=== PATIENT | female | born 1980 | race Caucasian/White ===

== ENCOUNTER 2025-06-06 09:24 | Inpatient (IN) | payer OTHER, SELFPAY ==
[2025-06-06] VITALS (20 sets, daily range): BP systolic 92–133; BP diastolic 51–70; PULSE 88–134; RESP 16–29; TEMP 36.6–38.9; O2SAT 94–100; BMI 39.4; BMI 39.6
--- NOTE | 2025-06-06 09:40 | EX.ED.DYSGE1 ---
HPI History of Present Illness Chief Complaint: Fever Informant: patient Onset/Context/Timing Onset: Today Context: Sudden Onset Timing: Continuous Quality: Fever Location: Generalized Worsened by: Nothing Relieved by: Nothing Narrative Narrative: Patient presents with a fever that began today. Patient states it began rather suddenly. Patient states it has been constant. Patient states she has had some nausea and vomiting. Patient states she had chemotherapy yesterday. Patient states she called the on-call oncologist and was told to come to the emergency department. Patient states she checked her blood sugar at home and it was in the 80s. Patient states she tried to eat some candy but vomited that back up. Patient denies any pain in her chest. Patient states she feels her heart racing. Patient denies any shortness of breath or cough. [facility] Medical History (Updated 06/06/25 @ 13:[address] Malcolm Lucio DO) Colostomy in place Colon cancer Home Medications ?Medication ?Instructions ?Recorded ?Last Taken ?Type loratadine 10 mg tablet (Claritin) 10 mg PO DAILY 06/06/25 06/05/25 History olanzapine 5 mg tablet 5 mg PO QHS 06/06/25 06/05/25 History omeprazole 20 mg tablet,delayed 20 mg PO DAILY 06/06/25 06/05/25 History release ondansetron HCl 8 mg tablet 8 mg PO Q8H PRN PRN nausea/vomiting 06/06/25 Unknown History potassium chloride 10 mEq 10 meq PO BID 06/06/25 06/05/25 History tablet,extended release prochlorperazine maleate 5 mg 5 mg PO Q8H PRN nausea and vomiting 06/06/25 06/05/25 History tablet Allergy/AdvReac Type Severity Reaction Status Date / Time ciprofloxacin (From Cipro) AdvReac HTN Verified 06/06/25 09:27 Surgical History Hx of colostomy Social History Smoking Status: Never smoker ROS ROS ED Constitutional Constitutional ED: Reports fever(s); Denies chills Eyes Eyes: Denies blurry vision or change in vision ENT ENT ED: Denies rhinorrhea or sore throat Cardiovascular Cardiovascular: Reports palpitations and racing heartbeat; Denies chest pain Respiratory/Chest Respiratory/Chest: Denies cough or dyspnea Gastrointestinal Gastrointestinal: Reports nausea and vomiting Genitourinary Genitourinary ED: Denies dysuria or hematuria Musculoskeletal Musculoskeletal: Denies back pain or neck pain Integumentary Denies abscess or rash Neurologic Neurologic: Reports weakness; Denies headache(s) Allergic/Immunologic Allergic/Immunologic ED: Denies mouth swelling or urticaria EXAM Physical Exam Const Vital Signs: 06/06/25 09:24 06/06/25 09:59 06/06/25 10:35 Temperature 101.2 F H 102.1 F H Temperature Source Oral Oral Pulse Rate 134 H 106 H Respiratory Rate 18 18 Respiratory Effort Normal Respiratory Pattern Normal Blood Pressure 99/66 94/52 L Blood Pressure Mean 77 66 Pulse Ox 98 98 Oxygen Delivery Method Room Air Room Air 06/06/25 12:00 06/06/25 12:25 06/06/25 12:53 Temperature 100 F H 99.7 F H Temperature Source Oral Pulse Rate 96 98 96 Respiratory Rate 22 H 18 16 Respiratory Effort Respiratory Pattern Blood Pressure 105/56 L 95/59 L 96/51 L Blood Pressure Mean 72 71 66 Pulse Ox 99 96 97 Oxygen Delivery Method Room Air Room Air Positive well nourished and well developed General Appearance ED: well developed and NAD HEENT Reports moist mucous membranes Neck supple and no JVD Resp normal respiratory effort and clear to auscultation bilaterally Cardio regular rate and regular rhythm GI non-tender and non-distended Palpation: soft Neuro oriented x3, CN's II-XII intact bilaterally and no sensory deficits noted Sensorium / Orientation: alert Motor Exam: strength 5/5 throughout Psych mental status grossly normal MDM MDM MDM Narrative Medical decision making narrative: Differential diagnosis includes neutropenic fever, sepsis, electrolyte abnormality, viral upper respiratory infection, pneumonia, bronchitis, gastroenteritis, pancreatitis, and dehydration. CBC will be obtained to assess for leukocytosis and anemia. Comprehensive metabolic profile will be obtained to assess for hepatic function, renal function, and electrolyte abnormality. Lipase will be obtained to assess for pancreatitis. PT with INR and PTT will be obtained to assess for coagulopathy. Serum lactate will be obtained to assess for sepsis. COVID-19, influenza, and RSV PCR will be obtained to assess for viral illness. Blood cultures will be obtained to assess for sepsis. Chest x-ray will be obtained to assess for pneumonia and bronchitis. History & Record Review Additional record(s) reviewed:: No prior records Lab Data Attestation: I reviewed the patient's lab results. Lab results narrative: CBC was reviewed. There is a leukocytosis of 27.7. Hemoglobin was 8.7 and hematocrit was 30.8. Lites were normal. Comprehensive metabolic profile was reviewed and was essentially within normal limits. Alkaline phosphatase was mildly elevated at 187. Serum lactate was reviewed and was elevated at 3.1. PT with INR and PTT were reviewed and were essentially within normal limits. Lipase was reviewed and was normal at 14. Urinalysis was reviewed. There are 5-10 epithelial cells. Leukocyte esterase was 100. There are 0-5 white blood cells and 0 bacteria. Labs: Laboratory Results - last 24 hr 06/06/25 06/06/25 10:12 11:55 WBC 27.7 H RBC 4.04 L Hgb 8.7 L Hct 30.8 L MCV 76.2 L MCH 21.5 L MCHC 28.2 L RDW Std Deviation 53.8 H RDW Coeff of Car 20.4 H Plt Count 338 MPV 10.4 Neut % (Auto) Not Reportable Absolute Neuts (auto) 27.7 H Absolute Lymphs (auto) 0.00 L Total Counted 100 Neutrophils % (Manual) 99 H Band Neutrophils % 1 Platelet Estimate ADEQUATE RBC Morphology N CYTIC Hypochromasia 1+ PT 14.3 INR 1.1 APTT 22.0 L Sodium 136 Potassium 3.3 Chloride 99 Carbon Dioxide 23.2 Anion Gap 13 BUN 12 Creatinine 0.68 L Estim Creat Clear Calc 119.66 Est GFR (MDRD) Non-Af 110 BUN/Creatinine Ratio 17.3 Glucose 127 H Lactic Acid 3.1 H* Calcium 8.5 Total Bilirubin 0.59 AST 27 ALT 17 Alkaline Phosphatase 187 H Total Protein 7.0 Albumin 3.8 Globulin 3.2 Albumin/Globulin Ratio 1.2 Lipase 14 Urine Color Yellow Urine Clarity Sl. Cloudy Urine pH 6.5 Ur Specific Clymer 1.010 Urine Protein 30 H Urine Glucose (UA) Normal Urine Ketones Negative Urine Occult Blood 10 H Urine Nitrite Negative Urine Bilirubin Negative Urine Urobilinogen Normal Ur Leukocyte Esterase 100 H Urine RBC 0 SEEN Urine WBC 0-5 SEEN Ur Squamous Epith Cells 5-10 SEEN Urine Bacteria 0 SEEN Urine Mucus 0 SEEN Radiography Diagnostic Testing: Clinical Impression(s) from Imaging Studies Chest X-Ray 06/06/25 09:54 IMPRESSION: Nodular opacities bilaterally, raising concern for metastatic disease. A follow-up CT is recommended to further evaluate. Reading Location: [facility] PA and lateral chest x-ray was obtained. There are 2 views. On my independent interpretation, lung wetzel showed nodular densities bilaterally. There is normal cardiac silhouette. Bony thorax is normal. There is no acute process noted. Radiologist also interpreted the x-ray and agrees. Management Discussion w/another healthcare provider: Hospitalist (Dr. Mahan) and Car Salesman (Dr. Lombardi) Treatment and Re-Evaluation :: Patient was given IV fluids and Tylenol. Given the patient's elevated lactate, patient was started on Zosyn and vancomycin. Case was discussed with Dr. Lombardi. He agrees with antibiotic treatment. He recommended admitting the patient to the hospital for IV antibiotics until cultures are resulted. Patient was advised of her findings. Patient is agreeable with the plan. Case was discussed with the hospitalist. She will admit the patient to ICU. Patient understood and was agreeable with the plan. All questions were answered. Discharge Plan Dx/Rx/DC Orders Clinical Impression: Febrile illness, Lactic acidosis, Colon cancer Disposition Disposition: Acute Care Hospital [facility]
--- NOTE | 2025-06-06 09:54 | RAD_ITS ---
PROCEDURE: CHEST PA AND LATERAL 06/06/2025 REASON FOR EXAM: FEVER. Vomiting since last night. Chemotherapy this past week. TECHNIQUE: Procedure Code: RADCXR Modality: DX Procedure: CHEST PA AND LATERAL COMPARISON: None. FINDINGS: LINES: Right chest port tip terminating at the cavoatrial junction. LUNGS AND PLEURA: Nodular densities in the bilateral upper lungs and right mid to lower lung, the largest approximately 1.3 cm. No pleural effusion or pneumothorax. HEART AND MEDIASTINUM: The heart size and mediastinal contours are normal. BONES: No acute osseous abnormality. Degenerative changes of the spine. RAD/Chest PA and Lateral IMPRESSION: Nodular opacities bilaterally, raising concern for metastatic disease. A follo w-up CT is recommended to further evaluate. Reading Location: [id number]
[2025-06-06 10:29] LABS: Hematocrit 30.8 % (37-47); Hemoglobin 8.7 g/dL (12.0-15.0); Mean Corp Hgb Conc 28.2 g/dL (32-36); Mean Corpuscular Volume 76.2 fL (81-99); Mean Platelet Vol. 10.4 fl (6.2-12.0); POSITIVE COUNT YES; POSITIVE DIFFERENTIAL YES; POSITIVE MORPHOLOGY YES; Platelet Count 338 K/mm3 (150-450); RBC Distribution Width CV 20.4 % (11.6-14.6); RBC Distribution Width SD 53.8 fl (35.1-43.9); Red Blood Count 4.04 M/mm3 (4.2-5.4); White Blood Count 27.7 K/mm3 (4.4-11.0)
[2025-06-06 10:30] LABS: Differential Indicated MANUAL DIFF
[2025-06-06] MEDS: 0.9% Normal Saline (1000mL) 1,000 ML 1000 ML IV (10:31)
[2025-06-06 10:44] LABS: Prothrombin Time (Protime)PT. 14.3 SECONDS (11.7-14.9)
[2025-06-06 10:45] LABS: Partial Thromboplast Time 22.0 Seconds (24.1-36.2)
[2025-06-06 10:52] LABS: Hypochromasia 1+; Neutrophil-Band 1 % (0-5); Neutrophil-Segmented 99 % (47-70); Red Cell Morphology N CYTIC NORMAL (NORM C&C); Total Cells Counted 100 (MANUAL DIFF)
[2025-06-06 10:57] LABS: Lipase 14 U/L (13-75)
[2025-06-06 11:00] LABS: AST(SGOT) 27 U/L (<=31); Alanine Aminotransfer ALT/SGPT 17 U/L (<=34); Albumin, Serum 3.8 g/dL (3.5-5.0); Alkaline Phosphatase 187 U/L (35-104); Anion Gap 13 (5-15); BUN 12 mg/dL (4-19); BUN/Creat Ratio 17.3 RATIO (10-20); Calcium,Total 8.5 mg/dL (7.6-11.0); Carbon Dioxide 23.2 mmol/L (21.0-32.0); Chloride 99 mmol/L (98-108); Estimated Creatinine Clearance 119.66 ml/min (50-250); Globulin 3.2 g/dL (2.2-4.2); Glucose 127 mg/dL (70-99); Potassium 3.3 mmol/L (3.3-5.1)
--- OUTSIDE RECORDS SUMMARY | 2025-06-06 11:23 | XMS RPT_ITS | CCD ---
Author Organization [facility] CliniSyoh Care Team Providers Care Early Learning Teacher Name Role Phone Connie FERMIN, Abdulkadir E Unavailable Abdulkadir Rosales PA-C E Unavailable Jayden EDWARD, Jesus Bolton Unavailable Christine Arrieta PA-C Unavailable Unavailable Unavailable Gastroenterology Provider Unavailable Geno Barksdale MA Unavailable Unavailable JERI EDWARD, DR JAMES Bolton Primary Care Physician Adrianne Rounding NurseRicki Unavailable ABDULKADIR Koroma PA-C Primary Care Physician ABDULKADIR ROSALES PA-C Primary Care Unavailab josie EASTMAN MD, DR NOEL Pérez Attending Rose Michaud MD, Zac Villeda Unavailable Graciela Leong LPN Unavailable Unavailable Primary Care Provider Unavailabl e ROSA LOVE CNP Admitting Unavaila ABDULKADIR Cunningham Consulting Unavailable ROSA LOVE CNP Attending Unavaila ROSA Colon CNP Primary Care Unavaila ble PROVIDER, UNKNOWN Consulting Unavailable ARLENE RODRIGEZ MD Primary Care Unavailable ARLENE RODRIGEZ MD Attending Unavailable ABDULKADIR ROSALES Consulting Unavailable ARLENE RODRIGEZ MD Admitting Unavailable PROVIDER, UNKNOWN Consulting Unavailable NOEL EASTMAN Primary Care Unavailable NOEL EASTMAN Attending Unavailable ABDULKADIR ROSALES Consulting Unavailable NOEL EASTMAN Admitting Unavailable PROVIDER, UNKNOWN Consulting Unavailable JAMES WILCOX Referring Unavailable JAMES WILCOX Consulting Unavailable O'HERNADEZ, KAREN BIT GATHERER Primary Care Unavailable O'HERNADEZ, KAREN BIT GATHERER Admitting Unavailable O'HERNADEZ, KAREN BIT GATHERER Attending Unavailable PROVIDER, UNKNOWN Consulting Unavailable PROVIDER, UNKNOWN Consulting Unavailable PROVIDER, UNKNOWN Consulting Unavailable VACCARIELLO, JAMES Consulting Unavailable O'HERNADEZ, KAREN BIT GATHERER Attending Unavailable O'HERNADEZ, KAREN BIT GATHERER Primary Care Unavailable O'HERNADEZ, KAREN BIT GATHERER Admitting Unavailable PROVIDER, UNKNOWN Consulting Unavailable PROVIDER, UNKNOWN Consulting Unavailable PROVIDER, UNKNOWN Consulting Unavailable VACCARIELLO, JAMES Referring Unavailable VACCARIELLO, JAMES Consulting Unavailable O'HERNADEZ, KAREN BIT GATHERER Primary Care Unavailable O'HERNADEZ, KAREN BIT GATHERER Admitting Unavailable O'HERNADEZ, KAREN BIT GATHERER Attending Unavailable PROVIDER, UNKNOWN Consulting Unavailable PROVIDER, UNKNOWN Consulting Unavailable PROVIDER, UNKNOWN Consulting Unavailable ABDULKADIR ROSALES Consulting Unavailable KB GALAN CNP Admitting Unavailable KB GALAN CNP Attending Unavailable ANGELIA KBJUANCARLOS MENG Primary Care Unavailable PROVIDER, UNKNOWN Consulting Unavailable CHRIS GROVE Admitting Unavailable VACCARIELLO, JAMES Consulting Unavailable CHRIS GROVE Attending Unavailable CHRIS GROVE Primary Care Unavailable PROVIDER, UNKNOWN Consulting Unavailable PROVIDER, UNKNOWN Consulting Unavailable PROVIDER, UNKNOWN Consulting Unavailable JUSTICE PEREA Referring Unavailable JUSTICE PEREA Attending Unavailable PAULO AVILA Attending Unava ilable Unavailable Primary Care Provider UnavailBONIFACIO Manzanares Attending Unavailable ROSEANN LUNDBERG Referring Unavailable ABDULKADIR ROSALES E Primary Care Unavailable CONNIE JEWELLC, LUKE Primary Care Unavailab josie LUNDBERG MD, DR NASCIMENTO Attending Unavailab josie JEWELLC, LUKE Primary Care Unavailab CASIE Hernandez Attending Unavailable CONNIE TAMIKA-C, LUKE Primary Care Unavailab ZACH Brush PA-C Attending Lili IRMA Rodriguez DO Consulting Unavailable FRANCES LAROSE Attending Unavai isabella JEWELLC, LUKE Primary Care Unavailab josie ROSALES PA-C, LUKE Primary Care Unavailab ARLENE Dominguez MD Attending Unavailab josie ROSALES PA-C, LUKE Primary Care UnavailARLENE Guardado MD Attending Unavailab josie JOSE MD, DR GRAYSON Consulting Unavailable CONNIE JEWELLC, LUKE Primary Care Unavailab ARLENE Dominguez MD Attending Unavailab le CONNIE PA-C, LUKE Primary Care Unavailab josie LUNDBERG MD, DR NASCIMENTO Attending Unavailab le CONNIE PA-C, LUKE Primary Care Unavailab josie LUNDBERG MD, DR NASCIMENTO Attending Unavailab josie LUNDBERG MD, DR NASCIMENTO Attending Unavailab le CONNIE PA-C, LUKE Primary Care Unavailab josie LUNDBERG MD, DR NASCIMENTO Attending Unavailab le CONNIE PA-C, LUKE Primary Care Unavailab josie LUNDBERG MD, DR NASCIMENTO Attending Unavailab le CONNIE PA-C, LUKE Primary Care Unavailab josie LUNDBERG MD, DR NASCIMENTO Attending Unavailab le CONNIE PA-C, LUKE Primary Care Unavailab josie LUNDBERG MD, DR NASCIMENTO Attending Unavailab le CONNIE PA-C, LUKE Primary Care Unavailab le CONNIE PA-C, LUKE Primary Care Unavailab josie LUNDBERG MD, DR NASCIMENTO Attending Unavailab le CONNIE PA-C, LUKE Primary Care Unavailab josie LUNDBERG MD, DR NASCIMENTO Attending Unavailab josie ARROYOSVP RESEARCH AND STRATEGIC ANALYSIS, FRANCES Roque Attending Unavai lable CONNIE PA-C, LUKE Primary Care Unavailab le CONNIE PA-C, LUKE Primary Care Unavailab josie LUNDBERG MD, DR NASCIMENTO Attending Unavailab le CONNIE PA-C, LUKE Primary Care Unavailab josie LUNDBERG MD, DR NASCIMENTO Attending Unavailab le CONNIE PA-C, LUKE Primary Care Unavailab DEANNA Anthony Attending Unavailable CONNIE PA-C, LUKE Primary Care Unavailab josie LUNDBERG MD, DR NASCIEMNTO Attending Unavailab josie ARROYOSVP RESEARCH AND STRATEGIC ANALYSIS, FRANCES Roque Attending Unavai labjosie CONNIE PA-C, LUKE Primary Care Unavailab josie LUNDBERG MD, DR NASCIMENTO Attending Unavailab le CONNIE PA-C, LUKE Primary Care Unavailab le CONNIE PA-C, LUKE Primary Care Unavailab josie LUNDBERG MD, DR NASCIMENTO Attending Unavailab josie LUNDBERG MD, DR NASCIMENTO Attending Unavailab le CONNIE PA-C, LUKE Primary Care Unavailab le CONNIE PA-C, LUKE Primary Care Unavailab josie LUNDBERG MD, DR NASCIMENTO Attending Unavailab josie LUNDBERG MD, DR NASCIMENTO Attending Unavailab le CONNIE PA-C, LUKE Primary Care Unavailab le CONNIE PA-C, LUKE Primary Care Unavailab ARLENE Dominguez MD Attending Unavailab le CONNIE PA-C, LUKE Primary Care Unavailab josie LUNDBERG MD, DR NASCIMENTO Attending Unavailab le CONNIE PA-C, LUKE Primary Care Unavailab ARLENE Dominguez MD Attending Unavailab ARLENE Dominguez MD Attending Unavailab le CONNIE PA-C, LUKE Primary Care Unavailab le CONNIE PA-C, LUKE Primary Care Unavailab ARLENE Dominguez MD Attending Unavailab le CONNIE PA-C, LUKE Primary Care Unavailab IRMA Mayo DO Consulting ARLENE Andino MD Attending Unavailab le CONNIE PA-C, LUKE Primary Care Unavailab ARLENE Dominguez MD Attending Unavailab le CONNIE PA-C, LUKE Primary Care Unavailab ARLENE Dominguez MD Attending Unavailab le CONNIE PA-C, LUKE Primary Care Unavailab ARLENE Dominguez MD Attending Unavailab le CONNIE PA-C, LUKE Primary Care Unavailab josie EASTMAN MD, DR NOEL Pérez Attending Unavai lable CONNIE PA-C, LUKE Primary Care Unavailab josie LUNDBERG MD, DR NASCIMENTO Attending Unavailab le CONNIE PA-C, LUKE Primary Care Unavailab josie LUNDBERG MD, DR NASCIMENTO Attending Unavailab le CONNIE PA-C, LUKE Primary Care Unavailab josie LUNDBERG MD, DR NASCIMENTO Attending Unavailab le CONNIE PA-C, LUKE Primary Care Unavailab josie LUNDBERG MD, DR NASCIMENTO Attending Unavailab le CONNIE PA-C, LUKE Primary Care Unavailab le CONNIE PA-C, LUKE Attending Unavailab le CONNIE PA-C, LUKE Primary Care Unavailab josie LUNDBERG MD, DR NASICMENTO Attending Unavailab le CONNIE PA-C, LUKE Primary Care Unavailab josie LUNDBERG MD, DR NASCIMENTO Attending Unavailab le CONNIE PA-C, LUKE Primary Care Unavailab josie LUNDBERG MD, DR NASCIMENTO Attending Unavailab le CONNIE PA-C, LUKE Primary Care Unavailab josie LUNDBERG MD, DR NASCIMENTO Attending Unavailab le CONNIE PA-C, LUKE Primary Care Unavailab josie LUNDBERG MD, DR NASCIMENTO Attending Unavailab le CONNIE PA-C, LUKE Primary Care Unavailab josie LUNDBERG MD, DR NASCIMENTO Attending Unavailab le CONNIE PA-C, LUKE Primary Care Unavailab josie LUNDBERG MD, DR NASCIMENTO Attending Unavailab le CONNIE PA-C, LUKE Primary Care Unavailab josie LUNDBERG MD, DR NASCIMENTO Attending Unavailab le CONNIE PA-C, LUKE Primary Care Unavailab josie LUNDBERG MD, DR NASCIMENTO Attending Unavailab le CONNIE PA-C, LUKE Primary Care Unavailab josie LUNDBERG MD, DR NASCIMENTO Attending Unavailab le CONNIE PA-C, LUKE Primary Care Unavailab josie LUNDBERG MD, DR NASCIMENTO Attending Unavailab josie LUNDBERG MD, DR NASCIMENTO Attending Unavailab le CONNIE PA-C, LUKE Primary Care Unavailab le CONNIE PA-C, LUKE Primary Care Unavailab josie LUNDBERG MD, DR NASCIMENTO Attending Unavailab le CONNIE PA-C, LUKE Primary Care Unavailab josie LUNDBERG MD, DR NASCIMENTO Attending Unavailab josie LUNDBERG MD, DR NASCIMENTO Attending Unavailab le CONNIE PA-C, LUKE Primary Care Unavailab le CONNIE PA-C, LUKE Primary Care Unavailab josie LUNDBERG MD, DR NASCIMENTO Attending Unavailab le CONNIE PA-C, LUKE Primary Care Unavailab josie LUNDBERG MD, DR NASCIMENTO Attending Unavailab le CONNIE PA-C, LUKE Primary Care Unavailab josie LUNDBERG MD, DR NASCIMENTO Attending Unavailab le CONNIE PA-C, LUKE Primary Care Unavailab josie LUNDBERG MD, DR NASCIMENTO Attending Unavailab le CONNIE PA-C, LUKE Primary Care Unavailab josie LUNDBERG MD, DR NASCIMENTO Attending Unavailab le CONNIE PA-C, LUKE Primary Care Unavailab josie LUNDBERG MD, DR NASCIMENTO Attending Unavailab josie LUNDBERG MD, DR NASCIMENTO Attending Unavailab le CONNIE PA-C, LUKE Primary Care Unavailab le CONNIE PA-C, LUKE Primary Care Unavailab josie LUNDBERG MD, DR NASCIMENTO Attending Unavailab le CONNIE PA-C, LUKE Primary Care Unavailab josie LUNDBERG MD, DR NASCIMENTO Attending Unavailab le CONNIE PA-C, LUKE Primary Care Unavailab josie LUNDBERG MD, DR NASCIMENTO Attending Unavailab le CONNIE PA-C, LUKE Primary Care Unavailab josie LUNDBERG MD, DR NASCIMENTO Attending Unavailab le CONNIE PA-C, LUKE Primary Care Unavailab josie LUNDBERG MD, DR NASCIMENTO Attending Unavailab le CONNIE PA-C, LUKE Primary Care Unavailab josie LUNDBERG MD, DR NASCIMENTO Attending Unavailab le CONNIE PA-C, LUKE Primary Care Unavailab josie LUNDBERG MD, DR NASCIMENTO Attending Unavailab le CONNIE PA-C, LUKE Primary Care Unavailab josie LUNDBERG MD, DR NASCIMENTO Attending Unavailab le CONNIE PA-C, LUKE Primary Care Unavailab josie LUNDBERG MD, DR NASCIMENTO Attending Unavailab le CONNIE PA-C, LUKE Primary Care Unavailab josie LUNDBERG MD, DR NASCIMENTO Attending Unavailab le CONNIE PA-C, LUKE Primary Care Unavailab josie LUNDBERG MD, DR NASCIMENTO Attending Unavailab le CONNIE PA-C, LUKE Primary Care Unavailab josie LUNDBERG MD, DR NASCIMENTO Attending Unavailab le CONNIE PA-C, LUKE Primary Care Unavailab josie LUNDBERG MD, DR NASCIMENTO Attending Unavailab le CONNIE PA-C, LUKE Primary Care Unavailab josie EPDERSEN, FRANCES Roque Attending Unavajak ALMENDAREZSTETLER PA-C, LUKE Primary Care Unavailab josie ARGUELLO MD, HELEN Consulting Unavailable ARLENE RODRIGEZ MD Attending Unavailab josie IRIZARRY MD, IRMA Roque Consulting Unavailable CONNIE PA-C, LUKE Primary Care Unavailab josie IRIZARRY MD, IRMA Roque Consulting Unavailable RODRIGEZ MD, ARLENE Valdez Attending [facility] josie ROSALES PA-C, [facility] Daisy EDWARD, DR STRONG Attending Unavailable PATRICIA EDWARD, VANESSA Admitting Unavailable SHRUTHI CAMPBELL, IRMA Hyde Consulting Unavailable WEST FOOTE Consulting Unavailable SANDY SEGURA MD, DR SANTOS CAZARES Consulting Unavailgerardo LUNDBERG MD, DR NASCIMENTO Consulting [facility] COULTER DO, LYRIC Consulting Unavailgege PEÑA MD, LELE Consulting [facility] CONNIE FERMIN, [facility] David EDWARD, DR NASCIMENTO Attending [facility] josie ROSALES PA-C, [facility] Angelica EDWARD, ARLENE Valdez Attending [facility] David EDWARD, DR NASCIMENTO Attending [facility] josie ROSALES PA-C, [facility] David EDWARD, DR NASCIMENTO Attending [facility] CONNIE FEMRIN, [facility] josie Allergies Allergy Classification Reported Allergen(s) Allergy Type Date of Onset Reaction(s) Facility (20 sources) Ciprofloxacin; Translations: [ciprofloxacin] Drug Allergy 04-30-2025 Insomnia, Nausea, High Blood Pressure, Tachycardia [facility] Medications Current Medications Medication Drug Class(es) Dates Sig (Normalized) Sig (Original) acetaminophen 325 mg / HYDROcodone bitartrate 5 mg oral tablet (2 sources) Opioid Agonist Start: 07-23-2024 End: 07-30-2024 take 1 tablet by mouth every six hours as needed for pain Stanton 325- 5 mg oral tablet Dose = 1 tab(s), Oral, q6h, PRN for pain, X 7 day(s), # 24 tab(s), 0 Refill(s), Pharmacy: [facility], After care, 160, cm, 07/23/24 11:45:00 EST, Height, 101, kg, 07/23/24 11:45:00 EST, Dosing Weight Start Date: 07/23/24 Stop Date: 07/30/24 Status: Ordered Quantity: 24.0 Unit: tab(s) Repeat number: 1 Indication: Encounter for other specified aftercare cefdinir 300 mg oral capsule (10 sources) Cephalosporin Antibacterial Start: 09-15-2024 cefdinir 300 mg oral capsule Dose : 300 mg = 1 cap(s), TAKE ONE CAPSULE BY MOUTH TWICE DAILY Start Date: 09/15/24 Status: Ordered Repeat number: 1 Start: 04-13-2024 cefdinir 300 m g oral capsule Dose : 300 mg = 1 cap(s), 0 Refill(s), 111.4 Start Date: 04/13/24 Status: Ordered Start: 03-16-2024 End: 04-06-2024 cefdinir 300 mg oral capsule Dose : 300 mg = 1 cap(s), Oral, q12h, X 21 day(s), # 42 cap(s), 0 Refill(s), 04/06/24 12:11:00 PM EDT, Pharmacy: [facility], 160, cm, 03/09/24 3:39:00 EDT, Height, 113, kg, 03/09/24 3:39:00 EDT, Dosing Weight Start Date: 03/16/24 Stop Date: 04/06/24 Status: Ordered ciprofloxacin 500 mg oral tablet (1 source) Quinolone Antimicrobial Start: 08-31-2024 End: 09-07-2024 Cipro 500 mg oral tablet Dose : 500 mg = 1 tab(s), Oral, q12h, X 7 day(s), # 14 tab(s), 0 Refill(s), 09/07/24 9:41:00 AM EDT, Pharmacy: [facility], 160, cm, 08/19/24 17:35:00 EST, Height, 99.8, kg, 08/19/24 17:35:00 EST, Dosing Weight Start Date: 08/31/24 Stop Date: 09/07/24 Status: Ordered Quantity: 14.0 Unit: tab(s) Repeat number: 1 dexamethasone 4 mg oral tablet (7 sources) Corticosteroid Start: 03-09-2025 dexAMETHasone 4 mg oral tablet Dose : 8 mg = 2 tab(s), Oral, qDay, take 2 tablets on Saturday and Saturday following chemotherapy, will use this cycle and next., # 8 tab(s), 0 Refill(s), Pharmacy: [facility], 160, cm, 03/09/25 9:29:00 EDT, Height, kg, 03/09/25 9:04:00 EDT, Dosing Weight Start Date: 03/09/25 Status: Ordered Medication Dispense Status: Completed Quantity: 8.0 Unit: tab(s) Total Allowed Fills: 1 Fills Dispensed: 0 loratadine 10 mg oral tablet (20 sources) Start: 04-19-2025 Claritin 10 mg oral tablet Dose : 10 mg = 1 tab(s), Oral, qAM, # 30 tab(s), 2 Refill(s) Start Date: 04/19/25 Status: Ordered Medication Dispense Status: Completed Quantity: 30.0 Unit: tab(s) Total Allowed Fills: 1 Fills Dispensed: 0 Start: 03-30-2025 Claritin qDay, 0 Refill(s) Start Date: 03/30/25 Status: Ordered Medication Dispense Status: Completed Total Allowed Fills: 1 Fills Dispensed: 0 Start: 11-03-2024 loratadine 10 mg oral tablet Dose : 10 mg = 1 tab(s), Oral, qDay, # 30 tab(s), 0 Refill(s) Start Date: 11/03/24 Status: Ordered Medication Dispense Status: Completed Quantity: 30.0 Unit: tab(s) Total Allowed Fills: 1 Fills Dispensed: 0 metroNIDAZOLE 500 mg oral tablet (11 sources) Nitroimidazole Antimicrobial Start: 09-15-2024 metroNIDAZOLE 500 mg oral tablet Dose : 500 mg = 1 tab(s), TAKE ONE TABLET BY MOUTH EVERY 8 HOURS FOR 7 DAYS. Additional 7 DAYS AFTER finishing initial course. Start Date: 09/15/24 Status: Ordered Repeat number: 1 Start: 08-31-2024 End: 09-07-2024 metroNIDAZOLE 500 mg oral ta blet Dose : 500 mg = 1 tab(s), Oral, q8hr, X 7 day(s), # 21 tab(s), 0 Refill(s), 09/07/24 9:42:00 AM EDT, Pharmacy: [facility], 160, cm, 08/19/24 17:35:00 EST, Height, 99.8, kg, 08/19/24 17:35:00 EST, Dosing Weight Start Date: 08/31/24 Stop Date: 09/07/24 Status: Ordered Quantity: 21.0 Unit: tab(s) Repeat number: 1 Start: 04-13-2024 metroNIDAZOLE 500 mg oral tablet Dose : 500 mg = 1 tab(s), 0 Refill(s), 111.4 Start Date: 04/13/24 Status: Ordered Start: 03-16-2024 End: 04-06-2024 metroNIDAZOLE 500 mg oral ta blet Dose : 500 mg = 1 tab(s), Oral, TID, X 21 day(s), # 63 tab(s), 0 Refill(s), 04/06/24 12:11:00 PM EDT, Pharmacy: [facility], 160, cm, 03/09/24 3:39:00 EDT, Height, 113, kg, 03/09/24 3:39:00 EDT, Dosing Weight Start Date: 03/16/24 Stop Date: 04/06/24 Status: Ordered OLANZapine 5 mg oral tablet (9 sources) Atypical Antipsychotic Start: 03-16-2025 ZyPREXA 5 mg oral tablet Dose : 5 mg = 1 tab(s), Oral, Daily, take at bedtime, # 30 tab(s), 1 Refill(s), Pharmacy: [facility] 160, cm, 03/11/25 12:01:00 EDT, Height, kg, 03/09/25 10:30:00 EDT, Dosing Weight Start Date: 03/16/25 Status: Ordered Medication Dispense Status: Completed Quantity: 30.0 Unit: tab(s) Total Allowed Fills: 2 Fills Dispensed: 0 omeprazole 20 mg delayed release oral capsule (20 sources) Proton Pump Inhibitor Start: 04-02-2024 omeprazo le 20 mg oral delayed release capsule Dose : 20 mg = 1 cap(s), Oral, qAM, 0 Refill(s) Start Date: 04/02/24 Status: Ordered Medication Dispense Status: Completed Total Allowed Fills: 1 Fills Dispensed: 0 Start: 03-09-2024 take 1 dose by mouth once rita y PriLOSEC OTC Dose : 40 mg =, Oral, qDay, patient buys OTC, 0 Refill(s) Start Date: 03/09/24 Status: Ordered take 1 tablet by daniel once daily before mealtime omeprazole OTC (PriLOSEC OTC) 20 mg EC tablet Take 1 tablet (20 mg) by mouth once daily in the morning. Take before meals. Do not crush, chew, or split. Active ondansetron 8 mg oral tablet (20 sources) Serotonin-3 Receptor Antagonist Start: 2024 Zofran 8 mg oral tablet Dose : 8 mg = 1 tab(s), Oral, q8h, PRN Nausea/Vomiting, # 30 tab(s), 1 Refill(s), Pharmacy: [facility], Adenocarcinoma of sigmoid colon, 160, cm, 07/17/24 9:00:00 EST, Height, kg, 07/17/24 9:00:00 EST, Dosing Weight Start Date: 07/20/24 Status: Ordered Medication Dispense Status: Completed Quantity: 30.0 Unit: tab(s) Total Allowed Fills: 2 Fills Dispensed: 0 Indications: Malignant neoplasm of sigmoid colon; potassium chloride 20 meq oral tablet (5 sources) Start: 03-23-2025 potassium chloride 20 mEq oral tablet, extended release Dose : 20 mEq = 1 tab(s), Oral, qDay, Take with food, # 30 tab(s), 0 Refill(s), Pharmacy: [facility] Adenocarcinoma of sigmoid colon, 160, cm, 03/23/25 10:00:00 EDT, Height, kg, 03/23/25 10:00:00 EDT, Dosing Weight Start Date: 03/23/25 Status: Ordered Medication Dispense Status: Completed Quantity: 30.0 Unit: tab(s) Total Allowed Fills: 1 Fills Dispensed: 0 Indications: Malignant neoplasm of sigmoid colon; Probiotic (20 sources) Start: 09-22-2024 take 1 capsule by mouth once daily Probiotic 1cap, Oral, qDay, 0 Refill(s) Start Date: 09/22/24 Status: Ordered Repeat number: 1 Start: 03-25-2024 take 1 tablet by daniel th once daily Probiotic Dose = 1 tab(s), Oral, qDay, 0 Refill(s) Start Date: 03/25/24 Status: Ordered Repeat number: 1 Start: 03-25-2024 Probiotic 0 Re fill(s) Start Date: 03/25/24 Status: Ordered Repeat number: 1 Start: 03-25-2024 Probiotic 0 Re fill(s) Start Date: 03/25/24 Status: Ordered prochlorperazine 5 mg oral tablet (20 sources) Phenothiazine Start: 03-16-2025 prochlorperazi ne 5 mg oral tablet Dose : 5 mg = 1 tab(s), Oral, TID, PRN Nausea/Vomiting, # 90 tab(s), 0 Refill(s), Pharmacy: [facility], 160, cm, 03/11/25 12:01:00 EDT, Height, kg, 03/09/25 10:30:00 EDT, Dosing Weight Start Date: 03/16/25 Status: Ordered Medication Dispense Status: Completed Quantity: 90.0 Unit: tab(s) Total Allowed Fills: 1 Fills Dispensed: 0 Start: 03-09-2025 prochlorperazi ne 5 mg oral tablet Dose : 5 mg = 1 tab(s), Oral, TID, okay to alternate zofran and prochlorperazine., # 30 tab(s), 0 Refill(s), Pharmacy: [facility], 160, cm, 03/09/25 9:29:00 EDT, Height, kg, 03/09/25 9:04:00 EDT, Dosing Weight Start Date: 03/09/25 Status: Ordered Medication Dispense Status: Completed Quantity: 30.0 Unit: tab(s) Total Allowed Fills: 1 Fills Dispensed: 0 Start: 12-07-2024 prochlorperazi ne 5 mg oral tablet Dose : 5 mg = 1 tab(s), Oral, TID, okay to alternate zofran and prochlorperazine., # 30 tab(s), 0 Refill(s), Pharmacy: [facility] 160, cm, 12/03/24 12:12:00 EDT, Height, kg, 12/01/24 10:19:00 EDT, Dosing Weight Start Date: 12/07/24 Status: Ordered Medication Dispense Status: Completed Quantity: 30.0 Unit: tab(s) Total Allowed Fills: 1 Fills Dispensed: 0 Completed/Discontinued Medications Medication Drug Class(es) Dates Sig (Normalized) Sig (Original) amoxicillin 500 mg oral tablet (20 sources) Penicillin-class Antibacterial Start: 12-17-2012 End: 12-27-2012 take 1 tablet by mouth three times daily AMOXICILLIN, 500MG (Oral Tablet) ; 1 Tab three times daily for 10 days Quantity: 30 {Tab} Refills: 0 Ordered: 17-Dec-2012 ZANDER Arrieta Start: 17-Dec-2012 End: 27-Dec-2012 Status: Inactive azithromycin 500 mg oral tablet (20 sources) Macrolide Antimicrobial Start: 10-14-2015 End: 10-17-2015 take 1 tablet by mouth once daily AZITHROMYCIN, 500MG (Oral Tablet) ; 1 (one) Tablet daily for 3 days Quantity: 3 {Tablet} Refills: 0 Ordered: 14-Oct-2015 MD Jesus Mercado Start: 14-Oct-2015 End: 17-Oct-2015 Status: Inactive codeine phosphate 2 mg/ml / promethazine hydrochloride 1.25 mg/ml oral solution (20 sources) Opioid Agonist, Phenothiazine Start: 10-14-2015 End: 09-16-2017 take 2 [tsp_us] by mouth every four hours as needed for cough Promethazine-Cod eine 6.25-10 MG/5ML Oral Syrup ; 2 (two) teaspoon every four hours PRN cough or wheeze for 0 days Quantity: 4 {Ounce} Refills: 0 Ordered: 16-Sep-2017 YANETH Leong Start: 14-Oct-2015 End: 16-Sep-2017 Status: Inactive gadoxetate disodium (Eovist) injection 2.6 mmol (1 source) Start: 08-01-2024 End: 08-01-2024 2.6 mmol (0.1 mL/kg 104 kg), intravenous, Once in imaging, Starting on 08/01/24 at 0935, For 1 dose Problems Active Problems Problem Classification Problem Date Documented Da te Episodic/Chronic Abdominal pain (1 source) Lower abdominal pain; Translations: [Lower abdominal pain, unspecified] Episodic Acute bronchitis (20 sources) Acute bronchitis; Translations: [Acute bronchitis, unspecified] 10-14-2015 Episodic Acute myocardial infarction (1 source) Myocardial infarction due to demand ischemia; Translations: [Myocardial infarction type 2] Chronic Cancer of colon (20 sources) Secondary malignant neoplasm of liver; Translations: [Malignant neoplasm of colon, unspecified] Onset: 08-01-2024 Chronic Complications of surgical procedures or medical care (1 source) 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; Translations: [Anemia due to antineoplastic chemotherapy] Chronic Deficiency and other anemia (20 sources) Anemia; Translations: [Anemia, unspecified] 03-20-2024 Episodic Diseases of white blood cells (2 sources) Leukocytosis; Translations: [Elevated white blood cell count, unspecified] Onset: Chronic Diverticulosis and diverticulitis (20 sources) Diverticulitis of intestine; Translations: [Diverticulitis of intestine, part unspecified, with perforation and abscess without bleeding] 03-20-2024 Chronic E Codes: Adverse effects of medical drugs (1 source) Adverse reaction to drug; Translations: [Adverse effect of antineoplastic and immunosuppressive drugs, initial encounter] Episodic Esophageal disorders (1 source) Gastroesophageal reflux disease without esophagitis; Translations: [Gastro-esophageal reflux disease without esophagitis] Chronic Fever of unknown origin (1 source) Fever; Translations: [Fever, unspecified] Episodic Fluid and electrolyte disorders (1 source) Hypokalemia; Translations: [Hypokalemia] Episodic Genitourinary symptoms and ill-defined conditions (20 sources) Urinary tract obstruction; Translations: [Obstructive and reflux uropathy, unspecified] 03-20-2024 Episodic Immunizations and screening for infectious disease (10 sources) Requires measles, mumps and rubella vaccination; Translations: [Encounter for immunization] 07-06-2024 Episodic Other aftercare (20 sources) Post-discharge follow-up; Translations: [Encounter for follow-up examination after completed treatment for conditions other than malignant neoplasm] 03-20-2024 Episodic Other aftercare (1 source) Procedure carried out on subject; Translations: [Encounter for other specified aftercare] Onset: 5 Episodic Other circulatory disease (6 sources) H/O: artificial organ/tissue; Translations: [Presence of other vascular implants and grafts] Onset: Chronic Other circulatory disease (1 source) Presence of other vascular implants and grafts; Translations: [Presence of other vascular implants and grafts] Onset: 5 Chronic Other diseases of kidney and ureters (20 sources) Hydronephrosis 04-13-2024 Episodic Other gastrointestinal disorders (6 sources) Colostomy present; Translations: [Colostomy status] Onset: 5 Chronic Other gastrointestinal disorders (1 source) Colostomy status; Translations: [Colostomy status] Onset: 5 Chronic Other gastrointestinal disorders (20 sources) Heartburn 03-25-2024 Episodic Other gastrointestinal disorders (1 source) Diarrhea; Translations: [Diarrhea, unspecified] Episodic Other gastrointestinal disorders (1 source) Fistula of intestine; Translations: [Fistula of intestine] Onset: 5 Episodic Other liver diseases (1 source) Abscess of liver; Translations: [Abscess of liver] Episodic Other non-traumatic joint disorders (20 sources) Hip pain 08-13-2024 Episodic Other nutritional; endocrine; and metabolic disorders (1 source) Body mass index 40+ - severely obese; Translations: [Body mass index (BMI) 40.0-44.9, adult] Chronic Other nutritional; endocrine; and metabolic disorders (1 source) Obesity; Translations: [Obesity, unspecified] Chronic Other nutritional; endocrine; and metabolic disorders (1 source) H/O: Disorder; Translations: [Personal history of other endocrine, nutritional and metabolic disease] Episodic Peritonitis and intestinal abscess (1 source) Abscess of peritoneum; Translations: [Peritoneal abscess] Episodic Phlebitis; thrombophlebitis and thromboembolism (20 sources) H/O: Deep vein thrombosis; Translations: [History of thromboembolism of vein] 03-25-2024 Episodic Comment on above: 2006 AFTER CHILDBIRT H, RIGHT LEG X2 Residual codes; unclassified (20 sources) Device in situ 12-29-2024 Episodic Secondary malignancies (3 sources) Secondary malignant neoplasm of liver and intrahepatic bile duct; Translations: [Secondary malignant neoplasm of liver and intrahepatic bile duct (Multi)] Onset: 5 Chronic Secondary malignancies (1 source) Secondary malignant neoplasm of unspecified lung; Translations: [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 Date of Admission: 03.09.24. Date of Discharge: 03.16.24. The patient was hospitalized for diverticulitis. New medications include cefdinir 300mg every 12 hrs for 21 days (metronidazole 500mg 1 tab mouth 3x a day for 21 days). Patient did not have any consultations ordered while in the hospital. No post hospital therapies were ordered. Patient was discharged to home. Note for Follow up from hospital stay: Patient said she is having some issues with her drain, she feels as though when the tubing of the drain is flushed with saline there is minimal return once the valve has been opened. She also notes some leakage that she believed occurred following a flush yesterday. 03-20-2024 Unclassified (20 sources) Neutropenia due to and following chemotherapy 09-18-2024 Urinary tract infections (1 source) Urinary tract infectious disease; Translations: [Urinary tract infection, site not specified] Episodic Past or Other Problems Problem Classification Problem Date Documented Da te Episodic/Chronic Gastrointestinal hemorrhage (2 sources) Melena; Translations: [Melena] Onset: 06-08-2024 Episodic Nonmalignant breast conditions (1 source) Other specified disorders of breast; Translations: [Other specified disorders of breast] Onset: 02-19-2024 Episodic Other gastrointestinal disorders (2 sources) Personal history of other diseases of the digestive system; Translations: [Personal history of other diseases of the digestive system] Onset: 06-08-2024 Episodic Other liver diseases (2 sources) Hepatomegaly, not elsewhere classified; Translations: [Hepatomegaly, not elsewhere classified] Onset: 06-19-2024 Episodic Other screening for suspected conditions (not mental disorders or infectious disease) (7 sources) Blood chemistry abnormal; Translations: [Other specified abnormal findings of blood chemistry] Onset: 02-19-2024 Episodic Unclassified (20 sources) Leg pain - The leg pain has been occurring for 1 month (Started in November, turned suddenly at sink this weekend and felt like something tore or pulled.). The symptoms have been occurring in an increasing pattern. The symptoms are described as a pain, piercing pain and sharp, stabbing pain and are moderate in severity. There is involvement of the left lower extremity. Aggravating factors include walking. There are no relieving factors. 01-07-2023 Unclassified (20 sources) Cold Symptoms - Symptoms include ear fullness, sore throat, hoarseness, dry cough, fever, general malaise and headache. The onset was sudden 6 day(s) ago. The symptoms occur constantly. The patient describes this as moderate in severity and worsening. Current treatment includes NSAIDs. Risk factors do not include smoking. The patient has not been exposed to an individual with similar symptoms or secondhand smoke. Patient denies history of seasonal allergies or asthma. 10-17-2015 Unclassified (2 sources) Onset: 08-05-2024 08-05-2024 Results Test Name Value Interpretation Reference Range Facility .Auto Diffon 05-04-2025 Basophil, Absolute 0.0 10 3/mcL Normal 0.0-0.3 [facility] Comment on above: Performed By: #### C MP, ANEU, CEA, CBC, ADIFF, GFR ####[address] [address] Basophils/100 WBC (Bld) 0.5 % Normal 0.0-2.5 [facility] Comment on above: Performed By: #### C MP, ANEU, CEA, CBC, ADIFF, GFR ####[address] [address] Eosinophil, Absolute 0.1 10 3/mcL Normal 0.0-0.7 [facility] Comment on above: Performed By: #### C MP, ANEU, CEA, CBC, ADIFF, GFR ####[address] [address] Eosinophils/100 WBC (Bld) 2.4 % Normal 0.0-6.0 [facility] Comment on above: Performed By: #### C MP, ANEU, CEA, CBC, ADIFF, GFR ####[address] [address] Lymphocyte, Absolute 1.4 10 3/mcL Normal 0.9-4.3 [facility] Comment on above: Performed By: #### C MP, ANEU, CEA, CBC, ADIFF, GFR ####[address] [address] Lymphocytes/100 WBC (Bld) 26.7 % Normal 20.0-40.0 [facility] Comment on above: Performed By: #### C MP, ANEU, CEA, CBC, ADIFF, GFR ####[address] [address] Monocyte, Absolute 0.4 10 3/mcL Normal 0.1-1.4 [facility] Comment on above: Performed By: #### C MP, ANEU, CEA, CBC, ADIFF, GFR ####[address] [address] Monocytes/100 WBC (Bld) 6.6 % Normal 2.0-13.0 [facility] Comment on above: Performed By: #### C MP, ANEU, CEA, CBC, ADIFF, GFR ####[address] [address] Neutrophils/100 WBC (Bld) 63.8 % Normal 50.0-75.0 [facility] Comment on above: Performed By: #### C MP, ANEU, CEA, CBC, ADIFF, GFR ####[place] [address] .GFRon 05-04-2025 Estimated Glomerular Filtration Rate 120 ml/min/1.73sqm Normal [facility] Comment on above: Result Comment: Stag es of Chronic Kidney Disease (CKD)Stage Description eGFR(ml/min/1.73 sq.m.)CKD 1 Normal kidney function or >=90 normal kindney function with possible kidney damage (ex. Proteinuria)CKD 2 Kidney damage with mild loss 60-89 of kidney functionCKD 3a Mild to moderate loss of kidney 45-59 functionCKD 3b Moderate to severe loss of 30-44 of kindey function CKD 4 Severe loss of kidney function 15-29CKD 5 Kidney failure <15Note: (go live 2024) the eGFR calculation was updated to the KD-EPI creatinine equation without a race factor to calculate theeGFR results. Performed By: #### C MP, ANEU, CEA, CBC, ADIFF, GFR ####[address] [address] .NEUABSon 05-04-2025 Neutrophil, Absolute 3.4 10 3/mcL Normal 2.3-8.1 [facility] Comment on above: Performed By: #### C MP, ANEU, CEA, CBC, ADIFF, GFR ####[place] [address] CBCon 05-04-2025 Erythrocyte distribution width (RBC) [Ratio] 20.0 % High 11.5-15.5 [facility] Comment on above: Performed By: #### C MP, ANEU, CEA, CBC, ADIFF, GFR ####[place] [address] Hematocrit (Bld) [Volume fraction] 30.9 % Low 34.0-46.0 [facility] Comment on above: Performed By: #### C MP, ANEU, CEA, CBC, ADIFF, GFR ####[place] [address] Hgb 9.3 G/dL Low 12.0-16.0 [facility] Comment on above: Performed By: #### C MP, ANEU, CEA, CBC, ADIFF, GFR ####[place] [address] MCH (RBC) [Entitic mass] 22.0 pg Low 27.0-33.0 [facility] Comment on above: Performed By: #### C MP, ANEU, CEA, CBC, ADIFF, GFR ####[place] [address] MCHC 30.0 G/dL Low 32.0-36.0 [facility] Comment on above: Performed By: #### C MP, ANEU, CEA, CBC, ADIFF, GFR ####[place] [address] MCV (RBC) [Entitic vol] 73.2 fL Low 80.0-99.0 [facility] Comment on above: Performed By: #### C MP, ANEU, CEA, CBC, ADIFF, GFR ####[place] [address] Platelet 249 10 3/mcL Normal 150-450 [facility] Comment on above: Performed By: #### C MP, ANEU, CEA, CBC, ADIFF, GFR ####[place] [address] Platelet mean volume (Bld) [Entitic vol] 8.4 fL Normal 6.6-10.5 [facility] Comment on above: Performed By: #### C MP, ANEU, CEA, CBC, ADIFF, GFR ####[place] [address] RBC 4.22 10 6/mcL Normal 4.10-5.30 [facility] Comment on above: Performed By: #### C MP, ANEU, CEA, CBC, ADIFF, GFR ####[place] [address] WBC 5.3 10 3/mcL Normal 4.5-10.8 [facility] Comment on above: Performed By: #### C MP, ANEU, CEA, CBC, ADIFF, GFR ####[place] [address] CEAon 05-04-2025 CEA 238.2 ng/mL High 0.0-3.0 [facility] Comment on above: Result Comment: CEA Reference Range for SMOKERS: 0.0 - 5.0 ng/mL.Testing performed on the Cover IM analyzer usingdirect chemiluminesent technology. Patient resultsdetermined by assays using different manufacturers for methods may not be comparable. Performed By: #### C MP, ANEU, CEA, CBC, ADIFF, GFR ####[place] [address] CMPon 05-04-2025 Albumin Level 3.7 G/dL Normal 3.2-4.8 [facility] Comment on above: Performed By: #### C MP, ANEU, CEA, CBC, ADIFF, GFR ####[place] [address] Albumin/Globulin [Mass ratio] 1.0 {ratio} Normal 0.9-1.6 [facility] Comment on above: Performed By: #### C MP, ANEU, CEA, CBC, ADIFF, GFR ####[place] [address] ALP [Catalytic activity/Vol] 86 U/L Normal 38-126 [facility] Comment on above: Performed By: #### C MP, ANEU, CEA, CBC, ADIFF, GFR ####[address] [address] ALT [Catalytic activity/Vol] 17 U/L Normal 10-49 [facility] Comment on above: Performed By: #### C MP, ANEU, CEA, CBC, ADIFF, GFR ####[address] [address] AST [Catalytic activity/Vol] 21 U/L Normal 8-34 [facility] Comment on above: Performed By: #### C MP, ANEU, CEA, CBC, ADIFF, GFR ####[address] [address] Bili Total 1.00 mg/dL Normal 0.20-1.20 [facility] Comment on above: Result Comment: Use of this assay is not recommended for patients undergoing treatment with eltrombopag due to the potential for falsely elevated results. Performed By: #### C MP, ANEU, CEA, CBC, ADIFF, GFR ####[place] [address] BUN/Creatinine Ratio 23.4 ratio High 10.0-22.0 [facility] Comment on above: Performed By: #### C MP, ANEU, CEA, CBC, ADIFF, GFR ####[address] [address] Calcium [Mass/Vol] 9.5 mg/dL Normal 8.7-10.4 [facility] Comment on above: Performed By: #### C MP, ANEU, CEA, CBC, ADIFF, GFR ####[address] [address] Chloride [Moles/Vol] 106 mmol/L Normal 98-110 [facility] Comment on above: Performed By: #### C MP, ANEU, CEA, CBC, ADIFF, GFR ####[address] [address] CO2 [Moles/Vol] 27 mmol/L Normal 22-32 [facility] Comment on above: Performed By: #### C MP, ANEU, CEA, CBC, ADIFF, GFR ####[place] [address] Creatinine [Mass/Vol] 0.47 mg/dL Low 0.50-1.20 [facility] Comment on above: Result Comment: Test ing performed on [employer] analyzer using enzymatic creatinine methodology. Performed By: #### C MP, ANEU, CEA, CBC, ADIFF, GFR ####[place] [address] Electrolyte Balance 8.0 mEq/L Normal 4.0-15.0 [facility] Comment on above: Performed By: #### C MP, ANEU, CEA, CBC, ADIFF, GFR ####[place] [address] Globulin 3.7 G/dL Normal 2.5-4.2 [facility] Comment on above: Performed By: #### C MP, ANEU, CEA, CBC, ADIFF, GFR ####[place] [address] Glucose [Mass/Vol] 103 mg/dL Normal 70-110 [facility] Comment on above: Performed By: #### C MP, ANEU, CEA, CBC, ADIFF, GFR ####[place] [address] Potassium [Moles/Vol] 3.8 mmol/L Normal 3.5-5.0 [facility] Comment on above: Performed By: #### C MP, ANEU, CEA, CBC, ADIFF, GFR ####[place] [address] Sodium [Moles/Vol] 141 mmol/L Normal 136-145 [facility] Comment on above: Performed By: #### C MP, ANEU, CEA, CBC, ADIFF, GFR ####[place] [address] Total Protein 7.4 G/dL Normal 5.7-8.2 [facility] Comment on above: Performed By: #### C MP, ANEU, CEA, CBC, ADIFF, GFR ####[place] [address] Urea nitrogen [Mass/Vol] 11.0 mg/dL Normal 8.0-22.0 [facility] Comment on above: Performed By: #### C MP, ANEU, CEA, CBC, ADIFF, GFR ####[id number] [place] [address] LABORATORYOrdered By: SYSTEM SYSTEM on 05-04-2025 Albumin BCP dye [Mass/Vol] 3.7 G/dL Normal 3.2 - 4.8 G/dL ADM SS Albumin/Globulin [Mass ratio] 1.0 {ratio} Normal 0.9 - 1.6 ratio AH ADM SS ALP [Catalytic activity/Vol] 86 U/L Normal 38 - 126 U/L AH ADM SS ALT No additional P-5'-P [Catalytic activity/Vol] 17 U/L Normal 10 - 49 U/L AH ADM SS AST [Catalytic activity/Vol] 21 U/L Normal 8 - 34 U/L AH ADM SS Basophils (Bld) [#/Vol] 0.0 103/mcL Normal 0.0 - 0.3 10^3/mcL Workflow SS Basophils/100 WBC (Bld) 0.5 % Normal 0.0 - 2.5 % Workflow SS Bilirubin [Mass/Vol] 1.00 mg/dL Normal 0.20 - 1.20 mg/dL ADM SS Comment on above: Interpretive Data: U se of this assay is not recommended for patients undergoing treatment with eltrombopag due to the potential for falsely elevated results. Calcium [Mass/Vol] 9.5 mg/dL Normal 8.7 - 10. 4 mg/dL AH ADM SS Carcinoembryonic Ag [Mass/Vol] 238.2 ng/mL High 0.0 - 3.0 ng/mL AH ADM SS Comment on above: Interpretive Data: C EA Reference Range for SMOKERS: 0.0 - 5.0 ng/mL. Testing performed on the [employer] analyzer using direct chemiluminesent technology. Patient results determined by assays using different manufacturers for methods may not be comparable. Chloride [Moles/Vol] 106 mmol/L Normal 98 - 11 0 mEq/L AH ADM SS CO2 [Moles/Vol] 27 mmol/L Normal 22 - 32 mEq/L AH ADM SS Creatinine [Mass/Vol] 0.47 mg/dL Low 0.50 - 1.20 mg/dL ADM SS Comment on above: Interpretive Data: T esting performed on Cover CH analyzer using enzymatic creatinine methodology. Electrolyte Balance 8.0 mEq/L Normal 4.0 - 15 .0 mEq/L ADM SS Eosinophils (Bld) [#/Vol] 0.1 103/mcL Normal 0.0 - 0.7 10^3/mcL Workflow SS Eosinophils/100 WBC (Bld) 2.4 % Normal 0.0 - 6.0 % Workflow SS Erythrocyte distribution width (RBC) [Ratio] 20.0 % High 11.5 - 15.5 % Workflow SS Globulin 3.7 G/dL Normal 2.5 - 4.2 G/dL ADM SS GLOMERULAR FILTRATION RATE/1.73 SQ M.PREDICTED:ARVRAT:PT:S ER/PLAS/BLD:QN:CREATINI NE-BASED FORMULA (CKD-EPI 2020) 120 ml/min/1.73sqm Invalid Interpretation Code ADM SS Comment on above: Interpretive Data: Stages of Chronic Kidney Disease (CKD) Stage Description eGFR(ml/min/1.73 sq.m.) CKD 1 Normal kidney function or >=90 normal kindney function with possible kidney damage (ex. Proteinuria) CKD 2 Kidney damage with mild loss 60-89 of kidney function CKD 3a Mild to moderate loss of kidney 45-59 function CKD 3b Moderate to severe loss of 30-44 of kindey function CKD 4 Severe loss of kidney function 15-29 CKD 5 Kidney failure <15 Note: (go live 2024) the eGFR calculation was updated to the 2020 CKD-EPI creatinine equation without a race factor to calculate the eGFR results. Glucose [Mass/Vol] 103 mg/dL Normal 70 - 110 mg/dL ADM SS Hematocrit (Bld) [Volume fraction] 30.9 % Low 34.0 - 46.0 % Workflow SS Hemoglobin (Bld) [Mass/Vol] 9.3 G/dL Low 12.0 - 16.0 G/dL Workflow SS Lymphocytes (Bld) [#/Vol] 1.4 103/mcL Normal 0.9 - 4.3 10^3/mcL Workflow SS Lymphocytes/100 WBC (Bld) 26.7 % Normal 20.0 - 40.0 % Workflow SS MCH (RBC) [Entitic mass] 22.0 pg Low 27.0 - 33.0 pg AH Workflow SS MCHC 30.0 G/dL Low 32.0 - 36.0 G/dL AH Workflow SS MCV (RBC) [Entitic vol] 73.2 fL Low 80.0 - 99.0 fL AH Workflow SS Monocytes (Bld) [#/Vol] 0.4 103/mcL Normal 0.1 - 1.4 10^3/mcL AH Workflow SS Monocytes/100 WBC (Bld) 6.6 % Normal 2.0 - 13.0 % AH Workflow SS Neutrophils (Bld) [#/Vol] 3.4 103/mcL Normal 2.3 - 8.1 10^3/mcL AH Workflow SS Neutrophils/100 WBC (Bld) 63.8 % Normal 50.0 - 75.0 % AH Workflow SS Platelet mean volume (Bld) [Entitic vol] 8.4 fL Normal 6.6 - 10.5 fL AH Workflow SS Platelets (Bld) [#/Vol] 249 103/mcL Normal 150 - 450 10^3/mcL AH Workflow SS Potassium [Moles/Vol] 3.8 mmol/L Normal 3.5 - 5.0 mEq/L AH ADM SS Protein [Mass/Vol] 7.4 G/dL Normal 5.7 - 8.2 G/dL AH ADM SS RBC (Bld) [#/Vol] 4.22 106/mcL Normal 4.10 - 5.30 10^6/mcL AH Workflow SS Sodium [Moles/Vol] 141 mmol/L Normal 136 - 145 mEq/L AH ADM SS Urea nitrogen [Mass/Vol] 11.0 mg/dL Normal 8.0 - 22.0 mg/dL AH ADM SS Urea nitrogen/Creatinine [Mass ratio] 23.4 ratio High 10.0 - 22.0 ratio AH ADM SS WBC (Bld) [#/Vol] 5.3 103/mcL Normal 4.5 - 10.8 10^3/mcL AH Workflow SS CNOVSPon 04-30-2025 CNOVSP Visit (SP) Office (HEMAWS) -------- CLARISSE PEGUEROArtem ([id number]) 1980 F Date Time Provider Department 04/30/25 1:30 PM BONIFACIO LOMBARDI During your visit today, we recorded the following information about you: Temperature Pulse Blood pressure Weight 98.2 degrees 87/minute 116/80 102.1 kg Height 1.61 m Bonifacio Lombardi DO 05/04/2025 2:56 PM Addendum Patient referred by Dr. Roseann Lundberg for ongoing management of metastatic colon cancer. HPI: The patient is a 44-year-old female who was diagnosed with metastatic colorectal cancer in May 2024. Outside records indicate patient had a history of complicated diverticulitis in March 2024. She was admitted to [facility] where CT demonstrated a large abscess with extension into the rectouterine pouch. There was evidently concern for obstructive uropathy as well. She was treated with IV antibiotics and CT guided drainage of the abscess. Rectal bleeding continued and bowel movements were noted to be irregular. A CT scan of the abdomen pelvis on 04/27/2024 done at [facility] demonstrated a 2-1/2 cm hypodense focus in the right hepatic lobe. This was noted to have increased in size when compared to a CT scan of the abdomen pelvis on 03/08/2024. Prior measurements were not rendered. There was also a 11 mm focus in the left lobe that was new when compared to the previous exam. Mucosal thickening was noted involving a segment of the sigmoid colon consistent with inflammatory versus neoplastic process. A previously described air-fluid mass was no longer present. CT of the chest demonstrated an 8 mm nodule in the left upper lobe and a nodule in the right upper lobe. She underwent a colonoscopy in May 2024 which demonstrated a circumferential mass in the sigmoid colon. Biopsy of the sigmoid mass 18 cm from the anal verge on 06/08/2024 demonstrated moderately differentiated adenocarcinoma. Biopsy specimen was pMMR. She was started on FOLFOX 08/05/2024. She had been seen at [facility] for second opinion. An MRI performed with Eovist on 08/03/2024 reportedly demonstrated multiple liver lesions in segment 8, 5 and 3 with a dominant lesion in segment 8/4A. 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 There was an incompletely characterized T2 hyperintense right upper lobe lung nodule. Dedicated chest imaging was recommended. Additionally there was a T2 hyperintense lesion in the T7 vertebral body which was incompletely characterized. Most recently receiving therapy with FOLFIRI and growth factor support. Rotated to FOLFIRI 10/2024. Patient recalls increase in CEA. Most recent office visit note indicates that CT of the chest abdomen pelvis had shown response. CEA was trending lower. Recent hold on chemotherapy secondary to port malfunction with leaking. Patient was in need of dental extraction which was to be done prior to port replacement. DVT post- daughter who is 20 years old. Son who is 17. No VTE complications with . Did not receive VTE prophylaxis. Previous therapy: 1) FOLFOX x5 cycles. Current therapy: 1) FOLFIRI x10 cycles. No symptoms of sensory neuropathy now. Was having vomiting day 1 during infusion of Emend. Evidently had nausea from preservative in Emend. Received a different formulation and that symptom stopped. However has had n/v days 6-7 consistently with FOLFIRI. Had olanzapine added and that gave her relief from n/v days 6-7. Dental extraction 04/13/2025. Port replaced 04/22/2025. 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 No past medical history on file. No past surgical history on file. Current Outpatient Medications Medication Sig omeprazole (PRILOSEC) 20 mg capsule Take 20 mg by mouth once daily. ondansetron (ZOFRAN) 8 mg tablet Take 8 mg by mouth every 8 hours as needed. ZYPREXA 5 mg tablet Take 5 mg by mouth daily at bedtime. (Patient taking differently: Take 5 mg by mouth as needed.) prochlorperazine (COMPAZINE) 5 mg tablet Take 5 mg by mouth every 6 hours as needed. loratadine (CLARITIN) 10 mg tablet Take 10 mg by mouth as needed. No current facility-administered medications for this visit. ALLERGIES Allergen Reactions Ciprofloxacin Other: See Comments Hypertension and high heart rate SOCIAL HISTORY[1] Family history: 1) Paternal aunt--Breast cancer in her 60s. 2) Maternal uncle--Bone cancer in his 50s. REVIEW OF SYSTEMS: Constitutional: No episodes of fever. Neuro: No TAMAYO, vertigo, dizziness and imbalance. HEENT: No recent change in voice, vision or hearing. Resp: No cough, wheeze and hemoptysis. No shortness of breath at rest. CVS: No exertional chest pain, PND, orthopnea and LE edema. GI: See above. : No dy (more content not included)... Normal [facility] CNPNon 04-30-2025 CNPN Telephone (HEMAWS) -------- CLARISSE PEGUERO ([id number]) 1980 F Date Time Provider Department 04/30/25 BONIFACIO LOMBARDI During your visit today, we recorded the following information about you: Xin Aguilera LPN 04/30/2025 2:42 PM [facility]. Report of pathology of liver biopsy 07/2024. Report of NGS panel on liver biopsy specimen. CT images done 04/01 @ [facility] over read Allergies As of Date: 04/30/2025 Noted Allergy Reaction CIPROFLOXACIN 04/30/2025 14 - Other: See Comments Comments: Hypertension and high heart rate Date Reviewed: 04/30/2025 Reviewed by: Ricki Devlin MA - Fully Assessed Prescriptions as of 05/05/2025 - omeprazole (PRILOSEC) 20 mg capsule Take 20 mg by mouth once daily. - ondansetron (ZOFRAN) 8 mg tablet Take 8 mg by mouth every 8 hours as needed. - ZYPREXA 5 mg tablet Take 5 mg by mouth daily at bedtime. - prochlorperazine (COMPAZINE) 5 mg tablet Take 5 mg by mouth every 6 hours as needed. - loratadine (CLARITIN) 10 mg tablet Take 10 mg by mouth as needed. 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) [C1*04/30/2025 Metastatic colon cancer to liver (HCC) [C18.9, *04/30/2025 Encounter Status:Closed by XIN AGUILERA on 05/05/25 Normal [facility] CMEDon 04-28-2025 CMED [facility] MAIN LABORATORYOrdered By: Bruno Castle on 04-22-2025 Beta HCG ( test) Ql (U) Negative (04/22/25 5:42 AM) [facility] Work Phone: XR FLUORO VENOUS ACCESS OLAF CEon 04-22-2025 XR FLUORO VENOUS ACCESS DEVICE Normal [facility] .GFRon 04-06-2025 Estimated Glomerular Filtration Rate 117 ml/min/1.73sqm [facility] MAIN Comment on above: Result Comment: Stag es of Chronic Kidney Disease (CKD)Stage Description eGFR(ml/min/1.73 sq.m.)CKD 1 Normal kidney function or >=90 normal kindney function with possible kidney damage (ex. Proteinuria)CKD 2 Kidney damage with mild loss 60-89 of kidney functionCKD 3a Mild to moderate loss of kidney 45-59 functionCKD 3b Moderate to severe loss of 30-44 of kindey function CKD 4 Severe loss of kidney function 15-29CKD 5 Kidney failure <15Note: (go live 2024) the eGFR calculation was updated to the KD-EPI creatinine equation without a race factor to calculate theeGFR results. Performed By: #### G FR, ANEU, CBC, CMP, CEA, MORPH, DIFF ####[address] [address] .Manual Diffon 04-06-2025 Bands 1.0 % Normal 0.0-5.0 [facility] Comment on above: Performed By: #### G FR, ANEU, CBC, CMP, CEA, MORPH, DIFF ####[address] [address] Basophil %, Manual 0.0 % Normal 0.0-2.5 [facility] MAIN Comment on above: Performed By: #### G FR, ANEU, CBC, CMP, CEA, MORPH, DIFF ####[address] [address] Basophil, Abs Manual 0.0 10 3/mcL Normal 0.0-0.3 [facility] MA[facility] Comment on above: Performed By: #### G FR, ANEU, CBC, CMP, CEA, MORPH, DIFF ####[address] [address] Eosinophil %, Manual 1.0 % Normal 0.0-6.0 [facility] MAIN Comment on above: Performed By: #### G FR, ANEU, CBC, CMP, CEA, MORPH, DIFF ####[address] [address] Eosinophil, Abs Manual 0.1 10 3/mcL Normal 0.0-0.7 [facility] Comment on above: Performed By: #### G FR, ANEU, CBC, CMP, CEA, MORPH, DIFF ####[address] [address] Lymphocyte %, Manual 10.0 % Low 20.0-40.0 [facility] Comment on above: Performed By: #### G FR, ANEU, CBC, CMP, CEA, MORPH, DIFF ####[address] [address] Lymphocyte, Abs Manual 1.0 10 3/mcL Normal 0.9-4.3 [facility] Comment on above: Performed By: #### G FR, ANEU, CBC, CMP, CEA, MORPH, DIFF ####[address] [address] Monocyte %, Manual 2.0 % Normal 2.0-13.0 [facility] MAIN Comment on above: Performed By: #### G FR, ANEU, CBC, CMP, CEA, MORPH, DIFF ####[address] [address] Monocyte, Abs Manual 0.2 10 3/mcL Normal 0.1-1.4 [facility] MA[facility] Comment on above: Performed By: #### G FR, ANEU, CBC, CMP, CEA, MORPH, DIFF ####[address] [address] Neutrophil %, Manual 86.0 % High 50.0-75.0 [facility] Comment on above: Performed By: #### G FR, ANEU, CBC, CMP, CEA, MORPH, DIFF ####[place] [address] Neutrophil, Abs Manual 8.9 10 3/mcL High 2.3-8.1 [facility] Comment on above: Performed By: #### G FR, ANEU, CBC, CMP, CEA, MORPH, DIFF ####[place] [address] Nucleated RBC 0.0 /100 WBC Normal [facility] Comment on above: Performed By: #### G FR, ANEU, CBC, CMP, CEA, MORPH, DIFF ####[place] [address] .Morphon 04-06-2025 Anisocytosis Ql (Bld) 2+ Normal [facility] MAIN Comment on above: Performed By: #### G FR, ANEU, CBC, CMP, CEA, MORPH, DIFF ####[place] [address] Hypochrom 1+ Normal [facility] Comment on above: Performed By: #### G FR, ANEU, CBC, CMP, CEA, MORPH, DIFF ####[place] [address] Microcytosis 1+ Normal [facility] Comment on above: Performed By: #### G FR, ANEU, CBC, CMP, CEA, MORPH, DIFF ####[place] [address] Ovalocytes 1+ Normal [facility] Comment on above: Performed By: #### G FR, ANEU, CBC, CMP, CEA, MORPH, DIFF ####[place] [address] Platelet Estimate Normal [facility] MAIN Comment on above: Performed By: #### G FR, ANEU, CBC, CMP, CEA, MORPH, DIFF ####[place] [address] Poik 1+ [facility] MAIN Comment on above: Performed By: #### G FR, ANEU, CBC, CMP, CEA, MORPH, DIFF ####[place] [id number] Polychrom 1+ Normal [facility] Comment on above: Performed By: #### G FR, ANEU, CBC, CMP, CEA, MORPH, DIFF ####[place] [address] Toxic Gran 1+ Normal [facility] Comment on above: Performed By: #### G FR, ANEU, CBC, CMP, CEA, MORPH, DIFF ####[place] [address] .NEUABSon 04-06-2025 Neutrophil, Absolute 8.4 10 3/mcL High 2.3-8.1 [facility] MA[facility] Comment on above: Performed By: #### G FR, ANEU, CBC, CMP, CEA, MORPH, DIFF ####[place] [address] CBCon 04-06-2025 Erythrocyte distribution width (RBC) [Ratio] 22.7 % High 11.5-15.5 [facility] Comment on above: Performed By: #### G FR, ANEU, CBC, CMP, CEA, MORPH, DIFF ####[place] [address] Hematocrit (Bld) [Volume fraction] 31.3 % Low 34.0-46.0 [facility] Comment on above: Performed By: #### G FR, ANEU, CBC, CMP, CEA, MORPH, DIFF ####[place] [address] Hgb 9.5 G/dL Low 12.0-16.0 [facility] Comment on above: Performed By: #### G FR, ANEU, CBC, CMP, CEA, MORPH, DIFF ####[place] [address] MCH (RBC) [Entitic mass] 23.3 pg Low 27.0-33.0 [facility] Comment on above: Performed By: #### G FR, ANEU, CBC, CMP, CEA, MORPH, DIFF ####[place] [address] MCHC 30.4 G/dL Low 32.0-36.0 [facility] Comment on above: Performed By: #### G FR, ANEU, CBC, CMP, CEA, MORPH, DIFF ####[place] [address] MCV (RBC) [Entitic vol] 76.5 fL Low 80.0-99.0 [facility] Comment on above: Performed By: #### G FR, ANEU, CBC, CMP, CEA, MORPH, DIFF ####[place] [address] Platelet 342 10 3/mcL Normal 150-450 [facility] Comment on above: Performed By: #### G FR, ANEU, CBC, CMP, CEA, MORPH, DIFF ####[place] [address] Platelet mean volume (Bld) [Entitic vol] 8.9 fL Normal 6.6-10.5 [facility] Comment on above: Performed By: #### G FR, ANEU, CBC, CMP, CEA, MORPH, DIFF ####[place] [address] RBC 4.09 10 6/mcL Low 4.10-5.30 [facility] Comment on above: Performed By: #### G FR, ANEU, CBC, CMP, CEA, MORPH, DIFF ####[place] [address] WBC 10.2 10 3/mcL Normal 4.5-10.8 [facility] Comment on above: Performed By: #### G FR, ANEU, CBC, CMP, CEA, MORPH, DIFF ####[place] [address] CEAon 04-06-2025 CEA 55.0 ng/mL High 0.0-3.0 [facility] Comment on above: Result Comment: CEA Reference Range for SMOKERS: 0.0 - 5.0 ng/mL.Testing performed on the Cover IM analyzer usingdirect chemiluminesent technology. Patient resultsdetermined by assays using different manufacturers for methods may not be comparable. Performed By: #### G FR, ANEU, CBC, CMP, CEA, MORPH, DIFF ####[place] [address] CMPon 04-06-2025 Albumin Level 3.9 G/dL Normal 3.2-4.8 [facility] Comment on above: Performed By: #### G FR, ANEU, CBC, CMP, CEA, MORPH, DIFF ####[address] [address] Albumin/Globulin [Mass ratio] 1.0 {ratio} Normal 0.9-1.6 [facility] Comment on above: Performed By: #### G FR, ANEU, CBC, CMP, CEA, MORPH, DIFF ####[address] [address] ALP [Catalytic activity/Vol] 154 U/L High 38-126 [facility] Comment on above: Performed By: #### G FR, ANEU, CBC, CMP, CEA, MORPH, DIFF ####[place] [address] ALT [Catalytic activity/Vol] 20 U/L Normal 10-49 [facility] Comment on above: Performed By: #### G FR, ANEU, CBC, CMP, CEA, MORPH, DIFF ####[place] [phone] AST [Catalytic activity/Vol] 17 U/L Normal 8-34 [facility] Comment on above: Performed By: #### G FR, ANEU, CBC, CMP, CEA, MORPH, DIFF ####[place] [address] Bili Total 0.50 mg/dL Normal 0.20-1.20 [facility] Comment on above: Result Comment: Use of this assay is not recommended for patients undergoing treatment with eltrombopag due to the potential for falsely elevated results. Performed By: #### G FR, ANEU, CBC, CMP, CEA, MORPH, DIFF ####[place] [address] BUN/Creatinine Ratio 18.9 ratio Normal 10.0-22.0 [facility] Comment on above: Performed By: #### G FR, ANEU, CBC, CMP, CEA, MORPH, DIFF ####[address] [address] Calcium [Mass/Vol] 10.0 mg/dL Normal 8.7-10.4 [facility] MAIN Comment on above: Performed By: #### G FR, ANEU, CBC, CMP, CEA, MORPH, DIFF ####[address] [address] Chloride [Moles/Vol] 106 mmol/L Normal 98-110 [facility] Comment on above: Performed By: #### G FR, ANEU, CBC, CMP, CEA, MORPH, DIFF ####[address] [address] CO2 [Moles/Vol] 27 mmol/L Normal 22-32 [facility] Comment on above: Performed By: #### G FR, ANEU, CBC, CMP, CEA, MORPH, DIFF ####[address] [address] Creatinine [Mass/Vol] 0.53 mg/dL Normal 0.50-1.20 [facility] MAIN Comment on above: Result Comment: Test ing performed on [employer] analyzer using enzymatic creatinine methodology. Performed By: #### G FR, ANEU, CBC, CMP, CEA, MORPH, DIFF ####[address] [address] Electrolyte Balance 9.0 mEq/L Normal 4.0-15.0 [facility] MAIN Comment on above: Performed By: #### G FR, ANEU, CBC, CMP, CEA, MORPH, DIFF ####[address] [address] Globulin 3.8 G/dL Normal 2.5-4.2 [facility] Comment on above: Performed By: #### G FR, ANEU, CBC, CMP, CEA, MORPH, DIFF ####[address] [address] Glucose [Mass/Vol] 97 mg/dL Normal 70-110 [facility] MA[facility] Comment on above: Performed By: #### G FR, ANEU, CBC, CMP, CEA, MORPH, DIFF ####[address] [address] Potassium [Moles/Vol] 3.8 mmol/L Normal 3.5-5.0 [facility] MA[facility] Comment on above: Performed By: #### G FR, ANEU, CBC, CMP, CEA, MORPH, DIFF ####[place] [id number] [address] [place] [address] Sodium [Moles/Vol] 142 mmol/L Normal 136-145 [facility] MA[facility] Comment on above: Performed By: #### G FR, ANEU, CBC, CMP, CEA, MORPH, DIFF ####[place] [address] Total Protein 7.7 G/dL Normal 5.7-8.2 [facility] Comment on above: Performed By: #### G FR, ANEU, CBC, CMP, CEA, MORPH, DIFF ####[place] [address] Urea nitrogen [Mass/Vol] 10.0 mg/dL Normal 8.0-22.0 [facility] Comment on above: Performed By: #### G FR, ANEU, CBC, CMP, CEA, MORPH, DIFF ####[place] [address] LABORATORYOrdered By: SYSTEM SYSTEM on 04-06-2025 Albumin BCP dye [Mass/Vol] 3.9 G/dL Normal 3.2 - 4.8 G/dL ADM SS Albumin/Globulin [Mass ratio] 1.0 {ratio} Normal 0.9 - 1.6 ratio ADM SS ALP [Catalytic activity/Vol] 154 U/L High 38 - 126 U/L ADM SS ALT No additional P-5'-P [Catalytic activity/Vol] 20 U/L Normal 10 - 49 U/L ADM SS Anisocytosis Ql (Bld) 2+ *NA* (04/06/25 9:03 AM) Invalid Interpretation Code Workflow SS AST [Catalytic activity/Vol] 17 U/L Normal 8 - 34 U/L ADM SS Band form neutrophils/100 WBC (Bld) 1.0 % Normal 0.0 - 5.0 % AH Workflow SS Basophils (Bld) [#/Vol] 0.0 103/mcL Normal 0.0 - 0.3 10^3/mcL AH Workflow SS Basophils/100 WBC (Bld) 0.0 % Normal 0.0 - 2.5 % Workflow SS Bilirubin [Mass/Vol] 0.50 mg/dL Normal 0.20 - 1.20 mg/dL ADM SS Comment on above: Interpretive Data: U se of this assay is not recommended for patients undergoing treatment with eltrombopag due to the potential for falsely elevated results. Calcium [Mass/Vol] 10.0 mg/dL Normal 8.7 - 10. 4 mg/dL ADM SS Carcinoembryonic Ag [Mass/Vol] 55.0 ng/mL High 0.0 - 3.0 ng/mL ADM SS Comment on above: Interpretive Data: C EA Reference Range for SMOKERS: 0.0 - 5.0 ng/mL. Testing performed on the Cover IM analyzer using direct chemiluminesent technology. Patient results determined by assays using different manufacturers for methods may not be comparable. Chloride [Moles/Vol] 106 mmol/L Normal 98 - 11 0 mEq/L ADM SS CO2 [Moles/Vol] 27 mmol/L Normal 22 - 32 mEq/L ADM SS Creatinine [Mass/Vol] 0.53 mg/dL Normal 0.50 - 1.20 mg/dL ADM SS Comment on above: Interpretive Data: T esting performed on [employer] CH analyzer using enzymatic creatinine methodology. Electrolyte Balance 9.0 mEq/L Normal 4.0 - 15 .0 mEq/L ADM SS Eosinophils (Bld) [#/Vol] 0.1 103/mcL Normal 0.0 - 0.7 10^3/mcL Workflow SS Eosinophils/100 WBC (Bld) 1.0 % Normal 0.0 - 6.0 % Workflow SS Erythrocyte distribution width (RBC) [Ratio] 22.7 % High 11.5 - 15.5 % Workflow SS Globulin 3.8 G/dL Normal 2.5 - 4.2 G/dL ADM SS GLOMERULAR FILTRATION RATE/1.73 SQ M.PREDICTED:ARVRAT:PT:S ER/PLAS/BLD:QN:CREATINI NE-BASED FORMULA (CKD-EPI 2020) 117 ml/min/1.73sqm Invalid Interpretation Code ADM SS Comment on above: Interpretive Data: Stages of Chronic Kidney Disease (CKD) Stage Description eGFR(ml/min/1.73 sq.m.) CKD 1 Normal kidney function or >=90 normal kindney function with possible kidney damage (ex. Proteinuria) CKD 2 Kidney damage with mild loss 60-89 of kidney function CKD 3a Mild to moderate loss of kidney 45-59 function CKD 3b Moderate to severe loss of 30-44 of kindey function CKD 4 Severe loss of kidney function 15-29 CKD 5 Kidney failure <15 Note: (go live 2024) the eGFR calculation was updated to the 2020 CKD-EPI creatinine equation without a race factor to calculate the eGFR results. Glucose [Mass/Vol] 97 mg/dL Normal 70 - 110 mg/dL AH ADM SS Hematocrit (Bld) [Volume fraction] 31.3 % Low 34.0 - 46.0 % AH Workflow SS Hemoglobin (Bld) [Mass/Vol] 9.5 G/dL Low 12.0 - 16.0 G/dL AH Workflow SS Hypochromia Ql (Bld) 1+ *NA* (04/06/25 9:03 AM) Invalid Interpretation Code AH Workflow SS Lymphocytes (Bld) [#/Vol] 1.0 103/mcL Normal 0.9 - 4.3 10^3/mcL AH Workflow SS Lymphocytes/100 WBC (Bld) 10.0 % Low 20.0 - 40.0 % AH Workflow SS MCH (RBC) [Entitic mass] 23.3 pg Low 27.0 - 33.0 pg AH Workflow SS MCHC 30.4 G/dL Low 32.0 - 36.0 G/dL AH Workflow SS MCV (RBC) [Entitic vol] 76.5 fL Low 80.0 - 99.0 fL AH Workflow SS Microcytes Ql (Bld) 1+ *NA* (04/06/25 9:03 AM) Invalid Interpretation Code AH Workflow SS Monocytes (Bld) [#/Vol] 0.2 103/mcL Normal 0.1 - 1.4 10^3/mcL AH Workflow SS Monocytes/100 WBC (Bld) 2.0 % Normal 2.0 - 13.0 % AH Workflow SS Neutrophils (Bld) [#/Vol] 8.4 103/mcL High 2.3 - 8.1 10^3/mcL AH Workflow SS Neutrophils (Bld) [#/Vol] 8.9 103/mcL High 2.3 - 8.1 10^3/mcL AH Workflow SS Neutrophils/100 WBC (Bld) 86.0 % High 50.0 - 75.0 % AH Workflow SS Nucleated RBC 0.0 /100 WBC Invalid Interpretation Code AH Workflow SS Ovalocytes LM Ql (Bld) 1+ *NA* (04/06/25 9:03 AM) Invalid Interpretation Code AH Workflow SS Platelet mean volume (Bld) [Entitic vol] 8.9 fL Normal 6.6 - 10.5 fL AH Workflow SS Platelets (Bld) [#/Vol] 342 103/mcL Normal 150 - 450 10^3/mcL AH Workflow SS Platelets LM Ql (Bld) Normal *NA* (04/06/25 9:03 AM) Invalid Interpretation Code AH Workflow SS Poikilocytosis LM Ql (Bld) 1+ *NA* (04/06/25 9:03 AM) Invalid Interpretation Code Workflow SS Polychromasia LM Ql (Bld) 1+ *NA* (04/06/25 9:03 AM) Invalid Interpretation Code Workflow SS Potassium [Moles/Vol] 3.8 mmol/L Normal 3.5 - 5.0 mEq/L ADM SS Protein [Mass/Vol] 7.7 G/dL Normal 5.7 - 8.2 G/dL ADM SS RBC (Bld) [#/Vol] 4.09 106/mcL Low 4.10 - 5.30 10^6/mcL AH Workflow SS Sodium [Moles/Vol] 142 mmol/L Normal 136 - 145 mEq/L ADM SS Toxic granules LM Ql (Bld) 1+ *NA* (04/06/25 9:03 AM) Invalid Interpretation Code AH Workflow SS Urea nitrogen [Mass/Vol] 10.0 mg/dL Normal 8.0 - 22.0 mg/dL ADM SS Urea nitrogen/Creatinine [Mass ratio] 18.9 ratio Normal 10.0 - 22.0 ratio ADM SS WBC (Bld) [#/Vol] 10.2 103/mcL Normal 4.5 - 10.8 10^3/mcL Workflow SS CT ABD/PELVIS W/ IV CONTRAST ONLYon 04-05-2025 CT ABD/PELVIS W/ IV CONTRAST ONLY Normal [facility] CT THORAX W/ CONTRASTon CT THORAX W/ CONTRAST Normal [facility] .Auto Diffon 03-23-2025 Basophil, Absolute 0.0 10 3/mcL Normal 0.0-0.3 [facility] Comment on above: Performed By: #### G FR, ANEU, CMP, ADIFF, CBC ####[address] [address] Basophils/100 WBC (Bld) 0.2 % Normal 0.0-2.5 [facility] Comment on above: Performed By: #### G FR, ANEU, CMP, ADIFF, CBC ####[address] [address] Eosinophil, Absolute 0.1 10 3/mcL Normal 0.0-0.7 [facility] Comment on above: Performed By: #### G FR, ANEU, CMP, ADIFF, CBC ####[address] [address] Eosinophils/100 WBC (Bld) 0.5 % Normal 0.0-6.0 [facility] Comment on above: Performed By: #### G FR, ANEU, CMP, ADIFF, CBC ####[address] [address] Lymphocyte, Absolute 1.6 10 3/mcL Normal 0.9-4.3 [facility] Comment on above: Performed By: #### G FR, ANEU, CMP, ADIFF, CBC ####[address] [address] Lymphocytes/100 WBC (Bld) 12.2 % Low 20.0-40.0 [facility] Comment on above: Performed By: #### G FR, ANEU, CMP, ADIFF, CBC ####[address] [address] Monocyte, Absolute 0.7 10 3/mcL Normal 0.1-1.4 [facility] Comment on above: Performed By: #### G FR, ANEU, CMP, ADIFF, CBC ####[address] [address] Monocytes/100 WBC (Bld) 5.7 % Normal 2.0-13.0 [facility] Comment on above: Performed By: #### G FR, ANEU, CMP, ADIFF, CBC ####[address] [address] Neutrophils/100 WBC (Bld) 81.4 % High 50.0-75.0 [facility] Comment on above: Performed By: #### G FR, ANEU, CMP, ADIFF, CBC ####[place] [address] .GFRon 03-23-2025 Estimated Glomerular Filtration Rate 117 ml/min/1.73sqm Normal [facility] Comment on above: Result Comment: Stag es of Chronic Kidney Disease (CKD)Stage Description eGFR(ml/min/1.73 sq.m.)CKD 1 Normal kidney function or >=90 normal kindney function with possible kidney damage (ex. Proteinuria)CKD 2 Kidney damage with mild loss 60-89 of kidney functionCKD 3a Mild to moderate loss of kidney 45-59 functionCKD 3b Moderate to severe loss of 30-44 of kindey function CKD 4 Severe loss of kidney function 15-29CKD 5 Kidney failure <15Note: (go live 2024) the eGFR calculation was updated to the KD-EPI creatinine equation without a race factor to calculate theeGFR results. Performed By: #### G FR, ANEU, CMP, ADIFF, CBC ####[place] [address] .NEUABSon 03-23-2025 Neutrophil, Absolute 10.4 10 3/mcL High 2.3-8.1 [facility] Comment on above: Performed By: #### G FR, ANEU, CMP, ADIFF, CBC ####[place] [address] CBCon 03-23-2025 Erythrocyte distribution width (RBC) [Ratio] 22.9 % High 11.5-15.5 [facility] Comment on above: Performed By: #### G FR, ANEU, CMP, ADIFF, CBC ####[place] [address] Hematocrit (Bld) [Volume fraction] 29.6 % Low 34.0-46.0 [facility] Comment on above: Performed By: #### G FR, ANEU, CMP, ADIFF, CBC ####[place] [address] Hgb 9.0 G/dL Low 12.0-16.0 [facility] Comment on above: Performed By: #### G FR, ANEU, CMP, ADIFF, CBC ####[place] [address] MCH (RBC) [Entitic mass] 23.1 pg Low 27.0-33.0 [facility] Comment on above: Performed By: #### G FR, ANEU, CMP, ADIFF, CBC ####[place] [address] MCHC 30.5 G/dL Low 32.0-36.0 [facility] Comment on above: Performed By: #### G FR, ANEU, CMP, ADIFF, CBC ####[place] [address] MCV (RBC) [Entitic vol] 75.8 fL Low 80.0-99.0 [facility] Comment on above: Performed By: #### G FR, ANEU, CMP, ADIFF, CBC ####[place] [address] Platelet 262 10 3/mcL Normal 150-450 [facility] Comment on above: Performed By: #### G FR, ANEU, CMP, ADIFF, CBC ####[place] [address] Platelet mean volume (Bld) [Entitic vol] 8.7 fL Normal 6.6-10.5 [facility] Comment on above: Performed By: #### G FR, ANEU, CMP, ADIFF, CBC ####[place] [address] RBC 3.90 10 6/mcL Low 4.10-5.30 [facility] Comment on above: Performed By: #### G FR, ANEU, CMP, ADIFF, CBC ####[place] [address] WBC 12.8 10 3/mcL High 4.5-10.8 [facility] Comment on above: Performed By: #### G FR, ANEU, CMP, ADIFF, CBC ####[place] [address] CMPon 03-23-2025 Albumin Level 3.8 G/dL Normal 3.2-4.8 [facility] Comment on above: Performed By: #### G FR, ANEU, CMP, ADIFF, CBC ####[address] [address] Albumin/Globulin [Mass ratio] 1.1 {ratio} Normal 0.9-1.6 [facility] Comment on above: Performed By: #### G FR, ANEU, CMP, ADIFF, CBC ####[address] [address] ALP [Catalytic activity/Vol] 143 U/L High 38-126 [facility] Comment on above: Performed By: #### G FR, ANEU, CMP, ADIFF, CBC ####[place] [address] ALT [Catalytic activity/Vol] 16 U/L Normal 10-49 [facility] Comment on above: Performed By: #### G FR, ANEU, CMP, ADIFF, CBC ####[place] [address] AST [Catalytic activity/Vol] 17 U/L Normal 8-34 [facility] Comment on above: Performed By: #### G FR, ANEU, CMP, ADIFF, CBC ####[place] [address] Bili Total 0.70 mg/dL Normal 0.20-1.20 [facility] Comment on above: Result Comment: Use of this assay is not recommended for patients undergoing treatment with eltrombopag due to the potential for falsely elevated results. Performed By: #### G FR, ANEU, CMP, ADIFF, CBC ####[place] [address] BUN/Creatinine Ratio 18.9 ratio Normal 10.0-22.0 [facility] Comment on above: Performed By: #### G FR, ANEU, CMP, ADIFF, CBC ####[address] [address] Calcium [Mass/Vol] 9.5 mg/dL Normal 8.7-10.4 [facility] Comment on above: Performed By: #### G FR, ANEU, CMP, ADIFF, CBC ####[place] [address] Chloride [Moles/Vol] 107 mmol/L Normal 98-110 [facility] Comment on above: Performed By: #### G FR, ANEU, CMP, ADIFF, CBC ####[place] [address] CO2 [Moles/Vol] 27 mmol/L Normal 22-32 [facility] Comment on above: Performed By: #### G FR, ANEU, CMP, ADIFF, CBC ####[place] [address] Creatinine [Mass/Vol] 0.53 mg/dL Normal 0.50-1.20 [facility] Comment on above: Result Comment: Test ing performed on [employer] analyzer using enzymatic creatinine methodology. Performed By: #### G FR, ANEU, CMP, ADIFF, CBC ####[place] [address] Electrolyte Balance 9.0 mEq/L Normal 4.0-15.0 [facility] Comment on above: Performed By: #### G FR, ANEU, CMP, ADIFF, CBC ####[place] [address] Globulin 3.4 G/dL Normal 2.5-4.2 [facility] Comment on above: Performed By: #### G FR, ANEU, CMP, ADIFF, CBC ####[place] [address] Glucose [Mass/Vol] 99 mg/dL Normal 70-110 [facility] Comment on above: Performed By: #### G FR, ANEU, CMP, ADIFF, CBC ####[place] [address] Potassium [Moles/Vol] 3.3 mmol/L Low 3.5-5.0 [facility] Comment on above: Performed By: #### G FR, ANEU, CMP, ADIFF, CBC ####[place] [address] Sodium [Moles/Vol] 143 mmol/L Normal 136-145 [facility] Comment on above: Performed By: #### G FR, ANEU, CMP, ADIFF, CBC ####[place] [id number] [place] [id number] Total Protein 7.2 G/dL Normal 5.7-8.2 [facility] Comment on above: Performed By: #### G FR, ANEU, CMP, ADIFF, CBC ####[place] [id number] [place] [id number] Urea nitrogen [Mass/Vol] 10.0 mg/dL Normal 8.0-22.0 [facility] Comment on above: Performed By: #### G FR, ANEU, CMP, ADIFF, CBC ####[address] [address] LABORATORYOrdered By: SYSTEM SYSTEM on 03-23-2025 Albumin BCP dye [Mass/Vol] 3.8 G/dL Normal 3.2 - 4.8 G/dL ADM SS Albumin/Globulin [Mass ratio] 1.1 {ratio} Normal 0.9 - 1.6 ratio ADM SS ALP [Catalytic activity/Vol] 143 U/L High 38 - 126 U/L ADM SS ALT No additional P-5'-P [Catalytic activity/Vol] 16 U/L Normal 10 - 49 U/L ADM SS AST [Catalytic activity/Vol] 17 U/L Normal 8 - 34 U/L AH ADM SS Basophils (Bld) [#/Vol] 0.0 103/mcL Normal 0.0 - 0.3 10^3/mcL Workflow SS Basophils/100 WBC (Bld) 0.2 % Normal 0.0 - 2.5 % Workflow SS Bilirubin [Mass/Vol] 0.70 mg/dL Normal 0.20 - 1.20 mg/dL ADM SS Comment on above: Interpretive Data: U se of this assay is not recommended for patients undergoing treatment with eltrombopag due to the potential for falsely elevated results. Calcium [Mass/Vol] 9.5 mg/dL Normal 8.7 - 10. 4 mg/dL ADM SS Chloride [Moles/Vol] 107 mmol/L Normal 98 - 11 0 mEq/L ADM SS CO2 [Moles/Vol] 27 mmol/L Normal 22 - 32 mEq/L ADM SS Creatinine [Mass/Vol] 0.53 mg/dL Normal 0.50 - 1.20 mg/dL AH ADM SS Comment on above: Interpretive Data: T esting performed on [employer] analyzer using enzymatic creatinine methodology. Electrolyte Balance 9.0 mEq/L Normal 4.0 - 15 .0 mEq/L ADM SS Eosinophils (Bld) [#/Vol] 0.1 103/mcL Normal 0.0 - 0.7 10^3/mcL AH Workflow SS Eosinophils/100 WBC (Bld) 0.5 % Normal 0.0 - 6.0 % Workflow SS Erythrocyte distribution width (RBC) [Ratio] 22.9 % High 11.5 - 15.5 % Workflow SS Estimated Glomerular Filtration Rate 117 ml/min/1.73sqm Invalid Interpretation Code ADM SS Comment on above: Interpretive Data: Stages of Chronic Kidney Disease (CKD) Stage Description eGFR(ml/min/1.73 sq.m.) CKD 1 Normal kidney function or >=90 normal kindney function with possible kidney damage (ex. Proteinuria) CKD 2 Kidney damage with mild loss 60-89 of kidney function CKD 3a Mild to moderate loss of kidney 45-59 function CKD 3b Moderate to severe loss of 30-44 of kindey function CKD 4 Severe loss of kidney function 15-29 CKD 5 Kidney failure <15 Note: (go live 2024) the eGFR calculation was updated to the 2020 CKD-EPI creatinine equation without a race factor to calculate the eGFR results. Globulin 3.4 G/dL Normal 2.5 - 4.2 G/dL ADM SS Glucose [Mass/Vol] 99 mg/dL Normal 70 - 110 mg/dL ADM SS Hematocrit (Bld) [Volume fraction] 29.6 % Low 34.0 - 46.0 % AH Workflow SS Hemoglobin (Bld) [Mass/Vol] 9.0 G/dL Low 12.0 - 16.0 G/dL AH Workflow SS Lymphocytes (Bld) [#/Vol] 1.6 103/mcL Normal 0.9 - 4.3 10^3/mcL AH Workflow SS Lymphocytes/100 WBC (Bld) 12.2 % Low 20.0 - 40.0 % Workflow SS MCH (RBC) [Entitic mass] 23.1 pg Low 27.0 - 33.0 pg AH Workflow SS MCHC 30.5 G/dL Low 32.0 - 36.0 G/dL AH Workflow SS MCV (RBC) [Entitic vol] 75.8 fL Low 80.0 - 99.0 fL AH Workflow SS Monocytes (Bld) [#/Vol] 0.7 103/mcL Normal 0.1 - 1.4 10^3/mcL AH Workflow SS Monocytes/100 WBC (Bld) 5.7 % Normal 2.0 - 13.0 % AH Workflow SS Neutrophils (Bld) [#/Vol] 10.4 103/mcL High 2.3 - 8.1 10^3/mcL AH Workflow SS Neutrophils/100 WBC (Bld) 81.4 % High 50.0 - 75.0 % AH Workflow SS Platelet mean volume (Bld) [Entitic vol] 8.7 fL Normal 6.6 - 10.5 fL AH Workflow SS Platelets (Bld) [#/Vol] 262 103/mcL Normal 150 - 450 10^3/mcL AH Workflow SS Potassium [Moles/Vol] 3.3 mmol/L Low 3.5 - 5.0 mEq/L ADM SS Protein [Mass/Vol] 7.2 G/dL Normal 5.7 - 8.2 G/dL AH ADM SS RBC (Bld) [#/Vol] 3.90 106/mcL Low 4.10 - 5.30 10^6/mcL AH Workflow SS Sodium [Moles/Vol] 143 mmol/L Normal 136 - 145 mEq/L ADM SS Urea nitrogen [Mass/Vol] 10.0 mg/dL Normal 8.0 - 22.0 mg/dL AH ADM SS Urea nitrogen/Creatinine [Mass ratio] 18.9 ratio Normal 10.0 - 22.0 ratio ADM SS WBC (Bld) [#/Vol] 12.8 103/mcL High 4.5 - 10.8 10^3/mcL AH Workflow SS .GFRon 03-09-2025 Estimated Glomerular Filtration Rate 115 ml/min/1.73sqm Normal [facility] Comment on above: Result Comment: Stag es of Chronic Kidney Disease (CKD)Stage Description eGFR(ml/min/1.73 sq.m.)CKD 1 Normal kidney function or >=90 normal kindney function with possible kidney damage (ex. Proteinuria)CKD 2 Kidney damage with mild loss 60-89 of kidney functionCKD 3a Mild to moderate loss of kidney 45-59 functionCKD 3b Moderate to severe loss of 30-44 of kindey function CKD 4 Severe loss of kidney function 15-29CKD 5 Kidney failure <15Note: (go live 2024) the eGFR calculation was updated to the KD-EPI creatinine equation without a race factor to calculate theeGFR results. Performed By: #### C BC, MORPH, ANEU, GFR, DIFF, CMP ####[place] [address] .Manual Diffon 03-09-2025 Basophil %, Manual 0.0 % Normal 0.0-2.5 [facility] Comment on above: Performed By: #### C BC, MORPH, ANEU, GFR, DIFF, CMP ####[place] [address] Basophil, Abs Manual 0.0 10 3/mcL Normal 0.0-0.3 [facility] Comment on above: Performed By: #### C BC, MORPH, ANEU, GFR, DIFF, CMP ####[place] [address] Eosinophil %, Manual 1.0 % Normal 0.0-6.0 [facility] Comment on above: Performed By: #### C BC, MORPH, ANEU, GFR, DIFF, CMP ####[place] [address] Eosinophil, Abs Manual 0.1 10 3/mcL Normal 0.0-0.7 [facility] Comment on above: Performed By: #### C BC, MORPH, ANEU, GFR, DIFF, CMP ####[place] [address] Lymphocyte %, Manual 17.0 % Low 20.0-40.0 [facility] Comment on above: Performed By: #### C BC, MORPH, ANEU, GFR, DIFF, CMP ####[place] [address] Lymphocyte, Abs Manual 1.1 10 3/mcL Normal 0.9-4.3 [facility] Comment on above: Performed By: #### C BC, MORPH, ANEU, GFR, DIFF, CMP ####[place] [address] Monocyte %, Manual 1.0 % Low 2.0-13.0 [facility] Comment on above: Performed By: #### C BC, MORPH, ANEU, GFR, DIFF, CMP ####[place] [address] Monocyte, Abs Manual 0.1 10 3/mcL Normal 0.1-1.4 [facility] Comment on above: Performed By: #### C BC, MORPH, ANEU, GFR, DIFF, CMP ####[place] [address] Neutrophil %, Manual 81.0 % High 50.0-75.0 [facility] Comment on above: Performed By: #### C BC, MORPH, ANEU, GFR, DIFF, CMP ####[place] [address] Neutrophil, Abs Manual 5.3 10 3/mcL Normal 2.3-8.1 [facility] Comment on above: Performed By: #### C BC, MORPH, ANEU, GFR, DIFF, CMP ####[place] [address] Nucleated RBC 1.0 /100 WBC Normal [facility] Comment on above: Performed By: #### C BC, MORPH, ANEU, GFR, DIFF, CMP ####[place] [address] .Morphon 03-09-2025 Anisocytosis Ql (Bld) 1+ Normal [facility] Comment on above: Performed By: #### C BC, MORPH, ANEU, GFR, DIFF, CMP ####[place] [address] Hypochrom 1+ Normal [facility] Comment on above: Performed By: #### C BC, MORPH, ANEU, GFR, DIFF, CMP ####[place] [address] Large Platelets Few Normal [facility] Comment on above: Performed By: #### C BC, MORPH, ANEU, GFR, DIFF, CMP ####[place] [address] Microcytosis 1+ Normal [facility] Comment on above: Performed By: #### C BC, MORPH, ANEU, GFR, DIFF, CMP ####[place] [address] Ovalocytes 1+ Normal [facility] Comment on above: Performed By: #### C BC, MORPH, ANEU, GFR, DIFF, CMP ####[place] [address] Platelet Estimate Normal [facility] Comment on above: Performed By: #### C BC, MORPH, ANEU, GFR, DIFF, CMP ####[place] [address] Poik 1+ [facility] Comment on above: Performed By: #### C BC, MORPH, ANEU, GFR, DIFF, CMP ####[place] [address] Polychrom 1+ [facility] Comment on above: Performed By: #### C BC, MORPH, ANEU, GFR, DIFF, CMP ####[place] [address] Stomatocytes 1+ [facility] Comment on above: Performed By: #### C BC, MORPH, ANEU, GFR, DIFF, CMP ####[place] [address] Tear Cell 1+ [facility] Comment on above: Performed By: #### C BC, MORPH, ANEU, GFR, DIFF, CMP ####[place] [address] Toxic Gran 1+ [facility] Comment on above: Performed By: #### C BC, MORPH, ANEU, GFR, DIFF, CMP ####[place] [address] .NEUABSon 03-09-2025 Neutrophil, Absolute 4.8 10 3/mcL Normal 2.3-8.1 [facility] Comment on above: Performed By: #### C BC, MORPH, ANEU, GFR, DIFF, CMP ####[place] [address] CBCon 03-09-2025 Erythrocyte distribution width (RBC) [Ratio] 22.6 % High 11.5-15.5 [facility] Comment on above: Performed By: #### C BC, MORPH, ANEU, GFR, DIFF, CMP ####[place] [address] Hematocrit (Bld) [Volume fraction] 30.8 % Low 34.0-46.0 [facility] Comment on above: Performed By: #### C BC, MORPH, ANEU, GFR, DIFF, CMP ####[place] [address] Hgb 9.4 G/dL Low 12.0-16.0 [facility] Comment on above: Performed By: #### C BC, MORPH, ANEU, GFR, DIFF, CMP ####[place] [address] MCH (RBC) [Entitic mass] 23.3 pg Low 27.0-33.0 [facility] Comment on above: Performed By: #### C BC, MORPH, ANEU, GFR, DIFF, CMP ####[place] [address] MCHC 30.4 G/dL Low 32.0-36.0 [facility] Comment on above: Performed By: #### C BC, MORPH, ANEU, GFR, DIFF, CMP ####[place] [address] MCV (RBC) [Entitic vol] 76.6 fL Low 80.0-99.0 [facility] Comment on above: Performed By: #### C BC, MORPH, ANEU, GFR, DIFF, CMP ####[place] [address] Platelet 298 10 3/mcL Normal 150-450 [facility] Comment on above: Performed By: #### C BC, MORPH, ANEU, GFR, DIFF, CMP ####[place] [address] Platelet mean volume (Bld) [Entitic vol] 8.4 fL Normal 6.6-10.5 [facility] Comment on above: Performed By: #### C BC, MORPH, ANEU, GFR, DIFF, CMP ####[place] [address] RBC 4.03 10 6/mcL Low 4.10-5.30 [facility] Comment on above: Performed By: #### C BC, MORPH, ANEU, GFR, DIFF, CMP ####[place] [address] WBC 6.6 10 3/mcL Normal 4.5-10.8 [facility] Comment on above: Performed By: #### C BC, MORPH, ANEU, GFR, DIFF, CMP ####[place] [address] CMPon 03-09-2025 Albumin Level 3.7 G/dL Normal 3.2-4.8 [facility] Comment on above: Performed By: #### C BC, MORPH, ANEU, GFR, DIFF, CMP ####[place] [address] Albumin/Globulin [Mass ratio] 1.1 {ratio} Normal 0.9-1.6 [facility] Comment on above: Performed By: #### C BC, MORPH, ANEU, GFR, DIFF, CMP ####[place] [address] ALP [Catalytic activity/Vol] 117 U/L Normal 38-126 [facility] Comment on above: Performed By: #### C BC, MORPH, ANEU, GFR, DIFF, CMP ####[place] [address] ALT [Catalytic activity/Vol] 19 U/L Normal 10-49 [facility] Comment on above: Performed By: #### C BC, MORPH, ANEU, GFR, DIFF, CMP ####[place] [address] AST [Catalytic activity/Vol] 18 U/L Normal 8-34 [facility] Comment on above: Performed By: #### C BC, MORPH, ANEU, GFR, DIFF, CMP ####[place] [address] Bili Total 0.60 mg/dL Normal 0.20-1.20 [facility] Comment on above: Result Comment: Use of this assay is not recommended for patients undergoing treatment with eltrombopag due to the potential for falsely elevated results. Performed By: #### C BC, MORPH, ANEU, GFR, DIFF, CMP ####[place] [address] BUN/Creatinine Ratio 16.1 ratio Normal 10.0-22.0 [facility] Comment on above: Performed By: #### C BC, MORPH, ANEU, GFR, DIFF, CMP ####[place] [address] Calcium [Mass/Vol] 9.7 mg/dL Normal 8.7-10.4 [facility] Comment on above: Performed By: #### C BC, MORPH, ANEU, GFR, DIFF, CMP ####[place] [address] Chloride [Moles/Vol] 107 mmol/L Normal 98-110 [facility] Comment on above: Performed By: #### C BC, MORPH, ANEU, GFR, DIFF, CMP ####[place] [address] CO2 [Moles/Vol] 26 mmol/L Normal 22-32 [facility] Comment on above: Performed By: #### C BC, MORPH, ANEU, GFR, DIFF, CMP ####[place] [address] Creatinine [Mass/Vol] 0.56 mg/dL Normal 0.50-1.20 [facility] Comment on above: Result Comment: Test ing performed on [employer] analyzer using enzymatic creatinine methodology. Performed By: #### C BC, MORPH, ANEU, GFR, DIFF, CMP ####[place] [address] Electrolyte Balance 7.0 mEq/L Normal 4.0-15.0 [facility] Comment on above: Performed By: #### C BC, MORPH, ANEU, GFR, DIFF, CMP ####[place] [address] Globulin 3.3 G/dL Normal 2.5-4.2 [facility] Comment on above: Performed By: #### C BC, MORPH, ANEU, GFR, DIFF, CMP ####[address] [address] Glucose [Mass/Vol] 108 mg/dL Normal 70-110 [facility] Comment on above: Performed By: #### C BC, MORPH, ANEU, GFR, DIFF, CMP ####[address] [address] Potassium [Moles/Vol] 3.7 mmol/L Normal 3.5-5.0 [facility] Comment on above: Performed By: #### C BC, MORPH, ANEU, GFR, DIFF, CMP ####[address] [address] Sodium [Moles/Vol] 140 mmol/L Normal 136-145 [facility] Comment on above: Performed By: #### C BC, MORPH, ANEU, GFR, DIFF, CMP ####[address] [address] Total Protein 7.0 G/dL Normal 5.7-8.2 [facility] Comment on above: Performed By: #### C BC, MORPH, ANEU, GFR, DIFF, CMP ####[address] [address] Urea nitrogen [Mass/Vol] 9.0 mg/dL Normal 8.0-22.0 [facility] Comment on above: Performed By: #### C BC, MORPH, ANEU, GFR, DIFF, CMP ####[address] [address] LABORATORYOrdered By: SYSTEM SYSTEM on 03-09-2025 Albumin BCP dye [Mass/Vol] 3.7 G/dL Normal 3.2 - 4.8 G/dL ADM SS Albumin/Globulin [Mass ratio] 1.1 {ratio} Normal 0.9 - 1.6 ratio ADM SS ALP [Catalytic activity/Vol] 117 U/L Normal 38 - 126 U/L ADM SS ALT No additional P-5'-P [Catalytic activity/Vol] 19 U/L Normal 10 - 49 U/L ADM SS Anisocytosis Ql (Bld) 1+ *NA* (03/09/25 9:23 AM) Invalid Interpretation Code AH Workflow SS AST [Catalytic activity/Vol] 18 U/L Normal 8 - 34 U/L AH ADM SS Basophils (Bld) [#/Vol] 0.0 103/mcL Normal 0.0 - 0.3 10^3/mcL AH Workflow SS Basophils/100 WBC (Bld) 0.0 % Normal 0.0 - 2.5 % AH Workflow SS Bilirubin [Mass/Vol] 0.60 mg/dL Normal 0.20 - 1.20 mg/dL AH ADM SS Comment on above: Interpretive Data: U se of this assay is not recommended for patients undergoing treatment with eltrombopag due to the potential for falsely elevated results. Calcium [Mass/Vol] 9.7 mg/dL Normal 8.7 - 10. 4 mg/dL AH ADM SS Chloride [Moles/Vol] 107 mmol/L Normal 98 - 11 0 mEq/L ADM SS CO2 [Moles/Vol] 26 mmol/L Normal 22 - 32 mEq/L AH ADM SS Creatinine [Mass/Vol] 0.56 mg/dL Normal 0.50 - 1.20 mg/dL ADM SS Comment on above: Interpretive Data: T esting performed on [employer] analyzer using enzymatic creatinine methodology. Dacrocytes LM Ql (Bld) 1+ *NA* (03/09/25 9:23 AM) Invalid Interpretation Code Workflow SS Electrolyte Balance 7.0 mEq/L Normal 4.0 - 15 .0 mEq/L ADM SS Eosinophils (Bld) [#/Vol] 0.1 103/mcL Normal 0.0 - 0.7 10^3/mcL Workflow SS Eosinophils/100 WBC (Bld) 1.0 % Normal 0.0 - 6.0 % AH Workflow SS Erythrocyte distribution width (RBC) [Ratio] 22.6 % High 11.5 - 15.5 % Workflow SS Estimated Glomerular Filtration Rate 115 ml/min/1.73sqm Invalid Interpretation Code ADM SS Comment on above: Interpretive Data: Stages of Chronic Kidney Disease (CKD) Stage Description eGFR(ml/min/1.73 sq.m.) CKD 1 Normal kidney function or >=90 normal kindney function with possible kidney damage (ex. Proteinuria) CKD 2 Kidney damage with mild loss 60-89 of kidney function CKD 3a Mild to moderate loss of kidney 45-59 function CKD 3b Moderate to severe loss of 30-44 of kindey function CKD 4 Severe loss of kidney function 15-29 CKD 5 Kidney failure <15 Note: (go live 2024) the eGFR calculation was updated to the 2020 CKD-EPI creatinine equation without a race factor to calculate the eGFR results. Globulin 3.3 G/dL Normal 2.5 - 4.2 G/dL AH ADM SS Glucose [Mass/Vol] 108 mg/dL Normal 70 - 110 mg/dL AH ADM SS Hematocrit (Bld) [Volume fraction] 30.8 % Low 34.0 - 46.0 % AH Workflow SS Hemoglobin (Bld) [Mass/Vol] 9.4 G/dL Low 12.0 - 16.0 G/dL AH Workflow SS Hypochromia Ql (Bld) 1+ *NA* (03/09/25 9:23 AM) Invalid Interpretation Code AH Workflow SS Large Platelets Few *NA* (03/09/25 9:23 AM) Invalid Interpretation Code AH Workflow SS Lymphocytes (Bld) [#/Vol] 1.1 103/mcL Normal 0.9 - 4.3 10^3/mcL AH Workflow SS Lymphocytes/100 WBC (Bld) 17.0 % Low 20.0 - 40.0 % AH Workflow SS MCH (RBC) [Entitic mass] 23.3 pg Low 27.0 - 33.0 pg AH Workflow SS MCHC 30.4 G/dL Low 32.0 - 36.0 G/dL AH Workflow SS MCV (RBC) [Entitic vol] 76.6 fL Low 80.0 - 99.0 fL AH Workflow SS Microcytes Ql (Bld) 1+ *NA* (03/09/25 9:23 AM) Invalid Interpretation Code AH Workflow SS Monocytes (Bld) [#/Vol] 0.1 103/mcL Normal 0.1 - 1.4 10^3/mcL AH Workflow SS Monocytes/100 WBC (Bld) 1.0 % Low 2.0 - 13.0 % AH Workflow SS Neutrophils (Bld) [#/Vol] 4.8 103/mcL Normal 2.3 - 8.1 10^3/mcL AH Workflow SS Neutrophils (Bld) [#/Vol] 5.3 103/mcL Normal 2.3 - 8.1 10^3/mcL AH Workflow SS Neutrophils/100 WBC (Bld) 81.0 % High 50.0 - 75.0 % AH Workflow SS Nucleated RBC 1.0 /100 WBC Invalid Interpretation Code AH Workflow SS Ovalocytes LM Ql (Bld) 1+ *NA* (03/09/25 9:23 AM) Invalid Interpretation Code AH Workflow SS Platelet mean volume (Bld) [Entitic vol] 8.4 fL Normal 6.6 - 10.5 fL AH Workflow SS Platelets (Bld) [#/Vol] 298 103/mcL Normal 150 - 450 10^3/mcL AH Workflow SS Platelets LM Ql (Bld) Normal *NA* (03/09/25 9:23 AM) Invalid Interpretation Code Workflow SS Poikilocytosis LM Ql (Bld) 1+ *NA* (03/09/25 9:23 AM) Invalid Interpretation Code Workflow SS Polychromasia LM Ql (Bld) 1+ *NA* (03/09/25 9:23 AM) Invalid Interpretation Code Workflow SS Potassium [Moles/Vol] 3.7 mmol/L Normal 3.5 - 5.0 mEq/L ADM SS Protein [Mass/Vol] 7.0 G/dL Normal 5.7 - 8.2 G/dL ADM SS RBC (Bld) [#/Vol] 4.03 106/mcL Low 4.10 - 5.30 10^6/mcL AH Workflow SS Sodium [Moles/Vol] 140 mmol/L Normal 136 - 145 mEq/L ADM SS Stomatocytes LM Ql (Bld) 1+ *NA* (03/09/25 9:23 AM) Invalid Interpretation Code Workflow SS Toxic granules LM Ql (Bld) 1+ *NA* (03/09/25 9:23 AM) Invalid Interpretation Code Workflow SS Urea nitrogen [Mass/Vol] 9.0 mg/dL Normal 8.0 - 22.0 mg/dL ADM SS Urea nitrogen/Creatinine [Mass ratio] 16.1 ratio Normal 10.0 - 22.0 ratio ADM SS WBC (Bld) [#/Vol] 6.6 103/mcL Normal 4.5 - 10.8 10^3/mcL AH Workflow SS .Auto Diffon 02-23-2025 Basophil, Absolute 0.0 10 3/mcL Normal 0.0-0.3 [facility] Comment on above: Performed By: #### A DIFF, CMP, ANEU, CBC, GFR ####[address] [address] Basophils/100 WBC (Bld) 0.3 % Normal 0.0-2.5 [facility] Comment on above: Performed By: #### A DIFF, CMP, ANEU, CBC, GFR ####[address] [address] Eosinophil, Absolute 0.1 10 3/mcL Normal 0.0-0.7 [facility] Comment on above: Performed By: #### A DIFF, CMP, ANEU, CBC, GFR ####[address] [address] Eosinophils/100 WBC (Bld) 0.5 % Normal 0.0-6.0 [facility] Comment on above: Performed By: #### A DIFF, CMP, ANEU, CBC, GFR ####[address] [address] Lymphocyte, Absolute 1.2 10 3/mcL Normal 0.9-4.3 [facility] Comment on above: Performed By: #### A DIFF, CMP, ANEU, CBC, GFR ####[address] [address] Lymphocytes/100 WBC (Bld) 10.5 % Low 20.0-40.0 [facility] Comment on above: Performed By: #### A DIFF, CMP, ANEU, CBC, GFR ####[address] [address] Monocyte, Absolute 0.6 10 3/mcL Normal 0.1-1.4 [facility] Comment on above: Performed By: #### A DIFF, CMP, ANEU, CBC, GFR ####[address] [address] Monocytes/100 WBC (Bld) 5.4 % Normal 2.0-13.0 [facility] Comment on above: Performed By: #### A DIFF, CMP, ANEU, CBC, GFR ####[address] [address] Neutrophils/100 WBC (Bld) 83.3 % High 50.0-75.0 [facility] Comment on above: Performed By: #### A DIFF, CMP, ANEU, CBC, GFR ####[place] [address] .GFRon 02-23-2025 Estimated Glomerular Filtration Rate 117 ml/min/1.73sqm Normal [facility] Comment on above: Result Comment: Stag es of Chronic Kidney Disease (CKD)Stage Description eGFR(ml/min/1.73 sq.m.)CKD 1 Normal kidney function or >=90 normal kindney function with possible kidney damage (ex. Proteinuria)CKD 2 Kidney damage with mild loss 60-89 of kidney functionCKD 3a Mild to moderate loss of kidney 45-59 functionCKD 3b Moderate to severe loss of 30-44 of kindey function CKD 4 Severe loss of kidney function 15-29CKD 5 Kidney failure <15Note: (go live 2024) the eGFR calculation was updated to the KD-EPI creatinine equation without a race factor to calculate theeGFR results. Performed By: #### A DIFF, CMP, ANEU, CBC, GFR ####[place] [address] .NEUABSon 02-23-2025 Neutrophil, Absolute 9.5 10 3/mcL High 2.3-8.1 [facility] Comment on above: Performed By: #### A DIFF, CMP, ANEU, CBC, GFR ####[place] [address] CBCon 02-23-2025 Erythrocyte distribution width (RBC) [Ratio] 23.0 % High 11.5-15.5 [facility] Comment on above: Performed By: #### A DIFF, CMP, ANEU, CBC, GFR ####[place] [address] Hematocrit (Bld) [Volume fraction] 31.6 % Low 34.0-46.0 [facility] Comment on above: Performed By: #### A DIFF, CMP, ANEU, CBC, GFR ####[place] [address] Hgb 9.7 G/dL Low 12.0-16.0 [facility] Comment on above: Performed By: #### A DIFF, CMP, ANEU, CBC, GFR ####[place] [address] MCH (RBC) [Entitic mass] 23.7 pg Low 27.0-33.0 [facility] Comment on above: Performed By: #### A DIFF, CMP, ANEU, CBC, GFR ####[place] [address] MCHC 30.5 G/dL Low 32.0-36.0 [facility] Comment on above: Performed By: #### A DIFF, CMP, ANEU, CBC, GFR ####[place] [address] MCV (RBC) [Entitic vol] 77.6 fL Low 80.0-99.0 [facility] Comment on above: Performed By: #### A DIFF, CMP, ANEU, CBC, GFR ####[place] [address] Platelet 281 10 3/mcL Normal 150-450 [facility] Comment on above: Performed By: #### A DIFF, CMP, ANEU, CBC, GFR ####[place] [address] Platelet mean volume (Bld) [Entitic vol] 8.8 fL Normal 6.6-10.5 [facility] Comment on above: Performed By: #### A DIFF, CMP, ANEU, CBC, GFR ####[place] [address] RBC 4.07 10 6/mcL Low 4.10-5.30 [facility] Comment on above: Performed By: #### A DIFF, CMP, ANEU, CBC, GFR ####[place] [address] WBC 11.4 10 3/mcL High 4.5-10.8 [facility] Comment on above: Performed By: #### A DIFF, CMP, ANEU, CBC, GFR ####[place] [address] CMPon 02-23-2025 Albumin Level 3.9 G/dL Normal 3.2-4.8 [facility] Comment on above: Performed By: #### A DIFF, CMP, ANEU, CBC, GFR ####[address] [address] Albumin/Globulin [Mass ratio] 1.2 {ratio} Normal 0.9-1.6 [facility] Comment on above: Performed By: #### A DIFF, CMP, ANEU, CBC, GFR ####[address] [address] ALP [Catalytic activity/Vol] 146 U/L High 38-126 [facility] Comment on above: Performed By: #### A DIFF, CMP, ANEU, CBC, GFR ####[address] [address] ALT [Catalytic activity/Vol] 13 U/L Normal 10-49 [facility] Comment on above: Performed By: #### A DIFF, CMP, ANEU, CBC, GFR ####[address] [address] AST [Catalytic activity/Vol] 16 U/L Normal 8-34 [facility] Comment on above: Performed By: #### A DIFF, CMP, ANEU, CBC, GFR ####[address] [address] Bili Total 0.50 mg/dL Normal 0.20-1.20 [facility] Comment on above: Result Comment: Use of this assay is not recommended for patients undergoing treatment with eltrombopag due to the potential for falsely elevated results. Performed By: #### A DIFF, CMP, ANEU, CBC, GFR ####[address] [address] BUN/Creatinine Ratio 15.4 ratio Normal 10.0-22.0 [facility] Comment on above: Performed By: #### A DIFF, CMP, ANEU, CBC, GFR ####[address] [address] Calcium [Mass/Vol] 9.3 mg/dL Normal 8.7-10.4 [facility] Comment on above: Performed By: #### A DIFF, CMP, ANEU, CBC, GFR ####[place] [id number] Chloride [Moles/Vol] 109 mmol/L Normal 98-110 [facility] Comment on above: Performed By: #### A DIFF, CMP, ANEU, CBC, GFR ####[address] [address] CO2 [Moles/Vol] 25 mmol/L Normal 22-32 [facility] Comment on above: Performed By: #### A DIFF, CMP, ANEU, CBC, GFR ####[place] [address] Creatinine [Mass/Vol] 0.52 mg/dL Normal 0.50-1.20 [facility] Comment on above: Result Comment: Test ing performed on [employer] analyzer using enzymatic creatinine methodology. Performed By: #### A DIFF, CMP, ANEU, CBC, GFR ####[place] [address] Electrolyte Balance 8.0 mEq/L Normal 4.0-15.0 [facility] Comment on above: Performed By: #### A DIFF, CMP, ANEU, CBC, GFR ####[place] [id number] Globulin 3.2 G/dL Normal 2.5-4.2 [facility] Comment on above: Performed By: #### A DIFF, CMP, ANEU, CBC, GFR ####[place] [id number] Glucose [Mass/Vol] 127 mg/dL High 70-110 [facility] Comment on above: Performed By: #### A DIFF, CMP, ANEU, CBC, GFR ####[place] [id number] Potassium [Moles/Vol] 3.7 mmol/L Normal 3.5-5.0 [facility] MAIN Comment on above: Performed By: #### A DIFF, CMP, ANEU, CBC, GFR ####[place] [id number] Sodium [Moles/Vol] 142 mmol/L Normal 136-145 [facility] Comment on above: Performed By: #### A DIFF, CMP, ANEU, CBC, GFR ####[id number] [place] [id number] Total Protein 7.1 G/dL Normal 5.7-8.2 [facility] Comment on above: Performed By: #### A DIFF, CMP, ANEU, CBC, GFR ####[id number] [place] [address] Urea nitrogen [Mass/Vol] 8.0 mg/dL Normal 8.0-22.0 [facility] Comment on above: Performed By: #### A DIFF, CMP, ANEU, CBC, GFR ####[place] [id number] [address] [place] [id number] LABORATORYOrdered By: SYSTEM SYSTEM on 02-23-2025 Albumin BCP dye [Mass/Vol] 3.9 G/dL Normal 3.2 - 4.8 G/dL ADM SS Albumin/Globulin [Mass ratio] 1.2 {ratio} Normal 0.9 - 1.6 ratio ADM SS ALP [Catalytic activity/Vol] 146 U/L High 38 - 126 U/L ADM SS ALT No additional P-5'-P [Catalytic activity/Vol] 13 U/L Normal 10 - 49 U/L ADM SS AST [Catalytic activity/Vol] 16 U/L Normal 8 - 34 U/L ADM SS Basophils (Bld) [#/Vol] 0.0 103/mcL Normal 0.0 - 0.3 10^3/mcL Workflow SS Basophils/100 WBC (Bld) 0.3 % Normal 0.0 - 2.5 % Workflow SS Bilirubin [Mass/Vol] 0.50 mg/dL Normal 0.20 - 1.20 mg/dL ADM SS Comment on above: Interpretive Data: U se of this assay is not recommended for patients undergoing treatment with eltrombopag due to the potential for falsely elevated results. Calcium [Mass/Vol] 9.3 mg/dL Normal 8.7 - 10. 4 mg/dL ADM SS Chloride [Moles/Vol] 109 mmol/L Normal 98 - 11 0 mEq/L ADM SS CO2 [Moles/Vol] 25 mmol/L Normal 22 - 32 mEq/L ADM SS Creatinine [Mass/Vol] 0.52 mg/dL Normal 0.50 - 1.20 mg/dL ADM SS Comment on above: Interpretive Data: T esting performed on [employer] analyzer using enzymatic creatinine methodology. Electrolyte Balance 8.0 mEq/L Normal 4.0 - 15 .0 mEq/L ADM SS Eosinophils (Bld) [#/Vol] 0.1 103/mcL Normal 0.0 - 0.7 10^3/mcL Workflow SS Eosinophils/100 WBC (Bld) 0.5 % Normal 0.0 - 6.0 % Workflow SS Erythrocyte distribution width (RBC) [Ratio] 23.0 % High 11.5 - 15.5 % Workflow SS Estimated Glomerular Filtration Rate 117 ml/min/1.73sqm Invalid Interpretation Code ADM SS Comment on above: Interpretive Data: Stages of Chronic Kidney Disease (CKD) Stage Description eGFR(ml/min/1.73 sq.m.) CKD 1 Normal kidney function or >=90 normal kindney function with possible kidney damage (ex. Proteinuria) CKD 2 Kidney damage with mild loss 60-89 of kidney function CKD 3a Mild to moderate loss of kidney 45-59 function CKD 3b Moderate to severe loss of 30-44 of kindey function CKD 4 Severe loss of kidney function 15-29 CKD 5 Kidney failure <15 Note: (go live 2024) the eGFR calculation was updated to the 2020 CKD-EPI creatinine equation without a race factor to calculate the eGFR results. Globulin 3.2 G/dL Normal 2.5 - 4.2 G/dL ADM SS Glucose [Mass/Vol] 127 mg/dL High 70 - 110 mg/dL ADM SS Hematocrit (Bld) [Volume fraction] 31.6 % Low 34.0 - 46.0 % Workflow SS Hemoglobin (Bld) [Mass/Vol] 9.7 G/dL Low 12.0 - 16.0 G/dL Workflow SS Lymphocytes (Bld) [#/Vol] 1.2 103/mcL Normal 0.9 - 4.3 10^3/mcL Workflow SS Lymphocytes/100 WBC (Bld) 10.5 % Low 20.0 - 40.0 % Workflow SS MCH (RBC) [Entitic mass] 23.7 pg Low 27.0 - 33.0 pg Workflow SS MCHC 30.5 G/dL Low 32.0 - 36.0 G/dL AH Workflow SS MCV (RBC) [Entitic vol] 77.6 fL Low 80.0 - 99.0 fL AH Workflow SS Monocytes (Bld) [#/Vol] 0.6 103/mcL Normal 0.1 - 1.4 10^3/mcL AH Workflow SS Monocytes/100 WBC (Bld) 5.4 % Normal 2.0 - 13.0 % AH Workflow SS Neutrophils (Bld) [#/Vol] 9.5 103/mcL High 2.3 - 8.1 10^3/mcL AH Workflow SS Neutrophils/100 WBC (Bld) 83.3 % High 50.0 - 75.0 % AH Workflow SS Platelet mean volume (Bld) [Entitic vol] 8.8 fL Normal 6.6 - 10.5 fL AH Workflow SS Platelets (Bld) [#/Vol] 281 103/mcL Normal 150 - 450 10^3/mcL AH Workflow SS Potassium [Moles/Vol] 3.7 mmol/L Normal 3.5 - 5.0 mEq/L AH ADM SS Protein [Mass/Vol] 7.1 G/dL Normal 5.7 - 8.2 G/dL AH ADM SS RBC (Bld) [#/Vol] 4.07 106/mcL Low 4.10 - 5.30 10^6/mcL AH Workflow SS Sodium [Moles/Vol] 142 mmol/L Normal 136 - 145 mEq/L AH ADM SS Urea nitrogen [Mass/Vol] 8.0 mg/dL Normal 8.0 - 22.0 mg/dL AH ADM SS Urea nitrogen/Creatinine [Mass ratio] 15.4 ratio Normal 10.0 - 22.0 ratio AH ADM SS WBC (Bld) [#/Vol] 11.4 103/mcL High 4.5 - 10.8 10^3/mcL AH Workflow SS .GFRon 02-09-2025 Estimated Glomerular Filtration Rate 118 ml/min/1.73sqm Normal [facility] Comment on above: Result Comment: Stag es of Chronic Kidney Disease (CKD)Stage Description eGFR(ml/min/1.73 sq.m.)CKD 1 Normal kidney function or >=90 normal kindney function with possible kidney damage (ex. Proteinuria)CKD 2 Kidney damage with mild loss 60-89 of kidney functionCKD 3a Mild to moderate loss of kidney 45-59 functionCKD 3b Moderate to severe loss of 30-44 of kindey function CKD 4 Severe loss of kidney function 15-29CKD 5 Kidney failure <15Note: (go live 2024) the eGFR calculation was updated to the KD-EPI creatinine equation without a race factor to calculate theeGFR results. Performed By: #### C MP, CBC, MORPH, GFR, DIFF, ANEU ####[place] [address] .Manual Diffon 02-09-2025 Bands 5.0 % Normal 0.0-5.0 [facility] Comment on above: Performed By: #### C MP, CBC, MORPH, GFR, DIFF, ANEU ####[place] [address] Basophil %, Manual 0.0 % Normal 0.0-2.5 [facility] Comment on above: Performed By: #### C MP, CBC, MORPH, GFR, DIFF, ANEU ####[place] [address] Basophil, Abs Manual 0.0 10 3/mcL Normal 0.0-0.3 [facility] Comment on above: Performed By: #### C MP, CBC, MORPH, GFR, DIFF, ANEU ####[place] [address] Eosinophil %, Manual 0.0 % Normal 0.0-6.0 [facility] Comment on above: Performed By: #### C MP, CBC, MORPH, GFR, DIFF, ANEU ####[place] [address] Eosinophil, Abs Manual 0.0 10 3/mcL Normal 0.0-0.7 [facility] Comment on above: Performed By: #### C MP, CBC, MORPH, GFR, DIFF, ANEU ####[place] [address] Lymphocyte %, Manual 15.0 % Low 20.0-40.0 [facility] Comment on above: Performed By: #### C MP, CBC, MORPH, GFR, DIFF, ANEU ####[address] [address] [place] [address] Lymphocyte, Abs Manual 1.6 10 3/mcL Normal 0.9-4.3 [facility] Comment on above: Performed By: #### C MP, CBC, MORPH, GFR, DIFF, ANEU ####[place] [address] Monocyte %, Manual 5.0 % Normal 2.0-13.0 [facility] Comment on above: Performed By: #### C MP, CBC, MORPH, GFR, DIFF, ANEU ####[place] [address] Monocyte, Abs Manual 0.5 10 3/mcL Normal 0.1-1.4 [facility] Comment on above: Performed By: #### C MP, CBC, MORPH, GFR, DIFF, ANEU ####[place] [address] Myelocyte 1.0 % Normal [facility] Comment on above: Performed By: #### C MP, CBC, MORPH, GFR, DIFF, ANEU ####[place] [address] Neutrophil %, Manual 74.0 % Normal 50.0-75.0 [facility] Comment on above: Performed By: #### C MP, CBC, MORPH, GFR, DIFF, ANEU ####[place] [address] Neutrophil, Abs Manual 8.2 10 3/mcL High 2.3-8.1 [facility] Comment on above: Performed By: #### C MP, CBC, MORPH, GFR, DIFF, ANEU ####[place] [address] Nucleated RBC 0.0 /100 WBC Normal [facility] Comment on above: Performed By: #### C MP, CBC, MORPH, GFR, DIFF, ANEU ####[place] [address] .Morphon 02-09-2025 Hypochrom 1+ Normal [facility] Comment on above: Performed By: #### C MP, CBC, MORPH, GFR, DIFF, ANEU ####[place] [address] Microcytosis 1+ Normal [facility] Comment on above: Performed By: #### C MP, CBC, MORPH, GFR, DIFF, ANEU ####[place] [address] Ovalocytes 1+ Normal [facility] Comment on above: Performed By: #### C MP, CBC, MORPH, GFR, DIFF, ANEU ####[place] [address] Platelet Estimate Normal [facility] MAIN Comment on above: Performed By: #### C MP, CBC, MORPH, GFR, DIFF, ANEU ####[place] [address] Poik 1+ Normal [facility] Comment on above: Performed By: #### C MP, CBC, MORPH, GFR, DIFF, ANEU ####[place] [address] Tear Cell 1+ [facility] MAIN Comment on above: Performed By: #### C MP, CBC, MORPH, GFR, DIFF, ANEU ####[place] [address] Toxic Gran 1+ [facility] MAIN Comment on above: Performed By: #### C MP, CBC, MORPH, GFR, DIFF, ANEU ####[place] [address] .NEUABSon 02-09-2025 Neutrophil, Absolute 8.2 10 3/mcL High 2.3-8.1 [facility] Comment on above: Performed By: #### C MP, CBC, MORPH, GFR, DIFF, ANEU ####[place] [address] CBCon 02-09-2025 Erythrocyte distribution width (RBC) [Ratio] 23.2 % High 11.5-15.5 [facility] Comment on above: Performed By: #### C MP, CBC, MORPH, GFR, DIFF, ANEU ####[place] [address] Hematocrit (Bld) [Volume fraction] 31.4 % Low 34.0-46.0 [facility] Comment on above: Performed By: #### C MP, CBC, MORPH, GFR, DIFF, ANEU ####[place] [address] Hgb 9.6 G/dL Low 12.0-16.0 [facility] Comment on above: Performed By: #### C MP, CBC, MORPH, GFR, DIFF, ANEU ####[place] [address] MCH (RBC) [Entitic mass] 23.8 pg Low 27.0-33.0 [facility] Comment on above: Performed By: #### C MP, CBC, MORPH, GFR, DIFF, ANEU ####[place] [address] MCHC 30.4 G/dL Low 32.0-36.0 [facility] Comment on above: Performed By: #### C MP, CBC, MORPH, GFR, DIFF, ANEU ####[place] [address] MCV (RBC) [Entitic vol] 78.2 fL Low 80.0-99.0 [facility] Comment on above: Performed By: #### C MP, CBC, MORPH, GFR, DIFF, ANEU ####[place] [address] Platelet 306 10 3/mcL Normal 150-450 [facility] Comment on above: Performed By: #### C MP, CBC, MORPH, GFR, DIFF, ANEU ####[place] [address] Platelet mean volume (Bld) [Entitic vol] 8.7 fL Normal 6.6-10.5 [facility] Comment on above: Performed By: #### C MP, CBC, MORPH, GFR, DIFF, ANEU ####[place] [address] RBC 4.02 10 6/mcL Low 4.10-5.30 [facility] Comment on above: Performed By: #### C MP, CBC, MORPH, GFR, DIFF, ANEU ####[place] [address] WBC 10.4 10 3/mcL Normal 4.5-10.8 [facility] Comment on above: Performed By: #### C MP, CBC, MORPH, GFR, DIFF, ANEU ####[place] [address] CMPon 02-09-2025 Albumin Level 3.8 G/dL Normal 3.2-4.8 [facility] Comment on above: Performed By: #### C MP, CBC, MORPH, GFR, DIFF, ANEU ####[place] [address] Albumin/Globulin [Mass ratio] 1.1 {ratio} Normal 0.9-1.6 [facility] Comment on above: Performed By: #### C MP, CBC, MORPH, GFR, DIFF, ANEU ####[place] [address] ALP [Catalytic activity/Vol] 134 U/L High 38-126 [facility] Comment on above: Performed By: #### C MP, CBC, MORPH, GFR, DIFF, ANEU ####[place] [address] ALT [Catalytic activity/Vol] 15 U/L Normal 10-49 [facility] Comment on above: Performed By: #### C MP, CBC, MORPH, GFR, DIFF, ANEU ####[place] [address] AST [Catalytic activity/Vol] 14 U/L Normal 8-34 [facility] Comment on above: Performed By: #### C MP, CBC, MORPH, GFR, DIFF, ANEU ####[place] [address] Bili Total 0.60 mg/dL Normal 0.20-1.20 [facility] Comment on above: Result Comment: Use of this assay is not recommended for patients undergoing treatment with eltrombopag due to the potential for falsely elevated results. Performed By: #### C MP, CBC, MORPH, GFR, DIFF, ANEU ####[place] [address] BUN/Creatinine Ratio 11.8 ratio Normal 10.0-22.0 [facility] Comment on above: Performed By: #### C MP, CBC, MORPH, GFR, DIFF, ANEU ####[address] [address] Calcium [Mass/Vol] 9.1 mg/dL Normal 8.7-10.4 [facility] Comment on above: Performed By: #### C MP, CBC, MORPH, GFR, DIFF, ANEU ####[address] [address] Chloride [Moles/Vol] 106 mmol/L Normal 98-110 [facility] Comment on above: Performed By: #### C MP, CBC, MORPH, GFR, DIFF, ANEU ####[address] [address] CO2 [Moles/Vol] 26 mmol/L Normal 22-32 [facility] Comment on above: Performed By: #### C MP, CBC, MORPH, GFR, DIFF, ANEU ####[place] [address] Creatinine [Mass/Vol] 0.51 mg/dL Normal 0.50-1.20 [facility] Comment on above: Result Comment: Test ing performed on [employer] analyzer using enzymatic creatinine methodology. Performed By: #### C MP, CBC, MORPH, GFR, DIFF, ANEU ####[place] [address] Electrolyte Balance 10.0 mEq/L Normal 4.0-15.0 [facility] Comment on above: Performed By: #### C MP, CBC, MORPH, GFR, DIFF, ANEU ####[address] [address] Globulin 3.4 G/dL Normal 2.5-4.2 [facility] Comment on above: Performed By: #### C MP, CBC, MORPH, GFR, DIFF, ANEU ####[place] [id number] Glucose [Mass/Vol] 97 mg/dL Normal 70-110 [facility] Comment on above: Performed By: #### C MP, CBC, MORPH, GFR, DIFF, ANEU ####[place] [address] Potassium [Moles/Vol] 3.8 mmol/L Normal 3.5-5.0 [facility] Comment on above: Performed By: #### C MP, CBC, MORPH, GFR, DIFF, ANEU ####[address] [address] Sodium [Moles/Vol] 142 mmol/L Normal 136-145 [facility] Comment on above: Performed By: #### C MP, CBC, MORPH, GFR, DIFF, ANEU ####[address] [address] Total Protein 7.2 G/dL Normal 5.7-8.2 [facility] Comment on above: Performed By: #### C MP, CBC, MORPH, GFR, DIFF, ANEU ####[address] [address] Urea nitrogen [Mass/Vol] 6.0 mg/dL Low 8.0-22.0 [facility] Comment on above: Performed By: #### C MP, CBC, MORPH, GFR, DIFF, ANEU ####[place] [address] LABORATORYOrdered By: SYSTEM SYSTEM on 02-09-2025 Albumin BCP dye [Mass/Vol] 3.8 G/dL Normal 3.2 - 4.8 G/dL ADM SS Albumin/Globulin [Mass ratio] 1.1 {ratio} Normal 0.9 - 1.6 ratio ADM SS ALP [Catalytic activity/Vol] 134 U/L High 38 - 126 U/L ADM SS ALT No additional P-5'-P [Catalytic activity/Vol] 15 U/L Normal 10 - 49 U/L ADM SS AST [Catalytic activity/Vol] 14 U/L Normal 8 - 34 U/L ADM SS Band form neutrophils/100 WBC (Bld) 5.0 % Normal 0.0 - 5.0 % Workflow SS Basophils (Bld) [#/Vol] 0.0 103/mcL Normal 0.0 - 0.3 10^3/mcL Workflow SS Basophils/100 WBC (Bld) 0.0 % Normal 0.0 - 2.5 % Workflow SS Bilirubin [Mass/Vol] 0.60 mg/dL Normal 0.20 - 1.20 mg/dL AH ADM SS Comment on above: Interpretive Data: U se of this assay is not recommended for patients undergoing treatment with eltrombopag due to the potential for falsely elevated results. Calcium [Mass/Vol] 9.1 mg/dL Normal 8.7 - 10. 4 mg/dL AH ADM SS Chloride [Moles/Vol] 106 mmol/L Normal 98 - 11 0 mEq/L AH ADM SS CO2 [Moles/Vol] 26 mmol/L Normal 22 - 32 mEq/L AH ADM SS Creatinine [Mass/Vol] 0.51 mg/dL Normal 0.50 - 1.20 mg/dL AH ADM SS Comment on above: Interpretive Data: T esting performed on [employer] analyzer using enzymatic creatinine methodology. Dacrocytes LM Ql (Bld) 1+ *NA* (02/09/25 9:19 AM) Invalid Interpretation Code AH Workflow SS Electrolyte Balance 10.0 mEq/L Normal 4.0 - 15 .0 mEq/L ADM SS Eosinophils (Bld) [#/Vol] 0.0 103/mcL Normal 0.0 - 0.7 10^3/mcL AH Workflow SS Eosinophils/100 WBC (Bld) 0.0 % Normal 0.0 - 6.0 % AH Workflow SS Erythrocyte distribution width (RBC) [Ratio] 23.2 % High 11.5 - 15.5 % AH Workflow SS Estimated Glomerular Filtration Rate 118 ml/min/1.73sqm Invalid Interpretation Code AH ADM SS Comment on above: Interpretive Data: Stages of Chronic Kidney Disease (CKD) Stage Description eGFR(ml/min/1.73 sq.m.) CKD 1 Normal kidney function or >=90 normal kindney function with possible kidney damage (ex. Proteinuria) CKD 2 Kidney damage with mild loss 60-89 of kidney function CKD 3a Mild to moderate loss of kidney 45-59 function CKD 3b Moderate to severe loss of 30-44 of kindey function CKD 4 Severe loss of kidney function 15-29 CKD 5 Kidney failure <15 Note: (go live 2024) the eGFR calculation was updated to the 2020 CKD-EPI creatinine equation without a race factor to calculate the eGFR results. Globulin 3.4 G/dL Normal 2.5 - 4.2 G/dL AH ADM SS Glucose [Mass/Vol] 97 mg/dL Normal 70 - 110 mg/dL AH ADM SS Hematocrit (Bld) [Volume fraction] 31.4 % Low 34.0 - 46.0 % AH Workflow SS Hemoglobin (Bld) [Mass/Vol] 9.6 G/dL Low 12.0 - 16.0 G/dL AH Workflow SS Hypochromia Ql (Bld) 1+ *NA* (02/09/25 9:19 AM) Invalid Interpretation Code AH Workflow SS Lymphocytes (Bld) [#/Vol] 1.6 103/mcL Normal 0.9 - 4.3 10^3/mcL AH Workflow SS Lymphocytes/100 WBC (Bld) 15.0 % Low 20.0 - 40.0 % AH Workflow SS MCH (RBC) [Entitic mass] 23.8 pg Low 27.0 - 33.0 pg AH Workflow SS MCHC 30.4 G/dL Low 32.0 - 36.0 G/dL AH Workflow SS MCV (RBC) [Entitic vol] 78.2 fL Low 80.0 - 99.0 fL AH Workflow SS Microcytes Ql (Bld) 1+ *NA* (02/09/25 9:19 AM) Invalid Interpretation Code Workflow SS Monocytes (Bld) [#/Vol] 0.5 103/mcL Normal 0.1 - 1.4 10^3/mcL AH Workflow SS Monocytes/100 WBC (Bld) 5.0 % Normal 2.0 - 13.0 % AH Workflow SS Myelocytes/100 WBC (Bld) 1.0 % Invalid Interpretation Code Workflow SS Neutrophils/100 WBC (Bld) 74.0 % Normal 50.0 - 75.0 % AH Workflow SS Nucleated RBC 0.0 /100 WBC Invalid Interpretation Code Workflow SS Ovalocytes LM Ql (Bld) 1+ *NA* (02/09/25 9:19 AM) Invalid Interpretation Code Workflow SS Platelet mean volume (Bld) [Entitic vol] 8.7 fL Normal 6.6 - 10.5 fL AH Workflow SS Platelets (Bld) [#/Vol] 306 103/mcL Normal 150 - 450 10^3/mcL AH Workflow SS Platelets LM Ql (Bld) Normal *NA* (02/09/25 9:19 AM) Invalid Interpretation Code Workflow SS Poikilocytosis LM Ql (Bld) 1+ *NA* (02/09/25 9:19 AM) Invalid Interpretation Code AH Workflow SS Potassium [Moles/Vol] 3.8 mmol/L Normal 3.5 - 5.0 mEq/L AH ADM SS Protein [Mass/Vol] 7.2 G/dL Normal 5.7 - 8.2 G/dL AH ADM SS RBC (Bld) [#/Vol] 4.02 106/mcL Low 4.10 - 5.30 10^6/mcL AH Workflow SS Sodium [Moles/Vol] 142 mmol/L Normal 136 - 145 mEq/L AH ADM SS Toxic granules LM Ql (Bld) 1+ *NA* (02/09/25 9:19 AM) Invalid Interpretation Code AH Workflow SS Urea nitrogen [Mass/Vol] 6.0 mg/dL Low 8.0 - 22.0 mg/dL AH ADM SS Urea nitrogen/Creatinine [Mass ratio] 11.8 ratio Normal 10.0 - 22.0 ratio AH ADM SS WBC (Bld) [#/Vol] 10.4 103/mcL Normal 4.5 - 10.8 10^3/mcL AH Workflow SS Laboratory - Hematology and Cell countsOrdered By: SYSTEM SYSTEM on 02-09-2025 Neutrophils (Bld) [#/Vol] 8.2 103/mcL High 2.3 - 8.1 10^3/mcL Workflow SS .GFRon 01-26-2025 Estimated Glomerular Filtration Rate 117 ml/min/1.73sqm Normal [facility] Comment on above: Result Comment: Stag es of Chronic Kidney Disease (CKD)Stage Description eGFR(ml/min/1.73 sq.m.)CKD 1 Normal kidney function or >=90 normal kindney function with possible kidney damage (ex. Proteinuria)CKD 2 Kidney damage with mild loss 60-89 of kidney functionCKD 3a Mild to moderate loss of kidney 45-59 functionCKD 3b Moderate to severe loss of 30-44 of kindey function CKD 4 Severe loss of kidney function 15-29CKD 5 Kidney failure <15Note: (go live 2024) the eGFR calculation was updated to the KD-EPI creatinine equation without a race factor to calculate theeGFR results. Performed By: #### C BC, DIFF, GFR, CMP, ANEU, MORPH ####[place] [address] .Manual Diffon 01-26-2025 Bands 1.0 % Normal 0.0-5.0 [facility] Comment on above: Performed By: #### C BC, DIFF, GFR, CMP, ANEU, MORPH ####[place] [address] Basophil %, Manual 1.0 % Normal 0.0-2.5 [facility] Comment on above: Performed By: #### C BC, DIFF, GFR, CMP, ANEU, MORPH ####[place] [id number] Basophil, Abs Manual 0.1 10 3/mcL Normal 0.0-0.3 [facility] Comment on above: Performed By: #### C BC, DIFF, GFR, CMP, ANEU, MORPH ####[place] [address] Eosinophil %, Manual 0.0 % Normal 0.0-6.0 [facility] Comment on above: Performed By: #### C BC, DIFF, GFR, CMP, ANEU, MORPH ####[place] [id number] Eosinophil, Abs Manual 0.0 10 3/mcL Normal 0.0-0.7 [facility] Comment on above: Performed By: #### C BC, DIFF, GFR, CMP, ANEU, MORPH ####[place] [address] Lymphocyte %, Manual 11.0 % Low 20.0-40.0 [facility] Comment on above: Performed By: #### C BC, DIFF, GFR, CMP, ANEU, MORPH ####[place] [address] Lymphocyte, Abs Manual 1.4 10 3/mcL Normal 0.9-4.3 [facility] Comment on above: Performed By: #### C BC, DIFF, GFR, CMP, ANEU, MORPH ####[place] [address] Monocyte %, Manual 6.0 % Normal 2.0-13.0 [facility] Comment on above: Performed By: #### C BC, DIFF, GFR, CMP, ANEU, MORPH ####[place] [address] Monocyte, Abs Manual 0.8 10 3/mcL Normal 0.1-1.4 [facility] Comment on above: Performed By: #### C BC, DIFF, GFR, CMP, ANEU, MORPH ####[place] [address] Neutrophil %, Manual 81.0 % High 50.0-75.0 [facility] Comment on above: Performed By: #### C BC, DIFF, GFR, CMP, ANEU, MORPH ####[place] [address] Neutrophil, Abs Manual 10.2 10 3/mcL High 2.3-8.1 [facility] Comment on above: Performed By: #### C BC, DIFF, GFR, CMP, ANEU, MORPH ####[place] [address] Nucleated RBC 1.0 /100 WBC Normal [facility] Comment on above: Performed By: #### C BC, DIFF, GFR, CMP, ANEU, MORPH ####[place] [address] .Morphon 01-26-2025 Anisocytosis Ql (Bld) 2+ Normal [facility] Comment on above: Performed By: #### C BC, DIFF, GFR, CMP, ANEU, MORPH ####[place] [address] Microcytosis 1+ Normal [facility] Comment on above: Performed By: #### C BC, DIFF, GFR, CMP, ANEU, MORPH ####[place] [address] Ovalocytes 1+ Normal [facility] Comment on above: Performed By: #### C BC, DIFF, GFR, CMP, ANEU, MORPH ####[place] [address] Platelet Estimate Normal [facility] MAIN Comment on above: Performed By: #### C BC, DIFF, GFR, CMP, ANEU, MORPH ####[place] [address] Poik 1+ Normal [facility] Comment on above: Performed By: #### C BC, DIFF, GFR, CMP, ANEU, MORPH ####[place] [address] Toxic Gran 1+ Normal [facility] Comment on above: Performed By: #### C BC, DIFF, GFR, CMP, ANEU, MORPH ####[place] [address] .NEUABSon 01-26-2025 Neutrophil, Absolute 10.1 10 3/mcL High 2.3-8.1 [facility] Comment on above: Performed By: #### C BC, DIFF, GFR, CMP, ANEU, MORPH ####[place] [address] CBCon 01-26-2025 Erythrocyte distribution width (RBC) [Ratio] 23.3 % High 11.5-15.5 [facility] Comment on above: Performed By: #### C BC, DIFF, GFR, CMP, ANEU, MORPH ####[place] [address] Hematocrit (Bld) [Volume fraction] 31.5 % Low 34.0-46.0 [facility] Comment on above: Performed By: #### C BC, DIFF, GFR, CMP, ANEU, MORPH ####[place] [address] Hgb 9.6 G/dL Low 12.0-16.0 [facility] Comment on above: Performed By: #### C BC, DIFF, GFR, CMP, ANEU, MORPH ####[place] [address] MCH (RBC) [Entitic mass] 23.7 pg Low 27.0-33.0 [facility] Comment on above: Performed By: #### C BC, DIFF, GFR, CMP, ANEU, MORPH ####[place] [address] MCHC 30.4 G/dL Low 32.0-36.0 [facility] Comment on above: Performed By: #### C BC, DIFF, GFR, CMP, ANEU, MORPH ####[place] [address] MCV (RBC) [Entitic vol] 77.7 fL Low 80.0-99.0 [facility] Comment on above: Performed By: #### C BC, DIFF, GFR, CMP, ANEU, MORPH ####[place] [address] Platelet 266 10 3/mcL Normal 150-450 [facility] Comment on above: Performed By: #### C BC, DIFF, GFR, CMP, ANEU, MORPH ####[place] [address] Platelet mean volume (Bld) [Entitic vol] 8.7 fL Normal 6.6-10.5 [facility] Comment on above: Performed By: #### C BC, DIFF, GFR, CMP, ANEU, MORPH ####[place] [address] RBC 4.05 10 6/mcL Low 4.10-5.30 [facility] Comment on above: Performed By: #### C BC, DIFF, GFR, CMP, ANEU, MORPH ####[place] [address] WBC 12.5 10 3/mcL High 4.5-10.8 [facility] Comment on above: Performed By: #### C BC, DIFF, GFR, CMP, ANEU, MORPH ####[place] [address] CMPon 01-26-2025 Albumin Level 4.0 G/dL Normal 3.2-4.8 [facility] [facility] Comment on above: Performed By: #### C BC, DIFF, GFR, CMP, ANEU, MORPH ####[place] [address] Albumin/Globulin [Mass ratio] 1.3 {ratio} Normal 0.9-1.6 [facility] Comment on above: Performed By: #### C BC, DIFF, GFR, CMP, ANEU, MORPH ####[place] [address] ALP [Catalytic activity/Vol] 149 U/L High 38-126 [facility] Comment on above: Performed By: #### C BC, DIFF, GFR, CMP, ANEU, MORPH ####[address] [address] ALT [Catalytic activity/Vol] 14 U/L Normal 10-49 [facility] Comment on above: Performed By: #### C BC, DIFF, GFR, CMP, ANEU, MORPH ####[address] [address] AST [Catalytic activity/Vol] 18 U/L Normal 8-34 [facility] Comment on above: Performed By: #### C BC, DIFF, GFR, CMP, ANEU, MORPH ####[place] [id number] Bili Total 0.70 mg/dL Normal 0.20-1.20 [facility] Comment on above: Result Comment: Use of this assay is not recommended for patients undergoing treatment with eltrombopag due to the potential for falsely elevated results. Performed By: #### C BC, DIFF, GFR, CMP, ANEU, MORPH ####[place] [address] BUN/Creatinine Ratio 21.2 ratio Normal 10.0-22.0 [facility] Comment on above: Performed By: #### C BC, DIFF, GFR, CMP, ANEU, MORPH ####[place] [address] Calcium [Mass/Vol] 9.2 mg/dL Normal 8.7-10.4 [facility] MAIN Comment on above: Performed By: #### C BC, DIFF, GFR, CMP, ANEU, MORPH ####[place] [id number] Chloride [Moles/Vol] 109 mmol/L Normal 98-110 [facility] Comment on above: Performed By: #### C BC, DIFF, GFR, CMP, ANEU, MORPH ####[place] [id number] CO2 [Moles/Vol] 25 mmol/L Normal 22-32 [facility] Comment on above: Performed By: #### C BC, DIFF, GFR, CMP, ANEU, MORPH ####[place] [address] [place], [place] [address] Creatinine [Mass/Vol] 0.52 mg/dL Normal 0.50-1.20 [facility] MAIN Comment on above: Result Comment: Test ing performed on [employer] analyzer using enzymatic creatinine methodology. Performed By: #### C BC, DIFF, GFR, CMP, ANEU, MORPH ####[address] [address] Electrolyte Balance 5.0 mEq/L Normal 4.0-15.0 [facility] MAIN Comment on above: Performed By: #### C BC, DIFF, GFR, CMP, ANEU, MORPH ####[address] [address] Globulin 3.1 G/dL Normal 2.5-4.2 [facility] Comment on above: Performed By: #### C BC, DIFF, GFR, CMP, ANEU, MORPH ####[address] [address] Glucose [Mass/Vol] 111 mg/dL High 70-110 [facility] MAIN Comment on above: Performed By: #### C BC, DIFF, GFR, CMP, ANEU, MORPH ####[address] [address] Potassium [Moles/Vol] 3.6 mmol/L Normal 3.5-5.0 [facility] MAIN Comment on above: Performed By: #### C BC, DIFF, GFR, CMP, ANEU, MORPH ####[address] [address] Sodium [Moles/Vol] 139 mmol/L Normal 136-145 [facility] MAIN Comment on above: Performed By: #### C BC, DIFF, GFR, CMP, ANEU, MORPH ####[address] [address] Total Protein 7.1 G/dL Normal 5.7-8.2 [facility] Comment on above: Performed By: #### C BC, DIFF, GFR, CMP, ANEU, MORPH ####[address] [address] Urea nitrogen [Mass/Vol] 11.0 mg/dL Normal 8.0-22.0 [facility] Comment on above: Performed By: #### C BC, DIFF, GFR, CMP, ANEU, MORPH ####[place] [address] LABORATORYOrdered By: SYSTEM SYSTEM on 01-26-2025 Albumin BCP dye [Mass/Vol] 4.0 G/dL Normal 3.2 - 4.8 G/dL AH ADM SS Albumin/Globulin [Mass ratio] 1.3 {ratio} Normal 0.9 - 1.6 ratio AH ADM SS ALP [Catalytic activity/Vol] 149 U/L High 38 - 126 U/L AH ADM SS ALT No additional P-5'-P [Catalytic activity/Vol] 14 U/L Normal 10 - 49 U/L AH ADM SS Anisocytosis Ql (Bld) 2+ *NA* (01/26/25 9:18 AM) Invalid Interpretation Code AH Workflow SS AST [Catalytic activity/Vol] 18 U/L Normal 8 - 34 U/L AH ADM SS Band form neutrophils/100 WBC (Bld) 1.0 % Normal 0.0 - 5.0 % AH Workflow SS Basophils (Bld) [#/Vol] 0.1 103/mcL Normal 0.0 - 0.3 10^3/mcL AH Workflow SS Basophils/100 WBC (Bld) 1.0 % Normal 0.0 - 2.5 % AH Workflow SS Bilirubin [Mass/Vol] 0.70 mg/dL Normal 0.20 - 1.20 mg/dL AH ADM SS Comment on above: Interpretive Data: U se of this assay is not recommended for patients undergoing treatment with eltrombopag due to the potential for falsely elevated results. Calcium [Mass/Vol] 9.2 mg/dL Normal 8.7 - 10. 4 mg/dL AH ADM SS Chloride [Moles/Vol] 109 mmol/L Normal 98 - 11 0 mEq/L AH ADM SS CO2 [Moles/Vol] 25 mmol/L Normal 22 - 32 mEq/L AH ADM SS Creatinine [Mass/Vol] 0.52 mg/dL Normal 0.50 - 1.20 mg/dL AH ADM SS Comment on above: Interpretive Data: T esting performed on [employer] analyzer using enzymatic creatinine methodology. Electrolyte Balance 5.0 mEq/L Normal 4.0 - 15 .0 mEq/L AH ADM SS Eosinophils (Bld) [#/Vol] 0.0 103/mcL Normal 0.0 - 0.7 10^3/mcL Workflow SS Eosinophils/100 WBC (Bld) 0.0 % Normal 0.0 - 6.0 % Workflow SS Erythrocyte distribution width (RBC) [Ratio] 23.3 % High 11.5 - 15.5 % AH Workflow SS Estimated Glomerular Filtration Rate 117 ml/min/1.73sqm Invalid Interpretation Code ADM SS Comment on above: Interpretive Data: Stages of Chronic Kidney Disease (CKD) Stage Description eGFR(ml/min/1.73 sq.m.) CKD 1 Normal kidney function or >=90 normal kindney function with possible kidney damage (ex. Proteinuria) CKD 2 Kidney damage with mild loss 60-89 of kidney function CKD 3a Mild to moderate loss of kidney 45-59 function CKD 3b Moderate to severe loss of 30-44 of kindey function CKD 4 Severe loss of kidney function 15-29 CKD 5 Kidney failure <15 Note: (go live 2024) the eGFR calculation was updated to the 2020 CKD-EPI creatinine equation without a race factor to calculate the eGFR results. Globulin 3.1 G/dL Normal 2.5 - 4.2 G/dL ADM SS Glucose [Mass/Vol] 111 mg/dL High 70 - 110 mg/dL ADM SS Hematocrit (Bld) [Volume fraction] 31.5 % Low 34.0 - 46.0 % Workflow SS Hemoglobin (Bld) [Mass/Vol] 9.6 G/dL Low 12.0 - 16.0 G/dL Workflow SS Lymphocytes (Bld) [#/Vol] 1.4 103/mcL Normal 0.9 - 4.3 10^3/mcL Workflow SS Lymphocytes/100 WBC (Bld) 11.0 % Low 20.0 - 40.0 % Workflow SS MCH (RBC) [Entitic mass] 23.7 pg Low 27.0 - 33.0 pg Workflow SS MCHC 30.4 G/dL Low 32.0 - 36.0 G/dL Workflow SS MCV (RBC) [Entitic vol] 77.7 fL Low 80.0 - 99.0 fL Workflow SS Microcytes Ql (Bld) 1+ *NA* (01/26/25 9:18 AM) Invalid Interpretation Code Workflow SS Monocytes (Bld) [#/Vol] 0.8 103/mcL Normal 0.1 - 1.4 10^3/mcL AH Workflow SS Monocytes/100 WBC (Bld) 6.0 % Normal 2.0 - 13.0 % AH Workflow SS Neutrophils (Bld) [#/Vol] 10.1 103/mcL High 2.3 - 8.1 10^3/mcL AH Workflow SS Neutrophils (Bld) [#/Vol] 10.2 103/mcL High 2.3 - 8.1 10^3/mcL AH Workflow SS Neutrophils/100 WBC (Bld) 81.0 % High 50.0 - 75.0 % AH Workflow SS Nucleated RBC 1.0 /100 WBC Invalid Interpretation Code Workflow SS Ovalocytes LM Ql (Bld) 1+ *NA* (01/26/25 9:18 AM) Invalid Interpretation Code Workflow SS Platelet mean volume (Bld) [Entitic vol] 8.7 fL Normal 6.6 - 10.5 fL AH Workflow SS Platelets (Bld) [#/Vol] 266 103/mcL Normal 150 - 450 10^3/mcL Workflow SS Platelets LM Ql (Bld) Normal *NA* (01/26/25 9:18 AM) Invalid Interpretation Code Workflow SS Poikilocytosis LM Ql (Bld) 1+ *NA* (01/26/25 9:18 AM) Invalid Interpretation Code Workflow SS Potassium [Moles/Vol] 3.6 mmol/L Normal 3.5 - 5.0 mEq/L ADM SS Protein [Mass/Vol] 7.1 G/dL Normal 5.7 - 8.2 G/dL ADM SS RBC (Bld) [#/Vol] 4.05 106/mcL Low 4.10 - 5.30 10^6/mcL AH Workflow SS Sodium [Moles/Vol] 139 mmol/L Normal 136 - 145 mEq/L ADM SS Toxic granules LM Ql (Bld) 1+ *NA* (01/26/25 9:18 AM) Invalid Interpretation Code AH Workflow SS Urea nitrogen [Mass/Vol] 11.0 mg/dL Normal 8.0 - 22.0 mg/dL ADM SS Urea nitrogen/Creatinine [Mass ratio] 21.2 ratio Normal 10.0 - 22.0 ratio AH ADM SS WBC (Bld) [#/Vol] 12.5 103/mcL High 4.5 - 10.8 10^3/mcL AH Workflow SS .GFRon 01-12-2025 Estimated Glomerular Filtration Rate 116 ml/min/1.73sqm Normal [facility] Comment on above: Result Comment: Stag es of Chronic Kidney Disease (CKD)Stage Description eGFR(ml/min/1.73 sq.m.)CKD 1 Normal kidney function or >=90 normal kindney function with possible kidney damage (ex. Proteinuria)CKD 2 Kidney damage with mild loss 60-89 of kidney functionCKD 3a Mild to moderate loss of kidney 45-59 functionCKD 3b Moderate to severe loss of 30-44 of kindey function CKD 4 Severe loss of kidney function 15-29CKD 5 Kidney failure <15Note: (go live 2024) the eGFR calculation was updated to the KD-EPI creatinine equation without a race factor to calculate theeGFR results. Performed By: #### G FR, DIFF, CBC, CMP, MORPH, ANEU, CEA ####[place] [address] .Manual Diffon 01-12-2025 Bands 3.0 % Normal 0.0-5.0 [facility] Comment on above: Performed By: #### G FR, DIFF, CBC, CMP, MORPH, ANEU, CEA ####[place] [address] Basophil %, Manual 0.0 % Normal 0.0-2.5 [facility] MAIN Comment on above: Performed By: #### G FR, DIFF, CBC, CMP, MORPH, ANEU, CEA ####[place] [address] Basophil, Abs Manual 0.0 10 3/mcL Normal 0.0-0.3 [facility] MAIN Comment on above: Performed By: #### G FR, DIFF, CBC, CMP, MORPH, ANEU, CEA ####[place] [address] Eosinophil %, Manual 0.0 % Normal 0.0-6.0 [facility] MAIN Comment on above: Performed By: #### G FR, DIFF, CBC, CMP, MORPH, ANEU, CEA ####[place] [address] [place], [place] [address] Eosinophil, Abs Manual 0.0 10 3/mcL Normal 0.0-0.7 [facility] Comment on above: Performed By: #### G FR, DIFF, CBC, CMP, MORPH, ANEU, CEA ####[address] [address] Lymphocyte %, Manual 16.0 % Low 20.0-40.0 [facility] Comment on above: Performed By: #### G FR, DIFF, CBC, CMP, MORPH, ANEU, CEA ####[address] [address] Lymphocyte, Abs Manual 2.0 10 3/mcL Normal 0.9-4.3 [facility] Comment on above: Performed By: #### G FR, DIFF, CBC, CMP, MORPH, ANEU, CEA ####[place] [address] Metamyelocyte 1.0 % Normal [facility] Comment on above: Performed By: #### G FR, DIFF, CBC, CMP, MORPH, ANEU, CEA ####[place] [address] Monocyte %, Manual 2.0 % Normal 2.0-13.0 [facility] MAIN Comment on above: Performed By: #### G FR, DIFF, CBC, CMP, MORPH, ANEU, CEA ####[address] [address] Monocyte, Abs Manual 0.2 10 3/mcL Normal 0.1-1.4 [facility] MAIN Comment on above: Performed By: #### G FR, DIFF, CBC, CMP, MORPH, ANEU, CEA ####[address] [address] Neutrophil %, Manual 78.0 % High 50.0-75.0 [facility] MA[facility] Comment on above: Performed By: #### G FR, DIFF, CBC, CMP, MORPH, ANEU, CEA ####[address] [address] Neutrophil, Abs Manual 10.1 10 3/mcL High 2.3-8.1 [facility] Comment on above: Performed By: #### G FR, DIFF, CBC, CMP, MORPH, ANEU, CEA ####[place] [address] Nucleated RBC 2.0 /100 WBC Normal [facility] Comment on above: Performed By: #### G FR, DIFF, CBC, CMP, MORPH, ANEU, CEA ####[place] [address] .Morphon 01-12-2025 Anisocytosis Ql (Bld) 2+ Normal [facility] MAIN Comment on above: Performed By: #### G FR, DIFF, CBC, CMP, MORPH, ANEU, CEA ####[place] [address] Hypochrom 1+ Normal [facility] Comment on above: Performed By: #### G FR, DIFF, CBC, CMP, MORPH, ANEU, CEA ####[place] [address] Microcytosis 1+ Normal [facility] Comment on above: Performed By: #### G FR, DIFF, CBC, CMP, MORPH, ANEU, CEA ####[place] [address] Ovalocytes 1+ [facility] MAIN Comment on above: Performed By: #### G FR, DIFF, CBC, CMP, MORPH, ANEU, CEA ####[place] [address] Platelet Estimate Normal [facility] MAIN Comment on above: Performed By: #### G FR, DIFF, CBC, CMP, MORPH, ANEU, CEA ####[place] [address] Poik 1+ [facility] MAIN Comment on above: Performed By: #### G FR, DIFF, CBC, CMP, MORPH, ANEU, CEA ####[place] [address] Polychrom 1+ [facility] MAIN Comment on above: Performed By: #### G FR, DIFF, CBC, CMP, MORPH, ANEU, CEA ####[place] [address] Tear Cell 1+ Normal [facility] Comment on above: Performed By: #### G FR, DIFF, CBC, CMP, MORPH, ANEU, CEA ####[place] [id number] .NEUABSon 01-12-2025 Neutrophil, Absolute 10.0 10 3/mcL High 2.3-8.1 [facility] MAIN Comment on above: Performed By: #### G FR, DIFF, CBC, CMP, MORPH, ANEU, CEA ####[place] [address] CBCon 01-12-2025 Erythrocyte distribution width (RBC) [Ratio] 23.0 % High 11.5-15.5 [facility] Comment on above: Performed By: #### G FR, DIFF, CBC, CMP, MORPH, ANEU, CEA ####[place] [address] Hematocrit (Bld) [Volume fraction] 30.3 % Low 34.0-46.0 [facility] Comment on above: Performed By: #### G FR, DIFF, CBC, CMP, MORPH, ANEU, CEA ####[place] [address] Hgb 9.1 G/dL Low 12.0-16.0 [facility] Comment on above: Performed By: #### G FR, DIFF, CBC, CMP, MORPH, ANEU, CEA ####[place] [address] MCH (RBC) [Entitic mass] 23.1 pg Low 27.0-33.0 [facility] Comment on above: Performed By: #### G FR, DIFF, CBC, CMP, MORPH, ANEU, CEA ####[place] [address] MCHC 30.2 G/dL Low 32.0-36.0 [facility] Comment on above: Performed By: #### G FR, DIFF, CBC, CMP, MORPH, ANEU, CEA ####[place] [address] MCV (RBC) [Entitic vol] 76.4 fL Low 80.0-99.0 [facility] MAIN Comment on above: Performed By: #### G FR, DIFF, CBC, CMP, MORPH, ANEU, CEA ####[place] [id number] [address] [place] [address] Platelet 262 10 3/mcL Normal 150-450 [facility] Comment on above: Performed By: #### G FR, DIFF, CBC, CMP, MORPH, ANEU, CEA ####[address] [address] Platelet mean volume (Bld) [Entitic vol] 8.7 fL Normal 6.6-10.5 [facility] Comment on above: Performed By: #### G FR, DIFF, CBC, CMP, MORPH, ANEU, CEA ####[place] [address] RBC 3.96 10 6/mcL Low 4.10-5.30 [facility] Comment on above: Performed By: #### G FR, DIFF, CBC, CMP, MORPH, ANEU, CEA ####[place] [id number] WBC 12.4 10 3/mcL High 4.5-10.8 [facility] Comment on above: Performed By: #### G FR, DIFF, CBC, CMP, MORPH, ANEU, CEA ####[place] [address] CEAon 01-12-2025 CEA 21.0 ng/mL High 0.0-3.0 [facility] Comment on above: Result Comment: CEA Reference Range for SMOKERS: 0.0 - 5.0 ng/mL.Testing performed on the [employer] analyzer usingdirect chemiluminesent technology. Patient resultsdetermined by assays using different manufacturers for methods may not be comparable. Performed By: #### G FR, DIFF, CBC, CMP, MORPH, ANEU, CEA ####[address] [address] CMPon 01-12-2025 Albumin Level 3.7 G/dL Normal 3.2-4.8 [facility] Comment on above: Performed By: #### G FR, DIFF, CBC, CMP, MORPH, ANEU, CEA ####[place] [address] Albumin/Globulin [Mass ratio] 1.2 {ratio} Normal 0.9-1.6 [facility] Comment on above: Performed By: #### G FR, DIFF, CBC, CMP, MORPH, ANEU, CEA ####[place] [address] ALP [Catalytic activity/Vol] 135 U/L High 38-126 [facility] Comment on above: Performed By: #### G FR, DIFF, CBC, CMP, MORPH, ANEU, CEA ####[place] [address] ALT [Catalytic activity/Vol] 16 U/L Normal 10-49 [facility] Comment on above: Performed By: #### G FR, DIFF, CBC, CMP, MORPH, ANEU, CEA ####[place] [address] AST/SGOT <8 Low 8-34 [facility] Comment on above: Performed By: #### G FR, DIFF, CBC, CMP, MORPH, ANEU, CEA ####[place] [address] Bili Total 0.60 mg/dL Normal 0.20-1.20 [facility] Comment on above: Result Comment: Use of this assay is not recommended for patients undergoing treatment with eltrombopag due to the potential for falsely elevated results. Performed By: #### G FR, DIFF, CBC, CMP, MORPH, ANEU, CEA ####[place] [address] BUN/Creatinine Ratio 20.4 ratio Normal 10.0-22.0 [facility] MAIN Comment on above: Performed By: #### G FR, DIFF, CBC, CMP, MORPH, ANEU, CEA ####[place] [address] Calcium [Mass/Vol] 8.5 mg/dL Low 8.7-10.4 [facility] MAIN Comment on above: Performed By: #### G FR, DIFF, CBC, CMP, MORPH, ANEU, CEA ####[place] [address] Chloride [Moles/Vol] 106 mmol/L Normal 98-110 [facility] MA[facility] Comment on above: Performed By: #### G FR, DIFF, CBC, CMP, MORPH, ANEU, CEA ####[place] [address] CO2 [Moles/Vol] 26 mmol/L Normal 22-32 [facility] Comment on above: Performed By: #### G FR, DIFF, CBC, CMP, MORPH, ANEU, CEA ####[place] [address] Creatinine [Mass/Vol] 0.54 mg/dL Normal 0.50-1.20 [facility] MAIN Comment on above: Result Comment: Test ing performed on [employer] analyzer using enzymatic creatinine methodology. Performed By: #### G FR, DIFF, CBC, CMP, MORPH, ANEU, CEA ####[place] [address] Electrolyte Balance 11.0 mEq/L Normal 4.0-15.0 [facility] MAIN Comment on above: Performed By: #### G FR, DIFF, CBC, CMP, MORPH, ANEU, CEA ####[place] [address] Globulin 3.1 G/dL Normal 2.5-4.2 [facility] Comment on above: Performed By: #### G FR, DIFF, CBC, CMP, MORPH, ANEU, CEA ####[place] [address] Glucose [Mass/Vol] 100 mg/dL Normal 70-110 [facility] MAIN Comment on above: Performed By: #### G FR, DIFF, CBC, CMP, MORPH, ANEU, CEA ####[place] [address] Potassium [Moles/Vol] 3.7 mmol/L Normal 3.5-5.0 [facility] MAIN Comment on above: Performed By: #### G FR, DIFF, CBC, CMP, MORPH, ANEU, CEA ####[place] [address] Sodium [Moles/Vol] 143 mmol/L Normal 136-145 [facility] MAIN Comment on above: Performed By: #### G FR, DIFF, CBC, CMP, MORPH, ANEU, CEA ####[id number] [place] [address] Total Protein 6.8 G/dL Normal 5.7-8.2 [facility] Comment on above: Performed By: #### G FR, DIFF, CBC, CMP, MORPH, ANEU, CEA ####[id number] [place] [address] Urea nitrogen [Mass/Vol] 11.0 mg/dL Normal 8.0-22.0 [facility] Comment on above: Performed By: #### G FR, DIFF, CBC, CMP, MORPH, ANEU, CEA ####[id number] [place] [address] LABORATORYOrdered By: Farrah Espinosa on 01-12-2025 Albumin BCP dye [Mass/Vol] 3.7 G/dL Normal 3.2 - 4.8 G/dL ADM SS Albumin/Globulin [Mass ratio] 1.2 {ratio} Normal 0.9 - 1.6 ratio AH ADM SS ALP [Catalytic activity/Vol] 135 U/L High 38 - 126 U/L AH ADM SS ALT No additional P-5'-P [Catalytic activity/Vol] 16 U/L Normal 10 - 49 U/L AH ADM SS AST [Catalytic activity/Vol] U/L 1 Low 8 - 34 U/L AH ADM SS Bilirubin [Mass/Vol] 0.60 mg/dL Normal 0.20 - 1.20 mg/dL AH ADM SS Comment on above: Interpretive Data: U se of this assay is not recommended for patients undergoing treatment with eltrombopag due to the potential for falsely elevated results. Calcium [Mass/Vol] 8.5 mg/dL Low 8.7 - 10. 4 mg/dL AH ADM SS Chloride [Moles/Vol] 106 mmol/L Normal 98 - 11 0 mEq/L AH ADM SS CO2 [Moles/Vol] 26 mmol/L Normal 22 - 32 mEq/L AH ADM SS Creatinine [Mass/Vol] 0.54 mg/dL Normal 0.50 - 1.20 mg/dL AH ADM SS Comment on above: Interpretive Data: T esting performed on [employer] analyzer using enzymatic creatinine methodology. Electrolyte Balance 11.0 mEq/L Normal 4.0 - 15 .0 mEq/L AH ADM SS Globulin 3.1 G/dL Normal 2.5 - 4.2 G/dL AH ADM SS Glucose [Mass/Vol] 100 mg/dL Normal 70 - 110 mg/dL AH ADM SS Potassium [Moles/Vol] 3.7 mmol/L Normal 3.5 - 5.0 mEq/L AH ADM SS Protein [Mass/Vol] 6.8 G/dL Normal 5.7 - 8.2 G/dL AH ADM SS Sodium [Moles/Vol] 143 mmol/L Normal 136 - 145 mEq/L AH ADM SS Urea nitrogen [Mass/Vol] 11.0 mg/dL Normal 8.0 - 22.0 mg/dL AH ADM SS Urea nitrogen/Creatinine [Mass ratio] 20.4 ratio Normal 10.0 - 22.0 ratio AH ADM SS LABORATORYOrdered By: SYSTEM SYSTEM on 01-12-2025 Anisocytosis Ql (Bld) 2+ *NA* (01/12/25 9:26 AM) Invalid Interpretation Code Workflow SS Band form neutrophils/100 WBC (Bld) 3.0 % Normal 0.0 - 5.0 % AH Workflow SS Basophils (Bld) [#/Vol] 0.0 103/mcL Normal 0.0 - 0.3 10^3/mcL AH Workflow SS Basophils/100 WBC (Bld) 0.0 % Normal 0.0 - 2.5 % AH Workflow SS Dacrocytes LM Ql (Bld) 1+ *NA* (01/12/25 9:26 AM) Invalid Interpretation Code Workflow SS Eosinophils (Bld) [#/Vol] 0.0 103/mcL Normal 0.0 - 0.7 10^3/mcL AH Workflow SS Eosinophils/100 WBC (Bld) 0.0 % Normal 0.0 - 6.0 % AH Workflow SS Erythrocyte distribution width (RBC) [Ratio] 23.0 % High 11.5 - 15.5 % AH Workflow SS Estimated Glomerular Filtration Rate 116 ml/min/1.73sqm Invalid Interpretation Code AH ADM SS Comment on above: Interpretive Data: Stages of Chronic Kidney Disease (CKD) Stage Description eGFR(ml/min/1.73 sq.m.) CKD 1 Normal kidney function or >=90 normal kindney function with possible kidney damage (ex. Proteinuria) CKD 2 Kidney damage with mild loss 60-89 of kidney function CKD 3a Mild to moderate loss of kidney 45-59 function CKD 3b Moderate to severe loss of 30-44 of kindey function CKD 4 Severe loss of kidney function 15-29 CKD 5 Kidney failure <15 Note: (go live 2024) the eGFR calculation was updated to the 2020 CKD-EPI creatinine equation without a race factor to calculate the eGFR results. Hematocrit (Bld) [Volume fraction] 30.3 % Low 34.0 - 46.0 % AH Workflow SS Hemoglobin (Bld) [Mass/Vol] 9.1 G/dL Low 12.0 - 16.0 G/dL AH Workflow SS Hypochromia Ql (Bld) 1+ *NA* (01/12/25 9:26 AM) Invalid Interpretation Code AH Workflow SS Lymphocytes (Bld) [#/Vol] 2.0 103/mcL Normal 0.9 - 4.3 10^3/mcL AH Workflow SS Lymphocytes/100 WBC (Bld) 16.0 % Low 20.0 - 40.0 % AH Workflow SS MCH (RBC) [Entitic mass] 23.1 pg Low 27.0 - 33.0 pg AH Workflow SS MCHC 30.2 G/dL Low 32.0 - 36.0 G/dL AH Workflow SS MCV (RBC) [Entitic vol] 76.4 fL Low 80.0 - 99.0 fL AH Workflow SS Metamyelocytes/100 WBC (Bld) 1.0 % Invalid Interpretation Code Workflow SS Microcytes Ql (Bld) 1+ *NA* (01/12/25 9:26 AM) Invalid Interpretation Code Workflow SS Monocytes (Bld) [#/Vol] 0.2 103/mcL Normal 0.1 - 1.4 10^3/mcL AH Workflow SS Monocytes/100 WBC (Bld) 2.0 % Normal 2.0 - 13.0 % AH Workflow SS Neutrophils (Bld) [#/Vol] 10.0 103/mcL High 2.3 - 8.1 10^3/mcL AH Workflow SS Neutrophils (Bld) [#/Vol] 10.1 103/mcL High 2.3 - 8.1 10^3/mcL AH Workflow SS Neutrophils/100 WBC (Bld) 78.0 % High 50.0 - 75.0 % AH Workflow SS Nucleated RBC 2.0 /100 WBC Invalid Interpretation Code Workflow SS Ovalocytes LM Ql (Bld) 1+ *NA* (01/12/25 9:26 AM) Invalid Interpretation Code AH Workflow SS Platelet mean volume (Bld) [Entitic vol] 8.7 fL Normal 6.6 - 10.5 fL AH Workflow SS Platelets (Bld) [#/Vol] 262 103/mcL Normal 150 - 450 10^3/mcL AH Workflow SS Platelets LM Ql (Bld) Normal *NA* (01/12/25 9:26 AM) Invalid Interpretation Code AH Workflow SS Poikilocytosis LM Ql (Bld) 1+ *NA* (01/12/25 9:26 AM) Invalid Interpretation Code AH Workflow SS Polychromasia LM Ql (Bld) 1+ *NA* (01/12/25 9:26 AM) Invalid Interpretation Code AH Workflow SS RBC (Bld) [#/Vol] 3.96 106/mcL Low 4.10 - 5.30 10^6/mcL AH Workflow SS WBC (Bld) [#/Vol] 12.4 103/mcL High 4.5 - 10.8 10^3/mcL AH Workflow SS LABORATORYOrdered By: mEeli Cerna on 01-12-2025 Carcinoembryonic Ag [Mass/Vol] 21.0 ng/mL High 0.0 - 3.0 ng/mL Chemistry S Comment on above: Interpretive Data: C EA Reference Range for SMOKERS: 0.0 - 5.0 ng/mL. Testing performed on the Cover IM analyzer using direct chemiluminesent technology. Patient results determined by assays using different manufacturers for methods may not be comparable. IR PORT CHECK W/GUIDEon 12-29 IR PORT CHECK W/GUIDE Normal [facility] LABORATORYOrdered By: Tammy Thompson on 01-08-2025 Beta HCG ( test) Ql (U) Negative (01/08/25 8:35 AM) [facility] Work Phone: CT ABDOMEN/PELVIS W/CONTRAST on 01-07-2025 CT ABDOMEN/PELVIS W/CONTRAST Normal [facility] CT THORAX W/ CONTRASTon 12-29 CT THORAX W/ CONTRAST Normal [facility] .GFRon 12-29-2024 Estimated Glomerular Filtration Rate 120 ml/min/1.73sqm Normal [facility] Comment on above: Result Comment: Stag es of Chronic Kidney Disease (CKD)Stage Description eGFR(ml/min/1.73 sq.m.)CKD 1 Normal kidney function or >=90 normal kindney function with possible kidney damage (ex. Proteinuria)CKD 2 Kidney damage with mild loss 60-89 of kidney functionCKD 3a Mild to moderate loss of kidney 45-59 functionCKD 3b Moderate to severe loss of 30-44 of kindey function CKD 4 Severe loss of kidney function 15-29CKD 5 Kidney failure <15Note: (go live 2024) the eGFR calculation was updated to the KD-EPI creatinine equation without a race factor to calculate theeGFR results. Performed By: #### M ORPH, GFR, CBC, DIFF, ANEU, CMP ####[place] [address] .Manual Diffon 12-29-2024 Bands 4.0 % Normal 0.0-5.0 [facility] Comment on above: Performed By: #### M ORPH, GFR, CBC, DIFF, ANEU, CMP ####[place] [address] Basophil %, Manual 0.0 % Normal 0.0-2.5 [facility] Comment on above: Performed By: #### M ORPH, GFR, CBC, DIFF, ANEU, CMP ####[place] [address] Basophil, Abs Manual 0.0 10 3/mcL Normal 0.0-0.3 [facility] Comment on above: Performed By: #### M ORPH, GFR, CBC, DIFF, ANEU, CMP ####[place] [address] Eosinophil %, Manual 0.0 % Normal 0.0-6.0 [facility] Comment on above: Performed By: #### M ORPH, GFR, CBC, DIFF, ANEU, CMP ####[place] [address] Eosinophil, Abs Manual 0.0 10 3/mcL Normal 0.0-0.7 [facility] Comment on above: Performed By: #### M ORPH, GFR, CBC, DIFF, ANEU, CMP ####[address] [address] Lymphocyte %, Manual 13.0 % Low 20.0-40.0 [facility] Comment on above: Performed By: #### M ORPH, GFR, CBC, DIFF, ANEU, CMP ####[address] [address] Lymphocyte, Abs Manual 1.1 10 3/mcL Normal 0.9-4.3 [facility] Comment on above: Performed By: #### M ORPH, GFR, CBC, DIFF, ANEU, CMP ####[address] [address] Monocyte %, Manual 1.0 % Low 2.0-13.0 [facility] Comment on above: Performed By: #### M ORPH, GFR, CBC, DIFF, ANEU, CMP ####[place] [id number] Monocyte, Abs Manual 0.1 10 3/mcL Normal 0.1-1.4 [facility] Comment on above: Performed By: #### M ORPH, GFR, CBC, DIFF, ANEU, CMP ####[place] [id number] Neutrophil %, Manual 82.0 % High 50.0-75.0 [facility] Comment on above: Performed By: #### M ORPH, GFR, CBC, DIFF, ANEU, CMP ####[address] [address] Neutrophil, Abs Manual 6.8 10 3/mcL Normal 2.3-8.1 [facility] Comment on above: Performed By: #### M ORPH, GFR, CBC, DIFF, ANEU, CMP ####[address] [address] Nucleated RBC 0.0 /100 WBC Normal [facility] Comment on above: Performed By: #### M ORPH, GFR, CBC, DIFF, ANEU, CMP ####[address] [address] .Morphon 12-29-2024 Platelet Estimate Normal Normal [facility] Comment on above: Performed By: #### M ORPH, GFR, CBC, DIFF, ANEU, CMP ####[place] [address] Anisocytosis Ql (Bld) 2+ Normal [facility] Comment on above: Performed By: #### M ORPH, GFR, CBC, DIFF, ANEU, CMP ####[place] [address] Microcytosis 1+ Normal [facility] Comment on above: Performed By: #### M ORPH, GFR, CBC, DIFF, ANEU, CMP ####[place] [address] Ovalocytes 1+ Normal [facility] Comment on above: Performed By: #### M ORPH, GFR, CBC, DIFF, ANEU, CMP ####[place] [address] Poik 1+ Normal [facility] Comment on above: Performed By: #### M ORPH, GFR, CBC, DIFF, ANEU, CMP ####[place] [address] Polychrom 1+ Normal [facility] Comment on above: Performed By: #### M ORPH, GFR, CBC, DIFF, ANEU, CMP ####[place] [address] .NEUABSon 12-29-2024 Neutrophil, Absolute 5.9 10 3/mcL Normal 2.3-8.1 [facility] Comment on above: Performed By: #### M ORPH, GFR, CBC, DIFF, ANEU, CMP ####[place] [address] CBCon 12-29-2024 Erythrocyte distribution width (RBC) [Ratio] 22.8 % High 11.5-15.5 [facility] Comment on above: Performed By: #### M ORPH, GFR, CBC, DIFF, ANEU, CMP ####[place] [address] Hematocrit (Bld) [Volume fraction] 30.4 % Low 34.0-46.0 [facility] Comment on above: Performed By: #### M ORPH, GFR, CBC, DIFF, ANEU, CMP ####[place] [address] Hgb 9.5 G/dL Low 12.0-16.0 [facility] Comment on above: Performed By: #### M ORPH, GFR, CBC, DIFF, ANEU, CMP ####[place] [address] MCH (RBC) [Entitic mass] 24.2 pg Low 27.0-33.0 [facility] Comment on above: Performed By: #### M ORPH, GFR, CBC, DIFF, ANEU, CMP ####[place] [address] MCHC 31.3 G/dL Low 32.0-36.0 [facility] Comment on above: Performed By: #### M ORPH, GFR, CBC, DIFF, ANEU, CMP ####[place] [address] MCV (RBC) [Entitic vol] 77.2 fL Low 80.0-99.0 [facility] Comment on above: Performed By: #### M ORPH, GFR, CBC, DIFF, ANEU, CMP ####[place] [address] Platelet 340 10 3/mcL Normal 150-450 [facility] Comment on above: Performed By: #### M ORPH, GFR, CBC, DIFF, ANEU, CMP ####[place] [address] Platelet mean volume (Bld) [Entitic vol] 8.7 fL Normal 6.6-10.5 [facility] Comment on above: Performed By: #### M ORPH, GFR, CBC, DIFF, ANEU, CMP ####[place] [address] RBC 3.93 10 6/mcL Low 4.10-5.30 [facility] Comment on above: Performed By: #### M ORPH, GFR, CBC, DIFF, ANEU, CMP ####[place] [address] WBC 8.1 10 3/mcL Normal 4.5-10.8 [facility] Comment on above: Performed By: #### M ORPH, GFR, CBC, DIFF, ANEU, CMP ####[place] [address] CMPon 12-29-2024 Albumin Level 3.8 G/dL Normal 3.2-4.8 [facility] Comment on above: Performed By: #### M ORPH, GFR, CBC, DIFF, ANEU, CMP ####[place] [address] Albumin/Globulin [Mass ratio] 1.1 {ratio} Normal 0.9-1.6 [facility] Comment on above: Performed By: #### M ORPH, GFR, CBC, DIFF, ANEU, CMP ####[place] [address] ALP [Catalytic activity/Vol] 134 U/L High 38-126 [facility] Comment on above: Performed By: #### M ORPH, GFR, CBC, DIFF, ANEU, CMP ####[place] [address] ALT [Catalytic activity/Vol] 18 U/L Normal 10-49 [facility] Comment on above: Performed By: #### M ORPH, GFR, CBC, DIFF, ANEU, CMP ####[place] [address] AST [Catalytic activity/Vol] 19 U/L Normal 8-34 [facility] Comment on above: Performed By: #### M ORPH, GFR, CBC, DIFF, ANEU, CMP ####[place] [address] Bili Total 0.50 mg/dL Normal 0.20-1.20 [facility] Comment on above: Result Comment: Use of this assay is not recommended for patients undergoing treatment with eltrombopag due to the potential for falsely elevated results. Performed By: #### M ORPH, GFR, CBC, DIFF, ANEU, CMP ####[place] [address] BUN/Creatinine Ratio 18.8 ratio Normal 10.0-22.0 [facility] Comment on above: Performed By: #### M ORPH, GFR, CBC, DIFF, ANEU, CMP ####[address] [address] Calcium [Mass/Vol] 9.6 mg/dL Normal 8.7-10.4 [facility] Comment on above: Performed By: #### M ORPH, GFR, CBC, DIFF, ANEU, CMP ####[place] [id number] Chloride [Moles/Vol] 107 mmol/L Normal 98-110 [facility] Comment on above: Performed By: #### M ORPH, GFR, CBC, DIFF, ANEU, CMP ####[place] [id number] CO2 [Moles/Vol] 24 mmol/L Normal 22-32 [facility] Comment on above: Performed By: #### M ORPH, GFR, CBC, DIFF, ANEU, CMP ####[place] [address] Creatinine [Mass/Vol] 0.48 mg/dL Low 0.50-1.20 [facility] Comment on above: Result Comment: Test ing performed on [employer] analyzer using enzymatic creatinine methodology. Performed By: #### M ORPH, GFR, CBC, DIFF, ANEU, CMP ####[place] [address] Electrolyte Balance 11.0 mEq/L Normal 4.0-15.0 [facility] Comment on above: Performed By: #### M ORPH, GFR, CBC, DIFF, ANEU, CMP ####[address] [address] Globulin 3.4 G/dL Normal 2.5-4.2 [facility] Comment on above: Performed By: #### M ORPH, GFR, CBC, DIFF, ANEU, CMP ####[place] [id number] Glucose [Mass/Vol] 98 mg/dL Normal 70-110 [facility] Comment on above: Performed By: #### M ORPH, GFR, CBC, DIFF, ANEU, CMP ####[place] [address] [place] [address] Potassium [Moles/Vol] 3.6 mmol/L Normal 3.5-5.0 [facility] Comment on above: Performed By: #### M ORPH, GFR, CBC, DIFF, ANEU, CMP ####[address] [address] Sodium [Moles/Vol] 142 mmol/L Normal 136-145 [facility] Comment on above: Performed By: #### M ORPH, GFR, CBC, DIFF, ANEU, CMP ####[address] [address] Total Protein 7.2 G/dL Normal 5.7-8.2 [facility] Comment on above: Performed By: #### M ORPH, GFR, CBC, DIFF, ANEU, CMP ####[address] [address] Urea nitrogen [Mass/Vol] 9.0 mg/dL Normal 8.0-22.0 [facility] Comment on above: Performed By: #### M ORPH, GFR, CBC, DIFF, ANEU, CMP ####[place] [address] LABORATORYOrdered By: SYSTEM SYSTEM on 12-29-2024 Albumin BCP dye [Mass/Vol] 3.8 G/dL Normal 3.2 - 4.8 G/dL ADM SS Albumin/Globulin [Mass ratio] 1.1 {ratio} Normal 0.9 - 1.6 ratio ADM SS ALP [Catalytic activity/Vol] 134 U/L High 38 - 126 U/L ADM SS ALT No additional P-5'-P [Catalytic activity/Vol] 18 U/L Normal 10 - 49 U/L ADM SS Anisocytosis Ql (Bld) 2+ *NA* (12/29/24 8:32 AM) Invalid Interpretation Code Workflow SS AST [Catalytic activity/Vol] 19 U/L Normal 8 - 34 U/L ADM SS Band form neutrophils/100 WBC (Bld) 4.0 % Normal 0.0 - 5.0 % Workflow SS Basophils (Bld) [#/Vol] 0.0 103/mcL Normal 0.0 - 0.3 10^3/mcL AH Workflow SS Basophils/100 WBC (Bld) 0.0 % Normal 0.0 - 2.5 % AH Workflow SS Bilirubin [Mass/Vol] 0.50 mg/dL Normal 0.20 - 1.20 mg/dL AH ADM SS Comment on above: Interpretive Data: U se of this assay is not recommended for patients undergoing treatment with eltrombopag due to the potential for falsely elevated results. Calcium [Mass/Vol] 9.6 mg/dL Normal 8.7 - 10. 4 mg/dL AH ADM SS Chloride [Moles/Vol] 107 mmol/L Normal 98 - 11 0 mEq/L AH ADM SS CO2 [Moles/Vol] 24 mmol/L Normal 22 - 32 mEq/L ADM SS Creatinine [Mass/Vol] 0.48 mg/dL Low 0.50 - 1.20 mg/dL ADM SS Comment on above: Interpretive Data: T esting performed on [employer] analyzer using enzymatic creatinine methodology. Electrolyte Balance 11.0 mEq/L Normal 4.0 - 15 .0 mEq/L ADM SS Eosinophils (Bld) [#/Vol] 0.0 103/mcL Normal 0.0 - 0.7 10^3/mcL Workflow SS Eosinophils/100 WBC (Bld) 0.0 % Normal 0.0 - 6.0 % Workflow SS Erythrocyte distribution width (RBC) [Ratio] 22.8 % High 11.5 - 15.5 % Workflow SS Estimated Glomerular Filtration Rate 120 ml/min/1.73sqm Invalid Interpretation Code ADM SS Comment on above: Interpretive Data: Stages of Chronic Kidney Disease (CKD) Stage Description eGFR(ml/min/1.73 sq.m.) CKD 1 Normal kidney function or >=90 normal kindney function with possible kidney damage (ex. Proteinuria) CKD 2 Kidney damage with mild loss 60-89 of kidney function CKD 3a Mild to moderate loss of kidney 45-59 function CKD 3b Moderate to severe loss of 30-44 of kindey function CKD 4 Severe loss of kidney function 15-29 CKD 5 Kidney failure <15 Note: (go live 2024) the eGFR calculation was updated to the 2020 CKD-EPI creatinine equation without a race factor to calculate the eGFR results. Globulin 3.4 G/dL Normal 2.5 - 4.2 G/dL AH ADM SS Glucose [Mass/Vol] 98 mg/dL Normal 70 - 110 mg/dL AH ADM SS Hematocrit (Bld) [Volume fraction] 30.4 % Low 34.0 - 46.0 % AH Workflow SS Hemoglobin (Bld) [Mass/Vol] 9.5 G/dL Low 12.0 - 16.0 G/dL AH Workflow SS Lymphocytes (Bld) [#/Vol] 1.1 103/mcL Normal 0.9 - 4.3 10^3/mcL AH Workflow SS Lymphocytes/100 WBC (Bld) 13.0 % Low 20.0 - 40.0 % AH Workflow SS MCH (RBC) [Entitic mass] 24.2 pg Low 27.0 - 33.0 pg AH Workflow SS MCHC 31.3 G/dL Low 32.0 - 36.0 G/dL AH Workflow SS MCV (RBC) [Entitic vol] 77.2 fL Low 80.0 - 99.0 fL AH Workflow SS Microcytes Ql (Bld) 1+ *NA* (12/29/24 8:32 AM) Invalid Interpretation Code AH Workflow SS Monocytes (Bld) [#/Vol] 0.1 103/mcL Normal 0.1 - 1.4 10^3/mcL AH Workflow SS Monocytes/100 WBC (Bld) 1.0 % Low 2.0 - 13.0 % AH Workflow SS Neutrophils (Bld) [#/Vol] 5.9 103/mcL Normal 2.3 - 8.1 10^3/mcL AH Workflow SS Neutrophils (Bld) [#/Vol] 6.8 103/mcL Normal 2.3 - 8.1 10^3/mcL AH Workflow SS Neutrophils/100 WBC (Bld) 82.0 % High 50.0 - 75.0 % AH Workflow SS Nucleated RBC 0.0 /100 WBC Invalid Interpretation Code AH Workflow SS Ovalocytes LM Ql (Bld) 1+ *NA* (12/29/24 8:32 AM) Invalid Interpretation Code AH Workflow SS Platelet mean volume (Bld) [Entitic vol] 8.7 fL Normal 6.6 - 10.5 fL AH Workflow SS Platelets (Bld) [#/Vol] 340 103/mcL Normal 150 - 450 10^3/mcL AH Workflow SS Platelets LM Ql (Bld) Normal *NA* (12/29/24 8:32 AM) Invalid Interpretation Code AH Workflow SS Poikilocytosis LM Ql (Bld) 1+ *NA* (12/29/24 8:32 AM) Invalid Interpretation Code AH Workflow SS Polychromasia LM Ql (Bld) 1+ *NA* (12/29/24 8:32 AM) Invalid Interpretation Code AH Workflow SS Potassium [Moles/Vol] 3.6 mmol/L Normal 3.5 - 5.0 mEq/L AH ADM SS Protein [Mass/Vol] 7.2 G/dL Normal 5.7 - 8.2 G/dL AH ADM SS RBC (Bld) [#/Vol] 3.93 106/mcL Low 4.10 - 5.30 10^6/mcL AH Workflow SS Sodium [Moles/Vol] 142 mmol/L Normal 136 - 145 mEq/L AH ADM SS Urea nitrogen [Mass/Vol] 9.0 mg/dL Normal 8.0 - 22.0 mg/dL AH ADM SS Urea nitrogen/Creatinine [Mass ratio] 18.8 ratio Normal 10.0 - 22.0 ratio AH ADM SS WBC (Bld) [#/Vol] 8.1 103/mcL Normal 4.5 - 10.8 10^3/mcL AH Workflow SS .GFRon 12-15-2024 Estimated Glomerular Filtration Rate 119 ml/min/1.73sqm Normal [facility] Comment on above: Result Comment: Stag es of Chronic Kidney Disease (CKD)Stage Description eGFR(ml/min/1.73 sq.m.)CKD 1 Normal kidney function or >=90 normal kindney function with possible kidney damage (ex. Proteinuria)CKD 2 Kidney damage with mild loss 60-89 of kidney functionCKD 3a Mild to moderate loss of kidney 45-59 functionCKD 3b Moderate to severe loss of 30-44 of kindey function CKD 4 Severe loss of kidney function 15-29CKD 5 Kidney failure <15Note: (go live 2024) the eGFR calculation was updated to the KD-EPI creatinine equation without a race factor to calculate theeGFR results. Performed By: #### D IFF, ANEU, CMP, MORPH, CBC, GFR, CEA ####[place] [id number] [address] [place] [address] .Manual Diffon 12-15-2024 Bands 5.0 % Normal 0.0-5.0 [facility] Comment on above: Performed By: #### D IFF, ANEU, CMP, MORPH, CBC, GFR, CEA ####[place] [address] Basophil %, Manual 0.0 % Normal 0.0-2.5 [facility] Comment on above: Performed By: #### D IFF, ANEU, CMP, MORPH, CBC, GFR, CEA ####[place] [id number] Basophil, Abs Manual 0.0 10 3/mcL Normal 0.0-0.3 [facility] Comment on above: Performed By: #### D IFF, ANEU, CMP, MORPH, CBC, GFR, CEA ####[place] [address] Eosinophil %, Manual 2.0 % Normal 0.0-6.0 [facility] Comment on above: Performed By: #### D IFF, ANEU, CMP, MORPH, CBC, GFR, CEA ####[place] [address] Eosinophil, Abs Manual 0.2 10 3/mcL Normal 0.0-0.7 [facility] Comment on above: Performed By: #### D IFF, ANEU, CMP, MORPH, CBC, GFR, CEA ####[place] [address] Lymphocyte %, Manual 15.0 % Low 20.0-40.0 [facility] Comment on above: Performed By: #### D IFF, ANEU, CMP, MORPH, CBC, GFR, CEA ####[place] [address] Lymphocyte, Abs Manual 1.4 10 3/mcL Normal 0.9-4.3 [facility] Comment on above: Performed By: #### D IFF, ANEU, CMP, MORPH, CBC, GFR, CEA ####[place] [address] Metamyelocyte 2.0 % Normal [facility] Comment on above: Performed By: #### D IFF, ANEU, CMP, MORPH, CBC, GFR, CEA ####[place] [address] Monocyte %, Manual 6.0 % Normal 2.0-13.0 [facility] Comment on above: Performed By: #### D IFF, ANEU, CMP, MORPH, CBC, GFR, CEA ####[place] [address] Monocyte, Abs Manual 0.5 10 3/mcL Normal 0.1-1.4 [facility] Comment on above: Performed By: #### D IFF, ANEU, CMP, MORPH, CBC, GFR, CEA ####[place] [address] Neutrophil %, Manual 70.0 % Normal 50.0-75.0 [facility] Comment on above: Performed By: #### D IFF, ANEU, CMP, MORPH, CBC, GFR, CEA ####[place] [address] Neutrophil, Abs Manual 6.9 10 3/mcL Normal 2.3-8.1 [facility] Comment on above: Performed By: #### D IFF, ANEU, CMP, MORPH, CBC, GFR, CEA ####[place] [address] Nucleated RBC 0.0 /100 WBC Normal [facility] Comment on above: Performed By: #### D IFF, ANEU, CMP, MORPH, CBC, GFR, CEA ####[place] [address] .Morphon 12-15-2024 Anisocytosis Ql (Bld) 2+ Normal [facility] Comment on above: Performed By: #### D IFF, ANEU, CMP, MORPH, CBC, GFR, CEA ####[place] [address] Microcytosis 1+ Normal [facility] Comment on above: Performed By: #### D IFF, ANEU, CMP, MORPH, CBC, GFR, CEA ####[place] [address] Ovalocytes 1+ Normal [facility] Comment on above: Performed By: #### D IFF, ANEU, CMP, MORPH, CBC, GFR, CEA ####[place] [address] Platelet Estimate Normal Normal [facility] Comment on above: Performed By: #### D IFF, ANEU, CMP, MORPH, CBC, GFR, CEA ####[place] [address] Poik 1+ Normal [facility] Comment on above: Performed By: #### D IFF, ANEU, CMP, MORPH, CBC, GFR, CEA ####[place] [address] Polychrom 1+ Normal [facility] Comment on above: Performed By: #### D IFF, ANEU, CMP, MORPH, CBC, GFR, CEA ####[place] [address] .NEUABSon 12-15-2024 Neutrophil, Absolute 6.8 10 3/mcL Normal 2.3-8.1 [facility] Comment on above: Performed By: #### D IFF, ANEU, CMP, MORPH, CBC, GFR, CEA ####[place] [address] CBCon 12-15-2024 Erythrocyte distribution width (RBC) [Ratio] 22.2 % High 11.5-15.5 [facility] Comment on above: Performed By: #### D IFF, ANEU, CMP, MORPH, CBC, GFR, CEA ####[place] [address] Hematocrit (Bld) [Volume fraction] 29.9 % Low 34.0-46.0 [facility] Comment on above: Performed By: #### D IFF, ANEU, CMP, MORPH, CBC, GFR, CEA ####[place] [address] Hgb 9.1 G/dL Low 12.0-16.0 [facility] Comment on above: Performed By: #### D IFF, ANEU, CMP, MORPH, CBC, GFR, CEA ####[place] [address] MCH (RBC) [Entitic mass] 23.5 pg Low 27.0-33.0 [facility] Comment on above: Performed By: #### D IFF, ANEU, CMP, MORPH, CBC, GFR, CEA ####[place] [address] MCHC 30.5 G/dL Low 32.0-36.0 [facility] Comment on above: Performed By: #### D IFF, ANEU, CMP, MORPH, CBC, GFR, CEA ####[place] [address] MCV (RBC) [Entitic vol] 77.0 fL Low 80.0-99.0 [facility] Comment on above: Performed By: #### D IFF, ANEU, CMP, MORPH, CBC, GFR, CEA ####[place] [address] Platelet 240 10 3/mcL Normal 150-450 [facility] Comment on above: Performed By: #### D IFF, ANEU, CMP, MORPH, CBC, GFR, CEA ####[place] [address] Platelet mean volume (Bld) [Entitic vol] 8.9 fL Normal 6.6-10.5 [facility] Comment on above: Performed By: #### D IFF, ANEU, CMP, MORPH, CBC, GFR, CEA ####[place] [address] RBC 3.89 10 6/mcL Low 4.10-5.30 [facility] Comment on above: Performed By: #### D IFF, ANEU, CMP, MORPH, CBC, GFR, CEA ####[place] [address] WBC 9.2 10 3/mcL Normal 4.5-10.8 [facility] Comment on above: Performed By: #### D IFF, ANEU, CMP, MORPH, CBC, GFR, CEA ####[place] [address] CEAon 12-15-2024 CEA 40.6 ng/mL High 0.0-3.0 [facility] Comment on above: Result Comment: CEA Reference Range for SMOKERS: 0.0 - 5.0 ng/mL.Testing performed on the [employer] IM analyzer usingdirect chemiluminesent technology. Patient resultsdetermined by assays using different manufacturers for methods may not be comparable. Performed By: #### D IFF, ANEU, CMP, MORPH, CBC, GFR, CEA ####[place] [id number] CMPon 12-15-2024 Albumin Level 3.5 G/dL Normal 3.2-4.8 [facility] Comment on above: Performed By: #### D IFF, ANEU, CMP, MORPH, CBC, GFR, CEA ####[place] [address] Albumin/Globulin [Mass ratio] 1.1 {ratio} Normal 0.9-1.6 [facility] Comment on above: Performed By: #### D IFF, ANEU, CMP, MORPH, CBC, GFR, CEA ####[place] [address] ALP [Catalytic activity/Vol] 129 U/L High 38-126 [facility] Comment on above: Performed By: #### D IFF, ANEU, CMP, MORPH, CBC, GFR, CEA ####[place] [address] ALT [Catalytic activity/Vol] 16 U/L Normal 10-49 [facility] Comment on above: Performed By: #### D IFF, ANEU, CMP, MORPH, CBC, GFR, CEA ####[place] [address] AST [Catalytic activity/Vol] 20 U/L Normal 8-34 [facility] Comment on above: Performed By: #### D IFF, ANEU, CMP, MORPH, CBC, GFR, CEA ####[place] [address] Bili Total 0.40 mg/dL Normal 0.20-1.20 [facility] Comment on above: Result Comment: Use of this assay is not recommended for patients undergoing treatment with eltrombopag due to the potential for falsely elevated results. Performed By: #### D IFF, ANEU, CMP, MORPH, CBC, GFR, CEA ####[place] [id number] BUN/Creatinine Ratio 22.0 ratio Normal 10.0-22.0 [facility] Comment on above: Performed By: #### D IFF, ANEU, CMP, MORPH, CBC, GFR, CEA ####[address] [address] Calcium [Mass/Vol] 9.0 mg/dL Normal 8.7-10.4 [facility] Comment on above: Performed By: #### D IFF, ANEU, CMP, MORPH, CBC, GFR, CEA ####[place] [id number] Chloride [Moles/Vol] 106 mmol/L Normal 98-110 [facility] Comment on above: Performed By: #### D IFF, ANEU, CMP, MORPH, CBC, GFR, CEA ####[place] [id number] CO2 [Moles/Vol] 28 mmol/L Normal 22-32 [facility] Comment on above: Performed By: #### D IFF, ANEU, CMP, MORPH, CBC, GFR, CEA ####[place] [address] Creatinine [Mass/Vol] 0.50 mg/dL Normal 0.50-1.20 [facility] Comment on above: Result Comment: Test ing performed on [employer] analyzer using enzymatic creatinine methodology. Performed By: #### D IFF, ANEU, CMP, MORPH, CBC, GFR, CEA ####[place] [address] Electrolyte Balance 9.0 mEq/L Normal 4.0-15.0 [facility] Comment on above: Performed By: #### D IFF, ANEU, CMP, MORPH, CBC, GFR, CEA ####[place] [address] Globulin 3.3 G/dL Normal 2.5-4.2 [facility] Comment on above: Performed By: #### D IFF, ANEU, CMP, MORPH, CBC, GFR, CEA ####[place] [address] Glucose [Mass/Vol] 89 mg/dL Normal 70-110 [facility] Comment on above: Performed By: #### D IFF, ANEU, CMP, MORPH, CBC, GFR, CEA ####[address] [address] Potassium [Moles/Vol] 3.7 mmol/L Normal 3.5-5.0 [facility] Comment on above: Performed By: #### D IFF, ANEU, CMP, MORPH, CBC, GFR, CEA ####[address] [address] Sodium [Moles/Vol] 143 mmol/L Normal 136-145 [facility] Comment on above: Performed By: #### D IFF, ANEU, CMP, MORPH, CBC, GFR, CEA ####[place] [address] Total Protein 6.8 G/dL Normal 5.7-8.2 [facility] Comment on above: Performed By: #### D IFF, ANEU, CMP, MORPH, CBC, GFR, CEA ####[place] [address] Urea nitrogen [Mass/Vol] 11.0 mg/dL Normal 8.0-22.0 [facility] Comment on above: Performed By: #### D IFF, ANEU, CMP, MORPH, CBC, GFR, CEA ####[address] [address] LABORATORYOrdered By: SYSTEM SYSTEM on 12-15-2024 Albumin BCP dye [Mass/Vol] 3.5 G/dL Normal 3.2 - 4.8 G/dL ADM SS Albumin/Globulin [Mass ratio] 1.1 {ratio} Normal 0.9 - 1.6 ratio AH ADM SS ALP [Catalytic activity/Vol] 129 U/L High 38 - 126 U/L ADM SS ALT No additional P-5'-P [Catalytic activity/Vol] 16 U/L Normal 10 - 49 U/L ADM SS Anisocytosis Ql (Bld) 2+ *NA* (12/15/24 8:54 AM) Invalid Interpretation Code Workflow SS AST [Catalytic activity/Vol] 20 U/L Normal 8 - 34 U/L ADM SS Band form neutrophils/100 WBC (Bld) 5.0 % Normal 0.0 - 5.0 % Workflow SS Basophils (Bld) [#/Vol] 0.0 103/mcL Normal 0.0 - 0.3 10^3/mcL Workflow SS Basophils/100 WBC (Bld) 0.0 % Normal 0.0 - 2.5 % Workflow SS Bilirubin [Mass/Vol] 0.40 mg/dL Normal 0.20 - 1.20 mg/dL ADM SS Comment on above: Interpretive Data: U se of this assay is not recommended for patients undergoing treatment with eltrombopag due to the potential for falsely elevated results. Calcium [Mass/Vol] 9.0 mg/dL Normal 8.7 - 10. 4 mg/dL ADM SS Carcinoembryonic Ag [Mass/Vol] 40.6 ng/mL High 0.0 - 3.0 ng/mL ADM SS Comment on above: Interpretive Data: C EA Reference Range for SMOKERS: 0.0 - 5.0 ng/mL. Testing performed on the Cover IM analyzer using direct chemiluminesent technology. Patient results determined by assays using different manufacturers for methods may not be comparable. Chloride [Moles/Vol] 106 mmol/L Normal 98 - 11 0 mEq/L ADM SS CO2 [Moles/Vol] 28 mmol/L Normal 22 - 32 mEq/L ADM SS Creatinine [Mass/Vol] 0.50 mg/dL Normal 0.50 - 1.20 mg/dL ADM SS Comment on above: Interpretive Data: T esting performed on Cover CH analyzer using enzymatic creatinine methodology. Electrolyte Balance 9.0 mEq/L Normal 4.0 - 15 .0 mEq/L ADM SS Eosinophils (Bld) [#/Vol] 0.2 103/mcL Normal 0.0 - 0.7 10^3/mcL Workflow SS Eosinophils/100 WBC (Bld) 2.0 % Normal 0.0 - 6.0 % Workflow SS Erythrocyte distribution width (RBC) [Ratio] 22.2 % High 11.5 - 15.5 % Workflow SS Estimated Glomerular Filtration Rate 119 ml/min/1.73sqm Invalid Interpretation Code ADM SS Comment on above: Interpretive Data: Stages of Chronic Kidney Disease (CKD) Stage Description eGFR(ml/min/1.73 sq.m.) CKD 1 Normal kidney function or >=90 normal kindney function with possible kidney damage (ex. Proteinuria) CKD 2 Kidney damage with mild loss 60-89 of kidney function CKD 3a Mild to moderate loss of kidney 45-59 function CKD 3b Moderate to severe loss of 30-44 of kindey function CKD 4 Severe loss of kidney function 15-29 CKD 5 Kidney failure <15 Note: (go live 2024) the eGFR calculation was updated to the 2020 CKD-EPI creatinine equation without a race factor to calculate the eGFR results. Globulin 3.3 G/dL Normal 2.5 - 4.2 G/dL AH ADM SS Glucose [Mass/Vol] 89 mg/dL Normal 70 - 110 mg/dL AH ADM SS Hematocrit (Bld) [Volume fraction] 29.9 % Low 34.0 - 46.0 % AH Workflow SS Hemoglobin (Bld) [Mass/Vol] 9.1 G/dL Low 12.0 - 16.0 G/dL AH Workflow SS Lymphocytes (Bld) [#/Vol] 1.4 103/mcL Normal 0.9 - 4.3 10^3/mcL AH Workflow SS Lymphocytes/100 WBC (Bld) 15.0 % Low 20.0 - 40.0 % AH Workflow SS MCH (RBC) [Entitic mass] 23.5 pg Low 27.0 - 33.0 pg AH Workflow SS MCHC 30.5 G/dL Low 32.0 - 36.0 G/dL AH Workflow SS MCV (RBC) [Entitic vol] 77.0 fL Low 80.0 - 99.0 fL AH Workflow SS Metamyelocytes/100 WBC (Bld) 2.0 % Invalid Interpretation Code AH Workflow SS Microcytes Ql (Bld) 1+ *NA* (12/15/24 8:54 AM) Invalid Interpretation Code AH Workflow SS Monocytes (Bld) [#/Vol] 0.5 103/mcL Normal 0.1 - 1.4 10^3/mcL AH Workflow SS Monocytes/100 WBC (Bld) 6.0 % Normal 2.0 - 13.0 % AH Workflow SS Neutrophils (Bld) [#/Vol] 6.8 103/mcL Normal 2.3 - 8.1 10^3/mcL AH Workflow SS Neutrophils (Bld) [#/Vol] 6.9 103/mcL Normal 2.3 - 8.1 10^3/mcL AH Workflow SS Neutrophils/100 WBC (Bld) 70.0 % Normal 50.0 - 75.0 % AH Workflow SS Nucleated RBC 0.0 /100 WBC Invalid Interpretation Code AH Workflow SS Ovalocytes LM Ql (Bld) 1+ *NA* (12/15/24 8:54 AM) Invalid Interpretation Code Workflow SS Platelet mean volume (Bld) [Entitic vol] 8.9 fL Normal 6.6 - 10.5 fL AH Workflow SS Platelets (Bld) [#/Vol] 240 103/mcL Normal 150 - 450 10^3/mcL Workflow SS Platelets LM Ql (Bld) Normal *NA* (12/15/24 8:54 AM) Invalid Interpretation Code Workflow SS Poikilocytosis LM Ql (Bld) 1+ *NA* (12/15/24 8:54 AM) Invalid Interpretation Code Workflow SS Polychromasia LM Ql (Bld) 1+ *NA* (12/15/24 8:54 AM) Invalid Interpretation Code Workflow SS Potassium [Moles/Vol] 3.7 mmol/L Normal 3.5 - 5.0 mEq/L AH ADM SS Protein [Mass/Vol] 6.8 G/dL Normal 5.7 - 8.2 G/dL AH ADM SS RBC (Bld) [#/Vol] 3.89 106/mcL Low 4.10 - 5.30 10^6/mcL Workflow SS Sodium [Moles/Vol] 143 mmol/L Normal 136 - 145 mEq/L ADM SS Urea nitrogen [Mass/Vol] 11.0 mg/dL Normal 8.0 - 22.0 mg/dL ADM SS Urea nitrogen/Creatinine [Mass ratio] 22.0 ratio Normal 10.0 - 22.0 ratio ADM SS WBC (Bld) [#/Vol] 9.2 103/mcL Normal 4.5 - 10.8 10^3/mcL Workflow SS .Auto Diffon 12-01-2024 Basophil, Absolute 0.0 10 3/mcL Normal 0.0-0.3 [facility] Comment on above: Performed By: #### A KRISTI, CBC, CMP, GFR, ADIFF ####[id number] [place] [address] Basophils/100 WBC (Bld) 0.3 % Normal 0.0-2.5 [facility] Comment on above: Performed By: #### A KRISTI, CBC, CMP, GFR, ADIFF ####[address] [address] Eosinophil, Absolute 0.0 10 3/mcL Normal 0.0-0.7 [facility] Comment on above: Performed By: #### A KRISTI, CBC, CMP, GFR, ADIFF ####[address] [address] Eosinophils/100 WBC (Bld) 0.6 % Normal 0.0-6.0 [facility] Comment on above: Performed By: #### A KRISTI, CBC, CMP, GFR, ADIFF ####[address] [address] Lymphocyte, Absolute 1.5 10 3/mcL Normal 0.9-4.3 [facility] Comment on above: Performed By: #### A KRISTI, CBC, CMP, GFR, ADIFF ####[address] [address] Lymphocytes/100 WBC (Bld) 25.8 % Normal 20.0-40.0 [facility] Comment on above: Performed By: #### A KRISTI, CBC, CMP, GFR, ADIFF ####[address] [address] Monocyte, Absolute 0.4 10 3/mcL Normal 0.1-1.4 [facility] Comment on above: Performed By: #### A KRISTI, CBC, CMP, GFR, ADIFF ####[address] [address] Monocytes/100 WBC (Bld) 7.6 % Normal 2.0-13.0 [facility] Comment on above: Performed By: #### A KRISTI, CBC, CMP, GFR, ADIFF ####[address] [address] Neutrophils/100 WBC (Bld) 65.7 % Normal 50.0-75.0 [facility] Comment on above: Performed By: #### A KRISTI, CBC, CMP, GFR, ADIFF ####[place] [address] .GFRon 12-01-2024 GFR/1.73 sq M.predicted among non-blacks MDRD (S/P/Bld) [Vol rate/Area] mL/min/{1.73_m2} Normal [facility] Comment on above: Result Comment: Stag es of Chronic Kidney Disease (CKD)Stage Description eGFR(ml/min/1.73 sq.m.)CKD 1 Normal kidney function or >=90 normal kindney function with possible kidney damage (ex. Proteinuria)CKD 2 Kidney damage with mild loss 60-89 of kidney functionCKD 3a Mild to moderate loss of kidney 45-59 functionCKD 3b Moderate to severe loss of 30-44 of kindey function CKD 4 Severe loss of kidney function 15-29CKD 5 Kidney failure <15Note: (go live 2024) the eGFR calculation was updated to the KD-EPI creatinine equation without a race factor to calculate theeGFR results. Performed By: #### A KRISTI, CBC, CMP, GFR, ADIFF ####[place] [address] .NEUABSon 12-01-2024 Neutrophil, Absolute 3.8 10 3/mcL Normal 2.3-8.1 [facility] Comment on above: Performed By: #### A KRISTI, CBC, CMP, GFR, ADIFF ####[place] [address] CBCon 12-01-2024 Erythrocyte distribution width (RBC) [Ratio] 21.9 % High 11.5-15.5 [facility] Comment on above: Performed By: #### A KRISTI, CBC, CMP, GFR, ADIFF ####[place] [address] Hematocrit (Bld) [Volume fraction] 29.3 % Low 34.0-46.0 [facility] Comment on above: Performed By: #### A KRISTI, CBC, CMP, GFR, ADIFF ####[place] [address] Hgb 9.0 G/dL Low 12.0-16.0 [facility] Comment on above: Performed By: #### A KRISTI, CBC, CMP, GFR, ADIFF ####[place] [address] MCH (RBC) [Entitic mass] 23.4 pg Low 27.0-33.0 [facility] Comment on above: Performed By: #### A KRISTI, CBC, CMP, GFR, ADIFF ####[place] [address] MCHC 30.7 G/dL Low 32.0-36.0 [facility] Comment on above: Performed By: #### A KRISTI, CBC, CMP, GFR, ADIFF ####[place] [address] MCV (RBC) [Entitic vol] 76.3 fL Low 80.0-99.0 [facility] Comment on above: Performed By: #### A KRISTI, CBC, CMP, GFR, ADIFF ####[place] [address] Platelet 301 10 3/mcL Normal 150-450 [facility] Comment on above: Performed By: #### A KRISTI, CBC, CMP, GFR, ADIFF ####[place] [address] Platelet mean volume (Bld) [Entitic vol] 8.4 fL Normal 6.6-10.5 [facility] Comment on above: Performed By: #### A KRISTI, CBC, CMP, GFR, ADIFF ####[place] [address] RBC 3.84 10 6/mcL Low 4.10-5.30 [facility] Comment on above: Performed By: #### A KRISTI, CBC, CMP, GFR, ADIFF ####[place] [address] WBC 5.7 10 3/mcL Normal 4.5-10.8 [facility] Comment on above: Performed By: #### A KRISTI, CBC, CMP, GFR, ADIFF ####[place] [address] CMPon 12-01-2024 Albumin Level 3.7 G/dL Normal 3.2-4.8 [facility] Comment on above: Performed By: #### A KRISTI, CBC, CMP, GFR, ADIFF ####[place] [id number] Albumin/Globulin [Mass ratio] 1.1 {ratio} Normal 0.9-1.6 [facility] Comment on above: Performed By: #### A KRISTI, CBC, CMP, GFR, ADIFF ####[place] [id number] ALP [Catalytic activity/Vol] 127 U/L High 38-126 [facility] Comment on above: Performed By: #### A KRISTI, CBC, CMP, GFR, ADIFF ####[place] [id number] ALT [Catalytic activity/Vol] 17 U/L Normal 10-49 [facility] Comment on above: Performed By: #### A KRISTI, CBC, CMP, GFR, ADIFF ####[place] [id number] AST [Catalytic activity/Vol] 19 U/L Normal 8-34 [facility] Comment on above: Performed By: #### A KRISTI, CBC, CMP, GFR, ADIFF ####[place] [id number] Bili Total 0.50 mg/dL Normal 0.20-1.20 [facility] Comment on above: Result Comment: Use of this assay is not recommended for patients undergoing treatment with eltrombopag due to the potential for falsely elevated results. Performed By: #### A KRISTI, CBC, CMP, GFR, ADIFF ####[place] [id number] BUN/Creatinine Ratio 15.6 ratio Normal 10.0-22.0 [facility] Comment on above: Performed By: #### A KRISTI, CBC, CMP, GFR, ADIFF ####[address] [address] Calcium [Mass/Vol] 8.9 mg/dL Normal 8.7-10.4 [facility] Comment on above: Performed By: #### A KRISTI, CBC, CMP, GFR, ADIFF ####[address] [address] Chloride [Moles/Vol] 107 mmol/L Normal 98-110 [facility] Comment on above: Performed By: #### A KRISTI, CBC, CMP, GFR, ADIFF ####[address] [address] CO2 [Moles/Vol] 26 mmol/L Normal 22-32 [facility] Comment on above: Performed By: #### A KRISTI, CBC, CMP, GFR, ADIFF ####[address] [address] Creatinine [Mass/Vol] 0.45 mg/dL Low 0.50-1.20 [facility] Comment on above: Result Comment: Test ing performed on [employer] analyzer using enzymatic creatinine methodology. Performed By: #### A KRISTI, CBC, CMP, GFR, ADIFF ####[address] [address] Electrolyte Balance 9.0 mEq/L Normal 4.0-15.0 [facility] Comment on above: Performed By: #### A KRISTI, CBC, CMP, GFR, ADIFF ####[address] [address] Globulin 3.4 G/dL Normal 2.5-4.2 [facility] Comment on above: Performed By: #### A KRISTI, CBC, CMP, GFR, ADIFF ####[address] [address] Glucose [Mass/Vol] 100 mg/dL Normal 70-110 [facility] Comment on above: Performed By: #### A KRISTI, CBC, CMP, GFR, ADIFF ####[address] [address] Potassium [Moles/Vol] 3.6 mmol/L Normal 3.5-5.0 [facility] Comment on above: Performed By: #### A KRISTI, CBC, CMP, GFR, ADIFF ####[address] [address] Sodium [Moles/Vol] 142 mmol/L Normal 136-145 [facility] Comment on above: Performed By: #### A KRISTI, CBC, CMP, GFR, ADIFF ####[place] [id number] [address] [place] [address] Total Protein 7.1 G/dL Normal 5.7-8.2 [facility] Comment on above: Performed By: #### A KRISTI, CBC, CMP, GFR, ADIFF ####[id number] [place] [address] Urea nitrogen [Mass/Vol] 7.0 mg/dL Low 8.0-22.0 [facility] Comment on above: Performed By: #### A KRISTI, CBC, CMP, GFR, ADIFF ####[place] [id number] [address] [place] [address] LABORATORYOrdered By: SYSTEM SYSTEM on 12-01-2024 Albumin BCP dye [Mass/Vol] 3.7 G/dL Normal 3.2 - 4.8 G/dL ADM SS Albumin/Globulin [Mass ratio] 1.1 {ratio} Normal 0.9 - 1.6 ratio ADM SS ALP [Catalytic activity/Vol] 127 U/L High 38 - 126 U/L ADM SS ALT No additional P-5'-P [Catalytic activity/Vol] 17 U/L Normal 10 - 49 U/L ADM SS AST [Catalytic activity/Vol] 19 U/L Normal 8 - 34 U/L ADM SS Basophils (Bld) [#/Vol] 0.0 103/mcL Normal 0.0 - 0.3 10^3/mcL Workflow SS Basophils/100 WBC (Bld) 0.3 % Normal 0.0 - 2.5 % Workflow SS Bilirubin [Mass/Vol] 0.50 mg/dL Normal 0.20 - 1.20 mg/dL ADM SS Comment on above: Interpretive Data: U se of this assay is not recommended for patients undergoing treatment with eltrombopag due to the potential for falsely elevated results. Calcium [Mass/Vol] 8.9 mg/dL Normal 8.7 - 10. 4 mg/dL ADM SS Chloride [Moles/Vol] 107 mmol/L Normal 98 - 11 0 mEq/L AH ADM SS CO2 [Moles/Vol] 26 mmol/L Normal 22 - 32 mEq/L ADM SS Creatinine [Mass/Vol] 0.45 mg/dL Low 0.50 - 1.20 mg/dL ADM SS Comment on above: Interpretive Data: T esting performed on [employer] analyzer using enzymatic creatinine methodology. Electrolyte Balance 9.0 mEq/L Normal 4.0 - 15 .0 mEq/L ADM SS Eosinophils (Bld) [#/Vol] 0.0 103/mcL Normal 0.0 - 0.7 10^3/mcL Workflow SS Eosinophils/100 WBC (Bld) 0.6 % Normal 0.0 - 6.0 % Workflow SS Erythrocyte distribution width (RBC) [Ratio] 21.9 % High 11.5 - 15.5 % Workflow SS Estimated Glomerular Filtration Rate ml/min/1.73sqm Invalid Interpretation Code ADM SS Comment on above: Interpretive Data: Stages of Chronic Kidney Disease (CKD) Stage Description eGFR(ml/min/1.73 sq.m.) CKD 1 Normal kidney function or >=90 normal kindney function with possible kidney damage (ex. Proteinuria) CKD 2 Kidney damage with mild loss 60-89 of kidney function CKD 3a Mild to moderate loss of kidney 45-59 function CKD 3b Moderate to severe loss of 30-44 of kindey function CKD 4 Severe loss of kidney function 15-29 CKD 5 Kidney failure <15 Note: (go live 2024) the eGFR calculation was updated to the 2020 CKD-EPI creatinine equation without a race factor to calculate the eGFR results. Globulin 3.4 G/dL Normal 2.5 - 4.2 G/dL ADM SS Glucose [Mass/Vol] 100 mg/dL Normal 70 - 110 mg/dL ADM SS Hematocrit (Bld) [Volume fraction] 29.3 % Low 34.0 - 46.0 % Workflow SS Hemoglobin (Bld) [Mass/Vol] 9.0 G/dL Low 12.0 - 16.0 G/dL Workflow SS Lymphocytes (Bld) [#/Vol] 1.5 103/mcL Normal 0.9 - 4.3 10^3/mcL AH Workflow SS Lymphocytes/100 WBC (Bld) 25.8 % Normal 20.0 - 40.0 % Workflow SS MCH (RBC) [Entitic mass] 23.4 pg Low 27.0 - 33.0 pg AH Workflow SS MCHC 30.7 G/dL Low 32.0 - 36.0 G/dL AH Workflow SS MCV (RBC) [Entitic vol] 76.3 fL Low 80.0 - 99.0 fL AH Workflow SS Monocytes (Bld) [#/Vol] 0.4 103/mcL Normal 0.1 - 1.4 10^3/mcL AH Workflow SS Monocytes/100 WBC (Bld) 7.6 % Normal 2.0 - 13.0 % AH Workflow SS Neutrophils (Bld) [#/Vol] 3.8 103/mcL Normal 2.3 - 8.1 10^3/mcL AH Workflow SS Neutrophils/100 WBC (Bld) 65.7 % Normal 50.0 - 75.0 % AH Workflow SS Platelet mean volume (Bld) [Entitic vol] 8.4 fL Normal 6.6 - 10.5 fL AH Workflow SS Platelets (Bld) [#/Vol] 301 103/mcL Normal 150 - 450 10^3/mcL AH Workflow SS Potassium [Moles/Vol] 3.6 mmol/L Normal 3.5 - 5.0 mEq/L AH ADM SS Protein [Mass/Vol] 7.1 G/dL Normal 5.7 - 8.2 G/dL AH ADM SS RBC (Bld) [#/Vol] 3.84 106/mcL Low 4.10 - 5.30 10^6/mcL AH Workflow SS Sodium [Moles/Vol] 142 mmol/L Normal 136 - 145 mEq/L AH ADM SS Urea nitrogen [Mass/Vol] 7.0 mg/dL Low 8.0 - 22.0 mg/dL AH ADM SS Urea nitrogen/Creatinine [Mass ratio] 15.6 ratio Normal 10.0 - 22.0 ratio AH ADM SS WBC (Bld) [#/Vol] 5.7 103/mcL Normal 4.5 - 10.8 10^3/mcL AH Workflow SS .GFRon 11-17-2024 Estimated Glomerular Filtration Rate 120 ml/min/1.73sqm Normal [facility] Comment on above: Result Comment: Stag es of Chronic Kidney Disease (CKD)Stage Description eGFR(ml/min/1.73 sq.m.)CKD 1 Normal kidney function or >=90 normal kindney function with possible kidney damage (ex. Proteinuria)CKD 2 Kidney damage with mild loss 60-89 of kidney functionCKD 3a Mild to moderate loss of kidney 45-59 functionCKD 3b Moderate to severe loss of 30-44 of kindey function CKD 4 Severe loss of kidney function 15-29CKD 5 Kidney failure <15Note: (go live 2024) the eGFR calculation was updated to the KD-EPI creatinine equation without a race factor to calculate theeGFR results. Performed By: #### A KRISTI, DIFF, GFR, CBC, CMP, MORPH ####[place] [address] .Manual Diffon 11-17-2024 Bands 3.0 % Normal 0.0-5.0 [facility] Comment on above: Performed By: #### A KRISTI, DIFF, GFR, CBC, CMP, MORPH ####[place] [address] Basophil %, Manual 0.0 % Normal 0.0-2.5 [facility] Comment on above: Performed By: #### A KRISTI, DIFF, GFR, CBC, CMP, MORPH ####[place] [address] Basophil, Abs Manual 0.0 10 3/mcL Normal 0.0-0.3 [facility] Comment on above: Performed By: #### A KRISTI, DIFF, GFR, CBC, CMP, MORPH ####[place] [address] Blast 1.0 % Normal [facility] Comment on above: Performed By: #### A KRISTI, DIFF, GFR, CBC, CMP, MORPH ####[place] [address] Eosinophil %, Manual 1.0 % Normal 0.0-6.0 [facility] Comment on above: Performed By: #### A KRISTI, DIFF, GFR, CBC, CMP, MORPH ####[place] [address] Eosinophil, Abs Manual 0.1 10 3/mcL Normal 0.0-0.7 [facility] Comment on above: Performed By: #### A KRISTI, DIFF, GFR, CBC, CMP, MORPH ####[address] [address] Lymphocyte %, Manual 11.0 % Low 20.0-40.0 [facility] Comment on above: Performed By: #### A KRISTI, DIFF, GFR, CBC, CMP, MORPH ####[address] [address] Lymphocyte, Abs Manual 1.6 10 3/mcL Normal 0.9-4.3 [facility] Comment on above: Performed By: #### A KRISTI, DIFF, GFR, CBC, CMP, MORPH ####[address] [address] Metamyelocyte 1.0 % Normal [facility] Comment on above: Performed By: #### A KRISTI, DIFF, GFR, CBC, CMP, MORPH ####[address] [address] Monocyte %, Manual 2.0 % Normal 2.0-13.0 [facility] Comment on above: Performed By: #### A KRISTI, DIFF, GFR, CBC, CMP, MORPH ####[address] [address] Monocyte, Abs Manual 0.3 10 3/mcL Normal 0.1-1.4 [facility] Comment on above: Performed By: #### A KRISTI, DIFF, GFR, CBC, CMP, MORPH ####[address] [address] Neutrophil %, Manual 81.0 % High 50.0-75.0 [facility] Comment on above: Performed By: #### A KRISTI, DIFF, GFR, CBC, CMP, MORPH ####[address] [address] Neutrophil, Abs Manual 11.7 10 3/mcL High 2.3-8.1 [facility] Comment on above: Performed By: #### A KRISTI, DIFF, GFR, CBC, CMP, MORPH ####[address] [address] Nucleated RBC 0.0 /100 WBC Normal [facility] Comment on above: Performed By: #### A KRISTI, DIFF, GFR, CBC, CMP, MORPH ####[place] [address] .Morphon 11-17-2024 Anisocytosis Ql (Bld) 2+ Normal [facility] Comment on above: Performed By: #### A KRISTI, DIFF, GFR, CBC, CMP, MORPH ####[place] [address] Hypochrom 1+ [facility] Comment on above: Performed By: #### A KRISTI, DIFF, GFR, CBC, CMP, MORPH ####[place] [address] Microcytosis 2+ Normal [facility] Comment on above: Performed By: #### A KRISTI, DIFF, GFR, CBC, CMP, MORPH ####[place] [address] Platelet Estimate Normal [facility] Comment on above: Performed By: #### A KRISTI, DIFF, GFR, CBC, CMP, MORPH ####[place] [address] Poik 1+ [facility] Comment on above: Performed By: #### A KRISTI, DIFF, GFR, CBC, CMP, MORPH ####[place] [address] Polychrom 1+ [facility] Comment on above: Performed By: #### A KRISTI, DIFF, GFR, CBC, CMP, MORPH ####[place] [address] Stomatocytes 1+ [facility] Comment on above: Performed By: #### A KRISTI, DIFF, GFR, CBC, CMP, MORPH ####[place] [address] Toxic Gran 1+ [facility] Comment on above: Performed By: #### A KRISTI, DIFF, GFR, CBC, CMP, MORPH ####[place] [address] .NEUABSon 11-17-2024 Neutrophil, Absolute 11.3 10 3/mcL High 2.3-8.1 A [facility] Comment on above: Performed By: #### A KRISTI, DIFF, GFR, CBC, CMP, MORPH ####[place] [address] CBCon 11-17-2024 Erythrocyte distribution width (RBC) [Ratio] 22.1 % High 11.5-15.5 [facility] Comment on above: Performed By: #### A KRISTI, DIFF, GFR, CBC, CMP, MORPH ####[place] [address] Hematocrit (Bld) [Volume fraction] 29.7 % Low 34.0-46.0 [facility] Comment on above: Performed By: #### A KRISTI, DIFF, GFR, CBC, CMP, MORPH ####[place] [address] Hgb 9.0 G/dL Low 12.0-16.0 [facility] Comment on above: Performed By: #### A KRISTI, DIFF, GFR, CBC, CMP, MORPH ####[place] [address] MCH (RBC) [Entitic mass] 22.5 pg Low 27.0-33.0 [facility] Comment on above: Performed By: #### A KRISTI, DIFF, GFR, CBC, CMP, MORPH ####[place] [address] MCHC 30.3 G/dL Low 32.0-36.0 [facility] Comment on above: Performed By: #### A KRISTI, DIFF, GFR, CBC, CMP, MORPH ####[place] [address] MCV (RBC) [Entitic vol] 74.5 fL Low 80.0-99.0 [facility] Comment on above: Performed By: #### A KRISTI, DIFF, GFR, CBC, CMP, MORPH ####[place] [address] Platelet 166 10 3/mcL Normal 150-450 [facility] Comment on above: Performed By: #### A KRISTI, DIFF, GFR, CBC, CMP, MORPH ####[place] [address] Platelet mean volume (Bld) [Entitic vol] 9.3 fL Normal 6.6-10.5 [facility] Comment on above: Performed By: #### A KRISTI, DIFF, GFR, CBC, CMP, MORPH ####[place] [address] RBC 3.99 10 6/mcL Low 4.10-5.30 [facility] Comment on above: Performed By: #### A KRISTI, DIFF, GFR, CBC, CMP, MORPH ####[place] [address] WBC 14.0 10 3/mcL High 4.5-10.8 [facility] Comment on above: Performed By: #### A KRISTI, DIFF, GFR, CBC, CMP, MORPH ####[place] [address] CMPon 11-17-2024 Albumin Level 3.6 G/dL Normal 3.2-4.8 [facility] Comment on above: Performed By: #### A KRISTI, DIFF, GFR, CBC, CMP, MORPH ####[place] [address] Albumin/Globulin [Mass ratio] 1.1 {ratio} Normal 0.9-1.6 [facility] Comment on above: Performed By: #### A KRISTI, DIFF, GFR, CBC, CMP, MORPH ####[place] [address] ALP [Catalytic activity/Vol] 150 U/L High 38-126 [facility] Comment on above: Performed By: #### A KRISTI, DIFF, GFR, CBC, CMP, MORPH ####[place] [address] ALT [Catalytic activity/Vol] 26 U/L Normal 10-49 [facility] Comment on above: Performed By: #### A KRISTI, DIFF, GFR, CBC, CMP, MORPH ####[place] [address] AST [Catalytic activity/Vol] 30 U/L Normal 8-34 [facility] Comment on above: Performed By: #### A KRISTI, DIFF, GFR, CBC, CMP, MORPH ####[place] [address] Bili Total 0.60 mg/dL Normal 0.20-1.20 [facility] Comment on above: Result Comment: Use of this assay is not recommended for patients undergoing treatment with eltrombopag due to the potential for falsely elevated results. Performed By: #### A KRISTI, DIFF, GFR, CBC, CMP, MORPH ####[place] [address] BUN/Creatinine Ratio 12.8 ratio Normal 10.0-22.0 [facility] Comment on above: Performed By: #### A KRISTI, DIFF, GFR, CBC, CMP, MORPH ####[place] [address] Calcium [Mass/Vol] 9.7 mg/dL Normal 8.7-10.4 [facility] Comment on above: Performed By: #### A KRISTI, DIFF, GFR, CBC, CMP, MORPH ####[place] [address] Chloride [Moles/Vol] 106 mmol/L Normal 98-110 [facility] Comment on above: Performed By: #### A KRISTI, DIFF, GFR, CBC, CMP, MORPH ####[place] [address] CO2 [Moles/Vol] 28 mmol/L Normal 22-32 [facility] Comment on above: Performed By: #### A KRISTI, DIFF, GFR, CBC, CMP, MORPH ####[place] [address] Creatinine [Mass/Vol] 0.47 mg/dL Low 0.50-1.20 [facility] Comment on above: Result Comment: Test ing performed on [employer] analyzer using enzymatic creatinine methodology. Performed By: #### A KRISTI, DIFF, GFR, CBC, CMP, MORPH ####[place] [address] Electrolyte Balance 9.0 mEq/L Normal 4.0-15.0 [facility] Comment on above: Performed By: #### A KRISTI, DIFF, GFR, CBC, CMP, MORPH ####[place] [id number] Globulin 3.4 G/dL Normal 2.5-4.2 [facility] Comment on above: Performed By: #### A KRISTI, DIFF, GFR, CBC, CMP, MORPH ####[address] [address] Glucose [Mass/Vol] 94 mg/dL Normal 70-110 [facility] Comment on above: Performed By: #### A KRISTI, DIFF, GFR, CBC, CMP, MORPH ####[address] [address] Potassium [Moles/Vol] 3.6 mmol/L Normal 3.5-5.0 [facility] Comment on above: Performed By: #### A KRISTI, DIFF, GFR, CBC, CMP, MORPH ####[place] [address] Sodium [Moles/Vol] 143 mmol/L Normal 136-145 [facility] Comment on above: Performed By: #### A KRISTI, DIFF, GFR, CBC, CMP, MORPH ####[place] [address] Total Protein 7.0 G/dL Normal 5.7-8.2 [facility] Comment on above: Performed By: #### A KRISTI, DIFF, GFR, CBC, CMP, MORPH ####[address] [address] Urea nitrogen [Mass/Vol] 6.0 mg/dL Low 8.0-22.0 [facility] Comment on above: Performed By: #### A KRISTI, DIFF, GFR, CBC, CMP, MORPH ####[address] [address] LABORATORYOrdered By: SYSTEM SYSTEM on 11-17-2024 Albumin BCP dye [Mass/Vol] 3.6 G/dL Normal 3.2 - 4.8 G/dL ADM SS Albumin/Globulin [Mass ratio] 1.1 {ratio} Normal 0.9 - 1.6 ratio ADM SS ALP [Catalytic activity/Vol] 150 U/L High 38 - 126 U/L ADM SS ALT No additional P-5'-P [Catalytic activity/Vol] 26 U/L Normal 10 - 49 U/L ADM SS Anisocytosis Ql (Bld) 2+ *NA* (11/17/24 9:13 AM) Invalid Interpretation Code Workflow SS AST [Catalytic activity/Vol] 30 U/L Normal 8 - 34 U/L ADM SS Band form neutrophils/100 WBC (Bld) 3.0 % Normal 0.0 - 5.0 % AH Workflow SS Basophils (Bld) [#/Vol] 0.0 103/mcL Normal 0.0 - 0.3 10^3/mcL AH Workflow SS Basophils/100 WBC (Bld) 0.0 % Normal 0.0 - 2.5 % Workflow SS Bilirubin [Mass/Vol] 0.60 mg/dL Normal 0.20 - 1.20 mg/dL ADM SS Comment on above: Interpretive Data: U se of this assay is not recommended for patients undergoing treatment with eltrombopag due to the potential for falsely elevated results. Blasts/100 WBC (Bld) 1.0 % Invalid Interpretation Code Workflow SS Calcium [Mass/Vol] 9.7 mg/dL Normal 8.7 - 10. 4 mg/dL ADM SS Chloride [Moles/Vol] 106 mmol/L Normal 98 - 11 0 mEq/L ADM SS CO2 [Moles/Vol] 28 mmol/L Normal 22 - 32 mEq/L ADM SS Creatinine [Mass/Vol] 0.47 mg/dL Low 0.50 - 1.20 mg/dL ADM SS Comment on above: Interpretive Data: T esting performed on [employer] analyzer using enzymatic creatinine methodology. Electrolyte Balance 9.0 mEq/L Normal 4.0 - 15 .0 mEq/L ADM SS Eosinophils (Bld) [#/Vol] 0.1 103/mcL Normal 0.0 - 0.7 10^3/mcL Workflow SS Eosinophils/100 WBC (Bld) 1.0 % Normal 0.0 - 6.0 % Workflow SS Erythrocyte distribution width (RBC) [Ratio] 22.1 % High 11.5 - 15.5 % Workflow SS Estimated Glomerular Filtration Rate 120 ml/min/1.73sqm Invalid Interpretation Code ADM SS Comment on above: Interpretive Data: Stages of Chronic Kidney Disease (CKD) Stage Description eGFR(ml/min/1.73 sq.m.) CKD 1 Normal kidney function or >=90 normal kindney function with possible kidney damage (ex. Proteinuria) CKD 2 Kidney damage with mild loss 60-89 of kidney function CKD 3a Mild to moderate loss of kidney 45-59 function CKD 3b Moderate to severe loss of 30-44 of kindey function CKD 4 Severe loss of kidney function 15-29 CKD 5 Kidney failure <15 Note: (go live 2024) the eGFR calculation was updated to the 2020 CKD-EPI creatinine equation without a race factor to calculate the eGFR results. Globulin 3.4 G/dL Normal 2.5 - 4.2 G/dL AH ADM SS Glucose [Mass/Vol] 94 mg/dL Normal 70 - 110 mg/dL AH ADM SS Hematocrit (Bld) [Volume fraction] 29.7 % Low 34.0 - 46.0 % AH Workflow SS Hemoglobin (Bld) [Mass/Vol] 9.0 G/dL Low 12.0 - 16.0 G/dL AH Workflow SS Hypochromia Ql (Bld) 1+ *NA* (11/17/24 9:13 AM) Invalid Interpretation Code AH Workflow SS Lymphocytes (Bld) [#/Vol] 1.6 103/mcL Normal 0.9 - 4.3 10^3/mcL AH Workflow SS Lymphocytes/100 WBC (Bld) 11.0 % Low 20.0 - 40.0 % AH Workflow SS MCH (RBC) [Entitic mass] 22.5 pg Low 27.0 - 33.0 pg AH Workflow SS MCHC 30.3 G/dL Low 32.0 - 36.0 G/dL AH Workflow SS MCV (RBC) [Entitic vol] 74.5 fL Low 80.0 - 99.0 fL AH Workflow SS Metamyelocytes/100 WBC (Bld) 1.0 % Invalid Interpretation Code AH Workflow SS Microcytes Ql (Bld) 2+ *NA* (11/17/24 9:13 AM) Invalid Interpretation Code AH Workflow SS Monocytes (Bld) [#/Vol] 0.3 103/mcL Normal 0.1 - 1.4 10^3/mcL AH Workflow SS Monocytes/100 WBC (Bld) 2.0 % Normal 2.0 - 13.0 % AH Workflow SS Neutrophils (Bld) [#/Vol] 11.7 103/mcL High 2.3 - 8.1 10^3/mcL AH Workflow SS Neutrophils (Bld) [#/Vol] 11.3 103/mcL High 2.3 - 8.1 10^3/mcL Workflow SS Neutrophils/100 WBC (Bld) 81.0 % High 50.0 - 75.0 % Workflow SS Nucleated RBC 0.0 /100 WBC Invalid Interpretation Code Workflow SS Platelet mean volume (Bld) [Entitic vol] 9.3 fL Normal 6.6 - 10.5 fL AH Workflow SS Platelets (Bld) [#/Vol] 166 103/mcL Normal 150 - 450 10^3/mcL Workflow SS Platelets LM Ql (Bld) Normal *NA* (11/17/24 9:13 AM) Invalid Interpretation Code Workflow SS Poikilocytosis LM Ql (Bld) 1+ *NA* (11/17/24 9:13 AM) Invalid Interpretation Code Workflow SS Polychromasia LM Ql (Bld) 1+ *NA* (11/17/24 9:13 AM) Invalid Interpretation Code Workflow SS Potassium [Moles/Vol] 3.6 mmol/L Normal 3.5 - 5.0 mEq/L ADM SS Protein [Mass/Vol] 7.0 G/dL Normal 5.7 - 8.2 G/dL ADM SS RBC (Bld) [#/Vol] 3.99 106/mcL Low 4.10 - 5.30 10^6/mcL Workflow SS Sodium [Moles/Vol] 143 mmol/L Normal 136 - 145 mEq/L ADM SS Stomatocytes LM Ql (Bld) 1+ *NA* (11/17/24 9:13 AM) Invalid Interpretation Code Workflow SS Toxic granules LM Ql (Bld) 1+ *NA* (11/17/24 9:13 AM) Invalid Interpretation Code Workflow SS Urea nitrogen [Mass/Vol] 6.0 mg/dL Low 8.0 - 22.0 mg/dL ADM SS Urea nitrogen/Creatinine [Mass ratio] 12.8 ratio Normal 10.0 - 22.0 ratio ADM SS WBC (Bld) [#/Vol] 14.0 103/mcL High 4.5 - 10.8 10^3/mcL Workflow SS .GFRon 11-03-2024 GFR/1.73 sq M.predicted among non-blacks MDRD (S/P/Bld) [Vol rate/Area] mL/min/{1.73_m2} Normal [facility] Comment on above: Result Comment: Stag es of Chronic Kidney Disease (CKD)Stage Description eGFR(ml/min/1.73 sq.m.)CKD 1 Normal kidney function or >=90 normal kindney function with possible kidney damage (ex. Proteinuria)CKD 2 Kidney damage with mild loss 60-89 of kidney functionCKD 3a Mild to moderate loss of kidney 45-59 functionCKD 3b Moderate to severe loss of 30-44 of kindey function CKD 4 Severe loss of kidney function 15-29CKD 5 Kidney failure <15Note: (go live 2024) the eGFR calculation was updated to the KD-EPI creatinine equation without a race factor to calculate theeGFR results. Performed By: #### C MP, MORPH, DIFF, GFR, CBC, ANEU ####[place] [address] .Manual Diffon 11-03-2024 Basophil %, Manual 1.0 % Normal 0.0-2.5 [facility] Comment on above: Performed By: #### C MP, MORPH, DIFF, GFR, CBC, ANEU ####[place] [address] Basophil, Abs Manual 0.1 10 3/mcL Normal 0.0-0.3 [facility] Comment on above: Performed By: #### C MP, MORPH, DIFF, GFR, CBC, ANEU ####[place] [address] Eosinophil %, Manual 0.0 % Normal 0.0-6.0 [facility] Comment on above: Performed By: #### C MP, MORPH, DIFF, GFR, CBC, ANEU ####[place] [address] Eosinophil, Abs Manual 0.0 10 3/mcL Normal 0.0-0.7 [facility] Comment on above: Performed By: #### C MP, MORPH, DIFF, GFR, CBC, ANEU ####[place] [address] Lymphocyte %, Manual 12.0 % Low 20.0-40.0 [facility] Comment on above: Performed By: #### C MP, MORPH, DIFF, GFR, CBC, ANEU ####[address] [address] Lymphocyte, Abs Manual 1.0 10 3/mcL Normal 0.9-4.3 [facility] Comment on above: Performed By: #### C MP, MORPH, DIFF, GFR, CBC, ANEU ####[place] [id number] Monocyte %, Manual 5.0 % Normal 2.0-13.0 [facility] Comment on above: Performed By: #### C MP, MORPH, DIFF, GFR, CBC, ANEU ####[address] [address] Monocyte, Abs Manual 0.4 10 3/mcL Normal 0.1-1.4 [facility] Comment on above: Performed By: #### C MP, MORPH, DIFF, GFR, CBC, ANEU ####[place] [id number] Neutrophil %, Manual 82.0 % High 50.0-75.0 [facility] Comment on above: Performed By: #### C MP, MORPH, DIFF, GFR, CBC, ANEU ####[place] [id number] Neutrophil, Abs Manual 7.1 10 3/mcL Normal 2.3-8.1 [facility] Comment on above: Performed By: #### C MP, MORPH, DIFF, GFR, CBC, ANEU ####[place] [address] Nucleated RBC 0.0 /100 WBC Normal [facility] Comment on above: Performed By: #### C MP, MORPH, DIFF, GFR, CBC, ANEU ####[place] [address] .Morphon 11-03-2024 Anisocytosis Ql (Bld) 2+ Normal [facility] Comment on above: Performed By: #### C MP, MORPH, DIFF, GFR, CBC, ANEU ####[place] [id number] Platelet Estimate Normal Normal [facility] Comment on above: Performed By: #### C MP, MORPH, DIFF, GFR, CBC, ANEU ####[place] [address] .NEUABSon 11-03-2024 Neutrophil, Absolute 6.3 10 3/mcL Normal 2.3-8.1 [facility] Comment on above: Performed By: #### C MP, MORPH, DIFF, GFR, CBC, ANEU ####[place] [address] CBCon 11-03-2024 Erythrocyte distribution width (RBC) [Ratio] 23.2 % High 11.5-15.5 [facility] Comment on above: Performed By: #### C MP, MORPH, DIFF, GFR, CBC, ANEU ####[place] [address] Hematocrit (Bld) [Volume fraction] 30.2 % Low 34.0-46.0 [facility] Comment on above: Performed By: #### C MP, MORPH, DIFF, GFR, CBC, ANEU ####[place] [address] Hgb 9.3 G/dL Low 12.0-16.0 [facility] Comment on above: Performed By: #### C MP, MORPH, DIFF, GFR, CBC, ANEU ####[place] [address] MCH (RBC) [Entitic mass] 22.7 pg Low 27.0-33.0 [facility] Comment on above: Performed By: #### C MP, MORPH, DIFF, GFR, CBC, ANEU ####[place] [address] MCHC 30.8 G/dL Low 32.0-36.0 [facility] Comment on above: Performed By: #### C MP, MORPH, DIFF, GFR, CBC, ANEU ####[place] [address] MCV (RBC) [Entitic vol] 73.7 fL Low 80.0-99.0 [facility] Comment on above: Performed By: #### C MP, MORPH, DIFF, GFR, CBC, ANEU ####[place] [address] Platelet 182 10 3/mcL Normal 150-450 [facility] Comment on above: Performed By: #### C MP, MORPH, DIFF, GFR, CBC, ANEU ####[place] [address] Platelet mean volume (Bld) [Entitic vol] 9.2 fL Normal 6.6-10.5 [facility] Comment on above: Performed By: #### C MP, MORPH, DIFF, GFR, CBC, ANEU ####[place] [address] RBC 4.10 10 6/mcL Normal 4.10-5.30 [facility] Comment on above: Performed By: #### C MP, MORPH, DIFF, GFR, CBC, ANEU ####[place] [address] WBC 8.6 10 3/mcL Normal 4.5-10.8 [facility] Comment on above: Performed By: #### C MP, MORPH, DIFF, GFR, CBC, ANEU ####[place] [address] CEAon 11-03-2024 CEA 239.8 ng/mL High 0.0-3.0 [facility] Comment on above: Result Comment: CEA Reference Range for SMOKERS: 0.0 - 5.0 ng/mL.Testing performed on the Cover IM analyzer usingdirect chemiluminesent technology. Patient resultsdetermined by assays using different manufacturers for methods may not be comparable. Performed By: #### C EA ####[place] [address] CMPon 11-03-2024 Albumin Level 3.5 G/dL Normal 3.2-4.8 [facility] Comment on above: Performed By: #### C MP, MORPH, DIFF, GFR, CBC, ANEU ####[place] [address] Albumin/Globulin [Mass ratio] 1.0 {ratio} Normal 0.9-1.6 [facility] Comment on above: Performed By: #### C MP, MORPH, DIFF, GFR, CBC, ANEU ####[place] [address] ALP [Catalytic activity/Vol] 127 U/L High 38-126 [facility] Comment on above: Performed By: #### C MP, MORPH, DIFF, GFR, CBC, ANEU ####[address] [address] ALT [Catalytic activity/Vol] 40 U/L Normal 10-49 [facility] Comment on above: Performed By: #### C MP, MORPH, DIFF, GFR, CBC, ANEU ####[place] [address] AST [Catalytic activity/Vol] 33 U/L Normal 8-34 [facility] Comment on above: Performed By: #### C MP, MORPH, DIFF, GFR, CBC, ANEU ####[place] [address] Bili Total 0.50 mg/dL Normal 0.20-1.20 [facility] Comment on above: Result Comment: Use of this assay is not recommended for patients undergoing treatment with eltrombopag due to the potential for falsely elevated results. Performed By: #### C MP, MORPH, DIFF, GFR, CBC, ANEU ####[place] [address] BUN/Creatinine Ratio 17.4 ratio Normal 10.0-22.0 [facility] Comment on above: Performed By: #### C MP, MORPH, DIFF, GFR, CBC, ANEU ####[place] [address] Calcium [Mass/Vol] 9.0 mg/dL Normal 8.7-10.4 [facility] Comment on above: Performed By: #### C MP, MORPH, DIFF, GFR, CBC, ANEU ####[place] [address] Chloride [Moles/Vol] 107 mmol/L Normal 98-110 [facility] Comment on above: Performed By: #### C MP, MORPH, DIFF, GFR, CBC, ANEU ####[place] [address] CO2 [Moles/Vol] 23 mmol/L Normal 22-32 [facility] Comment on above: Performed By: #### C MP, MORPH, DIFF, GFR, CBC, ANEU ####[place] [address] Creatinine [Mass/Vol] 0.46 mg/dL Low 0.50-1.20 [facility] Comment on above: Result Comment: Test ing performed on [employer] analyzer using enzymatic creatinine methodology. Performed By: #### C MP, MORPH, DIFF, GFR, CBC, ANEU ####[place] [address] Electrolyte Balance 12.0 mEq/L Normal 4.0-15.0 [facility] Comment on above: Performed By: #### C MP, MORPH, DIFF, GFR, CBC, ANEU ####[place] [address] Globulin 3.5 G/dL Normal 2.5-4.2 [facility] Comment on above: Performed By: #### C MP, MORPH, DIFF, GFR, CBC, ANEU ####[place] [address] Glucose [Mass/Vol] 100 mg/dL Normal 70-110 [facility] Comment on above: Performed By: #### C MP, MORPH, DIFF, GFR, CBC, ANEU ####[place] [address] Potassium [Moles/Vol] 3.8 mmol/L Normal 3.5-5.0 [facility] Comment on above: Performed By: #### C MP, MORPH, DIFF, GFR, CBC, ANEU ####[place] [address] Sodium [Moles/Vol] 142 mmol/L Normal 136-145 [facility] Comment on above: Performed By: #### C MP, MORPH, DIFF, GFR, CBC, ANEU ####[place] [address] Total Protein 7.0 G/dL Normal 5.7-8.2 [facility] Comment on above: Performed By: #### C MP, MORPH, DIFF, GFR, CBC, ANEU ####[id number] [place] [address] Urea nitrogen [Mass/Vol] 8.0 mg/dL Normal 8.0-22.0 [facility] Comment on above: Performed By: #### C MP, MORPH, DIFF, GFR, CBC, ANEU ####[id number] [place] [id number] LABORATORYOrdered By: SYSTEM SYSTEM on 11-03-2024 Albumin BCP dye [Mass/Vol] 3.5 G/dL Normal 3.2 - 4.8 G/dL ADM SS Albumin/Globulin [Mass ratio] 1.0 {ratio} Normal 0.9 - 1.6 ratio AH ADM SS ALP [Catalytic activity/Vol] 127 U/L High 38 - 126 U/L AH ADM SS ALT No additional P-5'-P [Catalytic activity/Vol] 40 U/L Normal 10 - 49 U/L ADM SS Anisocytosis Ql (Bld) 2+ *NA* (11/03/24 8:55 AM) Invalid Interpretation Code AH Workflow SS AST [Catalytic activity/Vol] 33 U/L Normal 8 - 34 U/L ADM SS Basophils (Bld) [#/Vol] 0.1 103/mcL Normal 0.0 - 0.3 10^3/mcL AH Workflow SS Basophils/100 WBC (Bld) 1.0 % Normal 0.0 - 2.5 % AH Workflow SS Bilirubin [Mass/Vol] 0.50 mg/dL Normal 0.20 - 1.20 mg/dL ADM SS Comment on above: Interpretive Data: U se of this assay is not recommended for patients undergoing treatment with eltrombopag due to the potential for falsely elevated results. Calcium [Mass/Vol] 9.0 mg/dL Normal 8.7 - 10. 4 mg/dL ADM SS Carcinoembryonic Ag [Mass/Vol] 239.8 ng/mL High 0.0 - 3.0 ng/mL AH ADM SS Comment on above: Interpretive Data: C EA Reference Range for SMOKERS: 0.0 - 5.0 ng/mL. Testing performed on the Cover IM analyzer using direct chemiluminesent technology. Patient results determined by assays using different manufacturers for methods may not be comparable. Chloride [Moles/Vol] 107 mmol/L Normal 98 - 11 0 mEq/L AH ADM SS CO2 [Moles/Vol] 23 mmol/L Normal 22 - 32 mEq/L AH ADM SS Creatinine [Mass/Vol] 0.46 mg/dL Low 0.50 - 1.20 mg/dL AH ADM SS Comment on above: Interpretive Data: T esting performed on [employer] analyzer using enzymatic creatinine methodology. Electrolyte Balance 12.0 mEq/L Normal 4.0 - 15 .0 mEq/L AH ADM SS Eosinophils (Bld) [#/Vol] 0.0 103/mcL Normal 0.0 - 0.7 10^3/mcL AH Workflow SS Eosinophils/100 WBC (Bld) 0.0 % Normal 0.0 - 6.0 % Workflow SS Erythrocyte distribution width (RBC) [Ratio] 23.2 % High 11.5 - 15.5 % Workflow SS Estimated Glomerular Filtration Rate ml/min/1.73sqm Invalid Interpretation Code ADM SS Comment on above: Interpretive Data: Stages of Chronic Kidney Disease (CKD) Stage Description eGFR(ml/min/1.73 sq.m.) CKD 1 Normal kidney function or >=90 normal kindney function with possible kidney damage (ex. Proteinuria) CKD 2 Kidney damage with mild loss 60-89 of kidney function CKD 3a Mild to moderate loss of kidney 45-59 function CKD 3b Moderate to severe loss of 30-44 of kindey function CKD 4 Severe loss of kidney function 15-29 CKD 5 Kidney failure <15 Note: (go live 2024) the eGFR calculation was updated to the 2020 CKD-EPI creatinine equation without a race factor to calculate the eGFR results. Globulin 3.5 G/dL Normal 2.5 - 4.2 G/dL AH ADM SS Glucose [Mass/Vol] 100 mg/dL Normal 70 - 110 mg/dL ADM SS Hematocrit (Bld) [Volume fraction] 30.2 % Low 34.0 - 46.0 % Workflow SS Hemoglobin (Bld) [Mass/Vol] 9.3 G/dL Low 12.0 - 16.0 G/dL AH Workflow SS Lymphocytes (Bld) [#/Vol] 1.0 103/mcL Normal 0.9 - 4.3 10^3/mcL AH Workflow SS Lymphocytes/100 WBC (Bld) 12.0 % Low 20.0 - 40.0 % AH Workflow SS MCH (RBC) [Entitic mass] 22.7 pg Low 27.0 - 33.0 pg AH Workflow SS MCHC 30.8 G/dL Low 32.0 - 36.0 G/dL AH Workflow SS MCV (RBC) [Entitic vol] 73.7 fL Low 80.0 - 99.0 fL AH Workflow SS Monocytes (Bld) [#/Vol] 0.4 103/mcL Normal 0.1 - 1.4 10^3/mcL AH Workflow SS Monocytes/100 WBC (Bld) 5.0 % Normal 2.0 - 13.0 % AH Workflow SS Neutrophils (Bld) [#/Vol] 6.3 103/mcL Normal 2.3 - 8.1 10^3/mcL AH Workflow SS Neutrophils (Bld) [#/Vol] 7.1 103/mcL Normal 2.3 - 8.1 10^3/mcL AH Workflow SS Neutrophils/100 WBC (Bld) 82.0 % High 50.0 - 75.0 % AH Workflow SS Nucleated RBC 0.0 /100 WBC Invalid Interpretation Code Workflow SS Platelet mean volume (Bld) [Entitic vol] 9.2 fL Normal 6.6 - 10.5 fL AH Workflow SS Platelets (Bld) [#/Vol] 182 103/mcL Normal 150 - 450 10^3/mcL AH Workflow SS Platelets LM Ql (Bld) Normal *NA* (11/03/24 8:55 AM) Invalid Interpretation Code Workflow SS Potassium [Moles/Vol] 3.8 mmol/L Normal 3.5 - 5.0 mEq/L ADM SS Protein [Mass/Vol] 7.0 G/dL Normal 5.7 - 8.2 G/dL ADM SS RBC (Bld) [#/Vol] 4.10 106/mcL Normal 4.10 - 5.30 10^6/mcL AH Workflow SS Sodium [Moles/Vol] 142 mmol/L Normal 136 - 145 mEq/L ADM SS Urea nitrogen [Mass/Vol] 8.0 mg/dL Normal 8.0 - 22.0 mg/dL ADM SS Urea nitrogen/Creatinine [Mass ratio] 17.4 ratio Normal 10.0 - 22.0 ratio AH ADM SS WBC (Bld) [#/Vol] 8.6 103/mcL Normal 4.5 - 10.8 10^3/mcL AH Workflow SS CT THORAX W/ CONTRASTon CT THORAX W/ CONTRAST Normal [facility] CT ABDOMEN/PELVIS W/CONTRAST on 10-29-2024 CT ABDOMEN/PELVIS W/CONTRAST Normal [facility] .Auto Diffon 10-20-2024 Basophil, Absolute 0.1 10 3/mcL Normal 0.0-0.3 [facility] Comment on above: Performed By: #### C BC, ANEU, CMP, GFR, ADIFF ####[address] [address] Basophils/100 WBC (Bld) 0.9 % Normal 0.0-2.5 [facility] Comment on above: Performed By: #### C BC, ANEU, CMP, GFR, ADIFF ####[address] [address] Eosinophil, Absolute 0.1 10 3/mcL Normal 0.0-0.7 [facility] Comment on above: Performed By: #### C BC, ANEU, CMP, GFR, ADIFF ####[address] [address] Eosinophils/100 WBC (Bld) 0.5 % Normal 0.0-6.0 [facility] Comment on above: Performed By: #### C BC, ANEU, CMP, GFR, ADIFF ####[address] [address] Lymphocyte, Absolute 2.3 10 3/mcL Normal 0.9-4.3 [facility] Comment on above: Performed By: #### C BC, ANEU, CMP, GFR, ADIFF ####[address] [address] Lymphocytes/100 WBC (Bld) 19.5 % Low 20.0-40.0 [facility] Comment on above: Performed By: #### C BC, ANEU, CMP, GFR, ADIFF ####[address] [address] Monocyte, Absolute 0.7 10 3/mcL Normal 0.1-1.4 [facility] Comment on above: Performed By: #### C BC, ANEU, CMP, GFR, ADIFF ####[place] [id number] [address] [place] [address] Monocytes/100 WBC (Bld) 5.7 % Normal 2.0-13.0 [facility] Comment on above: Performed By: #### C BC, ANEU, CMP, GFR, ADIFF ####[address] [address] Neutrophils/100 WBC (Bld) 73.4 % Normal 50.0-75.0 [facility] Comment on above: Performed By: #### C BC, ANEU, CMP, GFR, ADIFF ####[address] [address] .GFRon 10-20-2024 Estimated Glomerular Filtration Rate 120 ml/min/1.73sqm Normal [facility] Comment on above: Result Comment: Stag es of Chronic Kidney Disease (CKD)Stage Description eGFR(ml/min/1.73 sq.m.)CKD 1 Normal kidney function or >=90 normal kindney function with possible kidney damage (ex. Proteinuria)CKD 2 Kidney damage with mild loss 60-89 of kidney functionCKD 3a Mild to moderate loss of kidney 45-59 functionCKD 3b Moderate to severe loss of 30-44 of kindey function CKD 4 Severe loss of kidney function 15-29CKD 5 Kidney failure <15Note: (go live 2024) the eGFR calculation was updated to the KD-EPI creatinine equation without a race factor to calculate theeGFR results. Performed By: #### C BC, ANEU, CMP, GFR, ADIFF ####[address] [address] .NEUABSon 10-20-2024 Neutrophil, Absolute 8.5 10 3/mcL High 2.3-8.1 [facility] Comment on above: Performed By: #### C BC, ANEU, CMP, GFR, ADIFF ####[address] [address] CBCon 10-20-2024 Erythrocyte distribution width (RBC) [Ratio] 22.9 % High 11.5-15.5 [facility] Comment on above: Performed By: #### C BC, ANEU, CMP, GFR, ADIFF ####[place] [address] Hematocrit (Bld) [Volume fraction] 30.3 % Low 34.0-46.0 [facility] Comment on above: Performed By: #### C BC, ANEU, CMP, GFR, ADIFF ####[place] [address] Hgb 9.2 G/dL Low 12.0-16.0 [facility] Comment on above: Performed By: #### C BC, ANEU, CMP, GFR, ADIFF ####[place] [address] MCH (RBC) [Entitic mass] 22.5 pg Low 27.0-33.0 [facility] Comment on above: Performed By: #### C BC, ANEU, CMP, GFR, ADIFF ####[place] [address] MCHC 30.5 G/dL Low 32.0-36.0 [facility] Comment on above: Performed By: #### C BC, ANEU, CMP, GFR, ADIFF ####[place] [address] MCV (RBC) [Entitic vol] 73.9 fL Low 80.0-99.0 [facility] Comment on above: Performed By: #### C BC, ANEU, CMP, GFR, ADIFF ####[place] [address] Platelet 231 10 3/mcL Normal 150-450 [facility] Comment on above: Performed By: #### C BC, ANEU, CMP, GFR, ADIFF ####[place] [address] Platelet mean volume (Bld) [Entitic vol] 9.5 fL Normal 6.6-10.5 [facility] Comment on above: Performed By: #### C BC, ANEU, CMP, GFR, ADIFF ####[place] [address] RBC 4.10 10 6/mcL Normal 4.10-5.30 [facility] Comment on above: Performed By: #### C BC, ANEU, CMP, GFR, ADIFF ####[address] [address] WBC 11.6 10 3/mcL High 4.5-10.8 [facility] Comment on above: Performed By: #### C BC, ANEU, CMP, GFR, ADIFF ####[place] [address] CEAon 10-20-2024 CEA 431.9 ng/mL High 0.0-3.0 [facility] Comment on above: Result Comment: CEA Reference Range for SMOKERS: 0.0 - 5.0 ng/mL.Testing performed on the Atempo analyzer usingdirect chemiluminesent technology. Patient resultsdetermined by assays using different manufacturers for methods may not be comparable. Performed By: #### C EA ####[place] [address] CMPon 10-20-2024 Albumin Level 3.4 G/dL Normal 3.2-4.8 [facility] Comment on above: Performed By: #### C BC, ANEU, CMP, GFR, ADIFF ####[place] [address] Albumin/Globulin [Mass ratio] 1.0 {ratio} Normal 0.9-1.6 [facility] Comment on above: Performed By: #### C BC, ANEU, CMP, GFR, ADIFF ####[place] [address] ALP [Catalytic activity/Vol] 139 U/L High 38-126 [facility] Comment on above: Performed By: #### C BC, ANEU, CMP, GFR, ADIFF ####[address] [address] ALT [Catalytic activity/Vol] 23 U/L Normal 10-49 [facility] Comment on above: Performed By: #### C BC, ANEU, CMP, GFR, ADIFF ####[address] [address] AST [Catalytic activity/Vol] 30 U/L Normal 8-34 [facility] Comment on above: Performed By: #### C BC, ANEU, CMP, GFR, ADIFF ####[place] [address] Bili Total 0.40 mg/dL Normal 0.20-1.20 [facility] Comment on above: Result Comment: Use of this assay is not recommended for patients undergoing treatment with eltrombopag due to the potential for falsely elevated results. Performed By: #### C BC, ANEU, CMP, GFR, ADIFF ####[place] [address] BUN/Creatinine Ratio 14.9 ratio Normal 10.0-22.0 [facility] Comment on above: Performed By: #### C BC, ANEU, CMP, GFR, ADIFF ####[place] [address] Calcium [Mass/Vol] 9.3 mg/dL Normal 8.7-10.4 [facility] Comment on above: Performed By: #### C BC, ANEU, CMP, GFR, ADIFF ####[place] [address] Chloride [Moles/Vol] 109 mmol/L Normal 98-110 [facility] Comment on above: Performed By: #### C BC, ANEU, CMP, GFR, ADIFF ####[place] [address] CO2 [Moles/Vol] 27 mmol/L Normal 22-32 [facility] Comment on above: Performed By: #### C BC, ANEU, CMP, GFR, ADIFF ####[place] [address] Creatinine [Mass/Vol] 0.47 mg/dL Low 0.50-1.20 [facility] Comment on above: Result Comment: Test ing performed on [employer] analyzer using enzymatic creatinine methodology. Performed By: #### C BC, ANEU, CMP, GFR, ADIFF ####[place] [address] Electrolyte Balance 5.0 mEq/L Normal 4.0-15.0 [facility] Comment on above: Performed By: #### C BC, ANEU, CMP, GFR, ADIFF ####[place] [id number] [place] [address] Globulin 3.4 G/dL Normal 1.5-3.8 [facility] Comment on above: Performed By: #### C BC, ANEU, CMP, GFR, ADIFF ####[place] [id number] [place] [address] Glucose [Mass/Vol] 96 mg/dL Normal 70-110 [facility] Comment on above: Performed By: #### C BC, ANEU, CMP, GFR, ADIFF ####[place] [id number] [place] [address] Potassium [Moles/Vol] 3.9 mmol/L Normal 3.5-5.0 [facility] Comment on above: Performed By: #### C BC, ANEU, CMP, GFR, ADIFF ####[address] [address] Sodium [Moles/Vol] 141 mmol/L Normal 136-145 [facility] Comment on above: Performed By: #### C BC, ANEU, CMP, GFR, ADIFF ####[address] [address] Total Protein 6.8 G/dL Normal 5.7-8.2 [facility] Comment on above: Performed By: #### C BC, ANEU, CMP, GFR, ADIFF ####[address] [address] Urea nitrogen [Mass/Vol] 7.0 mg/dL Low 8.0-22.0 [facility] Comment on above: Performed By: #### C BC, ANEU, CMP, GFR, ADIFF ####[address] [address] LABORATORYOrdered By: SYSTEM SYSTEM on 10-20-2024 Carcinoembryonic Ag [Mass/Vol] 431.9 ng/mL High 0.0 - 3.0 ng/mL ADM SS Comment on above: Interpretive Data: C EA Reference Range for SMOKERS: 0.0 - 5.0 ng/mL. Testing performed on the [employer] analyzer using direct chemiluminesent technology. Patient results determined by assays using different manufacturers for methods may not be comparable. Albumin BCP dye [Mass/Vol] 3.4 G/dL Normal 3.2 - 4.8 G/dL ADM SS Albumin/Globulin [Mass ratio] 1.0 {ratio} Normal 0.9 - 1.6 ratio ADM SS ALP [Catalytic activity/Vol] 139 U/L High 38 - 126 U/L ADM SS ALT No additional P-5'-P [Catalytic activity/Vol] 23 U/L Normal 10 - 49 U/L ADM SS AST [Catalytic activity/Vol] 30 U/L Normal 8 - 34 U/L ADM SS Basophils (Bld) [#/Vol] 0.1 103/mcL Normal 0.0 - 0.3 10^3/mcL Workflow SS Basophils/100 WBC (Bld) 0.9 % Normal 0.0 - 2.5 % Workflow SS Bilirubin [Mass/Vol] 0.40 mg/dL Normal 0.20 - 1.20 mg/dL ADM SS Comment on above: Interpretive Data: U se of this assay is not recommended for patients undergoing treatment with eltrombopag due to the potential for falsely elevated results. Calcium [Mass/Vol] 9.3 mg/dL Normal 8.7 - 10. 4 mg/dL ADM SS Chloride [Moles/Vol] 109 mmol/L Normal 98 - 11 0 mEq/L ADM SS CO2 [Moles/Vol] 27 mmol/L Normal 22 - 32 mEq/L ADM SS Creatinine [Mass/Vol] 0.47 mg/dL Low 0.50 - 1.20 mg/dL ADM SS Comment on above: Interpretive Data: T esting performed on [employer] analyzer using enzymatic creatinine methodology. Electrolyte Balance 5.0 mEq/L Normal 4.0 - 15 .0 mEq/L ADM SS Eosinophils (Bld) [#/Vol] 0.1 103/mcL Normal 0.0 - 0.7 10^3/mcL Workflow SS Eosinophils/100 WBC (Bld) 0.5 % Normal 0.0 - 6.0 % Workflow SS Erythrocyte distribution width (RBC) [Ratio] 22.9 % High 11.5 - 15.5 % Workflow SS Estimated Glomerular Filtration Rate 120 ml/min/1.73sqm Invalid Interpretation Code ADM SS Comment on above: Interpretive Data: Stages of Chronic Kidney Disease (CKD) Stage Description eGFR(ml/min/1.73 sq.m.) CKD 1 Normal kidney function or >=90 normal kindney function with possible kidney damage (ex. Proteinuria) CKD 2 Kidney damage with mild loss 60-89 of kidney function CKD 3a Mild to moderate loss of kidney 45-59 function CKD 3b Moderate to severe loss of 30-44 of kindey function CKD 4 Severe loss of kidney function 15-29 CKD 5 Kidney failure <15 Note: (go live 2024) the eGFR calculation was updated to the 2020 CKD-EPI creatinine equation without a race factor to calculate the eGFR results. Globulin 3.4 G/dL Normal 1.5 - 3.8 G/dL ADM SS Glucose [Mass/Vol] 96 mg/dL Normal 70 - 110 mg/dL ADM SS Hematocrit (Bld) [Volume fraction] 30.3 % Low 34.0 - 46.0 % AH Workflow SS Hemoglobin (Bld) [Mass/Vol] 9.2 G/dL Low 12.0 - 16.0 G/dL Workflow SS Lymphocytes (Bld) [#/Vol] 2.3 103/mcL Normal 0.9 - 4.3 10^3/mcL AH Workflow SS Lymphocytes/100 WBC (Bld) 19.5 % Low 20.0 - 40.0 % AH Workflow SS MCH (RBC) [Entitic mass] 22.5 pg Low 27.0 - 33.0 pg AH Workflow SS MCHC 30.5 G/dL Low 32.0 - 36.0 G/dL AH Workflow SS MCV (RBC) [Entitic vol] 73.9 fL Low 80.0 - 99.0 fL AH Workflow SS Monocytes (Bld) [#/Vol] 0.7 103/mcL Normal 0.1 - 1.4 10^3/mcL AH Workflow SS Monocytes/100 WBC (Bld) 5.7 % Normal 2.0 - 13.0 % AH Workflow SS Neutrophils (Bld) [#/Vol] 8.5 103/mcL High 2.3 - 8.1 10^3/mcL AH Workflow SS Neutrophils/100 WBC (Bld) 73.4 % Normal 50.0 - 75.0 % Workflow SS Platelet mean volume (Bld) [Entitic vol] 9.5 fL Normal 6.6 - 10.5 fL Workflow SS Platelets (Bld) [#/Vol] 231 103/mcL Normal 150 - 450 10^3/mcL Workflow SS Potassium [Moles/Vol] 3.9 mmol/L Normal 3.5 - 5.0 mEq/L ADM SS Protein [Mass/Vol] 6.8 G/dL Normal 5.7 - 8.2 G/dL ADM SS RBC (Bld) [#/Vol] 4.10 106/mcL Normal 4.10 - 5.30 10^6/mcL Workflow SS Sodium [Moles/Vol] 141 mmol/L Normal 136 - 145 mEq/L ADM SS Urea nitrogen [Mass/Vol] 7.0 mg/dL Low 8.0 - 22.0 mg/dL ADM SS Urea nitrogen/Creatinine [Mass ratio] 14.9 ratio Normal 10.0 - 22.0 ratio ADM SS WBC (Bld) [#/Vol] 11.6 103/mcL High 4.5 - 10.8 10^3/mcL Workflow SS .Auto Diffon 10-06-2024 Basophil, Absolute 0.0 10 3/mcL Normal 0.0-0.3 [facility] Comment on above: Performed By: #### A DIFF, CMP, ANEU, GFR, CBC ####[address] [address] Basophils/100 WBC (Bld) 0.2 % Normal 0.0-2.5 [facility] Comment on above: Performed By: #### A DIFF, CMP, ANEU, GFR, CBC ####[address] [address] Eosinophil, Absolute 0.0 10 3/mcL Normal 0.0-0.7 [facility] Comment on above: Performed By: #### A DIFF, CMP, ANEU, GFR, CBC ####[address] [address] Eosinophils/100 WBC (Bld) 0.4 % Normal 0.0-6.0 [facility] Comment on above: Performed By: #### A DIFF, CMP, ANEU, GFR, CBC ####[address] [address] Lymphocyte, Absolute 1.9 10 3/mcL Normal 0.9-4.3 [facility] Comment on above: Performed By: #### A DIFF, CMP, ANEU, GFR, CBC ####[address] [address] Lymphocytes/100 WBC (Bld) 20.0 % Normal 20.0-40.0 [facility] Comment on above: Performed By: #### A DIFF, CMP, ANEU, GFR, CBC ####[address] [address] Monocyte, Absolute 0.4 10 3/mcL Normal 0.1-1.4 [facility] Comment on above: Performed By: #### A DIFF, CMP, ANEU, GFR, CBC ####[address] [address] Monocytes/100 WBC (Bld) 4.6 % Normal 2.0-13.0 [facility] Comment on above: Performed By: #### A DIFF, CMP, ANEU, GFR, CBC ####[address] [address] Neutrophils/100 WBC (Bld) 74.8 % Normal 50.0-75.0 [facility] Comment on above: Performed By: #### A DIFF, CMP, ANEU, GFR, CBC ####[address] [address] .GFRon 10-06-2024 Estimated Glomerular Filtration Rate 116 ml/min/1.73sqm Normal [facility] Comment on above: Result Comment: Stag es of Chronic Kidney Disease (CKD)Stage Description eGFR(ml/min/1.73 sq.m.)CKD 1 Normal kidney function or >=90 normal kindney function with possible kidney damage (ex. Proteinuria)CKD 2 Kidney damage with mild loss 60-89 of kidney functionCKD 3a Mild to moderate loss of kidney 45-59 functionCKD 3b Moderate to severe loss of 30-44 of kindey function CKD 4 Severe loss of kidney function 15-29CKD 5 Kidney failure <15Note: (go live 2024) the eGFR calculation was updated to the KD-EPI creatinine equation without a race factor to calculate theeGFR results. Performed By: #### A DIFF, CMP, ANEU, GFR, CBC ####[place] [address] .NEUABSon 10-06-2024 Neutrophil, Absolute 7.2 10 3/mcL Normal 2.3-8.1 [facility] Comment on above: Performed By: #### A DIFF, CMP, ANEU, GFR, CBC ####[place] [address] CBCon 10-06-2024 Erythrocyte distribution width (RBC) [Ratio] 22.5 % High 11.5-15.5 [facility] Comment on above: Performed By: #### A DIFF, CMP, ANEU, GFR, CBC ####[place] [address] Hematocrit (Bld) [Volume fraction] 30.6 % Low 34.0-46.0 [facility] Comment on above: Performed By: #### A DIFF, CMP, ANEU, GFR, CBC ####[place] [address] Hgb 9.2 G/dL Low 12.0-16.0 [facility] Comment on above: Performed By: #### A DIFF, CMP, ANEU, GFR, CBC ####[place] [address] MCH (RBC) [Entitic mass] 22.2 pg Low 27.0-33.0 [facility] Comment on above: Performed By: #### A DIFF, CMP, ANEU, GFR, CBC ####[place] [address] MCHC 30.1 G/dL Low 32.0-36.0 [facility] Comment on above: Performed By: #### A DIFF, CMP, ANEU, GFR, CBC ####[place] [address] MCV (RBC) [Entitic vol] 73.6 fL Low 80.0-99.0 [facility] Comment on above: Performed By: #### A DIFF, CMP, ANEU, GFR, CBC ####[place] [address] Platelet 244 10 3/mcL Normal 150-450 [facility] Comment on above: Performed By: #### A DIFF, CMP, ANEU, GFR, CBC ####[place] [address] Platelet mean volume (Bld) [Entitic vol] 9.2 fL Normal 6.6-10.5 [facility] Comment on above: Performed By: #### A DIFF, CMP, ANEU, GFR, CBC ####[place] [address] RBC 4.15 10 6/mcL Normal 4.10-5.30 [facility] Comment on above: Performed By: #### A DIFF, CMP, ANEU, GFR, CBC ####[place] [address] WBC 9.6 10 3/mcL Normal 4.5-10.8 [facility] Comment on above: Performed By: #### A DIFF, CMP, ANEU, GFR, CBC ####[place] [address] CMPon 10-06-2024 Albumin Level 3.3 G/dL Normal 3.2-4.8 [facility] Comment on above: Performed By: #### A DIFF, CMP, ANEU, GFR, CBC ####[place] [address] Albumin/Globulin [Mass ratio] 0.8 {ratio} Low 0.9-1.6 [facility] Comment on above: Performed By: #### A DIFF, CMP, ANEU, GFR, CBC ####[place] [address] ALP [Catalytic activity/Vol] 262 U/L High 38-126 [facility] Comment on above: Performed By: #### A DIFF, CMP, ANEU, GFR, CBC ####[place] [address] ALT [Catalytic activity/Vol] 113 U/L High 10-49 [facility] Comment on above: Performed By: #### A DIFF, CMP, ANEU, GFR, CBC ####[place] [address] AST [Catalytic activity/Vol] 44 U/L High 8-34 [facility] Comment on above: Performed By: #### A DIFF, CMP, ANEU, GFR, CBC ####[address] [address] Bili Total 0.50 mg/dL Normal 0.20-1.20 [facility] Comment on above: Result Comment: Use of this assay is not recommended for patients undergoing treatment with eltrombopag due to the potential for falsely elevated results. Performed By: #### A DIFF, CMP, ANEU, GFR, CBC ####[address] [address] BUN/Creatinine Ratio 11.1 ratio Normal 10.0-22.0 [facility] Comment on above: Performed By: #### A DIFF, CMP, ANEU, GFR, CBC ####[address] [address] Calcium [Mass/Vol] 9.5 mg/dL Normal 8.7-10.4 [facility] Comment on above: Performed By: #### A DIFF, CMP, ANEU, GFR, CBC ####[address] [address] Chloride [Moles/Vol] 104 mmol/L Normal 98-110 [facility] Comment on above: Performed By: #### A DIFF, CMP, ANEU, GFR, CBC ####[address] [address] CO2 [Moles/Vol] 30 mmol/L Normal 22-32 [facility] Comment on above: Performed By: #### A DIFF, CMP, ANEU, GFR, CBC ####[address] [address] Creatinine [Mass/Vol] 0.54 mg/dL Normal 0.50-1.20 [facility] Comment on above: Result Comment: Test ing performed on [employer] analyzer using enzymatic creatinine methodology. Performed By: #### A DIFF, CMP, ANEU, GFR, CBC ####[address] [address] Electrolyte Balance 7.0 mEq/L Normal 4.0-15.0 [facility] Comment on above: Performed By: #### A DIFF, CMP, ANEU, GFR, CBC ####[address] [address] Globulin 3.9 G/dL High 1.5-3.8 [facility] Comment on above: Performed By: #### A DIFF, CMP, ANEU, GFR, CBC ####[address] [address] Glucose [Mass/Vol] 82 mg/dL Normal 70-110 [facility] Comment on above: Performed By: #### A DIFF, CMP, ANEU, GFR, CBC ####[address] [address] Potassium [Moles/Vol] 3.5 mmol/L Normal 3.5-5.0 [facility] Comment on above: Performed By: #### A DIFF, CMP, ANEU, GFR, CBC ####[address] [address] Sodium [Moles/Vol] 141 mmol/L Normal 136-145 [facility] Comment on above: Performed By: #### A DIFF, CMP, ANEU, GFR, CBC ####[address] [address] Total Protein 7.2 G/dL Normal 5.7-8.2 [facility] Comment on above: Performed By: #### A DIFF, CMP, ANEU, GFR, CBC ####[address] [address] Urea nitrogen [Mass/Vol] 6.0 mg/dL Low 8.0-22.0 [facility] Comment on above: Performed By: #### A DIFF, CMP, ANEU, GFR, CBC ####[address] [address] LABORATORYOrdered By: SYSTEM SYSTEM on 10-06-2024 Albumin BCP dye [Mass/Vol] 3.3 G/dL Normal 3.2 - 4.8 G/dL ADM SS Albumin/Globulin [Mass ratio] 0.8 {ratio} Low 0.9 - 1.6 ratio AH ADM SS ALP [Catalytic activity/Vol] 262 U/L High 38 - 126 U/L AH ADM SS ALT No additional P-5'-P [Catalytic activity/Vol] 113 U/L High 10 - 49 U/L AH ADM SS AST [Catalytic activity/Vol] 44 U/L High 8 - 34 U/L AH ADM SS Basophils (Bld) [#/Vol] 0.0 103/mcL Normal 0.0 - 0.3 10^3/mcL AH Workflow SS Basophils/100 WBC (Bld) 0.2 % Normal 0.0 - 2.5 % Workflow SS Bilirubin [Mass/Vol] 0.50 mg/dL Normal 0.20 - 1.20 mg/dL ADM SS Comment on above: Interpretive Data: U se of this assay is not recommended for patients undergoing treatment with eltrombopag due to the potential for falsely elevated results. Calcium [Mass/Vol] 9.5 mg/dL Normal 8.7 - 10. 4 mg/dL ADM SS Chloride [Moles/Vol] 104 mmol/L Normal 98 - 11 0 mEq/L ADM SS CO2 [Moles/Vol] 30 mmol/L Normal 22 - 32 mEq/L ADM SS Creatinine [Mass/Vol] 0.54 mg/dL Normal 0.50 - 1.20 mg/dL ADM SS Comment on above: Interpretive Data: T esting performed on [employer] analyzer using enzymatic creatinine methodology. Electrolyte Balance 7.0 mEq/L Normal 4.0 - 15 .0 mEq/L ADM SS Eosinophils (Bld) [#/Vol] 0.0 103/mcL Normal 0.0 - 0.7 10^3/mcL Workflow SS Eosinophils/100 WBC (Bld) 0.4 % Normal 0.0 - 6.0 % Workflow SS Erythrocyte distribution width (RBC) [Ratio] 22.5 % High 11.5 - 15.5 % Workflow SS Estimated Glomerular Filtration Rate 116 ml/min/1.73sqm Invalid Interpretation Code ADM SS Comment on above: Interpretive Data: Stages of Chronic Kidney Disease (CKD) Stage Description eGFR(ml/min/1.73 sq.m.) CKD 1 Normal kidney function or >=90 normal kindney function with possible kidney damage (ex. Proteinuria) CKD 2 Kidney damage with mild loss 60-89 of kidney function CKD 3a Mild to moderate loss of kidney 45-59 function CKD 3b Moderate to severe loss of 30-44 of kindey function CKD 4 Severe loss of kidney function 15-29 CKD 5 Kidney failure <15 Note: (go live 2024) the eGFR calculation was updated to the 2020 CKD-EPI creatinine equation without a race factor to calculate the eGFR results. Globulin 3.9 G/dL High 1.5 - 3.8 G/dL ADM SS Glucose [Mass/Vol] 82 mg/dL Normal 70 - 110 mg/dL AH ADM SS Hematocrit (Bld) [Volume fraction] 30.6 % Low 34.0 - 46.0 % AH Workflow SS Hemoglobin (Bld) [Mass/Vol] 9.2 G/dL Low 12.0 - 16.0 G/dL AH Workflow SS Lymphocytes (Bld) [#/Vol] 1.9 103/mcL Normal 0.9 - 4.3 10^3/mcL AH Workflow SS Lymphocytes/100 WBC (Bld) 20.0 % Normal 20.0 - 40.0 % AH Workflow SS MCH (RBC) [Entitic mass] 22.2 pg Low 27.0 - 33.0 pg AH Workflow SS MCHC 30.1 G/dL Low 32.0 - 36.0 G/dL AH Workflow SS MCV (RBC) [Entitic vol] 73.6 fL Low 80.0 - 99.0 fL AH Workflow SS Monocytes (Bld) [#/Vol] 0.4 103/mcL Normal 0.1 - 1.4 10^3/mcL AH Workflow SS Monocytes/100 WBC (Bld) 4.6 % Normal 2.0 - 13.0 % AH Workflow SS Neutrophils (Bld) [#/Vol] 7.2 103/mcL Normal 2.3 - 8.1 10^3/mcL AH Workflow SS Neutrophils/100 WBC (Bld) 74.8 % Normal 50.0 - 75.0 % AH Workflow SS Platelet mean volume (Bld) [Entitic vol] 9.2 fL Normal 6.6 - 10.5 fL AH Workflow SS Platelets (Bld) [#/Vol] 244 103/mcL Normal 150 - 450 10^3/mcL AH Workflow SS Potassium [Moles/Vol] 3.5 mmol/L Normal 3.5 - 5.0 mEq/L ADM SS Protein [Mass/Vol] 7.2 G/dL Normal 5.7 - 8.2 G/dL AH ADM SS RBC (Bld) [#/Vol] 4.15 106/mcL Normal 4.10 - 5.30 10^6/mcL AH Workflow SS Sodium [Moles/Vol] 141 mmol/L Normal 136 - 145 mEq/L AH ADM SS Urea nitrogen [Mass/Vol] 6.0 mg/dL Low 8.0 - 22.0 mg/dL AH ADM SS Urea nitrogen/Creatinine [Mass ratio] 11.1 ratio Normal 10.0 - 22.0 ratio AH ADM SS WBC (Bld) [#/Vol] 9.6 103/mcL Normal 4.5 - 10.8 10^3/mcL AH Workflow SS IR DRAINAGE CATH INJECTION F OR EVALon 10-04-2024 IR DRAINAGE CATH INJECTION FOR EVAL Normal [facility] .Auto Diffon 10-01-2024 Basophil, Absolute 0.0 10 3/mcL Normal 0.0-0.3 [facility] Comment on above: Performed By: #### A KRISTI, CBC, ADIFF ####[address] [address] Basophils/100 WBC (Bld) 0.3 % Normal 0.0-2.5 [facility] Comment on above: Performed By: #### A KRISTI, CBC, ADIFF ####[address] [address] Eosinophil, Absolute 0.0 10 3/mcL Normal 0.0-0.7 [facility] Comment on above: Performed By: #### A KRISTI, CBC, ADIFF ####[address] [address] Eosinophils/100 WBC (Bld) 0.2 % Normal 0.0-6.0 [facility] Comment on above: Performed By: #### A KRISTI, CBC, ADIFF ####[address] [address] Lymphocyte, Absolute 1.1 10 3/mcL Normal 0.9-4.3 [facility] Comment on above: Performed By: #### A KRISTI, CBC, ADIFF ####[address] [address] Lymphocytes/100 WBC (Bld) 8.3 % Low 20.0-40.0 [facility] Comment on above: Performed By: #### A KRISTI, CBC, ADIFF ####[place] [address] Monocyte, Absolute 0.9 10 3/mcL Normal 0.1-1.4 [facility] Comment on above: Performed By: #### A KRISTI, CBC, ADIFF ####[address] [address] Monocytes/100 WBC (Bld) 6.7 % Normal 2.0-13.0 [facility] Comment on above: Performed By: #### A KRISTI, CBC, ADIFF ####[place] [address] Neutrophils/100 WBC (Bld) 84.5 % High 50.0-75.0 [facility] Comment on above: Performed By: #### A KRISTI, CBC, ADIFF ####[place] [address] .NEUABSon 10-01-2024 Neutrophil, Absolute 11.3 10 3/mcL High 2.3-8.1 [facility] Comment on above: Performed By: #### A KRISTI, CBC, ADIFF ####[place] [address] CBCon 10-01-2024 Erythrocyte distribution width (RBC) [Ratio] 23.2 % High 11.5-15.5 [facility] Comment on above: Performed By: #### A KRISTI, CBC, ADIFF ####[place] [address] Hematocrit (Bld) [Volume fraction] 31.7 % Low 34.0-46.0 [facility] Comment on above: Performed By: #### A KRISTI, CBC, ADIFF ####[place] [address] Hgb 9.8 G/dL Low 12.0-16.0 [facility] Comment on above: Performed By: #### A KRISTI, CBC, ADIFF ####[place] [address] MCH (RBC) [Entitic mass] 22.7 pg Low 27.0-33.0 [facility] Comment on above: Performed By: #### A KRISTI, CBC, ADIFF ####[place] [address] MCHC 30.9 G/dL Low 32.0-36.0 [facility] Comment on above: Performed By: #### A KRISTI, CBC, ADIFF ####[place] [address] MCV (RBC) [Entitic vol] 73.3 fL Low 80.0-99.0 [facility] Comment on above: Performed By: #### A KRISTI, CBC, ADIFF ####[place] [address] Platelet 302 10 3/mcL Normal 150-450 [facility] Comment on above: Performed By: #### A KRISTI, CBC, ADIFF ####[place] [address] Platelet mean volume (Bld) [Entitic vol] 8.4 fL Normal 6.6-10.5 [facility] Comment on above: Performed By: #### A KRISTI, CBC, ADIFF ####[place] [address] RBC 4.32 10 6/mcL Normal 4.10-5.30 [facility] Comment on above: Performed By: #### A KRISTI, CBC, ADIFF ####[place] [address] WBC 13.4 10 3/mcL High 4.5-10.8 [facility] Comment on above: Performed By: #### A KRISTI, CBC, ADIFF ####[place] [address] LABORATORYOrdered By: SYSTEM SYSTEM on 10-01-2024 Basophils (Bld) [#/Vol] 0.0 103/mcL Normal 0.0 - 0.3 10^3/mcL AH Workflow SS Basophils/100 WBC (Bld) 0.3 % Normal 0.0 - 2.5 % AH Workflow SS Eosinophils (Bld) [#/Vol] 0.0 103/mcL Normal 0.0 - 0.7 10^3/mcL AH Workflow SS Eosinophils/100 WBC (Bld) 0.2 % Normal 0.0 - 6.0 % AH Workflow SS Erythrocyte distribution width (RBC) [Ratio] 23.2 % High 11.5 - 15.5 % AH Workflow SS Hematocrit (Bld) [Volume fraction] 31.7 % Low 34.0 - 46.0 % AH Workflow SS Hemoglobin (Bld) [Mass/Vol] 9.8 G/dL Low 12.0 - 16.0 G/dL AH Workflow SS Lymphocytes (Bld) [#/Vol] 1.1 103/mcL Normal 0.9 - 4.3 10^3/mcL AH Workflow SS Lymphocytes/100 WBC (Bld) 8.3 % Low 20.0 - 40.0 % AH Workflow SS MCH (RBC) [Entitic mass] 22.7 pg Low 27.0 - 33.0 pg AH Workflow SS MCHC 30.9 G/dL Low 32.0 - 36.0 G/dL AH Workflow SS MCV (RBC) [Entitic vol] 73.3 fL Low 80.0 - 99.0 fL AH Workflow SS Monocytes (Bld) [#/Vol] 0.9 103/mcL Normal 0.1 - 1.4 10^3/mcL AH Workflow SS Monocytes/100 WBC (Bld) 6.7 % Normal 2.0 - 13.0 % AH Workflow SS Neutrophils (Bld) [#/Vol] 11.3 103/mcL High 2.3 - 8.1 10^3/mcL AH Workflow SS Neutrophils/100 WBC (Bld) 84.5 % High 50.0 - 75.0 % AH Workflow SS Platelet mean volume (Bld) [Entitic vol] 8.4 fL Normal 6.6 - 10.5 fL AH Workflow SS Platelets (Bld) [#/Vol] 302 103/mcL Normal 150 - 450 10^3/mcL AH Workflow SS RBC (Bld) [#/Vol] 4.32 106/mcL Normal 4.10 - 5.30 10^6/mcL AH Workflow SS WBC (Bld) [#/Vol] 13.4 103/mcL High 4.5 - 10.8 10^3/mcL AH Workflow SS .Auto Diffon 09-22-2024 Basophil, Absolute 0.0 10 3/mcL Normal 0.0-0.3 [facility] Comment on above: Performed By: #### A DIFF, CEA, CMP, GFR, CBC, ANEU ####[address] [address] Eosinophil, Absolute 0.1 10 3/mcL Normal 0.0-0.7 [facility] Comment on above: Performed By: #### A DIFF, CEA, CMP, GFR, CBC, ANEU ####[address] [address] Lymphocyte, Absolute 1.1 10 3/mcL Normal 0.9-4.3 [facility] Comment on above: Performed By: #### A DIFF, CEA, CMP, GFR, CBC, ANEU ####[address] [address] Monocyte, Absolute 0.3 10 3/mcL Normal 0.1-1.4 [facility] Comment on above: Performed By: #### A DIFF, CEA, CMP, GFR, CBC, ANEU ####[address] [address] .Auto DiffOrdered By: SYSTEM SYSTEM on 09-22-2024 Basophils/100 WBC (Bld) 0.5 % Normal 0.0-2.5 A H Workflow SS Comment on above: Performed By: #### A DIFF, CEA, CMP, GFR, CBC, ANEU ####[address] [address] Eosinophils/100 WBC (Bld) 2.0 % Normal 0.0-6.0 AH Workflow SS Comment on above: Performed By: #### A DIFF, CEA, CMP, GFR, CBC, ANEU ####[address] [address] Lymphocytes/100 WBC (Bld) 25.8 % Normal 20.0-40.0 AH Workflow SS Comment on above: Performed By: #### A DIFF, CEA, CMP, GFR, CBC, ANEU ####[address] [address] Monocytes/100 WBC (Bld) 7.8 % Normal 2.0-13.0 A H Workflow SS Comment on above: Performed By: #### A DIFF, CEA, CMP, GFR, CBC, ANEU ####[place] [address] Neutrophils/100 WBC (Bld) 63.9 % Normal 50.0-75.0 Workflow SS Comment on above: Performed By: #### A DIFF, CEA, CMP, GFR, CBC, ANEU ####[place] [address] .GFRon 09-22-2024 GFR/1.73 sq M.predicted among non-blacks MDRD (S/P/Bld) [Vol rate/Area] mL/min/{1.73_m2} Normal [facility] Comment on above: Result Comment: Stag es of Chronic Kidney Disease (CKD)Stage Description eGFR(ml/min/1.73 sq.m.)CKD 1 Normal kidney function or >=90 normal kindney function with possible kidney damage (ex. Proteinuria)CKD 2 Kidney damage with mild loss 60-89 of kidney functionCKD 3a Mild to moderate loss of kidney 45-59 functionCKD 3b Moderate to severe loss of 30-44 of kindey function CKD 4 Severe loss of kidney function 15-29CKD 5 Kidney failure <15Note: (go live 2024) the eGFR calculation was updated to the KD-EPI creatinine equation without a race factor to calculate theeGFR results. Performed By: #### A DIFF, CEA, CMP, GFR, CBC, ANEU ####[place] [address] .NEUABSon 09-22-2024 Neutrophil, Absolute 2.8 10 3/mcL Normal 2.3-8.1 [facility] Comment on above: Performed By: #### A DIFF, CEA, CMP, GFR, CBC, ANEU ####[place] [address] CBCOrdered By: SYSTEM SYSTEM on 09-22-2024 Erythrocyte distribution width (RBC) [Ratio] 23.0 % High 11.5-15.5 Workflow SS Comment on above: Performed By: #### A DIFF, CEA, CMP, GFR, CBC, ANEU ####[place] [address] Hematocrit (Bld) [Volume fraction] 26.7 % Low 34.0-46.0 AH Workflow SS Comment on above: Performed By: #### A DIFF, CEA, CMP, GFR, CBC, ANEU ####[place] [address] MCH (RBC) [Entitic mass] 22.8 pg Low 27.0-33.0 AH Workflow SS Comment on above: Performed By: #### A DIFF, CEA, CMP, GFR, CBC, ANEU ####[place] [address] MCHC 31.0 G/dL Low 32.0-36.0 AH Workflow SS Comment on above: Performed By: #### A DIFF, CEA, CMP, GFR, CBC, ANEU ####[place] [address] MCV (RBC) [Entitic vol] 73.4 fL Low 80.0-99.0 A H Workflow SS Comment on above: Performed By: #### A DIFF, CEA, CMP, GFR, CBC, ANEU ####[place] [address] Platelet mean volume (Bld) [Entitic vol] 8.0 fL Normal 6.6-10.5 AH Workflow SS Comment on above: Performed By: #### A DIFF, CEA, CMP, GFR, CBC, ANEU ####[place] [address] CBCon 09-22-2024 Hgb 8.3 G/dL Low 12.0-16.0 [facility] Comment on above: Performed By: #### A DIFF, CEA, CMP, GFR, CBC, ANEU ####[place] [address] Platelet 326 10 3/mcL Normal 150-450 [facility] Comment on above: Performed By: #### A DIFF, CEA, CMP, GFR, CBC, ANEU ####[place] [address] RBC 3.64 10 6/mcL Low 4.10-5.30 [facility] Comment on above: Performed By: #### A DIFF, CEA, CMP, GFR, CBC, ANEU ####[place] [address] WBC 4.3 10 3/mcL Low 4.5-10.8 [facility] Comment on above: Performed By: #### A DIFF, CEA, CMP, GFR, CBC, ANEU ####[place] [address] CEAon 09-22-2024 CEA 417.9 ng/mL High 0.0-3.0 [facility] Comment on above: Result Comment: CEA Reference Range for SMOKERS: 0.0 - 5.0 ng/mL.Testing performed on the [employer] analyzer usingdirect chemiluminesent technology. Patient resultsdetermined by assays using different manufacturers for methods may not be comparable. Performed By: #### A DIFF, CEA, CMP, GFR, CBC, ANEU ####[place] [address] CMPon 09-22-2024 Albumin Level 2.9 G/dL Low 3.2-4.8 [facility] Comment on above: Performed By: #### A DIFF, CEA, CMP, GFR, CBC, ANEU ####[place] [address] ALT [Catalytic activity/Vol] 12 U/L Normal 10-49 [facility] Comment on above: Performed By: #### A DIFF, CEA, CMP, GFR, CBC, ANEU ####[place] [address] Bili Total 0.50 mg/dL Normal 0.20-1.20 [facility] Comment on above: Result Comment: Use of this assay is not recommended for patients undergoing treatment with eltrombopag due to the potential for falsely elevated results. Performed By: #### A DIFF, CEA, CMP, GFR, CBC, ANEU ####[place] [address] BUN/Creatinine Ratio 22.7 ratio High 10.0-22.0 [facility] Comment on above: Performed By: #### A DIFF, CEA, CMP, GFR, CBC, ANEU ####[place] [address] Total Protein 7.1 G/dL Normal 5.7-8.2 [facility] Comment on above: Performed By: #### A DIFF, CEA, CMP, GFR, CBC, ANEU ####[address] [address] CMPOrdered By: SYSTEM SYSTEM on 09-22-2024 Albumin/Globulin [Mass ratio] 0.7 {ratio} Low 0.9-1.6 AH ADM SS Comment on above: Performed By: #### A DIFF, CEA, CMP, GFR, CBC, ANEU ####[address] [address] ALP [Catalytic activity/Vol] 78 U/L Normal 38-126 AH ADM SS Comment on above: Performed By: #### A DIFF, CEA, CMP, GFR, CBC, ANEU ####[place] [address] AST [Catalytic activity/Vol] 16 U/L Normal 8-34 AH ADM SS Comment on above: Performed By: #### A DIFF, CEA, CMP, GFR, CBC, ANEU ####[place] [address] Calcium [Mass/Vol] 8.6 mg/dL Low 8.7-10.4 AH ADM SS Comment on above: Performed By: #### A DIFF, CEA, CMP, GFR, CBC, ANEU ####[address] [address] Chloride [Moles/Vol] 105 mmol/L Normal 98-110 AH A DM SS Comment on above: Performed By: #### A DIFF, CEA, CMP, GFR, CBC, ANEU ####[address] [address] CO2 [Moles/Vol] 29 mmol/L Normal 22-32 AH ADM SS Comment on above: Performed By: #### A DIFF, CEA, CMP, GFR, CBC, ANEU ####[place] [id number] Creatinine [Mass/Vol] 0.44 mg/dL Low 0.50-1.20 AH ADM SS Comment on above: Interpretive Data: T esting performed on [employer] CH analyzer using enzymatic creatinine methodology. Result Comment: Test ing performed on [employer] CH analyzer using enzymatic creatinine methodology. Performed By: #### A DIFF, CEA, CMP, GFR, CBC, ANEU ####[address] [address] Electrolyte Balance 5.0 mEq/L Normal 4.0-15.0 AH AD M SS Comment on above: Performed By: #### A DIFF, CEA, CMP, GFR, CBC, ANEU ####[address] [address] Globulin 4.2 G/dL High 1.5-3.8 AH ADM SS Comment on above: Performed By: #### A DIFF, CEA, CMP, GFR, CBC, ANEU ####[address] [address] Glucose [Mass/Vol] 100 mg/dL Normal 70-110 AH ADM SS Comment on above: Performed By: #### A DIFF, CEA, CMP, GFR, CBC, ANEU ####[place] [address] Potassium [Moles/Vol] 3.8 mmol/L Normal 3.5-5.0 AH ADM SS Comment on above: Performed By: #### A DIFF, CEA, CMP, GFR, CBC, ANEU ####[address] [address] Sodium [Moles/Vol] 139 mmol/L Normal 136-145 AH ADM SS Comment on above: Performed By: #### A DIFF, CEA, CMP, GFR, CBC, ANEU ####[address] [address] Urea nitrogen [Mass/Vol] 10.0 mg/dL Normal 8.0-22.0 AH ADM SS Comment on above: Performed By: #### A DIFF, CEA, CMP, GFR, CBC, ANEU ####[address] [address] LABORATORYOrdered By: SYSTEM SYSTEM on 09-22-2024 Albumin BCP dye [Mass/Vol] 2.9 G/dL Low 3.2 - 4.8 G/dL AH ADM SS ALT No additional P-5'-P [Catalytic activity/Vol] 12 U/L Normal 10 - 49 U/L AH ADM SS Basophils (Bld) [#/Vol] 0.0 103/mcL Normal 0.0 - 0.3 10^3/mcL AH Workflow SS Bilirubin [Mass/Vol] 0.50 mg/dL Normal 0.20 - 1.20 mg/dL ADM SS Comment on above: Interpretive Data: U se of this assay is not recommended for patients undergoing treatment with eltrombopag due to the potential for falsely elevated results. Carcinoembryonic Ag [Mass/Vol] 417.9 ng/mL High 0.0 - 3.0 ng/mL ADM SS Comment on above: Interpretive Data: C EA Reference Range for SMOKERS: 0.0 - 5.0 ng/mL. Testing performed on the [employer] IM analyzer using direct chemiluminesent technology. Patient results determined by assays using different manufacturers for methods may not be comparable. Eosinophils (Bld) [#/Vol] 0.1 103/mcL Normal 0.0 - 0.7 10^3/mcL Workflow SS Estimated Glomerular Filtration Rate ml/min/1.73sqm Invalid Interpretation Code ADM SS Comment on above: Interpretive Data: Stages of Chronic Kidney Disease (CKD) Stage Description eGFR(ml/min/1.73 sq.m.) CKD 1 Normal kidney function or >=90 normal kindney function with possible kidney damage (ex. Proteinuria) CKD 2 Kidney damage with mild loss 60-89 of kidney function CKD 3a Mild to moderate loss of kidney 45-59 function CKD 3b Moderate to severe loss of 30-44 of kindey function CKD 4 Severe loss of kidney function 15-29 CKD 5 Kidney failure <15 Note: (go live 2024) the eGFR calculation was updated to the 2020 CKD-EPI creatinine equation without a race factor to calculate the eGFR results. Hemoglobin (Bld) [Mass/Vol] 8.3 G/dL Low 12.0 - 16.0 G/dL Workflow SS Lymphocytes (Bld) [#/Vol] 1.1 103/mcL Normal 0.9 - 4.3 10^3/mcL Workflow SS Monocytes (Bld) [#/Vol] 0.3 103/mcL Normal 0.1 - 1.4 10^3/mcL Workflow SS Neutrophils (Bld) [#/Vol] 2.8 103/mcL Normal 2.3 - 8.1 10^3/mcL Workflow SS Platelets (Bld) [#/Vol] 326 103/mcL Normal 150 - 450 10^3/mcL AH Workflow SS Protein [Mass/Vol] 7.1 G/dL Normal 5.7 - 8.2 G/dL AH ADM SS RBC (Bld) [#/Vol] 3.64 106/mcL Low 4.10 - 5.30 10^6/mcL AH Workflow SS Urea nitrogen/Creatinine [Mass ratio] 22.7 ratio High 10.0 - 22.0 ratio AH ADM SS WBC (Bld) [#/Vol] 4.3 103/mcL Low 4.5 - 10.8 10^3/mcL Workflow SS CT ABD/PELVIS W/ IV CONTRAST ONLYon 09-16-2024 CT ABD/PELVIS W/ IV CONTRAST ONLY Normal [facility] IR DRAINAGE CATH INJECTION F OR EVALon 09-16-2024 IR DRAINAGE CATH INJECTION FOR EVAL Normal [facility] CT ABD/PELVIS W/ IV CONTRAST ONLYon 09-07-2024 CT ABD/PELVIS W/ IV CONTRAST ONLY Normal [facility] IR DRAINAGE CATH INJECTION F OR EVALon 09-04-2024 IR DRAINAGE CATH INJECTION FOR EVAL Normal [facility] .Auto Diffon 08-31-2024 Basophil, Absolute 0.0 10 3/mcL Normal 0.0-0.3 [facility] Comment on above: Performed By: #### A KRISTI, ADIFF, GFR, CBC, BMP ####[address] [address] Basophils/100 WBC (Bld) 0.2 % Normal 0.0-2.5 [facility] Comment on above: Performed By: #### A KRISTI, ADIFF, GFR, CBC, BMP ####[address] [address] Eosinophil, Absolute 0.0 10 3/mcL Normal 0.0-0.7 [facility] Comment on above: Performed By: #### A KRISTI, ADIFF, GFR, CBC, BMP ####[address] [address] Eosinophils/100 WBC (Bld) 0.1 % Normal 0.0-6.0 [facility] Comment on above: Performed By: #### A KRISTI, ADIFF, GFR, CBC, BMP ####[address] [address] Lymphocyte, Absolute 1.5 10 3/mcL Normal 0.9-4.3 [facility] Comment on above: Performed By: #### A KRISTI, ADIFF, GFR, CBC, BMP ####[address] [address] Lymphocytes/100 WBC (Bld) 13.4 % Low 20.0-40.0 [facility] Comment on above: Performed By: #### A KRISTI, ADIFF, GFR, CBC, BMP ####[address] [address] Monocyte, Absolute 0.7 10 3/mcL Normal 0.1-1.4 [facility] Comment on above: Performed By: #### A KRISTI, ADIFF, GFR, CBC, BMP ####[address] [address] Monocytes/100 WBC (Bld) 6.3 % Normal 2.0-13.0 [facility] Comment on above: Performed By: #### A KRISTI, ADIFF, GFR, CBC, BMP ####[address] [address] Neutrophils/100 WBC (Bld) 80.0 % High 50.0-75.0 [facility] Comment on above: Performed By: #### A KRISTI, ADIFF, GFR, CBC, BMP ####[address] [address] .GFRon 08-31-2024 GFR/1.73 sq M.predicted among non-blacks MDRD (S/P/Bld) [Vol rate/Area] mL/min/{1.73_m2} Normal [facility] Comment on above: Result Comment: Stag es of Chronic Kidney Disease (CKD)Stage Description eGFR(ml/min/1.73 sq.m.)CKD 1 Normal kidney function or >=90 normal kindney function with possible kidney damage (ex. Proteinuria)CKD 2 Kidney damage with mild loss 60-89 of kidney functionCKD 3a Mild to moderate loss of kidney 45-59 functionCKD 3b Moderate to severe loss of 30-44 of kindey function CKD 4 Severe loss of kidney function 15-29CKD 5 Kidney failure <15Note: (go live 2024) the eGFR calculation was updated to the KD-EPI creatinine equation without a race factor to calculate theeGFR results. Performed By: #### A KRISTI, ADIFF, GFR, CBC, BMP ####[address] [address] .NEUABSon 08-31-2024 Neutrophil, Absolute 8.7 10 3/mcL High 2.3-8.1 [facility] Comment on above: Performed By: #### A KRISTI, ADIFF, GFR, CBC, BMP ####[place] [address] BMPon 08-31-2024 BUN/Creatinine Ratio 20.5 ratio Normal 10.0-22.0 [facility] Comment on above: Performed By: #### A KRISTI, ADIFF, GFR, CBC, BMP ####[place] [address] Calcium [Mass/Vol] 8.8 mg/dL Normal 8.7-10.4 [facility] Comment on above: Performed By: #### A KRISTI, ADIFF, GFR, CBC, BMP ####[place] [address] Chloride [Moles/Vol] 106 mmol/L Normal 98-110 [facility] Comment on above: Performed By: #### A KRISTI, ADIFF, GFR, CBC, BMP ####[place] [address] CO2 [Moles/Vol] 27 mmol/L Normal 22-32 [facility] Comment on above: Performed By: #### A KRISTI, ADIFF, GFR, CBC, BMP ####[place] [address] Creatinine [Mass/Vol] 0.44 mg/dL Low 0.50-1.20 [facility] Comment on above: Result Comment: Test ing performed on [employer] analyzer using enzymatic creatinine methodology. Performed By: #### A KRISTI, ADIFF, GFR, CBC, BMP ####[place] [address] Electrolyte Balance 6.0 mEq/L Normal 4.0-15.0 [facility] Comment on above: Performed By: #### A KRISTI, ADIFF, GFR, CBC, BMP ####[place] [address] Glucose [Mass/Vol] 99 mg/dL Normal 70-110 [facility] Comment on above: Performed By: #### A KRISTI, ADIFF, GFR, CBC, BMP ####[place] [address] Potassium [Moles/Vol] 3.5 mmol/L Normal 3.5-5.0 [facility] Comment on above: Performed By: #### A KRISTI, ADIFF, GFR, CBC, BMP ####[place] [address] Sodium [Moles/Vol] 139 mmol/L Normal 136-145 [facility] Comment on above: Performed By: #### A KRISTI, ADIFF, GFR, CBC, BMP ####[place] [address] Urea nitrogen [Mass/Vol] 9.0 mg/dL Normal 8.0-22.0 [facility] Comment on above: Performed By: #### A KRISTI, ADIFF, GFR, CBC, BMP ####[place] [address] CBCon 08-31-2024 Erythrocyte distribution width (RBC) [Ratio] 18.0 % High 11.5-15.5 [facility] Comment on above: Performed By: #### A KRISTI, ADIFF, GFR, CBC, BMP ####[place] [address] Hematocrit (Bld) [Volume fraction] 23.8 % Low 34.0-46.0 [facility] Comment on above: Performed By: #### A KRISTI, ADIFF, GFR, CBC, BMP ####[place] [address] Hgb 7.3 G/dL Low 12.0-16.0 [facility] Comment on above: Performed By: #### A KRISTI, ADIFF, GFR, CBC, BMP ####[address] [address] MCH (RBC) [Entitic mass] 21.2 pg Low 27.0-33.0 [facility] Comment on above: Performed By: #### A KRISTI, ADIFF, GFR, CBC, BMP ####[place] [address] MCHC 30.7 G/dL Low 32.0-36.0 [facility] Comment on above: Performed By: #### A KRISTI, ADIFF, GFR, CBC, BMP ####[place] [address] MCV (RBC) [Entitic vol] 69.1 fL Low 80.0-99.0 [facility] Comment on above: Performed By: #### A KRISTI, ADIFF, GFR, CBC, BMP ####[place] [address] Platelet 550 10 3/mcL High 150-450 [facility] Comment on above: Performed By: #### A KRISTI, ADIFF, GFR, CBC, BMP ####[place] [address] Platelet mean volume (Bld) [Entitic vol] 8.5 fL Normal 6.6-10.5 [facility] Comment on above: Performed By: #### A KRISTI, ADIFF, GFR, CBC, BMP ####[place] [address] RBC 3.44 10 6/mcL Low 4.10-5.30 [facility] Comment on above: Performed By: #### A KRISTI, ADIFF, GFR, CBC, BMP ####[place] [address] WBC 10.9 10 3/mcL High 4.5-10.8 [facility] Comment on above: Performed By: #### A KRISTI, ADIFF, GFR, CBC, BMP ####[place] [address] CBFon 08-31-2024 CBF Normal [facility] LABORATORYOrdered By: SYSTEM SYSTEM on 08-31-2024 Basophils (Bld) [#/Vol] 0.0 103/mcL Normal 0.0 - 0.3 10^3/mcL Workflow SS Basophils/100 WBC (Bld) 0.2 % Normal 0.0 - 2.5 % Workflow SS Calcium [Mass/Vol] 8.8 mg/dL Normal 8.7 - 10. 4 mg/dL ADM SS Chloride [Moles/Vol] 106 mmol/L Normal 98 - 11 0 mEq/L ADM SS CO2 [Moles/Vol] 27 mmol/L Normal 22 - 32 mEq/L ADM SS Creatinine [Mass/Vol] 0.44 mg/dL Low 0.50 - 1.20 mg/dL ADM SS Comment on above: Interpretive Data: T esting performed on [employer] analyzer using enzymatic creatinine methodology. Electrolyte Balance 6.0 mEq/L Normal 4.0 - 15 .0 mEq/L ADM SS Eosinophils (Bld) [#/Vol] 0.0 103/mcL Normal 0.0 - 0.7 10^3/mcL Workflow SS Eosinophils/100 WBC (Bld) 0.1 % Normal 0.0 - 6.0 % Workflow SS Erythrocyte distribution width (RBC) [Ratio] 18.0 % High 11.5 - 15.5 % Workflow SS Estimated Glomerular Filtration Rate ml/min/1.73sqm Invalid Interpretation Code Chemistry S Comment on above: Interpretive Data: Stages of Chronic Kidney Disease (CKD) Stage Description eGFR(ml/min/1.73 sq.m.) CKD 1 Normal kidney function or >=90 normal kindney function with possible kidney damage (ex. Proteinuria) CKD 2 Kidney damage with mild loss 60-89 of kidney function CKD 3a Mild to moderate loss of kidney 45-59 function CKD 3b Moderate to severe loss of 30-44 of kindey function CKD 4 Severe loss of kidney function 15-29 CKD 5 Kidney failure <15 Note: (go live 2024) the eGFR calculation was updated to the 2020 CKD-EPI creatinine equation without a race factor to calculate the eGFR results. Glucose [Mass/Vol] 99 mg/dL Normal 70 - 110 mg/dL ADM SS Hematocrit (Bld) [Volume fraction] 23.8 % Low 34.0 - 46.0 % Workflow SS Hemoglobin (Bld) [Mass/Vol] 7.3 G/dL Low 12.0 - 16.0 G/dL AH Workflow SS Lymphocytes (Bld) [#/Vol] 1.5 103/mcL Normal 0.9 - 4.3 10^3/mcL AH Workflow SS Lymphocytes/100 WBC (Bld) 13.4 % Low 20.0 - 40.0 % AH Workflow SS MCH (RBC) [Entitic mass] 21.2 pg Low 27.0 - 33.0 pg AH Workflow SS MCHC 30.7 G/dL Low 32.0 - 36.0 G/dL AH Workflow SS MCV (RBC) [Entitic vol] 69.1 fL Low 80.0 - 99.0 fL AH Workflow SS Monocytes (Bld) [#/Vol] 0.7 103/mcL Normal 0.1 - 1.4 10^3/mcL AH Workflow SS Monocytes/100 WBC (Bld) 6.3 % Normal 2.0 - 13.0 % AH Workflow SS Neutrophils (Bld) [#/Vol] 8.7 103/mcL High 2.3 - 8.1 10^3/mcL AH Workflow SS Neutrophils/100 WBC (Bld) 80.0 % High 50.0 - 75.0 % AH Workflow SS Platelet mean volume (Bld) [Entitic vol] 8.5 fL Normal 6.6 - 10.5 fL AH Workflow SS Platelets (Bld) [#/Vol] 550 103/mcL High 150 - 450 10^3/mcL AH Workflow SS Potassium [Moles/Vol] 3.5 mmol/L Normal 3.5 - 5.0 mEq/L AH ADM SS RBC (Bld) [#/Vol] 3.44 106/mcL Low 4.10 - 5.30 10^6/mcL AH Workflow SS Sodium [Moles/Vol] 139 mmol/L Normal 136 - 145 mEq/L ADM SS Urea nitrogen [Mass/Vol] 9.0 mg/dL Normal 8.0 - 22.0 mg/dL AH ADM SS Urea nitrogen/Creatinine [Mass ratio] 20.5 ratio Normal 10.0 - 22.0 ratio AH ADM SS WBC (Bld) [#/Vol] 10.9 103/mcL High 4.5 - 10.8 10^3/mcL AH Workflow SS .Auto Diffon 08-30-2024 Basophil, Absolute 0.0 10 3/mcL Normal 0.0-0.3 [facility] Comment on above: Performed By: #### A DIFF, BMP, ANEU, CBC, GFR ####[address] [address] Basophils/100 WBC (Bld) 0.3 % Normal 0.0-2.5 [facility] Comment on above: Performed By: #### A DIFF, BMP, ANEU, CBC, GFR ####[address] [address] Eosinophil, Absolute 0.0 10 3/mcL Normal 0.0-0.7 [facility] Comment on above: Performed By: #### A DIFF, BMP, ANEU, CBC, GFR ####[address] [address] Eosinophils/100 WBC (Bld) 0.0 % Normal 0.0-6.0 [facility] Comment on above: Performed By: #### A DIFF, BMP, ANEU, CBC, GFR ####[address] [address] Lymphocyte, Absolute 2.2 10 3/mcL Normal 0.9-4.3 [facility] Comment on above: Performed By: #### A DIFF, BMP, ANEU, CBC, GFR ####[address] [address] Lymphocytes/100 WBC (Bld) 16.9 % Low 20.0-40.0 [facility] Comment on above: Performed By: #### A DIFF, BMP, ANEU, CBC, GFR ####[address] [address] Monocyte, Absolute 0.6 10 3/mcL Normal 0.1-1.4 [facility] Comment on above: Performed By: #### A DIFF, BMP, ANEU, CBC, GFR ####[address] [address] Monocytes/100 WBC (Bld) 4.8 % Normal 2.0-13.0 [facility] Comment on above: Performed By: #### A DIFF, BMP, ANEU, CBC, GFR ####[address] [address] Neutrophils/100 WBC (Bld) 78.0 % High 50.0-75.0 [facility] Comment on above: Performed By: #### A DIFF, BMP, ANEU, CBC, GFR ####[address] [address] .GFRon 08-30-2024 Estimated Glomerular Filtration Rate 116 ml/min/1.73sqm Normal [facility] Comment on above: Result Comment: Stag es of Chronic Kidney Disease (CKD)Stage Description eGFR(ml/min/1.73 sq.m.)CKD 1 Normal kidney function or >=90 normal kindney function with possible kidney damage (ex. Proteinuria)CKD 2 Kidney damage with mild loss 60-89 of kidney functionCKD 3a Mild to moderate loss of kidney 45-59 functionCKD 3b Moderate to severe loss of 30-44 of kindey function CKD 4 Severe loss of kidney function 15-29CKD 5 Kidney failure <15Note: (go live 2024) the eGFR calculation was updated to the KD-EPI creatinine equation without a race factor to calculate theeGFR results. Performed By: #### A DIFF, BMP, ANEU, CBC, GFR ####[address] [address] .NEUABSon 08-30-2024 Neutrophil, Absolute 9.9 10 3/mcL High 2.3-8.1 [facility] Comment on above: Performed By: #### A DIFF, BMP, ANEU, CBC, GFR ####[address] [address] BMPon 08-30-2024 BUN/Creatinine Ratio 24.1 ratio High 10.0-22.0 [facility] Comment on above: Performed By: #### A DIFF, BMP, ANEU, CBC, GFR ####[address] [address] Calcium [Mass/Vol] 8.7 mg/dL Normal 8.7-10.4 [facility] Comment on above: Performed By: #### A DIFF, BMP, ANEU, CBC, GFR ####[address] [address] Chloride [Moles/Vol] 105 mmol/L Normal 98-110 [facility] Comment on above: Performed By: #### A DIFF, BMP, ANEU, CBC, GFR ####[place] [address] CO2 [Moles/Vol] 26 mmol/L Normal 22-32 [facility] Comment on above: Performed By: #### A DIFF, BMP, ANEU, CBC, GFR ####[place] [address] Creatinine [Mass/Vol] 0.54 mg/dL Normal 0.50-1.20 [facility] Comment on above: Result Comment: Test ing performed on [employer] analyzer using enzymatic creatinine methodology. Performed By: #### A DIFF, BMP, ANEU, CBC, GFR ####[place] [address] Electrolyte Balance 8.0 mEq/L Normal 4.0-15.0 [facility] Comment on above: Performed By: #### A DIFF, BMP, ANEU, CBC, GFR ####[place] [address] Glucose [Mass/Vol] 137 mg/dL High 70-110 [facility] Comment on above: Performed By: #### A DIFF, BMP, ANEU, CBC, GFR ####[place] [address] Potassium [Moles/Vol] 3.0 mmol/L Low 3.5-5.0 [facility] Comment on above: Performed By: #### A DIFF, BMP, ANEU, CBC, GFR ####[place] [address] Sodium [Moles/Vol] 139 mmol/L Normal 136-145 [facility] Comment on above: Performed By: #### A DIFF, BMP, ANEU, CBC, GFR ####[place] [address] Urea nitrogen [Mass/Vol] 13.0 mg/dL Normal 8.0-22.0 [facility] Comment on above: Performed By: #### A DIFF, BMP, ANEU, CBC, GFR ####[place] [address] [facility]Con 08-30-2024 Erythrocyte distribution width (RBC) [Ratio] 17.7 % High 11.5-15.5 [facility] Comment on above: Performed By: #### A DIFF, BMP, ANEU, CBC, GFR ####[place] [address] Hematocrit (Bld) [Volume fraction] 24.5 % Low 34.0-46.0 [facility] Comment on above: Performed By: #### A DIFF, BMP, ANEU, CBC, GFR ####[place] [address] Hgb 8.0 G/dL Low 12.0-16.0 [facility] Comment on above: Performed By: #### A DIFF, BMP, ANEU, CBC, GFR ####[place] [address] MCH (RBC) [Entitic mass] 22.6 pg Low 27.0-33.0 [facility] Comment on above: Performed By: #### A DIFF, BMP, ANEU, CBC, GFR ####[place] [address] MCHC 32.6 G/dL Normal 32.0-36.0 [facility] Comment on above: Performed By: #### A DIFF, BMP, ANEU, CBC, GFR ####[place] [address] MCV (RBC) [Entitic vol] 69.4 fL Low 80.0-99.0 [facility] Comment on above: Performed By: #### A DIFF, BMP, ANEU, CBC, GFR ####[place] [address] Platelet 529 10 3/mcL High 150-450 [facility] Comment on above: Performed By: #### A DIFF, BMP, ANEU, CBC, GFR ####[place] [address] Platelet mean volume (Bld) [Entitic vol] 8.4 fL Normal 6.6-10.5 [facility] Comment on above: Performed By: #### A DIFF, BMP, ANEU, CBC, GFR ####[id number] [place] [address] RBC 3.54 10 6/mcL Low 4.10-5.30 [facility] Comment on above: Performed By: #### A DIFF, BMP, ANEU, CBC, GFR ####[id number] [place] [address] WBC 12.7 10 3/mcL High 4.5-10.8 [facility] Comment on above: Performed By: #### A DIFF, BMP, ANEU, CBC, GFR ####[place] [id number] [place] [address] LABORATORYOrdered By: SYSTEM SYSTEM on 08-30-2024 Basophils (Bld) [#/Vol] 0.0 103/mcL Normal 0.0 - 0.3 10^3/mcL Workflow SS Basophils/100 WBC (Bld) 0.3 % Normal 0.0 - 2.5 % Workflow SS Calcium [Mass/Vol] 8.7 mg/dL Normal 8.7 - 10. 4 mg/dL ADM SS Chloride [Moles/Vol] 105 mmol/L Normal 98 - 11 0 mEq/L ADM SS CO2 [Moles/Vol] 26 mmol/L Normal 22 - 32 mEq/L ADM SS Creatinine [Mass/Vol] 0.54 mg/dL Normal 0.50 - 1.20 mg/dL ADM SS Comment on above: Interpretive Data: T esting performed on Cover CH analyzer using enzymatic creatinine methodology. Electrolyte Balance 8.0 mEq/L Normal 4.0 - 15 .0 mEq/L ADM SS Eosinophils (Bld) [#/Vol] 0.0 103/mcL Normal 0.0 - 0.7 10^3/mcL Workflow SS Eosinophils/100 WBC (Bld) 0.0 % Normal 0.0 - 6.0 % Workflow SS Erythrocyte distribution width (RBC) [Ratio] 17.7 % High 11.5 - 15.5 % Workflow SS Estimated Glomerular Filtration Rate 116 ml/min/1.73sqm Invalid Interpretation Code Chemistry S Comment on above: Interpretive Data: Stages of Chronic Kidney Disease (CKD) Stage Description eGFR(ml/min/1.73 sq.m.) CKD 1 Normal kidney function or >=90 normal kindney function with possible kidney damage (ex. Proteinuria) CKD 2 Kidney damage with mild loss 60-89 of kidney function CKD 3a Mild to moderate loss of kidney 45-59 function CKD 3b Moderate to severe loss of 30-44 of kindey function CKD 4 Severe loss of kidney function 15-29 CKD 5 Kidney failure <15 Note: (go live 2024) the eGFR calculation was updated to the 2020 CKD-EPI creatinine equation without a race factor to calculate the eGFR results. Glucose [Mass/Vol] 137 mg/dL High 70 - 110 mg/dL AH ADM SS Hematocrit (Bld) [Volume fraction] 24.5 % Low 34.0 - 46.0 % AH Workflow SS Hemoglobin (Bld) [Mass/Vol] 8.0 G/dL Low 12.0 - 16.0 G/dL AH Workflow SS Lymphocytes (Bld) [#/Vol] 2.2 103/mcL Normal 0.9 - 4.3 10^3/mcL AH Workflow SS Lymphocytes/100 WBC (Bld) 16.9 % Low 20.0 - 40.0 % AH Workflow SS MCH (RBC) [Entitic mass] 22.6 pg Low 27.0 - 33.0 pg AH Workflow SS MCHC 32.6 G/dL Normal 32.0 - 36.0 G/dL AH Workflow SS MCV (RBC) [Entitic vol] 69.4 fL Low 80.0 - 99.0 fL AH Workflow SS Monocytes (Bld) [#/Vol] 0.6 103/mcL Normal 0.1 - 1.4 10^3/mcL AH Workflow SS Monocytes/100 WBC (Bld) 4.8 % Normal 2.0 - 13.0 % AH Workflow SS Neutrophils (Bld) [#/Vol] 9.9 103/mcL High 2.3 - 8.1 10^3/mcL AH Workflow SS Neutrophils/100 WBC (Bld) 78.0 % High 50.0 - 75.0 % AH Workflow SS Platelet mean volume (Bld) [Entitic vol] 8.4 fL Normal 6.6 - 10.5 fL AH Workflow SS Platelets (Bld) [#/Vol] 529 103/mcL High 150 - 450 10^3/mcL AH Workflow SS Potassium [Moles/Vol] 3.0 mmol/L Low 3.5 - 5.0 mEq/L AH ADM SS RBC (Bld) [#/Vol] 3.54 106/mcL Low 4.10 - 5.30 10^6/mcL Workflow SS Sodium [Moles/Vol] 139 mmol/L Normal 136 - 145 mEq/L ADM SS Urea nitrogen [Mass/Vol] 13.0 mg/dL Normal 8.0 - 22.0 mg/dL ADM SS Urea nitrogen/Creatinine [Mass ratio] 24.1 ratio High 10.0 - 22.0 ratio AH ADM SS WBC (Bld) [#/Vol] 12.7 103/mcL High 4.5 - 10.8 10^3/mcL Workflow SS .Auto Diffon 08-29-2024 Basophil, Absolute 0.0 10 3/mcL Normal 0.0-0.3 [facility] Comment on above: Performed By: #### B MP, PHOS, GFR, ANEU, ADIFF, CBC, MG ####[address] [address] Basophils/100 WBC (Bld) 0.1 % Normal 0.0-2.5 [facility] Comment on above: Performed By: #### B MP, PHOS, GFR, ANEU, ADIFF, CBC, MG ####[address] [address] Eosinophil, Absolute 0.0 10 3/mcL Normal 0.0-0.7 [facility] Comment on above: Performed By: #### B MP, PHOS, GFR, ANEU, ADIFF, CBC, MG ####[address] [address] Eosinophils/100 WBC (Bld) 0.0 % Normal 0.0-6.0 [facility] Comment on above: Performed By: #### B MP, PHOS, GFR, ANEU, ADIFF, CBC, MG ####[address] [address] Lymphocyte, Absolute 0.9 10 3/mcL Normal 0.9-4.3 [facility] Comment on above: Performed By: #### B MP, PHOS, GFR, ANEU, ADIFF, CBC, MG ####[address] [address] Lymphocytes/100 WBC (Bld) 8.0 % Low 20.0-40.0 [facility] Comment on above: Performed By: #### B MP, PHOS, GFR, ANEU, ADIFF, CBC, MG ####[place] [id number] [place] [address] Monocyte, Absolute 0.3 10 3/mcL Normal 0.1-1.4 [facility] Comment on above: Performed By: #### B MP, PHOS, GFR, ANEU, ADIFF, CBC, MG ####[place] [id number] [place] [address] Monocytes/100 WBC (Bld) 2.7 % Normal 2.0-13.0 [facility] Comment on above: Performed By: #### B MP, PHOS, GFR, ANEU, ADIFF, CBC, MG ####[place] [id number] [place] [address] Neutrophils/100 WBC (Bld) 89.2 % High 50.0-75.0 [facility] Comment on above: Performed By: #### B MP, PHOS, GFR, ANEU, ADIFF, CBC, MG ####[address] [address] .GFRon 08-29-2024 GFR/1.73 sq M.predicted among non-blacks MDRD (S/P/Bld) [Vol rate/Area] mL/min/{1.73_m2} Normal [facility] Comment on above: Result Comment: Stag es of Chronic Kidney Disease (CKD)Stage Description eGFR(ml/min/1.73 sq.m.)CKD 1 Normal kidney function or >=90 normal kindney function with possible kidney damage (ex. Proteinuria)CKD 2 Kidney damage with mild loss 60-89 of kidney functionCKD 3a Mild to moderate loss of kidney 45-59 functionCKD 3b Moderate to severe loss of 30-44 of kindey function CKD 4 Severe loss of kidney function 15-29CKD 5 Kidney failure <15Note: (go live 2024) the eGFR calculation was updated to the KD-EPI creatinine equation without a race factor to calculate theeGFR results. Performed By: #### B MP, PHOS, GFR, ANEU, ADIFF, CBC, MG ####[address] [address] .NEUABSon 08-29-2024 Neutrophil, Absolute 10.4 10 3/mcL High 2.3-8.1 [facility] Comment on above: Performed By: #### B MP, PHOS, GFR, ANEU, ADIFF, CBC, MG ####[place] [id number] BMPon 08-29-2024 BUN/Creatinine Ratio 21.4 ratio Normal 10.0-22.0 [facility] Comment on above: Performed By: #### B MP, PHOS, GFR, ANEU, ADIFF, CBC, MG ####[place] [address] Calcium [Mass/Vol] 9.1 mg/dL Normal 8.7-10.4 [facility] Comment on above: Performed By: #### B MP, PHOS, GFR, ANEU, ADIFF, CBC, MG ####[place] [address] Chloride [Moles/Vol] 103 mmol/L Normal 98-110 [facility] Comment on above: Performed By: #### B MP, PHOS, GFR, ANEU, ADIFF, CBC, MG ####[place] [address] CO2 [Moles/Vol] 30 mmol/L Normal 22-32 [facility] Comment on above: Performed By: #### B MP, PHOS, GFR, ANEU, ADIFF, CBC, MG ####[place] [address] Creatinine [Mass/Vol] 0.42 mg/dL Low 0.50-1.20 [facility] Comment on above: Result Comment: Test ing performed on [employer] analyzer using enzymatic creatinine methodology. Performed By: #### B MP, PHOS, GFR, ANEU, ADIFF, CBC, MG ####[place] [address] Electrolyte Balance 6.0 mEq/L Normal 4.0-15.0 [facility] Comment on above: Performed By: #### B MP, PHOS, GFR, ANEU, ADIFF, CBC, MG ####[place] [address] Glucose [Mass/Vol] 142 mg/dL High 70-110 [facility] Comment on above: Performed By: #### B MP, PHOS, GFR, ANEU, ADIFF, CBC, MG ####[place] [address] Potassium [Moles/Vol] 3.5 mmol/L Normal 3.5-5.0 [facility] Comment on above: Performed By: #### B MP, PHOS, GFR, ANEU, ADIFF, CBC, MG ####[place] [address] Sodium [Moles/Vol] 139 mmol/L Normal 136-145 [facility] Comment on above: Performed By: #### B MP, PHOS, GFR, ANEU, ADIFF, CBC, MG ####[place] [address] Urea nitrogen [Mass/Vol] 9.0 mg/dL Normal 8.0-22.0 [facility] Comment on above: Performed By: #### B MP, PHOS, GFR, ANEU, ADIFF, CBC, MG ####[place] [address] CBCon 08-29-2024 Erythrocyte distribution width (RBC) [Ratio] 17.8 % High 11.5-15.5 [facility] Comment on above: Performed By: #### B MP, PHOS, GFR, ANEU, ADIFF, CBC, MG ####[place] [address] Hematocrit (Bld) [Volume fraction] 23.6 % Low 34.0-46.0 [facility] Comment on above: Performed By: #### B MP, PHOS, GFR, ANEU, ADIFF, CBC, MG ####[place] [address] Hgb 7.2 G/dL Low 12.0-16.0 [facility] Comment on above: Performed By: #### B MP, PHOS, GFR, ANEU, ADIFF, CBC, MG ####[place] [address] MCH (RBC) [Entitic mass] 21.4 pg Low 27.0-33.0 [facility] Comment on above: Performed By: #### B MP, PHOS, GFR, ANEU, ADIFF, CBC, MG ####[place] [address] MCHC 30.3 G/dL Low 32.0-36.0 [facility] Comment on above: Performed By: #### B MP, PHOS, GFR, ANEU, ADIFF, CBC, MG ####[place] [address] MCV (RBC) [Entitic vol] 70.6 fL Low 80.0-99.0 [facility] Comment on above: Performed By: #### B MP, PHOS, GFR, ANEU, ADIFF, CBC, MG ####[place] [address] Platelet 399 10 3/mcL Normal 150-450 [facility] Comment on above: Performed By: #### B MP, PHOS, GFR, ANEU, ADIFF, CBC, MG ####[place] [address] Platelet mean volume (Bld) [Entitic vol] 8.4 fL Normal 6.6-10.5 [facility] Comment on above: Performed By: #### B MP, PHOS, GFR, ANEU, ADIFF, CBC, MG ####[place] [address] RBC 3.34 10 6/mcL Low 4.10-5.30 [facility] Comment on above: Performed By: #### B MP, PHOS, GFR, ANEU, ADIFF, CBC, MG ####[place] [address] WBC 11.7 10 3/mcL High 4.5-10.8 [facility] Comment on above: Performed By: #### B MP, PHOS, GFR, ANEU, ADIFF, CBC, MG ####[id number] [place], [place] [id number] CBLon 08-29-2024 CBL Normal [facility] IR ASPIRATION/DRAINAGEon IR ASPIRATION/DRAINAGE Normal [facility] LABORATORYOrdered By: SYSTEM SYSTEM on 08-29-2024 Basophils (Bld) [#/Vol] 0.0 103/mcL Normal 0.0 - 0.3 10^3/mcL Workflow SS Basophils/100 WBC (Bld) 0.1 % Normal 0.0 - 2.5 % AH Workflow SS Calcium [Mass/Vol] 9.1 mg/dL Normal 8.7 - 10. 4 mg/dL ADM SS Chloride [Moles/Vol] 103 mmol/L Normal 98 - 11 0 mEq/L ADM SS CO2 [Moles/Vol] 30 mmol/L Normal 22 - 32 mEq/L ADM SS Creatinine [Mass/Vol] 0.42 mg/dL Low 0.50 - 1.20 mg/dL ADM SS Comment on above: Interpretive Data: T esting performed on [employer] analyzer using enzymatic creatinine methodology. Electrolyte Balance 6.0 mEq/L Normal 4.0 - 15 .0 mEq/L ADM SS Eosinophils (Bld) [#/Vol] 0.0 103/mcL Normal 0.0 - 0.7 10^3/mcL Workflow SS Eosinophils/100 WBC (Bld) 0.0 % Normal 0.0 - 6.0 % AH Workflow SS Erythrocyte distribution width (RBC) [Ratio] 17.8 % High 11.5 - 15.5 % AH Workflow SS Estimated Glomerular Filtration Rate ml/min/1.73sqm Invalid Interpretation Code Chemistry S Comment on above: Interpretive Data: Stages of Chronic Kidney Disease (CKD) Stage Description eGFR(ml/min/1.73 sq.m.) CKD 1 Normal kidney function or >=90 normal kindney function with possible kidney damage (ex. Proteinuria) CKD 2 Kidney damage with mild loss 60-89 of kidney function CKD 3a Mild to moderate loss of kidney 45-59 function CKD 3b Moderate to severe loss of 30-44 of kindey function CKD 4 Severe loss of kidney function 15-29 CKD 5 Kidney failure <15 Note: (go live 2024) the eGFR calculation was updated to the 2020 CKD-EPI creatinine equation without a race factor to calculate the eGFR results. Glucose [Mass/Vol] 142 mg/dL High 70 - 110 mg/dL ADM SS Hematocrit (Bld) [Volume fraction] 23.6 % Low 34.0 - 46.0 % Workflow SS Hemoglobin (Bld) [Mass/Vol] 7.2 G/dL Low 12.0 - 16.0 G/dL AH Workflow SS Lymphocytes (Bld) [#/Vol] 0.9 103/mcL Normal 0.9 - 4.3 10^3/mcL Workflow SS Lymphocytes/100 WBC (Bld) 8.0 % Low 20.0 - 40.0 % Workflow SS Magnesium [Mass/Vol] 2.0 mg/dL Normal 1.6 - 2 .4 mg/dL ADM SS MCH (RBC) [Entitic mass] 21.4 pg Low 27.0 - 33.0 pg Workflow SS MCHC 30.3 G/dL Low 32.0 - 36.0 G/dL Workflow SS MCV (RBC) [Entitic vol] 70.6 fL Low 80.0 - 99.0 fL Workflow SS Monocytes (Bld) [#/Vol] 0.3 103/mcL Normal 0.1 - 1.4 10^3/mcL Workflow SS Monocytes/100 WBC (Bld) 2.7 % Normal 2.0 - 13.0 % Workflow SS Neutrophils (Bld) [#/Vol] 10.4 103/mcL High 2.3 - 8.1 10^3/mcL Workflow SS Neutrophils/100 WBC (Bld) 89.2 % High 50.0 - 75.0 % Workflow SS Phosphate [Mass/Vol] 4.4 mg/dL Normal 2.4 - 5 .1 mg/dL ADM SS Comment on above: Interpretive Data: * *Note - New Reference Range in effect 20 Platelet mean volume (Bld) [Entitic vol] 8.4 fL Normal 6.6 - 10.5 fL Workflow SS Platelets (Bld) [#/Vol] 399 103/mcL Normal 150 - 450 10^3/mcL Workflow SS Potassium [Moles/Vol] 3.5 mmol/L Normal 3.5 - 5.0 mEq/L ADM SS RBC (Bld) [#/Vol] 3.34 106/mcL Low 4.10 - 5.30 10^6/mcL AH Workflow SS Sodium [Moles/Vol] 139 mmol/L Normal 136 - 145 mEq/L AH ADM SS Urea nitrogen [Mass/Vol] 9.0 mg/dL Normal 8.0 - 22.0 mg/dL AH ADM SS Urea nitrogen/Creatinine [Mass ratio] 21.4 ratio Normal 10.0 - 22.0 ratio AH ADM SS WBC (Bld) [#/Vol] 11.7 103/mcL High 4.5 - 10.8 10^3/mcL Workflow SS MGon 08-29-2024 Magnesium [Mass/Vol] 2.0 mg/dL Normal 1.6-2.4 [facility] Comment on above: Performed By: #### B MP, PHOS, GFR, ANEU, ADIFF, CBC, MG ####[place] [address] PHOSon 08-29-2024 Phosphate [Mass/Vol] 4.4 mg/dL Normal 2.4-5.1 [facility] Comment on above: Result Comment: No te - New Reference Range in effect 20 Performed By: #### B MP, PHOS, GFR, ANEU, ADIFF, CBC, MG ####[place] [address] .Auto Diffon 08-28-2024 Basophil, Absolute 0.0 10 3/mcL Normal 0.0-0.3 [facility] Comment on above: Performed By: #### B MP, ADIFF, MORPH, CBC, GFR, PHOS, MG, ANEU ####[place] [address] Basophils/100 WBC (Bld) 0.2 % Normal 0.0-2.5 [facility] Comment on above: Performed By: #### B MP, ADIFF, MORPH, CBC, GFR, PHOS, MG, ANEU ####[place] [address] Eosinophil, Absolute 0.0 10 3/mcL Normal 0.0-0.7 [facility] Comment on above: Performed By: #### B MP, ADIFF, MORPH, CBC, GFR, PHOS, MG, ANEU ####[address] [address] Eosinophils/100 WBC (Bld) 0.0 % Normal 0.0-6.0 [facility] Comment on above: Performed By: #### B MP, ADIFF, MORPH, CBC, GFR, PHOS, MG, ANEU ####[address] [address] Lymphocyte, Absolute 1.4 10 3/mcL Normal 0.9-4.3 [facility] Comment on above: Performed By: #### B MP, ADIFF, MORPH, CBC, GFR, PHOS, MG, ANEU ####[address] [address] Lymphocytes/100 WBC (Bld) 10.6 % Low 20.0-40.0 [facility] Comment on above: Performed By: #### B MP, ADIFF, MORPH, CBC, GFR, PHOS, MG, ANEU ####[address] [address] Monocyte, Absolute 0.7 10 3/mcL Normal 0.1-1.4 [facility] Comment on above: Performed By: #### B MP, ADIFF, MORPH, CBC, GFR, PHOS, MG, ANEU ####[address] [address] Monocytes/100 WBC (Bld) 4.9 % Normal 2.0-13.0 [facility] Comment on above: Performed By: #### B MP, ADIFF, MORPH, CBC, GFR, PHOS, MG, ANEU ####[address] [address] Neutrophils/100 WBC (Bld) 84.3 % High 50.0-75.0 [facility] Comment on above: Performed By: #### B MP, ADIFF, MORPH, CBC, GFR, PHOS, MG, ANEU ####[address] [address] .GFRon 08-28-2024 GFR/1.73 sq M.predicted among non-blacks MDRD (S/P/Bld) [Vol rate/Area] mL/min/{1.73_m2} Normal [facility] Comment on above: Result Comment: Stag es of Chronic Kidney Disease (CKD)Stage Description eGFR(ml/min/1.73 sq.m.)CKD 1 Normal kidney function or >=90 normal kindney function with possible kidney damage (ex. Proteinuria)CKD 2 Kidney damage with mild loss 60-89 of kidney functionCKD 3a Mild to moderate loss of kidney 45-59 functionCKD 3b Moderate to severe loss of 30-44 of kindey function CKD 4 Severe loss of kidney function 15-29CKD 5 Kidney failure <15Note: (go live 2024) the eGFR calculation was updated to the KD-EPI creatinine equation without a race factor to calculate theeGFR results. Performed By: #### B MP, ADIFF, MORPH, CBC, GFR, PHOS, MG, ANEU ####[place] [address] .Morphon 08-28-2024 Microcytosis 2+ Normal [facility] Comment on above: Performed By: #### B MP, ADIFF, MORPH, CBC, GFR, PHOS, MG, ANEU ####[place] [address] Platelet Estimate Slt Increased Normal [facility] Comment on above: Performed By: #### B MP, ADIFF, MORPH, CBC, GFR, PHOS, MG, ANEU ####[address] [address] .NEUABSon 08-28-2024 Neutrophil, Absolute 11.1 10 3/mcL High 2.3-8.1 A [facility] Comment on above: Performed By: #### B MP, ADIFF, MORPH, CBC, GFR, PHOS, MG, ANEU ####[place] [address] ABO/Rh (Gel)on 08-28-2024 ABO/Rh Interp Positive Invalid Interpretation Code [facility] Comment on above: Order Comment: Order ed by Discern Performed By: #### A SANDY, ABSGEL ####[place] [address] ABS (Gel)on 08-28-2024 ABSC Interp (Gel) Negative Normal [facility] Comment on above: Order Comment: Order ed by Discern Performed By: #### A KESHAV DELGADO ####[address] [address] BMPon 08-28-2024 BUN/Creatinine Ratio Unable to Calculate Normal 10.0-2 2.0 [facility] Comment on above: Result Comment: Unab le to calculate this test result accurately. Results used to calculate this test are outside the reportable range. Performed By: #### B MP, ADIFF, MORPH, CBC, GFR, PHOS, MG, ANEU ####[address] [address] Urea nitrogen [Mass/Vol] mg/dL Low 8.0-22.0 [facility] Comment on above: Performed By: #### B MP, ADIFF, MORPH, CBC, GFR, PHOS, MG, ANEU ####[address] [address] Calcium [Mass/Vol] 8.9 mg/dL Normal 8.7-10.4 [facility] Comment on above: Performed By: #### B MP, ADIFF, MORPH, CBC, GFR, PHOS, MG, ANEU ####[address] [address] Chloride [Moles/Vol] 103 mmol/L Normal 98-110 [facility] Comment on above: Performed By: #### B MP, ADIFF, MORPH, CBC, GFR, PHOS, MG, ANEU ####[address] [address] CO2 [Moles/Vol] 28 mmol/L Normal 22-32 [facility] Comment on above: Performed By: #### B MP, ADIFF, MORPH, CBC, GFR, PHOS, MG, ANEU ####[address] [address] Creatinine [Mass/Vol] 0.45 mg/dL Low 0.50-1.20 [facility] Comment on above: Result Comment: Test ing performed on [employer] analyzer using enzymatic creatinine methodology. Performed By: #### B MP, ADIFF, MORPH, CBC, GFR, PHOS, MG, ANEU ####[place] [address] Electrolyte Balance 7.0 mEq/L Normal 4.0-15.0 [facility] Comment on above: Performed By: #### B MP, ADIFF, MORPH, CBC, GFR, PHOS, MG, ANEU ####[place] [address] Glucose [Mass/Vol] 110 mg/dL Normal 70-110 [facility] Comment on above: Performed By: #### B MP, ADIFF, MORPH, CBC, GFR, PHOS, MG, ANEU ####[place] [address] Potassium [Moles/Vol] 3.2 mmol/L Low 3.5-5.0 [facility] Comment on above: Performed By: #### B MP, ADIFF, MORPH, CBC, GFR, PHOS, MG, ANEU ####[place] [address] Sodium [Moles/Vol] 138 mmol/L Normal 136-145 [facility] Comment on above: Performed By: #### B MP, ADIFF, MORPH, CBC, GFR, PHOS, MG, ANEU ####[place] [address] CBCon 08-28-2024 Erythrocyte distribution width (RBC) [Ratio] 17.2 % High 11.5-15.5 [facility] Comment on above: Performed By: #### B MP, ADIFF, MORPH, CBC, GFR, PHOS, MG, ANEU ####[place] [address] Hematocrit (Bld) [Volume fraction] 25.0 % Low 34.0-46.0 [facility] Comment on above: Performed By: #### B MP, ADIFF, MORPH, CBC, GFR, PHOS, MG, ANEU ####[place] [address] Hgb 8.0 G/dL Low 12.0-16.0 [facility] Comment on above: Performed By: #### B MP, ADIFF, MORPH, CBC, GFR, PHOS, MG, ANEU ####[place] [address] MCH (RBC) [Entitic mass] 21.9 pg Low 27.0-33.0 [facility] Comment on above: Performed By: #### B MP, ADIFF, MORPH, CBC, GFR, PHOS, MG, ANEU ####[place] [address] MCHC 31.8 G/dL Low 32.0-36.0 [facility] Comment on above: Performed By: #### B MP, ADIFF, MORPH, CBC, GFR, PHOS, MG, ANEU ####[place] [address] MCV (RBC) [Entitic vol] 68.9 fL Low 80.0-99.0 [facility] Comment on above: Performed By: #### B MP, ADIFF, MORPH, CBC, GFR, PHOS, MG, ANEU ####[place] [address] Platelet 451 10 3/mcL High 150-450 [facility] Comment on above: Performed By: #### B MP, ADIFF, MORPH, CBC, GFR, PHOS, MG, ANEU ####[place] [address] Platelet mean volume (Bld) [Entitic vol] 8.6 fL Normal 6.6-10.5 [facility] Comment on above: Performed By: #### B MP, ADIFF, MORPH, CBC, GFR, PHOS, MG, ANEU ####[place] [address] RBC 3.62 10 6/mcL Low 4.10-5.30 [facility] Comment on above: Performed By: #### B MP, ADIFF, MORPH, CBC, GFR, PHOS, MG, ANEU ####[place] [address] WBC 13.2 10 3/mcL High 4.5-10.8 [facility] Comment on above: Performed By: #### B MP, ADIFF, MORPH, CBC, GFR, PHOS, MG, ANEU ####[place] [address] CVFLURVon 08-28-2024 FLU A PCR Negative Normal Negative [facility] Comment on above: Order Comment: recei pelon E-swab, called for recollect. 08/28/2024 16:56:55 EST mkm Result Comment: [place] [id number] Performed By: #### C VFLURV ####[place] [address] FLU B PCR Negative Normal Negative [facility] Comment on above: Order Comment: recei pelon E-swab, called for recollect. 08/28/2024 16:56:55 EST mkm Result Comment: [place] [id number] Performed By: #### C VFLURV ####[place] [address] RSV PCR Negative Normal Negative [facility] Comment on above: Order Comment: recei pelon E-swab, called for recollect. 08/28/2024 16:56:55 EST mkm Result Comment: [place] [id number] Performed By: #### C VFLURV ####[place] [address] SARS-CoV-2 (COVID-19) RNA EUGENE+probe Ql (Unsp spec) Negative Normal Negative [facility] Comment on above: Order Comment: recei pelon E-swab, called for recollect. 08/28/2024 16:56:55 EST mkm Result Comment: Note s [id number] test has been authorized by FDA under an EUA for use by authorized laboratories and has not been FDA cleared or approved.Results from the Xpert Xpress SARS-CoV-2/Flu/RSV or Xpert Xpress SARS-CoV-2 only test should be correlated with the clinical history, epidemiological data, and other data available to the clinician evaluating the patient. Performance of the Xpert Xpress SARS-CoV-2/Flu/RSV or Xpert Xpress SARS-CoV-2 only test has only been established in nasopharyngeal swab specimens.Erroneous test results might occur from improper specimen collection; failure to follow the recommended sample collection, handling, and storage procedures; technical error; or sample mix-up.False negative results may occur if virus is present at levels below the analytical limit of detection.Viral nucleic acid may persist in vivo, independent of virus viability. Detection of analyte target(s) does not imply that the corresponding virus(es) are infectious or are the causative agents for clinical symptoms.Recent patient exposure to FluMist or other live attenuated influenza vaccines may cause inaccurate positive results. Performed By: #### C [facility] ####[place] [address] LABORATORYOrdered By: Joey Frank on 08-28-2024 FLUAV RNA EUGENE+probe Ql (Resp) Negative 24 (08/28/24 5:48 PM) Normal Negative [facility] Comment on above: [place]: [place] [id number] FLUBV RNA EUGENE+probe Ql (Resp) Negative 26 (08/28/24 5:48 PM) Normal Negative [facility] Viro/Sero SS Comment on above: Result Comment: [place] [id number] RSV PCR Negative 28 (08/28/24 5:48 PM) Normal Negative [facility]Sero SS Comment on above: Result Comment: Note s [id number] SARS-CoV-2 (COVID-19) RNA EUGENE+probe Ql (Resp) Negative 20, 21 (08/28/24 5:48 PM) Normal Negative [facility] Viro/Sero SS Comment on above: Interpretive Data: T his test has been authorized by FDA under an EUA for use by authorized laboratories and has not been FDA cleared or approved. Results from the Xpert Xpress SARS-CoV-2/Flu/RSV or Xpert Xpress SARS-CoV-2 only test should be correlated with the clinical history, epidemiological data, and other data available to the clinician evaluating the patient. Performance of the Xpert Xpress SARS-CoV-2/Flu/RSV or Xpert Xpress SARS-CoV-2 only test has only been established in nasopharyngeal swab specimens. Erroneous test results might occur from improper specimen collection; failure to follow the recommended sample collection, handling, and storage procedures; technical error; or sample mix-up.False negative results may occur if virus is present at levels below the analytical limit of detection. Viral nucleic acid may persist in vivo, independent of virus viability. Detection of analyte target(s) does not imply that the corresponding virus(es) are infectious or are the causative agents for clinical symptoms.Recent patient exposure to FluMist or other live attenuated influenza vaccines may cause inaccurate positive results. Result Comment: Note s [id number] LABORATORYOrdered By: Farrah Grace on 08-28-2024 Beta HCG ( test) Ql (U) Negative (08/28/24 1:12 PM) [facility] Work Phone: LABORATORYOrdered By: Cullen Wilson on 08-28-2024 ABO and Rh group Nom (Bld) Blood group O Rh(D) positive Invalid Interpretation Code AH BB Auto SS Blood group antibody screen Ql Negative ABSC (08/28/24 1:11 PM) Normal AH BB Auto SS RBC Product Ready RBC Ready for Pickup (08/28/24 1:09 PM) Normal AH BB Manual SS LABORATORYOrdered By: SYSTEM SYSTEM on 08-28-2024 Magnesium [Mass/Vol] 1.7 mg/dL Normal 1.6 - 2 .4 mg/dL AH ADM SS Microcytes Ql (Bld) 2+ *NA* (08/28/24 7:01 AM) Invalid Interpretation Code AH Workflow SS Phosphate [Mass/Vol] 4.0 mg/dL Normal 2.4 - 5 .1 mg/dL AH ADM SS Comment on above: Interpretive Data: * *Note - New Reference Range in effect 20 Platelets LM Ql (Bld) Slt Increased *NA* (08/28/24 7:01 AM) Invalid Interpretation Code Workflow SS MGon 08-28-2024 Magnesium [Mass/Vol] 1.7 mg/dL Normal 1.6-2.4 [facility] Comment on above: Performed By: #### B MP, ADIFF, MORPH, CBC, GFR, PHOS, MG, ANEU ####[address] [address] PHOSon 08-28-2024 Phosphate [Mass/Vol] 4.0 mg/dL Normal 2.4-5.1 [facility] Comment on above: Result Comment: No te - New Reference Range in effect 20 Performed By: #### B MP, ADIFF, MORPH, CBC, GFR, PHOS, MG, ANEU ####[address] [address] RBC (Product)on 08-28-2024 RBC Product Ready RBC Ready for Pickup Normal [facility] Comment on above: Performed By: #### R BCP ####[address] [address] [place] ANESTHESIA BLOCKon 2024 [place] ANESTHESIA BLOCK ORIGINAL Images acquired, not reported on this accession number. Normal [facility] .Auto Diffon 08-27-2024 Basophil, Absolute 0.0 10 3/mcL Normal 0.0-0.3 [facility] Comment on above: Performed By: #### C BC, BMP, ANEU, GFR, ADIFF, PHOS, MG ####[address] [address] Basophils/100 WBC (Bld) 0.3 % Normal 0.0-2.5 [facility] Comment on above: Performed By: #### C BC, BMP, ANEU, GFR, ADIFF, PHOS, MG ####[address] [address] Eosinophil, Absolute 0.0 10 3/mcL Normal 0.0-0.7 [facility] Comment on above: Performed By: #### C BC, BMP, ANEU, GFR, ADIFF, PHOS, MG ####[address] [address] Eosinophils/100 WBC (Bld) 0.1 % Normal 0.0-6.0 [facility] Comment on above: Performed By: #### C BC, BMP, ANEU, GFR, ADIFF, PHOS, MG ####[address] [address] Lymphocyte, Absolute 1.5 10 3/mcL Normal 0.9-4.3 [facility] Comment on above: Performed By: #### C BC, BMP, ANEU, GFR, ADIFF, PHOS, MG ####[address] [address] Lymphocytes/100 WBC (Bld) 22.7 % Normal 20.0-40.0 [facility] Comment on above: Performed By: #### C BC, BMP, ANEU, GFR, ADIFF, PHOS, MG ####[id number] [place] [address] Monocyte, Absolute 0.5 10 3/mcL Normal 0.1-1.4 [facility] Comment on above: Performed By: #### C BC, BMP, ANEU, GFR, ADIFF, PHOS, MG ####[place] [id number] [place] [address] Monocytes/100 WBC (Bld) 6.8 % Normal 2.0-13.0 [facility] Comment on above: Performed By: #### C BC, BMP, ANEU, GFR, ADIFF, PHOS, MG ####[place] [id number] [place] [address] Neutrophils/100 WBC (Bld) 70.1 % Normal 50.0-75.0 [facility] Comment on above: Performed By: #### C BC, BMP, ANEU, GFR, ADIFF, PHOS, MG ####[address] [address] .GFRon 08-27-2024 GFR/1.73 sq M.predicted among non-blacks MDRD (S/P/Bld) [Vol rate/Area] mL/min/{1.73_m2} Normal [facility] Comment on above: Result Comment: Stag es of Chronic Kidney Disease (CKD)Stage Description eGFR(ml/min/1.73 sq.m.)CKD 1 Normal kidney function or >=90 normal kindney function with possible kidney damage (ex. Proteinuria)CKD 2 Kidney damage with mild loss 60-89 of kidney functionCKD 3a Mild to moderate loss of kidney 45-59 functionCKD 3b Moderate to severe loss of 30-44 of kindey function CKD 4 Severe loss of kidney function 15-29CKD 5 Kidney failure <15Note: (go live 2024) the eGFR calculation was updated to the KD-EPI creatinine equation without a race factor to calculate theeGFR results. Performed By: #### C BC, BMP, ANEU, GFR, ADIFF, PHOS, MG ####[place] [id number] [place] [address] .NEUABSon 08-27-2024 Neutrophil, Absolute 4.6 10 3/mcL Normal 2.3-8.1 [facility] Comment on above: Performed By: #### C BC, BMP, ANEU, GFR, ADIFF, PHOS, MG ####[address] [address] BMPon 08-27-2024 BUN/Creatinine Ratio Unable to Calculate Normal 10.0-2 2.0 [facility] Comment on above: Result Comment: Unab le to calculate this test result accurately. Results used to calculate this test are outside the reportable range. Performed By: #### C BC, BMP, ANEU, GFR, ADIFF, PHOS, MG ####[address] [address] Urea nitrogen [Mass/Vol] mg/dL Low 8.0-22.0 [facility] Comment on above: Performed By: #### C BC, BMP, ANEU, GFR, ADIFF, PHOS, MG ####[address] [address] Calcium [Mass/Vol] 8.2 mg/dL Low 8.7-10.4 [facility] Comment on above: Performed By: #### C BC, BMP, ANEU, GFR, ADIFF, PHOS, MG ####[address] [address] Chloride [Moles/Vol] 105 mmol/L Normal 98-110 [facility] Comment on above: Performed By: #### C BC, BMP, ANEU, GFR, ADIFF, PHOS, MG ####[address] [address] CO2 [Moles/Vol] 29 mmol/L Normal 22-32 [facility] Comment on above: Performed By: #### C BC, BMP, ANEU, GFR, ADIFF, PHOS, MG ####[address] [address] Creatinine [Mass/Vol] 0.44 mg/dL Low 0.50-1.20 [facility] Comment on above: Result Comment: Test ing performed on [employer] analyzer using enzymatic creatinine methodology. Performed By: #### C BC, BMP, ANEU, GFR, ADIFF, PHOS, MG ####[place] [address] Electrolyte Balance 5.0 mEq/L Normal 4.0-15.0 [facility] Comment on above: Performed By: #### C BC, BMP, ANEU, GFR, ADIFF, PHOS, MG ####[place] [address] Glucose [Mass/Vol] 124 mg/dL High 70-110 [facility] Comment on above: Performed By: #### C BC, BMP, ANEU, GFR, ADIFF, PHOS, MG ####[place] [id number] Potassium [Moles/Vol] 3.4 mmol/L Low 3.5-5.0 [facility] Comment on above: Performed By: #### C BC, BMP, ANEU, GFR, ADIFF, PHOS, MG ####[place] [address] Sodium [Moles/Vol] 139 mmol/L Normal 136-145 [facility] Comment on above: Performed By: #### C BC, BMP, ANEU, GFR, ADIFF, PHOS, MG ####[place] [address] CBCon 08-27-2024 Erythrocyte distribution width (RBC) [Ratio] 17.5 % High 11.5-15.5 [facility] Comment on above: Performed By: #### C BC, BMP, ANEU, GFR, ADIFF, PHOS, MG ####[place] [address] Hematocrit (Bld) [Volume fraction] 23.4 % Low 34.0-46.0 [facility] Comment on above: Performed By: #### C BC, BMP, ANEU, GFR, ADIFF, PHOS, MG ####[place] [address] Hgb 7.2 G/dL Low 12.0-16.0 [facility] Comment on above: Performed By: #### C BC, BMP, ANEU, GFR, ADIFF, PHOS, MG ####[place] [address] MCH (RBC) [Entitic mass] 21.6 pg Low 27.0-33.0 [facility] Comment on above: Performed By: #### C BC, BMP, ANEU, GFR, ADIFF, PHOS, MG ####[place] [address] MCHC 30.7 G/dL Low 32.0-36.0 [facility] Comment on above: Performed By: #### C BC, BMP, ANEU, GFR, ADIFF, PHOS, MG ####[place] [address] MCV (RBC) [Entitic vol] 70.3 fL Low 80.0-99.0 [facility] Comment on above: Performed By: #### C BC, BMP, ANEU, GFR, ADIFF, PHOS, MG ####[place] [address] Platelet 328 10 3/mcL Normal 150-450 [facility] Comment on above: Performed By: #### C BC, BMP, ANEU, GFR, ADIFF, PHOS, MG ####[place] [address] Platelet mean volume (Bld) [Entitic vol] 8.4 fL Normal 6.6-10.5 [facility] Comment on above: Performed By: #### C BC, BMP, ANEU, GFR, ADIFF, PHOS, MG ####[place] [address] RBC 3.33 10 6/mcL Low 4.10-5.30 [facility] Comment on above: Performed By: #### C BC, BMP, ANEU, GFR, ADIFF, PHOS, MG ####[place] [address] WBC 6.6 10 3/mcL Normal 4.5-10.8 [facility] Comment on above: Performed By: #### C BC, BMP, ANEU, GFR, ADIFF, PHOS, MG ####[place] [address] LABORATORYOrdered By: SYSTEM SYSTEM on 08-27-2024 Magnesium [Mass/Vol] 1.8 mg/dL Normal 1.6 - 2 .4 mg/dL AH ADM SS Phosphate [Mass/Vol] 2.8 mg/dL Normal 2.4 - 5 .1 mg/dL ADM SS Comment on above: Interpretive Data: * *Note - New Reference Range in effect 20 MGon 08-27-2024 Magnesium [Mass/Vol] 1.8 mg/dL Normal 1.6-2.4 [facility] Comment on above: Performed By: #### C BC, BMP, ANEU, GFR, ADIFF, PHOS, MG ####[place] [address] PHOSon 08-27-2024 Phosphate [Mass/Vol] 2.8 mg/dL Normal 2.4-5.1 [facility] Comment on above: Result Comment: No te - New Reference Range in effect 20 Performed By: #### C BC, BMP, ANEU, GFR, ADIFF, PHOS, MG ####[place] [address] .Auto Diffon 08-26-2024 Basophil, Absolute 0.0 10 3/mcL Normal 0.0-0.3 [facility] Comment on above: Performed By: #### G FR, ADIFF, PHOS, PRO, CBC, BMP, MG, ANEU ####[place] [address] Basophils/100 WBC (Bld) 0.1 % Normal 0.0-2.5 [facility] Comment on above: Performed By: #### G FR, ADIFF, PHOS, PRO, CBC, BMP, MG, ANEU ####[place] [address] Eosinophil, Absolute 0.0 10 3/mcL Normal 0.0-0.7 [facility] Comment on above: Performed By: #### G FR, ADIFF, PHOS, PRO, CBC, BMP, MG, ANEU ####[place] [address] Eosinophils/100 WBC (Bld) 0.1 % Normal 0.0-6.0 [facility] Comment on above: Performed By: #### G FR, ADIFF, PHOS, PRO, CBC, BMP, MG, ANEU ####[address] [address] Lymphocyte, Absolute 1.9 10 3/mcL Normal 0.9-4.3 [facility] Comment on above: Performed By: #### G FR, ADIFF, PHOS, PRO, CBC, BMP, MG, ANEU ####[address] [address] Lymphocytes/100 WBC (Bld) 15.0 % Low 20.0-40.0 [facility] Comment on above: Performed By: #### G FR, ADIFF, PHOS, PRO, CBC, BMP, MG, ANEU ####[address] [address] Monocyte, Absolute 0.8 10 3/mcL Normal 0.1-1.4 [facility] Comment on above: Performed By: #### G FR, ADIFF, PHOS, PRO, CBC, BMP, MG, ANEU ####[address] [address] Monocytes/100 WBC (Bld) 6.2 % Normal 2.0-13.0 [facility] Comment on above: Performed By: #### G FR, ADIFF, PHOS, PRO, CBC, BMP, MG, ANEU ####[address] [address] Neutrophils/100 WBC (Bld) 78.6 % High 50.0-75.0 [facility] Comment on above: Performed By: #### G FR, ADIFF, PHOS, PRO, CBC, BMP, MG, ANEU ####[address] [address] .GFRon 08-26-2024 Estimated Glomerular Filtration Rate 119 ml/min/1.73sqm Normal [facility] Comment on above: Result Comment: Stag es of Chronic Kidney Disease (CKD)Stage Description eGFR(ml/min/1.73 sq.m.)CKD 1 Normal kidney function or >=90 normal kindney function with possible kidney damage (ex. Proteinuria)CKD 2 Kidney damage with mild loss 60-89 of kidney functionCKD 3a Mild to moderate loss of kidney 45-59 functionCKD 3b Moderate to severe loss of 30-44 of kindey function CKD 4 Severe loss of kidney function 15-29CKD 5 Kidney failure <15Note: (go live 2024) the eGFR calculation was updated to the KD-EPI creatinine equation without a race factor to calculate theeGFR results. Performed By: #### G FR, ADIFF, PHOS, PRO, CBC, BMP, MG, ANEU ####[address] [address] .NEUABSon 08-26-2024 Neutrophil, Absolute 9.9 10 3/mcL High 2.3-8.1 [facility] Comment on above: Performed By: #### G FR, ADIFF, PHOS, PRO, CBC, BMP, MG, ANEU ####[address] [address] BMPon 08-26-2024 BUN/Creatinine Ratio Unable to Calculate Normal 10.0-2 2.0 [facility] Comment on above: Result Comment: Unab le to calculate this test result accurately. Results used to calculate this test are outside the reportable range. Performed By: #### G FR, ADIFF, PHOS, PRO, CBC, BMP, MG, ANEU ####[address] [address] Urea nitrogen [Mass/Vol] mg/dL Low 8.0-22.0 [facility] Comment on above: Performed By: #### G FR, ADIFF, PHOS, PRO, CBC, BMP, MG, ANEU ####[address] [address] Calcium [Mass/Vol] 8.5 mg/dL Low 8.7-10.4 [facility] Comment on above: Performed By: #### G FR, ADIFF, PHOS, PRO, CBC, BMP, MG, ANEU ####[address] [address] Chloride [Moles/Vol] 101 mmol/L Normal 98-110 [facility] Comment on above: Performed By: #### G FR, ADIFF, PHOS, PRO, CBC, BMP, MG, ANEU ####[place] [address] CO2 [Moles/Vol] 26 mmol/L Normal 22-32 [facility] Comment on above: Performed By: #### G FR, ADIFF, PHOS, PRO, CBC, BMP, MG, ANEU ####[place] [address] Creatinine [Mass/Vol] 0.49 mg/dL Low 0.50-1.20 [facility] Comment on above: Result Comment: Test ing performed on [employer] analyzer using enzymatic creatinine methodology. Performed By: #### G FR, ADIFF, PHOS, PRO, CBC, BMP, MG, ANEU ####[place] [address] Electrolyte Balance 12.0 mEq/L Normal 4.0-15.0 [facility] Comment on above: Performed By: #### G FR, ADIFF, PHOS, PRO, CBC, BMP, MG, ANEU ####[place] [address] Glucose [Mass/Vol] 109 mg/dL Normal 70-110 [facility] Comment on above: Performed By: #### G FR, ADIFF, PHOS, PRO, CBC, BMP, MG, ANEU ####[place] [address] Potassium [Moles/Vol] 3.2 mmol/L Low 3.5-5.0 [facility] Comment on above: Performed By: #### G FR, ADIFF, PHOS, PRO, CBC, BMP, MG, ANEU ####[place] [address] Sodium [Moles/Vol] 139 mmol/L Normal 136-145 [facility] Comment on above: Performed By: #### G FR, ADIFF, PHOS, PRO, CBC, BMP, MG, ANEU ####[place] [address] CBCon 08-26-2024 Erythrocyte distribution width (RBC) [Ratio] 17.5 % High 11.5-15.5 [facility] Comment on above: Performed By: #### G FR, ADIFF, PHOS, PRO, CBC, BMP, MG, ANEU ####[place] [address] Hematocrit (Bld) [Volume fraction] 25.5 % Low 34.0-46.0 [facility] Comment on above: Performed By: #### G FR, ADIFF, PHOS, PRO, CBC, BMP, MG, ANEU ####[place] [address] Hgb 7.9 G/dL Low 12.0-16.0 [facility] Comment on above: Performed By: #### G FR, ADIFF, PHOS, PRO, CBC, BMP, MG, ANEU ####[place] [address] MCH (RBC) [Entitic mass] 21.6 pg Low 27.0-33.0 [facility] Comment on above: Performed By: #### G FR, ADIFF, PHOS, PRO, CBC, BMP, MG, ANEU ####[place] [address] MCHC 30.8 G/dL Low 32.0-36.0 [facility] Comment on above: Performed By: #### G FR, ADIFF, PHOS, PRO, CBC, BMP, MG, ANEU ####[place] [address] MCV (RBC) [Entitic vol] 70.2 fL Low 80.0-99.0 [facility] Comment on above: Performed By: #### G FR, ADIFF, PHOS, PRO, CBC, BMP, MG, ANEU ####[place] [address] Platelet 422 10 3/mcL Normal 150-450 [facility] Comment on above: Performed By: #### G FR, ADIFF, PHOS, PRO, CBC, BMP, MG, ANEU ####[place] [address] Platelet mean volume (Bld) [Entitic vol] 8.4 fL Normal 6.6-10.5 [facility] Comment on above: Performed By: #### G FR, ADIFF, PHOS, PRO, CBC, BMP, MG, ANEU ####[place] [id number] [place] [address] RBC 3.64 10 6/mcL Low 4.10-5.30 [facility] Comment on above: Performed By: #### G FR, ADIFF, PHOS, PRO, CBC, BMP, MG, ANEU ####[place] [id number] [place] [address] WBC 12.6 10 3/mcL High 4.5-10.8 [facility] Comment on above: Performed By: #### G FR, ADIFF, PHOS, PRO, CBC, BMP, MG, ANEU ####[place] [address] CEFAZOLIN:SUSC:PT:ISOLATE:OR DQN:MICon 08-26-2024 ceFAZolin MARIA DEL ROSARIO [Susc] Light Escherichia c lou Light Escherichia coli #2 Light Actinomyces turicensis Sensitivity testing is not recommended for one of the following reasons: 1. Established susceptibility patterns are available or 2. Interpretative criteria are not available. No anaerobes isolated at 5 days. [facility] Work Phone: LABORATORYOrdered By: SYSTEM SYSTEM on 08-26-2024 PT Coag (PPP) [Time] 15.8 s High 9.0 - 1 4.4 seconds DEB DAMIAN Comment on above: Interpretive Data: E ffective 01/13/08, Protime results may be affected by some antibiotics (i.e. Ciprofloxacin, Azithromycin, Bactrim) which may potentiate the action of oral anticoagulants, with further increases in Protime/INR. PT International Ratio 1.4 ratio Invalid Interpretation Code DEB DAMIAN Comment on above: Interpretive Data: Pam pardo [employer] (CHEST, 1992, 102:[id number]) recommended therapeutic range for oral anticoagulant therapy is: LOW RISK: Prophylaxis of venous thrombosis INR: 2.0-3.0 Treatment of pulmonary embolism 2.0-3.0 Prevention of systemic embolism 2.0-3.0 HIGH RISK: Mechanical prosthetic valves 2.5-3.5 MGon 08-26-2024 Magnesium [Mass/Vol] 2.0 mg/dL Normal 1.6-2.4 [facility] Comment on above: Performed By: #### G FR, ADIFF, PHOS, PRO, CBC, BMP, MG, ANEU ####[place] [address] PHOSon 08-26-2024 Phosphate [Mass/Vol] 3.5 mg/dL Normal 2.4-5.1 [facility] Comment on above: Result Comment: No te - New Reference Range in effect 20 Performed By: #### G FR, ADIFF, PHOS, PRO, CBC, BMP, MG, ANEU ####[place] [address] PROon 08-26-2024 INR Coag (PPP) [Relative time] 1.4 {INR} Normal [facility] Comment on above: Result Comment: [employer] (CHEST, 1992, [id number])recommended therapeutic range for oral anticoagulant therapy is:LOW RISK: Prophylaxis of venous thrombosis INR: 2.0-3.0 Treatment of pulmonary embolism 2.0-3.0 Prevention of systemic embolism 2.0-3.0HIGH RISK: Mechanical prosthetic valves 2.5-3.5 Performed By: #### G FR, ADIFF, PHOS, PRO, CBC, BMP, MG, ANEU ####[place] [address] PT Coag (PPP) [Time] 15.8 s High 9.0-14.4 [facility] Comment on above: Result Comment: Effe ctive 01/13/08, Protime results may be affected by some antibiotics (i.e. Ciprofloxacin, Azithromycin, Bactrim) which may potentiate the action of oral anticoagulants, with further increases in Protime/INR. Performed By: #### G FR, ADIFF, PHOS, PRO, CBC, BMP, MG, ANEU ####[place] [address] ceFAZolin MARIA DEL ROSARIO [Susc]on 08-26 Escherichia coli Escherichia coli [facility] Work Phone: GS Sedimented 4+ Polymorphonuclear cells 1+ Gram Positive Cocci Rare Gram Positive Rods Rare Gram Negative Rods [facility] Work Phone: .Auto Diffon 08-25-2024 Basophil, Absolute 0.0 10 3/mcL Normal 0.0-0.3 [facility] Comment on above: Performed By: #### P HOS, BMP, ADIFF, MG, ABSGEL, CBC, GFR, ABOGEL, ANEU ####[address] [address] Basophils/100 WBC (Bld) 0.1 % Normal 0.0-2.5 [facility] Comment on above: Performed By: #### P HOS, BMP, ADIFF, MG, ABSGEL, CBC, GFR, ABOGEL, ANEU ####[address] [address] Eosinophil, Absolute 0.0 10 3/mcL Normal 0.0-0.7 [facility] Comment on above: Performed By: #### P HOS, BMP, ADIFF, MG, ABSGEL, CBC, GFR, ABOGEL, ANEU ####[address] [address] Eosinophils/100 WBC (Bld) 0.1 % Normal 0.0-6.0 [facility] Comment on above: Performed By: #### P HOS, BMP, ADIFF, MG, ABSGEL, CBC, GFR, ABOGEL, ANEU ####[address] [address] Lymphocyte, Absolute 1.3 10 3/mcL Normal 0.9-4.3 [facility] Comment on above: Performed By: #### P HOS, BMP, ADIFF, MG, ABSGEL, CBC, GFR, ABOGEL, ANEU ####[address] [address] Lymphocytes/100 WBC (Bld) 10.4 % Low 20.0-40.0 [facility] Comment on above: Performed By: #### P HOS, BMP, ADIFF, MG, ABSGEL, CBC, GFR, ABOGEL, ANEU ####[address] [address] Monocyte, Absolute 0.8 10 3/mcL Normal 0.1-1.4 [facility] Comment on above: Performed By: #### P HOS, BMP, ADIFF, MG, ABSGEL, CBC, GFR, ABOGEL, ANEU ####[address] [address] Monocytes/100 WBC (Bld) 6.0 % Normal 2.0-13.0 [facility] Comment on above: Performed By: #### P HOS, BMP, ADIFF, MG, ABSGEL, CBC, GFR, ABOGEL, ANEU ####[place] [address] Neutrophils/100 WBC (Bld) 83.4 % High 50.0-75.0 [facility] Comment on above: Performed By: #### P HOS, BMP, ADIFF, MG, ABSGEL, CBC, GFR, ABOGEL, ANEU ####[place] [address] .GFRon 08-25-2024 GFR/1.73 sq M.predicted among non-blacks MDRD (S/P/Bld) [Vol rate/Area] mL/min/{1.73_m2} Normal [facility] Comment on above: Result Comment: Stag es of Chronic Kidney Disease (CKD)Stage Description eGFR(ml/min/1.73 sq.m.)CKD 1 Normal kidney function or >=90 normal kindney function with possible kidney damage (ex. Proteinuria)CKD 2 Kidney damage with mild loss 60-89 of kidney functionCKD 3a Mild to moderate loss of kidney 45-59 functionCKD 3b Moderate to severe loss of 30-44 of kindey function CKD 4 Severe loss of kidney function 15-29CKD 5 Kidney failure <15Note: (go live 2024) the eGFR calculation was updated to the KD-EPI creatinine equation without a race factor to calculate theeGFR results. Performed By: #### P HOS, BMP, ADIFF, MG, ABSGEL, CBC, GFR, ABOGEL, ANEU ####[place] [address] .NEUABSon 08-25-2024 Neutrophil, Absolute 10.8 10 3/mcL High 2.3-8.1 A [facility] Comment on above: Performed By: #### P HOS, BMP, ADIFF, MG, ABSGEL, CBC, GFR, ABOGEL, ANEU ####[address] [address] ABO/Rh (Gel)on 08-25-2024 ABO/Rh Interp Positive Invalid Interpretation Code [facility] Comment on above: Performed By: #### P HOS, BMP, ADIFF, MG, ABSGEL, CBC, GFR, ABOGEL, ANEU ####[address] [address] ABS (Gel)on 08-25-2024 ABSC Interp (Gel) Negative Normal [facility] Comment on above: Performed By: #### P HOS, BMP, ADIFF, MG, ABSGEL, CBC, GFR, ABOGEL, ANEU ####[address] [address] BMPon 08-25-2024 BUN/Creatinine Ratio Unable to Calculate Normal 10.0-2 2.0 [facility] Comment on above: Result Comment: Unab le to calculate this test result accurately. Results used to calculate this test are outside the reportable range. Performed By: #### P HOS, BMP, ADIFF, MG, ABSGEL, CBC, GFR, ABOGEL, ANEU ####[address] [address] Urea nitrogen [Mass/Vol] mg/dL Low 8.0-22.0 [facility] Comment on above: Performed By: #### P HOS, BMP, ADIFF, MG, ABSGEL, CBC, GFR, ABOGEL, ANEU ####[address] [address] Calcium [Mass/Vol] 8.5 mg/dL Low 8.7-10.4 [facility] Comment on above: Performed By: #### P HOS, BMP, ADIFF, MG, ABSGEL, CBC, GFR, ABOGEL, ANEU ####[address] [address] Chloride [Moles/Vol] 102 mmol/L Normal 98-110 [facility] Comment on above: Performed By: #### P HOS, BMP, ADIFF, MG, ABSGEL, CBC, GFR, ABOGEL, ANEU ####[address] [address] CO2 [Moles/Vol] 26 mmol/L Normal 22-32 [facility] Comment on above: Performed By: #### P HOS, BMP, ADIFF, MG, ABSGEL, CBC, GFR, ABOGEL, ANEU ####[place] [address] Creatinine [Mass/Vol] 0.45 mg/dL Low 0.50-1.20 [facility] Comment on above: Result Comment: Test ing performed on [employer] analyzer using enzymatic creatinine methodology. Performed By: #### P HOS, BMP, ADIFF, MG, ABSGEL, CBC, GFR, ABOGEL, ANEU ####[place] [address] Electrolyte Balance 9.0 mEq/L Normal 4.0-15.0 [facility] Comment on above: Performed By: #### P HOS, BMP, ADIFF, MG, ABSGEL, CBC, GFR, ABOGEL, ANEU ####[place] [id number] Glucose [Mass/Vol] 96 mg/dL Normal 70-110 [facility] Comment on above: Performed By: #### P HOS, BMP, ADIFF, MG, ABSGEL, CBC, GFR, ABOGEL, ANEU ####[address] [address] Potassium [Moles/Vol] 3.6 mmol/L Normal 3.5-5.0 [facility] Comment on above: Performed By: #### P HOS, BMP, ADIFF, MG, ABSGEL, CBC, GFR, ABOGEL, ANEU ####[address] [address] Sodium [Moles/Vol] 137 mmol/L Normal 136-145 [facility] Comment on above: Performed By: #### P HOS, BMP, ADIFF, MG, ABSGEL, CBC, GFR, ABOGEL, ANEU ####[address] [address] CBCon 08-25-2024 Erythrocyte distribution width (RBC) [Ratio] 17.6 % High 11.5-15.5 [facility] Comment on above: Performed By: #### P HOS, BMP, ADIFF, MG, ABSGEL, CBC, GFR, ABOGEL, ANEU ####[place] [address] Hematocrit (Bld) [Volume fraction] 26.5 % Low 34.0-46.0 [facility] Comment on above: Performed By: #### P HOS, BMP, ADIFF, MG, ABSGEL, CBC, GFR, ABOGEL, ANEU ####[place] [address] Hgb 8.2 G/dL Low 12.0-16.0 [facility] Comment on above: Performed By: #### P HOS, BMP, ADIFF, MG, ABSGEL, CBC, GFR, ABOGEL, ANEU ####[place] [address] MCH (RBC) [Entitic mass] 21.7 pg Low 27.0-33.0 [facility] Comment on above: Performed By: #### P HOS, BMP, ADIFF, MG, ABSGEL, CBC, GFR, ABOGEL, ANEU ####[place] [address] MCHC 30.8 G/dL Low 32.0-36.0 [facility] Comment on above: Performed By: #### P HOS, BMP, ADIFF, MG, ABSGEL, CBC, GFR, ABOGEL, ANEU ####[place] [address] MCV (RBC) [Entitic vol] 70.3 fL Low 80.0-99.0 [facility] Comment on above: Performed By: #### P HOS, BMP, ADIFF, MG, ABSGEL, CBC, GFR, ABOGEL, ANEU ####[place] [address] Platelet 408 10 3/mcL Normal 150-450 [facility] Comment on above: Performed By: #### P HOS, BMP, ADIFF, MG, ABSGEL, CBC, GFR, ABOGEL, ANEU ####[place] [address] Platelet mean volume (Bld) [Entitic vol] 8.9 fL Normal 6.6-10.5 [facility] Comment on above: Performed By: #### P HOS, BMP, ADIFF, MG, ABSGEL, CBC, GFR, ABOGEL, ANEU ####[place] [address] RBC 3.77 10 6/mcL Low 4.10-5.30 [facility] Comment on above: Performed By: #### P HOS, BMP, ADIFF, MG, ABSGEL, CBC, GFR, ABOGEL, ANEU ####[place] [address] WBC 12.9 10 3/mcL High 4.5-10.8 [facility] Comment on above: Performed By: #### P HOS, BMP, ADIFF, MG, ABSGEL, CBC, GFR, ABOGEL, ANEU ####[place] [address] LABORATORYOrdered By: Bruno Garcia on 08-25-2024 ABO and Rh group Nom (Bld) Blood group O Rh(D) positive Invalid Interpretation Code AH BB Auto SS Blood group antibody screen Ql Negative ABSC (08/25/24 5:42 AM) Normal BB Auto SS MGon 08-25-2024 Magnesium [Mass/Vol] 1.5 mg/dL Low 1.6-2.4 [facility] Comment on above: Performed By: #### P HOS, BMP, ADIFF, MG, ABSGEL, CBC, GFR, ABOGEL, ANEU ####[place] [address] PHOSon 08-25-2024 Phosphate [Mass/Vol] 3.3 mg/dL Normal 2.4-5.1 [facility] Comment on above: Result Comment: No te - New Reference Range in effect 20 Performed By: #### P HOS, BMP, ADIFF, MG, ABSGEL, CBC, GFR, ABOGEL, ANEU ####[address] [address] .Auto Diffon 08-24-2024 Basophil, Absolute 0.0 10 3/mcL Normal 0.0-0.3 [facility] Comment on above: Performed By: #### G FR, CBC, CK, PHOS, ADIFF, ANEU, BMP, MG ####[address] [address] Basophils/100 WBC (Bld) 0.1 % Normal 0.0-2.5 [facility] Comment on above: Performed By: #### G FR, CBC, CK, PHOS, ADIFF, ANEU, BMP, MG ####[place] [address] Eosinophil, Absolute 0.0 10 3/mcL Normal 0.0-0.7 [facility] Comment on above: Performed By: #### G FR, CBC, CK, PHOS, ADIFF, ANEU, BMP, MG ####[address] [address] Eosinophils/100 WBC (Bld) 0.4 % Normal 0.0-6.0 [facility] Comment on above: Performed By: #### G FR, CBC, CK, PHOS, ADIFF, ANEU, BMP, MG ####[address] [address] Lymphocyte, Absolute 1.1 10 3/mcL Normal 0.9-4.3 [facility] Comment on above: Performed By: #### G FR, CBC, CK, PHOS, ADIFF, ANEU, BMP, MG ####[address] [address] Lymphocytes/100 WBC (Bld) 8.6 % Low 20.0-40.0 [facility] Comment on above: Performed By: #### G FR, CBC, CK, PHOS, ADIFF, ANEU, BMP, MG ####[address] [address] Monocyte, Absolute 0.8 10 3/mcL Normal 0.1-1.4 [facility] Comment on above: Performed By: #### G FR, CBC, CK, PHOS, ADIFF, ANEU, BMP, MG ####[address] [address] Monocytes/100 WBC (Bld) 6.6 % Normal 2.0-13.0 [facility] Comment on above: Performed By: #### G FR, CBC, CK, PHOS, ADIFF, ANEU, BMP, MG ####[address] [address] Neutrophils/100 WBC (Bld) 84.3 % High 50.0-75.0 [facility] Comment on above: Performed By: #### G FR, CBC, CK, PHOS, ADIFF, ANEU, BMP, MG ####[place] [id number] .GFRon 08-24-2024 Estimated Glomerular Filtration Rate 117 ml/min/1.73sqm Normal [facility] Comment on above: Result Comment: Stag es of Chronic Kidney Disease (CKD)Stage Description eGFR(ml/min/1.73 sq.m.)CKD 1 Normal kidney function or >=90 normal kindney function with possible kidney damage (ex. Proteinuria)CKD 2 Kidney damage with mild loss 60-89 of kidney functionCKD 3a Mild to moderate loss of kidney 45-59 functionCKD 3b Moderate to severe loss of 30-44 of kindey function CKD 4 Severe loss of kidney function 15-29CKD 5 Kidney failure <15Note: (go live 2024) the eGFR calculation was updated to the KD-EPI creatinine equation without a race factor to calculate theeGFR results. Performed By: #### G FR, CBC, CK, PHOS, ADIFF, ANEU, BMP, MG ####[address] [address] .NEUABSon 08-24-2024 Neutrophil, Absolute 10.6 10 3/mcL High 2.3-8.1 [facility] Comment on above: Performed By: #### G FR, CBC, CK, PHOS, ADIFF, ANEU, BMP, MG ####[place] [id number] BMPon 08-24-2024 BUN/Creatinine Ratio Unable to Calculate Normal 10.0-2 2.0 [facility] Comment on above: Result Comment: Unab le to calculate this test result accurately. Results used to calculate this test are outside the reportable range. Performed By: #### G FR, CBC, CK, PHOS, ADIFF, ANEU, BMP, MG ####[address] [address] Urea nitrogen [Mass/Vol] mg/dL Low 8.0-22.0 [facility] Comment on above: Performed By: #### G FR, CBC, CK, PHOS, ADIFF, ANEU, BMP, MG ####[address] [address] Calcium [Mass/Vol] 8.2 mg/dL Low 8.7-10.4 [facility] Comment on above: Performed By: #### G FR, CBC, CK, PHOS, ADIFF, ANEU, BMP, MG ####[place] [id number] Chloride [Moles/Vol] 101 mmol/L Normal 98-110 [facility] Comment on above: Performed By: #### G FR, CBC, CK, PHOS, ADIFF, ANEU, BMP, MG ####[address] [address] CO2 [Moles/Vol] 29 mmol/L Normal 22-32 [facility] Comment on above: Performed By: #### G FR, CBC, CK, PHOS, ADIFF, ANEU, BMP, MG ####[address] [address] Creatinine [Mass/Vol] 0.52 mg/dL Normal 0.50-1.20 [facility] Comment on above: Result Comment: Test ing performed on [employer] analyzer using enzymatic creatinine methodology. Performed By: #### G FR, CBC, CK, PHOS, ADIFF, ANEU, BMP, MG ####[address] [address] Electrolyte Balance 6.0 mEq/L Normal 4.0-15.0 [facility] Comment on above: Performed By: #### G FR, CBC, CK, PHOS, ADIFF, ANEU, BMP, MG ####[place] [address] Glucose [Mass/Vol] 151 mg/dL High 70-110 [facility] Comment on above: Performed By: #### G FR, CBC, CK, PHOS, ADIFF, ANEU, BMP, MG ####[place] [address] Potassium [Moles/Vol] 3.1 mmol/L Low 3.5-5.0 [facility] Comment on above: Performed By: #### G FR, CBC, CK, PHOS, ADIFF, ANEU, BMP, MG ####[place] [address] Sodium [Moles/Vol] 136 mmol/L Normal 136-145 [facility] Comment on above: Performed By: #### G FR, CBC, CK, PHOS, ADIFF, ANEU, BMP, MG ####[place] [address] CBCon 08-24-2024 Erythrocyte distribution width (RBC) [Ratio] 17.5 % High 11.5-15.5 [facility] Comment on above: Performed By: #### G FR, CBC, CK, PHOS, ADIFF, ANEU, BMP, MG ####[place] [address] Hematocrit (Bld) [Volume fraction] 25.3 % Low 34.0-46.0 [facility] Comment on above: Performed By: #### G FR, CBC, CK, PHOS, ADIFF, ANEU, BMP, MG ####[place] [address] Hgb 7.7 G/dL Low 12.0-16.0 [facility] Comment on above: Performed By: #### G FR, CBC, CK, PHOS, ADIFF, ANEU, BMP, MG ####[place] [address] MCH (RBC) [Entitic mass] 21.3 pg Low 27.0-33.0 [facility] Comment on above: Performed By: #### G FR, CBC, CK, PHOS, ADIFF, ANEU, BMP, MG ####[place] [address] MCHC 30.4 G/dL Low 32.0-36.0 [facility] Comment on above: Performed By: #### G FR, CBC, CK, PHOS, ADIFF, ANEU, BMP, MG ####[place] [address] MCV (RBC) [Entitic vol] 70.2 fL Low 80.0-99.0 [facility] Comment on above: Performed By: #### G FR, CBC, CK, PHOS, ADIFF, ANEU, BMP, MG ####[place] [address] Platelet 457 10 3/mcL High 150-450 [facility] Comment on above: Performed By: #### G FR, CBC, CK, PHOS, ADIFF, ANEU, BMP, MG ####[place] [address] Platelet mean volume (Bld) [Entitic vol] 8.5 fL Normal 6.6-10.5 [facility] Comment on above: Performed By: #### G FR, CBC, CK, PHOS, ADIFF, ANEU, BMP, MG ####[place] [address] RBC 3.61 10 6/mcL Low 4.10-5.30 [facility] Comment on above: Performed By: #### G FR, CBC, CK, PHOS, ADIFF, ANEU, BMP, MG ####[place] [address] WBC 12.6 10 3/mcL High 4.5-10.8 [facility] Comment on above: Performed By: #### G FR, CBC, CK, PHOS, ADIFF, ANEU, BMP, MG ####[place] [address] CBLon 08-24-2024 CBL Normal [facility] CKon 08-24-2024 CK [Catalytic activity/Vol] 47 U/L Normal 7-185 [facility] Comment on above: Performed By: #### G FR, CBC, CK, PHOS, ADIFF, ANEU, BMP, MG ####[place] [id number] [address] [place] [address] LABORATORYOrdered By: SYSTEM SYSTEM on 08-24-2024 CK [Catalytic activity/Vol] 47 U/L Normal 7 - 185 U/L AH ADM SS MGon 08-24-2024 Magnesium [Mass/Vol] 1.6 mg/dL Normal 1.6-2.4 [facility] Comment on above: Performed By: #### G FR, CBC, CK, PHOS, ADIFF, ANEU, BMP, MG ####[place] [id number] [address] [place] [address] No Panel Informationon 08-24 Microscopic examination of blood, culture Blood Culture: No Growth at 5 days. [facility] Work Phone: PHOSon 08-24-2024 Phosphate [Mass/Vol] 2.7 mg/dL Normal 2.4-5.1 [facility] Comment on above: Result Comment: No te - New Reference Range in effect 20 Performed By: #### G FR, CBC, CK, PHOS, ADIFF, ANEU, BMP, MG ####[place] [address] .GFRon 08-23-2024 Estimated Glomerular Filtration Rate 119 ml/min/1.73sqm Normal [facility] Comment on above: Result Comment: Stag es of Chronic Kidney Disease (CKD)Stage Description eGFR(ml/min/1.73 sq.m.)CKD 1 Normal kidney function or >=90 normal kindney function with possible kidney damage (ex. Proteinuria)CKD 2 Kidney damage with mild loss 60-89 of kidney functionCKD 3a Mild to moderate loss of kidney 45-59 functionCKD 3b Moderate to severe loss of 30-44 of kindey function CKD 4 Severe loss of kidney function 15-29CKD 5 Kidney failure <15Note: (go live 2024) the eGFR calculation was updated to the KD-EPI creatinine equation without a race factor to calculate theeGFR results. Performed By: #### B MP, PHOS, GFR, MG ####[address] [address] BMPon 08-23-2024 BUN/Creatinine Ratio Unable to Calculate Normal 10.0-2 2.0 [facility] Comment on above: Result Comment: Unab le to calculate this test result accurately. Results used to calculate this test are outside the reportable range. Performed By: #### B MP, PHOS, GFR, MG ####[place] [address] Urea nitrogen [Mass/Vol] mg/dL Low 8.0-22.0 [facility] Comment on above: Performed By: #### B MP, PHOS, GFR, MG ####[place] [address] Calcium [Mass/Vol] 8.2 mg/dL Low 8.7-10.4 [facility] Comment on above: Performed By: #### B MP, PHOS, GFR, MG ####[place] [address] Chloride [Moles/Vol] 99 mmol/L Normal 98-110 [facility] Comment on above: Performed By: #### B MP, PHOS, GFR, MG ####[place] [address] CO2 [Moles/Vol] 31 mmol/L Normal 22-32 [facility] Comment on above: Performed By: #### B MP, PHOS, GFR, MG ####[place] [address] Creatinine [Mass/Vol] 0.49 mg/dL Low 0.50-1.20 [facility] Comment on above: Result Comment: Test ing performed on [employer] analyzer using enzymatic creatinine methodology. Performed By: #### B MP, PHOS, GFR, MG ####[place] [address] Electrolyte Balance 6.0 mEq/L Normal 4.0-15.0 [facility] Comment on above: Performed By: #### B MP, PHOS, GFR, MG ####[address] [address] Glucose [Mass/Vol] 121 mg/dL High 70-110 [facility] Comment on above: Performed By: #### B MP, PHOS, GFR, MG ####[place] [id number] [address] [place] [address] Potassium [Moles/Vol] 3.0 mmol/L Low 3.5-5.0 [facility] Comment on above: Performed By: #### B MP, PHOS, GFR, MG ####[address] [address] Sodium [Moles/Vol] 136 mmol/L Normal 136-145 [facility] Comment on above: Performed By: #### B MP, PHOS, GFR, MG ####[address] [address] MGon 08-23-2024 Magnesium [Mass/Vol] 1.6 mg/dL Normal 1.6-2.4 [facility] Comment on above: Performed By: #### B MP, PHOS, GFR, MG ####[address] [address] PHOSon 08-23-2024 Phosphate [Mass/Vol] 2.7 mg/dL Normal 2.4-5.1 [facility] Comment on above: Result Comment: No te - New Reference Range in effect 20 Performed By: #### B MP, PHOS, GFR, MG ####[address] [address] .GFRon 08-22-2024 Estimated Glomerular Filtration Rate 117 ml/min/1.73sqm Normal [facility] Comment on above: Result Comment: Stag es of Chronic Kidney Disease (CKD)Stage Description eGFR(ml/min/1.73 sq.m.)CKD 1 Normal kidney function or >=90 normal kindney function with possible kidney damage (ex. Proteinuria)CKD 2 Kidney damage with mild loss 60-89 of kidney functionCKD 3a Mild to moderate loss of kidney 45-59 functionCKD 3b Moderate to severe loss of 30-44 of kindey function CKD 4 Severe loss of kidney function 15-29CKD 5 Kidney failure <15Note: (go live 2024) the eGFR calculation was updated to the KD-EPI creatinine equation without a race factor to calculate theeGFR results. Performed By: #### M G, BMP, GFR, PHOS ####[address] [address] BMPon 08-22-2024 BUN/Creatinine Ratio Unable to Calculate Normal 10.0-2 2.0 [facility] Comment on above: Result Comment: Unab le to calculate this test result accurately. Results used to calculate this test are outside the reportable range. Performed By: #### M G, BMP, GFR, PHOS ####[address] [address] Urea nitrogen [Mass/Vol] mg/dL Low 8.0-22.0 [facility] Comment on above: Performed By: #### Gene G, BMP, GFR, PHOS ####[address] [address] Calcium [Mass/Vol] 8.5 mg/dL Low 8.7-10.4 [facility] Comment on above: Performed By: #### Gene Watkins, BMP, GFR, PHOS ####[place] [id number] Chloride [Moles/Vol] 101 mmol/L Normal 98-110 [facility] Comment on above: Performed By: #### M G, BMP, GFR, PHOS ####[address] [address] CO2 [Moles/Vol] 32 mmol/L Normal 22-32 [facility] Comment on above: Performed By: #### M G, BMP, GFR, PHOS ####[address] [address] Creatinine [Mass/Vol] 0.52 mg/dL Normal 0.50-1.20 [facility] Comment on above: Result Comment: Test ing performed on [employer] analyzer using enzymatic creatinine methodology. Performed By: #### M G, BMP, GFR, PHOS ####[place] [id number] Electrolyte Balance 7.0 mEq/L Normal 4.0-15.0 [facility] Comment on above: Performed By: #### KRUPA Scott, GFR, PHOS ####[place] [address] Glucose [Mass/Vol] 103 mg/dL Normal 70-110 [facility] Comment on above: Performed By: #### Gene Watkins, KRUPA, GFR, PHOS ####[place] [address] Potassium [Moles/Vol] 3.4 mmol/L Low 3.5-5.0 [facility] Comment on above: Performed By: #### KRUPA Scott, GFR, PHOS ####[place] [address] Sodium [Moles/Vol] 140 mmol/L Normal 136-145 [facility] Comment on above: Performed By: #### Gene Watkins, KRUPA, GFR, PHOS ####[place] [address] CT ABDOMEN/PELVIS W/CONTRAST on 08-22-2024 CT ABDOMEN/PELVIS W/CONTRAST Normal [facility] LABORATORYOrdered By: Leo rao on 08-22-2024 LDose Vancomycin:(trough) See eMAR (08/22/24 10:26 PM) Normal Chemistry S LABORATORYOrdered By: SYSTEM SYSTEM on 08-22-2024 Vancomycin trough [Mass/Vol] 4.8 ug/mL Low 5.0 - 20.0 mcg/mL ADM SS MGon 08-22-2024 Magnesium [Mass/Vol] 1.8 mg/dL Normal 1.6-2.4 [facility] Comment on above: Performed By: #### KRUPA Scott, GFR, PHOS ####[place] [address] PHOSon 08-22-2024 Phosphate [Mass/Vol] 3.5 mg/dL Normal 2.4-5.1 [facility] Comment on above: Result Comment: No te - New Reference Range in effect 20 Performed By: #### M G, BMP, GFR, PHOS ####[place] [address] VANCTon 08-22-2024 LDose Vancomycin:(trough) See eMAR Normal [facility] Comment on above: Performed By: #### V ANCT ####[place] [address] Vancomycin Tr 4.8 mcg/mL Low 5.0-20.0 [facility] Comment on above: Performed By: #### V ANCT ####[place] [address] .GFRon 08-21-2024 Estimated Glomerular Filtration Rate 120 ml/min/1.73sqm Normal [facility] Comment on above: Result Comment: Stag es of Chronic Kidney Disease (CKD)Stage Description eGFR(ml/min/1.73 sq.m.)CKD 1 Normal kidney function or >=90 normal kindney function with possible kidney damage (ex. Proteinuria)CKD 2 Kidney damage with mild loss 60-89 of kidney functionCKD 3a Mild to moderate loss of kidney 45-59 functionCKD 3b Moderate to severe loss of 30-44 of kindey function CKD 4 Severe loss of kidney function 15-29CKD 5 Kidney failure <15Note: (go live 2024) the eGFR calculation was updated to the KD-EPI creatinine equation without a race factor to calculate theeGFR results. Performed By: #### M ORPH, GFR, BMP, DIFF, MG, CBC, PHOS ####[place] [address] .Manual Diffon 08-21-2024 Basophil %, Manual 1.0 % Normal 0.0-2.5 [facility] Comment on above: Performed By: #### M ORPH, GFR, BMP, DIFF, MG, CBC, PHOS ####[place] [address] Basophil, Abs Manual 0.1 10 3/mcL Normal 0.0-0.3 [facility] Comment on above: Performed By: #### M ORPH, GFR, BMP, DIFF, MG, CBC, PHOS ####[place] [address] Eosinophil %, Manual 1.0 % Normal 0.0-6.0 [facility] Comment on above: Performed By: #### M ORPH, GFR, BMP, DIFF, MG, CBC, PHOS ####[address] [address] Eosinophil, Abs Manual 0.1 10 3/mcL Normal 0.0-0.7 [facility] Comment on above: Performed By: #### M ORPH, GFR, BMP, DIFF, MG, CBC, PHOS ####[place] [address] Lymphocyte %, Manual 15.0 % Low 20.0-40.0 [facility] Comment on above: Performed By: #### M ORPH, GFR, BMP, DIFF, MG, CBC, PHOS ####[address] [address] Lymphocyte, Abs Manual 1.6 10 3/mcL Normal 0.9-4.3 [facility] Comment on above: Performed By: #### M ORPH, GFR, BMP, DIFF, MG, CBC, PHOS ####[address] [address] Monocyte %, Manual 7.0 % Normal 2.0-13.0 [facility] Comment on above: Performed By: #### M ORPH, GFR, BMP, DIFF, MG, CBC, PHOS ####[address] [address] Monocyte, Abs Manual 0.7 10 3/mcL Normal 0.1-1.4 [facility] Comment on above: Performed By: #### M ORPH, GFR, BMP, DIFF, MG, CBC, PHOS ####[address] [address] Myelocyte 1.0 % Normal [facility] Comment on above: Performed By: #### M ORPH, GFR, BMP, DIFF, MG, CBC, PHOS ####[address] [address] Neutrophil %, Manual 75.0 % Normal 50.0-75.0 [facility] Comment on above: Performed By: #### M ORPH, GFR, BMP, DIFF, MG, CBC, PHOS ####[place] [address] Neutrophil, Abs Manual 8.0 10 3/mcL Normal 2.3-8.1 [facility] Comment on above: Performed By: #### M ORPH, GFR, BMP, DIFF, MG, CBC, PHOS ####[place] [address] Nucleated RBC 0.0 /100 WBC [facility] Comment on above: Performed By: #### M ORPH, GFR, BMP, DIFF, MG, CBC, PHOS ####[place] [address] .Morphon 08-21-2024 Platelet Clumps Few [facility] Comment on above: Performed By: #### M ORPH, GFR, BMP, DIFF, MG, CBC, PHOS ####[place] [address] Platelet Estimate Normal [facility]IN Comment on above: Performed By: #### M ORPH, GFR, BMP, DIFF, MG, CBC, PHOS ####[place] [address] Anisocytosis Ql (Bld) 1+ [facility] MAIN Comment on above: Performed By: #### M ORPH, GFR, BMP, DIFF, MG, CBC, PHOS ####[place] [address] Microcytosis 2+ [facility]IN Comment on above: Performed By: #### M ORPH, GFR, BMP, DIFF, MG, CBC, PHOS ####[place] [address] Ovalocytes 1+ [facility] Comment on above: Performed By: #### M ORPH, GFR, BMP, DIFF, MG, CBC, PHOS ####[place] [address] Poik 1+ [facility]IN Comment on above: Performed By: #### M ORPH, GFR, BMP, DIFF, MG, CBC, PHOS ####[address] [address] Toxic Gran 1+ Normal [facility] Comment on above: Performed By: #### M ORPH, GFR, BMP, DIFF, MG, CBC, PHOS ####[address] [address] Vacuolated Neutrophils 1+ Normal [facility] Comment on above: Performed By: #### M ORPH, GFR, BMP, DIFF, MG, CBC, PHOS ####[address] [address] BMPon 08-21-2024 BUN/Creatinine Ratio Unable to Calculate Normal 10.0-2 2.0 [facility] Comment on above: Result Comment: Unab le to calculate this test result accurately. Results used to calculate this test are outside the reportable range. Performed By: #### M ORPH, GFR, BMP, DIFF, MG, CBC, PHOS ####[place] [id number] Urea nitrogen [Mass/Vol] mg/dL Low 8.0-22.0 [facility] Comment on above: Performed By: #### M ORPH, GFR, BMP, DIFF, MG, CBC, PHOS ####[address] [address] Calcium [Mass/Vol] 8.4 mg/dL Low 8.7-10.4 [facility] Comment on above: Performed By: #### M ORPH, GFR, BMP, DIFF, MG, CBC, PHOS ####[address] [address] Chloride [Moles/Vol] 102 mmol/L Normal 98-110 [facility] Comment on above: Performed By: #### M ORPH, GFR, BMP, DIFF, MG, CBC, PHOS ####[address] [address] CO2 [Moles/Vol] 32 mmol/L Normal 22-32 [facility] Comment on above: Performed By: #### M ORPH, GFR, BMP, DIFF, MG, CBC, PHOS ####[place] [address] Creatinine [Mass/Vol] 0.47 mg/dL Low 0.50-1.20 [facility] Comment on above: Result Comment: Test ing performed on [employer] analyzer using enzymatic creatinine methodology. Performed By: #### M ORPH, GFR, BMP, DIFF, MG, CBC, PHOS ####[place] [address] Electrolyte Balance 6.0 mEq/L Normal 4.0-15.0 [facility] MA[facility] Comment on above: Performed By: #### M ORPH, GFR, BMP, DIFF, MG, CBC, PHOS ####[place] [address] Glucose [Mass/Vol] 106 mg/dL Normal 70-110 [facility] Comment on above: Performed By: #### M ORPH, GFR, BMP, DIFF, MG, CBC, PHOS ####[place] [address] Potassium [Moles/Vol] 3.3 mmol/L Low 3.5-5.0 [facility] Comment on above: Performed By: #### M ORPH, GFR, BMP, DIFF, MG, CBC, PHOS ####[place] [address] Sodium [Moles/Vol] 140 mmol/L Normal 136-145 [facility] [facility] Comment on above: Performed By: #### M ORPH, GFR, BMP, DIFF, MG, CBC, PHOS ####[place] [address] CBCon 08-21-2024 WBC 10.6 10 3/mcL Normal 4.5-10.8 [facility] Comment on above: Performed By: #### M ORPH, GFR, BMP, DIFF, MG, CBC, PHOS ####[place] [address] Platelet 417 10 3/mcL Normal 150-450 [facility] Comment on above: Performed By: #### M ORPH, GFR, BMP, DIFF, MG, CBC, PHOS ####[address] [address] Platelet mean volume (Bld) [Entitic vol] 8.6 fL Normal 6.6-10.5 [facility] Comment on above: Performed By: #### M ORPH, GFR, BMP, DIFF, MG, CBC, PHOS ####[place] [address] Erythrocyte distribution width (RBC) [Ratio] 17.3 % High 11.5-15.5 [facility] Comment on above: Performed By: #### M ORPH, GFR, BMP, DIFF, MG, CBC, PHOS ####[place] [address] Hematocrit (Bld) [Volume fraction] 25.3 % Low 34.0-46.0 [facility] Comment on above: Performed By: #### M ORPH, GFR, BMP, DIFF, MG, CBC, PHOS ####[place] [address] Hgb 7.9 G/dL Low 12.0-16.0 [facility] Comment on above: Performed By: #### M ORPH, GFR, BMP, DIFF, MG, CBC, PHOS ####[place] [address] MCH (RBC) [Entitic mass] 22.1 pg Low 27.0-33.0 [facility] Comment on above: Performed By: #### M ORPH, GFR, BMP, DIFF, MG, CBC, PHOS ####[place] [address] MCHC 31.1 G/dL Low 32.0-36.0 [facility] Comment on above: Performed By: #### M ORPH, GFR, BMP, DIFF, MG, CBC, PHOS ####[place] [address] MCV (RBC) [Entitic vol] 71.1 fL Low 80.0-99.0 [facility] Comment on above: Performed By: #### M ORPH, GFR, BMP, DIFF, MG, CBC, PHOS ####[place] [address] RBC 3.56 10 6/mcL Low 4.10-5.30 [facility] Comment on above: Performed By: #### M ORPH, GFR, BMP, DIFF, MG, CBC, PHOS ####[id number] [place] [id number] LABORATORYOrdered By: SYSTEM SYSTEM on 08-21-2024 Anisocytosis Ql (Bld) 1+ *NA* (08/21/24 5:21 AM) Invalid Interpretation Code Workflow SS Basophils (Bld) [#/Vol] 0.1 103/mcL Normal 0.0 - 0.3 10^3/mcL AH Workflow SS Basophils/100 WBC (Bld) 1.0 % Normal 0.0 - 2.5 % AH Workflow SS Eosinophils (Bld) [#/Vol] 0.1 103/mcL Normal 0.0 - 0.7 10^3/mcL AH Workflow SS Eosinophils/100 WBC (Bld) 1.0 % Normal 0.0 - 6.0 % AH Workflow SS Lymphocytes (Bld) [#/Vol] 1.6 103/mcL Normal 0.9 - 4.3 10^3/mcL AH Workflow SS Lymphocytes/100 WBC (Bld) 15.0 % Low 20.0 - 40.0 % AH Workflow SS Microcytes Ql (Bld) 2+ *NA* (08/21/24 5:21 AM) Invalid Interpretation Code AH Workflow SS Monocytes (Bld) [#/Vol] 0.7 103/mcL Normal 0.1 - 1.4 10^3/mcL AH Workflow SS Monocytes/100 WBC (Bld) 7.0 % Normal 2.0 - 13.0 % AH Workflow SS Myelocytes/100 WBC (Bld) 1.0 % Invalid Interpretation Code AH Workflow SS Neutrophils (Bld) [#/Vol] 8.0 103/mcL Normal 2.3 - 8.1 10^3/mcL AH Workflow SS Neutrophils/100 WBC (Bld) 75.0 % Normal 50.0 - 75.0 % AH Workflow SS Nucleated RBC 0.0 /100 WBC Invalid Interpretation Code AH Workflow SS Ovalocytes LM Ql (Bld) 1+ *NA* (08/21/24 5:21 AM) Invalid Interpretation Code AH Workflow SS Platelet Clumps Few *NA* (08/21/24 5:21 AM) Invalid Interpretation Code Workflow SS Platelets LM Ql (Bld) Normal *NA* (08/21/24 5:21 AM) Invalid Interpretation Code AH Workflow SS Poikilocytosis LM Ql (Bld) 1+ *NA* (08/21/24 5:21 AM) Invalid Interpretation Code AH Workflow SS Toxic granules LM Ql (Bld) 1+ *NA* (08/21/24 5:21 AM) Invalid Interpretation Code AH Workflow SS Vacuolated Neutrophils 1+ *NA* (08/21/24 5:21 AM) Invalid Interpretation Code Workflow SS MGon 08-21-2024 Magnesium [Mass/Vol] 1.8 mg/dL Normal 1.6-2.4 [facility] Comment on above: Performed By: #### M ORPH, GFR, BMP, DIFF, MG, CBC, PHOS ####[place] [address] PHOSon 08-21-2024 Phosphate [Mass/Vol] 2.9 mg/dL Normal 2.4-5.1 [facility] Comment on above: Result Comment: No te - New Reference Range in effect 20 Performed By: #### M ORPH, GFR, BMP, DIFF, MG, CBC, PHOS ####[address] [address] .Auto Diffon 08-20-2024 Basophil, Absolute 0.0 10 3/mcL Normal 0.0-0.3 [facility] Comment on above: Performed By: #### C BC, MG, BMP, ANEU, PHOS, ADIFF, GFR ####[place] [address] Basophils/100 WBC (Bld) 0.3 % Normal 0.0-2.5 [facility] Comment on above: Performed By: #### C BC, MG, BMP, ANEU, PHOS, ADIFF, GFR ####[address] [address] Eosinophil, Absolute 0.0 10 3/mcL Normal 0.0-0.7 [facility] Comment on above: Performed By: #### C BC, MG, BMP, ANEU, PHOS, ADIFF, GFR ####[address] [address] Eosinophils/100 WBC (Bld) 0.2 % Normal 0.0-6.0 [facility] Comment on above: Performed By: #### C BC, MG, BMP, ANEU, PHOS, ADIFF, GFR ####[address] [address] Lymphocyte, Absolute 1.2 10 3/mcL Normal 0.9-4.3 [facility] Comment on above: Performed By: #### C BC, MG, BMP, ANEU, PHOS, ADIFF, GFR ####[address] [address] Lymphocytes/100 WBC (Bld) 17.6 % Low 20.0-40.0 [facility] Comment on above: Performed By: #### C BC, MG, BMP, ANEU, PHOS, ADIFF, GFR ####[address] [address] Monocyte, Absolute 1.2 10 3/mcL Normal 0.1-1.4 [facility] Comment on above: Performed By: #### C BC, MG, BMP, ANEU, PHOS, ADIFF, GFR ####[address] [address] Monocytes/100 WBC (Bld) 17.8 % High 2.0-13.0 [facility] Comment on above: Performed By: #### C BC, MG, BMP, ANEU, PHOS, ADIFF, GFR ####[address] [address] Neutrophils/100 WBC (Bld) 64.1 % Normal 50.0-75.0 [facility] Comment on above: Performed By: #### C BC, MG, BMP, ANEU, PHOS, ADIFF, GFR ####[address] [address] .GFRon 08-20-2024 GFR/1.73 sq M.predicted among non-blacks MDRD (S/P/Bld) [Vol rate/Area] mL/min/{1.73_m2} Normal [facility] Comment on above: Result Comment: Stag es of Chronic Kidney Disease (CKD)Stage Description eGFR(ml/min/1.73 sq.m.)CKD 1 Normal kidney function or >=90 normal kindney function with possible kidney damage (ex. Proteinuria)CKD 2 Kidney damage with mild loss 60-89 of kidney functionCKD 3a Mild to moderate loss of kidney 45-59 functionCKD 3b Moderate to severe loss of 30-44 of kindey function CKD 4 Severe loss of kidney function 15-29CKD 5 Kidney failure <15Note: (go live 2024) the eGFR calculation was updated to the KD-EPI creatinine equation without a race factor to calculate theeGFR results. Performed By: #### C BC, MG, BMP, ANEU, PHOS, ADIFF, GFR ####[address] [address] .NEUABSon 08-20-2024 Neutrophil, Absolute 4.4 10 3/mcL Normal 2.3-8.1 [facility] Comment on above: Performed By: #### C BC, MG, BMP, ANEU, PHOS, ADIFF, GFR ####[address] [address] BMPon 08-20-2024 BUN/Creatinine Ratio 13.3 ratio Normal 10.0-22.0 [facility] Comment on above: Performed By: #### C BC, MG, BMP, ANEU, PHOS, ADIFF, GFR ####[address] [address] Calcium [Mass/Vol] 8.1 mg/dL Low 8.7-10.4 [facility] Comment on above: Performed By: #### C BC, MG, BMP, ANEU, PHOS, ADIFF, GFR ####[address] [address] Chloride [Moles/Vol] 103 mmol/L Normal 98-110 [facility] Comment on above: Performed By: #### C BC, MG, BMP, ANEU, PHOS, ADIFF, GFR ####[address] [address] CO2 [Moles/Vol] 27 mmol/L Normal 22-32 [facility] Comment on above: Performed By: #### C BC, MG, BMP, ANEU, PHOS, ADIFF, GFR ####[place] [address] Creatinine [Mass/Vol] 0.45 mg/dL Low 0.50-1.20 [facility] Comment on above: Result Comment: Test ing performed on [employer] analyzer using enzymatic creatinine methodology. Performed By: #### C BC, MG, BMP, ANEU, PHOS, ADIFF, GFR ####[place] [address] Electrolyte Balance 7.0 mEq/L Normal 4.0-15.0 [facility] Comment on above: Performed By: #### C BC, MG, BMP, ANEU, PHOS, ADIFF, GFR ####[place] [address] Glucose [Mass/Vol] 88 mg/dL Normal 70-110 [facility] Comment on above: Performed By: #### C BC, MG, BMP, ANEU, PHOS, ADIFF, GFR ####[place] [address] Potassium [Moles/Vol] 3.3 mmol/L Low 3.5-5.0 [facility] Comment on above: Performed By: #### C BC, MG, BMP, ANEU, PHOS, ADIFF, GFR ####[place] [address] Sodium [Moles/Vol] 137 mmol/L Normal 136-145 [facility] Comment on above: Performed By: #### C BC, MG, BMP, ANEU, PHOS, ADIFF, GFR ####[place] [address] Urea nitrogen [Mass/Vol] 6.0 mg/dL Low 8.0-22.0 [facility] Comment on above: Performed By: #### C BC, MG, BMP, ANEU, PHOS, ADIFF, GFR ####[place] [address] CBCon 02-20-2025 Erythrocyte distribution width (RBC) [Ratio] 16.7 % High 11.5-15.5 [facility] Comment on above: Order Comment: recol lect cbc- clotted Performed By: #### C BC, MG, BMP, ANEU, PHOS, ADIFF, GFR ####[address] [address] Hematocrit (Bld) [Volume fraction] 25.0 % Low 34.0-46.0 [facility] Comment on above: Order Comment: recol lect cbc- clotted Performed By: #### C BC, MG, BMP, ANEU, PHOS, ADIFF, GFR ####[address] [address] Hgb 7.8 G/dL Low 12.0-16.0 [facility] Comment on above: Order Comment: recol lect cbc- clotted Performed By: #### C BC, MG, BMP, ANEU, PHOS, ADIFF, GFR ####[address] [address] MCH (RBC) [Entitic mass] 22.1 pg Low 27.0-33.0 [facility] Comment on above: Order Comment: recol lect cbc- clotted Performed By: #### C BC, MG, BMP, ANEU, PHOS, ADIFF, GFR ####[place] [address] MCHC 31.3 G/dL Low 32.0-36.0 [facility] Comment on above: Order Comment: recol lect cbc- clotted Performed By: #### C BC, MG, BMP, ANEU, PHOS, ADIFF, GFR ####[address] [address] MCV (RBC) [Entitic vol] 70.8 fL Low 80.0-99.0 [facility] Comment on above: Order Comment: recol lect cbc- clotted Performed By: #### C BC, MG, BMP, ANEU, PHOS, ADIFF, GFR ####[address] [address] Platelet 438 10 3/mcL Normal 150-450 [facility] Comment on above: Order Comment: recol lect cbc- clotted Performed By: #### C BC, MG, BMP, ANEU, PHOS, ADIFF, GFR ####[place] [address] Platelet mean volume (Bld) [Entitic vol] 8.5 fL Normal 6.6-10.5 [facility] Comment on above: Order Comment: recol lect cbc- clotted Performed By: #### C BC, MG, BMP, ANEU, PHOS, ADIFF, GFR ####[place] [address] RBC 3.53 10 6/mcL Low 4.10-5.30 [facility] Comment on above: Order Comment: recol lect cbc- clotted Performed By: #### C BC, MG, BMP, ANEU, PHOS, ADIFF, GFR ####[place] [address] WBC 6.9 10 3/mcL Normal 4.5-10.8 [facility] Comment on above: Order Comment: recol lect cbc- clotted Performed By: #### C BC, MG, BMP, ANEU, PHOS, ADIFF, GFR ####[place] [address] LABORATORYOrdered By: Sandy Zee on 08-20-2024 LDose Vancomycin:(trough) See eMAR (08/20/24 9:38 PM) Normal AH Chemistry S LABORATORYOrdered By: SYSTEM SYSTEM on 08-20-2024 Vancomycin trough [Mass/Vol] 5.9 ug/mL Normal 5.0 - 20.0 mcg/mL AH ADM SS MGon 08-20-2024 Magnesium [Mass/Vol] 1.8 mg/dL Normal 1.6-2.4 [facility] Comment on above: Performed By: #### C BC, MG, BMP, ANEU, PHOS, ADIFF, GFR ####[place] [address] PHOSon 08-20-2024 Phosphate [Mass/Vol] 2.4 mg/dL Normal 2.4-5.1 [facility] Comment on above: Result Comment: No te - New Reference Range in effect 20 Performed By: #### C BC, MG, BMP, ANEU, PHOS, ADIFF, GFR ####[place] [address] VANCTon 08-20-2024 LDose Vancomycin:(trough) See eMAR Normal [facility] Comment on above: Performed By: #### V ANCT ####[place] [address] Vancomycin Tr 5.9 mcg/mL Normal 5.0-20.0 [facility] Comment on above: Performed By: #### V ANCT ####[place] [address] .GFRon 08-19-2024 Estimated Glomerular Filtration Rate 115 ml/min/1.73sqm Normal [facility] Comment on above: Result Comment: Stag es of Chronic Kidney Disease (CKD)Stage Description eGFR(ml/min/1.73 sq.m.)CKD 1 Normal kidney function or >=90 normal kindney function with possible kidney damage (ex. Proteinuria)CKD 2 Kidney damage with mild loss 60-89 of kidney functionCKD 3a Mild to moderate loss of kidney 45-59 functionCKD 3b Moderate to severe loss of 30-44 of kindey function CKD 4 Severe loss of kidney function 15-29CKD 5 Kidney failure <15Note: (go live 2024) the eGFR calculation was updated to the KD-EPI creatinine equation without a race factor to calculate theeGFR results. Performed By: #### D IFF, CMP, LAC, MDW, MORPH, GFR, LIP, CBC ####[place] [address] .MDWon 08-19-2024 Monocyte Distribution Width 22.84 High 0.00-20.00 [facility] Comment on above: Result Comment: The predictive value of MDW for identifying sepsis in patients with hematological abnormalities has not been established Performed By: #### D IFF, CMP, LAC, MDW, MORPH, GFR, LIP, CBC ####[place] [address] .Manual Diffon 08-19-2024 Basophil %, Manual 1.0 % Normal 0.0-2.5 [facility] Comment on above: Performed By: #### D IFF, CMP, LAC, MDW, MORPH, GFR, LIP, CBC ####[address] [address] Basophil, Abs Manual 0.0 10 3/mcL Normal 0.0-0.3 [facility] Comment on above: Performed By: #### D IFF, CMP, LAC, MDW, MORPH, GFR, LIP, CBC ####[address] [address] Eosinophil %, Manual 0.0 % Normal 0.0-6.0 [facility] Comment on above: Performed By: #### D IFF, CMP, LAC, MDW, MORPH, GFR, LIP, CBC ####[address] [address] Eosinophil, Abs Manual 0.0 10 3/mcL Normal 0.0-0.7 [facility] Comment on above: Performed By: #### D IFF, CMP, LAC, MDW, MORPH, GFR, LIP, CBC ####[address] [address] Lymphocyte %, Manual 18.0 % Low 20.0-40.0 [facility] Comment on above: Performed By: #### D IFF, CMP, LAC, MDW, MORPH, GFR, LIP, CBC ####[address] [address] Lymphocyte, Abs Manual 0.6 10 3/mcL Low 0.9-4.3 [facility] Comment on above: Performed By: #### D IFF, CMP, LAC, MDW, MORPH, GFR, LIP, CBC ####[place] [id number] Monocyte %, Manual 28.0 % High 2.0-13.0 [facility] Comment on above: Performed By: #### D IFF, CMP, LAC, MDW, MORPH, GFR, LIP, CBC ####[place] [id number] Monocyte, Abs Manual 0.9 10 3/mcL Normal 0.1-1.4 [facility] Comment on above: Performed By: #### D IFF, CMP, LAC, MDW, MORPH, GFR, LIP, CBC ####[place] [address] Neutrophil %, Manual 53.0 % Normal 50.0-75.0 [facility] Comment on above: Performed By: #### D IFF, CMP, LAC, MDW, MORPH, GFR, LIP, CBC ####[place] [address] Neutrophil, Abs Manual 1.7 10 3/mcL Low 2.3-8.1 [facility] Comment on above: Performed By: #### D IFF, CMP, LAC, MDW, MORPH, GFR, LIP, CBC ####[place] [address] Nucleated RBC 0.0 /100 WBC Normal [facility] Comment on above: Performed By: #### D IFF, CMP, LAC, MDW, MORPH, GFR, LIP, CBC ####[place] [address] .Morphon 08-19-2024 Platelet Estimate Slt Increased Normal [facility] Comment on above: Performed By: #### D IFF, CMP, LAC, MDW, MORPH, GFR, LIP, CBC ####[place] [address] Anisocytosis Ql (Bld) 1+ Normal [facility] Comment on above: Performed By: #### D IFF, CMP, LAC, MDW, MORPH, GFR, LIP, CBC ####[place] [address] Hypochrom 1+ Normal [facility] Comment on above: Performed By: #### D IFF, CMP, LAC, MDW, MORPH, GFR, LIP, CBC ####[place] [address] Macrocytosis 2+ Normal [facility] Comment on above: Performed By: #### D IFF, CMP, LAC, MDW, MORPH, GFR, LIP, CBC ####[address] [address] Ovalocytes 1+ Normal [facility] Comment on above: Performed By: #### D IFF, CMP, LAC, MDW, MORPH, GFR, LIP, CBC ####[place] [address] Poik 1+ Normal [facility] Comment on above: Performed By: #### D IFF, CMP, LAC, MDW, MORPH, GFR, LIP, CBC ####[place] [address] APTTon 08-19-2024 aPTT Coag (Bld) [Time] 21.8 s Low 25.0-35.0 [facility] Comment on above: Result Comment: For Heparin anticoagulation therapy, the recommendedtherapeutic range is: 54-77 seconds (APTT Correlationwith Anti-Xa therapeutic range of 0.3-0.7 units/ml).PLEASE REFERENCE THE PHARMACY PROTOCOL FOR DOSING. Performed By: #### A PTT, LAC ####[place] [address] CBCon 08-19-2024 Erythrocyte distribution width (RBC) [Ratio] 16.7 % High 11.5-15.5 [facility] Comment on above: Order Comment: clott ed, recollect Performed By: #### D IFF, CMP, LAC, MDW, MORPH, GFR, LIP, CBC ####[place] [address] Hematocrit (Bld) [Volume fraction] 27.7 % Low 34.0-46.0 [facility] Comment on above: Order Comment: clott ed, recollect Performed By: #### D IFF, CMP, LAC, MDW, MORPH, GFR, LIP, CBC ####[place] [address] Hgb 8.7 G/dL Low 12.0-16.0 [facility] Comment on above: Order Comment: clott ed, recollect Performed By: #### D IFF, CMP, LAC, MDW, MORPH, GFR, LIP, CBC ####[place] [address] MCH (RBC) [Entitic mass] 22.1 pg Low 27.0-33.0 [facility] Comment on above: Order Comment: clott ed, recollect Performed By: #### D IFF, CMP, LAC, MDW, MORPH, GFR, LIP, CBC ####[place] [address] MCHC 31.2 G/dL Low 32.0-36.0 [facility] Comment on above: Order Comment: clott ed, recollect Performed By: #### D IFF, CMP, LAC, MDW, MORPH, GFR, LIP, CBC ####[place] [address] MCV (RBC) [Entitic vol] 70.9 fL Low 80.0-99.0 [facility] Comment on above: Order Comment: clott ed, recollect Performed By: #### D IFF, CMP, LAC, MDW, MORPH, GFR, LIP, CBC ####[place] [address] Platelet 451 10 3/mcL High 150-450 [facility] Comment on above: Order Comment: clott ed, recollect Performed By: #### D IFF, CMP, LAC, MDW, MORPH, GFR, LIP, CBC ####[place] [address] Platelet mean volume (Bld) [Entitic vol] 7.9 fL Normal 6.6-10.5 [facility] Comment on above: Order Comment: clott ed, recollect Performed By: #### D IFF, CMP, LAC, MDW, MORPH, GFR, LIP, CBC ####[place] [address] RBC 3.92 10 6/mcL Low 4.10-5.30 [facility] Comment on above: Order Comment: clott ed, recollect Performed By: #### D IFF, CMP, LAC, MDW, MORPH, GFR, LIP, CBC ####[place] [address] WBC 3.2 10 3/mcL Low 4.5-10.8 [facility] Comment on above: Order Comment: clott ed, recollect Performed By: #### D IFF, CMP, LAC, MDW, MORPH, GFR, LIP, CBC ####[address] [address] CMPon 08-19-2024 Albumin Level 3.0 G/dL Low 3.2-4.8 [facility] Comment on above: Performed By: #### D IFF, CMP, LAC, MDW, MORPH, GFR, LIP, CBC ####[place] [address] Albumin/Globulin [Mass ratio] 0.7 {ratio} Low 0.9-1.6 [facility] Comment on above: Performed By: #### D IFF, CMP, LAC, MDW, MORPH, GFR, LIP, CBC ####[address] [address] ALP [Catalytic activity/Vol] 108 U/L Normal 38-126 [facility] Comment on above: Performed By: #### D IFF, CMP, LAC, MDW, MORPH, GFR, LIP, CBC ####[address] [address] ALT [Catalytic activity/Vol] 20 U/L Normal 10-49 [facility] Comment on above: Performed By: #### D IFF, CMP, LAC, MDW, MORPH, GFR, LIP, CBC ####[address] [address] AST [Catalytic activity/Vol] 24 U/L Normal 8-34 [facility] Comment on above: Performed By: #### D IFF, CMP, LAC, MDW, MORPH, GFR, LIP, CBC ####[address] [address] Bili Total 1.00 mg/dL Normal 0.20-1.20 [facility] Comment on above: Result Comment: Use of this assay is not recommended for patients undergoing treatment with eltrombopag due to the potential for falsely elevated results. Performed By: #### D IFF, CMP, LAC, MDW, MORPH, GFR, LIP, CBC ####[address] [address] BUN/Creatinine Ratio 14.0 ratio Normal 10.0-22.0 [facility] Comment on above: Performed By: #### D IFF, CMP, LAC, MDW, MORPH, GFR, LIP, CBC ####[address] [address] Calcium [Mass/Vol] 8.9 mg/dL Normal 8.7-10.4 [facility] Comment on above: Performed By: #### D IFF, CMP, LAC, MDW, MORPH, GFR, LIP, CBC ####[address] [address] Chloride [Moles/Vol] 99 mmol/L Normal 98-110 [facility] Comment on above: Performed By: #### D IFF, CMP, LAC, MDW, MORPH, GFR, LIP, CBC ####[address] [address] CO2 [Moles/Vol] 25 mmol/L Normal 22-32 [facility] Comment on above: Performed By: #### D IFF, CMP, LAC, MDW, MORPH, GFR, LIP, CBC ####[place] [id number] Creatinine [Mass/Vol] 0.57 mg/dL Normal 0.50-1.20 [facility] Comment on above: Result Comment: Test ing performed on [employer] analyzer using enzymatic creatinine methodology. Performed By: #### D IFF, CMP, LAC, MDW, MORPH, GFR, LIP, CBC ####[address] [address] Electrolyte Balance 12.0 mEq/L Normal 4.0-15.0 [facility] Comment on above: Performed By: #### D IFF, CMP, LAC, MDW, MORPH, GFR, LIP, CBC ####[address] [address] Globulin 4.6 G/dL High 1.5-3.8 [facility] Comment on above: Performed By: #### D IFF, CMP, LAC, MDW, MORPH, GFR, LIP, CBC ####[place] [address] Glucose [Mass/Vol] 131 mg/dL High 70-110 [facility] Comment on above: Performed By: #### D IFF, CMP, LAC, MDW, MORPH, GFR, LIP, CBC ####[place] [address] Potassium [Moles/Vol] 3.3 mmol/L Low 3.5-5.0 [facility] Comment on above: Performed By: #### D IFF, CMP, LAC, MDW, MORPH, GFR, LIP, CBC ####[place] [address] Sodium [Moles/Vol] 136 mmol/L Normal 136-145 [facility] Comment on above: Performed By: #### D IFF, CMP, LAC, MDW, MORPH, GFR, LIP, CBC ####[place] [address] Total Protein 7.6 G/dL Normal 5.7-8.2 [facility] Comment on above: Performed By: #### D IFF, CMP, LAC, MDW, MORPH, GFR, LIP, CBC ####[place] [address] Urea nitrogen [Mass/Vol] 8.0 mg/dL Normal 8.0-22.0 [facility] Comment on above: Performed By: #### D IFF, CMP, LAC, MDW, MORPH, GFR, LIP, CBC ####[place] [address] CT ABD/PELVIS W/ IV CONTRAST ONLYon 08-19-2024 CT ABD/PELVIS W/ IV CONTRAST ONLY Normal [facility] CVFLURVon 08-19-2024 FLU A PCR Negative Normal Negative [facility] Comment on above: Result Comment: [place] [id number] Performed By: #### C VFLURV ####[place] [address] FLU B PCR Negative Normal Negative [facility] Comment on above: Result [place]: [place] [id number] Performed By: #### C VFLURV ####[place] [address] RSV PCR Negative Normal Negative [facility] Comment on above: [place]: [place] [id number] Performed By: #### C VFLURV ####[place] [address] SARS-CoV-2 (COVID-19) RNA EUGENE+probe Ql (Unsp spec) Negative Normal Negative [facility] Comment on above: Result Comment: Note s [id number] test has been authorized by FDA under an EUA for use by authorized laboratories and has not been FDA cleared or approved.Results from the Xpert Xpress SARS-CoV-2/Flu/RSV or Xpert Xpress SARS-CoV-2 only test should be correlated with the clinical history, epidemiological data, and other data available to the clinician evaluating the patient. Performance of the Xpert Xpress SARS-CoV-2/Flu/RSV or Xpert Xpress SARS-CoV-2 only test has only been established in nasopharyngeal swab specimens.Erroneous test results might occur from improper specimen collection; failure to follow the recommended sample collection, handling, and storage procedures; technical error; or sample mix-up.False negative results may occur if virus is present at levels below the analytical limit of detection.Viral nucleic acid may persist in vivo, independent of virus viability. Detection of analyte target(s) does not imply that the corresponding virus(es) are infectious or are the causative agents for clinical symptoms.Recent patient exposure to FluMist or other live attenuated influenza vaccines may cause inaccurate positive results. Performed By: #### C VFLURV ####[place] [address] LABORATORYOrdered By: SYSTEM SYSTEM on 08-19-2024 aPTT Coag (Bld) [Time] 21.8 s Low 25.0 - 35.0 seconds [facility] Comment on above: Interpretive Data: F or Heparin anticoagulation therapy, the recommended therapeutic range is: 54-77 seconds (APTT Correlation with Anti-Xa therapeutic range of 0.3-0.7 units/ml). PLEASE REFERENCE THE PHARMACY PROTOCOL FOR DOSING. Lactate [Moles/Vol] 1.5 mmol/L Normal 0.5 - 2. 2 mmol/L AH ADM SS Anisocytosis Ql (Bld) 1+ *NA* (08/19/24 5:39 AM) Invalid Interpretation Code AH Workflow SS Basophils (Bld) [#/Vol] 0.0 103/mcL Normal 0.0 - 0.3 10^3/mcL AH Workflow SS Basophils/100 WBC (Bld) 1.0 % Normal 0.0 - 2.5 % AH Workflow SS Eosinophils (Bld) [#/Vol] 0.0 103/mcL Normal 0.0 - 0.7 10^3/mcL AH Workflow SS Eosinophils/100 WBC (Bld) 0.0 % Normal 0.0 - 6.0 % AH Workflow SS Hypochromia Ql (Bld) 1+ *NA* (08/19/24 5:39 AM) Invalid Interpretation Code AH Workflow SS Lymphocytes (Bld) [#/Vol] 0.6 103/mcL Low 0.9 - 4.3 10^3/mcL AH Workflow SS Lymphocytes/100 WBC (Bld) 18.0 % Low 20.0 - 40.0 % AH Workflow SS Macrocytes Ql (Bld) 2+ *NA* (08/19/24 5:39 AM) Invalid Interpretation Code AH Workflow SS Monocyte distribution width Auto (Bld) [Entitic vol] 22.84 1 High 0.00 - 20.00 AH Workflow SS Comment on above: Result Comment: The predictive value of MDW for identifying sepsis in patients with hematological abnormalities has not been established Monocytes (Bld) [#/Vol] 0.9 103/mcL Normal 0.1 - 1.4 10^3/mcL AH Workflow SS Monocytes/100 WBC (Bld) 28.0 % High 2.0 - 13.0 % AH Workflow SS Neutrophils (Bld) [#/Vol] 1.7 103/mcL Low 2.3 - 8.1 10^3/mcL AH Workflow SS Neutrophils/100 WBC (Bld) 53.0 % Normal 50.0 - 75.0 % AH Workflow SS Nucleated RBC 0.0 /100 WBC Invalid Interpretation Code AH Workflow SS Ovalocytes LM Ql (Bld) 1+ *NA* (08/19/24 5:39 AM) Invalid Interpretation Code AH Workflow SS Platelets LM Ql (Bld) Slt Increased *NA* (08/19/24 5:39 AM) Invalid Interpretation Code AH Workflow SS Poikilocytosis LM Ql (Bld) 1+ *NA* (08/19/24 5:39 AM) Invalid Interpretation Code AH Workflow SS Albumin BCP dye [Mass/Vol] 3.0 G/dL Low 3.2 - 4.8 G/dL AH ADM SS Albumin/Globulin [Mass ratio] 0.7 {ratio} Low 0.9 - 1.6 ratio AH ADM SS ALP [Catalytic activity/Vol] 108 U/L Normal 38 - 126 U/L AH ADM SS ALT No additional P-5'-P [Catalytic activity/Vol] 20 U/L Normal 10 - 49 U/L AH ADM SS AST [Catalytic activity/Vol] 24 U/L Normal 8 - 34 U/L AH ADM SS Bilirubin [Mass/Vol] 1.00 mg/dL Normal 0.20 - 1.20 mg/dL AH ADM SS Comment on above: Interpretive Data: U se of this assay is not recommended for patients undergoing treatment with eltrombopag due to the potential for falsely elevated results. Globulin 4.6 G/dL High 1.5 - 3.8 G/dL AH ADM SS Lactate [Moles/Vol] 1.4 mmol/L Normal 0.5 - 2. 2 mmol/L ADM SS Lipase [Catalytic activity/Vol] 27 U/L Normal 12 - 53 U/L AH ADM SS Comment on above: Interpretive Data: * *Note - New Reference Range in effect 20 Protein [Mass/Vol] 7.6 G/dL Normal 5.7 - 8.2 G/dL ADM SS LABORATORYOrdered By: James mckoy on 08-19-2024 MRSA (PCR) Not Detected 1 (08/19/24 8:13 AM) Normal Not Detected Auto Viro/Sero SS Comment on above: Result Comment: [place] [id number] MRSA PCR Int MRSA DNA not detecte d by Real-Time Polymerase Chain Reaction (PCR). A negative result may be due to intermittent colonization. Colonization may vary depending on patient treatment, patient status, or exposure to high-risk environments.As with all PCR based in vitro diagnostic tests, extremely low levels of target below the limit of detection of the assay may be detected, but results may not be reproducible. Invalid Interpretation Code Auto Viro/Sero SS LABORATORYOrdered By: Randy Norris on 02-19-2025 PT Coag (PPP) [Time] 19.4 s High 9.0 - 1 4.4 seconds AH Coagulation S Comment on above: Interpretive Data: E ffective 01/13/08, Protime results may be affected by some antibiotics (i.e. Ciprofloxacin, Azithromycin, Bactrim) which may potentiate the action of oral anticoagulants, with further increases in Protime/INR. PT International Ratio 1.7 ratio Invalid Interpretation Code AH Coagulation S Comment on above: Interpretive Data: T he [employer] (CHEST, 1991, 102:[id number]) recommended therapeutic range for oral anticoagulant therapy is: LOW RISK: Prophylaxis of venous thrombosis INR: 2.0-3.0 Treatment of pulmonary embolism 2.0-3.0 Prevention of systemic embolism 2.0-3.0 HIGH RISK: Mechanical prosthetic valves 2.5-3.5 LABORATORYOrdered By: Manju Soares on 08-19-2024 FLUAV RNA EUGENE+probe Ql (Resp) Negative 25 (08/19/24 5:01 AM) Normal Negative AH Auto Viro/Sero SS Comment on above: Result Comment: [place] [id number] FLUBV RNA EUGENE+probe Ql (Resp) Negative 27 (08/19/24 5:01 AM) Normal Negative AH Auto Viro/Sero SS Comment on above: Result Comment: [place] [id number] RSV PCR Negative 29 (08/19/24 5:01 AM) Normal Negative AH Auto Viro/Sero SS Comment on above: Result Comment: [place] s [id number] SARS-CoV-2 (COVID-19) RNA EUGENE+probe Ql (Resp) Negative 22, 23 (08/19/24 5:01 AM) Normal Negative AH Auto Viro/Sero SS Comment on above: Interpretive Data: T his test has been authorized by FDA under an EUA for use by authorized laboratories and has not been FDA cleared or approved. Results from the Xpert Xpress SARS-CoV-2/Flu/RSV or Xpert Xpress SARS-CoV-2 only test should be correlated with the clinical history, epidemiological data, and other data available to the clinician evaluating the patient. Performance of the Xpert Xpress SARS-CoV-2/Flu/RSV or Xpert Xpress SARS-CoV-2 only test has only been established in nasopharyngeal swab specimens. Erroneous test results might occur from improper specimen collection; failure to follow the recommended sample collection, handling, and storage procedures; technical error; or sample mix-up.False negative results may occur if virus is present at levels below the analytical limit of detection. Viral nucleic acid may persist in vivo, independent of virus viability. Detection of analyte target(s) does not imply that the corresponding virus(es) are infectious or are the causative agents for clinical symptoms.Recent patient exposure to FluMist or other live attenuated influenza vaccines may cause inaccurate positive results. Result Comment: [place] [id number] LABORATORYOrdered By: Carin Cordon on 08-19-2024 Appearance (U) Clear (08/19/24 4:55 AM) Normal Clear AH Auto Urine SS Bilirubin Ql (U) Negative (08/19/24 4:55 AM) Normal Neg-Trace AH Auto Urine SS Color (U) Yellow (08/19/24 4:55 AM) Normal AH Auto Urine SS Glucose Test strip (U) [Mass/Vol] Negative Normal Negative AH Auto Urine SS Hemoglobin Auto test strip (U) [Mass/Vol] Trace (08/19/24 4:55 AM) Normal Neg-Trace AH Auto Urine SS Ketones Ql (U) Negative Normal Neg-Trace AH Auto Urine SS UA Leuk Est Trace *NA* (08/19/24 4:55 AM) Invalid Interpretation Code Negative AH Auto Urine SS UA Nitrite Negative (08/19/24 4:55 AM) Normal Negative AH Auto Urine SS UA pH 7.5 (08/19/24 4:55 AM) Normal 5.0 - 8.0 AH Auto Urine SS UA Protein Trace mg/dL Normal Negative AH Auto Urine SS UA Spec Grav 1.015 (08/19/24 4:55 AM) Normal 1.006-1.02 9 AH Auto Urine SS UA Specimen Type Void (08/19/24 4:55 AM) Normal Auto Urine SS UA Urobilinogen 1.0 E.U./dL Normal 0.2-1.0 AH Auto Urine SS LACon 08-19-2024 Lactic Acid Lvl 1.5 mmol/L Normal 0.5-2.2 [facility] Comment on above: Performed By: #### A PTT, LAC ####[place] [address] Lactic Acid Lvl 1.4 mmol/L Normal 0.5-2.2 [facility] Comment on above: Performed By: #### D IFF, CMP, LAC, MDW, MORPH, GFR, LIP, CBC ####[place] [address] LIPon 08-19-2024 Lipase Level 27 U/L Normal 12-53 [facility] Comment on above: Result Comment: No te - New Reference Range in effect 20 Performed By: #### D IFF, CMP, LAC, MDW, MORPH, GFR, LIP, CBC ####[place] [address] MRSAPCRon 08-19-2024 MRSA (PCR) Not detected Normal Not Detected [facility] Comment on above: Result Comment: [place] [id number] Performed By: #### M RSAPCR ####[place] [address] MRSA PCR Int Normal [facility] Comment on above: Result Comment: MRSA DNA not detected by Real-Time Polymerase Chain Reaction (PCR). A negative result may be due to intermittent colonization. Colonization may vary depending on patient treatment, patient status, or exposure to high-risk environments.As with all PCR based in vitro diagnostic tests, extremely low levels of target below the limit of detection of the assay may be detected, but results may not be reproducible.See Below Performed By: #### M RSAPCR ####[place] [address] No Panel Informationon 08-19 Microscopic examination of blood, culture Blood Culture: No Growth at 5 days. [facility] Work Phone: Microscopic examination of blood, culture Blood Culture: No Growth at 5 days. [facility] Work Phone: PROon 08-19-2024 INR Coag (PPP) [Relative time] 1.7 {INR} Normal [facility] Comment on above: Result Comment: [employer] (CHEST, 1992, 102:312S-25S)recommended therapeutic range for oral anticoagulant therapy is:LOW RISK: Prophylaxis of venous thrombosis INR: 2.0-3.0 Treatment of pulmonary embolism 2.0-3.0 Prevention of systemic embolism 2.0-3.0HIGH RISK: Mechanical prosthetic valves 2.5-3.5 PT Coag (PPP) [Time] 19.4 s High 9.0-14.4 [facility] Comment on above: Result Comment: [place] ctive 01/13/08, Protime results may be affected by some antibiotics (i.e. Ciprofloxacin, Azithromycin, Bactrim) which may potentiate the action of oral anticoagulants, with further increases in Protime/INR. UAon 08-19-2024 Color (U) Yellow Normal [facility] Comment on above: Performed By: #### U A ####[place] [address] Glucose (U) [Mass/Vol] Negative Normal Negative [facility] Comment on above: Performed By: #### U A ####[place] [address] Ketones Ql (U) Negative Normal Neg-Trace [facility] Comment on above: Performed By: #### U A ####[place] [address] UA Appear Clear Normal Clear [facility] Comment on above: Performed By: #### U A ####[place] [address] UA Blood Trace Normal Neg-Trace [facility] Comment on above: Performed By: #### U A ####[place] [address] UA Leuk Est Trace Normal Negative [facility] Comment on above: Performed By: #### U A ####[place] [address] UA Nitrite Negative Normal Negative [facility] Comment on above: Performed By: #### U A ####[place] [address] UA pH 7.5 Normal 5.0 - 8.0 [facility] Comment on above: Performed By: #### U A ####[place] [address] UA Protein Trace Normal Negative [facility] Comment on above: Performed By: #### U A ####[place] [address] UA Spec Grav 1.015 Normal 1.006-1.02 9 [facility] Comment on above: Performed By: #### U A ####[place] [address] UA Specimen Type Void Normal [facility] Comment on above: Performed By: #### U A ####[place] [address] UA Urobilinogen 1.0 E.U./dL Normal 0.2-1.0 [facility] Comment on above: Performed By: #### U A ####[place] [address] Urobilinogen (U) [Mass/Vol] Negative Normal Neg-Trace [facility] Comment on above: Performed By: #### U A ####[place] [address] .Auto Diffon 08-18-2024 Basophil, Absolute 0.0 10 3/mcL Normal 0.0-0.3 [facility] Comment on above: Performed By: #### F ES, ANEU, ADIFF, GFR, FOL, B12, CMP, MORPH, CBC, FERR ####[place] [address] Eosinophil, Absolute 0.0 10 3/mcL Normal 0.0-0.7 [facility] Comment on above: Performed By: #### F ES, ANEU, ADIFF, GFR, FOL, B12, CMP, MORPH, CBC, FERR ####[place] [address] Lymphocyte, Absolute 0.9 10 3/mcL Normal 0.9-4.3 [facility] Comment on above: Performed By: #### F ES, ANEU, ADIFF, GFR, FOL, B12, CMP, MORPH, CBC, FERR ####[place] [address] Monocyte, Absolute 0.5 10 3/mcL Normal 0.1-1.4 [facility] Comment on above: Performed By: #### F ES, ANEU, ADIFF, GFR, FOL, B12, CMP, MORPH, CBC, FERR ####[address] [address] .Auto DiffOrdered By: SYSTEM SYSTEM on 08-18-2024 Basophils/100 WBC (Bld) 0.6 % Normal 0.0-2.5 A H Workflow SS Comment on above: Performed By: #### F ES, ANEU, ADIFF, GFR, FOL, B12, CMP, MORPH, CBC, FERR ####[address] [address] Eosinophils/100 WBC (Bld) 2.0 % Normal 0.0-6.0 AH Workflow SS Comment on above: Performed By: #### F ES, ANEU, ADIFF, GFR, FOL, B12, CMP, MORPH, CBC, FERR ####[address] [address] Lymphocytes/100 WBC (Bld) 41.2 % High 20.0-40.0 AH Workflow SS Comment on above: Performed By: #### F ES, ANEU, ADIFF, GFR, FOL, B12, CMP, MORPH, CBC, FERR ####[address] [address] Monocytes/100 WBC (Bld) 22.7 % High 2.0-13.0 A H Workflow SS Comment on above: Performed By: #### F ES, ANEU, ADIFF, GFR, FOL, B12, CMP, MORPH, CBC, FERR ####[address] [address] Neutrophils/100 WBC (Bld) 33.5 % Low 50.0-75.0 AH Workflow SS Comment on above: Performed By: #### F ES, ANEU, ADIFF, GFR, FOL, B12, CMP, MORPH, CBC, FERR ####[address] [address] .GFROrdered By: SYSTEM LumetricsE M on 08-18-2024 Estimated Glomerular Filtration Rate 116 ml/min/1.73sqm Normal AH ADM SS Comment on above: Interpretive Data: Stages of Chronic Kidney Disease (CKD) Stage Description eGFR(ml/min/1.73 sq.m.) CKD 1 Normal kidney function or >=90 normal kindney function with possible kidney damage (ex. Proteinuria) CKD 2 Kidney damage with mild loss 60-89 of kidney function CKD 3a Mild to moderate loss of kidney 45-59 function CKD 3b Moderate to severe loss of 30-44 of kindey function CKD 4 Severe loss of kidney function 15-29 CKD 5 Kidney failure <15 Note: ( live 08/04/2024) the eGFR calculation was updated to the 2020 CKD-EPI creatinine equation without a race factor to calculate the eGFR results. Result Comment: Stag es of Chronic Kidney Disease (CKD)Stage Description eGFR(ml/min/1.73 sq.m.)CKD 1 Normal kidney function or >=90 normal kindney function with possible kidney damage (ex. Proteinuria)CKD 2 Kidney damage with mild loss 60-89 of kidney functionCKD 3a Mild to moderate loss of kidney 45-59 functionCKD 3b Moderate to severe loss of 30-44 of kindey function CKD 4 Severe loss of kidney function 15-29CKD 5 Kidney failure <15Note: ( live 08/04/2024) the eGFR calculation was updated to the KD-EPI creatinine equation without a race factor to calculate theeGFR results. Performed By: #### F ES, ANEU, ADIFF, GFR, FOL, B12, CMP, MORPH, CBC, FERR ####[place] [address] .Morphon 08-18-2024 Anisocytosis Ql (Bld) 1+ Normal [facility] Comment on above: Performed By: #### F ES, ANEU, ADIFF, GFR, FOL, B12, CMP, MORPH, CBC, FERR ####[place] [address] Microcytosis 2+ Normal [facility] Comment on above: Performed By: #### F ES, ANEU, ADIFF, GFR, FOL, B12, CMP, MORPH, CBC, FERR ####[place] [address] Platelet Estimate Normal [facility] Comment on above: Performed By: #### F ES, ANEU, ADIFF, GFR, FOL, B12, CMP, MORPH, CBC, FERR ####[place] [address] .NEUABSon 08-18-2024 Neutrophil, Absolute 0.7 10 3/mcL Low 2.3-8.1 [facility] Comment on above: Performed By: #### F ES, ANEU, ADIFF, GFR, FOL, B12, CMP, MORPH, CBC, FERR ####[place] [address] [id number] By: SYSTEM SYSTEM on 08-18-2024 Cobalamin (Vitamin B12) [Mass/Vol] 1316 pg/mL High 211-911 AH ADM SS Comment on above: Performed By: #### F ES, ANEU, ADIFF, GFR, FOL, B12, CMP, MORPH, CBC, FERR ####[place] [address] CBCOrdered By: SYSTEM SYSTEM on 08-18-2024 Erythrocyte distribution width (RBC) [Ratio] 16.8 % High 11.5-15.5 AH Workflow SS Comment on above: Performed By: #### F ES, ANEU, ADIFF, GFR, FOL, B12, CMP, MORPH, CBC, FERR ####[place] [address] Hematocrit (Bld) [Volume fraction] 29.6 % Low 34.0-46.0 AH Workflow SS Comment on above: Performed By: #### F ES, ANEU, ADIFF, GFR, FOL, B12, CMP, MORPH, CBC, FERR ####[place] [address] MCH (RBC) [Entitic mass] 22.3 pg Low 27.0-33.0 AH Workflow SS Comment on above: Performed By: #### F ES, ANEU, ADIFF, GFR, FOL, B12, CMP, MORPH, CBC, FERR ####[place] [address] MCHC 30.5 G/dL Low 32.0-36.0 AH Workflow SS Comment on above: Performed By: #### F ES, ANEU, ADIFF, GFR, FOL, B12, CMP, MORPH, CBC, FERR ####[place] [address] MCV (RBC) [Entitic vol] 72.9 fL Low 80.0-99.0 A H Workflow SS Comment on above: Performed By: #### F ES, ANEU, ADIFF, GFR, FOL, B12, CMP, MORPH, CBC, FERR ####[place] [address] Platelet mean volume (Bld) [Entitic vol] 8.4 fL Normal 6.6-10.5 [facility] SS Comment on above: Performed By: #### F ES, ANEU, ADIFF, GFR, FOL, B12, CMP, MORPH, CBC, FERR ####[place] [address] CBCon 08-18-2024 Hgb 9.0 G/dL Low 12.0-16.0 [facility] Comment on above: Performed By: #### F ES, ANEU, ADIFF, GFR, FOL, B12, CMP, MORPH, CBC, FERR ####[place] [address] Platelet 404 10 3/mcL Normal 150-450 [facility] Comment on above: Performed By: #### F ES, ANEU, ADIFF, GFR, FOL, B12, CMP, MORPH, CBC, FERR ####[place] [address] RBC 4.06 10 6/mcL Low 4.10-5.30 [facility] Comment on above: Performed By: #### F ES, ANEU, ADIFF, GFR, FOL, B12, CMP, MORPH, CBC, FERR ####[place] [address] WBC 2.1 10 3/mcL Low 4.5-10.8 [facility] Comment on above: Performed By: #### F ES, ANEU, ADIFF, GFR, FOL, B12, CMP, MORPH, CBC, FERR ####[place] [address] CMPon 08-18-2024 BUN/Creatinine Ratio Unable to Calculate Normal 10.0-2 2.0 [facility] Comment on above: Result Comment: Unab le to calculate this test result accurately. Results used to calculate this test are outside the reportable range. Performed By: #### F ES, ANEU, ADIFF, GFR, FOL, B12, CMP, MORPH, CBC, FERR ####[place] [address] Urea nitrogen [Mass/Vol] mg/dL Low 8.0-22.0 [facility] Comment on above: Performed By: #### F ES, ANEU, ADIFF, GFR, FOL, B12, CMP, MORPH, CBC, FERR ####[place] [address] Albumin Level 2.9 G/dL Low 3.2-4.8 [facility] Comment on above: Performed By: #### F ES, ANEU, ADIFF, GFR, FOL, B12, CMP, MORPH, CBC, FERR ####[place] [address] ALT [Catalytic activity/Vol] 20 U/L Normal 10-49 [facility] Comment on above: Performed By: #### F ES, ANEU, ADIFF, GFR, FOL, B12, CMP, MORPH, CBC, FERR ####[place] [address] Bili Total 0.70 mg/dL Normal 0.20-1.20 [facility] Comment on above: Result Comment: Use of this assay is not recommended for patients undergoing treatment with eltrombopag due to the potential for falsely elevated results. Performed By: #### F ES, ANEU, ADIFF, GFR, FOL, B12, CMP, MORPH, CBC, FERR ####[place] [address] Total Protein 7.3 G/dL Normal 5.7-8.2 [facility] Comment on above: Performed By: #### F ES, ANEU, ADIFF, GFR, FOL, B12, CMP, MORPH, CBC, FERR ####[place] [address] CMPOrdered By: SYSTEM SYSTEM on 08-18-2024 Albumin/Globulin [Mass ratio] 0.7 {ratio} Low 0.9-1.6 [facility] Comment on above: Performed By: #### F ES, ANEU, ADIFF, GFR, FOL, B12, CMP, MORPH, CBC, FERR ####[place] [id number] [place], [place] [address] ALP [Catalytic activity/Vol] 107 U/L Normal 38-126 AH ADM SS Comment on above: Performed By: #### F ES, ANEU, ADIFF, GFR, FOL, B12, CMP, MORPH, CBC, FERR ####[place] [address] AST [Catalytic activity/Vol] 19 U/L Normal 8-34 AH ADM SS Comment on above: Performed By: #### F ES, ANEU, ADIFF, GFR, FOL, B12, CMP, MORPH, CBC, FERR ####[place] [address] Calcium [Mass/Vol] 9.1 mg/dL Normal 8.7-10.4 ADM SS Comment on above: Performed By: #### F ES, ANEU, ADIFF, GFR, FOL, B12, CMP, MORPH, CBC, FERR ####[place] [address] Chloride [Moles/Vol] 102 mmol/L Normal 98-110 AH A DM SS Comment on above: Performed By: #### F ES, ANEU, ADIFF, GFR, FOL, B12, CMP, MORPH, CBC, FERR ####[place] [address] CO2 [Moles/Vol] 30 mmol/L Normal 22-32 AH ADM SS Comment on above: Performed By: #### F ES, ANEU, ADIFF, GFR, FOL, B12, CMP, MORPH, CBC, FERR ####[place] [address] Creatinine [Mass/Vol] 0.54 mg/dL Normal 0.50-1.20 AH ADM SS Comment on above: Interpretive Data: T esting performed on [employer] CH analyzer using enzymatic creatinine methodology. Result Comment: Test ing performed on [employer] CH analyzer using enzymatic creatinine methodology. Performed By: #### F ES, ANEU, ADIFF, GFR, FOL, B12, CMP, MORPH, CBC, FERR ####[place] [address] Electrolyte Balance 5.0 mEq/L Normal 4.0-15.0 AH AD M SS Comment on above: Performed By: #### F ES, ANEU, ADIFF, GFR, FOL, B12, CMP, MORPH, CBC, FERR ####[place] [address] Globulin 4.4 G/dL High 1.5-3.8 AH ADM SS Comment on above: Performed By: #### F ES, ANEU, ADIFF, GFR, FOL, B12, CMP, MORPH, CBC, FERR ####[place] [address] Glucose [Mass/Vol] 129 mg/dL High 70-110 AH ADM SS Comment on above: Performed By: #### F ES, ANEU, ADIFF, GFR, FOL, B12, CMP, MORPH, CBC, FERR ####[place] [address] Potassium [Moles/Vol] 3.5 mmol/L Normal 3.5-5.0 AH ADM SS Comment on above: Performed By: #### F ES, ANEU, ADIFF, GFR, FOL, B12, CMP, MORPH, CBC, FERR ####[place] [address] Sodium [Moles/Vol] 137 mmol/L Normal 136-145 AH ADM SS Comment on above: Performed By: #### F ES, ANEU, ADIFF, GFR, FOL, B12, CMP, MORPH, CBC, FERR ####[place] [address] FERROrdered By: SYSTEM SYSTE M on 08-18-2024 Ferritin [Mass/Vol] 25.9 ng/mL Normal 8.0-252.0 AH AD M SS Comment on above: Performed By: #### F ES, ANEU, ADIFF, GFR, FOL, B12, CMP, MORPH, CBC, FERR ####[place] [address] FESOrdered By: SYSTEM SYSTEM on 08-18-2024 Iron [Mass/Vol] 6 ug/dL Low 50-170 AH ADM SS Comment on above: Performed By: #### F ES, ANEU, ADIFF, GFR, FOL, B12, CMP, MORPH, CBC, FERR ####[place] [address] FESon 08-18-2024 Iron Sat 2 % Normal [facility] Comment on above: Performed By: #### F ES, ANEU, ADIFF, GFR, FOL, B12, CMP, MORPH, CBC, FERR ####[place] [address] TIBC 277 mcg/dL Normal 250-500 [facility] Comment on above: Performed By: #### F ES, ANEU, ADIFF, GFR, FOL, B12, CMP, MORPH, CBC, FERR ####[place] [address] FOLon 08-18-2024 Folate 33.20 ng/mL High 5.38-24.00 [facility] Comment on above: Performed By: #### F ES, ANEU, ADIFF, GFR, FOL, B12, CMP, MORPH, CBC, FERR ####[place] [address] LABORATORYOrdered By: SYSTEM SYSTEM on 08-18-2024 Albumin BCP dye [Mass/Vol] 2.9 G/dL Low 3.2 - 4.8 G/dL ADM SS ALT No additional P-5'-P [Catalytic activity/Vol] 20 U/L Normal 10 - 49 U/L ADM SS Anisocytosis Ql (Bld) 1+ *NA* (08/18/24 8:00 AM) Invalid Interpretation Code Workflow SS Basophils (Bld) [#/Vol] 0.0 103/mcL Normal 0.0 - 0.3 10^3/mcL AH Workflow SS Bilirubin [Mass/Vol] 0.70 mg/dL Normal 0.20 - 1.20 mg/dL ADM SS Comment on above: Interpretive Data: U se of this assay is not recommended for patients undergoing treatment with eltrombopag due to the potential for falsely elevated results. Eosinophils (Bld) [#/Vol] 0.0 103/mcL Normal 0.0 - 0.7 10^3/mcL AH Workflow SS Folate [Mass/Vol] 33.20 ng/mL High 5.38 - 24.00 ng/mL ADM SS Hemoglobin (Bld) [Mass/Vol] 9.0 G/dL Low 12.0 - 16.0 G/dL AH Workflow SS Iron binding capacity [Mass/Vol] 277 mcg/dL Normal 250 - 500 mcg/dL ADM SS Iron saturation [Mass fraction] 2 % Invalid Interpretation Code AH ADM SS Lymphocytes (Bld) [#/Vol] 0.9 103/mcL Normal 0.9 - 4.3 10^3/mcL AH Workflow SS Microcytes Ql (Bld) 2+ *NA* (08/18/24 8:00 AM) Invalid Interpretation Code AH Workflow SS Monocytes (Bld) [#/Vol] 0.5 103/mcL Normal 0.1 - 1.4 10^3/mcL AH Workflow SS Neutrophils (Bld) [#/Vol] 0.7 103/mcL Low 2.3 - 8.1 10^3/mcL AH Workflow SS Platelets (Bld) [#/Vol] 404 103/mcL Normal 150 - 450 10^3/mcL AH Workflow SS Platelets LM Ql (Bld) Normal *NA* (08/18/24 8:00 AM) Invalid Interpretation Code Workflow SS Protein [Mass/Vol] 7.3 G/dL Normal 5.7 - 8.2 G/dL ADM SS RBC (Bld) [#/Vol] 4.06 106/mcL Low 4.10 - 5.30 10^6/mcL Workflow SS WBC (Bld) [#/Vol] 2.1 103/mcL Low 4.5 - 10.8 10^3/mcL Workflow SS LABORATORYOrdered By: Diana wright on 08-18-2024 Urea nitrogen [Mass/Vol] mg/dL Low 8.0 - 22.0 mg/dL ADM SS Urea nitrogen/Creatinine [Mass ratio] Unable to Calculate Invalid Interpretation Code 10.0 - 22.0 ADM Comment on above: Result Comment: Unab le to calculate this test result accurately. Results used to calculate this test are outside the reportable range. CBC + DIFFon 08-13-2024 Baso # 0.01 x10EE3/UL Normal 0.00 - 0.10 [facility] Comment on above: Performed By: #### [id number] #### [facility],[address] [place] [id number] Basophils/100 WBC (Bld) 0.2 % Normal 0.0 - 2.0 J [facility] Comment on above: Performed By: #### 2 [id number] #### [facility],[address] [place] [address] 01883 CBC + DIFF Normal [facility] Comment on above: Result Comment: CBC- COMPLETE BLOOD COUNT Performed By: #### 2 76352 #### [facility],[address] [place] [address] 62989 EO 1.0 % Normal 0.0 - 7.0 [facility] Comment on above: Performed By: #### 2 59804 #### [facility],[address] [place] [address] EO # 0.07 x10EE3/UL Normal 0.00 - 0.50 [facility] Comment on above: Performed By: #### 2 00632 #### [facility],[address] [place], [place] [id number] Eosinophils/100 WBC (Bld) 1.2 % Normal 0.0 - 7.0 [facility] Comment on above: Performed By: #### 2 82385 #### [facility],[address] [place], [place] [id number] Erythrocyte distribution width (RBC) [Ratio] 16.0 % High 12.0 - 15.6 [facility] Comment on above: Performed By: #### 2 34251 #### [facility],[address] [place] [address] 24116 Hematocrit (Bld) [Volume fraction] 27.0 % Low 34.0 - 46.0 [facility] Comment on above: Performed By: #### 2 50595 #### [facility],[address] [place] [address] 39938 Hemoglobin (Bld) [Mass/Vol] 8.3 g/dL Low 12.0 - 16.0 [facility] Comment on above: Performed By: #### 2 48710 #### [facility],[address] [place] [address] 63043 Lymph # 1.12 x10EE3/UL Normal 0.80 - 2.80 [facility] Comment on above: Performed By: #### 2 29893 #### [facility],[address] [place] [address] 73272 Lymphocytes/100 WBC (Bld) 20.2 % Normal 20.0 - 45.0 [facility] Comment on above: Performed By: #### 2 58729 #### [facility],[address] [place] [address] 62863 Lymphocytes/100 WBC (Bld) 23 % Normal 20 - 45 [facility] Comment on above: Performed By: #### 2 82609 #### [facility],[address] [place] [address] MANUAL DIFF SEE BELOW Normal [facility] Comment on above: Performed By: #### 2 80146 #### [facility],[address] [place] [address] MCH (RBC) [Entitic mass] 22 pg Low 27 - 33 [facility] Comment on above: Performed By: #### 2 25107 #### [facility],[address] [place] [address] MCHC 31 X10 3 Low 32 - 36 [facility] Comment on above: Performed By: #### 2 49181 #### [facility],[address] [place], [place] [phone] MCV (RBC) [Entitic vol] 72 fL Low 80 - 99 J [facility] Comment on above: Performed By: #### 2 87971 #### [facility],[address] [place] [address] [place] # 0.33 x10EE3/UL Normal 0.20 - 1.00 [facility] Comment on above: Performed By: #### 2 09791 #### [facility],[address] [place] [address] MONOS 2 % Normal 0 - 10 [facility] Comment on above: Performed By: #### 2 67998 #### [facility],[address] [place] [address] 59396 MONOS % 6.0 % Normal 0.0 - 10.0 [facility] Comment on above: Performed By: #### 2 50804 #### [facility],[address] [place] [address] 71467 Morphology Alessandro (Bld) [Interp] REVIEWED Normal [facility] Comment on above: Performed By: #### 2 70830 #### [facility],[address] [place] [address] 22390 Neut # 4.00 x10EE3/UL Normal 1.50 - 7.10 [facility] Comment on above: Performed By: #### 2 55114 #### [facility],[address] [place] [address] 17042 Neutrophils/100 WBC (Bld) 72.4 % Normal 46.0 - 76.0 [facility] Comment on above: Performed By: #### 2 15004 #### [facility],[address] [place] [address] 44071 PLATELET 367 x10EE3/UL Normal 150 - 450 [facility] Comment on above: Performed By: #### 2 46570 #### [facility],[address] [place] [address] 91618 Platelet mean volume (Bld) [Entitic vol] 8.4 fL Normal 6.6 - 10.5 [facility] Comment on above: Result Comment: AUTO MATED DIFFERENTIAL Performed By: #### 2 49235 #### [facility],[address] [place] [address] 01226 RBC 3.73 x 10EE6/UL Low 4.10 - 5.30 [facility] Comment on above: Performed By: #### 2 00122 #### [facility],[address] [place] [address] 39741 SEGS 74 % Normal 46 - 76 [facility] Comment on above: Performed By: #### 2 99689 #### [facility],[address] [place] [address] 55518 WBC 5.5 x 10EE3/UL Normal 4.5 - 10.8 [facility] Comment on above: Performed By: #### 2 63061 #### [facility],[address] [place] [address] 79885 HIP BILAT 2+ VIEWS W/AP PELV Gianna 08-13-2024 HIP BILAT 2+ VIEWS W/AP PELVIS [place] [id number] Patient: CLARISSE PEGUERO Phone#: : [phone] Age: 44 Gender: F Pt. Type: Out Account: [id number] Location: [facility] Ordering: KB GALAN Exam Date: 08/13/2024/15:42 Family Phys: Charge Code: 224565 Physician: Russell Order #: [id number] Dose#: PROCEDURE: X-RAY HIP BILAT MIN 2 VIEWS W/AP PELVIS COMPARISON: None. INDICATIONS: Bilateral hip pain. FINDINGS: BONES: Normal. No significant arthropathy or acute abnormality. SOFT TISSUES: Negative. No visible soft tissue swelling. EFFUSION: None visible. OTHER: Negative. CONCLUSION: No acute disease. Dictated by: Inés Hurt MD on 08/13/2024 at 17:19 Approved by: Insé Hurt MD on 08/13/2024 at 17:20 Normal [facility] MR LIVER WITH EOVIST CONTRAS Ton 08-01-2024 MR LIVER WITH EOVIST CONTRAST Interpreted By: Alireza Peña, STUDY: MR LIVER WITH EOVIST CONTRAST; 08/01/2024 10:27 am INDICATION: Signs/Symptoms:Patient with colon cancer and suspected liver mets needs MRI liver with eovist for further evaluation for surgical planning. 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 ACCESSION NUMBER(S): [id number] ORDERING CLINICIAN: JUSTICE PEREA TECHNIQUE: MRI LIVER; Multiplanar magnetic resonance images of the abdomen were obtained including the following sequences; T2-weighted SSFSE with and without fat saturation, T1-weighted GRE in/opposed phase, DWI, fat saturated 3D-T1w GRE pre and dynamically post contrast. 10 ML of Eovist was administered intravenously without immediate complication. FINDINGS: LIVER: Liver is enlarged in size measuring 20 cm craniocaudally. There is mild drop of signal in the liver parenchyma on the out of phase images compared to the inphase images representing mild fatty infiltration. There are multiple liver lesions in both the right and left lobes. Right lobe: There is a 4.4 x 4.4 x 3.9 cm heterogeneously T2 hyperintense and T1 hypointense mass in the segment 8/5 of the liver immediately above the bifurcation of the anterior and posterior divisions of the right portal vein. The mass causes a thrombosis of the anterior division of the right portal vein. The mass demonstrates mild peripheral enhancement with the central area of necrosis. There is a diffusion restriction within the mass. There is heterogeneous diffuse geographic area of increased enhancement on the arterial phase images with the decreased enhancement on the hepatocyte phase surrounding this mass in the segments 8 and 4A likely representing perfusion abnormality. There is an 8 mm satellite lesion immediately adjacent to this dominant mass (series 32, image 37). Inferior to this within the segment 5 abutting the gallbladder fossa is a 4 mm focus of diffusion restriction with no uptake on Eovist (series 32, image 45). There is a 1.0 x 0.8 cm lesion in the hepatic dome medially (series 32, image 21). A 2 mm T2 hyperintense focus in the posterior aspect of the segment 7 of the liver likely represents a simple cysts (series 4, image 21, series 32, image 34). Left lobe: There are 2 lesions in the left lobe of the liver with the similar imaging characteristics in the segment 3 measuring a proximally 2.6 x 2.5 cm and 1.0 x 1.0 cm (series 32, images a 45, 51). There is a 3 mm T2 hyperintense nonenhancing focus in the periphery of the segment 3 subcapsular location likely representing a simple cyst (series 4, image 29, series 32, image 44). BILE DUCTS: There is no intra or extrahepatic bile duct dilatation. GALLBLADDER: The gallbladder is non distended and contains multiple gallstones. PANCREAS: Normal signal intensity. Normal enhancement. No masses. The pancreatic duct is normal. SPLEEN: Spleen is normal in size and signal. No focal splenic lesion is seen. ADRENAL GLANDS: There is an 8 mm nodule in the left adrenal gland which demonstrates drop of signal on the out of phase images compared to the inphase images consistent with a lipid rich adrenal adenoma. Right adrenal gland is within normal limits. KIDNEYS: Bilateral kidneys are symmetric in size, signal and enhancement. No hydronephrosis. LYMPH NODES: There is no enlarged lymphadenopathy in the abdomen. A prominent portacaval lymph node is noted measuring approximately 2.4 x 0.9 cm. ABDOMINAL VESSELS: Aorta and its major branches are within normal limits. Main portal vein and its right and left branches are patent. The anterior division of the right portal vein is likely thrombosed secondary to the segment 8 mass with resultant perfusion abnormality in the 8 and 4A. Splenic vein and SMV are patent. IVC is unremarkable. No significant collaterals. BOWEL: Stomach and duodenum are within normal limits. Visualized small and large bowel loops are normal in caliber. PERITONEUM/RETROPERITONE UM: No ascites or intra-abdominal fluid collection. No retroperitoneal mass. BONES AND LOWER THORAX: A T2 hyperintense focus is noted in the T7 vertebral body without significant postcontrast enhancement. Rest of the bones show normal marrow signal and enhancement. Visualized sections of the chest reveal 9 mm T2 hyperintense nodule in the right upper lobe (series 3, image 24). IMPRESSION: 1. Multiple liver lesions in segments 8, 5, 3 as described above with dominant lesion in segment 8/4A consistent with hepatic metastatic disease. 2. 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 3. Hepatomegaly with mild fatty infi (more content not included)... Normal [facility] LABORATORYOrdered By: Isabella Ghotra on 07-23-2024 Beta HCG ( test) Ql (U) Negative (07/23/24 12:02 PM) [facility] Work Phone: XR FLUORO VENOUS ACCESS OLAF CEon 07-23-2024 XR FLUORO VENOUS ACCESS DEVICE Normal [facility] .Auto Diffon 2024 Basophil, Absolute 0.0 10 3/mcL Normal 0.0-0.3 [facility] Comment on above: Performed By: #### H EPAC, ADIFF, CBC, GFR, ANEU, CMP, CEA ####[address] [address] Basophils/100 WBC (Bld) 0.5 % Normal 0.0-2.5 [facility] Comment on above: Performed By: #### H EPAC, ADIFF, CBC, GFR, ANEU, CMP, CEA ####[address] [address] Eosinophil, Absolute 0.0 10 3/mcL Normal 0.0-0.7 [facility] Comment on above: Performed By: #### H EPAC, ADIFF, CBC, GFR, ANEU, CMP, CEA ####[address] [address] Eosinophils/100 WBC (Bld) 0.3 % Normal 0.0-6.0 [facility] Comment on above: Performed By: #### H EPAC, ADIFF, CBC, GFR, ANEU, CMP, CEA ####[address] [address] Lymphocyte, Absolute 1.0 10 3/mcL Normal 0.9-4.3 [facility] Comment on above: Performed By: #### H EPAC, ADIFF, CBC, GFR, ANEU, CMP, CEA ####[address] [address] Lymphocytes/100 WBC (Bld) 22.1 % Normal 20.0-40.0 [facility] Comment on above: Performed By: #### H EPAC, ADIFF, CBC, GFR, ANEU, CMP, CEA ####[address] [address] Monocyte, Absolute 0.4 10 3/mcL Normal 0.1-1.4 [facility] Comment on above: Performed By: #### H EPAC, ADIFF, CBC, GFR, ANEU, CMP, CEA ####[address] [address] Monocytes/100 WBC (Bld) 9.5 % Normal 2.0-13.0 [facility] Comment on above: Performed By: #### H EPAC, ADIFF, CBC, GFR, ANEU, CMP, CEA ####[place] [id number] [address] [place] [address] 60551 Neutrophils/100 WBC (Bld) 67.6 % Normal 50.0-75.0 [facility] Comment on above: Performed By: #### H EPAC, ADIFF, CBC, GFR, ANEU, CMP, CEA ####[address] [address] .GFRon 2024 GFR >60 Normal [facility] Comment on above: Result Comment: GFR Population mean for , Non- Americans Ages 20-29 = 116 mL/min/1.73 sq.m. Ages 30-39 = 107 mL/min/1.73 sq.m. Ages 40-49 = 99 mL/min/1.73 sq.m. Ages 50-59 = 93 mL/min/1.73 sq.m. Ages 60-69 = 85 mL/min/1.73 sq.m. Ages 70+ = 75 mL/min/1.73 sq.m.Chronic Kidney Disease: Less than 60 mL/min/1.73 square metersEnd Stage Renal Disease: Less than 15 mL/min/1.73 square meters Performed By: #### H EPAC, ADIFF, CBC, GFR, ANEU, CMP, CEA ####[address] [address] GFR Non- >60 [facility] Comment on above: Result Comment: GFR Population mean for , Non- Americans Ages 20-29 = 116 mL/min/1.73 sq.m. Ages 30-39 = 107 mL/min/1.73 sq.m. Ages 40-49 = 99 mL/min/1.73 sq.m. Ages 50-59 = 93 mL/min/1.73 sq.m. Ages 60-69 = 85 mL/min/1.73 sq.m. Ages 70+ = 75 mL/min/1.73 sq.m.Chronic Kidney Disease: Less than 60 mL/min/1.73 square metersEnd Stage Renal Disease: Less than 15 mL/min/1.73 square meters Performed By: #### H EPAC, ADIFF, CBC, GFR, ANEU, CMP, CEA ####[place] [address] .NEUABSon 2024 Neutrophil, Absolute 3.1 10 3/mcL Normal 2.3-8.1 [facility] Comment on above: Performed By: #### H EPAC, ADIFF, CBC, GFR, ANEU, CMP, CEA ####[place] [address] CBCon 2024 Erythrocyte distribution width (RBC) [Ratio] 15.2 % Normal 11.5-15.5 [facility] Comment on above: Performed By: #### H EPAC, ADIFF, CBC, GFR, ANEU, CMP, CEA ####[place] [address] Hematocrit (Bld) [Volume fraction] 34.1 % Normal 34.0-46.0 [facility] Comment on above: Performed By: #### H EPAC, ADIFF, CBC, GFR, ANEU, CMP, CEA ####[place] [address] Hgb 10.7 G/dL Low 12.0-16.0 [facility] Comment on above: Performed By: #### H EPAC, ADIFF, CBC, GFR, ANEU, CMP, CEA ####[place] [address] MCH (RBC) [Entitic mass] 23.6 pg Low 27.0-33.0 [facility] Comment on above: Performed By: #### H EPAC, ADIFF, CBC, GFR, ANEU, CMP, CEA ####[place] [address] MCHC 31.3 G/dL Low 32.0-36.0 [facility] Comment on above: Performed By: #### H EPAC, ADIFF, CBC, GFR, ANEU, CMP, CEA ####[place] [address] MCV (RBC) [Entitic vol] 75.6 fL Low 80.0-99.0 [facility] Comment on above: Performed By: #### H EPAC, ADIFF, CBC, GFR, ANEU, CMP, CEA ####[place] [address] Platelet 319 10 3/mcL Normal 150-450 [facility] Comment on above: Performed By: #### H EPAC, ADIFF, CBC, GFR, ANEU, CMP, CEA ####[place] [address] Platelet mean volume (Bld) [Entitic vol] 9.0 fL Normal 6.6-10.5 [facility] Comment on above: Performed By: #### H EPAC, ADIFF, CBC, GFR, ANEU, CMP, CEA ####[place] [address] RBC 4.51 10 6/mcL Normal 4.10-5.30 [facility] Comment on above: Performed By: #### H EPAC, ADIFF, CBC, GFR, ANEU, CMP, CEA ####[place] [address] WBC 4.6 10 3/mcL Normal 4.5-10.8 [facility] Comment on above: Performed By: #### H EPAC, ADIFF, CBC, GFR, ANEU, CMP, CEA ####[place] [address] CEAon 2024 CEA 285.4 ng/mL High 0.0-3.0 [facility] Comment on above: Result Comment: CEA Reference Range for SMOKERS: 0.0 - 5.0 ng/mL.Testing performed on the [employer] analyzer usingdirect chemiluminesent technology. Patient resultsdetermined by assays using different manufacturers for methods may not be comparable. Performed By: #### H EPAC, ADIFF, CBC, GFR, ANEU, CMP, CEA ####[place] [address] CMPon 2024 Albumin Level 3.5 G/dL Normal 3.2-4.8 [facility] Comment on above: Performed By: #### H EPAC, ADIFF, CBC, GFR, ANEU, CMP, CEA ####[place] [address] Albumin/Globulin [Mass ratio] 0.8 {ratio} Low 0.9-1.6 [facility] Comment on above: Performed By: #### H EPAC, ADIFF, CBC, GFR, ANEU, CMP, CEA ####[place] [address] ALP [Catalytic activity/Vol] 97 U/L Normal 38-126 [facility] Comment on above: Performed By: #### H EPAC, ADIFF, CBC, GFR, ANEU, CMP, CEA ####[place] [address] ALT [Catalytic activity/Vol] 19 U/L Normal 10-49 [facility] Comment on above: Performed By: #### H EPAC, ADIFF, CBC, GFR, ANEU, CMP, CEA ####[place] [address] AST [Catalytic activity/Vol] 22 U/L Normal 8-34 [facility] Comment on above: Performed By: #### H EPAC, ADIFF, CBC, GFR, ANEU, CMP, CEA ####[place] [address] Bili Total 1.10 mg/dL Normal 0.20-1.20 [facility] Comment on above: Result Comment: Use of this assay is not recommended for patients undergoing treatment with eltrombopag due to the potential for falsely elevated results. Performed By: #### H EPAC, ADIFF, CBC, GFR, ANEU, CMP, CEA ####[place] [address] BUN/Creatinine Ratio 14.1 ratio Normal 10.0-22.0 [facility] Comment on above: Performed By: #### H EPAC, ADIFF, CBC, GFR, ANEU, CMP, CEA ####[place] [address] Calcium [Mass/Vol] 9.4 mg/dL Normal 8.7-10.4 [facility] Comment on above: Performed By: #### H EPAC, ADIFF, CBC, GFR, ANEU, CMP, CEA ####[place] [id number] Chloride [Moles/Vol] 104 mmol/L Normal 98-110 [facility] Comment on above: Performed By: #### H EPAC, ADIFF, CBC, GFR, ANEU, CMP, CEA ####[address] [address] CO2 [Moles/Vol] 29 mmol/L Normal 22-32 [facility] Comment on above: Performed By: #### H EPAC, ADIFF, CBC, GFR, ANEU, CMP, CEA ####[place] [id number] Creatinine [Mass/Vol] 0.64 mg/dL Normal 0.50-1.20 [facility] Comment on above: Result Comment: Test ing performed on [employer] analyzer using enzymatic creatinine methodology. Performed By: #### H EPAC, ADIFF, CBC, GFR, ANEU, CMP, CEA ####[place] [address] Electrolyte Balance 6.0 mEq/L Normal 4.0-15.0 [facility] Comment on above: Performed By: #### H EPAC, ADIFF, CBC, GFR, ANEU, CMP, CEA ####[place] [address] Globulin 4.5 G/dL High 1.5-3.8 [facility] Comment on above: Performed By: #### H EPAC, ADIFF, CBC, GFR, ANEU, CMP, CEA ####[place] [id number] Glucose [Mass/Vol] 107 mg/dL Normal 70-110 [facility] Comment on above: Performed By: #### H EPAC, ADIFF, CBC, GFR, ANEU, CMP, CEA ####[place] [id number] Potassium [Moles/Vol] 3.5 mmol/L Normal 3.5-5.0 [facility] Comment on above: Performed By: #### H EPAC, ADIFF, CBC, GFR, ANEU, CMP, CEA ####[place] [address] Sodium [Moles/Vol] 139 mmol/L Normal 136-145 [facility] Comment on above: Performed By: #### H EPAC, ADIFF, CBC, GFR, ANEU, CMP, CEA ####[place] [address] Total Protein 8.0 G/dL Normal 5.7-8.2 [facility] Comment on above: Performed By: #### H EPAC, ADIFF, CBC, GFR, ANEU, CMP, CEA ####[place] [address] Urea nitrogen [Mass/Vol] 9.0 mg/dL Normal 8.0-22.0 [facility] Comment on above: Performed By: #### H EPAC, ADIFF, CBC, GFR, ANEU, CMP, CEA ####[place] [address] HEPACon 2024 Hep A IgM Ab Non-Reactive Normal [facility] Comment on above: Performed By: #### H EPAC, ADIFF, CBC, GFR, ANEU, CMP, CEA ####[place] [address] Hep A IgM Ab Int Normal [facility] Comment on above: Result Comment: No s erological evidence of a current Hepatitis A infection.See Interp Performed By: #### H EPAC, ADIFF, CBC, GFR, ANEU, CMP, CEA ####[place] [address] Hep B Core IgM Ab Non-Reactive Normal Non-Reacti [facility] Comment on above: Performed By: #### H EPAC, ADIFF, CBC, GFR, ANEU, CMP, CEA ####[place] [address] Hep B Core IgM Ab Int Normal [facility] Comment on above: Result Comment: Samp les with a value < 0.80 Index are considered nonreactive (negative) for IgM antibodies to hepatitis B core antigen.See Interp Performed By: #### H EPAC, ADIFF, CBC, GFR, ANEU, CMP, CEA ####[facility] [place] [address] Hep B Surf Ag Non-Reactive Normal Non-Reacti [facility] Comment on above: Performed By: #### H EPAC, ADIFF, CBC, GFR, ANEU, CMP, CEA ####[facility] [place] [address] Hep C Ab Non-Reactive Normal Non-Reacti [facility] Comment on above: Performed By: #### H EPAC, ADIFF, CBC, GFR, ANEU, CMP, CEA ####[facility] [place] [address] Hep C Ab Int [facility] Comment on above: Result Comment: Nonr eactive: Samples with a value < 0.80 are considered nonreactive (negative) for antibodies to HCV.A negative test result does not exclude the possibility of exposure to or infection with HCV. HCV antibodies may be undetectable in some stages of the infection and in some clinical conditions.See Interp Performed By: #### H EPAC, ADIFF, CBC, GFR, ANEU, CMP, CEA ####[facility] [place] [address] LABORATORYOrdered By: SYSTEM SYSTEM on 2024 Albumin BCP dye [Mass/Vol] 3.5 G/dL Normal 3.2 - 4.8 G/dL ADM SS Albumin/Globulin [Mass ratio] 0.8 {ratio} Low 0.9 - 1.6 ratio AH ADM SS ALP [Catalytic activity/Vol] 97 U/L Normal 38 - 126 U/L ADM SS ALT No additional P-5'-P [Catalytic activity/Vol] 19 U/L Normal 10 - 49 U/L AH ADM SS AST [Catalytic activity/Vol] 22 U/L Normal 8 - 34 U/L AH ADM SS Basophils (Bld) [#/Vol] 0.0 103/mcL Normal 0.0 - 0.3 10^3/mcL AH Workflow SS Basophils/100 WBC (Bld) 0.5 % Normal 0.0 - 2.5 % Workflow SS Bilirubin [Mass/Vol] 1.10 mg/dL Normal 0.20 - 1.20 mg/dL AH ADM SS Comment on above: Interpretive Data: U se of this assay is not recommended for patients undergoing treatment with eltrombopag due to the potential for falsely elevated results. Calcium [Mass/Vol] 9.4 mg/dL Normal 8.7 - 10. 4 mg/dL ADM SS Carcinoembryonic Ag [Mass/Vol] 285.4 ng/mL High 0.0 - 3.0 ng/mL ADM SS Comment on above: Interpretive Data: C EA Reference Range for SMOKERS: 0.0 - 5.0 ng/mL. Testing performed on the Cover IM analyzer using direct chemiluminesent technology. Patient results determined by assays using different manufacturers for methods may not be comparable. Chloride [Moles/Vol] 104 mmol/L Normal 98 - 11 0 mEq/L ADM SS CO2 [Moles/Vol] 29 mmol/L Normal 22 - 32 mEq/L ADM SS Creatinine [Mass/Vol] 0.64 mg/dL Normal 0.50 - 1.20 mg/dL ADM SS Comment on above: Interpretive Data: T esting performed on Cover CH analyzer using enzymatic creatinine methodology. Electrolyte Balance 6.0 mEq/L Normal 4.0 - 15 .0 mEq/L ADM SS Eosinophils (Bld) [#/Vol] 0.0 103/mcL Normal 0.0 - 0.7 10^3/mcL Workflow SS Eosinophils/100 WBC (Bld) 0.3 % Normal 0.0 - 6.0 % Workflow SS Erythrocyte distribution width (RBC) [Ratio] 15.2 % Normal 11.5 - 15.5 % Workflow SS GFR/1.73 sq M.predicted among blacks MDRD (S/P/Bld) [Vol rate/Area] ml/min/1.73sqm Invalid Interpretation Code Chemistry S Comment on above: Interpretive Data: GFR Population mean for , Non- Americans Ages 20-29 = 116 mL/min/1.73 sq.m. Ages 30-39 = 107 mL/min/1.73 sq.m. Ages 40-49 = 99 mL/min/1.73 sq.m. Ages 50-59 = 93 mL/min/1.73 sq.m. Ages 60-69 = 85 mL/min/1.73 sq.m. Ages 70+ = 75 mL/min/1.73 sq.m. Chronic Kidney Disease: Less than 60 mL/min/1.73 square meters End Stage Renal Disease: Less than 15 mL/min/1.73 square meters GFR/1.73 sq M.predicted among non-blacks MDRD (S/P/Bld) [Vol rate/Area] ml/min/1.73sqm Invalid Interpretation Code Chemistry S Comment on above: Interpretive Data: GFR Population mean for , Non- Americans Ages 20-29 = 116 mL/min/1.73 sq.m. Ages 30-39 = 107 mL/min/1.73 sq.m. Ages 40-49 = 99 mL/min/1.73 sq.m. Ages 50-59 = 93 mL/min/1.73 sq.m. Ages 60-69 = 85 mL/min/1.73 sq.m. Ages 70+ = 75 mL/min/1.73 sq.m. Chronic Kidney Disease: Less than 60 mL/min/1.73 square meters End Stage Renal Disease: Less than 15 mL/min/1.73 square meters Globulin 4.5 G/dL High 1.5 - 3.8 G/dL AH ADM SS Glucose [Mass/Vol] 107 mg/dL Normal 70 - 110 mg/dL AH ADM SS Hematocrit (Bld) [Volume fraction] 34.1 % Normal 34.0 - 46.0 % AH Workflow SS Hemoglobin (Bld) [Mass/Vol] 10.7 G/dL Low 12.0 - 16.0 G/dL AH Workflow SS Lymphocytes (Bld) [#/Vol] 1.0 103/mcL Normal 0.9 - 4.3 10^3/mcL AH Workflow SS Lymphocytes/100 WBC (Bld) 22.1 % Normal 20.0 - 40.0 % AH Workflow SS MCH (RBC) [Entitic mass] 23.6 pg Low 27.0 - 33.0 pg AH Workflow SS MCHC 31.3 G/dL Low 32.0 - 36.0 G/dL AH Workflow SS MCV (RBC) [Entitic vol] 75.6 fL Low 80.0 - 99.0 fL AH Workflow SS Monocytes (Bld) [#/Vol] 0.4 103/mcL Normal 0.1 - 1.4 10^3/mcL AH Workflow SS Monocytes/100 WBC (Bld) 9.5 % Normal 2.0 - 13.0 % AH Workflow SS Neutrophils (Bld) [#/Vol] 3.1 103/mcL Normal 2.3 - 8.1 10^3/mcL AH Workflow SS Neutrophils/100 WBC (Bld) 67.6 % Normal 50.0 - 75.0 % AH Workflow SS Platelet mean volume (Bld) [Entitic vol] 9.0 fL Normal 6.6 - 10.5 fL Workflow SS Platelets (Bld) [#/Vol] 319 103/mcL Normal 150 - 450 10^3/mcL AH Workflow SS Potassium [Moles/Vol] 3.5 mmol/L Normal 3.5 - 5.0 mEq/L AH ADM SS Protein [Mass/Vol] 8.0 G/dL Normal 5.7 - 8.2 G/dL ADM SS RBC (Bld) [#/Vol] 4.51 106/mcL Normal 4.10 - 5.30 10^6/mcL AH Workflow SS Sodium [Moles/Vol] 139 mmol/L Normal 136 - 145 mEq/L ADM SS Urea nitrogen [Mass/Vol] 9.0 mg/dL Normal 8.0 - 22.0 mg/dL ADM SS Urea nitrogen/Creatinine [Mass ratio] 14.1 ratio Normal 10.0 - 22.0 ratio AH ADM SS WBC (Bld) [#/Vol] 4.6 103/mcL Normal 4.5 - 10.8 10^3/mcL Workflow SS LABORATORYOrdered By: Leo rao on 2024 HAV IgM IA Ql Non-Reactive (07/20/24 9:15 AM) Normal Non-Reacti ve ADM SS HAV IgM IA Ql No serological evide nce of a current Hepatitis A infection. Invalid Interpretation Code Chemistry S HBV core IgM IA Ql Non-Reactive (07/20/24 9:15 AM) Normal Non-Reacti ve ADM SS HBV core IgM IA Ql Samples with a value < 0.80 Index are considered nonreactive (negative) for IgM antibodies to hepatitis B core antigen. Invalid Interpretation Code Chemistry S HBV surface Ag IA Ql Non-Reactive (07/20/24 9:15 AM) Normal Non-Reacti ve ADM SS HCV Ab IA Ql Non-Reactive (07/20/24 9:15 AM) Normal Non-Reacti ve AH ADM SS HCV Ab IA Ql Nonreactive: Samples with a value < 0.80 are considered nonreactive (negative) for antibodies to HCV.A negative test result does not exclude the possibility of exposure to or infection with HCV. HCV antibodies may be undetectable in some stages of the infection and in some clinical conditions. Invalid Interpretation Code Chemistry S Final Surgical Pathology Rep larry 07-17-2024 Final Surgical Pathology Report Normal [facility] IR BIOPSY LIVERon 07-17-2024 IR BIOPSY LIVER Normal [facility] .Auto Diffon 07-16-2024 Basophil, Absolute 0.0 10 3/mcL Normal 0.0-0.3 [facility] Comment on above: Performed By: #### C BC, GFR, ADIFF, PRO, CRE, ANEU ####[address] [address] Basophils/100 WBC (Bld) 0.4 % Normal 0.0-2.5 [facility] Comment on above: Performed By: #### C BC, GFR, ADIFF, PRO, CRE, ANEU ####[address] [address] Eosinophil, Absolute 0.1 10 3/mcL Normal 0.0-0.7 [facility] Comment on above: Performed By: #### C BC, GFR, ADIFF, PRO, CRE, ANEU ####[address] [address] Eosinophils/100 WBC (Bld) 1.6 % Normal 0.0-6.0 [facility] Comment on above: Performed By: #### C BC, GFR, ADIFF, PRO, CRE, ANEU ####[address] [address] Lymphocyte, Absolute 1.5 10 3/mcL Normal 0.9-4.3 [facility] Comment on above: Performed By: #### C BC, GFR, ADIFF, PRO, CRE, ANEU ####[address] [address] Lymphocytes/100 WBC (Bld) 30.2 % Normal 20.0-40.0 [facility] Comment on above: Performed By: #### C BC, GFR, ADIFF, PRO, CRE, ANEU ####[place] [id number] [place] [address] Monocyte, Absolute 0.3 10 3/mcL Normal 0.1-1.4 [facility] Comment on above: Performed By: #### C BC, GFR, ADIFF, PRO, CRE, ANEU ####[address] [address] Monocytes/100 WBC (Bld) 5.9 % Normal 2.0-13.0 [facility] Comment on above: Performed By: #### C BC, GFR, ADIFF, PRO, CRE, ANEU ####[address] [address] Neutrophils/100 WBC (Bld) 61.9 % Normal 50.0-75.0 [facility] Comment on above: Performed By: #### C BC, GFR, ADIFF, PRO, CRE, ANEU ####[place] [id number] .GFRon 07-16-2024 GFR >60 Normal [facility] Comment on above: Result Comment: GFR Population mean for , Non- Americans Ages 20-29 = 116 mL/min/1.73 sq.m. Ages 30-39 = 107 mL/min/1.73 sq.m. Ages 40-49 = 99 mL/min/1.73 sq.m. Ages 50-59 = 93 mL/min/1.73 sq.m. Ages 60-69 = 85 mL/min/1.73 sq.m. Ages 70+ = 75 mL/min/1.73 sq.m.Chronic Kidney Disease: Less than 60 mL/min/1.73 square metersEnd Stage Renal Disease: Less than 15 mL/min/1.73 square meters Performed By: #### C BC, GFR, ADIFF, PRO, CRE, ANEU ####[address] [address] GFR Non- >60 Normal [facility] Comment on above: Result Comment: GFR Population mean for , Non- Americans Ages 20-29 = 116 mL/min/1.73 sq.m. Ages 30-39 = 107 mL/min/1.73 sq.m. Ages 40-49 = 99 mL/min/1.73 sq.m. Ages 50-59 = 93 mL/min/1.73 sq.m. Ages 60-69 = 85 mL/min/1.73 sq.m. Ages 70+ = 75 mL/min/1.73 sq.m.Chronic Kidney Disease: Less than 60 mL/min/1.73 square metersEnd Stage Renal Disease: Less than 15 mL/min/1.73 square meters Performed By: #### C BC, GFR, ADIFF, PRO, CRE, ANEU ####[place] [address] .NEUABSon 07-16-2024 Neutrophil, Absolute 3.0 10 3/mcL Normal 2.3-8.1 [facility] Comment on above: Performed By: #### C BC, GFR, ADIFF, PRO, CRE, ANEU ####[place] [address] CBCon 07-16-2024 Erythrocyte distribution width (RBC) [Ratio] 15.5 % Normal 11.5-15.5 [facility] Comment on above: Performed By: #### C BC, GFR, ADIFF, PRO, CRE, ANEU ####[place] [address] Hematocrit (Bld) [Volume fraction] 31.8 % Low 34.0-46.0 [facility] Comment on above: Performed By: #### C BC, GFR, ADIFF, PRO, CRE, ANEU ####[place] [address] Hgb 10.1 G/dL Low 12.0-16.0 [facility] Comment on above: Performed By: #### C BC, GFR, ADIFF, PRO, CRE, ANEU ####[place] [address] MCH (RBC) [Entitic mass] 24.4 pg Low 27.0-33.0 [facility] Comment on above: Performed By: #### C BC, GFR, ADIFF, PRO, CRE, ANEU ####[place] [address] MCHC 31.8 G/dL Low 32.0-36.0 [facility] Comment on above: Performed By: #### C BC, GFR, ADIFF, PRO, CRE, ANEU ####[place] [address] MCV (RBC) [Entitic vol] 76.7 fL Low 80.0-99.0 [facility] Comment on above: Performed By: #### C BC, GFR, ADIFF, PRO, CRE, ANEU ####[place] [address] Platelet 329 10 3/mcL Normal 150-450 [facility] Comment on above: Performed By: #### C BC, GFR, ADIFF, PRO, CRE, ANEU ####[place] [address] Platelet mean volume (Bld) [Entitic vol] 8.6 fL Normal 6.6-10.5 [facility] Comment on above: Performed By: #### C BC, GFR, ADIFF, PRO, CRE, ANEU ####[place] [address] RBC 4.14 10 6/mcL Normal 4.10-5.30 [facility] Comment on above: Performed By: #### C BC, GFR, ADIFF, PRO, CRE, ANEU ####[place] [address] WBC 4.9 10 3/mcL Normal 4.5-10.8 [facility] Comment on above: Performed By: #### C BC, GFR, ADIFF, PRO, CRE, ANEU ####[place] [address] CREon 07-16-2024 Creatinine [Mass/Vol] 0.51 mg/dL Normal 0.50-1.20 [facility] Comment on above: Result Comment: Test ing performed on [employer] analyzer using enzymatic creatinine methodology. Performed By: #### C BC, GFR, ADIFF, PRO, CRE, ANEU ####[place] [address] LABORATORYOrdered By: Hamlet Cantu on 07-16-2024 Beta HCG ( test) Ql (U) Negative (07/16/24 8:35 AM) [facility] Work Phone: LABORATORYOrdered By: SYSTEM SYSTEM on 07-16-2024 Basophils (Bld) [#/Vol] 0.0 103/mcL Normal 0.0 - 0.3 10^3/mcL AH Workflow SS Basophils/100 WBC (Bld) 0.4 % Normal 0.0 - 2.5 % AH Workflow SS Creatinine [Mass/Vol] 0.51 mg/dL Normal 0.50 - 1.20 mg/dL AH ADM SS Comment on above: Interpretive Data: T esting performed on [employer] analyzer using enzymatic creatinine methodology. Eosinophils (Bld) [#/Vol] 0.1 103/mcL Normal 0.0 - 0.7 10^3/mcL AH Workflow SS Eosinophils/100 WBC (Bld) 1.6 % Normal 0.0 - 6.0 % AH Workflow SS Erythrocyte distribution width (RBC) [Ratio] 15.5 % Normal 11.5 - 15.5 % AH Workflow SS GFR/1.73 sq M.predicted among blacks MDRD (S/P/Bld) [Vol rate/Area] ml/min/1.73sqm Invalid Interpretation Code [employer] Communication Chemistry S Comment on above: Interpretive Data: GFR Population mean for , Non- Americans Ages 20-29 = 116 mL/min/1.73 sq.m. Ages 30-39 = 107 mL/min/1.73 sq.m. Ages 40-49 = 99 mL/min/1.73 sq.m. Ages 50-59 = 93 mL/min/1.73 sq.m. Ages 60-69 = 85 mL/min/1.73 sq.m. Ages 70+ = 75 mL/min/1.73 sq.m. Chronic Kidney Disease: Less than 60 mL/min/1.73 square meters End Stage Renal Disease: Less than 15 mL/min/1.73 square meters GFR/1.73 sq M.predicted among non-blacks MDRD (S/P/Bld) [Vol rate/Area] ml/min/1.73sqm Invalid Interpretation Code [employer] Communication Chemistry S Comment on above: Interpretive Data: GFR Population mean for , Non- Americans Ages 20-29 = 116 mL/min/1.73 sq.m. Ages 30-39 = 107 mL/min/1.73 sq.m. Ages 40-49 = 99 mL/min/1.73 sq.m. Ages 50-59 = 93 mL/min/1.73 sq.m. Ages 60-69 = 85 mL/min/1.73 sq.m. Ages 70+ = 75 mL/min/1.73 sq.m. Chronic Kidney Disease: Less than 60 mL/min/1.73 square meters End Stage Renal Disease: Less than 15 mL/min/1.73 square meters Hematocrit (Bld) [Volume fraction] 31.8 % Low 34.0 - 46.0 % AH Workflow SS Hemoglobin (Bld) [Mass/Vol] 10.1 G/dL Low 12.0 - 16.0 G/dL AH Workflow SS Lymphocytes (Bld) [#/Vol] 1.5 103/mcL Normal 0.9 - 4.3 10^3/mcL AH Workflow SS Lymphocytes/100 WBC (Bld) 30.2 % Normal 20.0 - 40.0 % AH Workflow SS MCH (RBC) [Entitic mass] 24.4 pg Low 27.0 - 33.0 pg AH Workflow SS MCHC 31.8 G/dL Low 32.0 - 36.0 G/dL AH Workflow SS MCV (RBC) [Entitic vol] 76.7 fL Low 80.0 - 99.0 fL AH Workflow SS Monocytes (Bld) [#/Vol] 0.3 103/mcL Normal 0.1 - 1.4 10^3/mcL AH Workflow SS Monocytes/100 WBC (Bld) 5.9 % Normal 2.0 - 13.0 % AH Workflow SS Neutrophils (Bld) [#/Vol] 3.0 103/mcL Normal 2.3 - 8.1 10^3/mcL AH Workflow SS Neutrophils/100 WBC (Bld) 61.9 % Normal 50.0 - 75.0 % AH Workflow SS Platelet mean volume (Bld) [Entitic vol] 8.6 fL Normal 6.6 - 10.5 fL AH Workflow SS Platelets (Bld) [#/Vol] 329 103/mcL Normal 150 - 450 10^3/mcL AH Workflow SS PT Coag (PPP) [Time] 12.9 s Normal 9.0 - 1 4.4 seconds AH HemoHub SS Comment on above: Interpretive Data: E ffective 01/13/08, Protime results may be affected by some antibiotics (i.e. Ciprofloxacin, Azithromycin, Bactrim) which may potentiate the action of oral anticoagulants, with further increases in Protime/INR. PT International Ratio 1.1 ratio Invalid Interpretation Code HemDCub Comment on above: Interpretive Data: T char [employer] (CHEST, 1991, 102:312S-25S) recommended therapeutic range for oral anticoagulant therapy is: LOW RISK: Prophylaxis of venous thrombosis INR: 2.0-3.0 Treatment of pulmonary embolism 2.0-3.0 Prevention of systemic embolism 2.0-3.0 HIGH RISK: Mechanical prosthetic valves 2.5-3.5 RBC (Bld) [#/Vol] 4.14 106/mcL Normal 4.10 - 5.30 10^6/mcL Workflow SS WBC (Bld) [#/Vol] 4.9 103/mcL Normal 4.5 - 10.8 10^3/mcL Workflow SS PROon 07-16-2024 INR Coag (PPP) [Relative time] 1.1 {INR} Normal [facility] Comment on above: Result Comment: [employer] (CHEST, 1991, 102:312S-25S)recommended therapeutic range for oral anticoagulant therapy is:LOW RISK: Prophylaxis of venous thrombosis INR: 2.0-3.0 Treatment of pulmonary embolism 2.0-3.0 Prevention of systemic embolism 2.0-3.0HIGH RISK: Mechanical prosthetic valves 2.5-3.5 Performed By: #### C BC, GFR, ADIFF, PRO, CRE, ANEU ####[place] [address] PT Coag (PPP) [Time] 12.9 s Normal 9.0-14.4 [facility] Comment on above: Result Comment: Effe ctive 01/13/08, Protime results may be affected by some antibiotics (i.e. Ciprofloxacin, Azithromycin, Bactrim) which may potentiate the action of oral anticoagulants, with further increases in Protime/INR. Performed By: #### C BC, GFR, ADIFF, PRO, CRE, ANEU ####[place] [address] CEAon 06-19-2024 CEA 212.9 ng/mL High 0.0-3.0 [facility] Comment on above: Result Comment: CEA Reference Range for SMOKERS: 0.0 - 5.0 ng/mL.Testing performed on the Cover IM analyzer usingdirect chemiluminesent technology. Patient resultsdetermined by assays using different manufacturers for methods may not be comparable. Performed By: #### C EA ####[facility] [place] [id number] Consultation Reporton 2023 Consultation Report Normal [facility] CT CHEST/ABD/PELVIS C+on CT CHEST/ABD/PELVIS C+ [place] [address] Patient: CLARISSE PEGUERO Phone#: : 1980 Age: 43 Gender: F Pt. Type: Out Account: [id number] Location: [facility] Ordering: NOEL EASTMAN Exam Date: 06/10/2024/15:25 Family Phys: ARLENE RODRIGEZ Charge Code: [id number] Physician: Russell Order #: [id number] Dose#: 56.8 mGy PROCEDURE: CT CHEST/ABD/PELVIS W COMPARISON: [facility], CT, ABDOMEN/PELVIS W CON, 03/08/2024, 21:10. [facility], CT, ABDOMEN/PELVIS W CON, 04/27/2024, 8:28. INDICATIONS: Mass lesion in colon. TECHNIQUE: After obtaining the patient's consent, CT images were obtained with oral contrast and intravenous contrast material. All CT scans at this facility use dose modulation, iterative reconstruction, and/or weight based dosing when appropriate to reduce radiation dose to as low as reasonably achievable. IV CONTRAST: Omnipaque 350,80ml CHEST DOSE: 14.40 CTDIvol(mGy) ABDOMEN DOSE: 42.40 CTDIvol(mGy) FINDINGS: LUNGS: There is an 8 millimeter nodule in the left upper and right upper lobes. VASCULATURE: Normal. No visible pulmonary arterial thrombus or attenuation. JUWAN: Normal. No mass or adenopathy. MEDIASTINUM: Normal. No mass or adenopathy. CARDIAC: Normal. No enlargement, pericardial thickening, or significant calcification. PLEURA: Normal. No mass or effusion. CHEST WALL: Normal. No mass or axillary adenopathy. LIVER: There is a 3.1 centimeter hypoattenuating irregularly-shaped focus in the right hepatic lobe. There is no evidence of associated hypervascularity. Metastatic lesion is suspected. The lesion has increased in size since prior exam. Left [place] lobe is a 15 millimeter hypodense focus and has increased in size since previous exam. BILIARY: Normal. No visible dilatation or calcification. PANCREAS: Normal. No lesion, fluid collection, ductal dilatation, or atrophy. SPLEEN: Normal. No enlargement or focal lesion. KIDNEYS: Normal. No mass, obstruction, or calcification. ADRENALS: Normal. No mass or enlargement. Continued Report - Page 2 of 2 Patient: CLARISSE PEGUERO Phone#: : [phone] Age: 43 Gender: F Pt. Type: Out Account: [id number] Location: 052 Ordering: NOEL EASTMAN Exam Date: 06/10/2024/15:25 Family Phys: ARLENE RODRIGEZ Charge Code: [id number] Physician: Russell Order #: [id number] Dose#: 56.8 mGy AORTA/VASCULAR: Normal. No aneurysm or dissection. RETROPERITONEUM: Normal. No mass or adenopathy. BOWEL/MESENTERY: Sigmoid diverticula are present. There is narrowing of the lumen at the sigmoid level. Mucosal thickening is present. There is loss of fat plane between the uterus and segment of colon raising possibility of fistulous connection. There is no evidence of free fluid or free air. ABDOMINAL WALL: Normal. No mass or hernia. URINARY BLADDER: Normal. No visible focal wall thickening, lesion, or calculus. PELVIC NODES: Normal. No adenopathy. PELVIC ORGANS: Normal. No visible mass. Pelvic organs appropriate for patient age. BONES: Normal. No bony lesion or fracture. OTHER: There is a partially imaged 19 millimeter subcutaneous nodule of the left buttock. CONCLUSION: 1. Enlarging right and left hepatic foci of diminished attenuation. 2. Thickened mucosa of the sigmoid colon is present. There is narrowing of the lumen. There is suggestion of in stool fistula at the site of previous mass interposed between the uterus and colon. 3. 19 millimeter subcutaneous nodule at the left buttock. 4. Bilateral upper lobe nodular foci. Dictated by: Inés Hurt MD on 06/10/2024 at 16:31 Approved by: Inés Hurt MD on 06/10/2024 at 16:49 Normal [facility] CT ABDOMEN/PELVIS Won 2023 CT ABDOMEN/PELVIS W [place] [address] Patient: CLARISSE PEGUERO Phone#: : 1980 Age: 43 Gender: F Pt. Type: Out Account: [id number] Location: [facility] Ordering: ARLENE RODRIGEZ Exam Date: 04/27/2024/8:28 Family Phys: ABDULKADIR ROSALES Charge Code: [id number] Physician: Russell Order #: [id number] Dose#: 40.6 PROCEDURE: CT ABDOMEN/PELVIS WITH CONTRAST COMPARISON: [facility], CT, ABDOMEN/PELVIS W CON, 03/08/2024, 21:10. INDICATIONS: Diverticulitis. TECHNIQUE: After obtaining the patient's consent, CT images were created with non-ionic intravenous contrast and oral contrast material. All CT scans at this facility use dose modulation, iterative reconstruction, and/or weight based dosing when appropriate to reduce radiation dose to as low as reasonably achievable. IV CONTRAST: Omnipaque 350,80ml TOTAL DOSE: 40.6 CTDIvol(mGy) FINDINGS: LIVER: A 2.5 centimeter hypodense focus is present in the mid right hepatic lobe. This structure has increased in size since prior examination. There is no evidence of associated hypervascularity. A 2nd 11 millimeter focus is present in the left lobe and is new since previous exam. Considering the short time interval metastatic disease should be considered. BILIARY: Normal. No visible dilatation or calcification. PANCREAS: Normal. No lesion, fluid collection, ductal dilatation, or atrophy. SPLEEN: Normal. No enlargement or focal lesion. KIDNEYS: Normal. No mass, obstruction, or calcification. ADRENALS: Normal. No mass or enlargement. AORTA/VASCULAR: Normal. No aneurysm or dissection. RETROPERITONEUM: Normal. No mass or adenopathy. BOWEL/MESENTERY: Sigmoid diverticula are present. There is mucosal thickening involving a segment of sigmoid colon consistent with inflammatory versus neoplastic process. Previously described fluid air mass is no longer present. ABDOMINAL WALL: Umbilical hernia with fat is present. URINARY BLADDER: Normal. No visible focal wall thickening, lesion, or calculus. PELVIC NODES: Normal. No adenopathy. PELVIC ORGANS: Normal. No visible mass. Pelvic organs appropriate for patient age. BONES: Normal. No bony lesion or fracture. Continued Report - Page 2 of 2 Patient: CLARISSE PEGUERO. Phone#: : 1980 Age: 43 Gender: F Pt. Type: Out Account: [id number] Location: 052 Ordering: ARLENE RODRIGEZ Exam Date: 04/27/2024/8:28 Family Phys: ABDULKADIR ROSALES Charge Code: [id number] Physician: Russell Order #: [id number] Dose#: 40.6 LUNG BASES: Normal. No visible pulmonary or pleural disease. OTHER: Negative. CONCLUSION: 1. There has been resolution of previously described air/fluid pelvic mass. There is continued mucosal thickening of a segment of sigmoid colon. Multiple diverticula are present. Etiology of the mucosal thickening occludes inflammatory versus neoplastic process. 2. There are 2 hypoattenuating foci in the right and left hepatic lobe. The right lobe lesion has increased in size since prior exam. The left lobe lesion is a new finding. Dictated by: Inés Hurt MD on 04/27/2024 at 14:44 Approved by: Inés Hurt MD on 04/27/2024 at 14:56 Normal [facility] KIDNEY 04-09-2024 [place] [address] Patient: CLARISSE PEGUERO Phone#: : 1980 Age: 43 Gender: F Pt. Type: Out Account: [id number] Location: 052 Ordering: ROSA LOVE Exam Date: 04/09/2024/8:09 Family Phys: Charge Code: [id number] Physician: Russell Order #: [id number] Dose#: PROCEDURE: KIDNEY ULTRASOUND COMPARISON: None. INDICATIONS: Right sided hydronephrosis TECHNIQUE: Ultrasound examination was performed of the kidneys and bladder. FINDINGS: RIGHT KIDNEY: Normal. Age-appropriate size and echotexture. Right kidney size 12.6 x 5.1 x 5 point cm. No mass or obstruction. LEFT KIDNEY: Normal. Age-appropriate size and echotexture. Left kidney size 13.1 x 4.8 x 4.3 cm. No mass or obstruction. OTHER: Negative. CONCLUSION: 1. There is no evidence of focal renal abnormality or hydronephrosis. Dictated by: Inés Hurt MD on 04/09/2024 at 13:09 Approved by: Inés Hurt MD on 04/09/2024 at 13:12 Normal [facility] LABORATORYOrdered By: SYSTEM SYSTEM on 04-02-2024 Albumin BCP dye [Mass/Vol] 3.1 G/dL Low 3.2 - 4.8 G/dL ADM SS Albumin/Globulin [Mass ratio] 0.9 {ratio} Normal 0.9 - 1.6 ratio AH ADM SS ALP [Catalytic activity/Vol] 65 U/L Normal 38 - 126 U/L AH ADM SS ALT No additional P-5'-P [Catalytic activity/Vol] 56 U/L High 10 - 49 U/L AH ADM SS Anisocytosis Ql (Bld) 3+ *NA* (04/02/24 9:05 AM) Invalid Interpretation Code Workflow SS AST [Catalytic activity/Vol] 44 U/L High 8 - 34 U/L AH ADM SS Basophils (Bld) [#/Vol] 0.0 103/mcL Normal 0.0 - 0.3 10^3/mcL AH Workflow SS Basophils/100 WBC (Bld) 0.4 % Normal 0.0 - 2.5 % Workflow SS Bilirubin [Mass/Vol] 0.70 mg/dL Normal 0.20 - 1.20 mg/dL AH ADM SS Comment on above: Interpretive Data: U se of this assay is not recommended for patients undergoing treatment with eltrombopag due to the potential for falsely elevated results. Calcium [Mass/Vol] 8.9 mg/dL Normal 8.7 - 10. 4 mg/dL ADM SS Chloride [Moles/Vol] 108 mmol/L Normal 98 - 11 0 mEq/L ADM SS CO2 [Moles/Vol] 24 mmol/L Normal 22 - 32 mEq/L ADM SS Creatinine [Mass/Vol] 0.47 mg/dL Low 0.50 - 1.20 mg/dL ADM SS Comment on above: Interpretive Data: T esting performed on [employer] analyzer using enzymatic creatinine methodology. Electrolyte Balance 7.0 mEq/L Normal 4.0 - 15 .0 mEq/L ADM SS Eosinophils (Bld) [#/Vol] 0.1 103/mcL Normal 0.0 - 0.7 10^3/mcL Workflow SS Eosinophils/100 WBC (Bld) 1.7 % Normal 0.0 - 6.0 % Workflow SS Erythrocyte distribution width (RBC) [Ratio] 30.5 % High 11.5 - 15.5 % Workflow SS GFR/1.73 sq M.predicted among blacks MDRD (S/P/Bld) [Vol rate/Area] ml/min/1.73sqm Invalid Interpretation Code [employer] Communication Chemistry S Comment on above: Interpretive Data: GFR Population mean for , Non- Americans Ages 20-29 = 116 mL/min/1.73 sq.m. Ages 30-39 = 107 mL/min/1.73 sq.m. Ages 40-49 = 99 mL/min/1.73 sq.m. Ages 50-59 = 93 mL/min/1.73 sq.m. Ages 60-69 = 85 mL/min/1.73 sq.m. Ages 70+ = 75 mL/min/1.73 sq.m. Chronic Kidney Disease: Less than 60 mL/min/1.73 square meters End Stage Renal Disease: Less than 15 mL/min/1.73 square meters GFR/1.73 sq M.predicted among non-blacks MDRD (S/P/Bld) [Vol rate/Area] ml/min/1.73sqm Invalid Interpretation Code [employer] Communication Chemistry S Comment on above: Interpretive Data: GFR Population mean for , Non- Americans Ages 20-29 = 116 mL/min/1.73 sq.m. Ages 30-39 = 107 mL/min/1.73 sq.m. Ages 40-49 = 99 mL/min/1.73 sq.m. Ages 50-59 = 93 mL/min/1.73 sq.m. Ages 60-69 = 85 mL/min/1.73 sq.m. Ages 70+ = 75 mL/min/1.73 sq.m. Chronic Kidney Disease: Less than 60 mL/min/1.73 square meters End Stage Renal Disease: Less than 15 mL/min/1.73 square meters Globulin 3.6 G/dL Normal 1.5 - 3.8 G/dL AH ADM SS Glucose [Mass/Vol] 89 mg/dL Normal 70 - 110 mg/dL AH ADM SS Hematocrit (Bld) [Volume fraction] 35.2 % Normal 34.0 - 46.0 % AH Workflow SS Hemoglobin (Bld) [Mass/Vol] 11.1 G/dL Low 12.0 - 16.0 G/dL AH Workflow SS Lymphocytes (Bld) [#/Vol] 1.4 103/mcL Normal 0.9 - 4.3 10^3/mcL AH Workflow SS Lymphocytes/100 WBC (Bld) 38.6 % Normal 20.0 - 40.0 % AH Workflow SS MCH (RBC) [Entitic mass] 25.7 pg Low 27.0 - 33.0 pg AH Workflow SS MCHC 31.7 G/dL Low 32.0 - 36.0 G/dL AH Workflow SS MCV (RBC) [Entitic vol] 81.3 fL Normal 80.0 - 99.0 fL AH Workflow SS Monocytes (Bld) [#/Vol] 0.3 103/mcL Normal 0.1 - 1.4 10^3/mcL AH Workflow SS Monocytes/100 WBC (Bld) 9.2 % Normal 2.0 - 13.0 % AH Workflow SS Neutrophils (Bld) [#/Vol] 1.9 103/mcL Low 2.3 - 8.1 10^3/mcL AH Workflow SS Neutrophils/100 WBC (Bld) 50.1 % Normal 50.0 - 75.0 % AH Workflow SS Platelet mean volume (Bld) [Entitic vol] 9.4 fL Normal 6.6 - 10.5 fL AH Workflow SS Platelets (Bld) [#/Vol] 223 103/mcL Normal 150 - 450 10^3/mcL AH Workflow SS Platelets LM Ql (Bld) Normal *NA* (04/02/24 9:05 AM) Invalid Interpretation Code AH Workflow SS Polychromasia LM Ql (Bld) 1+ *NA* (04/02/24 9:05 AM) Invalid Interpretation Code AH Workflow SS Potassium [Moles/Vol] 3.9 mmol/L Normal 3.5 - 5.0 mEq/L AH ADM SS Protein [Mass/Vol] 6.7 G/dL Normal 5.7 - 8.2 G/dL AH ADM SS Comment on above: Interpretive Data: * *Note - New Reference Range in effect 20 RBC (Bld) [#/Vol] 4.32 106/mcL Normal 4.10 - 5.30 10^6/mcL AH Workflow SS Sodium [Moles/Vol] 139 mmol/L Normal 136 - 145 mEq/L ADM SS Urea nitrogen [Mass/Vol] 8.0 mg/dL Normal 8.0 - 22.0 mg/dL AH ADM SS Urea nitrogen/Creatinine [Mass ratio] 17.0 ratio Normal 10.0 - 22.0 ratio AH ADM SS WBC (Bld) [#/Vol] 3.8 103/mcL Low 4.5 - 10.8 10^3/mcL Workflow SS LABORATORYOrdered By: Juani Yoon on 03-16-2024 Blood Glucose Testing Reason Routine (03/16/24 11:57 AM) [facility] Work Phone: Glucose [Mass/Vol] 87 mg/dL Normal 70 - 110 mg/dL [facility] Work Phone: LABORATORYOrdered By: SYSTEM SYSTEM on 03-16-2024 Basophils (Bld) [#/Vol] 0.0 103/mcL Normal 0.0 - 0.3 10^3/mcL Workflow SS Basophils/100 WBC (Bld) 0.4 % Normal 0.0 - 2.5 % AH Workflow SS Calcium [Mass/Vol] 9.1 mg/dL Normal 8.7 - 10. 4 mg/dL AH ADM SS Chloride [Moles/Vol] 105 mmol/L Normal 98 - 11 0 mEq/L AH ADM SS CO2 [Moles/Vol] 24 mmol/L Normal 22 - 32 mEq/L AH ADM SS Creatinine [Mass/Vol] 0.59 mg/dL Normal 0.50 - 1.20 mg/dL ADM SS Comment on above: Interpretive Data: T esting performed on [employer] analyzer using enzymatic creatinine methodology. Electrolyte Balance 10.0 mEq/L Normal 4.0 - 15 .0 mEq/L ADM SS Eosinophils (Bld) [#/Vol] 0.1 103/mcL Normal 0.0 - 0.7 10^3/mcL Workflow SS Eosinophils/100 WBC (Bld) 0.9 % Normal 0.0 - 6.0 % Workflow SS Erythrocyte distribution width (RBC) [Ratio] 18.8 % High 11.5 - 15.5 % Workflow SS GFR/1.73 sq M.predicted among blacks MDRD (S/P/Bld) [Vol rate/Area] ml/min/1.73sqm Invalid Interpretation Code [employer] Communication Chemistry S Comment on above: Interpretive Data: GFR Population mean for , Non- Americans Ages 20-29 = 116 mL/min/1.73 sq.m. Ages 30-39 = 107 mL/min/1.73 sq.m. Ages 40-49 = 99 mL/min/1.73 sq.m. Ages 50-59 = 93 mL/min/1.73 sq.m. Ages 60-69 = 85 mL/min/1.73 sq.m. Ages 70+ = 75 mL/min/1.73 sq.m. Chronic Kidney Disease: Less than 60 mL/min/1.73 square meters End Stage Renal Disease: Less than 15 mL/min/1.73 square meters GFR/1.73 sq M.predicted among non-blacks MDRD (S/P/Bld) [Vol rate/Area] ml/min/1.73sqm Invalid Interpretation Code [employer] Communication Chemistry S Comment on above: Interpretive Data: GFR Population mean for , Non- Americans Ages 20-29 = 116 mL/min/1.73 sq.m. Ages 30-39 = 107 mL/min/1.73 sq.m. Ages 40-49 = 99 mL/min/1.73 sq.m. Ages 50-59 = 93 mL/min/1.73 sq.m. Ages 60-69 = 85 mL/min/1.73 sq.m. Ages 70+ = 75 mL/min/1.73 sq.m. Chronic Kidney Disease: Less than 60 mL/min/1.73 square meters End Stage Renal Disease: Less than 15 mL/min/1.73 square meters Glucose [Mass/Vol] 110 mg/dL Normal 70 - 110 mg/dL ADM SS Hematocrit (Bld) [Volume fraction] 29.5 % Low 34.0 - 46.0 % AH Workflow SS Hemoglobin (Bld) [Mass/Vol] 9.1 G/dL Low 12.0 - 16.0 G/dL AH Workflow SS Lymphocytes (Bld) [#/Vol] 2.3 103/mcL Normal 0.9 - 4.3 10^3/mcL AH Workflow SS Lymphocytes/100 WBC (Bld) 26.9 % Normal 20.0 - 40.0 % AH Workflow SS MCH (RBC) [Entitic mass] 22.9 pg Low 27.0 - 33.0 pg AH Workflow SS MCHC 30.8 G/dL Low 32.0 - 36.0 G/dL AH Workflow SS MCV (RBC) [Entitic vol] 74.4 fL Low 80.0 - 99.0 fL AH Workflow SS Monocytes (Bld) [#/Vol] 0.4 103/mcL Normal 0.1 - 1.4 10^3/mcL AH Workflow SS Monocytes/100 WBC (Bld) 4.7 % Normal 2.0 - 13.0 % AH Workflow SS Neutrophils (Bld) [#/Vol] 5.6 103/mcL Normal 2.3 - 8.1 10^3/mcL AH Workflow SS Neutrophils/100 WBC (Bld) 67.1 % Normal 50.0 - 75.0 % AH Workflow SS Platelet mean volume (Bld) [Entitic vol] 9.0 fL Normal 6.6 - 10.5 fL AH Workflow SS Platelets (Bld) [#/Vol] 388 103/mcL Normal 150 - 450 10^3/mcL AH Workflow SS Potassium [Moles/Vol] 4.2 mmol/L Normal 3.5 - 5.0 mEq/L AH ADM SS RBC (Bld) [#/Vol] 3.96 106/mcL Low 4.10 - 5.30 10^6/mcL AH Workflow SS Sodium [Moles/Vol] 139 mmol/L Normal 136 - 145 mEq/L ADM SS Urea nitrogen [Mass/Vol] 6.0 mg/dL Low 8.0 - 22.0 mg/dL ADM SS Urea nitrogen/Creatinine [Mass ratio] 10.2 ratio Normal 10.0 - 22.0 ratio AH ADM SS WBC (Bld) [#/Vol] 8.4 103/mcL Normal 4.5 - 10.8 10^3/mcL Workflow SS LABORATORYOrdered By: Jorge Holm on 03-16-2024 Blood Glucose Testing Reason Routine (03/16/24 8:04 AM) [facility] Work Phone: Glucose [Mass/Vol] 119 mg/dL High 70 - 110 mg/dL [facility] Work Phone: LABORATORYOrdered By: Gabe Acevedo on 03-15-2024 Blood Glucose Testing Reason Routine (03/15/24 10:21 PM) [facility] Work Phone: Glucose [Mass/Vol] 155 mg/dL High 70 - 110 mg/dL [facility] Work Phone: LABORATORYOrdered By: SYSTEM SYSTEM on 03-15-2024 Anisocytosis Ql (Bld) 1+ *NA* (03/15/24 6:54 AM) Invalid Interpretation Code Workflow SS Band form neutrophils/100 WBC (Bld) 1.0 % Normal 0.0 - 5.0 % Workflow SS Basophils (Bld) [#/Vol] 0.0 103/mcL Normal 0.0 - 0.3 10^3/mcL Workflow SS Basophils/100 WBC (Bld) 0.0 % Normal 0.0 - 2.5 % Workflow SS Calcium [Mass/Vol] 9.2 mg/dL Normal 8.7 - 10. 4 mg/dL ADM SS Chloride [Moles/Vol] 106 mmol/L Normal 98 - 11 0 mEq/L ADM SS CO2 [Moles/Vol] 26 mmol/L Normal 22 - 32 mEq/L ADM SS Creatinine [Mass/Vol] 0.54 mg/dL Normal 0.50 - 1.20 mg/dL ADM SS Comment on above: Interpretive Data: T esting performed on [employer] analyzer using enzymatic creatinine methodology. Electrolyte Balance 8.0 mEq/L Normal 4.0 - 15 .0 mEq/L ADM SS Eosinophils (Bld) [#/Vol] 0.2 103/mcL Normal 0.0 - 0.7 10^3/mcL Workflow SS Eosinophils/100 WBC (Bld) 2.0 % Normal 0.0 - 6.0 % Workflow SS Erythrocyte distribution width (RBC) [Ratio] 18.0 % High 11.5 - 15.5 % Workflow SS GFR/1.73 sq M.predicted among blacks MDRD (S/P/Bld) [Vol rate/Area] ml/min/1.73sqm Invalid Interpretation Code Chemistry S Comment on above: Interpretive Data: GFR Population mean for , Non- Americans Ages 20-29 = 116 mL/min/1.73 sq.m. Ages 30-39 = 107 mL/min/1.73 sq.m. Ages 40-49 = 99 mL/min/1.73 sq.m. Ages 50-59 = 93 mL/min/1.73 sq.m. Ages 60-69 = 85 mL/min/1.73 sq.m. Ages 70+ = 75 mL/min/1.73 sq.m. Chronic Kidney Disease: Less than 60 mL/min/1.73 square meters End Stage Renal Disease: Less than 15 mL/min/1.73 square meters GFR/1.73 sq M.predicted among non-blacks MDRD (S/P/Bld) [Vol rate/Area] ml/min/1.73sqm Invalid Interpretation Code [employer] Communication Chemistry S Comment on above: Interpretive Data: GFR Population mean for , Non- Americans Ages 20-29 = 116 mL/min/1.73 sq.m. Ages 30-39 = 107 mL/min/1.73 sq.m. Ages 40-49 = 99 mL/min/1.73 sq.m. Ages 50-59 = 93 mL/min/1.73 sq.m. Ages 60-69 = 85 mL/min/1.73 sq.m. Ages 70+ = 75 mL/min/1.73 sq.m. Chronic Kidney Disease: Less than 60 mL/min/1.73 square meters End Stage Renal Disease: Less than 15 mL/min/1.73 square meters Glucose [Mass/Vol] 99 mg/dL Normal 70 - 110 mg/dL ADM SS Hematocrit (Bld) [Volume fraction] 28.5 % Low 34.0 - 46.0 % AH Workflow SS Hemoglobin (Bld) [Mass/Vol] 8.7 G/dL Low 12.0 - 16.0 G/dL AH Workflow SS Lymphocytes (Bld) [#/Vol] 2.4 103/mcL Normal 0.9 - 4.3 10^3/mcL AH Workflow SS Lymphocytes/100 WBC (Bld) 22.0 % Normal 20.0 - 40.0 % AH Workflow SS MCH (RBC) [Entitic mass] 22.4 pg Low 27.0 - 33.0 pg AH Workflow SS MCHC 30.4 G/dL Low 32.0 - 36.0 G/dL AH Workflow SS MCV (RBC) [Entitic vol] 73.7 fL Low 80.0 - 99.0 fL AH Workflow SS Microcytes Ql (Bld) 2+ *NA* (03/15/24 6:54 AM) Invalid Interpretation Code AH Workflow SS Monocytes (Bld) [#/Vol] 0.1 103/mcL Normal 0.1 - 1.4 10^3/mcL AH Workflow SS Monocytes/100 WBC (Bld) 1.0 % Low 2.0 - 13.0 % AH Workflow SS Myelocytes/100 WBC (Bld) 2.0 % Invalid Interpretation Code AH Workflow SS Neutrophils (Bld) [#/Vol] 8.0 103/mcL Normal 2.3 - 8.1 10^3/mcL AH Workflow SS Neutrophils/100 WBC (Bld) 72.0 % Normal 50.0 - 75.0 % AH Workflow SS Nucleated RBC 0.0 /100 WBC Invalid Interpretation Code Workflow SS Platelet mean volume (Bld) [Entitic vol] 8.6 fL Normal 6.6 - 10.5 fL AH Workflow SS Platelets (Bld) [#/Vol] 409 103/mcL Normal 150 - 450 10^3/mcL AH Workflow SS Platelets LM Ql (Bld) Normal *NA* (03/15/24 6:54 AM) Invalid Interpretation Code AH Workflow SS Polychromasia LM Ql (Bld) 1+ *NA* (03/15/24 6:54 AM) Invalid Interpretation Code AH Workflow SS Potassium [Moles/Vol] 4.2 mmol/L Normal 3.5 - 5.0 mEq/L AH ADM SS RBC (Bld) [#/Vol] 3.87 106/mcL Low 4.10 - 5.30 10^6/mcL Workflow SS Sodium [Moles/Vol] 140 mmol/L Normal 136 - 145 mEq/L ADM SS Urea nitrogen [Mass/Vol] 6.0 mg/dL Low 8.0 - 22.0 mg/dL ADM SS Urea nitrogen/Creatinine [Mass ratio] 11.1 ratio Normal 10.0 - 22.0 ratio ADM SS WBC (Bld) [#/Vol] 11.0 103/mcL High 4.5 - 10.8 10^3/mcL Workflow SS LABORATORYOrdered By: SYSTEM SYSTEM on 03-14-2024 Basophils (Bld) [#/Vol] 0.0 103/mcL Normal 0.0 - 0.3 10^3/mcL Workflow SS Basophils/100 WBC (Bld) 0.2 % Normal 0.0 - 2.5 % Workflow SS Calcium [Mass/Vol] 8.9 mg/dL Normal 8.7 - 10. 4 mg/dL ADM SS Chloride [Moles/Vol] 102 mmol/L Normal 98 - 11 0 mEq/L ADM SS CO2 [Moles/Vol] 28 mmol/L Normal 22 - 32 mEq/L ADM SS Creatinine [Mass/Vol] 0.51 mg/dL Normal 0.50 - 1.20 mg/dL ADM SS Comment on above: Interpretive Data: T esting performed on [employer] analyzer using enzymatic creatinine methodology. Electrolyte Balance 6.0 mEq/L Normal 4.0 - 15 .0 mEq/L ADM SS Eosinophils (Bld) [#/Vol] 0.1 103/mcL Normal 0.0 - 0.7 10^3/mcL Workflow SS Eosinophils/100 WBC (Bld) 0.4 % Normal 0.0 - 6.0 % Workflow SS Erythrocyte distribution width (RBC) [Ratio] 18.0 % High 11.5 - 15.5 % Workflow SS GFR/1.73 sq M.predicted among blacks MDRD (S/P/Bld) [Vol rate/Area] ml/min/1.73sqm Invalid Interpretation Code Chemistry S Comment on above: Interpretive Data: GFR Population mean for , Non- Americans Ages 20-29 = 116 mL/min/1.73 sq.m. Ages 30-39 = 107 mL/min/1.73 sq.m. Ages 40-49 = 99 mL/min/1.73 sq.m. Ages 50-59 = 93 mL/min/1.73 sq.m. Ages 60-69 = 85 mL/min/1.73 sq.m. Ages 70+ = 75 mL/min/1.73 sq.m. Chronic Kidney Disease: Less than 60 mL/min/1.73 square meters End Stage Renal Disease: Less than 15 mL/min/1.73 square meters GFR/1.73 sq M.predicted among non-blacks MDRD (S/P/Bld) [Vol rate/Area] ml/min/1.73sqm Invalid Interpretation Code Chemistry S Comment on above: Interpretive Data: GFR Population mean for , Non- Americans Ages 20-29 = 116 mL/min/1.73 sq.m. Ages 30-39 = 107 mL/min/1.73 sq.m. Ages 40-49 = 99 mL/min/1.73 sq.m. Ages 50-59 = 93 mL/min/1.73 sq.m. Ages 60-69 = 85 mL/min/1.73 sq.m. Ages 70+ = 75 mL/min/1.73 sq.m. Chronic Kidney Disease: Less than 60 mL/min/1.73 square meters End Stage Renal Disease: Less than 15 mL/min/1.73 square meters Glucose [Mass/Vol] 100 mg/dL Normal 70 - 110 mg/dL ADM SS Hematocrit (Bld) [Volume fraction] 27.6 % Low 34.0 - 46.0 % Workflow SS Hemoglobin (Bld) [Mass/Vol] 8.5 G/dL Low 12.0 - 16.0 G/dL Workflow SS Lymphocytes (Bld) [#/Vol] 2.4 103/mcL Normal 0.9 - 4.3 10^3/mcL Workflow SS Lymphocytes/100 WBC (Bld) 14.0 % Low 20.0 - 40.0 % Workflow SS MCH (RBC) [Entitic mass] 22.5 pg Low 27.0 - 33.0 pg AH Workflow SS MCHC 30.8 G/dL Low 32.0 - 36.0 G/dL Workflow SS MCV (RBC) [Entitic vol] 72.9 fL Low 80.0 - 99.0 fL AH Workflow SS Monocytes (Bld) [#/Vol] 0.7 103/mcL Normal 0.1 - 1.4 10^3/mcL AH Workflow SS Monocytes/100 WBC (Bld) 4.2 % Normal 2.0 - 13.0 % AH Workflow SS Neutrophils (Bld) [#/Vol] 13.9 103/mcL High 2.3 - 8.1 10^3/mcL AH Workflow SS Neutrophils/100 WBC (Bld) 81.2 % High 50.0 - 75.0 % AH Workflow SS Platelet mean volume (Bld) [Entitic vol] 8.8 fL Normal 6.6 - 10.5 fL AH Workflow SS Platelets (Bld) [#/Vol] 419 103/mcL Normal 150 - 450 10^3/mcL AH Workflow SS Potassium [Moles/Vol] 3.8 mmol/L Normal 3.5 - 5.0 mEq/L AH ADM SS RBC (Bld) [#/Vol] 3.79 106/mcL Low 4.10 - 5.30 10^6/mcL AH Workflow SS Sodium [Moles/Vol] 136 mmol/L Normal 136 - 145 mEq/L AH ADM SS Urea nitrogen [Mass/Vol] 6.0 mg/dL Low 8.0 - 22.0 mg/dL AH ADM SS Urea nitrogen/Creatinine [Mass ratio] 11.8 ratio Normal 10.0 - 22.0 ratio AH ADM SS WBC (Bld) [#/Vol] 17.2 103/mcL High 4.5 - 10.8 10^3/mcL Workflow SS GENTAMICIN:SUSC:PT:ISOLATE:O RDQN:MICon 03-13-2024 Gentamicin MARIA DEL ROSARIO [Susc] Light Escherichia coli Light Klebsiella oxytoca Raoultella ornithinolytica Light Clostridium sporogenes/Clostridium botulinum group 1 Confirmation to follow Susceptibility testing on anaerobic bacteria not done. Many technical and interpretive difficulties are associated with this testing and in many cases antimicrobial therapy is used as an adjunct to primary surgical management. Please contact Microbiology with any questions ([phone]). Moderate Streptococcus anginosus Unable to perform sensitivity testing due to the fastidious nature of the organism. [facility] Work Phone: Gentamicin MARIA DEL ROSARIO [Susc]on 03-01 Clostridium sporogenes/Clostridium botulinum group 1 Clostridium sporogenes/Clostridium botulinum group 1 [facility] Work Phone: Escherichia coli Escherichia coli [facility] Work Phone: GS Unsedimented 4+ Polymorphonuclear cells 2+ Mononuclear cells 4+ Gram Positive Cocci 2+ Gram Positive Rods 1+ Gram Negative Rods [facility] Work Phone: Klebsiella oxytoca Raoultella ornithinolytica Klebsiella oxytoca Raoultella ornithinolytica [facility] Work Phone: LABORATORYOrdered By: SYSTEM SYSTEM on 03-13-2024 Anisocytosis Ql (Bld) 1+ *NA* (03/13/24 8:59 AM) Invalid Interpretation Code Workflow SS Band form neutrophils/100 WBC (Bld) 2.0 % Normal 0.0 - 5.0 % Workflow SS Basophils (Bld) [#/Vol] 0.0 103/mcL Normal 0.0 - 0.3 10^3/mcL Workflow SS Basophils/100 WBC (Bld) 0.0 % Normal 0.0 - 2.5 % Workflow SS Eosinophils (Bld) [#/Vol] 0.0 103/mcL Normal 0.0 - 0.7 10^3/mcL Workflow SS Eosinophils/100 WBC (Bld) 0.0 % Normal 0.0 - 6.0 % Workflow SS Lymphocytes (Bld) [#/Vol] 3.1 103/mcL Normal 0.9 - 4.3 10^3/mcL Workflow SS Lymphocytes/100 WBC (Bld) 27.0 % Normal 20.0 - 40.0 % Workflow SS Microcytes Ql (Bld) 2+ *NA* (03/13/24 8:59 AM) Invalid Interpretation Code Workflow SS Monocytes (Bld) [#/Vol] 0.5 103/mcL Normal 0.1 - 1.4 10^3/mcL Workflow SS Monocytes/100 WBC (Bld) 4.0 % Normal 2.0 - 13.0 % Workflow SS Neutrophils (Bld) [#/Vol] 7.9 103/mcL Normal 2.3 - 8.1 10^3/mcL Workflow SS Neutrophils/100 WBC (Bld) 67.0 % Normal 50.0 - 75.0 % AH Workflow SS Nucleated RBC 0.0 /100 WBC Invalid Interpretation Code Workflow SS Ovalocytes LM Ql (Bld) 1+ *NA* (03/13/24 8:59 AM) Invalid Interpretation Code Workflow SS Platelets LM Ql (Bld) Normal *NA* (03/13/24 8:59 AM) Invalid Interpretation Code Workflow SS Poikilocytosis LM Ql (Bld) 1+ *NA* (03/13/24 8:59 AM) Invalid Interpretation Code Workflow SS Polychromasia LM Ql (Bld) 1+ *NA* (03/13/24 8:59 AM) Invalid Interpretation Code Workflow SS LABORATORYOrdered By: SYSTEM SYSTEM on 03-12-2024 Albumin BCP dye [Mass/Vol] 2.1 G/dL Low 3.2 - 4.8 G/dL ADM SS Albumin/Globulin [Mass ratio] 0.5 {ratio} Low 0.9 - 1.6 ratio ADM SS ALP [Catalytic activity/Vol] 111 U/L Normal 38 - 126 U/L ADM SS ALT No additional P-5'-P [Catalytic activity/Vol] 18 U/L Normal 10 - 49 U/L ADM SS Anisocytosis Ql (Bld) 1+ *NA* (03/12/24 8:36 AM) Invalid Interpretation Code Workflow SS AST [Catalytic activity/Vol] 22 U/L Normal 8 - 34 U/L ADM SS Band form neutrophils/100 WBC (Bld) 3.0 % Normal 0.0 - 5.0 % Workflow SS Basophils (Bld) [#/Vol] 0.0 103/mcL Normal 0.0 - 0.3 10^3/mcL Workflow SS Basophils/100 WBC (Bld) 0.0 % Normal 0.0 - 2.5 % Workflow SS Bilirubin [Mass/Vol] 0.60 mg/dL Normal 0.20 - 1.20 mg/dL ADM SS Comment on above: Interpretive Data: U se of this assay is not recommended for patients undergoing treatment with eltrombopag due to the potential for falsely elevated results. Eosinophils (Bld) [#/Vol] 0.0 103/mcL Normal 0.0 - 0.7 10^3/mcL Workflow SS Eosinophils/100 WBC (Bld) 0.0 % Normal 0.0 - 6.0 % AH Workflow SS Globulin 4.1 G/dL High 1.5 - 3.8 G/dL AH ADM SS Lymphocytes (Bld) [#/Vol] 2.2 103/mcL Normal 0.9 - 4.3 10^3/mcL AH Workflow SS Lymphocytes/100 WBC (Bld) 19.0 % Low 20.0 - 40.0 % AH Workflow SS Magnesium [Mass/Vol] 1.8 mg/dL Normal 1.6 - 2 .4 mg/dL AH ADM SS Metamyelocytes/100 WBC (Bld) 3.0 % Invalid Interpretation Code AH Workflow SS Microcytes Ql (Bld) 2+ *NA* (03/12/24 8:36 AM) Invalid Interpretation Code Workflow SS Monocytes (Bld) [#/Vol] 0.6 103/mcL Normal 0.1 - 1.4 10^3/mcL AH Workflow SS Monocytes/100 WBC (Bld) 5.0 % Normal 2.0 - 13.0 % AH Workflow SS Neutrophils (Bld) [#/Vol] 8.5 103/mcL High 2.3 - 8.1 10^3/mcL AH Workflow SS Neutrophils/100 WBC (Bld) 70.0 % Normal 50.0 - 75.0 % AH Workflow SS Nucleated RBC 0.0 /100 WBC Invalid Interpretation Code Workflow SS Platelets LM Ql (Bld) Normal *NA* (03/12/24 8:36 AM) Invalid Interpretation Code AH Workflow SS Protein [Mass/Vol] 6.2 G/dL Normal 5.7 - 8.2 G/dL AH ADM SS Comment on above: Interpretive Data: * *Note - New Reference Range in effect 20 LABORATORYOrdered By: Ruben Vences on 03-12-2024 HAV IgM IA Ql Non-Reactive (03/12/24 8:36 AM) Normal Non-Reacti ve AH ADM SS HAV IgM IA Ql No serological evide nce of a current Hepatitis A infection. Normal Chemistry S HBV core IgM IA Ql Non-Reactive (03/12/24 8:36 AM) Normal Non-Reacti ve AH ADM SS HBV core IgM IA Ql Samples with a value < 0.80 Index are considered nonreactive (negative) for IgM antibodies to hepatitis B core antigen. Normal Chemistry S HBV surface Ag IA Ql Non-Reactive (03/12/24 8:36 AM) Normal Non-Reacti ve AH ADM SS HCV Ab IA Ql Non-Reactive (03/12/24 8:36 AM) Normal Non-Reacti ve AH ADM SS HCV Ab IA Ql Nonreactive: Samples with a value < 0.80 are considered nonreactive (negative) for antibodies to HCV.A negative test result does not exclude the possibility of exposure to or infection with HCV. HCV antibodies may be undetectable in some stages of the infection and in some clinical conditions. Normal AH Chemistry S HIV 1+2 Ab IA Ql Negative Invalid Interpretation Code AH Chemistry S HIV 1/2 Ab Non-Reactive (03/12/24 8:36 AM) Normal Non-Reacti ve AH ADM SS LABORATORYOrdered By: Jhonathan Awad on 03-12-2024 Reagin Ab RPR Ql (S) Non-Reactive 12 (03/12/24 8:36 AM) Normal Non-Reacti ve AH [employer] SS Comment on above: Interpretive Data: T he RPR test is a non-treponemal assay useful as an aid in the diagnosis of primary and secondary syphilis. It converts to positive generally within 2 weeks after the appearance of a lesion. This test is also useful for monitoring response to antibiotic therapy. A positive RPR screening test will be followed by the FTA ABS test. False positive RPR tests may occur in 1) patients with underlying autoimmune disorders, 2) elderly patients, 3) , and 4) other conditions with abnormal serum globulins. LABORATORYOrdered By: SYSTEM SYSTEM on 03-11-2024 Basophils (Bld) [#/Vol] 0.0 103/mcL Normal 0.0 - 0.3 10^3/mcL AH Workflow SS Basophils/100 WBC (Bld) 0.4 % Normal 0.0 - 2.5 % AH Workflow SS Eosinophils (Bld) [#/Vol] 0.0 103/mcL Normal 0.0 - 0.7 10^3/mcL AH Workflow SS Eosinophils/100 WBC (Bld) 0.2 % Normal 0.0 - 6.0 % AH Workflow SS Lymphocytes (Bld) [#/Vol] 1.5 103/mcL Normal 0.9 - 4.3 10^3/mcL AH Workflow SS Lymphocytes/100 WBC (Bld) 14.4 % Low 20.0 - 40.0 % AH Workflow SS Monocytes (Bld) [#/Vol] 1.0 103/mcL Normal 0.1 - 1.4 10^3/mcL AH Workflow SS Monocytes/100 WBC (Bld) 9.1 % Normal 2.0 - 13.0 % AH Workflow SS Neutrophils (Bld) [#/Vol] 8.1 103/mcL Normal 2.3 - 8.1 10^3/mcL AH Workflow SS Neutrophils/100 WBC (Bld) 75.9 % High 50.0 - 75.0 % Workflow SS LABORATORYOrdered By: Joey Frank on 03-11-2024 Clostridium difficile PCR Negative 1 (03/11/24 3:51 AM) Normal Negative [employer] SS Comment on above: Result Comment: [place] [id number] Clostridium difficile PCR Int No tcdB gene DNA detected. Negative test results may occur from improper collection, handling or storage of specimen, technical error, or extremely low levels of target below the limit of detection of the assay. Invalid Interpretation Code AH Auto Viro/Sero SS LABORATORYOrdered By: SYSTEM SYSTEM on 03-10-2024 Cobalamin (Vitamin B12) [Mass/Vol] 537 pg/mL Normal 211 - 911 pg/mL AH ADM SS Folate [Mass/Vol] 15.90 ng/mL Normal 5.38 - 24.00 ng/mL AH ADM SS LABORATORYOrdered By: Bruno Garcia on 03-10-2024 ABO and Rh group Nom (Bld) Blood group O Rh(D) positive Invalid Interpretation Code BB Auto SS Blood group antibody screen Ql Negative ABSC (03/10/24 8:14 AM) Normal BB Auto SS RBC Product Ready RBC Ready for Pickup (03/10/24 7:59 AM) Normal BB Manual SS Laboratory - Microbiology an d Antimicrobial susceptibilityOrdered By: [facility] on 03-10-2024 Bacteria identified Cx Nom (Bld) Culture has been received in lab and is no growth to date. Culture will be held for four weeks. [facility] No Panel Informationon 03-10 Microscopic examination of blood, culture Blood Culture: No Growth at 5 days. [facility] Work Phone: LABORATORYOrdered By: SYSTEM SYSTEM on 03-09-2024 Ferritin [Mass/Vol] 46.5 ng/mL Normal 8.0 - 252.0 ng/mL [facility] Iron [Mass/Vol] 7 ug/dL Low 50 - 170 mcg/dL [facility] Iron binding capacity [Mass/Vol] 250 mcg/dL Normal 250 - 500 mcg/dL [facility] Iron saturation [Mass fraction] 3 % Invalid Interpretation Code [facility] aPTT Coag (Bld) [Time] 30.2 s Normal 25.0 - 35.0 seconds [facility] Comment on above: Interpretive Data: F or Heparin anticoagulation therapy, the recommended therapeutic range is: 54-77 seconds (APTT Correlation with Anti-Xa therapeutic range of 0.3-0.7 units/ml). PLEASE REFERENCE THE PHARMACY PROTOCOL FOR DOSING. aPTT Coag (Bld) [Time] 26.8 s Normal 25.0 - 35.0 seconds [facility] Comment on above: Interpretive Data: F or Heparin anticoagulation therapy, the recommended therapeutic range is: 54-77 seconds (APTT Correlation with Anti-Xa therapeutic range of 0.3-0.7 units/ml). PLEASE REFERENCE THE PHARMACY PROTOCOL FOR DOSING. Lactate [Moles/Vol] 1.5 mmol/L Normal 0.5 - 2. 2 mmol/L [facility] Magnesium [Mass/Vol] 1.9 mg/dL Normal 1.6 - 2 .4 mg/dL [facility] PT Coag (PPP) [Time] 19.9 s High 9.0 - 1 4.4 seconds [facility] Comment on above: Interpretive Data: E ffective 01/13/08, Protime results may be affected by some antibiotics (i.e. Ciprofloxacin, Azithromycin, Bactrim) which may potentiate the action of oral anticoagulants, with further increases in Protime/INR. PT International Ratio 1.7 ratio Invalid Interpretation Code [facility] Comment on above: Interpretive Data: Pam he [employer] (CHEST, 1992, [id number]) recommended therapeutic range for oral anticoagulant therapy is: LOW RISK: Prophylaxis of venous thrombosis INR: 2.0-3.0 Treatment of pulmonary embolism 2.0-3.0 Prevention of systemic embolism 2.0-3.0 HIGH RISK: Mechanical prosthetic valves 2.5-3.5 Troponin I.cardiac DL <= 0.01 ng/mL [Mass/Vol] 80 ng/L High 0 - 34 ng/L [facility] Comment on above: Interpretive Data: High Sensitive Troponin I Reference Ranges: Female: 0-34 ng/L Male: 0-54 ng/L Testing performed on Atempo analyzer using direct chemiluminescent technology. LABORATORYOrdered By: Daryl Pérez on 03-09-2024 FLUAV RNA EUGENE+probe Ql (Resp) Negative 15 (03/09/24 2:48 PM) Normal Negative [facility] Comment on above: Result Comment: Note s [id number] FLUBV RNA EUGENE+probe Ql (Resp) Negative 16 (03/09/24 2:48 PM) Normal Negative [facility] Comment on above: Result Comment: Note s [id number] RSV PCR Negative 17 (03/09/24 2:48 PM) Normal Negative [facility] Comment on above: Result Comment: [place] s [address] SARS-CoV-2 (COVID-19) RNA EUGENE+probe Ql (Resp) Negative 13, 14 (03/09/24 2:48 PM) Normal Negative [facility] V[facility]Sero SS Comment on above: Result Comment: Note s 61815 Interpretive Data: T his test has been authorized by FDA under an EUA for use by authorized laboratories and has not been FDA cleared or approved. Results from the Xpert Xpress SARS-CoV-2/Flu/RSV or Xpert Xpress SARS-CoV-2 only test should be correlated with the clinical history, epidemiological data, and other data available to the clinician evaluating the patient. Performance of the Xpert Xpress SARS-CoV-2/Flu/RSV or Xpert Xpress SARS-CoV-2 only test has only been established in nasopharyngeal swab specimens. Erroneous test results might occur from improper specimen collection; failure to follow the recommended sample collection, handling, and storage procedures; technical error; or sample mix-up.False negative results may occur if virus is present at levels below the analytical limit of detection. Viral nucleic acid may persist in vivo, independent of virus viability. Detection of analyte target(s) does not imply that the corresponding virus(es) are infectious or are the causative agents for clinical symptoms.Recent patient exposure to FluMist or other live attenuated influenza vaccines may cause inaccurate positive results. Laboratory - Microbiology an d Antimicrobial susceptibilityOrdered By: [facility] on 03-09-2024 Bacteria identified Cx Nom (Bld) Culture has been received in lab and is no growth to date. Culture will be held for four weeks. [facility] No Panel Informationon 03-09 Culture Urine No growth at 48 hours. [facility] Work Phone: Microscopic examination of blood, culture Blood Culture: No Growth at 5 days. [facility] Work Phone: TROPONIN I, HIGH SENSITIVITY on 03-09-2024 HS TROPONIN 182.3 pg/mL Critically high 0.0 - 51.4 [facility] Comment on above: Result Comment: { CA LLED TO IGLESIA/ER @ 0006 { READ BACK BY IGLESIA TO TRR Performed By: #### 2 23853 #### [facility],[address] [place] [address] APTTon 03-08-2024 aPTT Coag (Bld) [Time] 22.4 s Low 25.4 - 38.4 [facility] Comment on above: Performed By: #### 2 98096 #### [facility],[address] [place] [address] 15173 CBC + DIFFon 03-08-2024 ANISO 1+ Normal [facility] Comment on above: Performed By: #### 2 64427 #### [facility],[address] [place] [address] 32909 Baso # 0.01 x10EE3/UL Normal 0.00 - 0.10 [facility] Comment on above: Performed By: #### 2 22721 #### [facility],[address] [place] [address] 70340 Basophils/100 WBC (Bld) 0.3 % Normal 0.0 - 2.0 [facility] Comment on above: Performed By: #### 2 83714 #### [facility],[address] [place] [address] 13293 CBC + DIFF Normal [facility] Comment on above: Result Comment: CBC- COMPLETE BLOOD COUNT Performed By: #### 2 43912 #### [facility],[address] [place] [address] 09135 EO # 0.02 x10EE3/UL Normal 0.00 - 0.50 [facility] Comment on above: Performed By: #### 2 44805 #### [facility],[address] [place], [place] [id number] Eosinophils/100 WBC (Bld) 0.4 % Normal 0.0 - 7.0 [facility] Comment on above: Performed By: #### 2 32104 #### [facility],[address] [place] [address] Erythrocyte distribution width (RBC) [Ratio] 16.6 % High 12.0 - 15.6 [facility] Comment on above: Performed By: #### 2 32584 #### [place] [address] Hematocrit (Bld) [Volume fraction] 29.9 % Low 34.0 - 46.0 [facility] Comment on above: Performed By: #### 2 96568 #### [facility],[address] [place] [address] Hemoglobin (Bld) [Mass/Vol] 9.4 g/dL Low 12.0 - 16.0 [facility] Comment on above: Performed By: #### 2 22784 #### [place] [address] HYPOCHROM 1+ Normal [facility] Comment on above: Performed By: #### 2 70922 #### [address] [address] Lymph # 0.90 x10EE3/UL Normal 0.80 - 2.80 [facility] Comment on above: Performed By: #### 2 73309 #### [place] [address] Lymphocytes/100 WBC (Bld) 15.6 % Low 20.0 - 45.0 [facility] Comment on above: Performed By: #### 2 80733 #### [facility],[address] [place] [address] 78919 Lymphocytes/100 WBC (Bld) 29 % Normal 20 - 45 [facility] Comment on above: Performed By: #### 2 93938 #### [facility],[address] [place] [address] 86550 MANUAL DIFF SEE BELOW Normal [facility] Comment on above: Performed By: #### 2 79236 #### [facility],[address] [place] [address] 15031 MCH (RBC) [Entitic mass] 22 pg Low 27 - 33 [facility] Comment on above: Performed By: #### 2 00699 #### [facility],[address] [place] [address] MCHC 32 X10 3 Normal 32 - 36 [facility] Comment on above: Performed By: #### 2 23493 #### [facility],[address] [place] [address] 83095 MCV (RBC) [Entitic vol] 70 fL Low 80 - 99 [facility] Comment on above: Performed By: #### 2 85180 #### [facility],[address] [place] [address] 68881 MICROCYTES 2+ Normal [facility] Comment on above: Performed By: #### 2 20969 #### [facility],[address] [place] [address] 14556 [place] # 0.07 x10EE3/UL Low 0.20 - 1.00 [facility] Comment on above: Performed By: #### 2 36806 #### [facility],[address] [place] [address] 46793 MONOS % 1.3 % Normal 0.0 - 10.0 [facility] Comment on above: Performed By: #### 2 12584 #### [facility],[address] [place] [address] 98851 Morphology Alessandro (Bld) [Interp] SEE BELOW Normal [facility] Comment on above: Performed By: #### 2 82778 #### [facility],[address] [place] [address] 67655 Neut # 4.79 x10EE3/UL Normal 1.50 - 7.10 [facility] Comment on above: Performed By: #### 2 44746 #### [facility],[address] [place] [address] 22765 Neutrophils/100 WBC (Bld) 82.6 % High 46.0 - 76.0 [facility] Comment on above: Performed By: #### 2 01431 #### [facility],[address] [place] [address] 90171 PLATELET 424 x10EE3/UL Normal 150 - 450 [facility] Comment on above: Performed By: #### 2 38058 #### [facility],[address] [place] [address] 68467 Platelet mean volume (Bld) [Entitic vol] 9.4 fL Normal 6.6 - 10.5 [facility] Comment on above: Result Comment: AUTO MATED DIFFERENTIAL Performed By: #### 2 86411 #### [facility],[address] [place] [address] 93753 PLT EST NORMAL Normal [facility] Comment on above: Performed By: #### 2 61649 #### [facility],[address] [place] [address] 98979 RBC 4.27 x 10EE6/UL Normal 4.10 - 5.30 [facility] Comment on above: Performed By: #### 2 31184 #### [facility],[address] [place] [address] 67688 SEGS 71 % Normal 46 - 76 [facility] Comment on above: Performed By: #### 2 48157 #### [facility],[address] [place] [address] 94747 WBC 5.8 x 10EE3/UL Normal 4.5 - 10.8 [facility] Comment on above: Performed By: #### 2 17646 #### [facility],[address] [place] [address] 01626 CHEST 1 VIEWon 03-08-2024 CHEST 1 VIEW [place] [address] Patient: CLARISSE PEGUERO Phone#: : 1980 Age: 43 Gender: F Pt. Type: ER Account: [id number] Location: [facility] Ordering: CHRIS GROVE Exam Date: 03/08/2024/18:20 Family Phys: JAMES WETZELCASIE Charge Code: 539456 Physician: Russell Order #: [id number] Dose#: PROCEDURE: X-RAY CHEST 1 VIEW COMPARISON: None. INDICATIONS: Fever. FINDINGS: LUNGS: Normal. No significant pulmonary parenchymal abnormalities. VASCULATURE: Normal. Unremarkable pulmonary vasculature. CARDIAC: Normal. No cardiac silhouette abnormality or cardiomegaly. MEDIASTINUM: Normal. No visible mass or adenopathy. PLEURA: Normal. No effusion or pleural thickening. BONES: Normal. No fracture or visible bony lesion. OTHER: Negative. CONCLUSION: No acute disease. Dictated by: Inés Hurt MD on 03/09/2024 at 9:54 Approved by: Inés Hurt MD on 03/09/2024 at 9:54 Normal [facility] CMP with eGFRon 03-08-2024 AGE 43 years Normal [facility] Comment on above: Performed By: #### 2 70812 #### [facility],[address] [place] [address] 47544 Albumin [Mass/Vol] 2.8 g/dL Low 3.4 - 5.0 [facility] Comment on above: Performed By: #### 2 47142 #### [facility],[address] [place] [address] 14250 Albumin/Globulin [Mass ratio] 0.5 {ratio} Low 0.9 - 1.6 [facility] Comment on above: Performed By: #### 2 20625 #### [facility],[address] [place] [address] 23556 ALK PHOS 161 U/L High 46 - 116 [facility] Comment on above: Performed By: #### 2 72923 #### [facility],[address] [place] [address] 72313 ALT [Catalytic activity/Vol] 18 U/L Normal 16 - 63 [facility] Comment on above: Performed By: #### 2 56925 #### [facility],[address] [place] [address] 15352 Anion gap [Moles/Vol] 16 mmol/L Normal 10 - 20 [facility] Comment on above: Performed By: #### 2 09613 #### [facility],[address] [place] [address] 32460 AST [Catalytic activity/Vol] 20 U/L Normal 13 - 39 [facility] Comment on above: Performed By: #### 2 33458 #### [facility],[address] [place] [address] 13573 B/C RATIO 7 ratio Normal 0 - 30 [facility] Comment on above: Performed By: #### 2 06535 #### [facility],[address] [place] [address] 22561 Bilirubin [Mass/Vol] 1.7 mg/dL High 0.2 - 1.0 [facility] Comment on above: Performed By: #### 2 64689 #### [facility],[address] [place] [address] 04806 Calcium [Mass/Vol] 8.8 mg/dL Normal 8.5 - 10.1 [facility] Comment on above: Performed By: #### 2 61920 #### [facility],[address] [place] [address] 00003 Chloride [Moles/Vol] 98 mmol/L Normal 98 - 107 [facility] Comment on above: Performed By: #### 2 20451 #### [facility],[address] [place], [place] [id number] CMP with eGFR Normal [facility] Comment on above: Result Comment: COMP REHENSIVE METABOLIC PANEL Performed By: #### 2 23659 #### [facility],[address] [place] [address] CO2 [Moles/Vol] 23.7 mmol/L Normal 21.0 - 32.0 [facility] Comment on above: Performed By: #### 2 92097 #### [facility],[address] [place] [address] Creatinine [Mass/Vol] 1.02 mg/dL Normal 0.55 - 1.02 [facility] Comment on above: Performed By: #### 2 82459 #### [facility],[address] [place] [address] eGFR 59 ML/MINUTE Low 60 - 999 [facility] Comment on above: Performed By: #### 2 43206 #### [facility],[address] [place] [address] GFR/1.73 sq M.predicted among non-blacks MDRD (S/P/Bld) [Vol rate/Area] mL/min/{1.73_m2} Normal 60 - 999 [facility] Comment on above: Result Comment: ACCO RDING TO THE NATIONAL KIDNEY DISEASE EDUCATION PROGRAM(NKDE), A NORMAL eGFR IS A VALUE GREATER THAN OR EQUAL TO 60 ML/MIN/1.73 SQ METERS. CHRONIC KIDNEY DISEASE: <60mL/MIN/1.73 SQ METERS KIDNEY FAILURE: <15mL/MIN/1.73 SQ METERS THIS TEST SHOULD ONLY BE USED FOR PATIENTS 18 YEARS OF AGE AND OLDER. Performed By: #### 2 56426 #### [facility],[address] [place], [place] [phone] Globulin (S) [Mass/Vol] 5.4 g/dL High 1.5 - 3.8 [facility] Comment on above: Performed By: #### 2 18489 #### [facility],[address] [place] [address] 66387 Glucose [Mass/Vol] 97 mg/dL Normal 74 - 106 [facility] Comment on above: Performed By: #### 2 67868 #### [facility],[address] [place] [address] 89726 Potassium [Moles/Vol] 3.1 mmol/L Low 3.5 - 5.1 [facility] Comment on above: Performed By: #### 2 71633 #### [facility],[address] [place] [address] 81053 Protein [Mass/Vol] 8.2 g/dL Normal 6.4 - 8.2 [facility] Comment on above: Performed By: #### 2 84192 #### [facility],[address] [place] [address] 50418 Sodium [Moles/Vol] 135 mmol/L Low 136 - 145 [facility] Comment on above: Performed By: #### 2 42536 #### [facility],[address] [place] [address] 74296 Urea nitrogen [Mass/Vol] 7 mg/dL Normal 7 - 18 [facility] Comment on above: Performed By: #### 2 43028 #### [facility],[address] [place] [address] 64394 CORONAVIRUS (SARS) ANTIGEN T ESTon 03-08-2024 EXTERNAL QC DONE? YES Normal [facility] Comment on above: Performed By: #### 2 39286 #### [facility],[address] [place] [address] 53019 INTERNAL CONTROL PASS Normal [facility] Comment on above: Performed By: #### 2 66629 #### [facility],[address] [place] [address] 00298 SARS ANTIGEN Negative Normal NORMAL: NEGATIVE [facility] Comment on above: Performed By: #### 2 98400 #### [facility],[address] [place] [address] SEND TO ? NO Normal [facility] Comment on above: Result Comment: SARS -CoV-2 THIS TEST IS BEING USED UNDER THE FDA EUA PROCEDURE. THIS ASSAY HAS BEEN VALIDATED AT [facility] FOR USE WITH NASAL AND NASOPHARYNGEAL SWAB SPECIMENS. INTERPRETIVE DATA TEST RESULTS SHOULD ALWAYS BE CONSIDERED IN THE CONTEXT OF CLINICAL OBSERVATIONS AND EPIDEMIOLOGICAL DATA IN MAKING FINAL DIAGNOSIS AND PATIENT MANAGEMENT DECISIONS. PATIENT MANAGEMENT SHOULD FOLLOW CURRENT CDC GUIDELINES. THE SPARKLE SARS ANTIGEN LIAM DOES NOT DIFFERENTIATE BETWEEN SARS-CoV & SARS-CoV-2. A POSITIVE TEST RESULT INDICATES THE PRESENCE OF SARS-CoV-2 NUCLEOCAPSID PROTEIN ANTIGEN, AND THE PATIENT IS INFECTED WITH THE VIRUS AND PRESUMED TO BE CONTAGIOUS. A NEGATIVE TEST RESULT FOR THIS TEST MEANS THAT SARS-CoV-2 NUCLEOCAPSID PROTEIN ANTIGEN WAS NOT PRESENT IN THE SPECIMEN ABOVE THE LIMIT OF DETECTION. HOWEVER, A NEGATIVE RESULT DOES NOT RULE OUT COVID-19 AND SHOULD NOT BE USED THE SOLE BASIS FOR TREATMENT OR PATIENT MANAGEMENT DECISIONS. A NEGATIVE RESULT DOES NOT EXCLUDE THE POSSIBILITY OF COVID-19. NEGATIVE RESULTS, FROM PATIENTS WITH SYMPTOM ONSET BEYOND FIVE DAYS, SHOULD BE TREATED PRESUMPTIVE AND CONFIRMATION WITH A MOLECULAR ASSAY, IF NECESSARY, FOR PATIENT MANAGEMENT, MAY BE PERFORMED. WHEN DIAGNOSTIC TESTING IS NEGATIVE, THE POSSIBLILTY OF A FALSE NEGATIVE RESULT SHOULD BE CONSIDERED IN THE CONTEXT OF A PATIENT'S RECENT EXPOSURES AND THE PRESENCE OF CLINICAL SIGNS AND SYMPTOMS CONSISTENT WITH COVID-19. THE POSSIBILITY OF A FALSE NEGATIVE RESULT SHOULD ESPECIALLY BE CONSIDERED IF THE PATIENT'S RECENT EXPOSURES OR CLINICAL PRESENTATION INDICATE THAT COVID-19 IS LIKELY, AND DIAGNOSTIC TESTS FOR OTHER CAUSES OF ILLNESS (e.g., OTHER RESPIRATORY ILLNESS) ARE NEGATIVE. IF COVID-19 IS STILL SUSPECTED BASED ON EXPOSURE HISTORY TOGETHER WITH OTHER CLINICAL FINDINGS, RE-TESTING SHOULD BE CONSIDERED BY HEALTHCARE PROVIDERS IN CONSULTATION WITH PUBLIC HEALTH AUTHORITIES. Performed By: #### 2 88157 #### [facility],[address] [place], [place] [phone] CT ABDOMEN/PELVIS [facility] 2023 CT ABDOMEN/PELVIS [address] [address] Patient: CLARISSE PEGUERO Phone#: : [phone] Age: 43 Gender: F Pt. Type: ER Account: [id number] Location: [facility] Ordering: ABDIRAHMAN VICENTE Exam Date: 03/08/2024/21:10 Family Phys: JAMES WILCOX Charge Code: 785564 Physician: Russell Order #: [id number] Dose#: [id number] PROCEDURE: CT ABDOMEN/PELVIS WITH CONTRAST COMPARISON: None. INDICATIONS: FEVER TECHNIQUE: After obtaining the patient's consent, CT images were created with non-ionic intravenous contrast material. All CT scans at this facility use dose modulation, iterative reconstruction, and/or weight based dosing when appropriate to reduce radiation dose to as low as reasonably achievable. IV CONTRAST: Omnipaque 350,80ml TOTAL DOSE: 39.4 CTDIvol(mGy) FINDINGS: LIVER: 13 millimeter hyperdense focus in the right hepatic lobe too small to characterize with certainty. The liver is otherwise unremarkable. BILIARY: Normal. No visible dilatation or calcification. PANCREAS: Normal. No lesion, fluid collection, ductal dilatation, or atrophy. SPLEEN: Normal. No enlargement or focal lesion. KIDNEYS: Normal. No mass, obstruction, or calcification. ADRENALS: Normal. No mass or enlargement. AORTA/VASCULAR: Normal. No aneurysm or dissection. RETROPERITONEUM: Normal. No mass or adenopathy. BOWEL/MESENTERY: Diverticula the sigmoid colon are present. Interposed between the sigmoid colon and uterus is an irregularly-shaped mass with fluid level and air. Mass is 4.5 by 5.5 x 6.5 centimeters, likely abscess related to diverticular rupture. A ABDOMINAL WALL: Small umbilical hernia with fat. URINARY BLADDER: Normal. No visible focal wall thickening, lesion, or calculus. PELVIC NODES: Normal. No adenopathy. PELVIC ORGANS: Normal. No visible mass. Pelvic organs appropriate for patient age. BONES: Degenerative changes of the spine are present. LUNG BASES: Normal. No visible pulmonary or pleural disease. OTHER: Negative. Continued Report - Page 2 of 2 Patient: CLARISSE PEGUERO Phone#: : [phone] Age: 43 Gender: F Pt. Type: ER Account: [id number] Location: 052 Ordering: ABDIRAHMAN VICENTE Exam Date: 03/08/2024/21:10 Family Phys: JAMES WILCOX Charge Code: [id number] Physician: Russell Order #: [id number] Dose#: [id number] CONCLUSION: 1. Findings consistent with pelvic abscess, likely related to diverticular rupture. 2. Hypodense focus in the right hepatic lobe is too small to characterize with certainty. Dictated by: Inés Hurt MD on 03/09/2024 at 9:11 Approved by: Inés Hurt MD on 03/09/2024 at 9:16 [facility] CULTURE BLOOD [WARREN]on Microscopic examination of blood, culture CULTURE BLOOD [WARREN] _BLO[facility] CULTURE_ [facility] AND [facility]ACH[facility] FOR SCANNED REPORT 03/16/24.1027.DNP.COMPLE TE [facility] Comment on above: Performed By: #### 2 13492 #### [facility],[address] [place] [address] Microscopic examination of blood, culture CULTURE BLOOD [WARREN] _BLOOD CULTURE_ [facility] AND ATTACHMENTS FOR SCANNED REPORT 03/13/24.1311.DNP.COMPLE TE [facility] Comment on above: Performed By: #### 2 29217 #### [facility],[address] [place], [place] [phone] INFLUENZA VIRUS RAPID A/Bon 03-08-2024 INFLUENZA VIRUS RAPID A/B INFLUENZA A NEGATIVE INFLUENZA B NEGATIVE INTERNAL NEG QC PASS INTERNAL POS QC PASS EXTERNAL QC DONE? YES SEND TO IC? NO A NEGATIVE TEST RESULT DOES NOT EXCLUDE INFECTION WITH INFLUENZA A OR B. THEREFORE, THE RESULTS OBTAINED FROM THIS FLU TEST SHOULD BE USED IN CONJUCTION WITH CLINICAL FINDINGS TO MAKE AN ACCURATE DIAGNOSIS. A POSITIVE RESULT DOES NOT RULE OUT CO-INFECTIONS WITH OTHER PATHOGENS OR IDENTIFY ANY SPECIFIC INFLUENZA A VIRUS SUBTYPE.CO-INFECTION WITH INFLUENZA A AND B IS RARE. IT IS RECOMMENDED THAT DUAL POSITIVE RESULTS BE CONFIRMED BY VIRAL CULTURE OR AN FDA-CLEARED INFLUENZA A AND B MOLECULAR ASSAY. INDIVIDUALS WHO HAVE RECEIVED NASALLY ADMINISTERED INFLUENZA A VACCINE MAY TEST POSITIVE IN COMMERCIALLY AVAILABLE INFLUENZA RAPID DIAGNOSTIC TESTS FOR UP TO THREE DAYS. RESULT CRITICAL? NO Normal [facility] Comment on above: Performed By: #### 2 18880 #### [facility],[address] [place] [address] 87894 LACTATEon 03-08-2024 Lactate [Moles/Vol] 1.4 mmol/L Normal 0.4 - 2.0 [facility] Comment on above: Performed By: #### 2 10625 #### [facility],[address] [place] [address] 42190 Lactate [Moles/Vol] 3.6 mmol/L High 0.4 - 2.0 [facility] Comment on above: Result Comment: LACT ATE 3 HR NOTIFIED TO: _COURT/ER_@_1910 03/08/24.TR . . . LACTATE 3 HR NOTIFIED BY: _TRR 03/08/24.TR . . . Performed By: #### 2 61729 #### [facility],[address] [place] [address] 67707 PROTHROMBIN TIME AND INRon 0 03-08-2024 INR Coag (PPP) [Relative time] 1.9 {INR} High 0.8 - 1.2 [facility] Comment on above: Result Comment: T HE HEMOSIL THROMBOPLASTIN REAGENT USED IN THE PROTHROMBIN TIME TEST INTERACTS WITH THE DRUG CUBICIN (DAPTOMYCIN) AND WILL RESULT IN FALSELY ELEVATED PT / INR RESULTS INR INTERPRETATION INR INDICATION PREVENTION AND TREATMENT OF THROMBOEMBOLISM ASSOCIATED WITH: 2.0 - 3.0 ATRIAL FIBRILLATION, BIOPROSTHETIC HEART VALVES, PULMONARY EMBOLISM, VENOUS THROMBOSIS, SYSTEMIC EMBOLISM POST MYOCARDIAL INFARCTION 2.5 - 3.5 MECHANICAL HEART VALVES Performed By: #### 2 88010 #### [facility],[address] [place] [address] 18891 PROTHROMBIN TIME AND INR Normal [facility] Comment on above: Result Comment: PROT HROMBIN TIME AND INR Performed By: #### 2 17011 #### [facility],[address] [place], [place] [address] PT-COUMADIN 19.3 sec High 9.3 - 14.1 [facility] Comment on above: Performed By: #### 2 62290 #### [facility],[address] [place], [place] [address] TROPONIN I, HIGH SENSITIVITY on 03-08-2024 HS TROPONIN 230.4 pg/mL Critically high 0.0 - 51.4 [facility] Comment on above: Result Comment: { CA LLED TO DAVID/ER @ 2202 { READ BACK BY DAVID TO TRR Performed By: #### 2 37484 #### [facility],[address] [place], [place] [address] HS TROPONIN 32.0 pg/mL Normal 0.0 - 51.4 [facility] Comment on above: Performed By: #### 2 95350 #### [facility],[address] [place] [address] 37682 URINALYSISon 03-08-2024 Amorphous NONE Normal [facility] Comment on above: Performed By: #### 2 58178 #### [facility],[address] [place] [address] 30696 Bacteria 2+ Normal [facility] Comment on above: Performed By: #### 2 76948 #### [facility],[address] [place] [address] 96924 Bilirubin Ql (U) Negative Normal NORMAL: NEGATIVE [facility] Comment on above: Performed By: #### 2 36437 #### [facility],[address] [place] [address] 61861 Casts NONE Normal [facility] Comment on above: Performed By: #### 2 79602 #### [facility],[address] [place], [place] [address] Clarity (U) very cloudy Normal NORMAL: CLEAR [facility] Comment on above: Performed By: #### 2 20308 #### [facility],[address] [place] [address] 91192 Color (U) brown Normal NORMAL: YELLOW [facility] Comment on above: Performed By: #### 2 14472 #### [facility],[address] [place] [address] 88577 Crystals LM Nom (Urine sed) NONE Normal [facility] Comment on above: Performed By: #### 2 27039 #### [facility],[address] [place] [address] 73959 Epi Cells MODERATE Normal [facility] Comment on above: Performed By: #### 2 29092 #### [facility],[address] [place] [address] 77166 Glucose Ql (U) NORM Normal NORMAL: NORMAL [facility] Comment on above: Performed By: #### 2 51390 #### [facility],[address] [place] [address] 19085 Hemoglobin Ql (U) 150 Abnormal NORMAL: NEGATIVE [facility] Comment on above: Performed By: #### 2 82661 #### [facility],[address] [place] [address] 85814 Ketone Negative Normal NORMAL: NEGATIVE [facility] Comment on above: Performed By: #### 2 31139 #### [facility],[address] [place] [address] [id number] Leukocytes 500 Abnormal NORMAL: NEGATIVE [facility] Comment on above: Performed By: #### 2 [id number] #### [facility],[address] [place] [address] 23455 Mucous NONE Normal [facility] Comment on above: Performed By: #### 2 [id number] #### [facility],[address] [place] [address] 82565 Nitrite Ql (U) Negative Normal NORMAL: NEGATIVE [facility] Comment on above: Performed By: #### 2 [id number] #### [facility],[address] [place] [address] pH (U) 6 [pH] Normal NORMAL: 5.0-8.0 [facility] Comment on above: Performed By: #### 2 [id number] #### [facility],[address] [place] [address] Protein Ql (U) 100 Abnormal NORMAL: NEGATIVE [facility] Comment on above: Performed By: #### 2 [id number] #### [facility],[address] [place] [address] Rbc 5-10 Normal 0-3/hpf [facility] Comment on above: Performed By: #### 2 [id number] #### [facility],[address] [place] [address] Sp [place] 1.010 Normal NORMAL: 1.010-1.03 0 [facility] Comment on above: Performed By: #### 2 [id number] #### [facility],[address] [place] [address] Specimen Type Clean catch Normal [facility] Comment on above: Performed By: #### 2 [id number] #### [facility],[address] [place] [address] Urinalysis dipstick W Reflex Microscopic panel (U) SEE BELOW Normal [facility] Comment on above: Result Comment: MICR OSCOPIC Performed By: #### 2 [id number] #### [facility],[address] [place] [address] Urobilinog 8 Abnormal NORMAL: NORMAL [facility] Comment on above: Performed By: #### 2 [id number] #### [facility],[address] [place] [address] Wbc 16-25 Normal 0-5/hpf [facility] Comment on above: Performed By: #### 2 [id number] #### [facility],[address] [place] [address] Yeast NONE Normal [facility] Comment on above: Performed By: #### 2 [id number] #### [facility],[address] [place] [address] 66817 URINE CULTURE [CCL]on 2023 Bacteria identified Cx Nom (U) URCUL See Results Below See Below CULTURE, URINE MIXED MICROBIOTA 10,000 -<50,000 CFU/ml Mixed microbiota No further workup. Mixed microbiota can be due to???urine???contaminati on with s SOURCE: Urine (Nonspecific) [facility] [employer] [address] [place] [address] Raheel Nguyen III, M.D. [id number] Normal [facility] Comment on above: Performed By: #### 2 [id number] #### [facility],[address] [place], [place] [id number] 3D MAMM UNILAT LT DIAGNOSTIC on 02-27-2024 3D MAMM UNILAT LT DIAGNOSTIC [place] [address] Patient: CLARSISE PEGUERO Phone#: : 1980 Age: 43 Gender: F Pt. Type: Out Account: [id number] Location: Ordering: KAREN RICE Exam Date: 02/27/2024/9:53 Family Phys: Charge Code: 506148 Physician: Russell Order #: [id number] Dose#: PROCEDURE: LEFT DIAGNOSTIC BREAST TOMOSYNTHESIS MAMMOGRAM WITH CAD COMPARISON: [facility], 3D BILAT SCREEN, 02/19/2024, 14:00. INDICATIONS: Abnormal screening mammogram BREAST COMPOSITION: Almost entirely fatty. FINDINGS: DIAGNOSTIC CATEGORY 1--NEGATIVE: LEFT BREAST: No significant suspicious finding. RECOMMENDATIONS: ROUTINE MAMMOGRAM AND CLINICAL EVALUATION IN 12 MONTHS. PLEASE NOTE: A NORMAL MAMMOGRAM DOES NOT EXCLUDE THE POSSIBILITY OF BREAST CANCER. A CLINICALLY SUSPICIOUS PALPABLE LUMP SHOULD BE BIOPSIED. THIS FACILITY UTILIZES A REMINDER SYSTEM TO ENSURE THAT ALL PATIENTS RECEIVE REMINDER LETTERS FOR APPOINTMENTS. THIS INCLUDES REMINDERS FOR ROUTINE MAMMOGRAMS, DIAGNOSITC MAMMOGRAMS, OR OTHER BREAST IMAGING INTERVENTIONS WHEN APPROPRIATE. THIS PATIENT WILL BE PLACED IN THE APPROPRIATE REMINDER SYSTEM. Dictated by: Rema Beckett MD on 02/27/2024 at 10:49 Approved by: Rema Beckett MD on 02/27/2024 at 10:53 Normal [facility] 3D MAMM BILAT SCREENon 02-18 3D MAMM BILAT SCREEN [place] [address] Patient: CLARISSE PEGUERO Phone#: : 1980 Age: 43 Gender: F Pt. Type: Out Account: [id number] Location: Ordering: KAREN RICE Exam Date: 02/19/2024/14:00 Family Phys: Charge Code: 076850 Physician: Russell Order #: [id number] Dose#: This report includes an Addendum and supersedes previous reports for this exam. PROCEDURE: BILATERAL SCREENING BREAST TOMOSYNTHESIS MAMMOGRAM WITH CAD COMPARISON: None. INDICATIONS: Baseline screening. BREAST COMPOSITION: Almost entirely fatty. FINDINGS: DIAGNOSTIC CATEGORY 0--INCOMPLETE: NEED ADDITIONAL IMAGING EVALUATION. LEFT BREAST: ASYMMETRY visible on only the cc view, located in the central breast, at the anterior depth, with size of approximately 11x8 mm. RECOMMENDATIONS: ADDITIONAL MAMMOGRAPHIC VIEWS REQUIRED: LEFT BREAST --We will call the patient back for additional views and issue an additional report. PLEASE NOTE: A NORMAL MAMMOGRAM DOES NOT EXCLUDE THE POSSIBILITY OF BREAST CANCER. A CLINICALLY SUSPICIOUS PALPABLE LUMP SHOULD BE BIOPSIED. THIS FACILITY UTILIZES A REMINDER SYSTEM TO ENSURE THAT ALL PATIENTS RECEIVE REMINDER LETTERS FOR APPOINTMENTS. THIS INCLUDES REMINDERS FOR ROUTINE MAMMOGRAMS, DIAGNOSITC MAMMOGRAMS, OR OTHER BREAST IMAGING INTERVENTIONS WHEN APPROPRIATE. THIS PATIENT WILL BE PLACED IN THE APPROPRIATE REMINDER SYSTEM. Dictated by: Rema Beckett MD on 02/19/2024 at 18:05 Approved by: Rema Beckett MD on 02/19/2024 at 18:20 ADDENDUM: FINDINGS: RIGHT BREAST: No significant suspicious finding. Continued Report - Page 2 of 2 Patient: CLARISSE PEGUERO Phone#: : 1980 Age: 43 Gender: F Pt. Type: Out Account: [id number] Location: Ordering: KAREN RICE Exam Date: 02/19/2024/14:00 Family Phys: Charge Code: 205747 Physician: Russell Order #: [id number] Dose#: RECOMMENDATIONS: ADDITIONAL MAMMOGRAPHIC VIEWS REQUIRED: LEFT BREAST --We will call the patient back for additional views and issue an addendum report. Dictated by: Rema Beckett MD on 02/27/2024 at 10:52 Approved by: Rema Beckett MD on 02/27/2024 at 10:52 Normal [facility] THIN PREP ([place]) HPV DNAon 0 02-12-2024 THIN PREP ([place]) HPV DNA Normal [facility] Comment on above: Result Comment: SEE SEPERATE REPORT Performed By: #### 2 [id number] #### [facility],[address] [place] [address] Vital Signs Date Time Vital Sign Value Performing Clinician Faci lity 05-06-2025 11:03-0500 Body temperature 98.24 [degF] DR ROSEANN Dixon [facility] 05-06-2025 11:03-0500 Diastolic Blood Pressure Non-Invasive 70 mm[Hg] DR ROSEANN LUNDBERG MD [facility] 05-06-2025 11:03-0500 Heart rate 84 /min DR ROSEANN Dixon [facility] 05-06-2025 11:03-0500 Systolic Blood Pressure Non-Invasive 108 mm[Hg] DR ROSEANN LUNDBERG MD [facility] 05-06-2025 11:02-0500 Body height [address] ROSEANN Dixon [facility] 05-04-2025 13:04-0500 Diastolic Blood Pressure Non-Invasive 72 mm[Hg] DR ROSEANN LUNDBERG MD [facility] 05-04-2025 13:04-0500 Systolic Blood Pressure Non-Invasive 124 mm[Hg] DR ROSEANN LUNDBERG MD [facility] 05-04-2025 09:36-0500 Body height [address] ROSEANN Dixon [facility] 05-04-2025 09:36-0500 Body weight 101.[address] ROSEANN Dixon [facility] 05-04-2025 09:36-0500 Body weight 39.73 kg/m2 DR ROSEANN Dixon [address] [place] [address] 05-04-2025 09:34-0500 Blood Pressure Cuff Size DR ROSEANN LUNDBERG MD [address] [place] [address] 05-04-2025 09:34-[address] ROSEANN LUNDBERG MD [address] [place] [address] 05-04-2025 09:34-[address] ROSEANN LUNDBERG MD [facility] 05-04-2025 09:34-0500 Body temperature 98.24 [degF] DR ROSEANN Dixon [facility] 05-04-2025 09:34-0500 Diastolic Blood Pressure Non-Invasive 82 mm[Hg] DR ROSEANN LUNDBERG MD [facility] 05-04-2025 09:34-0500 Heart rate 82 /min DR ROSEANN Dixon [facility] 05-04-2025 09:34-0500 Systolic Blood Pressure Non-Invasive 128 mm[Hg] DR ROSEANN LUNDBERG MD [facility] 05-04-2025 07:58-0500 Body weight 101.[address] ROSEANN Dixon [facility] 04-22-2025 09:00-0400 Body temperature 96.26 [degF] ARLENE RODRIGEZ MD [facility] 04-22-2025 09:00-0400 Diastolic Blood Pressure Non-Invasive 64 mm[Hg] ARLENE RODRIGEZ MD [facility] 04-22-2025 09:00-0400 Heart rate 68 /min ARLENE RODRIGEZ MD [facility] 04-22-2025 09:00-0400 Systolic Blood Pressure Non-Invasive 100 mm[Hg] ARLENE RODRIGEZ MD [facility] 04-22-2025 08:42-0400 Body temperature 96.8 [degF] ARLENE RODRIGEZ MD [facility] 04-22-2025 08:42-0400 Diastolic Blood Pressure Non-Invasive 66 mm[Hg] ARLENE ORDRIGEZ MD [facility] 04-22-2025 08:42-0400 Heart rate 69 /min ARLENE RODRIGEZ MD [facility] 04-22-2025 08:42-0400 Respiratory rate 16 /min ARLENE RODRIGEZ MD [facility] 04-22-2025 08:42-0400 Systolic Blood Pressure Non-Invasive 112 mm[Hg] ARLENE RODRIGEZ MD [facility] 04-22-2025 08:34-0400 Diastolic Blood Pressure Non-Invasive 61 mm[Hg] ARLENE RODRIGEZ MD [facility] 04-22-2025 08:34-0400 Heart rate 58 /min ARLENE RODRIGEZ MD [facility] 04-22-2025 08:34-0400 Systolic Blood Pressure Non-Invasive 113 mm[Hg] ARLENE RODRIGEZ MD [facility] 04-22-2025 08:20-0400 Body temperature 97.16 [degF] ARLENE RODRIGEZ MD [facility] 04-22-2025 08:20-0400 Heart rate 89 /min ARLENE RODRIGEZ MD [facility] 04-22-2025 08:20-0400 Mean blood pressure 78 mm[Hg] ARLENE RODRIGEZ MD [facility] 04-22-2025 08:15-0400 Respiratory Rate - Anes 0 br/min ARLENE RODRIGEZ MD [facility] 04-22-2025 08:10-0400 Respiratory Rate - Anes 28 br/min ARLENE RODRIGEZ MD [facility] 04-22-2025 08:05-0400 Respiratory Rate - Anes 24 br/min ARLENE RODRIGEZ MD [facility] 04-22-2025 05:49-0400 Body height 160 cm ARLENE RODRIGEZ MD [facility] 04-22-2025 05:49-0400 Body weight 99.8 kg ARLENE RODRIGEZ MD [facility] 04-22-2025 05:36-0400 Heart rate 72 /min ARLENE RODRIGEZ MD [facility] 04-19-2025 11:11-0400 Body height 160 cm ARLENE RODRIGEZ MD [facility] 04-19-2025 11:11-0400 Body weight 39.84 kg/m2 ARLENE RODRIGEZ MD [facility] 04-19-2025 11:11-0400 Body weight 102 kg ARLENE RODRIGEZ MD [facility] 11-05-2024 15:56-0400 Body height [address] ROSEANN Dixon [facility] 11-05-2024 15:42-0400 Body temperature 98.06 [degF] DR ROSEANN Dixon [facility] 11-05-2024 15:42-0400 Diastolic Blood Pressure Non-Invasive 63 mm[Hg] DR ROSEANN LUNDBERG MD [facility] 11-05-2024 15:42-0400 Heart rate 88 /min DR ROSEANN Dixon [facility] 11-05-2024 15:42-0400 Systolic Blood Pressure Non-Invasive 119 mm[Hg] DR ROSEANN LUNDBERG MD [address] [place] [address] 11-03-2024 09:43-0400 Body height [address] ROSEANN Dixon [address] [place] [address] 11-03-2024 09:43-0400 Body weight 98.[address] ROSEANN Dixon [address] [place] [address] 11-03-2024 09:43-0400 Body weight 38.4 kg/m2 DR ROSEANN Dixon [address] [place] [address] 11-03-2024 09:42-0400 Body temperature 98.42 [degF] DR ROSEANN Dixon [facility] 11-03-2024 09:42-0400 Diastolic Blood Pressure Non-Invasive 61 mm[Hg] DR ROSEANN LUNDBERG MD [facility] 11-03-2024 09:42-0400 Heart rate 77 /min DR ROSEANN Dxion [facility] 11-03-2024 09:42-0400 Systolic Blood Pressure Non-Invasive 114 mm[Hg] DR ROSEANN LUNDBERG MD [address] [place] [address] 11-03-2024 08:56-0400 Body weight 98.[address] ROSEANN Dixon [facility] 10-22-2024 12:26-0400 Body height [address] ROSEANN Dixon [facility] 10-22-2024 12:14-0400 Blood Pressure Cuff Size DR ROSEANN LUNDBERG MD [address] [place] [address] 10-22-2024 12:14-[address] ROSEANN LUNDBERG MD [address] [place] [address] 10-22-2024 12:14-[address] ROSEANN LUNDBERG MD [address] [place] [address] 10-22-2024 12:14-0400 Body temperature 98.24 [degF] DR ROSEANN Dixon [address] 10-22-2024 12:14-0400 Diastolic Blood Pressure Non-Invasive 54 mm[Hg] DR ROSEANN LUNDBERG MD [address] [place] [address] 10-22-2024 12:14-0400 Heart rate 71 /min DR ROSEANN Dixon [address] [place] [address] 10-22-2024 12:14-0400 Systolic Blood Pressure Non-Invasive 109 mm[Hg] DR ROSEANN LUNDBERG MD [address] [place] [address] 10-20-2024 13:56-0400 Diastolic Blood Pressure Non-Invasive 58 mm[Hg] DR ROSEANN LUNDBERG MD [address] [place] [address] 10-20-2024 13:56-0400 Heart rate 62 /min DR ROSEANN Dixon [address] [place] [address] 10-20-2024 13:56-0400 Reason For Taking VItal Signs DR ROSEANN LUNDBERG MD [address] [place] [address] 10-20-2024 13:56-0400 Systolic Blood Pressure Non-Invasive 121 mm[Hg] DR ROSEANN LUNDBERG MD [address] [place] [address] 10-20-2024 09:46-0400 Body height [address] ROSEANN Dixon [address] [place] [address] 10-20-2024 09:46-0400 Body weight 98.[address] ROSEANN Dixon [facility] 10-20-2024 09:46-0400 Body weight 38.59 kg/m2 DR ROSEANN Dixon [facility] 10-20-2024 09:44-0400 Blood Pressure Cuff Size DR ROSEANN LUNDBERG MD [address] [place] [address] 10-20-2024 09:44-[address] ROSEANN LUNDBERG MD [address] [place] [address] 10-20-2024 09:44-[address] ROSEANN LUNDBERG MD [address] 10-20-2024 09:44-0400 Body temperature 98.6 [degF] DR ROSEANN Dixon [address] [place] [address] 10-20-2024 09:44-0400 Diastolic Blood Pressure Non-Invasive 57 mm[Hg] DR ROSEANN LUNDBERG MD [address] [place] [address] 10-20-2024 09:44-0400 Heart rate 60 /min DR ROSEANN Dixon [address] [place] [address] 10-20-2024 09:44-0400 Systolic Blood Pressure Non-Invasive 118 mm[Hg] DR ROSEANN LUNDBERG MD [address] [place] [address] 10-20-2024 08:31-0400 Body weight 98.[address] ROSEANN Dixon [address] [place] [address] 10-08-2024 13:48-0400 Body temperature 98.42 [degF] DR ROSEANN Dixon [address] [place] [address] 10-08-2024 13:48-0400 Diastolic Blood Pressure Non-Invasive 56 mm[Hg] DR ROSEANN LUNDBERG MD [address] [place] [address] 10-08-2024 13:48-0400 Heart rate 69 /min DR ROSEANN Dixon [facility] 10-08-2024 13:48-0400 Respiratory rate 18 /min DR ROSEANN Dixon [facility] 10-08-2024 13:48-0400 Systolic Blood Pressure Non-Invasive 101 mm[Hg] DR ROSEANN LUNDBERG MD [address] [place] [address] 10-08-2024 13:47-0400 Body height [address] ROSEANN Dixon [address] [place] [address] 10-06-2024 15:56-0400 Diastolic Blood Pressure Non-Invasive 72 mm[Hg] DR ROSEANN LUNDBERG MD [address] [place] [address] 10-06-2024 15:56-0400 Systolic Blood Pressure Non-Invasive 121 mm[Hg] DR ROSEANN LUNDBERG MD [address] [place] [address] 10-06-2024 10:27-0400 Body height [address] ROSEANN Dixon [address] [place] [address] 10-06-2024 10:27-0400 Body weight 97.[address] ROSEANN Dixon [address] [place] [address] 10-06-2024 10:27-0400 Body weight 37.97 kg/m2 DR ROSEANN Dixon [address] [place] [address] 10-06-2024 10:26-0400 Respiratory rate 18 /min DR ROSEANN Dixon [address] [place] [address] 10-06-2024 10:16-0400 Body temperature 97.88 [degF] DR ROSEANN Dixon [address] [place] [address] 10-06-2024 10:16-0400 Diastolic Blood Pressure Non-Invasive 66 mm[Hg] DR ROSEANN LUNDBERG MD [address] [place] [address] 10-06-2024 10:16-0400 Heart rate 69 /min DR ROSEANN Dixon [facility] 10-06-2024 10:16-0400 Systolic Blood Pressure Non-Invasive 107 mm[Hg] DR ROSAENN LUNDBERG MD [facility] 10-06-2024 09:30-0400 Body weight 97.[address] ROSEANN Dixon [facility] 10-01-2024 12:47-0400 Body temperature 100.22 [degF] DR ROSEANN LUNDBERG MD [facility] 10-01-2024 12:47-0400 Diastolic Blood Pressure Non-Invasive 65 mm[Hg] DR ROSEANN LUNDBERG MD [facility] 10-01-2024 12:47-0400 Heart rate 77 /min DR ROSEANN Dixon [facility] 10-01-2024 12:47-0400 Systolic Blood Pressure Non-Invasive 118 mm[Hg] DR ROSEANN LUNDBERG MD [facility] 09-30-2024 12:13-0400 Blood Pressure Cuff Size CASIE TEQUILA PA-C [facility] 09-30-2024 12:13-0400 Blood Pressure Location CASIE TEQUILA PA-C [facility] 09-30-2024 12:13-0400 Blood Pressure Method CASIE TEQUILA PA-C [facility] 09-30-2024 12:13-0400 Body height 160 cm CASIE TEQUILA PA-C [facility] 09-30-2024 12:13-0400 Body weight 97.7 kg CASIE TEQUILA PA-C [facility] 09-30-2024 12:13-0400 Body weight 38.16 kg/m2 CASIE TEQUILA PA-C [facility] 09-30-2024 12:13-0400 Diastolic Blood Pressure Non-Invasive 61 mm[Hg] CASIE TEQUILA PA-C [facility] 09-30-2024 12:13-0400 Heart rate 93 /min CASIE TEQUILA PA-C [facility] 09-30-2024 12:13-0400 Respiratory rate 18 /min CASIE TEQUILA PA-C [facility] 09-30-2024 12:13-0400 Systolic Blood Pressure Non-Invasive 102 mm[Hg] CASIE TEQUILA PA-C [facility] 09-24-2024 11:43-0400 Body temperature 98.24 [degF] DR ROSEANN Dixon [facility] 09-24-2024 11:43-0400 Diastolic Blood Pressure Non-Invasive 66 mm[Hg] DR ROSEANN LUNDBERG MD [facility] 09-24-2024 11:43-0400 Heart rate 80 /min DR ROSEANN Dixon [facility] 09-24-2024 11:43-0400 Systolic Blood Pressure Non-Invasive 115 mm[Hg] DR ROSEANN LUNDBERG MD [facility] 09-24-2024 11:41-0400 Body height [address] ROSEANN Dixon [facility] 09-22-2024 13:14-0400 Diastolic Blood Pressure Non-Invasive 78 mm[Hg] DR ROSEANN LUNDBERG MD [facility] 09-22-2024 13:14-0400 Heart rate 80 /min DR ROSEANN Dixon [facility] 09-22-2024 13:14-0400 Systolic Blood Pressure Non-Invasive 125 mm[Hg] DR ROSEANN LUNDBERG MD [facility] 09-22-2024 09:22-0400 Body height [address] ROSEANN Dixon [facility] 09-22-2024 09:22-0400 Body weight 98.[address] ROSEANN Dixon [facility] 09-22-2024 09:22-0400 Body weight 38.63 kg/m2 DR ROSEANN Dixon [facility] 09-22-2024 09:21-0400 Body temperature 98.42 [degF] DR ROSEANN Dixon [facility] 09-22-2024 09:21-0400 Diastolic Blood Pressure Non-Invasive 51 mm[Hg] DR ROSEANN LUNDBERG MD [facility] 09-22-2024 09:21-0400 Heart rate 77 /min DR ROSEANN Dixon [facility] 09-22-2024 09:21-0400 Respiratory rate 20 /min DR ROSEANN Dixon [facility] 09-22-2024 09:21-0400 Systolic Blood Pressure Non-Invasive 98 mm[Hg] DR ROSEANN LUNDBERG MD [facility] 09-22-2024 07:46-0400 Body weight 98.[address] ROSEANN Dixon [facility] 09-16-2024 12:40-0400 Body height 160 cm ZACH SCHWARZENTRAUB PA-C [facility] 09-16-2024 12:40-0400 Body temperature 98.42 [degF] ZACH SCHWARZENTRAUB PA-C [facility] 09-16-2024 12:40-0400 Body weight 97 kg ZACH SCHWARZENTRAUB PA-C [facility] 09-16-2024 12:40-0400 Body weight 37.89 kg/m2 ZACH SCHWARZENTRAUB PA-C [facility] 09-16-2024 12:40-0400 Diastolic Blood Pressure Non-Invasive 57 mm[Hg] ZACH SCHWARZENTRAUB PA-C [facility] 09-16-2024 12:40-0400 Heart rate 85 /min ZACH SCHWARZENTRAUB PA-C [facility] 09-16-2024 12:40-0400 Respiratory rate 18 /min PARIS SCHWARZENTRAUB PA-C [facility] 09-16-2024 12:40-0400 Systolic Blood Pressure Non-Invasive 124 mm[Hg] ZACH SCHWARZENTRAUB PA-C [facility] 08-31-2024 06:43-0500 Body temperature 97.88 [degF] VANESSA CAMPBELL MD [facility] 08-31-2024 06:43-0500 Diastolic Blood Pressure Non-Invasive 62 mm[Hg] VANESSA CAMPBELL MD [facility] 08-31-2024 06:43-0500 Heart rate 76 /min VANESSA CAMPBELL MD [facility] 08-31-2024 06:43-0500 Respiratory rate 16 /min VANESSA CAMPBELL MD [facility] 08-31-2024 06:43-0500 Systolic Blood Pressure Non-Invasive 112 mm[Hg] VANESSA CAMPBELL MD [facility] 08-30-2024 23:47-0500 Body temperature 98.24 [degF] VANESSA CAMPBELL MD [facility] 08-30-2024 23:47-0500 Diastolic Blood Pressure Non-Invasive 62 mm[Hg] VANESSA CAMPBELL MD [facility] 08-30-2024 23:47-0500 Heart rate 77 /min VANESSA CAMPBELL MD [facility] 08-30-2024 23:47-0500 Reason For Taking VItal Signs VANESSA CAMPBELL MD [facility] 08-30-2024 23:47-0500 Respiratory rate 17 /min VANESSA CAMPBELL MD [facility] 08-30-2024 23:47-0500 Systolic Blood Pressure Non-Invasive 104 mm[Hg] VANESSA CAMPBELL MD [address] [place] [address] 08-30-2024 14:43-0500 Blood Pressure Cuff Size VANESSA CAMPBELL MD [facility] 08-30-2024 14:43-0500 Blood Pressure Location VANESSA CAMPBELL MD [facility] 08-30-2024 14:43-0500 Blood Pressure Method VANESSA CAMPBELL MD [facility] 08-30-2024 14:43-0500 Body temperature 97.52 [degF] VANESSA CAMPBELL MD [facility] 08-30-2024 14:43-0500 Diastolic Blood Pressure Non-Invasive 71 mm[Hg] VANESSA CAMPBELL MD [facility] 08-30-2024 14:43-0500 Heart rate 87 /min VANESSA CAMPBELL MD [facility] 08-30-2024 14:43-0500 Reason For Taking VItal Signs VANESSA CAMPBELL MD [facility] 08-30-2024 14:43-0500 Respiratory rate 18 /min VANESSA CAMPBELL MD [facility] 08-30-2024 14:43-0500 Systolic Blood Pressure Non-Invasive 117 mm[Hg] VANESSA CAMPBELL MD [facility] 08-30-2024 07:45-0500 Blood Pressure Cuff Size VANESSA CAMPBELL MD [facility] 08-30-2024 07:45-0500 Blood Pressure Location VANESSA CAMPBELL MD [facility] 08-30-2024 07:45-0500 Blood Pressure Method VANESSA CAMPBELL MD [address] [place] [address] 08-30-2024 07:45-0500 Heart rate 64 /min VANESSA CAMPBELL MD [facility] 08-30-2024 07:45-0500 Reason For Taking VItal Signs VANESSA CAMPBELL MD [address] [place] [address] 08-29-2024 23:08-0500 Heart rate 67 /min VANESSA CAMPBELL MD [address] 08-29-2024 14:28-0500 Blood Pressure Cuff Size VANESSA CAMPBELL MD [facility] 08-29-2024 14:28-0500 Blood Pressure Location VANESSA CAMPBELL MD [facility] 08-29-2024 14:28-0500 Blood Pressure Method VANESSA CAMPBELL MD [facility] 08-29-2024 07:15-0500 Heart rate 59 /min VANESSA CAMPBELL MD [facility] 08-29-2024 05:06-0500 Heart rate 61 /min VANESSA CAMPBELL MD [facility] 08-28-2024 15:30-0500 Body temperature 98.6 [degF] VANESSA CAMPBELL MD [address] [place] [address] 08-28-2024 14:45-0500 Body temperature 98.96 [degF] VANESSA CAMPBELL MD [facility] 08-28-2024 14:40-0500 Respiratory Rate - Anes 7 br/min VANESSA CAMPBELL MD [address] [place] [address] 08-28-2024 14:35-0500 Respiratory Rate - Anes 8 br/min VANESSA CAMPBELL MD [address] [place] [address] 08-28-2024 14:30-0500 Body temperature 99.91 [degF] VANESSA CAMPBELL MD [address] [place] [address] 08-28-2024 14:30-0500 Respiratory Rate - Anes 16 br/min VANESSA CAMPBELL MD [address] [place] [address] 08-28-2024 14:25-0500 Body temperature 100.09 [degF] VANESSA CAMPBELL MD [address] [place] [address] 08-28-2024 14:20-0500 Body temperature 100.38 [degF] VANESSA CAMPBELL MD [address] [place] [address] 08-28-2024 13:37-0500 Mean blood pressure 65 mm[Hg] VANESSA CAMPBELL MD [address] [place] [address] 08-28-2024 12:55-0500 Mean blood pressure 74 mm[Hg] VANESSA CAMPBELL MD [address] [place] [address] 08-19-2024 17:35-0500 Body height 160 cm VANESSA CAMPBELL MD [address] [place] [address] 08-19-2024 17:35-0500 Body weight 99.8 kg VANESSA CAMPBELL MD [address] [place] [address] 08-19-2024 17:35-0500 Body weight 38.98 kg/m2 VANESSA CAMPBELL MD [address] [place] [address] 08-19-2024 10:15-0500 Mean blood pressure 80 mm[Hg] VANESSA CAMPBELL MD [address] [place] [address] 08-19-2024 04:05-0500 Body weight 99.8 kg VANESSA CAMPBELL MD [address] [place] [address] 08-18-2024 14:46-0500 Body mass index (BMI) [Ratio] 39.86 kg/m2 Paulo Avila MD Work Phone: [facility] 08-18-2024 14:46-0500 Body weight 102.06 kg Paulo Avila MD Work Phone: [facility] 08-18-2024 14:46-0500 Diastolic blood pressure 60 mm[Hg] Paulo Avila MD Work Phone: [facility] 08-18-2024 14:46-0500 Heart rate 127 /min Paulo Avila MD Work Phone: [facility] 08-18-2024 14:46-0500 Systolic blood pressure 99 mm[Hg] Paulo Avila MD Work Phone: [facility] 08-18-2024 08:17-0500 Respiratory rate 18 /min DR ROSEANN Dixon [facility] 08-18-2024 08:15-0500 Body height [address] ROSEANN Dixon [facility] 08-18-2024 08:15-0500 Body weight 100.[address] ROSEANN Dixon [facility] 08-18-2024 08:15-0500 Body weight 39.3 kg/m2 DR ROSEANN Dixon [facility] 08-18-2024 08:10-0500 Body temperature 98.42 [degF] DR ROSEANN Dixon [facility] 08-18-2024 08:10-0500 Diastolic Blood Pressure Non-Invasive 60 mm[Hg] DR ROSEANN LUNDBERG MD [facility] 08-18-2024 08:10-0500 Heart rate 106 /min DR ROSEANN Dixon [facility] 08-18-2024 08:10-0500 Systolic Blood Pressure Non-Invasive 103 mm[Hg] DR ROSEANN LUNDBERG MD [facility] 08-18-2024 07:37-0500 Body weight 100.[address] ROSEANN Dixon [facility] 08-06-2024 12:10-0500 Body height [address] ROSEANN Dixon [facility] 08-06-2024 12:10-0500 Body temperature 98.24 [degF] DR ROSEANN Dixon [facility] 08-06-2024 12:10-0500 Diastolic Blood Pressure Non-Invasive 55 mm[Hg] DR ROSEANN LUNDBERG MD [facility] 08-06-2024 12:10-0500 Heart rate 76 /min DR ROSEANN Dixon [facility] 08-06-2024 12:10-0500 Systolic Blood Pressure Non-Invasive 117 mm[Hg] DR ROSEANN LUNDBERG MD [facility] 08-05-2024 13:05-0500 Body mass index (BMI) [Ratio] 40.74 kg/m2 Justice Perea MD Work Phone: [facility] 08-05-2024 13:05-0500 Body temperature 96.4 [degF] Justice Perea MD Work Phone: [facility] 08-05-2024 13:05-0500 Body weight 104.33 kg Justice Perea MD Work Phone: [facility] 08-05-2024 13:05-0500 Diastolic blood pressure 69 mm[Hg] Justice Perea MD Work Phone: [facility] 08-05-2024 13:05-0500 Heart rate 92 /min Justice Perea MD Work Phone: [facility] 08-05-2024 13:05-0500 Respiratory rate 18 /min Justice Perea MD Work Phone: [facility] 08-05-2024 13:05-0500 SaO2% (BldA) [Mass fraction] 98 % Justice Perea MD Work Phone: [facility] 08-05-2024 13:05-0500 Systolic blood pressure 109 mm[Hg] Justice Perea MD Work Phone: [facility] 08-04-2024 14:05-0500 Diastolic Blood Pressure Non-Invasive 62 mm[Hg] DR ROSEANN LUNDBERG MD [facility] 08-04-2024 14:05-0500 Heart rate 88 /min DR ROSEANN Dixon [facility] 08-04-2024 14:05-0500 Reason For Taking VItal Signs DR ROSEANN LUNDBERG MD [facility] 08-04-2024 14:05-0500 Systolic Blood Pressure Non-Invasive 129 mm[Hg] DR ROSEANN LUNDBERG MD [facility] 08-04-2024 10:28-0500 Body height [address] ROSEANN Dixon [facility] 08-04-2024 10:28-0500 Body weight 104.[address] ROSEANN Dixon [facility] 08-04-2024 10:28-0500 Body weight 40.78 kg/m2 DR ROSEANN Dixon [facility] 08-04-2024 10:26-0500 Reason For Taking VItal Signs DR ROSEANN LUNDBERG MD [facility] 08-04-2024 10:21-0500 Body temperature 98.06 [degF] DR ROSEANN Dixon [facility] 08-04-2024 10:21-0500 Diastolic Blood Pressure Non-Invasive 66 mm[Hg] DR ROSEANN LUNDBERG MD [facility] 08-04-2024 10:21-0500 Heart rate 93 /min DR ROSEANN Dixon [facility] 08-04-2024 10:21-0500 Systolic Blood Pressure Non-Invasive 106 mm[Hg] DR ROSEANN LUNDBERG MD [facility] 08-04-2024 09:14-0500 Body weight 104.[address] ROSEANN Dixon [facility] 07-23-2024 16:00-0500 Body temperature 98.06 [degF] ARLENE RODRIGEZ MD [facility] 07-23-2024 16:00-0500 Diastolic Blood Pressure Non-Invasive 70 mm[Hg] ARLENE RODRIGEZ MD [facility] 07-23-2024 16:00-0500 Heart rate 85 /min ARLENE RODRIGEZ MD [facility] 07-23-2024 16:00-0500 Systolic Blood Pressure Non-Invasive 111 mm[Hg] ARLENE RODRIGEZ MD [facility] 07-23-2024 15:42-0500 Heart rate 77 /min ARLENE RODRIGEZ MD [facility] 07-23-2024 15:41-0500 Heart rate 78 /min ARLENE RODRIGEZ MD [facility] 07-23-2024 15:41-0500 Diastolic Blood Pressure Non-Invasive 74 mm[Hg] ARLENE RODRIGEZ MD [facility] 07-23-2024 15:41-0500 Mean blood pressure 88 mm[Hg] ARLENE RODRIGEZ MD [facility] 07-23-2024 15:41-0500 Systolic Blood Pressure Non-Invasive 136 mm[Hg] ARLENE RODRIGEZ MD [facility] 07-23-2024 15:41-0500 Body temperature 98.42 [degF] ARLENE RODRIGEZ MD [facility] 07-23-2024 15:41-0500 Respiratory rate 16 /min ARLENE RODRIGEZ MD [facility] 07-23-2024 15:25-0500 Heart rate 81 /min ARLENE RODRIGEZ MD [address] [place] [address] 07-23-2024 15:25-0500 Diastolic Blood Pressure Non-Invasive 77 mm[Hg] ARLENE RODRIGEZ MD [address] [place] [address] 07-23-2024 15:25-0500 Mean blood pressure 87 mm[Hg] ARLENE RODRIGEZ MD [facility] 07-23-2024 15:25-0500 Systolic Blood Pressure Non-Invasive 123 mm[Hg] ARLENE RODRIGEZ MD [facility] 07-23-2024 15:10-0500 Mean blood pressure 83 mm[Hg] ARLENE RODRIGEZ MD [facility] 07-23-2024 15:10-0500 Body temperature 98.6 [degF] ARLENE RODRIGEZ MD [facility] 07-23-2024 15:10-0500 Respiratory Rate - Anes 0 br/min ARLENE RODRIGEZ MD [facility] 07-23-2024 15:05-0500 Respiratory Rate - Anes 0 br/min ARLENE RODRIGEZ MD [facility] 07-23-2024 15:00-0500 Body temperature 96.8 [degF] ARLENE RODRIGEZ MD [facility] 07-23-2024 15:00-0500 Respiratory Rate - Anes 24 br/min ARLENE RODRIGEZ MD [facility] 07-23-2024 11:30-0500 Body height 160 cm ARLENE RODRIGEZ MD [facility] 07-23-2024 11:30-0500 Body weight 101 kg ARLENE RODRIGEZ MD [facility] 07-23-2024 11:30-0500 Heart rate 98 /min ARLENE RODRIGEZ MD [facility] 2024 08:21-0500 Blood Pressure Cuff Size ARLENE RODRIGEZ MD [facility] 2024 08:21-0500 Blood Pressure Location ARLENE RODRIGEZ MD [facility] 2024 08:21-0500 Blood Pressure Method ARLENE RODRIGEZ MD [facility] 2024 08:21-0500 Body height 162.6 cm ARLENE RODRIGEZ MD [facility] 2024 08:21-0500 Body temperature 97.88 [degF] ARLENE RODRIGEZ MD [facility] 2024 08:21-0500 Body weight 103.6 kg ARLENE RODRIGEZ MD [facility] 2024 08:21-0500 Body weight 39.18 kg/m2 ARLENE RODRIGEZ MD [facility] 2024 08:21-0500 Diastolic Blood Pressure Non-Invasive 80 mm[Hg] ARLENE RODRIGEZ MD [facility] 2024 08:21-0500 Heart rate 98 /min ARLENE RODRIGEZ MD [facility] 2024 08:21-0500 Systolic Blood Pressure Non-Invasive 102 mm[Hg] ARLENE RODRIGEZ MD [facility] 07-16-2024 11:59-0500 Diastolic Blood Pressure Non-Invasive 83 mm[Hg] ARLENE RODRIGEZ MD [facility] 07-16-2024 11:59-0500 Heart rate 72 /min ARLENE RODRIGEZ MD [facility] 07-16-2024 11:59-0500 Respiratory rate 16 /min ARLENE RODRIGEZ MD [facility] 07-16-2024 11:59-0500 Systolic Blood Pressure Non-Invasive 123 mm[Hg] ARLENE RODRIGEZ MD [facility] 07-16-2024 11:33-0500 Blood Pressure Cuff Size ARLENE RODRIGEZ MD [facility] 07-16-2024 11:33-0500 Blood Pressure Location ARLENE RODRIGEZ MD [facility] 07-16-2024 11:33-0500 Blood Pressure Method ARLENE RODRIGEZ MD [facility] 07-16-2024 11:33-0500 Diastolic Blood Pressure Non-Invasive 83 mm[Hg] ARLENE RODRIGEZ MD [facility] 07-16-2024 11:33-0500 Heart rate 63 /min ARLENE RODRIGEZ MD [facility] 07-16-2024 11:33-0500 Respiratory rate 18 /min ARLENE RODRIGEZ MD [facility] 07-16-2024 11:33-0500 Systolic Blood Pressure Non-Invasive 129 mm[Hg] ARLENE RODRIGEZ MD [facility] 07-16-2024 11:03-0500 Blood Pressure Cuff Size ARLENE RODRIGEZ MD [facility] 07-16-2024 11:03-0500 Blood Pressure Location ARLENE RODRIGEZ MD [facility] 07-16-2024 11:03-0500 Blood Pressure Method ARLENE RODRIGEZ MD [facility] 07-16-2024 11:03-0500 Diastolic Blood Pressure Non-Invasive 75 mm[Hg] ARLENE RODRIGEZ MD [facility] 07-16-2024 11:03-0500 Heart rate 66 /min ARLENE RODRIGEZ MD [facility] 07-16-2024 11:03-0500 Respiratory rate 18 /min ARLENE RODRIGEZ MD [facility] 07-16-2024 11:03-0500 Systolic Blood Pressure Non-Invasive 123 mm[Hg] ARLENE RODRIGEZ MD [facility] 07-16-2024 10:47-0500 Heart rate 69 /min ARLENE RODRIGEZ MD [facility] 07-16-2024 10:34-0500 Heart rate 69 /min ARELNE RODRIGEZ MD [facility] 07-16-2024 10:05-0500 Heart rate 64 /min ARLENE RODRIGEZ MD [facility] 07-16-2024 07:10-0500 Blood Pressure Cuff Size ARLENE RODRIGEZ MD [facility] 07-16-2024 07:10-0500 Blood Pressure Location ARLENE RODRIGEZ MD [facility] 07-16-2024 07:10-0500 Blood Pressure Method ARLENE RODRIGEZ MD [facility] 07-16-2024 07:10-0500 Body temperature 97.52 [degF] ARLENE RODRIGEZ MD [facility] 07-15-2024 11:30-0500 Body height 160 cm ARLENE RODRIGEZ MD [facility] 07-15-2024 11:30-0500 Body weight 106.8 kg ARLENE RODRIGEZ MD [facility] 07-15-2024 11:30-0500 Body weight 41.72 kg/m2 ARLENE RODRIGEZ MD [facility] 04-15-2024 13:27-0400 Blood Pressure Location IRMA SHAH DO [facility] 04-15-2024 13:27-0400 Blood Pressure Method IRMA SHAH DO [facility] 04-15-2024 13:27-0400 Body height 160 cm IMRA SHAH DO [facility] 04-15-2024 13:27-0400 Body temperature 98.06 [degF] IRMA SHAH DO [facility] 04-15-2024 13:27-0400 Body weight 109.1 kg IRMA SHAH DO [facility] 04-15-2024 13:27-0400 Body weight 42.62 kg/m2 IRMA SHAH DO [facility] 04-15-2024 13:27-0400 Diastolic Blood Pressure Non-Invasive 58 mm[Hg] IRMA SHAH DO [facility] 04-15-2024 13:27-0400 Heart rate 78 /min IRMA SHAH DO [facility] 04-15-2024 13:27-0400 Respiratory rate 18 /min IRMA SHAH DO [facility] 04-15-2024 13:27-0400 Systolic Blood Pressure Non-Invasive 117 mm[Hg] IRMA SHAH DO [facility] 04-02-2024 09:59-0400 Blood Pressure Cuff Size DR KENAN JOSE MD [address] [place] [address] 04-02-2024 09:59-[address] KENAN JOSE MD [address] [place] [address] 04-02-2024 09:59-[address] KENAN JOSE MD [address] [place] [address] 04-02-2024 09:59-0400 Body height [address] KENAN JOSE MD [address] [place] [address] 04-02-2024 09:59-0400 Body temperature 98.6 [degF] DR KENAN JOSE MD [address] [place] [address] 04-02-2024 09:59-0400 Body weight 111.[address] KENAN JOSE MD [address] [place] [address] 04-02-2024 09:59-0400 Body weight 43.52 kg/m2 DR KENAN JOSE MD [address] [place] [address] 04-02-2024 09:59-0400 Diastolic Blood Pressure Non-Invasive 59 mm[Hg] DR KENAN JOSE MD [address] [place] [address] 04-02-2024 09:59-0400 Heart rate 79 /min DR KENAN JOSE MD [address] [place] [address] 04-02-2024 09:59-0400 Respiratory rate 18 /min DR KENAN JOSE MD [address] [place] [address] 04-02-2024 09:59-0400 Systolic Blood Pressure Non-Invasive 110 mm[Hg] DR KENAN JOSE MD [address] [place] [address] 03-23-2024 13:03-0400 Body height 160 cm POLINA DONOVAN PA-C [address] [place] [address] 03-23-2024 13:03-0400 Body temperature 98.42 [degF] POLINA SALVADOR PA-C [address] [place] [address] 03-23-2024 13:03-0400 Body weight 111.4 kg POLINA SALVADOR PA-C [facility] 03-23-2024 13:03-0400 Body weight 43.52 kg/m2 POLINA SALVADOR PA-C [facility] 03-23-2024 13:03-0400 Diastolic Blood Pressure Non-Invasive 84 mm[Hg] POLINA SALVADOR PA-C [facility] 03-23-2024 13:03-0400 Heart rate 76 /min POLINA SALVADOR PA-C [facility] 03-23-2024 13:03-0400 Respiratory rate 16 /min POLINA SALVADOR PA-C [facility] 03-23-2024 13:03-0400 Systolic Blood Pressure Non-Invasive 140 mm[Hg] POLINA SALVADOR PA-C [facility] 03-20-2024 13:45-0400 Body height 160.02 cm [address] MA [facility]. 03-20-2024 13:45-0400 Body mass index (BMI) [Ratio] 42.87 kg/m2 Geno Casper MA [facility]. 03-20-2024 13:45-0400 Body surface area Derived from formula 2.1 m2 Geno Casper MA [facility].; [facility]. 03-20-2024 13:45-0400 Body weight 109.77 kg Geno Casper MA [facility].; [facility]. 03-20-2024 13:45-0400 Diastolic blood pressure 76 mm[Hg] Geno Casper MA [facility]. Comment on above: Patient Position: Sitting; Cuff Location : Left Arm; Cuff Size: Standard 03-20-2024 13:45-0400 Heart rate 109 /min [facility] Casper [facility] Comment on above: Pattern: Regular 03-20-2024 13:45-0400 Systolic blood pressure 108 mm[Hg] [facility] Cas[facility] Comment on above: Patient Position: Sitting; Cuff Location : Left Arm; Cuff Size: Standard 03-16-2024 11:52-0400 Reason For Taking VItal Signs BONIFACIO BAILEY DO [employer] [address] [place] [address] 03-16-2024 08:26-0400 Reason For Taking VItal Signs BONIFACIO BAILEY DO [employer] [address] 03-16-2024 07:35-0400 Blood Pressure Cuff Size BONIFACIO BAILEY DO [employer] [address] 03-16-2024 07:35-0400 Blood Pressure Location BONIFACIO BAILEY DO [employer] [address] 03-16-2024 07:35-0400 Blood Pressure Method BONIFACIO BAILEY DO [employer] [address] 03-16-2024 07:35-0400 Body temperature 98.06 [degF] BONIFACIO BAILEY DO [employer] [address] 03-16-2024 07:35-0400 Diastolic Blood Pressure Non-Invasive 72 mm[Hg] BONIFACIO BAILEY DO [employer] [address] 03-16-2024 07:35-0400 Heart rate 83 /min BONIFACIO BAILEY DO [employer] [address] 03-16-2024 07:35-0400 Reason For Taking VItal Signs BONIFACIO BAILEY DO [employer] [address] 03-16-2024 07:35-0400 Respiratory rate 18 /min BONIFACIO BAILEY DO [employer] [address] 03-16-2024 07:35-0400 Systolic Blood Pressure Non-Invasive 114 mm[Hg] BONIFACIO BAILEY DO [employer] [address] [place] [address] 03-15-2024 22:21-0400 Body temperature 97.88 [degF] BONIFACIO BAILEY DO [facility] 03-15-2024 22:21-0400 Diastolic Blood Pressure Non-Invasive 59 mm[Hg] BONIFACIO BEBETO CAMPBELL [facility] 03-15-2024 22:21-0400 Heart rate 72 /min BONIFACIO BEBETO CAMPBELL [address] [place] [address] 03-15-2024 22:21-0400 Respiratory rate 18 /min BONIFACIO BEBETO CAMPBELL [address] [place] [address] 03-15-2024 22:21-0400 Systolic Blood Pressure Non-Invasive 97 mm[Hg] BONIFACIO BEBETO CAMPBELL [address] [place] [address] 03-15-2024 15:50-0400 Blood Pressure Cuff Size BONIFACIO BEBETO [address] [place] [address] 03-15-2024 15:50-0400 Blood Pressure Location BONIFACIO BEBETO CAMPBELL [address] [place] [address] 03-15-2024 15:50-0400 Blood Pressure Method BONIFACIO BEBETO CAMPBELL [address] [place] [address] 03-15-2024 15:50-0400 Body temperature 97.88 [degF] BONIFACIO BAILEY DO [address] [place] [address] 03-15-2024 15:50-0400 Diastolic Blood Pressure Non-Invasive 66 mm[Hg] BONIFACIO EBBETO CAMPBELL [address] [place] [address] 03-15-2024 15:50-0400 Heart rate 77 /min BONIFACIO BEBETO CAMPBELL [address] [place] [address] 03-15-2024 15:50-0400 Respiratory rate 18 /min BONIFACIO EBBETO CAMPBELL [address] [place] [address] 03-15-2024 15:50-0400 Systolic Blood Pressure Non-Invasive 97 mm[Hg] BONIFACIO BEBETO CAMPBELL [address] [place] [address] 03-15-2024 06:36-0400 Blood Pressure Cuff Size BONIFACIO BAILEY DO [facility] 03-15-2024 06:36-0400 Blood Pressure Location BONIFACIO BAILEY DO [facility] 03-15-2024 06:36-0400 Blood Pressure Method BONIFACIO BAILEY DO [facility] 03-13-2024 14:46-0400 Heart rate 115 /min BONIFACIO BAILEY DO [facility] 03-13-2024 10:30-0400 Heart rate 84 /min BONIFACIO BAILEY DO [address] [place] [address] 03-13-2024 10:25-0400 Heart rate 78 /min BONIFACIO BAILEY DO [facility] 03-10-2024 17:04-0400 Signs/Symptoms Transfusion Reaction BONIFACIO BAILEY DO [facility] 03-10-2024 16:04-0400 Signs/Symptoms Transfusion Reaction No BONIFACIO ZHANGERMILEY CAMPBELL [facility] 03-10-2024 16:04-0400 Diastolic blood pressure 73 mm[Hg] BONIFACIO BAILEY DO [facility] 03-10-2024 16:04-0400 Systolic blood pressure 119 mm[Hg] BONIFACIO BAILEY DO [facility] 03-10-2024 15:51-0400 Signs/Symptoms Transfusion Reaction BONIFACIO BAILEY DO [facility] 03-10-2024 08:20-0400 Mean blood pressure 83 mm[Hg] BONIFACIO BAILEY DO [facility] 03-09-2024 18:58-0400 Heart rate 88 /min BONIFACIO BAILEY DO [facility] 03-09-2024 14:19-0400 Heart rate 98 /min BONIFACIO BAILEY DO [facility] 03-09-2024 08:06-0400 Heart rate 86 /min BONIFACIO BAILEY DO [facility] 03-09-2024 03:39-0400 Body height 160 cm BONIFACIO BAILEY DO [facility] 03-09-2024 03:39-0400 Body weight 113 kg BONIFACIO BAILEY DO [facility] 03-09-2024 03:39-0400 Body weight 44.14 kg/m2 BONIFACIO BAILEY DO [facility] 01-07-2023 10:41-0400 Body weight 124.29 kg Neal Watts LPN [facility]. 01-07-2023 10:41-0400 Diastolic blood pressure 73 mm[Hg] Neal Watts LPN [facility] [employer] Comment on above: Patient Position: Sitting; Cuff Location : Left Arm; Cuff Size: Standard 01-07-2023 10:41-0400 Heart rate 74 /min Neal Watts LPN [facility] [employer]. Comment on above: Pattern: Regular 01-07-2023 10:41-0400 Systolic blood pressure 108 mm[Hg] Neal Watts RELAY ASSOCIATE [facility] Comment on above: Patient Position: Sitting; Cuff Location : Left Arm; Cuff Size: Standard 10-14-2015 15:46-0400 Body height 160.02 cm [email or web address] Work Phone: [employer] 10-14-2015 15:46-0400 Body mass index (BMI) [Ratio] 45.35 kg/m2 [employer] Work Phone: [employer]. 10-14-2015 15:46-0400 Body surface area Derived from formula 2.15 m2 [employer] Work Phone: [employer]; [employer] 10-14-2015 15:46-0400 Body temperature 99.1 [degF] Luke Connie PA- C Work Phone: [employer]; [employer] Comment on above: Method: Tympanic 10-14-2015 15:46-0400 Body weight 116.12 kg Luke Connie PA- C Work Phone: [employer]; [employer]. 10-14-2015 15:46-0400 Diastolic blood pressure 65 mm[Hg] Luke Connie PA-C Work Phone: [employer]; [employer] Comment on above: Patient Position: Sitting; Cuff Location : Left Arm; Cuff Size: Large 10-14-2015 15:46-0400 Heart rate 81 /min Luke Connie PA- C Work Phone: [employer]; [employer]. Comment on above: Pattern: Regular 10-14-2015 15:46-0400 Inhaled oxygen concentration 21 % Luke Connie PA-C Work Phone: [employer]; [employer] Comment on above: Room air 10-14-2015 15:46-0400 SaO2% (BldA) [Mass fraction] 96 % Luke Connie PA-C Work Phone: [employer]; [employer] 10-14-2015 15:46-0400 Systolic blood pressure 91 mm[Hg] Luke Connie PA-C Work Phone: [employer]; [employer] Comment on above: Patient Position: Sitting; Cuff Location : Left Arm; Cuff Size: Large Encounters Encounter Date Encounter Type Care Provider Facility Start: 05-11-2025 End: 05-11-2025 Patient encounter procedure ARLENE RODRIGEZ MD [facility] [facility] Start: 05-06-2025 End: 05-06-[address] ROSEANN LUNDBERG MD [facility] Start: 05-06-2025 End: 05-06-2025 ambulatory LUKE CONNIE PA-C Facility:A Start: 05-06-[address] ROSEANN LUNDBERG MD F acility:A Start: 05-04-2025 ambulatory LUKE CONNIE PA-C F acility:A Start: 05-04-2025 ambulatory LUKE CONNIE PA-C F acility:A Start: 05-04-2025 End: 05-04-[address] ROSEANN LUNDBERG MD Facility:A Start: 05-04-2025 End: 05-04-[address] ROSEANN LUNDBERG MD [facility] Start: 04-30-2025 End: 04-30-2025 ambulatory BONIFACIO LOMBARDI Facility:[facility] Start: 04-22-2025 End: 04-22-2025 ambulatory LUKE CONNIE PA-C Facility:A Start: 04-22-2025 End: 04-22-2025 SAME DAY STAY ARLENE RODRIGEZ MD [facility] Start: 04-06-2025 ambulatory LUKE CONNIE PA-C F acility:A Start: 04-06-[address] ROSEANN LUNDBERG MD F acility:A Start: 04-06-2025 End: 04-06-2025 ambulatory LUKE CONNIE PA-C Facility:A Start: 04-06-2025 End: 04-06-[address] ROSEANN LUNDBERG MD [facility] Start: 04-01-2025 End: 04-01-[address] ROSEANN LUNDBERG MD Facility:A Start: 04-01-2025 End: 04-01-[address] ROSEANN LUNDBERG MD [facility] Start: 03-31-2025 ambulatory LUKE CONNIE PA-C F acility:A Start: 03-30-2025 End: 03-30-2025 ambulatory LUKE CONNIE PA-C Facility:A Start: 03-30-2025 End: 03-30-2025 Patient encounter procedure ARLENE RODRIGEZ MD [facility] Start: 03-24-2025 End: 03-24-2025 ambulatory LUKE CONNIE PA-C Facility:A Start: 03-24-2025 End: 03-24-[address] ROSEANN LUNDBERG MD [facility] Start: 03-24-2025 ambulatory LUKE CONNIE PA-C F acility:A Start: 03-23-2025 End: 03-23-2025 ambulatory LUKE CONNIE PA-C Facility:A Start: 03-23-2025 End: 03-23-[address] ROSEANN LUNDBERG MD [facility] Start: 03-11-2025 End: 03-11-2025 ambulatory LUKE CONNIE PA-C Facility:A Start: 03-11-2025 End: 03-11-[address] ROSEANN LUNDBERG MD [facility] Start: 03-09-2025 End: 03-09-[address] ROSEANN LUNDBERG MD Facility:A Start: 03-09-2025 End: 03-09-[address] ROSEANN LUNDBERG MD [facility] Start: 02-25-2025 End: 02-25-2025 ambulatory LUKE CONNIE PA-C Facility:A Start: 02-25-2025 End: 02-25-[address] ROSEANN LUNDBERG MD [facility] Start: 02-23-2025 End: 02-23-2025 ambulatory LUKE CONNIE PA-C Facility:A Start: 02-23-2025 End: 02-23-[address] ROSEANN LUNDBERG MD [facility] Start: 02-11-2025 End: 02-11-2025 ambulatory LUKE CONNIE PA-C Facility:A Start: 02-11-2025 End: 02-11-[address] ROSEANN LUNDBERG MD [facility] Start: 02-09-2025 End: 02-09-[address] ROSEANN LUNDBERG MD Facility:A Start: 02-09-2025 End: 02-09-[address] ROSEANN LUNDBERG MD [facility] Start: 02-02-2025 End: 02-02-2025 ambulatory LUKE CONNIE PA-C Facility:A Start: 02-02-2025 End: 02-02-2025 Patient encounter procedure ARLENE RODRIGEZ MD [facility] Start: 01-28-2025 End: 01-28-2025 ambulatory LUKE CONNIE PA-C Facility:A Start: 01-28-2025 End: 01-28-[address] ROSEANN LUNDBERG MD [facility] Start: 01-26-2025 End: 01-26-[address] ROSEANN LUNDBERG MD Facility:A Start: 01-26-2025 End: 01-26-[address] ROSEANN LUNDBERG MD [facility] Start: 01-14-2025 End: 01-14-2025 ambulatory LUKE CONNIE PA-C Facility:A Start: 01-14-2025 End: 01-14-[address] ROSEANN LUNDBERG MD [facility] Start: 01-12-2025 End: 01-12-2025 ambulatory LUKE CONNIE PA-C Facility:A Start: 01-12-2025 End: 01-12-[address] ROSEANN LUNDBERG MD [facility] Start: 01-08-2025 End: 01-08-2025 ambulatory LUKE CONNIE PA-C Facility:A Start: 01-08-2025 End: 01-08-[address] ROSEANN LUNDBERG MD [facility] Start: 01-07-2025 End: 01-07-2025 ambulatory LUKE CONNIE PA-C Facility:A Start: 01-07-2025 End: 01-07-[address] ROSEANN LUNDBERG MD [facility] Start: 01-05-2025 End: 01-05-2025 ambulatory ARLENE RODRIGEZ MD Facility:A Start: 01-05-2025 End: 01-05-2025 Patient encounter procedure ARLENE RODRIGEZ MD [facility] Start: 01-01-2025 End: 01-01-2025 ambulatory LUKE CONNIE PA-C Facility:A Start: 01-01-2025 End: 01-01-[address] ROSEANN LUNDBERG MD [employer] [facility] Start: 12-31-2024 End: 12-31-2024 ambulatory ABDULKADIR ROSALES PA-C Facility:A Start: 12-31-2024 End: 12-31-2024 Patient encounter procedure FRANCES MCKEON FLEXO OPERATOR-SVP RESEARCH AND STRATEGIC ANALYSIS [employer] [facility] Start: 12-29-2024 End: 12-29-2024 ambulatory FRANCES MCKEON FLEXO OPERATOR-SVP RESEARCH AND STRATEGIC ANALYSIS Facility:A Start: 12-29-2024 End: 12-29-2024 Patient encounter procedure FRANCES MCKEON FLEXO OPERATOR-SVP RESEARCH AND STRATEGIC ANALYSIS [employer] [facility] Start: 12-29-2024 End: 12-29-[address] ROSEANN LUNDBERG MD Facility:A Start: 12-17-2024 End: 12-17-2024 ambulatory FRANCES MCKEON FLEXO OPERATOR-SVP RESEARCH AND STRATEGIC ANALYSIS Facility:A Start: 12-17-2024 End: 12-17-2024 Patient encounter procedure FRANCES MCKEON APRN-SVP RESEARCH AND STRATEGIC ANALYSIS [employer] [facility] Start: 12-15-2024 End: 12-15-2024 ambulatory FRANCES MCKEON FLEXO OPERATOR-SVP RESEARCH AND STRATEGIC ANALYSIS Facility:A Start: 12-15-2024 End: 12-15-2024 Patient encounter procedure FRANCES MCKEON FLEXO OPERATOR-SVP RESEARCH AND STRATEGIC ANALYSIS [employer] [facility] Start: 12-03-2024 End: 12-03-[address] ROSEANN LUNDBERG MD Facility:A Start: 12-03-2024 End: 12-03-[address] ROSEANN LUNDBERG MD [employer] [facility] Start: 12-01-2024 End: 12-01-[address] ROSEANN LUNDBERG MD Facility:A Start: 12-01-2024 End: 12-01-[address] ROSEANN LUNDBERG MD [facility] Start: 11-19-2024 End: 11-19-[address] ROSEANN LUNDBERG MD Facility:A Start: 11-17-2024 End: 11-17-[address] ROSEANN LUNDBERG MD Facility:A Start: 11-17-2024 End: 11-17-[address] ROSEANN LUNDBERG MD [facility] Start: 11-10-2024 End: 11-10-2024 ambulatory LUKE CONNIE PA-C Facility:A Start: 11-10-2024 End: 11-10-2024 Patient encounter procedure ARLENE RODRIGEZ MD [facility] Start: 11-05-2024 End: 11-05-2024 ambulatory LUKE CONNIE PA-C Facility:A Start: 11-05-2024 End: 11-05-[address] ROSEANN LUNDBERG MD [facility] Start: 11-03-2024 End: 11-03-2024 ambulatory LUKE CONNIE PA-C Facility:A Start: 11-03-2024 End: 11-03-[address] ROSEANN LUNDBERG MD [facility] Start: 10-28-2024 End: 10-28-2024 ambulatory LUKE CONNIE PA-C Facility:A Start: 10-22-2024 End: 10-22-2024 ambulatory LUKE CONNIE PA-C Facility:A Start: 10-22-2024 End: 10-22-[address] ROSEANN LUNDBERG MD [facility] Start: 10-20-2024 End: 10-20-2024 ambulatory LUKE CONNIE PA-C Facility:A Start: 10-20-2024 End: 10-20-[address] ROSEANN LUNDBERG MD [facility] Start: 10-13-2024 End: 10-13-2024 ambulatory LUKE CONNIE PA-C Facility:A Start: 10-13-2024 End: 10-13-2024 Patient encounter procedure ARLENE RODRIGEZ MD [facility] Start: 10-08-2024 End: 10-08-2024 ambulatory LUKE CONNIE PA-C Facility:A Start: 10-08-2024 End: 10-08-[address] ROSEANN LUNDBERG MD [facility] Start: 10-06-2024 End: 10-06-2024 ambulatory LUKE CONNIE PA-C Facility:A Start: 10-06-2024 End: 10-06-[address] ROSEANN LUNDBERG MD [facility] Start: 10-02-2024 ambulatory LUKE CONNIE PA-C F acility:A Start: 10-01-2024 End: 10-01-2024 ambulatory LUKE CONNIE PA-C Facility:A Start: 10-01-2024 End: 10-01-[address] ROSEANN LUNDBERG MD [facility] Start: 09-30-2024 End: 09-30-2024 ambulatory LUKE CONNIE PA-C Facility:A Start: 09-30-2024 End: 09-30-2024 Patient encounter procedure CASIE WEINER PA-C [facility] Start: 09-24-2024 End: 09-24-2024 ambulatory LUKE CONNIE PA-C Facility:A Start: 09-24-2024 End: 09-24-[address] ROSEANN LUNDBERG MD [facility] Start: 09-22-2024 ambulatory LUKE CONNIE PA-C F acility:A Start: 09-22-2024 End: 09-22-2024 ambulatory LUKE CONNIE PA-C Facility:A Start: 09-22-2024 End: 09-22-[address] ROSEANN LUNDBERG MD [facility] Start: 09-16-2024 End: 09-16-2024 ambulatory LUKE CONNIE PA-C Facility:A Start: 09-16-2024 End: 09-16-2024 Patient encounter procedure ZACH REINOSO PA-C [facility] Start: 09-15-2024 End: 09-15-2024 ambulatory LUKE CONNIE PA-C Facility:A Start: 09-15-2024 End: 09-15-2024 Patient encounter procedure ARLENE RODRIGEZ MD [facility] Start: 09-03-2024 End: 09-03-2024 ambulatory LUKE CONNIE PA-C Facility:A Start: 09-02-2024 End: 09-02-2024 Telephone follow-up Luke Connie PA-C Work Phone: [facility] Start: 09-01-2024 End: 09-30-2024 ambulatory LUKE CONNIE PA-C Facility:[facility] Start: 08-19-2024 End: 08-31-2024 Evaluation and management of inpatient VANESSA CAMPBELL MD [facility] Start: 08-18-2024 End: 08-18-2024 Office outpatient new 60 minutes Paulo Avila MD Work Phone: [facility] Comment on above: Malignant neoplasm o f sigmoid colon (Multi) Start: 08-18-2024 End: 08-18-2024 [facility] Start: 08-18-2024 End: 08-18-2024 ambulatory LUKE CONNIE PA-C Facility:A Start: 08-18-2024 End: 08-18-[address] ROSEANN LUNDBERG MD [facility] Start: 08-13-2024 End: 08-13-2024 ambulatory ABDULKADIR ROSALES [facility] Start: 08-06-2024 End: 08-07-2024 ambulatory LUKE CONNIE PA-C Facility:A Start: 08-06-2024 End: 08-07-[address] ROSEANN LUNDBERG MD [facility] Start: 08-05-2024 End: 08-05-2024 Office outpatient new 45 minutes Justice Perea MD Work Phone: [facility] Comment on above: 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) (Primary Dx) Start: 08-05-2024 End: 08-05-2024 ambulatory JUSTICE PEREA [facility] Start: 08-04-2024 ambulatory LUKE CONNIE PA-C F acility:A Start: 08-04-2024 End: 08-04-2024 ambulatory LUKE CONNIE PA-C Facility:A Start: 08-04-2024 End: 08-04-[address] ROSEANN LUNDBERG MD [facility] Start: 08-01-2024 End: 08-01-2024 Subsequent hospital visit by physician [facility] Comment on above: Colon cancer metasta sized to liver (Multi) Start: 08-01-2024 End: 08-01-2024 ambulatory [facility] Start: 07-23-2024 End: 07-23-2024 ambulatory LUKE CONNIE PA-C Facility:A Start: 07-23-2024 End: 07-23-2024 SAME DAY STAY ARLENE RODRIGEZ MD [employer] [facility] Start: 2024 End: [address] ROSEANN LUNDBERG MD [employer] [facility] [employer] Start: 2024 End: 2024 Admission to establishment ARLENE RODRIGEZ MD [employer] [facility] [employer] Start: 2024 End: 2024 ambulatory LUKE CONNIE PA-C Facility:A Start: 07-16-2024 End: 07-17-2024 ambulatory LUKE CONNIE PA-C Facility:A Start: 07-16-2024 End: 07-17-2024 Patient encounter procedure ARLENE RODRIGEZ MD [facility] Start: 07-10-2024 ambulatory LUKE CONNIE PA-C F acility:A Start: 07-10-2024 End: 07-10-2024 ambulatory LUKE CONNIE PA-C Facility:A Start: 07-06-2024 End: 07-06-2024 Orders Luke Connie PA-C Work Phone: [facility] Start: 06-19-2024 End: 06-19-2024 ambulatory LUKE CONNIE PA-C Facility:A Start: 06-19-2024 End: 06-19-2024 ambulatory LUKE CONNIE PA-C Facility:A Start: 06-19-2024 End: 06-19-2024 Patient encounter procedure ARLENE RODRIGEZ MD [facility] Start: 06-10-2024 End: 06-10-2024 ambulatory NOELFAUSTO EASTMAN [facility] Start: 06-09-2024 End: 06-09-2024 Historical Summary Luke Connie PA-C Work Phone: [facility] Start: 06-08-2024 ambulatory LUKE CONNIE PA-C F acility:A Start: 06-08-2024 End: 06-12-2024 ambulatory LUKE CONNIE PA-C Facility:A Start: 05-05-2024 End: 05-05-2024 Patient encounter procedure ARLENE RODRIGEZ MD [facility] Start: 04-27-2024 End: 04-27-2024 ambulatory ARLENE RODRIGEZ [facility] Start: 04-15-2024 End: 04-15-2024 Patient encounter procedure IRMA SHAH DO [facility] Start: 04-13-2024 End: 04-13-2024 Patient encounter procedure ROSA LOVE FLEXO OPERATOR-SVP RESEARCH AND STRATEGIC ANALYSIS [facility] Start: 04-09-2024 End: 04-09-2024 ambulatory ROSA EMNG [facility] Start: 04-06-2024 Review Abdulkadir serra PA-C Work Phone[facility] [employer] [facility] Start: 04-02-2024 End: 04-02-[address] KENAN JOSE MD [facility] Start: 03-27-2024 End: 03-27-2024 Patient encounter procedure ARLENE RODRIGEZ MD [facility] Start: 03-23-2024 End: 03-23-2024 Patient encounter procedure POLINA DONOVAN PA-C [facility] Start: 03-20-2024 End: 03-20-2024 Office outpatient visit 25 minutes Abdulkadir Rosales PA-C Work Phone: [employer] Start: 03-18-2024 End: 03-18-2024 Telephone follow-up Abdulkadir Rosales PA-C Work Phone: [employer] Start: 03-09-2024 End: 03-16-2024 Evaluation and management of inpatient BONIFACIO BAILEY DO [facility] Start: 03-08-2024 End: 03-09-2024 Emergency department patient visit CHRIS GROVE [facility] Start: 02-27-2024 End: 02-27-2024 ambulatory [facility] Start: 02-19-2024 End: 02-19-2024 ambulatory [facility] Start: 02-06-2024 End: 02-06-2024 ambulatory [facility] Start: 02-06-2024 End: 02-06-2024 Encounter for gynecological examination (general) (routine) without abnormal findings KAREN BIT [facility]ER [facility] Start: 01-07-2023 End: 01-07-2023 Office outpatient visit 15 minutes Luke Connie PA-C Work Phone[facility] Start: 10-14-2015 End: 10-17-2015 Office outpatient visit 15 minutes Luke Connie PA-C Work Phone: [employer] [facility] Start: 12-17-2012 End: 12-17-2012 Medication Luke Connie PA-C Work Phone[facility] Procedures Date Procedure Procedure Detail Performing Clinician Start: 04-22-2025 Port (substance) ANA RODRIGEZ MD Comment on above: Removal of left ches t port, insertion of Right chest port Start: 08-28-2024 Colostomy bag (physi jc object) DR ROSEANN LUNDBERG MD Start: 08-28-2024 Exploratory laparotomy ARLENE RODRIGEZ MD Comment on above: COLOSTOMY Start: 08-26-2024 Drain, device (physi jc object) DR ROSEANN LUNDBERG MD Start: 08-01-[address] ROSEANN LUNDBERG MD Comment on above: of liver Start: 07-23-2024 Port (substance) DR FIDELIA LUNDBERG MD Start: 06-08-2024 End: 06-08-2024 Screening colonoscopy Abdulkadir Rosales P A-C Work Phone: Comment on above: Polyp removed, repea t based on pathology. Start: 06-08-2024 Colonoscope, device (physical object) ARLENE RODRIGEZ MD Start: 03-08-2024 Urinalysis ROSA RYAN Comment on above: Result Comment: URIN ALYSIS Performed By: #### [id number] #### [facility],[address] [place] [address] Start: 10-14-2015 End: 10-14-2015 No Known Past Surgical History Abdulkadir Rosales PA-C Work Phone: Biopsy of liver ARLENE LUIS MD Colonoscopy ARLENE Hyde MD Extraction of wisdom tooth ARLENE RODRIGEZ MD H/O: colostomy S/P colostomy FRANCES FISHLE Y FLEXO OPERATOR-SVP RESEARCH AND STRATEGIC ANALYSIS None (qualifier value) DENTON RODRIGEZ MD Plan of Treatment Date Care Activity Detail Author Start: 2030 Zoster Vaccines (1 o f 2) Zoster Vaccines (1 of 2) [facility] Start: 08-18-2024 End: 08-18-2024 Patient encounter procedure 08/18/2024 3:00 PM EST Office Visit [facility] [address] [facility] [address] [place] [address] [place] [id number] [facility] [place] [address] [facility] Start: 08-05-2024 End: 08-05-2024 Patient encounter procedure 08/05/2024 1:20 PM EST Office Visit [facility] [address] [place] [address] [place] [id number] [address] [place] [place] [address] [facility] Start: 08-03-2024 Varicella vaccination Varicell a Vaccines (1 of 2 - 13+ 2-dose series) [facility] Start: 03-20-2024 Patient encounter procedure Medical; Hospital F/U - hosp f/u [facility] [facility] Start: 20-Mar-2024 13:50-04:00 ZANDER Rosales Appointment Request [facility] Start: 03-01-2024 COVID-19 Vaccine ( season) COVID-19 Vaccine ( season) [facility] Start: 03-01-2024 Influenza vaccination Influenza Vacc ine (#1) [facility] Start: 2020 Screening for malignant neoplasm of breast Mammogram [facility] Start: 2002 DTaP/Tdap/Td Vaccine s (1 - Tdap) DTaP/Tdap/Td Vaccines (1 - Tdap) [facility] Start: 2001 Screening for malignant neoplasm of cervix [facility] Start: 1999 Hepatitis A Vaccines (1 of 2 - Risk 2-dose series) Hepatitis A Vaccines (1 of 2 - Risk 2-dose series) [facility] Start: 1999 Hepatitis B Vaccines (1 of 3 - 19+ 3-dose series) Hepatitis B Vaccines (1 of 3 - 19+ 3-dose series) [facility] Start: 1998 Diabetes mellitus screening Diabetes Screening [facility] Start: 1998 Hepatitis C [facility] Start: 1980 HIV screening HIV Screening [facility] Start: 1980 Lipid panel Lipid Panel [facility] Start: 1980 Yearly Adult Physical Yearly Adult P hysical [facility] End: 08-01-2024 MR Liver W contrast IV [facility] Service Area Work Phone: Comment on above: Once for 1 Occurrenc es starting 08/01/2024 until 08/01/2024 Immunizations Immunization Date Immunization Notes Care Provider Fiona mcgill 07-06-2024 measles, mumps and rubella virus vaccine Abdulkadir Rosales PA-C [facility] Comment on above: Site: Left ArmVIS Gi mon[facility]: * MMR Vaccine (Measles, Mumps, and Rubella) (02/03/21) 07-06-2024 measles/mumps/rubell a virus vaccine ARLENE RODRIGEZ MD [facility] Payers Date Payer Category Payer Private Health Insurance [id number] 2024 Managed Care (Private) [facility] [id number] 2024 Unknown 2024 Unknown [id number] 1980 Unknown [id number] 2.16.840.1.891641.3.579. 2.627 1980 Unknown [id number] 2.16.840.1.096070.3.579. 2.651 1980 Unknown [id number] 2.16.840.1.222055.3.579. 2.651 1980 Unknown [id number] 2.16.840.1.025262.3.579. 2.651 1980 Unknown [id number] 2.16.840.1.165099.3.579. 2.651 1980 Unknown [id number] 2.16.840.1.324082.3.579. 2.651 1980 Unknown [id number] 2.16.840.1.239482.3.579. 2.651 1980 Unknown [id number] 2.16.840.1.981947.3.579. 2.651 1980 Unknown [id number] 2.16.840.1.696122.3.579. 2.651 1980 Unknown [id number] 2.16.840.1.149056.3.579. 2.1245 1980 Unknown [id number] 2.16.840.1.901137.3.579. 2.124 1980 Unknown [id number] 2.16.840.1.393936.3.579. 2.124 1980 Unknown [id number] 2.16.840.1.216086.3.579. 2.62 1980 Unknown [id number] 2.16.840.1.365773.3.579. 2. 1980 Unknown [id number] 2.16.840.1.038269.3.579. 2. 1980 Unknown [id number] 2.16840.1.658705.3.579. 2. 1980 Unknown [id number] 2.16.840.1.880129.3.579. 2. 1980 Unknown [id number] 2.16840.1.151646.3.579. 2. 1980 Unknown [id number] 2.16.840.1.622416.3.579. 2. 1980 Unknown [id number] 2.16840.1.772682.3.579. 2. 1980 Unknown [id number] 2.16.840.1.188488.3.579. 2. 1980 Unknown [id number] 2.16.840.1.764089.3.579. 2. 1980 Unknown [id number] 2.16.840.1.137094.3.579. 2. 1980 Unknown [id number] 2.16.840.1.487250.3.579. 2. 1980 Unknown [id number] 2.16.840.1.359387.3.579. 2. 1980 Unknown [id number] 2.16.840.1.550804.3.579. 2. 1980 Unknown [id number] 2.16.840.1.328567.3.579. 2. 1980 Unknown [id number] 2.16.840.1.984445.3.579. 2. 1980 Unknown [id number] 2.16.840.1.109682.3.579. 2. 1980 Unknown [id number] 2.16.840.1.641966.3.579. 2. 1980 Unknown [id number] 2.16.840.1.769754.3.579. 2. 1980 Unknown [id number] 2.16.840.1.735905.3.579. 2. 1980 Unknown [id number] 2.16.840.1.605301.3.579. 2. 1980 Unknown [id number] 2.16.840.1.719795.3.579. 2. 1980 Unknown [id number] 2.16.840.1.576002.3.579. 2. 1980 Unknown [id number] 2.16.840.1.522317.3.579. 2. 1980 Unknown [id number] 2.16.840.1.970614.3.579. 2. 1980 Unknown [id number] 2.16.840.1.568262.3.579. 2. 1980 Unknown [id number] 2.16.840.1.197236.3.579. 2. 1980 Unknown [id number] 2.16.840.1.984963.3.579. 2. 1980 Unknown [id number] 2.16.840.1.311850.3.579. 2. 1980 Unknown [id number] 2.16.840.1.042037.3.579. 2. 1980 Unknown [id number] 2.16.840.1.117501.3.579. 2. 1980 Unknown [id number] 2.16.840.1.396798.3.579. 2. 1980 Unknown [id number] 2.16.840.1.610501.3.579. 2. 1980 Unknown [id number] 2.16.840.1.833807.3.579. 2 1980 Unknown [id number] 2.16.840.1.795995.3.579. 2. 1980 Unknown [id number] 2.16.840.1.378336.3.579. 2. 1980 Unknown [id number] 2.16.840.1.383151.3.579. 2 1980 Unknown [id number] 2.16.840.1.515756.3.579. 2. 1980 Unknown [id number] 2.16.840.1.681831.3.579. 2. 1980 Unknown [id number] 2.16.840.1.656562.3.579. 2. 1980 Unknown [id number] 2.16.840.1.686710.3.579. 2. 1980 Unknown [id number] 2.16.840.1.285739.3.579. 2 1980 Unknown [id number] 2.16.840.1.343484.3.579. 2. 1980 Unknown [id number] 2.16.840.1.124810.3.579. 2. 1980 Unknown [id number] 2.16.840.1.257414.3.579. 2. 1980 Unknown [id number] 2.16.840.1.767926.3.579. 2. 1980 Unknown [id number] 2.16.840.1.905919.3.579. 2. 1980 Unknown [id number] 2.16.840.1.717644.3.579. 2. 1980 Unknown [id number] 2.16.840.1.745038.3.579. 2. 1980 Unknown [id number] 2.16840.1.457107.3.579. 2. 1980 Unknown [id number] 2.840.1.385967.3.579. 2. 1980 Unknown [id number] 2.16840.1.876371.3.579. 2. 1980 Unknown [id number] 2.16840.1.911442.3.579. 2. 1980 Unknown [id number] 2.840.1.387284.3.579. 2. 1980 Unknown [id number] 2.840.1.658254.3.579. 2. 1980 Unknown [id number] 2.16.840.1.604672.3.579. 2. 1980 Unknown [id number] 2.16840.1.202144.3.579. 2. 1980 Unknown [id number] 2.16840.1.376745.3.579. 2. 1980 Unknown [id number] 2.16840.1.685687.3.579. 2. 1980 Unknown [id number] 2.16.840.1.237807.3.579. 2. 1980 Unknown [id number] 2.16.840.1.747871.3.579. 2. 1980 Unknown [id number] 2.16.840.1.627664.3.579. 2. 1980 Unknown [id number] 2.16.840.1.798706.3.579. 2. 1980 Unknown [id number] 2.16.840.1.751678.3.579. 2. 1980 Unknown [id number] 2.16.840.1.158677.3.579. 2. 1980 Unknown [id number] 2.16.840.1.759836.3.579. 2. 1980 Unknown [id number] 2.16.840.1.173170.3.579. 2. 1980 Unknown [id number] 2.16.840.1.874191.3.579. 2. 1980 Unknown [id number] 2.16.840.1.014131.3.579. 2. 1980 Unknown [id number] 2.16.840.1.119004.3.579. 2. 1980 Unknown [id number] 2.16.840.1.604687.3.579. 2. 1980 Unknown [id number]. 2. 1980 Unknown [id number] 2.16.840.1.893805.3.579. 2. 1980 Unknown [id number] 2.16.840.1.811428.3.579. 2. 1980 Unknown [id number] 2.16.840.1.418257.3.579. 2.627 1980 Unknown [id number] 2.16.840.1.166416.3.579. 2.627 1980 Unknown [id number] 2.16.840.1.697217.3.579. 2.7 1980 Unknown [id number] 2.16.840.1.878168.3.579. 2.7 1980 Unknown [id number] 2.16.840.1.216611.3.579. 2.7 1980 Unknown [id number] 2.16.840.1.311779.3.579. 2. 1980 Unknown [id number] 2.16.840.1.579878.3.579. 2.7 1980 Unknown [id number] 2.16.840.1.117639.3.579. 2. 1980 Unknown [id number] 2.16.840.1.336278.3.579. 2.7 1980 Unknown [id number] [id number]. 2.627 Social History Date Type Detail Facility Tobacco Use: Tobacco Use: ; N ever smoker. [facility]. Female [facility] Start: 03-25-2024 End: 08-05-2024 Never smoked tobacco [facility] Tobacco Nicotine Use: denies. [facility] Tobacco smoking status [facility] Start: 02-07-2024 Sex Female (finding) [facility] Tobacco smoking status [facility] Tobacco smoking consumption unknown [facility] Work Phone: Start: 1980 Sex assigned at Not on file [facility] Work Phone: Start: 08-05-2024 Gender identity Not on file [facility] Work Phone: Start: 07-22-2024 End: 08-18-2024 Exposure to SARS-CoV-2 (event) Not sure [facility] Start: 08-05-2024 Tobacco use and exposure Smokeless tobacco non-user [facility] Work Phone: Start: 08-05-2024 Alcoholic beverage intake Lifetime non-drinker (finding) [facility] Work Phone: Start: 08-05-2024 History of Social function [facility] Work Phone: Start: 04-22-2025 End: 05-06-2025 No, per patient [facility] NEGATED: Highlighted rowStart: NINF History of tobacco use Passive smoker [facility] Work Phone: Medical Equipment Procedure Code Equipment Code Equipment Origin al Text Equipment Identifier Dates Venous Access Po rt Insertion with Image Unknown 07/23/24 Unknown Unknown FDA Start: 07-23-2024 Venous Access Po rt Insertion with Image Unknown 07/23/24 Unknown Unknown FDA Start: 07-23-2024 Venous Access Po rt Insertion with Image Unknown 07/23/24 Unknown Unknown FDA Start: 07-23-2024 Venous Access Po rt Insertion with Image Unknown 07/23/24 Unknown Unknown FDA Start: 07-23-2024 Venous Access Po rt Insertion with Image Unknown 07/23/24 Unknown Unknown FDA Start: 07-23-2024 Venous Access Po rt Insertion with Image Unknown 07/23/24 Unknown Unknown FDA Start: 07-23-2024 Venous Access Po rt Insertion with Image Unknown 07/23/24 Unknown Unknown FDA Start: 07-23-2024 Venous Access Po rt Insertion with Image Unknown 07/23/24 Unknown Unknown FDA Start: 07-23-2024 Venous Access Po rt Insertion with Image Unknown 07/23/24 Unknown Unknown FDA Start: 07-23-2024 Venous Access Po rt Insertion with Image Unknown 07/23/24 Unknown Unknown FDA Start: 07-23-2024 Venous Access Po rt Insertion with Image Unknown 07/23/24 Unknown Unknown FDA Start: 07-23-2024 Venous Access Po rt Insertion with Image Unknown 07/23/24 Unknown Unknown FDA Start: 07-23-2024 Venous Access Po rt Insertion with Image Unknown 07/23/24 Unknown Unknown FDA Start: 07-23-2024 Venous Access Po rt Insertion with Image Unknown 07/23/24 Unknown Unknown FDA Start: 07-23-2024 Venous Access Po rt Insertion with Image Unknown 07/23/24 Unknown Unknown FDA Start: 07-23-2024 Venous Access Po rt Insertion with Image Unknown 07/23/24 Unknown Unknown FDA Start: 07-23-2024 Venous Access Po rt Insertion with Image Unknown 07/23/24 Unknown Unknown FDA Start: 07-23-2024 Venous Access Po rt Insertion with Image Unknown 07/23/24 Unknown Unknown FDA Start: 07-23-2024 Venous Access Po rt Insertion with Image Unknown 07/23/24 Unknown Unknown FDA Start: 07-23-2024 Venous Access Po rt Insertion with Image Unknown 07/23/24 Unknown Unknown FDA Start: 07-23-2024 Venous Access Po rt Insertion with Image Unknown 07/23/24 Unknown Unknown FDA Start: 07-23-2024 Venous Access Po rt Insertion with Image Unknown 07/23/24 Unknown Unknown FDA Start: 07-23-2024 Venous Access Po rt Insertion with Image Unknown 07/23/24 Unknown Unknown FDA Start: 07-23-2024 Venous Access Po rt Insertion with Image Unknown 07/23/24 Unknown Unknown FDA Start: 07-23-2024 Venous Access Po rt Insertion with Image Unknown 07/23/24 Unknown Unknown FDA Start: 07-23-2024 Venous Access Po rt Insertion with Image Unknown 07/23/24 Unknown Unknown FDA Start: 07-23-2024 Venous Access Po rt Insertion with Image Unknown 07/23/24 Unknown Unknown FDA Start: 07-23-2024 Venous Access Po rt Insertion with Image Unknown 07/23/24 Unknown Unknown FDA Start: 07-23-2024 Venous Access Po rt Insertion with Image Unknown 07/23/24 Unknown Unknown FDA Start: 07-23-2024 Venous Access Po rt Insertion with Image Unknown 07/23/24 Unknown Unknown FDA Start: 07-23-2024 Venous Access Po rt Insertion with Image Unknown 07/23/24 Unknown Unknown FDA Start: 07-23-2024 Venous Access Po rt Insertion with Image Unknown 07/23/24 Unknown Unknown FDA Start: 07-23-2024 Venous Access Po rt Insertion with Image Unknown 07/23/24 Unknown Unknown FDA Start: 07-23-2024 Venous Access Po rt Insertion with Image Unknown 07/23/24 Unknown Unknown FDA Start: 07-23-2024 Venous Access Po rt Insertion with Image Unknown 07/23/24 Unknown Unknown FDA Start: 07-23-2024 Venous Access Po rt Insertion with Image Unknown 07/23/24 Unknown Unknown FDA Start: 07-23-2024 Venous Access Po rt Insertion with Image Unknown 07/23/24 Unknown Unknown FDA Start: 07-23-2024 Venous Access Po rt Insertion with Image Unknown 07/23/24 Unknown Unknown FDA Start: 07-23-2024 Venous Access Po rt Insertion with Image Unknown 07/23/24 Unknown Unknown FDA Start: 07-23-2024 Venous Access Po rt Insertion with Image Unknown 07/23/24 Unknown Unknown FDA Start: 07-23-2024 Venous Access Po rt Insertion with Image Unknown 07/23/24 Unknown Unknown FDA Start: 07-23-2024 Venous Access Po rt Insertion with Image Unknown 07/23/24 Unknown Unknown FDA Start: 07-23-2024 Venous Access Po rt Insertion with Image Unknown 07/23/24 Unknown Unknown FDA Start: 07-23-2024 Venous Access Po rt Insertion with Image Unknown 07/23/24 Unknown Unknown FDA Start: 07-23-2024 Venous Access Po rt Insertion with Image Unknown 07/23/24 Unknown Unknown FDA Start: 07-23-2024 Venous Access Po rt Insertion with Image Unknown 07/23/24 Unknown Unknown FDA Start: 07-23-2024 Venous Access Po rt Insertion with Image Unknown 07/23/24 Unknown Unknown FDA Start: 07-23-2024 Venous Access Po rt Insertion with Image Unknown 07/23/24 Unknown Unknown FDA Start: 07-23-2024 Venous Access Po rt Insertion with Image Unknown 07/23/24 Unknown Unknown FDA Start: 07-23-2024 Venous Access Po rt Insertion with Image Unknown 07/23/24 Unknown Unknown FDA Start: 07-23-2024 Venous Access Po rt Insertion with Image Unknown 07/23/24 Unknown Unknown FDA Start: 07-23-2024 Venous Access Po rt Insertion with Image Unknown 07/23/24 Unknown Unknown FDA Start: 07-23-2024 Venous Access Po rt Insertion with Image Unknown 07/23/24 Unknown Unknown FDA Start: 07-23-2024 Venous Access Po rt Insertion with Image Unknown 07/23/24 Unknown Unknown FDA Start: 07-23-2024 Venous Access Po rt Insertion with Image Unknown 07/23/24 Unknown Unknown FDA Start: 07-23-2024 Venous Access Po rt Insertion with Image Unknown 07/23/24 Unknown Unknown FDA Start: 07-23-2024 Venous Access Po rt Insertion with Image Unknown 07/23/24 Unknown Unknown FDA Start: 07-23-2024 Venous Access Po rt Insertion with Image Unknown 07/23/24 Unknown Unknown FDA Start: 07-23-2024 Venous Access Po rt Insertion with Image Unknown 07/23/24 Unknown Unknown FDA Start: 07-23-2024 Venous Access Po rt Insertion with Image Unknown 07/23/24 Unknown Unknown FDA Start: 07-23-2024 Venous Access Po rt Insertion with Image Unknown 07/23/24 Unknown Unknown FDA Start: 07-23-2024 Venous Access Po rt Insertion with Image Unknown 07/23/24 Unknown Unknown FDA Start: 07-23-2024 Venous Access Po rt Insertion with Image Unknown 07/23/24 Unknown Unknown FDA Start: 07-23-2024 Venous Access Po rt Insertion with Image Unknown 07/23/24 Unknown Unknown FDA Start: 07-23-2024 Venous Access Po rt Insertion with Image Unknown 07/23/24 Unknown Unknown FDA Start: 07-23-2024 Venous Access Po rt Insertion with Image Unknown 07/23/24 Unknown Unknown FDA Start: 07-23-2024 Venous Access Po rt Insertion with Image Unknown 07/23/24 Unknown Unknown FDA Start: 07-23-2024 Venous Access Po rt Insertion with Image Unknown 07/23/24 Unknown Unknown FDA Start: 07-23-2024 Venous Access Po rt Insertion with Image Unknown 07/23/24 Unknown Unknown FDA Start: 07-23-2024 Venous Access Po rt Insertion with Image Unknown 07/23/24 Unknown Unknown FDA Start: 07-23-2024 Venous Access Po rt Insertion with Image Unknown 07/23/24 Unknown Unknown FDA Start: 07-23-2024 Venous Access Po rt Insertion with Image Unknown 07/23/24 Unknown Unknown FDA Start: 07-23-2024 Venous Access Po rt Insertion with Image Unknown 07/23/24 Unknown Unknown FDA Start: 07-23-2024 Venous Access Po rt Insertion with Image Unknown 07/23/24 Unknown Unknown FDA Start: 07-23-2024 Venous Access Po rt Insertion with Image Unknown 07/23/24 Unknown Unknown FDA Start: 07-23-2024 Venous Access Po rt Insertion with Image Unknown 07/23/24 Unknown Unknown FDA Start: 07-23-2024 Venous Access Po rt Insertion with Image Unknown 07/23/24 Unknown Unknown FDA Start: 07-23-2024 Venous Access Po rt Insertion with Image Unknown 07/23/24 Unknown Unknown FDA Start: 07-23-2024 Venous Access Po rt Insertion with Image Unknown 07/23/24 Unknown Unknown FDA Start: 07-23-2024 Venous Access Po rt Insertion with Image Unknown 07/23/24 Unknown Unknown FDA Start: 07-23-2024 Venous Access Po rt Insertion with Image Unknown 07/23/24 Unknown Unknown FDA Start: 07-23-2024 Venous Access Po rt Insertion with Image Unknown 07/23/24 Unknown Unknown FDA Start: 07-23-2024 Venous Access Po rt Insertion with Image Unknown 07/23/24 Unknown Unknown FDA Start: 07-23-2024 Venous Access Po rt Insertion with Image Unknown 07/23/24 Unknown Unknown FDA Start: 07-23-2024 Venous Access Po rt Insertion with Image Unknown 07/23/24 Unknown Unknown FDA Start: 07-23-2024 Venous Access Po rt Insertion with Image Unknown 07/23/24 Unknown Unknown FDA Start: 07-23-2024 Venous Access Po rt Insertion with Image Unknown 07/23/24 Unknown Unknown FDA Start: 07-23-2024 Venous Access Po rt Insertion with Image Unknown 07/23/24 Unknown Unknown FDA Start: 07-23-2024 Venous Access Po rt Insertion with Image Unknown 07/23/24 Unknown Unknown FDA Start: 07-23-2024 Venous Access Po rt Insertion with Image Unknown 07/23/24 Unknown Unknown FDA Start: 07-23-2024 Venous Access Po rt Insertion with Image Unknown 07/23/24 Unknown Unknown FDA Start: 07-23-2024 Venous Access Po rt Insertion with Image Unknown 07/23/24 Unknown Unknown FDA Start: 07-23-2024 Insertion [facility] Venous Access Device Unknown 07/23/24 Unknown Unknown FDA Start: 07-23-2024 Insertion [facility] Venous Access Device Unknown 07/23/24 Unknown Unknown FDA Start: 07-23-2024 Insertion [facility] Venous Access Device Unknown 07/23/24 Unknown Unknown FDA Start: 07-23-2024 Insertion [facility] Venous Access Device Unknown 07/23/24 Unknown Unknown FDA Start: 07-23-2024 Insertion [facility] Venous Access Device Unknown 04/22/25 Unknown Unknown FDA Start: 04-22-2025 Insertion [facility] Venous Access Device Unknown 07/23/24 Unknown Unknown FDA Start: 07-23-2024 Insertion [facility] Venous Access Device Unknown 07/23/24 Unknown Unknown FDA Start: 07-23-2024 Insertion [facility] Venous Access Device Unknown 04/22/25 Unknown Unknown FDA Start: 04-22-2025 Insertion [facility] Venous Access Device Unknown 07/23/24 Unknown Unknown FDA Start: 07-23-2024 Insertion [facility] Venous Access Device Unknown 07/23/24 Unknown Unknown FDA Start: 07-23-2024 Insertion [facility] Venous Access Device Unknown 04/22/25 Unknown Unknown FDA Start: 04-22-2025 Insertion [facility] Venous Access Device Unknown 07/23/24 Unknown Unknown FDA Start: 07-23-2024 Insertion [facility] Venous Access Device Unknown 07/23/24 Unknown Unknown FDA Start: 07-23-2024 Insertion [facility] Venous Access Device Unknown 04/22/25 Unknown Unknown FDA Start: 04-22-2025 Functional Status Date Assessment Result Facility 05-06-2025 Functional Status Awake, Up ad hayley [facility] 05-04-2025 Functional Status ID band on, Call device within reach [facility] 04-22-2025 Functional Status Awake [facility] 04-22-2025 Functional Status ice on [facility] 04-22-2025 Functional Status Maintained [facility] 04-19-2025 Functional Status [facility] 11-05-2024 Functional Status Awake [facility] 11-03-2024 Functional Status [facility] 11-03-2024 Functional Status [facility] 11-03-2024 Functional Status Repositions self [facility] 10-22-2024 Functional Status Sensory Deficits None [facility] 10-20-2024 Functional Status Up ad hayley [facility] 10-20-2024 Functional Status [facility] 10-20-2024 Functional Status [facility] 10-20-2024 Functional Status [facility] 10-08-2024 Functional Status Awake [facility] 10-06-2024 Functional Status ID band on, Call device within reach [facility] 09-30-2024 Functional Status ID band on, Allergy Band on, Bed in low position, Wheels locked, Upper/Half-Length side-rails up [facility] 09-24-2024 Functional Status ID band on, Call device within reach, personal items within reach, Visitor at bedside, Non-Slip footwear [facility] 09-22-2024 Functional Status Safety level maintained [facility] 09-22-2024 Functional Status Awake [facility] 09-22-2024 Functional Status [facility] 09-16-2024 Functional Status ID band on, Allergy Band on [facility] 08-31-2024 Functional Status Done [facility] 08-30-2024 Functional Status [facility] 08-30-2024 Functional Status bilateral knee high patrizia lied/on [facility] 08-30-2024 Functional Status [facility] 08-30-2024 Functional Status [facility] 08-29-2024 Functional Status Beds/[facility] b ed [facility] 08-29-2024 Functional Status [facility] 08-29-2024 Functional Status [facility] 08-29-2024 Functional Status [facility] 08-29-2024 Functional Status Supervision [facility] 08-29-2024 Functional Status [facility] 08-28-2024 Functional Status Dinner Percent 50 [facility] 08-28-2024 Functional Status Patient Identified Iden tification band [facility] 08-28-2024 Functional Status NPO Status Maintained A [facility] 08-28-2024 Functional Status [facility] 08-28-2024 Functional Status [facility] 08-27-2024 Functional Status Linen Change Done [facility] 08-27-2024 Functional Status Lunch Percent 50 [facility] 08-27-2024 Functional Status [facility] 08-27-2024 Functional Status [facility] 08-26-2024 Functional Status [facility] 08-26-2024 Functional Status [facility] 08-26-2024 Functional Status [facility] 08-25-2024 Functional Status [facility] 08-24-2024 Functional Status [facility] 08-24-2024 Functional Status [facility] 08-24-2024 Functional Status [facility] 08-23-2024 Functional Status Skin Care Prev entative Intervention(s) heel(s)s elevated [facility] 08-23-2024 Functional Status [facility] 08-23-2024 Functional Status [facility] 08-22-2024 Functional Status [facility] 08-21-2024 Functional Status Ambulation Distance 20 [facility] 08-20-2024 Functional Status [facility] 08-19-2024 Functional Status Sensory Deficits None A [facility] 08-18-2024 Functional Status Up to chair [facility] 08-06-2024 Functional Status Awake [facility] 08-04-2024 Functional Status Up ad hayley [facility] 08-04-2024 Functional Status [facility] 08-04-2024 Functional Status [facility] 07-23-2024 Functional Status Awake [facility] 07-23-2024 Functional Status [facility] 07-23-2024 Functional Status Maintained [facility] 2024 Functional Status Sensory Deficits None A [facility] 07-16-2024 Functional Status ID band on, Visitor at bedside [facility] 07-16-2024 Functional Status [facility] 07-15-2024 Functional Status Sensory Deficits None A [facility] 04-15-2024 Functional Status ID band on, Visitor at bedside, Safety level maintained [facility] 04-02-2024 Functional Status Sensory Deficits None A [facility] 03-23-2024 Functional Status ID band on [facility] 03-16-2024 Functional Status Room check performed [facility] 03-16-2024 Functional Status [facility] 03-16-2024 Functional Status [facility] 03-16-2024 Functional Status [facility] 03-15-2024 Functional Status [facility] 03-15-2024 Functional Status Independent [facility] 03-15-2024 Functional Status [facility] 03-14-2024 Functional Status [facility] 03-14-2024 Functional Status [facility] 03-14-2024 Functional Status Done [facility] 03-13-2024 Functional Status [facility] 03-13-2024 Functional Status [facility] 03-13-2024 Functional Status Maintained [facility] 03-13-2024 Functional Status [facility] 03-13-2024 Functional Status [facility] 03-13-2024 Functional Status [facility] 03-12-2024 Functional Status [facility] 03-11-2024 Functional Status [facility] 03-11-2024 Functional Status [facility] 03-09-2024 Functional Status Multilevel home [facility] 03-09-2024 Functional Status [facility] 03-09-2024 Functional Status [facility] 03-09-2024 Functional Status Sensory Deficits None A [facility] Mental Status Date Assessment Result Facility 05-06-2025 Mental Status Orientation Oriented x 4 [facility] 05-04-2025 Mental Status Orientation Oriented x 4 [facility] 04-22-2025 Mental Status Oriented x 4 [facility] 04-22-2025 Mental Status [facility] 11-05-2024 Mental Status Orientation Oriented x 4 [facility] 11-03-2024 Mental Status Orientation Oriented x 4 [facility] 10-22-2024 Mental Status Orientation Oriented x 4 [facility] 10-20-2024 Mental Status Orientation Oriented x 4 [facility] 10-06-2024 Mental Status Orientation Oriented x 4 [facility] 09-30-2024 Mental Status Orientation Oriented x 4 [facility] 09-24-2024 Mental Status Orientation Oriented x 4 [facility] 09-16-2024 Mental Status Orientation Oriented x 4 [facility] 08-31-2024 Mental Status Oriented x 4 [facility] 08-30-2024 [facility] 08-18-2024 Mental Status Orientation Oriented x 4 [facility] 08-06-2024 Mental Status Orientation Oriented x 4 [facility] 08-04-2024 Mental Status Orientation Oriented x 4 [facility] 07-23-2024 Mental Status [facility] 07-16-[facility] Mental Status Orientation Oriented x 4 [facility] 07-16-2024 [facility] 03-23-[facility]24 Mental Status Orientation Oriented x 4 [facility] 03-16-2024 Mental Status Orientation Oriented x 4 [facility] 03-16-2024 [facility] 03-15-[facility]24 Mental Status [facility] 03-15-2024 Mental Status [facility] Clinical Notes 03-09-2024 to 05-06-2025 Note Date & Type Note Facility 05-06-2025 Summary of episod e note CLARISSE PEGUERO :1980 Visit Date:05/06/2025 Signatures Patient Education Materials Medication Leaflets My discharge plan and instructions have been reviewed and explained to me and I,CLARISSE PEGUERO understand my current condition and have read and understand these discharge instructions. I have received a written copy of the plan/instructions. If I have questions, I am aware that I should contact my doctor. 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: Date/Time: Relationship to Patient: Witness Name/Signature: Date/Time: [facility] 05-04-2025 Summary of episod e note CLARISSE PEGUERO :1980 Visit Date:05/04/2025 Your Visit Summary Your Diagnosis Adenocarcinoma of sigmoid colon Tests Performed .Auto Differential .Estimated Glomerular Filtration Rate .Neutro Absolute CBC CEA CMP Your Care Team Attending Physician - ROSEANN LUNDBERG MD Primary Care Physician - ABDULKADIR ROSALES PA-C Vitals Temperature (Temporal Artery) 98.2 F (36.8 C) Heart Rate 82 Blood Pressure 128/82 Height 62.99 in (160.0 cm) Weight 224.25 lb (101.7 kg) BMI 39.73 What to do next Instructions From Your Doctor .inf Scheduled Follow-Up Appointments Appointment Type When With Where Contact Information StatusCT Chest w/ Contrast 05/05/2025 02:00 PM EST Radiology [phone] Abd/Pelvis w/ IV Contrast Only 05/05/2025 02:30 PM EST Radiology [id number] Confirmed INF/OSP Labwork 05/06/2025 01:00 PM EST Infusion Therapy Confirmed INF Chemo: Infusion Pump Discontinue 15 05/06/2025 01:15 PM EST Infusion Therapy Confirmed GS OV Post Op 05/11/2025 09:15 AM EST ARLENE RODRIGEZ MD [facility] Confirmed INF/OSP Labwork 05/18/2025 07:45 AM EST Infusion Therapy Confirmed HEM ONC OV Follow Up w/PATRIZIA Active Treatm 05/18/2025 08:30 AM EST FRANCES MCKEON APRN-[facility] Confirmed INF Chemo: Infusion 240 min (4 hours) 05/18/2025 09:00 AM EST Infusion Therapy Confirmed INF/OSP Labwork 05/20/2025 01:00 PM EST Infusion Therapy Confirmed INF Chemo: Infusion Pump Discontinue 15 05/20/2025 01:15 PM EST Infusion Therapy Confirmed INF/OSP Labwork 06/01/2025 07:45 AM EST Infusion Therapy Confirmed HEM ONC OV Follow Up w/MD Active Treatme 06/01/2025 08:30 AM EST ROSEANN LUNDBERG MD Hematology and Oncology Confirmed INF Chemo: Infusion 240 min (4 hours) 06/01/2025 09:00 AM EST Infusion Therapy Confirmed INF/OSP Labwork 06/03/2025 01:00 PM EST Infusion Therapy Confirmed INF Chemo: Infusion Pump Discontinue 15 06/03/2025 01:15 PM EST Infusion Therapy Confirmed INF/OSP Labwork 06/15/2025 07:45 AM EST Infusion Therapy Confirmed INF Chemo: Infusion 240 min (4 hours) 06/15/2025 08:00 AM EST Infusion Therapy Confirmed INF/OSP Labwork 06/17/2025 01:00 PM EST Infusion Therapy Confirmed INF Chemo: Infusion Pump Discontinue 15 06/17/2025 01:15 PM EST Infusion Therapy Confirmed INF/OSP Labwork 06/29/2025 07:45 AM EST Infusion Therapy Confirmed HEM ONC OV Follow Up w/PATRIZIA Active Treatm 06/29/2025 08:30 AM EST FRANCES MCKEON FLEXO OPERATOR-SVP RESEARCH AND STRATEGIC ANALYSIS [facility] Confirmed INF Chemo: Infusion 240 min (4 hours) 06/29/2025 09:00 AM EST Infusion Therapy Confirmed INF/OSP Labwork 07/01/2025 01:00 PM EST Infusion Therapy Confirmed INF Chemo: Infusion Pump Discontinue 15 07/01/2025 01:15 PM EST Infusion Therapy Confirmed CT Abd/Pelvis w/ IV Contrast Only 07/08/2025 10:00 AM EST Radiology [phone] Confirmed yyCT Chest w/ Contrast 3 07/08/2025 10:15 AM EST Radiology [phone] Confirmed INF/OSP Labwork 07/13/2025 07:45 AM EST Infusion Therapy Confirmed HEM ONC OV Follow Up w/ Active Treatme 07/13/2025 08:30 AM EST ROSEANN LUNDBERG MD [facility] Confirmed INF Chemo: Infusion 240 min (4 hours) 07/13/2025 09:00 AM EST Infusion Therapy Confirmed INF/OSP Labwork 07/15/2025 01:00 PM EST Infusion Therapy Confirmed INF Chemo: Infusion Pump Discontinue 15 07/15/2025 01:15 PM EST Infusion Therapy Confirmed Medications What How Much When Why Instructions Unchanged loratadine (Claritin 10 mg oral tablet) 1 tab(s) by mouth Once a day (in the morning) Unchanged OLANZapine (ZyPREXA 5 mg oral tablet) 1 tab(s) by mouth Every day take at bedtime Unchanged omeprazole (omeprazole 20 mg oral delayed release capsule) 1 cap by mouth Once a day (in the morning) Unchanged ondansetron (Zofran 8 mg oral tablet) 1 tab(s) by mouth Every 8 hours as needed for Nausea/Vomiting Adenocarcinoma of sigmoid colon Unchanged prochlorperazine (prochlorperazine 5 mg oral tablet) 1 tab(s) by mouth Three (3) times a day as needed for Nausea/Vomiting Test Results .Auto Differential (05/04/2025) Neutrophil % - 63.8 % Lymphocyte % - 26.7 % Monocyte % - 6.6 % Eosinophil % - 2.4 % Basophil % - 0.5 % Lymphocyte, Absolute - 1.4 10^3/mcL Monocyte, Absolute - 0.4 10^3/mcL Eosinophil, Absolute - 0.1 10^3/mcL Basophil, Absolute - 0.0 10^3/mcL .Estimated Glomerular Filtration Rate (05/04/2025) Estimated Glomerular Filtration Rate - 120 ml/min/1.73sqm .Neutro Absolute (05/04/2025) Neutrophil, Absolute - 3.4 10^3/mcL CBC (05/04/2025) WBC - 5.3 10^3/mcL RBC - 4.22 10^6/mcL Hgb - 9.3 G/dL Hct - 30.9 % MCV - 73.2 fL MCH - 22.0 pg MCHC - 30.0 G/dL RDW - 20.0 % Platelet - 249 10^3/mcL MPV - 8.4 fL CEA (05/04/2025) CEA - 238.2 ng/mL CMP (05/04/2025) Glucose Level - 103 mg/dL Sodium Level - 141 mEq/L Potassium Level - 3.8 mEq/L Chloride - 106 mEq/L CO2 - 27 mEq/L Electrolyte Balance - 8.0 mEq/L BUN - 11.0 mg/dL Creatinine Lvl (s) - 0.47 mg/dL BUN/Creatinine Ratio - 23.4 ratio Calcium Lvl - 9.5 mg/dL Total Protein - 7.4 G/dL Albumin Level - 3.7 G/dL Globulin - 3.7 G/dL A/G Ratio - 1.0 ratio Bili Total - 1.00 mg/dL Alk Phos - 86 U/L AST/SGOT - 21 U/L ALT/SGPT - 17 U/L Allergies ciprofloxacin Insomnia, Nausea, High Blood Pressure, Tachycardia Additional Information VACCINATE! IT SAVES LIVES! Members of the community who have not yet received the COVID-19 vaccine and would like to receive it can visit one of [facility] vaccine clinics. There are many vaccine clinic locations within the [facility]. For locations and available times, please visit [email or web address].[place] .[email or web address] It is important to note that some COVID mobile vaccine clinics are held outdoors and may be canceled in rainy or stormy conditions. To learn more about pediatric vaccinations (ages 5-11), we invite you to visit the [employer] [facility] webpage. [email or web address] To learn more about the COVID-19 vaccine, we invite you to visit the CDC website for a list of frequently asked questions. https://www.cdc.gov/coronavirus /2019-ncov/vaccines/faq.html [facility] [employer] Patient Portal Access Instructions: Stay connected with your healthcare team and access your personal medical information anytime with the [facility] Patient Portal.If you would like a full copy of your medical records, please contact the [facility] Medical Records Department, Saturday through Saturday between 8a.m. and 4:30p.m. Please follow the directions below to access the portal: 1.Access the email account you provided upon registration to the hospital.2.Look for an invitation email from [facility].3.Open the email and access the invitation link: Accept Invitation to [facility]4.Fill in the required wetzel to create your account. To access your account, visit [email or web address] or scan the URX code above. Click the blue button labeled Access Patient Portal and then log in with the username and password that you created in the steps above. You can then view a summary of results, a summary of your visits, and the ability to download your summaries to your computer or send the information securely to a physician. Remember that your healthcare information is confidential, so carefully consider who you will allow to register on the [facility] Patient Portal for access to your information. You can also access the [facility] Patient Portal on the [employer]. Simply click on Health Records under Health Data and then click on the [employer] logo. HOW TO SAFELY DISPOSE OF PRESCRIPTION MEDICATIONS Please use one of the following methods to safely dispose of your unused medications. 1.Use a drug disposal kit: the drug disposal pouch allows you to safely discard your old and unused drugs. Ask your nurse to give you one when you are discharged.2.Visit a local take-back location: Many local pharmacies and police departments have programs that collect old and unwanted prescription drugs. Call your local pharmacy or go to http://nooked.[employer]/2J4Ce2f to find one close to you.3.Make use of household items: Use cat litter or old coffee grounds to dispose medications if other options are not available. Mix your drugs with these household products, seal them in an airtight container and throw it into the garbage. Call [facility]: [phone] to be sure your drugs can be disposed of in this way. Some medicines may require a different approach.4.Never flush your medications down the toilet. IF YOU HAVE BEEN PRESCRIBED AN OPIOID FOR PAIN If you have been prescribed an opioid (such as hydrocodone, oxycodone or morphine), it is critical to understand the possible side effects and risks of opioid pain medications. Even when taken as directed, opioids can have several side effects including: Tolerance, meaning you might need to take more of a medication for the same pain relief. Nausea, vomiting and/or constipation. Sleepiness, dizziness, dry mouth, confusion, depression or itching. Physical dependence, meaning you have withdrawal symptoms when a medication is stopped, can develop within a few days. KNOW YOUR RESPONSIBILITIES It is important to know exactly how much and how often to take the opioid pain medications you are prescribed. Never take opioids in higher amounts or more often than prescribed. Do not combine opioids with alcohol or other drugs that cause drowsiness, such as benzodiazepines, also known as benzos, including diazepam and alprazolam, muscle relaxants or sleep aids. Never sell or share prescription opioids. This is illegal. Store opioids in a secure place and out of reach of others (including children, family, friends and visitors). The last page of this document has been signed and retained as a CHART COPY. Signatures Patient Education Materials Medication Leaflets My discharge plan and instructions have been reviewed and explained to me and ISUDHIR ELLA J understand my current condition and have read and understand these discharge instructions. I have received a written copy of the plan/instructions. If I have questions, I am aware that I should contact my doctor. 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 Author Type: Physician Type: Progress Notes Filed: 05/04/2025 14:56 Note Text: Patient referred by Dr. Roseann Lundberg for ongoing management of metastatic colon cancer. HPI: The patient is a 44-year-old female who was diagnosed with metastatic colorectal cancer in May 2024. Outside records indicate patient had a history of complicated diverticulitis in March 2024. She was admitted to [facility] where CT demonstrated a large abscess with extension into the rectouterine pouch. There was evidently concern for obstructive uropathy as well. She was treated with IV antibiotics and CT guided drainage of the abscess. Rectal bleeding continued and bowel movements were noted to be irregular. A CT scan of the abdomen pelvis on 04/27/2024 done at [facility] demonstrated a 2-1/2 cm hypodense focus in the right hepatic lobe. This was noted to have increased in size when compared to a CT scan of the abdomen pelvis on 03/08/2024. Prior measurements were not rendered. There was also a 11 mm focus in the left lobe that was new when compared to the previous exam. Mucosal thickening was noted involving a segment of the sigmoid colon consistent with inflammatory versus neoplastic process. A previously described air-fluid mass was no longer present. CT of the chest demonstrated an 8 mm nodule in the left upper lobe and a nodule in the right upper lobe. She underwent a colonoscopy in May 2024 which demonstrated a circumferential mass in the sigmoid colon. Biopsy of the sigmoid mass 18 cm from the anal verge on 06/08/2024 demonstrated moderately differentiated adenocarcinoma. Biopsy specimen was pMMR. She was started on FOLFOX 08/05/2024. She had been seen at [facility] for second opinion. An MRI performed with Eovist on 08/03/2024 reportedly demonstrated multiple liver lesions in segment 8, 5 and 3 with a dominant lesion in segment 8/4A. 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 There was an incompletely characterized T2 hyperintense right upper lobe lung nodule. Dedicated chest imaging was recommended. Additionally there was a T2 hyperintense lesion in the T7 vertebral body which was incompletely characterized. Most recently receiving therapy with FOLFIRI and growth factor support. Rotated to FOLFIRI 10/2024. Patient recalls increase in CEA. Most recent office visit note indicates that CT of the chest abdomen pelvis had shown response. CEA was trending lower. Recent hold on chemotherapy secondary to port malfunction with leaking. Patient was in need of dental extraction which was to be done prior to port replacement. DVT post- daughter who is 20 years old. Son who is 17. No VTE complications with . Did not receive VTE prophylaxis. Previous therapy: 1) FOLFOX x5 cycles. Current therapy: 1) FOLFIRI x10 cycles. No symptoms of sensory neuropathy now. Was having vomiting day 1 during infusion of Emend. Evidently had nausea from preservative in Emend. Received a different formulation and that symptom stopped. However has had n/v days 6-7 consistently with FOLFIRI. Had olanzapine added and that gave her relief from n/v days 6-7. Dental extraction 04/13/2025. Port replaced 04/22/2025. 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 No past medical history on file. No past surgical history on file. Current Outpatient Medications Medication Sig omeprazole (PRILOSEC) 20 mg capsule Take 20 mg by mouth once daily. ondansetron (ZOFRAN) 8 mg tablet Take 8 mg by mouth every 8 hours as needed. ZYPREXA 5 mg tablet Take 5 mg by mouth daily at bedtime. (Patient taking differently: Take 5 mg by mouth as needed.) prochlorperazine (COMPAZINE) 5 mg tablet Take 5 mg by mouth every 6 hours as needed. loratadine (CLARITIN) 10 mg tablet Take 10 mg by mouth as needed. No current facility-administered medications for this visit. ALLERGIES Allergen Reactions Ciprofloxacin Other: See Comments Hypertension and high heart rate SOCIAL HISTORY[1] Family history: 1) Paternal aunt--Breast cancer in her 60s. 2) Maternal uncle--Bone cancer in his 50s. REVIEW OF SYSTEMS: Constitutional: No episodes of fever. Neuro: No TAMAYO, vertigo, dizziness and imbalance. HEENT: No recent change in voice, vision or hearing. Resp: No cough, wheeze and hemoptysis. No shortness of breath at rest. CVS: No exertional chest pain, PND, orthopnea and LE edema. GI: See above. : No dysuria or gross hematuria. Endo: No hot flashes. Musculoskeletal: No bone, back, joint and muscular pain. Derm: No current rash. Heme: No unusual bleeding and unexplained bruising. Psych: Normal mood. PHYSICAL EXAM: Vitals: Blood pressure 116/80, pulse 87, temperature 36.8 ?C (98.2 ?F), (more content not included)... [facility] 04-22-2025 Hospital Discharg e instructions Patient Education 04/22/2025 09:18:42 [facility] Discharge Instructions Template (03/2018) (CUSTOM) [facility] DISCHARGE INSTRUCTIONS PLEASE FOLLOW THE INSTRUCTIONS BELOW MARKED WITH AN X: _x__ Regular Diet: Start with clear liquids, then soup and crackers and gradually add other foods. _x__ Drink extra fluids. ___ Special Diet Instructions: ___ ACTIVITY: _x__ Avoid stress to suture line. Since you have had an anesthetic, it would be advisable not to drive, drink alcohol, or make major decisions over the next 24 hours. You may require more rest tonight and tomorrow. _x__ May resume regular activity as tolerated. ___ Restrict activity as follows: ___ ___ Walk Only ___ ___ Do not go up and down stairs. ___ Do not ride in car until ___ ___ Do not drive car. ___ Do not have sexual intercourse. _x__ No heavy lifting, pushing or straining. _x__ Other: _Follow all verbal and written orders given by Dr. Rodrigez. See general surgery post-operative pamphlet for additional instructions supplied to you.__ BATHING/SHOWERING: ___ Sponge bathe until office visit. ___ Sitting in tub of warm water may relieve discomfort. ___ May tub bathe _x__ May shower ___ On day after surgery sit in tub of warm water to soak off dressing. DRESSING: _x__ Keep operative area dry and clean for _24hrs.__ _x__ Check the operative area for signs of bleeding. Apply pressure to the bleeding site if necessary and call your physician. ___ Change dressing as necessary using sterile dressing material or bandaid. ___ Reinforce dressing as necessary. ___ Change and care for wound as follows: ___ ___ Wear bra for ___ days following breast surgery for comfort. ___ Change drip pad as needed. ___ Wear scrotal support for comfort. WATCH FOR SIGNS OF INFECTION: (Usually appears 36-48 hours after surgery) Increased temperature (101 degrees Fahrenheit or higher) Redness or swelling Increased pain Foul odor or drainage. If you have any questions, please call your doctor at the number listed on your follow up instructions. Follow all instructions given to you by your physician. Please complete and return the survey you will be receiving in the mail to help us better serve our patients. Form: 1522 ([id number]) R: 10/0704/22/2025 09:17:21 Implanted Port Insertion, Care After Implanted Port Insertion, Care After This sheet gives you information about how to care for yourself after your procedure. Your health care provider may also give you more specific instructions. If you have problems or questions, contact your health care provider. What can I expect after the procedure? After the procedure, it is common to have: Discomfort at the port insertion site. Bruising on the skin over the port. This should improve over 3 4 days. Follow these instructions at home: Port care After your port is placed, you will get a video editor's information card. The card has information about your port. Keep this card with you at all times. Take care of the port as told by your health care provider. Ask your health care provider if you or a family member can get training for taking care of the port at home. A home health care nurse may also take care of the port. Make sure to remember what type of port you have. Incision care Follow instructions from your health care provider about how to take care of your port insertion site. Make sure you: ?Wash your hands with soap and water before and after you change your bandage (dressing). If soap and water are not available, use hand buildings and grounds director. ?Change your dressing as told by your health care provider. ?Leave stitches (sutures), skin glue, or adhesive strips in place. These skin closures may need to stay in place for 2 weeks or longer. If adhesive strip edges start to loosen and curl up, you may trim the loose edges. Do not remove adhesive strips completely unless your health care provider tells you to do that. Check your port insertion site every day for signs of infection. Check for: ?Redness, swelling, or pain. ?Fluid or blood. ?Warmth. ?Pus or a bad smell. Activity Return to your normal activities as told by your health care provider. Ask your health care provider what activities are safe for you. Do not lift anything that is heavier than 10 lb (4.5 kg), or the limit that you are told, until your health care provider says that it is safe. General instructions Take lrbg-lfo-zrdknty and prescription medicines only as told by your health care provider. Do not take baths, swim, or use a hot tub until your health care provider approves. Ask your health care provider if you may take showers. You may only be allowed to take sponge baths. Do not drive for 24 hours if you were given a sedative during your procedure. Wear a medical alert bracelet in case of an emergency. This will tell any health care providers that you have a port. Keep all follow-up visits as told by your health care provider. This is important. Contact a health care provider if: You cannot flush your port with saline as directed, or you cannot draw blood from the port. You have a fever or chills. You have redness, swelling, or pain around your port insertion site. You have fluid or blood coming from your port insertion site. Your port insertion site feels warm to the touch. You have pus or a bad smell coming from the port insertion site. Get help right away if: You have chest pain or shortness of breath. You have bleeding from your port that you cannot control. Summary Take care of the port as told by your health care provider. Keep the video editor's information card with you at all times. Change your dressing as told by your health care provider. Contact a health care provider if you have a fever or chills or if you have redness, swelling, or pain around your port insertion site. Keep all follow-up visits as told by your health care provider. This information is not intended to replace advice given to you by your health care provider. Make sure you discuss any questions you have with your health care provider. Document Released: 04/07/2014 Document Revised: 01/13/2019 Document Reviewed: 01/13/2019 [employer] Patient Education 2020 Observe Medical. Follow Up Care 03/30/2025 09:40:04 With:ARLENE RODRIGEZ MD, Surgery Address: [address] [place] [address] [address] [place] [address]- [phone] When: Unknown Comments:Follow-up as scheduled Follow-up as needed [facility] 04-22-2025 Summary of episod e note Discharge Instructions Thank you for allowing [facility] to assist you with your healthcare needs. The following is important discharge information regarding your hospital visit. Your Care Team ABDULKADIR ROSALES PA-C What to do next Scheduled Follow-Up Appointments Appointment Type When With Where Contact Information StatusINF/OSP Labwork 05/04/2025 07:45 AM EST Infusion Therapy Confirmed HEM ONC OV Follow Up w/ Active Treatme 05/04/2025 08:30 AM EST ROSEANN LUNDBERG MD [facility] Confirmed INF Chemo: Infusion 240 min (4 hours) 05/04/2025 09:00 AM EST Infusion Therapy Confirmed INF/OSP Labwork 05/06/2025 01:00 PM EST Infusion Therapy Confirmed INF Chemo: Infusion Pump Discontinue 15 05/06/2025 01:15 PM EST Infusion Therapy Confirmed GS OV Post Op 05/11/2025 09:15 AM EST ARLENE RODRIGEZ MD [facility] Confirmed INF/OSP Labwork 05/18/2025 07:45 AM EST Infusion Therapy Confirmed HEM ONC OV Follow Up w/PATRIZIA Active Treatm 05/18/2025 08:30 AM EST SHEA CLAY APRN-PROPOSAL EDITOR [facility] Confirmed INF Chemo: Infusion 240 min (4 hours) 05/18/2025 09:00 AM EST Infusion Therapy Confirmed INF/OSP Labwork 05/20/2025 01:00 PM EST Infusion Therapy Confirmed INF Chemo: Infusion Pump Discontinue 15 05/20/2025 01:15 PM EST Infusion Therapy Confirmed INF/OSP Labwork 06/01/2025 07:45 AM EST Infusion Therapy Confirmed HEM ONC OV Follow Up w/ Active Treatme 06/01/2025 08:30 AM EST ROSEANN LUNDBERG MD [facility] Confirmed INF Chemo: Infusion 240 min (4 hours) 06/01/2025 09:00 AM EST Infusion Therapy Confirmed INF/OSP Labwork 06/03/2025 01:00 PM EST Infusion Therapy Confirmed INF Chemo: Infusion Pump Discontinue 15 06/03/2025 01:15 PM EST Infusion Therapy Confirmed INF/OSP Labwork 06/15/2025 07:45 AM EST Infusion Therapy Confirmed INF Chemo: Infusion 240 min (4 hours) 06/15/2025 08:00 AM EST Infusion Therapy Confirmed INF/OSP Labwork 06/17/2025 01:00 PM EST Infusion Therapy Confirmed INF Chemo: Infusion Pump Discontinue 15 06/17/2025 01:15 PM EST Infusion Therapy Confirmed INF/OSP Labwork 06/29/2025 07:45 AM EST Infusion Therapy Confirmed HEM ONC OV Follow Up w/PATRIZIA Active Treatm 06/29/2025 08:30 AM EST FRANCES MCKEON FLEXO OPERATOR-SVP RESEARCH AND STRATEGIC ANALYSIS [facility] Confirmed INF Chemo: Infusion 240 min (4 hours) 06/29/2025 09:00 AM EST Infusion Therapy Confirmed INF/OSP Labwork 07/01/2025 01:00 PM EST Infusion Therapy Confirmed INF Chemo: Infusion Pump Discontinue 15 07/01/2025 01:15 PM EST Infusion Therapy Confirmed CT Abd/Pelvis w/ IV Contrast Only 07/08/2025 10:00 AM EST Radiology [phone] Confirmed yyCT Chest w/ Contrast 3 07/08/2025 10:15 AM EST Radiology [phone] Confirmed INF/OSP Labwork 07/13/2025 07:45 AM EST Infusion Therapy Confirmed HEM ONC OV Follow Up w/MD Active Treatme 07/13/2025 08:30 AM ROSEANN THOMPSON MD [facility] Confirmed INF Chemo: Infusion 240 min (4 hours) 07/13/2025 09:00 AM EST Infusion Therapy Confirmed INF/OSP Labwork 07/15/2025 01:00 PM EST Infusion Therapy Confirmed INF Chemo: Infusion Pump Discontinue 15 07/15/2025 01:15 PM EST Infusion Therapy Confirmed Follow Up Appointments Follow Up with ARLENE RODRIGEZ MD, Surgery Where:[address] [facility] [address] [facility] [address] [facility] [place] [address]- [phone] Additional Information: Follow-up as scheduled Follow-up as needed The Following Activity and Diet Have Been Ordered for You Discharge Activity - Ordered -- Lifting Restricted less than 25 pounds, 04/22/25 9:07:00 EDT Discharge Diet - Ordered -- Type of Diet: Regular, 04/22/25 9:07:00 EDT The Following Equipment Has Been Ordered for You Discharge Home Equipment Discharge Wound Care - Ordered -- Follow the post-operative/post-procedure wound care instructions provided by your physician's office., 04/22/25 9:07:00 EDT Someone Will Contact You Regarding These Home Health Referrals No home referrals have been ordered for you. No one will call you. Allergies ciprofloxacin Insomnia, Nausea, High Blood Pressure, Tachycardia Medications Please ask your primary doctor or pharmacist before taking any other medication not listed, including over the counter drugs, herbal medications, vitamins and or supplements as they may interact with your home medications. What How Much When Why Instructions Last Dose Unchanged loratadine (Claritin 10 mg oral tablet) 1 tab(s) by mouth Once a day (in the morning) Unchanged OLANZapine (ZyPREXA 5 mg oral tablet) 1 tab(s) by mouth Every day take at bedtime Unchanged omeprazole (omeprazole 20 mg oral delayed release capsule) 1 cap by mouth Once a day (in the morning) Unchanged ondansetron (Zofran 8 mg oral tablet) 1 tab(s) by mouth Every 8 hours as needed for Nausea/Vomiting Adenocarcinoma of sigmoid colon Unchanged prochlorperazine (prochlorperazine 5 mg oral tablet) 1 tab(s) by mouth Three (3) times a day as needed for Nausea/Vomiting Please take this list to your next doctor s visit. Bring all medications you take, including over the counter medications, herbals and other supplements with you to your doctor s visit. Patients and families are reminded to discard old lists and to update any records with all medication providers or retail pharmacies. Education Materials [facility] SAME DAY SURGERY DISCHARGE INSTRUCTIONS PLEASE FOLLOW THE INSTRUCTIONS BELOW MARKED WITH AN X: _x__ Regular Diet: Start with clear liquids, then soup and crackers and gradually add other foods. _x__ Drink extra fluids. ___ Special Diet Instructions: ___ ACTIVITY: _x__ Avoid stress to suture line. Since you have had an anesthetic, it would be advisable not to drive, drink alcohol, or make major decisions over the next 24 hours. You may require more rest tonight and tomorrow. _x__ May resume regular activity as tolerated. ___ Restrict activity as follows: ___ ___ Walk Only ___ ___ Do not go up and down stairs. ___ Do not ride in car until ___ ___ Do not drive car. ___ Do not have sexual intercourse. _x__ No heavy lifting, pushing or straining. _x__ Other: _Follow all verbal and written orders given by Dr. Rodrigez. See general surgery post-operative pamphlet for additional instructions supplied to you.__ BATHING/SHOWERING: ___ Sponge bathe until office visit. ___ Sitting in tub of warm water may relieve discomfort. ___ May tub bathe _x__ May shower ___ On day after surgery sit in tub of warm water to soak off dressing. DRESSING: _x__ Keep operative area dry and clean for _24hrs.__ _x__ Check the operative area for signs of bleeding. Apply pressure to the bleeding site if necessary and call your physician. ___ Change dressing as necessary using sterile dressing material or bandaid. ___ Reinforce dressing as necessary. ___ Change and care for wound as follows: ___ ___ Wear bra for ___ days following breast surgery for comfort. ___ Change drip pad as needed. ___ Wear scrotal support for comfort. WATCH FOR SIGNS OF INFECTION: (Usually appears 36-48 hours after surgery) Increased temperature (101 degrees Fahrenheit or higher) Redness or swelling Increased pain Foul odor or drainage. If you have any questions, please call your doctor at the number listed on your follow up instructions. Follow all instructions given to you by your physician. Please complete and return the survey you will be receiving in the mail to help us better serve our patients. Form: 1522 ([id number]) R: 10/07 Implanted Port Insertion, Care After This sheet gives you information about how to care for yourself after your procedure. Your health care provider may also give you more specific instructions. If you have problems or questions, contact your health care provider. What can I expect after the procedure? After the procedure, it is common to have: Discomfort at the port insertion site. Bruising on the skin over the port. This should improve over 3 4 days. Follow these instructions at home: Port care After your port is placed, you will get a video editor's information card. The card has information about your port. Keep this card with you at all times. Take care of the port as told by your health care provider. Ask your health care provider if you or a family member can get training for taking care of the port at home. A home health care nurse may also take care of the port. Make sure to remember what type of port you have. Incision care Follow instructions from your health care provider about how to take care of your port insertion site. Make sure you: ? Wash your hands with soap and water before and after you change your bandage (dressing). If soap and water are not available, use hand buildings and grounds director. ? Change your dressing as told by your health care provider. ? Leave stitches (sutures), skin glue, or adhesive strips in place. These skin closures may need to stay in place for 2 weeks or longer. If adhesive strip edges start to loosen and curl up, you may trim the loose edges. Do not remove adhesive strips completely unless your health care provider tells you to do that. Check your port insertion site every day for signs of infection. Check for: ? Redness, swelling, or pain. ? Fluid or blood. ? Warmth. ? Pus or a bad smell. Activity Return to your normal activities as told by your health care provider. Ask your health care provider what activities are safe for you. Do not lift anything that is heavier than 10 lb (4.5 kg), or the limit that you are told, until your health care provider says that it is safe. General instructions Take zjzh-otx-pkgdxhd and prescription medicines only as told by your health care provider. Do not take baths, swim, or use a hot tub until your health care provider approves. Ask your health care provider if you may take showers. You may only be allowed to take sponge baths. Do not drive for 24 hours if you were given a sedative during your procedure. Wear a medical alert bracelet in case of an emergency. This will tell any health care providers that you have a port. Keep all follow-up visits as told by your health care provider. This is important. Contact a health care provider if: You cannot flush your port with saline as directed, or you cannot draw blood from the port. You have a fever or chills. You have redness, swelling, or pain around your port insertion site. You have fluid or blood coming from your port insertion site. Your port insertion site feels warm to the touch. You have pus or a bad smell coming from the port insertion site. Get help right away if: You have chest pain or shortness of breath. You have bleeding from your port that you cannot control. Summary Take care of the port as told by your health care provider. Keep the video editor's information card with you at all times. Change your dressing as told by your health care provider. Contact a health care provider if you have a fever or chills or if you have redness, swelling, or pain around your port insertion site. Keep all follow-up visits as told by your health care provider. This information is not intended to replace advice given to you by your health care provider. Make sure you discuss any questions you have with your health care provider. Document Released: 04/07/2014 Document Revised: 01/13/2019 Document Reviewed: 01/13/2019 Elsevier Patient Education 2020 [employer] Additional Information VACCINATE! IT SAVES LIVES! Members of the community who have not yet received the COVID-19 vaccine and would like to receive it can visit one of [facility] vaccine clinics. There are many vaccine clinic locations within the [facility]. For locations and available times, please visit https://gettheshot.coronavirus. [place].gov/. It is important to note that some COVID mobile vaccine clinics are held outdoors and may be canceled in rainy or stormy conditions. To learn more about pediatric vaccinations (ages 5-11), we invite you to visit the [facility] webpage. https://www.[facility].org/ pages/9192-Ajesz-Kpiyuyessbx-Fr wxzklmhw-Tvjqc-Lhzxlfwjm.html To learn more about the COVID-19 vaccine, we invite you to visit the CDC website for a list of frequently asked questions.https://www.cdc.gov/c oronavirus/2019-ncov/vaccines/f aq.html [facility] Patient Portal Access Instructions: Stay connected with your healthcare team and access your personal medical information anytime with the [facility] Patient Portal. Please follow the directions below to create your [facility] account: 1.Access the email account you provided upon registration to the hospital/physician office.2.Look for an invitation email from [facility].3.Open the email and access the invitation link: Accept Invitation to [facility].4.Fill in the required wetzel to create your account. To access your account, visit Friend[employer]/BFKW or scan the URX code above. Click the blue button labeled Access Patient Portal and then log in with the username and password that you created in the steps above. You will be able to view your test results, lab results, a summary of your visits, upcoming appointments and more. There is also a convenient messaging option where you can send secure messages to your provider. In addition, you will have the ability to download any documents or summaries to your computer and/or send the information securely to a physician. Remember that your healthcare information is confidential, so carefully consider who you will allow to register on the [facility] [employer] [facility] Patient Portal for access to your information. You can also access the [facility] Patient Portal on the [facility] [employer]zia. Simply click on Patient Portal and then log into your account. If you would like to receive a full copy of your medical records, please contact the [facility] Medical Records Department by calling [phone], Saturday through Saturday between 8 a.m. and 4:30 p.m. HOW TO SAFELY DISPOSE OF PRESCRIPTION MEDICATIONS Please use one of the following methods to safely dispose of your unused medications. 1.Use a drug disposal kit: the drug disposal pouch allows you to safely discard your old and unused drugs. Ask your nurse to give you one when you are discharged.2.Visit a local take-back location: Many local pharmacies and police departments have programs that collect old and unwanted prescription drugs. Call your local pharmacy or go to http://nooked.[employer]/5R0Op7j to find one close to you.3.Make use of household items: Use cat litter or old coffee grounds to dispose medications if other options are not available. Mix your drugs with these household products, seal them in an airtight container and throw it into the garbage. Call [facility]: [phone] to be sure your drugs can be disposed of in this way. Some medicines may require a different approach.4.Never flush your medications down the toilet. IF YOU HAVE BEEN PRESCRIBED AN OPIOID FOR PAIN If you have been prescribed an opioid (such as hydrocodone, oxycodone or morphine), it is critical to understand the possible side effects and risks of opioid pain medications. Even when taken as directed, opioids can have several side effects including: Tolerance, meaning you might need to take more of a medication for the same pain relief. Nausea, vomiting and/or constipation. Sleepiness, dizziness, dry mouth, confusion, depression or itching. Physical dependence, meaning you have withdrawal symptoms when a medication is stopped, can develop within a few days. KNOW YOUR RESPONSIBILITIES It is important to know exactly how much and how often to take the opioid pain medications you are prescribed. Never take opioids in higher amounts or more often than prescribed. Do not combine opioids with alcohol or other drugs that cause drowsiness, such as benzodiazepines, also known as benzos, including diazepam and alprazolam, muscle relaxants or sleep aids. Never sell or share prescription opioids. This is illegal. Store opioids in a secure place and out of reach of others (including children, family, friends and visitors). The last page of this document has been signed and retained as a CHART COPY. Signatures Patient Education Materials 1-SDS Discharge Instructions Template (03/2018) (CUSTOM) Implanted Port Insertion, Care After Medication Leaflets My discharge plan and instructions have been reviewed and explained to me and ISUDHIR ELLA J understand my current condition and have read and understand these discharge instructions. I have received a written copy of the plan/instructions. If I have questions, I am aware that I should contact my doctor. 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: Date/Time: Relationship to Patient: Witness Name/Signature: Date/Time: [facility] 04-22-2025 Anesthesiology Consult note Patient: CLARISSE PEGUERO Age: 44 years Sex: Female : 1980 Associated Diagnoses: None Author: HELEN ARGUELLO MD Assessment Postanesthesia assessment Vitals: Vital signs from flowsheet : Vital Signs 04/22/2025 8:42 EDT Temperature Temporal Artery 36 DegC Heart Rate Monitored 69 bpm Respiratory Rate 16 br/min Systolic Blood Pressure Non-Invasive 112 mmHg Diastolic Blood Pressure Non-Invasive 66 mmHg 04/22/2025 8:34 EDT Heart Rate Monitored 58 bpm LOW Respiratory Rate 16 br/min Systolic Blood Pressure Non-Invasive 113 mmHg Diastolic Blood Pressure Non-Invasive 61 mmHg 04/22/2025 8:20 EDT Temperature Temporal Artery 36.2 DegC Heart Rate Monitored 89 bpm Respiratory Rate 22 br/min HI Systolic Blood Pressure Non-Invasive 115 mmHg Diastolic Blood Pressure Non-Invasive 63 mmHg Mean Arterial Pressure (NBP) 78 mmHg 04/22/2025 8:15 EDT Heart Rate Monitored 97 bpm bpm Respiratory Rate - Anes 0 br/min br/min 04/22/2025 8:13 EDT Systolic Blood Pressure Non-Invasive 99 mmHg mmHg Diastolic Blood Pressure Non-Invasive 86 mmHg mmHg 04/22/2025 8:10 EDT Heart Rate Monitored 88 bpm bpm Respiratory Rate - Anes 28 br/min br/min Systolic Blood Pressure Non-Invasive 99 mmHg mmHg Diastolic Blood Pressure Non-Invasive 62 mmHg mmHg 04/22/2025 8:08 EDT Systolic Blood Pressure Non-Invasive 97 mmHg mmHg Diastolic Blood Pressure Non-Invasive 70 mmHg mmHg 04/22/2025 8:07 EDT Systolic Blood Pressure Non-Invasive 74 mmHg mmHg Diastolic Blood Pressure Non-Invasive 34 mmHg mmHg 04/22/2025 8:05 EDT Heart Rate Monitored 96 bpm bpm Respiratory Rate - Anes 24 br/min br/min Systolic Blood Pressure Non-Invasive 158 mmHg mmHg Diastolic Blood Pressure Non-Invasive 102 mmHg mmHg 04/22/2025 8:02 EDT Systolic Blood Pressure Non-Invasive 93 mmHg mmHg Diastolic Blood Pressure Non-Invasive 47 mmHg mmHg 04/22/2025 8:00 EDT Heart Rate Monitored 86 bpm bpm Respiratory Rate - Anes 16 br/min br/min Systolic Blood Pressure Non-Invasive 80 mmHg mmHg Diastolic Blood Pressure Non-Invasive 54 mmHg mmHg 04/22/2025 7:55 EDT Heart Rate Monitored 70 bpm bpm Respiratory Rate - Anes 17 br/min br/min Systolic Blood Pressure Non-Invasive 81 mmHg mmHg Diastolic Blood Pressure Non-Invasive 55 mmHg mmHg 04/22/2025 7:54 EDT Systolic Blood Pressure Non-Invasive 82 mmHg mmHg Diastolic Blood Pressure Non-Invasive 40 mmHg mmHg 04/22/2025 7:52 EDT Systolic Blood Pressure Non-Invasive 81 mmHg mmHg Diastolic Blood Pressure Non-Invasive 51 mmHg mmHg 04/22/2025 7:50 EDT Heart Rate Monitored 84 bpm bpm Respiratory Rate - Anes 21 br/min br/min 04/22/2025 7:49 EDT Systolic Blood Pressure Non-Invasive 96 mmHg mmHg Diastolic Blood Pressure Non-Invasive 56 mmHg mmHg 04/22/2025 7:46 EDT Systolic Blood Pressure Non-Invasive 90 mmHg mmHg Diastolic Blood Pressure Non-Invasive 38 mmHg mmHg 04/22/2025 7:45 EDT Heart Rate Monitored 70 bpm bpm Respiratory Rate - Anes 18 br/min br/min 04/22/2025 7:44 EDT Systolic Blood Pressure Non-Invasive 111 mmHg mmHg Diastolic Blood Pressure Non-Invasive 86 mmHg mmHg 04/22/2025 7:40 EDT Heart Rate Monitored 76 bpm bpm Respiratory Rate - Anes 20 br/min br/min Systolic Blood Pressure Non-Invasive 73 mmHg mmHg Diastolic Blood Pressure Non-Invasive 52 mmHg mmHg 04/22/2025 7:38 EDT Systolic Blood Pressure Non-Invasive 87 mmHg mmHg Diastolic Blood Pressure Non-Invasive 44 mmHg mmHg 04/22/2025 7:37 EDT Systolic Blood Pressure Non-Invasive 88 mmHg mmHg Diastolic Blood Pressure Non-Invasive 76 mmHg mmHg 04/22/2025 7:35 EDT Heart Rate Monitored 65 bpm bpm Respiratory Rate - Anes 18 br/min br/min 04/22/2025 7:34 EDT Systolic Blood Pressure Non-Invasive 81 mmHg mmHg Diastolic Blood Pressure Non-Invasive 53 mmHg mmHg 04/22/2025 7:31 EDT Systolic Blood Pressure Non-Invasive 125 mmHg mmHg Diastolic Blood Pressure Non-Invasive 68 mmHg mmHg 04/22/2025 7:30 EDT Heart Rate Monitored 70 bpm bpm Respiratory Rate - Anes 0 br/min br/min 04/22/2025 5:36 EDT Temperature Temporal Artery 35.8 DegC Peripheral Pulse Rate 72 bpm Respiratory Rate 16 br/min Systolic Blood Pressure Non-Invasive 109 mmHg Diastolic Blood Pressure Non-Invasive 68 mmHg , Oxygen Therapy : Oxygen Therapy & Oxygenation Information 04/22/2025 8:42 EDT Oxygen Therapy Room air Oxygen Saturation 96 % 04/22/2025 8:34 EDT Oxygen Therapy Room air Oxygen Saturation 96 % 04/22/2025 8:20 EDT Oxygen Therapy Simple mask Oxygen Saturation 98 % Oxygen Flow Rate 6 L/min 04/22/2025 8:15 EDT Oxygen Saturation 96 % % 04/22/2025 8:10 EDT Oxygen Saturation 95 % % 04/22/2025 8:05 EDT Oxygen Saturation 89 % % 04/22/2025 8:00 EDT Oxygen Saturation 91 % % 04/22/2025 7:55 EDT Oxygen Saturation 99 % % 04/22/2025 7:50 EDT Oxygen Saturation 94 % % 04/22/2025 7:45 EDT Oxygen Saturation 99 % % 04/22/2025 7:40 EDT Oxygen Saturation 100 % % 04/22/2025 7:35 EDT Oxygen Saturation 99 % % 04/22/2025 7:30 EDT Oxygen Saturation 99 % % 04/22/2025 5:36 EDT Oxygen Therapy Room air Oxygen Saturation 98 % . Mental status: at preoperative baseline. Respiratory function: lungs are clear to auscultation, respirations are non-labored. Respiratory support: none. CV function: Normal rate. Cardiovascular support: none. Pain: Post op control see nursing medication documentation. Nausea status: see nursing documentation of medications. Postoperative hydration status: within normal limits. Digitally Signed by HELEN ARGUELLO MD on 04/22/2025 08:50 AM [facility] 04-22-2025 Note Exam Date Time Procedure Performing Provider Status 04/22/25 8:39 AM XR Fluoro Venous Access Device JODI TO MD; Auth (Verified) [id number] ORIGINAL HISTORY: Right-sided port COMPARISON: No FLUOROSCOPY TIME: 5 seconds FLUOROSCOPY IMAGES: 5 FINDINGS: There is a guidewire with right subclavian approach. IMPRESSION: Fluoroscopy provided to the surgery service. Interpreted by: Jodi To MD Preliminary Report By: Jodi To MD Electronically signed By Jodi To MD Dictated Date: 04/22/2025 8:57:34 AM Prelim Date: 04/22/2025 8:58:31 AM Sign Date: 04/22/2025 8:58:31 AM Ordering Provider: ARLENE RODRIGEZ [id number] History and physical note Date of Service 04/22/25 History and Physical Update I have examined the patient; reviewed the History and Physical and there are no changes to the History and Physical unless noted below. Digitally Signed by ARLENE RODRIGEZ MD on 04/22/2025 06:56 AM [id number] Anesthesiology Consult note Patient: CLARISSE PEGUERO Age: 44 years Sex: Female : 1980 Associated Diagnoses: None Author: IRMA IRIZARRY MD Preoperative Information Time of last food or liquid consumption: 04/22/2025 00:00:00 Anesthesia history Patient's history: negative. Family's history: negative. Health Status Allergies: Nonallergic Reactions (Selected) Severity Not Documented Ciprofloxacin- High blood pressure, insomnia, tachycardia and nausea., Allergies (1) ActiveSeverityReaction ciprofloxacinTachycardia, High Blood Pressure, N Nausea, Insomnia Current medications: (Selected) Inpatient Medications Ordered Dextrose 50% IV Push: 25 gram(s), 50 mL, IV Push, AsDirected, PRN: Low blood sugar Kefzol: 2 gram(s), 20 mL, 240 mL/hr, IV Push (INT), PREOP pharm lidocaine 1% preservative-free injectable solution: 2.5 mg, 0.25 mL, Intradermal, prep pharm Future Continuous 5FU Infusion (DoT): 4,800 mg, Portable Pump - IV (INF), Day of Tx, Day 1 EPINEPHrine 0.1 mg/mL injectable solution: 0.3 mg, 3 mL, Intramuscular INF, Once, Day 1, PRN: Other(see order comments) NS 1000 mL Bolus: 1,000 mL, IV Bolus, Once, Day 1, PRN: Other (see order comments) Zero Time Placeholder: None, Day of Tx, Day 1 Zero Time Placeholder: None, Day of Tx, Day 3 Zero Time Placeholder: None, Day of Tx, Day 4 albuterol 2.5 mg/3 mL (0.083%) inhalation solution: 2.5 mg, 3 mL, Inhalation, Once, Day 1, PRN: Other (see order comments) aprepitant (DoT): 130 mg, 18 mL, 540 mL/hr, Slow IV Push (INF), Day of Tx, Day 1 atropine (DoT): 0.4 mg, 1 mL, Subcutaneous INF, Day of Tx, Day 1 atropine (DoT): 0.4 mg, 1 mL, Subcutaneous INF, Once, Day 1, PRN: Other (see order comments) dexamethasone (DoT): 10 mg, 50 mL, 150 mL/hr, IV Piggyback, Day of Tx, Day 1 diphenhydrAMINE: 50 mg, 1 mL, IV Push (INF), Once, Day 1, PRN: Other (see order comments) famotidine: 20 mg, 2 mL, IV Push (INF), Once, Day 1, PRN: Other (see order comments) hydrocortisone 100 mg preservative-free injection: 100 mg, IV Push (INF), Once, Day 1, PRN: Other (see order comments) irinotecan (DoT): 360 mg, 18 mL, 345.33 mL/hr, IV Piggyback, Day of Tx, Day 1 leucovorin (DoT): 800 mg, 80 mL, 220 mL/hr, IV Piggyback, Day of Tx, Day 1 palonosetron (DoT): 0.25 mg, 5 mL, IV Push (INF), Day of Tx, Day 1 Prescriptions Prescribed Zofran 8 mg oral tablet: 8 mg, 1 tab(s), Oral, q8h, PRN: Nausea/Vomiting, 30 tab(s), 1 Refill(s) ZyPREXA 5 mg oral tablet: 5 mg, 1 tab(s), Oral, Daily, take at bedtime, 30 tab(s), 1 Refill(s) prochlorperazine 5 mg oral tablet: 5 mg, 1 tab(s), Oral, TID, PRN: Nausea/Vomiting, 90 tab(s), 0 Refill(s) Documented Medications Documented Claritin 10 mg oral tablet: 10 mg, 1 tab(s), Oral, qAM, 30 tab(s), 2 Refill(s) omeprazole 20 mg oral delayed release capsule: 20 mg, 1 cap(s), Oral, qAM, 0 Refill(s), Medications (3) Active Scheduled: (2) ceFAZolin syringe 2 gram(s) 20 mL, IV Push (INT), PREOP pharm lidocaine 1% (MPF) 2 mL vial pf 2.5 mg 0.25 mL, Intradermal, prep pharm Continuous: (0) PRN: (1) dextrose 50% Solution Disp syringe 50 mL 25 gram(s) 50 mL, IV Push, AsDirected Problem list: Medical Port-A-Cath in place / SNOMED CT 9196519603 / Confirmed S/P colostomy / SNOMED CT 309522026 / Confirmed Heartburn / SNOMED CT 92524170 / Confirmed Bilateral hip pain / SNOMED CT 42496347 / Confirmed History of DVT of lower extremity / SNOMED CT 3067766915 / Confirmed Hydronephrosis, right / SNOMED CT 63658326 / Confirmed Chemotherapy induced neutropenia / SNOMED CT 9852820404 / Confirmed, Active Problems (18) Acid reflux Adenocarcinoma of sigmoid colon Anemia Bilateral hip pain BMI 39.0-39.9,adult Cancer, metastatic to liver 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 Family History: Diabetes mellitus Father Grandparent High blood pressure Mother Grandparent DVT - Deep vein thrombosis Father Procedure history: EXPLORATORY LAPAROTOMY WITH DIVERTING LOOP COLOSTOMY ([id number]) on 08/28/2024 at 44 Years. Comments: 04/19/2025 11:09 EDT - MELA Glaser COLOSTOMY Drain, device ([id number]) on 08/26/2024 at 44 Years. insertion of left chest port using fluoroscopic and ultrasound guidance ([id number]) on 07/23/2024 at44 Years. Extraction of wisdom tooth ([id number]). Colonoscopy ([id number]). Biopsy of liver ([id number]). Social History: Social & Psychosocial Habits Alcohol 04/22/2025 Use: DENIES Substance Abuse 04/22/2025 Use: DENIES Tobacco 04/22/2025 Tobacco Use: Never (less than 100 in l, denies Home/Environment 04/22/2025 Living situation: Home/Independent Safe place to go: Yes Domestic Concerns Denies Lives In Single level home Current Home Treatments None Special Services and Community Resources None Spouse Name ANN-MARIE Marital Status of Patient if Patient Independent Adult: Nutrition/Health 04/22/2025 Type of diet: Regular Appetite Fair Eating Difficulties None Physical Examination Vital Signs 04/22/2025 5:36 EDT Temperature Temporal Artery 35.8 DegC Peripheral Pulse Rate 72 bpm Respiratory Rate 16 br/min Systolic Blood Pressure Non-Invasive 109 mmHg Diastolic Blood Pressure Non-Invasive 68 mmHg Vital Signs (last 24 hrs) Last Charted Temp Zpllzagi51.8 DegC (APR 22 05:36) NYR960 mmHg (APR 22 05:36) DBP68 mmHg (APR 22 05:36) Measurements from flowsheet : Measurements 04/22/2025 5:49 EDT Height 160.0 cm Admission Weight 99.8 kg [place] Body Weight 52.38 kg Type of Scale Used Bed scale Pain assessment: Pain Assessment 04/22/2025 5:49 EDT Primary Pain Intensity 0 Pain Scale Type 0-10 Pain scale . General: Alert and oriented, No acute distress. Airway: Mallampati classification: II (soft palate, fauces, uvula visible). Dentition Evaluation: Own teeth. Respiratory: Lungs are clear to auscultation. Cardiovascular: Normal rate. Heart Sounds: Normal. Review / Management Results review: No qualifying data available , Lab results 04/22/2025 6:01 EDT SN - Preop - CTm Pt Ready for OR/Proced 04/22/2025 5:55 04/22/2025 5:59 EDT Hand Left 04/22/2025 22 gauge Peripheral IV Activity: Insert new site Peripheral IV Dressing Condition: Clean, Dry, Intact Peripheral IV Dressing Activity: Applied, Transparent dressing Peripheral IV Line Status/Patency: 3ml normal saline flush Peripheral IV Line Care: Secured with tape Peripheral IV Site Condition: No complications Peripheral IV Equipment: PRN Adaptor 04/22/2025 5:55 EDT Individuals Taught Patient Learning Readiness Willing to learn Barriers to Learning None evident Teaching Method Explanation, Printed materials Preferred Spoken Language Cuban Preferred Written Language Cuban Family/Caregiver Prefer Spoken Language Cuban Family/Caregiver Prefer Written Language Cuban Surgical Site Infection Prevention SSI FAQ provided Infection Prevention Teaching Evaluation Verbalizes/Nonverbally indicates understanding Pre Procedure/Surgery Education Appropriate expectations, Bring glasses, hearing aids, contact lenscase, Date/Time of procedure/surgery, Hospital gown requirement worn to OR, Leave valuables, jewelry, wedding ring at home, Meds to take or hold, NPO, Responsible driver/refuse collector for discharge Procedure/Surgical Teaching Evaluation Verbalizes/Nonverbally indicates understanding Safety Measures Education Fall prevention, Call light use, Ambulation device use, Non-slip footwearuse Safety Teaching Evaluation Verbalizes/Nonverbally indicates understanding 04/22/2025 5:54 EDT Colostomy Left GI Ostomy Activity: Present on admission, System intact GI Ostomy Stoma Description: [place] GI Ostomy Equipment and Supplies: Pouch, drainable 04/22/2025 5:49 EDT Height 160.0 cm Admission Weight 99.8 kg [place] Body Weight 52.38 kg Type of Scale Used Bed scale Primary Pain Intensity 0 Pain Scale Type 0-10 Pain scale Respirations Unlabored Respiratory Pattern Regular Breath Sounds Auscultated Anterior only All Lobes Breath Sounds Clear Abdomen Description Non-distended Swallowing Disorder None Bowel Sounds All Quadrants Present Skin Description [place], Dry Skin Temperature Warm Neurological Symptoms Patient denies Extremity Movement Equal Characteristics of Speech Clear Level of Consciousness Alert Strength All Extremities Strong Tone All Extremities Normal Sensation All Extremities Intact Affect/Behavior Appropriate, Calm, Cooperative Orientation Oriented x 4 Assistive Device None Positioning Repositions self Activity Status ADL Awake Standard Safety ID band on, Call device within reach, Bed in low position, Wheels locked, Upper/Half-Length side-rails up, Phone within reach, personal items within reach, Safety level maintained, Non-Slip footwear 04/22/2025 5:48 EDT Urinary Elimination Voiding, no difficulties IV Present Present Violence Risk Confused No Violence Risk Irritable No Violence Risk Boisterous No Violence Risk Verbal Threats No Violence Risk Physical Threats No Violence Risk Attacking Objects No Violence Risk Predictor Score 0 Allergies Yes Colon Prep Results N/A Consent Form Signed Yes Patient Dressed In Hospital gown, No undergarments CHG Preoperative Wash/Wipe Site specific wipe Non-CHG Preoperative Shampoo Not applicable Preop Nasal Swab Povidone-Iodine CHG Skin Prep No History & Physical On Chart Yes Bowel Prep Completed No Pre-op Carbohydrate Drink No ERAS Supplement Packets Completed No Obstructive Sleep Apnea Assess Completed Yes MRSA/MSSA Protocol No Belongings At Bedside Cell phone, Coat, Purse, Shirt, Shoes, Socks, Undergarments, Wallet NPO Status Maintained Allergy Band on and Verified Yes Patient ID Band on and Verified Yes Site Verified by Patient/Family Yes Last Fluid Intake 04/22/2025 4:00 Last Food Intake 04/21/2025 20:00 Last Void 04/22/2025 5:49 04/22/2025 5:44 EDT Designated Person #1 We May Share PHI Designated Person #1 We May Share PHI Designated Person #1 Relationship Sibling Designated Person #2 We May Share PHI Ita Felder [phone] Designated Person #2 Relationship Sibling Additional Designated Person Share PHI Radha Pierce (cousin) [phone] Privacy Restrictions Requested None Status No, per patient Sensory Deficits None Sleep Apnea Snore No Sleep Apnea Tired Yes Sleep Apnea Obstruction No Sleep Apnea Pressure No Sleep Apnea BMI Yes Sleep Apnea Age No Sleep Apnea Neck No Sleep Apnea Gender No Sleep Apnea Score 2 Diagnosed With Sleep Apnea No Advanced Directives No - refuses information Infectious Disease Symptoms Patient states no symptoms Infectious Disease Recent Exposure Unsure Alcohol and Drug Use No Employee of Institutional Living No Health Care Employee No History of Exposure to TB No History of Positive Chest X-Ray for TB No History of Positive TB Skin Test No Homeless No Known Immunosuppression Yes Recent Immigrant No Resident of Institutional Living No Bloody Sputum No Fatigue No Fever No Loss of Appetite No Night Sweats No Persistent Cough > 3 Weeks No Weight Loss No Surgery Scheduled On Date/Time 04/22/2025 7:30 Arrival Time the Day of Surgery 04/22/2025 5:15 Pre-Op Patient Education No smoking after midnight, No makeup, No jewelry, Responsible Green Party, Two adults to accompany patients 0-12 years of age, Aware of surgery location, 1 bottle CHG wash with instructions given, No ordered medications, Instructed to bring home medications, Clear liquids until arrival SN - Preprocedure Comments Spoke with patient, Verbalizes/Nonverbally indicates understanding Barriers to Learning None evident Teaching Method Demonstration, Explanation, Printed materials, Teach-back, Video/Educational TV Preferred Spoken Language Cuban Preferred Written Language Cuban Teaching Evaluation Verbalizes/Nonverbally indicates understanding Safety Brochure Information Reviewed Yes [facility] Video Viewed No Patient's Current Physicians Patient's Current Physicians History of Malignant Hyperthermia No Discharge To, Anticipated Home with family care Prev Test Positive/Diagnosis w/COVID-19 No Current Quarantine/Isolated any Illness No Any Contact with Sick Animals/Birds No Traveled Anywhere in Last 30 Days No Lost Weight Unintentionally Recently No Eat Poorly Due to Decreased Appetite No Total MST Score 0 No Personal Devices, Patient Valuables None Anesthesia/Transfusions Prior anesthesia, Prior anesthesia reaction, Prior transfusion Type of Anesthesia Reaction DENIES ANY PROBLEM WIT INTUBATION Admission Note-Nursing Same Day Patient History 04/22/2025 5:43 EDT SN - Preop - CTm Pt in SDS Room 04/22/2025 5:43 04/22/2025 5:42 EDT Urine POC Negative 04/22/2025 5:36 EDT Temperature Temporal Artery 35.8 DegC Peripheral Pulse Rate 72 bpm Respiratory Rate 16 br/min Systolic Blood Pressure Non-Invasive 109 mmHg Diastolic Blood Pressure Non-Invasive 68 mmHg Heart Rhythm Regular Oxygen Therapy Room air Oxygen Saturation 98 % 04/21/2025 12:55 EDT Surgery Scheduled On Date/Time 04/22/2025 7:30 Arrival Time the Day of Surgery 04/22/2025 5:15 Pre-Op Patient Education No smoking after midnight, No makeup, No jewelry, Responsible Green Party, Two adults to accompany patients 0-12 years of age, Aware of surgery location, 1 bottle CHG wash with instructions given, No ordered medications, Instructed to bring home medications, Clear liquids until arrival (Modified) Admission Note-Nursing Patient History PreTest (Modified) . Assessment and Plan [place] [employer] Anesthesiologists (ASA) physical status classification: Class III. Anesthetic Preoperative Plan Anesthetic technique: MAC. Maintenance airway: Mask. Risks discussed: nausea, vomiting, headache, sore throat, dental injury, hypotension, allergic reaction, serious complications. Informed consent: signed by patient. Notes: ASA III: metastatic colon CA, Clarisse was seen and examined by me, Irma Irizarry MD. Her was present at the bedside. I reviewed the medical record, including consultations, lab results, radiographic results and cardiovascular studies. Anesthesia was explained in detail and questions were invited and answered. We will proceed as outlined in the plan above.. Digitally Signed by IRMA IRIZARRY MD on 04/22/2025 06:03 AM Digitally Signed by IRMA IRIZARRY MD on 04/22/2025 07:12 [id number] Progress note Patient appeared at infusion registration with complaints of leaking at implanted chest port accesssite. Elastomeric ball half filled with 5FU connected to patient and clamps engaged. Patient statesshe clamped her infusion after she noticed leaking at her port access site this morning. Small amount of clear drainage noticed at the port acces site underneath the dressing. Port flusheseasily without complications. Port does not have blood return. Patient states, I've never had blood return from my port. My doctor wrote an order to use it even though it doesn't have blood return. They said I have a fibrin sheath on it. Patient also states, I don't want to continue with the rest of my home infusion. RN flushed and de-accessed patient's port per her verbal request. RN reviewed the risks and complications of not finishing the ordered chemo medication. RN reviewed recommended care of infiltrate site of fluorouracil infusion as written in hospital policy. RN reviewed signs and symptoms of complications to watch for with an infiltrate of an inflammitant (including erythema, increased swelling, bruising, increased warmth, or drainage from port site) and instructed patient to notify her oncologists office if any of those signs or symptoms arise. Patient verbalized understanding. Dr. Lundberg's office notified of change in patient condition and education provided to patient. Patient inquired whether she should still receive a growth factor injection at [facility] on Saturday, and RN confirmed that that appointment should be kept as planned. Digitally Signed by MELA Mercado on 03/24/2025 03:39 PM [id number] Summary of episode note CLARISSE PEGUERO :1980 Visit Date:03/23/2025 Your Visit Summary Your Diagnosis Adenocarcinoma of sigmoid colon Tests Performed .Auto Differential .Estimated Glomerular Filtration Rate .Neutro Absolute CBC CMP Your Care Team Attending Physician - ROSEANN LUNDBERG MD Primary Care Physician - ABDULKADIR ROSALES PA-C Vitals Temperature (Oral) 97.2 F (36.2 C) Heart Rate 82 Blood Pressure 111/59 Height 62.99 in (160.0 cm) Weight 224.91 lb (102 kg) BMI 39.84 What to do next Instructions From Your Doctor You have received the following therapy today: Chemotherapy/Immunotherapy Call your physician if any of the following problems occur: Nausea/Vomiting Mouth Sores Diarrhea Fever Prolonged bleeding or easy bruising Pain or discomfort at the injection site 1 MONTH SUPPLY PRESCRIPTION FOR ORAL POTASSIUM SENT TO YOUR PHARMACY Scheduled Follow-Up Appointments Appointment Type When With Where Contact Information StatusINF/OSP Labwork 03/25/2025 12:00 PM EDT Infusion Therapy Confirmed INF Chemo: Infusion Pump Discontinue 03/25/2025 12:15 PM EDT Infusion Therapy Confirmed CT Abd/Pelvis w/ IV Contrast Only 04/01/2025 08:30 AM EDT Radiology [id number] Chest w/ Contrast 04/01/2025 08:45 AM EDT Radiology [id number] Confirmed INF/OSP Labwork 04/06/2025 08:45 AM EDT Infusion Therapy Confirmed HEM ONC OV Follow Up w/ Active Treatme 04/06/2025 09:30 AM EDT ROSEANN LUNDBERG MD [facility] Confirmed INF Chemo: Infusion 240 min (4 hours) 04/06/2025 10:00 AM EDT Infusion Therapy Confirmed INF/OSP Labwork 04/08/2025 12:00 PM EDT Infusion Therapy Confirmed INF Chemo: Infusion Pump Discontinue 04/08/2025 12:15 PM EDT Infusion Therapy Confirmed Medications What How Much When Why Instructions Unchanged dexAMETHasone (dexAMETHasone 4 mg oral tablet) 2 tab(s) by mouth Once a day take 2 tablets on Saturday and Saturday following chemotherapy, will use this cycle and next. Unchanged loratadine (loratadine 10 mg oral tablet) 1 tab(s) by mouth Once a day Unchanged OLANZapine (ZyPREXA 5 mg oral tablet) 1 tab(s) by mouth Every day take at bedtime Unchanged omeprazole (omeprazole 20 mg oral delayed release capsule) 1 cap by mouth Once a day Unchanged ondansetron (Zofran 8 mg oral tablet) 1 tab(s) by mouth Every 8 hours as needed for Nausea/Vomiting Adenocarcinoma of sigmoid colon Unchanged potassium chloride (potassium chloride 20 mEq oral tablet, extended release) 1 tab(s) by mouth Once a day Adenocarcinoma of sigmoid colon Take with food Unchanged prochlorperazine (prochlorperazine 5 mg oral tablet) 1 tab(s) by mouth Three (3) times a day as needed for Nausea/Vomiting Test Results .Auto Differential (03/23/2025) Neutrophil % - 81.4 % Lymphocyte % - 12.2 % Monocyte % - 5.7 % Eosinophil % - 0.5 % Basophil % - 0.2 % Lymphocyte, Absolute - 1.6 10^3/mcL Monocyte, Absolute - 0.7 10^3/mcL Eosinophil, Absolute - 0.110^3/mcL Basophil, Absolute - 0.0 10^3/mcL .Estimated Glomerular Filtration Rate (03/23/2025) Estimated Glomerular Filtration Rate - 117 ml/min/1.73sqm .Neutro Absolute (03/23/2025) Neutrophil, Absolute - 10.4 10^3/mcL CBC (03/23/2025) WBC - 12.8 10^3/mcL RBC - 3.90 10^6/mcL Hgb - 9.0 G/dL Hct - 29.6 % MCV - 75.8 fL MCH - 23.1 pg MCHC - 30.5 G/dL RDW - 22.9 % Platelet - 262 10^3/mcL MPV - 8.7 fL CMP (03/23/2025) Glucose Level - 99 mg/dL Sodium Level - 143 mEq/L Potassium Level - 3.3 mEq/L Chloride - 107 mEq/L CO2 - 27 mEq/L Electrolyte Balance - 9.0 mEq/L BUN - 10.0 mg/dL Creatinine Lvl (s) - 0.53 mg/dL BUN/Creatinine Ratio - 18.9 ratio Calcium Lvl - 9.5 mg/dL Total Protein - 7.2 G/dL Albumin Level - 3.8 G/dL Globulin - 3.4 G/dL A/G Ratio - 1.1 ratio Bili Total - 0.70 mg/dL Alk Phos - 143 U/L AST/SGOT - 17 U/L ALT/SGPT - 16 U/L Allergies ciprofloxacin Insomnia, Nausea, High Blood Pressure, Tachycardia Additional Information VACCINATE! IT SAVES LIVES! Members of the community who have not yet received the COVID-19 vaccine and would like to receive it can visit one of [facility] vaccine clinics. There are many vaccine clinic locations within the [facility]. For locations and available times, please visit [email or web address] It is important to note that some COVID mobile vaccine clinics are held outdoors and may be canceled in rainy or stormy conditions. To learn more about pediatric vaccinations (ages 5-11), we invite you to visit the [facility] webpage. [email or web address] learn more about the COVID-19 vaccine, we invite you to visit the CDC website for a list of frequently asked questions. https://www.cdc.gov/coronavirus/2019-ncov/vaccines/faq.html [facility] Patient Portal Access Instructions: Stay connected with your healthcare team and access your personal medical information anytime with the [facility] Patient Portal.If you would like a full copy of your medical records, please contact the [facility] Medical Records Department, Saturday through Saturday between 8a.m. and 4:30p.m. Please follow the directions below to access the portal: 1.Access the email account you provided upon registration to the hospital.2.Look for an invitation email from [facility].3.Open the email and access the invitation link: Accept Invitation to [facility]4.Fill in the required wetzel to create your account. To access your account, visit [email or web address] or scan the QR code above. Click the [facility] Access Patient Portal and then log in with the username and password that you created in the steps above. You can then view a summary of results, a summary of your visits, and the ability to download your summaries to your computer or send the information securely to a physician. Remember that your healthcare information is confidential, so carefully consider who you will allow to register on the [employer] Patient Portal for access to your information. You can also access the [employer] Patient Portal on the [employer] patrizia. Simply click on Health Records under Health Data and then click on the [employer] logo. HOW TO SAFELY DISPOSE OF PRESCRIPTION MEDICATIONS Please use one of the following methods to safely dispose of your unused medications. 1.Use a drug disposal kit: the drug disposal pouch allows you to safely discard your old and unuseddrugs. Ask your nurse to give you one when you are discharged.2.Visit a local take-back location: Many local pharmacies and police departments have programs that collect old and unwanted prescriptiondrugs. Call your local pharmacy or go to http://nooked.[employer]/2J6If4g to find one close to you.3.Make use of household items: Use cat litter or old coffee grounds to dispose medications if other options arenot available. Mix your drugs with these household products, seal them in an airtight container andthrow it into the garbage. Call [facility]: [phone] to be sure your drugs can be disposed of in this way. Some medicines may require a different approach.4.Never flush your medications down the toilet. IF YOU HAVE BEEN PRESCRIBED AN OPIOID FOR PAIN If you have been prescribed an opioid (such as hydrocodone, oxycodone or morphine), it is critical to understand the possible side effects and risks of opioid pain medications. Even when taken as directed, opioids can have several side effects including: Tolerance, meaning you might need to take more of a medication for the same pain relief. Nausea, vomiting and/or constipation. Sleepiness, dizziness, dry mouth, confusion, depression or itching. Physical dependence, meaning you have withdrawal symptoms when a medication is stopped, can develop within a few days. KNOW YOUR RESPONSIBILITIES It is important to know exactly how much and how often to take the opioid pain medications you are prescribed. Never take opioids in higher amounts or more often than prescribed. Do not combine opioids with alcohol or other drugs that cause drowsiness, such as benzodiazepines, also known as benzos, including diazepam and alprazolam, muscle relaxants or sleep aids. Never sell or share prescription opioids. This is illegal. Store opioids in a secure place and out of reach of others (including children, family, friends and visitors). The last page of this document has been signed and retained as a CHART COPY. Signatures Patient Education Materials Medication Leaflets My discharge plan and instructions have been reviewed and explained to me and I,CLARISSE PEGUERO understand my current condition and have read and understand these discharge instructions. I have received a written copy of the plan/instructions. If I have questions, I am aware that I should contact my d julitoor. 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 I have received a written copy of the plan/instructions. If I have questions, I am aware that I should contact my d julitoor. 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: Date/Time: Relationship to Patient: Witness Name/Signature: Date/Time: [id number] Summary of episode note CLARISSE PEGUERO :1980 Visit Date:03/09/2025 Your Visit Summary Your Diagnosis Adenocarcinoma of sigmoid colon Port-A-Cath in place S/P colostomy Tests Performed .Estimated Glomerular Filtration Rate .Morphology .Neutro Absolute CBC CMP Manual Differential Your Care Team Attending Physician - ROSEANN LUNDBERG MD Primary Care Physician - ABDULKADIR ROSALES PA-C Vitals Temperature (Oral) 98.1 F (36.7 C) Heart Rate 72 Respiratory Rate 18 Blood Pressure 119/49 Height 62.99 in (160.0 cm) Weight 226.89 lb (102.9 kg) BMI 40.2 What to do next Instructions From Your Doctor You have received the following therapy today: Chemotherapy/Immunotherapy Call your physician if any of the following problems occur: Nausea/Vomiting Mouth Sores Diarrhea Fever Prolonged bleeding or easy bruising Pain or discomfort at the injection site Scheduled Follow-Up Appointments Appointment Type When With Where Contact Information StatusINF/OSP Labwork 03/11/2025 08:45 AM EDT Infusion Therapy Confirmed INF Chemo: Infusion Pump Discontinue 15 03/11/2025 09:00 AM EDT Infusion Therapy Confirmed CT Abd/Pelvis w/ IV Contrast Only 04/01/2025 08:30 AM EDT Radiology [id number] Chest w/ Contrast 04/01/2025 08:45 AM EDT Radiology [id number] Confirmed HEM ONC OV Follow Up w/ Active Treatme 04/06/2025 09:30 AM EDT ROSEANN LUNDBERG MD [facility] Confirmed Test Results .Estimated Glomerular Filtration Rate (03/09/2025) Estimated Glomerular Filtration Rate - 115 ml/min/1.73sqm .Morphology (03/09/2025) Platelet Estimate - Adequate Large Platelets - Few1 Anisocytosis - 1+ Poik - 1+ Hypochrom - 1+ Polychrom - 1+ Microcytosis - 1+ Tear Cell - 1+ Ovalocytes - 1+ Stomatocytes - 1+ Toxic Gran - 1+ .Neutro Absolute (03/09/2025) Neutrophil, Absolute - 4.8 10^3/mcL CBC (03/09/2025) WBC - 6.6 10^3/mcL RBC - 4.03 10^6/mcL Hgb - 9.4 G/dL Hct - 30.8 % MCV - 76.6 fL MCH - 23.3 pg MCHC- 30.4 G/dL RDW - 22.6 % Platelet - 298 10^3/mcL MPV - 8.4 fL CMP (03/09/2025) Glucose Level - 108 mg/dL Sodium Level - 140 mEq/L Potassium Level - 3.7 mEq/L Chloride - 107 mEq/LCO2 - 26 mEq/L Electrolyte Balance - 7.0 mEq/L BUN - 9.0 mg/dL Creatinine Lvl (s) - 0.56 mg/dL BUN/Creatinine Ratio - 16.1 ratio Calcium Lvl - 9.7 mg/dL Total Protein - 7.0 G/dL Albumin Level - 3.7 G/dL Globulin - 3.3 G/dL A/G Ratio - 1.1 ratio Bili Total - 0.60 mg/dL Alk Phos - 117 U/L AST/SGOT - 18 U/L ALT/SGPT - 19 U/L Manual Differential (03/09/2025) Neutrophil %, Manual - 81.0 % Lymphocyte %, Manual - 17.0 % Monocyte %, Manual - 1.0 % Eosinophil %, Manual - 1.0 % Basophil %, Manual - 0.0 % Nucleated RBC - 1.0 /100 WBC Neutrophil, Abs Manual - 5.3 10^3/mcL Lymphocyte, Abs Manual - 1.1 10^3/mcL Monocyte, Abs Manual - 0.1 10^3/mcL Eosinophil, AbsManual - 0.1 10^3/mcL Basophil, Abs Manual - 0.0 10^3/mcL Additional Information VACCINATE! IT SAVES LIVES! Members of the community who have not yet received the COVID-19 vaccine and would like to receive it can visit one of [facility] vaccine clinics. There are many vaccine clinic locations within the [facility]. For locations and available times, please visit [email or web address] It is important to note that some COVID mobile vaccine clinics are held outdoors and may be canceled in rainy or stormy conditions. To learn more about pediatric vaccinations (ages 5-11), we invite you to visit the [facility] webpage. [email or web address] learn more about the COVID-19 vaccine, we invite you to visit the CDC website for a list of frequently asked questions. https://www.cdc.gov/coronavirus/2019-ncov/vaccines/faq.html [facility] Patient Portal Access Instructions: Stay connected with your healthcare team and access your personal medical information anytime with the [facility] Patient Portal.If you would like a full copy of your medical records, please contact the [facility] Medical Records Department, Saturday through Saturday between 8a.m. and 4:30p.m. Please follow the directions below to access the portal: 1.Access the email account you provided upon [facility] the [facility] hospital.2.Look for an invitation email from [facility].3.Open the email and access the invitation link: Accept Invitation to [facility]4.Fill in the required wetzel to create your account. Sign into www.Friendly Score with your username and password that you created in the above steps to stay up to date. You can then view a summary of results, a summary of your visits, and the ability to download your summaries to your computer or send the information securely to a physician. Remember that your healthcare information is confidential, so carefully consider who you will allow to register on the [facility] Patient Portal for access to your information. You can also access the [facility] Patient Portal on the [employer]. Simply click on Health Records under [employer] and then click on the [employer] logo. HOW TO SAFELY DISPOSE OF PRESCRIPTION MEDICATIONS Please use one of the following methods to safely dispose of your unused medications. 1.Use a drug disposal kit: the drug disposal pouch allows you to safely discard your old and unuseddrugs. Ask your nurse to give you one when you are discharged.2.Visit a local take-back location: Many local pharmacies and police departments have programs that collect old and unwanted prescriptiondrugs. Call your local pharmacy or go to http://[email or web address].[employer]/9G1Na7z to find one close to you.3.Make use of household items: Use cat litter or old coffee grounds to dispose medications if other options arenot available. Mix your drugs with these household products, seal them in an airtight container andthrow it into the garbage. Call [facility]: [phone] to be sure your drugs can be disposed of in this way. Some medicines may require a different approach.4.Never flush your medications down the toilet. IF YOU HAVE BEEN PRESCRIBED AN OPIOID FOR PAIN If you have been prescribed an opioid (such as hydrocodone, oxycodone or morphine), it is critical to understand the possible side effects and risks of opioid pain medications. Even when taken as directed, opioids can have several side effects including: Tolerance, meaning you might need to take more of a medication for the same pain relief. Nausea, vomiting and/or constipation. Sleepiness, dizziness, dry mouth, confusion, depression or itching. Physical dependence, meaning you have withdrawal symptoms when a medication is stopped, can develop within a few days. KNOW YOUR RESPONSIBILITIES It is important to know exactly how much and how often to take the opioid pain medications you are prescribed. Never take opioids in higher amounts or more often than prescribed. Do not combine opioids with alcohol or other drugs that cause drowsiness, such as benzodiazepines, also known as benzos, including diazepam and alprazolam, muscle relaxants or sleep aids. Never sell or share prescription opioids. This is illegal. Store opioids in a secure place and out of reach of others (including children, family, friends and visitors). The last page of this document has been signed and retained as a CHART COPY. Signatures Patient Education Materials Medication Leaflets My discharge plan and instructions have been reviewed and explained to me and ISUDHIR ELLA J understand my current condition and have read and understand these discharge instructions. I have received a written copy of the plan/instructions. If I have questions, I am aware that I should contact my david kumar. 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: Date/Time: Relationship to Patient: Witness Name/Signature: [id number] Summary of episode note CLARISSE PEGUERO :1980 Visit Date:02/25/2025 Signatures Patient Education Materials Medication Leaflets My discharge plan and instructions have been reviewed and explained to me and I,CLARISSE PEGUERO understand my current condition and have read and understand these discharge instructions. I have received a written copy of the plan/instructions. If I have questions, I am aware that I should contact my d stacy. 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: Date/Time: Relationship to Patient: Witness Name/Signature: Date/Time: [id number] Summary of episode note CLARISSE PEGUERO :1980 Visit Date:02/23/2025 Your Visit Summary Your Diagnosis Adenocarcinoma of sigmoid colon Port-A-Cath in place S/P colostomy Tests Performed .Auto Differential .Estimated Glomerular Filtration Rate .Neutro Absolute CBC CMP Your Care Team Attending Physician - ROSEANN LUNDBERG MD Primary Care Physician - ABDULKADIR ROSALES PA-C Vitals Temperature (Oral) 98.1 F (36.7 C) Heart Rate 78 Respiratory Rate 20 Blood Pressure 120/63 Height 62.99 in (160.0 cm) Weight 224.69 lb (101.9 kg) BMI 39.8 What to do next Instructions From Your Doctor You have received the following therapy today: Chemotherapy/Immunotherapy Call your physician if any of the following problems occur: Nausea/Vomiting Mouth Sores Diarrhea Fever Prolonged bleeding or easy bruising Pain or discomfort at the injection site Scheduled Follow-Up Appointments Appointment Type When With Where Contact Information StatusINF/OSP Labwork 02/25/2025 08:45 AM EDT Infusion Therapy Confirmed INF Chemo: Infusion Pump Discontinue 02/25/2025 09:00 AM EDT Infusion Therapy Confirmed INF/OSP Labwork 03/09/2025 08:45 AM EDT Infusion Therapy Confirmed HEM ONC OV Follow Up w/PATRIZIA Active Treatm 03/09/2025 09:30 AM EDT FRANCES MCKEON FLEXO OPERATOR-SVP RESEARCH AND STRATEGIC ANALYSIS [facility] Confirmed INF Chemo: Infusion 240 min (4 hours) 03/09/2025 10:00 AM EDT Infusion Therapy Confirmed INF/OSP Labwork 03/11/2025 08:45 AM EDT Infusion Therapy Confirmed INF Chemo: Infusion Pump Discontinue 03/11/2025 09:00 AM EDT Infusion Therapy Confirmed CT Abd/Pelvis w/ IV Contrast Only 04/01/2025 08:30 AM EDT Radiology [phone] Chest w/ Contrast 04/01/2025 08:45 AM EDT Radiology [id number] Confirmed HEM ONC OV Follow Up w/MD Active Treatme 04/06/2025 09:30 AM EDT ROSEANN LUNDBERG MD [facility] Confirmed Medications What How Much When Why Instructions Unchanged loratadine (loratadine 10 mg oral tablet) 1 tab(s) by mouth Once a day Unchanged omeprazole (omeprazole 20 mg oral delayed release capsule) 1 cap by mouth Once a day Unchanged ondansetron (Zofran 8 mg oral tablet) 1 tab(s) by mouth Every 8 hours as needed for Nausea/Vomiting Adenocarcinoma of sigmoid colon Unchanged prochlorperazine (prochlorperazine 5 mg oral tablet) 1 tab(s) by mouth Three (3) times a day okay to alternate zofran and prochlorperazine. Test Results .Auto Differential (02/23/2025) Neutrophil % - 83.3 % Lymphocyte % - 10.5 % Monocyte % - 5.4 % Eosinophil % - 0.5 % Basophil % - 0.3 % Lymphocyte, Absolute - 1.2 10^3/mcL Monocyte, Absolute - 0.6 10^3/mcL Eosinophil, Absolute - 0.110^3/mcL Basophil, Absolute - 0.0 10^3/mcL .Estimated Glomerular Filtration Rate (02/23/2025) Estimated Glomerular Filtration Rate - 117 ml/min/1.73sqm .Neutro Absolute (02/23/2025) Neutrophil, Absolute - 9.5 10^3/mcL CBC (02/23/2025) WBC - 11.4 10^3/mcL RBC - 4.07 10^6/mcL Hgb - 9.7 G/dL Hct - 31.6 % MCV - 77.6 fL MCH - 23.7 pg MCHC - 30.5 G/dL RDW - 23.0 % Platelet - 281 10^3/mcL MPV - 8.8 fL CMP (02/23/2025) Glucose Level - 127 mg/dL Sodium Level - 142 mEq/L Potassium Level - 3.7 mEq/L Chloride - 109 mEq/LCO2 - 25 mEq/L Electrolyte Balance - 8.0 mEq/L BUN - 8.0 mg/dL Creatinine Lvl (s) - 0.52 mg/dL BUN/Creatinine Ratio - 15.4 ratio Calcium Lvl - 9.3 mg/dL Total Protein - 7.1 G/dL Albumin Level - 3.9 G/dL Globulin - 3.2 G/dL A/G Ratio - 1.2 ratio Bili Total - 0.50 mg/dL Alk Phos - 146 U/L AST/SGOT - 16 U/L ALT/SGPT - 13 U/L Allergies ciprofloxacin Insomnia, Nausea, High Blood Pressure, Tachycardia Additional Information VACCINATE! IT SAVES LIVES! Members of the community who have not yet received the COVID-19 vaccine and would like to receive it can visit one of [facility] vaccine clinics. There are many vaccine clinic locations within the [facility]. For locations and available times, please visit [email or web address]/. It is important to note that some COVID mobile vaccine clinics are held outdoors and may be canceled in rainy or stormy conditions. To learn more about pediatric vaccinations (ages 5-11), we invite you to visit the [facility] webpage. [email or web address] [email or web address] learn more about the COVID-19 vaccine, we invite you to visit the CDC website for a list of frequently asked questions. https://www.cdc.gov/coronavirus/2019-ncov/vaccines/faq.html [facility] [employer] Patient Portal Access Instructions: Stay connected with your healthcare team and access your personal medical information anytime with the [facility] Patient Portal.If you would like a full copy of your medical records, please contact the [facility] Medical Records Department, Saturday through Saturday between 8a.m. and 4:30p.m. Please follow the directions below to access the portal: 1.Access the email account you provided upon registration to the [facility].2.Look for an invitation email from [facility].3.Open the email and access the invitation link: Accept [facility] to [facility].Fill in the required wetzel to create your account. Sign into www.Friendly Score with your username and password that you created in the above steps to stay up to date. You can then view a summary of results, a summary of your visits, and the ability to download your summaries to your computer or send the information securely to a physician. Remember that your healthcare information is confidential, so carefully consider who you will allow to register on the [facility] Patient Portal for access to your information. You can also access the [facility] Patient Portal on the [employer]. Simply click on Health Records under [employer] and then click on the [employer] logo. HOW TO SAFELY DISPOSE OF PRESCRIPTION MEDICATIONS Please use one of the following methods to safely dispose of your unused medications. 1.Use a drug disposal kit: the drug disposal pouch allows you to safely discard your old and unuseddrugs. Ask your nurse to give you one when you are discharged.2.Visit a local take-back location: Many local pharmacies and police departments have programs that collect old and unwanted prescriptiondrugs. Call your local pharmacy or go to http://bit.[employer]/5R2Gh5d to find one close to you.3.Make use of household items: Use cat litter or old coffee grounds to dispose medications if other options arenot available. Mix your drugs with these household products, seal them in an airtight container andthrow it into the garbage. Call [facility]: [phone] to be sure your drugs can be disposed of in this way. Some medicines may require a different approach.4.Never flush your medications down the toilet. IF YOU HAVE BEEN PRESCRIBED AN OPIOID FOR PAIN If you have been prescribed an opioid (such as hydrocodone, oxycodone or morphine), it is critical to understand the possible side effects and risks of opioid pain medications. Even when taken as directed, opioids can have several side effects including: Tolerance, meaning you might need to take more of a medication for the same pain relief. Nausea, vomiting and/or constipation. Sleepiness, dizziness, dry mouth, confusion, depression or itching. Physical dependence, meaning you have withdrawal symptoms when a medication is stopped, can develop within a few days. KNOW YOUR RESPONSIBILITIES It is important to know exactly how much and how often to take the opioid pain medications you are prescribed. Never take opioids in higher amounts or more often than prescribed. Do not combine opioids with alcohol or other drugs that cause drowsiness, such as benzodiazepines, also known as benzos, including diazepam and alprazolam, muscle relaxants or sleep aids. Never sell or share prescription opioids. This is illegal. Store opioids in a secure place and out of reach of others (including children, family, friends and visitors). The last page of this document has been signed and retained as a CHART COPY. Signatures Patient Education Materials Medication Leaflets My discharge plan and instructions have been reviewed and explained to me and ISUDHIR ELLA J understand my current condition and have read and understand these discharge instructions. I have received a written copy of the plan/instructions. If I have questions, I am aware that I should contact my d octor. 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: Date/Time: Relationship to Patient: Witness Name/Signature: Date/Time: [id number] Summary of episode note CLARISSE PEGUERO :1980 Visit Date:02/11/2025 Your Visit Summary Your Diagnosis Adenocarcinoma of sigmoid colon Your Care Team Attending Physician - ROSEANN LUNDBERG MD Primary Care Physician - ABDULKADIR ROSALES PA-C Vitals Temperature (Oral) 98.4 F (36.9 C) Heart Rate 81 Blood Pressure 111/44 What to do next Instructions From Your Doctor You have received the following therapy today: Pump d/c Call your physician if any of the following problems occur: _ Scheduled Follow-Up Appointments Appointment Type When With Where Contact Information StatusINF/OSP Labwork 02/23/2025 08:45 AM EDT Infusion Therapy Confirmed INF Chemo: Infusion 240 min (4 hours) 02/23/2025 09:00 AM EDT Infusion Therapy Confirmed INF/OSP Labwork 02/25/2025 08:45 AM EDT Infusion Therapy Confirmed INF Chemo: Infusion Pump Discontinue 15 02/25/2025 09:00 AM EDT Infusion Therapy Confirmed INF/OSP Labwork 03/09/2025 08:45 AM EDT Infusion Therapy Confirmed HEM ONC OV Follow Up w/PATRIZIA Active Treatm 03/09/2025 09:30 AM EDT FRANCES MCKEON APRN-YUSRA [facility] Confirmed INF Chemo: Infusion 240 min (4 hours) 03/09/2025 10:00 AM EDT Infusion Therapy Confirmed INF/OSP Labwork 03/11/2025 08:45 AM EDT Infusion Therapy Confirmed INF Chemo: Infusion Pump Discontinue 15 03/11/2025 09:00 AM EDT Infusion Therapy Confirmed CT Abd/Pelvis w/ IV Contrast Only 04/01/2025 08:30 AM EDT Radiology [id number] Chest w/ Contrast 04/01/2025 08:45 AM EDT Radiology [phone] Confirmed HEM ONC OV Follow Up w/ Active Treatme 04/06/2025 09:30 AM EDT ROSEANN LUNDBERG MD [facility] Confirmed Medications What How Much When Why Instructions Unchanged loratadine (loratadine 10 mg oral tablet) 1 tab(s) by mouth Once a day Unchanged omeprazole (omeprazole 20 mg oral delayed release capsule) 1 cap by mouth Once a day Unchanged ondansetron (Zofran 8 mg oral tablet) 1 tab(s) by mouth Every 8 hours as needed for Nausea/Vomiting Adenocarcinoma of sigmoid colon Unchanged prochlorperazine (prochlorperazine 5 mg oral tablet) 1 tab(s) by mouth Three (3) times a day okay to alternate zofran and prochlorperazine. Allergies ciprofloxacin Insomnia, Nausea, High Blood Pressure, Tachycardia Additional Information VACCINATE! IT SAVES LIVES! Members of the community who have not yet received the COVID-19 vaccine and would like to receive it can visit one of [facility] vaccine clinics. There are many vaccine clinic locations within the [facility]. For locations and available times, please visit [email or web address]/. It is important to note that some COVID mobile vaccine clinics are held outdoors and may be canceled in rainy or stormy conditions. To learn more about pediatric vaccinations (ages 5-11), we invite you to visit the [facility] webpage. [email or web address]/[email or web address] [email or web address] learn more about the COVID-19 vaccine, we invite you to visit the CDC website for a list of frequently asked questions. https://www.cdc.gov/coronavirus/2019-ncov/vaccines/faq.html [facility] Patient Portal Access Instructions: Stay connected with your healthcare team and access your personal medical information anytime with the [facility] Patient Portal.If you would like a full copy of your medical records, please contact the [facility] Medical Records Department, Saturday through Saturday between 8a.m. and 4:30p.m. Please follow the directions below to access the portal: 1.Access the email account you provided upon registration to the [facility].2.Look for an invitation email from [facility].3.Open the email and access the invitation link: Accept Invitation to [facility]4.Fill in the required wetzel to create your account. Sign into www.Friendly Score with your username and password that you created in the above steps to stay up to date. You can then view a summary of results, a summary of your visits, and the ability to download your summaries to your computer or send the information securely to a physician. Remember that your healthcare information is confidential, so carefully consider who you will allow to register on the [employer] Patient Portal for access to your information. You can also access the [employer] Patient Portal on the [employer]. Simply click on Health Records under [employer] and then click on the [employer] logo. HOW TO SAFELY DISPOSE OF PRESCRIPTION MEDICATIONS Please use one of the following methods to safely dispose of your unused medications. 1.Use a drug disposal kit: the drug disposal pouch allows you to safely discard your old and unuseddrugs. Ask your nurse to give you one when you are discharged.2.Visit a local take-back location: Many local pharmacies and police departments have programs that collect old and unwanted prescriptiondrugs. Call your local pharmacy or go to http://nooked.[employer]/6G7Wq3m to find one close to you.3.Make use of household items: Use cat litter or old coffee grounds to dispose medications if other options arenot available. Mix your drugs with these household products, seal them in an airtight container andthrow it into the garbage. Call [facility]: [phone] to be sure your drugs can be disposed of in this way. Some medicines may require a different approach.4.Never flush your medications down the toilet. IF YOU HAVE BEEN PRESCRIBED AN OPIOID FOR PAIN If you have been prescribed an opioid (such as hydrocodone, oxycodone or morphine), it is critical to understand the possible side effects and risks of opioid pain medications. Even when taken as directed, opioids can have several side effects including: Tolerance, meaning you might need to take more of a medication for the same pain relief. Nausea, vomiting and/or constipation. Sleepiness, dizziness, dry mouth, confusion, depression or itching. Physical dependence, meaning you have withdrawal symptoms when a medication is stopped, can develop within a few days. KNOW YOUR RESPONSIBILITIES It is important to know exactly how much and how often to take the opioid pain medications you are prescribed. Never take opioids in higher amounts or more often than prescribed. Do not combine opioids with alcohol or other drugs that cause drowsiness, such as benzodiazepines, also known as benzos, including diazepam and alprazolam, muscle relaxants or sleep aids. Never sell or share prescription opioids. This is illegal. Store opioids in a secure place and out of reach of others (including children, family, friends and visitors). The last page of this document has been signed and retained as a CHART COPY. Signatures Patient Education Materials Medication Leaflets My discharge plan and instructions have been reviewed and explained to me and I,CLARISSE PEGUERO understand my current condition and have read and understand these discharge instructions. I have received a written copy of the plan/instructions. If I have questions, I am aware that I should contact my d octor. 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 Your Care Team Attending Physician - ROSEANN LUNDBERG MD Primary Care Physician - ABDULKADIR ROSALES PA-C Vitals Temperature (Oral) 97.9 F (36.6 C) Heart Rate 74 Blood Pressure 101/50 Weight 224.03 lb (101.6 kg) What to do next Instructions From Your Doctor You have received the following therapy today: Chemotherapy/Immunotherapy Call your physician if any of the following problems occur: Nausea/Vomiting Mouth Sores Diarrhea Fever Prolonged bleeding or easy bruising Pain or discomfort at the injection site Scheduled Follow-Up Appointments Appointment Type When With Where Contact Information StatusINF/OSP Labwork 02/11/2025 08:45 AM EDT Infusion Therapy Confirmed INF Chemo: Infusion Pump Discontinue 15 02/11/2025 09:00 AM EDT Infusion Therapy Confirmed INF/OSP Labwork 02/23/2025 08:45 AM EDT Infusion Therapy Confirmed INF Chemo: Infusion 240 min (4 hours) 02/23/2025 09:00 AM EDT Infusion Therapy Confirmed INF/OSP Labwork 02/25/2025 08:45 AM EDT Infusion Therapy Confirmed INF Chemo: Infusion Pump Discontinue 15 02/25/2025 09:00 AM EDT Infusion Therapy Confirmed INF/OSP Labwork 03/09/2025 08:45 AM EDT Infusion Therapy Confirmed HEM ONC OV Follow Up w/PATRIZIA Active Treatm 03/09/2025 09:30 AM EDT FRANCES MCKEON APRN-SVP RESEARCH AND STRATEGIC ANALYSIS [facility] Confirmed INF Chemo: Infusion 240 min (4 hours) 03/09/2025 10:00 AM EDT Infusion Therapy Confirmed INF/OSP Labwork 03/11/2025 08:45 AM EDT Infusion Therapy Confirmed INF Chemo: Infusion Pump Discontinue 15 03/11/2025 09:00 AM EDT Infusion Therapy Confirmed CT Abd/Pelvis w/ IV Contrast Only 04/01/2025 08:30 AM EDT Radiology [phone] Chest w/ Contrast 04/01/2025 09:30 AM EDT Radiology [phone] Confirmed HEM ONC OV Follow Up w/ Active Treatme 04/06/2025 09:30 AM EDT [facility] Confirmed Medications What How Much When Why Instructions Unchanged loratadine (loratadine 10 mg oral tablet) 1 tab(s) by mouth Once a day Unchanged omeprazole (omeprazole 20 mg oral delayed release capsule) 1 cap by mouth Once a day Unchanged ondansetron (Zofran 8 mg oral tablet) 1 tab(s) by mouth Every 8 hours as needed for Nausea/Vomiting Adenocarcinoma of sigmoid colon Unchanged prochlorperazine (prochlorperazine 5 mg oral tablet) 1 tab(s) by mouth Three (3) times a day okay to alternate zofran and prochlorperazine. Test Results .Estimated Glomerular Filtration Rate (02/09/2025) Estimated Glomerular Filtration Rate - 118 ml/min/1.73sqm .Neutro Absolute (02/09/2025) Neutrophil, Absolute - 8.2 10^3/mcL CBC (02/09/2025) WBC - 10.4 10^3/mcL RBC - 4.02 10^6/mcL Hgb - 9.6 G/dL Hct - 31.4 % MCV - 78.2 fL MCH - 23.8 pg MCHC - 30.4 G/dL RDW - 23.2 % Platelet - 306 10^3/mcL MPV - 8.7 fL CMP (02/09/2025) Glucose Level - 97 mg/dL Sodium Level - 142 mEq/L Potassium Level - 3.8 mEq/L Chloride - 106 mEq/L CO2 - 26 mEq/L Electrolyte Balance - 10.0 mEq/L BUN - 6.0 mg/dL Creatinine Lvl (s) - 0.51 mg/dL BUN/Creatinine Ratio - 11.8 ratio Calcium Lvl - 9.1 mg/dL Total Protein - 7.2 G/dL Albumin Level - 3.8 G/dL Globulin - 3.4 G/dL A/G Ratio - 1.1 ratio Bili Total - 0.60 mg/dL Alk Phos - 134 U/L AST/SGOT - 14 U/L ALT/SGPT - 15 U/L Allergies ciprofloxacin Insomnia, Nausea, High Blood Pressure, Tachycardia Additional Information VACCINATE! IT SAVES LIVES! Members of the community who have not yet received the COVID-19 vaccine and would like to receive it can visit one of [facility] vaccine clinics. There are many vaccine clinic locations within the [facility]. For locations and available times, please visit [email or web address]/. It is important to note that some COVID mobile vaccine clinics are held outdoors and may be canceled in rainy or stormy conditions. To learn more about pediatric vaccinations (ages 5-11), we invite you to visit the [facility] webpage. [email or web address]/[email or web address] [email or web address] learn more about the COVID-19 vaccine, we invite you to visit the CDC website for a list of frequently asked questions. https://www.cdc.gov/coronavirus/2019-ncov/vaccines/faq.html [facility] [employer] Patient Portal Access Instructions: Stay connected with your healthcare team and access your personal medical information anytime with the [facility] Patient Portal.If you would like a full copy of your medical records, please contact the [facility] Medical Records Department, Saturday through Saturday between 8a.m. and 4:30p.m. Please follow the directions below to access the portal: 1.Access the email account you provided upon registration to the [facility].2.Look for an invitation email from [facility].3.Open the email and access the invitation link: Accept Invitation to [facility]4.Fill in the required wetzel to create your account. Sign into www.Friendly Score with your username and password that you created in the above steps to stay up to date. You can then view a summary of results, a summary of your visits, and the ability to download your summaries to your computer or send the information securely to a physician. Remember that your healthcare information is confidential, so carefully consider who you will allow to register on the [facility] Patient Portal for access to your information. You can also access the [facility] Patient Portal on the [employer]zia. Simply click on Health Records under [employer] and then click on the [facility] logo. HOW TO SAFELY DISPOSE OF PRESCRIPTION MEDICATIONS Please use one of the following methods to safely dispose of your unused medications. 1.Use a drug disposal kit: the drug disposal pouch allows you to safely discard your old and unuseddrugs. Ask your nurse to give you one when you are discharged.2.Visit a local take-back location: Many local pharmacies and police departments have programs that collect old and unwanted prescriptiondrugs. Call your local pharmacy or go to http://bit.[employer] Tal[employer] Track/3F2Hy1v to find one close to you.3.Make use of household items: Use cat litter or old coffee grounds to dispose medications if other options arenot available. Mix your drugs with these household products, seal them in an airtight container andthrow it into the garbage. Call [facility]: [phone] to be sure your drugs can be disposed of in this way. Some medicines may require a different approach.4.Never flush your medications down the toilet. IF YOU HAVE BEEN PRESCRIBED AN OPIOID FOR PAIN If you have been prescribed an opioid (such as hydrocodone, oxycodone or morphine), it is critical to understand the possible side effects and risks of opioid pain medications. Even when taken as directed, opioids can have several side effects including: Tolerance, meaning you might need to take more of a medication for the same pain relief. Nausea, vomiting and/or constipation. Sleepiness, dizziness, dry mouth, confusion, depression or itching. Physical dependence, meaning you have withdrawal symptoms when a medication is stopped, can develop within a few days. KNOW YOUR RESPONSIBILITIES It is important to know exactly how much and how often to take the opioid pain medications you are prescribed. Never take opioids in higher amounts or more often than prescribed. Do not combine opioids with alcohol or other drugs that cause drowsiness, such as benzodiazepines, also known as benzos, including diazepam and alprazolam, muscle relaxants or sleep aids. Never sell or share prescription opioids. This is illegal. Store opioids in a secure place and out of reach of others (including children, family, friends and visitors). The last page of this document has been signed and retained as a CHART COPY. Signatures Patient Education Materials Medication Leaflets My discharge plan and instructions have been reviewed and explained to me and I,CLARISSE PEGUERO understand my current condition and have read and understand these discharge instructions. I have received a written copy of the plan/instructions. If I have questions, I am aware that I should contact my d octor. 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: Date/Time: Relationship to Patient: Witness Name/Signature: [id number] Summary of episode note CLARISSE PEGUERO :1980 Visit Date:01/28/2025 Signatures Patient Education Materials Medication Leaflets My discharge plan and instructions have been reviewed and explained to me and I,CLARISSE PEGUERO understand my current condition and have read and understand these discharge instructions. I have received a written copy of the plan/instructions. If I have questions, I am aware that I should contact my d octor. 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 Your Care Team Attending Physician - ROSEANN LUNDBERG MD Primary Care Physician - ABDULKADIR ROSALES PA-C Vitals Temperature (Oral) 98.1 F (36.7 C) Heart Rate 72 Respiratory Rate 18 Blood Pressure 108/60 Height 62.99 in (160.0 cm) Weight 220.94 lb (100.2 kg) BMI 39.14 What to do next Instructions From Your Doctor You have received the following therapy today: Chemotherapy/Immunotherapy Call your physician if any of the following problems occur: Nausea/Vomiting Mouth Sores Diarrhea Fever Prolonged bleeding or easy bruising Pain or discomfort at the injection site Scheduled Follow-Up Appointments Appointment Type When With Where Contact Information StatusINF/OSP Labwork 01/28/2025 08:45 AM EDT Infusion Therapy Confirmed INF Chemo: Infusion Pump Discontinue 15 01/28/2025 09:00 AM EDT Infusion Therapy Confirmed GS OV Check Up 02/02/2025 10:00 AM EDT ARLENE RODRIGEZ MD [facility] Confirmed INF/OSP Labwork 02/09/2025 08:45 AM EDT Infusion Therapy Confirmed HEM ONC OV Follow Up w/FLEXO OPERATOR Active Treat 02/09/2025 09:30 AM EDT FRANCES MCKEON [facility] Confirmed INF Chemo: Infusion 240 min (4 hours) 02/09/2025 10:00 AM EDT Infusion Therapy Confirmed INF/OSP Labwork 02/11/2025 08:45 AM EDT Infusion Therapy Confirmed INF Chemo: Infusion Pump Discontinue 15 02/11/2025 09:00 AM EDT Infusion Therapy Confirmed INF/OSP Labwork 02/23/2025 08:45 AM EDT Infusion Therapy Confirmed INF Chemo: Infusion 240 min (4 hours) 02/23/2025 09:00 AM EDT Infusion Therapy Confirmed INF/OSP Labwork 02/25/2025 08:45 AM EDT Infusion Therapy Confirmed INF Chemo: Infusion Pump Discontinue 15 02/25/2025 09:00 AM EDT Infusion Therapy Confirmed INF/OSP Labwork 03/09/2025 08:45 AM EDT Infusion Therapy Confirmed HEM ONC OV Follow Up w/FLEXO OPERATOR Active Treat 03/09/2025 09:30 AM EDT FRANCES MCKEON [facility] Confirmed INF Chemo: Infusion 240 min (4 hours) 03/09/2025 10:00 AM EDT Infusion Therapy Confirmed INF/OSP Labwork 03/11/2025 08:45 AM EDT Infusion Therapy Confirmed INF Chemo: Infusion Pump Discontinue 15 03/11/2025 09:00 AM EDT Infusion Therapy Confirmed CT Abd/Pelvis w/ IV Contrast Only 04/01/2025 08:30 AM EDT Radiology [phone] Chest w/ Contrast 04/01/2025 09:30 AM EDT Radiology [id number] Confirmed HEM ONC OV Follow Up w/ Active Treatme 04/06/2025 09:30 AM EDT ROSEANN LUNDBERG MD [facility] Confirmed Medications What How Much When Why Instructions Unchanged loratadine (loratadine 10 mg oral tablet) 1 tab(s) by mouth Once a day Unchanged omeprazole (omeprazole 20 mg oral delayed release capsule) 1 cap by mouth Once a day Unchanged ondansetron (Zofran 8 mg oral tablet) 1 tab(s) by mouth Every 8 hours as needed for Nausea/Vomiting Adenocarcinoma of sigmoid colon Unchanged prochlorperazine (prochlorperazine 5 mg oral tablet) 1 tab(s) by mouth Three (3) times a day okay to alternate zofran and prochlorperazine. Test Results .Estimated Glomerular Filtration Rate (01/26/2025) Estimated Glomerular Filtration Rate - 117 ml/min/1.73sqm .Neutro Absolute (01/26/2025) Neutrophil, Absolute - 10.1 10^3/mcL CBC (01/26/2025) WBC - 12.5 10^3/mcL RBC - 4.05 10^6/mcL Hgb - 9.6 G/dL Hct - 31.5 % MCV - 77.7 fL MCH - 23.7 pg MCHC - 30.4 G/dL RDW - 23.3 % Platelet - 266 10^3/mcL MPV - 8.7 fL CMP (01/26/2025) Glucose Level - 111 mg/dL Sodium Level - 139 mEq/L Potassium Level - 3.6 mEq/L Chloride - 109 mEq/LCO2 - 25 mEq/L Electrolyte Balance - 5.0 mEq/L BUN - 11.0 mg/dL Creatinine Lvl (s) - 0.52 mg/dL BUN/Creatinine Ratio - 21.2 ratio Calcium Lvl - 9.2 mg/dL Total Protein - 7.1 G/dL Albumin Level - 4.0 G/dL Globulin - 3.1 G/dL A/G Ratio - 1.3 ratio Bili Total - 0.70 mg/dL Alk Phos - 149 U/L AST/SGOT -18 U/L ALT/SGPT - 14 U/L Allergies ciprofloxacin Insomnia, Nausea, High Blood Pressure, Tachycardia Additional Information VACCINATE! IT SAVES LIVES! Members of the community who have not yet received the COVID-19 vaccine and would like to receive it can visit one of [facility] vaccine clinics. There are many vaccine clinic locations within the State. For locations and available times, please visit [email or web address]/. It is important to note that some COVID mobile vaccine clinics are held outdoors and may be canceled in rainy or stormy conditions. To learn more about pediatric vaccinations (ages 5-11), we invite you to visit the [facility] webpage. [email or web address] [email or web address] learn more about the COVID-19 vaccine, we invite you to visit the CDC website for a list of frequently asked questions. https://www.cdc.gov/coronavirus/2019-ncov/vaccines/faq.html [employer] Patient Portal Access Instructions: Stay connected with your healthcare team and access your personal medical information anytime with the [facility] Patient Portal.If you would like a full copy of your medical records, please contact the [facility] Medical Records Department, Saturday through Saturday between 8a.m. and 4:30p.m. Please follow the directions below to access the portal: 1.Access the email account you provided upon registration to the hospital.2.Look for an invitation email from [facility].3.Open the email and access the invitation link: Accept Invitation to [facility]4.Fill in the required wetzel to create your account. Sign into www.Friendly Score with your username and password that you created in the above steps to stay up to date. You can then view a summary of results, a summary of your visits, and the ability to download your summaries to your computer or send the information securely to a physician. Remember that your healthcare information is confidential, so carefully consider who you will allow to register on the [facility] Patient Portal for access to your information. You can also access the [employer] Patient Portal on the [employer]. Simply click on Health Records under [employer] and then click on the [employer] logo. HOW TO SAFELY DISPOSE OF PRESCRIPTION MEDICATIONS Please use one of the following methods to safely dispose of your unused medications. 1.Use a drug disposal kit: the drug disposal pouch allows you to safely discard your old and unuseddrugs. Ask your nurse to give you one when you are discharged.2.Visit a local take-back location: Many local pharmacies and police departments have programs that collect old and unwanted prescriptiondrugs. Call your local pharmacy or go to http://nooked.[employer]/6Q9Tq9v to find one close to you.3.Make use of household items: Use cat litter or old coffee grounds to dispose medications if other options arenot available. Mix your drugs with these household products, seal them in an airtight container andthrow it into the garbage. Call [facility]: [phone] to be sure your drugs can be disposed of in this way. Some medicines may require a different approach.4.Never flush your medications down the toilet. IF YOU HAVE BEEN PRESCRIBED AN OPIOID FOR PAIN If you have been prescribed an opioid (such as hydrocodone, oxycodone or morphine), it is critical to understand the possible side effects and risks of opioid pain medications. Even when taken as directed, opioids can have several side effects including: Tolerance, meaning you might need to take more of a medication for the same pain relief. Nausea, vomiting and/or constipation. Sleepiness, dizziness, dry mouth, confusion, depression or itching. Physical dependence, meaning you have withdrawal symptoms when a medication is stopped, can develop within a few days. KNOW YOUR RESPONSIBILITIES It is important to know exactly how much and how often to take the opioid pain medications you are prescribed. Never take opioids in higher amounts or more often than prescribed. Do not combine opioids with alcohol or other drugs that cause drowsiness, such as benzodiazepines, also known as benzos, including diazepam and alprazolam, muscle relaxants or sleep aids. Never sell or share prescription opioids. This is illegal. Store opioids in a secure place and out of reach of others (including children, family, friends and visitors). The last page of this document has been signed and retained as a CHART COPY. Signatures Patient Education Materials Medication Leaflets My discharge plan and instructions have been reviewed and explained to me and ISUDHIR ELLA J understand my current condition and have read and understand these discharge instructions. I have received a written copy of the plan/instructions. If I have questions, I am aware that I should contact my d octor. 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: Date/Time: Relationship to Patient: Witness Name/Signature: Date/Time[id number] Summary of episode note CLARISSE PEGUERO :1980 Visit Date:01/14/2025 Signatures Patient Education Materials Medication Leaflets My discharge plan and instructions have been reviewed and explained to me and I,CLARISSE PEGUERO understand my current condition and have read and understand these discharge instructions. I have received a written copy of the plan/instructions. If I have questions, I am aware that I should contact my d octor. 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 Your Care Team Attending Physician - ROSEANN LUNDBERG MD Primary Care Physician - ABDULKADIR ROSALES-C Vitals Temperature (Oral) 98.2 F (36.8 C) Heart Rate 76 Respiratory Rate 20 Blood Pressure 112/63 Height 62.99 in (160.0 cm) Weight 220.94 lb (100.2 kg) BMI 39.14 What to do next Instructions From Your Doctor You have received the following therapy today: Chemotherapy/Immunotherapy Call your physician if any of the following problems occur: Nausea/Vomiting Mouth Sores Diarrhea Fever Prolonged bleeding or easy bruising Pain or discomfort at the injection site Scheduled Follow-Up Appointments Appointment Type When With Where Contact Information StatusINF/OSP Labwork 01/14/2025 01:00 PM EDT Infusion Therapy Confirmed INF Chemo: Infusion Pump Discontinue 15 01/14/2025 01:15 PM EDT Infusion Therapy Confirmed INF/OSP Labwork 01/26/2025 08:45 AM EDT Infusion Therapy Confirmed INF Chemo: Infusion 240 min (4 hours) 01/26/2025 09:00 AM EDT Infusion Therapy Confirmed GS OV Check Up 02/02/2025 10:00 AM EDT ARLENE RODRIGEZ MD [facility] Confirmed INF/OSP Labwork 02/09/2025 08:45 AM EDT Infusion Therapy Confirmed HEM ONC OV Follow Up w/FLEXO OPERATOR Active Treat 02/09/2025 09:30 AM EDT FRANCES MCKEON [facility] Confirmed INF Chemo: Infusion 240 min (4 hours) 02/09/2025 10:00 AM EDT Infusion Therapy Confirmed INF/OSP Labwork 02/23/2025 08:45 AM EDT Infusion Therapy Confirmed INF Chemo: Infusion 240 min (4 hours) 02/23/2025 09:00 AM EDT Infusion Therapy Confirmed INF/OSP Labwork 03/09/2025 08:45 AM EDT Infusion Therapy Confirmed HEM ONC OV Follow Up w/FLEXO OPERATOR Active Treat 03/09/2025 09:30 AM EDT FRANCES MCKEON [facility] Confirmed INF Chemo: Infusion 240 min (4 hours) 03/09/2025 10:00 AM EDT Infusion Therapy Confirmed CT Abd/Pelvis w/ IV Contrast Only 04/01/2025 08:30 AM EDT Radiology [phone] Chest w/ Contrast 04/01/2025 09:30 AM EDT Radiology [phone] Confirmed HEM ONC OV Follow Up w/ Active Treatme 04/06/2025 09:30 AM EDT ROSEANN LUNDBERG MD [facility] Confirmed Medications What How Much When Why Instructions Unchanged loratadine (loratadine 10 mg oral tablet) 1 tab(s) by mouth Once a day Unchanged omeprazole (omeprazole 20 mg oral delayed release capsule) 1 cap by mouth Once a day Unchanged ondansetron (Zofran 8 mg oral tablet) 1 tab(s) by mouth Every 8 hours as needed for Nausea/Vomiting Adenocarcinoma of sigmoid colon Unchanged prochlorperazine (prochlorperazine 5 mg oral tablet) 1 tab(s) by mouth Three (3) times a day okay to alternate zofran and prochlorperazine. Test Results .Estimated Glomerular Filtration Rate (01/12/2025) Estimated Glomerular Filtration Rate - 116 ml/min/1.73sqm .Neutro Absolute (01/12/2025) Neutrophil, Absolute - 10.0 10^3/mcL CBC (01/12/2025) WBC - 12.4 10^3/mcL RBC - 3.96 10^6/mcL Hgb - 9.1 G/dL Hct - 30.3 % MCV - 76.4 fL MCH - 23.1 pg MCHC - 30.2 G/dL RDW - 23.0 % Platelet - 262 10^3/mcL MPV - 8.7 fL CEA (01/12/2025) CEA - 21.0 ng/mL CMP (01/12/2025) Glucose Level - 100 mg/dL Sodium Level - 143 mEq/L Potassium Level - 3.7 mEq/L Chloride - 106 mEq/LCO2 - 26 mEq/L Electrolyte Balance - 11.0 mEq/L BUN - 11.0 mg/dL Creatinine Lvl (s) - 0.54 mg/dL BUN/Creatinine Ratio - 20.4 ratio Calcium Lvl - 8.5 mg/dL Total Protein - 6.8 G/dL Albumin Level - 3.7G/dL Globulin - 3.1 G/dL A/G Ratio - 1.2 ratio Bili Total - 0.60 mg/dL Alk Phos - 135 U/L AST/SGOT - <8 U/L ALT/SGPT - 16 U/L Allergies ciprofloxacin Insomnia, Nausea, High Blood Pressure, Tachycardia Additional Information VACCINATE! IT SAVES LIVES! Members of the community who have not yet received the COVID-19 vaccine and would like to receive it can visit one of [facility] vaccine clinics. There are many vaccine clinic locations within the [facility]. For locations and available times, please visit www.[email or web address].[email or web address]/. It is important to note that some COVID mobile vaccine clinics are held outdoors and may be canceled in rainy or stormy conditions. To learn more about pediatric vaccinations (ages 5-11), we invite you to visit the [employer] webpage. [email or web address] [email or web address] learn more about the COVID-19 vaccine, we invite you to visit the CDC website for a list of frequently asked questions. https://www.cdc.gov/coronavirus/2019-ncov/vaccines/faq.html [employer] Patient Portal Access Instructions: Stay connected with your healthcare team and access your personal medical information anytime with the [facility] Patient Portal.If you would like a full copy of your medical records, please contact the [facility] Medical Records Department, Saturday through Saturday between 8a.m. and 4:30p.m. Please follow the directions below to access the portal: 1.Access the email account you provided upon registration to the hospital.2.Look for an invitation email from [facility].3.Open the email and access the invitation link: Accept Invitation to [facility]4.Fill in the required wetzel to create your account. Sign into www.Friendly Score with your username and password that you created in the above steps to stay up to date. You can then view a summary of results, a summary of your visits, and the ability to download your summaries to your computer or send the information securely to a physician. Remember that your healthcare information is confidential, so carefully consider who you will allow to register on the [facility] Patient Portal for access to your information. You can also access the [employer] Patient Portal on the [employer]. Simply click on Health Records under [employer] and then click on the [employer] logo. HOW TO SAFELY DISPOSE OF PRESCRIPTION MEDICATIONS Please use one of the following methods to safely dispose of your unused medications. 1.Use a drug disposal kit: the drug disposal pouch allows you to safely discard your old and unuseddrugs. Ask your nurse to give you one when you are discharged.2.Visit a local take-back location: Many local pharmacies and police departments have programs that collect old and unwanted prescriptiondrugs. Call your local pharmacy or go to http://nooked.[employer]/7M7Qf3c to find one close to you.3.Make use of household items: Use cat litter or old coffee grounds to dispose medications if other options arenot available. Mix your drugs with these household products, seal them in an airtight container andthrow it into the garbage. Call [facility]: [phone] to be sure your drugs can be disposed of in this way. Some medicines may require a different approach.4.Never flush your medications down the toilet. IF YOU HAVE BEEN PRESCRIBED AN OPIOID FOR PAIN If you have been prescribed an opioid (such as hydrocodone, oxycodone or morphine), it is critical to understand the possible side effects and risks of opioid pain medications. Even when taken as directed, opioids can have several side effects including: Tolerance, meaning you might need to take more of a medication for the same pain relief. Nausea, vomiting and/or constipation. Sleepiness, dizziness, dry mouth, confusion, depression or itching. Physical dependence, meaning you have withdrawal symptoms when a medication is stopped, can develop within a few days. KNOW YOUR RESPONSIBILITIES It is important to know exactly how much and how often to take the opioid pain medications you are prescribed. Never take opioids in higher amounts or more often than prescribed. Do not combine opioids with alcohol or other drugs that cause drowsiness, such as benzodiazepines, also known as benzos, including diazepam and alprazolam, muscle relaxants or sleep aids. Never sell or share prescription opioids. This is illegal. Store opioids in a secure place and out of reach of others (including children, family, friends and visitors). The last page of this document has been signed and retained as a CHART COPY. Signatures Patient Education Materials Medication Leaflets My discharge plan and instructions have been reviewed and explained to me and SUDHIR Harrell ELLA J understand my current condition and have read and understand these discharge instructions. I have received a written copy of the plan/instructions. If I have questions, I am aware that I should contact my d octor. 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: Date/Time: Relationship to Patient: Witness Name/Signature: [id number] Evaluation + Plan noteExtracted from: Title:IR Pre-Procedure H&P Author:JAVY OLIVER PA-C Date:01/08/25 IR PREPROCEDURE H&P UPDATE IF A HISTORY AND PHYSICAL EXAMINATION HAS BEEN COMPLETED PRIOR TO ADMISSION TO THE HOSPITAL, AN UPDATED EXAMINATION MUST BE COMPLETED AND DOCUMENTED WITHIN 24 HOURS AFTER ADMISSION OR REGISTRATION BUT BEFORE A SURGICAL PROCEDURE. I have examined the patient, reviewed the H&P, and there are no changes unless noted below: Per chart review, port placed 07/23/[address] Rodrigez, general surgery. CT thorax completed 01/07/2025 shows malposition of the catheter - discussed with Dr. Shah, will proceed with contrast injection, but ultimately patient will need to return to Dr. Rodrigez for port revision. The most recent H&P/Office Note was performed on 01/05/2025 and can be found in the [facility] ([facility]). Deanna Oliver PA-C Interventional Radiology Pager: [phone] IR dept: x [phone] Available on [employer] Appointments Appointment Date:01/12/2025 09:15:00 AM Scheduled Provider: Location:INF Appointment Type:INF/OSP Labwork Appointment Date:01/12/2025 09:45:00 AM Scheduled Provider:ROSEANN LUNDBERG MD Location:HEM ONC Appointment Type:HEM ONC OV Follow Up w/ Active Treatme Appointment Date:01/12/2025 10:30:00 AM Scheduled Provider: Location:INF Appointment Type:INF Chemo: Infusion 240 min (4 hours) Appointment Date:01/14/2025 01:00:00 PM Scheduled Provider: Location:INF Appointment Type:INF/OSP Labwork Appointment Date:01/14/2025 01:15:00 PM Scheduled Provider: Location:INF Appointment Type:INF Chemo: Infusion Pump Discontinue 15 Appointment Date:02/02/2025 10:00:00 AM Scheduled Provider:ARLENE RODRIGEZ MD Location:Gen Surg [facility] Appointment Type:GS OV Check Up Future Scheduled Tests Laboratory* Carcinoembryonic Antigen 01/12/25 * Complete Blood Count 01/12/25 * Complete Metabolic Panel 01/12/25 * MISC Lab Send Out (Non-Blood Specimens) 07/30/24 Radiology* CT Thorax w/ Contrast 06/17/24 * XR Hip 3-4 Views Bilateral 08/13/24 * CT Abdomen and Pelvis w/ contrast 06/17/24 * US Renal 04/13/24 [facility] 07-11-2025 Note* MELA Meier Juan J: SIGN, AUTHOR, PERFORM Event Display: IR Procedure Record Authored Date: [id number] IR Procedure Record Summary Primary Physician: CASIE WEINER PA-C Finalized Date/Time: 01/08/25 09:48:33 Pt. Name: SUDHIRCLARISSE/Sex: 1980 Female Med Rec #: [id number] Physician: Financial #: [id number] Pt. Type: O Room/Bed: / Admit/Disch: 01/08/25 07:42:00 - Institution: Allergies identified in patient's electronic medical record at time of printing on 01/08/25 Entry 1 Substance ciprofloxacin Reaction Type Side Effect Last Modified By: MELA Hamm 09/16/24 12:44:55 Case Attendance- IR Entry 1 Entry 2 Entry 3 Case Attendee CASIE WEINER PA-C, Brandon L Fierstos, Megan R Substitute Crossing Guard Role Performed Primary Surgeon Scrub Technologist Circulating Technologist Details Time In 01/08/25 09:29:00 07/11/25 09:22:00 01/08/25 09:22:00 Time Out 01/08/25 09:53:00 01/08/25 09:53:00 01/08/25 09:53:00 Procedure/Preference IR Port Check W/Guide SN IR Port Check W/Guide SN IR Port Check W/Guide SN Card Last Modified By: MELA Meier RN Corey Snider, RN Corey 01/08/25 09:46:49 01/08/25 09:46:49 01/08/25 09:46:49 Entry 4 Case Attendee MELA Meier Role Performed Procedure Nurse Details Time In 01/08/25 09:22:00 Time Out 01/08/25 09:53:00 Procedure/Preference IR Port Check W/Guide SN Card Last Modified By: MELA Meier 01/08/25 09:46:49 Radiology Procedures- IR Entry 1 Procedure/Preference IR Port Check W/Guide SN Actual Procedure IR Port Check w/ Guide Card Primary Procedure Yes Primary Surgeon CASIE WEINER PA-C Anesthesia/Sedation Topical Type Additional Procedure Times Start 01/08/25 09:29:00 Stop 01/08/25 09:46:00 Specialty Service SN Radiology Procedure EBL 1 mL Last Modified By: MELA Meier 01/08/25 09:46:53 Radiology Procedure Details - IR Entry 1 Radiology Sedation Case Times Sedation Total Time 0 Radiology - Fluid/Drainage Radiology Contrast Contrast Used? Yes Dose 15 mL Medication CONTRAST ISOVUE 300/30ML 10/CA 126549 Radiology Flouroscopy Fluoroscopy Used? Yes Fluoro Dose (mGy) 41 Fluoro Time 1.3 Radiology Local Local Used? No Radiology Procedure Site Site/Location left chest Site Condition No complications Technologist Notes port site check Last Modified By: MELA Meier 01/08/25 09:47:46 General Case Data - IR Entry 1 Case Information Room IR 16 Case Level IR Level 1 Wound Class None Specialty SN Radiology Procedure ASA Class None Diagnosis Preop Diagnosis requires more than 1 Postop Same As Preop Yes dose of cath zackary with each port access Postop Diagnosis requires more than 1 dose of cath zackary with each port access Last Modified By: MELA Meier 01/08/25 09:30:32 Procedure Case Times- IR Entry 1 Patient In Procedure Patient In OR 01/08/25 09:22:00 Patient Out of OR 01/08/25 09:53:00 Procedure Start/Stop Procedure Start Time 01/08/25 09:29:00 Procedure Stop Time 01/08/25 09:46:00 Last Modified By: MELA Meier 01/08/25 09:46:49 Immediate Post OP Note - IR Entry 1 Immediate Post Yes Procedure Note displayed for Physician to review Closure Technique Closure Technique Other than Primary Last Modified By: MELA Meier 01/08/25 09:29:17 Immediate Post OP Note - IR Signed By: CASIE WEINER PA-C 01/08/25 09:47 Allergy Information- IR Entry 1 Allergies Reviewed? Yes Allergies Reviewed Patient With Last Modified By: MELA Meier 01/08/25 09:25:26 Radiology Protocols/Time Out- IR Entry 1 Preprocedure Clinician Verifies Correct patient ID When Clinically Confirmation of correct using name & date Indicated side(s) and site(s), or MRN, Accurate Correct diagnostic and procedure, complete radiology tests Informed Consent, H & P available, Required update immediately blood products, prior to procedure, if implants, devices applicable, Clinical and/or special team introduction equipment available complete OR/Procedure Room/Bedside Time 01/08/25 09:29:00 Clinician Verifies Correct patient identity including EMR & records using name and date or medical record number, Accurate procedure consent form, Correct patient position, Necessary equipment is available, Anticipated non-routine events with surgical team (case duration, estimated blood loss, patient specific concerns)., Amaya patient factors for recovery and management identified with surgical team. When Applicable Confirmation correct Team Members CASIE WEINER PA-C, side and site marked, Present for Time Out [place], Relevant images and Fierstos Aliza R Rad results are properly Tech, MELA Meier labeled and appropriately displayed, Alcohol based prep dry, Double verification of sterility indicators complete Instrument Sterility Team Members CASIE WEINER PA-C, Verifying Sterility [place] Procedure IR Port Check W/Guide SN Last Modified By: MELA Meier 01/08/25 09:29:55 Skin Prep- IR Entry 1 Procedure IR Port Check W/Guide SN Skin Prep Prep Area Chest Side Left By [place] Prep Agents Chloraprep Hair Removal Method N/A Last Modified By: MELA Meier 01/08/25 09:28:53 Patient Positioning- IR Entry 1 Procedure IR Port Check W/Guide SN Body Position OP Supine Feet Uncrossed? Yes Pressure Points Yes Checked Last Modified By: MELA Meier 01/08/25 09:29:05 Radiology Procedure Plan - IR Entry 1 Radiology - Nursing Care Plan Outcome Statement The patient Outcome Statement The patient receives demonstrates knowledge Cont. appropriate of the expected medication(s), safely responses to the administered during the operative/invasive perioperative/invasive procedure., The period., The patient is patient's value system, free from signs and lifestyle, ethnicity, symptoms of injury and culture are caused by extraneous considered, respected, objects (equipment, and incorporated in the instrumentation, perioperative plan of sponges, or sharps). care., The patient is free from signs and symptoms of infection., The patient is free from signs and symptoms of injury related to positioning. Radiology - Action Plan Outcomes Met? 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 MELA Meier Completing Procedure Plan Last Modified By: MELA Meier 01/08/25 09:29:29 Case Comments <None> Finalized By: MELA Meier Document Signatures Signed By: MELA Meier 01/08/25 09:48 [facility] 07-11-2025 Hospital Discharge instructions Patient Education 01/08/2025 09:36:32 Radiology- Procedure/Biopsy 04/10/2024 (CUSTOM) [facility] Radiology Procedure/Biopsy Discharge Instructions Interventional Radiology [facility] [address] [place] [address] Today, you had a Port site check . This procedure/biopsy was done to help your doctor diagnose and treat the signs and symptoms you have been experiencing. These instructions should be followed after your procedure to reduce the chance of experiencing complications. Please follow the instructions below to reduce the chance of experiencing complications. Diet: Resume your normal diet as tolerated. Drink extra fluids. Activity: Rest for the remainder of the day. You may resume your normal activity tomorrow. You may bathe/shower after 24 hours. Do not soak or submerge site (including swimming or hot tubs) until a scab forms. No heavy lifting, pushing, or straining. Dressing: Check the site for bleeding. Apply pressure to the site if bleeding excessively and call your physician. Change the band aid as needed; it can be removed after 24 hours. Keep the site dry at all times until a scab forms over the site. Pain Control: The puncture site may be sore for 1 to 2 days following the procedure. Eyrq-owm-dusmaeh pain medication should be used for pain or discomfort. Please check with the physician who ordered this procedure for you for their specific recommendations. If your pain is not relieved or becomes more severe, notify the physician who sent you for this procedure. If you were sedated for this procedure: Avoid alcoholic beverages for 24 hours after your procedure. Do not drive or operate heavy machinery for 24 hours after your procedure. Do not make any legal decisions for 24 hours after your procedure. Medication: Please resume on . When to seek medical help: Lightheadedness, dizziness, or fainting. Severe pain or swelling. Severe nausea or vomiting. Infection: fever greater than 101 degrees, chills, redness, warmth, swelling, bleeding, or pus frompuncture site. If you experience any of these issues during the first 24 hours, please follow the instruction below: 8:00 am- 5:00 pm call [phone] After 24 hours, contact the physician who ordered this procedure for you. Obtaining test results: Please make an appointment with your doctor to obtain your test results. They are usually availablewithin 4 to 7 business days. Do not assume everything is normal if you have not heard from your doctor or medical facility. It is important for you to follow up on all of your test results. Special Instructions: Follow Up Care 12/29/2024 13:48:39 With:Follow up with primary care provider Address:Unknown When: Unknown [facility] 07-11-2025 Procedure note IR Brief Post Procedure Note Preprocedure Dx: Port requiring multiple doses of cath-zackary for blood draws, unable to aspirate otherwise Post Procedure Dx: Same Procedure: Image guided port check with contrast injection Anesthesia: Local EBL: Minimal Complications: None Status: Unchanged Findings: 1. Successful port check revealing presence of fibrin sheath at the end of the port catheter terminating in the brachiocephalic vein. Plan: 1. Port able to be used for chemotherapy, may not be able to aspirate for blood draws due to the presence of the fibrin sheath. 2. Messaged Dr. Rodrigez surgeon who placed port on 07/23/24 regarding presence of fibrin sheath Full report to follow. Orders in [employer]. Casie Weiner PA-C Interventional Radiology Pager: [phone] IR dept: x [phone] Available on Connect Messenger Digitally Signed by CASIE WEINER PA-C on 01/08/2025 10:14 AM [id number]* Exam Date Time Procedure Performing Provider Status 01/08/25 9:51 AM IR Port Check w/Guide IRMA SHAH DO; Auth (Verified) [id number] ORIGINAL PROCEDURE: 1. Port venogram with fluoroscopy CLINICAL INFORMATION: Port requiring cath zackary multiple doses to aspirate VEGETABLE PICKER: Casie Weiner PA-C FLUOROSCOPY: 1.3 minutes AIR KERMA DOSE: 41 mGy ANESTHESIA: None CONTRAST: 15 mL Isovue 300 MATERIALS: Harris needle The procedure, risks, and alternatives, were discussed and all questions were answered. Written informed consent obtained. Accompanying paperwork was verified for accuracy. Directed history and physical exam performed prior to the procedure. Medication reconciliation performed by nursing personnel. Procedure was performed using a cap, sterile gloves, a large sterile sheet, hand hygiene and 2% chlorhexidine for cutaneous antisepsis. The patient was positioned supine on the table and prepped and draped in usual sterile fashion. A critical pause was performed with assisting personnel just prior to the procedure with the patient's identity confirmed using 2 identifiers, confirming site and side. Resource Director radiograph demonstrates port with the tip appearing to terminate within the brachiocephalic vein. The port was accessed with a Harris needle. The inability to aspirate blood is confirmed. Flushing of the port is performed without resistance. Contrast injection demonstrates normal filling of the port reservoir and catheter. There is no evidence of extravasation at the port pocket. During injection, there is reflux of contrast near the catheter tip before the contrast advances into the brachiocephalic vein and further. In addition, there is no expected jetstream of contrast at the tip during injection. Findings are compatible with the presence of a fibrin sheath. The port was flushed with saline and then 1000 units of heparin. A sterile dressing was applied. COMPLICATIONS: None. EBL: None. PATIENT CONDITION: Stable, unchanged. IMPRESSION: 1. Confirmation of the inability to aspirate blood from the chest port. 2. Port tip terminating within the brachiocephalic vein. 3. Contrast injection through the port demonstrates findings compatible with the presence of a fibrin sheath causing inability to aspirate. This procedure was performed by Casie Weiner PA-C Interpreted by: Irma Shah DO Preliminary Report By: Casie Weiner Electronically signed By Irma Shah DO Dictated Date: 01/08/2025 11:32:00 AM Prelim Date: 01/08/2025 11:37:47 AM Sign Date: 01/08/2025 12:33:30 PM Ordering Provider: [facility]07-11-2025 Note IR Procedure Record Summary Primary Physician: CASIE WEINER PA-C Finalized Date/Time: 01/08/25 09:48:33 Pt. Name: CLARISSE PEGUERO /Sex: 1980 Female Med Rec #: [id number] Physician: Financial #: [id number] Pt. Type: O Room/Bed: / Admit/Disch: 01/08/25 07:42:00 - Institution: Allergies identified in patient's electronic medical record at time of printing on 01/08/25 Entry 1 Substance ciprofloxacin Reaction Type Side Effect Last Modified By: MELA Hamm 09/16/24 12:44:55 Case Attendance- IR Entry 1 Entry 2 Entry 3 Case Attendee CASIE WEINER PA-C, Brandon L Fierstos, Megan R Substitute Crossing Guard Role Performed Primary Surgeon Scrub Technologist Circulating Technologist Details Time In 01/08/25 09:29:00 01/08/25 09:22:00 01/08/25 09:22:00 Time Out 01/08/25 09:53:00 01/08/25 09:53:00 01/08/25 09:53:00 Procedure/Preference IR Port Check W/Guide SN IR Port Check W/Guide SN IR Port Check W/Guide SN Card Last Modified By: MELA Meier RN Corey Snider, RN Corey 01/08/25 09:46:49 01/08/25 09:46:49 01/08/25 09:46:49 Entry 4 Case Attendee MELA Meier Role Performed Procedure Nurse Details Time In 01/08/25 09:22:00 Time Out 01/08/25 09:53:00 Procedure/Preference IR Port Check W/Guide SN Card Last Modified By: MELA Meier 01/08/25 09:46:49 Radiology Procedures- IR Entry 1 Procedure/Preference IR Port Check W/Guide SN Actual Procedure IR Port Check w/ Guide Card Primary Procedure Yes Primary Surgeon CASIE WEINER PA-C Anesthesia/Sedation Topical Type Additional Procedure Times Start 01/08/25 09:29:00 Stop 01/08/25 09:46:00 Specialty Service SN Radiology Procedure EBL 1 mL Last Modified By: MELA Meier 01/08/25 09:46:53 Radiology Procedure Details - IR Entry 1 Radiology Sedation Case Times Sedation Total Time 0 Radiology - Fluid/Drainage Radiology Contrast Contrast Used? Yes Dose 15 mL Medication CONTRAST ISOVUE 300/30ML 10/CA 867178 Radiology Flouroscopy Fluoroscopy Used? Yes Fluoro Dose (mGy) 41 Fluoro Time 1.3 Radiology Local Local Used? No Radiology Procedure Site Site/Location left chest Site Condition No complications Technologist Notes port site check Last Modified By: MELA Meier 01/08/25 09:47:46 General Case Data - IR Entry 1 Case Information Room AH IR 16 Case Level IR Level 1 Wound Class None Specialty SN Radiology Procedure ASA Class None Diagnosis Preop Diagnosis requires more than 1 Postop Same As Preop Yes dose of cath zackary with each port access Postop Diagnosis requires more than 1 dose of cath zackary with each port access Last Modified By: MELA Meier 01/08/25 09:30:32 Procedure Case Times- IR Entry 1 Patient In Procedure Patient In OR 01/08/25 09:22:00 Patient Out of OR 01/08/25 09:53:00 Procedure Start/Stop Procedure Start Time 01/08/25 09:29:00 Procedure Stop Time 01/08/25 09:46:00 Last Modified By: MELA Meier 01/08/25 09:46:49 Immediate Post OP Note - IR Entry 1 Immediate Post Yes Procedure Note displayed for Physician to review Closure Technique Closure Technique Other than Primary Last Modified By: MELA Meier 01/08/25 09:29:17 Immediate Post OP Note - IR Signed By: CASIE WEINER PA-C 01/08/25 09:47 Allergy Information- IR Entry 1 Allergies Reviewed? Yes Allergies Reviewed Patient With Last Modified By: MELA Meier 01/08/25 09:25:26 Radiology Protocols/Time Out- IR Entry 1 Preprocedure Clinician Verifies Correct patient ID When Clinically Confirmation of correct using name & date Indicated side(s) and site(s), or MRN, Accurate Correct diagnostic and procedure, complete radiology tests Informed Consent, H & P available, Required update immediately blood products, prior to procedure, if implants, devices applicable, Clinical and/or special team introduction equipment available complete OR/Procedure Room/Bedside Time 01/08/25 09:29:00 Clinician Verifies Correct patient identity including EMR & records using name and date or medical record number, Accurate procedure consent form, Correct patient position, Necessary equipment is available, Anticipated non-routine events with surgical team (case duration, estimated blood loss, patient specific concerns)., [place]aya patient factors for recovery and management identified with surgical team. When Applicable Confirmation correct Team Members CASIE WEINER PA-C, side and site marked, Present for Time Out [place], Relevant images and Aliza Garcia Rad results are properly Tech, MELA Meier labeled and appropriately displayed, Alcohol based prep dry, Double verification of sterility indicators complete Instrument Sterility Team Members CASIE WEINER PA-C, Verifying Sterility [place] Procedure IR Port Check W/Guide SN Last Modified By: MELA Meier 01/08/25 09:29:55 Skin Prep- IR Entry 1 Procedure IR Port Check W/Guide SN Skin Prep Prep Area Chest Side Left By [place] Prep Agents Chloraprep Hair Removal Method N/A Last Modified By: MELA Meier 01/08/25 09:28:53 Patient Positioning- IR Entry 1 Procedure IR Port Check W/Guide SN Body Position OP Supine Feet Uncrossed? Yes Pressure Points Yes Checked Last Modified By: MELA Meier 01/08/25 09:29:05 Radiology Procedure Plan - IR Entry 1 Radiology - Nursing Care Plan Outcome Statement The patient Outcome Statement The patient receives demonstrates knowledge Cont. appropriate of the expected medication(s), safely responses to the administered during the operative/invasive perioperative/invasive procedure., The period., The patient is patient's value system, free from signs and lifestyle, ethnicity, symptoms of injury and culture are caused by extraneous considered, respected, objects (equipment, and incorporated in the instrumentation, perioperative plan of sponges, or sharps). care., The patient is free from signs and symptoms of infection., The patient is free from signs and symptoms of injury related to positioning. Radiology - Action Plan Outcomes Met? 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 MELA Meier Completing Procedure Plan Last Modified By: MELA Meier 01/08/25 09:29:29 Case Comments Finalized By: MELA Meier Document Signatures Signed By: MELA Meier 01/08/25 09:48 [place] [id number] Summary of episode note Discharge Instructions Thank you for allowing [facility] to assist you with your healthcare needs. The following is importantdischarge information regarding your hospital visit. Your Care Team ABDULKADIR ROSALES PA-C What to do next Scheduled Follow-Up Appointments Appointment Type When With Where Contact Information StatusINF/OSP Labwork 01/12/2025 09:15 AM EDT Infusion Therapy Confirmed HEM ONC OV Follow Up w/ Active Treatme 01/12/2025 10:00 AM ANAMT ROSEANN LUNDBERG MD [facility] Confirmed INF Chemo: Infusion 240 min (4 hours) 01/12/2025 10:30 AM EDT Infusion Therapy Confirmed INF/OSP Labwork 01/14/2025 01:00 PM EDT Infusion Therapy Confirmed INF Chemo: Infusion Pump Discontinue 15 01/14/2025 01:15 PM EDT Infusion Therapy Confirmed GS OV Check Up 02/02/2025 10:00 AM EDT ARLENE RODRIGEZ MD [facility] Confirmed Follow Up Appointments Follow Up with Follow up with primary care provider The Following Activity and Diet Have Been Ordered for You No qualifying data available. No qualifying data available. The Following Equipment Has Been Ordered for You No qualifying data available. The Following Treatments Have Been Ordered for You Discharge Labs No qualifying data available. Discharge Radiology No qualifying data available. Other Therapies No qualifying data available. Post Acute Orders No qualifying data available. Someone Will Contact You Regarding These Home Health Referrals No home referrals have been ordered for you. No one will call you. Allergies ciprofloxacin Insomnia, Nausea, High Blood Pressure, Tachycardia Medications Please ask your primary doctor or pharmacist before taking any other medication not listed, including over the counter drugs, herbal medications, vitamins and or supplements as they may interact withyour home medications. What How Much When Why Instructions Last Dose Unchanged loratadine (loratadine 10 mg oral tablet) 1 tab(s) by mouth Once a day Unchanged omeprazole (omeprazole 20 mg oral delayed release capsule) 1 cap by mouth Once a day Unchanged ondansetron (Zofran 8 mg oral tablet) 1 tab(s) by mouth Every 8 hours as needed for Nausea/Vomiting Adenocarcinoma of sigmoid colon Unchanged prochlorperazine (prochlorperazine 5 mg oral tablet) 1 tab(s) by mouth Three (3) times a day okay to alternate zofran and prochlorperazine. Please take this list to your next doctor s visit. Bring all medications you take, including over the counter medications, herbals and other supplements with you to your doctor s visit. Patients and families are reminded to discard old lists and to update any records with all medication providers or retail pharmacies. Education Materials [facility] Radiology Procedure/Biopsy Discharge Instructions Interventional Radiology [facility] Imaging Services [address] [place] [address] Today, you had a Port site check . This procedure/biopsy was done to help your doctor diagnose and treat the signs and symptoms you have been experiencing. These instructions should be followed after your procedure to reduce the chance of experiencing complications. Please follow the instructions below to reduce the chance of experiencing complications. Diet: Resume your normal diet as tolerated. Drink extra fluids. Activity: Rest for the remainder of the day. You may resume your normal activity tomorrow. You may bathe/shower after 24 hours. Do not soak or submerge site (including swimming or hot tubs) until a scab forms. No heavy lifting, pushing, or straining. Dressing: Check the site for bleeding. Apply pressure to the site if bleeding excessively and call your physician. Change the band aid as needed; it can be removed after 24 hours. Keep the site dry at all times until a scab forms over the site. Pain Control: The puncture site may be sore for 1 to 2 days following the procedure. Kivp-jon-pzoqrwh pain medication should be used for pain or discomfort. Please check with the physician who ordered this procedure for you for their specific recommendations. If your pain is not relieved or becomes more severe, notify the physician who sent you for this procedure. If you were sedated for this procedure: Avoid alcoholic beverages for 24 hours after your procedure. Do not drive or operate heavy machinery for 24 hours after your procedure. Do not make any legal decisions for 24 hours after your procedure. Medication: Please resume on . When to seek medical help: Lightheadedness, dizziness, or fainting. Severe pain or swelling. Severe nausea or vomiting. Infection: fever greater than 101 degrees, chills, redness, warmth, swelling, bleeding, or pus frompuncture site. If you experience any of these issues during the first 24 hours, please follow the instruction below: 8:00 am- 5:00 pm call [phone] After 24 hours, contact the physician who ordered this procedure for you. Obtaining test results: Please make an appointment with your doctor to obtain your test results. They are usually availablewithin 4 to 7 business days. Do not assume everything is normal if you have not heard from your doctor or medical facility. It is important for you to follow up on all of your test results. Special Instructions: Additional Information VACCINATE! IT SAVES LIVES! Members of the community who have not yet received the COVID-19 vaccine and would like to receive it can visit one of [facility] vaccine clinics. There are many vaccine clinic locations within the [facility]. For locations and available times, please visit [email or web address] It is important to note that some COVID mobile vaccine clinics are held outdoors and may be canceled in rainy or stormy conditions. To learn more about pediatric vaccinations (ages 5-11), we invite you to visit the [facility] webpage. https://www.[email or web address].org/pages/[email or web address]-Ilxauljovtn-Eqrsrsgxrp-Rdcfr-Fim stions.htmlTo learn more about the COVID-19 vaccine, we invite you to visit the CDC website for a list of frequently asked questions.https://www.cdc.gov/coronavirus/2019-ncov/vaccines/faq.html [employer] Patient Portal Access Instructions: Stay connected with your healthcare team and access your personal medical information anytime with the [employer] Patient Portal. Please follow the directions below to create your [employer] account: 1.Access the email account you provided upon registration to the hospital/physician office.2.Look for an invitation email from [facility].3.Open the email and access the invitation link: AcceptInvitation to [facility].4.Fill in the required wetzel to create your account. To access your account, visit [employer]. Click the blue button labeled Access Patient Portal and then log in with the username and password that you created in the steps above. You will be able to view your test results, lab results, a summary of your visits, upcoming appointments and more. There is also a convenient messaging option where you can send secure messages to your p rovider. In addition, you will have the ability to download any documents or summaries to your computer and/or send the information securely to a physician. Remember that your healthcare information is confidential, so carefully consider who you will allowto register on the [employer] Patient Portal for access to your information. You can also access the [facility] Patient Portal on the [employer] Anywhere patrizia. Simply click on Patient Portal and then log into your account. If you would like to receive a full copy of your medical records, please contact the [facility] Medical Records Department by calling [phone], Saturday through Saturday between 8 a.m. and 4:30 p.m. HOW TO SAFELY DISPOSE OF PRESCRIPTION MEDICATIONS Please use one of the following methods to safely dispose of your unused medications. 1.Use a drug disposal kit: the drug disposal pouch allows you to safely discard your old and unuseddrugs. Ask your nurse to give you one when you are discharged.2.Visit a local take-back location: Many local pharmacies and police departments have programs that collect old and unwanted prescriptiondrugs. Call your local pharmacy or go to http://nooked.[employer] Tal[employer] Track/2Z2Wq8n to find one close to you.3.Make use of household items: Use cat litter or old coffee grounds to dispose medications if other options arenot available. Mix your drugs with these household products, seal them in an airtight container andthrow it into the garbage. Call [facility]: [phone] to be sure your drugs can be disposed of in this way. Some medicines may require a different approach.4.Never flush your medications down the toilet. IF YOU HAVE BEEN PRESCRIBED AN OPIOID FOR PAIN If you have been prescribed an opioid (such as hydrocodone, oxycodone or morphine), it is critical to understand the possible side effects and risks of opioid pain medications. Even when taken as directed, opioids can have several side effects including: Tolerance, meaning you might need to take more of a medication for the same pain relief. Nausea, vomiting and/or constipation. Sleepiness, dizziness, dry mouth, confusion, depression or itching. Physical dependence, meaning you have withdrawal symptoms when a medication is stopped, can develop within a few days. KNOW YOUR RESPONSIBILITIES It is important to know exactly how much and how often to take the opioid pain medications you are prescribed. Never take opioids in higher amounts or more often than prescribed. Do not combine opioids with alcohol or other drugs that cause drowsiness, such as benzodiazepines, also known as benzos, including diazepam and alprazolam, muscle relaxants or sleep aids. Never sell or share prescription opioids. This is illegal. Store opioids in a secure place and out of reach of others (including children, family, friends and visitors). The last page of this document has been signed and retained as a CHART COPY. Signatures Patient Education Materials Radiology- Procedure/Biopsy 04/10/2024 (CUSTOM) Medication Leaflets My discharge plan and instructions have been reviewed and explained to me and SUDHIR Harrell ELLA J understand my current condition and have read and understand these discharge instructions. I have received a written copy of the plan/instructions. If I have questions, I am aware that I should contact my d octor. 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: Date/Time: Relationship to Patient: Witness Name/Signature: Date/Time: [id number] History and physical note IR PREPROCEDURE H&P UPDATE IF A HISTORY AND PHYSICAL EXAMINATION HAS BEEN COMPLETED PRIOR TO ADMISSION TO THE HOSPITAL, AN UPDATED EXAMINATION MUST BE COMPLETED AND DOCUMENTED WITHIN 24 HOURS AFTER ADMISSION OR REGISTRATION BUT BEFORE A SURGICAL PROCEDURE. I have examined the patient, reviewed the H&P, and there are no changes unless noted below: Per chart review, port placed 07/23/[address] Rodrigez, general surgery. CT thorax completed 01/07/2025 shows malposition of the catheter - discussed with Dr. Shah, will proceed with contrast injection, but ultimately patient will need to return to Dr. Rodrigez for port revision. The most recent H&P/Office Note was performed on 01/05/2025 and can be found in the [facility] ([facility]). Deanna Oliver PA-C Interventional Radiology Pager: [phone] IR dept: [phone] Available on [employer] Digitally Signed by DEANNA OLIVER PA-C on 01/08/2025 08:32 AM Digitally Signed by IRMA SHAH DO on 01/08/2025 04:06 PM [id number] Note* Exam Date Time Procedure Performing Provider Status 01/07/25 12:[address] Abdomen/Pelvis w/Contrast Gene ORDOÑEZ MD; Auth (Verified) [id number] ORIGINAL EXAMINATION: CT OF THE ABDOMEN AND PELVIS WITH CONTRAST 01/07/2025 12:06 pm TECHNIQUE: CT of the abdomen and pelvis was performed with the administration of intravenous contrast. Multiplanar reformatted images are provided for review. Automated exposure control, iterative reconstruction, and/or weight based adjustment of the mA/kV was utilized to reduce the radiation dose to as low as reasonably achievable. COMPARISON: February 27, 2025 HISTORY: ORDERING SYSTEM PROVIDED HISTORY: Reason for Exam: Colon cancer, assess treatment response Adenocarcinoma of sigmoid colon, chemotherapy currently. surgical hx; COLOSTOMY: 08/28/24, port-a-cath FINDINGS: Recist 1.1: POTENTIAL TARGET TUMOR LESIONS (maximum 5 lesions, maximum 2 per organ, longest dimension in axial plane reported, >10 mm, reproducible lesions): Right lobe liver lesion 3.4 cm, previously 5 cm. Left lobe liver lesion 2.6 cm, previously 3.6 cm. POTENTIAL TARGET LYMPH NODES (>15 mm short axis, maximum 2): None NONTARGET LESIONS (Definite tumor lesions, lymph nodes 10-14 mm short axis, immeasurable lesions such as lymphangitic involvement, ascites, pleural effusions, etc.): None CT chest also performed and reported separately. Very minor degenerative changes are noted in the spine. No other osseous abnormality. Liver metastatic disease is improved since the previous exam with decreasing lesion size as measured above. No new liver lesions are visible. No biliary dilatation. Spleen, adrenal glands and pancreas are unremarkable. No kidney abnormality. No adenopathy, free air or free fluid is evident. The solid pelvic organs and urinary bladder are grossly normal. There is a left lower quadrant diverting colostomy present, with a fat containing parastomal hernia. Mild thickening of the wall of the sigmoid colon is noted, not significantly different than on the prior study. No other GI tract abnormality seen. No additional significant interval change since prior exam. IMPRESSION: Improved liver metastatic disease since prior exam. No new disease seen. Interpreted by: Irma Ordoñez MD Preliminary Report By: Irma Ordoñez MD Electronically signed By Irma Ordoñez MD Dictated Date: 01/07/2025 1:19:46 PM Prelim Date: 01/07/2025 1:23:29 PM Sign Date: 01/07/2025 1:23:29 PM Ordering Provider: ROSEANN LUNDBERG Interpreted by: Irma Ordoñez MD Preliminary Report By: Irma Ordoñez MD Electronically signed By Irma Ordoñez MD Dictated Date: 01/07/2025 1:19:46 PM Prelim Date: 01/07/2025 1:23:29 PM Sign Date: 01/07/2025 1:23:29 PM Ordering Provider: ROSEANN [facility]07-10-2025 Note* Exam Date Time Procedure Performing Provider Status 01/07/25 10:[address] Thorax w/ Contrast JERARDO DIAZ DO; Auth (Verified) [id number] ORIGINAL EXAMINATION: CT OF THE CHEST WITH CONTRAST 01/07/2025 12:05 pm TECHNIQUE: CT of the chest was performed with the administration of intravenous contrast. Multiplanar reformatted images are provided for review. Automated exposure control, iterative reconstruction, and/or weight based adjustment of the mA/kV was utilized to reduce the radiation dose to as low as reasonably achievable. COMPARISON: 10/28/2024 HISTORY: ORDERING SYSTEM PROVIDED HISTORY: Reason for Exam: Colon cancer, assess treatment response Adenocarcinoma of sigmoid colon, chemotherapy currently. surgical hx; COLOSTOMY: 08/28/24, port-a-cath FINDINGS: Recist 1.1: POTENTIAL TARGET TUMOR LESIONS (maximum 5 lesions, maximum 2 per organ, longest dimension in axial plane reported, >10 mm, reproducible lesions): None POTENTIAL TARGET LYMPH NODES (>15 mm short axis, maximum 2): Right upper lobe nodule measures 1.2 cm, previously 1.3 cm. Left lower lobe nodule measures 1.1 cm, previously 1.2 cm. NONTARGET LESIONS (Definite tumor lesions, lymph nodes 10-14 mm short axis, immeasurable lesions such as lymphangitic involvement, ascites, pleural effusions, etc.): None The heart is normal in size. No pericardial effusion. Atherosclerosis seen of the coronary arteries and aorta. The pulmonary artery measures 3.4 cm. No lymphadenopathy is visible. Findings in the abdomen to be dictated separately. Trachea and mainstem bronchi are patent. No suspicious endotracheal or endobronchial nodule is demonstrated. Right upper lobe nodule measures 1.2 cm, previously 1.3 cm. Left lower lobe nodule measures 1.1 cm, previously 1.2 cm. Left lower lobe nodule measures 4 mm, previously 4 mm. Stable 2 mm pleural based nodules in right lower lobe. No pneumothorax or pleural effusion. No aggressive osseous lesions visible. Degenerative changes seen in the spine. IMPRESSION: 1. Stable pulmonary nodules. No evidence of new disease. 2. Enlarged pulmonary artery may relate to pulmonary arterial hypertension. I have personally reviewed the images of this examination and agree with the resident's findings and interpretation. Interpreted by: Jerardo Diaz DO Preliminary Report By: Edilma Castro MD Electronically signed By Jerardo Diaz DO Dictated Date: 01/07/2025 1:10:52 PM Prelim Date: 01/07/2025 1:23:05 PM Sign Date: 01/07/2025 1:23:05 PM Ordering Provider: ROSEANN LUNDBERG Interpreted by: Jerardo Diaz DO Preliminary Report By: Edilma Castro MD Electronically signed By Jerardo Diaz DO Dictated Date: 01/07/2025 1:10:52 PM Prelim Date: 01/07/2025 1:23:05 PM Sign Date: 01/07/2025 1:23:05 PM Ordering Provider: ROSEANN LUNDBERG [id number] Summary of episode note CLARISSE PEGUERO :1980 Visit Date:01/01/2025 Signatures Patient Education Materials Medication Leaflets My discharge plan and instructions have been reviewed and explained to me and I,CLARISSE PEGUERO understand my current condition and have read and understand these discharge instructions. I have received a written copy of the plan/instructions. If I have questions, I am aware that I should contact my d octor. 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: Date/Time: Relationship to Patient: Witness Name/Signature: Date/Time: [id number] Summary of episode note CLARISSE PEGUERO :1980 Visit Date:12/31/2024 Signatures Patient Education Materials Medication Leaflets My discharge plan and instructions have been reviewed and explained to me and I,CLARISSE PEGUERO understand my current condition and have read and understand these discharge instructions. I have received a written copy of the plan/instructions. If I have questions, I am aware that I should contact my d julitoor. 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: Date/Time: Relationship to Patient: Witness Name/Signature: Date/Time: [id number] Summary of episode note SUDHIRCLARISSE :1980 Visit Date:12/29/2024 Your Visit Summary Your Diagnosis Adenocarcinoma of sigmoid colon Adenocarcinoma of sigmoid colon Tests Performed .Estimated Glomerular Filtration Rate .Morphology .Neutro Absolute CBC CMP Manual Differential Your Care Team Attending Physician - FRANCES MCKEON FLEXO OPERATOR-SVP RESEARCH AND STRATEGIC ANALYSIS Primary Care Physician - ABDULKADIR ROSALES PA-C Vitals Temperature (Oral) 98.1 F (36.7 C) Heart Rate 77 Respiratory Rate 18 Blood Pressure 112/65 Height 62.99 in (160 cm) Weight 219.62 lb (99.6 kg) BMI 38.91 What to do next Instructions From Your Doctor You have received the following therapy today: Chemotherapy/Immunotherapy Call your physician if any of the following problems occur: Nausea/Vomiting Mouth Sores Diarrhea Fever Prolonged bleeding or easy bruising Pain or discomfort at the injection site Scheduled Follow-Up Appointments Appointment Type When With Where Contact Information StatusINF/OSP Labwork 12/31/2024 12:30 PM EDT Infusion Therapy Confirmed INF Chemo: Infusion Pump Discontinue 15 12/31/2024 12:45 PM EDT Infusion Therapy Confirmed INF Chemo: Infusion Injection 15 min 01/01/2025 08:45 AM EDT Infusion Therapy Confirmed GS OV Check Up 01/05/2025 10:00 AM EDT ARLENE RODRIGEZ MD [facility] Confirmed yyCT Abdomen and Pelvis w/ Contrast 3 01/07/2025 11:00 AM EDT Radiology [phone] Confirmed yyCT Chest w/ Contrast 3 01/07/2025 11:15 AM EDT Radiology [phone] Confirmed INF/OSP Labwork 01/12/2025 09:15 AM EDT Infusion Therapy Confirmed HEM ONC OV Follow Up w/ Active Treatme 01/12/2025 10:00 AM EDT ROSEANN LUNDBERG MD [facility] Confirmed INF Chemo: Infusion 240 min (4 hours) 01/12/2025 10:30 AM EDT Infusion Therapy Confirmed INF/OSP Labwork 01/14/2025 01:00 PM EDT Infusion Therapy Confirmed INF Chemo: Infusion Pump Discontinue 01/14/2025 01:15 PM EDT Infusion Therapy Confirmed Medications What How Much When Why Instructions Unchanged herbal/ nutritional product (Probiotic) 1cap by mouth Once a day Unchanged loratadine (loratadine 10 mg oral tablet) 1 tab(s) by mouth Once a day Unchanged omeprazole (omeprazole 20 mg oral delayed release capsule) 1 cap by mouth Once a day Unchanged ondansetron (Zofran 8 mg oral tablet) 1 tab(s) by mouth Every 8 hours as needed for Nausea/Vomiting Adenocarcinoma of sigmoid colon Unchanged prochlorperazine (prochlorperazine 5 mg oral tablet) 1 tab(s) by mouth Three (3) times a day okay to alternate zofran and prochlorperazine. Test Results .Estimated Glomerular Filtration Rate (12/29/2024) Estimated Glomerular Filtration Rate - 120 ml/min/1.73sqm .Morphology (12/29/2024) Platelet Estimate - Adequate Anisocytosis - 2+ Poik - 1+ Polychrom - 1+ Microcytosis - 1+ Ovalocytes - 1+ .Neutro Absolute (12/29/2024) Neutrophil, Absolute - 5.9 10^3/mcL CBC (12/29/2024) WBC - 8.1 10^3/mcL RBC - 3.93 10^6/mcL Hgb - 9.5 G/dL Hct - 30.4 % MCV - 77.2 fL MCH - 24.2 pg MCHC- 31.3 G/dL RDW - 22.8 % Platelet - 340 10^3/mcL MPV - 8.7 fL CMP (12/29/2024) Glucose Level - 98 mg/dL Sodium Level - 142 mEq/L Potassium Level - 3.6 mEq/L Chloride - 107 mEq/L CO2 - 24 mEq/L Electrolyte Balance - 11.0 mEq/L BUN - 9.0 mg/dL Creatinine Lvl (s) - 0.48 mg/dL BUN/Creatinine Ratio - 18.8 ratio Calcium Lvl - 9.6 mg/dL Total Protein - 7.2 G/dL Albumin Level - 3.8 G/dL Globulin - 3.4 G/dL A/G Ratio - 1.1 ratio Bili Total - 0.50 mg/dL Alk Phos - 134 U/L AST/SGOT - 19 U/L ALT/SGPT - 18 U/L Manual Differential (12/29/2024) Neutrophil %, Manual - 82.0 % Lymphocyte %, Manual - 13.0 % Monocyte %, Manual - 1.0 % Eosinophil %, Manual - 0.0 % Basophil %, Manual - 0.0 % Bands - 4.0 % Nucleated RBC - 0.0 /100 WBC Neutrophil, Abs Manual - 6.8 10^3/mcL Lymphocyte, Abs Manual - 1.1 10^3/mcL Monocyte, Abs Manual - 0.1 10^3/mcL Eosinophil, Abs Manual - 0.0 10^3/mcL Basophil, Abs Manual - 0.0 10^3/mcL Allergies ciprofloxacin Insomnia, Nausea, High Blood Pressure, Tachycardia Additional Information VACCINATE! IT SAVES LIVES! Members of the community who have not yet received the COVID-19 vaccine and would like to receive it can visit one of [facility] vaccine clinics. There are many vaccine clinic locations within the [facility]. For locations and available times, please visit [email or web address].gov/. It is important to note that some COVID mobile vaccine clinics are held outdoors and may be canceled in rainy or stormy conditions. To learn more about pediatric vaccinations (ages 5-11), we invite you to visit the [facility] webpage. [email or web address].[email or web address].org/pages/[email or web address]-Nuqsp-Kafxugkqppg-Lbqbpiaxmd-Sqmfr-Wpu stions.htmlTo learn more about the COVID-19 vaccine, we invite you to visit the CDC website for a list of frequently asked questions. https://www.cdc.gov/coronavirus/2019-ncov/vaccines/faq.html [facility] [employer] Patient Portal Access Instructions: Stay connected with your healthcare team and access your personal medical information anytime with the [facility] Patient Portal.If you would like a full copy of your medical records, please contact the [facility] Medical Records Department, Saturday through Saturday between 8a.m. and 4:30p.m. Please follow the directions below to access the portal: 1.Access the email account you provided upon registration to the [facility].2.Look for an invitation email from [facility].3.Open the email and access the invitation link: Accept [facility]itation to [facility].Fill in the required wetzel to create your account. Sign into www.Friend[employer] with your username and password that you created in the above steps to stay up to date. You can then view a summary of results, a summary of your visits, and the ability to download your summaries to your computer or send the information securely to a physician. Remember that your healthcare information is confidential, so carefully consider who you will allow to register on the [facility] Patient Portal for access to your information. You can also access the [facility] Patient Portal on the [employer] patrizia. Simply click on Health Records under HealthData and then click on the [employer] logo. HOW TO SAFELY DISPOSE OF PRESCRIPTION MEDICATIONS Please use one of the following methods to safely dispose of your unused medications. 1.Use a drug disposal kit: the drug disposal pouch allows you to safely discard your old and unuseddrugs. Ask your nurse to give you one when you are discharged.2.Visit a local take-back location: Many local pharmacies and police departments have programs that collect old and unwanted prescriptiondrugs. Call your local pharmacy or go to http://bit.ly/4D9Fz1l to find one close to you.3.Make use of household items: Use cat litter or old coffee grounds to dispose medications if other options arenot available. Mix your drugs with these household products, seal them in an airtight container andthrow it into the garbage. Call [facility]: [phone] to be sure your drugs can be disposed of in this way. Some medicines may require a different approach.4.Never flush your medications down the toilet. IF YOU HAVE BEEN PRESCRIBED AN OPIOID FOR PAIN If you have been prescribed an opioid (such as hydrocodone, oxycodone or morphine), it is critical to understand the possible side effects and risks of opioid pain medications. Even when taken as directed, opioids can have several side effects including: Tolerance, meaning you might need to take more of a medication for the same pain relief. Nausea, vomiting and/or constipation. Sleepiness, dizziness, dry mouth, confusion, depression or itching. Physical dependence, meaning you have withdrawal symptoms when a medication is stopped, can develop within a few days. KNOW YOUR RESPONSIBILITIES It is important to know exactly how much and how often to take the opioid pain medications you are prescribed. Never take opioids in higher amounts or more often than prescribed. Do not combine opioids with alcohol or other drugs that cause drowsiness, such as benzodiazepines, also known as benzos, including diazepam and alprazolam, muscle relaxants or sleep aids. Never sell or share prescription opioids. This is illegal. Store opioids in a secure place and out of reach of others (including children, family, friends and visitors). The last page of this document has been signed and retained as a CHART COPY. Signatures Patient Education Materials Medication Leaflets My discharge plan and instructions have been reviewed and explained to me and ISUDHIR ELLA J understand my current condition and have read and understand these discharge instructions. I have received a written copy of the plan/instructions. If I have questions, I am aware that I should contact my d octor. 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: Date/Time: Relationship to Patient: Witness Name/Signature: [id number] Summary of episode note CLARISSE PEGUERO :1980 Visit Date:12/17/2024 Signatures Patient Education Materials Medication Leaflets My discharge plan and instructions have been reviewed and explained to me and I,CLARISSE PEGUERO understand my current condition and have read and understand these discharge instructions. I have received a written copy of the plan/instructions. If I have questions, I am aware that I should contact my d julitoor. 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: Date/Time: Relationship to Patient: Witness Name/Signature: Date/Time[id number] Summary of episode note CLARISSE PEGUERO :1980 Visit Date:12/15/2024 Your Visit Summary Your Diagnosis Adenocarcinoma of sigmoid colon Tests Performed .Auto Differential -- Results Pending -- .Estimated Glomerular Filtration Rate .Morphology -- Results Pending -- .Neutro Absolute CBC CEA CMP Manual Differential -- Results Pending -- You will be contacted within 72 hours with your results. Your Care Team Attending Physician - FRANCES MCKEON FLEXO OPERATOR-SVP RESEARCH AND STRATEGIC ANALYSIS Primary Care Physician - ABDULKADIR ROSALES PA-C Vitals Temperature (Oral) 98.1 F (36.7 C) Heart Rate 69 Respiratory Rate 18 Blood Pressure 98/40 Height 62.99 in (160.0 cm) Weight 218.07 lb (98.9 kg) BMI 38.63 What to do next Instructions From Your Doctor You have received the following therapy today: Chemotherapy/Immunotherapy Call your physician if any of the following problems occur: Nausea/Vomiting Mouth Sores Diarrhea Fever Prolonged bleeding or easy bruising Pain or discomfort at the injection site Scheduled Follow-Up Appointments Appointment Type When With Where Contact Information StatusINF/OSP Labwork 12/17/2024 12:30 PM EDT Infusion Therapy Confirmed INF Chemo: Infusion Pump Discontinue 15 12/17/2024 12:45 PM EDT Infusion Therapy Confirmed INF/OSP Labwork 12/29/2024 08:15 AM EDT Infusion Therapy Confirmed HEM ONC OV Follow Up w/ Active Treatme 12/29/2024 09:00 AM EDT [facility]UNDBERG [facility] Confirmed INF Chemo: Infusion 240 min (4 hours) 12/29/2024 09:30 AM EDT Infusion Therapy Confirmed INF/OSP Labwork 12/31/2024 12:30 PM EDT Infusion Therapy Confirmed INF Chemo: Infusion Pump Discontinue 15 12/31/2024 12:45 PM EDT Infusion Therapy Confirmed GS OV Check Up 01/05/2025 10:00 AM EDT ARLENE RODRIGEZ MD [facility] Confirmed Medications What How Much When Why Instructions Unchanged herbal/ nutritional product (Probiotic) 1cap by mouth Once a day Unchanged loratadine (loratadine 10 mg oral tablet) 1 tab(s) by mouth Once a day Unchanged omeprazole (omeprazole 20 mg oral delayed release capsule) 1 cap by mouth Once a day Unchanged ondansetron (Zofran 8 mg oral tablet) 1 tab(s) by mouth Every 8 hours as needed for Nausea/Vomiting Adenocarcinoma of sigmoid colon Unchanged prochlorperazine (prochlorperazine 5 mg oral tablet) 1 tab(s) by mouth Three (3) times a day okay to alternate zofran and prochlorperazine. Test Results .Estimated Glomerular Filtration Rate (12/15/2024) Estimated Glomerular Filtration Rate - 119 ml/min/1.73sqm .Neutro Absolute (12/15/2024) Neutrophil, Absolute - 6.8 10^3/mcL CBC (12/15/2024) WBC - 9.2 10^3/mcL RBC - 3.89 10^6/mcL Hgb - 9.1 G/dL Hct - 29.9 % MCV - 77.0 fL MCH - 23.5 pg MCHC- 30.5 G/dL RDW - 22.2 % Platelet - 240 10^3/mcL MPV - 8.9 fL CEA (12/15/2024) CEA - 40.6 ng/mL CMP (12/15/2024) Glucose Level - 89 mg/dL Sodium Level - 143 mEq/L Potassium Level - 3.7 mEq/L Chloride - 106 mEq/L CO2 - 28 mEq/L Electrolyte Balance - 9.0 mEq/L BUN - 11.0 mg/dL Creatinine Lvl (s) - 0.50 mg/dL BUN/Creatinine Ratio - 22.0 ratio Calcium Lvl - 9.0 mg/dL Total Protein - 6.8 G/dL Albumin Level - 3.5 G/dL Globulin - 3.3 G/dL A/G Ratio - 1.1 ratio Bili Total - 0.40 mg/dL Alk Phos - 129 U/L AST/SGOT - 20 U/L ALT/SGPT - 16 U/L Allergies ciprofloxacin Insomnia, Nausea, High Blood Pressure, Tachycardia Additional Information VACCINATE! IT SAVES LIVES! Members of the community who have not yet received the COVID-19 vaccine and would like to receive it can visit one of [facility] vaccine clinics. There are many vaccine clinic locations within the [facility]. For locations and available times, please visit [email or web address]/. It is important to note that some COVID mobile vaccine clinics are held outdoors and may be canceled in rainy or stormy conditions. To learn more about pediatric vaccinations (ages 5-11), we invite you to visit the [facility] webpage. [email or web address]/[email or web address]-[email or web address] stions.htmlTo learn more about the COVID-19 vaccine, we invite you to visit the CDC website for a list of frequently asked questions. https://www.cdc.gov/coronavirus/2019-ncov/vaccines/faq.html [facility] Patient Portal Access Instructions: Stay connected with your healthcare team and access your personal medical information anytime with the [facility] Patient Portal.If you would like a full copy of your medical records, please contact the [facility] Medical Records Department, Saturday through Saturday between 8a.m. and 4:30p.m. Please follow the directions below to access the portal: 1.Access the email account you provided upon registration to the [facility].2.Look for an invitation email from [facility].3.Open the email and access the invitation link: Accept Invitation to [facility]4.Fill in the required wetzel to create your account. Sign into [email or web address] with your username and password that you created in the above steps to stay up to date. You can then view a summary of results, a summary of your visits, and the ability to download your summaries to your computer or send the information securely to a physician. Remember that your healthcare information is confidential, so carefully consider who you will allow to register on the [facility] Patient Portal for access to your information. You can also access the [facility] Patient Portal on the [employer]. Simply click on Health Records under [employer] and then click on the [facility] logo. HOW TO SAFELY DISPOSE OF PRESCRIPTION MEDICATIONS Please use one of the following methods to safely dispose of your unused medications. 1.Use a drug disposal kit: the drug disposal pouch allows you to safely discard your old and unuseddrugs. Ask your nurse to give you one when you are discharged.2.Visit a local take-back location: Many local pharmacies and police departments have programs that collect old and unwanted prescriptiondrugs. Call your local pharmacy or go to http://nooked.[employer]/2L6Rl2h to find one close to you.3.Make use of household items: Use cat litter or old coffee grounds to dispose medications if other options arenot available. Mix your drugs with these household products, seal them in an airtight container andthrow it into the garbage. Call [facility]: [phone] to be sure your drugs can be disposed of in this way. Some medicines may require a different approach.4.Never flush your medications down the toilet. IF YOU HAVE BEEN PRESCRIBED AN OPIOID FOR PAIN If you have been prescribed an opioid (such as hydrocodone, oxycodone or morphine), it is critical to understand the possible side effects and risks of opioid pain medications. Even when taken as directed, opioids can have several side effects including: Tolerance, meaning you might need to take more of a medication for the same pain relief. Nausea, vomiting and/or constipation. Sleepiness, dizziness, dry mouth, confusion, depression or itching. Physical dependence, meaning you have withdrawal symptoms when a medication is stopped, can develop within a few days. KNOW YOUR RESPONSIBILITIES It is important to know exactly how much and how often to take the opioid pain medications you are prescribed. Never take opioids in higher amounts or more often than prescribed. Do not combine opioids with alcohol or other drugs that cause drowsiness, such as benzodiazepines, also known as benzos, including diazepam and alprazolam, muscle relaxants or sleep aids. Never sell or share prescription opioids. This is illegal. Store opioids in a secure place and out of reach of others (including children, family, friends and visitors). The last page of this document has been signed and retained as a CHART COPY. Signatures Patient Education Materials Medication Leaflets My discharge plan and instructions have been reviewed and explained to me and I,CLARISSE PEGUERO understand my current condition and have read and understand these discharge instructions. I have received a written copy of the plan/instructions. If I have questions, I am aware that I should contact my d octor. 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: Date/Time: Relationship to Patient: Witness Name/Signature: Date[facility]Time[id number] Summary of episode note CLARISSE PEGUERO :1980 Visit Date:12/03/2024 Your Visit Summary Your Diagnosis Adenocarcinoma of sigmoid colon Your Care Team Attending Physician - ROSEANN LUNDBERG MD Primary Care Physician - ABDULKADIR ROSALES PA-C Vitals Temperature (Oral) 99.0 F (37.2 C) Heart Rate 73 Blood Pressure 106/43 What to do next Scheduled Follow-Up Appointments Appointment Type When With Where Contact Information StatusINF Chemo: Infusion Pump Discontinue 15 12/03/2024 01:45 PM EDT Infusion Therapy Confirmed INF/OSP Labwork 12/15/2024 08:30 AM EDT Infusion Therapy Confirmed INF Chemo: Infusion 240 min (4 hours) 12/15/2024 08:45 AM EDT Infusion Therapy Confirmed INF/OSP Labwork 12/17/2024 12:30 PM EDT Infusion Therapy Confirmed INF Chemo: Infusion Pump Discontinue 15 12/17/2024 12:45 PM EDT Infusion Therapy Confirmed INF/OSP Labwork 12/29/2024 08:15 AM EDT Infusion Therapy Confirmed HEM ONC OV Follow Up w/ Active Treatme 12/29/2024 09:00 AM EDT ROSEANN LUNDBERG MD [facility] Confirmed INF Chemo: Infusion 240 min (4 hours) 12/29/2024 09:30 AM EDT Infusion Therapy Confirmed INF/OSP Labwork 12/31/2024 12:30 PM EDT Infusion Therapy Confirmed INF Chemo: Infusion Pump Discontinue 15 12/31/2024 12:45 PM EDT Infusion Therapy Confirmed GS OV Check Up 01/05/2025 10:00 AM EDT ARLENE RODRIGEZ MD [facility] Confirmed Medications What How Much When Why Instructions Unchanged herbal/ nutritional product (Probiotic) 1cap by mouth Once a day Unchanged loratadine (loratadine 10 mg oral tablet) 1 tab(s) by mouth Once a day Unchanged omeprazole (omeprazole 20 mg oral delayed release capsule) 1 cap by mouth Once a day Unchanged ondansetron (Zofran 8 mg oral tablet) 1 tab(s) by mouth Every 8 hours as needed for Nausea/Vomiting Adenocarcinoma of sigmoid colon Allergies ciprofloxacin Insomnia, Nausea, High Blood Pressure, Tachycardia Additional Information VACCINATE! IT SAVES LIVES! Members of the community who have not yet received the COVID-19 vaccine and would like to receive it can visit one of [facility] vaccine clinics. There are many vaccine clinic locations within the [facility]. For locations and available times, please visit [email or web address]/. It is important to note that some COVID mobile vaccine clinics are held outdoors and may be canceled in rainy or stormy conditions. To learn more about pediatric vaccinations (ages 5-11), we invite you to visit the [facility] webpage. https://www.[email or web address]/pages/[email or web address]-Havby-[email or web address] stions.htmlTo learn more about the COVID-19 vaccine, we invite you to visit the CDC website for a list of frequently asked questions. https://www.cdc.gov/coronavirus/2019-ncov/vaccines/faq.html [facility] [employer] Patient Portal Access Instructions: Stay connected with your healthcare team and access your personal medical information anytime with the [facility] Patient Portal.If you would like a full copy of your medical records, please contact the [facility] Medical Records Department, Saturday through Saturday between 8a.m. and 4:30p.m. Please follow the directions below to access the portal: 1.Access the email account you provided upon registration to the [facility].2.Look for an invitation email from [facility].3.Open the email and access the invitation link: Accept Invitation to [facility]4.Fill in the required wetzel to create your account. Sign into [email or web address] with your username and password that you created in the above steps to stay up to date. You can then view a summary of results, a summary of your visits, and the ability to download your summaries to your computer or send the information securely to a physician. Remember that your healthcare information is confidential, so carefully consider who you will allow to register on the [facility] Patient Portal for access to your information. You can also access the [facility] Patient Portal on the [employer]. Simply click on Health Records under [employer] and then click on the [employer] logo. HOW TO SAFELY DISPOSE OF PRESCRIPTION MEDICATIONS Please use one of the following methods to safely dispose of your unused medications. 1.Use a drug disposal kit: the drug disposal pouch allows you to safely discard your old and unuseddrugs. Ask your nurse to give you one when you are discharged.2.Visit a local take-back location: Many local pharmacies and police departments have programs that collect old and unwanted prescriptiondrugs. Call your local pharmacy or go to http://bit.[employer]/4K4Cp5y to find one close to you.3.Make use of household items: Use cat litter or old coffee grounds to dispose medications if other options arenot available. Mix your drugs with these household products, seal them in an airtight container andthrow it into the garbage. Call [facility]: [phone] to be sure your drugs can be disposed of in this way. Some medicines may require a different approach.4.Never flush your medications down the toilet. IF YOU HAVE BEEN PRESCRIBED AN OPIOID FOR PAIN If you have been prescribed an opioid (such as hydrocodone, oxycodone or morphine), it is critical to understand the possible side effects and risks of opioid pain medications. Even when taken as directed, opioids can have several side effects including: Tolerance, meaning you might need to take more of a medication for the same pain relief. Nausea, vomiting and/or constipation. Sleepiness, dizziness, dry mouth, confusion, depression or itching. Physical dependence, meaning you have withdrawal symptoms when a medication is stopped, can develop within a few days. KNOW YOUR RESPONSIBILITIES It is important to know exactly how much and how often to take the opioid pain medications you are prescribed. Never take opioids in higher amounts or more often than prescribed. Do not combine opioids with alcohol or other drugs that cause drowsiness, such as benzodiazepines, also known as benzos, including diazepam and alprazolam, muscle relaxants or sleep aids. Never sell or share prescription opioids. This is illegal. Store opioids in a secure place and out of reach of others (including children, family, friends and visitors). The last page of this document has been signed and retained as a CHART COPY. Signatures Patient Education Materials Medication Leaflets My discharge plan and instructions have been reviewed and explained to me and ISUDHIR ELLA J understand my current condition and have read and understand these discharge instructions. I have received a written copy of the plan/instructions. If I have questions, I am aware that I should contact my d octor. 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: Date/Time: Relationship to Patient: Witness Name/Signature: Date[facility]Time[id number] Summary of episode note CLARISSE PEGUERO :1980 Visit Date:12/01/2024 Your Visit Summary Your Diagnosis Adenocarcinoma of sigmoid colon Adenocarcinoma of sigmoid colon Tests Performed .Auto Differential .Estimated Glomerular Filtration Rate .Neutro Absolute CBC CMP Your Care Team Attending Physician - ROSEANN LUNDBERG MD Primary Care Physician - ABDULKADIR ROSALES PA-C Vitals Temperature (Oral) 98.1 F (36.7 C) Heart Rate (Apical) 66 Respiratory Rate 20 Blood Pressure 100/51 Height 62.99 in (160.0 cm) Weight 217.63 lb (98.7 kg) BMI 38.55 What to do next Instructions From Your Doctor You have received the following therapy today: Chemotherapy/Immunotherapy Call your physician if any of the following problems occur: Nausea/Vomiting Mouth Sores Diarrhea Fever Prolonged bleeding or easy bruising Pain or discomfort at the injection site Scheduled Follow-Up Appointments Appointment Type When With Where Contact Information StatusINF/OSP Labwork 12/03/2024 01:30 PM EDT Infusion Therapy Confirmed INF Chemo: Infusion Pump Discontinue 15 12/03/2024 01:45 PM EDT Infusion Therapy Confirmed INF/OSP Labwork 12/15/2024 08:30 AM EDT Infusion Therapy Confirmed INF Chemo: Infusion 240 min (4 hours) 12/15/2024 08:45 AM EDT Infusion Therapy Confirmed INF/OSP Labwork 12/17/2024 12:30 PM EDT Infusion Therapy Confirmed INF Chemo: Infusion Pump Discontinue 15 12/17/2024 12:45 PM EDT Infusion Therapy Confirmed INF/OSP Labwork 12/29/2024 08:15 AM EDT Infusion Therapy Confirmed HEM ONC OV Follow Up w/ Active Treatme 12/29/2024 09:00 AM EDT ROSEANN LUNDBERG MD [facility] Confirmed INF Chemo: Infusion 240 min (4 hours) 12/29/2024 09:30 AM EDT Infusion Therapy Confirmed INF/OSP Labwork 12/31/2024 12:30 PM EDT Infusion Therapy Confirmed INF Chemo: Infusion Pump Discontinue 15 12/31/2024 12:45 PM EDT Infusion Therapy Confirmed GS OV Check Up 01/05/2025 10:00 AM ARLENE HYDE MD [facility] Confirmed Medications What How Much When Why Instructions Unchanged herbal/ nutritional product (Probiotic) 1cap by mouth Once a day Unchanged loratadine (loratadine 10 mg oral tablet) 1 tab(s) by mouth Once a day Unchanged omeprazole (omeprazole 20 mg oral delayed release capsule) 1 cap by mouth Once a day Unchanged ondansetron (Zofran 8 mg oral tablet) 1 tab(s) by mouth Every 8 hours as needed for Nausea/Vomiting Adenocarcinoma of sigmoid colon Test Results .Auto Differential (12/01/2024) Neutrophil % - 65.7 % Lymphocyte % - 25.8 % Monocyte % - 7.6 % Eosinophil % - 0.6 % Basophil % - 0.3 % Lymphocyte, Absolute - 1.5 10^3/mcL Monocyte, Absolute - 0.4 10^3/mcL Eosinophil, Absolute - 0.010^3/mcL Basophil, Absolute - 0.0 10^3/mcL .Estimated Glomerular Filtration Rate (12/01/2024) Estimated Glomerular Filtration Rate - >120 ml/min/1.73sqm .Neutro Absolute (12/01/2024) Neutrophil, Absolute - 3.8 10^3/mcL CBC (12/01/2024) WBC - 5.7 10^3/mcL RBC - 3.84 10^6/mcL Hgb - 9.0 G/dL Hct - 29.3 % MCV - 76.3 fL MCH - 23.4 pg MCHC- 30.7 G/dL RDW - 21.9 % Platelet - 301 10^3/mcL MPV - 8.4 fL CMP (12/01/2024) Glucose Level - 100 mg/dL Sodium Level - 142 mEq/L Potassium Level - 3.6 mEq/L Chloride - 107 mEq/LCO2 - 26 mEq/L Electrolyte Balance - 9.0 mEq/L BUN - 7.0 mg/dL Creatinine Lvl (s) - 0.45 mg/dL BUN/Creatinine Ratio - 15.6 ratio Calcium Lvl - 8.9 mg/dL Total Protein - 7.1 G/dL Albumin Level - 3.7 G/dL Globulin - 3.4 G/dL A/G Ratio - 1.1 ratio Bili Total - 0.50 mg/dL Alk Phos - 127 U/L AST/SGOT - 19 U/L ALT/SGPT - 17 U/L Allergies ciprofloxacin Insomnia, Nausea, High Blood Pressure, Tachycardia Additional Information VACCINATE! IT SAVES LIVES! Members of the community who have not yet received the COVID-19 vaccine and would like to receive it can visit one of [facility] vaccine clinics. There are many vaccine clinic locations within the [facility]. For locations and available times, please visit [email or web address]/. It is important to note that some COVID mobile vaccine clinics are held outdoors and may be canceled in rainy or stormy conditions. To learn more about pediatric vaccinations (ages 5-11), we invite you to visit the [employer] [facility] webpage. [email or web address] [email or web address] learn more about the COVID-19 vaccine, we invite you to visit the CDC website for a list of frequently asked questions. https://www.cdc.gov/coronavirus/2019-ncov/vaccines/faq.html [facility] Patient Portal Access Instructions: Stay connected with your healthcare team and access your personal medical information anytime with the [facility] Patient Portal.If you would like a full copy of your medical records, please contact the [facility] Medical Records Department, Saturday through Saturday between 8a.m. and 4:30p.m. Please follow the directions below to access the portal: 1.Access the email account you provided upon registration to the hospital.2.Look for an invitation email from [facility].3.Open the email and access the invitation link: Accept Invitation to [facility]4.Fill in the required wetzel to create your account. Sign into [email or web address].[email or web address] with your username and password that you created in the above steps to stay up to date. You can then view a summary of results, a summary of your visits, and the ability to download your summaries to your computer or send the information securely to a physician. Remember that your healthcare information is confidential, so carefully consider who you will allow to register on the [facility] Patient Portal for access to your information. You can also access the [facility] Patient Portal on the [employer]. Simply click on Health Records under [employer] and then click on the [employer] logo. HOW TO SAFELY DISPOSE OF PRESCRIPTION MEDICATIONS Please use one of the following methods to safely dispose of your unused medications. 1.Use a drug disposal kit: the drug disposal pouch allows you to safely discard your old and unuseddrugs. Ask your nurse to give you one when you are discharged.2.Visit a local take-back location: Many local pharmacies and police departments have programs that collect old and unwanted prescriptiondrugs. Call your local pharmacy or go to http://nooked.[employer]/4V8Aj9j to find one close to you.3.Make use of household items: Use cat litter or old coffee grounds to dispose medications if other options arenot available. Mix your drugs with these household products, seal them in an airtight container andthrow it into the garbage. Call [facility]: [phone] to be sure your drugs can be disposed of in this way. Some medicines may require a different approach.4.Never flush your medications down the toilet. IF YOU HAVE BEEN PRESCRIBED AN OPIOID FOR PAIN If you have been prescribed an opioid (such as hydrocodone, oxycodone or morphine), it is critical to understand the possible side effects and risks of opioid pain medications. Even when taken as directed, opioids can have several side effects including: Tolerance, meaning you might need to take more of a medication for the same pain relief. Nausea, vomiting and/or constipation. Sleepiness, dizziness, dry mouth, confusion, depression or itching. Physical dependence, meaning you have withdrawal symptoms when a medication is stopped, can develop within a few days. KNOW YOUR RESPONSIBILITIES It is important to know exactly how much and how often to take the opioid pain medications you are prescribed. Never take opioids in higher amounts or more often than prescribed. Do not combine opioids with alcohol or other drugs that cause drowsiness, such as benzodiazepines, also known as benzos, including diazepam and alprazolam, muscle relaxants or sleep aids. Never sell or share prescription opioids. This is illegal. Store opioids in a secure place and out of reach of others (including children, family, friends and visitors). The last page of this document has been signed and retained as a CHART COPY. Signatures Patient Education Materials Medication Leaflets My discharge plan and instructions have been reviewed and explained to me and I,CLARISSE PEGUERO understand my current condition and have read and understand these discharge instructions. I have received a written copy of the plan/instructions. If I have questions, I am aware that I should contact my d julitoor. 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: Date/Time: Relationship to Patient: Witness Name/Signature: [id number] Summary of episode note CLARISSE PEGUERO :1980 Visit Date:11/17/2024 Your Visit Summary Your Diagnosis Adenocarcinoma of sigmoid colon Tests Performed .Auto Differential -- Results Pending -- .Estimated Glomerular Filtration Rate .Morphology -- Results Pending -- .Neutro Absolute CBC CMP Manual Differential -- Results Pending -- You will be contacted within 72 hours with your results. Your Care Team Attending Physician - ROSEANN LUNDBERG MD Primary Care Physician - ABDULKADIR ROSALES PA-C Vitals Temperature (Oral) 97.9 F (36.6 C) Heart Rate 75 Blood Pressure 104/63 Height 62.99 in (160 cm) Weight 216.53 lb (98.2 kg) BMI 38.36 What to do next Instructions From Your Doctor You have received the following therapy today: Chemotherapy/Immunotherapy Call your physician if any of the following problems occur: Nausea/Vomiting Mouth Sores Diarrhea Fever Prolonged bleeding or easy bruising Pain or discomfort at the injection site Scheduled Follow-Up Appointments Appointment Type When With Where Contact Information StatusINF/OSP Labwork 11/19/2024 01:30 PM EDT Infusion Therapy Confirmed INF Chemo: Infusion Pump Discontinue 15 11/19/2024 01:45 PM EDT Infusion Therapy Confirmed INF/OSP Labwork 12/01/2024 08:15 AM EDT Infusion Therapy Confirmed HEM ONC OV Follow Up w/FLEXO OPERATOR Active Treat 12/01/2024 09:00 AM EDT FRANCES MCKEON APRN-SVP RESEARCH AND STRATEGIC ANALYSIS [facility] Confirmed INF Chemo: Infusion 240 min (4 hours) 12/01/2024 09:30 AM EDT Infusion Therapy Confirmed INF/OSP Labwork 12/03/2024 01:30 PM EDT Infusion Therapy Confirmed INF Chemo: Infusion Pump Discontinue 15 12/03/2024 01:45 PM EDT Infusion Therapy Confirmed GS OV Check Up 01/05/2025 10:00 AM EDT ARLENE RDORIGEZ MD [facility] Confirmed Medications What How Much When Why Instructions Unchanged herbal/ nutritional product (Probiotic) 1cap by mouth Once a day Unchanged loratadine (loratadine 10 mg oral tablet) 1 tab(s) by mouth Once a day Unchanged omeprazole (omeprazole 20 mg oral delayed release capsule) 1 cap by mouth Once a day Unchanged ondansetron (Zofran 8 mg oral tablet) 1 tab(s) by mouth Every 8 hours as needed for Nausea/Vomiting Adenocarcinoma of sigmoid colon Test Results .Estimated Glomerular Filtration Rate (11/17/2024) Estimated Glomerular Filtration Rate - 120 ml/min/1.73sqm .Neutro Absolute (11/17/2024) Neutrophil, Absolute - 11.3 10^3/mcL CBC (11/17/2024) WBC - 14.0 10^3/mcL RBC - 3.99 10^6/mcL Hgb - 9.0 G/dL Hct - 29.7 % MCV - 74.5 fL MCH - 22.5 pg MCHC - 30.3 G/dL RDW - 22.1 % Platelet - 166 10^3/mcL MPV - 9.3 fL CMP (11/17/2024) Glucose Level - 94 mg/dL Sodium Level - 143 mEq/L Potassium Level - 3.6 mEq/L Chloride - 106 mEq/L CO2 - 28 mEq/L Electrolyte Balance - 9.0 mEq/L BUN - 6.0 mg/dL Creatinine Lvl (s) - 0.47 mg/dL BUN/Creatinine Ratio - 12.8 ratio Calcium Lvl - 9.7 mg/dL Total Protein - 7.0 G/dL Albumin Level - 3.6 G/dL Globulin - 3.4 G/dL A/G Ratio - 1.1 ratio Bili Total - 0.60 mg/dL Alk Phos - 150 U/L AST/SGOT - 30 U/L ALT/SGPT - 26 U/L Allergies ciprofloxacin Insomnia, Nausea, High Blood Pressure, Tachycardia Additional Information VACCINATE! IT SAVES LIVES! Members of the community who have not yet received the COVID-19 vaccine and would like to receive it can visit one of [facility] vaccine clinics. There are many vaccine clinic locations within the [facility]. For locations and available times, please visit [email or web address] It is important to note that some COVID mobile vaccine clinics are held outdoors and may be canceled in rainy or stormy conditions. To learn more about pediatric vaccinations (ages 5-11), we invite you to visit the [employer] webpage. [email or web address] learn more about the COVID-19 vaccine, we invite you to visit the CDC website for a list of frequently asked questions. https://www.cdc.gov/coronavirus/2019-ncov/vaccines/faq.html [employer] Patient Portal Access Instructions: Stay connected with your healthcare team and access your personal medical information anytime with the [facility] Patient Portal.If you would like a full copy of your medical records, please contact the [facility] Medical Records Department, Saturday through Saturday between 8a.m. and 4:30p.m. Please follow the directions below to access the portal: 1.Access the email account you provided upon registration to the hospital.2.Look for an invitation email from [facility].3.Open the email and access the invitation link: Accept Invitation to [facility]4.Fill in the required wetzel to create your account. Sign into www.Friendly Score with your username and password that you created in the above steps to stay up to date. You can then view a summary of results, a summary of your visits, and the ability to download your summaries to your computer or send the information securely to a physician. Remember that your healthcare information is confidential, so carefully consider who you will allow to register on the [employer] Patient Portal for access to your information. You can also access the [employer] Patient Portal on the [employer]. Simply click on Health Records under [employer] and then click on the [employer] logo. HOW TO SAFELY DISPOSE OF PRESCRIPTION MEDICATIONS Please use one of the following methods to safely dispose of your unused medications. 1.Use a drug disposal kit: the drug disposal pouch allows you to safely discard your old and unuseddrugs. Ask your nurse to give you one when you are discharged.2.Visit a local take-back location: Many local pharmacies and police departments have programs that collect old and unwanted prescriptiondrugs. Call your local pharmacy or go to http://nooked.[employer] Tal[employer] Track/8H8Zi5x to find one close to you.3.Make use of household items: Use cat litter or old coffee grounds to dispose medications if other options arenot available. Mix your drugs with these household products, seal them in an airtight container andthrow it into the garbage. Call [facility]: [phone] to be sure your drugs can be disposed of in this way. Some medicines may require a different approach.4.Never flush your medications down the toilet. IF YOU HAVE BEEN PRESCRIBED AN OPIOID FOR PAIN If you have been prescribed an opioid (such as hydrocodone, oxycodone or morphine), it is critical to understand the possible side effects and risks of opioid pain medications. Even when taken as directed, opioids can have several side effects including: Tolerance, meaning you might need to take more of a medication for the same pain relief. Nausea, vomiting and/or constipation. Sleepiness, dizziness, dry mouth, confusion, depression or itching. Physical dependence, meaning you have withdrawal symptoms when a medication is stopped, can develop within a few days. KNOW YOUR RESPONSIBILITIES It is important to know exactly how much and how often to take the opioid pain medications you are prescribed. Never take opioids in higher amounts or more often than prescribed. Do not combine opioids with alcohol or other drugs that cause drowsiness, such as benzodiazepines, also known as benzos, including diazepam and alprazolam, muscle relaxants or sleep aids. Never sell or share prescription opioids. This is illegal. Store opioids in a secure place and out of reach of others (including children, family, friends and visitors). The last page of this document has been signed and retained as a CHART COPY. Signatures Patient Education Materials Medication Leaflets My discharge plan and instructions have been reviewed and explained to me and I,CLARISSE PEGUERO understand my current condition and have read and understand these discharge instructions. I have received a written copy of the plan/instructions. If I have questions, I am aware that I should contact my d julitoor. 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: Date/Time: Relationship to Patient: Witness Name/Signature: Date[facility]Time[id number] Summary of episode note CLARISSE PEGUERO :1980 Visit Date:11/05/2024 Signatures Patient Education Materials Medication Leaflets My discharge plan and instructions have been reviewed and explained to me and I,CLARISSE PEGUERO understand my current condition and have read and understand these discharge instructions. I have received a written copy of the plan/instructions. If I have questions, I am aware that I should contact my david kumar. 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: Date/Time: Relationship to Patient: Witness Name/Signature: Date/Time: [id number] Summary of episode note CLARISSE PEGUERO :1980 Visit Date:11/03/2024 Your Visit Summary Your Diagnosis Adenocarcinoma of sigmoid colon Adenocarcinoma of sigmoid colon Tests Performed .Estimated Glomerular Filtration Rate .Morphology .Neutro Absolute CBC CEA CMP Manual Differential Your Care Team Attending Physician - ROSEANN LUNDBERG MD Primary Care Physician - ABDULKADIR ROSALES PA-C Vitals Temperature (Oral) 98.4 F (36.9 C) Heart Rate 77 Blood Pressure 114/61 Height 62.99 in (160.0 cm) Weight 216.75 lb (98.3 kg) BMI 38.4 What to do next Instructions From Your Doctor You have received the following therapy today: Chemotherapy/Immunotherapy Call your physician if any of the following problems occur: Nausea/Vomiting Mouth Sores Diarrhea Fever Prolonged bleeding or easy bruising Pain or discomfort at the injection site Scheduled Follow-Up Appointments Appointment Type When With Where Contact Information StatusINF/OSP Labwork 11/05/2024 01:00 PM EDT Infusion Therapy Confirmed INF Chemo: Infusion Pump Discontinue 15 11/05/2024 01:15 PM EDT Infusion Therapy Confirmed GS OV Post Op 11/10/2024 08:15 AM EDT ARLENE RODRIGEZ MD [facility] Confirmed HEM ONC OV Follow Up w/FLEXO OPERATOR Active Treat 12/01/2024 09:00 AM EDT FRANCES MCKEON APRN-SVP RESEARCH AND STRATEGIC ANALYSIS [facility] Confirmed Medications What How Much When Why Instructions Unchanged herbal/ nutritional product (Probiotic) 1cap by mouth Once a day Unchanged loratadine (loratadine 10 mg oral tablet) 1 tab(s) by mouth Once a day Unchanged omeprazole (omeprazole 20 mg oral delayed release capsule) 1 cap by mouth Once a day Unchanged ondansetron (Zofran 8 mg oral tablet) 1 tab(s) by mouth Every 8 hours as needed for Nausea/Vomiting Adenocarcinoma of sigmoid colon Test Results .Estimated Glomerular Filtration Rate (11/03/2024) Estimated Glomerular Filtration Rate - >120 ml/min/1.73sqm .Morphology (11/03/2024) Platelet Estimate - Adequate Anisocytosis - 2+ .Neutro Absolute (11/03/2024) Neutrophil, Absolute - 6.3 10^3/mcL CBC (11/03/2024) WBC - 8.6 10^3/mcL RBC - 4.10 10^6/mcL Hgb - 9.3 G/dL Hct - 30.2 % MCV - 73.7 fL MCH - 22.7 pg MCHC- 30.8 G/dL RDW - 23.2 % Platelet - 182 10^3/mcL MPV - 9.2 fL CEA (11/03/2024) CEA - 239.8 ng/mL CMP (11/03/2024) Glucose Level - 100 mg/dL Sodium Level - 142 mEq/L Potassium Level - 3.8 mEq/L Chloride - 107 mEq/LCO2 - 23 mEq/L Electrolyte Balance - 12.0 mEq/L BUN - 8.0 mg/dL Creatinine Lvl (s) - 0.46 mg/dL BUN/Creatinine Ratio - 17.4 ratio Calcium Lvl - 9.0 mg/dL Total Protein - 7.0 G/dL Albumin Level - 3.5 G/dL Globulin - 3.5 G/dL A/G Ratio - 1.0 ratio Bili Total - 0.50 mg/dL Alk Phos - 127 U/L AST/SGOT -33 U/L ALT/SGPT - 40 U/L Manual Differential (11/03/2024) Neutrophil %, Manual - 82.0 % Lymphocyte %, Manual - 12.0 % Monocyte %, Manual - 5.0 % Eosinophil %, Manual - 0.0 % Basophil %, Manual - 1.0 % Nucleated RBC - 0.0 /100 WBC Neutrophil, Abs Manual - 7.1 10^3/mcL Lymphocyte, Abs Manual - 1.0 10^3/mcL Monocyte, Abs Manual - 0.4 10^3/mcL Eosinophil, AbsManual - 0.0 10^3/mcL Basophil, Abs Manual - 0.1 10^3/mcL Allergies ciprofloxacin Insomnia, Nausea, High Blood Pressure, Tachycardia Additional Information VACCINATE! IT SAVES LIVES! Members of the community who have not yet received the COVID-19 vaccine and would like to receive it can visit one of [facility] vaccine clinics. There are many vaccine clinic locations within the [facility]. For locations and available times, please visit [email or web address] It is important to note that some COVID mobile vaccine clinics are held outdoors and may be canceled in rainy or stormy conditions. To learn more about pediatric vaccinations (ages 5-11), we invite you to visit the [facility] webpage. [email or web address] learn more about the COVID-19 vaccine, we invite you to visit the CDC website for a list of frequently asked questions. https://www.cdc.gov/coronavirus/2019-ncov/vaccines/faq.html [facility] Patient Portal Access Instructions: Stay connected with your healthcare team and access your personal medical information anytime with the [facility] Patient Portal.If you would like a full copy of your medical records, please contact the [facility] Medical Records Department, Saturday through Saturday between 8a.m. and 4:30p.m. Please follow the directions below to access the portal: 1.Access the email account you provided upon registration to the [facility].2.Look for an invitation email from [facility].3.Open the email and access the invitation link: Accept Invitation to [facility]4.Fill in the required wetzel to create your account. Sign into www.Friendly Score with your username and password that you created in the above steps to stay up to date. You can then view a summary of results, a summary of your visits, and the ability to download your summaries to your computer or send the information securely to a physician. Remember that your healthcare information is confidential, so carefully consider who you will allow to register on the [facility] Patient Portal for access to your information. You can also access the [facility] Patient Portal on the [employer]. Simply click on Health Records under [employer] and then click on the [employer] logo. HOW TO SAFELY DISPOSE OF PRESCRIPTION MEDICATIONS Please use one of the following methods to safely dispose of your unused medications. 1.Use a drug disposal kit: the drug disposal pouch allows you to safely discard your old and unuseddrugs. Ask your nurse to give you one when you are discharged.2.Visit a local take-back location: Many local pharmacies and police departments have programs that collect old and unwanted prescriptiondrugs. Call your local pharmacy or go to http://bit.[employer] Talent Track/3I8Th1m to find one close to you.3.Make use of household items: Use cat litter or old coffee grounds to dispose medications if other options arenot available. Mix your drugs with these household products, seal them in an airtight container andthrow it into the garbage. Call [facility]: [phone] to be sure your drugs can be disposed of in this way. Some medicines may require a different approach.4.Never flush your medications down the toilet. IF YOU HAVE BEEN PRESCRIBED AN OPIOID FOR PAIN If you have been prescribed an opioid (such as hydrocodone, oxycodone or morphine), it is critical to understand the possible side effects and risks of opioid pain medications. Even when taken as directed, opioids can have several side effects including: Tolerance, meaning you might need to take more of a medication for the same pain relief. Nausea, vomiting and/or constipation. Sleepiness, dizziness, dry mouth, confusion, depression or itching. Physical dependence, meaning you have withdrawal symptoms when a medication is stopped, can develop within a few days. KNOW YOUR RESPONSIBILITIES It is important to know exactly how much and how often to take the opioid pain medications you are prescribed. Never take opioids in higher amounts or more often than prescribed. Do not combine opioids with alcohol or other drugs that cause drowsiness, such as benzodiazepines, also known as benzos, including diazepam and alprazolam, muscle relaxants or sleep aids. Never sell or share prescription opioids. This is illegal. Store opioids in a secure place and out of reach of others (including children, family, friends and visitors). The last page of this document has been signed and retained as a CHART COPY. Signatures Patient Education Materials Medication Leaflets My discharge plan and instructions have been reviewed and explained to me and ISUDHIR ELLA J understand my current condition and have read and understand these discharge instructions. I have received a written copy of the plan/instructions. If I have questions, I am aware that I should contact my d octor. 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: Date/Time: Relationship to Patient: Witness Name/Signature: Date/Time[id number] Summary of episode note CLARISSE PEGUERO :1980 Visit Date:10/22/2024 Signatures Patient Education Materials Medication Leaflets My discharge plan and instructions have been reviewed and explained to me and I,CLARISSE PEGUERO understand my current condition and have read and understand these discharge instructions. I have received a written copy of the plan/instructions. If I have questions, I am aware that I should contact my d octor. 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: Date/Time: Relationship to Patient: Witness Name/Signature: Date/Time: [id number] Summary of episode note CLARISSE PEGUERO :1980 Visit Date:10/20/2024 Your Visit Summary Your Diagnosis Adenocarcinoma of sigmoid colon Adenocarcinoma of sigmoid colon Tests Performed .Auto Differential .Estimated Glomerular Filtration Rate .Neutro Absolute CBC CEA -- Results Pending -- CMP You will be contacted within 72 hours with your results. Your Care Team Attending Physician - ROSEANN LUNDBERG MD Primary Care Physician - ABDULKADIR ROSALES PA-C Vitals Temperature (Oral) 98.6 F (37.0 C) Heart Rate 60 Blood Pressure 118/57 Height 62.99 in (160.0 cm) Weight 217.85 lb (98.8 kg) BMI 38.59 What to do next Instructions From Your Doctor You have received the following therapy today: Chemotherapy/Immunotherapy Call your physician if any of the following problems occur: Nausea/Vomiting Mouth Sores Diarrhea Fever Prolonged bleeding or easy bruising Pain or discomfort at the injection site Scheduled Follow-Up Appointments Appointment Type When With Where Contact Information StatusINF/OSP Labwork 10/22/2024 12:15 PM EDT Infusion Therapy Confirmed INF Chemo: Infusion Pump Discontinue 10/22/2024 12:30 PM EDT Infusion Therapy Confirmed yyCT Abdomen and Pelvis w/ Contrast 3 10/28/2024 02:00 PM EDT North Xray Confirmed yyCT Chest w/ Contrast 3 10/28/2024 02:15 PM EDT North Xray Confirmed INF/OSP Labwork 11/03/2024 08:45 AM EDT Infusion Therapy Confirmed HEM ONC OV Follow Up w/ Active Treatme 11/03/2024 09:30 AM EDT ROSEANN LUNDBERG MD [facility] Confirmed INF Chemo: Infusion 240 min (4 hours) 11/03/2024 10:00 AM EDT Infusion Therapy Confirmed INF/OSP Labwork 11/05/2024 01:00 PM EDT Infusion Therapy Confirmed INF Chemo: Infusion Pump Discontinue 11/05/2024 01:15 PM EDT Infusion Therapy Confirmed GS OV Post Op 11/10/2024 08:15 AM EDT ARLENE RODRIGEZ MD [facility] Confirmed Test Results .Auto Differential (10/20/2024) Neutrophil % - 73.4 % Lymphocyte % - 19.5 % Monocyte % - 5.7 % Eosinophil % - 0.5 % Basophil % - 0.9 % Lymphocyte, Absolute - 2.3 10^3/mcL Monocyte, Absolute - 0.7 10^3/mcL Eosinophil, Absolute - 0.110^3/mcL Basophil, Absolute - 0.1 10^3/mcL .Estimated Glomerular Filtration Rate (10/20/2024) Estimated Glomerular Filtration Rate - 120 ml/min/1.73sqm .Neutro Absolute (10/20/2024) Neutrophil, Absolute - 8.5 10^3/mcL CBC (10/20/2024) WBC - 11.6 10^3/mcL RBC - 4.10 10^6/mcL Hgb - 9.2 G/dL Hct - 30.3 % MCV - 73.9 fL MCH - 22.5 pg MCHC - 30.5 G/dL RDW - 22.9 % Platelet - 231 10^3/mcL MPV - 9.5 fL CMP (10/20/2024) Glucose Level - 96 mg/dL Sodium Level - 141 mEq/L Potassium Level - 3.9 mEq/L Chloride - 109 mEq/L CO2 - 27 mEq/L Electrolyte Balance - 5.0 mEq/L BUN - 7.0 mg/dL Creatinine Lvl (s) - 0.47 mg/dL BUN/Creatinine Ratio - 14.9 ratio Calcium Lvl - 9.3 mg/dL Total Protein - 6.8 G/dL Albumin Level - 3.4 G/dL Globulin - 3.4 G/dL A/G Ratio - 1.0 ratio Bili Total - 0.40 mg/dL Alk Phos - 139 U/L AST/SGOT - 30 U/L ALT/SGPT - 23 U/L Additional Information VACCINATE! IT SAVES LIVES! Members of the community who have not yet received the COVID-19 vaccine and would like to receive it can visit one of [facility] vaccine clinics. There are many vaccine clinic locations within the [facility]. For locations and available times, please visit [email or web address] It is important to note that some COVID mobile vaccine clinics are held outdoors and may be canceled in rainy or stormy conditions. To learn more about pediatric vaccinations (ages 5-11), we invite you to visit the [facility] webpage. [email or web address] [email or web address] learn more about the COVID-19 vaccine, we invite you to visit the CDC website for a list of frequently asked questions. https://www.cdc.gov/coronavirus/2019-ncov/vaccines/faq.html [facility] [employer] Patient Portal Access Instructions: Stay connected with your healthcare team and access your personal medical information anytime with the [facility] [employer] Patient Portal.If you would like a full copy of your medical records, please contact the [facility] Medical Records Department, Saturday through Saturday between 8a.m. and 4:30p.m. Please follow the directions below to access the portal: 1.Access the email account you provided upon registration to the [facility].2.Look for an invitation email from [facility].3.Open the email and access the invitation link: Accept Invitation to [facility]4.Fill in the required wetzel to create your account. Sign into [email or web address].[email or web address] Score with your username and password that you created in the above steps to stay up to date. You can then view a summary of results, a summary of your visits, and the ability to download your summaries to your computer or send the information securely to a physician. Remember that your healthcare information is confidential, so carefully consider who you will allow to register on the [facility] Patient Portal for access to your information. You can also access the [employer] Patient Portal on the [employer]. Simply click on Health Records under [employer] and then click on the [employer] logo. HOW TO SAFELY DISPOSE OF PRESCRIPTION MEDICATIONS Please use one of the following methods to safely dispose of your unused medications. 1.Use a drug disposal kit: the drug disposal pouch allows you to safely discard your old and unuseddrugs. Ask your nurse to give you one when you are discharged.2.Visit a local take-back location: Many local pharmacies and police departments have programs that collect old and unwanted prescriptiondrugs. Call your local pharmacy or go to http://nooked.[employer]/6O5Vg0m to find one close to you.3.Make use of household items: Use cat litter or old coffee grounds to dispose medications if other options arenot available. Mix your drugs with these household products, seal them in an airtight container andthrow it into the garbage. Call [facility]: [phone] to be sure your drugs can be disposed of in this way. Some medicines may require a different approach.4.Never flush your medications down the toilet. IF YOU HAVE BEEN PRESCRIBED AN OPIOID FOR PAIN If you have been prescribed an opioid (such as hydrocodone, oxycodone or morphine), it is critical to understand the possible side effects and risks of opioid pain medications. Even when taken as directed, opioids can have several side effects including: Tolerance, meaning you might need to take more of a medication for the same pain relief. Nausea, vomiting and/or constipation. Sleepiness, dizziness, dry mouth, confusion, depression or itching. Physical dependence, meaning you have withdrawal symptoms when a medication is stopped, can develop within a few days. KNOW YOUR RESPONSIBILITIES It is important to know exactly how much and how often to take the opioid pain medications you are prescribed. Never take opioids in higher amounts or more often than prescribed. Do not combine opioids with alcohol or other drugs that cause drowsiness, such as benzodiazepines, also known as benzos, including diazepam and alprazolam, muscle relaxants or sleep aids. Never sell or share prescription opioids. This is illegal. Store opioids in a secure place and out of reach of others (including children, family, friends and visitors). The last page of this document has been signed and retained as a CHART COPY. Signatures Patient Education Materials Medication Leaflets My discharge plan and instructions have been reviewed and explained to me and I,CLARISSE PEGUERO understand my current condition and have read and understand these discharge instructions. I have received a written copy of the plan/instructions. If I have questions, I am aware that I should contact my d octor. 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: Date/Time: Relationship to Patient: Witness Name/Signature: [id number] Summary of episode note CLARISSE PEGUERO :1980 Visit Date:10/08/2024 Your Visit Summary Your Diagnosis Adenocarcinoma of sigmoid colon Your Care Team Attending Physician - ROSEANN LUNDBERG MD Primary Care Physician - ABDULKADIR ROSALES PA-C Vitals Temperature (Oral) 98.4 F (36.9 C) Heart Rate (Apical) 69 Respiratory Rate 18 Blood Pressure 101/56 Height 62.99 in (160.0 cm) What to do next Scheduled Follow-Up Appointments Appointment Type When With Where Contact Information StatusGS OV Post Op 10/13/2024 08:15 AM ARLENE HYDE MD [facility] Confirmed INF/OSP Labwork 10/20/2024 08:15 AM EDT Infusion Therapy Confirmed HEM ONC OV Follow Up w/ Active Treatme 10/20/2024 09:00 AM EDT ROSEANN LUNDBERG MD Hematology and Oncology Confirmed INF Chemo: Infusion 240 min (4 hours) 10/20/2024 09:30 AM EDT Infusion Therapy Confirmed INF/OSP Labwork 10/22/2024 12:15 PM EDT Infusion Therapy Confirmed INF Chemo: Infusion Pump Discontinue 15 10/22/2024 12:30 PM EDT Infusion Therapy Confirmed INF/OSP Labwork 10/23/2024 12:15 PM EDT Infusion Therapy Confirmed INF Chemo: Infusion Injection 15 min 10/23/2024 12:30 PM EDT Infusion Therapy Confirmed Medications What How Much When Why Instructions Unchanged herbal/ nutritional product (Probiotic) 1cap by mouth Once a day Unchanged omeprazole (omeprazole 20 mg oral delayed release capsule) 1 cap by mouth Once a day Unchanged ondansetron (Zofran 8 mg oral tablet) 1 tab(s) by mouth Every 8 hours as needed for Nausea/Vomiting Adenocarcinoma of sigmoid colon Allergies ciprofloxacin Insomnia, Nausea, High Blood Pressure, Tachycardia Additional Information VACCINATE! IT SAVES LIVES! Members of the community who have not yet received the COVID-19 vaccine and would like to receive it can visit one of [facility] vaccine clinics. There are many vaccine clinic locations within the [facility]. For locations and available times, please visit [email or web address] It is important to note that some COVID mobile vaccine clinics are held outdoors and may be canceled in rainy or stormy conditions. To learn more about pediatric vaccinations (ages 5-11), we invite you to visit the [facility] webpage. [email or web address] learn more about the COVID-19 vaccine, we invite you to visit the CDC website for a list of frequently asked questions. https://www.cdc.gov/coronavirus/2019-ncov/vaccines/faq.html [facility] Patient Portal Access Instructions: Stay connected with your healthcare team and access your personal medical information anytime with the [facility] Patient Portal.If you would like a full copy of your medical records, please contact the [facility] Medical Records Department, Saturday through Saturday between 8a.m. and 4:30p.m. Please follow the directions below to access the portal: 1.Access the email account you provided upon registration to the [facility].2.Look for an invitation email from [facility].3.Open the email and access the invitation link: Accept Invitation to [facility]4.Fill in the required wetzel to create your account. Sign into www.Friendly Score with your username and password that you created in the above steps to stay up to date. You can then view a summary of results, a summary of your visits, and the ability to download your summaries to your computer or send the information securely to a physician. Remember that your healthcare information is confidential, so carefully consider who you will allow to register on the [facility] Patient Portal for access to your information. You can also access the [facility] [employer] Patient Portal on the [employer]. Simply click on Health Records under [employer] and then click on the [facility] logo. HOW TO SAFELY DISPOSE OF PRESCRIPTION MEDICATIONS Please use one of the following methods to safely dispose of your unused medications. 1.Use a drug disposal kit: the drug disposal pouch allows you to safely discard your old and unuseddrugs. Ask your nurse to give you one when you are discharged.2.Visit a local take-back location: Many local pharmacies and police departments have programs that collect old and unwanted prescriptiondrugs. Call your local pharmacy or go to http://nooked.[employer]/9G3Ec3z to find one close to you.3.Make use of household items: Use cat litter or old coffee grounds to dispose medications if other options arenot available. Mix your drugs with these household products, seal them in an airtight container andthrow it into the garbage. Call [facility]: [phone] to be sure your drugs can be disposed of in this way. Some medicines may require a different approach.4.Never flush your medications down the toilet. IF YOU HAVE BEEN PRESCRIBED AN OPIOID FOR PAIN If you have been prescribed an opioid (such as hydrocodone, oxycodone or morphine), it is critical to understand the possible side effects and risks of opioid pain medications. Even when taken as directed, opioids can have several side effects including: Tolerance, meaning you might need to take more of a medication for the same pain relief. Nausea, vomiting and/or constipation. Sleepiness, dizziness, dry mouth, confusion, depression or itching. Physical dependence, meaning you have withdrawal symptoms when a medication is stopped, can develop within a few days. KNOW YOUR RESPONSIBILITIES It is important to know exactly how much and how often to take the opioid pain medications you are prescribed. Never take opioids in higher amounts or more often than prescribed. Do not combine opioids with alcohol or other drugs that cause drowsiness, such as benzodiazepines, also known as benzos, including diazepam and alprazolam, muscle relaxants or sleep aids. Never sell or share prescription opioids. This is illegal. Store opioids in a secure place and out of reach of others (including children, family, friends and visitors). The last page of this document has been signed and retained as a CHART COPY. Signatures Patient Education Materials Medication Leaflets My discharge plan and instructions have been reviewed and explained to me and ISUDHIR ELLA J understand my current condition and have read and understand these discharge instructions. I have received a written copy of the plan/instructions. If I have questions, I am aware that I should contact my d octor. 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 Tests Performed .Auto Differential .Estimated Glomerular Filtration Rate .Neutro Absolute CBC CMP Your Care Team Attending Physician - ROSEANN LUNDBERG MD Primary Care Physician - ABDULKADIR ROSALES PA-C Vitals Temperature (Oral) 97.9 F (36.6 C) Heart Rate 69 Respiratory Rate 18 Blood Pressure 107/66 Height 62.99 in (160.0 cm) Weight 214.33 lb (97.2 kg) BMI 37.97 What to do next Instructions From Your Doctor You have received the following therapy today: Chemotherapy/Immunotherapy Call your physician if any of the following problems occur: Nausea/Vomiting Mouth Sores Diarrhea Fever Prolonged bleeding or easy bruising Pain or discomfort at the injection site Scheduled Follow-Up Appointments Appointment Type When With Where Contact Information StatusINF/OSP Labwork 10/08/2024 12:15 PM EDT Infusion Therapy Confirmed INF Chemo: Infusion Pump Discontinue 10/08/2024 12:30 PM EDT Infusion Therapy Confirmed INF/OSP Labwork 10/09/2024 12:15 PM EDT Infusion Therapy Confirmed INF Chemo: Infusion Injection 15 min 10/09/2024 12:30 PM EDT Infusion Therapy Confirmed GS OV Post Op 10/13/2024 08:15 AM EDT ARLENE RODRIGEZ MD [facility] Confirmed INF/OSP Labwork 10/20/2024 08:15 AM EDT Infusion Therapy Confirmed HEM ONC OV Follow Up w/ Active Treatme 10/20/2024 09:00 AM EDT ROSEANN LUNDBERG MD [facility] Confirmed INF Chemo: Infusion 240 min (4 hours) 10/20/2024 09:30 AM EDT Infusion Therapy Confirmed INF/OSP Labwork 10/22/2024 12:15 PM EDT Infusion Therapy Confirmed INF Chemo: Infusion Pump Discontinue 10/22/2024 12:30 PM EDT Infusion Therapy Confirmed INF/OSP Labwork 10/23/2024 12:15 PM EDT Infusion Therapy Confirmed INF Chemo: Infusion Injection 15 min 10/23/2024 12:30 PM EDT Infusion Therapy Confirmed Medications What How Much When Why Instructions Unchanged herbal/ nutritional product (Probiotic) 1cap by mouth Once a day Unchanged omeprazole (omeprazole 20 mg oral delayed release capsule) 1 cap by mouth Once a day Unchanged ondansetron (Zofran 8 mg oral tablet) 1 tab(s) by mouth Every 8 hours as needed for Nausea/Vomiting Adenocarcinoma of sigmoid colon Test Results .Auto Differential (10/06/2024) Neutrophil % - 74.8 % Lymphocyte % - 20.0 % Monocyte % - 4.6 % Eosinophil % - 0.4 % Basophil % - 0.2 % Lymphocyte, Absolute - 1.9 10^3/mcL Monocyte, Absolute - 0.4 10^3/mcL Eosinophil, Absolute - 0.010^3/mcL Basophil, Absolute - 0.0 10^3/mcL .Estimated Glomerular Filtration Rate (10/06/2024) Estimated Glomerular Filtration Rate - 116 ml/min/1.73sqm .Neutro Absolute (10/06/2024) Neutrophil, Absolute - 7.2 10^3/mcL CBC (10/06/2024) WBC - 9.6 10^3/mcL RBC - 4.15 10^6/mcL Hgb - 9.2 G/dL Hct - 30.6 % MCV - 73.6 fL MCH - 22.2 pg MCHC- 30.1 G/dL RDW - 22.5 % Platelet - 244 10^3/mcL MPV - 9.2 fL CMP (10/06/2024) Glucose Level - 82 mg/dL Sodium Level - 141 mEq/L Potassium Level - 3.5 mEq/L Chloride - 104 mEq/L CO2 - 30 mEq/L Electrolyte Balance - 7.0 mEq/L BUN - 6.0 mg/dL Creatinine Lvl (s) - 0.54 mg/dL BUN/Creatinine Ratio - 11.1 ratio Calcium Lvl - 9.5 mg/dL Total Protein - 7.2 G/dL Albumin Level - 3.3 G/dL Globulin - 3.9 G/dL A/G Ratio - 0.8 ratio Bili Total - 0.50 mg/dL Alk Phos - 262 U/L AST/SGOT - 44 U/L ALT/SGPT - 113 U/L Allergies ciprofloxacin Insomnia, Nausea, High Blood Pressure, Tachycardia Additional Information VACCINATE! IT SAVES LIVES! Members of the community who have not yet received the COVID-19 vaccine and would like to receive it can visit one of [facility] vaccine clinics. There are many vaccine clinic locations within the [facility]. For locations and available times, please visit [email or web address]/. It is important to note that some COVID mobile vaccine clinics are held outdoors and may be canceled in rainy or stormy conditions. To learn more about pediatric vaccinations (ages 5-11), we invite you to visit the [facility] webpage. https://[email or web address]/[email or web address] [email or web address] learn more about the COVID-19 vaccine, we invite you to visit the CDC website for a list of frequently asked questions. https://www.cdc.gov/coronavirus/2019-ncov/vaccines/faq.html [facility] Patient Portal Access Instructions: Stay connected with your healthcare team and access your personal medical information anytime with the [facility] Patient Portal.If you would like a full copy of your medical records, please contact the [facility] Medical Records Department, Saturday through Saturday between 8a.m. and 4:30p.m. Please follow the directions below to access the portal: 1.Access the email account you provided upon registration to the [facility].2.Look for an invitation email from [facility].3.Open the email and access the invitation link: Accept Invitation to [facility]4.Fill in the required wetzel to create your account. Sign into www.Friendly Score with your username and password that you created in the above steps to stay up to date. You can then view a summary of results, a summary of your visits, and the ability to download your summaries to your computer or send the information securely to a physician. Remember that your healthcare information is confidential, so carefully consider who you will allow to register on the [facility] Patient Portal for access to your information. You can also access the [facility] Patient Portal on the [employer]. Simply click on Health Records under [employer] and then click on the [employer] logo. HOW TO SAFELY DISPOSE OF PRESCRIPTION MEDICATIONS Please use one of the following methods to safely dispose of your unused medications. 1.Use a drug disposal kit: the drug disposal pouch allows you to safely discard your old and unuseddrugs. Ask your nurse to give you one when you are discharged.2.Visit a local take-back location: Many local pharmacies and police departments have programs that collect old and unwanted prescriptiondrugs. Call your local pharmacy or go to http://nooked.[employer]/9T4Nt9x to find one close to you.3.Make use of household items: Use cat litter or old coffee grounds to dispose medications if other options arenot available. Mix your drugs with these household products, seal them in an airtight container andthrow it into the garbage. Call [facility]: [phone] to be sure your drugs can be disposed of in this way. Some medicines may require a different approach.4.Never flush your medications down the toilet. IF YOU HAVE BEEN PRESCRIBED AN OPIOID FOR PAIN If you have been prescribed an opioid (such as hydrocodone, oxycodone or morphine), it is critical to understand the possible side effects and risks of opioid pain medications. Even when taken as directed, opioids can have several side effects including: Tolerance, meaning you might need to take more of a medication for the same pain relief. Nausea, vomiting and/or constipation. Sleepiness, dizziness, dry mouth, confusion, depression or itching. Physical dependence, meaning you have withdrawal symptoms when a medication is stopped, can develop within a few days. KNOW YOUR RESPONSIBILITIES It is important to know exactly how much and how often to take the opioid pain medications you are prescribed. Never take opioids in higher amounts or more often than prescribed. Do not combine opioids with alcohol or other drugs that cause drowsiness, such as benzodiazepines, also known as benzos, including diazepam and alprazolam, muscle relaxants or sleep aids. Never sell or share prescription opioids. This is illegal. Store opioids in a secure place and out of reach of others (including children, family, friends and visitors). The last page of this document has been signed and retained as a CHART COPY. Signatures Patient Education Materials Medication Leaflets My discharge plan and instructions have been reviewed and explained to me and ISUDHIR ELLA J understand my current condition and have read and understand these discharge instructions. I have received a written copy of the plan/instructions. If I have questions, I am aware that I should contact my d octor. 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: Date/Time: Relationship to Patient: Witness Name/Signature: Date[facility]Time: [id number] Note* Rosa Guadarrama RN: SIGN, AUTHOR, PERFORM Event Display: IR Procedure Record Authored Date: [id number] IR Procedure Record Summary Primary Physician: Finalized Date/Time: 09/30/24 13:34:46 Pt. Name: CLARISSE PEGUERO Jude /Sex: 1980 Female Med Rec #: [id number] Physician: Financial #: [id number] Pt. 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 1 Details Time In 09/30/24 13:07:00 09/30/24 13:07:00 09/30/24 13:07:00 Time Out 09/30/24 13:35:00 09/30/24 13:35:00 09/30/24 13:35:00 Procedure/Preference IR Drainage Cath IR Drainage Cath IR Drainage Cath Card Injection for Eval SN Injection for Eval SN Injection for Eval SN Last Modified By: Rosa Guadarrama Jennifer N Schultheis, Jennifer N RN 09/30/24 13:28:35 RN 09/30/24 13:28:35 RN 09/30/24 13:28:35 Entry 4 Case Attendee EDILMA YOON MD Role Performed Assisting Surgeon Details Time In 09/30/24 13:21:00 Time Out 09/30/24 13:35:00 Procedure/Preference IR Drainage Cath Card Injection for Eval SN Last Modified By: Rosa Guadarrama RN 09/30/24 13:28:35 Radiology Procedures- IR Entry 1 Procedure/Preference IR Drainage Cath Actual Procedure drain cath eval Card Injection for Eval SN Primary Procedure Yes Primary Surgeon KENAN JOSE MD Anesthesia/Sedation None Type Additional Procedure Times Start 09/30/24 13:21:00 Stop 09/30/24 13:28:00 Specialty Service SN Radiology Procedure EBL 1 mL Last Modified By: Rosa Guadarrama RN 09/30/24 13:34:10 Radiology Procedure Details - IR Entry 1 Radiology Sedation Case Times Sedation Total Time 0 Radiology - Fluid/Drainage Radiology Contrast Contrast Used? Yes Dose 2 mL Medication CONTRAST ISOVUE 300 100ML 10/BX 1315-35 Radiology Flouroscopy Fluoroscopy Used? Yes Fluoro Dose (mGy) 19.97 Fluoro Time 0.6 min Radiology Local Local Used? No Radiology Procedure Site Site/Location right posterior hip Site Condition No complications Dressing Type Gauze sponge 4 X 4, Technologist Notes drain removal Transparent Last Modified By: Rosa Guadarrama RN 09/30/24 13:34:30 General Case Data - IR Entry 1 Case Information Room IR 17 Case Level IR Level 1 Wound Class None Specialty SN Radiology Procedure ASA Class None Diagnosis Preop Diagnosis pelvic abscess Postop Same As Preop Yes Postop Diagnosis pelvic abscess Last Modified By: Rosa Guadarrama RN 09/30/24 13:16:02 Procedure Case Times- IR Entry 1 Patient In Procedure Patient In OR 09/30/24 13:07:00 Patient Out of OR 09/30/24 13:35:00 Procedure Start/Stop Procedure Start Time 09/30/24 13:21:00 Procedure Stop Time 09/30/24 13:28:00 Last Modified By: Rosa Guadarrama RN 09/30/24 13:28:33 Immediate Post OP Note - IR Entry 1 Immediate Post Yes Procedure Note displayed for Physician to review Closure Technique Closure Technique Other than Primary Last Modified By: Rosa Guadarrama RN 09/30/24 13:15:28 Immediate Post OP Note - IR Signed By: EDILMA YOON MD 09/30/24 13:29 Allergy Information- IR Entry 1 Allergies Reviewed? Yes Allergies Reviewed Patient With Last Modified By: Rosa Guadarrama RN 09/30/24 13:12:42 Radiology Protocols/Time Out- IR Entry 1 Preprocedure Clinician Verifies Correct patient ID When Clinically Confirmation of correct using name & date Indicated side(s) and site(s), or MRN, Accurate Correct diagnostic and procedure, complete radiology tests Informed Consent, H & P available update immediately prior to procedure, if applicable, Clinical team introduction complete OR/Procedure Room/Bedside Time 09/30/24 13:21:00 Clinician Verifies Correct patient identity including EMR & records using name and date or medical record number, Accurate procedure consent form, Correct patient position, Necessary equipment is available, Anticipated non-routine events with surgical team (case duration, estimated blood loss, patient specific concerns)., Amaya patient factors for recovery and management identified with surgical team. When Applicable Confirmation correct Team Members [place] side and site marked, Present for Time Out Relevant images and results are properly labeled and appropriately displayed, Alcohol based prep dry, Double verification of sterility indicators complete Instrument Sterility Procedure IR Drainage Cath Injection for Eval SN Last Modified By: Rosa Guadarrama RN 09/30/24 13:22:27 Skin Prep- IR Entry 1 Procedure IR Drainage Cath Injection for Eval SN Skin Prep Prep Area Hip Side Right By [place] Prep Agents Chloraprep Hair Removal Method N/A Last Modified By: Rosa Guadarrama RN 09/30/24 13:19:39 Patient Positioning- IR Entry 1 Procedure IR Drainage Cath Body Position OP Prone Injection for Eval SN Feet Uncrossed? Yes Pressure Points Yes Checked Last Modified By: Rosa Guadarrama RN 09/30/24 13:24:03 Radiology Procedure Plan - IR Entry 1 Radiology - Nursing Care Plan Outcome Statement The patient Outcome Statement The patient receives demonstrates knowledge Cont. appropriate of the expected medication(s), safely responses to the administered during the operative/invasive perioperative/invasive procedure., The period., The patient is patient's value system, free from signs and lifestyle, ethnicity, symptoms of injury and culture are caused by extraneous considered, respected, objects (equipment, and incorporated in the instrumentation, perioperative plan of sponges, or sharps). care., The patient is free from signs and symptoms of infection., The patient is free from signs and symptoms of injury related to positioning. Radiology - Action Plan Outcomes Met? 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 Rosa Guadarrama principal associate Plan Last Modified By: Rosa Guadarrama RN 09/30/24 13:24:11 Case Comments <None> Finalized By: Rosa Guadarrama RN Document Signatures Signed By: Rosa Guadarrama RN 09/30/24 13:34 [facility] 04-02-2025 Hospital Discharge instructions Patient Education 09/30/2024 13:09:39 Radiology- IR Drain Discharge Instructions (06/27/2023)(CUSTOM) [facility] IR Drain Discharge Instructions Interventional Radiology [facility] Imaging Services [address] [place] [address] Description These descriptions may or may not apply to you. If you no longer have a drain in place please referbelow to Drain Removal Instructions . For Insertion This drain was placed due to a collection of fluid. The drain will stay in place secured by a suture or stitch until the collection of fluid has resolved. To monitor the collection, you will be scheduled for appointments weekly or biweekly in radiology. Radiology will contact you with an appointment time and date. During this appointment the Radiologist will evaluate the drain to see if the collection has decreased or resolved completely. A CAT scan may be ordered for you prior to the evaluation of the drain. For Evaluation Today you had a drainage catheter evaluation. This procedure was done to help your doctor diagnose and treat the signs and symptoms you have been experiencing. These instructions should be followed after your procedure to reduce the chance of experiencing complications. Based on the findings from to day s visit your follow-up plan should have been established before discharge. Please follow the highlighted instructions. Dressing Changes: You may have a dressing (bandage). The dressing is often made of gauze pads held on with tape. Yourdoctor will tell you how often to change it. Change the dressings 1-2 times per week or if saturated. Wash your hands with soap and water. Take off the old dressing from around the drain. Clean the drain site and the skin around it with soap and water. Use gauze or a cotton swab. When the site is dry, put on a new dressing. The way your dressing is put on depends on what kind of drain you have. You will get instructions for your type of drain. When you are finished wash your hands again with soap and water. Check the site for bleeding. Apply pressure to the site if bleeding excessively and call your physician. Keep the site dry at all times. You may shower, but make sure to cover the tube with plastic wrap and tape. Do not soak or submerge site (including swimming pools or hot tubs). At Home Care: This may or may not apply to you When you first get the drain, the fluid could be bloody. The color of the fluid can be a variety ofcolors ranging from green, yellow, white, or clear as the wound heals the output of fluid will decrease and may change in color. How often you empty the drainage bag depends on how much fluid is draining. Empty the bag when it is half full or more often if desired. The doctor may ask you to measure the amount of fluid draining. When emptying the drainage bag, you will need to unscrew the cap to release the contents of the baginto a container to measure the amount. Recording this amount is important to log total output. After measuring the amount, the fluid can be discarded into the toilet. On the drainage bag there is often an accordion which provides suction to withdraw the fluid out ofthe body. It is important to keep the accordion compressed. The picture below shows what your bag may look like as well as the accordion. If the accordion is not compressed it could be because the bag is full and needs to be emptied or that it needs to be compressed to resume suction. PAIN CONTROL: [id number] pain medication should be used for pain or discomfort. Please check with the physician who ordered this procedure for you for their specific recommendations. If your pain is not relieved or becomes more severe, notify the physician who sent you for this procedure. MEDICATION: Please resume on . Contact Interventional Radiology ([phone]) If there is an abrupt reduction in drainage amount or if there is concern of catheter having been pulled or clogged. When to Seek Medical Care You should contact your physician or visit your local emergency room promptly if any of the following occur: Lightheadedness, dizziness, or fainting Infection Rarely, infection at the site where the needle was inserted may occur. Signs and symptoms include afever greater than 101 degrees, chills, redness, warmth, swelling, increased pain, bleeding or pus from the puncture site. Special Instructions Daily Output Log DATE OUTPUT DATE OUTPUT Removal of Drain Description Today you had a drainage catheter removed. The physcian made this decision on multiple factors including fluid output and/or image findings. Dressing Keep your bandage clean and dry. There may be drainage for a few days following removal, this is normal, and the output should decrease to nothing. Replace bandage as needed if it becomes soiled or wet. Bandage may be removed after 48 hours. You may sponge bathe or shower the day after your procedure, ensuring the bandage is covered and remains dry. Do not immerse the incision in water until it is fully healed. Do not swim or use a hot tub until drain site is fully healed as this may cause an infection at the removal site. What to Watch For CALL YOUR DOCTOR OR GO TO THE NEAREST ER IF ANY OF THESE SYMPTOMS OCCUR Fever or shakes and chills Increasing pain, redness, swelling, foul odor or discharge/bleeding at the drain removal site Chest pain, shortness of breath, difficulty breathing, or increased heart rate Dizziness, light headedness or confusion, exhaustion, extreme weakness, sweating, pale/blue skin Persistent cough or vomiting or coughing blood Interventional Radiology Within the first 48 hours of removal please contact [phone] with any questions or concerns. Contact if continued drainage from site after removal. Follow Up Care 09/17/2024 07:10:53 With:ABDULKADIR ROSALES PA-C Address: [address] [place] [address] [place] [address]- [phone] When: Unknown [facility] 04-02-2025 Procedure note Brief IR Post Procedure Note - Outpatient Pre Procedure Dx: Pelvic Abscess Post Procedure Dx: Same Procedure: 1. IR Drainage Catheter Evaluation Acid Plant Helper: Rebeca Cashier Office: Car Anesthesia: None. EBL: Minimal Complications:None Status: Stable Findings: 1. The 16Fr drainage catheter was injected and no identifiable fluid collection or fistula was identified. The catheter was removed successfully. The site was dressed in the usual fashion. Plan: 1. D/c home. Full report to follow. Orders in [employer]. Edilma Yoon MD V/IR Resident, PGY-5 [facility] IR Dept (21/01): [phone] [employer] [id number] [employer] Digitally Signed by EDILMA YOON MD on 09/30/2024 02:27 PM Digitally Signed by KENAN JOSE MD on 09/30/2024 06:17 PM [id number] Evaluation + Plan noteExtracted from: Title:IR Pre-procedure H&P Author:CASIE WEINER PA-C Date:09/30/24 IR PREPROCEDURE H&P UPDATE IF A HISTORY AND PHYSICAL EXAMINATION HAS BEEN COMPLETED PRIOR TO ADMISSION TO THE HOSPITAL, AN UPDATED EXAMINATION MUST BE COMPLETED AND DOCUMENTED WITHIN 24 HOURS AFTER ADMISSION OR REGISTRATION BUT BEFORE A SURGICAL PROCEDURE. I have examined the patient, reviewed the H&P, and there are no changes unless noted below: Patient with minimal output, emptying YLLA bulb of minimal fluid, <10cc, every 2-3 days. The most recent H&P/Office Note was performed on 09/22/2024 and can be found in the [facility] Records ([facility]). Casie Weiner PA-C Interventional Radiology Pager: [phone] IR dept: x [phone] Available on [employer] Appointments Appointment Date:10/06/2024 09:15:00 AM Scheduled Provider: Location:INF Appointment Type:INF/OSP Labwork Appointment Date:10/06/2024 10:00:00 AM Scheduled Provider:SHEA CLAY Location:HEM ONC Appointment Type:HEM ONC OV Follow Up w/LILIYA Active Treat Appointment Date:10/06/2024 10:30:00 AM Scheduled Provider: Location:INF Appointment Type:INF Chemo: Infusion 240 min (4 hours) Appointment Date:10/08/2024 12:15:00 PM Scheduled Provider: Location:INF Appointment Type:INF/OSP Labwork Appointment Date:10/08/2024 12:30:00 PM Scheduled Provider: Location:INF Appointment Type:INF Chemo: Infusion Pump Discontinue 15 Appointment Date:10/09/2024 12:15:00 PM Scheduled Provider: Location:INF Appointment Type:INF/OSP Labwork Appointment Date:10/09/2024 12:30:00 PM Scheduled Provider: Location:INF Appointment Type:INF Chemo: Infusion Injection 15 min Appointment Date:10/13/2024 08:15:00 AM Scheduled Provider:ARLENE RODRIGEZ MD Location:[facility] Appointment Type:GS OV Post Op Appointment Date:10/20/2024 08:15:00 AM Scheduled Provider: Location:INF Appointment Type:INF/OSP Labwork Appointment Date:10/20/2024 09:00:00 AM Scheduled Provider:ROSEANN LUNDBERG MD Location:HEM ONC Appointment Type:HEM ONC OV Follow Up w/ Active Treatme Appointment Date:10/20/2024 09:30:00 AM Scheduled Provider: Location:INF Appointment Type:INF Chemo: Infusion 240 min (4 hours) Appointment Date:10/22/2024 12:15:00 PM Scheduled Provider: Location:INF Appointment Type:INF/OSP Labwork Appointment Date:10/22/2024 12:30:00 PM Scheduled Provider: Location:INF Appointment Type:INF Chemo: Infusion Pump Discontinue 15 Appointment Date:10/23/2024 12:15:00 PM Scheduled Provider: Location:INF Appointment Type:INF/OSP Labwork Appointment Date:10/23/2024 12:30:00 PM Scheduled Provider: Location:INF Appointment Type:INF Chemo: Infusion Injection 15 min Future Scheduled Tests Laboratory* Complete Blood Count 10/06/24 * Complete Blood Count 10/20/24 * Complete Blood Count 11/03/24 * Complete Metabolic Panel 10/06/24 * Complete Metabolic Panel 10/20/24 * Complete Metabolic Panel 11/03/24 * MISC Lab Send Out (Non-Blood Specimens) 07/30/24 Radiology* CT Thorax w/ Contrast 06/17/24 * XR Hip 3-4 Views Bilateral 08/13/24 * CT Abdomen and Pelvis w/ contrast 06/17/24 * US Renal 04/13/24 [facility] 04-02-2025 Note IR Procedure Record Summary Primary Physician: Finalized Date/Time: 09/30/24 13:34:46 Pt. Name: CLARISSE PEGUERO Jude ReaB./Sex: 1980 Female Med Rec #: [id number] Physician: Financial #: [id number] Pt. 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 1 Details Time In 09/30/24 13:07:00 09/30/24 13:07:00 09/30/24 13:07:00 Time Out 09/30/24 13:35:00 09/30/24 13:35:00 09/30/24 13:35:00 Procedure/Preference IR Drainage Cath IR Drainage Cath IR Drainage Cath Card Injection for Eval SN Injection for Eval SN Injection for Eval SN Last Modified By: Rosa Guadarrama Jennifer N Schultheis, Jennifer N RN 09/30/24 13:28:35 RN 09/30/24 13:28:35 RN 09/30/24 13:28:35 Entry 4 Case Attendee EDILMA YOON MD Role Performed Assisting Surgeon Details Time In 09/30/24 13:21:00 Time Out 09/30/24 13:35:00 Procedure/Preference IR Drainage Cath Card Injection for Eval SN Last Modified By: Rosa Guadarrama RN 09/30/24 13:28:35 Radiology Procedures- IR Entry 1 Procedure/Preference IR Drainage Cath Actual Procedure drain cath eval Card Injection for Eval SN Primary Procedure Yes Primary Surgeon KENAN JOSE MD Anesthesia/Sedation None Type Additional Procedure Times Start 09/30/24 13:21:00 Stop 09/30/24 13:28:00 Specialty Service SN Radiology Procedure EBL 1 mL Last Modified By: Rosa Guadarrama RN 09/30/24 13:34:10 Radiology Procedure Details - IR Entry 1 Radiology Sedation Case Times Sedation Total Time 0 Radiology - Fluid/Drainage Radiology Contrast Contrast Used? Yes Dose 2 mL Medication CONTRAST ISOVUE 300 100ML 10/BX 1315-35 Radiology Flouroscopy Fluoroscopy Used? Yes Fluoro Dose (mGy) 19.97 Fluoro Time 0.6 min Radiology Local Local Used? No Radiology Procedure Site Site/Location right posterior hip Site Condition No complications Dressing Type Gauze sponge 4 X 4, Technologist Notes drain removal Transparent Last Modified By: Rosa Guadarrama RN 09/30/24 13:34:30 General Case Data - IR Entry 1 Case Information Room IR 17 Case Level IR Level 1 Wound Class None Specialty SN Radiology Procedure ASA Class None Diagnosis Preop Diagnosis pelvic abscess Postop Same As Preop Yes Postop Diagnosis pelvic abscess Last Modified By: Rosa Guadarrama RN 09/30/24 13:16:02 Procedure Case Times- IR Entry 1 Patient In Procedure Patient In OR 09/30/24 13:07:00 Patient Out of OR 09/30/24 13:35:00 Procedure Start/Stop Procedure Start Time 09/30/24 13:21:00 Procedure Stop Time 09/30/24 13:28:00 Last Modified By: Rosa Guadarrama RN 09/30/24 13:28:33 Immediate Post OP Note - IR Entry 1 Immediate Post Yes Procedure Note displayed for Physician to review Closure Technique Closure Technique Other than Primary Last Modified By: Rosa Guadarrama RN 09/30/24 13:15:28 Immediate Post OP Note - IR Signed By: EDILMA YOON MD 09/30/24 13:29 Allergy Information- IR Entry 1 Allergies Reviewed? Yes Allergies Reviewed Patient With Last Modified By: Rosa Guadarrama RN 09/30/24 13:12:42 Radiology Protocols/Time Out- IR Entry 1 Preprocedure Clinician Verifies Correct patient ID When Clinically Confirmation of correct using name & date Indicated side(s) and site(s), or MRN, Accurate Correct diagnostic and procedure, complete radiology tests Informed Consent, H & P available update immediately prior to procedure, if applicable, Clinical team introduction complete OR/Procedure Room/Bedside Time 09/30/24 13:21:00 Clinician Verifies Correct patient identity including EMR & records using name and date or medical record number, Accurate procedure consent form, Correct patient position, Necessary equipment is available, Anticipated non-routine events with surgical team (case duration, estimated blood loss, patient specific concerns)., Amaya patient factors for recovery and management identified with surgical team. When Applicable Confirmation correct Team Members [place] side and site marked, Present for Time Out Relevant images and results are properly labeled and appropriately displayed, Alcohol based prep dry, Double verification of sterility indicators complete Instrument Sterility Procedure IR Drainage Cath Injection for Eval SN Last Modified By: Rosa Guadarrama RN 09/30/24 13:22:27 Skin Prep- IR Entry 1 Procedure IR Drainage Cath Injection for Eval SN Skin Prep Prep Area Hip Side Right By [place] Prep Agents Chloraprep Hair Removal Method N/A Last Modified By: Rosa Guadarrama RN 09/30/24 13:19:39 Patient Positioning- IR Entry 1 Procedure IR Drainage Cath Body Position OP Prone Injection for Eval SN Feet Uncrossed? Yes Pressure Points Yes Checked Last Modified By: Rosa Guadarrama RN 09/30/24 13:24:03 Radiology Procedure Plan - IR Entry 1 Radiology - Nursing Care Plan Outcome Statement The patient Outcome Statement The patient receives demonstrates knowledge Cont. appropriate of the expected medication(s), safely responses to the administered during the operative/invasive perioperative/invasive procedure., The period., The patient is patient's value system, free from signs and lifestyle, ethnicity, symptoms of injury and culture are caused by extraneous considered, respected, objects (equipment, and incorporated in the instrumentation, perioperative plan of sponges, or sharps). care., The patient is free from signs and symptoms of infection., The patient is free from signs and symptoms of injury related to positioning. Radiology - Action Plan Outcomes Met? 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 Rosa Guadarrama principal associate Plan Last Modified By: Rosa Guadarrama RN 09/30/24 13:24:11 Case Comments Finalized By: Rosa Guadarrama RN Document Signatures Signed By: Rosa Guadarrama RN 09/30/24 13:34 [id number] Summary of episode note Discharge Instructions Thank you for allowing [facility] to assist you with your healthcare needs. The following is importantdischarge information regarding your hospital visit. Your Care Team ABDULKADIR ROSALES PA-C What to do next Scheduled Follow-Up Appointments Appointment Type When With Where Contact Information StatusINF/OSP Labwork 10/06/2024 09:15 AM EDT Infusion Therapy Confirmed HEM ONC OV Follow Up w/FLEXO OPERATOR Active Treat 10/06/2024 10:00 AM EDT SHEA CLAY APRN-PROPOSAL EDITOR [facility] Confirmed INF Chemo: Infusion 240 min (4 hours) 10/06/2024 10:30 AM EDT Infusion Therapy Confirmed INF/OSP Labwork 10/08/2024 12:15 PM EDT Infusion Therapy Confirmed INF Chemo: Infusion Pump Discontinue 15 10/08/2024 12:30 PM EDT Infusion Therapy Confirmed INF/OSP Labwork 10/09/2024 12:15 PM EDT Infusion Therapy Confirmed INF Chemo: Infusion Injection 15 min 10/09/2024 12:30 PM EDT Infusion Therapy Confirmed GS OV Post Op 10/13/2024 08:15 AM EDT ARLENE RODRIGEZ MD [facility] Confirmed INF/OSP Labwork 10/20/2024 08:15 AM EDT Infusion Therapy Confirmed HEM ONC OV Follow Up w/ Active Treatme 10/20/2024 09:00 AM EDT ROSEANN LUNDBERG MD [facility] Confirmed INF Chemo: Infusion 240 min (4 hours) 10/20/2024 09:30 AM EDT Infusion Therapy Confirmed INF/OSP Labwork 10/22/2024 12:15 PM EDT Infusion Therapy Confirmed INF Chemo: Infusion Pump Discontinue 15 10/22/2024 12:30 PM EDT Infusion Therapy Confirmed INF/OSP Labwork 10/23/2024 12:15 PM EDT Infusion Therapy Confirmed INF Chemo: Infusion Injection 15 min 10/23/2024 12:30 PM EDT Infusion Therapy Confirmed Follow Up Appointments Follow Up with ABDULKADIR ROSALES PA-C Where:[address] [place] [address] [place] [address] [phone] The Following Activity and Diet Have Been Ordered for You No qualifying data available. No qualifying data available. The Following Equipment Has Been Ordered for You No qualifying data available. The Following Treatments Have Been Ordered for You Discharge Labs No qualifying data available. Discharge Radiology No qualifying data available. Other Therapies No qualifying data available. Post Acute Orders No qualifying data available. Someone Will Contact You Regarding These Home Health Referrals No home referrals have been ordered for you. No one will call you. Allergies ciprofloxacin Insomnia, Nausea, High Blood Pressure, Tachycardia Medications Please ask your primary doctor or pharmacist before taking any other medication not listed, including over the counter drugs, herbal medications, vitamins and or supplements as they may interact withyour home medications. What How Much When Why Instructions Last Dose Unchanged herbal/ nutritional product (Probiotic) 1cap by mouth Once a day Unchanged omeprazole (omeprazole 20 mg oral delayed release capsule) 1 cap by mouth Once a day Unchanged ondansetron (Zofran 8 mg oral tablet) 1 tab(s) by mouth Every 8 hours as needed for Nausea/Vomiting Adenocarcinoma of sigmoid colon Please take this list to your next doctor s visit. Bring all medications you take, including over the counter medications, herbals and other supplements with you to your doctor s visit. Patients and families are reminded to discard old lists and to update any records with all medication providers or retail pharmacies. Education Materials [facility] Drain Discharge Instructions Interventional Radiology [facility] [address] [place] [address] Description These descriptions may or may not apply to you. If you no longer have a drain in place please referbelow to Drain Removal Instructions . For Insertion This drain was placed due to a collection of fluid. The drain will stay in place secured by a suture or stitch until the collection of fluid has resolved. To monitor the collection, you will be scheduled for appointments weekly or biweekly in radiology. Radiology will contact you with an appointment time and date. During this appointment the Radiologist will evaluate the drain to see if the collection has decreased or resolved completely. A CAT scan may be ordered for you prior to the evaluation of the drain. For Evaluation Today you had a drainage catheter evaluation. This procedure was done to help your doctor diagnose and treat the signs and symptoms you have been experiencing. These instructions should be followed after your procedure to reduce the chance of experiencing complications. Based on the findings from to day s visit your follow-up plan should have been established before discharge. Please follow the highlighted instructions. Dressing Changes: You may have a dressing (bandage). The dressing is often made of gauze pads held on with tape. Yourdoctor will tell you how often to change it. Change the dressings 1-2 times per week or if saturated. Wash your hands with soap and water. Take off the old dressing from around the drain. Clean the drain site and the skin around it with soap and water. Use gauze or a cotton swab. When the site is dry, put on a new dressing. The way your dressing is put on depends on what kind of drain you have. You will get instructions for your type of drain. When you are finished wash your hands again with soap and water. Check the site for bleeding. Apply pressure to the site if bleeding excessively and call your physician. Keep the site dry at all times. You may shower, but make sure to cover the tube with plastic wrap and tape. Do not soak or submerge site (including swimming pools or hot tubs). At Home Care: This may or may not apply to you When you first get the drain, the fluid could be bloody. The color of the fluid can be a variety ofcolors ranging from green, yellow, white, or clear as the wound heals the output of fluid will decrease and may change in color. How often you empty the drainage bag depends on how much fluid is draining. Empty the bag when it is half full or more often if desired. The doctor may ask you to measure the amount of fluid draining. When emptying the drainage bag, you will need to unscrew the cap to release the contents of the baginto a container to measure the amount. Recording this amount is important to log total output. After measuring the amount, the fluid can be discarded into the toilet. On the drainage bag there is often an accordion which provides suction to withdraw the fluid out ofthe body. It is important to keep the accordion compressed. The picture below shows what your bag may look like as well as the accordion. If the accordion is not compressed it could be because the bag is full and needs to be emptied or that it needs to be compressed to resume suction. PAIN CONTROL: [id number] pain medication should be used for pain or discomfort. Please check with the physician who ordered this procedure for you for their specific recommendations. If your pain is not relieved or becomes more severe, notify the physician who sent you for this procedure. MEDICATION: Please resume on . Contact Interventional Radiology ([phone]) If there is an abrupt reduction in drainage amount or if there is concern of catheter having been pulled or clogged. When to Seek Medical Care You should contact your physician or visit your local emergency room promptly if any of the following occur: Lightheadedness, dizziness, or fainting Infection Rarely, infection at the site where the needle was inserted may occur. Signs and symptoms include afever greater than 101 degrees, chills, redness, warmth, swelling, increased pain, bleeding or pus from the puncture site. Special Instructions Daily Output Log DATE OUTPUT DATE OUTPUT Removal of Drain Description Today you had a drainage catheter removed. The physcian made this decision on multiple factors including fluid output and/or image findings. Dressing Keep your bandage clean and dry. There may be drainage for a few days following removal, this is normal, and the output should decrease to nothing. Replace bandage as needed if it becomes soiled or wet. Bandage may be removed after 48 hours. You may sponge bathe or shower the day after your procedure, ensuring the bandage is covered and remains dry. Do not immerse the incision in water until it is fully healed. Do not swim or use a hot tub until drain site is fully healed as this may cause an infection at the removal site. What to Watch For CALL YOUR DOCTOR OR GO TO THE NEAREST ER IF ANY OF THESE SYMPTOMS OCCUR Fever or shakes and chills Increasing pain, redness, swelling, foul odor or discharge/bleeding at the drain removal site Chest pain, shortness of breath, difficulty breathing, or increased heart rate Dizziness, light headedness or confusion, exhaustion, extreme weakness, sweating, pale/blue skin Persistent cough or vomiting or coughing blood Interventional Radiology Within the first 48 hours of removal please contact [phone] with any questions or concerns. Contact if continued drainage from site after removal. Additional Information VACCINATE! IT SAVES LIVES! Members of the community who have not yet received the COVID-19 vaccine and would like to receive it can visit one of [facility] vaccine clinics. There are many vaccine clinic locations within the [facility]. For locations and available times, please visit [email or web address] It is important to note that some COVID mobile vaccine clinics are held outdoors and may be canceled in rainy or stormy conditions. To learn more about pediatric vaccinations (ages 5-11), we invite you to visit the [facility] webpage. [email or web address]/[email or web address] [email or web address].htmlTo learn more about the COVID-19 vaccine, we invite you to visit the CDC website for a list of frequently asked questions.https://www.cdc.gov/coronavirus/2019-ncov/vaccines/faq.html [employer] Patient Portal Access Instructions: Stay connected with your healthcare team and access your personal medical information anytime with the [employer] Patient Portal. Please follow the directions below to create your [employer] account: 1.Access the email account you provided upon registration to the hospital/physician office.2.Look for an invitation email from [facility].3.Open the email and access the invitation link: AcceptInvitation to [employer].4.Fill in the required wetzel to create your account. To access your account, visit [employer]/My [employer] WorksOneChart. Click the blue button labeled Access Patient Portal and then log in with the username and password that you created in the steps above. You will be able to view your test results, lab results, a summary of your visits, upcoming appointments and more. There is also a convenient messaging option where you can send secure messages to your p Styl[employer]. In addition, you will have the ability to download any documents or summaries to your computer and/or send the information securely to a physician. Remember that your healthcare information is confidential, so carefully consider who you will allowto register on the [facility] Patient Portal for access to your information. You can also access the [facility] Patient Portal on the [employer] patrizia. Simply click on Patient Portal and then log into your account. If you would like to receive a full copy of your medical records, please contact the [facility] Medical Records Department by calling [phone], Saturday through Saturday between 8 a.m. and 4:30 p.m. HOW TO SAFELY DISPOSE OF PRESCRIPTION MEDICATIONS Please use one of the following methods to safely dispose of your unused medications. 1.Use a drug disposal kit: the drug disposal pouch allows you to safely discard your old and unuseddrugs. Ask your nurse to give you one when you are discharged.2.Visit a local take-back location: Many local pharmacies and police departments have programs that collect old and unwanted prescriptiondrugs. Call your local pharmacy or go to http://nooked.[employer] Tal[employer] Track/0W1Th9h to find one close to you.3.Make use of household items: Use cat litter or old coffee grounds to dispose medications if other options arenot available. Mix your drugs with these household products, seal them in an airtight container andthrow it into the garbage. Call [facility]: [phone] to be sure your drugs can be disposed of in this way. Some medicines may require a different approach.4.Never flush your medications down the toilet. IF YOU HAVE BEEN PRESCRIBED AN OPIOID FOR PAIN If you have been prescribed an opioid (such as hydrocodone, oxycodone or morphine), it is critical to understand the possible side effects and risks of opioid pain medications. Even when taken as directed, opioids can have several side effects including: Tolerance, meaning you might need to take more of a medication for the same pain relief. Nausea, vomiting and/or constipation. Sleepiness, dizziness, dry mouth, confusion, depression or itching. Physical dependence, meaning you have withdrawal symptoms when a medication is stopped, can develop within a few days. KNOW YOUR RESPONSIBILITIES It is important to know exactly how much and how often to take the opioid pain medications you are prescribed. Never take opioids in higher amounts or more often than prescribed. Do not combine opioids with alcohol or other drugs that cause drowsiness, such as benzodiazepines, also known as benzos, including diazepam and alprazolam, muscle relaxants or sleep aids. Never sell or share prescription opioids. This is illegal. Store opioids in a secure place and out of reach of others (including children, family, friends and visitors). The last page of this document has been signed and retained as a CHART COPY. Signatures Patient Education Materials Radiology- IR Drain Discharge Instructions (06/27/2023)(CUSTOM) Medication Leaflets My discharge plan and instructions have been reviewed and explained to me and SUDHIR Harrell ELLA J understand my current condition and have read and understand these discharge instructions. I have received a written copy of the plan/instructions. If I have questions, I am aware that I should contact my d octor. 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: Date/Time: Relationship to Patient: Witness Name/Signature: Date/Time: [id number] History and physical note IR PREPROCEDURE H&P UPDATE IF A HISTORY AND PHYSICAL EXAMINATION HAS BEEN COMPLETED PRIOR TO ADMISSION TO THE HOSPITAL, AN UPDATED EXAMINATION MUST BE COMPLETED AND DOCUMENTED WITHIN 24 HOURS AFTER ADMISSION OR REGISTRATION BUT BEFORE A SURGICAL PROCEDURE. I have examined the patient, reviewed the H&P, and there are no changes unless noted below: Patient with minimal output, emptying LYLA bulb of minimal fluid, <10cc, every 2-3 days. The most recent H&P/Office Note was performed on 09/22/2024 and can be found in the [facility] ([place]). Casie Weiner PA-C Interventional Radiology Pager: [phone] IR dept: [phone] Available on [employer] Digitally Signed by CASIE WEINER PA-C on 09/30/2024 12:37 PM Digitally Signed by KENAN JOSE MD on 09/30/2024 06:18 PM [facility] [id number] Summary of episode note CLARISSE PEGUERO :1980 Visit Date:09/24/2024 Your Visit Summary Your Diagnosis Adenocarcinoma of sigmoid colon Your Care Team Attending Physician - ROSEANN LUNDBERG MD Primary Care Physician - ABDULKADIR ROSALES PA-C Vitals Temperature (Oral) 98.2 F (36.8 C) Heart Rate 80 Blood Pressure 115/66 Height 62.99 in (160.0 cm) What to do next Instructions From Your Doctor You have received the following therapy today: Chemotherapy/Immunotherapy Call your physician if any of the following problems occur: Nausea/Vomiting Mouth Sores Diarrhea Fever Prolonged bleeding or easy bruising Pain or discomfort at the injection site Scheduled Follow-Up Appointments Appointment Type When With Where Contact Information StatusINF Chemo: Infusion Pump Discontinue 09/24/2024 01:30 PM EDT Infusion Therapy Confirmed IR Drainage Cath Injection for Eval 09/30/2024 01:00 PM EDT IR Confirmed INF/OSP Labwork 10/06/2024 09:15 AM EDT Infusion Therapy Confirmed HEM ONC OV Follow Up w/LILIYA Active Treat 10/06/2024 10:00 AM EDT SHEA CLAY APRN-PROPOSAL EDITOR [facility] Confirmed INF Chemo: Infusion 240 min (4 hours) 10/06/2024 10:30 AM EDT Infusion Therapy Confirmed INF/OSP Labwork 10/08/2024 12:15 PM EDT Infusion Therapy Confirmed INF Chemo: Infusion Pump Discontinue 10/08/2024 12:30 PM EDT Infusion Therapy Confirmed INF/OSP Labwork 10/09/2024 12:15 PM EDT Infusion Therapy Confirmed INF Chemo: Infusion Injection 15 min 10/09/2024 12:30 PM EDT Infusion Therapy Confirmed GS OV Post Op 10/13/2024 08:15 AM EDT ARLENE RODRIGEZ MD [facility] Confirmed INF/OSP Labwork 10/20/2024 08:15 AM EDT Infusion Therapy Confirmed HEM ONC OV Follow Up w/ Active Treatme 10/20/2024 09:00 AM EDT ROSEANN LUNDBERG MD [facility] Confirmed INF Chemo: Infusion 240 min (4 hours) 10/20/2024 09:30 AM EDT Infusion Therapy Confirmed INF/OSP Labwork 10/22/2024 12:15 PM EDT Infusion Therapy Confirmed INF Chemo: Infusion Pump Discontinue 10/22/2024 12:30 PM EDT Infusion Therapy Confirmed INF/OSP Labwork 10/23/2024 12:15 PM EDT Infusion Therapy Confirmed INF Chemo: Infusion Injection 15 min 10/23/2024 12:30 PM EDT Infusion Therapy Confirmed Medications What How Much When Why Instructions Unchanged herbal/ nutritional product (Probiotic) 1cap by mouth Once a day Unchanged omeprazole (omeprazole 20 mg oral delayed release capsule) 1 cap by mouth Once a day Unchanged ondansetron (Zofran 8 mg oral tablet) 1 tab(s) by mouth Every 8 hours as needed for Nausea/Vomiting Adenocarcinoma of sigmoid colon Allergies ciprofloxacin Insomnia, Nausea, High Blood Pressure, Tachycardia Additional Information VACCINATE! IT SAVES LIVES! Members of the community who have not yet received the COVID-19 vaccine and would like to receive it can visit one of [facility] vaccine clinics. There are many vaccine clinic locations within the [facility]. For locations and available times, please visit [email or web address]/. It is important to note that some COVID mobile vaccine clinics are held outdoors and may be canceled in rainy or stormy conditions. To learn more about pediatric vaccinations (ages 5-11), we invite you to visit the [employer] webpage. [email or web address]/[email or web address] [email or web address] learn more about the COVID-19 vaccine, we invite you to visit the CDC website for a list of frequently asked questions. https://www.cdc.gov/coronavirus/2019-ncov/vaccines/faq.html [facility] Patient Portal Access Instructions: Stay connected with your healthcare team and access your personal medical information anytime with the [facility] Patient Portal.If you would like a full copy of your medical records, please contact the [facility] Medical Records Department, Saturday through Saturday between 8a.m. and 4:30p.m. Please follow the directions below to access the portal: 1.Access the email account you provided upon registration to the hospital.2.Look for an invitation email from [facility].3.Open the email and access the invitation link: Accept Invitation to [facility]4.Fill in the required wetzel to create your account. Sign into www.Friend[employer] with your username and password that you created in the above steps to stay up to date. You can then view a summary of results, a summary of your visits, and the ability to download your summaries to your computer or send the information securely to a physician. Remember that your healthcare information is confidential, so carefully consider who you will allow to register on the [employer] Patient Portal for access to your information. You can also access the [employer] Patient Portal on the [employer] patrizia. Simply click on Health Records under [employer] and then click on the [employer] Works logo. HOW TO SAFELY DISPOSE OF PRESCRIPTION MEDICATIONS Please use one of the following methods to safely dispose of your unused medications. 1.Use a drug disposal kit: the drug disposal pouch allows you to safely discard your old and unuseddrugs. Ask your nurse to give you one when you are discharged.2.Visit a local take-back location: Many local pharmacies and police departments have programs that collect old and unwanted prescriptiondrugs. Call your local pharmacy or go to http://nooked.[employer] Tal[employer] Track/2C4Sn1n to find one close to you.3.Make use of household items: Use cat litter or old coffee grounds to dispose medications if other options arenot available. Mix your drugs with these household products, seal them in an airtight container andthrow it into the garbage. Call [facility]: [phone] to be sure your drugs can be disposed of in this way. Some medicines may require a different approach.4.Never flush your medications down the toilet. IF YOU HAVE BEEN PRESCRIBED AN OPIOID FOR PAIN If you have been prescribed an opioid (such as hydrocodone, oxycodone or morphine), it is critical to understand the possible side effects and risks of opioid pain medications. Even when taken as directed, opioids can have several side effects including: Tolerance, meaning you might need to take more of a medication for the same pain relief. Nausea, vomiting and/or constipation. Sleepiness, dizziness, dry mouth, confusion, depression or itching. Physical dependence, meaning you have withdrawal symptoms when a medication is stopped, can develop within a few days. KNOW YOUR RESPONSIBILITIES It is important to know exactly how much and how often to take the opioid pain medications you are prescribed. Never take opioids in higher amounts or more often than prescribed. Do not combine opioids with alcohol or other drugs that cause drowsiness, such as benzodiazepines, also known as benzos, including diazepam and alprazolam, muscle relaxants or sleep aids. Never sell or share prescription opioids. This is illegal. Store opioids in a secure place and out of reach of others (including children, family, friends and visitors). The last page of this document has been signed and retained as a CHART COPY. Signatures Patient Education Materials Medication Leaflets My discharge plan and instructions have been reviewed and explained to me and I,CLARISSE PEGUERO understand my current condition and have read and understand these discharge instructions. I have received a written copy of the plan/instructions. If I have questions, I am aware that I should contact my d octor. 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 Tests Performed .Auto Differential .Estimated Glomerular Filtration Rate .Neutro Absolute CBC CEA CMP Your Care Team Attending Physician - ROSEANN LUNDBERG MD Primary Care Physician - ABDULKADIR ROSALES PA-C Vitals Temperature (Oral) 98.4 F (36.9 C) Heart Rate (Apical) 77 Respiratory Rate 20 Blood Pressure 98/51 Height 62.99 in (160.0 cm) Weight 218.07 lb (98.9 kg) BMI 38.63 What to do next Instructions From Your Doctor You have received the following therapy today: Chemotherapy/Immunotherapy Call your physician if any of the following problems occur: Nausea/Vomiting Mouth Sores Diarrhea Fever Prolonged bleeding or easy bruising Pain or discomfort at the injection site Scheduled Follow-Up Appointments Appointment Type When With Where Contact Information StatusINF/OSP Labwork 09/24/2024 01:15 PM EDT Infusion Therapy Confirmed INF Chemo: Infusion Pump Discontinue 15 09/24/2024 01:30 PM EDT Infusion Therapy Confirmed IR Drainage Cath Injection for Eval 09/30/2024 01:00 PM EDT IR Confirmed HEM ONC OV Follow Up w/FLEXO OPERATOR Active Treat 10/06/2024 10:00 AM EDT SHEA CLAY APRN-PROPOSAL EDITOR [facility] Confirmed GS OV Post Op 10/13/2024 08:15 AM EDT ARLENE RODRIGEZ MD [facility] Confirmed HEM ONC OV Follow Up w/ Active Treatme 10/20/2024 09:00 AM EDT ROSEANN LUNDBERG MD [facility] Confirmed Medications What How Much When Why Instructions Unchanged herbal/ nutritional product (Probiotic) 1cap by mouth Once a day Unchanged omeprazole (omeprazole 20 mg oral delayed release capsule) 1 cap by mouth Once a day Unchanged ondansetron (Zofran 8 mg oral tablet) 1 tab(s) by mouth Every 8 hours as needed for Nausea/Vomiting Adenocarcinoma of sigmoid colon Test Results .Auto Differential (09/22/2024) Neutrophil % - 63.9 % Lymphocyte % - 25.8 % Monocyte % - 7.8 % Eosinophil % - 2.0 % Basophil % - 0.5 % Lymphocyte, Absolute - 1.1 10^3/mcL Monocyte, Absolute - 0.3 10^3/mcL Eosinophil, Absolute - 0.110^3/mcL Basophil, Absolute - 0.0 10^3/mcL .Estimated Glomerular Filtration Rate (09/22/2024) Estimated Glomerular Filtration Rate - >120 ml/min/1.73sqm .Neutro Absolute (09/22/2024) Neutrophil, Absolute - 2.8 10^3/mcL CBC (09/22/2024) WBC - 4.3 10^3/mcL RBC - 3.64 10^6/mcL Hgb - 8.3 G/dL Hct - 26.7 % MCV - 73.4 fL MCH - 22.8 pg MCHC- 31.0 G/dL RDW - 23.0 % Platelet - 326 10^3/mcL MPV - 8.0 fL CEA (09/22/2024) CEA - 417.9 ng/mL CMP (09/22/2024) Glucose Level - 100 mg/dL Sodium Level - 139 mEq/L Potassium Level - 3.8 mEq/L Chloride - 105 mEq/LCO2 - 29 mEq/L Electrolyte Balance - 5.0 mEq/L BUN - 10.0 mg/dL Creatinine Lvl (s) - 0.44 mg/dL BUN/Creatinine Ratio - 22.7 ratio Calcium Lvl - 8.6 mg/dL Total Protein - 7.1 G/dL Albumin Level - 2.9 G/dL Globulin - 4.2 G/dL A/G Ratio - 0.7 ratio Bili Total - 0.50 mg/dL Alk Phos - 78 U/L AST/SGOT - 16 U/L ALT/SGPT - 12 U/L Allergies ciprofloxacin Insomnia, Nausea, High Blood Pressure, Tachycardia Additional Information VACCINATE! IT SAVES LIVES! Members of the community who have not yet received the COVID-19 vaccine and would like to receive it can visit one of [facility] vaccine clinics. There are many vaccine clinic locations within the [facility]. For locations and available times, please visit www.[email or web address]/. It is important to note that some COVID mobile vaccine clinics are held outdoors and may be canceled in rainy or stormy conditions. To learn more about pediatric vaccinations (ages 5-11), we invite you to visit the [facility] webpage. https://[email or web address]/pages/[email or web address]-Hgvly-Piu stions.htmlTo learn more about the COVID-19 vaccine, we invite you to visit the CDC website for a list of frequently asked questions. https://www.cdc.gov/coronavirus/2019-ncov/vaccines/faq.html [employer] Patient Portal Access Instructions: Stay connected with your healthcare team and access your personal medical information anytime with the [facility] Patient Portal.If you would like a full copy of your medical records, please contact the [facility] Medical Records Department, Saturday through Saturday between 8a.m. and 4:30p.m. Please follow the directions below to access the portal: 1.Access the email account you provided upon registration to the hospital.2.Look for an invitation email from [facility].3.Open the email and access the invitation link: Accept Invitation to [facility]4.Fill in the required wetzel to create your account. Sign into www.Friend[employer] Score with your username and password that you created in the above steps to stay up to date. You can then view a summary of results, a summary of your visits, and the ability to download your summaries to your computer or send the information securely to a physician. Remember that your healthcare information is confidential, so carefully consider who you will allow to register on the [employer] Patient Portal for access to your information. You can also access the [employer] Patient Portal on the [employer]. Simply click on Health Records under [employer] and then click on the [employer] logo. HOW TO SAFELY DISPOSE OF PRESCRIPTION MEDICATIONS Please use one of the following methods to safely dispose of your unused medications. 1.Use a drug disposal kit: the drug disposal pouch allows you to safely discard your old and unuseddrugs. Ask your nurse to give you one when you are discharged.2.Visit a local take-back location: Many local pharmacies and police departments have programs that collect old and unwanted prescriptiondrugs. Call your local pharmacy or go to http://nooked.[employer] Track/1Y1Qg1w to find one close to you.3.Make use of household items: Use cat litter or old coffee grounds to dispose medications if other options arenot available. Mix your drugs with these household products, seal them in an airtight container andthrow it into the garbage. Call [facility]: [phone] to be sure your drugs can be disposed of in this way. Some medicines may require a different approach.4.Never flush your medications down the toilet. IF YOU HAVE BEEN PRESCRIBED AN OPIOID FOR PAIN If you have been prescribed an opioid (such as hydrocodone, oxycodone or morphine), it is critical to understand the possible side effects and risks of opioid pain medications. Even when taken as directed, opioids can have several side effects including: Tolerance, meaning you might need to take more of a medication for the same pain relief. Nausea, vomiting and/or constipation. Sleepiness, dizziness, dry mouth, confusion, depression or itching. Physical dependence, meaning you have withdrawal symptoms when a medication is stopped, can develop within a few days. KNOW YOUR RESPONSIBILITIES It is important to know exactly how much and how often to take the opioid pain medications you are prescribed. Never take opioids in higher amounts or more often than prescribed. Do not combine opioids with alcohol or other drugs that cause drowsiness, such as benzodiazepines, also known as benzos, including diazepam and alprazolam, muscle relaxants or sleep aids. Never sell or share prescription opioids. This is illegal. Store opioids in a secure place and out of reach of others (including children, family, friends and visitors). The last page of this document has been signed and retained as a CHART COPY. Signatures Patient Education Materials Medication Leaflets My discharge plan and instructions have been reviewed and explained to me and I,CLARISSE PEGUERO understand my current condition and have read and understand these discharge instructions. I have received a written copy of the plan/instructions. If I have questions, I am aware that I should contact my d octor. 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: Date/Time: Relationship to Patient: Witness Name/Signature: Date/Time[id number] Note* MELA Meier Juan J: SIGN, AUTHOR, PERFORM Event Display: IR Procedure Record Authored Date: [id number] IR Procedure Record Summary Primary Physician: IRMA SHAH DO Finalized Date/Time: 09/16/24 14:39:03 Pt. Name: CLARISSE PEGUERO./Sex: 1980 Female Med Rec #: [id number] Physician: Financial #: [id number] Pt. Type: O Room/Bed: / Admit/Disch: 09/16/24 11:51:00 - Institution: Allergies identified in patient's electronic medical record at time of printing on 09/16/24 Entry 1 Substance ciprofloxacin Reaction Type Side Effect Last Modified By: MELA Hamm 09/16/24 12:44:55 Case Attendance- IR Entry 1 Entry 2 Entry 3 Case Attendee IRMA SHAH, Substitute Crossing Guard Aliza Arias Substitute Crossing Guard Role Performed Primary Surgeon Scrub Technologist Circulating Technologist Details Time In 09/16/24 14:15:00 09/16/24 14:00:00 09/16/24 14:00:00 Time Out 09/16/24 14:37:00 09/16/24 14:37:00 09/16/24 14:37:00 Procedure/Preference IR Drainage Cath IR Drainage Cath IR Drainage Cath Card Injection for Eval SN Injection for Eval SN Injection for Eval SN Last Modified By: MELA Meier RN Corey Snider, RN Corey 09/16/24 14:28:45 09/16/24 14:26:00 09/16/24 14:26:00 Entry 4 Entry 5 Case Attendee Josefina Peacock RN Corey Role Performed Circulating Technologist Procedure Nurse Details Time In 09/16/24 14:00:00 09/16/24 14:00:00 Time Out 09/16/24 14:37:00 09/16/24 14:37:00 Procedure/Preference IR Drainage Cath IR Drainage Cath Card Injection for Eval SN Injection for Eval SN Last Modified By: MELA Meier, MELA Arita 09/16/24 14:26:00 09/16/24 14:26:00 Radiology Procedures- IR Entry 1 Procedure/Preference IR Drainage Cath Actual Procedure IR DRAINAGE CATH Card Injection for Eval SN INJECTION FOR EVAL Primary Procedure Yes Primary Surgeon JODI TREVINO MD Anesthesia/Sedation None Type Additional Procedure Times Start 09/16/24 14:15:00 Stop 09/16/24 14:25:00 Specialty Service SN Radiology Procedure EBL 0 mL Last Modified By: MELA Meier 09/16/24 14:26:06 Radiology Procedure Details - IR Entry 1 Radiology Sedation Case Times Sedation Total Time 0 Radiology - Fluid/Drainage Radiology Contrast Contrast Used? Yes Dose 10 mL Medication CONTRAST ISOVUE 300/30ML 10/CA 730953 Radiology Flouroscopy Fluoroscopy Used? Yes Fluoro Dose (mGy) 447.93 Fluoro Time 0.8min Radiology Local Local Used? No Radiology Procedure Site Site/Location right pelvis Site Condition No complications Dressing Type Gauze sponge 4 X 4, Technologist Notes drain eval Transparent Last Modified By: MELA Meier 09/16/24 14:28:26 General Case Data - IR Entry 1 Case Information Room AH IR 18 Case Level IR Level 1 Wound Class None Specialty SN Radiology Procedure ASA Class None Diagnosis Preop Diagnosis abscess sp drain Postop Same As Preop Yes Postop Diagnosis abscess sp drain Last Modified By: MELA Meier 09/16/24 14:10:44 Procedure Case Times- IR Entry 1 Patient In Procedure Patient In OR 09/16/24 14:00:00 Patient Out of OR 09/16/24 14:36:00 Procedure Start/Stop Procedure Start Time 09/16/24 14:15:00 Procedure Stop Time 09/16/24 14:25:00 Last Modified By: MELA Meier 09/16/24 14:36:16 Immediate Post OP Note - IR Entry 1 Immediate Post Yes Procedure Note displayed for Physician to review Closure Technique Closure Technique Other than Primary Last Modified By: MELA Meier 09/16/24 14:10:10 Immediate Post OP Note - IR Signed By: IRMA SHAH DO 09/16/24 14:38 Allergy Information- IR Entry 1 Allergies Reviewed? Yes Allergies Reviewed Patient With Last Modified By: MELA Meier 09/16/24 14:02:27 Radiology Protocols/Time Out- IR Entry 1 Preprocedure Clinician Verifies Correct patient ID When Clinically Confirmation of correct using name & date Indicated side(s) and site(s), or MRN, Accurate Correct diagnostic and procedure, complete radiology tests Informed Consent, H & P available, Required update immediately blood products, prior to procedure, if implants, devices applicable, Clinical and/or special team introduction equipment available complete OR/Procedure Room/Bedside Time 09/16/24 14:15:00 Clinician Verifies Correct patient identity including EMR & records using name and date or medical record number, Accurate procedure consent form, Correct patient position, Necessary equipment is available, Anticipated non-routine events with surgical team (case duration, estimated blood loss, patient specific concerns)., Amaya patient factors for recovery and management identified with surgical team. When Applicable Confirmation correct Team Members IRMA SHAH DO, side and site marked, Present for Time Out Abraham Grimm, Relevant images and Fierstos, Aliza R Rad results are properly Tech, Josefina Peacock labeled and M.Hardeep RN Corey appropriately displayed, Alcohol based prep dry, Double verification of sterility indicators complete Instrument Sterility Team Members IRMA SHAH DO, Verifying Sterility Abraham Grimm Manju Procedure IR Drainage Cath Injection for Eval SN Last Modified By: MELA Meier 09/16/24 14:15:56 Skin Prep- IR Entry 1 Procedure IR Drainage Cath Injection for Eval SN Skin Prep Prep Area Hip Side Posterior, Right By Abraham Grimm Manju Prep Agents Chloraprep Hair Removal Method N/A Last Modified By: MELA Meier 09/16/24 14:09:52 Patient Positioning- IR Entry 1 Procedure IR Drainage Cath Body Position OP Prone Injection for Eval SN Feet Uncrossed? Yes Pressure Points Yes Checked Last Modified By: MELA Meier 09/16/24 14:10:06 Radiology Procedure Plan - IR Entry 1 Radiology - Nursing Care Plan Outcome Statement The patient Outcome Statement The patient receives demonstrates knowledge Cont. appropriate of the expected medication(s), safely responses to the administered during the operative/invasive perioperative/invasive procedure., The period., The patient is patient's value system, free from signs and lifestyle, ethnicity, symptoms of injury and culture are caused by extraneous considered, respected, objects (equipment, and incorporated in the instrumentation, perioperative plan of sponges, or sharps). care., The patient is free from signs and symptoms of infection., The patient is free from signs and symptoms of injury related to positioning. Radiology - Action Plan Outcomes Met? 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 MELA Meier Completing Procedure Plan Last Modified By: MELA Meier 09/16/24 14:10:28 Case Comments <None> Finalized By: MELA Meier Document Signatures Signed By: MELA Meier 09/16/24 14:39 [facility] 03-19-2025 Hospital Discharge instructions Patient Education 09/16/2024 14:19:12 Radiology- Procedure/Biopsy 04/10/2024 (CUSTOM) [facility] Radiology Procedure/Biopsy Discharge Instructions Interventional Radiology [facility] [address] [place] [address] Today, you had a drain evaluation . This procedure/biopsy was done to help your doctor diagnose and treat the signs and symptoms you have been e xperiencing. These instructions should be followed after your procedure to reduce the chance of experiencing complications. Please follow the instructions below to reduce the chance of experiencing complications. Diet: Resume your normal diet as tolerated. Drink extra fluids. Activity: Rest for the remainder of the day. You may resume your normal activity tomorrow. You may bathe/shower after 24 hours. Do not soak or submerge site (including swimming or hot tubs) until a scab forms. No heavy lifting, pushing, or straining. Dressing: Check the site for bleeding. Apply pressure to the site if bleeding excessively and call your physician. Change the band aid as needed; it can be removed after 24 hours. Keep the site dry at all times until a scab forms over the site. Pain Control: The puncture site may be sore for 1 to 2 days following the procedure. Drxj-ruy-jmwvspt pain medication should be used for pain or discomfort. Please check with the physician who ordered this procedure for you for their specific recommendations. If your pain is not relieved or becomes more severe, notify the physician who sent you for this procedure. If you were sedated for this procedure: Avoid alcoholic beverages for 24 hours after your procedure. Do not drive or operate heavy machinery for 24 hours after your procedure. Do not make any legal decisions for 24 hours after your procedure. Medication: Please resume on . When to seek medical help: Lightheadedness, dizziness, or fainting. Severe pain or swelling. Severe nausea or vomiting. Infection: fever greater than 101 degrees, chills, redness, warmth, swelling, bleeding, or pus frompuncture site. If you experience any of these issues during the first 24 hours, please follow the instruction below: 8:00 am- 5:00 pm call [phone] After 24 hours, contact the physician who ordered this procedure for you. Obtaining test results: Please make an appointment with your doctor to obtain your test results. They are usually availablewithin 4 to 7 business days. Do not assume everything is normal if you have not heard from your doctor or medical facility. It is important for you to follow up on all of your test results. Special Instructions: Follow Up Care 09/14/2024 11:23:11 With:Follow up with primary care provider Address:Unknown When: Unknown [facility] 03-19-2025 Note* Exam Date Time Procedure Performing Provider Status 09/16/24 2:44 PM IR Drainage Cath Inj ection For IRMA Gaviria DO; Auth (Verified) [id number] ORIGINAL PROCEDURE: SPECIAL PROCEDURES. Injection/evaluation of previously placed pelvic abscess external drainage catheter 09/16/2024 HISTORY: ORDERING SYSTEM PROVIDED HISTORY: Reason for Exam: Colon cancer with pelvic abscess. Ask pt no meals 6h prior to scheduled procedure TECHNIQUE: Maximum sterile barrier technique including hand hygiene, skin prep and sterile ultrasound technique utilized for procedure. Following informed consent, pause a confirm/time-out patient is placed in the prone oblique position on fluoroscopic table. Previously placed external drainage catheter and entry site were prepped and draped in sterile fashion. Contrast injected while overhead images made. Images reviewed. Catheter maintained. New LYLA bulb placed. Patient tolerated procedure well. No complication suggested. CONTRAST: 10 mL Isovue-300 SEDATION: None FLUOROSCOPY DOSE AND TYPE: Radiation Exposure Index: Kerma 447.93 mGy, 0.8 minutes fluoroscopy time for procedure DESCRIPTION OF PROCEDURE: Informed consent was obtained after a detailed explanation of the procedure including risks, benefits, and alternatives. [place] protocol was observed. Sterile gowns, masks, hats and gloves utilized for maximal sterile barrier. As above in technique section FINDINGS: Compared to abdomen pelvis CT 09/03/2024, there is persistent small cavity in the right paramedian-lateral aspect of the pelvis. No opacification of bowel or bladder. IMPRESSION: Persistent small cavity right paramedian-lateral aspect of the pelvis. No opacification of bowel or bladder. External drainage catheter maintained. New LYLA bulb placed. No complication suggested. Findings are markedly improved compared to abdomen pelvis CT of 09/03/2024. Interpreted by: Irma Shah DO Preliminary Report By: Irma Shah DO Electronically signed By Irma Shah DO Dictated Date: 09/16/2024 4:45:46 PM Prelim Date: 09/16/2024 4:50:09 PM Sign Date: 09/16/2024 4:50:09 PM Ordering Provider: [facility]03-19-2025 Note IR Procedure Record Summary Primary Physician: IRMA SHAH DO Finalized Date/Time: 09/16/24 14:39:03 Pt. Name: CLARISSE PEGUERO/Sex: 1980 Female Med Rec #: [id number] Physician: Financial #: [id number] Pt. Type: O Room/Bed: / Admit/Disch: 09/16/24 11:51:00 - Institution: Allergies identified in patient's electronic medical record at time of printing on 09/16/24 Entry 1 Substance ciprofloxacin Reaction Type Side Effect Last Modified By: MELA Hamm 09/16/24 12:44:55 Case Attendance- IR Entry 1 Entry 2 Entry 3 Case Attendee IRMA SHAH Rad Tech Donna Fierstos, Megan R Rad Tech Role Performed Primary Surgeon Scrub Technologist Circulating Technologist Details Time In 09/16/24 14:15:00 09/16/24 14:00:00 09/16/24 14:00:00 Time Out 09/16/24 14:37:00 09/16/24 14:37:00 09/16/24 14:37:00 Procedure/Preference IR Drainage Cath IR Drainage Cath IR Drainage Cath Card Injection for Eval SN Injection for Eval SN Injection for Eval SN Last Modified By: MELA Meier RN Corey Snider, RN Corey 09/16/24 14:28:45 09/16/24 14:26:00 09/16/24 14:26:00 Entry 4 Entry 5 Case Attendee Josefina Peacock RN Corey Role Performed Circulating Technologist Procedure Nurse Details Time In 09/16/24 14:00:00 09/16/24 14:00:00 Time Out 09/16/24 14:37:00 09/16/24 14:37:00 Procedure/Preference IR Drainage Cath IR Drainage Cath Card Injection for Eval SN Injection for Eval SN Last Modified By: MELA Meier RN Corey 09/16/24 14:26:00 09/16/24 14:26:00 Radiology Procedures- IR Entry 1 Procedure/Preference IR Drainage Cath Actual Procedure IR DRAINAGE CATH Card Injection for Eval SN INJECTION FOR EVAL Primary Procedure Yes Primary Surgeon JODI TREVINO MD Anesthesia/Sedation None Type Additional Procedure Times Start 09/16/24 14:15:00 Stop 09/16/24 14:25:00 Specialty Service SN Radiology Procedure EBL 0 mL Last Modified By: MELA Meier 09/16/24 14:26:06 Radiology Procedure Details - IR Entry 1 Radiology Sedation Case Times Sedation Total Time 0 Radiology - Fluid/Drainage Radiology Contrast Contrast Used? Yes Dose 10 mL Medication CONTRAST ISOVUE 300/30ML 10/CA 367958 Radiology Flouroscopy Fluoroscopy Used? Yes Fluoro Dose (mGy) 447.93 Fluoro Time 0.8min Radiology Local Local Used? No Radiology Procedure Site Site/Location right pelvis Site Condition No complications Dressing Type Gauze sponge 4 X 4, Technologist Notes drain eval Transparent Last Modified By: MELA Meier 09/16/24 14:28:26 General Case Data - IR Entry 1 Case Information Room AH IR 18 Case Level IR Level 1 Wound Class None Specialty SN Radiology Procedure ASA Class None Diagnosis Preop Diagnosis abscess sp drain Postop Same As Preop Yes Postop Diagnosis abscess sp drain Last Modified By: MELA Meier 09/16/24 14:10:44 Procedure Case Times- IR Entry 1 Patient In Procedure Patient In OR 09/16/24 14:00:00 Patient Out of OR 09/16/24 14:36:00 Procedure Start/Stop Procedure Start Time 09/16/24 14:15:00 Procedure Stop Time 09/16/24 14:25:00 Last Modified By: MELA Meier 09/16/24 14:36:16 Immediate Post OP Note - IR Entry 1 Immediate Post Yes Procedure Note displayed for Physician to review Closure Technique Closure Technique Other than Primary Last Modified By: MELA Meier 09/16/24 14:10:10 Immediate Post OP Note - IR Signed By: IRMA SHAH DO 09/16/24 14:38 Allergy Information- IR Entry 1 Allergies Reviewed? Yes Allergies Reviewed Patient With Last Modified By: MELA Meier 09/16/24 14:02:27 Radiology Protocols/Time Out- IR Entry 1 Preprocedure Clinician Verifies Correct patient ID When Clinically Confirmation of correct using name & date Indicated side(s) and site(s), or MRN, Accurate Correct diagnostic and procedure, complete radiology tests Informed Consent, H & P available, Required update immediately blood products, prior to procedure, if implants, devices applicable, Clinical and/or special team introduction equipment available complete OR/Procedure Room/Bedside Time 09/16/24 14:15:00 Clinician Verifies Correct patient identity including EMR & records using name and date or medical record number, Accurate procedure consent form, Correct patient position, Necessary equipment is available, Anticipated non-routine events with surgical team (case duration, estimated blood loss, patient specific concerns)., Amaya patient factors for recovery and management identified with surgical team. When Applicable Confirmation correct Team Members IRMA SHAH DO, side and site marked, Present for Time Out Abraham Grimm, Relevant images and NormantosAliza R Rad results are properly Ayush Santiago Jacque labeled and Hardeep Villarreal RN Corey appropriately displayed, Alcohol based prep dry, Double verification of sterility indicators complete Instrument Sterility Team Members IRMA SHAH DO, Verifying Sterility AlfaAbraham Manju Procedure IR Drainage Cath Injection for Eval SN Last Modified By: MELA Meier 09/16/24 14:15:56 Skin Prep- IR Entry 1 Procedure IR Drainage Cath Injection for Eval SN Skin Prep Prep Area Hip Side Posterior, Right By Alfa Substitute Crossing Guard Manju Prep Agents Chloraprep Hair Removal Method N/A Last Modified By: MELA Meier 09/16/24 14:09:52 Patient Positioning- IR Entry 1 Procedure IR Drainage Cath Body Position OP Prone Injection for Eval SN Feet Uncrossed? Yes Pressure Points Yes Checked Last Modified By: MELA Meier 09/16/24 14:10:06 Radiology Procedure Plan - IR Entry 1 Radiology - Nursing Care Plan Outcome Statement The patient Outcome Statement The patient receives demonstrates knowledge Cont. appropriate of the expected medication(s), safely responses to the administered during the operative/invasive perioperative/invasive procedure., The period., The patient is patient's value system, free from signs and lifestyle, ethnicity, symptoms of injury and culture are caused by extraneous considered, respected, objects (equipment, and incorporated in the instrumentation, perioperative plan of sponges, or sharps). care., The patient is free from signs and symptoms of infection., The patient is free from signs and symptoms of injury related to positioning. Radiology - Action Plan Outcomes Met? 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 MELA Meier Completing Procedure Plan Last Modified By: MELA Meier 09/16/24 14:10:28 Case Comments Finalized By: MELA Meier Document Signatures Signed By: MELA Meier 09/16/24 14:39 [id number] Procedure note Date of Service INTERVENTIONAL RADIOLOGY POST PROCEDURE NOTE Pre-Procedure Diagnosis: [pelvic abscess with previously placed external drain catheter ] Post Procedure Diagnosis: Same. Acid Plant Helper: Dr. Irma Shah DO Procedure: [abscessogram ] Anesthesia: [1% lidocaine without epinephrine] Findings: [persistent small cavity in pelvis. marked improvement c/t prior/insertion study. catheter maintained and new LYLA bulb applied ] Estimated Blood Loss: Minimal (Less Than 10 mL). [ ] Specimen: _ Complications: None. Full report with procedural details to follow and will become available under the Radiology tab of Results Review. Please contact for any questions or concerns. _ Digitally Signed by IRMA SHAH DO on 09/16/2024 02:37 PM [id number] Summary of episode note Discharge Instructions Thank you for allowing [facility] to assist you with your healthcare needs. The following is importantdischarge information regarding your hospital visit. Your Care Team ABDULKADIR ROSALES PA-C What to do next Scheduled Follow-Up Appointments Appointment Type When With Where Contact Information StatusINF/OSP Labwork 09/22/2024 07:45 AM EDT Infusion Therapy Confirmed HEM ONC OV Follow Up w/ Active Treatme 09/22/2024 08:30 AM EDT ROSEANN LUNDBERG MD [facility] Confirmed INF Chemo: Infusion 240 min (4 hours) 09/22/2024 09:00 AM EDT Infusion Therapy Confirmed INF/OSP Labwork 09/24/2024 01:15 PM EDT Infusion Therapy Confirmed INF Chemo: Infusion Pump Discontinue 15 09/24/2024 01:30 PM EDT Infusion Therapy Confirmed GS OV Post Op 10/13/2024 08:15 AM EDT ARLENE RODRIGEZ MD [facility] Confirmed Follow Up Appointments Follow Up with Follow up with primary care provider The Following Activity and Diet Have Been Ordered for You No qualifying data available. No qualifying data available. The Following Equipment Has Been Ordered for You No qualifying data available. The Following Treatments Have Been Ordered for You Discharge Labs No qualifying data available. Discharge Radiology No qualifying data available. Other Therapies No qualifying data available. Post Acute Orders No qualifying data available. Someone Will Contact You Regarding These Home Health Referrals No home referrals have been ordered for you. No one will call you. Allergies ciprofloxacin Insomnia, Nausea, High Blood Pressure, Tachycardia Medications Please ask your primary doctor or pharmacist before taking any other medication not listed, including over the counter drugs, herbal medications, vitamins and or supplements as they may interact withyour home medications. What How Much When Why Instructions Last Dose Unchanged cefdinir (cefdinir 300 mg oral capsule) 1 cap TAKE ONE CAPSULE BY MOUTH TWICE DAILY Unchanged metroNIDAZOLE (metroNIDAZOLE 500 mg oral tablet) 1 tab(s) TAKE ONE TABLET BY MOUTH EVERY 8 HOURS FOR 7 DAYS. Additional 7 DAYS AFTER finishing initial course. Unchanged omeprazole (omeprazole 20 mg oral delayed release capsule) 1 cap by mouth Once a day Unchanged ondansetron (Zofran 8 mg oral tablet) 1 tab(s) by mouth Every 8 hours as needed for Nausea/Vomiting Adenocarcinoma of sigmoid colon Please take this list to your next doctor s visit. Bring all medications you take, including over the counter medications, herbals and other supplements with you to your doctor s visit. Patients and families are reminded to discard old lists and to update any records with all medication providers or retail pharmacies. Education Materials [facility] Radiology Procedure/Biopsy Discharge Instructions Interventional Radiology [facility] [address] [place] [address] Today, you had a drain evaluation . This procedure/biopsy was done to help your doctor diagnose and treat the signs and symptoms you have been e xperiencing. These instructions should be followed after your procedure to reduce the chance of experiencing complications. Please follow the instructions below to reduce the chance of experiencing complications. Diet: Resume your normal diet as tolerated. Drink extra fluids. Activity: Rest for the remainder of the day. You may resume your normal activity tomorrow. You may bathe/shower after 24 hours. Do not soak or submerge site (including swimming or hot tubs) until a scab forms. No heavy lifting, pushing, or straining. Dressing: Check the site for bleeding. Apply pressure to the site if bleeding excessively and call your physician. Change the band aid as needed; it can be removed after 24 hours. Keep the site dry at all times until a scab forms over the site. Pain Control: The puncture site may be sore for 1 to 2 days following the procedure. Lyhv-zqt-wlhntou pain medication should be used for pain or discomfort. Please check with the physician who ordered this procedure for you for their specific recommendations. If your pain is not relieved or becomes more severe, notify the physician who sent you for this procedure. If you were sedated for this procedure: Avoid alcoholic beverages for 24 hours after your procedure. Do not drive or operate heavy machinery for 24 hours after your procedure. Do not make any legal decisions for 24 hours after your procedure. Medication: Please resume on . When to seek medical help: Lightheadedness, dizziness, or fainting. Severe pain or swelling. Severe nausea or vomiting. Infection: fever greater than 101 degrees, chills, redness, warmth, swelling, bleeding, or pus frompuncture site. If you experience any of these issues during the first 24 hours, please follow the instruction below: 8:00 am- 5:00 pm call [phone] After 24 hours, contact the physician who ordered this procedure for you. Obtaining test results: Please make an appointment with your doctor to obtain your test results. They are usually availablewithin 4 to 7 business days. Do not assume everything is normal if you have not heard from your doctor or medical facility. It is important for you to follow up on all of your test results. Special Instructions: Additional Information VACCINATE! IT SAVES LIVES! Members of the community who have not yet received the COVID-19 vaccine and would like to receive it can visit one of [facility] vaccine clinics. There are many vaccine clinic locations within the [facility]. For locations and available times, please visit https://gettheshot.coronavirus.[place].gov/. It is important to note that some COVID mobile vaccine clinics are held outdoors and may be canceled in rainy or stormy conditions. To learn more about pediatric vaccinations (ages 5-11), we invite you to visit the [employer] [facility] webpage. https://www.[facility].org/pages/[email or web address]-Dlcfv-Aioxavcmwos-Svzxdombkr-Axfam-Zsx stions.htmlTo learn more about the COVID-19 vaccine, we invite you to visit the CDC website for a list of frequently asked questions.https://www.cdc.gov/coronavirus/2019-ncov/vaccines/faq.html [employer] Patient Portal Access Instructions: Stay connected with your healthcare team and access your personal medical information anytime with the [employer] Patient Portal. Please follow the directions below to create your [employer] account: 1.Access the email account you provided upon registration to the hospital/physician office.2.Look for an invitation email from [facility].3.Open the email and access the invitation link: AcceptInvitation to [employer].4.Fill in the required wetzel to create your account. To access your account, visit [employer]. Click the blue button labeled Access Patient Portal and then log in with the username and password that you created in the steps above. You will be able to view your test results, lab results, a summary of your visits, upcoming appointments and more. There is also a convenient messaging option where you can send secure messages to your p rovider. In addition, you will have the ability to download any documents or summaries to your computer and/or send the information securely to a physician. Remember that your healthcare information is confidential, so carefully consider who you will allowto register on the [employer] Patient Portal for access to your information. You can also access the [employer] Patient Portal on the [employer] patrizia. Simply click on Patient Portal and then log into your account. If you would like to receive a full copy of your medical records, please contact the [facility] Medical Records Department by calling [phone], Saturday through Saturday between 8 a.m. and 4:30 p.m. HOW TO SAFELY DISPOSE OF PRESCRIPTION MEDICATIONS Please use one of the following methods to safely dispose of your unused medications. 1.Use a drug disposal kit: the drug disposal pouch allows you to safely discard your old and unuseddrugs. Ask your nurse to give you one when you are discharged.2.Visit a local take-back location: Many local pharmacies and police departments have programs that collect old and unwanted prescriptiondrugs. Call your local pharmacy or go to http://nooked.Global Talent Track/6A8Sw9o to find one close to you.3.Make use of household items: Use cat litter or old coffee grounds to dispose medications if other options arenot available. Mix your drugs with these household products, seal them in an airtight container andthrow it into the garbage. Call [facility]: [phone] to be sure your drugs can be disposed of in this way. Some medicines may require a different approach.4.Never flush your medications down the toilet. IF YOU HAVE BEEN PRESCRIBED AN OPIOID FOR PAIN If you have been prescribed an opioid (such as hydrocodone, oxycodone or morphine), it is critical to understand the possible side effects and risks of opioid pain medications. Even when taken as directed, opioids can have several side effects including: Tolerance, meaning you might need to take more of a medication for the same pain relief. Nausea, vomiting and/or constipation. Sleepiness, dizziness, dry mouth, confusion, depression or itching. Physical dependence, meaning you have withdrawal symptoms when a medication is stopped, can develop within a few days. KNOW YOUR RESPONSIBILITIES It is important to know exactly how much and how often to take the opioid pain medications you are prescribed. Never take opioids in higher amounts or more often than prescribed. Do not combine opioids with alcohol or other drugs that cause drowsiness, such as benzodiazepines, also known as benzos, including diazepam and alprazolam, muscle relaxants or sleep aids. Never sell or share prescription opioids. This is illegal. Store opioids in a secure place and out of reach of others (including children, family, friends and visitors). The last page of this document has been signed and retained as a CHART COPY. Signatures Patient Education Materials Radiology- Procedure/Biopsy 04/10/2024 (CUSTOM) Medication Leaflets My discharge plan and instructions have been reviewed and explained to me and I,CLARISSE PEGUERO understand my current condition and have read and understand these discharge instructions. I have received a written copy of the plan/instructions. If I have questions, I am aware that I should contact my d octor. 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: Date/Time: Relationship to Patient: Witness Name/Signature: Date/Time[id number] Evaluation + Plan noteExtracted from: Title:IR Pre-Procedure H&P Author:ADELAIDE DONOVAN PA-C Date:09/16/24 IR PREPROCEDURE H&P UPDATE IF A HISTORY AND PHYSICAL EXAMINATION HAS BEEN COMPLETED PRIOR TO ADMISSION TO THE HOSPITAL, AN UPDATED EXAMINATION MUST BE COMPLETED AND DOCUMENTED WITHIN 24 HOURS AFTER ADMISSION OR REGISTRATION BUT BEFORE A SURGICAL PROCEDURE. I have examined the patient, reviewed the H&P, and there are no changes unless noted below: Patient states little to no output for the past 1 week. No leaking. The most recent H&P/Office Note was performed on 09/15/2024 and can be found in the [facility] ([place]). Polina Donovan PA-C Interventional Radiology Pager: [phone] IR dept: x [phone] Available on [employer] Appointments Appointment Date:09/22/2024 07:45:00 AM Scheduled Provider: Location:INF Appointment Type:INF/OSP Labwork Appointment Date:09/22/2024 08:30:00 AM Scheduled Provider:ROSEANN LUNDBERG MD Location:HEM ONC Appointment Type:HEM ONC OV Follow Up w/ Active Treatme Appointment Date:09/22/2024 09:00:00 AM Scheduled Provider: Location:INF Appointment Type:INF Chemo: Infusion 240 min (4 hours) Appointment Date:09/24/2024 01:15:00 PM Scheduled Provider: Location:INF Appointment Type:INF/OSP Labwork Appointment Date:09/24/2024 01:30:00 PM Scheduled Provider: Location:INF Appointment Type:INF Chemo: Infusion Pump Discontinue 15 Appointment Date:10/13/2024 08:15:00 AM Scheduled Provider:ARLENE RODRIGEZ MD Location:Gen Surg [facility] Appointment Type:GS OV Post Op Future Scheduled Tests Laboratory* Carcinoembryonic Antigen 09/01/24 * Complete Blood Count 08/25/24 * Complete Blood Count 08/13/24 * Complete Blood Count 09/01/24 * Complete Metabolic Panel 08/25/24 * Complete Metabolic Panel 09/01/24 * MISC Lab Send Out (Non-Blood Specimens) 07/30/24 Radiology* IR Drainage Cath Injection for Eval 09/30/24 * CT Thorax w/ Contrast 06/17/24 * XR Hip 3-4 Views Bilateral 08/13/24 * CT Abdomen and Pelvis w/ contrast 06/17/24 * CT Abdomen and Pelvis w/ contrast 03/27/24 * US Renal 04/13/24 [facility] 03-19-2025 History and physical note IR PREPROCEDURE H&P UPDATE IF A HISTORY AND PHYSICAL EXAMINATION HAS BEEN COMPLETED PRIOR TO ADMISSION TO THE HOSPITAL, AN UPDATED EXAMINATION MUST BE COMPLETED AND DOCUMENTED WITHIN 24 HOURS AFTER ADMISSION OR REGISTRATION BUT BEFORE A SURGICAL PROCEDURE. I have examined the patient, reviewed the H&P, and there are no changes unless noted below: Patient states little to no output for the past 1 week. No leaking. The most recent H&P/Office Note was performed on 09/15/2024 and can be found in the [facility] ([place]). Polina Donovan PA-C Interventional Radiology Pager: [phone] IR dept: x [phone] Available on [employer] Digitally Signed by POLINA DONOVAN PA-C on 09/16/2024 01:04 PM Digitally Signed by JODI TREVINO MD on 09/16/2024 01:49 PM [id number] Note* Exam Date Time Procedure Performing Provider Status 09/16/24 12:[address] Abd/Pelvis w/ IV Contrast Only IRMA ORDOÑEZ MD; Auth (Verified) [id number] ORIGINAL EXAMINATION: CT OF THE ABDOMEN AND PELVIS WITH CONTRAST 09/16/2024 12:50 pm TECHNIQUE: CT of the abdomen and pelvis was performed with the administration of intravenous contrast. Multiplanar reformatted images are provided for review. Automated exposure control, iterative reconstruction, and/or weight based adjustment of the mA/kV was utilized to reduce the radiation dose to as low as reasonably achievable. COMPARISON: 09/03/2024 and 03/12/2024 HISTORY: ORDERING SYSTEM PROVIDED HISTORY: Reason for Exam: abscess s/p drain PELVIC ABSCESS,SOME OUTPUT,DENIES PAIN FINDINGS: Lower Chest: Lung bases are unremarkable. Organs: There are multiple irregular liver lesions which appear mildly enlarged compared to prior. A dominant right hepatic lobe lesion demonstrates ill-defined borders and roughly measures 5.8 x 5.4 cm (2:28), previously 4.7 x 4.2 cm when measured similarly. There is no new definitive hepatic lesion identified on today's exam. No focal splenic lesion. The adrenal glands and pancreas are unremarkable. Cholelithiasis. No hydronephrosis. No biliary dilatation. GI/Bowel: The distal esophagus and stomach are grossly unremarkable. No obstruction. A normal appendix is identified. There is a left lower quadrant diverting colostomy with associated infiltrative changes which appears similar to mildly improved compared to prior. Mild colonic diverticulosis. There is apparent irregular wall thickening of the sigmoid colon with irregular lobular abnormal soft tissue extending superiorly roughly measuring 3.5 x 2.6 cm (2:89) which appears slightly smaller compared to prior, previously 3.6 x 3.6 cm on personal remeasurement. Previously suspected pelvic fistula is difficult to identify given lack of oral contrast although may still be present. Pelvis: There is been interval repositioning of a percutaneous drainage catheter extending through the right sciatic notch terminating within the cul-de-sac. No discrete residual fluid collection identified within this region. There is mild infiltrative changes present along with numerous subcentimeter surrounding lymph nodes.. Peritoneum/Retroperitoneum: Nonaneurysmal abdominal aorta. No free intraperitoneal air. A few retroperitoneal subcentimeter lymph nodes appears stable. Stable probable subcentimeter splenule is seen within the left upper quadrant (2:23). Bones/Soft Tissues: No acute osseous abnormality. Mild degenerative changes. Tiny fat containing umbilical hernia. IMPRESSION: Interval repositioning of drainage catheter terminating within the cul-de-sac with interval resolution of previously seen fluid collection within the cul-de-sac. No new drainable fluid collection identified. Persistent abnormal wall thickening corresponding with known history of sigmoid malignancy. Mild interval decrease of abnormal lobular soft tissue mass just above the sigmoid colon on the left. Whether this is neoplasm or phlegmonous inflammation is uncertain, and follow-up will be needed. Interval enlargement of multiple hepatic metastatic deposits. No definitive new hepatic lesions. I have personally reviewed the images of this examination and agree with the resident's findings and interpretations. Interpreted by: Irma Ordoñez MD Preliminary Report By: Kaleigh Chapman Electronically signed By Irma Ordoñez MD Dictated Date: 09/16/2024 1:15:01 PM Prelim Date: 09/16/2024 1:39:28 PM Sign Date: 09/16/2024 1:39:28 PM Ordering Provider: [facility]03[facility]03[facility]2025 Hospital Discharge instructions Patient Education 08/31/2024 10:43:31 Colostomy Home Guide, Adult Colostomy Home Guide, Adult Colostomy surgery is done to create an opening in the front of the abdomen for stool (feces) to leave the body through an ostomy (stoma). Part of the large intestine is attached to the stoma. A bag, also called a pouch, is fitted over the stoma. Stool and gas will collect in the bag. After surgery, you will need to empty and change your colostomy bag as needed. You will also need to care for your stoma. How to care for the stoma Your stoma should look pink, red, and moist, like the inside of your cheek. Soon after surgery, thestoma may be swollen, but this swelling will go away within 6 weeks. To care for the stoma: Keep the skin around the stoma clean and dry. Use a clean, soft washcloth to gently wash the stoma and the skin around it. Clean using a circularmotion, and wipe away from the stoma opening, not toward it. ?Use warm water and only use cleansers recommended by your health care provider. ?Rinse the stoma area with plain water. ?Dry the area around the stoma well. Use stoma powder or ointment on your skin only as told by your health care provider. Do not use anyother powders, gels, wipes, or creams on the skin around the stoma. Check the stoma area every day for signs of infection. Check for: ?New or worsening redness, swelling, or pain. ?New or increased fluid or blood. ?Pus or warmth. Measure the stoma opening regularly and record the size. Watch for changes. (It is normal for the stoma to get smaller as swelling goes away.) Share this information with your health care provider. How to empty the colostomy bag Empty your bag at bedtime and whenever it is one-third to one-half full. Do not let the bag get more than half-full with stool or gas. The bag could leak if it gets too full. Some colostomy bags havea built-in gas release valve that releases gas often throughout the day. Follow these basic steps: 1.Wash your hands with soap and water. 2.Sit far back on the toilet seat. 3.Put several pieces of toilet paper into the toilet water. This will prevent splashing as you empty stool into the toilet. 4.Remove the clip or the bdqj-ycp-ifby fastener from the tail end of the bag. 5.Unroll the tail, then empty the stool into the toilet. 6.Clean the tail with toilet paper or a moist towelette. 7.Reroll the tail, and close it with the clip or the nbya-eud-sczs fastener. 8.Wash your hands again. How to change the colostomy bag Change your bag every 3 4 days or as often as told by your health care provider. Also change the bag if it is leaking or from the skin, or if your skin around the stoma looks or feels irritated. Irritated skin may be a sign that the bag is leaking. Always have colostomy supplies with you, and follow these basic steps: 1.Wash your hands with soap and water. Have paper towels or tissues nearby to clean any discharge. 2.Remove the old bag and skin barrier. Use your fingers or a warm cloth to gently push the skin away from the barrier. 3.Clean the stoma area with water or with mild soap and water, as directed. Use water to rinse awayany soap. 4.Dry the skin. You may use the cool setting on a hair stylist to do this. 5.Use a tracing pattern (template) to cut the skin barrier to the size needed. 6.If you are using a two-piece bag, attach the bag and the skin barrier to each other. Add the barrier ring, if you use one. 7.If directed, apply stoma powder or skin barrier gel to the skin. 8.Warm the skin barrier with your hands, or blow with a hair stylist for 5 10 seconds. 9.Remove the paper from the adhesive strip of the skin barrier. 10.Press the adhesive strip onto the skin around the stoma. 11.Gently rub the skin barrier onto the skin. This creates heat that helps the barrier to stick. 12.Apply stoma tape to the edges of the skin barrier, if desired. 13.Wash your hands again. General recommendations Avoid wearing tight clothes or having anything press directly on your stoma or bag. Change your clothing whenever it is soiled or damp. You may shower or bathe with the bag on or off. Do not use harsh or oily soaps or lotions. Dry the skin and bag after bathing. Store all supplies in a cool, dry place. Do not leave supplies in extreme heat because some parts can melt or not stick as well. Whenever you leave home, take extra clothing and an extra skin barrier and bag with you. If your bag gets wet, you can dry it with a hair stylist on the cool setting. To prevent odor, you may put drops of ostomy deodorizer in the bag. If recommended by your health care provider, put ostomy lubricant inside the bag. This helps stool to slide out of the bag more easily and completely. Contact a health care provider if: You have new or worsening redness, swelling, or pain around your stoma. You have new or increased fluid or blood coming from your stoma. Your stoma feels warm to the touch. You have pus coming from your stoma. Your stoma extends in or out farther than normal. You need to change your bag every day. You have a fever. Get help right away if: Your stool is bloody. You have nausea or you vomit. You have trouble breathing. Summary Measure your stoma opening regularly and record the size. Watch for changes. Empty your bag at bedtime and whenever it is one-third to one-half full. Do not let the bag get more than half-full with stool or gas. Change your bag every 3 4 days or as often as told by your health care provider. Whenever you leave home, take extra clothing and an extra skin barrier and bag with you. This information is not intended to replace advice given to you by your health care provider. Make sure you discuss any questions you have with your health care provider. Document Released: 06/19/2004 Document Revised: 10/07/2019 Document Reviewed: 12/11/2017 [employer] Patient Education 2020 [employer]. 08/31/2024 10:43:14 8- Agustin Mott Drain (03/2018)(CUSTOM) Agustin Mott Drain Patient Education After surgery, you may notice a bulb-like drain, called a Agustin-Mott (LYLA) connected to tubing coming from your incision. This drain suctions and collects fluid from your incisional area. It also promotes healing and reduces the chance of infection You may have the drain for several days after surgery. While you are hospitalized, your nurse will take care of it. If you go home with the drain in place, you will need to care for it yourself. The process is easy to learn. Your nurse will show you how. How to empty the LYLA drain 1. Empty the drainage bottle as needed (usually 3 times/day), when it is half full, or as often as directed. 2. Obtain a measuring cup to collect the fluid. 3. Wash your hands thoroughly with soap and water. 4. Unpin the bottle from your dressing or shirt. 5. Remove the rubber stopper from the bottle. 6. Turn the bottle upside-down and squeeze the contents into the measuring cup. Completely empty the bottle. Note: To prevent infection, don t let the rubber stopper or top of the bottle touch the measuring cup or anything else. 7. Clean the plug with an alcohol swab or cotton ball dipped in rubbing alcohol. 8. Use one hand to squeeze all of the air from the bottle. 9. With the bottle still compressed, use your other hand to replace the rubber stopper. Do this to make sure the drain suction works well. The bottle should stay flat until it starts to fill with fluid again. 10. Pin the bottle back on your dressing or shirt to avoid pulling it out accidently. 11. Flush the fluid down the toilet. 12. Wash your hands again. Write down the time, amount and color of the drainage. Always remember to wash your hands before and after the procedure to reduce the risk of infecting the incisional area What should I do if the tubing becomes clogged? Hold the tubing between your thumb and first finger at the place closest to your skin. This hand will prevent the tube from being pulled out of your skin. Use your other thumb and first finger to slide the clog down the tubing toward the bulb. You may have to repeat the sliding until the tubing is unclogged. When should I seek immediate care? Your LYLA drain breaks or comes out When should I contact my healthcare provider? You think your LYLA drain is blocked You have brown drainage from your LYLA drain site, or the drainage smells bad You have a fever higher than 101 F (38.6 C) You have increased pain, redness or swelling around the drain site You have questions about your LYLA drain care DRAINAGE RECORD Date Time Amount Document Released: 06/17/2006 Document Revised: 06/03/2013 Document Reviewed: 06/18/2014 ExitCare Patient Information 2015 [employer]. This information is not intended to replace advicegiven to you by your health care provider. Make sure you discuss any questions you have with your health care provider. Follow Up Care 08/19/2024 03:53:03 With:KENAN JOSE MD, [facility] Address: [address] [place] [address] [place] [address] [phone] When:1-2 days Comments:As needed, call [phone] with questions regarding your abscess drainage catheter.Plan for a follow up in 1-[address] scan and drainage catheter evaluation at [facility] With:ARLENE RODRIGEZ MD, Surgery Address: [address] [facility] [place] [address]- [phone] When:1-2 days Comments:Please call the office upon discharge for an appointment in 2 weeks. With:[facility] Address: When: Unknown Comments:This is your home healthcare provider. Please call if you have questions related to home healthcare. With:ABDULKADIR ROSALES PA-C Address: [address] [place] [address] [place] [address]- [phone] When:1-2 days Comments:Please call the office to schedule a hospital follow up appointment. [facility] 03-03-2025 Discharge summary Discharge Diagnosis 1. Multiloculated fluid collection/abscess with suspected fistula in the pelvic area. Post IR drainage on 08/26/2024, cultures showing 2 types of E. coli 2. 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 History of DVT in the lower extremity. 4. Diverticulosis. 5. Sepsis secondary to intra-abdominal abscess. 6. Hypokalemia. 7. Pancytopenia. 8. Anemia. 9. Hypomagnesemia Hospital Course 44-year-old woman with metastatic colon cancer to the liver, presented to the emergency room with right-sided pelvic pain, was found to have multiloculated fluid collection/abscess with suspected fistula in the pelvic area, patient was started on IV antibiotics, hematology oncology, general surgery, IR, infectious disease team were consulted. General surgery team evaluated the patient, initially they recommended to continue with conservative management with IV antibiotics and supportive care, the case was discussed with them along with the hematology oncology team, patient was planned for diverting colostomy, which took place on 08/28/2024. I did discuss the patient's condition with the infectious disease team, we did reach out to the interventional radiology team, patient had a LYLA drain in the abscess on 08/26/2024, and the culture showed 2 types of E. coli. Infectious disease team evaluated the patient, they recommended IV antibiotics, while the patient in the hospital, and discharged the patient on Cipro 500 mg p.o. twice daily, and Flagyl 500 mg p.o. 3 times daily for 7 days, Hematology oncology team evaluated the patient, they recommended to hold any further chemotherapy until the patient is done with her antibiotic regimen. Patient was seen by the colostomy nursing team, and she got education regarding Interventional radiology recommended 1 to 2 weeks follow-up with another CAT scan of the abdomen and pelvis to further evaluate the LYLA drain for possible removal. Patient was examined and evaluated by me today she was awake alert and oriented, denying any chest pain shortness of breath cough fever chills, denying any abdominal pain nausea or vomiting, patient is tolerating diet, patient will be discharged home today all her questions were answered, all her concerns were addressed family were at the bedside all the questions were answered as well Allergies NKA Procedures IR draining of abscess on 08/26/2024. Diverting colostomy on 08/28/2024 Consults Consult to Physician - Ordered -- 08/19/24 12:18:00 SANDY HUGHES BADIE BA MD, Routine, NF Consult to Physician - Ordered -- 08/19/24 12:41:00 LAZARO HUGHES AARTHI MD, Routine, NF Imaging Results and Diagnostics Please see Casey Objective Vitals and Measurements T: 36.6 C (Oral) TMIN: 36.4 C (Oral) TMAX: 36.8 C (Oral) HR: 76 (Apical) RR: 16 BP: 112/62 SpO2: 95% Weight Dosing Weight: 99.8 kg (08/19/24) Dosing Weight: 99.8 kg (08/19/24) Head: atraumatic normocephalic Neck: supple no JVD Lungs: clear to auscultation bilaterally, no wheezes no accessory muscle use. Heart: S1-S2 regular rate and rhythm, no murmurs Abdomen: soft nontender nondistended, bowel sounds are present all 4 quadrants ostomy is in place Lower extremities: no cyanosis, no chronic skin changes, pulse palpable +1 bilaterally, no edema Skin: showed no rash Neurological: patient is awake alert and oriented 3, no focal neurological deficit. Pending Labs and Studies none Code Status Code Status - Ordered -- 08/19/24 9:06:00 EST, Full Code, Constant Order Patient Instructions No lifting or pushing objects greater than 10-15 pounds and no strenuous activity. Walking, using the stairs, and riding in a car are acceptable forms of activity and are encouraged in the postoperative period. Incentive spirometry use and deep breathing/coughing exercises are also encouraged afterdischarge to prevent respiratory complications such as pneumonia and blood clots. No driving while taking narcotic pain medication. You may shower. No tub bathing or soaking your incisions, and no pool/hot tub use until cleared by your surgeon. Wash your incisions daily with a mild soap and water and pat dry. It is recommended that you alternate between 650-1000 mg of Tylenol and 400-800 mg Motrin (Advil orIbuprofen) every 6 hours as needed to optimize pain control after surgery. A temporary prescriptionfor a narcotic pain medication is typically provided to you postoperatively and should only be usedfor breakthrough pain as narcotics increase the risk for constipation, dependency, and respiratory depression. Constipation after surgery is a very common concern for patients after discharge from the hospital.Patients are encouraged to take over the counter stool softeners (such as Colace) and over the counter laxatives (Miralax) as needed for constipation. Additional medications that can be taken for postoperative constipation include milk of magnesia, Metamucil, and Senokot. Medications New Prescription ciprofloxacin (Cipro 500 mg oral tablet)1 tab(s) by mouth every 12 hours for 7 Days. Refills: 0. metroNIDAZOLE (metroNIDAZOLE 500 mg oral tablet)1 tab(s) by mouth every 8 hours for 7 Days. Refills: 0. Unchanged omeprazole (omeprazole 20 mg oral delayed release capsule)1 cap by mouth once a day. ondansetron (Zofran 8 mg oral tablet)1 tab(s) by mouth every 8 hours as needed Nausea/Vomiting. Refills: 1. Follow Up Follow Up with KENAN JOSE MD, [facility] When:Within 1-2 days Where:[address] [place] [address] [place] [address]- [phone] Additional Information: As needed, call [phone] with questions regarding your abscess drainage catheter. Plan for a follow up in 1-[address] scan and drainage catheter evaluation at [facility] Follow Up with ARLENE RODRIGEZ MD, Surgery When:Within 1-2 days Where:[address] [facility] [address] [facility] [place] [address]- [phone] Additional Information: Please call the office upon discharge for an appointment in 2 weeks. Follow Up with [facility] Additional Information: This is your home healthcare provider. Please call if you have questions related to home healthcare. Follow Up with ABDULKADIR ROSALES PA-C When:Within 1-2 days Where:[address] [place] [address]- [phone] Additional Information: Please call the office to schedule a hospital follow up appointment. Follow Up Appointments No qualifying data available. Follow Up Labs/Studies Discharge Labs No Follow-up Labs Discharge Studies No Follow-up Studies Discharge Diet Discharge Diet - Ordered -- Type of Diet: Regular, 08/31/24 9:43:00 EST Discharge Activity Discharge Activity - Ordered -- Resume your pre-hospitalization activity, 08/31/24 9:43:00 EST Condition on Discharge Stable Readmission Risk/Palliative Score No qualifying data available. Discharge Disposition Home Time Spent 35-minute Digitally Signed by JASMIN MATA MD on 08/31/2024 11:57 AM [id number] Progress note Date of Service 08/31/2024 Chief Complaint Postoperative day #2 Subjective Examination patient she is seen sitting up in the chair. Patient reporting that she is slowly learning how to take care of her ostomy. Patient reports that she is eating without difficulty she deniesany nausea, vomiting or abdominal pain at this time. Objective Vitals and Measurements T: 36.6 C (Oral) TMIN: 36.4 C (Oral) TMAX: 36.8 C (Oral) HR: 76 (Apical) RR: 16 BP: 112/62 SpO2: 95% Intake and Output 7AM Yesterday to 7AM Today Intake and Output (Last 24 hours) Intake Oral Intake 820.00 Supplement Intake 120.00 Output Surgical Drain, Tube Output: 20.00 Urine Voided 1850.00 Ostomy Stool Volume: 250.00 Stool Count 1.00 Urine Count 0.00 Total Summary Total Intake 940.00 Total Output 2120.00 Fluid Balance -1180.00 Physical Exam General: Awake and alert and in no apparent distress. Able to answer questions and speak in full sentences. Supine in bed. Sitting upright. HEENT: Mucous membranes moist and pink. Sclerae anicteric. PERRLA. Lungs: Chest rise symmetrical. Respirations unlabored. Abdomen: Round, soft, stoma pink and viable stoma keisha in place, stool in appliance bag. LYLA drain intact with purulent drainage in bulb. Extremities: Freely moving. Skin: Normal color for ethnicity. No pallor or diaphoresis. No jaundice. Psychiatric: Calm and cooperative. Weight Dosing Weight: 99.8 kg (08/19/24) Dosing Weight: 99.8 kg (08/19/24) Medications Medications (20) Active Scheduled: (6) enoxaparin 40 mg/ 0.4mL syringe 40 mg 0.4 mL, Subcutaneous, qDay ketorolac 15 mg/mL vial 15 mg 1 mL, IV Push, q6hr [facility] communication order 1 EA, Miscellaneous, Daily omeprazole [address] capsule 20 mg 1 cap(s), Oral, qDay piperacillin-tazobactam PMX 4.5 gram(s) 100 mL, IV Piggyback, q8h sodium chloride 0.9% 10 ml syringe cristina flush 10 mL, IR Drain, q8h Continuous: (0) PRN: (14) acetaminophen 325 mg Tablet 650 mg 2 tab(s), Oral, q4h acetaminophen-HYDROcodone 325-5 mg tablet 2 tab(s), Oral, q4h acetaminophen-OXYcodone 325 mg-5 mg Tablet 1 tab(s), Oral, q4h acetaminophen-OXYcodone 325 mg-5 mg Tablet 2 tab(s), Oral, q4h dextrose 50% Solution Disp syringe 50 mL 25 gram(s) 50 mL, IV Push, AsDirected docusate-senna (Senokot S) 50 mg-8.6 mg Tablet 1 tab(s), Oral, qDay HYDROmorphone 0.5 mg/0.5 mL syringe 0.5 mg 0.5 mL, IV Push, q4h melatonin 3 mg tablet 3 mg 1 tab(s), Oral, qHS melatonin 3 mg tablet 3 mg 1 tab(s), Oral, qHS morphine 2 mg/mL 1 mL syringe 2 mg 1 mL, IV Push, q3h morphine 4 mg/mL 1mL INJ 4 mg 1 mL, IV Push, q3h ondansetron 2 mg/ 1 mL 2 mL INJ 4 mg 2 mL, IV Push, q4h ondansetron 8 mg tablet 8 mg 1 tab(s), Oral, q8h polyethylene glycol 3350 - UD packet 17 gram(s) 15 mL, Oral, qDay Lab Results 08/31 07:12 WBC: 10.9 H Hgb: 7.3 L Hct: 23.8 L Platelet: 550 H Neutrophil %: 80.0 H Glucose Level: 99 Sodium Level: 139 Potassium Level: 3.5 BUN: 9.0 Creatinine Lvl (s): 0.44 L 03/02 10:57 WBC: 12.7 H Hgb: 8.0 L Hct: 24.5 L Platelet: 529 H Neutrophil %: 78.0 H Glucose Level: 137 H Sodium Level: 139 Potassium Level: 3.0 L BUN: 13.0 Creatinine Lvl (s): 0.54 EKG No qualifying data available. 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 Overall the patient is doing well from surgical standpoint. Vital signs, laboratory data I/O have been reviewed. Patient's stoma is pink and viable and there is stool in the appliance bag. Plan: 1. Postoperative day #2 -Continue with multimodality pain control -Continue with diet as tolerated -Continue with LYLA drain//care as ordered -Continue with ostomy teaching will order home RN for disease management -From a surgical standpoint the patient can be discharged when medically optimized by the primary team. -Patient to follow-up with Dr. Rodrigez in the office Case has been discussed with Dr. Rodrigez. Please see his addendum to follow. This document was dictated with voice recognition software and may contain grammatical errors Digitally Signed by TYRONE CHAVES on 08/31/2024 10:20 AM [id number] Note Discharge Instructions Thank you for allowing [facility] to assist you with your healthcare needs. The following is importantdischarge information regarding your hospital visit. Your Care Team ABDULKADIR ROSALES PA-C Your Diagnosis Adenocarcinoma of sigmoid colon Cancer of colon Cancer, metastatic to liver Colonic fistula Febrile neutropenia What to do next Instructions From Your Doctor No lifting or pushing objects greater than 10-15 pounds and no strenuous activity. Walking, using the stairs, and riding in a car are acceptable forms of activity and are encouraged in the postoperative period. Incentive spirometry use and deep breathing/coughing exercises are also encouraged afterdischarge to prevent respiratory complications such as pneumonia and blood clots. No driving while taking narcotic pain medication. You may shower. No tub bathing or soaking your incisions, and no pool/hot tub use until cleared by your surgeon. Wash your incisions daily with a mild soap and water and pat dry. It is recommended that you alternate between 650-1000 mg of Tylenol and 400-800 mg Motrin (Advil orIbuprofen) every 6 hours as needed to optimize pain control after surgery. A temporary prescriptionfor a narcotic pain medication is typically provided to you postoperatively and should only be usedfor breakthrough pain as narcotics increase the risk for constipation, dependency, and respiratory depression. Constipation after surgery is a very common concern for patients after discharge from the hospital.Patients are encouraged to take over the counter stool softeners (such as Colace) and over the counter laxatives (Miralax) as needed for constipation. Additional medications that can be taken for postoperative constipation include milk of magnesia, Metamucil, and Senokot. Follow Up Appointments Follow Up with KENAN JOSE MD, [facility] When:Within 1-2 days Where:[address] [place] [address] [place] [address]- [phone] Additional Information: As needed, call [phone] with questions regarding your abscess drainage catheter. Plan for a follow up in 1-[address] scan and drainage catheter evaluation at [facility] Follow Up with ARLENE RODRIGEZ MD, Surgery When:Within 1-2 days Where:[address] [facility] [address] [facility] [place] [address]- [phone] Additional Information: Please call the office upon discharge for an appointment in 2 weeks. Follow Up with [facility] Additional Information: This is your home healthcare provider. Please call if you have questions related to home healthcare. Follow Up with ABDULKADIR ROSALES PA-C When:Within 1-2 days Where:[address] [place] [address]- [phone] Additional Information: Please call the office to schedule a hospital follow up appointment. The Following Activity and Diet Have Been Ordered for You Discharge Activity - Ordered -- Resume your pre-hospitalization activity, 08/31/24 9:43:00 EST Discharge Diet - Ordered -- Type of Diet: Regular, 08/31/24 9:43:00 EST The Following Equipment Has Been Ordered for You Discharge Home Equipment Discharge Communication Order - Ordered -- Flush IR drain once daily with 10 ml sterile NS (into drain; not to bag)., 08/26/24 15:02:07 EST The Following Treatments Have Been Ordered for You Discharge Labs No qualifying data available. Discharge Radiology No qualifying data available. Other Therapies No qualifying data available. Post Acute Orders No qualifying data available. Someone Will Contact You Regarding These Home Health Referrals No home referrals have been ordered for you. No one will call you. Allergies NKA Medications Please ask your primary doctor or pharmacist before taking any other medication not listed, including over the counter drugs, herbal medications, vitamins and or supplements as they may interact withyour home medications. What How Much When Why Instructions Last Dose New ciprofloxacin (Cipro 500 mg oral tablet) 1 tab(s) by mouth Every 12 hours Duration: 7 Days Pickup at [facility] New metroNIDAZOLE (metroNIDAZOLE 500 mg oral tablet) 1 tab(s) by mouth Every 8 hours Duration: 7 Days Pickup at [facility] Unchanged omeprazole (omeprazole 20 mg oral delayed release capsule) 1 cap by mouth Once a day Unchanged ondansetron (Zofran 8 mg oral tablet) 1 tab(s) by mouth Every 8 hours as needed for Nausea/Vomiting Adenocarcinoma of sigmoid colon Pharmacy Information [facility]: [address] [place] [address] [phone] Please take this list to your next doctor s visit. Bring all medications you take, including over the counter medications, herbals and other supplements with you to your doctor s visit. Patients and families are reminded to discard old lists and to update any records with all medication providers or retail pharmacies. Medication Leaflets ciprofloxacin (oral) (SIP megan FLOX a sin) Cipro, Proquin XR What is the most important information I should know about ciprofloxacin? Ciprofloxacin can cause serious side effects, including tendon problems, nerve damage, serious moodor behavior changes, or low blood sugar. Stop using this medicine and call your doctor at once if you have: headache, hunger, irritability, numbness, tingling, burning pain, confusion, agitation, paranoia, problems with memory or concentration, thoughts of suicide, or sudden pain or movement problems in any of your joints. In rare cases, ciprofloxacin may cause damage to your aorta, which could lead to dangerous bleedingor . Get emergency medical help if you have severe and constant pain in your chest, stomach, or back. What is ciprofloxacin? Ciprofloxacin is a fluoroquinolone (dkks-i-BHBH-o-lone) antibiotic, it is used to treat different types of bacterial infections. It is also used to treat people who have been exposed to anthrax or certain types of plague. Ciprofloxacin extended-release is only approved for use in adults. Fluoroquinolone antibiotics can cause serious or disabling side effects that may not be reversible.Ciprofloxacin should be used only for infections that cannot be treated with a safer antibiotic. Ciprofloxacin may also be used for purposes not listed in this medication guide. What should I discuss with my healthcare provider before taking ciprofloxacin? You should not use ciprofloxacin if you are allergic to it, or if: you also take tizanidine; or you are allergic to other fluoroquinolones (levofloxacin, moxifloxacin, norfloxacin, ofloxacin). Ciprofloxacin may cause swelling or tearing of a tendon (the fiber that connects bones to muscles in the body), especially in the Achilles' tendon of the heel. This can happen during treatment or several months after you stop taking ciprofloxacin. Tendon problems may be more likely in children and older adults, or people who use steroid medicine or have had an organ transplant. Tell your doctor if you have ever had: arthritis or problems with your tendons, bones or joints (especially in children); diabetes, low blood sugar; nerve problems; an aneurysm or blood circulation problems; heart problems, or a heart attack; muscle weakness, myasthenia gravis; liver or kidney disease; a seizure, head injury, or brain tumor; trouble swallowing pills; long QT syndrome (in you or a family member); or low levels of potassium in your blood (hypokalemia). Do not give this medicine to a child without medical advice. It is not known whether this medicine will harm an unborn baby. Tell your doctor if you are . You should not breastfeed while taking ciprofloxacin and for 2 days after your last dose. Ask your doctor about if you take ciprofloxacin for anthrax exposure. How should I take ciprofloxacin? Follow all directions on your prescription label and read all medication guides or instruction sheets. Use the medicine exactly as directed. Take ciprofloxacin at the same time each day, with or without food. Shake the oral suspension (liquid) for 15 seconds before you measure a dose. Use the dosing syringeprovided, or use a medicine dose-measuring device (not a kitchen spoon). Do not give ciprofloxacin oral suspension through a feeding tube. Swallow the extended-release tablet whole and do not crush, chew, or break it. Drink plenty of liquids while you are taking ciprofloxacin. Use this medicine for the full prescribed length of time, even if your symptoms quickly improve. Skipping doses can increase your risk of infection that is resistant to medication. Ciprofloxacin willnot treat a viral infection such as the flu or a common cold. Do not share ciprofloxacin with another person. Store at room temperature away from moisture and heat. Do not allow the liquid medicine to freeze. Throw away any unused liquid after 14 days. What happens if I miss a dose? If you take regular tablets or oral suspension: Take the medicine as soon as you can, but skip the missed dose if your next dose is due in less than 6 hours. If you take extended-release tablets: Take the medicine as soon as you can, but skip the missed dose if your next dose is due in less than 8 hours. Do not take two doses at one time. What happens if I overdose? Seek emergency medical attention or call the Poison Help line at . What should I avoid while taking ciprofloxacin? Do not take ciprofloxacin with dairy products such as milk or yogurt, or with calcium-fortified juice. You may eat or drink these products with your meals, but do not use them alone when taking ciprofloxacin. Antibiotic medicines can cause diarrhea, which may be a sign of a new infection. If you have diarrhea that is watery or bloody, call your doctor before using anti-diarrhea medicine. Ciprofloxacin could make you sunburn more easily. Avoid sunlight or tanning beds. Wear protective clothing and use sunscreen (SPF 30 or higher) when you are outdoors. Tell your doctor if you have severe burning, redness, itching, rash, or swelling after being in the sun. Avoid driving or hazardous activity until you know how this medicine will affect you. Your reactions could be impaired. What are the possible side effects of ciprofloxacin? Get emergency medical help if you have signs of an allergic reaction (hives, difficult breathing, swelling in your face or throat) or a severe skin reaction (fever, sore throat, burning in your eyes,skin pain, red or purple skin rash that spreads and causes blistering and peeling). Ciprofloxacin can cause serious side effects, including tendon problems, damage to your nerves (which may be permanent), serious mood or behavior changes (after just one dose), or low blood sugar (which can lead to coma). Stop taking this medicine and call your doctor at once if you have: low blood sugar--headache, hunger, irritability, dizziness, nausea, fast heart rate, or feeling shaky; nerve damage symptoms--numbness, tingling, burning pain in your hands, arms, legs, or feet: serious mood or behavior changes--nervousness, confusion, agitation, paranoia, hallucinations, memory problems, trouble concentrating, thoughts of suicide; or signs of tendon rupture--sudden pain, swelling, bruising, tenderness, stiffness, movement problems,or a snapping or popping sound in any of your joints (rest the joint until you receive medical careor instructions). In rare cases, ciprofloxacin may cause damage to your aorta, the main blood artery of the body. This could lead to dangerous bleeding or . Get emergency medical help if you have severe and constant pain in your chest, stomach, or back. Also, stop using ciprofloxacin and call your doctor at once if you have: severe stomach pain, diarrhea that is watery or bloody; fast or pounding heartbeats, fluttering in your chest, shortness of breath, and sudden dizziness (like you might pass out); any skin rash, no matter how mild; muscle weakness, breathing problems; little or no urination; jaundice (yellowing of the skin or eyes); or increased pressure inside the skull--severe headaches, ringing in your ears, dizziness, nausea, vision problems, pain behind your eyes. Common side effects may include: nausea, vomiting, diarrhea, stomach pain; headache; or abnormal liver function tests. This is not a complete list of side effects and others may occur. Call your doctor for medical advice about side effects. You may report side effects to FDA at 3-366-IBN-1641. What other drugs will affect ciprofloxacin? Some medicines can make ciprofloxacin much less effective when taken at the same time. If you take any of the following medicines, take your ciprofloxacin dose 2 hours before or 6 hours after you take the other medicine. the ulcer medicine sucralfate, or antacids that contain calcium, magnesium, or aluminum (such as Maalox, Milk of Magnesia, Mylanta, Pepcid Complete, Rolaids, Tums, and others); didanosine (Videx) powder or chewable tablets; vitamin or mineral supplements that contain calcium, iron, magnesium, or zinc. Tell your doctor about all your other medicines, especially: clozapine, cyclosporine, methotrexate, phenytoin, probenecid, ropinirole, sildenafil, or theophylline; a blood thinner (warfarin, Coumadin, Jantoven); heart medication or a diuretic or 'water pill'; oral diabetes medicine; products that contain caffeine; medicine to treat depression or mental illness; steroid medicine (such as prednisone); o NSAIDs (nonsteroidal anti-inflammatory drugs)--aspirin, ibuprofen (Advil, Motrin), naproxen (Aleve), celecoxib, diclofenac, indomethacin, meloxicam, and others; This list is not complete. Other drugs may affect ciprofloxacin, including prescription and lapw-kwz-oxfysop medicines, vitamins, and herbal products. Not all possible drug interactions are listed here. Where can I get more information? Your pharmacist can provide more information about ciprofloxacin. Remember, keep this and all other medicines out of the reach of children, never share your medicines with others, and use this medication only for the indication prescribed. Every effort has been made to ensure that the information provided by [employer]. ('[employer]') is accurate, up-to-date, and complete, but no guarantee is made to that effect. Drug information contained herein may be time sensitive. [employer] information has been compiled for use by healthcare practitioners and consumers in the [place] and therefore [employer] does not warrant that uses outside of the [place] are appropriate, unless specifically indicated otherwise. [employer] drug information does not endorse drugs, diagnose patients or recommend therapy. [employer] drug information isan informational resource designed to assist licensed healthcare practitioners in caring for their p atients and/or to serve consumers viewing this service as a supplement to, and not a substitute for, the expertise, skill, knowledge and judgment of healthcare practitioners. The absence of a warningfor a given drug or drug combination in no way should be construed to indicate that the drug or drug combination is safe, effective or appropriate for any given patient. [employer] does not assume any responsibility for any aspect of healthcare administered with the aid of information [employer] provides. The information contained herein is not intended to cover all possible uses, directions, precautions, warnings, drug interactions, allergic reactions, or adverse effects. If you have questions about the drugs you are taking, check with your doctor, nurse or pharmacist. Copyright 2409-2877 [employer]. Version: 23.01. Revision Date: 01/13/2020. metronidazole (oral/injection) (me vargasyenny CALOS ortizyenny) FIRST Metronidazole, Flagyl What is the most important information I should know about metronidazole? Do not drink alcohol or consume foods or medicines that contain propylene glycol while you are taking metronidazole and for at least 3 days after you stop taking it. Metronidazole has caused cancer in animal studies. However, it is not known whether this would occur in humans. Ask your doctor about your risk. What is metronidazole? Metronidazole is an antibiotic that is used to treat bacterial infections of the vagina, stomach, liver, skin, joints, brain and spinal cord, lungs, heart, or bloodstream. Metronidazole is also used to treat trichomoniasis, a sexually transmitted disease caused by a parasite. Usually both sexual partners are treated at the same time, even if one has no symptoms. Do not use metronidazole to treat any condition that has not been checked by your doctor. Metronidazole may also be used for purposes not listed in this medication guide. What should I discuss with my healthcare provider before using metronidazole? You should not use this medicine if you are allergic to metronidazole, secnidazole, or tinidazole, or if: you drank alcohol in the past 3 days; you consumed foods or medicines that contain propylene glycol in the past 3 days; or you took disulfiram (Antabuse) within the past 14 days. May harm an unborn baby. Do not use metronidazole to treat trichomoniasis during the first trimester of . Tell your doctor if you become . Not all uses of metronidazole are approved for treating children and teenagers. Metronidazole is not approved to treat vaginal infections in girls who have not begun having menstrual periods. Tell your doctor if you have ever had: liver disease; kidney disease (or if you are on dialysis); a heart rhythm disorder; a stomach or intestinal disease such as Crohn's disease; a blood cell disorder such as anemia (lack of red blood cells) or low white blood cell (WBC) counts; a fungal infection anywhere in your body; or a nerve disorder. Metronidazole has caused cancer in animal studies. However, it is not known whether this would occur in humans. Ask your doctor about your risk. You should not breastfeed within 24 hours after using metronidazole. If you use a breast pump during this time, throw out the milk and do not feed it to your baby. How should I use metronidazole? Follow all directions on your prescription label and read all medication guides or instruction sheets. Use the medicine exactly as directed. Metronidazole oral is taken by mouth. Metronidazole injection is given as an infusion into a vein. A healthcare provider will give you this injection if you are unable to take the medicine by mouth. Shake the oral suspension (liquid). Measure a dose with the supplied measuring device (not a kitchen spoon). Swallow the extended-release tablet whole and do not crush, chew, or break it. If you are treating a vaginal infection, your sexual partner may also need to take metronidazole soyou don't become reinfected. Metronidazole is usually given for up to 10 days in a row. You may need to repeat this dosage several weeks later. Keep using this medicine even if your symptoms quickly improve. Skipping doses could make your infection resistant to medication. Metronidazole will not treat a viral infection (flu or a common cold). Metronidazole will not treat a vaginal yeast infection. You may even develop a new vaginal yeast infection, which may need to be treated with antifungal medication. Tell your doctor if you have symptoms such as itching or discharge during or after treatment with metronidazole. Do not share this medicine with another person, even if they have the same symptoms you have. This medicine can affect the results of certain medical tests. Tell any doctor who treats you that you are using metronidazole. Store at room temperature away from moisture and heat. What happens if I miss a dose? Take the medicine as soon as you can, but skip the missed dose if it is almost time for your next dose. Do not take two doses at one time. What happens if I overdose? Seek emergency medical attention or call the Poison Help line at . Overdose symptoms may include nausea, vomiting, numbness, tingling, or problems with balance or muscle movement. What should I avoid while using metronidazole? While taking metronidazole and for 3 days after your last dose: Do not drink alcohol or consume foods, medicines, or other products that contain alcohol or propylene glycol. You may have unpleasant effects such as headaches, nausea, vomiting, stomach cramps, and warmth or tingling under your skin. What are the possible side effects of metronidazole? Get emergency medical help if you have signs of an allergic reaction (hives, itching, warmth or tingling; fever, joint pain; dry mouth, dry vagina; stuffy nose, difficult breathing, swelling in your face or throat) or a severe skin reaction (fever, sore throat, burning eyes, skin pain, red or purple skin rash with blistering and peeling). Call your doctor at once if you have: new or worsening symptoms of infection; painful or difficult urination; confusion; a light-headed feeling (like you might pass out); vaginal itching or discharge; or blisters or ulcers in your mouth, red or swollen gums, trouble swallowing. 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 Metronidazole can cause life-threatening liver problems in people with Cockayne syndrome. If you have this condition, stop taking metronidazole and contact your doctor if you have signs of liver failure--nausea, stomach pain (upper right side), dark urine, natalie-colored stools, or jaundice (yellowing of the skin or eyes). Side effects may be more likely in older adults. Common side effects may include: depression, trouble sleeping, feeling irritable; headache, dizziness, weakness; nausea, vomiting, loss of appetite, stomach pain; diarrhea, constipation; unpleasant metallic taste; rash, itching; vaginal itching or discharge, pain during sex; mouth sores; or swollen, red, or 'hairy' tongue. This is not a complete list of side effects and others may occur. Call your doctor for medical advice about side effects. You may report side effects to FDA at 7-872-YTF-3480. What other drugs will affect metronidazole? Sometimes it is not safe to use certain medicines at the same time. Some drugs can affect your blood levels of other drugs you use, which may increase side effects or make the medicines less effective. Tell your doctor about all your current medicines. Many drugs can affect metronidazole, especially: an antidepressant; asthma medication; busulfan or other cancer medicine; heart or blood pressure medication; lithium or other antipsychotic medicine; medicine to treat malaria, HIV, or other infection; or a blood thinner--warfarin, Coumadin, Jantoven. This list is not complete and many other drugs may affect metronidazole. This includes prescriptionand vcly-oag-wkauhzn medicines, vitamins, and herbal products. Not all possible drug interactions are listed here. Where can I get more information? Your pharmacist can provide more information about metronidazole. Remember, keep this and all other medicines out of the reach of children, never share your medicines with others, and use this medication only for the indication prescribed. Every effort has been made to ensure that the information provided by [employer]. ('[employer]') is accurate, up-to-date, and complete, but no guarantee is made to that effect. Drug information contained herein may be time sensitive. [employer] information has been compiled for use by healthcare practitioners and consumers in the [place] and therefore [employer] does not warrant that uses outside of the [place] are appropriate, unless specifically indicated otherwise. [employer] drug information does not endorse drugs, diagnose patients or recommend therapy. [employer] drug information isan informational resource designed to assist licensed healthcare practitioners in caring for their p atients and/or to serve consumers viewing this service as a supplement to, and not a substitute for, the expertise, skill, knowledge and judgment of healthcare practitioners. The absence of a warningfor a given drug or drug combination in no way should be construed to indicate that the drug or drug combination is safe, effective or appropriate for any given patient. [employer] does not assume any responsibility for any aspect of healthcare administered with the aid of information [employer] provides. The information contained herein is not intended to cover all possible uses, directions, precautions, warnings, drug interactions, allergic reactions, or adverse effects. If you have questions about the drugs you are taking, check with your doctor, nurse or pharmacist. Copyright [id number] [employer]. Version: 18.. Revision Date: 02/14/2023. Education Materials Colostomy Home Guide, Adult Colostomy surgery is done to create an opening in the front of the abdomen for stool (feces) to leave the body through an ostomy (stoma). Part of the large intestine is attached to the stoma. A bag, also called a pouch, is fitted over the stoma. Stool and gas will collect in the bag. After surgery, you will need to empty and change your colostomy bag as needed. You will also need to care for your stoma. How to care for the stoma Your stoma should look pink, red, and moist, like the inside of your cheek. Soon after surgery, thestoma may be swollen, but this swelling will go away within 6 weeks. To care for the stoma: Keep the skin around the stoma clean and dry. Use a clean, soft washcloth to gently wash the stoma and the skin around it. Clean using a circularmotion, and wipe away from the stoma opening, not toward it. ? Use warm water and only use cleansers recommended by your health care provider. ? Rinse the stoma area with plain water. ? Dry the area around the stoma well. Use stoma powder or ointment on your skin only as told by your health care provider. Do not use anyother powders, gels, wipes, or creams on the skin around the stoma. Check the stoma area every day for signs of infection. Check for: ? New or worsening redness, swelling, or pain. ? New or increased fluid or blood. ? Pus or warmth. Measure the stoma opening regularly and record the size. Watch for changes. (It is normal for the stoma to get smaller as swelling goes away.) Share this information with your health care provider. How to empty the colostomy bag Empty your bag at bedtime and whenever it is one-third to one-half full. Do not let the bag get more than half-full with stool or gas. The bag could leak if it gets too full. Some colostomy bags havea built-in gas release valve that releases gas often throughout the day. Follow these basic steps: 1. Wash your hands with soap and water. 2. Sit far back on the toilet seat. 3. Put several pieces of toilet paper into the toilet water. This will prevent splashing as you empty stool into the toilet. 4. Remove the clip or the hzoc-ltz-nmqc fastener from the tail end of the bag. 5. Unroll the tail, then empty the stool into the toilet. 6. Clean the tail with toilet paper or a moist towelette. 7. Reroll the tail, and close it with the clip or the atqa-kgh-sfuw fastener. 8. Wash your hands again. How to change the colostomy bag Change your bag every 3 4 days or as often as told by your health care provider. Also change the bag if it is leaking or from the skin, or if your skin around the stoma looks or feels irritated. Irritated skin may be a sign that the bag is leaking. Always have colostomy supplies with you, and follow these basic steps: 1. Wash your hands with soap and water. Have paper towels or tissues nearby to clean any discharge. 2. Remove the old bag and skin barrier. Use your fingers or a warm cloth to gently push the skin away from the barrier. 3. Clean the stoma area with water or with mild soap and water, as directed. Use water to rinse away any soap. 4. Dry the skin. You may use the cool setting on a hair stylist to do this. 5. Use a tracing pattern (template) to cut the skin barrier to the size needed. 6. If you are using a two-piece bag, attach the bag and the skin barrier to each other. Add the barrier ring, if you use one. 7. If directed, apply stoma powder or skin barrier gel to the skin. 8. Warm the skin barrier with your hands, or blow with a hair stylist for 5 10 seconds. 9. Remove the paper from the adhesive strip of the skin barrier. 10. Press the adhesive strip onto the skin around the stoma. 11. Gently rub the skin barrier onto the skin. This creates heat that helps the barrier to stick. 12. Apply stoma tape to the edges of the skin barrier, if desired. 13. Wash your hands again. General recommendations Avoid wearing tight clothes or having anything press directly on your stoma or bag. Change your clothing whenever it is soiled or damp. You may shower or bathe with the bag on or off. Do not use harsh or oily soaps or lotions. Dry the skin and bag after bathing. Store all supplies in a cool, dry place. Do not leave supplies in extreme heat because some parts can melt or not stick as well. Whenever you leave home, take extra clothing and an extra skin barrier and bag with you. If your bag gets wet, you can dry it with a hair stylist on the cool setting. To prevent odor, you may put drops of ostomy deodorizer in the bag. If recommended by your health care provider, put ostomy lubricant inside the bag. This helps stool to slide out of the bag more easily and completely. Contact a health care provider if: You have new or worsening redness, swelling, or pain around your stoma. You have new or increased fluid or blood coming from your stoma. Your stoma feels warm to the touch. You have pus coming from your stoma. Your stoma extends in or out farther than normal. You need to change your bag every day. You have a fever. Get help right away if: Your stool is bloody. You have nausea or you vomit. You have trouble breathing. Summary Measure your stoma opening regularly and record the size. Watch for changes. Empty your bag at bedtime and whenever it is one-third to one-half full. Do not let the bag get more than half-full with stool or gas. Change your bag every 3 4 days or as often as told by your health care provider. Whenever you leave home, take extra clothing and an extra skin barrier and bag with you. This information is not intended to replace advice given to you by your health care provider. Make sure you discuss any questions you have with your health care provider. Document Released: 06/19/2004 Document Revised: 10/07/2019 Document Reviewed: 12/11/2017 Elsevier Patient Education 2020 [employer] Agustin Mott Drain Patient Education After surgery, you may notice a bulb-like drain, called a Agustin-Mott (LYLA) connected to tubing coming from your incision. This drain suctions and collects fluid from your incisional area. It also promotes healing and reduces the chance of infection You may have the drain for several days after surgery. While you are hospitalized, your nurse will take care of it. If you go home with the drain in place, you will need to care for it yourself. The process is easy to learn. Your nurse will show you how. How to empty the LYLA drain 1. Empty the drainage bottle as needed (usually 3 times/day), when it is half full, or as often as directed. 2. Obtain a measuring cup to collect the fluid. 3. Wash your hands thoroughly with soap and water. 4. Unpin the bottle from your dressing or shirt. 5. Remove the rubber stopper from the bottle. 6. Turn the bottle upside-down and squeeze the contents into the measuring cup. Completely empty the bottle. Note: To prevent infection, don t let the rubber stopper or top of the bottle touch the measuring cup or anything else. 7. Clean the plug with an alcohol swab or cotton ball dipped in rubbing alcohol. 8. Use one hand to squeeze all of the air from the bottle. 9. With the bottle still compressed, use your other hand to replace the rubber stopper. Do this to make sure the drain suction works well. The bottle should stay flat until it starts to fill with fluid again. 10. Pin the bottle back on your dressing or shirt to avoid pulling it out accidently. 11. Flush the fluid down the toilet. 12. Wash your hands again. Write down the time, amount and color of the drainage. Always remember to wash your hands before and after the procedure to reduce the risk of infecting the incisional area What should I do if the tubing becomes clogged? Hold the tubing between your thumb and first finger at the place closest to your skin. This hand will prevent the tube from being pulled out of your skin. Use your other thumb and first finger to slide the clog down the tubing toward the bulb. You may have to repeat the sliding until the tubing is unclogged. When should I seek immediate care? Your LYLA drain breaks or comes out When should I contact my healthcare provider? You think your LYLA drain is blocked You have brown drainage from your LYLA drain site, or the drainage smells bad You have a fever higher than 101 F (38.6 C) You have increased pain, redness or swelling around the drain site You have questions about your LYLA drain care DRAINAGE RECORD Date Time Amount Document Released: 06/17/2006 Document Revised: 06/03/2013 Document Reviewed: 06/18/2014 ExitCare Patient Information 2015 [employer]. This information is not intended to replace advicegiven to you by your health care provider. Make sure you discuss any questions you have with your health care provider. Additional Information VACCINATE! IT SAVES LIVES! Members of the community who have not yet received the COVID-19 vaccine and would like to receive it can visit one of [facility] vaccine clinics. There are many vaccine clinic locations within the [facility]. For locations and available times, please visit [email or web address]/. It is important to note that some COVID mobile vaccine clinics are held outdoors and may be canceled in rainy or stormy conditions. To learn more about pediatric vaccinations (ages 5-11), we invite you to visit the [employer] [facility] webpage. [email or web address] learn more about the COVID-19 vaccine, we invite you to visit the CDC website for a list of frequently asked questions.https://www.cdc.gov/coronavirus/2019-ncov/vaccines/faq.html [employer] Patient Portal Access Instructions: Stay connected with your healthcare team and access your personal medical information anytime with the [employer] Patient Portal. Please follow the directions below to create your [employer] account: 1.Access the email account you provided upon registration to the hospital/physician office.2.Look for an invitation email from [facility].3.Open the email and access the invitation link: AcceptInvitation to [employer].4.Fill in the required wetzel to create your account. To access your account, visit [employer]/My [employer] WorksOneChart. Click the blue button labeled Access Patient Portal and then log in with the username and password that you created in the steps above. You will be able to view your test results, lab results, a summary of your visits, upcoming appointments and more. There is also a convenient messaging option where you can send secure messages to your p [employer]. In addition, you will have the ability to download any documents or summaries to your computer and/or send the information securely to a physician. Remember that your healthcare information is confidential, so carefully consider who you will allowto register on the [employer] Patient Portal for access to your information. You can also access the [employer] Patient Portal on the [employer] Anywhere patrizia. Simply click on Patient Portal and then log into your account. If you would like to receive a full copy of your medical records, please contact the [facility] Medical Records Department by calling [phone], Saturday through Saturday between 8 a.m. and 4:30 p.m. HOW TO SAFELY DISPOSE OF PRESCRIPTION MEDICATIONS Please use one of the following methods to safely dispose of your unused medications. 1.Use a drug disposal kit: the drug disposal pouch allows you to safely discard your old and unuseddrugs. Ask your nurse to give you one when you are discharged.2.Visit a local take-back location: Many local pharmacies and police departments have programs that collect old and unwanted prescriptiondrugs. Call your local pharmacy or go to http://nooked.[employer]/9V8Xk2g to find one close to you.3.Make use of household items: Use cat litter or old coffee grounds to dispose medications if other options arenot available. Mix your drugs with these household products, seal them in an airtight container andthrow it into the garbage. Call [facility]: [phone] to be sure your drugs can be disposed of in this way. Some medicines may require a different approach.4.Never flush your medications down the toilet. IF YOU HAVE BEEN PRESCRIBED AN OPIOID FOR PAIN If you have been prescribed an opioid (such as hydrocodone, oxycodone or morphine), it is critical to understand the possible side effects and risks of opioid pain medications. Even when taken as directed, opioids can have several side effects including: Tolerance, meaning you might need to take more of a medication for the same pain relief. Nausea, vomiting and/or constipation. Sleepiness, dizziness, dry mouth, confusion, depression or itching. Physical dependence, meaning you have withdrawal symptoms when a medication is stopped, can develop within a few days. KNOW YOUR RESPONSIBILITIES It is important to know exactly how much and how often to take the opioid pain medications you are prescribed. Never take opioids in higher amounts or more often than prescribed. Do not combine opioids with alcohol or other drugs that cause drowsiness, such as benzodiazepines, also known as benzos, including diazepam and alprazolam, muscle relaxants or sleep aids. Never sell or share prescription opioids. This is illegal. Store opioids in a secure place and out of reach of others (including children, family, friends and visitors). The last page of this document has been signed and retained as a CHART COPY. Signatures Patient Education Materials Colostomy Home Guide, Adult 8- Agustin Mott Drain (03/2018)(CUSTOM) Medication Leaflets ciprofloxacin (oral), metronidazole (oral/injection) My discharge plan and instructions have been reviewed and explained to me and I,CLARISSE PEGUERO understand my current condition and have read and understand these discharge instructions. I have received a written copy of the plan/instructions. If I have questions, I am aware that I should contact my d octor. 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 She could tell do to smell. Pointed out area of leakage along 7-8 O'clock near umbilicus that shadowing could be seen through wafer. After removal of appliance pointed out this area where the mucosal lumen is leaking, as well as, small leak at 3-4 O'clock with stool lumen. Went over Maddie rings, ostomy paste & skin barrier wipes to help adhere wafer. Pointed at significant crease distal stoma. Then applied skin barrier wipe, Maddie ring around stoma, covering keisha & another half of Maddie ring half villavicencio shape to hug distal stoma from 3-9 o'clock. Then applied small bead around cut to fit opening, applied 1 piece cut to fit appliance. Pointed out how distal crease could use more of a build up with Maddie ring or paste if leakage occurs again. Stoma 2* 1 3/4 inches, Patient agreeable to me + program. Digitally Signed by MELA Jacobson on 08/31/2024 10:20 AM [id number] Progress note Date of Service 08/31/2024 Chief Complaint Postoperative day #2 Subjective Examination patient she is seen sitting up in the chair. Patient reporting that she is slowly learning how to take care of her ostomy. Patient reports that she is eating without difficulty she deniesany nausea, vomiting or abdominal pain at this time. Objective Vitals and Measurements T: 36.6 C (Oral) TMIN: 36.4 C (Oral) TMAX: 36.8 C (Oral) HR: 76 (Apical) RR: 16 BP: 112/62 SpO2: 95% Intake and Output 7AM Yesterday to 7AM Today Intake and Output (Last 24 hours) Intake Oral Intake 820.00 Supplement Intake 120.00 Output Surgical Drain, Tube Output: 20.00 Urine Voided 1850.00 Ostomy Stool Volume: 250.00 Stool Count 1.00 Urine Count 0.00 Total Summary Total Intake 940.00 Total Output 2120.00 Fluid Balance -1180.00 Physical Exam General: Awake and alert and in no apparent distress. Able to answer questions and speak in full sentences. Supine in bed. Sitting upright. HEENT: Mucous membranes moist and pink. Sclerae anicteric. PERRLA. Lungs: Chest rise symmetrical. Respirations unlabored. Abdomen: Round, soft, stoma pink and viable stoma keisha in place, stool in appliance bag. LYLA drain intact with purulent drainage in bulb. Extremities: Freely moving. Skin: Normal color for ethnicity. No pallor or diaphoresis. No jaundice. Psychiatric: Calm and cooperative. Weight Dosing Weight: 99.8 kg (08/19/24) Dosing Weight: 99.8 kg (08/19/24) Medications Medications (20) Active Scheduled: (6) enoxaparin 40 mg/ 0.4mL syringe 40 mg 0.4 mL, Subcutaneous, qDay ketorolac 15 mg/mL vial 15 mg 1 mL, IV Push, q6hr [facility] [place] order 1 EA, Miscellaneous, Daily omeprazole [address] capsule 20 mg 1 cap(s), Oral, qDay piperacillin-tazobactam PMX 4.5 gram(s) 100 mL, IV Piggyback, q8h sodium chloride 0.9% 10 ml syringe cristina flush 10 mL, IR Drain, q8h Continuous: (0) PRN: (14) acetaminophen 325 mg Tablet 650 mg 2 tab(s), Oral, q4h acetaminophen-HYDROcodone 325-5 mg tablet 2 tab(s), Oral, q4h acetaminophen-OXYcodone 325 mg-5 mg Tablet 1 tab(s), Oral, q4h acetaminophen-OXYcodone 325 mg-5 mg Tablet 2 tab(s), Oral, q4h dextrose 50% Solution Disp syringe 50 mL 25 gram(s) 50 mL, IV Push, AsDirected docusate-senna (Senokot S) 50 mg-8.6 mg Tablet 1 tab(s), Oral, qDay HYDROmorphone 0.5 mg/0.5 mL syringe 0.5 mg 0.5 mL, IV Push, q4h melatonin 3 mg tablet 3 mg 1 tab(s), Oral, qHS melatonin 3 mg tablet 3 mg 1 tab(s), Oral, qHS morphine 2 mg/mL 1 mL syringe 2 mg 1 mL, IV Push, q3h morphine 4 mg/mL 1mL INJ 4 mg 1 mL, IV Push, q3h ondansetron 2 mg/ 1 mL 2 mL INJ 4 mg 2 mL, IV Push, q4h ondansetron 8 mg tablet 8 mg 1 tab(s), Oral, q8h polyethylene glycol 3350 - UD packet 17 gram(s) 15 mL, Oral, qDay Lab Results 03/ 07:12 WBC: 10.9 H Hgb: 7.3 L Hct: 23.8 L Platelet: 550 H Neutrophil %: 80.0 H Glucose Level: 99 Sodium Level: 139 Potassium Level: 3.5 BUN: 9.0 Creatinine Lvl (s): 0.44 L 03/ 10:57 WBC: 12.7 H Hgb: 8.0 L Hct: 24.5 L Platelet: 529 H Neutrophil %: 78.0 H Glucose Level: 137 H Sodium Level: 139 Potassium Level: 3.0 L BUN: 13.0 Creatinine Lvl (s): 0.54 EKG No qualifying data available. 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 Overall the patient is doing well from surgical standpoint. Vital signs, laboratory data I/O have been reviewed. Patient's stoma is pink and viable and there is stool in the appliance bag. Plan: 1. Postoperative day #2 -Continue with multimodality pain control -Continue with diet as tolerated -Continue with LYLA drain//care as ordered -Continue with ostomy teaching will order home RN for disease management -From a surgical standpoint the patient can be discharged when medically optimized by the primary team. -Patient to follow-up with Dr. Rodrigez in the office Case has been discussed with Dr. Rodrigez. Please see his addendum to follow. This document was dictated with voice recognition software and may contain grammatical errors Digitally Signed by TYRONE CHAVES on 08/31/2024 10:20 AM [id number] Interventional radiology Progress note Interventional Radiology Progress Note IR Procedure 1. 10 Fr pelvic abscess drainage catheter insertion - 08/26/2024 Subjective 44-year-old female metastatic sigmoid cancer to the liver with recurrent pelvic abscess day 5 post percutaneous drainage catheter placement. On 08/28/2024 patient underwent diverting loop colostomy with general surgery. Patient reports feeling well - her biggest concern at this time is leaking from her ostomy site bandage. States she has had continued output from drain. Per chart review, documented output of 35mL on 08/30/2024. Physical Exam Vitals: Okfeqnwzynq97.6 (06:43) Systolic Blood Dqviqhru810 (06:43) Diastolic Blood Giuljiwd92 (06:43) Pulse76 (06:43) JrS180 (06:43) Respiratory RateNo result General: Alert, nontoxic, no acute distress. RIGHT buttock: 10 Fr drainage catheter is noted with dressing that is slightly saturated and intact. Cloudy/purulent output noted in LYLA bulb. No kinks or clogging noted in the drainage tubing. No surrounding erythema, ecchymosis, warmth. The remainder of the physical exam is noncontributory. Labs Relevant labs reviewed. Complete Blood Count WBC: 10.9 10^3/mcL High (08/31/24 07:12:00) WBC: 12.7 10^3/mcL High (08/30/24 10:57:00) RBC: 3.44 10^6/mcL Low (08/31/24 07:12:00) RBC: 3.54 10^6/mcL Low (08/30/24 10:57:00) Hgb: 7.3 G/dL Low (08/31/24 07:12:00) Hgb: 8 G/dL Low (08/30/24 10:57:00) Hct: 23.8 % Low (08/31/24 07:12:00) Hct: 24.5 % Low (08/30/24 10:57:00) MCV: 69.1 fL Low (08/31/24 07:12:00) MCV: 69.4 fL Low (08/30/24 10:57:00) MCH: 21.2 pg Low (08/31/24 07:12:00) MCH: 22.6 pg Low (08/30/24 10:57:00) MCHC: 30.7 G/dL Low (08/31/24 07:12:00) MCHC: 32.6 G/dL (08/30/24 10:57:00) RDW: 18 % High (08/31/24 07:12:00) RDW: 17.7 % High (08/30/24 10:57:00) Platelet: 550 10^3/mcL High (08/31/24 07:12:00) Platelet: 529 10^3/mcL High (08/30/24 10:57:00) MPV: 8.5 fL (08/31/24 07:12:00) MPV: 8.4 fL (08/30/24 10:57:00) Output Intake and Output (Last 24 hours) Intake Oral Intake 1060.00 Supplement Intake 360.00 Output Surgical Drain, Tube Output: 35.00 Urine Voided 1850.00 Ostomy Stool Volume: 150.00 Stool Count 1.00 Urine Count 0.00 Total Summary Total Intake 1420.00 Total Output 2035.00 Fluid Balance -615.00 Imaging IR Aspiration/Drainage Result Date: August 26, 2024 Verified By: KENAN JOSE MD CLINICAL STATEMENT: IMPRESSION: 1. Successful image guided pigtail drainage catheter placement.2. Catheter and bag should be flushed with 10 mL sterile normal saline TID asinpatient and then once a day after discharge.3. Suggest catheter removal once daily output is less than 10 mL and followup imaging demonstrates resolution and/or no evidence of fistula.The procedure was done with participation of the resident in my presence anddirect supervision. I have reviewed the images and the findings with theresident and agree with the contents of the report. Assessment/Treatment Plan 44-year-old female with history of sigmoid cancer and recurrent pelvic abscess day 5 post pelvic abscess drainage catheter insertion. The abscess drainage catheter appears to be draining well. Culture positive for ecoli. Patient underwent diverting colostomy on 08/28/2024 with general surgery. Defer concern for leaking from ostomy bandage to general surgery. Dressing at drainage catheter waschanged. There is a possibility for a fistulous communication given this has occurred in the past and the location of her pelvic abscess. Will continue with flushing at this point to decompress the acute infection. Once a contrast injection confirms a fistula, then will stop flushing. Management and follow up was discussed and reviewed with the patient - although she is familiar with the follow up she underwent in the fall. Recommend removal of abscess drainage catheter when dailyoutput <10 cc and imaging shows resolution of abscess and no fistula. Will plan for follow-up with IR 1-2 weeks after discharge for CT abd/pelvis and drainage catheter evaluation to evaluate abscess and possibly remove drain. Discussed case with Dr. Jose. IR Follow Up Plan -Monitor output from abscess drainage catheter -Flush drainage catheter with 10mL NS TID as an inpatient and once daily as an outpatient -Flush prescription on patient chart -CT abd/pelvis and drain cath eval in 1-2 weeks - orders placed Deanna Oliver PA-C Interventional Radiology Pager: [phone] IR dept: x [phone] Available on [employer] Digitally Signed by DEANNA OLIVER PA-C on 08/31/2024 08:34 AM Digitally Signed by KENAN JOSE MD on 08/31/2024 02:18 PM [id number] Note Skin team received consult for creation of new Left upper quadrant loop colostomy. Upon assessment,it was noted that patient's current appliance is lifted at site of umbilicus where odor is escaping, no leakage noted until removal of current appliance. Peristomal skin and stoma cleansed. Patient has a keisha positioned midline with sutures at 12 O'Clock and moveable end at 6 O'Clock; distal portionof stoma around keisha at 6 O'clock is dusky. There is a surgical dehiscence above keisha at 12 O'clock measuring 1 cm x 0.5 cm that I used 1 Steri- strip to approximate edges. Patient has liquid stool fromlumen of stoma at 9 O'clock and a pasty stool from lumen at 3 O'Clock. Patient has deep abdominal cr eases at sites of keisha placement at 6 O'Clock and 12 O'clock that I folded and double Maddie barrier rings to fill in creases. I next applied one piece Active life drainable pouch, stoma measured 1 3/4in. Patient provided consent to participate [facility]. See Ostomy IVIEW for assessmentand education. Ostomy care orders provided for bedside nursing. Skin team will continue to follow to provide lessons while inpatient. Patient verbalized understanding and verbalized that she has already watched 3 on-demand ostomy videos since admit. Digitally Signed by MELA Elena September on 08/30/2024 04:59 PM [id number] Note* Exam Date Time Procedure Performing Provider Status 08/30/24 3:22 PM VL Venous US/Doppler Both Legs(for DVT) CHARI MEDRANO MD; Auth (Verified) [id number] Note Subjective: Patient seen for multiloculated pelvic abscesses 44-year-old woman with metastatic colon cancer to the liver, presented to the emergency room with right-sided pelvic pain, was found to have multiloculated fluid collection/abscess with suspected fistula in the pelvic area, patient was started on IV antibiotics, hematology oncology, general surgery, IR, infectious disease team were consulted. General surgery team evaluated the patient, initially they recommended to continue with conservative management with IV antibiotics and supportive care, the case was discussed with them along with the hematology oncology team, patient was planned for diverting colostomy, which took place on 08/28/2024. I did discuss the patient's condition with the infectious disease team, we did reach out to the interventional radiology team, patient had a LYLA drain in the abscess on 08/26/2024, and the culture showed 2 types of E. coli. Infectious disease team evaluated the patient, they recommended IV antibiotics, while the patient in the hospital, and discharged the patient on Cipro 500 mg p.o. twice daily, and Flagyl 500 mg p.o. 3 times daily for 7 days Hematology oncology team evaluated the patient, they recommended to hold any further chemotherapy until the patient is done with her antibiotic regimen. patient was examined and evaluated today, patient denies chest pain, no shortness of breath, no cough, no fever or chills, patient is status post diverting loop colostomy, patient is tolerating clearliquid diet, the LYLA drain from the abscess still draining purulent discharges, patient stated that her abdominal pain is better, no headache lightheadedness or dizziness. Family were at the bedside. Vitals Signs(Last 24 hrs)__Last Charted Minimum Maximum Temp36.4(AUG 30 14:43)36.4(AUG 30 14:43)36.7(AUG 29 23:08) Heart Rate67(AUG 29 23:08)67(AUG 29 23:08)67(AUG 29 23:08) WHB908(AUG 30 14:43)100(AUG 30 07:45)124(AUG 29 23:08) DBP71(AUG 30 14:43)L 54(AUG 30 07:45)71(AUG 30 14:43) Physical examination: HEENT, is atraumatic normocephalic, pupils are equal, no pallor Neck supple no JVD Lungs clear to auscultation bilaterally, no wheezes, no rhonchi, no accessory muscle use Heart S1-S2 regular Abdomen soft nontender nondistended bowel sounds are present all 4 quadrants, colostomy is in place Lower extremities show no edema, no cyanosis, pulses palpable +2 bilaterally Skin showed no rash Neurological examination patient is awake alert and oriented 3, cranial nerves are grossly intact, no focal neurological defect could be appreciated Assessment and plan: 1. Multiloculated fluid collection/abscess with suspected fistula in the pelvic area. Post IR drainage on 08/26/2024, cultures showing 2 types of E. coli 2. 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 History of DVT in the lower extremity. 4. Diverticulosis. 5. Sepsis secondary to intra-abdominal abscess. 6. Hypokalemia. 7. Pancytopenia. 8. Anemia. 9. Hypomagnesemia Plan: 1. Continue with IV Zosyn, transition the patient to Cipro 500 mg p.o. twice daily, Flagyl 500 mg p.o. 3 times daily for 7 more days upon discharge 2. Patient needs the colostomy nurse to provide education for her prior to discharge 3. Continue with Lovenox for DVT prophylaxis. 4. General Surgery team recommended advancing the diet as tolerated, encourage ambulation. 5. Continue to monitor patient clinically as well as her labs. Patient understood her plan of care all questions were answered, concerns were addressed, family were at the bedside all the questions were answered as well. Level of Care Indication Regular Floor DVT Prophylaxis Enoxaparin SQ Maintenance IVF Indication NA / No maintenance IVF Indwelling Urinary Catheter Indication NA No indwelling catheter Anticipated Timeline of Discharge 24 hours Anticipated DC Disposition Home c [facility] Labs: Basic Metabolic Profile Glucose Level: 137 mg/dL High (08/30/24 10:57:00) Sodium Level: 139 mEq/L (08/30/24 10:57:00) Potassium Level: 3 mEq/L Low (08/30/24 10:57:00) Chloride: 105 mEq/L (08/30/24 10:57:00) CO2: 26 mEq/L (08/30/24 10:57:00) BUN/Creatinine Ratio: 24.1 ratio High (08/30/24 10:57:00) Complete Blood Count WBC: 12.7 10^3/mcL High (08/30/24 10:57:00) RBC: 3.54 10^6/mcL Low (08/30/24 10:57:00) Hgb: 8 G/dL Low (08/30/24 10:57:00) Hct: 24.5 % Low (08/30/24 10:57:00) MCV: 69.4 fL Low (08/30/24 10:57:00) MCH: 22.6 pg Low (08/30/24 10:57:00) MCHC: 32.6 G/dL (08/30/24 10:57:00) RDW: 17.7 % High (08/30/24 10:57:00) Platelet: 529 10^3/mcL High (08/30/24 10:57:00) MPV: 8.4 fL (08/30/24 10:57:00) Medications (21) Active Scheduled: (7) DAPTOmycin 600 mg 12 mL, IV Piggyback, qDay enoxaparin 40 mg/ 0.4mL syringe 40 mg 0.4 mL, Subcutaneous, qDay ketorolac 15 mg/mL vial 15 mg 1 mL, IV Push, q6hr [facility] communication order 1 EA, Miscellaneous, Daily omeprazole [address] capsule 20 mg 1 cap(s), Oral, qDay piperacillin-tazobactam PMX 4.5 gram(s) 100 mL, IV Piggyback, q8h sodium chloride 0.9% 10 ml syringe cristina flush 10 mL, IR Drain, q8h Continuous: (0) PRN: (14) acetaminophen 325 mg Tablet 650 mg 2 tab(s), Oral, q4h acetaminophen-HYDROcodone 325-5 mg tablet 2 tab(s), Oral, q4h acetaminophen-OXYcodone 325 mg-5 mg Tablet 1 tab(s), Oral, q4h acetaminophen-OXYcodone 325 mg-5 mg Tablet 2 tab(s), Oral, q4h dextrose 50% Solution Disp syringe 50 mL 25 gram(s) 50 mL, IV Push, AsDirected docusate-senna (Senokot S) 50 mg-8.6 mg Tablet 1 tab(s), Oral, qDay HYDROmorphone 0.5 mg/0.5 mL syringe 0.5 mg 0.5 mL, IV Push, q4h melatonin 3 mg tablet 3 mg 1 tab(s), Oral, qHS melatonin 3 mg tablet 3 mg 1 tab(s), Oral, qHS morphine 2 mg/mL 1 mL syringe 2 mg 1 mL, IV Push, q3h morphine 4 mg/mL 1mL INJ 4 mg 1 mL, IV Push, q3h ondansetron 2 mg/ 1 mL 2 mL INJ 4 mg 2 mL, IV Push, q4h ondansetron 8 mg tablet 8 mg 1 tab(s), Oral, q8h polyethylene glycol 3350 - UD packet 17 gram(s) 15 mL, Oral, qDay Signature: Jasmin Mata MD Digitally Signed by JASMIN MATA MD on 08/30/2024 03:20 PM [place] [id number] [facility] Progress note Date of Service 08/30/2024 Subjective No night events. Patient resting this morning. She is complaining of the odor from her ostomy bag. Denies any nausea or vomiting. Objective Vitals and Measurements T: 36.6 C (Oral) TMIN: 36.6 C (Oral) TMAX: 36.7 C (Oral) HR: 64 RR: 16 BP: 100/54 SpO2: 96% Intake and Output 7AM Yesterday to 7AM Today Intake and Output (Last 24 hours) Intake Oral Intake 1020.00 Output Surgical Drain, Tube Output: 30.00 Urine Voided 1100.00 Ostomy Stool Volume: 450.00 Stool Count 1.00 Urine Count 1.00 Total Summary Total Intake 1020.00 Total Output 1580.00 Fluid Balance -560.00 Physical Exam General: A+Ox3 CV: RRR, no MRG Resp: CTAB Abd: Soft, ND, minimal tenderness around the ostomy site, rebound or guarding, positive bowel sounds. Ostomy is pink and patent with stool in pouch Weight Dosing Weight: 99.8 kg (08/19/24) Dosing Weight: 99.8 kg (08/19/24) Medications Medications (21) Active Scheduled: (7) DAPTOmycin 600 mg 12 mL, IV Piggyback, qDay enoxaparin 40 mg/ 0.4mL syringe 40 mg 0.4 mL, Subcutaneous, qDay ketorolac 15 mg/mL vial 15 mg 1 mL, IV Push, q6hr Misc communication order 1 EA, Miscellaneous, Daily omeprazole [address] capsule 20 mg 1 cap(s), Oral, qDay piperacillin-tazobactam PMX 4.5 gram(s) 100 mL, IV Piggyback, q8h sodium chloride 0.9% 10 ml syringe cristina flush 10 mL, IR Drain, q8h Continuous: (0) PRN: (14) acetaminophen 325 mg Tablet 650 mg 2 tab(s), Oral, q4h acetaminophen-HYDROcodone 325-5 mg tablet 2 tab(s), Oral, q4h acetaminophen-OXYcodone 325 mg-5 mg Tablet 1 tab(s), Oral, q4h acetaminophen-OXYcodone 325 mg-5 mg Tablet 2 tab(s), Oral, q4h dextrose 50% Solution Disp syringe 50 mL 25 gram(s) 50 mL, IV Push, AsDirected docusate-senna (Senokot S) 50 mg-8.6 mg Tablet 1 tab(s), Oral, qDay HYDROmorphone 0.5 mg/0.5 mL syringe 0.5 mg 0.5 mL, IV Push, q4h melatonin 3 mg tablet 3 mg 1 tab(s), Oral, qHS melatonin 3 mg tablet 3 mg 1 tab(s), Oral, qHS morphine 2 mg/mL 1 mL syringe 2 mg 1 mL, IV Push, q3h morphine 4 mg/mL 1mL INJ 4 mg 1 mL, IV Push, q3h ondansetron 2 mg/ 1 mL 2 mL INJ 4 mg 2 mL, IV Push, q4h ondansetron 8 mg tablet 8 mg 1 tab(s), Oral, q8h polyethylene glycol 3350 - UD packet 17 gram(s) 15 mL, Oral, qDay Lab Results 08/29 07:16 WBC: 11.7 H Hgb: 7.2 L Hct: 23.6 L Platelet: 399 Neutrophil %: 89.2 H Glucose Level: 142 H Sodium Level: 139 Potassium Level: 3.5 BUN: 9.0 Creatinine Lvl (s): 0.42 L EKG No qualifying data available. Assessment/Plan Adenocarcinoma of sigmoid colon Cancer of colon Cancer, metastatic to liver Colonic fistula Febrile neutropenia Patient is a 44-year-old female postoperative 1 status post exploratory laparotomy, diverting loop colostomy, Overall patient is doing very well. Okay to advance to regular diet. Continue medical management. Patient stable for discharge from a surgical standpoint. She is to follow-up with in 2 weeks. Continue to follow while in house. Digitally Signed by ARLENE RODRIGEZ MD on 08/30/2024 09:32 AM [id number] Oncology Progress note Date of Service 08/29/24 Chief Complaint Pots op follow up Subjective Had diversion colostomy yesterday. Ongoing diarrhea with flatulence. Pain considerably better is getting Toradol. Still having purulent drainage from LYLA drain. Ostomy nurse to see patient today Objective Vitals and Measurements T: 36.6 C (Oral) TMIN: 36.4 C (Oral) TMAX: 37 C (Temporal Artery) HR: 87 RR: 16 BP: 120/75 SpO2: 97% Intake and Output 7AM Yesterday to 7AM Today Intake and Output (Last 24 hours) Intake Oral Intake 360.00 Output Surgical Drain, Tube Output: 50.00 Urine Voided 100.00 Urinary Catheter Output: 1500.00 Ostomy Stool Volume: 50.00 Stool Count 1.00 Urine Count 2.00 Total Summary Total Intake 360.00 Total Output 1700.00 Fluid Balance -1340.00 Physical Exam General Appearance: comfortable , no acute distress Eyes: No scleral icterus , conjunctiva normal ENT: Mucous membrane moist , no sores Neck: Supple, no thyromegaly Cardiac: S1, S2+ no murmurs Lungs: symmetrical expansion bilaterally , Clear to auscultation bilaterally , no wheezes Abdomen: soft , non tender , no organomegaly , ostomy with loose stools , LYLA drain with minimal purulent drainage Weight Dosing Weight: 99.8 kg (08/19/24) Dosing Weight: 99.8 kg (08/19/24) Medications Medications (21) Active Scheduled: (7) DAPTOmycin 600 mg 12 mL, IV Piggyback, qDay enoxaparin 40 mg/ 0.4mL syringe 40 mg 0.4 mL, Subcutaneous, qDay ketorolac 15 mg/mL vial 15 mg 1 mL, IV Push, q6hr Misc communication order 1 EA, Miscellaneous, Daily omeprazole [address] capsule 20 mg 1 cap(s), Oral, qDay piperacillin-tazobactam PMX 4.5 gram(s) 100 mL, IV Piggyback, q8h sodium chloride 0.9% 10 ml syringe cristina flush 10 mL, IR Drain, q8h Continuous: (0) PRN: (14) acetaminophen 325 mg Tablet 650 mg 2 tab(s), Oral, q4h acetaminophen-HYDROcodone 325-5 mg tablet 2 tab(s), Oral, q4h acetaminophen-OXYcodone 325 mg-5 mg Tablet 1 tab(s), Oral, q4h acetaminophen-OXYcodone 325 mg-5 mg Tablet 2 tab(s), Oral, q4h dextrose 50% Solution Disp syringe 50 mL 25 gram(s) 50 mL, IV Push, AsDirected docusate-senna (Senokot S) 50 mg-8.6 mg Tablet 1 tab(s), Oral, qDay HYDROmorphone 0.5 mg/0.5 mL syringe 0.5 mg 0.5 mL, IV Push, q4h melatonin 3 mg tablet 3 mg 1 tab(s), Oral, qHS melatonin 3 mg tablet 3 mg 1 tab(s), Oral, qHS morphine 2 mg/mL 1 mL syringe 2 mg 1 mL, IV Push, q3h morphine 4 mg/mL 1mL INJ 4 mg 1 mL, IV Push, q3h ondansetron 2 mg/ 1 mL 2 mL INJ 4 mg 2 mL, IV Push, q4h ondansetron 8 mg tablet 8 mg 1 tab(s), Oral, q8h polyethylene glycol 3350 - UD packet 17 gram(s) 15 mL, Oral, qDay Lab Results 08/29 07:16 WBC: 11.7 H Hgb: 7.2 L Hct: 23.6 L Platelet: 399 Neutrophil %: 89.2 H Glucose Level: 142 H Sodium Level: 139 Potassium Level: 3.5 BUN: 9.0 Creatinine Lvl (s): 0.42 L 08/28 07:01 WBC: 13.2 H Hgb: 8.0 L Hct: 25.0 L Platelet: 451 H Neutrophil %: 84.3 H Glucose Level: 110 Sodium Level: 138 Potassium Level: 3.2 L BUN: <5.0 L Creatinine Lvl (s): 0.45 L EKG No qualifying data available. Assessment/Plan Adenocarcinoma of sigmoid colon Cancer, metastatic to liver Colonic fistula Febrile neutropenia Underwent diversion colostomy. Continues to have drainage from the LYLA drain placed for pelvic abscess. HB slightly low today at 7.2. Currently receiving therapy daptomycin and pip-tazo. Pain better controlled. Continue antibiotics & pain meds per primary. Transfuse if hemoglobin less than 7. Oncology will follow peripherally-will need to hold restarting chemotherapy if on antimicrobial therapy at discharge. Time Spent [id number] Digitally Signed by ROSEANN LUNDBERG MD on 08/29/2024 02:53 PM [facility] [id number] Note Subjective: Patient seen for multiloculated pelvic abscesses patient was examined and evaluated today, patient denies chest pain, no shortness of breath, no cough, no fever or chills, patient is status post diverting loop colostomy, patient is tolerating clearliquid diet, the LYLA drain from the abscess still draining purulent discharges, patient stated that her abdominal pain is better, no headache lightheadedness or dizziness. Family were at the bedside. Vitals Signs(Last 24 hrs)__Last Charted Minimum Maximum Temp36.5(AUG 29 07:15)36.5(AUG 29:)36.8(AUG 28 16:43) Heart RateL 59(AUG 29:15)L 59(AUG 29:)107(AUG 28 13:50) OOH046(AUG 29:)95(AUG 28 13:50)122(AUG 28 15:30) DBP68(AUG 29:)52(AUG 28 13:59)73(AUG 28 14:05) Physical examination: HEENT, is atraumatic normocephalic, pupils are equal, no pallor Neck supple no JVD Lungs clear to auscultation bilaterally, no wheezes, no rhonchi, no accessory muscle use Heart S1-S2 regular Abdomen soft nontender nondistended bowel sounds are present all 4 quadrants Lower extremities show no edema, no cyanosis, pulses palpable +2 bilaterally Skin showed no rash Neurological examination patient is awake alert and oriented 3, cranial nerves are grossly intact, no focal neurological defect could be appreciated Assessment and plan: 1. Multiloculated fluid collection/abscess with suspected fistula in the pelvic area. Post IR drainage on 08/26/2024, cultures showing 2 types of E. coli 2. 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 History of DVT in the lower extremity. 4. Diverticulosis. 5. Sepsis secondary to intra-abdominal abscess. 6. Hypokalemia. 7. Pancytopenia. 8. Anemia. 9. Hypomagnesemia Plan: 1. Continue with the broad-spectrum IV antibiotics. With 2 types of E. coli growing in the fluid obtained from the abscess 2. Follow further recommendations from infectious disease team, 3. Continue with Lovenox for DVT prophylaxis. 4. Continue the pain medication. 5. Continue to monitor patient clinically as well as her labs. 6. With the general surgery team, we will go ahead and advance the patient's diet as tolerated. Patient understood her plan of care all questions were answered, concerns were addressed, family were at the bedside all the questions were answered as well. Level of Care Indication Regular Floor DVT Prophylaxis Enoxaparin SQ Maintenance IVF Indication NA / No maintenance IVF Indwelling Urinary Catheter Indication NA No indwelling catheter Anticipated Timeline of Discharge 24 hours Anticipated DC Disposition [facility] Labs: Basic Metabolic Profile Glucose Level: 142 mg/dL High (08/29/24 07:16:00) Sodium Level: 139 mEq/L (08/29/24 07:16:00) Potassium Level: 3.5 mEq/L (08/29/24 07:16:00) Chloride: 103 mEq/L (08/29/24 07:16:00) CO2: 30 mEq/L (08/29/24 07:16:00) BUN/Creatinine Ratio: 21.4 ratio (08/29/24 07:16:00) Complete Blood Count WBC: 11.7 10^3/mcL High (08/29/24 07:16:00) RBC: 3.34 10^6/mcL Low (08/29/24 07:16:00) Hgb: 7.2 G/dL Low (08/29/24 07:16:00) Hct: 23.6 % Low (08/29/24 07:16:00) MCV: 70.6 fL Low (08/29/24 07:16:00) MCH: 21.4 pg Low (08/29/24 07:16:00) MCHC: 30.3 G/dL Low (08/29/24 07:16:00) RDW: 17.8 % High (08/29/24 07:16:00) Platelet: 399 10^3/mcL (08/29/24 07:16:00) MPV: 8.4 fL (08/29/24 07:16:00) Medications (21) Active Scheduled: (7) DAPTOmycin 600 mg 12 mL, IV Piggyback, qDay enoxaparin 40 mg/ 0.4mL syringe 40 mg 0.4 mL, Subcutaneous, qDay ketorolac 15 mg/mL vial 15 mg 1 mL, IV Push, q6hr Misc communication order 1 EA, Miscellaneous, Daily omeprazole [address] capsule 20 mg 1 cap(s), Oral, qDay piperacillin-tazobactam PMX 4.5 gram(s) 100 mL, IV Piggyback, q8h sodium chloride 0.9% 10 ml syringe cristina flush 10 mL, IR Drain, q8h Continuous: (0) PRN: (14) acetaminophen 325 mg Tablet 650 mg 2 tab(s), Oral, q4h acetaminophen-HYDROcodone 325-5 mg tablet 2 tab(s), Oral, q4h acetaminophen-OXYcodone 325 mg-5 mg Tablet 1 tab(s), Oral, q4h acetaminophen-OXYcodone 325 mg-5 mg Tablet 2 tab(s), Oral, q4h dextrose 50% Solution Disp syringe 50 mL 25 gram(s) 50 mL, IV Push, AsDirected docusate-senna (Senokot S) 50 mg-8.6 mg Tablet 1 tab(s), Oral, qDay HYDROmorphone 0.5 mg/0.5 mL syringe 0.5 mg 0.5 mL, IV Push, q4h melatonin 3 mg tablet 3 mg 1 tab(s), Oral, qHS melatonin 3 mg tablet 3 mg 1 tab(s), Oral, qHS morphine 2 mg/mL 1 mL syringe 2 mg 1 mL, IV Push, q3h morphine 4 mg/mL 1mL INJ 4 mg 1 mL, IV Push, q3h ondansetron 2 mg/ 1 mL 2 mL INJ 4 mg 2 mL, IV Push, q4h ondansetron 8 mg tablet 8 mg 1 tab(s), Oral, q8h polyethylene glycol 3350 - UD packet 17 gram(s) 15 mL, Oral, qDay Signature: Jasmin Mata MD Digitally Signed by JASMIN MATA MD on 08/29/2024 01:53 PM [id number] Progress note Date of Service 08/29/2024 Subjective Noted events. Patient complained of minimal incisional pain. She is concerned about the fluid from her Agustin-Mott drain. Patient reports gas and small amount of stool out from her ostomy overnight. She denies any nausea or vomiting. Objective Vitals and Measurements T: 36.5 C (Oral) TMIN: 36.4 C (Oral) TMAX: 38.26 C HR: 59 (Monitored) RR: 18 BP: 106/68 SpO2: 98% Intake and Output 7AM Yesterday to 7AM Today Intake and Output (Last 24 hours) Intake Oral Intake 360.00 Administration Information 500.00 Output Surgical Drain, Tube Output: 50.00 Urinary Catheter Output: 1500.00 Ostomy Stool Volume: 0.00 Intra-Op EBL 10.00 Stool Count 1.00 Urine Count 2.00 Total Summary Total Intake 860.00 Total Output 1560.00 Fluid Balance -700.00 Physical Exam General: A+Ox3 CV: RRR, no MRG Resp: CTAB Abd: Soft, ND, mild tenderness to palpation around the diverting loop colostomy, no rebound or guarding, +BS. Ostomy is pink and patent with gas and small amount of stool in pouch. Agustin-Mott drain with purulent fluid Weight Dosing Weight: 99.8 kg (08/19/24) Dosing Weight: 99.8 kg (08/19/24) Medications Medications (21) Active Scheduled: (7) DAPTOmycin 600 mg 12 mL, IV Piggyback, qDay enoxaparin 40 mg/ 0.4mL syringe 40 mg 0.4 mL, Subcutaneous, qDay ketorolac 15 mg/mL vial 15 mg 1 mL, IV Push, q6hr Misc communication order 1 EA, Miscellaneous, Daily omeprazole [address] capsule 20 mg 1 cap(s), Oral, qDay piperacillin-tazobactam PMX 4.5 gram(s) 100 mL, IV Piggyback, q8h sodium chloride 0.9% 10 ml syringe cristina flush 10 mL, IR Drain, q8h Continuous: (0) PRN: (14) acetaminophen 325 mg Tablet 650 mg 2 tab(s), Oral, q4h acetaminophen-HYDROcodone 325-5 mg tablet 2 tab(s), Oral, q4h acetaminophen-OXYcodone 325 mg-5 mg Tablet 1 tab(s), Oral, q4h acetaminophen-OXYcodone 325 mg-5 mg Tablet 2 tab(s), Oral, q4h dextrose 50% Solution Disp syringe 50 mL 25 gram(s) 50 mL, IV Push, AsDirected docusate-senna (Senokot S) 50 mg-8.6 mg Tablet 1 tab(s), Oral, qDay HYDROmorphone 0.5 mg/0.5 mL syringe 0.5 mg 0.5 mL, IV Push, q4h melatonin 3 mg tablet 3 mg 1 tab(s), Oral, qHS melatonin 3 mg tablet 3 mg 1 tab(s), Oral, qHS morphine 2 mg/mL 1 mL syringe 2 mg 1 mL, IV Push, q3h morphine 4 mg/mL 1mL INJ 4 mg 1 mL, IV Push, q3h ondansetron 2 mg/ 1 mL 2 mL INJ 4 mg 2 mL, IV Push, q4h ondansetron 8 mg tablet 8 mg 1 tab(s), Oral, q8h polyethylene glycol 3350 - UD packet 17 gram(s) 15 mL, Oral, qDay Lab Results 08/29 07:16 WBC: 11.7 H Hgb: 7.2 L Hct: 23.6 L Platelet: 399 Neutrophil %: 89.2 H Glucose Level: 142 H Sodium Level: 139 Potassium Level: 3.5 BUN: 9.0 Creatinine Lvl (s): 0.42 L 08/28 07:01 WBC: 13.2 H Hgb: 8.0 L Hct: 25.0 L Platelet: 451 H Neutrophil %: 84.3 H Glucose Level: 110 Sodium Level: 138 Potassium Level: 3.2 L BUN: <5.0 L Creatinine Lvl (s): 0.45 L EKG No qualifying data available. Assessment/Plan Adenocarcinoma of sigmoid colon Cancer of colon Cancer, metastatic to liver Colonic fistula Febrile neutropenia Orders: acetaminophen-oxyCODONE(Percocet 325/5), 1 tab(s), Oral, q4h, PRN acetaminophen-oxyCODONE(Percocet 325/5), 2 tab(s), Oral, q4h, PRN ketorolac(Toradol), 15 mg= 1 mL, IV Push, q6hr morphine, 4 mg= 1 mL, IV Push, q3h, PRN morphine, 2 mg= 1 mL, IV Push, q3h, PRN ondansetron(Zofran), 4 mg= 2 mL, IV Push, q4h, PRN Ambulate, 08/28/24 14:45:00 EST, PRN Order Basic Metabolic Panel(BMP), 08/29/24 5:01:00 EST, Next AM Draw (one day only), Blood, Once, Preferred Lab: [facility], Stop date 08/29/24 5:01:00 EST Complete Blood Count(CBC), 08/29/24 5:01:00 EST, Next AM Draw (one day only), Blood, Once, Preferred Lab: [facility], Stop date 08/29/24 5:01:00 EST Consult to Skin Team Nurse, 08/28/24 14:45:00 EST, New Ostomy Discontinue Order, 08/29/24 6:00:00 EST, Once, Discontinue banks catheter POD #1, 08/29/24 6:00:00 EST Incentive Spirometer, 08/28/24 14:45:00 EST, [id number], After extubation. IV Catheter Insertion/Care(Peripheral IV Insertion/Care), 08/28/24 14:45:00 EST, IV Care: q4hr, Rotate when clinically indicated & q7day drsg change Ostomy Care, 08/28/24 14:45:00 EST, Daily Prn Adapter, 08/28/24 14:45:00 EST, Constant Order Pt Education - Ostomy, 08/28/24 14:45:00 EST, Daily Pulse Oximeter - Intermittent, 08/28/24 14:45:00 EST, q8h, PRN order Sequential Compression Device Application(SCD Application), 08/28/24 14:47:00 EST, Knee high, q4h, Bilateral Urinary Catheter Insertion/Care, 08/28/24 14:45:00 EST, Nurse Driven Removal Protocol, Perioperative, to gravity drainage, Cath Care: Daily Vital Signs, 08/28/24 14:45:00 EST, qShift Patient is a 44-year-old female postoperative 1 status post diverting loop colostomy, Ostomy is already functioning well. It is patent and viable. Pain is well- controlled. Okay to advance diet as tolerated. Encourage activity and ambulation. Continue supportive care. Digitally Signed by ARLENE RODRIGEZ MD on 08/29/2024 09:15 AM [id number] Infectious disease Progress note Date of Service 08/29/2024 Chief Complaint Pelvis abscess Subjective Patient seen and independently evaluated the bedside. She is resting in bed comfortably in no acutedistress. Feels much better today. Complains of mild abdominal pain. Her pelvic pain has resolved. No fevers in the last 24 hours, no chills or night sweats. No nausea, vomiting or diarrhea. No back or joint pain. No urinary complaints Objective Vitals and Measurements T: 36.5 C (Oral) TMIN: 36.4 C (Oral) TMAX: 38.26 C HR: 59 (Monitored) RR: 18 BP: 106/68 SpO2: 98% Intake and Output 7AM Yesterday to 7AM Today Intake and Output (Last 24 hours) Intake Oral Intake 360.00 Administration Information 500.00 Output Surgical Drain, Tube Output: 50.00 Urinary Catheter Output: 1500.00 Ostomy Stool Volume: 0.00 Intra-Op EBL 10.00 Stool Count 1.00 Urine Count 2.00 Total Summary Total Intake 860.00 Total Output 1560.00 Fluid Balance -700.00 Physical Exam General: No acute distress. Alert and Appropriate Skin: Diverting colostomy in place, dressing is clean, dry and intact. HEENT: Head is normocephalic and atraumatic. No lesions. Pupils equal in size. Extraocular movements within normal limits. Nose: No septal deviation. Mouth: Oropharynx mucosa is without lesion. Neck: Supple. No lymphadenopathy, thyromegaly noted. No carotid bruit heard. Lungs: Bilaterally clear breath sounds with no crepitation or wheeze. Cardiovascular: Heart is regular rhythm, S1S2, No extra-audible heart tones Abdomen: Abdomen is soft, tender in the lower quadrants. Bowel sounds positive all four quadrants. No hepatosplenomegaly noted. Extremities: No clubbing, cyanosis or edema. Peripheral pulses palpable. No calf tenderness. Adequate peripheral circulation. Neurological: The patient is awake, oriented to person, place and time. Following simple commands, moving all extremities. Weight Dosing Weight: 99.8 kg (08/19/24) Dosing Weight: 99.8 kg (08/19/24) Medications Medications (21) Active Scheduled: (7) DAPTOmycin 600 mg 12 mL, IV Piggyback, qDay enoxaparin 40 mg/ 0.4mL syringe 40 mg 0.4 mL, Subcutaneous, qDay ketorolac 15 mg/mL vial 15 mg 1 mL, IV Push, q6hr Mis communication order 1 EA, Miscellaneous, Daily omeprazole [address] capsule 20 mg 1 cap(s), Oral, qDay piperacillin-tazobactam PMX 4.5 gram(s) 100 mL, IV Piggyback, q8h sodium chloride 0.9% 10 ml syringe cristina flush 10 mL, IR Drain, q8h Continuous: (0) PRN: (14) acetaminophen 325 mg Tablet 650 mg 2 tab(s), Oral, q4h acetaminophen-HYDROcodone 325-5 mg tablet 2 tab(s), Oral, q4h acetaminophen-OXYcodone 325 mg-5 mg Tablet 1 tab(s), Oral, q4h acetaminophen-OXYcodone 325 mg-5 mg Tablet 2 tab(s), Oral, q4h dextrose 50% Solution Disp syringe 50 mL 25 gram(s) 50 mL, IV Push, AsDirected docusate-senna (Senokot S) 50 mg-8.6 mg Tablet 1 tab(s), Oral, qDay HYDROmorphone 0.5 mg/0.5 mL syringe 0.5 mg 0.5 mL, IV Push, q4h melatonin 3 mg tablet 3 mg 1 tab(s), Oral, qHS melatonin 3 mg tablet 3 mg 1 tab(s), Oral, qHS morphine 2 mg/mL 1 mL syringe 2 mg 1 mL, IV Push, q3h morphine 4 mg/mL 1mL INJ 4 mg 1 mL, IV Push, q3h ondansetron 2 mg/ 1 mL 2 mL INJ 4 mg 2 mL, IV Push, q4h ondansetron 8 mg tablet 8 mg 1 tab(s), Oral, q8h polyethylene glycol 3350 - UD packet 17 gram(s) 15 mL, Oral, qDay Lab Results 08/29 07:16 WBC: 11.7 H Hgb: 7.2 L Hct: 23.6 L Platelet: 399 Neutrophil %: 89.2 H Glucose Level: 142 H Sodium Level: 139 Potassium Level: 3.5 BUN: 9.0 Creatinine Lvl (s): 0.42 L 08/28 07:01 WBC: 13.2 H Hgb: 8.0 L Hct: 25.0 L Platelet: 451 H Neutrophil %: 84.3 H Glucose Level: 110 Sodium Level: 138 Potassium Level: 3.2 L BUN: <5.0 L Creatinine Lvl (s): 0.45 L Imaging Results and Diagnostics US Anesthesia Block Result Date: August 28, 2024 Verified By: CLINICAL STATEMENT: IMPRESSION: CT Abdomen/Pelvis w/Contrast Result Date: August 22, 2024 Verified By: IRMA ORDOÑEZ MD CLINICAL STATEMENT: IMPRESSION: 1. Liver lesions are fairly similar to the prior exam. Whether these aresolid/metastatic or could be liver abscesses is uncertain on the basis ofthis exam.2. Pelvic inflammation with multiloculated fluid collections/abscess andsuspected fistula as well, very similar to the prior exam.3.Mild retroperitoneal adenopathy, stable. CT Abd/Pelvis w/ IV Contrast Only Result Date: August 19, 2024 Verified By: LAUREANO NG MD CLINICAL STATEMENT: IMPRESSION: Multifocal pelvic abscesses. Question fistulous communication with thesigmoid colon to the abscess eccentric to the right adnexa, as detailed above. Evidence for worsening hepatic metastatic disease. More conspicuouspara- aortic adenopathy. Diverticulosis without evidence of a evidence of diverticulitis. Small stable lung nodule in the right lower lobe. Continued attention onfollow-up.I have personally reviewed the images of this examination and agree with theresident's findings andinterpretation EKG No qualifying data available. Assessment/Plan Sepsis Pelvic abscess Fever Leukocytosis Adenocarcinoma of the colon with mets to the liver Patient is a 44-year-old female with history of metastatic colon cancer with mets to the liver on chemotherapy through chest port, history of pelvic abscess back in 2023 with associated bacteremia requiring IR drainage and antibiotics currently presents on 08/19/[address] abdomen/pelvis concerning for multiple pelvic abscess with question of fistulous communication with sigmoid colon. ID on board for pelvic abscess. Pelvic abscess status post IR drainage, body fluid culture grew E. coli, sensitivities reviewed. General surgery completed exploratory laparotomy with diverting colostomy on 08/28/2024. She is clinically improving, no fevers in the last 24 hours and leukocytosis is trending downward. COVID/flu/RSV is negative, Dopplers are currently pending. As long as patient remains afebrile for 48 hours, continue Zosyn in house. Upon discharge, okay to discharge on oral ciprofloxacin 500 mg p.o. twice daily and Flagyl 500 mg every 8 hours for 7 more days. ID will sign off. Please call for further questions or concerns Plan of care discussed in depth with patient. All questions answered. Discussed with my collaborating physician Dr. Lele Peña. Any changes to the plan will be added to end as an addendum. Time Spent I spent a total of 41 minutes reviewing the patient s diagnostic labs/tests, seeing and examining the patient and documenting in the medical record, see assessment for further detail. Digitally Signed by MARISA MARTIN on 08/29/2024 01:33 PM [id number] Anesthesiology Consult note Patient: CLARISSE PEGUERO Age: 44 years Sex: Female : 1980 Associated Diagnoses: None Author: LYRIC COULTER DO Postoperative Information Post Operative Info: Post op day: Post Anesthesia Care Unit. Patient location: PACU. Assessment Postanesthesia assessment Vitals. Mental status: at preoperative baseline. Respiratory function: respirations are non-labored, Stable. Respiratory support: none. CV function: Stable. Cardiovascular support: none. Pain: Satisfactory. Nausea status: Satisfactory. Postoperative hydration status: within normal limits. Notes: Patient is sufficiently recovered from anesthesia to participate in the evaluation. No follow-up care needed. No complications post-anesthesia.. Digitally Signed by LYRIC COULTER DO on 08/28/2024 04:25 PM [facility] [id number] Note* Exam Date Time Procedure Performing Provider Status 08/28/24 3:49 PM US Anesthesia Block Auth (Verified) [id number] ORIGINAL Images acquired, not reported on this accession number. [facility] [id number] Procedure note Patient: CLARISSE PEGUERO Age: 44 years Sex: Female : 1980 Associated Diagnoses: None Author: LYRIC COULTER DO Visit Information Location: Regional Block Area. Reason: Postoperative Pain Management, Surgeon Request. Timing: Preoperative. Start Time (1324) Stop Time (1334) Time Out Performed: Refer to [place] Time Out Form, Patient was confirmed by two patient identifiers, The procedure and laterality were verified. Monitored During Procedure: BP, Oxygen Saturation, OTHER (Heart rate). Vitals Signs Assessed Immediately Prior to Regional Placement/Sedation: No Change in Plan. Level of Sedation: Responsive, Sedated. Oxygen Therapy: O2 applied prior to procedure. Procedure Procedure Type: Main Nerve Block QL. Position Type: Left Lateral, Right Lateral. Laterality Bilateral. Needle Type: Echogenic. Size: 21 G. Length: 4. Ultrasound Exam Dynamic Guidance Use Throughout. OTHER (Image saved to patient's EMR). Parathesia Location: None. Prep Type: Cholorprep, Skin Prep Allowed to Dry. Sterile Barrier Type: Hand Hygiene, Sterile Drape, gloves, mask, and hat. Patient Condition Tolerated Well/No Complications. Note (Aspiration after every 5mL injected with negative blood return, medication injected slowly without high pressure, vital signs unchanged with injection of local anesthetic). 14ml 0.5 percent ropivivcaine 2mg dexamethasone per side Review / Management Vital signs remain stable throughout procedure, see nursing documentation for vital signs Intravenous Medications: Administered: Intravenous Medications - See MAR. Nerve block Medications: See MAR for medications administered for nerve block Professional Services Provider: Anesthesiologist. Digitally Signed by LYRIC COULTER DO on 08/28/2024 01:35 PM [facility] [id number] Note Subjective: Patient seen for multiloculated pelvic abscesses patient was examined and evaluated today, patient denies chest pain, no shortness of breath, no cough, no fever or chills, abdominal pain has improved, patient is n.p.o. for planned surgery today fordiverting colostomy. Family were at the bedside. Vitals Signs(Last 24 hrs)__Last Charted Minimum Maximum Temp37.2(AUG 28 10:26)37(AUG 27 15:55)H 38.6(AUG 27 22:57) BHF358(AUG 28 12:55)107(AUG 28 12:55)118(AUG 27 15:55) DBPL 58(AUG 28 12:55)L 58(AUG 28 12:55)71(AUG 28 10:26) Physical examination: HEENT, is atraumatic normocephalic, pupils are equal, no pallor Neck supple no JVD Lungs clear to auscultation bilaterally, no wheezes, no rhonchi, no accessory muscle use Heart S1-S2 regular Abdomen soft nontender nondistended bowel sounds are present all 4 quadrants Lower extremities show no edema, no cyanosis, pulses palpable +2 bilaterally Skin showed no rash Neurological examination patient is awake alert and oriented 3, cranial nerves are grossly intact, no focal neurological defect could be appreciated Assessment and plan: 1. Multiloculated fluid collection/abscess with suspected fistula in the pelvic area. Post IR drainage on 08/26/2024 2. Adenocarcinoma of the colon with mets to the liver. 3. History of DVT in the lower extremity. 4. Diverticulosis. 5. Sepsis secondary to intra-abdominal abscess. 6. Hypokalemia. 7. Pancytopenia. 8. Anemia. 9. Hypomagnesemia Plan: 1. Continue with the broad-spectrum IV antibiotics. Will follow the cultures of the fluid obtained from the IR, patient is planned for diverting colostomy on 08/28/2024 2. Replace potassium with oral potassium supplements 3. Continue with Lovenox for DVT prophylaxis. 4. Continue the pain medication. 5. Continue to monitor patient clinically as well as her labs. 6. Discussed with infectious disease team, will continue with antibiotics, continue to follow cultures 7. Follow further conditions from general surgery team Patient understood her plan of care all questions were answered, concerns were addressed, family were at the bedside all the questions were answered as well. Level of Care Indication Regular Floor DVT Prophylaxis Enoxaparin SQ Maintenance IVF Indication NA / No maintenance IVF Indwelling Urinary Catheter Indication NA No indwelling catheter Anticipated Timeline of Discharge 48 hours Anticipated DC Disposition Home c [facility] Labs: Basic Metabolic Profile Glucose Level: 110 mg/dL (08/28/24 07:01:00) Sodium Level: 138 mEq/L (08/28/24 07:01:00) Potassium Level: 3.2 mEq/L Low (08/28/24 07:01:00) Chloride: 103 mEq/L (08/28/24 07:01:00) CO2: 28 mEq/L (08/28/24 07:01:00) BUN/Creatinine Ratio: Unable to Calculate (08/28/24 07:01:00) Complete Blood Count WBC: 13.2 10^3/mcL High (08/28/24 07:01:00) RBC: 3.62 10^6/mcL Low (08/28/24 07:01:00) Hgb: 8 G/dL Low (08/28/24 07:01:00) Hct: 25 % Low (08/28/24 07:01:00) MCV: 68.9 fL Low (08/28/24 07:01:00) MCH: 21.9 pg Low (08/28/24 07:01:00) MCHC: 31.8 G/dL Low (08/28/24 07:01:00) RDW: 17.2 % High (08/28/24 07:01:00) Platelet: 451 10^3/mcL High (08/28/24 07:01:00) MPV: 8.6 fL (08/28/24 07:01:00) Medications (18) Active Scheduled: (9) DAPTOmycin 600 mg 12 mL, IV Piggyback, qDay dexamethasone 4 mg/1 mL solution 4 mg 1 mL, Nerve Block, Once enoxaparin 40 mg/ 0.4mL syringe 40 mg 0.4 mL, Subcutaneous, qDay midazolam 1 mg/mL (2mL) SDV 2 mg 2 mL, IV Push, Once Misc communication order 1 EA, Miscellaneous, Daily omeprazole [address] capsule 20 mg 1 cap(s), Oral, qDay piperacillin-tazobactam PMX 4.5 gram(s) 100 mL, IV Piggyback, q8h ropivacaine 0.5% Solution (30 mL) vial 100 mg 20 mL, Nerve Block, Once sodium chloride 0.9% 10 ml syringe cristina flush 10 mL, IR Drain, q8h Continuous: (0) PRN: (9) acetaminophen 325 mg Tablet 650 mg 2 tab(s), Oral, q4h acetaminophen-HYDROcodone 325-5 mg tablet 2 tab(s), Oral, q4h dextrose 50% Solution Disp syringe 50 mL 25 gram(s) 50 mL, IV Push, AsDirected docusate-senna (Senokot S) 50 mg-8.6 mg Tablet 1 tab(s), Oral, qDay HYDROmorphone 0.5 mg/0.5 mL syringe 0.5 mg 0.5 mL, IV Push, q4h melatonin 3 mg tablet 3 mg 1 tab(s), Oral, qHS melatonin 3 mg tablet 3 mg 1 tab(s), Oral, qHS ondansetron 8 mg tablet 8 mg 1 tab(s), Oral, q8h polyethylene glycol 3350 - UD packet 17 gram(s) 15 mL, Oral, qDay Signature: Jasmin Mata MD Digitally Signed by JASMIN MATA MD on 08/28/2024 01:16 PM [facility] [id number] Anesthesiology Consult note Patient: CLARISSE PEGUERO Age: 44 years Sex: Female : 1980 Associated Diagnoses: None Author: LYRIC COULTER DO Preoperative Information greater than 8 hours solid foods, greater than 2 hours clear liquids Anesthesia history Patient's history: negative. Family's history: negative. History of Present Illness Please refer to most recent H and P / daily progress note / consultation note for further details anemia hgb 8 2 u prbc on hold intraoperatively Adenocarcinoma of sigmoid colon Cancer of colon Cancer, metastatic to liver Colonic fistula Febrile neutropenia Health Status Allergies: Allergic Reactions (Selected) NKA, Allergies (1) ActiveSeverityReaction NKANone Documented Current medications: (Selected) Inpatient Medications Ordered Communication PHARMACY Order: 1 EA, Miscellaneous, Daily DAPTOmycin: 600 mg, 12 mL, 124 mL/hr, IV Piggyback, qDay Dextrose 50% IV Push: 25 gram(s), 50 mL, IV Push, AsDirected, PRN: Low blood sugar Dilaudid: 0.5 mg, 0.5 mL, IV Push, q4h, PRN: Pain, scale 7-10 Miralax Powder Packet: 17 gram(s), 15 mL, Oral, qDay, PRN: Constipation NS flush (drains): 10 mL, IR Drain, q8h Stanton 325- 5 mg oral tablet: 2 tab(s), Oral, q4h, PRN: Pain, scale 7-10 Tylenol: 650 mg, 2 tab(s), Oral, q4h, PRN: Other (see order comments) Zosyn: 4.5 gram(s), 100 mL, 25 mL/hr, IV Piggyback, q8h docusate-senna 50 mg-8.6 mg oral tablet: 1 tab(s), Oral, qDay, PRN: Constipation enoxaparin: 40 mg, 0.4 mL, Subcutaneous, qDay melatonin: 3 mg, 1 tab(s), Oral, qHS, PRN: Sleep melatonin: 3 mg, 1 tab(s), Oral, qHS, PRN: Sleep omeprazole: 20 mg, 1 cap(s), Oral, qDay ondansetron: 8 mg, 1 tab(s), Oral, q8h, PRN: Nausea/Vomiting Future Continuous 5FU Infusion (DoT): 4,970 mg, Portable Pump - IV (INF), Day of Tx, Day 1 Udenyca (DoT): 6 mg, Subcutaneous INF, Day of Tx, Day 4 Zero Time Placeholder: None, Day of Tx, Day 1 Zero Time Placeholder: None, Day of Tx, Day 3 Zero Time Placeholder: None, Day of Tx, Day 4 dexamethasone (DoT): 10 mg, 50 mL, 150 mL/hr, IV Piggyback, Day of Tx, Day 1 fluorouracil syringe (DoT): 850 mg, 17 mL, 204 mL/hr, Slow IV Push (INF), Day of Tx, Day 1 fosaprepitant (DoT): 150 mg, 150 mL, 450 mL/hr, IV Piggyback, Day of Tx, Day 1 leucovorin (DoT): 850 mg, 85 mL, 167.5 mL/hr, IV Piggyback, Day of Tx, Day 1 oxaliplatin (DoT): 175 mg, 35 mL, 267.5 mL/hr, IV Piggyback, Day of Tx, Day 1 palonosetron (DoT): 0.25 mg, 5 mL, IV Push (INF), Day of Tx, Day 1 Prescriptions Prescribed Zofran 8 mg oral tablet: 8 mg, 1 tab(s), Oral, q8h, PRN: Nausea/Vomiting, 30 tab(s), 1 Refill(s) Documented Medications Documented omeprazole 20 mg oral delayed release capsule: 20 mg, 1 cap(s), Oral, qDay, 0 Refill(s), Medications (15) Active Scheduled: (6) DAPTOmycin 600 mg 12 mL, IV Piggyback, qDay enoxaparin 40 mg/ 0.4mL syringe 40 mg 0.4 mL, Subcutaneous, qDay Misc communication order 1 EA, Miscellaneous, Daily omeprazole [address] capsule 20 mg 1 cap(s), Oral, qDay piperacillin-tazobactam PMX 4.5 gram(s) 100 mL, IV Piggyback, q8h sodium chloride 0.9% 10 ml syringe cristina flush 10 mL, IR Drain, q8h Continuous: (0) PRN: (9) acetaminophen 325 mg Tablet 650 mg 2 tab(s), Oral, q4h acetaminophen-HYDROcodone 325-5 mg tablet 2 tab(s), Oral, q4h dextrose 50% Solution Disp syringe 50 mL 25 gram(s) 50 mL, IV Push, AsDirected docusate-senna (Senokot S) 50 mg-8.6 mg Tablet 1 tab(s), Oral, qDay HYDROmorphone 0.5 mg/0.5 mL syringe 0.5 mg 0.5 mL, IV Push, q4h melatonin 3 mg tablet 3 mg 1 tab(s), Oral, qHS melatonin 3 mg tablet 3 mg 1 tab(s), Oral, qHS ondansetron 8 mg tablet 8 mg 1 tab(s), Oral, q8h polyethylene glycol 3350 - UD packet 17 gram(s) 15 mL, Oral, qDay Problem list: Medical Heartburn / SNOMED CT 05241289 / Confirmed Bilateral hip pain / SNOMED CT 59704511 / Confirmed History of DVT of lower extremity / SNOMED CT 9438426237 / Confirmed Hydronephrosis, right / SNOMED CT 93757789 / Confirmed, Active Problems (11) Acid reflux Adenocarcinoma of sigmoid colon Anemia Bilateral hip pain BMI 39.0-39.9,adult Diverticulitis Heartburn History of DVT of lower extremity Hydronephrosis, right Personal history of COVID-19 Runny nose Histories Past Medical History: No active or resolved past medical history items have been selected or recorded. Family History: Diabetes mellitus Father Grandparent High blood pressure Mother Grandparent DVT - Deep vein thrombosis Father Procedure history: MRI ([id number]) on 08/01/2024 at 44 Years. Comments: 08/04/2024 9:43 ELLEN - Audie Medina LPN of liver insertion of left chest port using fluoroscopic and ultrasound guidance ([id number]) on 07/23/2024 at44 Years. Extraction of wisdom tooth ([id number]). Colonoscopy ([id number]). Biopsy of liver ([id number]). Social History: Social & Psychosocial Habits Alcohol 08/07/2024 Use: DENIES Substance Abuse 08/07/2024 Use: DENIES Tobacco 08/07/2024 Tobacco Use: Never (less than 100 in l, denies Home/Environment 08/07/2024 Living situation: Home/Independent Domestic Concerns Denies Nutrition/Health 08/07/2024 Type of diet: Regular Appetite Fair Eating Difficulties None Physical Examination Vital Signs 08/28/2024 12:55 EST Peripheral Pulse Rate 88 bpm Systolic Blood Pressure Non-Invasive 107 mmHg Diastolic Blood Pressure Non-Invasive 58 mmHg LOW Mean Arterial Pressure (NBP) 74 mmHg 08/28/2024 10:26 EST Temperature Oral 37.2 DegC Peripheral Pulse Rate 97 bpm Respiratory Rate 18 br/min Systolic Blood Pressure Non-Invasive 115 mmHg Diastolic Blood Pressure Non-Invasive 71 mmHg Blood Pressure Method Automatic Blood Pressure Location Right arm Blood Pressure Cuff Size Medium 08/28/2024 0:09 EST Temperature Oral 37.6 DegC HI (Modified) 08/27/2024 22:57 EST Temperature Oral 38.6 DegC HI (Modified) Peripheral Pulse Rate 78 bpm Respiratory Rate 16 br/min Systolic Blood Pressure Non-Invasive 117 mmHg Diastolic Blood Pressure Non-Invasive 64 mmHg Blood Pressure Method Automatic Blood Pressure Location Right arm Blood Pressure Cuff Size Medium 08/27/2024 15:55 EST Temperature Oral 37 DegC Peripheral Pulse Rate 70 bpm Respiratory Rate 18 br/min Systolic Blood Pressure Non-Invasive 118 mmHg Diastolic Blood Pressure Non-Invasive 68 mmHg 08/27/2024 7:27 EST Temperature Oral 37.0 DegC Peripheral Pulse Rate 68 bpm Respiratory Rate 18 br/min Systolic Blood Pressure Non-Invasive 113 mmHg Diastolic Blood Pressure Non-Invasive 73 mmHg Blood Pressure Method Automatic Blood Pressure Location Right arm Blood Pressure Cuff Size Medium Vital Signs (last 24 hrs) Last Charted Temp Oral37.2 DegC (AUG 28 10:26) CNH072 mmHg (AUG 28 12:55) DBPL 58 mmHg (AUG 28 12:55) Pain assessment: Pain Assessment 08/28/2024 10:40 EST Pain Scale Assessment 0-10 Pain scale Primary Pain Location Groin Primary Pain Intensity 2 08/28/2024 10:10 EST Primary Pain Intensity 8 08/27/2024 22:44 EST Pain Scale Assessment PAINAD Primary Pain Location Low back Primary Pain Intensity 4 08/27/2024 22:14 EST Primary Pain Intensity 8 08/27/2024 16:44 EST Pain Scale Assessment 0-10 Pain scale Primary Pain Location Low back Primary Pain Intensity 5 08/27/2024 16:14 EST Primary Pain Intensity 8 08/27/2024 13:16 EST Pain Scale Assessment 0-10 Pain scale Primary Pain Location Low back Primary Pain Intensity 6 08/27/2024 12:16 EST Primary Pain Location Hip Primary Pain Laterality Right Primary Pain Intensity 7 Primary Pain Quality Aching Pain Scale Type 0-10 Pain scale 08/27/2024 8:19 EST Primary Pain Intensity 2 Primary Pain Non-Pharma Intervention Rest Primary Pain Nonverbal Response Appears restful Pain Scale Type PAINAD 08/27/2024 7:26 EST Pain Scale Assessment PAINAD Primary Pain Location Flank Primary Pain Intensity 1 08/27/2024 6:26 EST Primary Pain Location Flank Primary Pain Intensity 7 Primary Pain Pharma Intervention Medication Primary Pain Nonverbal Response Nods Yes Pain Scale Type 0-10 Pain scale . General: Alert and oriented. Airway: Mallampati classification: II (soft palate, fauces, uvula visible). Dentition Evaluation: Intact. Respiratory: Respirations are non-labored. Neurologic: Alert, Oriented. Review / Management Results review: Labs (Last four charted values) WBC H 13.2(AUG 28)6.6(AUG 27)H 12.6(AUG 26)H 12.9(AUG 25) Hgb L 8.0(AUG 28)L 7.2(AUG 27)L 7.9(AUG 26)L 8.2(AUG 25) Hct L 25.0(AUG 28)L 23.4(AUG 27)L 25.5(AUG 26)L 26.5(AUG 25) Plt H 451(AUG 28)328(AUG 27)422(B )408(AUG 25) Na 138(AUG 28)139(AUG 27)139(AUG 26)137(AUG 25) K L 3.2(AUG 28)L 3.4(AUG 27)L 3.2(B )3.6(B ) CO2 28(AUG 28)29(AUG 27)26(AUG 26)26(B ) Cl 103(B )105(B )101(B )102(B ) Cr L 0.45(AUG 28)L 0.44(B )L 0.49(B )L 0.45(B ) BUN L <5.0(AUG 28)L <5.0(B )L <5.0(B )L <5.0(B ) Glucose 110(AUG 28)H 124(AUG 27)109(AUG 26)96(AUG 25) Mg 1.7(AUG 28)1.8(AUG 27)2.0(AUG 26)L 1.5(AUG 25) Phos 4.0(AUG 28)2.8(AUG 27)3.5(AUG 26)3.3(AUG 25) Ca 8.9(AUG 28)L 8.2(AUG 27)L 8.5(AUG 26)L 8.5(AUG 25) PT H 15.8(AUG 26)H 19.4(AUG 19) INR 1.4(AUG 26)1.7(AUG 19) PTT L 21.8(AUG 19) Total CK 47(AUG 24) , Lab results 08/28/2024 12:55 EST Peripheral Pulse Rate 88 bpm Systolic Blood Pressure Non-Invasive 107 mmHg Diastolic Blood Pressure Non-Invasive 58 mmHg LOW Mean Arterial Pressure (NBP) 74 mmHg Oxygen Therapy Room air Oxygen Saturation 93 % 08/28/2024 12:29 EST Surgical Progress Note Progress Note 08/28/2024 12:27 EST CHG Preoperative Wash/Wipe Site specific wipe Preop Nasal Swab Povidone-Iodine 08/28/2024 12:15 EST Discharge To, Anticipated Home independently Anticipated Discharge Date 08/31/2024 Transition Planning Note Transition Planning Ongoing Assessment 08/28/2024 12:05 EST CSummary CSUMMARY 08/28/2024 12:03 EST CSummary CSUMMARY 08/28/2024 10:40 EST Pain Scale Assessment 0-10 Pain scale Primary Pain Location Groin Primary Pain Intensity 2 Reason for PRN medication Pain management PRN medication effectiveness Partial PRN Medication Effectiveness Evaluation PRN Medication Effectiveness Evaluation 08/28/2024 10:27 EST Discharge To, Anticipated Home independently Anticipated Discharge Date 08/31/2024 Transition Planning Note Transition Planning Ongoing Assessment 08/28/2024 10:26 EST Temperature Oral 37.2 DegC Peripheral Pulse Rate 97 bpm Respiratory Rate 18 br/min Systolic Blood Pressure Non-Invasive 115 mmHg Diastolic Blood Pressure Non-Invasive 71 mmHg Blood Pressure Method Automatic Blood Pressure Location Right arm Blood Pressure Cuff Size Medium Oxygen Therapy Room air Oxygen Saturation 91 % LOW 08/28/2024 10:10 EST Primary Pain Intensity 8 DAPTOmycin 600 mg mg HYDROmorphone 0.5 mg mg Sodium Chloride 0.9% 50 mL mL 08/28/2024 9:00 EST enoxaparin Not Done: Not Appropriate at this Time (Not Done) 08/28/2024 7:53 EST sodium chloride 10 mL mL 08/28/2024 7:52 EST piperacillin-tazobactam 4.5 gram(s) gram(s) 08/28/2024 7:01 EST WBC 13.2 10^3/mcL HI RBC 3.62 10^6/mcL LOW Hgb 8.0 G/dL LOW Hct 25.0 % LOW MCV 68.9 fL LOW MCH 21.9 pg LOW MCHC 31.8 G/dL LOW RDW 17.2 % HI Platelet 451 10^3/mcL HI MPV 8.6 fL Neutrophil % 84.3 % HI Lymphocyte % 10.6 % LOW Monocyte % 4.9 % Eosinophil % 0.0 % Basophil % 0.2 % Neutrophil, Absolute 11.1 10^3/mcL HI Lymphocyte, Absolute 1.4 10^3/mcL Monocyte, Absolute 0.7 10^3/mcL Eosinophil, Absolute 0.0 10^3/mcL Basophil, Absolute 0.0 10^3/mcL Platelet Estimate Slt Increased Microcytosis 2+ Glucose Level 110 mg/dL Sodium Level 138 mEq/L Potassium Level 3.2 mEq/L LOW Chloride 103 mEq/L CO2 28 mEq/L Electrolyte Balance 7.0 mEq/L BUN <5.0 mg/dL LOW Creatinine Lvl (s) 0.45 mg/dL LOW Estimated Glomerular Filtration Rate >120 ml/min/1.73sqm NA BUN/Creatinine Ratio Unable to Calculate ratio Calcium Lvl 8.9 mg/dL Magnesium Lvl 1.7 mg/dL Phosphorus 4.0 mg/dL Creatinine Clearance Calc 131.47 mL/min Slide Review Man Indicated 08/28/2024 6:00 EST omeprazole Not Done: Patient NPO (Not Done) 08/28/2024 5:30 EST Positioning Repositions self Activity Status ADL Resting, Sleeps intermittently Nurse Safety Checks q2hrs Performed 11pm-7am Standard Safety Safety level maintained High Risk Safety Room check performed Demonstrates Correct Call Light Use Yes 08/28/2024 3:45 EST Positioning Repositions self Activity Status ADL Sleeping Standard Safety Safety level maintained High Risk Safety Room check performed Demonstrates Correct Call Light Use Yes 08/28/2024 2:24 EST Oxygen Therapy Room air Positioning Repositions self, Encouraged/reinforced importance of turning Activity Status ADL Sleeping Standard Safety ID band on, Call device within reach, Bed in low position, Wheels locked, Phone within reach, personal items within reach, Bedside Cart Locked, Safety level maintained, Non-Slip footwear, Precautions maintained High Risk Safety Non-Slip footwear, Room check performed Demonstrates Correct Call Light Use Yes 08/28/2024 0:32 EST docusate-senna 1 tab(s) tab(s) piperacillin-tazobactam 4.5 gram(s) gram(s) sodium chloride 10 mL mL 08/28/2024 0:30 EST Agustin-Mott # 1 Buttock Right Surgical Drain, Tube Activity: Assessed Surgical Drain, Tube Care: Minong collapsed Surgical Drain Site Condition: No complications Surgical Drain, Tube Dressing Condition: Clean, Dry, Intact Surgical Drain, Tube Dressing/Activity: Transparent Surgical Drain, Tube Drainage Method: Compression Surgical Drain, Tube - Tube Descr: Purulent Surgical Drain, Tube Output: 20 mL Implanted port Left Central IV Activity: Assessed Central IV Number of Lumens: Single Central IV Patency Proximal Port: Flushes easily Central IV Dressing Condition: Clean, Dry, Intact Central IV Dressing / Activity: Port CHG dressing with proper placement Central IV Line Care: Alcohol port cap(s) in place, Needleless Protector End Cap(s) in place Central IV Site Condition: No complications Central IV Equipment: PRN Adaptor Ambulation Ambulation in Room Assistive Device None Positioning Repositions self Mobility Assistance Level Independent Ambulation Patient Effort Good Activity Status ADL Lights dimmed, Resting NPO Status Initiated Standard Safety ID band on, Call device within reach, Bed in low position, Wheels locked, Upper/Half-Length side-rails up, Phone within reach, personal items within reach, Visitor at bedside, Safety level maintained High Risk Safety Non-Slip footwear, Room check performed Demonstrates Correct Call Light Use Yes 08/28/2024 0:09 EST Temperature Oral 37.6 DegC HI (Modified) Oxygen Therapy Room air Positioning Repositions self, Encouraged/reinforced importance of turning Activity Status ADL Lights dimmed, Resting, Sleeping Standard Safety ID band on, Call device within reach, Bed in low position, Wheels locked, Phone within reach, personal items within reach, Bedside Cart Locked, Visitor at bedside, Safety level maintained, Non-Slip footwear, Precautions maintained High Risk Safety Non-Slip footwear, Room check performed Demonstrates Correct Call Light Use Yes 08/27/2024 23:47 EST Notify date/time 08/27/2024 23:47 Provider Notified [facility] (For Consultation Assignment Only NO other Orders) Notification Method Pager Information Communicated Nurse communication Details Communicated Patient states she needs to poop. having pain and nausea. 08/27/2024 23:19 EST acetaminophen 650 mg mg 08/27/2024 23:18 EST CHG Preoperative Wash/Wipe Night before procedure Linen Change Done Urine Count 1 EA 08/27/2024 23:10 EST Individuals Taught Patient Learning Readiness Willing to learn Barriers to Learning None evident Teaching Method Explanation Preferred Spoken Language Cuban Preferred Written Language Cuban Pain Medication Education Pain scale, Name, Purpose, Action, Dose, Route Pain Teaching Evaluation Verbalizes/Nonverbally indicates understanding 08/27/2024 23:05 EST Supplement Intake 120 mL 08/27/2024 23:00 EST Stool Description Small amount Oral Intake 0 mL Stool Count 1 EA Stool Count 0 EA 08/27/2024 22:57 EST Temperature Oral 38.6 DegC HI (Modified) Peripheral Pulse Rate 78 bpm Respiratory Rate 16 br/min Systolic Blood Pressure Non-Invasive 117 mmHg Diastolic Blood Pressure Non-Invasive 64 mmHg Blood Pressure Method Automatic Blood Pressure Location Right arm Blood Pressure Cuff Size Medium Oxygen Therapy Room air Oxygen Saturation 98 % Activity Status ADL Lights dimmed, Resting, Up to bathroom, Returned to bed Standard Safety ID band on, Call device within reach, Bed in low position, Wheels locked, Phone within reach, personal items within reach, Bedside Cart Locked, Visitor at bedside, Safety level maintained, Non-Slip footwear, Precautions maintained High Risk Safety Non-Slip footwear, Room check performed Demonstrates Correct Call Light Use Yes 08/27/2024 22:44 EST Pain Scale Assessment PAINAD Primary Pain Location Low back Primary Pain Intensity 4 Reason for PRN medication Pain management PRN medication effectiveness Yes Implanted port Left Central IV Activity: Assessed Central IV Number of Lumens: Single Central IV Patency Proximal Port: Flushes easily Central IV Dressing Condition: Clean, Dry, Intact Central IV Site Condition: No complications Central IV Equipment: PRN Adaptor Nurse Safety Checks q2hrs Performed 11am-11pm Standard Safety ID band on, Call device within reach, Bed in low position, Wheels locked, Upper/Half-Length side-rails up, Phone within reach, Safety level maintained, Precautions maintained High Risk Safety Door open, Room check performed PRN Medication Effectiveness Evaluation PRN Medication Effectiveness Evaluation 08/27/2024 22:14 EST Primary Pain Intensity 8 HYDROmorphone 0.5 mg mg 08/27/2024 19:55 EST Agustin-Mott # 1 Buttock Right Surgical Drain, Tube Activity: Assessed Surgical Drain, Tube Care: Minong collapsed Surgical Drain Site Condition: No complications Surgical Drain, Tube Dressing Condition: Clean, Dry, Intact Surgical Drain, Tube Dressing/Activity: Transparent Surgical Drain, Tube Drainage Method: Compression Surgical Drain, Tube - Tube Descr: Purulent Implanted port Left Central IV Activity: Assessed Central IV Number of Lumens: Single Central IV Patency Proximal Port: Flushes easily Central IV Dressing Condition: Clean, Dry, Intact Central IV Site Condition: No complications Central IV Equipment: PRN Adaptor Violence Risk Confused No Violence Risk Irritable No Violence Risk Boisterous No Violence Risk Verbal Threats No Violence Risk Physical Threats No Violence Risk Attacking Objects No Violence Risk Predictor Score 0 Violence Risk Intervention None Violence Risk Current Interventions None Positioning Repositions self Beds/Devices Hospital bed 08/27/2024 19:50 EST Nail Bed Color [place] Capillary Refill < 2 seconds Dorsalis Pedis Pulse, Left 2+ Normal Dorsalis Pedis Pulse, Right 2+ Normal Radial Pulse, Left 2+ Normal Radial Pulse, Right 2+ Normal Respirations Unlabored Respiratory Pattern Regular Breath Sounds Auscultated Anterior and posterior All Lobes Breath Sounds Clear, Diminished, Equal GI Symptoms Constipation, Nausea Bowel Sounds All Quadrants Present Urinary Elimination Voiding, no difficulties Skin Description Normal for ethnicity Skin Temperature Warm Skin Integrity Not intact, Pressure points intact Skin Turgor Elastic All Extremity Description Normal for ethnicity Temperature All Extremities Warm Mucous Membrane Color [place] Mucous Membrane Description Moist Neurological Language Able to speak clearly Neurological Symptoms Patient denies Gait Steady Extremity Movement Equal Swallowing Difficulty None Characteristics of Communication Appropriate Characteristics of Speech Clear Facial Symmetry Symmetric Level of Consciousness Alert DHRUV Yes Strength All Extremities Strong Tone All Extremities Normal Sensation All Extremities Intact Affect/Behavior Appropriate, Calm, Cooperative Orientation Oriented x 4 08/27/2024 18:16 EST Oncology Progress Note Progress Note 08/27/2024 17:55 EST piperacillin-tazobactam 4.5 gram(s) gram(s) 08/27/2024 17:54 EST Implanted port Left Central IV Activity: Accessed (Modified) Central IV Number of Lumens: Single Central IV Patency Proximal Port: Flushes easily, 20ml normal saline flush, Aspirated Central IV Dressing Condition: Clean, Dry, Intact Central IV Dressing / Activity: Changed, Port CHG dressing with proper placement Central IV Line Care: Alcohol port cap(s) in place, Alcohol port cap(s) changed, Date/time/initialspresent, Extension tubing changed, Primary tubing changed Central IV Site Condition: No complications Central IV Equipment: IV Pump, PRN Adaptor 08/27/2024 17:52 EST Implanted port Left Central IV Activity: De-accessed 08/27/2024 16:44 EST Pain Scale Assessment 0-10 Pain scale Primary Pain Location Low back Primary Pain Intensity 5 Reason for PRN medication Pain management PRN medication effectiveness Partial PRN Medication Effectiveness Evaluation PRN Medication Effectiveness Evaluation 08/27/2024 16:14 EST Primary Pain Intensity 8 GI Symptoms Nausea HYDROmorphone 0.5 mg mg 08/27/2024 16:11 EST sodium chloride 10 mL mL 08/27/2024 15:55 EST Temperature Oral 37 DegC Peripheral Pulse Rate 70 bpm Respiratory Rate 18 br/min Systolic Blood Pressure Non-Invasive 118 mmHg Diastolic Blood Pressure Non-Invasive 68 mmHg Heart Sounds ICU [id number] Heart Rhythm Regular 08/27/2024 15:43 EST Preferred Spoken Language Cuban 08/27/2024 15:42 EST Preferred Spoken Language Cuban 08/27/2024 15:40 EST Preferred Spoken Language Cuban 08/27/2024 15:00 EST Agustin-Pantera # 1 Buttock Right Surgical Drain, Tube Output: 40 mL Urine Count 1 EA 08/27/2024 13:43 EST Lunch Percent 50 % Oral Intake 120 mL Urine Count 1 EA Hospitalist Progress Note 08/27/2024 13:16 EST Pain Scale Assessment 0-10 Pain scale Primary Pain Location Low back Primary Pain Intensity 6 Reason for PRN medication Pain management PRN medication effectiveness No PRN Medication Effectiveness Evaluation PRN Medication Effectiveness Evaluation 08/27/2024 12:19 EST Agustin-Pantera # 1 Buttock Right Surgical Drain, Tube Activity: Assessed Surgical Drain, Tube Care: Minong collapsed Surgical Drain Site Condition: No complications Surgical Drain, Tube Dressing Condition: Clean, Dry, Intact Surgical Drain, Tube Dressing/Activity: Transparent Surgical Drain, Tube Drainage Method: Compression Surgical Drain, Tube - Tube Descr: Purulent Implanted port Left Central IV Activity: Assessed Central IV Number of Lumens: Single Central IV Patency Proximal Port: Continuous infusion Central IV Dressing Condition: Clean, Dry, Intact Central IV Dressing / Activity: CHG disk dressing with proper position Central IV Line Care: Alcohol port cap(s) in place Central IV Site Condition: No complications Central IV Equipment: IV Pump 08/27/2024 12:18 EST Up to Chair Sitting on edge of bed 08/27/2024 12:16 EST Primary Pain Location Hip Primary Pain Laterality Right Primary Pain Intensity 7 Primary Pain Quality Aching Pain Scale Type 0-10 Pain scale acetaminophen-hydrocodone 2 tab(s) tab(s) 08/27/2024 12:11 EST DAPTOmycin 600 mg mg Sodium Chloride 0.9% 50 mL mL 08/27/2024 12:08 EST Media [employer] Director School Note GI Navigator Tracking note 08/27/2024 11:52 EST Infectious Disease Progress Note Progress Note 08/27/2024 11:19 EST Discharge To, Anticipated Home independently Anticipated Discharge Date 08/28/2024 Transition Planning Note Transition Planning Ongoing Assessment 08/27/2024 10:48 EST potassium chloride 40 mEq mEq Sodium Chloride 0.9% Begin Bag 1,000 mL mL 08/27/2024 10:47 EST DAPTOmycin 600 mg mg (In Error) Sodium Chloride 0.9% 50 mL mL (In Error) 08/27/2024 9:49 EST Surgical Progress Note Progress Note 08/27/2024 9:37 EST piperacillin-tazobactam 4.5 gram(s) gram(s) 08/27/2024 9:14 EST CHG Preoperative Wash/Wipe Daily CHG bath Bed Bath Independent, in bathroom, Bedside Hair Care Independent Oral Care Independent Skin Care Done Skin Care Product Applied Skin moisturizer, CHG bath Ruth Care Independent Linen Change Done 08/27/2024 8:57 EST Interventional Radiology Progress Note IR Progress Note 08/27/2024 8:23 EST Agustin-Mott # 1 Buttock Right Surgical Drain, Tube Activity: Assessed Surgical Drain, Tube Care: Minong collapsed Surgical Drain Site Condition: No complications Surgical Drain, Tube Dressing Condition: Clean, Dry, Intact Surgical Drain, Tube Dressing/Activity: Transparent Surgical Drain, Tube Drainage Method: Compression Surgical Drain, Tube - Tube Descr: Purulent Surgical Drain, Tube Output: 15 mL 08/27/2024 8:19 EST Primary Pain Intensity 2 Primary Pain Non-Pharma Intervention Rest Primary Pain Nonverbal Response Appears restful Pain Scale Type PAINAD Nail Bed Color [place] Capillary Refill < 2 seconds Heart Rhythm Regular Dorsalis Pedis Pulse, Left 2+ Normal Dorsalis Pedis Pulse, Right 2+ Normal Radial Pulse, Left 2+ Normal Radial Pulse, Right 2+ Normal Respirations Unlabored Respiratory Pattern Regular Breath Sounds Auscultated Anterior and posterior All Lobes Breath Sounds Clear, Diminished Cough None Abdomen Description Non-distended, Soft, Rounded Abdomen Palpation Non-Tender Passing Flatus Yes Bowel Movement Last Date 08/25/2024 (Modified) Swallowing Disorder None Bowel Sounds All Quadrants Present Urinary Elimination Voiding, no difficulties Skin Description Normal for ethnicity Skin Temperature Warm Skin Integrity Intact Skin Turgor Elastic All Extremity Description Normal for ethnicity Temperature All Extremities Warm Mucous Membrane Color [place] Mucous Membrane Description Moist Sensory Perception Momo No impairment Moisture Momo Rarely moist Activity Momo Walks frequently Mobility Momo No limitations Nutrition Momo Adequate Friction and Shear Momo No apparent problem Momo Score 22 Hospital Acquired Pressure Injury Risk None/minimal risk (score 19-23) Continuous IV Infusions NS@100 Implanted port Left Central IV Activity: Assessed Central IV Number of Lumens: Single Central IV Patency Proximal Port: Continuous infusion Central IV Dressing Condition: Clean, Dry, Intact Central IV Dressing / Activity: Port CHG dressing with proper placement Central IV Line Care: Alcohol port cap(s) in place Central IV Site Condition: No complications Central IV Equipment: IV Pump Neurological Language Able to speak clearly Neurological Symptoms Patient denies Gait Unable to assess Extremity Movement Equal Swallowing Difficulty None Characteristics of Communication Appropriate Characteristics of Speech Clear Facial Symmetry Symmetric Level of Consciousness Alert DHRUV Yes Strength All Extremities Strong Tone All Extremities Normal Sensation All Extremities Intact Guerra Screen Daily History of Fall in Last 3 Months Guerra No Presence of Secondary Diagnosis Guerra Yes Use of Ambulatory Aid Guerra None, bedrest, wheelchair, nurse IV/PRN Adapter Fall Risk Guerra Yes Gait Weak or Impaired Fall Risk Guerra Normal, bedrest, immobile Mental Status Fall Risk Guerra Oriented to own ability Guerra Fall Risk Score 35 Violence Risk Confused No Violence Risk Irritable No Violence Risk Boisterous No Violence Risk Verbal Threats No Violence Risk Physical Threats No Violence Risk Attacking Objects No Violence Risk Predictor Score 0 Violence Risk Intervention None Violence Risk Current Interventions None Affect/Behavior Appropriate, Calm, Cooperative Orientation Oriented x 4 Positioning Repositioned back, Repositions self, Encouraged/reinforced importance of turning Activity Status ADL Awake Standard Safety ID band on, Call device within reach, Bed in low position, Wheels locked, Upper/Half-Length side-rails up, Phone within reach, personal items within reach, Visitor at bedside High Risk Safety Room located near nursing station, Room check performed Demonstrates Correct Call Light Use Yes 08/27/2024 8:18 EST enoxaparin 40 mg mg sodium chloride 10 mL mL 08/27/2024 8:15 EST BMAT Existing Patient Condition/Safety No order for Strict Bedrest BMAT Level 1: Sit and Shake Sit, side bed/reach midline/shake hands BMAT Level 2: Stretch and Point Seated position, straighten 1 knee; Flex ankle & point toes BMAT Level 3: Stand Patient unable BMAT Mobility Level 2 Individuals Taught Patient Learning Readiness Willing to learn Barriers to Learning None evident Teaching Method Explanation Preferred Spoken Language Cuban Preferred Written Language Cuban Disease Process General Education Signs/Symptoms to report Environment/Rights Education Unit procedures Patient Care Education Activity limitations/expectations, Plan of care Teaching Evaluation Verbalizes/Nonverbally indicates understanding Anticoag. Med Educated Enoxaparin (Lovenox) Reason/Purpose of Anticoagulant DVT prophylaxis Anticoagulation Medication Generic/Brand name, purpose, action Demonstrates Self Injection N/A Anticoag Med(s) Teaching Evaluation Verbalizes/Nonverbally indicates understanding Supplement Intake 120 mL 08/27/2024 8:09 EST Breakfast Percent 75 % Oral Intake 240 mL Stool Count 0 EA Urine Count 2 EA 08/27/2024 7:54 EST Discharge To, Anticipated Home independently Anticipated Discharge Date 08/28/2024 Transition Planning Note Transition Planning Ongoing Assessment 08/27/2024 7:42 EST Surgical Progress Note Progress Note (Modified) 08/27/2024 7:27 EST Temperature Oral 37.0 DegC Peripheral Pulse Rate 68 bpm Respiratory Rate 18 br/min Systolic Blood Pressure Non-Invasive 113 mmHg Diastolic Blood Pressure Non-Invasive 73 mmHg Blood Pressure Method Automatic Blood Pressure Location Right arm Blood Pressure Cuff Size Medium Oxygen Therapy Room air Oxygen Saturation 93 % Positioning Repositioned right side, Repositions self Activity Status ADL Awake, Lights dimmed, Resting, Other: Standard Safety ID band on, Call device within reach, Bed in low position, Visitor at bedside, Safety level maintained High Risk Safety Room check performed Demonstrates Correct Call Light Use Yes 08/27/2024 7:26 EST Pain Scale Assessment PAINAD Primary Pain Location Flank Primary Pain Intensity 1 Reason for PRN medication Pain management PRN medication effectiveness Yes PRN Medication Effectiveness Evaluation PRN Medication Effectiveness Evaluation 08/27/2024 7:00 EST Nurse Safety Checks q2hrs Performed 3am-7am 08/27/2024 6:26 EST Primary Pain Location Flank Primary Pain Intensity 7 Primary Pain Pharma Intervention Medication Primary Pain Nonverbal Response Nods Yes Pain Scale Type 0-10 Pain scale acetaminophen-hydrocodone 2 tab(s) tab(s) 08/27/2024 5:36 EST omeprazole 20 mg mg 08/27/2024 5:35 EST WBC 6.6 10^3/mcL RBC 3.33 10^6/mcL LOW Hgb 7.2 G/dL LOW Hct 23.4 % LOW MCV 70.3 fL LOW MCH 21.6 pg LOW MCHC 30.7 G/dL LOW RDW 17.5 % HI Platelet 328 10^3/mcL MPV 8.4 fL Neutrophil % 70.1 % Lymphocyte % 22.7 % Monocyte % 6.8 % Eosinophil % 0.1 % Basophil % 0.3 % Neutrophil, Absolute 4.6 10^3/mcL Lymphocyte, Absolute 1.5 10^3/mcL Monocyte, Absolute 0.5 10^3/mcL Eosinophil, Absolute 0.0 10^3/mcL Basophil, Absolute 0.0 10^3/mcL Glucose Level 124 mg/dL HI Sodium Level 139 mEq/L Potassium Level 3.4 mEq/L LOW Chloride 105 mEq/L CO2 29 mEq/L Electrolyte Balance 5.0 mEq/L BUN <5.0 mg/dL LOW Creatinine Lvl (s) 0.44 mg/dL LOW Estimated Glomerular Filtration Rate >120 ml/min/1.73sqm NA BUN/Creatinine Ratio Unable to Calculate ratio Calcium Lvl 8.2 mg/dL LOW Magnesium Lvl 1.8 mg/dL Phosphorus 2.8 mg/dL Creatinine Clearance Calc 134.45 mL/min 08/27/2024 5:34 EST Agustin-Mott # 1 Buttock Right Surgical Drain, Tube Activity: Assessed Surgical Drain, Tube Care: [place] collapsed Surgical Drain Site Condition: No complications Surgical Drain, Tube Dressing Condition: Clean, Dry, Intact Surgical Drain, Tube Dressing/Activity: Transparent Surgical Drain, Tube Drainage Method: Compression Surgical Drain, Tube - Tube Descr: Purulent Surgical Drain, Tube Output: 25 mL Continuous IV Infusions NS@100 Implanted port Left Central IV Activity: Assessed Central IV Number of Lumens: Single Central IV Patency Proximal Port: Flushes easily, 20ml normal saline flush, Aspirated Central IV Dressing Condition: Clean, Dry, Intact Central IV Dressing / Activity: Port CHG dressing with proper placement Central IV Line Care: Alcohol port cap(s) in place, Alcohol port cap(s) changed Central IV Site Condition: No complications Central IV Equipment: IV Pump Positioning Repositioned right side, Repositions self Activity Status ADL Awake, Resting Nurse Safety Checks q2hrs Performed In Error (In Error) Standard Safety ID band on, Call device within reach, Bed in low position, Wheels locked, Upper/Half-Length side-rails up, Phone within reach, personal items within reach, Visitor at bedside High Risk Safety Room located near nursing station, Door open, Bathroom light on, Room check performed Demonstrates Correct Call Light Use Yes 08/27/2024 3:39 EST Continuous IV Infusions NS@100 Implanted port Left Central IV Activity: Assessed Central IV Number of Lumens: Single Central IV Patency Proximal Port: Flushes easily, 10ml normal saline flush, Aspirated, Good blood return Central IV Dressing Condition: Clean, Dry, Intact Central IV Dressing / Activity: Port CHG dressing with proper placement Central IV Line Care: Alcohol port cap(s) in place, Alcohol port cap(s) changed Central IV Site Condition: No complications Central IV Equipment: IV Pump 08/27/2024 1:02 EST Implanted port Left Central IV Activity: Assessed Central IV Number of Lumens: Single Central IV Patency Proximal Port: Continuous infusion Central IV Dressing Condition: Clean, Dry, Intact Central IV Dressing / Activity: Port CHG dressing with proper placement Central IV Line Care: Alcohol port cap(s) in place Central IV Site Condition: No complications Central IV Equipment: IV Pump Sodium Chloride 0.9% Begin Bag 1,000 mL mL 08/27/2024 1:00 EST piperacillin-tazobactam 4.5 gram(s) gram(s) 08/27/2024 0:51 EST Positioning Repositions self Activity Status ADL Resting Standard Safety ID band on High Risk Safety Room check performed Demonstrates Correct Call Light Use Yes 08/27/2024 0:00 EST sodium chloride 10 mL mL . Assessment and Plan [place] [employer] (ASA) physical status classification: Class III. Anesthetic Preoperative Plan Anesthetic technique: General. Induction: intravenously. Maintenance airway: Oral endotracheal tube. Regional: bilateral ql block . Postoperative pain management: Per surgeon. Risks discussed: nausea, vomiting, headache, sore throat, dental injury, hypotension, allergic reaction, serious complications. Informed consent: signed by patient. Notes: Extensive time was spent discussing with the patient and/or POA the inherent risks of anesthesia including but not limited too sore throat, dental injuries to teeth and gums, corneal abrasions, risk of heart attack, stroke, end organ dysfunction, and . The patient and/or POA is aware ofthese risks, accepts them and wishes to proceed with anesthesia. 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 The patient is aware that they are at risks for suffering bleeding, infection, nerve injury and/or permanent nerve damage that may affect the use of an extremity, the risk of intravascular injection leading to neurological seizures, coma, heart dysrthmias that may result in . Patient accepts these risks and wishes to proceed with the nerve block. Patient also is aware to take great care with the blocked extremity to avoid injury as sensation will be affected. . Digitally Signed by LYRIC COULTER DO on 08/28/2024 01:06 PM [id number] Infectious disease Progress note Date of Service 08/28/2024 Chief Complaint Multiple pelvic abscess Subjective Patient seen and independently evaluated the bedside. She is resting in bed comfortably in no acutedistress. Complains of fever, chills and night sweats overnight. Additionally complains of significant pelvic pain and dry heaves with nausea. No diarrhea. No shortness of breath or cough. No urinarycomplaints. Objective Vitals and Measurements T: 37.2 C (Oral) TMIN: 37 C (Oral) TMAX: 38.6 C (Oral) HR: 97 RR: 18 BP: 115/71 SpO2: 91% Intake and Output 7AM Yesterday to 7AM Today Intake and Output (Last 24 hours) Intake Oral Intake 120.00 Supplement Intake 240.00 Output Surgical Drain, Tube Output: 60.00 Stool Count 1.00 Urine Count 3.00 Total Summary Total Intake 360.00 Total Output 60.00 Fluid Balance 300.00 Physical Exam General: No acute distress. Alert and Appropriate Skin: No rash. Warm, Dry, Intact HEENT: Head is normocephalic and atraumatic. No lesions. Pupils equal in size. Extraocular movements within normal limits. Nose: No septal deviation. Mouth: Oropharynx mucosa is without lesion. Neck: Supple. No lymphadenopathy, thyromegaly noted. No carotid bruit heard. Lungs: Bilaterally clear breath sounds with no crepitation or wheeze. Cardiovascular: Heart is regular rhythm, S1S2, No extra-audible heart tones Abdomen: Abdomen is soft, tender in the lower quadrants. Bowel sounds positive all four quadrants. No hepatosplenomegaly noted. Extremities: No clubbing, cyanosis or edema. Peripheral pulses palpable. No calf tenderness. Adequate peripheral circulation. Neurological: The patient is awake, oriented to person, place and time. Following simple commands, moving all extremities. Weight Dosing Weight: 99.8 kg (08/19/24) Dosing Weight: 99.8 kg (08/19/24) Medications Medications (15) Active Scheduled: (6) DAPTOmycin 600 mg 12 mL, IV Piggyback, qDay enoxaparin 40 mg/ 0.4mL syringe 40 mg 0.4 mL, Subcutaneous, qDay [facility] communication order 1 EA, Miscellaneous, Daily omeprazole [address] capsule 20 mg 1 cap(s), Oral, qDay piperacillin-tazobactam PMX 4.5 gram(s) 100 mL, IV Piggyback, q8h sodium chloride 0.9% 10 ml syringe cristina flush 10 mL, IR Drain, q8h Continuous: (0) PRN: (9) acetaminophen 325 mg Tablet 650 mg 2 tab(s), Oral, q4h acetaminophen-HYDROcodone 325-5 mg tablet 2 tab(s), Oral, q4h dextrose 50% Solution Disp syringe 50 mL 25 gram(s) 50 mL, IV Push, AsDirected docusate-senna (Senokot S) 50 mg-8.6 mg Tablet 1 tab(s), Oral, qDay HYDROmorphone 0.5 mg/0.5 mL syringe 0.5 mg 0.5 mL, IV Push, q4h melatonin 3 mg tablet 3 mg 1 tab(s), Oral, qHS melatonin 3 mg tablet 3 mg 1 tab(s), Oral, qHS ondansetron 8 mg tablet 8 mg 1 tab(s), Oral, q8h polyethylene glycol 3350 - UD packet 17 gram(s) 15 mL, Oral, qDay Lab Results 08/28 07:01 WBC: 13.2 H Hgb: 8.0 L Hct: 25.0 L Platelet: 451 H Glucose Level: 110 Sodium Level: 138 Potassium Level: 3.2 L BUN: <5.0 L Creatinine Lvl (s): 0.45 L 08/27 05:35 WBC: 6.6 Hgb: 7.2 L Hct: 23.4 L Platelet: 328 Neutrophil %: 70.1 Glucose Level: 124 H Sodium Level: 139 Potassium Level: 3.4 L BUN: <5.0 L Creatinine Lvl (s): 0.44 L Imaging Results and Diagnostics CT Abdomen/Pelvis w/Contrast Result Date: August 22, 2024 Verified By: IRMA ORDOÑEZ MD CLINICAL STATEMENT: IMPRESSION: 1. Liver lesions are fairly similar to the prior exam. Whether these aresolid/metastatic or could be liver abscesses is uncertain on the basis ofthis exam.2. Pelvic inflammation with multiloculated fluid collections/abscess andsuspected fistula as well, very similar to the prior exam.3.Mild retroperitoneal adenopathy, stable. CT Abd/Pelvis w/ IV Contrast Only Result Date: August 19, 2024 Verified By: LAUREANO NG MD CLINICAL STATEMENT: IMPRESSION: Multifocal pelvic abscesses. Question fistulous communication with thesigmoid colon to the abscess eccentric to the right adnexa, as detailed above. Evidence for worsening hepatic metastatic disease. More conspicuouspara- aortic adenopathy. Diverticulosis without evidence of a evidence of diverticulitis. Small stable lung nodule in the right lower lobe. Continued attention onfollow-up.I have personally reviewed the images of this examination and agree with theresident's findings andinterpretation. EKG No qualifying data available. Assessment/Plan Sepsis Multiple pelvic abscess Fever Leukocytosis Adenocarcinoma of the colon with mets to the liver Patient is a 44-year-old female with history of metastatic colon cancer with mets to the liver on chemotherapy through chest port, history of pelvic abscess back in 2023 with associated bacteremia requiring IR drainage and antibiotic use currently presents to the hospital on 08/19/[address] abdomen/pelvis concerning for multiple pelvic abscess with question of fistulous communication with the sigmoid colon. ID on board for pelvic abscesses. Pelvic abscesses. Status post IR drainage, body fluid cultures grew E. coli, sensitivities pending.General surgery planning on diverting colostomy today. Now has recurrent fevers and leukocytosis with significant pelvic pain. As patient is having persistent fevers, will obtain Dopplers ultrasound of the lower legs and COVID/flu/RSV. Discussed with Dr. Mata, will reach out to IR to ensure that the drain is in the properposition. Consider repeat CT abdomen/pelvis if symptoms do not improve. Will follow culture data and await diverting colostomy per general surgery. Continue Zosyn, daptomycin. Plan of care discussed in depth with patient. All questions answered. Patient verbalized understanding and is agreeable to plan of care. Discussed with my collaborating physician Dr. Lele Peña. Any changes to the plan will be added to end as an addendum. Time Spent I spent a total of 43 minutes reviewing the patient s diagnostic labs/tests, seeing and examining the patient and documenting in the medical record, see assessment for further detail. Digitally Signed by MARISA MARTIN on 08/28/2024 03:20 PM [id number] Oncology Progress note Date of Service 08/27/24 Chief Complaint Follow up Subjective Sleepy , having pain today . IR drained abscess and she has a drain that si still draining pus . Feels like she needs a stool softner . Plan is for Diversion colostomy tomorrow by Dr Artem Rodrigez . ID following Objective Vitals and Measurements T: 37.0 C (Oral) HR: 68 RR: 18 BP: 113/73 SpO2: 93% Intake and Output 7AM Yesterday to 7AM Today Intake and Output (Last 24 hours) Intake Oral Intake 960.00 Supplement Intake 120.00 Output Surgical Drain, Tube Output: 60.00 Stool Count 0.00 Urine Count 6.00 Total Summary Total Intake 1080.00 Total Output 60.00 Fluid Balance 1020.00 Physical Exam General Appearance: comfortable , no acute distress Eyes: No scleral icterus , conjunctiva normal Cardiac: S1, S2+ no murmurs Lungs: symmetrical expansion bilaterally , Clear to auscultation bilaterally , no wheezes Abdomen: soft , non tender , no organomegaly , BS normal , LYLA drain with 25 cc purlent material Weight Dosing Weight: 99.8 kg (08/19/24) Dosing Weight: 99.8 kg (08/19/24) Medications Medications (13) Active Scheduled: (6) DAPTOmycin 600 mg 12 mL, IV Piggyback, qDay enoxaparin 40 mg/ 0.4mL syringe 40 mg 0.4 mL, Subcutaneous, qDay Misc communication order 1 EA, Miscellaneous, Daily omeprazole [address] capsule 20 mg 1 cap(s), Oral, qDay piperacillin-tazobactam PMX 4.5 gram(s) 100 mL, IV Piggyback, q8h sodium chloride 0.9% 10 ml syringe cristina flush 10 mL, IR Drain, q8h Continuous: (0) PRN: (7) acetaminophen 325 mg Tablet 650 mg 2 tab(s), Oral, q4h acetaminophen-HYDROcodone 325-5 mg tablet 2 tab(s), Oral, q4h dextrose 50% Solution Disp syringe 50 mL 25 gram(s) 50 mL, IV Push, AsDirected HYDROmorphone 0.5 mg/0.5 mL syringe 0.5 mg 0.5 mL, IV Push, q4h melatonin 3 mg tablet 3 mg 1 tab(s), Oral, qHS melatonin 3 mg tablet 3 mg 1 tab(s), Oral, qHS ondansetron 8 mg tablet 8 mg 1 tab(s), Oral, q8h Lab Results 08/27 05:35 WBC: 6.6 Hgb: 7.2 L Hct: 23.4 L Platelet: 328 Neutrophil %: 70.1 Glucose Level: 124 H Sodium Level: 139 Potassium Level: 3.4 L BUN: <5.0 L Creatinine Lvl (s): 0.44 L EKG No qualifying data available. 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 Pelvic abscess drained by IR , final cx pending . Diversion colostomy tomorrow . Will likely antibiotics at home going . Will follow along during hospital course . Restart of chemo will be delayed until after completion of antimicrobial therapy . Time Spent [id number] Digitally Signed by ROSEANN LUNDBERG MD on 08/27/2024 06:22 PM [id number] Infectious disease Progress note Date of Service August 27, 2024 Chief Complaint Pelvic abscess Subjective Patient seen and independently evaluated the bedside. She is resting in bed comfortably in no acutedistress. Feels much better today. Her pelvic pain has improved. Her appetite, nausea have improvedsignificantly. No vomiting or diarrhea. Able to tolerate breakfast without difficulty. No shortnessof breath or cough. No urinary complaints. Objective Vitals and Measurements T: 37.0 C (Oral) HR: 68 RR: 18 BP: 113/73 SpO2: 93% Intake and Output 7AM Yesterday to 7AM Today Intake and Output (Last 24 hours) Intake Oral Intake 840.00 Administration Information 800.00 Supplement Intake 0.00 Output Surgical Drain, Tube Output: 120.00 Stool Count 0.00 Urine Count 5.00 Total Summary Total Intake 1640.00 Total Output 120.00 Fluid Balance 1520.00 Physical Exam General: No acute distress. Alert and Appropriate Skin: No rash. Warm, Dry, Intact HEENT: Head is normocephalic and atraumatic. No lesions. Pupils equal in size. Extraocular movements within normal limits. Nose: No septal deviation. Mouth: Oropharynx mucosa is without lesion. Neck: Supple. No lymphadenopathy, thyromegaly noted. No carotid bruit heard. Lungs: Bilaterally clear breath sounds with no crepitation or wheeze. Cardiovascular: Heart is regular rhythm, S1S2, No extra-audible heart tones Abdomen: Abdomen is soft, tender in the lower quadrants. Bowel sounds positive all four quadrants. No hepatosplenomegaly noted. Extremities: No clubbing, cyanosis or edema. Peripheral pulses palpable. No calf tenderness. Adequate peripheral circulation. Neurological: The patient is awake, oriented to person, place and time. Following simple commands, moving all extremities. Weight Dosing Weight: 99.8 kg (08/19/24) Dosing Weight: 99.8 kg (08/19/24) Medications Medications (14) Active Scheduled: (6) DAPTOmycin 600 mg 12 mL, IV Piggyback, qDay enoxaparin 40 mg/ 0.4mL syringe 40 mg 0.4 mL, Subcutaneous, qDay Misc communication order 1 EA, Miscellaneous, Daily omeprazole [address] capsule 20 mg 1 cap(s), Oral, qDay piperacillin-tazobactam PMX 4.5 gram(s) 100 mL, IV Piggyback, q8h sodium chloride 0.9% 10 ml syringe cristina flush 10 mL, IR Drain, q8h Continuous: (1) NS (0.9% nacl) 1,000 mL 1,000 mL, Intravenous, 100 mL/hr PRN: (7) acetaminophen 325 mg Tablet 650 mg 2 tab(s), Oral, q4h acetaminophen-HYDROcodone 325-5 mg tablet 2 tab(s), Oral, q4h dextrose 50% Solution Disp syringe 50 mL 25 gram(s) 50 mL, IV Push, AsDirected HYDROmorphone 0.5 mg/0.5 mL syringe 0.5 mg 0.5 mL, IV Push, q4h melatonin 3 mg tablet 3 mg 1 tab(s), Oral, qHS melatonin 3 mg tablet 3 mg 1 tab(s), Oral, qHS ondansetron 8 mg tablet 8 mg 1 tab(s), Oral, q8h Lab Results 08/27 05:35 WBC: 6.6 Hgb: 7.2 L Hct: 23.4 L Platelet: 328 Neutrophil %: 70.1 Glucose Level: 124 H Sodium Level: 139 Potassium Level: 3.4 L BUN: <5.0 L Creatinine Lvl (s): 0.44 L 08/26 04:59 WBC: 12.6 H Hgb: 7.9 L Hct: 25.5 L Platelet: 422 Neutrophil %: 78.6 H Protime: 15.8 H PT International Ratio: 1.4 Glucose Level: 109 Sodium Level: 139 Potassium Level: 3.2 L BUN: <5.0 L Creatinine Lvl (s): 0.49 L Imaging Results and Diagnostics CT Abdomen/Pelvis w/Contrast Result Date: August 22, 2024 Verified By: IRMA ORDOÑEZ MD CLINICAL STATEMENT: IMPRESSION: 1. Liver lesions are fairly similar to the prior exam. Whether these aresolid/metastatic or could be liver abscesses is uncertain on the basis ofthis exam.2. Pelvic inflammation with multiloculated fluid collections/abscess andsuspected fistula as well, very similar to the prior exam.3.Mild retroperitoneal adenopathy, stable. CT Abd/Pelvis w/ IV Contrast Only Result Date: August 19, 2024 Verified By: LAUREANO NG MD CLINICAL STATEMENT: IMPRESSION: Multifocal pelvic abscesses. Question fistulous communication with thesigmoid colon to the abscess eccentric to the right adnexa, as detailed above. Evidence for worsening hepatic metastatic disease. More conspicuouspara- aortic adenopathy. Diverticulosis without evidence of a evidence of diverticulitis. Small stable lung nodule in the right lower lobe. Continued attention onfollow-up.I have personally reviewed the images of this examination and agree with theresident's findings andinterpretation. EKG No qualifying data available. Assessment/Plan Sepsis Multiple pelvic abscess Fever Leukocytosis Adenocarcinoma of the colon with mets to the liver Patient is a 44-year-old female with history of metastatic colon cancer with mets to the liver on chemotherapy through chest port, history of pelvic abscess back in 2023 with associated bacteremia requiring IR drainage and antibiotic use currently presents to the hospital on 08/19/[address] abdomen/pelvis concerning for multiple pelvic abscess with question of fistulous communication with the sigmoid colon. ID on board for pelvic abscess. Pelvic abscesses likely secondary to adenocarcinoma of the sigmoid colon. Status post IR drainage, 50 mL of purulent drainage was removed. Intraoperative cultures growing gram-positive cocci, gram-positive rods and gram-negative rods. General surgery planning on diverting colostomy tomorrow. No fevers or leukocytosis. Will follow culture data. Continue Zosyn, daptomycin. Plan of care discussed in depth with patient. All questions answered. Discussed with my collaborating physician Dr. Lele Peña. Any changes to the plan will be added to end as an addendum. Time Spent I spent a total of 42 minutes reviewing the patient s diagnostic labs/tests, seeing and examining the patient and documenting in the medical record, see assessment for further detail. Digitally Signed by MARISA MARTIN on 08/27/2024 02:46 PM [id number] Interventional radiology Progress note Interventional Radiology Progress Note IR Procedure 1. 10 Fr pelvic abscess drainage catheter insertion - 08/26/2024 Subjective 44-year-old female metastatic sigmoid cancer to the liver with recurrent pelvic abscess requiring percutaneous drainage catheter. Patient was admitted to the hospital in March 2024 with diverticulitis with abscess requiring drainage catheter insertion. Because of a fistulous communication to the bowel she required her drainage catheter for several weeks until fistula closed. Once imaging showed resolution, the drainage catheter was then removed in March. Since that time, the patient was found to have biopsy proven adenocarcinoma of the sigmoid colon and metastatic disease to the liver and now undergoing chemotherapy. Patient presented to the hospital on 08/19/2024 with complaints of fevers and abdominal pain. CT ofthe abdomen and pelvis demonstrated multiple pelvic abscesses. Ultimately a drain was placed in a pelvic abscess on 08/26/2024. Patient has also been evaluated by general surgery with plans for a diverting colostomy tomorrow. This morning the patient reports feeling better. She states her fevers and abdominal pain has improved. She does endorse pain in the right buttock at the drain insertion site, which she states is comparable to her discomfort last fall when this drain was in place. Physical Exam Vitals: [id number] (07:27) Systolic Blood [id number] (07:27) Diastolic Blood Eduknska37 (07:27) Pulse68 (07:27) YbC798 (07:27) Respiratory RateNo result General: Alert, nontoxic, no acute distress. RIGHT buttock: 10 Fr drainage catheter is noted with dressings that are clean, dry and intact. Tender to palpate at the insertion site. Actively draining cloudy/ purulent fluid into LYLA bulb. No kinksor clogging noted in the drainage tubing. The remainder of the physical exam is noncontributory. Labs Relevant labs reviewed. Output Intake and Output (Last 24 hours) Intake Oral Intake 840.00 Administration Information 800.00 Supplement Intake 0.00 Output Surgical Drain, Tube Output: 120.00 Stool Count 0.00 Urine Count 5.00 Total Summary Total Intake 1640.00 Total Output 120.00 Fluid Balance 1520.00 Assessment/Treatment Plan 44-year-old female with history of sigmoid cancer and recurrent pelvic abscess Day #1 post pelvic abscess drainage catheter insertion. The abscess drainage catheter appears to be draining well. Culture is pending. Plan for patient to have a diverting colostomy tomorrow with general surgery. There is a possibility for a fistulous communication given this has occurred in the past and the location of her pelvic abscess. Will continue with flushing at this point to decompress the acute infection. Once a contrast injection confirms a fistula, then will stop flushing. This was discussed andreviewed with Dr. Jose. Management and follow up was discussed and reviewed with the patient - although she is familiar with the follow up she underwent in the fall. Recommend removal of abscess drainage catheter when dailyoutput <10 cc and imaging shows resolution of abscess and no fistula. Will plan for follow-up with IR 1-2 weeks after discharge for CT abd/pelvis and drainage catheter evaluation to evaluate abscess and possibly remove drain. IR Follow Up Plan - IR to follow in the periphery - Monitor output from abscess drainage catheter Polina Donovan PA-C Interventional Radiology Pager: [phone] IR dept: x [phone] Available on [employer] Digitally Signed by POLINA DONOVAN PA-C on 08/27/2024 09:27 AM Digitally Signed by KENAN JOSE MD on 08/27/2024 11:59 AM [id number] Note* Exam Date Time Procedure Performing Provider Status 08/26/24 3:51 PM IR Aspiration/Drainage KENAN JOSE MD ; Auth (Verified) [id number] ORIGINAL HISTORY: ORDERING SYSTEM PROVIDED HISTORY: Reason for Exam: multiple pelvic abscesses TECHNIQUE: Dose modulation, iterative reconstruction, and/or weight based adjustment of the mA/kV was utilized to reduce the radiation dose to as low as reasonably achievable. PROCEDURE: 1. CT guided percutaneous drainage catheter placement, right lower pelvis VEGETABLE PICKER: Dr. Jose Resident: Dr. Yoon MATERIALS: 18 G thin wall Amplatz 10 Fr APD Suction bag Dilator Prolene ANESTHESIA: Moderate conscious sedation administered. Patient was monitored throughout the procedure by nurse. INTRASERVICE TIME (min): 48 SKIN ENTRY SITE: Right buttock ASPIRATE (mL): 50, purulent DISPO: Lab FINDINGS: PRE: Multiloculated fluid collection eccentric to the right lower pelvis. Free fluid anterior to the urinary bladder. Diverticulosis without diverticulitis. Air is also noted within the right fallopian tube (best appreciated series 2, image 34). POST: Catheter pigtail within the collapsed dominant fluid collection. The procedure, risks, and alternatives, were discussed with the patient and all questions were answered. Written informed consent obtained. Procedure was performed using a cap, sterile gloves, a sterile sheet or towels, hand hygiene and hospital approved cutaneous antisepsis. Time out performed. Percutaneous site was sterilely prepped and draped. After local anesthesia administered and dermatotomy creation, needle was advanced into the fluid collection with CT guidance. Wire was coiled in the fluid collection under CT. After dilatation, drainage catheter was advanced into the collection and distal loop formed under CT guidance. Catheter was attached to bulb suction. Catheter was affixed to the patient with suture. Sterile dressing placed. COMPLICATION: None EBL: Minimal CONDITION: Stable IMPRESSION: 1. Successful image guided pigtail drainage catheter placement. 2. Catheter and bag should be flushed with 10 mL sterile normal saline TID as inpatient and then once a day after discharge. 3. Suggest catheter removal once daily output is less than 10 mL and follow up imaging demonstrates resolution and/or no evidence of fistula. The procedure was done with participation of the resident in my presence and direct supervision. I have reviewed the images and the findings with the resident and agree with the contents of the report. Interpreted by: Kenan Jose MD Preliminary Report By: Edilma Yoon Electronically signed By Kenan Jose MD Dictated Date: 08/26/2024 4:42:17 PM Prelim Date: 08/29/2024 7:16:07 PM Sign Date: 08/29/2024 7:16:07 PM Ordering Provider: [facility]02-26-2025 Procedure note Brief IR Post Procedure Note - Inpatient/Obs Pre Procedure Dx: Pelvic Abscess Post Procedure Dx: Same Procedure: 1. CT Guided Drainage Catheter Placement Acid Plant Helper: Rebeca Resident: Car Anesthesia: Local, moderate sedation EBL: Minimal Complications:None Status: Stable Findings: 1. Successful right low pelvic drainage catheter placement, 10Fr x 35cm, to bulb suction. 50mL purulent fluid aspirated, fluid sample sent. Plan: 1. Post sedation VS check. Flush TID w/ 10mL NS. 2. Resume diet from IR standpoint. 3. Continued patient management per primary team Full report to follow. Orders in [employer]. Edilma Yoon MD V/IR Resident, PGY-5 [place] IR Dept (21/01): [phone] [facility] [phone] [facility] Digitally Signed by EDILMA YOON MD on 08/26/2024 03:15 PM Digitally Signed by KENAN JOSE MD on 08/26/2024 05:51 PM [facility] [id number] Note IR Procedure Record Summary Primary Physician: KENAN JOSE MD Finalized Date/Time: 08/26/24 15:10:48 Pt. Name: SUDHIRCLARISSE /Sex: 1980 Female Med Rec #: [id number] Physician: VANESSA CAMPBELL MD Financial #: [id number] Pt. Type: I Room/Bed: [facility] Admit/Disch: 08/19/24 03:51:18 - Institution: Allergies identified in patient's electronic medical record at time of printing on 08/26/24 Entry 1 Substance NKA Reaction Type Allergy Last Modified By: Gisselle Hector RN 03/09/24 04:11:39 Case Attendance- IR Entry 1 Entry 2 Entry 3 Case Attendee KENAN JOSE MD, RN Jennifer M Myers, Jessica DAVID Role Performed Primary Surgeon Procedure Nurse Patient Service Coordinator Details Time In 08/26/24 14:05:00 08/26/24 14:05:00 08/26/24 14:05:00 Time Out 08/26/24 15:09:00 08/26/24 15:11:00 08/26/24 15:11:00 Procedure/Preference IR Aspiration/Drainage IR Aspiration/Drainage IR Aspiration/Drainage Card SN SN SN Last Modified By: MELA Hooks RN Jennifer M Fichter, RN Jennifer M 08/26/24 15:10:10 08/26/24 15:10:10 08/26/24 15:10:10 Entry 4 Case Attendee EDILMA YOON MD Role Performed Resident 1 Details Time In 08/26/24 14:05:00 Time Out 08/26/24 15:10:00 Procedure/Preference IR Aspiration/Drainage Card SN Last Modified By: MELA Hooks 08/26/24 15:10:10 Radiology Procedures- IR Entry 1 Procedure/Preference IR Aspiration/Drainage Actual Procedure IR ASPIRATION/DRAINAGE Card SN Actual Procedure ct/r aspiration drainage Primary Procedure Yes Continued Primary Surgeon KENAN JOSE MD Anesthesia/Sedation IV Sedation, Local Type Additional Procedure Times Start 08/26/24 14:11:00 Stop 08/26/24 15:07:00 Specialty Service SN Radiology Procedure EBL 0 mL Last Modified By: MELA Hooks 08/26/24 15:06:51 Radiology Procedure Details - IR Entry 1 Radiology Sedation Case Times Sedation Start Time 08/26/24 14:19:00 Sedation Stop Time 08/26/24 15:07:00 Sedation Total Time 48 minutes Radiology - Fluid/Drainage Fluid Amount mL: 50cc Fluid Description milky pus Radiology Contrast Contrast Used? No Dose 0 Radiology Flouroscopy Fluoroscopy Used? Yes Fluoro Dose (mGy) 582 Fluoro Time 12 seconds Radiology Local Local Used? Yes Local Type: lidocaine 2% Local Dose 20cc Radiology Procedure Site Site/Location r upper buttock Site Condition No complications Dressing Type Gauze sponge 4 X 4, Technologist Notes successful drain Tagaderm placement patient tolerated Last Modified By: MELA Hooks 08/26/24 15:09:53 Cultures and Specimens- IR Entry 1 Kind Culture Type Abscess Date/Time 08/26/24 15:05:00 Source r buttock sent for culture Last Modified By: MELA Hooks 08/26/24 15:10:42 General Case Data - IR Entry 1 Case Information Room AH IR CT Case Level IR Level 2 Wound Class None Specialty SN Radiology Procedure ASA Class None Diagnosis Preop Diagnosis pelvic abcess Postop Same As Preop Yes Postop Diagnosis pelvic abcess Last Modified By: MELA Hooks 08/26/24 13:49:33 Medication Administration- IR Entry 1 Entry 2 Entry 3 Medication versed fentanyl lidocaine 2% Time Administered 08/26/24 14:19:00 08/26/24 14:19:00 08/26/24 14:38:00 Route of Admin IV Push IV Push Local Dose 1mg 25mcg 20cc Volume 1 mL .5 mL 20 mL VORB * *Verbal Order Read Back (VORB) is required for NON- PHYSICIAN administration of medications. Administered by No No Yes Physician? Administered by: MELA Hooks RN Jennifer M SMITH, CHRISTOPHER MD Verbal Order Read REBECA, KENAN JOSE, KENAN EDWARD Back from: Last Modified By: MELA Hooks RN Jennifer M Fichter, RN Jennifer M 08/26/24 14:25:37 08/26/24 14:53:46 08/26/24 15:00:54 Entry 4 Entry 5 Entry 6 Medication benadryl versed fentanyl Time Administered 08/26/24 14:18:00 08/26/24 14:25:00 08/26/24 14:25:00 Route of Admin IV Push IV Push IV Push Dose 50mg 1mg 25mcg Volume 1 mL 1 mL .5 mL VORB * *Verbal Order Read Back (VORB) is required for NON- PHYSICIAN administration of medications. Administered by No No No Physician? Administered by: MELA Hooks RN Jennifer M Fichter, RN Jennifer M Verbal Order Read REBECA, KENAN JOSE, KENAN JOSE, KENAN EDWARD Back from: Last Modified By: MELA Hooks RN Jennifer M Fichter, RN Jennifer M 08/26/24 14:25:37 08/26/24 14:26:09 08/26/24 14:53:46 Entry 7 Entry 8 Entry 9 Medication fentanyl versed versed Time Administered 08/26/24 14:30:00 08/26/24 14:30:00 08/26/24 14:35:00 Route of Admin IV Push IV Push IV Push Dose 25mcg 1mg 1mg Volume .5 mL 1 mL 1 mL VORB * *Verbal Order Read Back (VORB) is required for NON- PHYSICIAN administration of medications. Administered by No No No Physician? Administered by: MELA Hooks RN Jennifer M Fichter, RN Jennifer M Verbal Order Read KENAN JOSE MD, KENAN JOSE, KENAN EDWARD Back from: Last Modified By: MELA Hooks RN Jennifer M Fichter, RN Jennifer M 08/26/24 14:53:46 08/26/24 14:53:46 08/26/24 14:53:46 Entry 10 Entry 11 Entry 12 Medication fentanyl versed fentanyl Time Administered 08/26/24 14:35:00 08/26/24 14:40:00 08/26/24 14:40:00 Route of Admin IV Push IV Push IV Push Dose 25mcg 1mg 25mcg Volume .5 mL 1 mL .5 mL VORB * *Verbal Order Read Back (VORB) is required for NON- PHYSICIAN administration of medications. Administered by No No No Physician? Administered by: MELA Hooks RN Jennifer M Fichter, RN Jennifer M Verbal Order Read KENAN JOSE MD, KENAN JOSE, KENAN EDWARD Back from: Last Modified By: MELA Hooks RN Jennifer M Fichter, RN Jennifer M 08/26/24 14:53:46 08/26/24 14:53:46 08/26/24 14:53:46 Procedure Case Times- IR Entry 1 Patient In Procedure Patient In OR 08/26/24 14:05:00 Patient Out of OR 08/26/24 15:11:00 Procedure Start/Stop Procedure Start Time 08/26/24 14:11:00 Procedure Stop Time 08/26/24 15:07:00 Last Modified By: MELA Hooks 08/26/24 15:10:03 Immediate Post OP Note - IR Entry 1 Immediate Post Yes Findings successful right low Procedure Note pelvic collection displayed for dinage catheter Physician to review placement. Approx 50cc frankly purulent fluids aspirated, sample sent for culture. 10Fr x 35cm drain placed to bulb suction. Closure Technique Closure Technique Other than Primary Last Modified By: MELA Hooks 08/26/24 15:08:56 Immediate Post OP Note - IR Signed By: EDILMA YOON MD 08/26/24 15:07 Allergy Information- IR Entry 1 Allergies Reviewed? Yes Allergies Reviewed Medical Record With Last Modified By: MELA Hooks 08/26/24 13:46:21 Radiology Protocols/Time Out- IR Entry 1 Preprocedure Clinician Verifies Correct patient ID When Clinically Confirmation of correct using name & date Indicated side(s) and site(s), or MRN, Accurate Correct diagnostic and procedure, complete radiology tests Informed Consent, H & P available, Required update immediately blood products, prior to procedure, if implants, devices applicable, Clinical and/or special team introduction equipment available, complete Preop antibiotics sent with patient/available in OR OR/Procedure Room/Bedside Time 08/26/24 14:07:00 Clinician Verifies Correct patient identity including EMR & records using name and date or medical record number, Accurate procedure consent form, Correct patient position, Necessary equipment is available, Anticipated non-routine events with surgical team (case duration, estimated blood loss, patient specific concerns)., [place] patient factors for recovery and management identified with surgical team. When Applicable Consent for Team Members KENAN JOSE MD, Administration of Present for Time Out MELA Hooks, Blood, Confirmation Angelia Solange DAVID correct side and site marked, Relevant images and results are properly labeled and appropriately displayed, Confirm/obtain preop antibiotic order., Alcohol based prep dry, Double verification of sterility indicators complete Instrument Sterility Team Members KENAN JOSE MD, Angelia, Verifying Sterility Solange TECH Procedure IR Aspiration/Drainage SN Last Modified By: MELA Hooks 08/26/24 14:07:08 Skin Prep- IR Entry 1 Procedure IR Aspiration/Drainage SN Skin Prep Prep Area Buttock Side Right By KENAN JOSE MD Prep Agents Chloraprep Hair Removal Method N/A Last Modified By: MELA Hooks 08/26/24 13:48:55 Patient Positioning- IR Entry 1 Procedure IR Aspiration/Drainage Body Position OP Prone SN Feet Uncrossed? Yes Pressure Points Yes Checked Last Modified By: MELA Hooks 08/26/24 13:48:40 Radiology Procedure Plan - IR Entry 1 Radiology - Nursing Care Plan Outcome Statement The patient Outcome Statement The patient receives demonstrates knowledge Cont. appropriate of the expected medication(s), safely responses to the administered during the operative/invasive perioperative/invasive procedure., The period., The patient is patient's value system, free from signs and lifestyle, ethnicity, symptoms of injury and culture are caused by extraneous considered, respected, objects (equipment, and incorporated in the instrumentation, perioperative plan of sponges, or sharps)., care., The patient is The patient is free free from signs and from signs and symptoms symptoms of infection., of electrical injury., The patient is free The patient is at or from signs and symptoms returning to of injury related to normothermia at the positioning., The conclusion of the patient is free from immediate signs and symptoms of postoperative/invasive chemical injury. period., The patient is free from signs and symptoms of laser injury. Radiology - Action Plan Outcomes Met? 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 MELA Hooks Completing Procedure Plan Last Modified By: MELA Hooks 08/26/24 13:49:19 Transfer Post Procedure- IR Entry 1 RAD - Transport to Recovery Patient Transported IV Via Patient Bed With Post-op Destination Receiving Transported By Solange Galan Fichter, RN Jennifer M Post Procedure Time Out Double Verification Yes Date/Time Verified 08/26/24 15:10:00 of ID band on patient Completed Verfied ID Band on MELA Hooks by Last Modified By: MELA Hooks 08/26/24 15:09:59 Case Comments Finalized By: MELA Hooks Document Signatures Signed By: MELA Hooks 08/26/24 15:10 MELA Hooks 08/26/24 15:10 [id number] Oncology Progress note Date of Service 08/24/24 Chief Complaint Follow up Subjective Doing better , still having fever , pain improved . Was worried about continuing chemo given complications. Told her that I will reach out to her surgeon Dr. Rodrigez as well as Dr. Clinton William at [facility]. She remains on broad-spectrum antibiotics. Objective Vitals and Measurements T: 37.6 C (Oral) TMIN: 37.0 C (Oral) TMAX: 38.6 C (Oral) HR: 107 RR: 18 BP: 120/66 SpO2: 96% Intake and Output 7AM Yesterday to 7AM Today Intake and Output (Last 24 hours) Intake Oral Intake 700.00 Output Stool Count 2.00 Urine Count 8.00 Total Summary Total Intake 700.00 Total Output 0.00 Fluid Balance 700.00 Physical Exam General Appearance: comfortable , no acute distress Eyes: No scleral icterus , conjunctiva normal ENT: Mucous membrane moist , no sores Cardiac: S1, S2+ no murmurs Lungs: symmetrical expansion bilaterally , Clear to auscultation bilaterally , no wheezes Abdomen: soft , non tender , no organomegaly , BS normal Weight Dosing Weight: 99.8 kg (08/19/24) Dosing Weight: 99.8 kg (08/19/24) Medications Medications (14) Active Scheduled: (6) DAPTOmycin 600 mg 12 mL, IV Piggyback, qDay enoxaparin 40 mg/ 0.4mL syringe 40 mg 0.4 mL, Subcutaneous, qDay micafungin 100 mg, IV Piggyback, qDay [facility] communication order 1 EA, Miscellaneous, Daily omeprazole [address] capsule 20 mg 1 cap(s), Oral, qDay piperacillin-tazobactam PMX 4.5 gram(s) 100 mL, IV Piggyback, q8h Continuous: (1) NS (0.9% nacl) 1,000 mL 1,000 mL, Intravenous, 100 mL/hr PRN: (7) acetaminophen 325 mg Tablet 650 mg 2 tab(s), Oral, q4h acetaminophen-HYDROcodone 325-5 mg tablet 2 tab(s), Oral, q4h dextrose 50% Solution Disp syringe 50 mL 25 gram(s) 50 mL, IV Push, AsDirected HYDROmorphone 0.5 mg/0.5 mL syringe 0.5 mg 0.5 mL, IV Push, q4h melatonin 3 mg tablet 3 mg 1 tab(s), Oral, qHS melatonin 3 mg tablet 3 mg 1 tab(s), Oral, qHS ondansetron 8 mg tablet 8 mg 1 tab(s), Oral, q8h Lab Results 08/25 05:42 WBC: 12.9 H Hgb: 8.2 L Hct: 26.5 L Platelet: 408 Neutrophil %: 83.4 H Glucose Level: 96 Sodium Level: 137 Potassium Level: 3.6 BUN: <5.0 L Creatinine Lvl (s): 0.45 L EKG No qualifying data available. 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 ANC was 0.7. Imaging finding concerning for intrapelvic abscesses, ? Colonic fistula, worsening metastatic disease with progression in liver. Is on broad-spectrum antibiotics. White count has improved. Pain much better. Has been evaluated by surgery Dr. Rodrigez , ID also following , primary team consideruing IR drainage of abcess Spoke with Dr. Harding and she recommends diversion colostomy. Will discuss with primary team to convey recommendations from surgical oncology at [facility]. Will also reach out to Dr. Rodrigez . Time Spent [id number] Digitally Signed by ROSEANN LUNDBERG MD on 08/25/2024 05:40 PM [facility] [id number] Note* Exam Date Time Procedure Performing Provider Status 08/22/24 11:[address] Abdomen/Pelvis w/Contrast Gene ORDOÑEZ MD; Auth (Verified) [id number] ORIGINAL EXAMINATION: CT OF THE ABDOMEN AND PELVIS WITH CONTRAST 08/22/2024 11:58 am TECHNIQUE: CT of the abdomen and pelvis was performed with the administration of intravenous contrast. Multiplanar reformatted images are provided for review. Automated exposure control, iterative reconstruction, and/or weight based adjustment of the mA/kV was utilized to reduce the radiation dose to as low as reasonably achievable. COMPARISON: August 19, 2024 HISTORY: ORDERING SYSTEM PROVIDED HISTORY: Reason for Exam: pelvic infection/ fever. MASS ON LFT SIDE PELVIS BUT SEVERE PAIN ON RT SIDE pelvic infection/ fever FINDINGS: Hypodense lesions in the liver are fairly similar to the prior exam. Central right lobe lesion is 3.7 cm, previously 4.5 cm. Anterior left lobe lesion is 2.6 cm, previously 2.7 cm. Mild retroperitoneal adenopathy is similar in appearance to the prior study. Pelvic inflammatory changes and multiloculated fluid collection again identified, with findings overall fairly similar to the previous study. There is some colonic wall thickening present, with fluid density extending from the margin of the sigmoid wall toward the fluid density areas. Overall, these findings are similar to the prior exam, and a fistula is not excluded. No new collection is evident elsewhere. No other significant interval change seen. IMPRESSION: 1. Liver lesions are fairly similar to the prior exam. Whether these are solid/metastatic or could be liver abscesses is uncertain on the basis of this exam. 2. Pelvic inflammation with multiloculated fluid collections/abscess and suspected fistula as well, very similar to the prior exam. 3. Mild retroperitoneal adenopathy, stable. Interpreted by: Irma Ordoñez MD Preliminary Report By: Irma Ordoñez MD Electronically signed By Irma Ordoñez MD Dictated Date: 08/22/2024 12:11:38 PM Prelim Date: 08/22/2024 12:18:42 PM Sign Date: 08/22/2024 12:18:42 PM Ordering Provider: SANTOS DELGADO [facility]02-20-2025 Progress note Date of Service 08/20/2024 This is a split shared visit between myself and Dr. Lee's Chief Complaint Abdominal discomfort Subjective No overnight concerns. patient resting in bed. She does report some improvement in pain since yesterday. Vital signs, Tmax 38.2 in the past 24 hours. She denies any nausea. She is passing flatus. Objective Vitals and Measurements T: 37.4 C (Oral) TMIN: 36.8 C (Oral) TMAX: 38.2 C (Oral) HR: 94 RR: 18 BP: 93/54 SpO2: 94% HT: 160 cm WT: 99.8 kg BMI: 38.98 Intake and Output 7AM Yesterday to 7AM Today Intake and Output (Last 24 hours) Intake Oral Intake 100.00 Administration Information 800.00 Output Stool Count 0.00 Urine Count 7.00 Total Summary Total Intake 900.00 Total Output 0.00 Fluid Balance 900.00 Physical Exam General: She is awake and alert. No acute distress Skin: [place] warm and dry Lungs/chest: Respirations easy. Lungs are clear to auscultation anteriorly Abdomen: Obese, soft. Mild tenderness with palpation to the lower quadrants. No guarding. No massespalpated. Bowel sounds are present Weight Dosing Weight: 99.8 kg (08/19/24) Dosing Weight: 99.8 kg (08/19/24) Medications Medications (11) Active Scheduled: (4) enoxaparin 40 mg/ 0.4mL syringe 40 mg 0.4 mL, Subcutaneous, qDay meropenem 1,000 mg, IV Piggyback, q8h omeprazole [address] capsule 20 mg 1 cap(s), Oral, qDay vancomycin PMX 1,500 mg 300 mL, IV Piggyback, q12h Continuous: (1) NS (0.9% nacl) 1,000 mL 1,000 mL, Intravenous, 100 mL/hr PRN: (6) acetaminophen 325 mg Tablet 650 mg 2 tab(s), Oral, q4h acetaminophen-HYDROcodone 325-5 mg tablet 2 tab(s), Oral, q4h dextrose 50% Solution Disp syringe 50 mL 25 gram(s) 50 mL, IV Push, AsDirected melatonin 3 mg tablet 3 mg 1 tab(s), Oral, qHS melatonin 3 mg tablet 3 mg 1 tab(s), Oral, qHS ondansetron 8 mg tablet 8 mg 1 tab(s), Oral, q8h Lab Results 08/20 08:09 WBC: 6.9 Hgb: 7.8 L Hct: 25.0 L Platelet: 438 Neutrophil %: 64.1 08/20 06:50 Glucose Level: 88 Sodium Level: 137 Potassium Level: 3.3 L BUN: 6.0 L Creatinine Lvl (s): 0.45 L 08/19 08:13 Protime: 19.4 H PT International Ratio: 1.7 08/19 05:39 WBC: 3.2 L Hgb: 8.7 L Hct: 27.7 L Platelet: 451 H 08/19 04:52 Glucose Level: 131 H Sodium Level: 136 Potassium Level: 3.3 L BUN: 8.0 Creatinine Lvl (s): 0.57 EKG No qualifying data available. Assessment/Plan Adenocarcinoma of sigmoid colon This is a 44-year-old female with known metastatic colon cancer to the liver. She presented to the emergency department on 08/19/2024 with complaints of right sided pelvic pain. Initial CT abdomen pelvis was done in the ER showing multiple small pelvic abscesses on CT. She wasadmitted under the care of the medical service and started on IV antibiotic therapy. Interventional radiology consulted who evaluated diagnostic imaging and felt abscesses were small and in poor position of drainage. Over the past 24 hours since admission, patient reports mild improvement in her abdominal pain. Tmax 38.2 yesterday evening. She denies any further nausea. Morning labs CBC, her white blood cell count is 6.9, previously 3.2 known pancytopenia Plan: Clinically improving with conservative management 1. Continue to treat conservatively with IV antibiotics 2. Serial abdominal exams 3. Hourly incentive spirometry 4. Trend CBC 5. Clear liquid diet ordered with advancement as tolerated General Surgery to continue to follow. Discussed with Dr. Rodrigez, addendum to follow Digitally Signed by GAYATRI RIVERA on 08/20/2024 09:17 AM [id number] Infectious disease Consult note Date of Service 08-20-2024 Reason for Consultation Multiple pelvic abscesses Neutropenia with fevers Referring Physician Dr. Campbell History of Present Illness 44-year-old woman with metastatic colon cancer to the liver, who presents to the ER with right-sided pelvic pain and chills at home, she called oncology overnight and was guided to go to the ER as she was pancytopenic. The ER she was found to have multiple small pelvic abscesses on CT, started antibiotics IV fluids and morphine, followed by improvement of her symptoms and heart rate. Her WBC is 3.2 up from 2.1 yesterday, ANC is 0.7. Noted pancytopenia related to recent chemotherapy, the patientstates that she is planned for G-CSF injection after her next dose of chemotherapy.Interventional radiology was consulted to assist with drainage of the pelvic abscesses, their evaluation was these ab scesses were small and in poor position for drainage, recommend continued conservative management, n.p.o., and if worsens consideration of repeat imaging and transfer to . The patient was admitted for further workup and evaluation, ID was consulted for the above Review of Systems Lower abdominal pain otherwise 10 point review of systems negative Physical Exam Vitals and Measurements T: 37.4 C (Oral) TMIN: 36.8 C (Oral) TMAX: 38.2 C (Oral) HR: 94 RR: 18 BP: 93/54 SpO2: 94% HT: 160 cm WT: 99.8 kg BMI: 38.98 Weight Dosing Weight: 99.8 kg (08/19/24) Dosing Weight: 99.8 kg (08/19/24) General Appearance: Awake, alert, and oriented HEENT: Normocephaly. PERRL Neck: Normal without lymphadenopathy Cardiac: Heart regular rhythm Lungs: Clear Abdomen: Soft, non-tender, non-distended Suprapubic tenderness otherwise no rigidity Extremities:Warm without clubbing, cyanosis or edema. Neurological: No deficits Skin: Warm, dry, intact. No rashes Psychiatric: No abnormal behaviors Lab Results 08/20 08:09 WBC: 6.9 Hgb: 7.8 L Hct: 25.0 L Platelet: 438 Neutrophil %: 64.1 08/20 06:50 Glucose Level: 88 Sodium Level: 137 Potassium Level: 3.3 L BUN: 6.0 L Creatinine Lvl (s): 0.45 L 08/19 08:13 Protime: 19.4 H PT International Ratio: 1.7 08/19 05:39 WBC: 3.2 L Hgb: 8.7 L Hct: 27.7 L Platelet: 451 H 08/19 04:52 Glucose Level: 131 H Sodium Level: 136 Potassium Level: 3.3 L BUN: 8.0 Creatinine Lvl (s): 0.57 Imaging Results and Diagnostics CT Abd/Pelvis w/ IV Contrast Only Result Date: August 19, 2024 Verified By: LAUREANO NG MD CLINICAL STATEMENT: IMPRESSION: Multifocal pelvic abscesses. Question fistulous communication with thesigmoid colon to the abscess eccentric to the right adnexa, as detailed above. Evidence for worsening hepatic metastatic disease. More conspicuouspara- aortic adenopathy. Diverticulosis without evidence of a evidence of diverticulitis. Small stable lung nodule in the right lower lobe. Continued attention onfollow-up.I have personally reviewed the images of this examination and agree with theresident's findings andinterpretation. Assessment/Plan Adenocarcinoma of sigmoid colon sepsis due to intra-abdominal infection Multiple pelvic abscesses Neutropenia ANC 700 Adenocarcinoma of the sigmoid colon with metastasis the liver s/p chemotherapy 08/04/2024, Port-A-Cath in place Pancytopenia related to chemotherapy Right-sided pelvic pain 44-year-old woman with metastatic colon cancer to the liver, who presents to the ER with right-sided pelvic pain and chills at home, she called oncology overnight and was guided to go to the ER as she was pancytopenic. The ER she was found to have multiple small pelvic abscesses on CT, started antibiotics IV fluids and morphine, followed by improvement of her symptoms and heart rate. Her WBC is 3.2 up from 2.1 yesterday, ANC is 0.7. Noted pancytopenia related to recent chemotherapy, the patientstates that she is planned for G-CSF injection after her next dose of chemotherapy.Interventional radiology was consulted to assist with drainage of the pelvic abscesses, their evaluation was these ab scesses were small and in poor position for drainage, recommend continued conservative management, n.p.o., and if worsens consideration of repeat imaging and transfer to . The patient was admitted for further workup and evaluation, ID was consulted for the above The patient was last seen by ID service in March 2024 for streptococcal bacteremia, diverticulitis with concern of microperforation and abscess formation, large abscess within the rectal uterine pouch. Urology was consulted at that time in regards to right hydronephrosis with no plans for ureteral stent placement. The patient underwent IR pelvic drainage catheter placement with 115 cc of marian purulent fluid removed. Pelvic drainage cultures revealed Clostridium, Klebsiella and E. coli ,sreptococcus anginosus. At that time, the patient was discharged on oral cefdinir and Flagyl for 21 days and to follow-up with general surgery and IR closely. Blood cultures show no growth to date Over the past 24 hours, pancytopenia has improved. The patient continues to be febrile and blood pressure has been soft this morning Flu, COVID, RSV PCR is negative MRSA PCR negative General surgery is following, conservative management Undergoing chemotherapy, last treatment was 08/04/2024 Currently receiving meropenem and vancomycin, will add Mycamine given the location and potential fungal infection in the pelvic area I recommend to continue current wide spectrum therapy for the next 2 to [address] scan on Saturday to evaluate for any interval changes and patient that we will proceed with further plans either surgical intervention or drainage or transfer to a tertiary care facility, this was discussed with patient who is in agreement with the plan of care Currently she is hemodynamically stable and awake and alert with mild lower abdominal pain and tenderness Until then please call for questions or concerns Thank you for allowing us to see this patient in consultation I was present for Carmen Lewis LPN , and personally directed, all components of the patient's complete evaluation and management documented by the scribe today. I have personally examined the patient and reviewed all diagnostic data. I have reviewed all of this documentation by the scribe. It documents the history obtained, examination performed, diagnostic testing results compiled by him/her,and discharge information. We provided service elements including disease transmission risk assessment and mitigation, public health investigation, analysis and testing, and complex antimicrobial therapy counseling and treatment. We discussed ways of infection control and prevention. Risks and benefits of complex antimicrobial therapy was discussed at length with patient and staff. Plan of care has been discussed with patient at bedside, we discussed potential side effects of antimicrobial therapy/antifungal/antiviral therapy. Problem List/Past Medical History Ongoing Bilateral hip pain Heartburn History of DVT of lower extremity Hydronephrosis, right Procedure/Surgical History MRI: 08/01/24 insertion of left chest port using fluoroscopic and ultrasound guidance: 07/23/24 Extraction of wisdom tooth Colonoscopy Biopsy of liver Medications Inpatient Dextrose 50% IV Push, 25 gram(s)= 50 mL, IV Push, AsDirected, PRN enoxaparin, 40 mg= 0.4 mL, Subcutaneous, qDay melatonin, 3 mg= 1 tab(s), Oral, qHS, PRN melatonin, 3 mg= 1 tab(s), Oral, qHS, PRN meropenem [place] 325- 5 mg oral tablet, 2 tab(s), Oral, q4h, PRN Normal Saline 1,000 mL, 1000 mL, Intravenous omeprazole, 20 mg= 1 cap(s), Oral, qDay ondansetron, 8 mg= 1 tab(s), Oral, q8h, PRN Tylenol, 650 mg= 2 tab(s), Oral, q4h, PRN vancomycin, 1500 mg= 300 mL, IV Piggyback, q12h Home omeprazole 20 mg oral delayed release capsule, 20 mg= 1 cap(s), Oral, qDay Zofran 8 mg oral tablet, 8 mg= 1 tab(s), Oral, q8h, PRN, 1 refills, Has Not Started Allergies NKA Social History Alcohol Use: DENIES., 2024 Home/Environment Living situation: Home/Independent. Domestic Concerns: Denies., 2024 Nutrition/Health Type of diet: Regular. Appetite Fair. Eating Difficulties None., 08/04/2024 Substance Abuse Use: DENIES., 2024 Tobacco Nicotine Use: Never (less than 100 in lifetime), denies., 03/25/2024 Family History DVT - Deep vein thrombosis: Father. Diabetes mellitus: Father and Grandparent. High blood pressure: Mother and Grandparent. Health Status Family Member(s) Immunizations measles/mumps/rubella virus vaccine: 0.5 unknown unit (07/06/24) Digitally Signed by Carmen Lewis Scribe on 08/20/2024 11:24 AM Digitally Signed by SANTOS CH BA, MD on 08/20/2024 05:40 PM [id number] Progress note Date of Service 08/20/2024 This is a split shared visit between myself and Dr. Lee's Chief Complaint Abdominal discomfort Subjective No overnight concerns. patient resting in bed. She does report some improvement in pain since yesterday. Vital signs, Tmax 38.2 in the past 24 hours. She denies any nausea. She is passing flatus. Objective Vitals and Measurements T: 37.4 C (Oral) TMIN: 36.8 C (Oral) TMAX: 38.2 C (Oral) HR: 94 RR: 18 BP: 93/54 SpO2: 94% HT: 160cm WT: 99.8 kg BMI: 38.98 Intake and Output 7AM Yesterday to 7AM Today Intake and Output (Last 24 hours) Intake Oral Intake 100.00 Administration Information 800.00 Output Stool Count 0.00 Urine Count 7.00 Total Summary Total Intake 900.00 Total Output 0.00 Fluid Balance 900.00 Physical Exam General: She is awake and alert. No acute distress Skin: [place] warm and dry Lungs/chest: Respirations easy. Lungs are clear to auscultation anteriorly Abdomen: Obese, soft. Mild tenderness with palpation to the lower quadrants. No guarding. No massespalpated. Bowel sounds are present Weight Dosing Weight: 99.8 kg (08/19/24) Dosing Weight: 99.8 kg (08/19/24) Medications Medications (11) Active Scheduled: (4) enoxaparin 40 mg/ 0.4mL syringe 40 mg 0.4 mL, Subcutaneous, qDay meropenem 1,000 mg, IV Piggyback, q8h omeprazole [address] capsule 20 mg 1 cap(s), Oral, qDay vancomycin PMX 1,500 mg 300 mL, IV Piggyback, q12h Continuous: (1) NS (0.9% nacl) 1,000 mL 1,000 mL, Intravenous, 100 mL/hr PRN: (6) acetaminophen 325 mg Tablet 650 mg 2 tab(s), Oral, q4h acetaminophen-HYDROcodone 325-5 mg tablet 2 tab(s), Oral, q4h dextrose 50% Solution Disp syringe 50 mL 25 gram(s) 50 mL, IV Push, AsDirected melatonin 3 mg tablet 3 mg 1 tab(s), Oral, qHS melatonin 3 mg tablet 3 mg 1 tab(s), Oral, qHS ondansetron 8 mg tablet 8 mg 1 tab(s), Oral, q8h Lab Results 08/20 08:09 WBC: 6.9 Hgb: 7.8 L Hct: 25.0 L Platelet: 438 Neutrophil %: 64.1 08/20 06:50 Glucose Level: 88 Sodium Level: 137 Potassium Level: 3.3 L BUN: 6.0 L Creatinine Lvl (s): 0.45 L 08/19 08:13 Protime: 19.4 H PT International Ratio: 1.7 08/19 05:39 WBC: 3.2 L Hgb: 8.7 L Hct: 27.7 L Platelet: 451 H 08/19 04:52 Glucose Level: 131 H Sodium Level: 136 Potassium Level: 3.3 L BUN: 8.0 Creatinine Lvl (s): 0.57 EKG No qualifying data available. Assessment/Plan Adenocarcinoma of sigmoid colon This is a 44-year-old female with known metastatic colon cancer to the liver. She presented to the emergency department on 08/19/2024 with complaints of right sided pelvic pain. Initial CT abdomen pelvis was done in the ER showing multiple small pelvic abscesses on CT. She wasadmitted under the care of the medical service and started on IV antibiotic therapy. Interventional radiology consulted who evaluated diagnostic imaging and felt abscesses were small and in poor position of drainage. Over the past 24 hours since admission, patient reports mild improvement in her abdominal pain. Tmax 38.2 yesterday evening. She denies any further nausea. Morning labs CBC, her white blood cell count is 6.9, previously 3.2 known pancytopenia Plan: Clinically improving with conservative management 1. Continue to treat conservatively with IV antibiotics 2. Serial abdominal exams 3. Hourly incentive spirometry 4. Trend CBC 5. Clear liquid diet ordered with advancement as tolerated General Surgery to continue to follow. Discussed with Dr. Rodrigez, addendum to follow Digitally Signed by GAYATRI RIVERA on 08/20/2024 09:17 AM [id number] Oncology Consult note Date of Service 08/19/2024 Reason for Consultation Neutropenic fever History of Present Illness This is a 44-year-old female with a history of metastatic adenocarcinoma of the sigmoid colon, diverticular disease, and a lower extremity DVT. She presented to the emergency room after being woken with right sided abdominal pain, fever, diaphoresis, nausea and vomiting. The patient reports her symptoms seem to get worse therefore she came to the emergency room for further evaluation. The patienthas had intra-abdominal abscesses in March 2024 and states that she feels the same way she did at that time. On exam this afternoon the patient states that overall she is feeling better. She reports that lastevening before bed she started developing some hip pain she took a couple Tylenol and went to sleep. She woke up a few hours later feeling very nauseous and like she had to vomit. She reports at thattime she had some right-sided abdominal pain also and when she took her temperature she noted she had a fever. She states that her dose of Zofran was around 5 AM this morning and since then she has not had any further nausea or vomiting. The abdominal pain has subsided she is still having episodes of right sided hip pain. The patient denies shortness of breath and chest pain. Oncology History H/O complicated Diverticulitis in March 2024 , Had C scope in May which showed circumferential mass in sigmoid colon . CTCAP was done that showed ? met in lover . Bx confirmed Adenocarcinomaof colon . Seen Gen surg DR. Rodrigez prior for Diverticulitis follow up and referred back to him byDr. Eastman after C scope findings Pathology Sigmoid colon - moderately differentiated adenocarcinoma Mismatch Repair IMMUNOHISTOCHEMISTRY (IHC) TESTING FOR MISMATCH REPAIR (MMR) PROTEINS: MLH1 RESULT: Intact nuclear expression MSH2 RESULT: Intact nuclear expression MSH6 RESULT: Intact nuclear expression PMS2 RESULT: Intact nuclear expression IHC INTERPRETATION: No loss of nuclear expression of MMR proteins: low probability of MSI-H 06/10/24 CT A/P CONCLUSION: 1. Enlarging right and left hepatic foci of diminished attenuation. 2. Thickened mucosa of the sigmoid colon is present. There is narrowing of the lumen. There is suggestion of in stool fistula at the site of previous mass interposed between the uterus and colon. 3. 19 millimeter subcutaneous nodule at the left buttock. 4. Bilateral upper lobe nodular foci. 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 T2 hyperintense rt upper lobe of lung nodule andindeterminate T2 hyperintense lesion at T7 . CURRENT THERAPY FOLFOX - C1 D1 08/04/24 Review of Systems Review of systems in negative unless noted in the above HPI. Physical Exam Vitals and Measurements T: 37.6 C (Oral) TMIN: 37.2 C (Oral) TMAX: 38.3 C (Oral) HR: 95 (Monitored) RR: 16 BP: 122/65 SpO2:94% WT: 99.8 kg General: No apparent distress. Neurological: Alert and oriented x3. Grossly intact without focal deficit. Cardiovascular: Regular rate and rhythm, S1 and S2 noted. No extra-audible heart tones. Respiratory: Bilaterally clear breath sounds with no crepitation or wheeze. Abdominal: Soft, nontender and nondistended. No guarding. Bowel sounds present. Extremities: No edema. Adequate peripheral circulation. Skin: warm and dry Psychological: appropriate mood and affect Weight Dosing Weight: 99.8 kg (08/19/24) Lab Results 08/19 08:13 Protime: 19.4 H PT International Ratio: 1.7 08/19 05:39 WBC: 3.2 L Hgb: 8.7 L Hct: 27.7 L Platelet: 451 H 08/19 04:52 Glucose Level: 131 H Sodium Level: 136 Potassium Level: 3.3 L BUN: 8.0 Creatinine Lvl (s): 0.57 Imaging Results and Diagnostics (08/19/2024 06:[address] Abd/Pelvis w/ IV Contrast Only) IMPRESSION: Multifocal pelvic abscesses. Question fistulous communication with the sigmoid colon to the abscess eccentric to the right adnexa, as detailed above. Evidence for worsening hepatic metastatic disease. More conspicuous para-aortic adenopathy. Diverticulosis without evidence of a evidence of diverticulitis. Small stable lung nodule in the right lower lobe. Continued attention on follow-up. Assessment/Plan Adenocarcinoma of sigmoid colon This is a 44-year-old female with a history of metastatic adenocarcinoma of the sigmoid colon, diverticular disease, and a lower extremity DVT. She presented to the emergency room after being woken with right sided abdominal pain, fever, diaphoresis, nausea and vomiting. The patient reports her symptoms seem to get worse therefore she came to the emergency room for further evaluation. The patienthas had intra-abdominal abscesses in the past and states that she feels the same during this episode as well. The patiently is currently undergoing chemotherapy, FOLFOX with Dr. Lundberg. Cycle 1 was 08/04/2024 and the patient states that she was due for cycle 2 on 08/18/2024 however the dose was held for low blood counts. CBC 08/19/24 05:39 08/18/24 08:00 07/20/24 09:15 Hct 27.7 % L 29.6 % L 34.1 % Hgb 8.7 G/dL L 9.0 G/dL L 10.7 G/dL L MCH 22.1 pg L 22.3 pg L 23.6 pg L MCHC 31.2 G/dL L 30.5 G/dL L 31.3 G/dL L MCV 70.9 fL L 72.9 fL L 75.6 fL L MPV 7.9 fL 8.4 fL 9.0 fL Platelet 451 10^3/mcL H 404 10^3/mcL 319 10^3/mcL RBC 3.92 10^6/mcL L 4.06 10^6/mcL L 4.51 10^6/mcL RDW 16.7 % H 16.8 % H 15.2 % WBC 3.2 10^3/mcL L 2.1 10^3/mcL L 4.6 10^3/mcL 08/19/2024 06:[address] Abd/Pelvis w/ IV Contrast Only IMPRESSION: Multifocal pelvic abscesses. Question fistulous communication with the sigmoid colon to the abscess eccentric to the right adnexa, as detailed above. Evidence for worsening hepatic metastatic disease. More conspicuous para-aortic adenopathy. There are a few pelvic abscesses. -1st abscess eccentric to the right adnexa measures approximately 3.3 x 3.2 x 2.9 cm -2nd abscess is more superior and subtends the internal iliac vasculature on the left, measuring 2.4 x 1.8 x 1.9 cm -There is extensive regional adenopathy in this area. Oncology plan: We will follow along with the patient during her admission. The patient has an appointment with next 08/24/2024. At that time it can be discussed what the next best course of treatment will be for the patient. The assessment and plan were discussed with Dr. Antonio. Please see addendum for further hematology/oncology input and plan of care. Problem List/Past Medical History Ongoing Bilateral hip pain Heartburn History of DVT of lower extremity Hydronephrosis, right Procedure/Surgical History MRI: 08/01/24 insertion of left chest port using fluoroscopic and ultrasound guidance: 07/23/24 Extraction of wisdom tooth Colonoscopy Biopsy of liver Medications Dextrose 50% IV Push, 25 gram(s)= 50 mL, IV Push, AsDirected, PRN enoxaparin, 40 mg= 0.4 mL, Subcutaneous, qDay melatonin, 3 mg= 1 tab(s), Oral, qHS, PRN melatonin, 3 mg= 1 tab(s), Oral, qHS, PRN meropenem Normal Saline 1,000 mL, 1000 mL, Intravenous omeprazole, 20 mg= 1 cap(s), Oral, qDay omeprazole 20 mg oral delayed release capsule, 20 mg= 1 cap(s), Oral, qDay ondansetron, 8 mg= 1 tab(s), Oral, q8h, PRN potassium chloride, 40 mEq= 2 tab(s), Oral, q3h Tylenol, 650 mg= 2 tab(s), Oral, q4h, PRN vancomycin, 1500 mg= 300 mL, IV Piggyback, q12h Zofran 8 mg oral tablet, 8 mg= 1 tab(s), Oral, q8h, PRN, 1 refills, Has Not Started Allergies NKA Family History DVT - Deep vein thrombosis: Father. Diabetes mellitus: Father and Grandparent. High blood pressure: Mother and Grandparent. Health Status Family Member(s) Social History Alcohol Use: DENIES., 2024 Home/Environment Living situation: Home/Independent. Domestic Concerns: Denies., 2024 Nutrition/Health Type of diet: Regular. Appetite Fair. Eating Difficulties None., 08/04/2024 Substance Abuse Use: DENIES., 2024 Tobacco Nicotine Use: Never (less than 100 in lifetime), denies., 03/25/2024 Digitally Signed by PLACIDO RUIZ on 08/19/2024 02:56 PM [id number] History and physical note Date of Service 08/19/2024 Chief Complaint from home w fam, w fever and vomiting. Hx Review of Systems Apart from mentioned in HPI, pertinent review of systems is negative. Physical Exam Vitals and Measurements T: 37.6 C (Oral) TMIN: 37.2 C (Oral) TMAX: 38.3 C (Oral) HR: 95 (Monitored) RR: 16 BP: 122/65 SpO2:94% WT: 99.8 kg Weight Dosing Weight: 99.8 kg (08/19/24) General Appearance: Comfortable, not in acute distress, on room air Cardiac: S1, S2, no murmurs, regular rhythm, normal rate, no lower extremity edema, no crackles, noJVP distention, warm extremities. Lungs: No wheezes, normal chest expansion. Abdomen: No tenderness, no distention, normal bowel sounds. Musculoskeletal: No signs of acute synovitis. Neurological: Alert and oriented x3, no focal neurological deficits grossly. Psychiatric: Appropriate, normal mood. Lab Results 08/19 08:13 Protime: 19.4 H PT International Ratio: 1.7 08/19 05:39 WBC: 3.2 L Hgb: 8.7 L Hct: 27.7 L Platelet: 451 H 08/19 04:52 Glucose Level: 131 H Sodium Level: 136 Potassium Level: 3.3 L BUN: 8.0 Creatinine Lvl (s): 0.57 EKG EC08/19/24: SINUS TACHYCARDIA BORDERLINE LEFT AXIS DEVIATION BORDERLINE T ABNORMALITIES, INFERIOR LEADS Electronic Signature: REGGIE LOVING MD 08/19/2024 08:50:00 Assessment/Plan Orders: acetaminophen(Tylenol), 650 mg= 2 tab(s), Oral, q4h, PRN enoxaparin, 40 mg= 0.4 mL, Subcutaneous, qDay glucose(Dextrose 50% IV Push), 25 gram(s)= 50 mL, IV Push, AsDirected, PRN melatonin, 3 mg= 1 tab(s), Oral, qHS, PRN melatonin, 3 mg= 1 tab(s), Oral, qHS, PRN meropenem, Start: 08/20/24 0:00:00 EST, Dose = 500 mg, IV Piggyback, q12h, Rate: 16.67 mL/hr, Infuse over: 3 hour(s), 0, 08/19/24 12:14:00 EST omeprazole, 20 mg= 1 cap(s), Oral, qDay potassium chloride, 40 mEq= 2 tab(s), Oral, q3h Sodium Chloride 0.9% intravenous solution 1,000 mL(Normal Saline 1,000 mL), 1000 mL, Intravenous vancomycin, 1500 mg= 300 mL, IV Piggyback, q12h Basic Metabolic Panel(BMP), 08/20/24 5:00:00 EST, Next AM Draw (one day only), Blood, q24h, for 10 day(s), Preferred Lab: [facility], Stop date 08/29/24 5:00:00 EST Blood Glucose Call Parameter, 08/19/24 12:17:00 EST, If patient is NPO for x-ray or surgery and hypoglycemic, call physician for further orders, Constant order Blood Glucose Call Parameter, 08/19/24 12:17:00 EST, call provider if patient's blood glucose is <70mg/dL, Constant order Blood Glucose Monitoring Bedside PRN, 08/19/24 12:17:00 EST, PRN Order, For signs/symptoms of hypoglycemia Blood Urea Nitrogen, 08/20/24 5:00:00 EST, Next AM Draw (one day only), Blood, Once, Preferred Lab:[facility], Stop date 08/20/24 5:00:00 EST Communication Order (continuous), 08/19/24 12:17:00 EST, Stat EKG will be obtained in the setting of new, ongoing or worsening chest discomfort/acute coronary syndrome symptoms in all nursing units and/or rhythm change in all monitored units., Constant order Complete Blood Count(CBC), 08/20/24 5:00:00 EST, Next AM Draw (one day only), Blood, Once, Preferred Lab: [facility], Stop date 08/20/24 5:00:00 EST Consult to Physician, 08/19/24 12:41:00 EST, ROSEANN LUNDBERG MD, Routine, NF Consult to Physician, 08/19/24 12:18:00 EST, SANTOS CH BA, MD, Routine, NF Creatinine, 08/20/24 5:00:00 EST, Next AM Draw (one day only), Blood, Once, Preferred Lab: [facility], Stop date 08/20/24 5:00:00 EST Intake and Output, 08/19/24 12:17:00 EST, q8h (2p, 10p, 6a) IV Catheter Insertion/Care(Peripheral IV Insertion/Care), 08/19/24 12:17:00 EST, IV Care: q4h, Rotate when clinically indicated & q7day drsg change Magnesium Level, 08/20/24 5:00:00 EST, Next AM Draw (one day only), Blood, q24h, for 10 day(s), Preferred Lab: [facility], Stop date 08/29/24 5:00:00 EST NPO, 08/19/24 12:17:00 EST, Constant Order, Give PO Meds Phosphorus Level, 08/20/24 5:00:00 EST, Next AM Draw (one day only), Blood, q24h, for 10 day(s), Preferred Lab: [facility], Stop date 08/29/24 5:00:00 EST Prn Adapter, 08/19/24 12:17:00 EST, Constant Order Pulse Oximeter - Intermittent, 08/19/24 12:17:00 EST, q8hRT ROUTINE EMERGENCY TREATMENT - Full Code, 08/19/24 12:14:00 EST, Constant order Transfer/Change in Level of Care, 08/19/24 12:54:00 EST, Level of Care: Regular floor, Medication Review: I have assessed all medications Up to Chair, 08/19/24 12:17:00 EST, TID, with meals. With Assistance Vancomycin Pharmacist Monitoring, 08/20/24 6:00:00 EST, [id number], entered secondary to Vancomycin order Vital Signs, 08/19/24 12:17:00 EST, q8h Schedule sepsis due to intra-abdominal infection Multiple pelvic abscesses amenable to IR drainage Neutropenia ANC 700 Adenocarcinoma of the sigmoid colon with metastasis the liver s/p chemotherapy 08/04/2024, Port-A-Cath in place Pancytopenia related to chemotherapy Right-sided pelvic pain in the setting of #2 Obesity PCP: Abdulkadir Rosales PA-C, Onc: Roseann Lundberg MD. 44-year-old woman with metastatic colon cancer to the liver, who presents to the ER with right-sided pelvic pain and chills at home, she called oncology overnight and was guided to go to the ER as she was pancytopenic. The ER she was found to have multiple small pelvic abscesses on CT, started antibiotics IV fluids and morphine, followed by improvement of her symptoms and heart rate. Her WBC is 3.2 up from 2.1 yesterday, ANC is 0.7. Noted pancytopenia related to recent chemotherapy, the patientstates that she is planned for G-CSF injection after her next dose of chemotherapy. Interventional radiology was consulted to assist with drainage of the pelvic abscesses, their evaluation was these abscesses were small and in poor position for drainage, recommend continued conservative management, n.p.o., and if worsens consideration of repeat imaging and transfer to . So far the patient has been responding very well to treatment and we are hopeful that her neutrophil count will continue to improve. Plan: Admit to general medical floor Fluid resuscitation Continue meropenem and Comycin Continue daily CBC, de-escalate antibiotics pending improvement of neutrophil count Appreciate ID, IR, and heme-onc assistance Symptomatic management for pain and nausea Anticipate 48 more hours of hospital stay, the patient is at risk of deterioration Vanessa Campbell MD [facility] Hospitalist Messenger patrizia or Pager [phone] Problem List/Past Medical History Ongoing Bilateral hip pain Heartburn History of DVT of lower extremity Hydronephrosis, right Procedure/Surgical History MRI: 08/01/24 insertion of left chest port using fluoroscopic and ultrasound guidance: 07/23/24 Extraction of wisdom tooth Colonoscopy Biopsy of liver Medications Home Medications (2) Active omeprazole 20 mg oral delayed release capsule 20 mg = 1 cap(s), Oral, qDay Zofran 8 mg oral tablet 8 mg = 1 tab(s), PRN, Oral, q8h Allergies NKA Social History Alcohol Use: DENIES., 2024 Home/Environment Living situation: Home/Independent. Domestic Concerns: Denies., 2024 Nutrition/Health Type of diet: Regular. Appetite Fair. Eating Difficulties None., 08/04/2024 Substance Abuse Use: DENIES., 2024 Tobacco Nicotine Use: Never (less than 100 in lifetime), denies., 03/25/2024 Family History DVT - Deep vein thrombosis: Father. Diabetes mellitus: Father and Grandparent. High blood pressure: Mother and Grandparent. Health Status Family Member(s) Immunizations measles/mumps/rubella virus vaccine: 0.5 unknown unit (07/06/24) Code Status Code Status - Ordered -- 08/19/24 9:06:00 EST, Full Code, Constant Order Digitally Signed by VANESSA CAMPBELL MD on 08/19/2024 02:24 PM [id number] + Plan noteExtracted from: Title:History and Physical Author:NOEMY CAMPBELL MD Date:08/19/24 Orders: acetaminophen(Tylenol), 650 mg= 2 tab(s), Oral, q4h, PRN enoxaparin, 40 mg= 0.4 mL, Subcutaneous, qDay glucose(Dextrose 50% IV Push), 25 gram(s)= 50 mL, IV Push, AsDirected, PRN melatonin, 3 mg= 1 tab(s), Oral, qHS, PRN melatonin, 3 mg= 1 tab(s), Oral, qHS, PRN meropenem, Start: 08/20/24 0:00:00 EST, Dose = 500 mg, IV Piggyback, q12h, Rate: 16.67 mL/hr, Infuse over: 3 hour(s), 0, 08/19/24 12:14:00 EST omeprazole, 20 mg= 1 cap(s), Oral, qDay potassium chloride, 40 mEq= 2 tab(s), Oral, q3h Sodium Chloride 0.9% intravenous solution 1,000 mL(Normal Saline 1,000 mL), 1000 mL, Intravenous vancomycin, 1500 mg= 300 mL, IV Piggyback, q12h Basic Metabolic Panel(BMP), 08/20/24 5:00:00 EST, Next AM Draw (one day only), Blood, q24h, for 10 day(s), Preferred Lab: [facility], Stop date 08/29/24 5:00:00 EST Blood Glucose Call Parameter, 08/19/24 12:17:00 EST, If patient is NPO for x-ray or surgery and hypoglycemic, call physician for further orders, Constant order Blood Glucose Call Parameter, 08/19/24 12:17:00 EST, call provider if patient's blood glucose is <70mg/dL, Constant order Blood Glucose Monitoring Bedside PRN, 08/19/24 12:17:00 EST, PRN Order, For signs/symptoms of hypoglycemia Blood Urea Nitrogen, 08/20/24 5:00:00 EST, Next AM Draw (one day only), Blood, Once, Preferred Lab: [facility], Stop date 08/20/24 5:00:00 EST Communication Order (continuous), 08/19/24 12:17:00 EST, Stat EKG will be obtained in the setting of new, ongoing or worsening chest discomfort/acute coronary syndrome symptoms in all nursing units and/or rhythm change in all monitored units., Constant order Complete Blood Count(CBC), 08/20/24 5:00:00 EST, Next AM Draw (one day only), Blood, Once, Preferred Lab: [facility], Stop date 08/20/24 5:00:00 EST Consult to Physician, 08/19/24 12:41:00 EST, ROSEANN LUNDBERG MD, Routine, NF Consult to Physician, 08/19/24 12:18:00 EST, SANTOS CH BA, MD, Routine, NF Creatinine, 08/20/24 5:00:00 EST, Next AM Draw (one day only), Blood, Once, Preferred Lab: [facility], Stop date 08/20/24 5:00:00 EST Intake and Output, 08/19/24 12:17:00 EST, q8h (2p, 10p, 6a) IV Catheter Insertion/Care(Peripheral IV Insertion/Care), 08/19/24 12:17:00 EST, IV Care: q4h, Rotate when clinically indicated & q7day drsg change Magnesium Level, 08/20/24 5:00:00 EST, Next AM Draw (one day only), Blood, q24h, for 10 day(s), Preferred Lab: [facility], Stop date 08/29/24 5:00:00 EST NPO, 08/19/24 12:17:00 EST, Constant Order, Give PO Meds Phosphorus Level, 08/20/24 5:00:00 EST, Next AM Draw (one day only), Blood, q24h, for 10 day(s), Preferred Lab: [facility], Stop date 08/29/24 5:00:00 EST Prn Adapter, 08/19/24 12:17:00 EST, Constant Order Pulse Oximeter - Intermittent, 08/19/24 12:17:00 EST, q8hRT ROUTINE EMERGENCY TREATMENT - Full Code, 08/19/24 12:14:00 EST, Constant order Transfer/Change in Level of Care, 08/19/24 12:54:00 EST, Level of Care: Regular floor, Medication Review: I have assessed all medications Up to Chair, 08/19/24 12:17:00 EST, TID, with meals. With Assistance Vancomycin Pharmacist Monitoring, 08/20/24 6:00:00 EST, [id number], entered secondary to Vancomycin order Vital Signs, 08/19/24 12:17:00 EST, q8h Schedule sepsis due to intra-abdominal infection Multiple pelvic abscesses amenable to IR drainage Neutropenia ANC 700 Adenocarcinoma of the sigmoid colon with metastasis the liver s/p chemotherapy 08/04/2024, Port-A-Cath in place Pancytopenia related to chemotherapy Right-sided pelvic pain in the setting of #2 Obesity PCP: Abdulkadir Rosales PA-C, Onc: Roseann Lundberg MD. 44-year-old woman with metastatic colon cancer to the liver, who presents to the ER with right-sided pelvic pain and chills at home, she called oncology overnight and was guided to go to the ER as she was pancytopenic. The ER she was found to have multiple small pelvic abscesses on CT, started antibiotics IV fluids and morphine, followed by improvement of her symptoms and heart rate. Her WBC is 3.2 up from 2.1 yesterday, ANC is 0.7. Noted pancytopenia related to recent chemotherapy, the patient states that she is planned for G-CSF injection after her next dose of chemotherapy. Interventional radiology was consulted to assist with drainage of the pelvic abscesses, their evaluation was these abscesses were small and in poor position for drainage, recommend continued conservative management, n.p.o., and if worsens consideration of repeat imaging and transfer to . So far the patient has been responding very well to treatment and we are hopeful that her neutrophil count will continue to improve. Plan: Admit to general medical floor Fluid resuscitation Continue meropenem and Comycin Continue daily CBC, de-escalate antibiotics pending improvement of neutrophil count Appreciate ID, IR, and heme-onc assistance Symptomatic management for pain and nausea Anticipate 48 more hours of hospital stay, the patient is at risk of deterioration Vanessa Campbell MD [facility] Hospitalist Messenger patrizia or Pager [phone] Future Scheduled Tests Laboratory* Carcinoembryonic Antigen 09/01/24 * Complete Blood Count 08/25/24 * Complete Blood Count 08/13/24 * Complete Blood Count 09/01/24 * Complete Metabolic Panel 08/25/24 * Complete Metabolic Panel 09/01/24 * [facility] [place]Non-Blood Specimens) 07/30/24 Radiology* IR Drainage Cath Injection for Eval 09/07/24 * CT Thorax w/ Contrast 06/17/24 * CT Abd/Pelvis w/ IV Contrast Only 09/07/24 * XR Hip 3-4 Views Bilateral 08/13/24 * CT Abdomen and Pelvis w/ contrast 06/17/24 * CT Abdomen and Pelvis w/ contrast 03/27/24 * US Renal 04/13/24 [facility] 02-19-2025 Oncology Consult note Date of Service 08/19/2024 Reason for Consultation Neutropenic fever History of Present Illness This is a 44-year-old female with a history of metastatic adenocarcinoma of the sigmoid colon, diverticular disease, and a lower extremity DVT. She presented to the emergency room after being woken with right sided abdominal pain, fever, diaphoresis, nausea and vomiting. The patient reports her symptoms seem to get worse therefore she came to the emergency room for further evaluation. The patienthas had intra-abdominal abscesses in March 2024 and states that she feels the same way she did at that time. On exam this afternoon the patient states that overall she is feeling better. She reports that lastevening before bed she started developing some hip pain she took a couple Tylenol and went to sleep. She woke up a few hours later feeling very nauseous and like she had to vomit. She reports at thattime she had some right-sided abdominal pain also and when she took her temperature she noted she had a fever. She states that her dose of Zofran was around 5 AM this morning and since then she has not had any further nausea or vomiting. The abdominal pain has subsided she is still having episodes of right sided hip pain. The patient denies shortness of breath and chest pain. Oncology History H/O complicated Diverticulitis in March 2024 , Had C scope in May which showed circumferential mass in sigmoid colon . CTCAP was done that showed ? met in [place] . Bx confirmed Adenocarcinomaof colon . Seen Gen surg DR. Rodrigez prior for Diverticulitis follow up and referred back to him byDr. Eastman after C scope findings Pathology Sigmoid colon - moderately differentiated adenocarcinoma Mismatch Repair IMMUNOHISTOCHEMISTRY (IHC) TESTING FOR MISMATCH REPAIR (MMR) PROTEINS: MLH1 RESULT: Intact nuclear expression MSH2 RESULT: Intact nuclear expression MSH6 RESULT: Intact nuclear expression PMS2 RESULT: Intact nuclear expression IHC INTERPRETATION: No loss of nuclear expression of MMR proteins: low probability of MSI-H 06/10/24 CT A/P CONCLUSION: 1. Enlarging right and left hepatic foci of diminished attenuation. 2. Thickened mucosa of the sigmoid colon is present. There is narrowing of the lumen. There is suggestion of in stool fistula at the site of previous mass interposed between the uterus and colon. 3. 19 millimeter subcutaneous nodule at the left buttock. 4. Bilateral upper lobe nodular foci. 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 T2 hyperintense rt upper lobe of lung nodule andindeterminate T2 hyperintense lesion at T7 . CURRENT THERAPY FOLFOX - C1 D1 08/04/24 Review of Systems Review of systems in negative unless noted in the above HPI. Physical Exam Vitals and Measurements T: 37.6 C (Oral) TMIN: 37.2 C (Oral) TMAX: 38.3 C (Oral) HR: 95 (Monitored) RR: 16 BP: 122/65 SpO2:94% WT: 99.8 kg General: No apparent distress. Neurological: Alert and oriented x3. Grossly intact without focal deficit. Cardiovascular: Regular rate and rhythm, S1 and S2 noted. No extra-audible heart tones. Respiratory: Bilaterally clear breath sounds with no crepitation or wheeze. Abdominal: Soft, nontender and nondistended. No guarding. Bowel sounds present. Extremities: No edema. Adequate peripheral circulation. Skin: warm and dry Psychological: appropriate mood and affect Weight Dosing Weight: 99.8 kg (08/19/24) Lab Results 08/19 08:13 Protime: 19.4 H PT International Ratio: 1.7 08/19 05:39 WBC: 3.2 L Hgb: 8.7 L Hct: 27.7 L Platelet: 451 H 08/19 04:52 Glucose Level: 131 H Sodium Level: 136 Potassium Level: 3.3 L BUN: 8.0 Creatinine Lvl (s): 0.57 Imaging Results and Diagnostics (08/19/2024 06:[address] Abd/Pelvis w/ IV Contrast Only) IMPRESSION: Multifocal pelvic abscesses. Question fistulous communication with the sigmoid colon to the abscess eccentric to the right adnexa, as detailed above. Evidence for worsening hepatic metastatic disease. More conspicuous para-aortic adenopathy. Diverticulosis without evidence of a evidence of diverticulitis. Small stable lung nodule in the right lower lobe. Continued attention on follow-up. Assessment/Plan Adenocarcinoma of sigmoid colon This is a 44-year-old female with a history of metastatic adenocarcinoma of the sigmoid colon, diverticular disease, and a lower extremity DVT. She presented to the emergency room after being woken with right sided abdominal pain, fever, diaphoresis, nausea and vomiting. The patient reports her symptoms seem to get worse therefore she came to the emergency room for further evaluation. The patienthas had intra-abdominal abscesses in the past and states that she feels the same during this episode as well. The patiently is currently undergoing chemotherapy, FOLFOX with Dr. Lundberg. Cycle 1 was 08/04/2024 and the patient states that she was due for cycle 2 on 08/18/2024 however the dose was held for low blood counts. CBC 08/19/24 05:39 08/18/24 08:00 07/20/24 09:15 Hct 27.7 % L 29.6 % L 34.1 % Hgb 8.7 G/dL L 9.0 G/dL L 10.7 G/dL L MCH 22.1 pg L 22.3 pg L 23.6 pg L MCHC 31.2 G/dL L 30.5 G/dL L 31.3 G/dL L MCV 70.9 fL L 72.9 fL L 75.6 fL L MPV 7.9 fL 8.4 fL 9.0 fL Platelet 451 10^3/mcL H 404 10^3/mcL 319 10^3/mcL RBC 3.92 10^6/mcL L 4.06 10^6/mcL L 4.51 10^6/mcL RDW 16.7 % H 16.8 % H 15.2 % WBC 3.2 10^3/mcL L 2.1 10^3/mcL L 4.6 10^3/mcL 08/19/2024 06:[address] Abd/Pelvis w/ IV Contrast Only IMPRESSION: Multifocal pelvic abscesses. Question fistulous communication with the sigmoid colon to the abscess eccentric to the right adnexa, as detailed above. Evidence for worsening hepatic metastatic disease. More conspicuous para-aortic adenopathy. There are a few pelvic abscesses. -1st abscess eccentric to the right adnexa measures approximately 3.3 x 3.2 x 2.9 cm -2nd abscess is more superior and subtends the internal iliac vasculature on the left, measuring 2.4 x 1.8 x 1.9 cm -There is extensive regional adenopathy in this area. Oncology plan: We will follow along with the patient during her admission. The patient has an appointment with next 08/24/2024. At that time it can be discussed what the next best course of treatment will be for the patient. The assessment and plan were discussed with Dr. Antonio. Please see addendum for further hematology/oncology input and plan of care. Problem List/Past Medical History Ongoing Bilateral hip pain Heartburn History of DVT of lower extremity Hydronephrosis, right Procedure/Surgical History MRI: 08/01/24 insertion of left chest port using fluoroscopic and ultrasound guidance: 07/23/24 Extraction of wisdom tooth Colonoscopy Biopsy of liver Medications Dextrose 50% IV Push, 25 gram(s)= 50 mL, IV Push, AsDirected, PRN enoxaparin, 40 mg= 0.4 mL, Subcutaneous, qDay melatonin, 3 mg= 1 tab(s), Oral, qHS, PRN melatonin, 3 mg= 1 tab(s), Oral, qHS, PRN meropenem Normal Saline 1,000 mL, 1000 mL, Intravenous omeprazole, 20 mg= 1 cap(s), Oral, qDay omeprazole 20 mg oral delayed release capsule, 20 mg= 1 cap(s), Oral, qDay ondansetron, 8 mg= 1 tab(s), Oral, q8h, PRN potassium chloride, 40 mEq= 2 tab(s), Oral, q3h Tylenol, 650 mg= 2 tab(s), Oral, q4h, PRN vancomycin, 1500 mg= 300 mL, IV Piggyback, q12h Zofran 8 mg oral tablet, 8 mg= 1 tab(s), Oral, q8h, PRN, 1 refills, Has Not Started Allergies NKA Family History DVT - Deep vein thrombosis: Father. Diabetes mellitus: Father and Grandparent. High blood pressure: Mother and Grandparent. Health Status Family Member(s) Social History Alcohol Use: DENIES., 2024 Home/Environment Living situation: Home/Independent. Domestic Concerns: Denies., 2024 Nutrition/Health Type of diet: Regular. Appetite Fair. Eating Difficulties None., 08/04/2024 Substance Abuse Use: DENIES., 2024 Tobacco Nicotine Use: Never (less than 100 in lifetime), denies., 03/25/2024 Digitally Signed by PLACIDO RUIZ on 08/19/2024 02:56 PM [id number] Consult note Date of Service 08/19/2024 Reason for Consultation Colon cancer with pelvic abscess History of Present Illness Patient is a 44-year-old female, well-known to surgical service, with history of metastatic colon cancer. Patient recent underwent left sided port placement. She is undergoing neoadjuvant therapy with plans for surgical excision at [facility]. Patient presents the emergency department due to low white count, nausea with right hip pain. Patient was scheduled to have additional dose of chemotherapy yesterday. This was canceled due to her low white count. Due to worsening symptoms patientpresented emergency department for evaluation. During workup she was noted to have multiple small pelvic abscesses. Currently she is feeling better. She is complaining discomfort on the right hip. She denies any abdominal pain, current nausea or vomiting. She denies any constipation symptoms. Review of Systems Constitutional: No complaints of weight loss/gain, confusion or weakness HEENT: No sore throat, difficulty swallowing, or ear pain. No change in vision or hearing Cardiac: No chest pain or arrythmias Respiratory: No SOB, wheezing or cough GI: No change in bowel funciton, nausea or emesis. No masses or distention noted : No change in urinary function, urgency or discomfort Musculoskeletal: No weakness or myalgias. Skin: No rashes, pigmented lesions or itching Psychiatric: No auditory or visual hallucinations Hematologic/Lymphatic: No brusing, bleeding, night sweats or palp masses Physical Exam Vitals and Measurements T: 37.6 C (Oral) TMIN: 37.2 C (Oral) TMAX: 38.3 C (Oral) HR: 95 (Monitored) RR: 16 BP: 122/65 SpO2:94% WT: 99.8 kg Weight Dosing Weight: 99.8 kg (08/19/24) General: A+Ox3 CV: RRR, no MRG Resp: CTAB. Left sided port is well secure with no erythema or drainage noted. Abd: Soft, ND, NT, +BS Lab Results 08/19 08:13 Protime: 19.4 H PT International Ratio: 1.7 08/19 05:39 WBC: 3.2 L Hgb: 8.7 L Hct: 27.7 L Platelet: 451 H 08/19 04:52 Glucose Level: 131 H Sodium Level: 136 Potassium Level: 3.3 L BUN: 8.0 Creatinine Lvl (s): 0.57 Imaging Results and Diagnostics CT scan abdomen pelvis reviewed patient with-several small pelvic fluid collections concerning for abscess. Hepatic lesion is slightly larger than prior CAT scans. EKG EC08/19/24: SINUS TACHYCARDIA BORDERLINE LEFT AXIS DEVIATION BORDERLINE T ABNORMALITIES, INFERIOR LEADS Electronic Signature: REGGIE LOVING MD 08/19/2024 08:50:00 Assessment/Plan Patient is a 44-year-old female with metastatic colon cancer, concern for pelvic abscess, Interventional radiology has reviewed the CAT scan. At this time these fluid collections are too small and poor position for drainage. Subjectively patient is feeling better with bowel rest and IV antibiotics. Continue conservative management for now. Discussed with patient and her that if her condition were to worsen, may ultimately require repeat imaging and/or transfer to [facility] for definitive management. Will continue to follow closely for now. Continue n.p.o. status. Problem List/Past Medical History Ongoing Bilateral hip pain Heartburn History of DVT of lower extremity Hydronephrosis, right Procedure/Surgical History MRI: 08/01/24 insertion of left chest port using fluoroscopic and ultrasound guidance: 07/23/24 Extraction of wisdom tooth Colonoscopy Biopsy of liver Medications Inpatient [facility] omeprazole 20 mg oral delayed release capsule, 20 mg= 1 cap(s), Oral, qDay Zofran 8 mg oral tablet, 8 mg= 1 tab(s), Oral, q8h, PRN, 1 refills, Has Not Started Allergies NKA Social History Alcohol Use: DENIES., 2024 Home/Environment Living situation: Home/Independent. Domestic Concerns: Denies., 2024 Nutrition/Health Type of diet: Regular. Appetite Fair. Eating Difficulties None., 08/04/2024 Substance Abuse Use: DENIES., 2024 Tobacco Nicotine Use: Never (less than 100 in lifetime), denies., 03/25/2024 Family History DVT - Deep vein thrombosis: Father. Diabetes mellitus: Father and Grandparent. High blood pressure: Mother and Grandparent. Health Status Family Member(s) Immunizations measles/mumps/rubella virus vaccine: 0.5 unknown unit (07/06/24) Digitally Signed by ARLENE RODRIGEZ MD on 08/19/2024 11:45 AM [id number]* Exam Date Time Procedure Performing Provider Status 08/19/24 8:37 AM EKG (ED) - CV REGGIE LOVING MD; A [facility] (Verified) ECG Final Report SINUS TACHYCARDIA BORDERLINE LEFT AXIS DEVIATION BORDERLINE T ABNORMALITIES, INFERIOR LEADS Electronic Signature: REGGIE LOVING MD 08/19/2024 08:50:00 [id number] Note* Exam Date Time Procedure Performing Provider Status 08/19/24 6:[address] Abd/Pelvis w/ IV Contrast Only LAUREANO SALGADO MD; Auth (Verified) [id number] ORIGINAL EXAMINATION: CT OF THE ABDOMEN AND PELVIS WITH CONTRAST 08/19/2024 6:48 am TECHNIQUE: CT of the abdomen and pelvis was performed with the administration of intravenous contrast. Multiplanar reformatted images are provided for review. Automated exposure control, iterative reconstruction, and/or weight based adjustment of the mA/kV was utilized to reduce the radiation dose to as low as reasonably achievable. COMPARISON: 06/10/[address] abdomen pelvis 04/27/2024. IR drainage catheter evaluation 04/15/2024 HISTORY: ORDERING SYSTEM PROVIDED HISTORY: Reason for Exam: + RECENT DX LIVER /COLON CA 05/2024.+ PT. WOKE UP WITH VOMITING, HIGH FEVER, AND RIGHT HIP PAIN. PT. HAD A BUTTOCK ABSCESS WITH A DRAIN 03/2024. FINDINGS: Degenerative changes of the spine. Small stable 2 mm nodule in the right lower lobe on series 302, image 11 Heterogenous right hepatic lobe lesion measures 5.7 cm (previously 3.8 cm).. Predominantly hypo dense anterior left hepatic lobe lesion measures up to 2.7 cm (previously 2 cm). Hydropic gallbladder. Normal spleen, pancreas, and adrenal glands. Symmetric nephrograms without evidence of hydronephrosis or nephrolithiasis. Normal course of the abdominal aorta. Periaortic adenopathy measures up to 1.3 cm on series 302, image 66. There are a few pelvic abscesses. There is one eccentric to the right adnexa measures approximately 3.3 x 3.2 x 2.9 cm (axial oblique series 302, image 103; coronal series 601, image 58). There appears to be fistulous communication with the sigmoid colon (thin axial series 301, image 308). A 2nd abscess is more superior and subtends the internal iliac vasculature on the left, measuring 2.4 x 1.8 x 1.9 cm (axial series 302, image 93, coronal series 601, image 70). There is extensive regional adenopathy in this area. Diverticulosis without convincing evidence of diverticulitis. Under distended urinary bladder limiting evaluation. Partly calcified uterine fibroid posteriorly. Small fat containing umbilical hernia. IMPRESSION: Multifocal pelvic abscesses. Question fistulous communication with the sigmoid colon to the abscess eccentric to the right adnexa, as detailed above. Evidence for worsening hepatic metastatic disease. More conspicuous para-aortic adenopathy. Diverticulosis without evidence of a evidence of diverticulitis. Small stable lung nodule in the right lower lobe. Continued attention on follow-up. I have personally reviewed the images of this examination and agree with the resident's findings and interpretation. Interpreted by: Laureano Ng MD Preliminary Report By: Edilma Yoon Electronically signed By Laureano Ng MD Dictated Date: 08/19/2024 6:57:17 AM Prelim Date: 08/19/2024 7:14:59 AM Sign Date: 08/19/2024 7:31:39 AM Ordering Provider: [facility]02-18-2025 History of Present illness Narrative* Paulo Avila MD - 08/18/2024 3:00 PM EST No chief complaint on file. History Of Present Illness Clarisse Peguero is a 44 y.o. female presenting with metastatic sigmoid colon cancer. Subjective Clarisse Peguero was self-referred for second opinion of colon cancer involving the sigmoid colon with metastasis to the liver. She was admitted in 03/2024 for abdominal pain and CT demonstrated a large abscess with extension into the rectouterine pouch. There was also concern for obstructive uropathy. She was treated with antibiotics and CT drainage of the abscess. She continued to have rectal bleeding and irregular BM's so colonoscopy was performed. She underwent colonoscopy 06/08/24 which demonstrated an ulcerated circumferential 5cm mass at 18cm.Biopsy of the mass was positive for moderately differentiated adenocarcinoma. MMR Intact. CT c/a/p performed 06/10/24 showed a 8mm nodule in the left upper and right upper lobe as well as a 3.1cm hypo attenuating lesion in the right hepatic lobe and another 15mm hypodense lesion in the left lobe. Additionally there was a 1.9cm nodule in the left buttock along with thickened sigmoid colon mucosa with narrowing of the lumen with suggestion of a fistulous tract. She was seen by Dr. Perea 08/05 and MRI liver with eovist was performed. Port was placed and she started FOLFOX on 08/04/24. She is going to start iron. Bowels move OK if she gets enough fiber. Difficulty with PO intake while on chemo and has lost 9lbs. Chemo delayed due to low WBC this week. No abdominal pain. There is not a family history of colon cancer. CEA 06/19/24: 219.9 MRI liver with eovist 08/03/24: 1. Multiple liver lesions in segments 8, 5, 3 as described above with dominant lesion in segment 8/4A consistent with hepatic metastatic disease. 2. 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 3. Hepatomegaly with mild fatty infiltration of the liver. 4. Incompletely characterized T2 hyperintense right upper lobe lung nodule. Dedicated chest imagingis recommended. 5. Lipid rich left adrenal adenoma. 6. T2 hyperintense lesion in the T7 vertebral body which is incompletely characterized. This can beassessed at the time of dedicated chest imaging. CT c/a/p 06/10/24: Enlarging right and left heaptic foci of diminish attenuation. Thickened mucosa of the sigmoid colon is present. There is narrowing of the lumen. There is suggestion of in stool fistula at the site of previous mass interposed between the uterus and colon. 19mm subcutaneous nodule at the left buttock. B/l upper lobe nodular foci Colonoscopy 06/08/24 ([facility]): -Internal hemorrhoids -Mass (5cm) in the distal sigmoid colon at 18cm. Biopsied. -The rest of the entire examined colon appeared otherwise normal. 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 Surgical History No past surgical history on file. Social History She reports that she has never smoked. She has never been exposed to tobacco smoke. She has never used smokeless tobacco. She reports that she does not drink alcohol and does not use drugs. Family History No family history on file. Allergies Patient has no known allergies. Home Medications Prior to Admission medications Medication Sig Start Date End Date Taking? Authorizing Provider omeprazole OTC (PriLOSEC OTC) 20 mg EC tablet Take 1 tablet (20 mg) by mouth once daily in the morning. Take before meals. Do not crush, chew, or split. Historical Provider, MD ondansetron (Zofran) 8 mg tablet Take 1 tablet (8 mg) by mouth if needed for nausea or vomiting. Historical Provider, Review of Systems Physical Exam NAD Abd soft NT/ND Last Recorded Vitals There were no vitals taken for this visit. ASSESSMENT & PLAN New diagnosis of colon cancer with metastatic disease to the liver. Plan for neoadjuvant chemo, restaging, and possible surgery. The diagnosis, pathophysiology, staging, treatment alternatives, role of adjuvant therapy, operative procedure, preparation, perioperative course, risks, and possible outcomes were discussed in detail. Discussed synchronous procedures and reasons why that might not be possible. Will have her presented at tumor board and will coordinate care with Dr Perea. The plan was reviewed with the patient and all questions were answered. documented in this [facility] Work Phone: [phone]) 912-209202-18-2025 Summary of episode note CLARISSE PEGUERO :1980 Visit Date:08/18/2024 Your Visit Summary Your Diagnosis Adenocarcinoma of sigmoid colon Tests Performed .Auto Differential -- Results Pending -- .Estimated Glomerular Filtration Rate .Morphology -- Results Pending -- .Neutro Absolute CBC CMP Ferritin Folate Level Iron Studies Manual Differential -- Results Pending -- Vitamin B12 Level You will be contacted within 72 hours with your results. Your Care Team Attending Physician - ROSEANN LUNDBERG MD Primary Care Physician - ABDULKADIR ROSALES PA-C Vitals Temperature (Oral) 98.4 F (36.9 C) Heart Rate 106 Respiratory Rate 18 Blood Pressure 103/60 Height 62.99 in (160 cm) Weight 221.82 lb (100.6 kg) BMI 39.3 What to do next Instructions From Your Doctor Chemo held today. Please return in one week on 08/25/24 at 7:45am for blood work, followed by appointment with Dr. Lundberg. Scheduled Follow-Up Appointments Appointment Type When With Where Contact Information StatusINF/OSP Labwork 08/25/2024 07:45 AM EST Infusion Therapy Confirmed HEM ONC OV Follow Up w/Active Treatment 08/25/2024 08:30 AM ROSEANN THOMPSON MD [facility] Confirmed INF Chemo: Infusion 240 min (4 hours) 08/25/2024 09:00 AM EST Infusion Therapy Confirmed INF/OSP Labwork 08/27/2024 12:45 PM EST Infusion Therapy Confirmed INF Chemo: Infusion Pump Discontinue 15 08/27/2024 01:00 PM EST Infusion Therapy Confirmed Medications What How Much When Why Instructions Unchanged omeprazole (omeprazole 20 mg oral delayed release capsule) 1 cap by mouth Once a day Unchanged ondansetron (Zofran 8 mg oral tablet) 1 tab(s) by mouth Every 8 hours as needed for Nausea/Vomiting Adenocarcinoma of sigmoid colon Test Results .Estimated Glomerular Filtration Rate (08/18/2024) Estimated Glomerular Filtration Rate - 116 ml/min/1.73sqm .Neutro Absolute (08/18/2024) Neutrophil, Absolute - 0.7 10^3/mcL CBC (08/18/2024) WBC - 2.1 10^3/mcL RBC - 4.06 10^6/mcL Hgb - 9.0 G/dL Hct - 29.6 % MCV - 72.9 fL MCH - 22.3 pg MCHC- 30.5 G/dL RDW - 16.8 % Platelet - 404 10^3/mcL MPV - 8.4 fL CMP (08/18/2024) Glucose Level - 129 mg/dL Sodium Level - 137 mEq/L Potassium Level - 3.5 mEq/L Chloride - 102 mEq/LCO2 - 30 mEq/L Electrolyte Balance - 5.0 mEq/L BUN - <5.0 mg/dL Creatinine Lvl (s) - 0.54 mg/dL BUN/Creatinine Ratio - Unable to Calculate Calcium Lvl - 9.1 mg/dL Total Protein - 7.3 G/dL Albumin Level - 2.9 G/dL Globulin - 4.4 G/dL A/G Ratio - 0.7 ratio Bili Total - 0.70 mg/dL Alk Phos - 107 U/L AST/SGOT - 19 U/L ALT/SGPT - 20 U/L Ferritin (08/18/2024) Ferritin - 25.9 ng/mL Folate Level (08/18/2024) Folate - 33.20 ng/mL Iron Studies (08/18/2024) Iron - 6 mcg/dL TIBC - 277 mcg/dL Iron Sat - 2 % Vitamin B12 Level (08/18/2024) Vitamin B12 Lvl - 1316 pg/mL Allergies NKA Additional Information VACCINATE! IT SAVES LIVES! Members of the community who have not yet received the COVID-19 vaccine and would like to receive it can visit one of [facility] vaccine clinics. There are many vaccine clinic locations within the [facility]. For locations and available times, please visit [email or web address] It is important to note that some COVID mobile vaccine clinics are held outdoors and may be canceled in rainy or stormy conditions. To learn more about pediatric vaccinations (ages 5-11), we invite you to visit the [employer] [facility] webpage. [email or web address] learn more about the COVID-19 vaccine, we invite you to visit the CDC website for a list of frequently asked questions. https://www.cdc.gov/coronavirus/2019-ncov/vaccines/faq.html [facility] [employer] Patient Portal Access Instructions: Stay connected with your healthcare team and access your personal medical information anytime with the [employer] Patient Portal.If you would like a full copy of your medical records, please contact the [facility] Medical Records Department, Saturday through Saturday between 8a.m. and 4:30p.m. Please follow the directions below to access the portal: 1.Access the email account you provided upon registration to the [facility].2.Look for an invitation email from [facility].3.Open the email and access the invitation link: Accept Invitation to [facility]4.Fill in the required wetzel to create your account. Sign into www.[employer] with your username and password that you created in the above steps to stay up to date. You can then view a summary of results, a summary of your visits, and the ability to download your summaries to your computer or send the information securely to a physician. Remember that your healthcare information is confidential, so carefully consider who you will allow to register on the [employer] [facility] [facility] Patient Portal for access to your information. You can also access the [employer] Patient Portal on the [employer]. Simply click on Health Records under [employer] and then click on the [employer] logo. HOW TO SAFELY DISPOSE OF PRESCRIPTION MEDICATIONS Please use one of the following methods to safely dispose of your unused medications. 1.Use a drug disposal kit: the drug disposal pouch allows you to safely discard your old and unuseddrugs. Ask your nurse to give you one when you are discharged.2.Visit a local take-back location: Many local pharmacies and police departments have programs that collect old and unwanted prescriptiondrugs. Call your local pharmacy or go to http://nooked.[employer]/0S7Tx2n to find one close to you.3.Make use of household items: Use cat litter or old coffee grounds to dispose medications if other options arenot available. Mix your drugs with these household products, seal them in an airtight container andthrow it into the garbage. Call [facility]: [phone] to be sure your drugs can be disposed of in this way. Some medicines may require a different approach.4.Never flush your medications down the toilet. IF YOU HAVE BEEN PRESCRIBED AN OPIOID FOR PAIN If you have been prescribed an opioid (such as hydrocodone, oxycodone or morphine), it is critical to understand the possible side effects and risks of opioid pain medications. Even when taken as directed, opioids can have several side effects including: Tolerance, meaning you might need to take more of a medication for the same pain relief. Nausea, vomiting and/or constipation. Sleepiness, dizziness, dry mouth, confusion, depression or itching. Physical dependence, meaning you have withdrawal symptoms when a medication is stopped, can develop within a few days. KNOW YOUR RESPONSIBILITIES It is important to know exactly how much and how often to take the opioid pain medications you are prescribed. Never take opioids in higher amounts or more often than prescribed. Do not combine opioids with alcohol or other drugs that cause drowsiness, such as benzodiazepines, also known as benzos, including diazepam and alprazolam, muscle relaxants or sleep aids. Never sell or share prescription opioids. This is illegal. Store opioids in a secure place and out of reach of others (including children, family, friends and visitors). The last page of this document has been signed and retained as a CHART COPY. Signatures Patient Education Materials Medication Leaflets My discharge plan and instructions have been reviewed and explained to me and ISUDHIR ELLA J understand my current condition and have read and understand these discharge instructions. I have received a written copy of the plan/instructions. If I have questions, I am aware that I should contact my david kumar. 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: Date/Time: Relationship to Patient: Witness Name/Signature: Date/Time[id number] Summary of episode note CLARISSE PEGUERO :1980 Visit Date:08/06/2024 Signatures Patient Education Materials Medication Leaflets My discharge plan and instructions have been reviewed and explained to me and ISUDHIR ELLA J understand my current condition and have read and understand these discharge instructions. I have received a written copy of the plan/instructions. If I have questions, I am aware that I should contact my david kumar. 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 Her pelvic perforation was controlled with a drain and antibiotics and she does not appear obstructed at this time. The burden of her liver disease is manageable Vonda suggested to her that we could approach this with curative intent. She is starting chemotherapy and I am hopeful that she has a good response over the next 4 to 6 months. We discussed that if her imaging shows stability or improvement in her liver disease that we could plan for a combined resection of her primary colon cancer and resection/ablation of her liver tumors. She has up to a 25% risk of peritoneal recurrence given her perforated presentation so we will keep a close eye on that as well. I spent 60 minutes in the professional and overall care of this patient. Justice Perea MD marketing communications coordinator Division of Surgical Oncology [phone] [email or web address] History Of Present Illness Clarisse Peguero is a 44 y.o. female referred by Roseann Lundberg for metastatic colon cancer. The patient presented with a pelvic abscess from presumed diverticulitis in March 2024. She wastreated with percutaneous drainage and antibiotics and this resolved successfully. Colonoscopy on 06/08/2024 showed an ulcerated circumferential 5 cm mass in the sigmoid colon at 18 cm causing a partial obstruction, biopsy showed moderately differentiated adenocarcinoma, MMR intact. CEA 213. CT chest showed an 8 mm nodule in each lung. CT abdomen suggested a liver lesion, MRI with Eovist showed a total of 6 tumors in the liver: A 4.4 cm tumor in segment 8/5, a nearby 8 mm tumor, a 4 mm tumor near the gallbladder fossa, a 1 cm tumor in the dome of the liver, a 2.6 cm tumor in segment 3 and another 1.0 cm in segment 3. 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 The patient has had a Port-A-Cath placed and started FOLFOX yesterday. All other systems have been reviewed and are negative except as noted in the HPI. I personally reviewed all necessary laboratory results, pathology reports, and radiologic images for this patient. Past Medical History She has no past medical history on file. Surgical History She has no past surgical history on file. Social History She has no history on file for tobacco use, alcohol use, and drug use. Family History No family history on file. Allergies Patient has no known allergies. Last Recorded Vitals There were no vitals taken for this visit. Physical Exam General: no acute distress, well-nourished Eyes: intact EOM, no scleral icterus ENT: hearing intact, no drainage Respiratory: symmetric chest rise, no cough Cardiovascular: intact distal pulses, no pitting edema Abdominal: soft, nontender, nondistended Musculoskeletal: no deformities, intact strength Integumentary: warm, dry, no lymphadenopathy Neuro: no focal deficits, sensation intact Psych: normal mood and affect Relevant Results Narrative & Impression Interpreted By: Alireza Peña, STUDY: MR LIVER WITH EOVIST CONTRAST; 08/01/2024 10:27 am INDICATION: Signs/Symptoms:Patient with colon cancer and suspected liver mets needs MRI liver with eovist for further evaluation for surgical planning. 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 ACCESSION NUMBER(S): [id number] ORDERING CLINICIAN: JUSTICE PEREA TECHNIQUE: MRI LIVER; Multiplanar magnetic resonance images of the abdomen were obtained including the following sequences; T2-weighted SSFSE with and without fat saturation, T1-weighted GRE in/opposed phase, DWI, fat saturated 3D-T1w GRE pre and dynamically post contrast. 10 ML of Eovist was administered intravenously without immediate complication. FINDINGS: LIVER: Liver is enlarged in size measuring 20 cm craniocaudally. There is mild drop of signal in the liver parenchyma on the out of phase images compared to the inphase images representing mild fatty infiltration. There are multiple liver lesions in both the right and left lobes. Right lobe: There is a 4.4 x 4.4 x 3.9 cm heterogeneously T2 hyperintense and T1 hypointense mass in the segment 8/5 of the liver immediately above the bifurcation of the anterior and posterior divisions of the right portal vein. The mass causes a thrombosis of the anterior division of the right portal vein. The mass demonstrates mild peripheral enhancement with the central area of necrosis. There is a diffusion restriction within the mass. There is heterogeneous diffuse geographic area of increased enhancement on the arterial phase images with the decreased enhancement on the hepatocyte phase surrounding this mass in the segments 8 and 4A likely representing perfusion abnormality. There is an 8 mm satellite lesion immediately adjacent to this dominant mass (series 32, image 37). Inferior to this within the segment 5 abutting the gallbladder fossa is a 4 mm focus of diffusion restriction with no uptake on Eovist (series 32, image 45). There is a 1.0 x 0.8 cm lesion in the hepatic dome medially (series 32, image 21). A 2 mm T2 hyperintense focus in the posterior aspect of the segment 7 of the liver likely represents a simple cysts (series 4, image 21, series 32, image 34). Left lobe: There are 2 lesions in the left lobe of the liver with the similar imaging characteristics in the segment 3 measuring a proximally 2.6 x 2.5 cm and 1.0 x 1.0 cm (series 32, images a 45, 51). There is a 3 mm T2 hyperintense nonenhancing focus in the periphery of the segment 3 subcapsular location likely representing a simple cyst (series 4, image 29, series 32, image 44). BILE DUCTS: There is no intra or extrahepatic bile duct dilatation. GALLBLADDER: The gallbladder is non distended and contains multiple gallstones. PANCREAS: Normal signal intensity. Normal enhancement. No masses. The pancreatic duct is normal. SPLEEN: Spleen is normal in size and signal. No focal splenic lesion is seen. ADRENAL GLANDS: There is an 8 mm nodule in the left adrenal gland which demonstrates drop of signal on the out of phase images compared to the inphase images consistent with a lipid rich adrenal adenoma. Right adrenal gland is within normal limits. KIDNEYS: Bilateral kidneys are symmetric in size, signal and enhancement. No hydronephrosis. LYMPH NODES: There is no enlarged lymphadenopathy in the abdomen. A prominent portacaval lymph node is noted measuring approximately 2.4 x 0.9 cm. ABDOMINAL VESSELS: Aorta and its major branches are within normal limits. Main portal vein and its right and left branches are patent. The anterior division of the right portal vein is likely thrombosed secondary to the segment 8 mass with resultant perfusion abnormality in the 8 and 4A. Splenic vein and SMV are patent. IVC is unremarkable. No significant collaterals. BOWEL: Stomach and duodenum are within normal limits. Visualized small and large bowel loops are normal in caliber. PERITONEUM/RETROPERITONEUM: No ascites or intra-abdominal fluid collection. No retroperitoneal mass. BONES AND LOWER THORAX: A T2 hyperintense focus is noted in the T7 vertebral body without significant postcontrast enhancement. Rest of the bones show normal marrow signal and enhancement. Visualized sections of the chest reveal 9 mm T2 hyperintense nodule in the right upper lobe (series 3, image 24). IMPRESSION: 1. Multiple liver lesions in segments 8, 5, 3 as described above with dominant lesion in segment 8/4A consistent with hepatic metastatic disease. 2. 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 3. Hepatomegaly with mild fatty infiltration of the liver. 4. Incompletely characterized T2 hyperintense right upper lobe lung nodule. Dedicated chest imaging is recommended. 5. Lipid rich left adrenal adenoma. 6. T2 hyperintense lesion in the T7 vertebral body which is incompletely characterized. This can be assessed at the time of dedicated chest imaging. documented in this [facility] Work Phone: [phone] Summary of episode note CLARISSE PEGUERO :1980 Visit Date:08/04/2024 Your Visit Summary Your Diagnosis Adenocarcinoma of sigmoid colon Your Care Team Attending Physician - ROSEANN LUNDBERG MD Primary Care Physician - ABDULKADIR ROSALES PA-C Vitals Temperature (Oral) 98.1 F (36.7 C) Heart Rate 93 Blood Pressure 106/66 Height 62.99 in (160 cm) Weight 230.20 lb (104.4 kg) BMI 40.78 What to do next Instructions From Your Doctor You have received the following therapy today: Chemotherapy/Immunotherapy Call your physician if any of the following problems occur: Nausea/Vomiting Mouth Sores Diarrhea Fever Prolonged bleeding or easy bruising Pain or discomfort at the injection site Scheduled Follow-Up Appointments Appointment Type When With Where Contact Information StatusINF/OSP Labwork 08/06/2024 12:00 PM EST Infusion Therapy Confirmed INF Chemo: Infusion Pump Discontinue 15 08/06/2024 12:15 PM EST Infusion Therapy Confirmed GS OV Post Op 08/07/2024 08:45 AM EST ARLENE RODRIGEZ MD [facility] Confirmed HEM ONC OV Follow Up w/Active Treatment 09/01/2024 09:45 AM ROSEANN THOMPSON MD [facility] Confirmed Medications What How Much When Why Instructions Unchanged omeprazole (omeprazole 20 mg oral delayed release capsule) 1 cap by mouth Once a day Unchanged ondansetron (Zofran 8 mg oral tablet) 1 tab(s) by mouth Every 8 hours as needed for Nausea/Vomiting Adenocarcinoma of sigmoid colon Allergies NKA Additional Information VACCINATE! IT SAVES LIVES! Members of the community who have not yet received the COVID-19 vaccine and would like to receive it can visit one of [facility] vaccine clinics. There are many vaccine clinic locations within the [facility]. For locations and available times, please visit www.[email or web address].[place].gov/. It is important to note that some COVID mobile vaccine clinics are held outdoors and may be canceled in rainy or stormy conditions. To learn more about pediatric vaccinations (ages 5-11), we invite you to visit the [employer] webpage. [email or web address] [email or web address] learn more about the COVID-19 vaccine, we invite you to visit the CDC website for a list of frequently asked questions. https://www.cdc.gov/coronavirus/2019-ncov/vaccines/faq.html [facility] [employer] Patient Portal Access Instructions: Stay connected with your healthcare team and access your personal medical information anytime with the [employer] Patient Portal.If you would like a full copy of your medical records, please contact the [facility] Medical Records Department, Saturday through Saturday between 8a.m. and 4:30p.m. Please follow the directions below to access the portal: 1.Access the email account you provided upon registration to the hospital.2.Look for an invitation email from [facility].3.Open the email and access the invitation link: Accept Invitation to [facility] [employer]4.Fill in the required wetzel to create your account. Sign into www.[employer] with your username and password that you created in the above steps to stay up to date. You can then view a summary of results, a summary of your visits, and the ability to download your summaries to your computer or send the information securely to a physician. Remember that your healthcare information is confidential, so carefully consider who you will allow to register on the [employer] Patient Portal for access to your information. You can also access the [employer] Patient Portal on the [employer]. Simply click on Health Records under [employer] and then click on the [employer] logo. HOW TO SAFELY DISPOSE OF PRESCRIPTION MEDICATIONS Please use one of the following methods to safely dispose of your unused medications. 1.Use a drug disposal kit: the drug disposal pouch allows you to safely discard your old and unuseddrugs. Ask your nurse to give you one when you are discharged.2.Visit a local take-back location: Many local pharmacies and police departments have programs that collect old and unwanted prescriptiondrugs. Call your local pharmacy or go to http://nooked.[employer]/5I5Qu8h to find one close to you.3.Make use of household items: Use cat litter or old coffee grounds to dispose medications if other options arenot available. Mix your drugs with these household products, seal them in an airtight container andthrow it into the garbage. Call [facility]: [phone] to be sure your drugs can be disposed of in this way. Some medicines may require a different approach.4.Never flush your medications down the toilet. IF YOU HAVE BEEN PRESCRIBED AN OPIOID FOR PAIN If you have been prescribed an opioid (such as hydrocodone, oxycodone or morphine), it is critical to understand the possible side effects and risks of opioid pain medications. Even when taken as directed, opioids can have several side effects including: Tolerance, meaning you might need to take more of a medication for the same pain relief. Nausea, vomiting and/or constipation. Sleepiness, dizziness, dry mouth, confusion, depression or itching. Physical dependence, meaning you have withdrawal symptoms when a medication is stopped, can develop within a few days. KNOW YOUR RESPONSIBILITIES It is important to know exactly how much and how often to take the opioid pain medications you are prescribed. Never take opioids in higher amounts or more often than prescribed. Do not combine opioids with alcohol or other drugs that cause drowsiness, such as benzodiazepines, also known as benzos, including diazepam and alprazolam, muscle relaxants or sleep aids. Never sell or share prescription opioids. This is illegal. Store opioids in a secure place and out of reach of others (including children, family, friends and visitors). The last page of this document has been signed and retained as a CHART COPY. Signatures Patient Education Materials Medication Leaflets My discharge plan and instructions have been reviewed and explained to me and I,SUDHIR CLARISSE Jude understand my current condition and have read and understand these discharge instructions. I have received a written copy of the plan/instructions. If I have questions, I am aware that I should contact my d octor. 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: Date/Time: Relationship to Patient: Witness Name/Signature: Date[facility]Time[id number] Discharge instructions Patient Education 07/23/2024 16:27:29 Implanted Port Insertion Implanted Port Insertion Implanted port insertion is a procedure to put in a port and catheter. The port is a device with aninjectable disk that can be accessed by your health care provider. The port is connected to a vein in the chest or neck by a small flexible tube (catheter). There are different types of ports. The implanted port may be used as a long-term IV access for: Medicines, such as chemotherapy. Fluids. Liquid nutrition, such as total parenteral nutrition (TPN). When you have a port, this means that your health care provider will not need to use the veins in your arms for these procedures. Tell a health care provider about: Any allergies you have. All medicines you are taking, especially blood thinners, as well as any vitamins, herbs, eye drops,creams, qxjr-orh-qkytstr medicines, and steroids. Any problems you or family members have had with anesthetic medicines. Any blood disorders you have. Any surgeries you have had. Any medical conditions you have or have had, including diabetes or kidney problems. Whether you are or may be . What are the risks? Generally, this is a safe procedure. However, problems may occur, including: Allergic reactions to medicines or dyes. Damage to other structures or organs. Infection. Damage to the blood vessel, bruising, or bleeding at the puncture site. Blood clot. Breakdown of the skin over the port. A collection of air in the chest that can cause one of the lungs to collapse (pneumothorax). This is rare. What happens before the procedure? Medicines Ask your health care provider about: ?Changing or stopping your regular medicines. This is especially important if you are taking diabetes medicines or blood thinners. ?Taking medicines such as aspirin and ibuprofen. These medicines can thin your blood. Do not take these medicines unless your health care provider tells you to take them. ?Taking eewt-usb-pysutjt medicines, vitamins, herbs, and supplements. Staying hydrated Follow instructions from your health care provider about hydration, which may include: Up to 2 hours before the procedure you may continue to drink clear liquids, such as water, clear fruit juice, black coffee, and plain tea. Eating and drinking restrictions Follow instructions from your health care provider about eating and drinking, which may include: ?8 hours before the procedure stop eating heavy meals or foods, such as meat, fried foods, or fattyfoods. ?6 hours before the procedure stop eating light meals or foods, such as toast or cereal. ?6 hours before the procedure stop drinking milk or drinks that contain milk. ?2 hours before the procedure stop drinking clear liquids. General instructions Plan to have someone take you home from the hospital or clinic. If you will be going home right after the procedure, plan to have someone with you for 24 hours. You may have blood tests. Do not use any products that contain nicotine or tobacco for at least 4 6 weeks before the procedure. These products include cigarettes, e-cigarettes, and chewing tobacco. If you need help quitting, ask your health care provider. Ask your health care provider what steps will be taken to help prevent infection. These may include: ?Removing hair at the surgery site. ?Washing skin with a germ-killing soap. ?Taking antibiotic medicine. What happens during the procedure? An IV will be inserted into one of your veins. You will be given one or more of the following: ?A medicine to help you relax (sedative). ?A medicine to numb the area (local anesthetic). Two small incisions will be made to insert the port. ?One smaller incision will be made in your neck to get access to the vein where the catheter will lie. ?The other incision will be made in the upper chest. This is where the port will lie. The procedure may be done using continuous X-ray (fluoroscopy) or other imaging tools for guidance. The port and catheter will be placed. There may be a small, raised area where the port is. The port will be flushed with a salt solution (saline), and blood will be drawn to make sure that it is working correctly. The incisions will be closed. Bandages (dressings) may be placed over the incisions. The procedure may vary among health care providers and hospitals. What happens after the procedure? Your blood pressure, heart rate, breathing rate, and blood oxygen level will be monitored until youleave the hospital or clinic. Do not drive for 24 hours if you were given a sedative during your procedure. You will be given a video editor's information card for the type of port that you have. Keep this with you. Your port will need to be flushed and checked as told by your health care provider, usually every few weeks. A chest X-ray will be done to: ?Check the placement of the port. ?Make sure there is no injury to your lung. Summary Implanted port insertion is a procedure to put in a port and catheter. The implanted port is used as a long-term IV access. The port will need to be flushed and checked as told by your health care provider, usually every few weeks. Keep your video editor's information card with you at all times. This information is not intended to replace advice given to you by your health care provider. Make sure you discuss any questions you have with your health care provider. Document Released: 04/07/2014 Document Revised: 10/09/2019 Document Reviewed: 01/13/2019 [employer] Patient Education 2020 [employer] Follow Up Care 07/17/2024 09:39:18 With:ARLENE RODRIGEZ MD, Surgery Address: [address] [place] [address] [address] [facility] [place] [address]- [phone] When: Unknown Comments:Follow-up as scheduled [facility] 01-23-2025 Anesthesiology Consult note Patient: CLARISSE PEGUERO Age: 44 years Sex: Female : 1980 Associated Diagnoses: None Author: IRMA IRIZARRY MD Postoperative Information Post Operative Info: Post op day: Post Anesthesia Care Unit. Patient location: PACU. Assessment Postanesthesia assessment Vitals: Vital signs from flowsheet : Vital Signs 07/23/2024 16:00 EST Temperature Temporal Artery 36.7 DegC Peripheral Pulse Rate 85 bpm Respiratory Rate 16 br/min Systolic Blood Pressure Non-Invasive 111 mmHg Diastolic Blood Pressure Non-Invasive 70 mmHg 07/23/2024 15:42 EST Heart Rate Monitored 77 bpm 07/23/2024 15:41 EST Heart Rate Monitored 78 bpm 07/23/2024 15:41 EST Systolic Blood Pressure Non-Invasive 136 mmHg Diastolic Blood Pressure Non-Invasive 74 mmHg Mean Arterial Pressure (NBP) 88 mmHg 07/23/2024 15:41 EST Temperature Temporal Artery 36.9 DegC Respiratory Rate 16 br/min 07/23/2024 15:25 EST Heart Rate Monitored 81 bpm 07/23/2024 15:25 EST Systolic Blood Pressure Non-Invasive 123 mmHg Diastolic Blood Pressure Non-Invasive 77 mmHg Mean Arterial Pressure (NBP) 87 mmHg 07/23/2024 15:25 EST Respiratory Rate 16 br/min 07/23/2024 15:10 EST Heart Rate Monitored 81 bpm 07/23/2024 15:10 EST Systolic Blood Pressure Non-Invasive 131 mmHg Diastolic Blood Pressure Non-Invasive 65 mmHg Mean Arterial Pressure (NBP) 83 mmHg 07/23/2024 15:10 EST Temperature Temporal Artery 37 DegC Respiratory Rate 16 br/min Respiratory Rate - Anes 0 br/min br/min 07/23/2024 15:05 EST Respiratory Rate - Anes 0 br/min br/min 07/23/2024 15:04 EST Systolic Blood Pressure Non-Invasive 138 mmHg mmHg Diastolic Blood Pressure Non-Invasive 78 mmHg mmHg 07/23/2024 15:01 EST Systolic Blood Pressure Non-Invasive 151 mmHg mmHg Diastolic Blood Pressure Non-Invasive 68 mmHg mmHg 07/23/2024 15:00 EST Temperature (Route Not Specified) 36 DegC DegC Heart Rate Monitored 91 bpm bpm Respiratory Rate - Anes 24 br/min br/min 07/23/2024 14:57 EST Systolic Blood Pressure Non-Invasive 123 mmHg mmHg Diastolic Blood Pressure Non-Invasive 77 mmHg mmHg 07/23/2024 14:55 EST Heart Rate Monitored 93 bpm bpm Respiratory Rate - Anes 0 br/min br/min Systolic Blood Pressure Non-Invasive 110 mmHg mmHg Diastolic Blood Pressure Non-Invasive 90 mmHg mmHg 07/23/2024 14:52 EST Systolic Blood Pressure Non-Invasive 148 mmHg mmHg Diastolic Blood Pressure Non-Invasive 74 mmHg mmHg 07/23/2024 14:50 EST Heart Rate Monitored 90 bpm bpm Respiratory Rate - Anes 24 br/min br/min 07/23/2024 14:49 EST Systolic Blood Pressure Non-Invasive 135 mmHg mmHg Diastolic Blood Pressure Non-Invasive 68 mmHg mmHg 07/23/2024 14:46 EST Systolic Blood Pressure Non-Invasive 142 mmHg mmHg Diastolic Blood Pressure Non-Invasive 66 mmHg mmHg 07/23/2024 14:45 EST Heart Rate Monitored 94 bpm bpm Respiratory Rate - Anes 24 br/min br/min 07/23/2024 14:43 EST Systolic Blood Pressure Non-Invasive 142 mmHg mmHg Diastolic Blood Pressure Non-Invasive 56 mmHg mmHg 07/23/2024 14:40 EST Heart Rate Monitored 97 bpm bpm Respiratory Rate - Anes 32 br/min br/min Systolic Blood Pressure Non-Invasive 142 mmHg mmHg Diastolic Blood Pressure Non-Invasive 67 mmHg mmHg 07/23/2024 14:37 EST Systolic Blood Pressure Non-Invasive 124 mmHg mmHg Diastolic Blood Pressure Non-Invasive 63 mmHg mmHg 07/23/2024 14:35 EST Heart Rate Monitored 89 bpm bpm Respiratory Rate - Anes 28 br/min br/min 07/23/2024 14:34 EST Systolic Blood Pressure Non-Invasive 114 mmHg mmHg Diastolic Blood Pressure Non-Invasive 70 mmHg mmHg 07/23/2024 14:31 EST Systolic Blood Pressure Non-Invasive 128 mmHg mmHg Diastolic Blood Pressure Non-Invasive 62 mmHg mmHg 07/23/2024 14:30 EST Heart Rate Monitored 91 bpm bpm Respiratory Rate - Anes 29 br/min br/min 07/23/2024 14:28 EST Systolic Blood Pressure Non-Invasive 139 mmHg mmHg Diastolic Blood Pressure Non-Invasive 52 mmHg mmHg 07/23/2024 14:25 EST Heart Rate Monitored 85 bpm bpm Respiratory Rate - Anes 24 br/min br/min Systolic Blood Pressure Non-Invasive 140 mmHg mmHg Diastolic Blood Pressure Non-Invasive 75 mmHg mmHg 07/23/2024 14:22 EST Systolic Blood Pressure Non-Invasive 127 mmHg mmHg Diastolic Blood Pressure Non-Invasive 77 mmHg mmHg 07/23/2024 14:20 EST Heart Rate Monitored 79 bpm bpm Respiratory Rate - Anes 23 br/min br/min 07/23/2024 14:19 EST Systolic Blood Pressure Non-Invasive 126 mmHg mmHg Diastolic Blood Pressure Non-Invasive 66 mmHg mmHg 07/23/2024 14:16 EST Systolic Blood Pressure Non-Invasive 145 mmHg mmHg Diastolic Blood Pressure Non-Invasive 80 mmHg mmHg 07/23/2024 14:15 EST Heart Rate Monitored 75 bpm bpm Respiratory Rate - Anes 17 br/min br/min 07/23/2024 14:13 EST Systolic Blood Pressure Non-Invasive 129 mmHg mmHg Diastolic Blood Pressure Non-Invasive 72 mmHg mmHg 07/23/2024 14:10 EST Respiratory Rate - Anes 0 br/min br/min Systolic Blood Pressure Non-Invasive 134 mmHg mmHg Diastolic Blood Pressure Non-Invasive 77 mmHg mmHg 07/23/2024 11:30 EST Temperature Temporal Artery 35.8 DegC Apical Heart Rate 98 bpm Respiratory Rate 16 br/min Systolic Blood Pressure Non-Invasive 113 mmHg Diastolic Blood Pressure Non-Invasive 78 mmHg . Mental status: at preoperative baseline. Respiratory function: respirations are non-labored, Stable. Respiratory support: none. CV function: Stable. Cardiovascular support: none. Pain: Satisfactory. Nausea status: Satisfactory. Postoperative hydration status: within normal limits. Notes: Patient is sufficiently recovered from anesthesia to participate in the evaluation. No follow-up care needed. No complications post-anesthesia.. Digitally Signed by IRMA IRIZARRY MD on 07/23/2024 06:23 PM [id number] Summary of episode note Discharge Instructions Thank you for allowing [facility] to assist you with your healthcare needs. The following is importantdischarge information regarding your hospital visit. Your Care Team ABDULKADIR ROSALES PA-C Your Diagnosis After care What to do next Scheduled Follow-Up Appointments Appointment Type When With Where Contact Information StatusINF/OSP Labwork 08/04/2024 09:15 AM EST Infusion Therapy Confirmed HEM ONC OV Follow Up w/Active Treatment 08/04/2024 10:00 AM ROSEANN THOMPSON MD [facility] Confirmed INF Chemo: Infusion 240 min (4 hours) 08/04/2024 10:30 AM EST Infusion Therapy Confirmed INF/OSP Labwork 08/06/2024 12:00 PM EST Infusion Therapy Confirmed INF Chemo: Infusion Pump Discontinue 15 08/06/2024 12:15 PM EST Infusion Therapy Confirmed GS OV Post Op 08/07/2024 08:45 AM EST ARLENE RODRIGEZ MD [facility] Confirmed Follow Up Appointments Follow Up with ARLENE RODRIGEZ MD, Surgery Where:[address] [facility] [address] [place] [address]- [phone] Additional Information: Follow-up as scheduled The Following Activity and Diet Have Been Ordered for You Discharge Activity - Ordered -- Lifting Restricted less than 25 pounds, 07/23/24 16:09:00 EST Discharge Diet - Ordered -- Type of Diet: Regular, 07/23/24 16:09:00 EST The Following Equipment Has Been Ordered for You Discharge Home Equipment Discharge Wound Care - Ordered -- Follow the post-operative/post-procedure wound care instructions provided by your physician's office., 07/23/24 16:09:00 EST Allergies NKA Medications Please ask your primary doctor or pharmacist before taking any other medication not listed, including over the counter drugs, herbal medications, vitamins and or supplements as they may interact withyour home medications. What How Much When Why Instructions Last Dose New acetaminophen-hydrocodone (Stanton 325- 5 mg oral tablet) 1 tab(s) by mouth Every 6 hours as needed for for pain After care Duration: 7 Days Pickup at [facility] New acetaminophen-hydrocodone (Stanton 325- 5 mg oral tablet) 1 tab(s) by mouth Every 6 hours as needed for for pain After care Duration: 7 Days Pickup at [facility] Unchanged herbal/ nutritional product (Probiotic) 1 tab(s) by mouth Once a day Unchanged omeprazole (omeprazole 20 mg oral delayed release capsule) 1 cap by mouth Once a day Unchanged ondansetron (Zofran 8 mg oral tablet) 1 tab(s) by mouth Every 8 hours as needed for Nausea/Vomiting Adenocarcinoma of sigmoid colon Pharmacy Information [facility]: [address] [place] [phone] Please take this list to your next doctor s visit. Bring all medications you take, including over the counter medications, herbals and other supplements with you to your doctor s visit. Patients and families are reminded to discard old lists and to update any records with all medication providers or retail pharmacies. Education Materials Implanted Port Insertion Implanted port insertion is a procedure to put in a port and catheter. The port is a device with aninjectable disk that can be accessed by your health care provider. The port is connected to a vein in the chest or neck by a small flexible tube (catheter). There are different types of ports. The implanted port may be used as a long-term IV access for: Medicines, such as chemotherapy. Fluids. Liquid nutrition, such as total parenteral nutrition (TPN). When you have a port, this means that your health care provider will not need to use the veins in your arms for these procedures. Tell a health care provider about: Any allergies you have. All medicines you are taking, especially blood thinners, as well as any vitamins, herbs, eye drops,creams, gzyd-ycp-bqtickb medicines, and steroids. Any problems you or family members have had with anesthetic medicines. Any blood disorders you have. Any surgeries you have had. Any medical conditions you have or have had, including diabetes or kidney problems. Whether you are or may be . What are the risks? Generally, this is a safe procedure. However, problems may occur, including: Allergic reactions to medicines or dyes. Damage to other structures or organs. Infection. Damage to the blood vessel, bruising, or bleeding at the puncture site. Blood clot. Breakdown of the skin over the port. A collection of air in the chest that can cause one of the lungs to collapse (pneumothorax). This is rare. What happens before the procedure? Medicines Ask your health care provider about: ? Changing or stopping your regular medicines. This is especially important if you are taking diabetes medicines or blood thinners. ? Taking medicines such as aspirin and ibuprofen. These medicines can thin your blood. Do not take these medicines unless your health care provider tells you to take them. ? Taking ygtp-pjc-rplfejk medicines, vitamins, herbs, and supplements. Staying hydrated Follow instructions from your health care provider about hydration, which may include: Up to 2 hours before the procedure you may continue to drink clear liquids, such as water, clear fruit juice, black coffee, and plain tea. Eating and drinking restrictions Follow instructions from your health care provider about eating and drinking, which may include: ? 8 hours before the procedure stop eating heavy meals or foods, such as meat, fried foods, or fatty foods. ? 6 hours before the procedure stop eating light meals or foods, such as toast or cereal. ? 6 hours before the procedure stop drinking milk or drinks that contain milk. ? 2 hours before the procedure stop drinking clear liquids. General instructions Plan to have someone take you home from the hospital or clinic. If you will be going home right after the procedure, plan to have someone with you for 24 hours. You may have blood tests. Do not use any products that contain nicotine or tobacco for at least 4 6 weeks before the procedure. These products include cigarettes, e-cigarettes, and chewing tobacco. If you need help quitting, ask your health care provider. Ask your health care provider what steps will be taken to help prevent infection. These may include: ? Removing hair at the surgery site. ? Washing skin with a germ-killing soap. ? Taking antibiotic medicine. What happens during the procedure? An IV will be inserted into one of your veins. You will be given one or more of the following: ? A medicine to help you relax (sedative). ? A medicine to numb the area (local anesthetic). Two small incisions will be made to insert the port. ? One smaller incision will be made in your neck to get access to the vein where the catheter will lie. ? The other incision will be made in the upper chest. This is where the port will lie. The procedure may be done using continuous X-ray (fluoroscopy) or other imaging tools for guidance. The port and catheter will be placed. There may be a small, raised area where the port is. The port will be flushed with a salt solution (saline), and blood will be drawn to make sure that it is working correctly. The incisions will be closed. Bandages (dressings) may be placed over the incisions. The procedure may vary among health care providers and hospitals. What happens after the procedure? Your blood pressure, heart rate, breathing rate, and blood oxygen level will be monitored until youleave the hospital or clinic. Do not drive for 24 hours if you were given a sedative during your procedure. You will be given a video editor's information card for the type of port that you have. Keep this with you. Your port will need to be flushed and checked as told by your health care provider, usually every few weeks. A chest X-ray will be done to: ? Check the placement of the port. ? Make sure there is no injury to your lung. Summary Implanted port insertion is a procedure to put in a port and catheter. The implanted port is used as a long-term IV access. The port will need to be flushed and checked as told by your health care provider, usually every few weeks. Keep your video editor's information card with you at all times. This information is not intended to replace advice given to you by your health care provider. Make sure you discuss any questions you have with your health care provider. Document Released: 04/07/2014 Document Revised: 10/09/2019 Document Reviewed: 01/13/2019 [employer] Patient Education 2020 [employer] Additional Information VACCINATE! IT SAVES LIVES! Members of the community who have not yet received the COVID-19 vaccine and would like to receive it can visit one of [facility] vaccine clinics. There are many vaccine clinic locations within the [facility]. For locations and available times, please visit https://[email or web address].[place].gov/. It is important to note that some COVID mobile vaccine clinics are held outdoors and may be canceled in rainy or stormy conditions. To learn more about pediatric vaccinations (ages 5-11), we invite you to visit the [facility] webpage. https://www.[facility].org/pages/7338-Wighj-Dzrzfaoryhj-Eotembokpz-Jruaw-Lng stions.htmlTo learn more about the COVID-19 vaccine, we invite you to visit the CDC website for a list of frequently asked questions.https://www.cdc.gov/coronavirus/2019-ncov/vaccines/faq.html [employer] Patient Portal Access Instructions: Stay connected with your healthcare team and access your personal medical information anytime with the [employer] Patient Portal. Please follow the directions below to create your [employer] account: 1.Access the email account you provided upon registration to the hospital/physician office.2.Look for an invitation email from [facility].3.Open the email and access the invitation link: AcceptInvitation to [employer].4.Fill in the required wetzel to create your account. To access your account, visit [employer]/My [employer] WorksOneChart. Click the blue button labeled Access Patient Portal and then log in with the username and password that you created in the steps above. You will be able to view your test results, lab results, a summary of your visits, upcoming appointments and more. There is also a convenient messaging option where you can send secure messages to your p rovider. In addition, you will have the ability to download any documents or summaries to your computer and/or send the information securely to a physician. Remember that your healthcare information is confidential, so carefully consider who you will allowto register on the [facility] for access to your information. You can also access the [facility] on the [facility] patrizia. Simply click on Patient Portal and then log into your account. If you would like to receive a full copy of your medical records, please contact the [facility] Medical Records Department by calling [phone], Saturday through Saturday between 8 a.m. and 4:30 p.m. HOW TO SAFELY DISPOSE OF PRESCRIPTION MEDICATIONS Please use one of the following methods to safely dispose of your unused medications. 1.Use a drug disposal kit: the drug disposal pouch allows you to safely discard your old and unuseddrugs. Ask your nurse to give you one when you are discharged.2.Visit a local take-back location: Many local pharmacies and police departments have programs that collect old and unwanted prescriptiondrugs. Call your local pharmacy or go to http://nooked.Global Talent Track/7T6Jf7t to find one close to you.3.Make use of household items: Use cat litter or old coffee grounds to dispose medications if other options arenot available. Mix your drugs with these household products, seal them in an airtight container andthrow it into the garbage. Call [facility]: [phone] to be sure your drugs can be disposed of in this way. Some medicines may require a different approach.4.Never flush your medications down the toilet. IF YOU HAVE BEEN PRESCRIBED AN OPIOID FOR PAIN If you have been prescribed an opioid (such as hydrocodone, oxycodone or morphine), it is critical to understand the possible side effects and risks of opioid pain medications. Even when taken as directed, opioids can have several side effects including: Tolerance, meaning you might need to take more of a medication for the same pain relief. Nausea, vomiting and/or constipation. Sleepiness, dizziness, dry mouth, confusion, depression or itching. Physical dependence, meaning you have withdrawal symptoms when a medication is stopped, can develop within a few days. KNOW YOUR RESPONSIBILITIES It is important to know exactly how much and how often to take the opioid pain medications you are prescribed. Never take opioids in higher amounts or more often than prescribed. Do not combine opioids with alcohol or other drugs that cause drowsiness, such as benzodiazepines, also known as benzos, including diazepam and alprazolam, muscle relaxants or sleep aids. Never sell or share prescription opioids. This is illegal. Store opioids in a secure place and out of reach of others (including children, family, friends and visitors). The last page of this document has been signed and retained as a CHART COPY. Signatures Patient Education Materials Implanted Port Insertion Medication Leaflets My discharge plan and instructions have been reviewed and explained to me and I,CLARISSE PEGUERO understand my current condition and have read and understand these discharge instructions. I have received a written copy of the plan/instructions. If I have questions, I am aware that I should contact my d octor. 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: Date/Time: Relationship to Patient: Witness Name/Signature: Date/Time: [id number] Note* Exam Date Time Procedure Performing Provider Status 07/23/24 3:20 PM XR Fluoro Venous Access Device ZAK GOMEZ MD; Auth (Verified) [id number] ORIGINAL EXAMINATION: FLUOROGUIDE VEIN DEVICE07/23/2024 3:20 pm Intraoperative fluoroscopy and image intensifier views of the chest COMPARISON: None HISTORY: ORDERING SYSTEM PROVIDED HISTORY: Reason for Exam: VENOUS INSUFFICIENCY, , intraoperative imaging FINDINGS/IMPRESSION: Fluoroscopic time: 25.9 seconds Total dose (Reference Air Kerma): 6.4018 MGy Number of fluoroscopic images: 4 Detail is limited. Please see intraoperative notes for additional details of the procedure. Interpreted by: Zak Gomez MD Preliminary Report By: Zak Gomez MD Electronically signed By Zak Gomez MD Dictated Date: 07/23/2024 4:14:39 PM Prelim Date: 07/23/2024 4:15:24 PM Sign Date: 07/23/2024 4:15:24 PM Ordering Provider: ARLENE RODRIGEZ [id number] Anesthesiology Consult note Patient: CLARISSE PEGUERO Age: 44 years Sex: Female : 1980 Associated Diagnoses: None Author: HELEN ARGUELLO MD Preoperative Information NPO > 8 hours solids and liquids Anesthesia history Patient's history: negative. Family's history: negative. Health Status Allergies: Allergic Reactions (Selected) NKA, Allergies (1) ActiveSeverityReaction NKANone Documented Current medications: (Selected) Inpatient Medications Ordered Kefzol: 2 gram(s), 20 mL, 240 mL/hr, IV Push (INT), PREOP pharm lidocaine 1% preservative-free injectable solution: 2.5 mg, 0.25 mL, Intradermal, prep pharm Future Continuous 5FU Infusion (DoT): 4,970 mg, Portable Pump - IV (INF), Day of Tx, Day 1 Zero Time Placeholder: None, Day of Tx, Day 1 Zero Time Placeholder: None, Day of Tx, Day 3 Zero Time Placeholder: None, Day of Tx, Day 4 dexamethasone (DoT): 10 mg, 50 mL, 150 mL/hr, IV Piggyback, Day of Tx, Day 1 fluorouracil syringe (DoT): 850 mg, 17 mL, 204 mL/hr, Slow IV Push (INF), Day of Tx, Day 1 fosaprepitant (DoT): 150 mg, 150 mL, 450 mL/hr, IV Piggyback, Day of Tx, Day 1 leucovorin (DoT): 850 mg, 85 mL, 167.5 mL/hr, IV Piggyback, Day of Tx, Day 1 oxaliplatin (DoT): 175 mg, 35 mL, 267.5 mL/hr, IV Piggyback, Day of Tx, Day 1 palonosetron (DoT): 0.25 mg, 5 mL, IV Push (INF), Day of Tx, Day 1 Prescriptions Prescribed Stanton 325- 5 mg oral tablet: 1 tab(s), Oral, q6h, for 7 day(s), PRN: for pain, 20 tab(s), 0 Refill(s) Zofran 8 mg oral tablet: 8 mg, 1 tab(s), Oral, q8h, PRN: Nausea/Vomiting, 30 tab(s), 1 Refill(s) Documented Medications Documented Probiotic: 1 tab(s), Oral, qDay, 0 Refill(s) omeprazole 20 mg oral delayed release capsule: 20 mg, 1 cap(s), Oral, qDay, 30 cap(s), 0 Refill(s), Medications (2) Active Scheduled: (2) ceFAZolin syringe 2 gram(s) 20 mL, IV Push (INT), PREOP pharm lidocaine 1% (MPF) 2 mL vial pf 2.5 mg 0.25 mL, Intradermal, prep pharm Continuous: (0) PRN: (0) Problem list: Medical Heartburn / SNOMED CT 44291503 / Confirmed History of DVT of lower extremity / SNOMED CT 0987760853 / Confirmed Hydronephrosis, right / SNOMED CT 87745972 / Confirmed, Active Problems (10) Acid reflux Adenocarcinoma of sigmoid colon Anemia BMI 39.0-39.9,adult Diverticulitis Heartburn History of DVT of lower extremity Hydronephrosis, right Personal history of COVID-19 Runny nose Histories Past Medical History: No active or resolved past medical history items have been selected or recorded. Procedure history: Extraction of wisdom tooth (038131021). Colonoscopy (127428300). Biopsy of liver (961266212). Social History: Social & Psychosocial Habits Alcohol 07/23/2024 Use: DENIES Substance Abuse 07/23/2024 Use: DENIES Tobacco 07/23/2024 Tobacco Use: Never (less than 100 in l, denies Home/Environment 07/23/2024 Living situation: Home/Independent Domestic Concerns Denies Nutrition/Health 07/23/2024 Type of diet: Regular Appetite Good Eating Difficulties None Physical Examination Measurements from flowsheet : Measurements 07/23/2024 11:30 EST Height 160.0 cm Height in inches 63 inch(es) Admission Weight 101.0 kg Weight Lbs 222.2 lb Weight Method Actual Bacova Body Weight 52.38 kg Admission Body Mass Index 39.45 m2 General: Alert and oriented, No acute distress. Airway: Mallampati classification: I (soft palate, fauces, uvula, pillars visible). Head: Normocephalic, Atraumatic. Dentition Evaluation: Intact, Own teeth, Denies loose/chipped teeth. Respiratory: Lungs are clear to auscultation, Respirations are non-labored. Cardiovascular: Normal rate. Heart Sounds: Normal. Neurologic: Alert, Oriented. Review / Management Documentation reviewed: Current records, Reviewed prior records. Assessment and Plan [place] [employer] Anesthesiologists (ASA) physical status classification: Class III. Anesthetic Preoperative Plan Anesthetic technique: MAC. Induction: intravenously. Maintenance airway: Mask. Postoperative pain management: Per surgeon. Risks discussed: nausea, vomiting, headache, sore throat, dental injury, hypotension, allergic reaction, serious complications. Informed consent: signed by patient. H/o acid reflux (controlled with omeprazole), adenocarcinoma of sigmoid colon, anemia, colonic diverticular abscess, diverticulitis, DVT (2005), hydronephrosis, COVID-19 (2020) Denies chest pain, dyspnea, syncope. I reviewed the medical record including pertinent notes and consultations, lab results, and radiographic and cardiovascular studies. I reviewed the anesthetic plan and answered all questions as well as addressed all concerns. Will proceed with documented anesthetic plan. Digitally Signed by HELEN ARGUELLO MD on 07/23/2024 01:31 PM [id number] History and physical note Date of Service 07/23/2024 History and Physical Update I have examined the patient; reviewed the History and Physical and there are no changes to the History and Physical unless noted below. Digitally Signed by ARLENE RODRIGEZ MD on 07/23/2024 06:58 AM [id number] Evaluation + Plan noteExtracted from: Title:IR pre procedure H&P Author:ARCHIE MUÑOZ PA-C Date:07/16/24 IR PREPROCEDURE H&P UPDATE IF A HISTORY AND PHYSICAL EXAMINATION HAS BEEN COMPLETED PRIOR TO ADMISSION TO THE HOSPITAL, AN UPDATED EXAMINATION MUST BE COMPLETED AND DOCUMENTED WITHIN 24 HOURS AFTER ADMISSION OR REGISTRATION BUT BEFORE A SURGICAL PROCEDURE. I have examined the patient, reviewed the H&P, and there are no changes unless noted below: _ The most recent H&P/Office Note has been performed on 07/10/2024 and can be found on paper, which has been scanned into the [facility] PACS/RIS system. _ Future Appointments Appointment Date:07/17/2024 09:00:00 AM Scheduled Provider:ARLENE RODRIGEZ MD Location:Gen Surg CAN Appointment Type:GS OV Appointment Date:07/24/2024 12:30:00 PM Scheduled Provider: Location:HEM ONC Appointment Type:HEM ONC Lab Only Appointment Date:07/24/2024 12:30:00 PM Scheduled Provider: Location:INF Appointment Type:INF/OSP Labwork Appointment Date:07/24/2024 01:00:00 PM Scheduled Provider:KB GALAN Location:HEM ONC Appointment Type:HEM ONC Chemo Teaching Appointment Date:08/04/2024 09:15:00 AM Scheduled Provider: Location:INF Appointment Type:INF/OSP Labwork Appointment Date:08/04/2024 10:00:00 AM Scheduled Provider:ROSEANN LUNDBERG MD Location:HEM ONC Appointment Type:HEM ONC OV Follow Up w/Active Treatment Appointment Date:08/04/2024 10:30:00 AM Scheduled Provider: Location:INF Appointment Type:INF Chemo: Infusion 240 min (4 hours) Appointment Date:08/06/2024 12:00:00 PM Scheduled Provider: Location:INF Appointment Type:INF/OSP Labwork Appointment Date:08/06/2024 12:15:00 PM Scheduled Provider: Location:INF Appointment Type:INF Chemo: Infusion Pump Discontinue 15 Future Scheduled Tests Laboratory* Acute Hepatitis Panel 07/27/24 * Carcinoembryonic Antigen 07/27/24 * Complete Blood Count 07/27/24 * Complete Metabolic Panel 07/27/24 * [facility] [place] (Blood Specimens) 07/10/24 Radiology* CT Thorax w/ Contrast 06/17/24 * CT Abdomen and Pelvis w/ contrast 06/17/24 * CT Abdomen and Pelvis w/ contrast 03/27/24 * US Renal 04/13/24 [facility] 01-16-2025 Hospital Discharge instructions Patient Education 07/16/2024 10:59:06 Radiology- US Liver Biospy 04/10/2024 (CUSTOM) [facility] Liver Biopsy Discharge Instructions Ultrasound Department [facility] Services [address] [address] Today, you had a biopsy of your liver tissue. This procedure was done to help your doctor diagnose and treat the signs and symptoms you have been experiencing. These instructions should be followed after your procedure to reduce the chance of experiencing complications. Diet: Resume your normal diet as tolerated. Activity: Rest for the remainder of the day. You may resume your normal activity tomorrow. You may bathe/shower after 24 hours. Do not soak or submerge site (including swimming or hot tubs) until a scab forms. No heavy lifting, pushing, or straining. Dressing: Check the site for bleeding. Apply pressure to the site if bleeding excessively and call your physician. Change the band aid as needed; it can be removed after 24 hours. Keep the site dry at all times until a scab forms over the site. Pain Control: The puncture site may be sore for 1 to 2 days following the procedure. Mbpm-hth-[id number] pain medication should be used for pain or discomfort. Please check with the physician who ordered this procedure for you for their specific recommendations. If your pain is not relieved or becomes more severe, notify the physician who sent you for this procedure. If you were sedated for this procedure: Avoid alcoholic beverages for 24 hours after your procedure. Do not drive or operate heavy machinery for 24 hours after your procedure. Do not make any legal decisions for 24 hours after your procedure. Medication: Please resume all medications today per home schedule. When to seek medical help: Right shoulder pain that is severe and last more than several hours. Abdominal pain or swelling. Severe nausea or vomiting. Black, foul smelling bowel movements. Lightheadedness, dizziness, or fainting. Infection: fever greater than 101 degrees, chills, redness, warmth, swelling, bleeding, or pus frompuncture site. If you experience any of these issues during the first 24 hours, please follow the instruction below: 8:00 am- 5:00 pm call [phone] After 24 hours, contact the physician who ordered this procedure for you. Obtaining test results: Please make an appointment with your doctor to obtain your test results. They are usually availablewithin 4 to 7 business days. Do not assume everything is normal if you have not heard from your doctor or medical facility. It is important for you to follow up on all of your test results. Special Instructions: 07/16/2024 10:57:20 Moderate Conscious Sedation, Adult, Care After Moderate Conscious Sedation, Adult, Care After These instructions provide you with information about caring for yourself after your procedure. Your health care provider may also give you more specific instructions. Your treatment has been plannedaccording to current medical practices, but problems sometimes occur. Call your health care provider if you have any problems or questions after your procedure. What can I expect after the procedure? After your procedure, it is common: To feel sleepy for several hours. To feel clumsy and have poor balance for several hours. To have poor judgment for several hours. To vomit if you eat too soon. Follow these instructions at home: For at least 24 hours after the procedure: Do not: ?Participate in activities where you could fall or become injured. ?Drive. ?Use heavy machinery. ?Drink alcohol. ?Take sleeping pills or medicines that cause drowsiness. ?Make important decisions or sign legal documents. ?Take care of children on your own. Rest. Eating and drinking Follow the diet recommended by your health care provider. If you vomit: ?Drink water, juice, or soup when you can drink without vomiting. ?Make sure you have little or no nausea before eating solid foods. General instructions Have a responsible adult stay with you until you are awake and alert. Take yocy-ebz-cbqszrk and prescription medicines only as told by your health care provider. If you smoke, do not smoke without supervision. Keep all follow-up visits as told by your health care provider. This is important. Contact a health care provider if: You keep feeling nauseous or you keep vomiting. You feel light-headed. You develop a rash. You have a fever. Get help right away if: You have trouble breathing. This information is not intended to replace advice given to you by your health care provider. Make sure you discuss any questions you have with your health care provider. Document Released: 04/07/2014 Document Revised: 05/30/2018 Document Reviewed: 10/06/2016 [employer] Patient Education [email or web address]. Follow Up Care 07/02/2024 09:52:25 With:ARLENE RODRIGEZ MD, Surgery Address: [address] [place] [address] [address] [place] [address]- [phone] When: Unknown Comments:Follow-up as scheduled With:Go to emergency room if symptoms worsen Address:Unknown When: Unknown [facility] 01-16-2025 Note* MELA Hooks: SIGN, AUTHOR, PERFORM Event Display: IR Procedure Record Authored Date: [id number] IR Procedure Record Summary Primary Physician: KENAN JOSE MD Finalized Date/Time: 07/16/24 10:07:09 Pt. Name: SUDHIRCLARISSE D.O.B./Sex: 1980 Female Med Rec #: [id number] Physician: Financial #: [id number] Pt. Type: O Room/Bed: / Admit/Disch: 07/16/24 07:00:24 - Institution: Allergies identified in patient's electronic medical record at time of printing on 07/16/24 Entry 1 Substance NKA Reaction Type Allergy Last Modified By: Gisselle Hector RN 03/09/24 04:11:39 Case Attendance- IR Entry 1 Entry 2 Entry 3 Case Attendee KENAN JOSE MD, [facility] MELA Sims Role Performed Primary Surgeon Patient Service Coordinator Procedure Nurse Details Time In 07/16/24 09:10:00 07/16/24 09:10:00 07/16/24 09:10:00 Time Out 07/16/24 10:01:00 07/16/24 10:05:00 07/16/24 10:05:00 Procedure/Preference IR Biopsy Liver SN IR Biopsy Liver SN IR Biopsy Liver SN Card Last Modified By: MELA Hooks RN Jennifer M Fichter, RN Jennifer M 07/16/24 10:07:04 07/16/24 10:07:04 07/16/24 10:07:04 Entry 4 Case Attendee EDILMA YOON MD Role Performed Resident 1 Details Time In 07/16/24 09:31:00 Time Out 07/16/24 10:01:00 Procedure/Preference IR Biopsy Liver SN Card Last Modified By: MELA Hooks 07/16/24 10:07:04 Radiology Procedures- IR Entry 1 Procedure/Preference IR Biopsy Liver SN Actual Procedure IR BIOPSY LIVER Card Actual Procedure ct/ir liver biopsy Primary Procedure Yes Continued Primary Surgeon KENAN JOSE MD Anesthesia/Sedation IV Sedation, Local Type Additional Procedure Times Start 07/16/24 09:12:00 Stop 07/16/24 09:55:00 Specialty Service SN Radiology Procedure EBL 2 mL Last Modified By: MELA Hooks 07/16/24 09:54:38 Radiology Procedure Details - IR Entry 1 Radiology Sedation Case Times Sedation Start Time 07/16/24 09:12:00 Sedation Stop Time 07/16/24 09:55:00 Sedation Total Time 43 minutes Radiology - Fluid/Drainage Fluid Amount mL: 0 Radiology Contrast Contrast Used? No Dose 0 Radiology Flouroscopy Fluoroscopy Used? No Fluoro Dose (mGy) 0 Fluoro Time 0 Radiology Local Local Used? Yes Local Type: lidocaine 2% Local Dose 20ml Radiology Procedure Site Site/Location r abdomen Site Condition No complications Dressing Type Bandaids Technologist Notes successful liver biopsy patient tolerated gel foam and embo cube used [id number] Last Modified By: MELA Hooks 07/16/24 09:55:28 Cultures and Specimens- IR Entry 1 Kind Specimen Type Mass Date/Time 07/16/24 09:44:00 Source r abdomen liver x 8 core Last Modified By: MELA Hooks 07/16/24 09:47:11 General Case Data - IR Entry 1 Case Information Room AH IR CT Case Level IR Level 2 Wound Class None Specialty SN Radiology Procedure ASA Class None Diagnosis Preop Diagnosis liver mass Postop Same As Preop Yes Postop Diagnosis liver mass Last Modified By: MELA Hooks 07/16/24 08:00:06 Medication Administration- IR Entry 1 Entry 2 Entry 3 Medication versed fentanyl bupivicaine with epi Time Administered 07/16/24 09:27:00 07/16/24 09:12:00 07/16/24 09:34:00 Route of Admin IV Push IV Push Local Dose 1mg 25mcg 20cc Volume 1 mL .5 mL 20 mL VORB * *Verbal Order Read Back (VORB) is required for NON- PHYSICIAN administration of medications. Administered by No No Yes Physician? Administered by: MELA Hooks RN Jennifer M KAR, MITRYAN MD Verbal Order Read KENAN JOSE MD, MITRYAN MD Back from: Last Modified By: MELA Hooks RN Jennifer M Fichter, RN Jennifer M 07/16/24 09:28:45 07/16/24 09:28:45 07/16/24 09:53:49 Entry 4 Entry 5 Entry 6 Medication versed benadryl versed Time Administered 07/16/24 09:12:00 07/16/24 09:11:00 07/16/24 09:37:00 Route of Admin IV Push IV Push IV Push Dose 1mg 50mg 1mg Volume 1 mL 1 mL 1 mL VORB * *Verbal Order Read Back (VORB) is required for NON- PHYSICIAN administration of medications. Administered by No No No Physician? Administered by: MELA Hooks RN Jennifer M Fichter, RN Jennifer M Verbal Order Read KENAN JOSE MD, MITRYAN MD KAR, MITRYAN MD Back from: Last Modified By: MELA Hooks RN Jennifer M Fichter, RN Jennifer M 07/16/24 09:28:45 07/16/24 09:34:57 07/16/24 09:41:42 Entry 7 Entry 8 Medication versed fentanyl Time Administered 07/16/24 09:44:00 07/16/24 09:44:00 Route of Admin IV Push IV Push Dose 1mg 25mcg Volume 1 mL .5 mL VORB * *Verbal Order Read Back (VORB) is required for NON- PHYSICIAN administration of medications. Administered by No No Physician? Administered by: MELA Hooks RN Jennifer M Verbal Order Read KENAN JOSE MD, MITRYAN MD Back from: Last Modified By: MELA Hooks RN Jennifer M 07/16/24 09:46:47 07/16/24 09:46:47 Procedure Case Times- IR Entry 1 Patient In Procedure Patient In OR 07/16/24 09:10:00 Patient Out of OR 07/16/24 10:05:00 Procedure Start/Stop Procedure Start Time 07/16/24 09:12:00 Procedure Stop Time 07/16/24 09:55:00 Last Modified By: MELA Hooks 07/16/24 10:06:47 Immediate Post OP Note - IR Entry 1 Immediate Post Yes Findings 8x18G cores of seg 8/5 Procedure Note mass; gelfoam displayed for embolized; no immediate Physician to review hematoma Closure Technique Closure Technique Other than Primary Last Modified By: MELA Hooks 07/16/24 09:58:22 Immediate Post OP Note - IR Signed By: KENAN JOSE MD 07/16/24 09:57 Allergy Information- IR Entry 1 Allergies Reviewed? Yes Allergies Reviewed Medical Record With Last Modified By: MELA Hooks 07/16/24 07:54:53 Radiology Protocols/Time Out- IR Entry 1 Preprocedure Clinician Verifies Correct patient ID When Clinically Consent for using name & date Indicated Administration of or MRN, Accurate Blood, Confirmation of procedure, complete correct side(s) and Informed Consent, H & P site(s), Correct update immediately diagnostic and prior to procedure, if radiology tests applicable, Clinical available, Required team introduction blood products, complete implants, devices and/or special equipment available, Preop antibiotics sent with patient/available in OR OR/Procedure Room/Bedside Time 07/16/24 09:11:00 Clinician Verifies Correct patient identity including EMR & records using name and date or medical record number, Accurate procedure consent form, Correct patient position, Necessary equipment is available, Anticipated non-routine events with surgical team (case duration, estimated blood loss, patient specific concerns)., Amaya patient factors for recovery and management identified with surgical team. When Applicable Consent for Team Members KENAN JOSE MD, Car, Administration of Present for Time Out Substitute Crossing Guard Lianna A, Blood, Confirmation MELA Hooks correct side and site marked, Relevant images and results are properly labeled and appropriately displayed, Confirm/obtain preop antibiotic order., Alcohol based prep dry, Double verification of sterility indicators complete Instrument Sterility Team Members KENAN JOSE MD, Car, Verifying Sterility Substitute Crossing Guard Lianna A Procedure IR Biopsy Liver SN Last Modified By: MELA Hooks 07/16/24 09:14:26 Skin Prep- IR Entry 1 Procedure IR Biopsy Liver SN Skin Prep Prep Area Abdomen Side Right By KENAN JOSE MD Prep Agents Chloraprep Hair Removal Method N/A Last Modified By: MELA Hooks 07/16/24 09:29:15 Patient Positioning- IR Entry 1 Procedure IR Biopsy Liver SN Body Position OP Supine Feet Uncrossed? Yes Pressure Points Yes Checked Last Modified By: MELA Hooks 07/16/24 09:41:51 Radiology Procedure Plan - IR Entry 1 Radiology - Nursing Care Plan Outcome Statement The patient Outcome Statement The patient receives demonstrates knowledge Cont. appropriate of the expected medication(s), safely responses to the administered during the operative/invasive perioperative/invasive procedure., The period., The patient is patient's value system, free from signs and lifestyle, ethnicity, symptoms of injury and culture are caused by extraneous considered, respected, objects (equipment, and incorporated in the instrumentation, perioperative plan of sponges, or sharps)., care., The patient is The patient is free free from signs and from signs and symptoms symptoms of infection., of electrical injury., The patient is free The patient is at or from signs and symptoms returning to of injury related to normothermia at the positioning., The conclusion of the patient is free from immediate signs and symptoms of postoperative/invasive chemical injury. period., The patient is free from signs and symptoms of laser injury. Radiology - Action Plan Outcomes Met? 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 MELA Hooks Completing Procedure Plan Last Modified By: MELA Hooks 07/16/24 07:59:09 Transfer Post Procedure- IR Entry 1 RAD - Transport to Recovery Patient Transported IV Via Cart With Post-op Destination Receiving Transported By MELA Hooks, Car [employer] Lianna Bolton Post Procedure Time Out Double Verification Yes Date/Time Verified 07/16/24 10:05:00 of ID band on patient Completed Verfied ID Band on MELA Hooks, by Abraham Yoon Tech Lianna Bolton Last Modified By: MELA Hooks 07/16/24 10:06:56 Case Comments <None> Finalized By: MELA Hooks Document Signatures Signed By: MELA Hooks 07/16/24 10:07 [facility] 01-16-2025 Summary of episode note Discharge Instructions Thank you for allowing [facility] to assist you with your healthcare needs. The following is importantdischarge information regarding your hospital visit. Your Care Team ABDULKADIR ROSALES PA-C What to do next Scheduled Follow-Up Appointments Appointment Type When With Where Contact Information StatusGS OV 07/17/2024 09:00 AM ARLENE BRANNON MD [facility] Confirmed HEM ONC Lab Only 07/24/2024 12:30 PM [facility] INF/OSP Labwork 07/24/2024 12:30 PM EST Infusion Therapy Confirmed HEM ONC Chemo Teaching 07/24/2024 01:00 PM KB FITZGERALD APRN-YUSRA [facility] Confirmed INF/OSP Labwork 08/04/2024 09:15 AM EST Infusion Therapy Confirmed HEM ONC OV Follow Up w/Active Treatment 08/04/2024 10:00 AM [facility] Confirmed INF Chemo: Infusion 240 min (4 hours) 08/04/2024 10:30 AM EST Infusion Therapy Confirmed INF/OSP Labwork 08/06/2024 12:00 PM EST Infusion Therapy Confirmed INF Chemo: Infusion Pump Discontinue 15 08/06/2024 12:15 PM EST Infusion Therapy Confirmed Follow Up Appointments Follow Up with ARLENE RODRIGEZ MD, Surgery Where:[address] [place] [address] [address] [place] [address]- [phone] Additional Information: Follow-up as scheduled Follow Up with Go to emergency room if symptoms worsen The Following Activity and Diet Have Been Ordered for You Discharge Activity - Ordered -- Lifting Restricted less than 10 pounds, x 5 days, 07/16/24 9:58:00 EST Discharge Driving Restrictions - Ordered -- * Other, specify in special instructions, No driving until the following day as you received sedation., 07/16/24 9:58:00 EST No qualifying data available. The Following Equipment Has Been Ordered for You Discharge Home Equipment Discharge Wound Care - Ordered -- Remove dressing at biopsy site in 24 hours. Keep dry. Don't submerge in water until incision well scabbed., 07/16/24 9:58:00 EST Allergies NKA Medications Please ask your primary doctor or pharmacist before taking any other medication not listed, including over the counter drugs, herbal medications, vitamins and or supplements as they may interact withyour home medications. What How Much When Instructions Last Dose Unchanged herbal/ nutritional product (Probiotic) Unchanged omeprazole (omeprazole 20 mg oral delayed release capsule) 1 cap by mouth Once a day Please take this list to your next doctor s visit. Bring all medications you take, including over the counter medications, herbals and other supplements with you to your doctor s visit. Patients and families are reminded to discard old lists and to update any records with all medication providers or retail pharmacies. Education Materials [facility] Liver Biopsy Discharge Instructions Ultrasound Department [facility] [address] [place] [id number] Today, you had a biopsy of your liver tissue. This procedure was done to help your doctor diagnose and treat the signs and symptoms you have been experiencing. These instructions should be followed after your procedure to reduce the chance of experiencing complications. Diet: Resume your normal diet as tolerated. Activity: Rest for the remainder of the day. You may resume your normal activity tomorrow. You may bathe/shower after 24 hours. Do not soak or submerge site (including swimming or hot tubs) until a scab forms. No heavy lifting, pushing, or straining. Dressing: Check the site for bleeding. Apply pressure to the site if bleeding excessively and call your physician. Change the band aid as needed; it can be removed after 24 hours. Keep the site dry at all times until a scab forms over the site. Pain Control: The puncture site may be sore for 1 to 2 days following the procedure. Znlu-whp-suxwlkt pain medication should be used for pain or discomfort. Please check with the physician who ordered this procedure for you for their specific recommendations. If your pain is not relieved or becomes more severe, notify the physician who sent you for this procedure. If you were sedated for this procedure: Avoid alcoholic beverages for 24 hours after your procedure. Do not drive or operate heavy machinery for 24 hours after your procedure. Do not make any legal decisions for 24 hours after your procedure. Medication: Please resume all medications today per home schedule. When to seek medical help: Right shoulder pain that is severe and last more than several hours. Abdominal pain or swelling. Severe nausea or vomiting. Black, foul smelling bowel movements. Lightheadedness, dizziness, or fainting. Infection: fever greater than 101 degrees, chills, redness, warmth, swelling, bleeding, or pus frompuncture site. If you experience any of these issues during the first 24 hours, please follow the instruction below: 8:00 am- 5:00 pm call [phone] After 24 hours, contact the physician who ordered this procedure for you. Obtaining test results: Please make an appointment with your doctor to obtain your test results. They are usually availablewithin 4 to 7 business days. Do not assume everything is normal if you have not heard from your doctor or medical facility. It is important for you to follow up on all of your test results. Special Instructions: Moderate Conscious Sedation, Adult, Care After These instructions provide you with information about caring for yourself after your procedure. Your health care provider may also give you more specific instructions. Your treatment has been plannedaccording to current medical practices, but problems sometimes occur. Call your health care provider if you have any problems or questions after your procedure. What can I expect after the procedure? After your procedure, it is common: To feel sleepy for several hours. To feel clumsy and have poor balance for several hours. To have poor judgment for several hours. To vomit if you eat too soon. Follow these instructions at home: For at least 24 hours after the procedure: Do not: ? Participate in activities where you could fall or become injured. ? Drive. ? Use heavy machinery. ? Drink alcohol. ? Take sleeping pills or medicines that cause drowsiness. ? Make important decisions or sign legal documents. ? Take care of children on your own. Rest. Eating and drinking Follow the diet recommended by your health care provider. If you vomit: ? Drink water, juice, or soup when you can drink without vomiting. ? Make sure you have little or no nausea before eating solid foods. General instructions Have a responsible adult stay with you until you are awake and alert. Take piis-ojv-ksylgmu and prescription medicines only as told by your health care provider. If you smoke, do not smoke without supervision. Keep all follow-up visits as told by your health care provider. This is important. Contact a health care provider if: You keep feeling nauseous or you keep vomiting. You feel light-headed. You develop a rash. You have a fever. Get help right away if: You have trouble breathing. This information is not intended to replace advice given to you by your health care provider. Make sure you discuss any questions you have with your health care provider. Document Released: 04/07/2014 Document Revised: 05/30/2018 Document Reviewed: 10/06/2016 Elsevier Patient Education 2020 [employer] Additional Information VACCINATE! IT SAVES LIVES! Members of the community who have not yet received the COVID-19 vaccine and would like to receive it can visit one of [facility] vaccine clinics. There are many vaccine clinic locations within the [facility]. For locations and available times, please visit https://gettheshot.coronavirus.[place].gov/. It is important to note that some COVID mobile vaccine clinics are held outdoors and may be canceled in rainy or stormy conditions. To learn more about pediatric vaccinations (ages 5-11), we invite you to visit the [employer] webpage. https://www.Tresorits.org/pages/[email or web address]-Tjqyx-Fdkdqssccgx-Zmgohmsfkn-Ksqxj-Lyp stions.htmlTo learn more about the COVID-19 vaccine, we invite you to visit the CDC website for a list of frequently asked questions.https://www.cdc.gov/coronavirus/2019-ncov/vaccines/faq.html [employer] Patient Portal Access Instructions: Stay connected with your healthcare team and access your personal medical information anytime with the [employer] Patient Portal. Please follow the directions below to create your [employer] account: 1.Access the email account you provided upon registration to the hospital/physician office.2.Look for an invitation email from [facility].3.Open the email and access the invitation link: AcceptInvitation to [employer].4.Fill in the required wetzel to create your account. To access your account, visit [employer] Works[employer]. Click the blue button labeled Access Patient Portal and then log in with the username and password that you created in the steps above. You will be able to view your test results, lab results, a summary of your visits, upcoming appointments and more. There is also a convenient messaging option where you can send secure messages to your p rovider. In addition, you will have the ability to download any documents or summaries to your computer and/or send the information securely to a physician. Remember that your healthcare information is confidential, so carefully consider who you will allowto register on the [facility] Patient Portal for access to your information. You can also access the [facility] on the [facility] patrizia. Simply click on Patient Portal and then log into your account. If you would like to receive a full copy of your medical records, please contact the [facility] Medical Records Department by calling [phone], Saturday through Saturday between 8 a.m. and 4:30 p.m. HOW TO SAFELY DISPOSE OF PRESCRIPTION MEDICATIONS Please use one of the following methods to safely dispose of your unused medications. 1.Use a drug disposal kit: the drug disposal pouch allows you to safely discard your old and unuseddrugs. Ask your nurse to give you one when you are discharged.2.Visit a local take-back location: Many local pharmacies and police departments have programs that collect old and unwanted prescriptiondrugs. Call your local pharmacy or go to http://IORevolution/7T4Jn4h to find one close to you.3.Make use of household items: Use cat litter or old coffee grounds to dispose medications if other options arenot available. Mix your drugs with these household products, seal them in an airtight container andthrow it into the garbage. Call [facility]: [phone] to be sure your drugs can be disposed of in this way. Some medicines may require a different approach.4.Never flush your medications down the toilet. IF YOU HAVE BEEN PRESCRIBED AN OPIOID FOR PAIN If you have been prescribed an opioid (such as hydrocodone, oxycodone or morphine), it is critical to understand the possible side effects and risks of opioid pain medications. Even when taken as directed, opioids can have several side effects including: Tolerance, meaning you might need to take more of a medication for the same pain relief. Nausea, vomiting and/or constipation. Sleepiness, dizziness, dry mouth, confusion, depression or itching. Physical dependence, meaning you have withdrawal symptoms when a medication is stopped, can develop within a few days. KNOW YOUR RESPONSIBILITIES It is important to know exactly how much and how often to take the opioid pain medications you are prescribed. Never take opioids in higher amounts or more often than prescribed. Do not combine opioids with alcohol or other drugs that cause drowsiness, such as benzodiazepines, also known as benzos, including diazepam and alprazolam, muscle relaxants or sleep aids. Never sell or share prescription opioids. This is illegal. Store opioids in a secure place and out of reach of others (including children, family, friends and visitors). The last page of this document has been signed and retained as a CHART COPY. Signatures Patient Education Materials Radiology- US Liver Biospy 04/10/2024 (CUSTOM) Moderate Conscious Sedation, Adult, Care After Medication Leaflets My discharge plan and instructions have been reviewed and explained to me and I,CLARISSE PEGUERO understand my current condition and have read and understand these discharge instructions. I have received a written copy of the plan/instructions. If I have questions, I am aware that I should contact my d octor. 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: Date/Time: Relationship to Patient: Witness Name/Signature: [id number] IR Procedure Record Summary Primary Physician: KENAN JOSE MD Finalized Date/Time: 07/16/24 10:07:09 Pt. Name: CLARISSE PEGUERO /Sex: 1980 Female Med Rec #: [id number] Physician: Financial #: [id number] Pt. Type: O Room/Bed: / Admit/Disch: 07/16/24 07:00:24 - Institution: Allergies identified in patient's electronic medical record at time of printing on 07/16/24 Entry 1 Substance NKA Reaction Type Allergy Last Modified By: Gisselle Hector RN 03/09/24 04:11:39 Case Attendance- IR Entry 1 Entry 2 Entry 3 Case Attendee KENAN JOSE MD [facility] MELA Sims Role Performed Primary Surgeon Patient Service Coordinator Procedure Nurse Details Time In 07/16/24 09:10:00 07/16/24 09:10:00 07/16/24 09:10:00 Time Out 07/16/24 10:01:00 07/16/24 10:05:00 07/16/24 10:05:00 Procedure/Preference IR Biopsy Liver SN IR Biopsy Liver SN IR Biopsy Liver SN Card Last Modified By: MELA Hooks RN Jennifer M Fichter, RN Jennifer M 07/16/24 10:07:04 07/16/24 10:07:04 07/16/24 10:07:04 Entry 4 Case Attendee EDILMA YOON MD Role Performed Resident 1 Details Time In 07/16/24 09:31:00 Time Out 07/16/24 10:01:00 Procedure/Preference IR Biopsy Liver SN Card Last Modified By: MELA Hooks 07/16/24 10:07:04 Radiology Procedures- IR Entry 1 Procedure/Preference IR Biopsy Liver SN Actual Procedure IR BIOPSY LIVER Card Actual Procedure ct/ir liver biopsy Primary Procedure Yes Continued Primary Surgeon KENAN JOSE MD Anesthesia/Sedation IV Sedation, Local Type Additional Procedure Times Start 07/16/24 09:12:00 Stop 07/16/24 09:55:00 Specialty Service SN Radiology Procedure EBL 2 mL Last Modified By: MELA Hooks 07/16/24 09:54:38 Radiology Procedure Details - IR Entry 1 Radiology Sedation Case Times Sedation Start Time 07/16/24 09:12:00 Sedation Stop Time 07/16/24 09:55:00 Sedation Total Time 43 minutes Radiology - Fluid/Drainage Fluid Amount mL: 0 Radiology Contrast Contrast Used? No Dose 0 Radiology Flouroscopy Fluoroscopy Used? No Fluoro Dose (mGy) 0 Fluoro Time 0 Radiology Local Local Used? Yes Local Type: lidocaine 2% Local Dose 20ml Radiology Procedure Site Site/Location r abdomen Site Condition No complications Dressing Type Bandaids Technologist Notes successful liver biopsy patient tolerated gel foam and embo cube used [id number] Last Modified By: MELA Hooks 07/16/24 09:55:28 Cultures and Specimens- IR Entry 1 Kind Specimen Type Mass Date/Time 07/16/24 09:44:00 Source r abdomen liver x 8 core Last Modified By: MELA Hooks 07/16/24 09:47:11 General Case Data - IR Entry 1 Case Information Room AH IR CT Case Level IR Level 2 Wound Class None Specialty SN Radiology Procedure ASA Class None Diagnosis Preop Diagnosis liver mass Postop Same As Preop Yes Postop Diagnosis liver mass Last Modified By: MELA Hooks 07/16/24 08:00:06 Medication Administration- IR Entry 1 Entry 2 Entry 3 Medication versed fentanyl bupivicaine with epi Time Administered 07/16/24 09:27:00 07/16/24 09:12:00 07/16/24 09:34:00 Route of Admin IV Push IV Push Local Dose 1mg 25mcg 20cc Volume 1 mL .5 mL 20 mL VORB * *Verbal Order Read Back (VORB) is required for NON- PHYSICIAN administration of medications. Administered by No No Yes Physician? Administered by: MELA Hooks RN Jennifer M KAR, MITRYAN MD Verbal Order Read REBECA, KENAN JOSE, KENAN EDWARD Back from: Last Modified By: MELA Hooks RN Jennifer M Fichter, RN Jennifer M 07/16/24 09:28:45 07/16/24 09:28:45 07/16/24 09:53:49 Entry 4 Entry 5 Entry 6 Medication versed benadryl versed Time Administered 07/16/24 09:12:00 07/16/24 09:11:00 07/16/24 09:37:00 Route of Admin IV Push IV Push IV Push Dose 1mg 50mg 1mg Volume 1 mL 1 mL 1 mL VORB * *Verbal Order Read Back (VORB) is required for NON- PHYSICIAN administration of medications. Administered by No No No Physician? Administered by: MELA Hooks RN Jennifer M Fichter, RN Jennifer M Verbal Order Read KENAN JOSE MD, MITRYAN MD KAR, MITRYAN MD Back from: Last Modified By: MELA Hooks RN Jennifer M Fichter, RN Rosa M 07/16/24 09:28:45 07/16/24 09:34:57 07/16/24 09:41:42 Entry 7 Entry 8 Medication versed fentanyl Time Administered 07/16/24 09:44:00 07/16/24 09:44:00 Route of Admin IV Push IV Push Dose 1mg 25mcg Volume 1 mL .5 mL VORB * *Verbal Order Read Back (VORB) is required for NON- PHYSICIAN administration of medications. Administered by No No Physician? Administered by: MELA Hooks RN Jennifer M Verbal Order Read KENAN JOSE MD, MITRYAN MD Back from: Last Modified By: MELA Hooks RN Jennifer M 07/16/24 09:46:47 07/16/24 09:46:47 Procedure Case Times- IR Entry 1 Patient In Procedure Patient In OR 07/16/24 09:10:00 Patient Out of OR 07/16/24 10:05:00 Procedure Start/Stop Procedure Start Time 07/16/24 09:12:00 Procedure Stop Time 07/16/24 09:55:00 Last Modified By: MELA Hooks 07/16/24 10:06:47 Immediate Post OP Note - IR Entry 1 Immediate Post Yes Findings 8x18G cores of seg 02/02 Procedure Note mass; gelfoam displayed for embolized; no immediate Physician to review hematoma Closure Technique Closure Technique Other than Primary Last Modified By: MELA Hooks 07/16/24 09:58:22 Immediate Post OP Note - IR Signed By: KENAN JOSE MD 07/16/24 09:57 Allergy Information- IR Entry 1 Allergies Reviewed? Yes Allergies Reviewed Medical Record With Last Modified By: MELA Hooks 07/16/24 07:54:53 Radiology Protocols/Time Out- IR Entry 1 Preprocedure Clinician Verifies Correct patient ID When Clinically Consent for using name & date Indicated Administration of or MRN, Accurate Blood, Confirmation of procedure, complete correct side(s) and Informed Consent, H & P site(s), Correct update immediately diagnostic and prior to procedure, if radiology tests applicable, Clinical available, Required team introduction blood products, complete implants, devices and/or special equipment available, Preop antibiotics sent with patient/available in OR OR/Procedure Room/Bedside Time 07/16/24 09:11:00 Clinician Verifies Correct patient identity including EMR & records using name and date or medical record number, Accurate procedure consent form, Correct patient position, Necessary equipment is available, Anticipated non-routine events with surgical team (case duration, estimated blood loss, patient specific concerns)., Amaya patient factors for recovery and management identified with surgical team. When Applicable Consent for Team Members KENAN JOSE MD, Car, Administration of Present for Time Out Substitute Crossing Guard Lianna A, Blood, Confirmation MELA Hooks correct side and site marked, Relevant images and results are properly labeled and appropriately displayed, Confirm/obtain preop antibiotic order., Alcohol based prep dry, Double verification of sterility indicators complete Instrument Sterility Team Members KENAN JOSE MD, Car, Verifying Sterility Substitute Crossing Guard Lianna A Procedure IR Biopsy Liver SN Last Modified By: MELA Hooks 07/16/24 09:14:26 Skin Prep- IR Entry 1 Procedure IR Biopsy Liver SN Skin Prep Prep Area Abdomen Side Right By KENAN JOSE MD Prep Agents Chloraprep Hair Removal Method N/A Last Modified By: MELA Hooks 07/16/24 09:29:15 Patient Positioning- IR Entry 1 Procedure IR Biopsy Liver SN Body Position OP Supine Feet Uncrossed? Yes Pressure Points Yes Checked Last Modified By: MELA Hooks 07/16/24 09:41:51 Radiology Procedure Plan - IR Entry 1 Radiology - Nursing Care Plan Outcome Statement The patient Outcome Statement The patient receives demonstrates knowledge Cont. appropriate of the expected medication(s), safely responses to the administered during the operative/invasive perioperative/invasive procedure., The period., The patient is patient's value system, free from signs and lifestyle, ethnicity, symptoms of injury and culture are caused by extraneous considered, respected, objects (equipment, and incorporated in the instrumentation, perioperative plan of sponges, or sharps)., care., The patient is The patient is free free from signs and from signs and symptoms symptoms of infection., of electrical injury., The patient is free The patient is at or from signs and symptoms returning to of injury related to normothermia at the positioning., The conclusion of the patient is free from immediate signs and symptoms of postoperative/invasive chemical injury. period., The patient is free from signs and symptoms of laser injury. Radiology - Action Plan Outcomes Met? 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 MELA Hooks Completing Procedure Plan Last Modified By: MELA Hooks 07/16/24 07:59:09 Transfer Post Procedure- IR Entry 1 RAD - Transport to Recovery Patient Transported IV Via Cart With Post-op Destination Receiving Transported By MELA Hooks, Abraham Yoon Post Procedure Time Out Double Verification Yes Date/Time Verified 07/16/24 10:05:00 of ID band on patient Completed Verfied ID Band on MELA Hooks, by Abraham Yoon Last Modified By: MELA Hooks 07/16/24 10:06:56 Case Comments Finalized By: MELA Hooks Document Signatures Signed By: MELA Hooks 07/16/24 10:07 [id number] History and physical note IR PREPROCEDURE H&P UPDATE IF A HISTORY AND PHYSICAL EXAMINATION HAS BEEN COMPLETED PRIOR TO ADMISSION TO THE HOSPITAL, AN UPDATED EXAMINATION MUST BE COMPLETED AND DOCUMENTED WITHIN 24 HOURS AFTER ADMISSION OR REGISTRATION BUT BEFORE A SURGICAL PROCEDURE. I have examined the patient, reviewed the H&P, and there are no changes unless noted below: _ The most recent H&P/Office Note has been performed on 07/10/2024 and can be found on paper, which has been scanned into the [facility] PACS/RIS system. _ Digitally Signed by JAMI MUÑOZ PA-C on 07/16/2024 07:51 AM Digitally Signed by KENAN JOSE MD on 07/16/2024 11:17 AM [id number] Evaluation + Plan note Future Scheduled Tests Radiology* IR Biopsy Liver 06/19/24 * CT Thorax w/ Contrast 06/17/24 * CT Abdomen and Pelvis w/ contrast 06/17/24 * CT Abdomen and Pelvis w/ contrast 03/27/24 * US Renal 04/13/24 [facility] 10-16-2024 Note* MELA Mahan: SIGN, AUTHOR, PERFORM Event Display: IR Procedure Record Authored Date: [id number] IR Procedure Record Summary Primary Physician: JODI TREVINO MD Finalized Date/Time: 04/15/24 14:37:39 Pt. Name: CLARISSE PEGUERO /Sex: 1980 Female Med Rec #: [id number] Physician: Financial #: [id number] Pt. 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 1 Details Time In 04/15/24 14:29:00 04/15/24 14:05:00 04/15/24 14:05:00 Time Out 04/15/24 14:39:00 04/15/24 14:39:00 04/15/24 14:39:00 Procedure/Preference IR Drainage Cath IR Drainage Cath IR Drainage Cath Card Injection for Eval SN Injection for Eval SN Injection for Eval SN Last Modified By: MELA Mahan RN Melanie L Lee, RN Melanie L 04/15/24 14:37:01 04/15/24 14:37:01 04/15/24 14:37:01 Entry 4 Case Attendee Abraham Perera Role Performed Circulating Technologist Details Time In 04/15/24 14:05:00 Time Out 04/15/24 14:39:00 Procedure/Preference IR Drainage Cath Card Injection for Eval SN Last Modified By: MELA Mahan 04/15/24 14:37:01 Radiology Procedures- IR Entry 1 Procedure/Preference IR Drainage Cath Actual Procedure IR Drain Eval Card Injection for Eval SN Primary Procedure Yes Primary Surgeon JODI TREVINO MD Anesthesia/Sedation None Type Additional Procedure Times Start 04/15/24 14:29:00 Stop 04/15/24 14:33:00 Specialty Service SN Radiology Procedure EBL 0 mL Last Modified By: MELA Mahan 04/15/24 14:36:18 Radiology Procedure Details - IR Entry 1 Radiology Sedation Case Times Sedation Total Time 0 Radiology - Fluid/Drainage Radiology Contrast Contrast Used? Yes Dose 2 mL Medication OMNIPAQUE 350 50ML 10/PK Y-[address] [facility] 1549-7521-75 Radiology Flouroscopy Fluoroscopy Used? Yes Fluoro Dose (mGy) 71.10 Fluoro Time 0.4MINS Radiology Local Local Used? No Radiology Procedure Site Site/Location RIGHT BUTTOCK Site Condition No complications Suture 2.0 Ethilon Suture Dressing Type Gauze sponge 4 X 4, Transparent Technologist Notes DRAIN REMOVAL Last Modified By: MELA Mahan 04/15/24 14:36:59 General Case Data - IR Entry 1 Case Information Room AH IR 17 Case Level IR Level 1 Wound Class None Specialty SN Radiology Procedure ASA Class None Diagnosis Preop Diagnosis HEALING DIVERTICULAR Postop Same As Preop Yes ABSCESS Postop Diagnosis HEALING DIVERTICULAR ABSCESS Last Modified By: MELA Mahan 04/15/24 14:23:47 Procedure Case Times- IR Entry 1 Patient In Procedure Patient In OR 04/15/24 14:05:00 Patient Out of OR 04/15/24 14:39:00 Procedure Start/Stop Procedure Start Time 04/15/24 14:29:00 Procedure Stop Time 04/15/24 14:33:00 Last Modified By: MELA Mahan 04/15/24 14:36:17 Immediate Post OP Note - IR Entry 1 Immediate Post Yes Procedure Note displayed for Physician to review Closure Technique Closure Technique Other than Primary Last Modified By: MELA Mahan 04/15/24 14:21:54 Immediate Post OP Note - IR Signed By: JODI TREVINO MD 04/15/24 14:34 Allergy Information- IR Entry 1 Allergies Reviewed? Yes Allergies Reviewed Medical Record With Last Modified By: MELA Mahan 04/15/24 14:11:58 Radiology Protocols/Time Out- IR Entry 1 Preprocedure Clinician Verifies Correct patient ID When Clinically Confirmation of correct using name & date Indicated side(s) and site(s), or MRN, Accurate Correct diagnostic and procedure, complete radiology tests Informed Consent, H & P available, Required update immediately blood products, prior to procedure, if implants, devices applicable and/or special equipment available OR/Procedure Room/Bedside Time 04/15/24 14:29:00 Clinician Verifies Correct patient identity including EMR & records using name and date or medical record number, Accurate procedure consent form, Correct patient position, Necessary equipment is available, Anticipated non-routine events with surgical team (case duration, estimated blood loss, patient specific concerns)., Amaya patient factors for recovery and management identified with surgical team. When Applicable Confirmation correct Team Members JODI TREVINO MD, side and site marked, Present for Time Out [place], Relevant images and MELA Mahan, results are properly [place], Substitute Crossing Guard Kerry A labeled and appropriately displayed, Alcohol based prep dry Instrument Sterility Procedure IR Drainage Cath Injection for Eval SN Last Modified By: MELA Mahan 04/15/24 14:30:12 Skin Prep- IR Entry 1 Procedure IR Drainage Cath Injection for Eval SN Skin Prep Prep Area Buttock Side Right By [place] Prep Agents Chloraprep Hair Removal Method N/A Last Modified By: MELA Mahan 04/15/24 14:30:55 Patient Positioning- IR Entry 1 Procedure IR Drainage Cath Body Position OP Prone Injection for Eval SN Feet Uncrossed? Yes Pressure Points Yes Checked Last Modified By: MELA Mahan 04/15/24 14:30:54 Radiology Procedure Plan - IR Entry 1 Radiology - Nursing Care Plan Outcome Statement The patient Outcome Statement The patient receives demonstrates knowledge Cont. appropriate of the expected medication(s), safely responses to the administered during the operative/invasive perioperative/invasive procedure., The period., The patient is patient's value system, free from signs and lifestyle, ethnicity, symptoms of injury and culture are caused by extraneous considered, respected, objects (equipment, and incorporated in the instrumentation, perioperative plan of sponges, or sharps). care., The patient is free from signs and symptoms of infection., The patient is free from signs and symptoms of injury related to positioning. Radiology - Action Plan Outcomes Met? 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 MELA Mahan Completing Procedure Plan Last Modified By: MELA Mahan 04/15/24 14:23:28 Case Comments <None> Finalized By: MELA Mahan Document Signatures Signed By: MELA Mahan 04/15/24 14:37 [facility] 10-16-2024 Hospital Discharge instructions Patient Education 04/15/2024 14:35:22 Radiology- Procedure/Biopsy 04/10/2024(CUSTOM) [facility] Radiology Procedure/Biopsy Discharge Instructions Interventional Radiology [facility] [address] [address] Today, you had a . This procedure/biopsy was done to help your doctor diagnose and treat the signs and symptoms you have been experiencing. These instructions should be followed after your procedure to reduce the chance of experiencing complications. Please follow the instructions below to reduce the chance of experiencing complications. Diet: Resume your normal diet as tolerated. Drink extra fluids. Activity: Rest for the remainder of the day. You may resume your normal activity tomorrow. You may bathe/shower after 24 hours. Do not soak or submerge site (including swimming or hot tubs) until a scab forms. No heavy lifting, pushing, or straining. Dressing: Check the site for bleeding. Apply pressure to the site if bleeding excessively and call your physician. Change the band aid as needed; it can be removed after 24 hours. Keep the site dry at all times until a scab forms over the site. Pain Control: The puncture site may be sore for 1 to 2 days following the procedure. Paay-set-bahrazz pain medication should be used for pain or discomfort. Please check with the physician who ordered this procedure for you for their specific recommendations. If your pain is not relieved or becomes more severe, notify the physician who sent you for this procedure. If you were sedated for this procedure: Avoid alcoholic beverages for 24 hours after your procedure. Do not drive or operate heavy machinery for 24 hours after your procedure. Do not make any legal decisions for 24 hours after your procedure. Medication: Please resume on . When to seek medical help: Lightheadedness, dizziness, or fainting. Severe pain or swelling. Severe nausea or vomiting. Infection: fever greater than 101 degrees, chills, redness, warmth, swelling, bleeding, or pus frompuncture site. If you experience any of these issues during the first 24 hours, please follow the instruction below: 8:00 am- 5:00 pm call [phone] After 24 hours, contact the physician who ordered this procedure for you. Obtaining test results: Please make an appointment with your doctor to obtain your test results. They are usually availablewithin 4 to 7 business days. Do not assume everything is normal if you have not heard from your doctor or medical facility. It is important for you to follow up on all of your test results. Special Instructions: Follow Up Care 04/04/2024 22:36:55 With:Follow up with primary care provider Address:Unknown When: Unknown [facility] 10-16-2024 Note IR Procedure Record Summary Primary Physician: JODI TREVINO MD Finalized Date/Time: 04/15/24 14:37:39 Pt. Name: CLARISSE PEGUERO/Sex: 1980 Female Med Rec #: [id number] Physician: Financial #: [id number] Pt. 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 1 Details Time In 04/15/24 14:29:00 04/15/24 14:05:00 04/15/24 14:05:00 Time Out 04/15/24 14:39:00 04/15/24 14:39:00 04/15/24 14:39:00 Procedure/Preference IR Drainage Cath IR Drainage Cath IR Drainage Cath Card Injection for Eval SN Injection for Eval SN Injection for Eval SN Last Modified By: MELA Mahan RN Melanie L Lee, RN Melanie L 04/15/24 14:37:01 04/15/24 14:37:01 04/15/24 14:37:01 Entry 4 Case Attendee Abraham Perera Role Performed Circulating Technologist Details Time In 04/15/24 14:05:00 Time Out 04/15/24 14:39:00 Procedure/Preference IR Drainage Cath Card Injection for Eval SN Last Modified By: MELA Mahan 04/15/24 14:37:01 Radiology Procedures- IR Entry 1 Procedure/Preference IR Drainage Cath Actual Procedure IR Drain Eval Card Injection for Eval SN Primary Procedure Yes Primary Surgeon JODI TREVINO MD Anesthesia/Sedation None Type Additional Procedure Times Start 04/15/24 14:29:00 Stop 04/15/24 14:33:00 Specialty Service SN Radiology Procedure EBL 0 mL Last Modified By: MELA Mahan 04/15/24 14:36:18 Radiology Procedure Details - IR Entry 1 Radiology Sedation Case Times Sedation Total Time 0 Radiology - Fluid/Drainage Radiology Contrast Contrast Used? Yes Dose 2 mL Medication OMNIPAQUE 350 50ML Y-[address] [facility] 7518-8762-56 Radiology Flouroscopy Fluoroscopy Used? Yes Fluoro Dose (mGy) 71.10 Fluoro Time 0.4MINS Radiology Local Local Used? No Radiology Procedure Site Site/Location RIGHT BUTTOCK Site Condition No complications Suture 2.0 Ethilon Suture Dressing Type Gauze sponge 4 X 4, Transparent Technologist Notes DRAIN REMOVAL Last Modified By: MELA Mahan 04/15/24 14:36:59 General Case Data - IR Entry 1 Case Information Room AH IR 17 Case Level IR Level 1 Wound Class None Specialty SN Radiology Procedure ASA Class None Diagnosis Preop Diagnosis HEALING DIVERTICULAR Postop Same As Preop Yes ABSCESS Postop Diagnosis HEALING DIVERTICULAR ABSCESS Last Modified By: MELA Mahan 04/15/24 14:23:47 Procedure Case Times- IR Entry 1 Patient In Procedure Patient In OR 04/15/24 14:05:00 Patient Out of OR 04/15/24 14:39:00 Procedure Start/Stop Procedure Start Time 04/15/24 14:29:00 Procedure Stop Time 04/15/24 14:33:00 Last Modified By: MELA Mahan 04/15/24 14:36:17 Immediate Post OP Note - IR Entry 1 Immediate Post Yes Procedure Note displayed for Physician to review Closure Technique Closure Technique Other than Primary Last Modified By: MELA Mahan 04/15/24 14:21:54 Immediate Post OP Note - IR Signed By: JODI TREVINO MD 04/15/24 14:34 Allergy Information- IR Entry 1 Allergies Reviewed? Yes Allergies Reviewed Medical Record With Last Modified By: MELA Mahan 04/15/24 14:11:58 Radiology Protocols/Time Out- IR Entry 1 Preprocedure Clinician Verifies Correct patient ID When Clinically Confirmation of correct using name & date Indicated side(s) and site(s), or MRN, Accurate Correct diagnostic and procedure, complete radiology tests Informed Consent, H & P available, Required update immediately blood products, prior to procedure, if implants, devices applicable and/or special equipment available OR/Procedure Room/Bedside Time 04/15/24 14:29:00 Clinician Verifies Correct patient identity including EMR & records using name and date or medical record number, Accurate procedure consent form, Correct patient position, Necessary equipment is available, Anticipated non-routine events with surgical team (case duration, estimated blood loss, patient specific concerns)., Amaya patient factors for recovery and management identified with surgical team. When Applicable Confirmation correct Team Members JODI TREVINO MD, side and site marked, Present for Time Out [place], Relevant images and MELA Mahan, results are properly [place], Substitute Crossing Guard Kerry A labeled and appropriately displayed, Alcohol based prep dry Instrument Sterility Procedure IR Drainage Cath Injection for Eval SN Last Modified By: MELA Mahan 04/15/24 14:30:12 Skin Prep- IR Entry 1 Procedure IR Drainage Cath Injection for Eval SN Skin Prep Prep Area Buttock Side Right By [place] Prep Agents Chloraprep Hair Removal Method N/A Last Modified By: MELA Mahan 04/15/24 14:30:55 Patient Positioning- IR Entry 1 Procedure IR Drainage Cath Body Position OP Prone Injection for Eval SN Feet Uncrossed? Yes Pressure Points Yes Checked Last Modified By: MELA Mahan 04/15/24 14:30:54 Radiology Procedure Plan - IR Entry 1 Radiology - Nursing Care Plan Outcome Statement The patient Outcome Statement The patient receives demonstrates knowledge Cont. appropriate of the expected medication(s), safely responses to the administered during the operative/invasive perioperative/invasive procedure., The period., The patient is patient's value system, free from signs and lifestyle, ethnicity, symptoms of injury and culture are caused by extraneous considered, respected, objects (equipment, and incorporated in the instrumentation, perioperative plan of sponges, or sharps). care., The patient is free from signs and symptoms of infection., The patient is free from signs and symptoms of injury related to positioning. Radiology - Action Plan Outcomes Met? 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 MELA Mahan Completing Procedure Plan Last Modified By: MELA Mahan 04/15/24 14:23:28 Case Comments Finalized By: MELA Mahan Document Signatures Signed By: MELA Mahan 04/15/24 14:37 [id number] Summary of episode note Discharge Instructions Thank you for allowing [facility] to assist you with your healthcare needs. The following is importantdischarge information regarding your hospital visit. Your Care Team ABDULKADIR ROSALES PA-C What to do next Scheduled Follow-Up Appointments Appointment Type When With Where Contact Information StatusGS OV Check after Test 05/05/2024 08:15 AM ARLENE BRANNON MD [facility] Confirmed Follow Up Appointments Follow Up with Follow up with primary care provider The Following Activity and Diet Have Been Ordered for You No qualifying data available. No qualifying data available. The Following Equipment Has Been Ordered for You No qualifying data available. The Following Treatments Have Been Ordered for You Discharge Labs No qualifying data available. Discharge Radiology No qualifying data available. Other Therapies No qualifying data available. Post Acute Orders No qualifying data available. Someone Will Contact You Regarding These Home Health Referrals No home referrals have been ordered for you. No one will call you. Allergies NKA Medications Please ask your primary doctor or pharmacist before taking any other medication not listed, including over the counter drugs, herbal medications, vitamins and or supplements as they may interact withyour home medications. What How Much When Instructions Last Dose Unchanged cefdinir (cefdinir 300 mg oral capsule) 1 cap Unchanged herbal/ nutritional product (Probiotic) Unchanged metroNIDAZOLE (metroNIDAZOLE 500 mg oral tablet) 1 tab(s) Unchanged omeprazole (omeprazole 20 mg oral delayed release capsule) 1 cap by mouth Once a day Please take this list to your next doctor s visit. Bring all medications you take, including over the counter medications, herbals and other supplements with you to your doctor s visit. Patients and families are reminded to discard old lists and to update any records with all medication providers or retail pharmacies. Education Materials [facility] Radiology Procedure/Biopsy Discharge Instructions Interventional Radiology [facility] [address] [place] [address] Today, you had a . This procedure/biopsy was done to help your doctor diagnose and treat the signs and symptoms you have been experiencing. These instructions should be followed after your procedure to reduce the chance of experiencing complications. Please follow the instructions below to reduce the chance of experiencing complications. Diet: Resume your normal diet as tolerated. Drink extra fluids. Activity: Rest for the remainder of the day. You may resume your normal activity tomorrow. You may bathe/shower after 24 hours. Do not soak or submerge site (including swimming or hot tubs) until a scab forms. No heavy lifting, pushing, or straining. Dressing: Check the site for bleeding. Apply pressure to the site if bleeding excessively and call your physician. Change the band aid as needed; it can be removed after 24 hours. Keep the site dry at all times until a scab forms over the site. Pain Control: The puncture site may be sore for 1 to 2 days following the procedure. Iapt-csk-yrfhulz pain medication should be used for pain or discomfort. Please check with the physician who ordered this procedure for you for their specific recommendations. If your pain is not relieved or becomes more severe, notify the physician who sent you for this procedure. If you were sedated for this procedure: Avoid alcoholic beverages for 24 hours after your procedure. Do not drive or operate heavy machinery for 24 hours after your procedure. Do not make any legal decisions for 24 hours after your procedure. Medication: Please resume on . When to seek medical help: Lightheadedness, dizziness, or fainting. Severe pain or swelling. Severe nausea or vomiting. Infection: fever greater than 101 degrees, chills, redness, warmth, swelling, bleeding, or pus frompuncture site. If you experience any of these issues during the first 24 hours, please follow the instruction below: 8:00 am- 5:00 pm call [phone] After 24 hours, contact the physician who ordered this procedure for you. Obtaining test results: Please make an appointment with your doctor to obtain your test results. They are usually availablewithin 4 to 7 business days. Do not assume everything is normal if you have not heard from your doctor or medical facility. It is important for you to follow up on all of your test results. Special Instructions: Additional Information VACCINATE! IT SAVES LIVES! Members of the community who have not yet received the COVID-19 vaccine and would like to receive it can visit one of [facility] vaccine clinics. There are many vaccine clinic locations within the [facility]. For locations and available times, please visit [email or web address].[place].gov/. It is important to note that some COVID mobile vaccine clinics are held outdoors and may be canceled in rainy or stormy conditions. To learn more about pediatric vaccinations (ages 5-11), we invite you to visit the [facility] webpage. [email or web address].[email or web address]/pages/[email or web address]-Udvyi-Ghbcemnuedy-Hfvwckcjlg-Bdihf-Ued stions.htmlTo learn more about the COVID-19 vaccine, we invite you to visit the CDC website for a list of frequently asked questions.https://www.cdc.gov/coronavirus/2019-ncov/vaccines/faq.html [employer] Patient Portal Access Instructions: Stay connected with your healthcare team and access your personal medical information anytime with the [employer] Patient Portal. Please follow the directions below to create your [employer] account: 1.Access the email account you provided upon registration to the hospital/physician office.2.Look for an invitation email from [facility].3.Open the email and access the invitation link: AcceptInvitation to [employer].4.Fill in the required wetzel to create your account. To access your account, visit [employer]. Click the blue button labeled Access Patient Portal and then log in with the username and password that you created in the steps above. You will be able to view your test results, lab results, a summary of your visits, upcoming appointments and more. There is also a convenient messaging option where you can send secure messages to your p rovider. In addition, you will have the ability to download any documents or summaries to your computer and/or send the information securely to a physician. Remember that your healthcare information is confidential, so carefully consider who you will allowto register on the [facility] [employer] Patient Portal for access to your information. You can also access the [facility] Patient Portal on the [facility] [employer] [employer]zia. Simply click on Patient Portal and then log into your account. If you would like to receive a full copy of your medical records, please contact the [facility] Medical Records Department by calling [phone], Saturday through Saturday between 8 a.m. and 4:30 p.m. HOW TO SAFELY DISPOSE OF PRESCRIPTION MEDICATIONS Please use one of the following methods to safely dispose of your unused medications. 1.Use a drug disposal kit: the drug disposal pouch allows you to safely discard your old and unuseddrugs. Ask your nurse to give you one when you are discharged.2.Visit a local take-back location: Many local pharmacies and police departments have programs that collect old and unwanted prescriptiondrugs. Call your local pharmacy or go to http://nooked.[employer] Tal[employer] Track/3Q5Qq4f to find one close to you.3.Make use of household items: Use cat litter or old coffee grounds to dispose medications if other options arenot available. Mix your drugs with these household products, seal them in an airtight container andthrow it into the garbage. Call [facility]: [phone] to be sure your drugs can be disposed of in this way. Some medicines may require a different approach.4.Never flush your medications down the toilet. IF YOU HAVE BEEN PRESCRIBED AN OPIOID FOR PAIN If you have been prescribed an opioid (such as hydrocodone, oxycodone or morphine), it is critical to understand the possible side effects and risks of opioid pain medications. Even when taken as directed, opioids can have several side effects including: Tolerance, meaning you might need to take more of a medication for the same pain relief. Nausea, vomiting and/or constipation. Sleepiness, dizziness, dry mouth, confusion, depression or itching. Physical dependence, meaning you have withdrawal symptoms when a medication is stopped, can develop within a few days. KNOW YOUR RESPONSIBILITIES It is important to know exactly how much and how often to take the opioid pain medications you are prescribed. Never take opioids in higher amounts or more often than prescribed. Do not combine opioids with alcohol or other drugs that cause drowsiness, such as benzodiazepines, also known as benzos, including diazepam and alprazolam, muscle relaxants or sleep aids. Never sell or share prescription opioids. This is illegal. Store opioids in a secure place and out of reach of others (including children, family, friends and visitors). The last page of this document has been signed and retained as a CHART COPY. Signatures Patient Education Materials Radiology- Procedure/Biopsy 04/10/2024(CUSTOM) Medication Leaflets My discharge plan and instructions have been reviewed and explained to me and I,CLARISSE PEGUERO understand my current condition and have read and understand these discharge instructions. I have received a written copy of the plan/instructions. If I have questions, I am aware that I should contact my d octor. 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: Date/Time: Relationship to Patient: Witness Name/Signature: Date[facility]Time: [id number] Evaluation + Plan noteExtracted from: Title:IR Pre-Procedure H&P Author:ADELAIDE DONOVAN PA-C Date:04/15/24 Interventional Radiology Focused Preprocedure History/Physical Reason for Visit healing diverticular abscess History of Presenting Illness/Planned IR Procedure Hx diverticular abscess with fistula. Presents for drainage catheter evaluation. Allergies (1) ActiveSeverityReaction NKANone Documented Home Medications (4) Active cefdinir 300 mg oral capsule 300 mg = 1 cap(s) metroNIDAZOLE 500 mg oral tablet 500 mg = 1 tab(s) omeprazole 20 mg oral delayed release capsule 20 mg = 1 cap(s), Oral, qDay Probiotic Problem List/Past Medical History Diverticulitis Heartburn History of DVT of lower extremity Hydronephrosis, right Surgical History None Family History Mother: High blood pressure Father: DVT - Deep vein thrombosis; Diabetes mellitus Grandparent: Diabetes mellitus; High blood pressure Social History Alcohol Details: Use: Never. Substance Abuse Details: Use: Never. Tobacco Details: Nicotine Use: Never (less than 100 in lifetime), denies. Physical Exam Vitals: Etsjfpggiwi44.7 (13:27) Systolic Blood Caotfsje731 (13:27) Diastolic Blood Pquwruhh24 (13:27) Pulse78 (13:27) OkM717 (13:27) Respiratory RateNo result General: Alert, cooperative. _ The remainder of the physical exam is noncontributory. Labs Anticoagulation Labs No qualifying data available. Last Month Basic Metabolic Panel: Hematology: Sodium Level: 139 (04/02/24) Hgb: 11.1 (04/02/24) Potassium Level: 3.9 (04/02/24) : () Phosphorus: ------ WBC: 3.8 (04/02/24) Magnesium Lvl: ------ Platelet: 223 (04/02/24) BUN: 8.0 (04/02/24) PT International Ratio: ------ Creatinine Lvl (s): 0.47 (04/02/24) : () Additional - Last Month A/G Ratio: 0.9 (04/02/24) Albumin Level: 3.1 (04/02/24) Alk Phos: 65 (04/02/24) ALT/SGPT: 56 (04/02/24) Anisocytosis: 3+ (04/02/24) AST/SGOT: 44 (04/02/24) Basophil %: 0.4 (04/02/24) Basophil, Absolute: 0.0 (04/02/24) Bili Total: 0.70 (04/02/24) BUN/Creatinine Ratio: 17.0 (04/02/24) Calcium Lvl: 8.9 (04/02/24) Chloride: 108 (04/02/24) CO2: 24 (04/02/24) Electrolyte Balance: 7.0 (04/02/24) Eosinophil %: 1.7 (04/02/24) Eosinophil, Absolute: 0.1 (04/02/24) GFR : >60 (04/02/24) GFR Non-: >60 (04/02/24) Globulin: 3.6 (04/02/24) Glucose Level: 89 (04/02/24) Hct: 35.2 (04/02/24) Lymphocyte %: 38.6 (04/02/24) Lymphocyte, Absolute: 1.4 (04/02/24) MCH: 25.7 (04/02/24) MCHC: 31.7 (04/02/24) MCV: 81.3 (04/02/24) Monocyte %: 9.2 (04/02/24) Monocyte, Absolute: 0.3 (04/02/24) MPV: 9.4 (04/02/24) Neutrophil %: 50.1 (04/02/24) Neutrophil, Absolute: 1.9 (04/02/24) Platelet Estimate: Normal (04/02/24) Polychrom: 1+ (04/02/24) RBC: 4.32 (04/02/24) RDW: 30.5 (04/02/24) Total Protein: 6.7 (04/02/24) Assessment/Treatment Plan Drainage catheter evaluation with possible intervention Post Procedure Discharge Plan Patient to be discharged home. Polina Donovan PA-C Interventional Radiology Pager: [phone] IR dept: x [phone] Available on [employer] Future Appointments Appointment Date:05/05/2024 08:15:00 AM Scheduled Provider:ARLENE RODRIGEZ MD Location:Gen Surg [facility] Appointment Type:GS OV Check after Test Future Scheduled Tests Radiology* CT Abdomen and Pelvis w/ contrast 03/27/24 * US Renal 04/13/24 [facility] 10-16-2024 Note Interventional Radiology Focused Preprocedure History/Physical Reason for Visit healing diverticular abscess History of Presenting Illness/Planned IR Procedure Hx diverticular abscess with fistula. Presents for drainage catheter evaluation. Allergies (1) ActiveSeverityReaction NKANone Documented Home Medications (4) Active cefdinir 300 mg oral capsule 300 mg = 1 cap(s) metroNIDAZOLE 500 mg oral tablet 500 mg = 1 tab(s) omeprazole 20 mg oral delayed release capsule 20 mg = 1 cap(s), Oral, qDay Probiotic Problem List/Past Medical History Diverticulitis Heartburn History of DVT of lower extremity Hydronephrosis, right Surgical History None Family History Mother: High blood pressure Father: DVT - Deep vein thrombosis; Diabetes mellitus Grandparent: Diabetes mellitus; High blood pressure Social History Alcohol Details: Use: Never. Substance Abuse Details: Use: Never. Tobacco Details: Nicotine Use: Never (less than 100 in lifetime), denies. Physical Exam Vitals: Zzbahleibjs39.7 (13:27) Systolic Blood Ndxmnwis458 (13:27) Diastolic Blood Lkrrsksb19 (13:27) Pulse78 (13:27) KaI986 (13:27) Respiratory RateNo result General: Alert, cooperative. _ The remainder of the physical exam is noncontributory. Labs Anticoagulation Labs No qualifying data available. Last Month Basic Metabolic Panel: Hematology: Sodium Level: 139 (04/02/24) Hgb: 11.1 (04/02/24) Potassium Level: 3.9 (04/02/24) : () Phosphorus: ------ WBC: 3.8 (04/02/24) Magnesium Lvl: ------ Platelet: 223 (04/02/24) BUN: 8.0 (04/02/24) PT International Ratio: ------ Creatinine Lvl (s): 0.47 (04/02/24) : () Additional - Last Month A/G Ratio: 0.9 (04/02/24) Albumin Level: 3.1 (04/02/24) Alk Phos: 65 (04/02/24) ALT/SGPT: 56 (04/02/24) Anisocytosis: 3+ (04/02/24) AST/SGOT: 44 (04/02/24) Basophil %: 0.4 (04/02/24) Basophil, Absolute: 0.0 (04/02/24) Bili Total: 0.70 (04/02/24) BUN/Creatinine Ratio: 17.0 (04/02/24) Calcium Lvl: 8.9 (04/02/24) Chloride: 108 (04/02/24) CO2: 24 (04/02/24) Electrolyte Balance: 7.0 (04/02/24) Eosinophil %: 1.7 (04/02/24) Eosinophil, Absolute: 0.1 (04/02/24) GFR : >60 (04/02/24) GFR Non-: >60 (04/02/24) Globulin: 3.6 (04/02/24) Glucose Level: 89 (04/02/24) Hct: 35.2 (04/02/24) Lymphocyte %: 38.6 (04/02/24) Lymphocyte, Absolute: 1.4 (04/02/24) MCH: 25.7 (04/02/24) MCHC: 31.7 (04/02/24) MCV: 81.3 (04/02/24) Monocyte %: 9.2 (04/02/24) Monocyte, Absolute: 0.3 (04/02/24) MPV: 9.4 (04/02/24) Neutrophil %: 50.1 (04/02/24) Neutrophil, Absolute: 1.9 (04/02/24) Platelet Estimate: Normal (04/02/24) Polychrom: 1+ (04/02/24) RBC: 4.32 (04/02/24) RDW: 30.5 (04/02/24) Total Protein: 6.7 (04/02/24) Assessment/Treatment Plan Drainage catheter evaluation with possible intervention Post Procedure Discharge Plan Patient to be discharged home. Polina Donovan PA-C Interventional Radiology Pager: [phone] dept: [phone] Available on [employer] Digitally Signed by POLINA DONOVAN PA-C on 04/15/2024 01:56 PM Digitally Signed by JODI TREVINO MD on 04/15/2024 03:51 PM [id number] Evaluation + Plan noteExtracted from: Title:IR pre procedure H&P Author:ARCHIE MUÑOZ PA-C Date:04/02/24 IR PREPROCEDURE H&P UPDATE IF A HISTORY AND PHYSICAL EXAMINATION HAS BEEN COMPLETED PRIOR TO ADMISSION TO THE HOSPITAL, AN UPDATED EXAMINATION MUST BE COMPLETED AND DOCUMENTED WITHIN 24 HOURS AFTER ADMISSION OR REGISTRATION BUT BEFORE A SURGICAL PROCEDURE. I have examined the patient, reviewed the H&P, and there are no changes unless noted below: < 10 ml of output through diverticular abscess drainage catheter. The most recent H&P/Office Note has been performed on 03/09/2024 and can be found on paper, which has been scanned into the [facility] P[facility]IS system. _ Future Appointments Appointment Date:04/13/2024 01:20:00 PM Scheduled Provider:ROSA LOVE Location:UROLOGY Appointment Type:URO OV Appointment Date:04/15/2024 02:00:00 PM Scheduled Provider: Location:IR Appointment Type:IR Drainage Cath Injection for Eval Appointment Date:05/05/2024 08:15:00 AM Scheduled Provider:ARLENE RODRIGEZ MD Location:Gen Surg [facility] Appointment Type:GS OV Check after Test Future Scheduled Tests Radiology* CT Abdomen and Pelvis w/ contrast 03/27/24 * US Renal 04/13/24 [facility] 10-03-2024 Note* Santa Garcia RN: SIGN, AUTHOR, SIGN, AUTHOR, PERFORM Event Display: IR Procedure Record Authored Date: [id number] IR Procedure Record Summary Primary Physician: IRMA SHAH DO Finalized Date/Time: 04/02/24 11:33:38 Pt. Name: CLARISSE PEGUERO/Sex: 1980 Female Med Rec #: [id number] Physician: Financial #: [id number] Pt. Type: O Room/Bed: / Admit/Disch: 04/02/24 09:51:00 - Institution: Allergies identified in patient's electronic medical record at time of printing on 04/02/24 Entry 1 Substance NKA Reaction Type Allergy Last Modified By: Gisselle Hector RN 03/09/24 04:11:39 Case Attendance- IR Entry 1 Entry 2 Entry 3 Case Attendee IRMA SHAH Substitute Crossing GuardJames Beltre Role Performed Primary Surgeon Scrub Technologist Circulating Technologist Details Time In 04/02/24 10:44:00 04/02/24 10:44:00 04/02/24 10:44:00 Time Out 04/02/24 11:32:00 04/02/24 11:32:00 04/02/24 11:32:00 Procedure/Preference IR Drainage Cath IR Drainage Cath IR Drainage Cath Card Injection for Eval SN Injection for Eval SN Injection for Eval SN Last Modified By: Santa Garcia RN, Erin N RN Metzger, Erin N RN 04/02/24 11:27:30 04/02/24 11:27:30 04/02/24 11:27:30 Entry 4 Case Attendee Santa Garcia RN Role Performed Procedure Nurse Details Time In 04/02/24 10:44:00 Time Out 04/02/24 11:32:00 Procedure/Preference IR Drainage Cath Card Injection for Eval SN Last Modified By: Santa Garcia RN 04/02/24 11:27:30 Radiology Procedures- IR Entry 1 Procedure/Preference IR Drainage Cath Actual Procedure drain eval Card Injection for Eval SN Primary Procedure Yes Primary Surgeon IRMA SHAH DO Anesthesia/Sedation None Type Additional Procedure Times Start 04/02/24 11:22:00 Stop 04/02/24 11:27:00 Specialty Service SN Radiology Procedure EBL 0 mL Last Modified By: Santa Garcia RN 04/02/24 11:27:31 Radiology Procedure Details - IR Entry 1 Radiology Sedation Case Times Sedation Total Time 0 Radiology - Fluid/Drainage Radiology Contrast Contrast Used? Yes Dose 5 mL Medication ISOVUE 300 50ML 10/CA 1315-30 Radiology Flouroscopy Fluoroscopy Used? Yes Fluoro Dose (mGy) 30.75 Fluoro Time 1.3 mins Radiology Local Local Used? No Radiology Procedure Site Site/Location lower back Site Condition No complications Dressing Type Gauze sponge 4 X 4, Transparent Last Modified By: Santa Garcia RN 04/02/24 11:33:33 General Case Data - IR Entry 1 Case Information Room AH IR 17 Case Level IR Level 1 Wound Class None Specialty SN Radiology Procedure ASA Class None Diagnosis Preop Diagnosis right transgluteal Postop Same As Preop Yes drain for pelvic abscess Postop Diagnosis right transgluteal drain for pelvic abscess Last Modified By: Santa Garcia RN 04/02/24 10:46:53 Procedure Case Times- IR Entry 1 Patient In Procedure Patient In OR 04/02/24 10:44:00 Patient Out of OR 04/02/24 11:32:00 Procedure Start/Stop Procedure Start Time 04/02/24 11:22:00 Procedure Stop Time 04/02/24 11:27:00 Last Modified By: Santa Garcia RN 04/02/24 11:27:27 Immediate Post OP Note - IR Entry 1 Immediate Post Yes Procedure Note displayed for Physician to review Closure Technique Closure Technique Other than Primary Last Modified By: Santa Garcia RN 04/02/24 10:46:11 Immediate Post OP Note - IR Signed By: IRMA SHAH DO 04/02/24 11:28 Allergy Information- IR Entry 1 Allergies Reviewed? Yes Allergies Reviewed Patient With Last Modified By: Santa Garcia RN 04/02/24 10:43:43 Radiology Protocols/Time Out- IR Entry 1 Preprocedure Clinician Verifies Correct patient ID When Clinically Confirmation of correct using name & date Indicated side(s) and site(s), or MRN, Accurate Correct diagnostic and procedure, complete radiology tests Informed Consent, H & P available, Required update immediately blood products, prior to procedure, if implants, devices applicable, Sync button and/or special on equipment available OR/Procedure Room/Bedside Time 04/02/24 11:22:00 Clinician Verifies Correct patient identity including EMR & records using name and date or medical record number, Accurate procedure consent form, Correct patient position, Necessary equipment is available, Anticipated non-routine events with surgical team (case duration, estimated blood loss, patient specific concerns)., Amaya patient factors for recovery and management identified with surgical team. When Applicable Confirmation correct Team Members IRMA SHAH DO, side and site marked, Present for Time Out Abraham Perera Relevant images and A, James King G, results are properly Santa Garcia RN labeled and appropriately displayed, Alcohol based prep dry, Double verification of sterility indicators complete Instrument Sterility Team Members IRMA SHAH DO, Verifying Sterility Abraham Perera Procedure IR Drainage Cath Injection for Eval SN Last Modified By: Santa Garcia RN 04/02/24 11:22:37 Skin Prep- IR Entry 1 Procedure IR Drainage Cath Injection for Eval SN Skin Prep Prep Area Back Side Bilateral, Lower By Abraham Perera Prep Agents Chloraprep Hair Removal Method N/A Last Modified By: Santa Garcia RN 04/02/24 11:03:32 Patient Positioning- IR Entry 1 Procedure IR Drainage Cath Body Position OP Prone Injection for Eval SN Feet Uncrossed? Yes Pressure Points Yes Checked Last Modified By: Santa Garcia RN 04/02/24 10:46:07 Radiology Procedure Plan - IR Entry 1 Radiology - Nursing Care Plan Outcome Statement The patient Outcome Statement The patient receives demonstrates knowledge Cont. appropriate of the expected medication(s), safely responses to the administered during the operative/invasive perioperative/invasive procedure., The period., The patient is patient's value system, free from signs and lifestyle, ethnicity, symptoms of injury and culture are caused by extraneous considered, respected, objects (equipment, and incorporated in the instrumentation, perioperative plan of sponges, or sharps). care., The patient is free from signs and symptoms of infection., The patient is free from signs and symptoms of injury related to positioning. Radiology - Action Plan Outcomes Met? 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 Santa Garcia RN Completing Procedure Plan Last Modified By: Santa Garcia RN 04/02/24 10:46:28 Case Comments <None> Finalized By: Santa Garcia RN Document Signatures Signed By: Santa Garcia RN 04/02/24 11:33 Santa Garcia RN 04/02/24 11:33 [facility] 10-03-2024 Hospital Discharge instructions Patient Education 04/02/2024 10:49:55 Radiology- Procedure/Biopsy 10/14/2019 (CUSTOM) [facility] Radiology Procedure/Biopsy Discharge Instructions Interventional Radiology [facility] [address] [place] [address] Today, you had a drain evaluation. This procedure/biopsy was done to help your doctor diagnose and treat the signs and symptoms you have been experiencing. These instructions should be followed afteryour procedure to reduce the chance of experiencing complications. Please follow the instructions below to reduce the chance of experiencing complications. Diet: Resume your normal diet as tolerated. Drink extra fluids. Activity: Rest for the remainder of the day. You may resume your normal activity tomorrow. You may bathe/shower after 24 hours. Do not soak or submerge site (including swimming or hot tubs) until a scab forms. No heavy lifting, pushing, or straining. Dressing: Check the site for bleeding. Apply pressure to the site if bleeding excessively and call your physician. Change the band aid as needed; it can be removed after 24 hours. Keep the site dry at all times until a scab forms over the site. Pain Control: The puncture site may be sore for 1 to 2 days following the procedure. Zgmt-bcw-yikoybx pain medication should be used for pain or discomfort. Please check with the physician who ordered this procedure for you for their specific recommendations. If your pain is not relieved or becomes more severe, notify the physician who sent you for this procedure. If you were sedated for this procedure: Avoid alcoholic beverages for 24 hours after your procedure. Do not drive or operate heavy machinery for 24 hours after your procedure. Do not make any legal decisions for 24 hours after your procedure. Medication: Please resume on . When to seek medical help: Lightheadedness, dizziness, or fainting. Severe pain or swelling. Severe nausea or vomiting. Infection: fever greater than 101 degrees, chills, redness, warmth, swelling, bleeding, or pus frompuncture site. If you experience any of these issues during the first 24 hours, please follow the instruction below: 8:00 am- 5:00 pm call [phone] After 5:00 pm call [phone] After 24 hours, contact the physician who ordered this procedure for you. Obtaining test results: Please make an appointment with your doctor to obtain your test results. They are usually availablewithin 4 to 7 business days. Do not assume everything is normal if you have not heard from your doctor or medical facility. It is important for you to follow up on all of your test results. Special Instructions: Follow Up Care 03/23/2024 15:09:22 With:Follow up with primary care provider Address:Unknown When: Unknown [facility] 10-03-2024 Note ORIGINAL PROCEDURE: SPECIAL PROCEDURES 04/02/2024 HISTORY: ORDERING SYSTEM PROVIDED HISTORY: Reason for Exam: Right transgluteal drain for pelvic abscess; mostly resolved with small residual. Possible removal. Pt see's ID in [place] Apr 02 8:15am. TECHNIQUE: Local sterile field for procedure. Following informed consent, pause a confirm/time-out, patient is placed in prone position on fluoroscopic table. Previously placed external drainage catheter and entry site were prepped and draped in sterile fashion. Contrast injected under fluoroscopic observation. Agustin-Mott drainage bulb applied. Patient tolerated procedure well. CONTRAST: 5 mL Isovue 300 SEDATION: None FLUOROSCOPY DOSE AND TYPE: Radiation Exposure Index: Kerma 30.75 mGy, 1.3 minutes fluoroscopy time for procedure DESCRIPTION OF PROCEDURE: Informed consent was obtained after a detailed explanation of the procedure including risks, benefits, and alternatives. [place] protocol was observed. Sterile gowns, masks, hats and gloves utilized for maximal sterile barrier. As above in technique section FINDINGS: No significant interval change compared to 03/23/2024. 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 No definite bowel opacification. Catheter and Agustin-Mott drainage bulb maintained to allow for cavity closure. IMPRESSION: No significant radiographic change compared to 03/23/2024. 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 Catheter and Agustin-Mott drainage bulb maintained to allow for cavity closure. Interpreted by: Irma Shah DO Preliminary Report By: Irma Shah DO Electronically signed By Irma Shah DO Dictated Date: 04/02/2024 3:53:53 PM Prelim Date: 04/02/2024 3:56:31 PM Sign Date: 04/02/2024 3:56:31 PM Ordering Provider: [facility]10-03-2024 Procedure note Date of Service INTERVENTIONAL RADIOLOGY POST PROCEDURE NOTE Pre-Procedure Diagnosis: [ pelvic diverticular abscess with previously placed drain catheter] Post Procedure Diagnosis: Same. Acid Plant Helper: Dr. Irma Shah DO Procedure: [ catheter injection for evaluation] Anesthesia: [1% lidocaine without epinephrine] Findings: [persistent small cavity and fistula to pelvic mesentery. no definite communication with bowel noted. ] Estimated Blood Loss: Minimal (Less Than 10 mL). [ ] Specimen: None. Complications: None. Full report with procedural details to follow and will become available under the Radiology tab of Results Review. Please contact for any questions or concerns. _ Digitally Signed by IRMA SHAH DO on 04/02/2024 11:41 AM [id number] IR Procedure Record Summary Primary Physician: IRMA SHAH DO Finalized Date/Time: 04/02/24 11:33:38 Pt. Name: CLARISSE PEGUERO/Sex: 1980 Female Med Rec #: [id number] Physician: Financial #: [id number] Pt. Type: O Room/Bed: / Admit/Disch: 04/02/24 09:51:00 - Institution: Allergies identified in patient's electronic medical record at time of printing on 04/02/24 Entry 1 Substance NKA Reaction Type Allergy Last Modified By: Gisselle Hector RN 03/09/24 04:11:39 Case Attendance- IR Entry 1 Entry 2 Entry 3 Case Attendee IRMA SHAH DO Bolloelizabeth, Substitute Crossing GuardJames Beltre Role Performed Primary Surgeon Scrub Technologist Circulating Technologist Details Time In 04/02/24 10:44:00 04/02/24 10:44:00 04/02/24 10:44:00 Time Out 04/02/24 11:32:00 04/02/24 11:32:00 04/02/24 11:32:00 Procedure/Preference IR Drainage Cath IR Drainage Cath IR Drainage Cath Card Injection for Eval SN Injection for Eval SN Injection for Eval SN Last Modified By: Santa Garcia RN, Erin N RN Metzger, Erin N RN 04/02/24 11:27:30 04/02/24 11:27:30 04/02/24 11:27:30 Entry 4 Case Attendee Santa Garcia RN Role Performed Procedure Nurse Details Time In 04/02/24 10:44:00 Time Out 04/02/24 11:32:00 Procedure/Preference IR Drainage Cath Card Injection for Eval SN Last Modified By: Satna Garcia RN 04/02/24 11:27:30 Radiology Procedures- IR Entry 1 Procedure/Preference IR Drainage Cath Actual Procedure drain eval Card Injection for Eval SN Primary Procedure Yes Primary Surgeon IRMA SHAH DO Anesthesia/Sedation None Type Additional Procedure Times Start 04/02/24 11:22:00 Stop 04/02/24 11:27:00 Specialty Service SN Radiology Procedure EBL 0 mL Last Modified By: Santa Garcia RN 04/02/24 11:27:31 Radiology Procedure Details - IR Entry 1 Radiology Sedation Case Times Sedation Total Time 0 Radiology - Fluid/Drainage Radiology Contrast Contrast Used? Yes Dose 5 mL Medication ISOVUE 300 50ML 10/CA 1315-30 Radiology Flouroscopy Fluoroscopy Used? Yes Fluoro Dose (mGy) 30.75 Fluoro Time 1.3 mins Radiology Local Local Used? No Radiology Procedure Site Site/Location lower back Site Condition No complications Dressing Type Gauze sponge 4 X 4, Transparent Last Modified By: Santa Garcia RN 04/02/24 11:33:33 General Case Data - IR Entry 1 Case Information Room AH IR 17 Case Level IR Level 1 Wound Class None Specialty SN Radiology Procedure ASA Class None Diagnosis Preop Diagnosis right transgluteal Postop Same As Preop Yes drain for pelvic abscess Postop Diagnosis right transgluteal drain for pelvic abscess Last Modified By: Santa Garcia RN 04/02/24 10:46:53 Procedure Case Times- IR Entry 1 Patient In Procedure Patient In OR 04/02/24 10:44:00 Patient Out of OR 04/02/24 11:32:00 Procedure Start/Stop Procedure Start Time 04/02/24 11:22:00 Procedure Stop Time 04/02/24 11:27:00 Last Modified By: Santa Garcia RN 04/02/24 11:27:27 Immediate Post OP Note - IR Entry 1 Immediate Post Yes Procedure Note displayed for Physician to review Closure Technique Closure Technique Other than Primary Last Modified By: Santa Garcia RN 04/02/24 10:46:11 Immediate Post OP Note - IR Signed By: IRMA SHAH DO 04/02/24 11:28 Allergy Information- IR Entry 1 Allergies Reviewed? Yes Allergies Reviewed Patient With Last Modified By: Santa Garcia RN 04/02/24 10:43:43 Radiology Protocols/Time Out- IR Entry 1 Preprocedure Clinician Verifies Correct patient ID When Clinically Confirmation of correct using name & date Indicated side(s) and site(s), or MRN, Accurate Correct diagnostic and procedure, complete radiology tests Informed Consent, H & P available, Required update immediately blood products, prior to procedure, if implants, devices applicable, Sync button and/or special on equipment available OR/Procedure Room/Bedside Time 04/02/24 11:22:00 Clinician Verifies Correct patient identity including EMR & records using name and date or medical record number, Accurate procedure consent form, Correct patient position, Necessary equipment is available, Anticipated non-routine events with surgical team (case duration, estimated blood loss, patient specific concerns)., Amaya patient factors for recovery and management identified with surgical team. When Applicable Confirmation correct Team Members IRMA SHAH DO, side and site marked, Present for Time Out Abraham Perera Relevant images and A, James Kign G, results are properly Santa Garcia RN labeled and appropriately displayed, Alcohol based prep dry, Double verification of sterility indicators complete Instrument Sterility Team Members IRMA SHAH DO, Verifying Sterility Abraham Perera Procedure IR Drainage Cath Injection for Eval SN Last Modified By: Santa Garcia RN 04/02/24 11:22:37 Skin Prep- IR Entry 1 Procedure IR Drainage Cath Injection for Eval SN Skin Prep Prep Area Back Side Bilateral, Lower By Abraham Perera Prep Agents Chloraprep Hair Removal Method N/A Last Modified By: Santa Garcia RN 04/02/24 11:03:32 Patient Positioning- IR Entry 1 Procedure IR Drainage Cath Body Position OP Prone Injection for Eval SN Feet Uncrossed? Yes Pressure Points Yes Checked Last Modified By: Santa aGrcia RN 04/02/24 10:46:07 Radiology Procedure Plan - IR Entry 1 Radiology - Nursing Care Plan Outcome Statement The patient Outcome Statement The patient receives demonstrates knowledge Cont. appropriate of the expected medication(s), safely responses to the administered during the operative/invasive perioperative/invasive procedure., The period., The patient is patient's value system, free from signs and lifestyle, ethnicity, symptoms of injury and culture are caused by extraneous considered, respected, objects (equipment, and incorporated in the instrumentation, perioperative plan of sponges, or sharps). care., The patient is free from signs and symptoms of infection., The patient is free from signs and symptoms of injury related to positioning. Radiology - Action Plan Outcomes Met? 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 Santa Garcia RN Completing Procedure Plan Last Modified By: Santa Garcia RN 04/02/24 10:46:28 Case Comments Finalized By: Santa Garcia RN Document Signatures Signed By: Santa Garcia RN 04/02/24 11:33 Santa Garcia RN 04/02/24 11:33 [id number] Summary of episode note Discharge Instructions Thank you for allowing [facility] to assist you with your healthcare needs. The following is importantdischarge information regarding your hospital visit. Your Care Team JAMES WILCOX MD What to do next Scheduled Follow-Up Appointments Appointment Type When With Where Contact Information StatusURO OV 04/13/2024 01:20 PM EDT ROSA LOVE APRN-SVP RESEARCH AND STRATEGIC ANALYSIS [facility] Confirmed GS OV Check after Test 05/05/2024 08:15 AM ARLENE BRANNON MD [facility] Confirmed Follow Up Appointments Follow Up with Follow up with primary care provider The Following Activity and Diet Have Been Ordered for You No qualifying data available. No qualifying data available. The Following Equipment Has Been Ordered for You No qualifying data available. The Following Treatments Have Been Ordered for You Discharge Labs No qualifying data available. Discharge Radiology No qualifying data available. Other Therapies No qualifying data available. Post Acute Orders No qualifying data available. Someone Will Contact You Regarding These Home Health Referrals No home referrals have been ordered for you. No one will call you. Allergies NKA Medications Please ask your primary doctor or pharmacist before taking any other medication not listed, including over the counter drugs, herbal medications, vitamins and or supplements as they may interact withyour home medications. What How Much When Instructions Last Dose Unchanged cefdinir (cefdinir 300 mg oral capsule) 1 cap by mouth Every 12 hours Duration: 21 Days Unchanged herbal/ nutritional product (Probiotic) Unchanged metroNIDAZOLE (metroNIDAZOLE 500 mg oral tablet) 1 tab(s) by mouth Three (3) times a day Duration: 21 Days Unchanged omeprazole (omeprazole 20 mg oral delayed release capsule) 1 cap by mouth Once a day Please take this list to your next doctor s visit. Bring all medications you take, including over the counter medications, herbals and other supplements with you to your doctor s visit. Patients and families are reminded to discard old lists and to update any records with all medication providers or retail pharmacies. Education Materials [employer] [facility] [facility] Radiology Procedure/Biopsy Discharge Instructions Interventional Radiology [facility] [address] [facility] [address] Today, you had a drain evaluation. This procedure/biopsy was done to help your doctor diagnose and treat the signs and symptoms you have been experiencing. These instructions should be followed afteryour procedure to reduce the chance of experiencing complications. Please follow the instructions below to reduce the chance of experiencing complications. Diet: Resume your normal diet as tolerated. Drink extra fluids. Activity: Rest for the remainder of the day. You may resume your normal activity tomorrow. You may bathe/shower after 24 hours. Do not soak or submerge site (including swimming or hot tubs) until a scab forms. No heavy lifting, pushing, or straining. Dressing: Check the site for bleeding. Apply pressure to the site if bleeding excessively and call your physician. Change the band aid as needed; it can be removed after 24 hours. Keep the site dry at all times until a scab forms over the site. Pain Control: The puncture site may be sore for 1 to 2 days following the procedure. Yjdy-rnp-[id number] pain medication should be used for pain or discomfort. Please check with the physician who ordered this procedure for you for their specific recommendations. If your pain is not relieved or becomes more severe, notify the physician who sent you for this procedure. If you were sedated for this procedure: Avoid alcoholic beverages for 24 hours after your procedure. Do not drive or operate heavy machinery for 24 hours after your procedure. Do not make any legal decisions for 24 hours after your procedure. Medication: Please resume on . When to seek medical help: Lightheadedness, dizziness, or fainting. Severe pain or swelling. Severe nausea or vomiting. Infection: fever greater than 101 degrees, chills, redness, warmth, swelling, bleeding, or pus frompuncture site. If you experience any of these issues during the first 24 hours, please follow the instruction below: 8:00 am- 5:00 pm call [phone] After 5:00 pm call [phone] After 24 hours, contact the physician who ordered this procedure for you. Obtaining test results: Please make an appointment with your doctor to obtain your test results. They are usually availablewithin 4 to 7 business days. Do not assume everything is normal if you have not heard from your doctor or medical facility. It is important for you to follow up on all of your test results. Special Instructions: Additional Information VACCINATE! IT SAVES LIVES! Members of the community who have not yet received the COVID-19 vaccine and would like to receive it can visit one of [facility] vaccine clinics. There are many vaccine clinic locations within the [facility]. For locations and available times, please visit [email or web address] It is important to note that some COVID mobile vaccine clinics are held outdoors and may be canceled in rainy or stormy conditions. To learn more about pediatric vaccinations (ages 5-11), we invite you to visit the [facility] webpage. [email or web address] [email or web address] learn more about the COVID-19 vaccine, we invite you to visit the CDC website for a list of frequently asked questions.https://www.cdc.gov/coronavirus/2019-ncov/vaccines/faq.html [employer] [employer] [facility] [facility] Patient Portal Access Instructions: Stay connected with your healthcare team and access your personal medical information anytime with the [employer] Patient Portal. Please follow the directions below to create your [employer] account: 1.Access the email account you provided upon registration to the hospital/physician office.2.Look for an invitation email from [facility].3.Open the email and access the invitation link: AcceptInvitation to [employer].4.Fill in the required wetzel to create your account. To access your account, visit [email or web address]. Click the blue button labeled Access Patient Portal and then log in with the username and password that you created in the steps above. You will be able to view your test results, lab results, a summary of your visits, upcoming appointments and more. There is also a convenient messaging option where you can send secure messages to your p rovider. In addition, you will have the ability to download any documents or summaries to your computer and/or send the information securely to a physician. Remember that your healthcare information is confidential, so carefully consider who you will allowto register on the [facility] [employer] Patient Portal for access to your information. You can also access the [facility] [employer] Patient Portal on the [facility] patrizia. Simply click on Patient Portal and then log into your account. If you would like to receive a full copy of your medical records, please contact the [facility] Medical Records Department by calling [phone], Saturday through Saturday between 8 a.m. and 4:30 p.m. HOW TO SAFELY DISPOSE OF PRESCRIPTION MEDICATIONS Please use one of the following methods to safely dispose of your unused medications. 1.Use a drug disposal kit: the drug disposal pouch allows you to safely discard your old and unuseddrugs. Ask your nurse to give you one when you are discharged.2.Visit a local take-back location: Many local pharmacies and police departments have programs that collect old and unwanted prescriptiondrugs. Call your local pharmacy or go to http://nooked.[employer]/7U3Zx7c to find one close to you.3.Make use of household items: Use cat litter or old coffee grounds to dispose medications if other options arenot available. Mix your drugs with these household products, seal them in an airtight container andthrow it into the garbage. Call [facility]: [phone] to be sure your drugs can be disposed of in this way. Some medicines may require a different approach.4.Never flush your medications down the toilet. IF YOU HAVE BEEN PRESCRIBED AN OPIOID FOR PAIN If you have been prescribed an opioid (such as hydrocodone, oxycodone or morphine), it is critical to understand the possible side effects and risks of opioid pain medications. Even when taken as directed, opioids can have several side effects including: Tolerance, meaning you might need to take more of a medication for the same pain relief. Nausea, vomiting and/or constipation. Sleepiness, dizziness, dry mouth, confusion, depression or itching. Physical dependence, meaning you have withdrawal symptoms when a medication is stopped, can develop within a few days. KNOW YOUR RESPONSIBILITIES It is important to know exactly how much and how often to take the opioid pain medications you are prescribed. Never take opioids in higher amounts or more often than prescribed. Do not combine opioids with alcohol or other drugs that cause drowsiness, such as benzodiazepines, also known as benzos, including diazepam and alprazolam, muscle relaxants or sleep aids. Never sell or share prescription opioids. This is illegal. Store opioids in a secure place and out of reach of others (including children, family, friends and visitors). The last page of this document has been signed and retained as a CHART COPY. Signatures Patient Education Materials Radiology- Procedure/Biopsy 10/14/2019 (CUSTOM) Medication Leaflets My discharge plan and instructions have been reviewed and explained to me and I,CLARISSE PEGUERO understand my current condition and have read and understand these discharge instructions. I have received a written copy of the plan/instructions. If I have questions, I am aware that I should contact my doctor. 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 I have examined the patient, reviewed the H&P, and there are no changes unless noted below: < 10 ml of output through diverticular abscess drainage catheter. The most recent H&P/Office Note has been performed on 03/09/2024 and can be found on paper, which has been scanned into the [facility] PACS/RIS system. _ Digitally Signed by JAMI MUÑOZ PA-C on 04/02/2024 10:33 AM Digitally Signed by IRMA SHAH DO on 04/02/2024 01:36 PM [id number] Evaluation + Plan note Future Scheduled Tests Radiology* CT Abdomen and Pelvis w/ contrast 03/27/24 * US Renal 04/13/24 [facility] 09-23-2024 Note* MELA Mahan: SIGN, AUTHOR, PERFORM Event Display: IR Procedure Record Authored Date: [id number] IR Procedure Record Summary Primary Physician: KENAN JOSE MD Finalized Date/Time: 03/23/24 14:50:59 Pt. Name: CLARISSE PEGUERO /Sex: 1980 Female Med Rec #: [id number] Physician: Financial #: [id number] Pt. Type: O Room/Bed: / Admit/Disch: 03/23/24 12:26:00 - Institution: Allergies identified in patient's electronic medical record at time of printing on 03/23/24 Entry 1 Substance NKA Reaction Type Allergy Last Modified By: Gisselle Hector RN 03/09/24 04:11:39 Case Attendance- IR Entry 1 Entry 2 Entry 3 Case Attendee KENAN JOSE MD, RN Melanie L Craemer Nealindira Santiago Role Performed Primary Surgeon Procedure Nurse Scrub Technologist Details Time In 03/23/24 14:35:00 03/23/24 14:20:00 03/23/24 14:20:00 Time Out 03/23/24 14:48:00 03/23/24 14:54:00 03/23/24 14:54:00 Procedure/Preference IR Drainage Cath IR Drainage Cath IR Drainage Cath Card Injection for Eval SN Injection for Eval SN Injection for Eval SN Last Modified By: MELA Mahan RN Melanie L Lee, RN Melanie L 03/23/24 14:49:34 03/23/24 14:49:34 03/23/24 14:49:34 Radiology Procedures- IR Entry 1 Procedure/Preference IR Drainage Cath Actual Procedure DRAIN EVAL Card Injection for Eval SN Primary Procedure Yes Primary Surgeon KENAN JOSE MD Anesthesia/Sedation None Type Additional Procedure Times Start 03/23/24 14:35:00 Stop 03/23/24 14:48:00 Specialty Service SN Radiology Procedure EBL 0 mL Last Modified By: MELA Mahan 03/23/24 14:49:29 Radiology Procedure Details - IR Entry 1 Radiology Sedation Case Times Sedation Total Time 0 Radiology - Fluid/Drainage Radiology Contrast Contrast Used? Yes Dose 3 mL Medication CONTRAST ISOVUE 300/30ML 10/CA 589329 Radiology Flouroscopy Fluoroscopy Used? Yes Fluoro Dose (mGy) 37.20 Fluoro Time 0.5mins Radiology Local Local Used? No Radiology Procedure Site Site/Location right buttock Site Condition No complications Dressing Type Gauze sponge 4 X 4, Transparent Last Modified By: MELA Mahan 03/23/24 14:48:36 General Case Data - IR Entry 1 Case Information Room IR 17 Case Level IR Level 1 Wound Class None Specialty SN Radiology Procedure ASA Class None Diagnosis Preop Diagnosis drain eval Postop Same As Preop Yes Postop Diagnosis drain eval Last Modified By: MELA Mahan 03/23/24 14:49:20 Procedure Case Times- IR Entry 1 Patient In Procedure Patient In OR 03/23/24 14:20:00 Patient Out of OR 03/23/24 14:54:00 Procedure Start/Stop Procedure Start Time 03/23/24 14:35:00 Procedure Stop Time 03/23/24 14:48:00 Last Modified By: MELA Mahan 03/23/24 14:48:53 Immediate Post OP Note - IR Entry 1 Immediate Post Yes Findings Small residual; about Procedure Note 15 ml today so will displayed for bring back in 1 week Physician to review Closure Technique Closure Technique Other than Primary Last Modified By: MELA Mahan 03/23/24 14:47:15 Immediate Post OP Note - IR Signed By: KENAN JOSE MD 03/23/24 14:43 No Complications Allergy Information- IR Entry 1 Allergies Reviewed? Yes Allergies Reviewed Medical Record With Last Modified By: MELA Mahan 03/23/24 14:31:34 Radiology Protocols/Time Out- IR Entry 1 Preprocedure Clinician Verifies Correct patient ID When Clinically Confirmation of correct using name & date Indicated side(s) and site(s), or MRN, Accurate Correct diagnostic and procedure, complete radiology tests Informed Consent, H & P available, Required update immediately blood products, prior to procedure, if implants, devices applicable and/or special equipment available OR/Procedure Room/Bedside Time 03/23/24 14:35:00 Clinician Verifies Correct patient identity including EMR & records using name and date or medical record number, Accurate procedure consent form, Correct patient position, Necessary equipment is available, Anticipated non-routine events with surgical team (case duration, estimated blood loss, patient specific concerns)., Amaya patient factors for recovery and management identified with surgical team. When Applicable Confirmation correct Team Members KENAN JOSE MD, [place], side and site marked, Present for Time Out Edwin Murcia, Relevant images and Neal Tech results are properly labeled and appropriately displayed, Alcohol based prep dry Instrument Sterility Procedure IR Drainage Cath Injection for Eval SN Last Modified By: MELA Mahan 03/23/24 14:36:53 Skin Prep- IR Entry 1 Procedure IR Drainage Cath Injection for Eval SN Skin Prep Prep Area Buttock Side Right By Evans Pinedais David Prep Agents Chloraprep Hair Removal Method N/A Last Modified By: MELA Mahan 03/23/24 14:33:19 Patient Positioning- IR Entry 1 Procedure IR Drainage Cath Body Position OP Prone Injection for Eval SN Feet Uncrossed? Yes Pressure Points Yes Checked Last Modified By: MELA Mahan 03/23/24 14:42:29 Radiology Procedure Plan - IR Entry 1 Radiology - Nursing Care Plan Outcome Statement The patient Outcome Statement The patient receives demonstrates knowledge Cont. appropriate of the expected medication(s), safely responses to the administered during the operative/invasive perioperative/invasive procedure., The period., The patient is patient's value system, free from signs and lifestyle, ethnicity, symptoms of injury and culture are caused by extraneous considered, respected, objects (equipment, and incorporated in the instrumentation, perioperative plan of sponges, or sharps). care., The patient is free from signs and symptoms of infection., The patient is free from signs and symptoms of injury related to positioning. Radiology - Action Plan Outcomes Met? 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 MELA Mahan Completing Procedure Plan Last Modified By: MELA Mahan 03/23/24 14:49:02 Case Comments <None> Finalized By: MELA Mahan Document Signatures Signed By: MELA Mahan 03/23/24 14:50 [facility] 09-23-2024 Hospital Discharge instructions Patient Education 03/23/2024 14:38:14 Radiology- Procedure/Biopsy 10/14/2019 (CUSTOM) [facility] Radiology Procedure/Biopsy Discharge Instructions Interventional Radiology [facility] Services [address] [place] [address] Today, you had a _Drain cath evaluation. This procedure/biopsy was done to help your doctor diagnose and treat the signs and symptoms you have been experiencing. These instructions should be followedafter your procedure to reduce the chance of experiencing complications. Please follow the instructions below to reduce the chance of experiencing complications. Diet: Resume your normal diet as tolerated. Drink extra fluids. Activity: Rest for the remainder of the day. You may resume your normal activity tomorrow. You may bathe/shower after 24 hours. Do not soak or submerge site (including swimming or hot tubs) until a scab forms. No heavy lifting, pushing, or straining. Dressing: Check the site for bleeding. Apply pressure to the site if bleeding excessively and call your physician. Change the band aid as needed; it can be removed after 24 hours. Keep the site dry at all times until a scab forms over the site. Pain Control: The puncture site may be sore for 1 to 2 days following the procedure. Cgkk-hbc-naxxeib pain medication should be used for pain or discomfort. Please check with the physician who ordered this procedure for you for their specific recommendations. If your pain is not relieved or becomes more severe, notify the physician who sent you for this procedure. When to seek medical help: Lightheadedness, dizziness, or fainting. Severe pain or swelling. Severe nausea or vomiting. Infection: fever greater than 101 degrees, chills, redness, warmth, swelling, bleeding, or pus frompuncture site. If you experience any of these issues during the first 24 hours, please follow the instruction below: 8:00 am- 5:00 pm call [phone] After 5:00 pm call [phone] After 24 hours, contact the physician who ordered this procedure for you. Obtaining test results: Please make an appointment with your doctor to obtain your test results. They are usually availablewithin 4 to 7 business days. Do not assume everything is normal if you have not heard from your doctor or medical facility. It is important for you to follow up on all of your test results. Special Instructions: Follow Up Care 03/17/2024 11:43:30 With:Follow up with primary care provider Address:Unknown When: Unknown [facility] 09-23-2024 Note IR Procedure Record Summary Primary Physician: KENAN JOSE MD Finalized Date/Time: 03/23/24 14:50:59 Pt. Name: CLARISSE PEGUERO/Sex: 1980 Female Med Rec #: [id number] Physician: Financial #: [id number] Pt. Type: O Room/Bed: / Admit/Disch: 03/23/24 12:26:00 - Institution: Allergies identified in patient's electronic medical record at time of printing on 03/23/24 Entry 1 Substance NKA Reaction Type Allergy Last Modified By: Gisselle Hector RN 03/09/24 04:11:39 Case Attendance- IR Entry 1 Entry 2 Entry 3 Case Attendee KENAN JOSE MD, Neal Hernandez Role Performed Primary Surgeon Procedure Nurse Scrub Technologist Details Time In 03/23/24 14:35:00 03/23/24 14:20:00 03/23/24 14:20:00 Time Out 03/23/24 14:48:00 03/23/24 14:54:00 03/23/24 14:54:00 Procedure/Preference IR Drainage Cath IR Drainage Cath IR Drainage Cath Card Injection for Eval SN Injection for Eval SN Injection for Eval SN Last Modified By: MELA Mahan RN Melanie L Lee, RN Melanie L 03/23/24 14:49:34 03/23/24 14:49:34 03/23/24 14:49:34 Radiology Procedures- IR Entry 1 Procedure/Preference IR Drainage Cath Actual Procedure DRAIN EVAL Card Injection for Eval SN Primary Procedure Yes Primary Surgeon KENAN JOSE MD Anesthesia/Sedation None Type Additional Procedure Times Start 03/23/24 14:35:00 Stop 03/23/24 14:48:00 Specialty Service SN Radiology Procedure EBL 0 mL Last Modified By: MELA Mahan 03/23/24 14:49:29 Radiology Procedure Details - IR Entry 1 Radiology Sedation Case Times Sedation Total Time 0 Radiology - Fluid/Drainage Radiology Contrast Contrast Used? Yes Dose 3 mL Medication CONTRAST ISOVUE 300/30ML 10/CA 906896 Radiology Flouroscopy Fluoroscopy Used? Yes Fluoro Dose (mGy) 37.20 Fluoro Time 0.5mins Radiology Local Local Used? No Radiology Procedure Site Site/Location right buttock Site Condition No complications Dressing Type Gauze sponge 4 X 4, Transparent Last Modified By: MELA Mahan 03/23/24 14:48:36 General Case Data - IR Entry 1 Case Information Room IR 17 Case Level IR Level 1 Wound Class None Specialty SN Radiology Procedure ASA Class None Diagnosis Preop Diagnosis drain eval Postop Same As Preop Yes Postop Diagnosis drain eval Last Modified By: MELA Mahan 03/23/24 14:49:20 Procedure Case Times- IR Entry 1 Patient In Procedure Patient In OR 03/23/24 14:20:00 Patient Out of OR 03/23/24 14:54:00 Procedure Start/Stop Procedure Start Time 03/23/24 14:35:00 Procedure Stop Time 03/23/24 14:48:00 Last Modified By: MELA Mahan 03/23/24 14:48:53 Immediate Post OP Note - IR Entry 1 Immediate Post Yes Findings Small residual; about Procedure Note 15 ml today so will displayed for bring back in 1 week Physician to review Closure Technique Closure Technique Other than Primary Last Modified By: MELA Mahan 03/23/24 14:47:15 Immediate Post OP Note - IR Signed By: KENAN JOSE MD 03/23/24 14:43 No Complications Allergy Information- IR Entry 1 Allergies Reviewed? Yes Allergies Reviewed Medical Record With Last Modified By: MELA Mahan 03/23/24 14:31:34 Radiology Protocols/Time Out- IR Entry 1 Preprocedure Clinician Verifies Correct patient ID When Clinically Confirmation of correct using name & date Indicated side(s) and site(s), or MRN, Accurate Correct diagnostic and procedure, complete radiology tests Informed Consent, H & P available, Required update immediately blood products, prior to procedure, if implants, devices applicable and/or special equipment available OR/Procedure Room/Bedside Time 03/23/24 14:35:00 Clinician Verifies Correct patient identity including EMR & records using name and date or medical record number, Accurate procedure consent form, Correct patient position, Necessary equipment is available, Anticipated non-routine events with surgical team (case duration, estimated blood loss, patient specific concerns)., Amaya patient factors for recovery and management identified with surgical team. When Applicable Confirmation correct Team Members KENAN JOSE MD, Lee, side and site marked, Present for Time Out Edwin Murcia, Relevant images and Neal Tech results are properly labeled and appropriately displayed, Alcohol based prep dry Instrument Sterility Procedure IR Drainage Cath Injection for Eval SN Last Modified By: MELA Mahan 03/23/24 14:36:53 Skin Prep- IR Entry 1 Procedure IR Drainage Cath Injection for Eval SN Skin Prep Prep Area Buttock Side Right By Edwin Neal Tech Prep Agents Chloraprep Hair Removal Method N/A Last Modified By: MELA Mahan 03/23/24 14:33:19 Patient Positioning- IR Entry 1 Procedure IR Drainage Cath Body Position OP Prone Injection for Eval SN Feet Uncrossed? Yes Pressure Points Yes Checked Last Modified By: MELA Mahan 03/23/24 14:42:29 Radiology Procedure Plan - IR Entry 1 Radiology - Nursing Care Plan Outcome Statement The patient Outcome Statement The patient receives demonstrates knowledge Cont. appropriate of the expected medication(s), safely responses to the administered during the operative/invasive perioperative/invasive procedure., The period., The patient is patient's value system, free from signs and lifestyle, ethnicity, symptoms of injury and culture are caused by extraneous considered, respected, objects (equipment, and incorporated in the instrumentation, perioperative plan of sponges, or sharps). care., The patient is free from signs and symptoms of infection., The patient is free from signs and symptoms of injury related to positioning. Radiology - Action Plan Outcomes Met? 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 MELA Mahan Completing Procedure Plan Last Modified By: MELA Mahan 03/23/24 14:49:02 Case Comments Finalized By: MELA Mahan Document Signatures Signed By: MELA Mahan 03/23/24 14:50 [id number] Summary of episode note Discharge Instructions Thank you for allowing [facility] to assist you with your healthcare needs. The following is importantdischarge information regarding your hospital visit. Your Care Team JAMES WILCOX MD What to do next Scheduled Follow-Up Appointments Appointment Type When With Where Contact Information Status[facility] Hospital Follow Up 03/27/2024 10:00 AM ARLENE HYDE MD [facility] Confirmed URO OV 04/16/2024 10:20 AM ROSA ERICKSON FLEXO OPERATOR-SVP RESEARCH AND STRATEGIC ANALYSIS [facility] Confirmed Follow Up Appointments Follow Up with Follow up with primary care provider The Following Activity and Diet Have Been Ordered for You No qualifying data available. No qualifying data available. The Following Equipment Has Been Ordered for You No qualifying data available. The Following Treatments Have Been Ordered for You Discharge Labs No qualifying data available. Discharge Radiology No qualifying data available. Other Therapies No qualifying data available. Post Acute Orders No qualifying data available. Someone Will Contact You Regarding These Home Health Referrals No home referrals have been ordered for you. No one will call you. Allergies NKA Medications Please ask your primary doctor or pharmacist before taking any other medication not listed, including over the counter drugs, herbal medications, vitamins and or supplements as they may interact withyour home medications. What How Much When Instructions Last Dose Unchanged cefdinir (cefdinir 300 mg oral capsule) 1 cap by mouth Every 12 hours Duration: 21 Days Unchanged metroNIDAZOLE (metroNIDAZOLE 500 mg oral tablet) 1 tab(s) by mouth Three (3) times a day Duration: 21 Days Unchanged omeprazole (PriLOSEC OTC) 40 Milligram by mouth Once a day patient buys OTC Please take this list to your next doctor s visit. Bring all medications you take, including over the counter medications, herbals and other supplements with you to your doctor s visit. Patients and families are reminded to discard old lists and to update any records with all medication providers or retail pharmacies. Education Materials [facility] Radiology Procedure/Biopsy Discharge Instructions Interventional Radiology [facility] [address] [place] [address] Today, you had a _Drain cath evaluation. This procedure/biopsy was done to help your doctor diagnose and treat the signs and symptoms you have been experiencing. These instructions should be followedafter your procedure to reduce the chance of experiencing complications. Please follow the instructions below to reduce the chance of experiencing complications. Diet: Resume your normal diet as tolerated. Drink extra fluids. Activity: Rest for the remainder of the day. You may resume your normal activity tomorrow. You may bathe/shower after 24 hours. Do not soak or submerge site (including swimming or hot tubs) until a scab forms. No heavy lifting, pushing, or straining. Dressing: Check the site for bleeding. Apply pressure to the site if bleeding excessively and call your physician. Change the band aid as needed; it can be removed after 24 hours. Keep the site dry at all times until a scab forms over the site. Pain Control: The puncture site may be sore for 1 to 2 days following the procedure. Dvcv-dhz-ceroliw pain medication should be used for pain or discomfort. Please check with the physician who ordered this procedure for you for their specific recommendations. If your pain is not relieved or becomes more severe, notify the physician who sent you for this procedure. When to seek medical help: Lightheadedness, dizziness, or fainting. Severe pain or swelling. Severe nausea or vomiting. Infection: fever greater than 101 degrees, chills, redness, warmth, swelling, bleeding, or pus frompuncture site. If you experience any of these issues during the first 24 hours, please follow the instruction below: 8:00 am- 5:00 pm call [phone] After 5:00 pm call [phone] After 24 hours, contact the physician who ordered this procedure for you. Obtaining test results: Please make an appointment with your doctor to obtain your test results. They are usually availablewithin 4 to 7 business days. Do not assume everything is normal if you have not heard from your doctor or medical facility. It is important for you to follow up on all of your test results. Special Instructions: Additional Information VACCINATE! IT SAVES LIVES! Members of the community who have not yet received the COVID-19 vaccine and would like to receive it can visit one of [facility] vaccine clinics. There are many vaccine clinic locations within the [facility]. For locations and available times, please visit [email or web address].coronavirus.[place].gov/. It is important to note that some COVID mobile vaccine clinics are held outdoors and may be canceled in rainy or stormy conditions. To learn more about pediatric vaccinations (ages 5-11), we invite you to visit the [facility] webpage. https://www.[facility].org/pages/6671-Uoryo-Tmqtfkpjhuy-Hojqgfpdpl-Hszjk-Aps stions.htmlTo learn more about the COVID-19 vaccine, we invite you to visit the CDC website for a list of frequently asked questions.https://www.cdc.gov/coronavirus/2019-ncov/vaccines/faq.html [facility] Patient Portal Access Instructions: Stay connected with your healthcare team and access your personal medical information anytime with the [facility] Patient Portal. Please follow the directions below to create your [facility] account: 1.Access the email account you provided upon registration to the hospital/physician office.2.Look for an invitation email from [facility].3.Open the email and access the invitation link: AcceptInvitation to [facility].4.Fill in the required wetzel to create your account. To access your account, visit [employer]. Click the blue button labeled Access Patient Portal and then log in with the username and password that you created in the steps above. You will be able to view your test results, lab results, a summary of your visits, upcoming appointments and more. There is also a convenient messaging option where you can send secure messages to your p rovider. In addition, you will have the ability to download any documents or summaries to your computer and/or send the information securely to a physician. Remember that your healthcare information is confidential, so carefully consider who you will allowto register on the [facility] Patient Portal for access to your information. You can also access the [facility] Patient Portal on the [facility] [employer]zia. Simply click on Patient Portal and then log into your account. If you would like to receive a full copy of your medical records, please contact the [facility] Medical Records Department by calling [phone], Saturday through Saturday between 8 a.m. and 4:30 p.m. HOW TO SAFELY DISPOSE OF PRESCRIPTION MEDICATIONS Please use one of the following methods to safely dispose of your unused medications. 1.Use a drug disposal kit: the drug disposal pouch allows you to safely discard your old and unuseddrugs. Ask your nurse to give you one when you are discharged.2.Visit a local take-back location: Many local pharmacies and police departments have programs that collect old and unwanted prescriptiondrugs. Call your local pharmacy or go to http://nooked.[employer]/5A6Ou0s to find one close to you.3.Make use of household items: Use cat litter or old coffee grounds to dispose medications if other options arenot available. Mix your drugs with these household products, seal them in an airtight container andthrow it into the garbage. Call [facility]: [phone] to be sure your drugs can be disposed of in this way. Some medicines may require a different approach.4.Never flush your medications down the toilet. IF YOU HAVE BEEN PRESCRIBED AN OPIOID FOR PAIN If you have been prescribed an opioid (such as hydrocodone, oxycodone or morphine), it is critical to understand the possible side effects and risks of opioid pain medications. Even when taken as directed, opioids can have several side effects including: Tolerance, meaning you might need to take more of a medication for the same pain relief. Nausea, vomiting and/or constipation. Sleepiness, dizziness, dry mouth, confusion, depression or itching. Physical dependence, meaning you have withdrawal symptoms when a medication is stopped, can develop within a few days. KNOW YOUR RESPONSIBILITIES It is important to know exactly how much and how often to take the opioid pain medications you are prescribed. Never take opioids in higher amounts or more often than prescribed. Do not combine opioids with alcohol or other drugs that cause drowsiness, such as benzodiazepines, also known as benzos, including diazepam and alprazolam, muscle relaxants or sleep aids. Never sell or share prescription opioids. This is illegal. Store opioids in a secure place and out of reach of others (including children, family, friends and visitors). The last page of this document has been signed and retained as a CHART COPY. Signatures Patient Education Materials Radiology- Procedure/Biopsy 10/14/2019 (CUSTOM) Medication Leaflets My discharge plan and instructions have been reviewed and explained to me and I,CLARISSE PEGUERO understand my current condition and have read and understand these discharge instructions. I have received a written copy of the plan/instructions. If I have questions, I am aware that I should contact my doctor. 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 I have examined the patient, reviewed the H&P, and there are no changes unless noted below: Patient came through the ED on 03/09 and was found to have diverticular abscess. Drainage catheter placed by IR on 03/13. First few days she was getting 25-30 ml of output per day. She had called IR on 03/20 stating that she was not having as much output and she was having leaking around the drain insertion site when flushing it. Today she was able to flush with some difficulty and had 25 ml of output that seemed thick. The most recent H&P/Office Note has been performed on 03/09/2024 and can be found on paper, which has been scanned into the [facility] PACS/RIS system. _ Future Appointments Appointment Date:03/27/2024 10:00:00 AM Scheduled Provider:ARLENE RODRIGEZ MD Location:Gen Surg [facility] Appointment Type:[facility] Hospital Follow Up Appointment Date:04/02/2024 11:00:00 AM Scheduled Provider: Location:IR Appointment Type:IR Drainage Cath Injection for Eval Appointment Date:04/13/2024 01:20:00 PM Scheduled Provider:ROSA LOVE APRN-SVP RESEARCH AND STRATEGIC ANALYSIS Location:UROLOGY Appointment Type:URO OV Future Scheduled Tests Radiology* IR Drainage Cath Injection for Eval 04/02/24 * US Renal 04/13/24 [facility] 09-23-2024 History and physical note IR PREPROCEDURE H&P UPDATE IF A HISTORY AND PHYSICAL EXAMINATION HAS BEEN COMPLETED PRIOR TO ADMISSION TO THE HOSPITAL, AN UPDATED EXAMINATION MUST BE COMPLETED AND DOCUMENTED WITHIN 24 HOURS AFTER ADMISSION OR REGISTRATION BUT BEFORE A SURGICAL PROCEDURE. I have examined the patient, reviewed the H&P, and there are no changes unless noted below: Patient came through the ED on 03/09 and was found to have diverticular abscess. Drainage catheter placed by IR on 03/13. First few days she was getting 25-30 ml of output per day. She had called IR on 03/20 stating that she was not having as much output and she was having leaking around the drain insertion site when flushing it. Today she was able to flush with some difficulty and had 25 ml of output that seemed thick. The most recent H&P/Office Note has been performed on 03/09/2024 and can be found on paper, which has been scanned into the [facility] PACS/RIS system. _ Digitally Signed by JAMI MUÑOZ PA-C on 03/23/2024 01:43 PM Digitally Signed by KENAN JOSE MD on 03/23/2024 02:09 PM [id number] Hospital Discharge instructions Patient Education 03/16/2024 12:23:20 Surgical Drain Home Care Surgical Drain Home Care Surgical drains are used to remove extra fluid that normally builds up in a surgical wound after surgery. A surgical drain helps to heal a surgical wound. Different kinds of surgical drains include: Active drains. These drains use suction to pull drainage away from the surgical wound. Drainage flows through a tube to a container outside of the body. With these drains, you need to keep the bulb or the drainage container flat (compressed) at all times, except while you empty it. Flattening the bulb or container creates suction. Passive drains. These drains allow fluid to drain naturally, by gravity. Drainage flows through a tube to a bandage (dressing) or a container outside of the body. Passive drains do not need to be emptied. A drain is placed during surgery. Right after surgery, drainage is usually bright red and a little thicker than water. The drainage may gradually turn yellow or pink and become thinner. It is likely that your health care provider will remove the drain when the drainage stops or when the amount decreases to 1 2 Tbsp (15 30 mL) during a 24-hour period. Supplies needed: Tape. Germ-free cleaning solution (sterile saline). Cotton swabs. Split gauze drain sponge: 4 x 4 inches (10 x 10 cm). Gauze square: 4 x 4 inches (10 x 10 cm). How to care for your surgical drain Care for your drain as told by your health care provider. This is important to help prevent infection. If your drain is placed at your back, or any other tksg-ph-qvwpb area, ask another person to assist you in performing the following tasks: General care Keep the skin around the drain dry and covered with a dressing at all times. Check your drain area every day for signs of infection. Check for: ?Redness, swelling, or pain. ?Pus or a bad smell. ?Cloudy drainage. ?Tenderness or pressure at the drain exit site. Changing the dressing Follow instructions from your health care provider about how to change your dressing. Change your dressing at least once a day. Change it more often if needed to keep the dressing dry. Make sure you: 1.Gather your supplies. 2.Wash your hands with soap and water before you change your dressing. If soap and water are not available, use hand buildings and grounds director. 3.Remove the old dressing. Avoid using scissors to do that. 4.Wash your hands with soap and water again after removing the old dressing. 5.Use sterile saline to clean your skin around the drain. You may need to use a cotton swab to clean the skin. 6.Place the tube through the slit in a drain sponge. Place the drain sponge so that it covers your wound. 7.Place the gauze square or another drain sponge on top of the drain sponge that is on the wound. Make sure the tube is between those layers. 8.Tape the dressing to your skin. 9.Tape the drainage tube to your skin 1 2 inches (2.5 5 cm) below the place where the tube enters your body. Taping keeps the tube from pulling on any stitches (sutures) that you have. 10.Wash your hands with soap and water. 11.Write down the color of your drainage and how often you change your dressing. How to empty your active drain 1.Make sure that you have a measuring cup that you can empty your drainage into. 2.Wash your hands with soap and water. If soap and water are not available, use hand buildings and grounds director. 3.Loosen any pins or clips that hold the tube in place. 4.If your health care provider tells you to strip the tube to prevent clots and tube blockages: Hold the tube at the skin with one hand. Use your other hand to pinch the tubing with your thumb and first finger. Gently move your fingers down the tube while squeezing very lightly. This clears any drainage, clots, or tissue from the tube. You may need to do this several times each day to keep the tube clear. Do not pull on the tube. 5.Open the bulb cap or the drain plug. Do not touch the inside of the cap or the bottom of the plug. 6.Turn the device upside down and gently squeeze. 7.Empty all of the drainage into the measuring cup. 8.Compress the bulb or the container and replace the cap or the plug. To compress the bulb or the container, squeeze it firmly in the middle while you close the cap or plug the container. 9.Write down the amount of drainage that you have in each 24-hour period. If you have less than 2 Tbsp (30 mL) of drainage during 24 hours, contact your health care provider. 10.Flush the drainage down the toilet. 11.Wash your hands with soap and water. Contact a health care provider if: You have redness, swelling, or pain around your drain area. You have pus or a bad smell coming from your drain area. You have a fever or chills. The skin around your drain is warm to the touch. The amount of drainage that you have is increasing instead of decreasing. You have drainage that is cloudy. There is a sudden stop or a sudden decrease in the amount of drainage that you have. Your drain tube falls out. Your active drain does not stay compressed after you empty it. Summary Surgical drains are used to remove extra fluid that normally builds up in a surgical wound after surgery. Different kinds of surgical drains include active drains and passive drains. Active drains use suction to pull drainage away from the surgical wound, and passive drains allow fluid to drain naturally. It is important to care for your drain to prevent infection. If your drain is placed at your back, or any other zzid-uv-fguyq area, ask another person to assist you. Contact your health care provider if you have redness, swelling, or pain around your drain area. This information is not intended to replace advice given to you by your health care provider. Make sure you discuss any questions you have with your health care provider. Document Released: 06/14/2001 Document Revised: 07/22/2019 Document Reviewed: 07/22/2019 [employer] Patient Education 2019 [employer]. 03/16/2024 09:09:41 Sepsis, Diagnosis, Adult Sepsis, Diagnosis, Adult Sepsis is a serious bodily reaction to an infection. The infection that triggers sepsis may be froma bacteria, virus, or fungus. Sepsis can result from an infection in any part of your body. Infections that commonly lead to sepsis include skin, lung, and urinary tract infections. Sepsis is a medical emergency that must be treated right away in a hospital. In severe cases, it can lead to septic shock. Septic shock can weaken your heart and cause your blood pressure to drop. This can cause your central nervous system and your body's organs to stop working. What are the causes? This condition is caused by a severe reaction to infections from bacteria, viruses, or fungus. The germs that most often lead to sepsis include: Escherichia coli (E. coli) bacteria. Staphylococcus aureus (staph) bacteria. Some types of Streptococcus bacteria. The most common infections affect these organs: The lung (pneumonia). The kidneys or bladder (urinary tract infection). The skin (cellulitis). The bowel, gallbladder, or pancreas. What increases the risk? You are more likely to develop this condition if: Your body's disease-fighting system (immune system) is weakened. You are age 65 or older. You are male. You had surgery or you have been hospitalized. You have these devices inserted into your body: ?A small, thin tube (catheter). ?IV line. ?Breathing tube. ?Drainage tube. You are not getting enough nutrients from food (malnourished). You have a long-term (chronic) disease, such as cancer, lung disease, kidney disease, or diabetes. You are . What are the signs or symptoms? Symptoms of this condition may include: Fever. Chills or feeling very cold. Confusion or anxiety. Fatigue. Muscle aches. Shortness of breath. Nausea and vomiting. Urinating much less than usual. Fast heart rate (tachycardia). Rapid breathing (hyperventilation). Changes in skin color. Your skin may look blotchy, pale, or blue. Cool, clammy, or sweaty skin. Skin rash. Other symptoms depend on the source of your infection. How is this diagnosed? This condition is diagnosed based on: Your symptoms. Your medical history. A physical exam. Other tests may also be done to find out the cause of the infection and how severe the sepsis is. These tests may include: Blood tests. Urine tests. Swabs from other areas of your body that may have an infection. These samples may be tested (cultured) to find out what type of bacteria is causing the infection. Chest X-ray to check for pneumonia. Other imaging tests, such as a CT scan, may also be done. Lumbar puncture. This removes a small amount of the fluid that surrounds your brain and spinal cord. The fluid is then examined for infection. How is this treated? This condition must be treated in a hospital. Based on the cause of your infection, you may be given an antibiotic, antiviral, or antifungal medicine. You may also receive: Fluids through an IV. Oxygen and breathing assistance. Medicines to increase your blood pressure. Kidney dialysis. This process cleans your blood if your kidneys have failed. Surgery to remove infected tissue. Blood transfusion if needed. Medicine to prevent blood clots. Nutrients to correct imbalances in basic body function (metabolism). You may: ?Receive important salts and minerals (electrolytes) through an IV. ?Have your blood sugar level adjusted. Follow these instructions at home: Medicines Take kioz-ayo-sbojafh and prescription medicines only as told by your health care provider. If you were prescribed an antibiotic, antiviral, or antifungal medicine, take it as told by your health care provider. Do not stop taking the medicine even if you start to feel better. General instructions If you have a catheter or other indwelling device, ask to have it removed as soon as possible. Keep all follow-up visits as told by your health care provider. This is important. Contact a health care provider if: You do not feel like you are getting better or regaining strength. You are having trouble coping with your recovery. You frequently feel tired. You feel worse or do not seem to get better after surgery. You think you may have an infection after surgery. Get help right away if: You have any symptoms of sepsis. You have difficulty breathing. You have a rapid or skipping heartbeat. You become confused or disoriented. You have a high fever. Your skin becomes blotchy, pale, or blue. You have an infection that is getting worse or not getting better. These symptoms may represent a serious problem that is an emergency. Do not wait to see if the symptoms will go away. Get medical help right away. Call your local emergency services (911 in the [place] Do not drive yourself to the hospital. Summary Sepsis is a medical emergency that requires immediate treatment in a hospital. This condition is caused by a severe reaction to infections from bacteria, viruses, or fungus. Based on the cause of your infection, you may be given an antibiotic, antiviral, or antifungal medicine. Treatment may also include IV fluids, breathing assistance, and kidney dialysis. This information is not intended to replace advice given to you by your health care provider. Make sure you discuss any questions you have with your health care provider. Document Released: 03/15/2004 Document Revised: 01/23/2019 Document Reviewed: 01/23/2019 [employer] Patient Education 2020 [employer]. Follow Up Care 03/09/2024 01:06:08 With:ROSA LOVE Address: [address] [place] [address] [address] [facility] [place] [address] [phone] Business (1) When:1-2 days Comments:please keep scheduled apt on 04/16/24 With:SANTOS CH Address: [facility] [address] [place] [address]- [phone] Business (1) When:1-2 days Comments:follow up for 2 weeks With:NOEL EASTMAN Address: [address] [facility] [place] [address]- Business (1) When:1-2 days Comments:please follow up with GI for colonoscopy With:ARLENE RODRIGEZ MD, Surgery Address: [address] [place] [address] [address] [facility] [place] [address] [phone] When:03/27/2024 10:00:00 Comments:follow up within 2-4 weeks With:JAMES WILCOX MD Address: [address] [address]- When:1-2 days Comments:Please call the office to schedule a hospital follow-up appointment With:IRMA SHAH DO, [facility] Address: [address] [place] [address] [facility] [place] [address]- [phone] When: Unknown Comments:As needed, call [phone] with questions regarding your abscess drainage catheter.Plan for a follow up in 1-[address] scan and drainage catheter evaluation at [facility]. [facility] 09-16-2024 Note Discharge Instructions Thank you for allowing [facility] to assist you with your healthcare needs. The following is importantdischarge information regarding your hospital visit. Your Care Team JAMES WILCOX MD What to do next Instructions From Your Doctor Please continue antibiotics of cefdinir and Flagyl for 21 days. Please flush drain with normal saline once a day Please follow-up with infectious disease, IR and general surgery within 2 to 4 weeks. Please follow up with GI for colonoscopy Please keep scheduled appointment with urology on 04/16/2024 Follow-up with your family doctor within 1 week Return to the ED for new or worsening symptoms Scheduled Follow-Up Appointments Appointment Type When With Where Contact Information StatusGS Hospital Follow Up 03/27/2024 10:00 AM ARLENE HYDE MD [facility] Confirmed URO OV 04/16/2024 10:20 AM ROSA ERICKSON APRN-SVP RESEARCH AND STRATEGIC ANALYSIS [facility] Confirmed Follow Up Appointments Follow Up with ROSA LOVE When:Within 1-2 days Where:[address] [facility] [address] [facility] [address]- [phone] Business (1) Additional Information: please keep scheduled apt on 04/16/24 Follow Up with SANTOS CH When:Within 1-2 days Where:[facility] [address] [place] [address] [phone] Business (1) Additional Information: follow up for 2 weeks Follow Up with NOEL EASTMAN When:Within 1-2 days Where:[address] [facility] [place] [address]- Business (1) Additional Information: please follow up with GI for colonoscopy Follow Up with JAMES WILCOX MD When:Within 1-2 days Where:[address] [place] [address]- Additional Information: Please call the office to schedule a hospital follow-up appointment Follow Up with IRMA SHAH DO, [facility] Where:[address] [place] [address] [place] [address]- [phone] Additional Information: As needed, call [phone] with questions regarding your abscess drainage catheter. Plan for a follow up in 1-[address] scan and drainage catheter evaluation at [facility]. Follow Up with ARLENE RODRIGEZ MD, Surgery When:03/27/2024 10:00 AM EDT Where:[address] [facility] [address] [facility] [place] [address]- [phone] Additional Information: follow up within 2-4 weeks The Following Activity and Diet Have Been Ordered for You Discharge Activity - Ordered -- Resume your pre-hospitalization activity, 03/16/24 12:20:00 EDT Discharge Return to Work, School, or Sports - Ordered -- May return to: work, return to work on 03/23/24, 03/16/24 12:20:00 EDT Discharge Diet - Ordered -- No changes were made to your diet during your hospital stay. Please resume your pre hospitalization diet on discharge., 03/16/24 12:20:00 EDT The Following Equipment Has Been Ordered for You No qualifying data available. The Following Treatments Have Been Ordered for You Discharge Labs No qualifying data available. Discharge Radiology No qualifying data available. Other Therapies No qualifying data available. Post Acute Orders No qualifying data available. Someone Will Contact You Regarding These Home Health Referrals No home referrals have been ordered for you. No one will call you. Allergies [facility] Medications Please ask your primary doctor or pharmacist before taking any other medication not listed, including over the counter drugs, herbal medications, vitamins and or supplements as they may interact withyour home medications. What How Much When Instructions Last Dose New cefdinir (cefdinir 300 mg oral capsule) 1 cap by mouth Every 12 hours Duration: 21 Days Pickup at [facility] New metroNIDAZOLE (metroNIDAZOLE 500 mg oral tablet) 1 tab(s) by mouth Three (3) times a day Duration: 21 Days Pickup at [facility] Unchanged omeprazole (PriLOSEC OTC) 40 Milligram by mouth Once a day patient buys OTC Pharmacy Information [facility]: [address] [place] [address] [phone] Please take this list to your next doctor s visit. Bring all medications you take, including over the counter medications, herbals and other supplements with you to your doctor s visit. Patients and families are reminded to discard old lists and to update any records with all medication providers or retail pharmacies. Education Materials Surgical Drain Home Care Surgical drains are used to remove extra fluid that normally builds up in a surgical wound after surgery. A surgical drain helps to heal a surgical wound. Different kinds of surgical drains include: Active drains. These drains use suction to pull drainage away from the surgical wound. Drainage flows through a tube to a container outside of the body. With these drains, you need to keep the bulb or the drainage container flat (compressed) at all times, except while you empty it. Flattening the bulb or container creates suction. Passive drains. These drains allow fluid to drain naturally, by gravity. Drainage flows through a tube to a bandage (dressing) or a container outside of the body. Passive drains do not need to be emptied. A drain is placed during surgery. Right after surgery, drainage is usually bright red and a little thicker than water. The drainage may gradually turn yellow or pink and become thinner. It is likely that your health care provider will remove the drain when the drainage stops or when the amount decreases to 1 2 Tbsp (15 30 mL) during a 24-hour period. Supplies needed: Tape. Germ-free cleaning solution (sterile saline). Cotton swabs. Split gauze drain sponge: 4 x 4 inches (10 x 10 cm). Gauze square: 4 x 4 inches (10 x 10 cm). How to care for your surgical drain Care for your drain as told by your health care provider. This is important to help prevent infection. If your drain is placed at your back, or any other ityk-zp-muwrz area, ask another person to assist you in performing the following tasks: General care Keep the skin around the drain dry and covered with a dressing at all times. Check your drain area every day for signs of infection. Check for: ? Redness, swelling, or pain. ? Pus or a bad smell. ? Cloudy drainage. ? Tenderness or pressure at the drain exit site. Changing the dressing Follow instructions from your health care provider about how to change your dressing. Change your dressing at least once a day. Change it more often if needed to keep the dressing dry. Make sure you: 1. Gather your supplies. 2. Wash your hands with soap and water before you change your dressing. If soap and water are not available, use hand buildings and grounds director. 3. Remove the old dressing. Avoid using scissors to do that. 4. Wash your hands with soap and water again after removing the old dressing. 5. Use sterile saline to clean your skin around the drain. You may need to use a cotton swab to clean the skin. 6. Place the tube through the slit in a drain sponge. Place the drain sponge so that it covers your wound. 7. Place the gauze square or another drain sponge on top of the drain sponge that is on the wound. Make sure the tube is between those layers. 8. Tape the dressing to your skin. 9. Tape the drainage tube to your skin 1 2 inches (2.5 5 cm) below the place where the tube enters your body. Taping keeps the tube from pulling on any stitches (sutures) that you have. 10. Wash your hands with soap and water. 11. Write down the color of your drainage and how often you change your dressing. How to empty your active drain 1. Make sure that you have a measuring cup that you can empty your drainage into. 2. Wash your hands with soap and water. If soap and water are not available, use hand buildings and grounds director. 3. Loosen any pins or clips that hold the tube in place. 4. If your health care provider tells you to strip the tube to prevent clots and tube blockages: Hold the tube at the skin with one hand. Use your other hand to pinch the tubing with your thumb and first finger. Gently move your fingers down the tube while squeezing very lightly. This clears any drainage, clots, or tissue from the tube. You may need to do this several times each day to keep the tube clear. Do not pull on the tube. 5. Open the bulb cap or the drain plug. Do not touch the inside of the cap or the bottom of the plug. 6. Turn the device upside down and gently squeeze. 7. Empty all of the drainage into the measuring cup. 8. Compress the bulb or the container and replace the cap or the plug. To compress the bulb or the container, squeeze it firmly in the middle while you close the cap or plug the container. 9. Write down the amount of drainage that you have in each 24-hour period. If you have less than 2 Tbsp (30 mL) of drainage during 24 hours, contact your health care provider. 10. Flush the drainage down the toilet. 11. Wash your hands with soap and water. Contact a health care provider if: You have redness, swelling, or pain around your drain area. You have pus or a bad smell coming from your drain area. You have a fever or chills. The skin around your drain is warm to the touch. The amount of drainage that you have is increasing instead of decreasing. You have drainage that is cloudy. There is a sudden stop or a sudden decrease in the amount of drainage that you have. Your drain tube falls out. Your active drain does not stay compressed after you empty it. Summary Surgical drains are used to remove extra fluid that normally builds up in a surgical wound after surgery. Different kinds of surgical drains include active drains and passive drains. Active drains use suction to pull drainage away from the surgical wound, and passive drains allow fluid to drain naturally. It is important to care for your drain to prevent infection. If your drain is placed at your back, or any other lxtx-bh-scvfn area, ask another person to assist you. Contact your health care provider if you have redness, swelling, or pain around your drain area. This information is not intended to replace advice given to you by your health care provider. Make sure you discuss any questions you have with your health care provider. Document Released: 06/14/2001 Document Revised: 07/22/2019 Document Reviewed: 07/22/2019 [employer] Patient Education 2020 [employer] Sepsis, Diagnosis, Adult Sepsis is a serious bodily reaction to an infection. The infection that triggers sepsis may be froma bacteria, virus, or fungus. Sepsis can result from an infection in any part of your body. Infections that commonly lead to sepsis include skin, lung, and urinary tract infections. Sepsis is a medical emergency that must be treated right away in a hospital. In severe cases, it can lead to septic shock. Septic shock can weaken your heart and cause your blood pressure to drop. This can cause your central nervous system and your body's organs to stop working. What are the causes? This condition is caused by a severe reaction to infections from bacteria, viruses, or fungus. The germs that most often lead to sepsis include: Escherichia coli (E. coli) bacteria. Staphylococcus aureus (staph) bacteria. Some types of Streptococcus bacteria. The most common infections affect these organs: The lung (pneumonia). The kidneys or bladder (urinary tract infection). The skin (cellulitis). The bowel, gallbladder, or pancreas. What increases the risk? You are more likely to develop this condition if: Your body's disease-fighting system (immune system) is weakened. You are age 65 or older. You are male. You had surgery or you have been hospitalized. You have these devices inserted into your body: ? A small, thin tube (catheter). ? IV line. ? Breathing tube. ? Drainage tube. You are not getting enough nutrients from food (malnourished). You have a long-term (chronic) disease, such as cancer, lung disease, kidney disease, or diabetes. You are . What are the signs or symptoms? Symptoms of this condition may include: Fever. Chills or feeling very cold. Confusion or anxiety. Fatigue. Muscle aches. Shortness of breath. Nausea and vomiting. Urinating much less than usual. Fast heart rate (tachycardia). Rapid breathing (hyperventilation). Changes in skin color. Your skin may look blotchy, pale, or blue. Cool, clammy, or sweaty skin. Skin rash. Other symptoms depend on the source of your infection. How is this diagnosed? This condition is diagnosed based on: Your symptoms. Your medical history. A physical exam. Other tests may also be done to find out the cause of the infection and how severe the sepsis is. These tests may include: Blood tests. Urine tests. Swabs from other areas of your body that may have an infection. These samples may be tested (cultured) to find out what type of bacteria is causing the infection. Chest X-ray to check for pneumonia. Other imaging tests, such as a CT scan, may also be done. Lumbar puncture. This removes a small amount of the fluid that surrounds your brain and spinal cord. The fluid is then examined for infection. How is this treated? This condition must be treated in a hospital. Based on the cause of your infection, you may be given an antibiotic, antiviral, or antifungal medicine. You may also receive: Fluids through an IV. Oxygen and breathing assistance. Medicines to increase your blood pressure. Kidney dialysis. This process cleans your blood if your kidneys have failed. Surgery to remove infected tissue. Blood transfusion if needed. Medicine to prevent blood clots. Nutrients to correct imbalances in basic body function (metabolism). You may: ? Receive important salts and minerals (electrolytes) through an IV. ? Have your blood sugar level adjusted. Follow these instructions at home: Medicines Take ohxh-ofl-nuprifx and prescription medicines only as told by your health care provider. If you were prescribed an antibiotic, antiviral, or antifungal medicine, take it as told by your health care provider. Do not stop taking the medicine even if you start to feel better. General instructions If you have a catheter or other indwelling device, ask to have it removed as soon as possible. Keep all follow-up visits as told by your health care provider. This is important. Contact a health care provider if: You do not feel like you are getting better or regaining strength. You are having trouble coping with your recovery. You frequently feel tired. You feel worse or do not seem to get better after surgery. You think you may have an infection after surgery. Get help right away if: You have any symptoms of sepsis. You have difficulty breathing. You have a rapid or skipping heartbeat. You become confused or disoriented. You have a high fever. Your skin becomes blotchy, pale, or blue. You have an infection that is getting worse or not getting better. These symptoms may represent a serious problem that is an emergency. Do not wait to see if the symptoms will go away. Get medical help right away. Call your local emergency services (911 in the [place] Do not drive yourself to the hospital. Summary Sepsis is a medical emergency that requires immediate treatment in a hospital. This condition is caused by a severe reaction to infections from bacteria, viruses, or fungus. Based on the cause of your infection, you may be given an antibiotic, antiviral, or antifungal medicine. Treatment may also include IV fluids, breathing assistance, and kidney dialysis. This information is not intended to replace advice given to you by your health care provider. Make sure you discuss any questions you have with your health care provider. Document Released: 03/15/2004 Document Revised: 01/23/2019 Document Reviewed: 01/23/2019 [employer] Patient Education 2020 [employer] Additional Information VACCINATE! IT SAVES LIVES! Members of the community who have not yet received the COVID-19 vaccine and would like to receive it can visit one of [facility] vaccine clinics. There are many vaccine clinic locations within the [facility]. For locations and available times, please visit https://gettheshot.coronavirus.[place].gov/. It is important to note that some COVID mobile vaccine clinics are held outdoors and may be canceled in rainy or stormy conditions. To learn more about pediatric vaccinations (ages 5-11), we invite you to visit the [employer] [facility] webpage. https://www.[facility].org/pages/6264-Lfeom-Omgphpttmdp-Dttknkmaln-Pjrws-Rgw stions.htmlTo learn more about the COVID-19 vaccine, we invite you to visit the CDC website for a list of frequently asked questions.https://www.cdc.gov/coronavirus/2019-ncov/vaccines/faq.html [employer] Patient Portal Access Instructions: Stay connected with your healthcare team and access your personal medical information anytime with the [employer] Patient Portal. Please follow the directions below to create your [employer] account: 1.Access the email account you provided upon registration to the hospital/physician office.2.Look for an invitation email from [facility].3.Open the email and access the invitation link: AcceptInvitation to [employer].4.Fill in the required wetzel to create your account. To access your account, visit [employer]CloudAcademysantosht. Click the blue button labeled Access Patient Portal and then log in with the username and password that you created in the steps above. You will be able to view your test results, lab results, a summary of your visits, upcoming appointments and more. There is also a convenient messaging option where you can send secure messages to your p rovider. In addition, you will have the ability to download any documents or summaries to your computer and/or send the information securely to a physician. Remember that your healthcare information is confidential, so carefully consider who you will allowto register on the [facility] Portal for access to your information. You can also access the [facility] on the [facility] patrizia. Simply click on Patient Portal and then log into your account. If you would like to receive a full copy of your medical records, please contact the [facility] Medical Records Department by calling [phone], Saturday through Saturday between 8 a.m. and 4:30 p.m. HOW TO SAFELY DISPOSE OF PRESCRIPTION MEDICATIONS Please use one of the following methods to safely dispose of your unused medications. 1.Use a drug disposal kit: the drug disposal pouch allows you to safely discard your old and unuseddrugs. Ask your nurse to give you one when you are discharged.2.Visit a local take-back location: Many local pharmacies and police departments have programs that collect old and unwanted prescriptiondrugs. Call your local pharmacy or go to http://nooked.[employer]/4U6Wd6i to find one close to you.3.Make use of household items: Use cat litter or old coffee grounds to dispose medications if other options arenot available. Mix your drugs with these household products, seal them in an airtight container andthrow it into the garbage. Call [facility]: [phone] to be sure your drugs can be disposed of in this way. Some medicines may require a different approach.4.Never flush your medications down the toilet. IF YOU HAVE BEEN PRESCRIBED AN OPIOID FOR PAIN If you have been prescribed an opioid (such as hydrocodone, oxycodone or morphine), it is critical to understand the possible side effects and risks of opioid pain medications. Even when taken as directed, opioids can have several side effects including: Tolerance, meaning you might need to take more of a medication for the same pain relief. Nausea, vomiting and/or constipation. Sleepiness, dizziness, dry mouth, confusion, depression or itching. Physical dependence, meaning you have withdrawal symptoms when a medication is stopped, can develop within a few days. KNOW YOUR RESPONSIBILITIES It is important to know exactly how much and how often to take the opioid pain medications you are prescribed. Never take opioids in higher amounts or more often than prescribed. Do not combine opioids with alcohol or other drugs that cause drowsiness, such as benzodiazepines, also known as benzos, including diazepam and alprazolam, muscle relaxants or sleep aids. Never sell or share prescription opioids. This is illegal. Store opioids in a secure place and out of reach of others (including children, family, friends and visitors). The last page of this document has been signed and retained as a CHART COPY. Signatures Patient Education Materials Surgical Drain Home Care Sepsis, Diagnosis, Adult Medication Leaflets My discharge plan and instructions have been reviewed and explained to me and I,CLARISSE PEGUERO understand my current condition and have read and understand these discharge instructions. I have received a written copy of the plan/instructions. If I have questions, I am aware that I should contact my doctor. 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: Date/Time: Relationship to Patient: Witness Name/Signature: Date/Time: [id number] Discharge summary Date of Service 03/16/24 Discharge Diagnosis Acute diverticulitis with concern for microperforation and large abscess formation Concern for intrahepatic abscess Right ureter obstructive uropathy with mild hydronephrosis Streptococcal bacteremia Leukocytosis Hypokalemia Anemia Elevated troponin in setting of infection, likely Type II HI Hx of DVT Obesity Additional Orders: Ordered: BMP,03/16/24 5:00:00 EDT, Next AM Draw (one day only), Blood, Once, Stop date 03/16/24 5:00:00 EDT Other status: CBC,03/16/24 5:00:00 EDT, Next AM Draw (one day only), Blood, Once, Stop date 03/16/24 5:00:00 EDT(Complete) Ordered: Discharge,03/16/24 12:20:00 EDT, Discharged to: Home Ordered: Discharge Activity,Resume your pre-hospitalization activity, 03/16/24 12:20:00 EDT Ordered: Discharge Diet,No changes were made to your diet during your hospital stay. Please resume your pre hospitalization diet on discharge., 03/16/24 12:20:00 EDT Ordered: Discharge Return to Work, School, or Sports,May return to: work, return to work on 03/23/24, 03/16/24 12:20:00 EDT Ordered: cefdinir 300 mg oral capsule,Dose : 300 mg = 1 cap(s), Oral, q12h, X 21 day(s), # 42 cap(s), 0 Refill(s), 04/06/24 12:11:00 EDT, Pharmacy: [facility], 160, cm, 03/09/24 3:39:00 EDT, Height, 113, kg, 03/09/24 3:39:00 EDT, Dosing Weight Ordered: metroNIDAZOLE 500 mg oral tablet,Dose : 500 mg = 1 tab(s), Oral, TID, X 21 day(s), # 63 tab(s), 0 Refill(s), 04/06/24 12:11:00 EDT, Pharmacy: [facility], 160, cm, 03/09/24 3:39:00 EDT, Height, 113, kg, 03/09/24 3:39:00 EDT, Dosing Weight Hospital Course 43-year-old female with past medical history of DVT and obesity. Patient presented to [facility] for complaints of abdominal pain with loose bowel movements over the past several days. CT of abdomenpelvis performed at [facility] showed evidence of a diverticulitis with possible small perforationand abscess formation. Patient also noted to have elevated troponins peaking at 230. EKG read sinusrhythm without ischemia. Patient transferred to [facility] on 03/09/2024 for further evaluation. Lab work at [facility] showed leukocytosis of 13, hemoglobin was 7, potassium 3.4. Lactic acid was 1.5. Troponin was 80. COVID/flu/RSV negative. C. difficile PCR was negative. Urine culture showed no growth. Patient was started on broad-spectrum antibiotic of Zosyn. General surgery recommended conservative treatment for diverticulitis, her diet was advanced. Cardiology was consulted for elevated troponin, felt this was a type II HI in setting of infection, recommended echocardiogram and o utpatient stress test. Hospital stay complicated with streptococcal bacteremia and persistent fevers. Doppler of bilateral lower extremity completed showed no evidence of DVT. Echocardiogram completed showed an EF of 60-65% with no wall motion abnormalities, normal diastolic function. No gross vegetation was seen. CT of abdomen pelvis completed 03/12/2024 showed large abscess within the rectouterine pouch secondary to diverticulitis which is causing obstructive uropathy of the right ureter and mid right sided hydronephrosis. Hypodense right liver lobe lesion measures 1.8 x 1.4 cm concerning for intrahepatic abscess. Patient underwent CT-guided pelvic drainage catheter placement in IR on 2023. The patient's wound cultures grew E. coli, Klebsiella, strep and Clostridium. Infectious disease recommended cefdinir and Flagyl for 21 days at discharge. Patient was evaluated by urology and felt obstructive uropathy will likely resolve once abscess improved. Patient will follow-up with urology within 1 to 2 weeks at discharge. General surgery followed, patient will need close follow-up with general surgery and IR for future imaging. The patient will follow-up with ID in 2 weeks. She will also follow-up with GI for future colonoscopy. The patient is stable for discharge home today. Case discussed with Dr. Phillips. Allergies NKA Consults Consult to Physician - Ordered -- 03/09/24 4:06:00 EDT, ABDIRAHMAN MANCIA MD, Routine, diverticulitis with poss perf Consult to Physician - Ordered -- 03/09/24 4:19:00 EDT, MILLI BRIZUELA MD, Routine, elevated troponin Consult to Physician - Ordered -- 03/10/24 14:58:00 EDT, LELE PEÑA MD, Routine, Bacteremia Consult to Physician - Ordered -- 03/12/24 14:37:00 EDT, CHARI GORDON MD, Routine, obstructive uropathy of the right ureter and mild right-sidedhydronephrosis. Imaging Results and Diagnostics IR Aspiration/Drainage Result Date: March 13, 2024 Verified By: IRMA SHAH DO CLINICAL STATEMENT: IMPRESSION: Successful CT guided placement of 10 Jordanian pelvic abscess drainage catheterplacement. 115 mL frankly purulent fluid removed. Specimen sent forlaboratory evaluation. Complete evacuation of abscess cavity achieved.Agustin-Mott drainage bulb applied. No complication suggested. CT Abd/Pelvis w/ IV Contrast Only Result Date: March 12, 2024 Verified By: ADELINE SHEPPARD MD CLINICAL STATEMENT: IMPRESSION: Large abscess within the rectouterine pouch secondary to diverticulitis whichis causingobstructive uropathy of the right ureter and mild right-sidedhydronephrosis. Hypodense right liver lobe lesion measures 1.8 by 1.4 cm. This is concerningfor an intrahepatic abscess. Attention on follow-up. If chronicallypersistent consider MRI of the liver to exclude an underlying neoplasm. I have personally reviewed the images of this examination and agree with theresident's findings and interpretation. Physical Exam Vitals and Measurements T: 36.7 C (Oral) TMIN: 36.6 C (Oral) TMAX: 36.7 C (Oral) HR: 83 RR: 18 BP: 114/72 SpO2: 97% Weight Dosing Weight: 113 kg (03/09/24) General: No acute distress. Alert and Appropriate Skin: No rash. Warm, Dry HEENT: Head is normocephalic and atraumatic. No lesions. Pupils equal in size. Extraocular movements within normal limits. Nose: No septal deviation. Mouth: Oropharynx mucosa is without lesion. Neck: Supple. No lymphadenopathy, thyromegaly noted. Lungs: Bilaterally clear/diminished breath sounds with no crepitation or wheeze. Unlabored on room air Cardiovascular: Heart is regular rhythm, S1S2, No extra-audible heart tones Abdomen: Abdomen is soft, nontender. Obese. Bowel sounds positive all four quadrants. Extremities: No clubbing, cyanosis. Peripheral and distal pulses palpable. No calf tenderness. Adequate peripheral circulation. Neurological: The patient is awake, oriented to time, people and place. Following simple commands, moving all extremities. Code Status Code Status - Ordered -- 03/09/24 3:59:00 EDT, Full Code, Constant Order Admission Date 03/09/24 Discharge Date 03/16/24 Patient Instructions Please continue antibiotics of cefdinir and Flagyl for 21 days. Please flush drain with normal saline once a day Please follow-up with infectious disease, IR and general surgery within 2 to 4 weeks. Please follow up with GI for colonoscopy Please keep scheduled appointment with urology on 04/16/2024 Follow-up with your family doctor within 1 week Return to the ED for new or worsening symptoms Medications New Prescription cefdinir (cefdinir 300 mg oral capsule)1 cap by mouth every 12 hours for 21 Days. Refills: 0. metroNIDAZOLE (metroNIDAZOLE 500 mg oral tablet)1 tab(s) by mouth three (3) times a day for 21 Days. Refills: 0. Unchanged omeprazole (PriLOSEC OTC)40 Milligram by mouth once a day. patient buys OTC. Follow Up Follow Up with ROSA LOVE When:Within 1-2 days Where:[address] [facility] [address] [facility] [place] [address] [phone] Business (1) Additional Information: please keep scheduled apt on 04/16/24 Follow Up with SANTOS CH When:Within 1-2 days Where:[facility] [address] [place] [address] [phone] Business (1) Additional Information: follow up for 2 weeks Follow Up with NOEL EASTMAN When:Within 1-2 days Where:[address] [facility] [place] [address]- Business (1) Additional Information: please follow up with GI for colonoscopy Follow Up with JAMES WILCOX MD When:Within 1-2 days Where:[address] [place] [address]- Additional Information: Please call the office to schedule a hospital follow-up appointment Follow Up with IRMA SHAH DO, [facility] Where:[address] [place] [address] [facility] [address]- [phone] Additional Information: As needed, call [phone] with questions regarding your abscess drainage catheter. Plan for a follow up in 1-[address] scan and drainage catheter evaluation at [facility]. Follow Up with ARLENE RODRIGEZ MD, Surgery When:03/27/2024 10:00 AM EDT Where:[address] [facility] [address] [place] [address]- [phone] Additional Information: follow up within 2-4 weeks Discharge Diet Discharge Diet - Ordered -- No changes were made to your diet during your hospital stay. Please resume your pre hospitalization diet on discharge., 03/16/24 12:20:00 EDT Discharge Activity Discharge Activity - Ordered -- Resume your pre-hospitalization activity, 03/16/24 12:20:00 EDT Discharge Return to Work, School, or Sports - Ordered -- May return to: work, return to work on 03/23/24, 03/16/24 12:20:00 EDT Condition on Discharge stable Discharge Disposition home Information Provided To patient Time Spent 32 minutes Digitally Signed by CLEMENT SHABAZZ on 03/16/2024 12:23 PM Digitally Signed by CONCHITA PHILLIPS DO on 03/16/2024 01:02 PM [id number] Infectious disease Progress note Subjective Patient was not available for examination labs and notes reviewed no new complaints Patient has remained afebrile the past 24 hours Objective Vitals and Measurements T: 36.7 C (Oral) TMIN: 36.6 C (Oral) TMAX: 36.7 C (Oral) HR: 83 RR: 18 BP: 114/72 SpO2: 97% Intake and Output 7AM Yesterday to 7AM Today Intake and Output (Last 24 hours) Intake Oral Intake 1400.00 Output Surgical Drain, Tube Output: 30.00 Stool Count 11.00 Urine Count 12.00 Total Summary Total Intake 1400.00 Total Output 30.00 Fluid Balance 1370.00 Physical Exam Weight Dosing Weight: 113 kg (03/09/24) Medications Medications (10) Active Scheduled: (4) enoxaparin 40 mg/ 0.4mL syringe 40 mg 0.4 mL, Subcutaneous, qDay micafungin 100 mg, IV Piggyback, qDay omeprazole [address] capsule 40 mg 1 cap(s), Oral, qDay piperacillin-tazobactam PMX 4.5 gram(s) 100 mL, IV Piggyback, q8h Continuous: (0) PRN: (6) acetaminophen 325 mg Tablet 650 mg 2 tab(s), Oral, q4h acetaminophen 325 mg Tablet 650 mg 2 tab(s), Oral, q4h albuterol - ipratropium 2.5 mg-0.5 mg/3 mL Inhal Cristina UD 3 mL, Inhalation, q4hRT dextrose 50% Solution Disp syringe 50 mL 12.5 gram(s) 25 mL, IV Push, AsDirected HYDROmorphone 0.5 mg/0.5 mL PF syringe 0.25 mg 0.25 mL, IV Push, q3h ondansetron 2 mg/ 1 mL 2 mL INJ 4 mg 2 mL, IV Push, q4h Lab Results 03/15 06:54 WBC: 11.0 H Hgb: 8.7 L Hct: 28.5 L Platelet: 409 Glucose Level: 99 Sodium Level: 140 Potassium Level: 4.2 BUN: 6.0 L Creatinine Lvl (s): 0.54 Imaging Results and Diagnostics IR Aspiration/Drainage Result Date: March 13, 2024 Verified By: IRMA SHAH DO CLINICAL STATEMENT: IMPRESSION: Successful CT guided placement of 10 Jordanian pelvic abscess drainage catheterplacement. 115 mL frankly purulent fluid removed. Specimen sent forlaboratory evaluation. Complete evacuation of abscess cavity achieved.Agustin-Mott drainage bulb applied. No complication suggested. CT Abd/Pelvis w/ IV Contrast Only Result Date: March 12, 2024 Verified By: ADELINE SHEPPARD MD CLINICAL STATEMENT: IMPRESSION: Large abscess within the rectouterine pouch secondary to diverticulitis whichis causingobstructive uropathy of the right ureter and mild right-sidedhydronephrosis. Hypodense right liver lobe lesion measures 1.8 by 1.4 cm. This is concerningfor an intrahepatic abscess. Attention on follow-up. If chronicallypersistent consider MRI of the liver to exclude an underlying neoplasm. I have personally reviewed the images of this examination and agree with theresident's findings and interpretation. EKG No qualifying data available. Assessment/Plan large abscess within the rectouterine pouch Right hydronephrosis Streptococcal bacteremia diverticulitis with concern of microperforation and abscess formation Leukocytosis Fever Concern for UTI Hypodense right liver lobe lesion concerning for an intrahepatic abscess This is a 43-year-old female with no significant past medical history that presents with chief complaint of abdominal pain. The patient asked complaints that she had sharp sudden onset lower quadrantabdominal pain, has had loose bowel movements for the last several days. Proceeded to the [facility] for further evaluation. In , CTAP performed revealed evidence of diverticulitis with possible small perforation, abscess formation. General surgery consulted and recommended their service to be consulted in the morning. Patient was initiated on IV Zosyn upon arrival to . Additionally, cardiology consulted given troponin elevation, up to 230. EKG did not demonstrate ACS, recommendation made to be initiated on heparin drip. CBC with hemoglobin of 9.4, CMP with potassium of 3.1. ID was consulted for bacteremia. C. difficile PCR is negative initial blood cultures x 2 sets on 03/08 positive for Streptococcus anguinous. Repeat blood cultures show no growth to date echocardiogram with no reportable vegetations Urine culture shows no growth CT scan of the abdomen pelvis revealed a large abscess within the rectouterine pouch secondary to diverticulitis which is causing obstructive uropathy of the right ureter and mild right hydronephrosis. Hypodense right liver lobe lesion measures 1.8 by 1.4 cm. This is concerning for an intrahepatic abscess Urology was consulted in regards to right hydronephrosis. No plans for ureteral stent placement. Plan is a follow-up with renal ultrasound in outpatient setting Patient underwent IR pelvic drainage catheter placement with 115 cc of marian purulent fluid removed. Pelvic drainage cultures revealing E. coli, Klebsiella, Clostridium We will stop IV Zyvox and continue IV Mycamine and Zosyn while in house IR continues to follow patient, they are recommending IR to follow output from drain, outpatient orders have been placed into her for CT scan abdomen pelvis as well as IR drainage catheter evaluationin 1 to 2 weeks after discharge Discussed the plan of care with the primary team, we agreed on oral cefdinir and Flagyl for 21 daysand to follow-up with general surgery and IR very closely and follow with me as needed based on theabove in 4 to 5 weeks Will follow as needed Call for questions I was present for Carmen Lewis LPN , and personally directed, all components of the patient's complete evaluation and management documented by the scribe today. I have personally examined the patient and reviewed all diagnostic data. I have reviewed all of this documentation by the scribe. It documents the history obtained, examination performed, diagnostic testing results compiled by him/her,and discharge information. Digitally Signed by Carmen Lewis on 03/16/2024 10:58 AM Digitally Signed by SANTOS CH BA, MD on 03/16/2024 03:17 PM [id number] Progress note Date of Service 03/16/2024 Chief Complaint Pain at drain insertion site Subjective This is a split shared visit between myself and Dr. Rodrigez. Patient resting comfortably in bed. Having mild tenderness at drain insertion site to right buttock. Left-sided abdominal pain is essentially resolved. Having no nausea or vomiting. Passing flatus. Having bowel movements and tolerating regular diet. Objective Vitals and Measurements T: 36.7 C (Oral) TMIN: 36.6 C (Oral) TMAX: 36.7 C (Oral) HR: 83 RR: 18 BP: 114/72 SpO2: 97% Intake and Output 7AM Yesterday to 7AM Today Intake and Output (Last 24 hours) Intake Oral Intake 1400.00 Output Surgical Drain, Tube Output: 30.00 Stool Count 11.00 Urine Count 12.00 Total Summary Total Intake 1400.00 Total Output 30.00 Fluid Balance 1370.00 Physical Exam General -alert and oriented x4, answers questions appropriately. In no acute distress. HEENT -normocephalic. Cardiovascular -S1-S2, regular rate and rhythm. Respiratory -easy unlabored respirations. Chest rise symmetrical. Abdomen/GI -soft, obese/rounded, nontender, bowel sounds present. Nondistended. Right buttock LYLA drain in place with thick sanguinous drainage. Musculoskeletal -VALLEJO x4. Psychiatric -calm and cooperative. Skin -normal for ethnicity. Weight Dosing Weight: 113 kg (03/09/24) Medications Medications (10) Active Scheduled: (4) enoxaparin 40 mg/ 0.4mL syringe 40 mg 0.4 mL, Subcutaneous, qDay micafungin 100 mg, IV Piggyback, qDay omeprazole [address] capsule 40 mg 1 cap(s), Oral, qDay piperacillin-tazobactam PMX 4.5 gram(s) 100 mL, IV Piggyback, q8h Continuous: (0) PRN: (6) acetaminophen 325 mg Tablet 650 mg 2 tab(s), Oral, q4h acetaminophen 325 mg Tablet 650 mg 2 tab(s), Oral, q4h albuterol - ipratropium 2.5 mg-0.5 mg/3 mL Inhal Cristina UD 3 mL, Inhalation, q4hRT dextrose 50% Solution Disp syringe 50 mL 12.5 gram(s) 25 mL, IV Push, AsDirected HYDROmorphone 0.5 mg/0.5 mL PF syringe 0.25 mg 0.25 mL, IV Push, q3h ondansetron 2 mg/ 1 mL 2 mL INJ 4 mg 2 mL, IV Push, q4h Lab Results 03/15 06:54 WBC: 11.0 H Hgb: 8.7 L Hct: 28.5 L Platelet: 409 Glucose Level: 99 Sodium Level: 140 Potassium Level: 4.2 BUN: 6.0 L Creatinine Lvl (s): 0.54 EKG No qualifying data available. Assessment/Plan 43-year-old female who is hospital day #8 with complicated diverticulitis requiring percutaneous drainage on 03/13/2024. Patient is overall feeling much better this morning and having essentially no left-sided abdominal pain. Main discomfort is from drain insertion site to her right buttock. She is tolerating regular diet and having bowel function. Plan -Okay for discharge home on oral antibiotics per surgery standpoint. -Patient to follow-up with Dr. Rodrigez in the office in 2 to 3 weeks. -Continue drain care as ordered. -No further orders from a surgical standpoint. Please call with any further questions or concerns. Case discussed with Dr. Rodrigez, see addendum to follow. Digitally Signed by MADIHA ZAIDI on 03/16/2024 10:22 AM [id number] Progress note Date of Service 03/16/2024 Chief Complaint Pain at drain insertion site Subjective This is a split shared visit between myself and Dr. Rodrigez. Patient resting comfortably in bed. Having mild tenderness at drain insertion site to right buttock. Left-sided abdominal pain is essentially resolved. Having no nausea or vomiting. Passing flatus. Having bowel movements and tolerating regular diet. Objective Vitals and Measurements T: 36.7 C (Oral) TMIN: 36.6 C (Oral) TMAX: 36.7 C (Oral) HR: 83 RR: 18 BP: 114/72 SpO2: 97% Intake and Output 7AM Yesterday to 7AM Today Intake and Output (Last 24 hours) Intake Oral Intake 1400.00 Output Surgical Drain, Tube Output: 30.00 Stool Count 11.00 Urine Count 12.00 Total Summary Total Intake 1400.00 Total Output 30.00 Fluid Balance 1370.00 Physical Exam General -alert and oriented x4, answers questions appropriately. In no acute distress. HEENT -normocephalic. Cardiovascular -S1-S2, regular rate and rhythm. Respiratory -easy unlabored respirations. Chest rise symmetrical. Abdomen/GI -soft, obese/rounded, nontender, bowel sounds present. Nondistended. Right buttock LYLA drain in place with thick sanguinous drainage. Musculoskeletal -VALLEJO x4. Psychiatric -calm and cooperative. Skin -normal for ethnicity. Weight Dosing Weight: 113 kg (03/09/24) Medications Medications (10) Active Scheduled: (4) enoxaparin 40 mg/ 0.4mL syringe 40 mg 0.4 mL, Subcutaneous, qDay micafungin 100 mg, IV Piggyback, qDay omeprazole [address] capsule 40 mg 1 cap(s), Oral, qDay piperacillin-tazobactam PMX 4.5 gram(s) 100 mL, IV Piggyback, q8h Continuous: (0) PRN: (6) acetaminophen 325 mg Tablet 650 mg 2 tab(s), Oral, q4h acetaminophen 325 mg Tablet 650 mg 2 tab(s), Oral, q4h albuterol - ipratropium 2.5 mg-0.5 mg/3 mL Inhal Cristina UD 3 mL, Inhalation, q4hRT dextrose 50% Solution Disp syringe 50 mL 12.5 gram(s) 25 mL, IV Push, AsDirected HYDROmorphone 0.5 mg/0.5 mL PF syringe 0.25 mg 0.25 mL, IV Push, q3h ondansetron 2 mg/ 1 mL 2 mL INJ 4 mg 2 mL, IV Push, q4h Lab Results 03/15 06:54 WBC: 11.0 H Hgb: 8.7 L Hct: 28.5 L Platelet: 409 Glucose Level: 99 Sodium Level: 140 Potassium Level: 4.2 BUN: 6.0 L Creatinine Lvl (s): 0.54 EKG No qualifying data available. Assessment/Plan 43-year-old female who is hospital day #8 with complicated diverticulitis requiring percutaneous drainage on 03/13/2024. Patient is overall feeling much better this morning and having essentially no left-sided abdominal pain. Main discomfort is from drain insertion site to her right buttock. She is tolerating regular diet and having bowel function. Plan -Okay for discharge home on oral antibiotics per surgery standpoint. -Patient to follow-up with Dr. Rodrigez in the office in 2 to 3 weeks. -Continue drain care as ordered. -No further orders from a surgical standpoint. Please call with any further questions or concerns. Case discussed with Dr. Rodrigez, see addendum to follow. Digitally Signed by MADIHA ZAIDI on 03/16/2024 10:22 AM [id number] Interventional radiology Progress note Interventional Radiology Progress Note IR Procedure 10 Fr pelvic abscess drainage catheter insertion - 03/13/2024 Subjective 43-year-old female with history of diverticular abscess post abscess drainage catheter insertion on03/13/2024. Patient presented to [facility] with complaints of abdominal pain, fever and diarrhea. CT of the abdomen and pelvis performed at that time demonstrated diverticulitis with associated pelvic abscess. Patient was transferred to [facility] on 03/09/2024 for further management. Because the patient had persistent fevers despite IV antibiotics, a repeat CT of the abdomen and pelvis was ordered on 03/12/2024. Those results demonstrated a large retrouterine abscess leading to obstructiveuropathy with right hydronephrosis. Urology has been consulted and is following. Findings also demonstrated a small 1.8 cm x 1.4 cm right intrahepatic abscess as well. IR was then asked to place a pelvic abscess drain, which was performed on 03/13/2024. This morning the patient has no acute complaints as it relates to her abscess drain. She reports ithas been draining well. Physical Exam Vitals: Gsxyxwnkces87.7 (07:35) Systolic Blood Dpowepno724 (07:35) Diastolic Blood Zwnwxxrk57 (07:35) Pulse83 (07:35) PtP555 (07:35) Respiratory RateNo result General: Alert, nontoxic, no acute distress, resting comfortably. Abdomen: Soft. RIGHT buttock is with a 10 Fr abscess drainage catheter with dressings that are clean, dry and intact. Nontender to palpate. Small kink is noted in the drainage catheter due to placement within the patient's bottoms. Once straightened out, actively drainage light purulent/serosanguineous fluid into LYLA bulb. Easily flushes and aspirates with 10 mL NS flush. The remainder of the physical exam is noncontributory. Labs Relevant labs reviewed. Output Intake and Output (Last 24 hours) Intake Oral Intake 1400.00 Output Surgical Drain, Tube Output: 30.00 Stool Count 11.00 Urine Count 12.00 Total Summary Total Intake 1400.00 Total Output 30.00 Fluid Balance 1370.00 Imaging IR Aspiration/Drainage Result Date: March 13, 2024 Verified By: IRMA SHAH DO CLINICAL STATEMENT: IMPRESSION: Successful CT guided placement of 10 Jordanian pelvic abscess drainage catheterplacement. 115 mL frankly purulent fluid removed. Specimen sent forlaboratory evaluation. Complete evacuation of abscess cavity achieved.Agustin-Mott drainage bulb applied. No complication suggested. CT Abd/Pelvis w/ IV Contrast Only Result Date: March 12, 2024 Verified By: ADELINE SHEPPARD MD CLINICAL STATEMENT: IMPRESSION: Large abscess within the rectouterine pouch secondary to diverticulitis whichis causingobstructive uropathy of the right ureter and mild right-sidedhydronephrosis. Hypodense right liver lobe lesion measures 1.8 by 1.4 cm. This is concerningfor an intrahepatic abscess. Attention on follow-up. If chronicallypersistent consider MRI of the liver to exclude an underlying neoplasm. I have personally reviewed the images of this examination and agree with theresident's findings and interpretation. Assessment/Treatment Plan 43-year-old female with diverticular abscess Day #3 post pelvic abscess drainage catheter placement. Drainage catheter has been functioning well. Patient reports feeling better since drain placement.WBC's are trending down, afebrile. ID following cultures and adjusting medications accordingly. Urology following obstructive uropathy which will likely resolve once abscess is resolved. There is note of a small intrahepatic abscess as well - this is too small for drainage catheter placement at this time. Management and follow up was discussed and reviewed with the patient and family. Recommend removal of abscess drainage catheter when daily output <10 cc and imaging shows resolution of abscess. Will plan for follow-up with IR 1-2 weeks after discharge for CT abd/pelvis and drainage catheter evaluation to evaluate abscess and possibly remove drain. IR Follow Up Plan - IR to follow output - Outpatient orders have been placed for CT abdomen and pelvis as well as IR drainage catheter evaluation to be done 1-2 weeks after discharge. - Patient provided with Rx for saline flushes to flush abscess drain once daily at home. Polina Donovan PA-C Interventional Radiology Pager: [phone] IR dept: x [phone] Available on [employer] Digitally Signed by POLINA DONOVAN PA-C on 03/16/2024 09:15 AM [id number] Note NEGATIVE FOR MALIGNANCY. Marked acute inflammation present. [facility] 09-16-2024 Note NEGATIVE FOR MALIGNANCY. Marked acute inflammation present. [facility] 09-16-2024 Note NEGATIVE FOR MALIGNANCY. Marked acute inflammation present. [facility] 09-16-2024 Note NEGATIVE FOR MALIGNANCY. Marked acute inflammation present. [facility] 09-16-2024 Note NEGATIVE FOR MALIGNANCY. Marked acute inflammation present. [facility] 09-16-2024 Note NEGATIVE FOR MALIGNANCY. Marked acute inflammation present. [facility] 09-16-2024 Interventional radiology Progress note Interventional Radiology Progress Note IR Procedure 10 Fr pelvic abscess drainage catheter insertion - 03/13/2024 Subjective 43-year-old female with history of diverticular abscess post abscess drainage catheter insertion on03/13/2024. Patient presented to [facility] with complaints of abdominal pain, fever and diarrhea. CT of the abdomen and pelvis performed at that time demonstrated diverticulitis with associated pelvic abscess. Patient was transferred to [facility] on 03/09/2024 for further management. Because the patient had persistent fevers despite IV antibiotics, a repeat CT of the abdomen and pelvis was ordered on 03/12/2024. Those results demonstrated a large retrouterine abscess leading to obstructiveuropathy with right hydronephrosis. Urology has been consulted and is following. Findings also demonstrated a small 1.8 cm x 1.4 cm right intrahepatic abscess as well. IR was then asked to place a pelvic abscess drain, which was performed on 03/13/2024. This morning the patient has no acute complaints as it relates to her abscess drain. She reports ithas been draining well. Physical Exam Vitals: Ivkpkjtoovy46.7 (07:35) Systolic Blood Ydhjusaf930 (07:35) Diastolic Blood Irxghhak48 (07:35) Pulse83 (07:35) FfA814 (07:35) Respiratory RateNo result General: Alert, nontoxic, no acute distress, resting comfortably. Abdomen: Soft. RIGHT buttock is with a 10 Fr abscess drainage catheter with dressings that are clean, dry and intact. Nontender to palpate. Small kink is noted in the drainage catheter due to placement within the patient's bottoms. Once straightened out, actively drainage light purulent/serosanguineous fluid into LYLA bulb. Easily flushes and aspirates with 10 mL NS flush. The remainder of the physical exam is noncontributory. Labs Relevant labs reviewed. Output Intake and Output (Last 24 hours) Intake Oral Intake 1400.00 Output Surgical Drain, Tube Output: 30.00 Stool Count 11.00 Urine Count 12.00 Total Summary Total Intake 1400.00 Total Output 30.00 Fluid Balance 1370.00 Imaging IR Aspiration/Drainage Result Date: March 13, 2024 Verified By: IRMA SHAH DO CLINICAL STATEMENT: IMPRESSION: Successful CT guided placement of 10 Jordanian pelvic abscess drainage catheterplacement. 115 mL frankly purulent fluid removed. Specimen sent forlaboratory evaluation. Complete evacuation of abscess cavity achieved.Agustin-Mott drainage bulb applied. No complication suggested. CT Abd/Pelvis w/ IV Contrast Only Result Date: March 12, 2024 Verified By: ADELINE SHEPPARD MD CLINICAL STATEMENT: IMPRESSION: Large abscess within the rectouterine pouch secondary to diverticulitis whichis causingobstructive uropathy of the right ureter and mild right-sidedhydronephrosis. Hypodense right liver lobe lesion measures 1.8 by 1.4 cm. This is concerningfor an intrahepatic abscess. Attention on follow-up. If chronicallypersistent consider MRI of the liver to exclude an underlying neoplasm. I have personally reviewed the images of this examination and agree with theresident's findings and interpretation. Assessment/Treatment Plan 43-year-old female with diverticular abscess Day #3 post pelvic abscess drainage catheter placement. Drainage catheter has been functioning well. Patient reports feeling better since drain placement.WBC's are trending down, afebrile. ID following cultures and adjusting medications accordingly. Urology following obstructive uropathy which will likely resolve once abscess is resolved. There is note of a small intrahepatic abscess as well - this is too small for drainage catheter placement at this time. Management and follow up was discussed and reviewed with the patient and family. Recommend removal of abscess drainage catheter when daily output <10 cc and imaging shows resolution of abscess. Will plan for follow-up with IR 1-2 weeks after discharge for CT abd/pelvis and drainage catheter evaluation to evaluate abscess and possibly remove drain. IR Follow Up Plan - IR to follow output - Outpatient orders have been placed for CT abdomen and pelvis as well as IR drainage catheter evaluation to be done 1-2 weeks after discharge. - Patient provided with Rx for saline flushes to flush abscess drain once daily at home. Polina Donovan PA-C Interventional Radiology Pager: [phone] IR dept: [phone] Available on [employer] Digitally Signed by POLINA DONOVAN PA-C on 03/16/2024 09:15 AM [id number] Note Date of Service 03/15/24 Chief Complaint Acute diverticulitis with concern for microperforation and large abscess formation Subjective 43-year-old female with past medical history of DVT and obesity. Patient presented to [facility] for complaints of abdominal pain with loose bowel movements over the past several days. CT of abdomenpelvis performed at [facility] showed evidence of a diverticulitis with possible small perforationand abscess formation. Patient also noted to have elevated troponins peaking at 230. EKG read sinusrhythm without ischemia. Patient transferred to [facility] on 03/09/2024 for further evaluation. Lab work at [facility] showed leukocytosis of 13, hemoglobin was 7, potassium 3.4. Lactic acid was 1.5. Troponin was 80. COVID/flu/RSV negative. C. difficile PCR was negative. Urine culture showed no growth. Patient was started on broad-spectrum antibiotic of Zosyn. General surgery recommended conservative treatment for diverticulitis, her diet was advanced. Cardiology was consulted for elevated troponin, felt this was a type II HI in setting of infection, recommended echocardiogram and o utpatient stress test. Hospital stay complicated with streptococcal bacteremia and persistent fevers. Doppler of bilateral lower extremity completed showed no evidence of DVT. Echocardiogram completed showed an EF of 60-65% with no wall motion abnormalities, normal diastolic function. No gross vegetation was seen. Repeat CT of abdomen pelvis pending for today. CT of abdomen pelvis completed 03/12/2024 showed large abscess within the rectouterine pouch secondary to diverticulitis which is causingobstructive uropathy of the right ureter and mid right sided hydronephrosis. Hypodense right liver lobe lesion measures 1.8 x 1.4 cm concerning for intrahepatic abscess. Patient underwent CT-guided pelvic drainage catheter placement in IR on 03/13/2024. Intraoperative cultures are pending. Noted to have worsening leukocytosis, Zyvox and micafungin was added. Patient seen today ambulating in her room. She has some discomfort at drain site otherwise complains of no abdominal pain. No nausea or vomiting. She is eating well. No chest pain or shortness of breath. Objective Vitals and Measurements T: 36.6 C (Oral) TMIN: 36.6 C (Oral) TMAX: 36.7 C (Oral) HR: 74 RR: 16 BP: 105/71 SpO2: 95% Intake and Output 7AM Yesterday to 7AM Today Intake and Output (Last 24 hours) Intake Oral Intake 720.00 Output Surgical Drain, Tube Output: 30.00 Stool Count 10.00 Urine Count 7.00 Total Summary Total Intake 720.00 Total Output 30.00 Fluid Balance 690.00 Physical Exam General: No acute distress. Alert and Appropriate Skin: No rash. Warm, Dry HEENT: Head is normocephalic and atraumatic. No lesions. Pupils equal in size. Extraocular movements within normal limits. Nose: No septal deviation. Mouth: Oropharynx mucosa is without lesion. Neck: Supple. No lymphadenopathy, thyromegaly noted. Lungs: Bilaterally clear/diminished breath sounds with no crepitation or wheeze. Unlabored on room air Cardiovascular: Heart is regular rhythm, S1S2, No extra-audible heart tones Abdomen: Abdomen is soft, nontender. Obese. Bowel sounds positive all four quadrants. Extremities: No clubbing, cyanosis. Peripheral and distal pulses palpable. No calf tenderness. Adequate peripheral circulation. Neurological: The patient is awake, oriented to time, people and place. Following simple commands, moving all extremities. Weight Dosing Weight: 113 kg (03/09/24) Medications Medications (11) Active Scheduled: (5) enoxaparin 40 mg/ 0.4mL syringe 40 mg 0.4 mL, Subcutaneous, qDay linezolid 600 mg 300 mL, IV Piggyback, BID micafungin 100 mg, IV Piggyback, qDay omeprazole [address] capsule 40 mg 1 cap(s), Oral, qDay piperacillin-tazobactam PMX 4.5 gram(s) 100 mL, IV Piggyback, q8h Continuous: (0) PRN: (6) acetaminophen 325 mg Tablet 650 mg 2 tab(s), Oral, q4h acetaminophen 325 mg Tablet 650 mg 2 tab(s), Oral, q4h albuterol - ipratropium 2.5 mg-0.5 mg/3 mL Inhal Cristina UD 3 mL, Inhalation, q4hRT dextrose 50% Solution Disp syringe 50 mL 12.5 gram(s) 25 mL, IV Push, AsDirected HYDROmorphone 0.5 mg/0.5 mL PF syringe 0.25 mg 0.25 mL, IV Push, q3h ondansetron 2 mg/ 1 mL 2 mL INJ 4 mg 2 mL, IV Push, q4h Lab Results 03/15 06:54 WBC: 11.0 H Hgb: 8.7 L Hct: 28.5 L Platelet: 409 Glucose Level: 99 Sodium Level: 140 Potassium Level: 4.2 BUN: 6.0 L Creatinine Lvl (s): 0.54 03/14 07:43 WBC: 17.2 H Hgb: 8.5 L Hct: 27.6 L Platelet: 419 Neutrophil %: 81.2 H Glucose Level: 100 Sodium Level: 136 Potassium Level: 3.8 BUN: 6.0 L Creatinine Lvl (s): 0.51 Imaging Results and Diagnostics IR Aspiration/Drainage Result Date: March 13, 2024 Verified By: IRMA SHAH DO CLINICAL STATEMENT: IMPRESSION: Successful CT guided placement of 10 Jordanian pelvic abscess drainage catheterplacement. 115 mL frankly purulent fluid removed. Specimen sent forlaboratory evaluation. Complete evacuation of abscess cavity achieved.Agustin-Mott drainage bulb applied. No complication suggested. CT Abd/Pelvis w/ IV Contrast Only Result Date: March 12, 2024 Verified By: ADELINE SHEPPARD MD CLINICAL STATEMENT: IMPRESSION: Large abscess within the rectouterine pouch secondary to diverticulitis whichis causingobstructive uropathy of the right ureter and mild right-sidedhydronephrosis. Hypodense right liver lobe lesion measures 1.8 by 1.4 cm. This is concerningfor an intrahepatic abscess. Attention on follow-up. If chronicallypersistent consider MRI of the liver to exclude an underlying neoplasm. I have personally reviewed the images of this examination and agree with theresident's findings and interpretation. EKG No qualifying data available. Assessment/Plan Acute diverticulitis with concern for microperforation and large abscess formation Concern for intrahepatic abscess Right ureter obstructive uropathy with mild hydronephrosis Streptococcal bacteremia Leukocytosis Hypokalemia Anemia Elevated troponin in setting of infection, likely Type II HI Hx of DVT Obesity Plan General Surgery following, no acute surgical intervention is planned Patient underwent CT-guided pelvic drainage catheter placement in IR on 03/13/2024, intraoperative cultures are pending Right-sided obstructive uropathy and intrahepatic abscess likely secondary to large diverticular abscess Urology following, felt once abscess is fully drained, hydronephrosis will resolve, patient will follow-up with urology outpatient Expect resolution of intrahepatic abscess once diverticular abscess fully drained Appreciate ID assistance, continue Zosyn, Zyvox and Micafungin Repeat blood cultures show no growth, echocardiogram showed no evidence of vegetation. Leukocytosisimproved. Doppler of bilateral lower extremity showed no evidence of DVT or SVT Electrolytes are stable Hemoglobin 8.7, no active bleeding. Iron studies reviewed showing an iron saturation of 3%. Status post 3 days of Ferrlecit. Planning for outpatient colonoscopy once infection is resolved. Cardiology followed for elevated troponins, felt this was likely type II HI in setting of infection. Cardiology recommending outpatient stress test. Level of Care Indication Regular Floor DVT Prophylaxis Enoxaparin SQ Maintenance IVF Indication NA / No maintenance IVF Indwelling Urinary Catheter Indication NA No indwelling catheter Anticipated Timeline of Discharge 72+ hours Anticipated DC Disposition Home without services Plan of care discussed with patient Case discussed with Dr. Phillips Digitally Signed by CLEMENT SHABAZZ on 03/15/2024 12:48 PM [id number] [facility] Hospital Progress note Date of Service 03/15/2024 Chief Complaint Abdominal pain diverticulitis Subjective This is a split shared visit to myself and Dr. Méndez. Patient seen resting supine in bed this morning. Denies complaints of abdominal pain, denies nausea or vomiting. Objective Vitals and Measurements T: 36.6 C (Oral) TMIN: 36.6 C (Oral) TMAX: 36.7 C (Oral) HR: 74 RR: 16 BP: 105/71 SpO2: 95% Intake and Output 7AM Yesterday to 7AM Today Intake and Output (Last 24 hours) Intake Oral Intake 720.00 Output Surgical Drain, Tube Output: 30.00 Stool Count 10.00 Urine Count 7.00 Total Summary Total Intake 720.00 Total Output 30.00 Fluid Balance 690.00 Physical Exam General: Awake and alert and in no apparent distress. Able to answer questions and speak in full sentences. Supine in bed. HEENT: Mucous membranes moist and pink. Lungs: Chest rise symmetrical. Respirations unlabored. Clear to auscultation bilaterally. Abdomen: Soft and nontender. Nondistended. No guarding or rigidity. Bowel sounds 4 quadrants. IR drain intact with output noted. Extremities: Freely moving. Skin: Normal color for ethnicity. No pallor or diaphoresis. No jaundice. Psychiatric: Calm and cooperative. Weight Dosing Weight: 113 kg (03/09/24) Medications Medications (11) Active Scheduled: (5) enoxaparin 40 mg/ 0.4mL syringe 40 mg 0.4 mL, Subcutaneous, qDay linezolid 600 mg 300 mL, IV Piggyback, BID micafungin 100 mg, IV Piggyback, qDay omeprazole [address] capsule 40 mg 1 cap(s), Oral, qDay piperacillin-tazobactam PMX 4.5 gram(s) 100 mL, IV Piggyback, q8h Continuous: (0) PRN: (6) acetaminophen 325 mg Tablet 650 mg 2 tab(s), Oral, q4h acetaminophen 325 mg Tablet 650 mg 2 tab(s), Oral, q4h albuterol - ipratropium 2.5 mg-0.5 mg/3 mL Inhal Cristina UD 3 mL, Inhalation, q4hRT dextrose 50% Solution Disp syringe 50 mL 12.5 gram(s) 25 mL, IV Push, AsDirected HYDROmorphone 0.5 mg/0.5 mL PF syringe 0.25 mg 0.25 mL, IV Push, q3h ondansetron 2 mg/ 1 mL 2 mL INJ 4 mg 2 mL, IV Push, q4h Lab Results 03/15 06:54 WBC: 11.0 H Hgb: 8.7 L Hct: 28.5 L Platelet: 409 Glucose Level: 99 Sodium Level: 140 Potassium Level: 4.2 BUN: 6.0 L Creatinine Lvl (s): 0.54 03/14 07:43 WBC: 17.2 H Hgb: 8.5 L Hct: 27.6 L Platelet: 419 Neutrophil %: 81.2 H Glucose Level: 100 Sodium Level: 136 Potassium Level: 3.8 BUN: 6.0 L Creatinine Lvl (s): 0.51 Assessment/Plan Orders: .Auto Differential, Next AM Draw (one day only), Blood, Once, Stop date 03/15/24 7:45:00 EDT, [id number] .Morphology, Next AM Draw (one day only), Blood, Once, Stop date 03/15/24 8:06:00 EDT, [id number] .Neutro Absolute, Next AM Draw (one day only), Blood, Once, Stop date 03/15/24 7:45:00 EDT, [id number] Manual Differential, Next AM Draw (one day only), Blood, Once, Stop date 03/15/24 8:06:00 EDT, [id number] 43-year-old female who was admitted to hospital with complaints of abdominal pain. CT findings showing a large abscess secondary to diverticulitis. She is postprocedure day #2 following IR drain placement.. She remains afebrile and hemodynamically stable. WBC 11.0, Hgb 8.7, BMP unremarkable. Voiding without difficulties. Upon examination this morning, the patient states that she is feeling good. Was able to rest well throughout the night. Abdomen remains soft, nondistended, bowel sounds are present. IR drain remains intact with serosanguineous output noted. Has not spiked any temps over the last 24 hours. Patient is continuing on IV antibiotics per ID. WBCs continue to downtrend. Remained stable from a general surgery standpoint. No new orders at this time. Case discussed with Dr. Méndez, please see addendum to follow. Digitally Signed by MANOLO STERLING on 03/15/2024 10:01 AM [id number] Progress note Date of Service 03/15/2024 Chief Complaint Abdominal pain diverticulitis Subjective This is a split shared visit to myself and Dr. Méndez. Patient seen resting supine in bed this morning. Denies complaints of abdominal pain, denies nausea or vomiting. Objective Vitals and Measurements T: 36.6 C (Oral) TMIN: 36.6 C (Oral) TMAX: 36.7 C (Oral) HR: 74 RR: 16 BP: 105/71 SpO2: 95% Intake and Output 7AM Yesterday to 7AM Today Intake and Output (Last 24 hours) Intake Oral Intake 720.00 Output Surgical Drain, Tube Output: 30.00 Stool Count 10.00 Urine Count 7.00 Total Summary Total Intake 720.00 Total Output 30.00 Fluid Balance 690.00 Physical Exam General: Awake and alert and in no apparent distress. Able to answer questions and speak in full sentences. Supine in bed. HEENT: Mucous membranes moist and pink. Lungs: Chest rise symmetrical. Respirations unlabored. Clear to auscultation bilaterally. Abdomen: Soft and nontender. Nondistended. No guarding or rigidity. Bowel sounds 4 quadrants. IR drain intact with output noted. Extremities: Freely moving. Skin: Normal color for ethnicity. No pallor or diaphoresis. No jaundice. Psychiatric: Calm and cooperative. Weight Dosing Weight: 113 kg (03/09/24) Medications Medications (11) Active Scheduled: (5) enoxaparin 40 mg/ 0.4mL syringe 40 mg 0.4 mL, Subcutaneous, qDay linezolid 600 mg 300 mL, IV Piggyback, BID micafungin 100 mg, IV Piggyback, qDay omeprazole [address] capsule 40 mg 1 cap(s), Oral, qDay piperacillin-tazobactam PMX 4.5 gram(s) 100 mL, IV Piggyback, q8h Continuous: (0) PRN: (6) acetaminophen 325 mg Tablet 650 mg 2 tab(s), Oral, q4h acetaminophen 325 mg Tablet 650 mg 2 tab(s), Oral, q4h albuterol - ipratropium 2.5 mg-0.5 mg/3 mL Inhal Cristina UD 3 mL, Inhalation, q4hRT dextrose 50% Solution Disp syringe 50 mL 12.5 gram(s) 25 mL, IV Push, AsDirected HYDROmorphone 0.5 mg/0.5 mL PF syringe 0.25 mg 0.25 mL, IV Push, q3h ondansetron 2 mg/ 1 mL 2 mL INJ 4 mg 2 mL, IV Push, q4h Lab Results 03/15 06:54 WBC: 11.0 H Hgb: 8.7 L Hct: 28.5 L Platelet: 409 Glucose Level: 99 Sodium Level: 140 Potassium Level: 4.2 BUN: 6.0 L Creatinine Lvl (s): 0.54 03/14 07:43 WBC: 17.2 H Hgb: 8.5 L Hct: 27.6 L Platelet: 419 Neutrophil %: 81.2 H Glucose Level: 100 Sodium Level: 136 Potassium Level: 3.8 BUN: 6.0 L Creatinine Lvl (s): 0.51 Assessment/Plan Orders: .Auto Differential, Next AM Draw (one day only), Blood, Once, Stop date 03/15/24 7:45:00 EDT, [id number] .Morphology, Next AM Draw (one day only), Blood, Once, Stop date 03/15/24 8:06:00 EDT, [id number] .Neutro Absolute, Next AM Draw (one day only), Blood, Once, Stop date 03/15/24 7:45:00 EDT, [id number] Manual Differential, Next AM Draw (one day only), Blood, Once, Stop date 03/15/24 8:06:00 EDT, [id number] 43-year-old female who was admitted to hospital with complaints of abdominal pain. CT findings showing a large abscess secondary to diverticulitis. She is postprocedure day #2 following IR drain placement.. She remains afebrile and hemodynamically stable. WBC 11.0, Hgb 8.7, BMP unremarkable. Voiding without difficulties. Upon examination this morning, the patient states that she is feeling good. Was able to rest well throughout the night. Abdomen remains soft, nondistended, bowel sounds are present. IR drain remains intact with serosanguineous output noted. Has not spiked any temps over the last 24 hours. Patient is continuing on IV antibiotics per ID. WBCs continue to downtrend. Remained stable from a general surgery standpoint. No new orders at this time. Case discussed with Dr. Méndez, please see addendum to follow. Digitally Signed by MANOLO STERLING on 03/15/2024 10:01 AM [id number] Note Date of Service 03/14/24 Chief Complaint Acute diverticulitis with concern for microperforation and large abscess formation Subjective 43-year-old female with past medical history of DVT and obesity. Patient presented to [facility] for complaints of abdominal pain with loose bowel movements over the past several days. CT of abdomenpelvis performed at [facility] showed evidence of a diverticulitis with possible small perforationand abscess formation. Patient also noted to have elevated troponins peaking at 230. EKG read sinusrhythm without ischemia. Patient transferred to [facility] on 03/09/2024 for further evaluation. Lab work at [facility] showed leukocytosis of 13, hemoglobin was 7, potassium 3.4. Lactic acid was 1.5. Troponin was 80. COVID/flu/RSV negative. C. difficile PCR was negative. Urine culture showed no growth. Patient was started on broad-spectrum antibiotic of Zosyn. General surgery recommended conservative treatment for diverticulitis, her diet was advanced. Cardiology was consulted for elevated troponin, felt this was a type II HI in setting of infection, recommended echocardiogram and o utpatient stress test. Hospital stay complicated with streptococcal bacteremia and persistent fevers. Doppler of bilateral lower extremity completed showed no evidence of DVT. Echocardiogram completed showed an EF of 60-65% with no wall motion abnormalities, normal diastolic function. No gross vegetation was seen. Repeat CT of abdomen pelvis pending for today. CT of abdomen pelvis completed 03/12/2024 showed large abscess within the rectouterine pouch secondary to diverticulitis which is causingobstructive uropathy of the right ureter and mid right sided hydronephrosis. Hypodense right liver lobe lesion measures 1.8 x 1.4 cm concerning for intrahepatic abscess. Patient underwent CT-guided pelvic drainage catheter placement in IR on 03/13/2024. Intraoperative cultures are pending. Noted to have worsening leukocytosis, Zyvox and micafungin was added. Patient seen today, mother was present bedside. Patient states yesterday she did have bodyaches andchills. She denied complaints of pain today. No abdominal pain, rectal pain, nausea or vomiting. She is eating and drinking without issues. No chest pain or shortness of breath. Objective Vitals and Measurements T: 36.8 C (Oral) TMIN: 36.8 C (Oral) TMAX: 38.3 C (Oral) HR: 80 RR: 18 BP: 124/77 SpO2: 95% Intake and Output 7AM Yesterday to 7AM Today Intake and Output (Last 24 hours) Intake Oral Intake 960.00 Output Surgical Drain, Tube Output: 70.00 Stool Count 2.00 Urine Count 8.00 Total Summary Total Intake 960.00 Total Output 70.00 Fluid Balance 890.00 Physical Exam General: No acute distress. Alert and Appropriate Skin: No rash. Warm, Dry HEENT: Head is normocephalic and atraumatic. No lesions. Pupils equal in size. Extraocular movements within normal limits. Nose: No septal deviation. Mouth: Oropharynx mucosa is without lesion. Neck: Supple. No lymphadenopathy, thyromegaly noted. Lungs: Bilaterally clear/diminished breath sounds with no crepitation or wheeze. Unlabored on room air Cardiovascular: Heart is regular rhythm, S1S2, No extra-audible heart tones Abdomen: Abdomen is soft, nontender. Obese. Bowel sounds positive all four quadrants. Extremities: No clubbing, cyanosis. Peripheral and distal pulses palpable. No calf tenderness. Adequate peripheral circulation. Neurological: The patient is awake, oriented to time, people and place. Following simple commands, moving all extremities. Weight Dosing Weight: 113 kg (03/09/24) Medications Medications (11) Active Scheduled: (5) enoxaparin 40 mg/ 0.4mL syringe 40 mg 0.4 mL, Subcutaneous, qDay linezolid 600 mg 300 mL, IV Piggyback, BID micafungin 100 mg, IV Piggyback, qDay omeprazole [address] capsule 40 mg 1 cap(s), Oral, qDay piperacillin-tazobactam PMX 4.5 gram(s) 100 mL, IV Piggyback, q8h Continuous: (0) PRN: (6) acetaminophen 325 mg Tablet 650 mg 2 tab(s), Oral, q4h acetaminophen 325 mg Tablet 650 mg 2 tab(s), Oral, q4h albuterol - ipratropium 2.5 mg-0.5 mg/3 mL Inhal Cristina UD 3 mL, Inhalation, q4hRT dextrose 50% Solution Disp syringe 50 mL 12.5 gram(s) 25 mL, IV Push, AsDirected HYDROmorphone 0.5 mg/0.5 mL PF syringe 0.25 mg 0.25 mL, IV Push, q3h ondansetron 2 mg/ 1 mL 2 mL INJ 4 mg 2 mL, IV Push, q4h Lab Results 03/14 07:43 WBC: 17.2 H Hgb: 8.5 L Hct: 27.6 L Platelet: 419 Neutrophil %: 81.2 H Glucose Level: 100 Sodium Level: 136 Potassium Level: 3.8 BUN: 6.0 L Creatinine Lvl (s): 0.51 03/13 08:59 WBC: 11.5 H Hgb: 8.0 L Hct: 25.5 L Platelet: 426 Glucose Level: 97 Sodium Level: 140 Potassium Level: 3.7 BUN: <5.0 L Creatinine Lvl (s): 0.47 L Imaging Results and Diagnostics IR Aspiration/Drainage Result Date: March 13, 2024 Verified By: IRMA SHAH DO CLINICAL STATEMENT: IMPRESSION: Successful CT guided placement of 10 Jordanian pelvic abscess drainage catheterplacement. 115 mL frankly purulent fluid removed. Specimen sent forlaboratory evaluation. Complete evacuation of abscess cavity achieved.Agustin-Mott drainage bulb applied. No complication suggested. CT Abd/Pelvis w/ IV Contrast Only Result Date: March 12, 2024 Verified By: ADELINE SHEPPARD MD CLINICAL STATEMENT: IMPRESSION: Large abscess within the rectouterine pouch secondary to diverticulitis whichis causingobstructive uropathy of the right ureter and mild right-sidedhydronephrosis. Hypodense right liver lobe lesion measures 1.8 by 1.4 cm. This is concerningfor an intrahepatic abscess. Attention on follow-up. If chronicallypersistent consider MRI of the liver to exclude an underlying neoplasm. I have personally reviewed the images of this examination and agree with theresident's findings and interpretation. EKG No qualifying data available. Assessment/Plan Acute diverticulitis with concern for microperforation and large abscess formation Concern for intrahepatic abscess Right ureter obstructive uropathy with mild hydronephrosis Streptococcal bacteremia Leukocytosis Hypokalemia Anemia Elevated troponin in setting of infection, likely Type II HI Hx of DVT Obesity Plan General Surgery following, no acute surgical intervention is planned Patient underwent CT-guided pelvic drainage catheter placement in IR on 03/13/2024, intraoperative cultures are pending Found to have worsening leukocytosis, Zyvox and micafungin added by infectious disease team. Right-sided obstructive uropathy and intrahepatic abscess likely secondary to large diverticular abscess Urology following, felt once abscess is fully drained, hydronephrosis will resolve, patient will follow-up with urology outpatient Expect resolution of intrahepatic abscess once diverticular abscess fully drained, will hold off onMRI of liver Appreciate ID assistance, continue Zosym Zyvox and Micafungin Repeat blood cultures show no growth, echocardiogram showed no evidence of vegetation Doppler of bilateral lower extremity showed no evidence of DVT or SVT Electrolytes are stable Hemoglobin 8.9, no active bleeding. Iron studies reviewed showing an iron saturation of 3%. Status post 3 days of Ferrlecit. Planning for outpatient colonoscopy once infection is resolved. Cardiology followed for elevated troponins, felt this was likely type II HI in setting of infection. Cardiology recommending outpatient stress test. Level of Care Indication Regular Floor DVT Prophylaxis Enoxaparin SQ Maintenance IVF Indication NA / No maintenance IVF Indwelling Urinary Catheter Indication NA No indwelling catheter Anticipated Timeline of Discharge 72+ hours Anticipated DC Disposition Home without services Plan of care discussed with patient and mother bedside Case discussed with Dr. Phillips Digitally Signed by CLEMENT SHABAZZ on 03/14/2024 02:18 PM [id number] Note Date of Service 03/14/24 Chief Complaint Acute diverticulitis with concern for microperforation and large abscess formation Subjective 43-year-old female with past medical history of DVT and obesity. Patient presented to [facility] for complaints of abdominal pain with loose bowel movements over the past several days. CT of abdomenpelvis performed at [facility] showed evidence of a diverticulitis with possible small perforationand abscess formation. Patient also noted to have elevated troponins peaking at 230. EKG read sinusrhythm without ischemia. Patient transferred to [facility] on 03/09/2024 for further evaluation. Lab work at [facility] showed leukocytosis of 13, hemoglobin was 7, potassium 3.4. Lactic acid was 1.5. Troponin was 80. COVID/flu/RSV negative. C. difficile PCR was negative. Urine culture showed no growth. Patient was started on broad-spectrum antibiotic of Zosyn. General surgery recommended conservative treatment for diverticulitis, her diet was advanced. Cardiology was consulted for elevated troponin, felt this was a type II HI in setting of infection, recommended echocardiogram and o utpatient stress test. Hospital stay complicated with streptococcal bacteremia and persistent fevers. Doppler of bilateral lower extremity completed showed no evidence of DVT. Echocardiogram completed showed an EF of 60-65% with no wall motion abnormalities, normal diastolic function. No gross vegetation was seen. Repeat CT of abdomen pelvis pending for today. CT of abdomen pelvis completed 03/12/2024 showed large abscess within the rectouterine pouch secondary to diverticulitis which is causingobstructive uropathy of the right ureter and mid right sided hydronephrosis. Hypodense right liver lobe lesion measures 1.8 x 1.4 cm concerning for intrahepatic abscess. Patient underwent CT-guided pelvic drainage catheter placement in IR on 03/13/2024. Intraoperative cultures are pending. Noted to have worsening leukocytosis, Zyvox and micafungin was added. Patient seen today, mother was present bedside. Patient states yesterday she did have bodyaches andchills. She denied complaints of pain today. No abdominal pain, rectal pain, nausea or vomiting. She is eating and drinking without issues. No chest pain or shortness of breath. Objective Vitals and Measurements T: 36.8 C (Oral) TMIN: 36.8 C (Oral) TMAX: 38.3 C (Oral) HR: 80 RR: 18 BP: 124/77 SpO2: 95% Intake and Output 7AM Yesterday to 7AM Today Intake and Output (Last 24 hours) Intake Oral Intake 960.00 Output Surgical Drain, Tube Output: 70.00 Stool Count 2.00 Urine Count 8.00 Total Summary Total Intake 960.00 Total Output 70.00 Fluid Balance 890.00 Physical Exam General: No acute distress. Alert and Appropriate Skin: No rash. Warm, Dry HEENT: Head is normocephalic and atraumatic. No lesions. Pupils equal in size. Extraocular movements within normal limits. Nose: No septal deviation. Mouth: Oropharynx mucosa is without lesion. Neck: Supple. No lymphadenopathy, thyromegaly noted. Lungs: Bilaterally clear/diminished breath sounds with no crepitation or wheeze. Unlabored on room air Cardiovascular: Heart is regular rhythm, S1S2, No extra-audible heart tones Abdomen: Abdomen is soft, nontender. Obese. Bowel sounds positive all four quadrants. Extremities: No clubbing, cyanosis. Peripheral and distal pulses palpable. No calf tenderness. Adequate peripheral circulation. Neurological: The patient is awake, oriented to time, people and place. Following simple commands, moving all extremities. Weight Dosing Weight: 113 kg (03/09/24) Medications Medications (11) Active Scheduled: (5) enoxaparin 40 mg/ 0.4mL syringe 40 mg 0.4 mL, Subcutaneous, qDay linezolid 600 mg 300 mL, IV Piggyback, BID micafungin 100 mg, IV Piggyback, qDay omeprazole [address] capsule 40 mg 1 cap(s), Oral, qDay piperacillin-tazobactam PMX 4.5 gram(s) 100 mL, IV Piggyback, q8h Continuous: (0) PRN: (6) acetaminophen 325 mg Tablet 650 mg 2 tab(s), Oral, q4h acetaminophen 325 mg Tablet 650 mg 2 tab(s), Oral, q4h albuterol - ipratropium 2.5 mg-0.5 mg/3 mL Inhal Cristina UD 3 mL, Inhalation, q4hRT dextrose 50% Solution Disp syringe 50 mL 12.5 gram(s) 25 mL, IV Push, AsDirected HYDROmorphone 0.5 mg/0.5 mL PF syringe 0.25 mg 0.25 mL, IV Push, q3h ondansetron 2 mg/ 1 mL 2 mL INJ 4 mg 2 mL, IV Push, q4h Lab Results 03/14 07:43 WBC: 17.2 H Hgb: 8.5 L Hct: 27.6 L Platelet: 419 Neutrophil %: 81.2 H Glucose Level: 100 Sodium Level: 136 Potassium Level: 3.8 BUN: 6.0 L Creatinine Lvl (s): 0.51 03/13 08:59 WBC: 11.5 H Hgb: 8.0 L Hct: 25.5 L Platelet: 426 Glucose Level: 97 Sodium Level: 140 Potassium Level: 3.7 BUN: <5.0 L Creatinine Lvl (s): 0.47 L Imaging Results and Diagnostics IR Aspiration/Drainage Result Date: March 13, 2024 Verified By: IRMA SHAH DO CLINICAL STATEMENT: IMPRESSION: Successful CT guided placement of 10 Jordanian pelvic abscess drainage catheterplacement. 115 mL frankly purulent fluid removed. Specimen sent forlaboratory evaluation. Complete evacuation of abscess cavity achieved.Agustin-Mott drainage bulb applied. No complication suggested. CT Abd/Pelvis w/ IV Contrast Only Result Date: March 12, 2024 Verified By: ADELINE SHEPPARD MD CLINICAL STATEMENT: IMPRESSION: Large abscess within the rectouterine pouch secondary to diverticulitis whichis causingobstructive uropathy of the right ureter and mild right-sidedhydronephrosis. Hypodense right liver lobe lesion measures 1.8 by 1.4 cm. This is concerningfor an intrahepatic abscess. Attention on follow-up. If chronicallypersistent consider MRI of the liver to exclude an underlying neoplasm. I have personally reviewed the images of this examination and agree with theresident's findings and interpretation. EKG No qualifying data available. Assessment/Plan Acute diverticulitis with concern for microperforation and large abscess formation Concern for intrahepatic abscess Right ureter obstructive uropathy with mild hydronephrosis Streptococcal bacteremia Leukocytosis Hypokalemia Anemia Elevated troponin in setting of infection, likely Type II HI Hx of DVT Obesity Plan General Surgery following, no acute surgical intervention is planned Patient underwent CT-guided pelvic drainage catheter placement in IR on 03/13/2024, intraoperative cultures are pending Found to have worsening leukocytosis, Zyvox and micafungin added by infectious disease team. Right-sided obstructive uropathy and intrahepatic abscess likely secondary to large diverticular abscess Urology following, felt once abscess is fully drained, hydronephrosis will resolve, patient will follow-up with urology outpatient Expect resolution of intrahepatic abscess once diverticular abscess fully drained, will hold off onMRI of liver Appreciate ID assistance, continue Zosym Zyvox and Micafungin Repeat blood cultures show no growth, echocardiogram showed no evidence of vegetation Doppler of bilateral lower extremity showed no evidence of DVT or SVT Electrolytes are stable Hemoglobin 8.9, no active bleeding. Iron studies reviewed showing an iron saturation of 3%. Status post 3 days of Ferrlecit. Planning for outpatient colonoscopy once infection is resolved. Cardiology followed for elevated troponins, felt this was likely type II HI in setting of infection. Cardiology recommending outpatient stress test. Level of Care Indication Regular Floor DVT Prophylaxis Enoxaparin SQ Maintenance IVF Indication NA / No maintenance IVF Indwelling Urinary Catheter Indication NA No indwelling catheter Anticipated Timeline of Discharge 72+ hours Anticipated DC Disposition Home without services Plan of care discussed with patient and mother bedside Case discussed with Dr. Phillips Digitally Signed by CLEMENT SHABAZZ on 03/14/2024 02:18 PM [id number] [facility] Progress note Date of Service 03/14/2024 Chief Complaint Abdominal pain diverticulitis Subjective This is a split shared visit with myself and Dr. Méndez. Patient seen resting supine in bed. Has no complaints of abdominal pain at this time. Denies any complaints of nausea or vomiting. Objective Vitals and Measurements T: 36.8 C (Oral) TMIN: 36.8 C (Oral) TMAX: 38.3 C (Oral) HR: 80 RR: 18 BP: 124/77 SpO2: 95% Intake and Output 7AM Yesterday to 7AM Today Intake and Output (Last 24 hours) Intake Oral Intake 960.00 Output Surgical Drain, Tube Output: 70.00 Stool Count 2.00 Urine Count 8.00 Total Summary Total Intake 960.00 Total Output 70.00 Fluid Balance 890.00 Physical Exam General: Awake and alert and in no apparent distress. Able to answer questions and speak in full sentences. Supine in bed. HEENT: Mucous membranes moist and pink. Lungs: Chest rise symmetrical. Respirations unlabored. Clear to auscultation bilaterally. Abdomen: Soft and nontender. Nondistended. No guarding or rigidity. Bowel sounds 4 quadrants. IR drain noted with red serosanguineous output.. Extremities: Freely moving. Skin: Normal color for ethnicity. No pallor or diaphoresis. No jaundice. Psychiatric: Calm and cooperative. Weight Dosing Weight: 113 kg (03/09/24) Medications Medications (11) Active Scheduled: (5) enoxaparin 40 mg/ 0.4mL syringe 40 mg 0.4 mL, Subcutaneous, qDay linezolid 600 mg 300 mL, IV Piggyback, BID micafungin 100 mg, IV Piggyback, qDay omeprazole [address] capsule 40 mg 1 cap(s), Oral, qDay piperacillin-tazobactam PMX 4.5 gram(s) 100 mL, IV Piggyback, q8h Continuous: (0) PRN: (6) acetaminophen 325 mg Tablet 650 mg 2 tab(s), Oral, q4h acetaminophen 325 mg Tablet 650 mg 2 tab(s), Oral, q4h albuterol - ipratropium 2.5 mg-0.5 mg/3 mL Inhal Cristina UD 3 mL, Inhalation, q4hRT dextrose 50% Solution Disp syringe 50 mL 12.5 gram(s) 25 mL, IV Push, AsDirected HYDROmorphone 0.5 mg/0.5 mL PF syringe 0.25 mg 0.25 mL, IV Push, q3h ondansetron 2 mg/ 1 mL 2 mL INJ 4 mg 2 mL, IV Push, q4h Lab Results 03/14 07:43 WBC: 17.2 H Hgb: 8.5 L Hct: 27.6 L Platelet: 419 Neutrophil %: 81.2 H Glucose Level: 100 Sodium Level: 136 Potassium Level: 3.8 BUN: 6.0 L Creatinine Lvl (s): 0.51 03/13 08:59 WBC: 11.5 H Hgb: 8.0 L Hct: 25.5 L Platelet: 426 Glucose Level: 97 Sodium Level: 140 Potassium Level: 3.7 BUN: <5.0 L Creatinine Lvl (s): 0.47 L Assessment/Plan Orders: Basic Metabolic Panel(BMP), 03/15/24 5:00:00 EDT, Next AM Draw (one day only), Blood, Once, Stop date 03/15/24 5:00:00 EDT Complete Blood Count(CBC), 03/15/24 5:00:00 EDT, Next AM Draw (one day only), Blood, Once, Stop date 03/15/24 5:00:00 EDT This is a pleasant 43-year-old female who was admitted to hospital with complaints abdominal pain. CT findings showing large abscess secondary to diverticulitis. Patient is postprocedure day #1 following an IR drain placement. Vitals, labs, I's/O reviewed. Patient remains afebrile and hemodynamically stable, last temp was yesterday around 2 PM. WBC 17.2, Hgb 8.5 Voiding without difficulties. Upon examination this morning, the patient continues to have very little abdominal pain. States shedoes have some mild discomfort at the IR drainage site. IR drain with serosanguineous output noted. Patient did spike a temp last yesterday afternoon around 2 PM. Currently on IV antibiotics. ID is also following. Patient remained stable from general surgery standpoint. No new orders at this time. Will recheck a.m. labs. Case discussed with Dr. Méndez, please see addendum to follow with further assessment/plan. Digitally Signed by MANOLO STERLING on 03/14/2024 01:32 PM [id number] Progress note Date of Service 03/14/2024 Chief Complaint Abdominal pain diverticulitis Subjective This is a split shared visit with myself and Dr. Méndez. Patient seen resting supine in bed. Has no complaints of abdominal pain at this time. Denies any complaints of nausea or vomiting. Objective Vitals and Measurements T: 36.8 C (Oral) TMIN: 36.8 C (Oral) TMAX: 38.3 C (Oral) HR: 80 RR: 18 BP: 124/77 SpO2: 95% Intake and Output 7AM Yesterday to 7AM Today Intake and Output (Last 24 hours) Intake Oral Intake 960.00 Output Surgical Drain, Tube Output: 70.00 Stool Count 2.00 Urine Count 8.00 Total Summary Total Intake 960.00 Total Output 70.00 Fluid Balance 890.00 Physical Exam General: Awake and alert and in no apparent distress. Able to answer questions and speak in full sentences. Supine in bed. HEENT: Mucous membranes moist and pink. Lungs: Chest rise symmetrical. Respirations unlabored. Clear to auscultation bilaterally. Abdomen: Soft and nontender. Nondistended. No guarding or rigidity. Bowel sounds 4 quadrants. IR drain noted with red serosanguineous output.. Extremities: Freely moving. Skin: Normal color for ethnicity. No pallor or diaphoresis. No jaundice. Psychiatric: Calm and cooperative. Weight Dosing Weight: 113 kg (03/09/24) Medications Medications (11) Active Scheduled: (5) enoxaparin 40 mg/ 0.4mL syringe 40 mg 0.4 mL, Subcutaneous, qDay linezolid 600 mg 300 mL, IV Piggyback, BID micafungin 100 mg, IV Piggyback, qDay omeprazole [address] capsule 40 mg 1 cap(s), Oral, qDay piperacillin-tazobactam PMX 4.5 gram(s) 100 mL, IV Piggyback, q8h Continuous: (0) PRN: (6) acetaminophen 325 mg Tablet 650 mg 2 tab(s), Oral, q4h acetaminophen 325 mg Tablet 650 mg 2 tab(s), Oral, q4h albuterol - ipratropium 2.5 mg-0.5 mg/3 mL Inhal Cristina UD 3 mL, Inhalation, q4hRT dextrose 50% Solution Disp syringe 50 mL 12.5 gram(s) 25 mL, IV Push, AsDirected HYDROmorphone 0.5 mg/0.5 mL PF syringe 0.25 mg 0.25 mL, IV Push, q3h ondansetron 2 mg/ 1 mL 2 mL INJ 4 mg 2 mL, IV Push, q4h Lab Results 03/14 07:43 WBC: 17.2 H Hgb: 8.5 L Hct: 27.6 L Platelet: 419 Neutrophil %: 81.2 H Glucose Level: 100 Sodium Level: 136 Potassium Level: 3.8 BUN: 6.0 L Creatinine Lvl (s): 0.51 03/13 08:59 WBC: 11.5 H Hgb: 8.0 L Hct: 25.5 L Platelet: 426 Glucose Level: 97 Sodium Level: 140 Potassium Level: 3.7 BUN: <5.0 L Creatinine Lvl (s): 0.47 L Assessment/Plan Orders: Basic Metabolic Panel(BMP), 03/15/24 5:00:00 EDT, Next AM Draw (one day only), Blood, Once, Stop date 03/15/24 5:00:00 EDT Complete Blood Count(CBC), 03/15/24 5:00:00 EDT, Next AM Draw (one day only), Blood, Once, Stop date 03/15/24 5:00:00 EDT This is a pleasant 43-year-old female who was admitted to hospital with complaints abdominal pain. CT findings showing large abscess secondary to diverticulitis. Patient is postprocedure day #1 following an IR drain placement. Vitals, labs, I's/O reviewed. Patient remains afebrile and hemodynamically stable, last temp was yesterday around 2 PM. WBC 17.2, Hgb 8.5 Voiding without difficulties. Upon examination this morning, the patient continues to have very little abdominal pain. States shedoes have some mild discomfort at the IR drainage site. IR drain with serosanguineous output noted. Patient did spike a temp last yesterday afternoon around 2 PM. Currently on IV antibiotics. ID is also following. Patient remained stable from general surgery standpoint. No new orders at this time. Will recheck a.m. labs. Case discussed with Dr. Méndez, please see addendum to follow with further assessment/plan. Digitally Signed by MANOLO STERLING on 03/14/2024 01:32 PM [id number] Infectious disease Progress note Subjective Patient seen and examined labs and notes reviewed Patient was noted have a fever this morning with a temp of 38.3. White count increased to 17,000 compared to 11,000 Objective Vitals and Measurements T: 36.8 C (Oral) TMIN: 36.8 C (Oral) TMAX: 38.3 C (Oral) HR: 80 RR: 18 BP: 124/77 SpO2: 95% Intake and Output 7AM Yesterday to 7AM Today Intake and Output (Last 24 hours) Intake Oral Intake 720.00 Output Surgical Drain, Tube Output: 70.00 Stool Count 2.00 Urine Count 8.00 Total Summary Total Intake 720.00 Total Output 70.00 Fluid Balance 650.00 Physical Exam Fevers and chills are improving Abdomen soft with less tenderness Lungs are clear Heart is in regular rhythm Abdominal drains in place No acute deficits Weight Dosing Weight: 113 kg (03/09/24) Medications Medications (11) Active Scheduled: (5) enoxaparin 40 mg/ 0.4mL syringe 40 mg 0.4 mL, Subcutaneous, qDay linezolid 600 mg 300 mL, IV Piggyback, BID micafungin 100 mg, IV Piggyback, qDay omeprazole [address] capsule 40 mg 1 cap(s), Oral, qDay piperacillin-tazobactam PMX 4.5 gram(s) 100 mL, IV Piggyback, q8h Continuous: (0) PRN: (6) acetaminophen 325 mg Tablet 650 mg 2 tab(s), Oral, q4h acetaminophen 325 mg Tablet 650 mg 2 tab(s), Oral, q4h albuterol - ipratropium 2.5 mg-0.5 mg/3 mL Inhal Cristina UD 3 mL, Inhalation, q4hRT dextrose 50% Solution Disp syringe 50 mL 12.5 gram(s) 25 mL, IV Push, AsDirected HYDROmorphone 0.5 mg/0.5 mL PF syringe 0.25 mg 0.25 mL, IV Push, q3h ondansetron 2 mg/ 1 mL 2 mL INJ 4 mg 2 mL, IV Push, q4h Lab Results 03/14 07:43 WBC: 17.2 H Hgb: 8.5 L Hct: 27.6 L Platelet: 419 Neutrophil %: 81.2 H Glucose Level: 100 Sodium Level: 136 Potassium Level: 3.8 BUN: 6.0 L Creatinine Lvl (s): 0.51 03/13 08:59 WBC: 11.5 H Hgb: 8.0 L Hct: 25.5 L Platelet: 426 Glucose Level: 97 Sodium Level: 140 Potassium Level: 3.7 BUN: <5.0 L Creatinine Lvl (s): 0.47 L EKG No qualifying data available. Assessment/Plan large abscess within the rectouterine pouch Right hydronephrosis Streptococcal bacteremia diverticulitis with concern of microperforation and abscess formation Leukocytosis Fever Concern for UTI Hypodense right liver lobe lesion concerning for an intrahepatic abscess This is a 43-year-old female with no significant past medical history that presents with chief complaint of abdominal pain. The patient asked complaints that she had sharp sudden onset lower quadrantabdominal pain, has had loose bowel movements for the last several days. Proceeded to the hospital for further evaluation. In , CTAP performed revealed evidence of diverticulitis with possible small perforation, abscess formation. General surgery consulted and recommended their service to be consulted in the morning. Patient was initiated on IV Zosyn upon arrival to . Additionally, cardiology consulted given troponin elevation, up to 230. EKG did not demonstrate ACS, recommendation made to be initiated on heparin drip. CBC with hemoglobin of 9.4, CMP with potassium of 3.1. ID was consulted for bacteremia. C. difficile PCR is negative initial blood cultures x 2 sets on 03/08 positive for Streptococcus anguinous. Repeat blood cultures show no growth to date echocardiogram with no reportable vegetations Urine culture shows no growth CT scan of the abdomen pelvis revealed a large abscess within the rectouterine pouch secondary to diverticulitis which is causing obstructive uropathy of the right ureter and mild right hydronephrosis. Hypodense right liver lobe lesion measures 1.8 by 1.4 cm. This is concerning for an intrahepatic abscess Urology was consulted in regards to right hydronephrosis. No plans for ureteral stent placement. Plan is a follow-up with renal ultrasound in outpatient setting Patient underwent IR pelvic drainage catheter placement with 115 cc of marian purulent fluid removed. Cultures were sent General surgery is recommending follow-up outpatient Continue Zosyn, in light of worsening white count, we will add zyvox and mycamine given the symptoms of chills and worsening leukocytosis, general surgery to continue to follow closely while in houseas well Will follow clinical course and microdata and adjust treatment with antimicrobial therapy, patient will need to follow with general surgery closely as an outpatient for serial imaging studies as wellas IR Will follow based on the above I was present for Carmen Lewis LPN , and personally directed, all components of the patient's complete evaluation and management documented by the scribe today. I have personally examined the patient and reviewed all diagnostic data. I have reviewed all of this documentation by the scribe. It documents the history obtained, examination performed, diagnostic testing results compiled by him/her,and discharge information. Digitally Signed by Carmen Lewis on 03/14/2024 10:26 AM Digitally Signed by SANTOS CH BA, MD on 03/14/2024 02:09 PM [id number] Note Date of Service 03/13/24 Chief Complaint Acute diverticulitis with concern for microperforation and large abscess formation Concern for intrahepatic abscess 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 Patient presented to [facility] for complaints of abdominal pain with loose bowel movements over the past several days. CT of abdomenpelvis performed at [facility] showed evidence of a diverticulitis with possible small perforationand abscess formation. Patient also noted to have elevated troponins peaking at 230. EKG read sinusrhythm without ischemia. Patient transferred to [facility] on 03/09/2024 for further evaluation. Lab work at [facility] showed leukocytosis of 13, hemoglobin was 7, potassium 3.4. Lactic acid was 1.5. Troponin was 80. COVID/flu/RSV negative. C. difficile PCR was negative. Urine culture showed no growth. Patient was started on broad-spectrum antibiotic of Zosyn. General surgery recommended conservative treatment for diverticulitis, her diet was advanced. Cardiology was consulted for elevated troponin, felt this was a type II HI in setting of infection, recommended echocardiogram and o utpatient stress test. Hospital stay complicated with streptococcal bacteremia and persistent fevers. Doppler of bilateral lower extremity completed showed no evidence of DVT. Echocardiogram completed showed an EF of 60-65% with no wall motion abnormalities, normal diastolic function. No gross vegetation was seen. Repeat CT of abdomen pelvis pending for today. CT of abdomen pelvis completed 03/12/2024 showed large abscess within the rectouterine pouch secondary to diverticulitis which is causingobstructive uropathy of the right ureter and mid right sided hydronephrosis. Hypodense right liver lobe lesion measures 1.8 x 1.4 cm concerning for intrahepatic abscess. Patient underwent CT-guided pelvic drainage catheter placement in IR on 03/13/2024. Intraoperative cultures are pending. Patient seen today after her procedure. She does complain of pain at the drain site. She denied abdominal pain, nausea or vomiting. No chest pain or shortness of breath. Objective Vitals and Measurements T: 37.0 C (Oral) TMIN: 36.7 C (Oral) TMAX: 37.0 C (Oral) HR: 84 (Monitored) RR: 16 BP: 141/72 SpO2:97% Intake and Output 7AM Yesterday to 7AM Today Intake and Output (Last 24 hours) Intake Oral Intake 540.00 Output Stool Count 0.00 Urine Count 3.00 Emesis Count 0.00 Total Summary Total Intake 540.00 Total Output 0.00 Fluid Balance 540.00 Physical Exam General: No acute distress. Alert and Appropriate Skin: No rash. Warm, Dry HEENT: Head is normocephalic and atraumatic. No lesions. Pupils equal in size. Extraocular movements within normal limits. Nose: No septal deviation. Mouth: Oropharynx mucosa is without lesion. Neck: Supple. No lymphadenopathy, thyromegaly noted. Lungs: Bilaterally clear/diminished breath sounds with no crepitation or wheeze. Unlabored on room air Cardiovascular: Heart is regular rhythm, S1S2, No extra-audible heart tones Abdomen: Abdomen is soft, nontender. Obese. Bowel sounds positive all four quadrants. Extremities: No clubbing, cyanosis. Peripheral and distal pulses palpable. No calf tenderness. Adequate peripheral circulation. Neurological: The patient is awake, oriented to time, people and place. Following simple commands, moving all extremities. Weight Dosing Weight: 113 kg (03/09/24) Medications Medications (9) Active Scheduled: (3) enoxaparin 40 mg/ 0.4mL syringe 40 mg 0.4 mL, Subcutaneous, qDay omeprazole [address] capsule 40 mg 1 cap(s), Oral, qDay piperacillin-tazobactam PMX 4.5 gram(s) 100 mL, IV Piggyback, q8hr Continuous: (0) PRN: (6) acetaminophen 325 mg Tablet 650 mg 2 tab(s), Oral, q4h acetaminophen 325 mg Tablet 650 mg 2 tab(s), Oral, q4h albuterol - ipratropium 2.5 mg-0.5 mg/3 mL Inhal Cristina UD 3 mL, Inhalation, q4hRT dextrose 50% Solution Disp syringe 50 mL 12.5 gram(s) 25 mL, IV Push, AsDirected HYDROmorphone 0.5 mg/0.5 mL PF syringe 0.25 mg 0.25 mL, IV Push, q3h ondansetron 2 mg/ 1 mL 2 mL INJ 4 mg 2 mL, IV Push, q4h Lab Results 03/13 08:59 WBC: 11.5 H Hgb: 8.0 L Hct: 25.5 L Platelet: 426 Glucose Level: 97 Sodium Level: 140 Potassium Level: 3.7 BUN: <5.0 L Creatinine Lvl (s): 0.47 L 03/12 08:36 WBC: 11.7 H Hgb: 8.0 L Hct: 25.0 L Platelet: 396 Glucose Level: 98 Sodium Level: 138 Potassium Level: 3.4 L BUN: <5.0 L Creatinine Lvl (s): 0.45 L Imaging Results and Diagnostics CT Abd/Pelvis w/ IV Contrast Only Result Date: March 12, 2024 Verified By: ADELINE SHEPPARD MD CLINICAL STATEMENT: IMPRESSION: Large abscess within the rectouterine pouch secondary to diverticulitis whichis causingobstructive uropathy of the right ureter and mild right-sidedhydronephrosis. Hypodense right liver lobe lesion measures 1.8 by 1.4 cm. This is concerningfor an intrahepatic abscess. Attention on follow-up. If chronicallypersistent consider MRI of the liver to exclude an underlying neoplasm. I have personally reviewed the images of this examination and agree with theresident's findings and interpretation. EKG No qualifying data available. Assessment/Plan Acute diverticulitis with concern for microperforation and large abscess formation Concern for intrahepatic abscess Right ureter obstructive uropathy with mild hydronephrosis Streptococcal bacteremia Leukocytosis Hypokalemia Anemia Elevated troponin in setting of infection, likely Type II HI Hx of DVT Obesity Plan General Surgery following, no acute surgical intervention is planned Patient underwent CT-guided pelvic drainage catheter placement in IR on 03/13/2024, intraoperative cultures are pending Right-sided obstructive uropathy and intrahepatic abscess likely secondary to large diverticular abscess Urology following, felt once abscess is fully drained, hydronephrosis will resolve, patient will follow-up with urology outpatient Expect resolution of intrahepatic abscess once diverticular abscess fully drained, will hold off onMRI of liver Infectious disease following, patient remains on Zosyn Repeat blood cultures show no growth, echocardiogram showed no evidence of vegetation Doppler of bilateral lower extremity showed no evidence of DVT or SVT Electrolytes are stable Hemoglobin 8 no active bleeding. Iron studies reviewed showing an iron saturation of 3%. Status post 3 days of Ferrlecit. Planning for outpatient colonoscopy once infection is resolved. Cardiology followed for elevated troponins, felt this was likely type II HI in setting of infection. Cardiology recommending outpatient stress test. Level of Care Indication Regular Floor DVT Prophylaxis Enoxaparin SQ Maintenance IVF Indication NA / No maintenance IVF Indwelling Urinary Catheter Indication NA No indwelling catheter Anticipated Timeline of Discharge 72+ hours Anticipated DC Disposition Home without services Plan of care discussed with patient and family bedside Case discussed with Dr. Phillips Digitally Signed by CLEMENT SHABAZZ on 03/13/2024 01:46 PM [id number] Infectious disease Progress note Date of Service 03/13/2024 Objective Vitals and Measurements T: 37.0 C (Oral) TMIN: 36.7 C (Oral) TMAX: 37.0 C (Oral) HR: 75 RR: 16 BP: 115/76 SpO2: 96% Physical Exam Chart reviewed, patient examined. Patient appears alert and oriented x3, resting in bed watching TVwith SO present at bedside. No c/o NV, again reports improving diarrhea. Patient with 0 documented BMs in the last 24 hours. Reports decreased appetite yesterday that appears improved at this time, however she is NPO for procedure. Denies SOB, reports occasional nonproductive cough. Reports resolved chills and sweats. Reports mild RLQ/groin tenderness at this time. Reports mild dysuria and noticing small clear/blood tinged mucus with wiping after urintating this morning. Reports chronic right hip discomfort appears worsened from baseline due to hospital bed. Reports bilateral lower back pain.No other new complaints this AM, patient is pending IR Drainage today. Respirations easy and nonlabored, 96% on RA. Patient has remained afebrile for the last 24 hours. Labs: SARS COVID negative Flu A/B negative RSV negative CDIFF PCR negative RPR nonreactive Hepatitis A/B/C nonreactive HIV 1/2 nonreactive BC ID PCR- Streptococcus detected 03/08/2024 FOCUSED ASSESSMENT: CVS: Regular S1S2 LUNGS: Clear bilaterally, denies SOB, occasional nonproductive cough, on RA ABDOMEN: Rounded, soft, minimal RLQ/groin tenderness, + bowel sounds, passing gas, improving diarrhea, decreased appetite yesterday but denies nausea, 0 documented BMs in the last 24 hours SKIN: No rashes noted, pale in overall coloring INCISIONS/DRESSINGS: None EXTREMITIES: Chronic right hip pain-worsened from baseline, +1-2 generalized edema LINES/TUBES/DRAINS: RAC IV dressing dry & intact, no drainage or erythema at site-Coban Wrap. CURRENT ANTIBIOTICS: Zosyn 4.5g IV Q8h 03/09 - present CULTURE RESULTS/[place]IA [place] ROSAR[place]: 03/08 Blood Cultures -P 07/02 Bottle: Streptococcus anginosus 07/02 Bottle: Gram Positive Cocci in chains and in clusters 03/09 Blood Cultures 2 no growth to date -P 03/09 Urine Culture -F No growth at 48 hours 03/10 Blood Cultures 08/02 no growth to date -P Weight Dosing Weight: 113 kg (03/09/24) Medications Medications (9) Active Scheduled: (3) enoxaparin 40 mg/ 0.4mL syringe 40 mg 0.4 mL, Subcutaneous, qDay omeprazole [address] capsule 40 mg 1 cap(s), Oral, qDay piperacillin-tazobactam PMX 4.5 gram(s) 100 mL, IV Piggyback, q8hr Continuous: (0) PRN: (6) acetaminophen 325 mg Tablet 650 mg 2 tab(s), Oral, q4h acetaminophen 325 mg Tablet 650 mg 2 tab(s), Oral, q4h albuterol - ipratropium 2.5 mg-0.5 mg/3 mL Inhal Cristina UD 3 mL, Inhalation, q4hRT dextrose 50% Solution Disp syringe 50 mL 12.5 gram(s) 25 mL, IV Push, AsDirected HYDROmorphone 0.5 mg/0.5 mL PF syringe 0.25 mg 0.25 mL, IV Push, q3h ondansetron 2 mg/ 1 mL 2 mL INJ 4 mg 2 mL, IV Push, q4h Lab Results 03/12 08:36 WBC: 11.7 H Hgb: 8.0 L Hct: 25.0 L Platelet: 396 Glucose Level: 98 Sodium Level: 138 Potassium Level: 3.4 L BUN: <5.0 L Creatinine Lvl (s): 0.45 L Imaging Results and Diagnostics CT Abd/Pelvis w/ IV Contrast Only Result Date: March 12, 2024 Verified By: ADELINE SHEPPARD MD CLINICAL STATEMENT: IMPRESSION: Large abscess within the rectouterine pouch secondary to diverticulitis whichis causingobstructive uropathy of the right ureter and mild right-sidedhydronephrosis. Hypodense right liver lobe lesion measures 1.8 by 1.4 cm. This is concerningfor an intrahepatic abscess. Attention on follow-up. If chronicallypersistent consider MRI of the liver to exclude an underlying neoplasm. I have personally reviewed the images of this examination and agree with theresident's findings and interpretation. 03/11 Venous Doppler BLE Summary: 1. Negative for deep vein thrombosis involving the right lower extremity. 2. Negative for superficial vein thrombosis involving the right lower extremity. 3. Negative for deep vein thrombosis involving the left lower extremity. 4. Negative for superficial vein thrombosis involving the left lower extremity. 03/12/2024 TTE Summary: 1. Left ventricle: The cavity size is normal. Wall thickness is normal. Strain Value is Normal Systolic function is normal. The estimated ejection fraction is 60-65%. Wall motion is normal; there are no regional wall motionabnormalities. Normal diastolic function. The triplane global longitudinal strain is -20.29%. 2. Aortic valve: Not well visualized. The valve is trileaflet. The leaflets are mildly thickened and mildly calcified. 3. Mitral valve: The annulus is mildly calcified. The leaflets are mildly thickened and mildly calcified. 4. Right atrium: The estimated right atrial pressure is 3 mm Hg. Recommendations: No gross vegetation, if suspicious for endocarditis is high suggest ELIZABETH 03/13/2024 IR Aspiration/Drainage Pending completion and results Problem List Streptococcal bacteremia diverticulitis with concern of microperforation and abscess formation Leukocytosis Fever Concern for UTI Digitally Signed by Margot Gonzalez RN on 03/13/2024 09:39 AM [id number] Note ORIGINAL PROCEDURE: CT GUIDED 10 Jordanian pelvic abscess drainage catheter placement MODERATE CONSCIOUS SEDATION 03/13/2024 HISTORY: ORDERING SYSTEM PROVIDED HISTORY: Reason for Exam: Large diverticular abscess 115ml aspirated/ 5ml sent to lab. 1% lidocaine-15ml. sedation time: 26 minutes. needles; [id number], dialtors; 7,9. amplatz [id number]. [id number]. lyla bulb, connecting tube. 2.0silk. SEDATION: Moderate intravenous sedation utilized for procedure which was administered by monitored by interventional radiology nurse. See intervention radiology nursing notes for further discussion. TECHNIQUE: Local sterile field for procedure.. Informed consent was obtained after a detailed explanation of the procedure including risks, benefits, and alternatives. [place] protocol was followed. A suitable skin site was prepped and draped in sterile fashion following CT localization. A 18 gauge needlewas advanced into the pelvic fluid collection via posterior right paramedian approach. Guidewires advanced over which track was dilated and a 10 Jordanian external drainage catheter was placed. 115 mL frankly purulent fluid removed. Abscess cavity irrigated/aspirated with sterile normal saline in 10 mL aliquots. Specimen sent for culture. Catheter affixed to the patient's skin. Dressing and Agustin-Mott drainage bulb applied. Postprocedure images applied. Patient tolerated procedure well.. No complication suggested. FINDINGS: Pre and intraprocedural images are compared to 03/12/2024 again demonstrate pelvic fluid collection. Access needle, guide wire and external drainage catheter confirmed in satisfactory position. A total of -150 mL of purulent fluid was removed. Complete evacuation of abscess cavity achieved. Specimen sent for culture and sensitivity. No complication suggested. IMPRESSION: Successful CT guided placement of 10 Jordanian pelvic abscess drainage catheter placement. 115 mL frankly purulent fluid removed. Specimen sent for laboratory evaluation. Complete evacuation of abscess cavity achieved. Agustin-Mott drainage bulb applied. No complication suggested. Interpreted by: Irma Shah DO Preliminary Report By: Irma Shah DO Electronically signed By Irma Shah DO Dictated Date: 03/13/2024 4:23:02 PM Prelim Date: 03/13/2024 4:26:52 PM Sign Date: 03/13/2024 4:26:52 PM Ordering Provider: [facility]09-13-2024 Procedure note Date of Service INTERVENTIONAL RADIOLOGY POST PROCEDURE NOTE Pre-Procedure Diagnosis: [pelvic fluid collection ] Post Procedure Diagnosis: Same. Acid Plant Helper: Dr. Irma Shah DO Procedure: [ ct guided placement 10 fr pelvic drainage catheter via right posterior paramedian approach] Anesthesia: [1% lidocaine without epinephrine] Findings: [115 cc frankly purulent fluid removed. abscess irrigated/aspirated with 100 cc sterile nacl in 10ml aliquots. catheter fixed to skin. dressing and LYLA bulb applied. no complication suggested. pt tolerated procedure well ] Estimated Blood Loss: Minimal (Less Than 10 mL). [ ] Specimen: Fluid sample for cultures. Complications: None. Full report with procedural details to follow and will become available under the Radiology tab of Results Review. Please contact for any questions or concerns. _ Digitally Signed by IRMA SHAH DO on 03/13/2024 10:34 AM [id number] IR Procedure Record Summary Primary Physician: IRMA SHAH DO Finalized Date/Time: 03/13/24 10:31:45 Pt. Name: CLARISSE PEGUERO /Sex: 1980 Female Med Rec #: [id number] Physician: BONIFACIO BAILEY DO Financial #: [id number] Pt. Type: I Room/Bed: [facility] Admit/Disch: 03/09/24 03:36:00 - Institution: Allergies identified in patient's electronic medical record at time of printing on 03/13/24 Entry 1 Substance NKA Reaction Type Allergy Last Modified By: Gisselle Hector RN 03/09/24 04:11:39 Case Attendance- IR Entry 1 Entry 2 Entry 3 Case Attendee IRMA SHAH Substitute Crossing GuardMELA Morales Role Performed Primary Surgeon Scrub Technologist Procedure Nurse Details Time In 03/13/24 09:21:00 03/13/24 09:21:00 03/13/24 09:21:00 Time Out 03/13/24 10:32:00 03/13/24 10:32:00 03/13/24 10:32:00 Procedure/Preference IR Aspiration/Drainage IR Aspiration/Drainage IR Aspiration/Drainage Card SN SN SN Last Modified By: Santa Garcia RN, Erin N RN Metzger, Erin N RN 03/13/24 10:26:07 03/13/24 10:26:07 03/13/24 10:26:07 Entry 4 Case Attendee Santa Garcia RN Role Performed Procedure Nurse Details Time In 03/13/24 09:21:00 Time Out 03/13/24 10:32:00 Procedure/Preference IR Aspiration/Drainage Card SN Last Modified By: Santa Garcia RN 03/13/24 10:26:07 Radiology Procedures- IR Entry 1 Procedure/Preference IR Aspiration/Drainage Actual Procedure IR ASPIRATION/DRAINAGE Card SN Primary Procedure Yes Primary Surgeon IRMA SHAH DO Anesthesia/Sedation Local Type Additional Procedure Times Start 03/13/24 09:45:00 Stop 03/13/24 10:26:00 Specialty Service SN Radiology Procedure EBL 0 mL Last Modified By: Santa Garcia RN 03/13/24 10:26:09 Radiology Procedure Details - IR Entry 1 Radiology Sedation Case Times Sedation Start Time 03/13/24 10:00:00 Sedation Stop Time 03/13/24 10:26:00 Sedation Total Time 26 mins Radiology - Fluid/Drainage Fluid Amount mL: 115 mL Fluid Description pus Radiology Contrast Contrast Used? Yes Dose 80 mL Medication ISOVUE 300 50ML 10/CA 1315-30 Radiology Flouroscopy Fluoroscopy Used? No Fluoro Time 0 Radiology Local Local Used? Yes Local Type: lido 1% Local Dose 15 mL Radiology Procedure Site Site/Location lower back Site Condition No complications Dressing Type Transparent Technologist Notes 2.0 silk sutures Last Modified By: Santa Garcia RN 03/13/24 10:27:18 Cultures and Specimens- IR Entry 1 Kind Culture Type Abscess Source pelvic abscess Comments 5 mL Last Modified By: Santa Garcia RN 03/13/24 10:15:01 General Case Data - IR Entry 1 Case Information Room AH IR CT Case Level IR Level 2 Wound Class None Specialty SN Radiology Procedure ASA Class None Diagnosis Preop Diagnosis sepsis Postop Same As Preop Yes Postop Diagnosis sepsis Last Modified By: Santa Garcia RN 03/13/24 09:43:34 Medication Administration- IR Entry 1 Entry 2 Medication Versed Fentanyl Time Administered 03/13/24 10:00:00 03/13/24 10:00:00 Route of Admin IV Push IV Push Dose 1 mg 50 mcg Volume VORB * *Verbal Order Read Back (VORB) is required for NON- PHYSICIAN administration of medications. Administered by No No Physician? Administered by: Santa Garcia RN, Erin N RN Verbal Order Read IRMA SHAH MICHAEL S DO Back from: Last Modified By: Santa Garcia RN, Erin N RN 03/13/24 10:01:03 03/13/24 10:01:03 Procedure Case Times- IR Entry 1 Patient In Procedure Patient In OR 03/13/24 09:21:00 Patient Out of OR 03/13/24 10:27:00 Procedure Start/Stop Procedure Start Time 03/13/24 09:45:00 Procedure Stop Time 03/13/24 10:26:00 Last Modified By: Santa Garcia RN 03/13/24 10:31:39 Allergy Information- IR Entry 1 Allergies Reviewed? Yes Allergies Reviewed Patient With Last Modified By: Santa Garcia RN 03/13/24 09:41:33 Radiology Protocols/Time Out- IR Entry 1 Preprocedure Clinician Verifies Correct patient ID When Clinically Confirmation of correct using name & date Indicated side(s) and site(s), or MRN, Accurate Correct diagnostic and procedure, complete radiology tests Informed Consent, H & P available, Required update immediately blood products, prior to procedure, if implants, devices applicable and/or special equipment available OR/Procedure Room/Bedside Time 03/13/24 09:45:00 Clinician Verifies Correct patient identity including EMR & records using name and date or medical record number, Accurate procedure consent form, Correct patient position, Necessary equipment is available, Anticipated non-routine events with surgical team (case duration, estimated blood loss, patient specific concerns)., Amaya patient factors for recovery and management identified with surgical team. When Applicable Confirmation correct Team Members IRMA SHAH DO, side and site marked, Present for Time Out Abraham Yoon Relevant images and A, MELA Meier, results are properly Santa Garcia RN labeled and appropriately displayed, Alcohol based prep dry, Double verification of sterility indicators complete Instrument Sterility Team Members IRMA SHAH DO, Verifying Sterility Abraham Yoon Procedure IR Aspiration/Drainage SN Last Modified By: Santa Garcia RN 03/13/24 09:45:17 Skin Prep- IR Entry 1 Procedure IR Aspiration/Drainage SN Skin Prep Prep Area Back Side Lower By IRMA SHAH DO Prep Agents Chloraprep Hair Removal Method N/A Last Modified By: Santa Garcia RN 03/13/24 09:43:02 Patient Positioning- IR Entry 1 Procedure IR Aspiration/Drainage Body Position OP Prone SN Feet Uncrossed? Yes Pressure Points Yes Checked Last Modified By: Santa Garcia RN 03/13/24 09:43:09 Radiology Procedure Plan - IR Entry 1 Radiology - Nursing Care Plan Outcome Statement The patient Outcome Statement The patient receives demonstrates knowledge Cont. appropriate of the expected medication(s), safely responses to the administered during the operative/invasive perioperative/invasive procedure., The period., The patient is patient's value system, free from signs and lifestyle, ethnicity, symptoms of injury and culture are caused by extraneous considered, respected, objects (equipment, and incorporated in the instrumentation, perioperative plan of sponges, or sharps). care., The patient is free from signs and symptoms of infection., The patient is free from signs and symptoms of injury related to positioning. Radiology - Action Plan Outcomes Met? 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 Santa Garcia RN Completing Procedure Plan Last Modified By: Santa Garcia RN 03/13/24 09:43:23 Case Comments Finalized By: Santa Garcia RN Document Signatures Signed By: Santa Garcia RN 03/13/24 10:27 Santa Garcia RN 03/13/24 10:31 [id number] Infectious disease Progress note Date of Service 03/13/2024 Objective Vitals and Measurements T: 37.0 C (Oral) TMIN: 36.7 C (Oral) TMAX: 37.0 C (Oral) HR: 75 RR: 16 BP: 115/76 SpO2: 96% Physical Exam Chart reviewed, patient examined. Patient appears alert and oriented x3, resting in bed watching TVwith SO present at bedside. No c/o NV, again reports improving diarrhea. Patient with 0 documented BMs in the last 24 hours. Reports decreased appetite yesterday that appears improved at this time, however she is NPO for procedure. Denies SOB, reports occasional nonproductive cough. Reports resolved chills and sweats. Reports mild RLQ/groin tenderness at this time. Reports mild dysuria and noticing small clear/blood tinged mucus with wiping after urintating this morning. Reports chronic right hip discomfort appears worsened from baseline due to hospital bed. Reports bilateral lower back pain.No other new complaints this AM, patient is pending IR Drainage today. Respirations easy and nonlabored, 96% on RA. Patient has remained afebrile for the last 24 hours. Labs: SARS COVID negative Flu A/B negative RSV negative CDIFF PCR negative RPR nonreactive Hepatitis A/B/C nonreactive HIV 1/2 nonreactive BC ID PCR- Streptococcus detected 03/08/2024 FOCUSED ASSESSMENT: CVS: Regular S1S2 LUNGS: Clear bilaterally, denies SOB, occasional nonproductive cough, on RA ABDOMEN: Rounded, soft, minimal RLQ/groin tenderness, + bowel sounds, passing gas, improving diarrhea, decreased appetite yesterday but denies nausea, 0 documented BMs in the last 24 hours SKIN: No rashes noted, pale in overall coloring INCISIONS/DRESSINGS: None EXTREMITIES: Chronic right hip pain-worsened from baseline, +1-2 generalized edema LINES/TUBES/DRAINS: RAC IV dressing dry & intact, no drainage or erythema at site-Coban Wrap. CURRENT ANTIBIOTICS: Zosyn 4.5g IV Q8h 03/09 - present CULTURE RESULTS/MARIA DEL ROSARIO: 03/08 Blood Cultures -P 1/ Bottle: Streptococcus anginosus 07/02 Bottle: Gram Positive Cocci in chains and in clusters 03/09 Blood Cultures 2/2 no growth to date -P 03/09 Urine Culture -F No growth at 48 hours 03/10 Blood Cultures 2/2 no growth to date -P Weight Dosing Weight: 113 kg (03/09/24) Medications Medications (9) Active Scheduled: (3) enoxaparin 40 mg/ 0.4mL syringe 40 mg 0.4 mL, Subcutaneous, qDay omeprazole [address] capsule 40 mg 1 cap(s), Oral, qDay piperacillin-tazobactam PMX 4.5 gram(s) 100 mL, IV Piggyback, q8hr Continuous: (0) PRN: (6) acetaminophen 325 mg Tablet 650 mg 2 tab(s), Oral, q4h acetaminophen 325 mg Tablet 650 mg 2 tab(s), Oral, q4h albuterol - ipratropium 2.5 mg-0.5 mg/3 mL Inhal Cristina UD 3 mL, Inhalation, q4hRT dextrose 50% Solution Disp syringe 50 mL 12.5 gram(s) 25 mL, IV Push, AsDirected HYDROmorphone 0.5 mg/0.5 mL PF syringe 0.25 mg 0.25 mL, IV Push, q3h ondansetron 2 mg/ 1 mL 2 mL INJ 4 mg 2 mL, IV Push, q4h Lab Results 03/12 08:36 WBC: 11.7 H Hgb: 8.0 L Hct: 25.0 L Platelet: 396 Glucose Level: 98 Sodium Level: 138 Potassium Level: 3.4 L BUN: <5.0 L Creatinine Lvl (s): 0.45 L Imaging Results and Diagnostics CT Abd/Pelvis w/ IV Contrast Only Result Date: March 12, 2024 Verified By: ADELINE SHEPPARD MD CLINICAL STATEMENT: IMPRESSION: Large abscess within the rectouterine pouch secondary to diverticulitis whichis causingobstructive uropathy of the right ureter and mild right-sidedhydronephrosis. Hypodense right liver lobe lesion measures 1.8 by 1.4 cm. This is concerningfor an intrahepatic abscess. Attention on follow-up. If chronicallypersistent consider MRI of the liver to exclude an underlying neoplasm. I have personally reviewed the images of this examination and agree with theresident's findings and interpretation. 03/11 Venous Doppler BLE Summary: 1. Negative for deep vein thrombosis involving the right lower extremity. 2. Negative for superficial vein thrombosis involving the right lower extremity. 3. Negative for deep vein thrombosis involving the left lower extremity. 4. Negative for superficial vein thrombosis involving the left lower extremity. 03/12/2024 TTE Summary: 1. Left ventricle: The cavity size is normal. Wall thickness is normal. Strain Value is Normal Systolic function is normal. The estimated ejection fraction is 60-65%. Wall motion is normal; there are no regional wall motionabnormalities. Normal diastolic function. The triplane global longitudinal strain is -20.29%. 2. Aortic valve: Not well visualized. The valve is trileaflet. The leaflets are mildly thickened and mildly calcified. 3. Mitral valve: The annulus is mildly calcified. The leaflets are mildly thickened and mildly calcified. 4. Right atrium: The estimated right atrial pressure is 3 mm Hg. Recommendations: No gross vegetation, if suspicious for endocarditis is high suggest ELIZABETH 03/13/2024 IR Aspiration/Drainage Pending completion and results Problem List Streptococcal bacteremia diverticulitis with concern of microperforation and abscess formation Leukocytosis Fever Concern for UTI Digitally Signed by Margot Gonzalez RN on 03/13/2024 09:39 AM [id number] Urology Consult note Date of Service 03/13/2024 Reason for Consultation Hydronephrosis Referring Physician Alan History of Present Illness 43 yo female with acute diverticulitis, pelvic abscess. Patient being treated nonoperatively. Mild right hydronephrosis noted on f/u CT scan. Pelvic abscess has grown from prior imaging, now measures7.6 x 6.5 x 7.1 cm. This is exerting mass effect on the right ureter, causing mild hydro. Urology consulted. Patient reports no pain in the right CVA. Pain is localized to the lower back on the right. Renal function normal -- creatinine 0.45. NPO for drainage of abscess Review of Systems as per HPI Physical Exam Vitals and Measurements T: 37.0 C (Oral) TMIN: 36.7 C (Oral) TMAX: 37.0 C (Oral) HR: 75 RR: 16 BP: 115/76 SpO2: 96% Weight Dosing Weight: 113 kg (03/09/24) General Appearance: NAD Head: normocephalic EENT: normal Lungs: unlabored breathing Abdomen: NTTP, soft Musculoskeletal: normal Extremities: normal Neurological: nonfocal Skin: normal Psychiatric: normal affect Lab Results 03/12 08:36 WBC: 11.7 H Hgb: 8.0 L Hct: 25.0 L Platelet: 396 Glucose Level: 98 Sodium Level: 138 Potassium Level: 3.4 L BUN: <5.0 L Creatinine Lvl (s): 0.45 L Imaging Results and Diagnostics CT Abd/Pelvis w/ IV Contrast Only Result Date: March 12, 2024 Verified By: ADELINE SHEPPARD MD CLINICAL STATEMENT: IMPRESSION: Large abscess within the rectouterine pouch secondary to diverticulitis whichis causingobstructive uropathy of the right ureter and mild right-sidedhydronephrosis. Hypodense right liver lobe lesion measures 1.8 by 1.4 cm. This is concerningfor an intrahepatic abscess. Attention on follow-up. If chronicallypersistent consider MRI of the liver to exclude an underlying neoplasm. I have personally reviewed the images of this examination and agree with theresident's findings and interpretation. Assessment/Plan 43-year-old female with diverticulitis and pelvic abscess causing compression of right ureter and mild right hydronephrosis. Hydronephrosis seems to be mild and patient is asymptomatic with excellent renal function. This should resolve with drainage of the pelvic abscess. I will arrange a follow-up ultrasound for the patient in the outpatient setting. Will sign off, please call with questions -- Hunter Tapia MD Urologic Surgery Procedure/Surgical History No qualifying data available. Medications Inpatient Dextrose 50% IV Push, 12.5 gram(s)= 25 mL, IV Push, AsDirected, PRN Dilaudid, 0.25 mg= 0.25 mL, IV Push, q3h, PRN DuoNeb, 3 mL, Inhalation, q4hRT, PRN Lovenox, 40 mg= 0.4 mL, Subcutaneous, qDay omeprazole, 40 mg= 1 cap(s), Oral, qDay Tylenol, 650 mg= 2 tab(s), Oral, q4h, PRN Tylenol, 650 mg= 2 tab(s), Oral, q4h, PRN Zofran, 4 mg= 2 mL, IV Push, q4h, PRN Zosyn, 4.5 gram(s)= 100 mL, IV Piggyback, q8hr Home PriLOSEC OTC, 40 mg, Oral, qDay Allergies NKA Immunizations No qualifying data available. Digitally Signed by HUNTER TAPIA MD on 03/13/2024 10:01 AM [id number] Note* Exam Date Time Procedure Performing Provider Status 03/12/24 3:40 PM Echocardiogram, Adult - CV Auth (Verified) [facility] 09-12-2024 Note ORIGINAL EXAMINATION: CT OF THE ABDOMEN AND PELVIS WITH CONTRAST03/12/2024 9:00 am TECHNIQUE: CT of the abdomen and pelvis was performed with the administration of intravenous contrast. Multiplanar reformatted images are provided for review. Automated exposure control, iterative reconstruction, and/or weight based adjustment of the mA/kV was utilized to reduce the radiation dose to as low as reasonably achievable. COMPARISON: None Available HISTORY: ORDERING SYSTEM PROVIDED HISTORY: Reason for Exam: sepsis, eval diverticulitis with abcess, bacteremia, fatigue, diverticulitis with abscess, bacteremia FINDINGS: Chronic degenerative changes of the spine. The visualized lung bases and mediastinum are unremarkable. The visualized esophagus, stomach, and duodenum are unremarkable. Right liver lobe indistinctly marginated hypodense lesion measures 1.8 by 1.4 cm (2, 30). Otherwise the liver is unremarkable. Unremarkable gallbladder. The spleen, pancreas, and adrenal glands are unremarkable. There is mild right-sided hydronephrosis and ureteral dilatation. Question mild delayed right nephrogram secondary to the hydronephrosis. No left-sided hydronephrosis. The urinary bladder and adnexa are displaced anteriorly due to mass effect. There is a large complex fluid collection measuring 7.6 x 6.5 x 7.1 cm with punctate foci of gas in the rectouterine pouch with surrounding fat stranding. This large fluid collection is exerting mass effect upon the uterus, urinary bladder, and right ureter. Diverticuli most prominently of the sigmoid colon. Normal appendix. Reactive lymph nodes of the posterior pelvis. No free intraperitoneal air. Fat containing umbilical hernia. No additional contributory findings. IMPRESSION: Large abscess within the rectouterine pouch secondary to diverticulitis which is causing obstructive uropathy of the right ureter and mild right-sided hydronephrosis. Hypodense right liver lobe lesion measures 1.8 by 1.4 cm. This is concerning for an intrahepatic abscess. Attention on follow-up. If chronically persistent consider MRI of the liver to exclude an underlying neoplasm. I have personally reviewed the images of this examination and agree with the resident's findings and interpretation. Interpreted by: Adeline Sheppard MD Preliminary Report By: Jose Alberto Alberts Electronically signed By Adeline Sheppard MD Dictated Date: 03/12/2024 10:18:48 AM Prelim Date: 03/12/2024 1:45:34 PM Sign Date: 03/12/2024 1:45:34 PM Ordering Provider: [facility]09-11-2024 Infectious disease Consult note Date of Service 03/11/2024 Reason for Consultation Diverticulitis Bacteremia Referring Physician Dr Phillips History of Present Illness This is a 43-year-old female with no significant past medical history that presents with chief complaint of abdominal pain. The patient asked complaints that she had sharp sudden onset lower quadrantabdominal pain, has had loose bowel movements for the last several days. Proceeded to the [facility] for further evaluation. In , CTAP performed revealed evidence of diverticulitis with possible small perforation, abscess formation. General surgery consulted and recommended their service to be consulted in the morning. Patient was initiated on IV Zosyn upon arrival to . Additionally, cardiology consulted given troponin elevation, up to 230. EKG did not demonstrate ACS, recommendation made to be initiated on heparin drip. CBC with hemoglobin of 9.4, CMP with potassium of 3.1. ID was consulted for bacteremia. Review of Systems Abdominal pain is improving Physical Exam Vitals and Measurements T: 37.2 C (Oral) TMIN: 36.9 C (Oral) TMAX: 38.1 C (Oral) HR: 82 RR: 16 BP: 116/68 SpO2: 96% Weight Dosing Weight: 113 kg (03/09/24) General Appearance: Awake, alert, and oriented HEENT: Normocephaly. PERRL Neck: Normal without lymphadenopathy Cardiac: Heart regular rhythm Lungs: Clear Abdomen: Soft, minimal bilateral lower quadrant tenderness Extremities:Warm without clubbing, cyanosis or edema. Neurological: No deficits Skin: Warm, dry, intact. No rashes Psychiatric: No abnormal behaviors Lab Results 03/11 06:45 WBC: 10.7 Hgb: 7.9 L Hct: 24.5 L Platelet: 334 Neutrophil %: 75.9 H Glucose Level: 99 Sodium Level: 137 Potassium Level: 3.1 L BUN: <5.0 L Creatinine Lvl (s): 0.49 L 03/10 17:52 Hgb: 8.1 L Hct: 26.0 L 03/10 06:39 WBC: 8.5 Hgb: 6.5 C Hct: 21.1 L Platelet: 289 Neutrophil %: 75.9 H Glucose Level: 95 Sodium Level: 136 Potassium Level: 3.0 L BUN: 8.0 Creatinine Lvl (s): 0.54 Assessment/Plan Streptococcal bacteremia diverticulitis with concern of microperforation and abscess formation Leukocytosis Fever Concern for UTI This is a 43-year-old female with no significant past medical history that presents with chief complaint of abdominal pain. The patient asked complaints that she had sharp sudden onset lower quadrantabdominal pain, has had loose bowel movements for the last several days. Proceeded to the [facility] for further evaluation. In , CTAP performed revealed evidence of diverticulitis with possible small perforation, abscess formation. General surgery consulted and recommended their service to be consulted in the morning. Patient was initiated on IV Zosyn upon arrival to . Additionally, cardiology consulted given troponin elevation, up to 230. EKG did not demonstrate ACS, recommendation made to be initiated on heparin drip. CBC with hemoglobin of 9.4, CMP with potassium of 3.1. ID was consulted for bacteremia. Over the past 24 hours, noted to have persistent fevers with a 24-hour Tmax of 39.2. No leukocytosis. C. difficile PCR is negative initial blood cultures x 2 sets on 03/08 positive for Streptococcus sanguinous. Repeat blood culturesshow no growth to date echocardiogram has been ordered to rule out vegetations. General Surgery on board with no plans for surgical invention at this time Urine culture shows no growth Currently being treated with IV Zosyn Discussed the plan of care with patient and her family and primary team, repeat CT scan scheduled for tomorrow Clinically the patient admits to improvement on current IV antibiotic therapy with improving abdominal pain and tenderness Thank you for this consultation, will follow clinical course and microdata and imaging studies I was present for Carmen Lewis LPN , and personally directed, all components of the patient's complete evaluation and management documented by the scribe today. I have personally examined the patient and reviewed all diagnostic data. I have reviewed all of this documentation by the scribe. It documents the history obtained, examination performed, diagnostic testing results compiled by him/her,and discharge information. Procedure/Surgical History No qualifying data available. Medications Inpatient Dextrose 50% IV Push, 12.5 gram(s)= 25 mL, IV Push, AsDirected, PRN Dilaudid, 0.25 mg= 0.25 mL, IV Push, q3h, PRN DuoNeb, 3 mL, Inhalation, q4hRT, PRN Ferrlecit Lovenox, 40 mg= 0.4 mL, Subcutaneous, qDay omeprazole, 40 mg= 1 cap(s), Oral, qDay potassium chloride, 40 mEq= 2 tab(s), Oral, qDayM Tylenol, 650 mg= 2 tab(s), Oral, q4h, PRN Tylenol, 650 mg= 2 tab(s), Oral, q4h, PRN Zofran, 4 mg= 2 mL, IV Push, q4h, PRN Zosyn, 3.375 gram(s)= 50 mL, IV Piggyback, q8hr Home PriLOSEC OTC, 40 mg, Oral, qDay Allergies NKA Immunizations No qualifying data available. Digitally Signed by Carmen Lewis Scribe on 03/11/2024 01:11 PM Digitally Signed by SANTOS CH BA, MD on 03/11/2024 05:39 PM [id number] Note* Exam Date Time Procedure Performing Provider Status 03/11/24 8:04 AM VL Venous US/Doppler Both Legs(for DVT) Auth (Verified) [facility] 09-10-2024 Cardiology Progress note Date of Service 03/10/34 Chief Complaint Elevated troponin Subjective No major overnight events. Pt states that she is feeling more fatigue today and some abdominal pain. Having some better appetite today and is keeping clear liquids down. No new cardiac concerns today. Objective Vitals and Measurements T: 37.6 C (Oral) TMIN: 36.8 C (Oral) TMAX: 39.4 C (Oral) HR: 88 (Monitored) RR: 18 BP: 121/66 SpO2:99% Intake and Output 7AM Yesterday to 7AM Today Intake and Output (Last 24 hours) Intake Administration Information 800.00 Oral Intake 540.00 Output Stool Count 5.00 Urine Count 7.00 Emesis Count 0.00 Total Summary Total Intake 1340.00 Total Output 0.00 Fluid Balance 1340.00 Physical Exam General Appearance: NAD, AOx3 Head: NCAT EENT: EOMI Neck: No obvious JVD Cardiac: RRR, no MGR Lungs: Clear to auscultation bilaterally Abdomen: Soft, obese, nontender Musculoskeletal: MAEE Extremities: No lower extremity edema Neurological: No focal deficit Skin: Warm and dry Weight Dosing Weight: 113 kg (03/09/24) Medications Medications (12) Active Scheduled: (4) enoxaparin 40 mg/ 0.4mL syringe 40 mg 0.4 mL, Subcutaneous, qDay omeprazole [address] capsule 40 mg 1 cap(s), Oral, qDay piperacillin-tazobactam PMX 3.375 gram(s) 50 mL, IV Piggyback, q8hr sodium ferric gluconate complex 250 mg 20 mL, IV Piggyback, qDay Continuous: (2) Lactated Ringers 1,000 mL 1,000 mL, Intravenous, 100 mL/hr NS (0.9% nacl) 500 mL 500 mL, Intravenous, 20 mL/hr PRN: (6) acetaminophen 325 mg Tablet 650 mg 2 tab(s), Oral, q4h acetaminophen 325 mg Tablet 650 mg 2 tab(s), Oral, q4h albuterol - ipratropium 2.5 mg-0.5 mg/3 mL Inhal Cristina UD 3 mL, Inhalation, q4hRT dextrose 50% Solution Disp syringe 50 mL 12.5 gram(s) 25 mL, IV Push, AsDirected HYDROmorphone 0.5 mg/0.5 mL PF syringe 0.25 mg 0.25 mL, IV Push, q3h ondansetron 2 mg/ 1 mL 2 mL INJ 4 mg 2 mL, IV Push, q4h Lab Results 03/10 06:39 WBC: 8.5 Hgb: 6.5 C Hct: 21.1 L Platelet: 289 Neutrophil %: 75.9 H Glucose Level: 95 Sodium Level: 136 Potassium Level: 3.0 L BUN: 8.0 Creatinine Lvl (s): 0.54 03/09 15:32 Creatinine Lvl (s): 0.63 Creatinine Lvl (s): 0.63 03/09 12:41 Hgb: 7.7 L Hct: 25.3 L 03/09 07:56 Creatinine Lvl (s): 0.57 03/09 06:58 WBC: 13.0 H Hgb: 7.0 L Hct: 23.0 L Platelet: 312 Neutrophil %: 84.6 H Protime: 19.9 H PT International Ratio: 1.7 Glucose Level: 97 Sodium Level: 139 Potassium Level: 3.4 L BUN: 9.0 Creatinine Lvl (s): 0.57 Creatinine Lvl (s): 0.55 EKG No qualifying data available. Assessment/Plan Elevated troponin, likely in the setting of sepsis 2/2 diverticulosis/abscess Microcytic anemia Hypokalemia Obesity Plan: No new cardiac concerns today. Suggest outpatient stress testing once acute illness is resolved. Not a good candidate for ischemic eval inpatient due to significant anemia and abdominal infection. [facility] should have outpatient echocardiogram in addition to stress testing. Cardiology will sign off today. Please call if any questions arise. Digitally Signed by NICHOLAS LEMA DO on 03/10/2024 05:33 PM [id number] Cardiology Progress note Date of Service 03/10/34 Chief Complaint Elevated troponin Subjective No major overnight events. Pt states that she is feeling more fatigue today and some abdominal pain. Having some better appetite today and is keeping clear liquids down. No new cardiac concerns today. Objective Vitals and Measurements T: 37.6 C (Oral) TMIN: 36.8 C (Oral) TMAX: 39.4 C (Oral) HR: 88 (Monitored) RR: 18 BP: 121/66 SpO2:99% Intake and Output 7AM Yesterday to 7AM Today Intake and Output (Last 24 hours) Intake Administration Information 800.00 Oral Intake 540.00 Output Stool Count 5.00 Urine Count 7.00 Emesis Count 0.00 Total Summary Total Intake 1340.00 Total Output 0.00 Fluid Balance 1340.00 Physical Exam General Appearance: NAD, AOx3 Head: NCAT EENT: EOMI Neck: No obvious JVD Cardiac: RRR, no MGR Lungs: Clear to auscultation bilaterally Abdomen: Soft, obese, nontender Musculoskeletal: MAEE Extremities: No lower extremity edema Neurological: No focal deficit Skin: Warm and dry Weight Dosing Weight: 113 kg (03/09/24) Medications Medications (12) Active Scheduled: (4) enoxaparin 40 mg/ 0.4mL syringe 40 mg 0.4 mL, Subcutaneous, qDay omeprazole [address] capsule 40 mg 1 cap(s), Oral, qDay piperacillin-tazobactam PMX 3.375 gram(s) 50 mL, IV Piggyback, q8hr sodium ferric gluconate complex 250 mg 20 mL, IV Piggyback, qDay Continuous: (2) Lactated Ringers 1,000 mL 1,000 mL, Intravenous, 100 mL/hr NS (0.9% nacl) 500 mL 500 mL, Intravenous, 20 mL/hr PRN: (6) acetaminophen 325 mg Tablet 650 mg 2 tab(s), Oral, q4h acetaminophen 325 mg Tablet 650 mg 2 tab(s), Oral, q4h albuterol - ipratropium 2.5 mg-0.5 mg/3 mL Inhal Cristina UD 3 mL, Inhalation, q4hRT dextrose 50% Solution Disp syringe 50 mL 12.5 gram(s) 25 mL, IV Push, AsDirected HYDROmorphone 0.5 mg/0.5 mL PF syringe 0.25 mg 0.25 mL, IV Push, q3h ondansetron 2 mg/ 1 mL 2 mL INJ 4 mg 2 mL, IV Push, q4h Lab Results 03/10 06:39 WBC: 8.5 Hgb: 6.5 C Hct: 21.1 L Platelet: 289 Neutrophil %: 75.9 H Glucose Level: 95 Sodium Level: 136 Potassium Level: 3.0 L BUN: 8.0 Creatinine Lvl (s): 0.54 03/09 15:32 Creatinine Lvl (s): 0.63 Creatinine Lvl (s): 0.63 03/09 12:41 Hgb: 7.7 L Hct: 25.3 L 03/09 07:56 Creatinine Lvl (s): 0.57 03/09 06:58 WBC: 13.0 H Hgb: 7.0 L Hct: 23.0 L Platelet: 312 Neutrophil %: 84.6 H Protime: 19.9 H PT International Ratio: 1.7 Glucose Level: 97 Sodium Level: 139 Potassium Level: 3.4 L BUN: 9.0 Creatinine Lvl (s): 0.57 Creatinine Lvl (s): 0.55 EKG No qualifying data available. Assessment/Plan Elevated troponin, likely in the setting of sepsis 2/2 diverticulosis/abscess Microcytic anemia Hypokalemia Obesity Plan: No new cardiac concerns today. Suggest outpatient stress testing once acute illness is resolved. Not a good candidate for ischemic eval inpatient due to significant anemia and abdominal infection. [facility] [facility] should have outpatient echocardiogram in addition to stress testing. Cardiology will sign off today. Please call if any questions arise. Digitally Signed by NICHOLAS LEMA DO on 03/10/2024 05:33 PM [id number] Cardiology Consult note Date of Service 03/09/24 Reason for Consultation Elevated troponin Referring Physician Hospitalist History of Present Illness 43-year-old female with no severe of him past medical history presented to the hospital as a transfer for evaluation of intractable nausea and vomiting. She states that over the last several days shehas been experiencing severe nausea and vomiting, and the day before admission developed severe fevers and chills. She has not experienced anything like this in the past. She initially presented to an outside hospital (), where lab work was drawn she was found to have an elevated troponin that peaked at 230, now down to 80. EKGs at the outside hospital demonstrated sinus rhythm without any concerning findings of ischemia. Imaging of her abdomen showed diverticulitis with a contained abscess. She was started on broad-spectrum antibiotics. She was transferred to this hospital for further evaluation and management. She has not reported any chest pain, pressure, or discomfort throughout the entire ordeal. She does not have a personal history of coronary disease, however she reports a positive family history and some uncles who have had MIs in their 50s. Other family members on her maternal side have had coronary artery bypass grafting. She is a non-smoker, and does not use any illicit drugs. She has been maintained on a heparin drip by the primary team for concern of NSTEMI. Cardiology was consulted for evaluation of possible NSTEMI. Review of Systems Negative unless noted in HPI. Physical Exam Vitals and Measurements T: 39.4 C (Oral) TMIN: 36.6 C (Oral) TMAX: 39.4 C (Oral) HR: 98 (Apical) RR: 20 BP: 101/56 SpO2: 96% HT: 160.0 cm WT: 113.0 kg BMI: 44.14 Weight Dosing Weight: 113 kg (03/09/24) General Appearance: NAD, AOx3 Head: NCAT EENT: EOMI Neck: No obvious JVD Cardiac: RRR, no MGR Lungs: Clear to auscultation bilaterally Abdomen: Soft, obese, nontender Musculoskeletal: MAEE Extremities: No lower extremity edema Neurological: No focal deficit Skin: Warm and dry Lab Results 03/09 12:41 Hgb: 7.7 L Hct: 25.3 L 03/09 07:56 Creatinine Lvl (s): 0.57 03/09 06:58 WBC: 13.0 H Hgb: 7.0 L Hct: 23.0 L Platelet: 312 Neutrophil %: 84.6 H Protime: 19.9 H PT International Ratio: 1.7 Glucose Level: 97 Sodium Level: 139 Potassium Level: 3.4 L BUN: 9.0 Creatinine Lvl (s): 0.57 Creatinine Lvl (s): 0.55 Assessment/Plan Elevated troponin, likely in the setting of sepsis 2/2 diverticulosis/abscess Microcytic anemia Hypokalemia Obesity Plan: Presentation, lab work, EKG is inconsistent with NSTEMI and elevated troponin is likely explained by acute, severe illness of diverticulitis and abscess. Recommend stopping heparin drip today. At some point as an outpatient, could consider NM stress testing given her significant family history of CAD and the presence of elevated troponin however she should recover from her acute illness first. We will follow-up on her tomorrow. Procedure/Surgical History No qualifying data available. Medications Inpatient Dextrose 50% IV Push, 12.5 gram(s)= 25 mL, IV Push, AsDirected, PRN Dilaudid, 0.25 mg= 0.25 mL, IV Push, q3h, PRN DuoNeb, 3 mL, Inhalation, q4hRT, PRN Heparin HBW CARDIAC Bolus 5000 units/mL, 4000 unit(s)= 0.8 mL, 60 unit(s)/kg, IV Push, q6h, PRN Lovenox, 40 mg= 0.4 mL, Subcutaneous, qDay LR 1,000 mL, 1000 mL, Intravenous omeprazole, 40 mg= 1 cap(s), Oral, qDay Tylenol, 650 mg= 2 tab(s), Oral, q4h, PRN Tylenol, 650 mg= 2 tab(s), Oral, q4h, PRN Zofran, 4 mg= 2 mL, IV Push, q4h, PRN Zosyn, 3.375 gram(s)= 50 mL, IV Piggyback, q8hr Home PriLOSEC OTC, 40 mg, Oral, qDay Allergies NKA Immunizations No qualifying data available. Digitally Signed by NICHOLAS LEMA DO on 03/09/2024 04:18 PM [id number] Cardiology Consult note Date of Service 03/09/24 Reason for Consultation Elevated troponin Referring Physician Hospitalist History of Present Illness 43-year-old female with no severe of him past medical history presented to the hospital as a transfer for evaluation of intractable nausea and vomiting. She states that over the last several days shehas been experiencing severe nausea and vomiting, and the day before admission developed severe fevers and chills. She has not experienced anything like this in the past. She initially presented to an outside hospital (), where lab work was drawn she was found to have an elevated troponin that peaked at 230, now down to 80. EKGs at the outside hospital demonstrated sinus rhythm without any concerning findings of ischemia. Imaging of her abdomen showed diverticulitis with a contained abscess. She was started on broad-spectrum antibiotics. She was transferred to this hospital for further evaluation and management. She has not reported any chest pain, pressure, or discomfort throughout the entire ordeal. She does not have a personal history of coronary disease, however she reports a positive family history and some uncles who have had MIs in their 50s. Other family members on her maternal side have had coronary artery bypass grafting. She is a non-smoker, and does not use any illicit drugs. She has been maintained on a heparin drip by the primary team for concern of NSTEMI. Cardiology was consulted for evaluation of possible NSTEMI. Review of Systems Negative unless noted in HPI. Physical Exam Vitals and Measurements T: 39.4 C (Oral) TMIN: 36.6 C (Oral) TMAX: 39.4 C (Oral) HR: 98 (Apical) RR: 20 BP: 101/56 SpO2: 96% HT: 160.0 cm WT: 113.0 kg BMI: 44.14 Weight Dosing Weight: 113 kg (03/09/24) General Appearance: NAD, AOx3 Head: NCAT EENT: EOMI Neck: No obvious JVD Cardiac: RRR, no MGR Lungs: Clear to auscultation bilaterally Abdomen: Soft, obese, nontender Musculoskeletal: MAEE Extremities: No lower extremity edema Neurological: No focal deficit Skin: Warm and dry Lab Results 03/09 12:41 Hgb: 7.7 L Hct: 25.3 L 03/09 07:56 Creatinine Lvl (s): 0.57 03/09 06:58 WBC: 13.0 H Hgb: 7.0 L Hct: 23.0 L Platelet: 312 Neutrophil %: 84.6 H Protime: 19.9 H PT International Ratio: 1.7 Glucose Level: 97 Sodium Level: 139 Potassium Level: 3.4 L BUN: 9.0 Creatinine Lvl (s): 0.57 Creatinine Lvl (s): 0.55 Assessment/Plan Elevated troponin, likely in the setting of sepsis 2/2 diverticulosis/abscess Microcytic anemia Hypokalemia Obesity Plan: Presentation, lab work, EKG is inconsistent with NSTEMI and elevated troponin is likely explained by acute, severe illness of diverticulitis and abscess. Recommend stopping heparin drip today. At some point as an outpatient, could consider NM stress testing given her significant family history of CAD and the presence of elevated troponin however she should recover from her acute illness first. We will follow-up on her tomorrow. Procedure/Surgical History No qualifying data available. Medications Inpatient Dextrose 50% IV Push, 12.5 gram(s)= 25 mL, IV Push, AsDirected, PRN Dilaudid, 0.25 mg= 0.25 mL, IV Push, q3h, PRN DuoNeb, 3 mL, Inhalation, q4hRT, PRN Heparin HBW CARDIAC Bolus 5000 units/mL, 4000 unit(s)= 0.8 mL, 60 unit(s)/kg, IV Push, q6h, PRN Lovenox, 40 mg= 0.4 mL, Subcutaneous, qDay LR 1,000 mL, 1000 mL, Intravenous omeprazole, 40 mg= 1 cap(s), Oral, qDay Tylenol, 650 mg= 2 tab(s), Oral, q4h, PRN Tylenol, 650 mg= 2 tab(s), Oral, q4h, PRN Zofran, 4 mg= 2 mL, IV Push, q4h, PRN Zosyn, 3.375 gram(s)= 50 mL, IV Piggyback, q8hr Home PriLOSEC OTC, 40 mg, Oral, qDay Allergies NKA Immunizations No qualifying data available. Digitally Signed by NICHOLAS LEMA DO on 03/09/2024 04:18 PM [facility] [id number] Evaluation + Plan noteExtracted from: Title:History and Physical Author:BONIFACIO BAILEY Date:03/09/24 Abdominal pain Diverticulitis with micro perforation and abscess formation Anemia UTI Hypokalemia Elevated troponin Patient was admitted to stepdown for management of multiple medical issues including abdominal pain in the setting of diverticulitis with possible microperforation, abscess formation base of his CTAP. Additional component of abdominal pain could be related to patient's foul-smelling urine over the last few days, concern for UTI, evidence of increased leukocytes on UA. Additionally patient with elevated troponin, concern for possible NSTEMI. Patient made n.p.o. status, 100 cc an hour lactated Ringer's maintenance intravenous fluid ordered. Surgery service consulted, appreciate surgical recommendations. IV Zosyn ordered for diverticulitis and for UTI. Heparin drip initiated given possible NSTEMI, cardiology consulted, appreciate recommendations. CBC and BMP ordered daily and replete electrolytes as necessary. Patient was given 40 mEq potassium given hypokalemia on labs. Trend troponin. IV Dilaudid for pain control. IV Zofran for nausea control. Continue patient's home chronic medications pending pharmacy verification. The labs, the imaging, the EKG were reviewed in this case. The case was discussed with the ED physician and LYLA. Future Appointments Appointment Date:03/27/2024 10:00:00 AM Scheduled Provider:ARLENE RODRIGEZ MD Location:Gen Surg [place] Appointment Type:[facility] Follow Up Appointment Date:04/16/2024 10:20:00 AM Scheduled Provider:ROSA LOVE Location:UROLOGY Appointment Type:URO OV Future Scheduled Tests Radiology* IR Drainage Cath Injection for Eval 03/23/24 * CT Abd/Pelvis w/ IV Contrast Only 03/23/24 * US Renal 04/13/24 [facility] 09-09-2024 Surgery Consult note Date of Service 03/09/2024 Reason for Consultation Diverticulitis Referring Physician Marco A Bailey History of Present Illness This is a split shared visit between myself and Dr. Rodrigez This patient is a 43-year-old female with a past medical history significant for GERD who [facility] after she presented there with complaints of nausea, vomiting, and fevers that began on , 03/05/2024. CT scan imaging was obtained showing concern for diverticulitis with microperforation and possible abscess. Her troponin levels were notedto be elevated prompting transfer to [facility]. She was admitted to the stepdown unit under the medical service with consultation placed to general surgery and cardiology. On examination this morning she was seen resting supine in bed. She did not appear toxic or in any acute distress. She denied complaints of abdominal pain stating that her primary concerns were nausea and vomiting. She has never been diagnosed with diverticulitis prior to this admission and she hasnever had a colonoscopy. Her abdomen was obese/rounded, soft, and nontender. She has been passing flatus and moved her bowels yesterday. Morning laboratory data, vital signs and I/O have been reviewed. Her white blood cell count was noted to be 13.0. Hemoglobin 7.0. Troponin level 80. She is currently on a heparin by weight drip. Review of Systems All other pertinent positives and negatives are present in the HPI. All other systems are reviewed as negative unless otherwise previously mentioned. Physical Exam Vitals and Measurements T: 37 C (Oral) TMIN: 36.6 C (Oral) TMAX: 37 C (Oral) HR: 86 (Apical) RR: 18 BP: 95/54 SpO2: 99% HT:160.0 cm WT: 113.0 kg BMI: 44.14 Weight Dosing Weight: 113 kg (03/09/24) General: Awake, alert and oriented x4. In no apparent distress. Able to answer questions appropriately and speak in full sentences. Supine in bed. HEENT: Sclera anicteric. Heart: S1 and S2 present. Lungs: Chest rise symmetrical. Respirations unlabored. Abdomen: Soft obese/rounded and nontender. Nondistended. No rigidity or guarding noted. Bowel sounds present. Extremities: Freely moving. Psychiatric: Calm and cooperative. Lab Results 03/09 07:56 Creatinine Lvl (s): 0.57 03/09 06:58 WBC: 13.0 H Hgb: 7.0 L Hct: 23.0 L Platelet: 312 Neutrophil %: 84.6 H Protime: 19.9 H PT International Ratio: 1.7 Glucose Level: 97 Sodium Level: 139 Potassium Level: 3.4 L BUN: 9.0 Creatinine Lvl (s): 0.57 Creatinine Lvl (s): 0.55 Imaging Results and Diagnostics Imaging completed at outside facility Assessment/Plan This patient is a 43-year-old female admitted to the stepdown unit of [facility] secondary toconcern for diverticulitis, elevated troponin, and concern for UTI. Her initial workup was completed at [facility]; CT scan imaging of the abdomen and pelvis showed concern for diverticulitis with microperforation and possible abscess. General surgery is following secondary to these findings. On examination, she was seen resting supine in bed. She did not appear toxic or in any acute distress. She denied abdominal pain and current nausea/vomiting. Her abdomen was obese/rounded, soft and nontender. She has been passing flatus and moved her bowels yesterday. Laboratory studies reviewed. Leukocytosis noted on this morning's labs. Hemoglobin decreased at 7.0. She is currently receiving IV Zosyn. She is on a heparin by weight drip secondary to her elevated troponin levels. Plan: Diverticulitis Patient denied previous episodes of diverticulitis. At this time, we will plan to treat the patientconservatively with IV antibiotics. From the general surgery standpoint, she may be started on a clear liquid diet if okay with cardiology/the primary medical team. Continue to monitor abdominal exams/GI function As needed pain medication/antiemetics Further medical management per the primary medical team/consultants. The case will be discussed with Dr. Rodrigez. Please see his addendum for further details. Problem List/Past Medical History GERD Procedure/Surgical History No qualifying data available. Medications Inpatient Dextrose 50% IV Push, 12.5 gram(s)= 25 mL, IV Push, AsDirected, PRN Dilaudid, 0.25 mg= 0.25 mL, IV Push, q3h, PRN DuoNeb, 3 mL, Inhalation, q4hRT, PRN Heparin for IV 25,000 unit(s) [8.85 unit(s)/kg/hr] + Dextrose 5% Premix Diluent 250 mL Heparin HBW CARDIAC Bolus 5000 units/mL, 4000 unit(s)= 0.8 mL, 60 unit(s)/kg, IV Push, q6h, PRN LR 1,000 mL, 1000 mL, Intravenous omeprazole, 40 mg= 1 cap(s), Oral, qDay Tylenol, 650 mg= 2 tab(s), Oral, q4h, PRN Zofran, 4 mg= 2 mL, IV Push, q4h, PRN Zosyn, 3.375 gram(s)= 50 mL, IV Piggyback, q8hr Home PriLOSEC OTC, 40 mg, Oral, qDay Allergies NKA Social History Patient resides at home with her family Family History Patient reports a family history of diverticulitis; stated that her dad and his siblings have had diverticulitis in the past Immunizations No qualifying data available. Digitally Signed by COLIN EDWARDS on 03/09/2024 09:30 AM [id number] Surgery Consult note Date of Service 03/09/2024 Reason for Consultation Diverticulitis Referring Physician Marco A Bailey History of Present Illness This is a split shared visit between myself and Dr. Rodrigez This patient is a 43-year-old female with a past medical history significant for GERD who [facility] after she presented there with complaints of nausea, vomiting, and fevers that began on , 03/05/2024. CT scan imaging was obtained showing concern for diverticulitis with microperforation and possible abscess. Her troponin levels were notedto be elevated prompting transfer to [facility]. She was admitted to the stepdown unit under the medical service with consultation placed to general surgery and cardiology. On examination this morning she was seen resting supine in bed. She did not appear toxic or in any acute distress. She denied complaints of abdominal pain stating that her primary concerns were nausea and vomiting. She has never been diagnosed with diverticulitis prior to this admission and she hasnever had a colonoscopy. Her abdomen was obese/rounded, soft, and nontender. She has been passing flatus and moved her bowels yesterday. Morning laboratory data, vital signs and I/O have been reviewed. Her white blood cell count was noted to be 13.0. Hemoglobin 7.0. Troponin level 80. She is currently on a heparin by weight drip. Review of Systems All other pertinent positives and negatives are present in the HPI. All other systems are reviewed as negative unless otherwise previously mentioned. Physical Exam Vitals and Measurements T: 37 C (Oral) TMIN: 36.6 C (Oral) TMAX: 37 C (Oral) HR: 86 (Apical) RR: 18 BP: 95/54 SpO2: 99% HT:160.0 cm WT: 113.0 kg BMI: 44.14 Weight Dosing Weight: 113 kg (03/09/24) General: Awake, alert and oriented x4. In no apparent distress. Able to answer questions appropriately and speak in full sentences. Supine in bed. HEENT: Sclera anicteric. Heart: S1 and S2 present. Lungs: Chest rise symmetrical. Respirations unlabored. Abdomen: Soft obese/rounded and nontender. Nondistended. No rigidity or guarding noted. Bowel sounds present. Extremities: Freely moving. Psychiatric: Calm and cooperative. Lab Results 03/09 07:56 Creatinine Lvl (s): 0.57 03/09 06:58 WBC: 13.0 H Hgb: 7.0 L Hct: 23.0 L Platelet: 312 Neutrophil %: 84.6 H Protime: 19.9 H PT International Ratio: 1.7 Glucose Level: 97 Sodium Level: 139 Potassium Level: 3.4 L BUN: 9.0 Creatinine Lvl (s): 0.57 Creatinine Lvl (s): 0.55 Imaging Results and Diagnostics Imaging completed at outside facility Assessment/Plan This patient is a 43-year-old female admitted to the stepdown unit of [facility] for diverticulitis, elevated troponin, and concern for UTI. Her initial workup was completed at [facility]; CT scan imaging of the abdomen and pelvis showed concern for diverticulitis with microperforation and possible abscess. General surgery is following secondary to these findings. On examination, she was seen resting supine in bed. She did not appear toxic or in any acute distress. She denied abdominal pain and current nausea/vomiting. Her abdomen was obese/rounded, soft and nontender. She has been passing flatus and moved her bowels yesterday. Laboratory studies reviewed. Leukocytosis noted on this morning's labs. Hemoglobin decreased at 7.0. She is currently receiving IV Zosyn. She is on a heparin by weight drip secondary to her elevated troponin levels. Plan: Diverticulitis Patient denied previous episodes of diverticulitis. At this time, we will plan to treat the patientconservatively with IV antibiotics. From the general surgery standpoint, she may be started on a clear liquid diet if okay with cardiology/the primary medical team. Continue to monitor abdominal exams/GI function As needed pain medication/antiemetics Further medical management per the primary medical team/consultants. The case will be discussed with Dr. Rodrigez. Please see his addendum for further details. Problem List/Past Medical History GERD Procedure/Surgical History No qualifying data available. Medications Inpatient Dextrose 50% IV Push, 12.5 gram(s)= 25 mL, IV Push, AsDirected, PRN Dilaudid, 0.25 mg= 0.25 mL, IV Push, q3h, PRN DuoNeb, 3 mL, Inhalation, q4hRT, PRN Heparin for IV 25,000 unit(s) [8.85 unit(s)/kg/hr] + Dextrose 5% Premix Diluent 250 mL Heparin HBW CARDIAC Bolus 5000 units/mL, 4000 unit(s)= 0.8 mL, 60 unit(s)/kg, IV Push, q6h, PRN LR 1,000 mL, 1000 mL, Intravenous omeprazole, 40 mg= 1 cap(s), Oral, qDay Tylenol, 650 mg= 2 tab(s), Oral, q4h, PRN Zofran, 4 mg= 2 mL, IV Push, q4h, PRN Zosyn, 3.375 gram(s)= 50 mL, IV Piggyback, q8hr Home PriLOSEC OTC, 40 mg, Oral, qDay Allergies NKA Social History Patient resides at home with her family Family History Patient reports a family history of diverticulitis; stated that her dad and his siblings have had diverticulitis in the past Immunizations No qualifying data available. Digitally Signed by COLIN EDWARDS on 03/09/2024 09:30 AM [id number] History and physical note Date of Service March 09, 2024 Chief Complaint Abdominal pain History of Present Illness This is a 43-year-old female with no significant past medical history that presents with chief complaint of abdominal pain. The patient asked complaints that she had sharp sudden onset lower quadrantabdominal pain, has had loose bowel movements for the last several days. Proceeded to the hospital for further evaluation. In , CTAP performed revealed evidence of diverticulitis with possible small perforation, abscess formation. General surgery consulted and recommended their service to be consulted in the morning. Patient was initiated on IV Zosyn upon arrival to . Additionally, cardiology consulted given troponin elevation, up to 230. EKG did not demonstrate ACS, recommendation made to be initiated on heparin drip. CBC with hemoglobin of 9.4, CMP with potassium of 3.1. Upon arrival to floor, patient's resting actively in bed without abdominal pain, chest pain, shortness of breath. Vital signs are currently stable at time of evaluation. Family is at bedside to discuss care. Additional complaint, patient states that her urine has had a foul stench over the last few days as well. Review of Systems Complete detailed review of systems obtained and all pertinent positives and negatives are noted inthe history of present illness. Physical Exam Vitals and Measurements HT: 160.0 cm WT: 113.0 kg BMI: 44.14 Weight Dosing Weight: 113 kg (03/09/24) Physical Examination General: No apparent distress. Alert and appropriate. HEENT: NCAT EOMI Neck: Supple. No appreciable elevation in JVP. Cardiovascular: S1 S2 normal. No extra-audible heart tones. Respiratory: Bilaterally clear breath sounds with no crepitation or wheeze. Abdominal: Soft, nontender and nonrigid. No guarding. Bowel sounds present. Extremities: No edema. Adequate peripheral circulation. Neurological: Grossly intact without focal deficit. Cerebellar function preserved. Skin: Intact. Dry. No rash. Lab Results No 36 Hour Lab Data Imaging Results and Diagnostics CTAP, reviewed, evidence of diverticulitis with microperforation and abscess formation EKG Ordered, pending Assessment/Plan Abdominal pain Diverticulitis with micro perforation and abscess formation Anemia UTI Hypokalemia Elevated troponin Patient was admitted to stepdown for management of multiple medical issues including abdominal painin the setting of diverticulitis with possible microperforation, abscess formation base of his CTAP. Additional component of abdominal pain could be related to patient's foul-smelling urine over the last few days, concern for UTI, evidence of increased leukocytes on UA. Additionally patient with elevated troponin, concern for possible NSTEMI. Patient made n.p.o. status, 100 cc an hour lactated Ringer's maintenance intravenous fluid ordered. Surgery service consulted, appreciate surgical recommendations. IV Zosyn ordered for diverticulitis and for UTI. Heparin drip initiated given possible NSTEMI, cardiology consulted, appreciate recommendations. CBC and BMP ordered daily and replete electrolytes as necessary. Patient was given 40 mEq potassiumgiven hypokalemia on labs. Trend troponin. IV Dilaudid for pain control. IV Zofran for nausea control. Continue patient's home chronic medications pending pharmacy verification. The labs, the imaging, the EKG were reviewed in this case. The case was discussed with the ED physician and LYLA. Procedure/Surgical History No qualifying data available. Medications No qualifying data available Allergies No active allergies Immunizations No qualifying data available. Code Status No qualifying data available. Digitally Signed by BONIFACIO BAILEY DO on 03/09/2024 04:51 AM [facility] Future App[facility]ments Appointment Date:03/27/2024 10:00:00 AM Scheduled Provider:ARLENE RODRIGEZ MD Location:Gen Surg CAN Appointment Type:[facility] Hospital Follow Up Appointment Date:04/02/2024 11:00:00 AM Scheduled Provider: Location:IR Appointment Type:IR Drainage Cath Injection for Eval Appointment Date:04/13/2024 01:20:00 PM Scheduled Provider:ROSA LOVE Location:UROLOGY Appointment Type:URO OV Future Scheduled Tests Radiology* IR Drainage Cath Injection for Eval 04/02/24 * US Renal 04/13/24 [facility] Evaluation + Plan note Future Appointments Appointment Date:04/02/2024 11:00:00 AM Scheduled Provider: Location:IR Appointment Type:IR Drainage Cath Injection for Eval Appointment Date:04/13/2024 01:20:00 PM Scheduled Provider:ROSA LOVE Location:UROLOGY Appointment Type:URO OV Appointment Date:05/05/2024 08:15:00 AM Scheduled Provider:ARLENE RODRIGEZ MD Location:Gen Surg CAN Appointment Type: OV Check after Test Future Scheduled Tests Radiology* IR Drainage Cath Injection for Eval 04/02/24 * CT Abdomen and Pelvis w/ contrast 03/27/24 * US Renal 04/13/24 [facility] Evaluation + Plan note Future Appointments Appointment Date:04/13/2024 01:20:00 PM Scheduled Provider:ROSA LOVE Location:UROLOGY Appointment Type:URO OV Appointment Date:04/15/2024 02:00:00 PM Scheduled Provider: Location:IR Appointment Type:IR Drainage Cath Injection for Eval Appointment Date:05/05/2024 08:15:00 AM Scheduled Provider:ARLENE RODRIGEZ MD Location:Gen Surg CAN Appointment Type:GS OV Check after Test Future Scheduled Tests Radiology* CT Abdomen and Pelvis w/ contrast 03/27/24 * US Renal 04/13/24 [facility] evaluation + Plan note Future Appointments Appointment Date:04/15/2024 02:00:00 PM Scheduled Provider: Location:IR Appointment Type:IR Drainage Cath Injection for Eval Appointment Date:05/05/2024 08:15:00 AM Scheduled Provider:ARLENE RODRIGEZ MD Location:Gen Surg CAN Appointment Type:GS OV Check after Test Future Scheduled Tests Radiology* IR Drainage Cath Injection for Eval 04/15/24 * CT Abdomen and Pelvis w/ contrast 03/27/24 * US Renal 04/13/24 [facility] evaluation + Plan note Future Appointments Appointment Date:2024 08:00:00 AM Scheduled Provider: Location:HEM ONC Appointment Type:HEM ONC Lab Only Appointment Date:2024 08:45:00 AM Scheduled Provider: Location:INF Appointment Type:INF/OSP Labwork Appointment Date:2024 09:30:00 AM Scheduled Provider:SHEA CLAY Location:HEM ONC Appointment Type:HEM ONC Chemo Teaching Appointment Date:08/04/2024 09:15:00 AM Scheduled Provider: Location:INF Appointment Type:INF/OSP Labwork Appointment Date:08/04/2024 10:00:00 AM Scheduled Provider:ROSEANN LUNDBERG MD Location:HEM ONC Appointment Type:HEM ONC OV Follow Up w/Active Treatment Appointment Date:08/04/2024 10:30:00 AM Scheduled Provider: Location:INF Appointment Type:INF Chemo: Infusion 240 min (4 hours) Appointment Date:08/06/2024 12:00:00 PM Scheduled Provider: Location:INF Appointment Type:INF/OSP Labwork Appointment Date:08/06/2024 12:15:00 PM Scheduled Provider: Location:INF Appointment Type:INF Chemo: Infusion Pump Discontinue 15 Appointment Date:08/07/2024 08:45:00 AM Scheduled Provider:ARLENE RODRIGEZ MD Location:Gen Surg CAN Appointment Type:GS OV Post Op Future Scheduled Tests Laboratory* Acute Hepatitis Panel 07/27/24 * Carcinoembryonic Antigen 07/27/24 * Complete Blood Count 07/27/24 * Complete Metabolic Panel 07/27/24 * [facility] Lab Send out (Blood Specimens) 07/10/24 Radiology* CT Thorax w/ Contrast 06/17/24 * CT Abdomen and Pelvis w/ contrast 06/17/24 * CT Abdomen and Pelvis w/ contrast 03/27/24 * US Renal 04/13/24 [facility] Evaluation + Plan note Future Appointments Appointment Date:08/04/2024 09:15:00 AM Scheduled Provider: Location:INF Appointment Type:INF/OSP Labwork Appointment Date:08/04/2024 10:00:00 AM Scheduled Provider:ROSEANN LUNDBERG MD Location:HEM ONC Appointment Type:HEM ONC OV Follow Up w/Active Treatment Appointment Date:08/04/2024 10:30:00 AM Scheduled Provider: Location:INF Appointment Type:INF Chemo: Infusion 240 min (4 hours) Appointment Date:08/06/2024 12:00:00 PM Scheduled Provider: Location:INF Appointment Type:INF/OSP Labwork Appointment Date:08/06/2024 12:15:00 PM Scheduled Provider: Location:INF Appointment Type:INF Chemo: Infusion Pump Discontinue 15 Appointment Date:08/07/2024 08:45:00 AM Scheduled Provider:ARLENE RODRIGEZ MD Location:Gen Surg CAN Appointment Type:GS OV Post Op Future Scheduled Tests Laboratory* [facility] Lab Send out (Blood Specimens) 07/10/24 Radiology* CT Thorax w/ Contrast 06/17/24 * CT Abdomen and Pelvis w/ contrast 06/17/24 * CT Abdomen and Pelvis w/ contrast 03/27/24 * US Renal 04/13/24 [facility] Evaluation + Plan note Future Appointments Appointment Date:08/06/2024 12:00:00 PM Scheduled Provider: Location:INF Appointment Type:INF/OSP Labwork Appointment Date:08/06/2024 12:15:00 PM Scheduled Provider: Location:INF Appointment Type:INF Chemo: Infusion Pump Discontinue 15 Appointment Date:08/07/2024 08:45:00 AM Scheduled Provider:ARLENE RODRIGEZ MD Location:Gen Surg CAN Appointment Type:GS OV Post Op Appointment Date:08/18/2024 09:00:00 AM Scheduled Provider: Location:INF Appointment Type:INF/OSP Labwork Appointment Date:08/18/2024 10:00:00 AM Scheduled Provider: Location:INF Appointment Type:INF Chemo: Infusion 240 min (4 hours) Appointment Date:08/20/2024 02:00:00 PM Scheduled Provider: Location:INF Appointment Type:INF/OSP Labwork Appointment Date:08/20/2024 02:15:00 PM Scheduled Provider: Location:INF Appointment Type:INF Chemo: Infusion Pump Discontinue 15 Appointment Date:09/01/2024 09:00:00 AM Scheduled Provider: Location:INF Appointment Type:INF/OSP Labwork Appointment Date:09/01/2024 09:45:00 AM Scheduled Provider:ROSEANN LUNDBERG MD Location:HEM ONC Appointment Type:HEM ONC OV Follow Up w/Active Treatment Appointment Date:09/01/2024 10:15:00 AM Scheduled Provider: Location:INF Appointment Type:INF Chemo: Infusion 240 min (4 hours) Appointment Date:09/03/2024 02:00:00 PM Scheduled Provider: Location:INF Appointment Type:INF/OSP Labwork Appointment Date:09/03/2024 02:15:00 PM Scheduled Provider: Location:INF Appointment Type:INF Chemo: Infusion Pump Discontinue 15 Future Scheduled Tests Laboratory* Carcinoembryonic Antigen 09/01/24 * Complete Blood Count 08/18/24 * Complete Blood Count 09/01/24 * Complete Metabolic Panel 08/18/24 * Complete Metabolic Panel 09/01/24 * [facility] [place] Specim[place] 07/30/24 Radiology* CT Thorax w/ Contrast 06/17/24 * CT Abdomen and Pelvis w/ contrast 06/17/24 * CT Abdomen and Pelvis w/ contrast 03/27/24 * US Renal 04/13/24 [facility] Evaluation + Plan note Future Appointments Appointment Date:08/07/2024 08:45:00 AM Scheduled Provider:ARLENE RODRIGEZ MD Location:Gen Surg CAN Appointment Type:GS OV Post Op Appointment Date:08/18/2024 08:00:00 AM Scheduled Provider: Location:INF Appointment Type:INF/OSP Labwork Appointment Date:08/18/2024 08:15:00 AM Scheduled Provider: Location:INF Appointment Type:INF Chemo: Infusion 240 min (4 hours) Appointment Date:08/20/2024 02:00:00 PM Scheduled Provider: Location:INF Appointment Type:INF/OSP Labwork Appointment Date:08/20/2024 02:15:00 PM Scheduled Provider: Location:INF Appointment Type:INF Chemo: Infusion Pump Discontinue 15 Appointment Date:09/01/2024 09:00:00 AM Scheduled Provider: Location:INF Appointment Type:INF/OSP Labwork Appointment Date:09/01/2024 09:45:00 AM Scheduled Provider:ROSEANN LUNDBERG MD Location:HEM ONC Appointment Type:HEM ONC OV Follow Up w/Active Treatment Appointment Date:09/01/2024 10:15:00 AM Scheduled Provider: Location:INF Appointment Type:INF Chemo: Infusion 240 min (4 hours) Appointment Date:09/03/2024 02:00:00 PM Scheduled Provider: Location:INF Appointment Type:INF/OSP Labwork Appointment Date:09/03/2024 02:15:00 PM Scheduled Provider: Location:INF Appointment Type:INF Chemo: Infusion Pump Discontinue 15 Future Scheduled Tests Laboratory* Carcinoembryonic Antigen 09/01/24 * Complete Blood Count 08/18/24 * Complete Blood Count 09/01/24 * Complete Metabolic Panel 08/18/24 * Complete Metabolic Panel 09/01/24 * [facility] Specimens) 07/30/24 Radiology* CT Thorax w/ Contrast 06/17/24 * CT Abdomen and Pelvis w/ contrast 06/17/24 * CT Abdomen and Pelvis w/ contrast 03/27/24 * US Renal 04/13/24 [facility] Evaluation + Plan note Future Appointments Appointment Date:08/18/2024 08:00:00 AM Scheduled Provider: Location:INF Appointment Type:INF/OSP Labwork Appointment Date:08/18/2024 08:15:00 AM Scheduled Provider: Location:INF Appointment Type:INF Chemo: Infusion 240 min (4 hours) Appointment Date:08/20/2024 02:00:00 PM Scheduled Provider: Location:INF Appointment Type:INF/OSP Labwork Appointment Date:08/20/2024 02:15:00 PM Scheduled Provider: Location:INF Appointment Type:INF Chemo: Infusion Pump Discontinue 15 Appointment Date:09/01/2024 09:00:00 AM Scheduled Provider: Location:INF Appointment Type:INF/OSP Labwork Appointment Date:09/01/2024 09:45:00 AM Scheduled Provider:ROSEANN LUNDBERG MD Location:HEM ONC Appointment Type:HEM ONC OV Follow Up w/Active Treatment Appointment Date:09/01/2024 10:15:00 AM Scheduled Provider: Location:INF Appointment Type:INF Chemo: Infusion 240 min (4 hours) Appointment Date:09/03/2024 02:00:00 PM Scheduled Provider: Location:INF Appointment Type:INF/OSP Labwork Appointment Date:09/03/2024 02:15:00 PM Scheduled Provider: Location:INF Appointment Type:INF Chemo: Infusion Pump Discontinue 15 Future Scheduled Tests Laboratory* Carcinoembryonic Antigen 09/01/24 * Complete Blood Count 08/18/24 * Complete Blood Count 09/01/24 * Complete Metabolic Panel 08/18/24 * Complete Metabolic [facility] 09/01/24 * [facility] Radiology* CT Thorax w/ Contrast 06/17/24 * CT Abdomen and Pelvis w/ contrast 06/17/24 * CT Abdomen and Pelvis w/ contrast 03/27/24 * US Renal 04/13/24 [facility] Evaluation + Plan note Future Appointments Appointment Date:08/25/2024 07:45:00 AM Scheduled Provider: Location:INF Appointment Type:INF/OSP Labwork Appointment Date:08/25/2024 08:30:00 AM Scheduled Provider:ROSEANN LUDNBERG MD Location:HEM ONC Appointment Type:HEM ONC OV Follow Up w/Active Treatment Appointment Date:08/25/2024 09:00:00 AM Scheduled Provider: Location:INF Appointment Type:INF Chemo: Infusion 240 min (4 hours) Appointment Date:08/27/2024 12:45:00 PM Scheduled Provider: Location:INF Appointment Type:INF/OSP Labwork Appointment Date:08/27/2024 01:00:00 PM Scheduled Provider: Location:INF Appointment Type:INF Chemo: Infusion Pump Discontinue 15 Future Scheduled Tests Laboratory* Carcinoembryonic Antigen 09/01/24 * Complete Blood Count 08/13/24 * Complete Blood Count 09/01/24 * Complete Metabolic Panel 09/01/24 * [facility] Specimens) 07/30/24 Radiology* CT Thorax w/ Contrast 06/17/24 * XR Hip 3-4 Views Bilateral 08/13/24 * CT Abdomen and Pelvis w/ contrast 06/17/24 * CT Abdomen and Pelvis w/ contrast 03/27/24 * US Renal 04/13/24 [facility] Evaluation + Plan note Future Appointments Appointment Date:09/16/2024 12:00:00 PM Scheduled Provider: Location:XRAY Appointment Type:CT Abd/Pelvis w/ IV Contrast Only Appointment Date:09/16/2024 01:00:00 PM Scheduled Provider: Location:IR Appointment Type:IR Drainage Cath Injection for Eval Appointment Date:09/22/2024 07:45:00 AM Scheduled Provider: Location:INF Appointment Type:INF/OSP Labwork Appointment Date:09/22/2024 08:30:00 AM Scheduled Provider:ROSEANN LUNDBERG MD Location:HEM ONC Appointment Type:HEM ONC OV Follow Up w/ Active Treatme Appointment Date:09/22/2024 09:00:00 AM Scheduled Provider: Location:INF Appointment Type:INF Chemo: Infusion 240 min (4 hours) Appointment Date:09/24/2024 01:15:00 PM Scheduled Provider: Location:INF Appointment Type:INF/OSP Labwork Appointment Date:09/24/2024 01:30:00 PM Scheduled Provider: Location:INF Appointment Type:INF Chemo: Infusion Pump Discontinue 15 Appointment Date:10/13/2024 08:15:00 AM Scheduled Provider:ARLENE RODRIGEZ MD Location:Gen Surg CAN Appointment Type:GS OV Post Op Future Scheduled Tests Laboratory* Carcinoembryonic Antigen 09/01/24 * Complete Blood Count 08/25/24 * Complete Blood Count 08/13/24 * Complete Blood Count 09/01/24 * Complete Metabolic Panel 08/25/24 * Complete Metabolic Panel 09/01/24 * [facility] Lab Send Out (Non-Blood Specimens) 07/30/24 Radiology* IR Drainage Cath Injection for Eval 09/16/24 * CT Thorax w/ Contrast 06/17/24 * CT Abd/Pelvis w/ IV Contrast Only 09/16/24 * XR Hip 3-4 Views Bilateral 08/13/24 * CT Abdomen and Pelvis w/ contrast 06/17/24 * CT Abdomen and Pelvis w/ contrast 03/27/24 * US Renal 04/13/24 [facility] Evaluation + Plan note Future Appointments Appointment Date:09/24/2024 01:15:00 PM Scheduled Provider: Location:INF Appointment Type:INF/OSP Labwork Appointment Date:09/24/2024 01:30:00 PM Scheduled Provider: Location:INF Appointment Type:INF Chemo: Infusion Pump Discontinue 15 Appointment Date:09/25/2024 12:15:00 PM Scheduled Provider: Location:INF Appointment Type:INF/OSP Labwork Appointment Date:09/25/2024 12:30:00 PM Scheduled Provider: Location:INF Appointment Type:INF Chemo: Infusion Injection 15 min Appointment Date:09/30/2024 01:00:00 PM Scheduled Provider: Location:IR Appointment Type:IR Drainage Cath Injection for Eval Appointment Date:10/06/2024 09:15:00 AM Scheduled Provider: Location:INF Appointment Type:INF/OSP Labwork Appointment Date:10/06/2024 10:00:00 AM Scheduled Provider:SHEA CLAYPROPOSAL EDITOR Location:HEM ONC Appointment Type:HEM ONC OV Follow Up w/FLEXO OPERATOR Active Treat Appointment Date:10/06/2024 10:30:00 AM Scheduled Provider: Location:INF Appointment Type:INF Chemo: Infusion 240 min (4 hours) Appointment Date:10/08/2024 12:15:00 PM Scheduled Provider: Location:INF Appointment Type:INF/OSP Labwork Appointment Date:10/08/2024 12:30:00 PM Scheduled Provider: Location:INF Appointment Type:INF Chemo: Infusion Pump Discontinue 15 Appointment Date:10/09/2024 12:15:00 PM Scheduled Provider: Location:INF Appointment Type:INF/OSP Labwork Appointment Date:10/09/2024 12:30:00 PM Scheduled Provider: Location:INF Appointment Type:INF Chemo: Infusion Injection 15 min Appointment Date:10/13/2024 08:15:00 AM Scheduled Provider:ARLENE RODRIGEZ MD Location:Gen Surg CAN Appointment Type:GS OV Post Op Appointment Date:10/20/2024 08:15:00 AM Scheduled Provider: Location:INF Appointment Type:INF/OSP Labwork Appointment Date:10/20/2024 09:00:00 AM Scheduled Provider:ROSEANN LUNDBERG MD Location:HEM ONC Appointment Type:HEM ONC OV Follow Up w/ Active Treatme Appointment Date:10/20/2024 09:30:00 AM Scheduled Provider: Location:INF Appointment Type:INF Chemo: Infusion 240 min (4 hours) Appointment Date:10/22/2024 12:15:00 PM Scheduled Provider: Location:INF Appointment Type:INF/OSP Labwork Appointment Date:10/22/2024 12:30:00 PM Scheduled Provider: Location:INF Appointment Type:INF Chemo: Infusion Pump Discontinue 15 Appointment Date:10/23/2024 12:15:00 PM Scheduled Provider: Location:INF Appointment Type:INF/OSP Labwork Appointment Date:10/23/2024 12:30:00 PM Scheduled Provider: Location:INF Appointment Type:INF Chemo: Infusion Injection 15 min Future Scheduled Tests Laboratory* Complete Blood Count 10/06/24 * Complete Blood Count 10/20/24 * Complete Blood Count 11/03/24 * Complete Metabolic Panel 10/06/24 * Complete Metabolic Panel 10/20/24 * Complete Metabolic Panel 11/03/24 * [facility] Specimens) 07/[place] Radiology* IR Drainage Cath Injection for Eval 09/30/24 * CT Thorax w/ Contrast 06/17/24 * XR Hip 3-4 Views Bilateral 08/13/24 * CT Abdomen and Pelvis w/ contrast 06/17/24 * CT Abdomen and Pelvis w/ contrast 03/27/24 * US Renal 04/13/24 [facility] Evaluation + Plan note Future Appointments Appointment Date:09/30/2024 01:00:00 PM Scheduled Provider: Location:IR Appointment Type:IR Drainage Cath Injection for Eval Appointment Date:10/06/2024 09:15:00 AM Scheduled Provider: Location:INF Appointment Type:INF/OSP Labwork Appointment Date:10/06/2024 10:00:00 AM Scheduled Provider:SHEA CLAY Location:HEM ONC Appointment Type:HEM ONC OV Follow Up w/FLEXO OPERATOR Active Treat Appointment Date:10/06/2024 10:30:00 AM Scheduled Provider: Location:INF Appointment Type:INF Chemo: Infusion 240 min (4 hours) Appointment Date:10/08/2024 12:15:00 PM Scheduled Provider: Location:INF Appointment Type:INF/OSP Labwork Appointment Date:10/08/2024 12:30:00 PM Scheduled Provider: Location:INF Appointment Type:INF Chemo: Infusion Pump Discontinue 15 Appointment Date:10/09/2024 12:15:00 PM Scheduled Provider: Location:INF Appointment Type:INF/OSP Labwork Appointment Date:10/09/2024 12:30:00 PM Scheduled Provider: Location:INF Appointment Type:INF Chemo: Infusion Injection 15 min Appointment Date:10/13/2024 08:15:00 AM Scheduled Provider:ARLENE RODRIGEZ MD Location:Gen Surg CAN Appointment Type:GS OV Post Op Appointment Date:10/20/2024 08:15:00 AM Scheduled Provider: Location:INF Appointment Type:INF/OSP Labwork Appointment Date:10/20/2024 09:00:00 AM Scheduled Provider:ROSEANN LUNDBERG MD Location:HEM ONC Appointment Type:HEM ONC OV Follow Up w/ Active Treatme Appointment Date:10/20/2024 09:30:00 AM Scheduled Provider: Location:INF Appointment Type:INF Chemo: Infusion 240 min (4 hours) Appointment Date:10/22/2024 12:15:00 PM Scheduled Provider: Location:INF Appointment Type:INF/OSP Labwork Appointment Date:10/22/2024 12:30:00 PM Scheduled Provider: Location:INF Appointment Type:INF Chemo: Infusion Pump Discontinue 15 Appointment Date:10/23/2024 12:15:00 PM Scheduled Provider: Location:INF Appointment Type:INF/OSP Labwork Appointment Date:10/23/2024 12:30:00 PM Scheduled Provider: Location:INF Appointment Type:INF Chemo: Infusion Injection 15 min Future Scheduled Tests Laboratory* Complete Blood Count 10/06/24 * Complete Blood Count 10/20/24 * Complete Blood Count 11/03/24 * Complete Metabolic Panel 10/06/24 * Complete Metabolic Panel 10/20/24 * Complete Metabolic Panel 11/03/24 * [facility] Lab Send Out (Non-Blood Specimens) 07/30/24 Radiology* IR Drainage Cath Injection for Eval 09/30/24 * CT Thorax w/ Contrast 06/17/24 * XR Hip 3-4 Views Bilateral 08/13/24 * CT Abdomen and Pelvis w/ contrast 06/17/24 * CT Abdomen and Pelvis w/ contrast 03/27/24 * US Renal 04/13/24 [facility] Evaluation + Plan note Future Appointments Appointment Date:10/06/2024 09:15:00 AM Scheduled Provider: Location:INF Appointment Type:INF/OSP Labwork Appointment Date:10/06/2024 10:00:00 AM Scheduled Provider:SHEA CLAYPROPOS[employer] EDITOR Location:[facility] Appointment Type:[facility]M [facility]C OV Follow Up w/LILIYA Active Treat Appointment Date:10/06/2024 10:30:00 AM Scheduled Provider: Location:INF Appointment Type:INF Chemo: Infusion 240 min (4 hours) Appointment Date:10/08/2024 12:15:00 PM Scheduled Provider: Location:INF Appointment Type:INF/OSP Labwork Appointment Date:10/08/2024 12:30:00 PM Scheduled Provider: Location:INF Appointment Type:INF Chemo: Infusion Pump Discontinue 15 Appointment Date:10/09/2024 12:15:00 PM Scheduled Provider: Location:INF Appointment Type:INF/OSP Labwork Appointment Date:10/09/2024 12:30:00 PM Scheduled Provider: Location:INF Appointment Type:INF Chemo: Infusion Injection 15 min Appointment Date:10/13/2024 08:15:00 AM Scheduled Provider:ARLENE RODRIGEZ MD Location:[facility] Appointment Type:GS OV Post Op Appointment Date:10/20/2024 08:15:00 AM Scheduled Provider: Location:INF Appointment Type:INF/OSP Labwork Appointment Date:10/20/2024 09:00:00 AM Scheduled Provider:ROSEANN LUNDBERG MD Location:[facility] Appointment Type:HEM ONC OV Follow Up w/ Active Treatme Appointment Date:10/20/2024 09:30:00 AM Scheduled Provider: Location:INF Appointment Type:INF Chemo: Infusion 240 min (4 hours) Appointment Date:10/22/2024 12:15:00 PM Scheduled Provider: Location:INF Appointment Type:INF/OSP Labwork Appointment Date:10/22/2024 12:30:00 PM Scheduled Provider: Location:INF Appointment Type:INF Chemo: Infusion Pump Discontinue 15 Appointment Date:10/23/2024 12:15:00 PM Scheduled Provider: Location:INF Appointment Type:INF/OSP Labwork Appointment Date:10/23/2024 12:30:00 PM Scheduled Provider: Location:INF Appointment Type:INF Chemo: Infusion Injection 15 min Future Scheduled Tests Laboratory* Complete Blood Count 10/06/24 * Complete Blood Count 10/20/24 * Complete Blood Count 11/03/24 * Complete Metabolic Panel 10/06/24 * Complete Metabolic Panel 10/20/24 * Complete Metabolic Panel 11/03/24 * [facility] Lab Send Out (Non-Blood Specimens) 07/30/24 Radiology* CT Thorax w/ Contrast 06/17/24 * XR Hip 3-4 Views Bilateral 08/13/24 * CT Abdomen and Pelvis w/ contrast 06/17/24 * US Renal 04/13/24 [facility] Evaluation + Plan note Future Appointments Appointment Date:10/08/2024 12:15:00 PM Scheduled Provider: Location:INF Appointment Type:INF/OSP Labwork Appointment Date:10/08/2024 12:30:00 PM Scheduled Provider: Location:INF Appointment Type:INF Chemo: Infusion Pump Discontinue 15 Appointment Date:10/09/2024 12:15:00 PM Scheduled Provider: Location:INF Appointment Type:INF/OSP Labwork Appointment Date:10/09/2024 12:30:00 PM Scheduled Provider: Location:INF Appointment Type:INF Chemo: Infusion Injection 15 min Appointment Date:10/13/2024 08:15:00 AM Scheduled Provider:ARLENE RODRIGEZ MD Location:[facility] Appointment Type:GS OV Post Op Appointment Date:10/20/2024 08:15:00 AM Scheduled Provider: Location:INF Appointment Type:INF/OSP Labwork Appointment Date:10/20/2024 09:00:00 AM Scheduled Provider:ROSEANN LUNDBERG MD Location:[facility] Appointment Type:HEM ONC OV Follow Up w/ Active Treatme Appointment Date:10/20/2024 09:30:00 AM Scheduled Provider: Location:INF Appointment Type:INF Chemo: Infusion 240 min (4 hours) Appointment Date:10/22/2024 12:15:00 PM Scheduled Provider: Location:INF Appointment Type:INF/OSP Labwork Appointment Date:10/22/2024 12:30:00 PM Scheduled Provider: Location:INF Appointment Type:INF Chemo: Infusion Pump Discontinue 15 Appointment Date:10/23/2024 12:15:00 PM Scheduled Provider: Location:INF Appointment Type:INF/OSP Labwork Appointment Date:10/23/2024 12:30:00 PM Scheduled Provider: Location:INF Appointment Type:INF Chemo: Infusion Injection 15 min Future Scheduled Tests Laboratory* Complete Blood Count 10/20/24 * Complete Blood Count 11/03/24 * Complete Metabolic Panel 10/20/24 * Complete Metabolic Panel 11/03/24 * [facility] Radiology* CT Thorax w/ Contrast 06/17/24 * XR Hip 3-4 Views Bilateral 08/13/24 * CT Abdomen and Pelvis w/ contrast 06/17/24 * US Renal 04/13/24 [facility] Evaluation + Plan note Future Appointments Appointment Date:10/13/2024 08:15:00 AM Scheduled Provider:ARLENE RODRIGEZ MD Location:[facility] Appointment Type:GS OV Post Op Appointment Date:10/20/2024 08:15:00 AM Scheduled Provider: Location:INF Appointment Type:INF/OSP Labwork Appointment Date:10/20/2024 09:00:00 AM Scheduled Provider:ROSEANN LUNDBERG MD Location:[facility] Appointment Type:HEM ONC OV Follow Up w/ Active Treatme Appointment Date:10/20/2024 09:30:00 AM Scheduled Provider: Location:INF Appointment Type:INF Chemo: Infusion 240 min (4 hours) Appointment Date:10/22/2024 12:15:00 PM Scheduled Provider: Location:INF Appointment Type:INF/OSP Labwork Appointment Date:10/22/2024 12:30:00 PM Scheduled Provider: Location:INF Appointment Type:INF Chemo: Infusion Pump Discontinue 15 Appointment Date:10/23/2024 12:15:00 PM Scheduled Provider: Location:INF Appointment Type:INF/OSP Labwork Appointment Date:10/23/2024 12:30:00 PM Scheduled Provider: Location:INF Appointment Type:INF Chemo: Infusion Injection 15 min Future Scheduled Tests Laboratory* Complete Blood Count 10/20/24 * Complete Blood Count 11/03/24 * Complete Metabolic Panel 10/20/24 * Complete Metabolic Panel 11/03/24 * [facility] Lab Send Out (Non-Blood Specimens) 07/30/24 Radiology* CT Thorax w/ Contrast 06/17/24 * XR Hip 3-4 Views Bilateral 08/13/24 * CT Abdomen and Pelvis w/ contrast 06/17/24 * US Renal 04/13/24 [facility] Evaluation + Plan note Future Appointments Appointment Date:10/20/2024 08:15:00 AM Scheduled Provider: Location:INF Appointment Type:INF/OSP Labwork Appointment Date:10/20/2024 09:00:00 AM Scheduled Provider:ROSEANN LUNDBERG MD Location:[facility] Appointment Type:HEM ONC OV Follow Up w/ Active Treatme Appointment Date:10/20/2024 09:30:00 AM Scheduled Provider: Location:INF Appointment Type:INF Chemo: Infusion 240 min (4 hours) Appointment Date:10/22/2024 12:15:00 PM Scheduled Provider: Location:INF Appointment Type:INF/OSP Labwork Appointment Date:10/22/2024 12:30:00 PM Scheduled Provider: Location:INF Appointment Type:INF Chemo: Infusion Pump Discontinue 15 Appointment Date:10/23/2024 12:15:00 PM Scheduled Provider: Location:INF Appointment Type:INF/OSP Labwork Appointment Date:10/23/2024 12:30:00 PM Scheduled Provider: Location:INF Appointment Type:INF Chemo: Infusion Injection 15 min Appointment Date:11/10/2024 08:15:00 AM Scheduled Provider:ARLENE RODRIGEZ MD Location:[facility] Appointment Type:GS OV Post Op Future Scheduled Tests Laboratory* Complete Blood Count 10/20/24 * Complete Blood Count 11/03/24 * Complete Metabolic Panel 10/20/24 * Complete Metabolic Panel 11/03/24 * [facility] Lab Send Out (Non-Blood Specimens) 07/30/24 Radiology* CT Thorax w/ Contrast 06/17/24 * XR Hip 3-4 Views Bilateral 08/13/24 * CT Abdomen and Pelvis w/ contrast 06/17/24 * US Renal 04/13/24 [facility] Evaluation + Plan note Future Appointments Appointment Date:10/22/2024 12:15:00 PM Scheduled Provider: Location:INF Appointment Type:INF/OSP Labwork Appointment Date:10/22/2024 12:30:00 PM Scheduled Provider: Location:INF Appointment Type:INF Chemo: Infusion Pump Discontinue 15 Appointment Date:10/28/2024 02:00:00 PM Scheduled Provider: Location:NX[facility] Appointment Type:yyCT Abdomen and Pelvis w/ Contrast 3 Appointment Date:10/28/2024 02:15:00 PM Scheduled Provider: Location:[facility] Appointment Type:yyCT Chest w/ Contrast 3 Appointment Date:11/03/2024 08:45:00 AM Scheduled Provider: Location:INF Appointment Type:INF/OSP Labwork Appointment Date:11/03/2024 09:30:00 AM Scheduled Provider:ROSEANN LUNDBERG MD Location:[facility] Appointment Type:HEM ONC OV Follow Up w/ Active Treatme Appointment Date:11/03/2024 10:00:00 AM Scheduled Provider: Location:INF Appointment Type:INF Chemo: Infusion 240 min (4 hours) Appointment Date:11/05/2024 01:00:00 PM Scheduled Provider: Location:INF Appointment Type:INF/OSP Labwork Appointment Date:11/05/2024 01:15:00 PM Scheduled Provider: Location:INF Appointment Type:INF Chemo: Infusion Pump Discontinue 15 Appointment Date:11/10/2024 08:15:00 AM Scheduled Provider:ARLNEE RODRIGEZ MD Location:[facility] Appointment Type:GS OV Post Op Future Scheduled Tests Laboratory* Carcinoembryonic Antigen 11/03/24 * Complete Blood Count 11/03/24 * Complete Blood Count 11/03/24 * Complete Metabolic Panel 11/03/24 * Complete Metabolic Panel 11/03/24 * [facility] Lab Send Out (Non-Blood Specimens) 07/30/24 Radiology* CT Thorax w/ Contrast 06/17/24 * CT Thorax w/ Contrast 10/28/24 * XR Hip 3-4 Views Bilateral 08/13/24 * CT Abdomen and Pelvis w/ contrast 06/17/24 * CT Abdomen and Pelvis w/ contrast 10/28/24 * US Renal 04/13/24 [facility] Evaluation + Plan note Future Appointments Appointment Date:10/28/2024 02:00:00 PM Scheduled Provider: Location:[facility] Appointment Type:yyCT Abdomen and Pelvis w/ Contrast 3 Appointment Date:10/28/2024 02:15:00 PM Scheduled Provider: Location:[facility] Appointment Type:yyCT Chest w/ Contrast 3 Appointment Date:11/03/2024 08:45:00 AM Scheduled Provider: Location:INF Appointment Type:INF/OSP Labwork Appointment Date:11/03/2024 09:30:00 AM Scheduled Provider:ROSEANN LUNDBERG MD Location:[facility] Appointment Type:HEM ONC OV Follow Up w/ Active Treatme Appointment Date:11/03/2024 10:00:00 AM Scheduled Provider: Location:INF Appointment Type:INF Chemo: Infusion 240 min (4 hours) Appointment Date:11/05/2024 01:00:00 PM Scheduled Provider: Location:INF Appointment Type:INF/OSP Labwork Appointment Date:11/05/2024 01:15:00 PM Scheduled Provider: Location:INF Appointment Type:INF Chemo: Infusion Pump Discontinue 15 Appointment Date:11/10/2024 08:15:00 AM Scheduled Provider:ARLENE RODRIGEZ MD Location:[facility] Appointment Type:GS OV Post Op Future Scheduled Tests Laboratory* Carcinoembryonic Antigen 11/03/24 * Complete Blood Count 11/03/24 * Complete Blood Count 11/03/24 * Complete Metabolic Panel 11/03/24 * Complete Metabolic Panel 11/03/24 * [facility] [place] Specimens) 07/30/24 Radiology* CT Thorax w/ Contrast 06/17/24 * CT Thorax w/ Contrast 10/28/24 * XR Hip 3-4 Views Bilateral 08/13/24 * CT Abdomen and Pelvis w/ contrast 06/17/24 * CT Abdomen and Pelvis w/ contrast 10/28/24 * US Renal 04/13/24 [facility] Evaluation + Plan note Future Appointments Appointment Date:11/05/2024 01:00:00 PM Scheduled Provider: Location:INF Appointment Type:INF/OSP Labwork Appointment Date:11/05/2024 01:15:00 PM Scheduled Provider: Location:INF Appointment Type:INF Chemo: Infusion Pump Discontinue 15 Appointment Date:11/10/2024 08:15:00 AM Scheduled Provider:ARLENE RODRIGEZ MD Location:[facility] Appointment Type:GS OV Post Op Appointment Date:11/17/2024 09:00:00 AM Scheduled Provider: Location:INF Appointment Type:INF/OSP Labwork Appointment Date:11/17/2024 09:15:00 AM Scheduled Provider: Location:INF Appointment Type:INF Chemo: Infusion 240 min (4 hours) Appointment Date:11/19/2024 01:30:00 PM Scheduled Provider: Location:INF Appointment Type:INF/OSP Labwork Appointment Date:11/19/2024 01:45:00 PM Scheduled Provider: Location:INF Appointment Type:INF Chemo: Infusion Pump Discontinue 15 Appointment Date:12/01/2024 08:15:00 AM Scheduled Provider: Location:INF Appointment Type:INF/OSP Labwork Appointment Date:12/01/2024 09:00:00 AM Scheduled Provider:FRANCES MCKEON Location:[facility] Appointment Type:HEM ONC OV Follow Up w/FLEXO OPERATOR Active Treat Appointment Date:12/01/2024 09:30:00 AM Scheduled Provider: Location:INF Appointment Type:INF Chemo: Infusion 240 min (4 hours) Appointment Date:12/03/2024 01:30:00 PM Scheduled Provider: Location:INF Appointment Type:INF/OSP Labwork Appointment Date:12/03/2024 01:45:00 PM Scheduled Provider: Location:INF Appointment Type:INF Chemo: Infusion Pump Discontinue 15 Future Scheduled Tests Laboratory* Complete Blood Count 11/03/24 * Complete Blood Count 11/17/24 * Complete Blood Count 12/01/24 * Complete Metabolic Panel 11/03/24 * Complete Metabolic Panel 11/17/24 * Complete Metabolic Panel 12/01/24 * [facility] [place] Specimens) 07/30/24 Radiology* CT Thorax w/ Contrast 06/17/24 * XR Hip 3-4 Views Bilateral 08/13/24 * CT Abdomen and Pelvis w/ contrast 06/17/24 * US Renal 04/13/24 [facility] Evaluation + Plan note Future Appointments Appointment Date:11/10/2024 08:15:00 AM Scheduled Provider:ARLENE RODRIGEZ MD Location:[facility] Appointment Type:GS OV Post Op Appointment Date:11/17/2024 09:00:00 AM Scheduled Provider: Location:INF Appointment Type:INF/OSP Labwork Appointment Date:11/17/2024 09:15:00 AM Scheduled Provider: Location:INF Appointment Type:INF Chemo: Infusion 240 min (4 hours) Appointment Date:11/19/2024 01:30:00 PM Scheduled Provider: Location:INF Appointment Type:INF/OSP Labwork Appointment Date:11/19/2024 01:45:00 PM Scheduled Provider: Location:INF Appointment Type:INF Chemo: Infusion Pump Discontinue 15 Appointment Date:12/01/2024 08:15:00 AM Scheduled Provider: Location:INF Appointment Type:INF/OSP Labwork Appointment Date:12/01/2024 09:00:00 AM Scheduled Provider:FRANCES MCKEON Location:[facility] Appointment Type:HEM ONC OV Follow Up w/FLEXO OPERATOR Active Treat Appointment Date:12/01/2024 09:30:00 AM Scheduled Provider: Location:INF Appointment Type:INF Chemo: Infusion 240 min (4 hours) Appointment Date:12/03/2024 01:30:00 PM Scheduled Provider: Location:INF Appointment Type:INF/OSP Labwork Appointment Date:12/03/2024 01:45:00 PM Scheduled Provider: Location:INF Appointment Type:INF Chemo: Infusion Pump Discontinue 15 Diagnostic Tests Pending * Complete Blood Count 11/05/24 * Complete Metabolic Panel 11/05/24 Future Scheduled Tests Laboratory* Complete Blood Count 11/17/24 * Complete Blood Count 12/01/24 * Complete Metabolic Panel 11/17/24 * Complete Metabolic Panel 12/01/24 * [facility] [place] Specimens) 07/30/24 Radiology* CT Thorax w/ Contrast 06/17/24 * XR Hip 3-4 Views Bilateral 08/13/24 * CT Abdomen and Pelvis w/ contrast 06/17/24 * US Renal 04/13/24 [facility] Evaluation + Plan note Future Appointments Appointment Date:11/17/2024 09:00:00 AM Scheduled Provider: Location:INF Appointment Type:INF/OSP Labwork Appointment Date:11/17/2024 09:15:00 AM Scheduled Provider: Location:INF Appointment Type:INF Chemo: Infusion 240 min (4 hours) Appointment Date:11/19/2024 01:30:00 PM Scheduled Provider: Location:INF Appointment Type:INF/OSP Labwork Appointment Date:11/19/2024 01:45:00 PM Scheduled Provider: Location:INF Appointment Type:INF Chemo: Infusion Pump Discontinue 15 Appointment Date:12/01/2024 08:15:00 AM Scheduled Provider: Location:INF Appointment Type:INF/OSP Labwork Appointment Date:12/01/2024 09:00:00 AM Scheduled Provider:FRANCES MCKEON Location:[facility] Appointment Type:HEM ONC OV Follow Up w/FLEXO OPERATOR Active Treat Appointment Date:12/01/2024 09:30:00 AM Scheduled Provider: Location:INF Appointment Type:INF Chemo: Infusion 240 min (4 hours) Appointment Date:12/03/2024 01:30:00 PM Scheduled Provider: Location:INF Appointment Type:INF/OSP Labwork Appointment Date:12/03/2024 01:45:00 PM Scheduled Provider: Location:INF Appointment Type:INF Chemo: Infusion Pump Discontinue 15 Appointment Date:01/05/2025 10:00:00 AM Scheduled Provider:ARLENE RODRIGEZ MD Location:[facility] Appointment Type:GS OV Check Up Future Scheduled Tests Laboratory* Complete Blood Count 11/17/24 * Complete Blood Count 12/01/24 * Complete Metabolic Panel 11/17/24 * Complete Metabolic Panel 12/01/24 * [facility] [place] Specimens) 07/30/24 Radiology* CT Thorax w/ Contrast 06/17/24 * XR Hip 3-4 Views Bilateral 08/13/24 * CT Abdomen and Pelvis w/ contrast 06/17/24 * US Renal 04/13/24 [facility] Evaluation + Plan note Future Appointments Appointment Date:11/19/2024 01:30:00 PM Scheduled Provider: Location:INF Appointment Type:INF/OSP Labwork Appointment Date:11/19/2024 01:45:00 PM Scheduled Provider: Location:INF Appointment Type:INF Chemo: Infusion Pump Discontinue 15 Appointment Date:12/01/2024 08:15:00 AM Scheduled Provider: Location:INF Appointment Type:INF/OSP Labwork Appointment Date:12/01/2024 09:00:00 AM Scheduled Provider:FRANCES MCKEON APRN-YUSRA Location:[facility] Appointment Type:HEM ONC OV Follow Up w/FLEXO OPERATOR Active Treat Appointment Date:12/01/2024 09:30:00 AM Scheduled Provider: Location:INF Appointment Type:INF Chemo: Infusion 240 min (4 hours) Appointment Date:12/03/2024 01:30:00 PM Scheduled Provider: Location:INF Appointment Type:INF/OSP Labwork Appointment Date:12/03/2024 01:45:00 PM Scheduled Provider: Location:INF Appointment Type:INF Chemo: Infusion Pump Discontinue 15 Appointment Date:01/05/2025 10:00:00 AM Scheduled Provider:ARLENE RODRIGEZ MD Location:[facility] Appointment Type:GS OV Check Up Future Scheduled Tests Laboratory* Complete Blood Count 12/01/24 * Complete Metabolic Panel 12/01/24 * [facility] [place] ([place] Specimens) 07/30/24 Radiology* CT Thorax w/ Contrast 06/17/24 * XR Hip 3-4 Views Bilateral 08/13/24 * CT Abdomen and Pelvis w/ contrast 06/17/24 * US Renal 04/13/24 [facility] Evaluation + Plan note Future Appointments Appointment Date:12/15/2024 08:30:00 AM Scheduled Provider: Location:INF Appointment Type:INF/OSP Labwork Appointment Date:12/15/2024 08:45:00 AM Scheduled Provider: Location:INF Appointment Type:INF Chemo: Infusion 240 min (4 hours) Appointment Date:12/17/2024 12:30:00 PM Scheduled Provider: Location:INF Appointment Type:INF/OSP Labwork Appointment Date:12/17/2024 12:45:00 PM Scheduled Provider: Location:INF Appointment Type:INF Chemo: Infusion Pump Discontinue 15 Appointment Date:12/29/2024 08:15:00 AM Scheduled Provider: Location:INF Appointment Type:INF/OSP Labwork Appointment Date:12/29/2024 09:00:00 AM Scheduled Provider:ROSEANN LUNDBERG MD Location:[facility] Appointment Type:HEM ONC OV Follow Up w/ Active Treatme Appointment Date:12/29/2024 09:30:00 AM Scheduled Provider: Location:INF Appointment Type:INF Chemo: Infusion 240 min (4 hours) Appointment Date:12/31/2024 12:30:00 PM Scheduled Provider: Location:INF Appointment Type:INF/OSP Labwork Appointment Date:12/31/2024 12:45:00 PM Scheduled Provider: Location:INF Appointment Type:INF Chemo: Infusion Pump Discontinue 15 Appointment Date:01/05/2025 10:00:00 AM Scheduled Provider:ARLENE RODRIGZE MD Location:[facility] Appointment Type:GS OV Check Up Future Scheduled Tests Laboratory* Carcinoembryonic Antigen 12/15/24 * Complete Blood Count 12/15/24 * Complete Blood Count 12/29/24 * Complete Metabolic Panel 12/15/24 * Complete Metabolic Panel 12/29/24 * [facility]30/24 Radiology* CT Thorax w/ Contrast 06/17/24 * XR Hip 3-4 Views Bilateral 08/13/24 * CT Abdomen and Pelvis w/ contrast 06/17/24 * US Renal 04/13/24 [facility] Evaluation + Plan note Future Appointments Appointment Date:12/03/2024 01:30:00 PM Scheduled Provider: Location:INF Appointment Type:INF/OSP Labwork Appointment Date:12/03/2024 01:45:00 PM Scheduled Provider: Location:INF Appointment Type:INF Chemo: Infusion Pump Discontinue 15 Appointment Date:12/15/2024 08:30:00 AM Scheduled Provider: Location:INF Appointment Type:INF/OSP Labwork Appointment Date:12/15/2024 08:45:00 AM Scheduled Provider: Location:INF Appointment Type:INF Chemo: Infusion 240 min (4 hours) Appointment Date:12/17/2024 12:30:00 PM Scheduled Provider: Location:INF Appointment Type:INF/OSP Labwork Appointment Date:12/17/2024 12:45:00 PM Scheduled Provider: Location:INF Appointment Type:INF Chemo: Infusion Pump Discontinue 15 Appointment Date:12/29/2024 08:15:00 AM Scheduled Provider: Location:INF Appointment Type:INF/OSP Labwork Appointment Date:12/29/2024 09:00:00 AM Scheduled Provider:ROSEANN LUNDBERG MD Location:[facility] Appointment Type:HEM ONC OV Follow Up w/ Active Treatme Appointment Date:12/29/2024 09:30:00 AM Scheduled Provider: Location:INF Appointment Type:INF Chemo: Infusion 240 min (4 hours) Appointment Date:12/31/2024 12:30:00 PM Scheduled Provider: Location:INF Appointment Type:INF/OSP Labwork Appointment Date:12/31/2024 12:45:00 PM Scheduled Provider: Location:INF Appointment Type:INF Chemo: Infusion Pump Discontinue 15 Appointment Date:01/05/2025 10:00:00 AM Scheduled Provider:ARLENE RODRIGEZ MD Location:[facility] Appointment Type:GS OV Check Up Future Scheduled Tests Laboratory* Carcinoembryonic Antigen 12/15/24 * Complete Blood Count 12/15/24 * Complete Blood Count 12/29/24 * Complete Metabolic Panel 12/15/24 * Complete Metabolic Panel 12/29/24 * [facility] [place] Specimens) 07/30/24 Radiology* CT Thorax w/ Contrast 06/17/24 * XR Hip 3-4 Views Bilateral 08/13/24 * CT Abdomen and Pelvis w/ contrast 06/17/24 * US Renal 04/13/24 [facility] Evaluation + Plan note Future Appointments Appointment Date:12/17/2024 12:30:00 PM Scheduled Provider: Location:INF Appointment Type:INF/OSP Labwork Appointment Date:12/17/2024 12:45:00 PM Scheduled Provider: Location:INF Appointment Type:INF Chemo: Infusion Pump Discontinue 15 Appointment Date:12/29/2024 08:15:00 AM Scheduled Provider: Location:INF Appointment Type:INF/OSP Labwork Appointment Date:12/29/2024 09:00:00 AM Scheduled Provider:ROSEANN LUNDBERG MD Location:[facility] Appointment Type:HEM ONC OV Follow Up w/ Active Treat Appointment Date:12/29/2024 09:30:00 AM Scheduled Provider: Location:INF Appointment Type:INF Chemo: Infusion 240 min (4 hours) Appointment Date:12/31/2024 12:30:00 PM Scheduled Provider: Location:INF Appointment Type:INF/OSP Labwork Appointment Date:12/31/2024 12:45:00 PM Scheduled Provider: Location:INF Appointment Type:INF Chemo: Infusion Pump Discontinue 15 Appointment Date:01/05/2025 10:00:00 AM Scheduled Provider:ARLENE RODRIGEZ MD Location:[facility] Appointment Type:GS OV Check Up Future Scheduled Tests Laboratory* Complete Blood Count 12/29/24 * Complete Metabolic Panel 12/29/24 * [facility] ([facility]) 07/30/24 Radiology* CT Thorax w/ Contrast 06/17/24 * XR Hip 3-4 Views Bilateral 08/13/24 * CT Abdomen and Pelvis w/ contrast 06/17/24 * US Renal 04/13/24 [facility] Evaluation + Plan note Future Appointments Appointment Date:12/29/2024 08:15:00 AM Scheduled Provider: Location:INF Appointment Type:INF/OSP Labwork Appointment Date:12/29/2024 09:00:00 AM Scheduled Provider:ROSEANN LUNDBERG MD Location:[facility] Appointment Type:HEM ONC OV Follow Up w/ Active Treat Appointment Date:12/29/2024 09:30:00 AM Scheduled Provider: Location:INF Appointment Type:INF Chemo: Infusion 240 min (4 hours) Appointment Date:12/31/2024 12:30:00 PM Scheduled Provider: Location:INF Appointment Type:INF/OSP Labwork Appointment Date:12/31/2024 12:45:00 PM Scheduled Provider: Location:INF Appointment Type:INF Chemo: Infusion Pump Discontinue 15 Appointment Date:01/01/2025 08:45:00 AM Scheduled Provider: Location:INF Appointment Type:INF Chemo: Infusion Injection 15 min Appointment Date:01/05/2025 10:00:00 AM Scheduled Provider:ARLENE RODRIGEZ MD Location:[facility] Appointment Type:GS OV Check Up Future Scheduled Tests Laboratory* Complete Blood Count 12/29/24 * Complete Metabolic Panel 12/29/24 * [facility] Lab Send Out (Non-Blood Specimens) 07/30/24 Radiology* CT Thorax w/ Contrast 06/17/24 * XR Hip 3-4 Views Bilateral 08/13/24 * CT Abdomen and Pelvis w/ contrast 06/17/24 * US Renal 04/13/24 [facility] Evaluation + Plan note Future Appointments Appointment Date:12/31/2024 12:30:00 PM Scheduled Provider: Location:INF Appointment Type:INF/OSP Labwork Appointment Date:12/31/2024 12:45:00 PM Scheduled Provider: Location:INF Appointment Type:INF Chemo: Infusion Pump Discontinue 15 Appointment Date:01/01/2025 08:45:00 AM Scheduled Provider: Location:INF Appointment Type:INF Chemo: Infusion Injection 15 min Appointment Date:01/05/2025 10:00:00 AM Scheduled Provider:ARLENE RODRIGEZ MD Location:[facility] Appointment Type:GS OV Check Up Appointment Date:01/07/2025 11:00:00 AM Scheduled Provider: Location:[facility] Appointment Type:yyCT Abdomen and Pelvis w/ Contrast 3 Appointment Date:01/07/2025 11:15:00 AM Scheduled Provider: Location:[facility] Appointment Type:yyCT Chest w/ Contrast 3 Appointment Date:01/08/2025 09:00:00 AM Scheduled Provider: Location:IR Appointment Type:IR Port Check W/Guide Appointment Date:01/12/2025 09:15:00 AM Scheduled Provider: Location:INF Appointment Type:INF/OSP Labwork Appointment Date:01/12/2025 10:00:00 AM Scheduled Provider:ROSEANN LUNDBERG MD Location:[facility] Appointment Type:[facility] OV Follow Up w/ Active Treatme Appointment Date:01/12/2025 10:30:00 AM Scheduled Provider: Location:INF Appointment Type:INF Chemo: Infusion 240 min (4 hours) Appointment Date:01/14/2025 01:00:00 PM Scheduled Provider: Location:INF Appointment Type:INF/OSP Labwork Appointment Date:01/14/2025 01:15:00 PM Scheduled Provider: Location:INF Appointment Type:INF Chemo: Infusion Pump Discontinue 15 Future Scheduled Tests Laboratory* Carcinoembryonic Antigen 01/12/25 * Complete Blood Count 01/12/25 * Complete Metabolic Panel 01/12/25 * [facility] Specim[place] 07/30/24 Radiology* CT Thorax w/ Contrast 06/17/24 * CT Thorax w/ Contrast 01/07/25 * XR Hip 3-4 Views Bilateral 08/13/24 * CT Abdomen and Pelvis w/ contrast 06/17/24 * CT Abdomen and Pelvis w/ contrast 01/07/25 * IR Port Check W/Guide 01/08/25 * US Renal 04/13/24 [facility] Evaluation + Plan note Future Appointments Appointment Date:01/01/2025 08:45:00 AM Scheduled Provider: Location:INF Appointment Type:INF Chemo: Infusion Injection 15 min Appointment Date:01/05/2025 10:00:00 AM Scheduled Provider:ARLENE RODRIGEZ MD Location:[facility] Appointment Type:GS OV Check Up Appointment Date:01/07/2025 11:00:00 AM Scheduled Provider: Location:[facility] Appointment Type:yyCT Abdomen and Pelvis w/ Contrast 3 Appointment Date:01/07/2025 11:15:00 AM Scheduled Provider: Location:[facility] Appointment Type:yyCT Chest w/ Contrast 3 Appointment Date:01/08/2025 09:00:00 AM Scheduled Provider: Location:IR Appointment Type:IR Port Check W/Guide Appointment Date:01/12/2025 09:15:00 AM Scheduled Provider: Location:INF Appointment Type:INF/OSP Labwork Appointment Date:01/12/2025 10:00:00 AM Scheduled Provider:ROSEANN LUNDBERG MD Location:[facility] Appointment Type:[facility] OV Follow Up w/ Active Treatme Appointment Date:01/12/2025 10:30:00 AM Scheduled Provider: Location:INF Appointment Type:INF Chemo: Infusion 240 min (4 hours) Appointment Date:01/14/2025 01:00:00 PM Scheduled Provider: Location:INF Appointment Type:INF/OSP Labwork Appointment Date:01/14/2025 01:15:00 PM Scheduled Provider: Location:INF Appointment Type:INF Chemo: Infusion Pump Discontinue 15 Future Scheduled Tests Laboratory* Carcinoembryonic Antigen 01/12/25 * Complete Blood Count 01/12/25 * Complete Metabolic Panel 01/12/25 * [facility] Lab Send Out (Non-Blood Specimens) 07/30/24 Radiology* CT Thorax w/ Contrast 06/17/24 * CT Thorax w/ Contrast 01/07/25 * XR Hip 3-4 Views Bilateral 08/13/24 * CT Abdomen and Pelvis w/ contrast 06/17/24 * CT Abdomen and Pelvis w/ contrast 01/07/25 * IR Port Check W/Guide 01/08/25 * US Renal 04/13/24 [facility] Evaluation + Plan note Future Appointments Appointment Date:01/05/2025 10:00:00 AM Scheduled Provider:ARLENE RODRIGEZ MD Location:[facility] Appointment Type:GS OV Check Up Appointment Date:01/07/2025 11:00:00 AM Scheduled Provider: Location:[facility] Appointment Type:yyCT Abdomen and Pelvis w/ Contrast 3 Appointment Date:01/07/2025 11:15:00 AM Scheduled Provider: Location:[facility] Appointment Type:yyCT Chest w/ Contrast 3 Appointment Date:01/08/2025 09:00:00 AM Scheduled Provider: Location:IR Appointment Type:IR Port Check W/Guide Appointment Date:01/12/2025 09:15:00 AM Scheduled Provider: Location:INF Appointment Type:INF/OSP Labwork Appointment Date:01/12/2025 10:00:00 AM Scheduled Provider:ROSEANN LUNDBERG MD Location:[facility] Appointment Type:[facility] ONC OV Follow Up w/ Active Treatme Appointment Date:01/12/2025 10:30:00 AM Scheduled Provider: Location:INF Appointment Type:INF Chemo: Infusion 240 min (4 hours) Appointment Date:01/14/2025 01:00:00 PM Scheduled Provider: Location:INF Appointment Type:INF/OSP Labwork Appointment Date:01/14/2025 01:15:00 PM Scheduled Provider: Location:INF Appointment Type:INF Chemo: Infusion Pump Discontinue 15 Future Scheduled Tests Laboratory* Carcinoembryonic Antigen 01/12/25 * Complete Blood Count 01/12/25 * Complete Metabolic Panel 01/12/25 * [facility] Lab Send Out (Non-Blood Specimens) 07/30/24 Radiology* CT Thorax w/ Contrast 06/17/24 * CT Thorax w/ Contrast 01/07/25 * XR Hip 3-4 Views Bilateral 08/13/24 * CT Abdomen and Pelvis w/ contrast 06/17/24 * CT Abdomen and Pelvis w/ contrast 01/07/25 * IR Port Check W/Guide 01/08/25 * US Renal 04/13/24 [facility] Evaluation + Plan note Future Appointments Appointment Date:01/07/2025 11:00:00 AM Scheduled Provider: Location:[facility] Appointment Type:yyCT Abdomen and Pelvis w/ Contrast 3 Appointment Date:01/07/2025 11:15:00 AM Scheduled Provider: Location:[facility] Appointment Type:yyCT Chest w/ Contrast 3 Appointment Date:01/08/2025 09:00:00 AM Scheduled Provider: Location:IR Appointment Type:IR Port Check W/Guide Appointment Date:01/12/2025 09:15:00 AM Scheduled Provider: Location:INF Appointment Type:INF/OSP Labwork Appointment Date:01/12/2025 10:00:00 AM Scheduled Provider:ROSEANN LUNDBERG MD Location:[facility] Appointment Type:[facility]C OV Follow Up w/ Active Treatme Appointment Date:01/12/2025 10:30:00 AM Scheduled Provider: Location:INF Appointment Type:INF Chemo: Infusion 240 min (4 hours) Appointment Date:01/14/2025 01:00:00 PM Scheduled Provider: Location:INF Appointment Type:INF/OSP Labwork Appointment Date:01/14/2025 01:15:00 PM Scheduled Provider: Location:INF Appointment Type:INF Chemo: Infusion Pump Discontinue 15 Appointment Date:02/02/2025 10:00:00 AM Scheduled Provider:ARLENE RODRIGEZ MD Location:[facility] Appointment Type:GS OV Check Up Future Scheduled Tests Laboratory* Carcinoembryonic Antigen 01/12/25 * Complete Blood Count 01/12/25 * Complete Metabolic Panel 01/12/25 * [facility] Lab Send Out (Non-Blood Specimens) 07/30/24 Radiology* CT Thorax w/ Contrast 06/17/24 * CT Thorax w/ Contrast 01/07/25 * XR Hip 3-4 Views Bilateral 08/13/24 * CT Abdomen and Pelvis w/ contrast 06/17/24 * CT Abdomen and Pelvis w/ contrast 01/07/25 * IR Port Check W/Guide 01/08/25 * US Renal 04/13/24 [facility] Evaluation + Plan note Future Appointments Appointment Date:01/08/2025 09:00:00 AM Scheduled Provider: Location:IR Appointment Type:IR Port Check W/Guide Appointment Date:01/12/2025 09:15:00 AM Scheduled Provider: Location:INF Appointment Type:INF/OSP Labwork Appointment Date:01/12/2025 10:00:00 AM Scheduled Provider:ROSEANN LUNDBERG MD Location:[facility] Appointment Type:HEM ONC OV Follow Up w/ Active Treatme Appointment Date:01/12/2025 10:30:00 AM Scheduled Provider: Location:INF Appointment Type:INF Chemo: Infusion 240 min (4 hours) Appointment Date:01/14/2025 01:00:00 PM Scheduled Provider: Location:INF Appointment Type:INF/OSP Labwork Appointment Date:01/14/2025 01:15:00 PM Scheduled Provider: Location:INF Appointment Type:INF Chemo: Infusion Pump Discontinue 15 Appointment Date:02/02/2025 10:00:00 AM Scheduled Provider:ARLENE RODRIGEZ MD Location:[facility] Appointment Type:GS OV Check Up Future Scheduled Tests Laboratory* Carcinoembryonic Antigen 01/12/25 * Complete Blood Count 01/12/25 * Complete Metabolic Panel 01/12/25 * [facility] [place] 07/30/24 Radiology* CT Thorax w/ Contrast 06/17/24 * XR Hip 3-4 Views Bilateral 08/13/24 * CT Abdomen and Pelvis w/ contrast 06/17/24 * IR Port Check W/Guide 01/08/25 * US Renal 04/13/24 [facility] Evaluation + Plan note Future Appointments Appointment Date:01/14/2025 01:00:00 PM Scheduled Provider: Location:INF Appointment Type:INF/OSP Labwork Appointment Date:01/14/2025 01:15:00 PM Scheduled Provider: Location:INF Appointment Type:INF Chemo: Infusion Pump Discontinue 15 Appointment Date:01/26/2025 08:45:00 AM Scheduled Provider: Location:INF Appointment Type:INF/OSP Labwork Appointment Date:01/26/2025 09:00:00 AM Scheduled Provider: Location:INF Appointment Type:INF Chemo: Infusion 240 min (4 hours) Appointment Date:01/28/2025 08:45:00 AM Scheduled Provider: Location:INF Appointment Type:INF/OSP Labwork Appointment Date:01/28/2025 09:00:00 AM Scheduled Provider: Location:INF Appointment Type:INF Chemo: Infusion Pump Discontinue 15 Appointment Date:02/02/2025 10:00:00 AM Scheduled Provider:ARLENE RODRIGEZ MD Location:[facility] Appointment Type:GS OV Check Up Appointment Date:02/09/2025 08:45:00 AM Scheduled Provider: Location:INF Appointment Type:INF/OSP Labwork Appointment Date:02/09/2025 09:30:00 AM Scheduled Provider:FRANCES MCKEON Location:[facility] Appointment Type:HEM ONC OV Follow Up w/FLEXO OPERATOR Active Treat Appointment Date:02/09/2025 10:00:00 AM Scheduled Provider: Location:INF Appointment Type:INF Chemo: Infusion 240 min (4 hours) Appointment Date:02/11/2025 08:45:00 AM Scheduled Provider: Location:INF Appointment Type:INF/OSP Labwork Appointment Date:02/11/2025 09:00:00 AM Scheduled Provider: Location:INF Appointment Type:INF Chemo: Infusion Pump Discontinue 15 Appointment Date:02/23/2025 08:45:00 AM Scheduled Provider: Location:INF Appointment Type:INF/OSP Labwork Appointment Date:02/23/2025 09:00:00 AM Scheduled Provider: Location:INF Appointment Type:INF Chemo: Infusion 240 min (4 hours) Appointment Date:02/25/2025 08:45:00 AM Scheduled Provider: Location:INF Appointment Type:INF/OSP Labwork Appointment Date:02/25/2025 09:00:00 AM Scheduled Provider: Location:INF Appointment Type:INF Chemo: Infusion Pump Discontinue 15 Appointment Date:03/09/2025 08:45:00 AM Scheduled Provider: Location:INF Appointment Type:INF/OSP Labwork Appointment Date:03/09/2025 09:30:00 AM Scheduled Provider:FRANCES MCKEON Location:[facility] Appointment Type:HEM ONC OV Follow Up w/FLEXO OPERATOR Active Treat Appointment Date:03/09/2025 10:00:00 AM Scheduled Provider: Location:INF Appointment Type:INF Chemo: Infusion 240 min (4 hours) Appointment Date:03/11/2025 08:45:00 AM Scheduled Provider: Location:INF Appointment Type:INF/OSP Labwork Appointment Date:03/11/2025 09:00:00 AM Scheduled Provider: Location:INF Appointment Type:INF Chemo: Infusion Pump Discontinue 15 Appointment Date:04/01/2025 08:30:00 AM Scheduled Provider: Location:[facility] Appointment Type:CT Abd/Pelvis w/ IV Contrast Only Appointment Date:04/01/2025 09:30:00 AM Scheduled Provider: Location:[facility] Appointment Type:CT Chest w/ Contrast Appointment Date:04/06/2025 09:30:00 AM Scheduled Provider:ROSEANN LUNDBERG MD Location:[facility] Appointment Type:HEM ONC OV Follow Up w/ Active Treatme Future Scheduled Tests Laboratory* Carcinoembryonic Antigen 04/06/25 * Complete Blood Count 01/26/25 * Complete Blood Count 02/09/25 * Complete Blood Count 02/23/25 * Complete Blood Count 03/09/25 * Complete Metabolic Panel 01/26/25 * Complete Metabolic Panel 02/09/25 * Complete Metabolic Panel 02/23/25 * Complete Metabolic Panel 03/09/25 * [facility] [place] Specim[place] 07/30/24 Radiology* CT Thorax w/ Contrast 06/17/24 * CT Thorax w/ Contrast 04/01/25 * CT Abd/Pelvis w/ IV Contrast Only 04/01/25 * XR Hip 3-4 Views Bilateral 08/13/24 * CT Abdomen and Pelvis w/ contrast 06/17/24 * US Renal 04/13/24 [facility] Evaluation + Plan note Future Appointments Appointment Date:01/26/2025 08:45:00 AM Scheduled Provider: Location:INF Appointment Type:INF/OSP Labwork Appointment Date:01/26/2025 09:00:00 AM Scheduled Provider: Location:INF Appointment Type:INF Chemo: Infusion 240 min (4 hours) Appointment Date:01/28/2025 08:45:00 AM Scheduled Provider: Location:INF Appointment Type:INF/OSP Labwork Appointment Date:01/28/2025 09:00:00 AM Scheduled Provider: Location:INF Appointment Type:INF Chemo: Infusion Pump Discontinue 15 Appointment Date:02/02/2025 10:00:00 AM Scheduled Provider:ARLENE RODRIGEZ MD Location:[facility] Appointment Type:GS OV Check Up Appointment Date:02/09/2025 08:45:00 AM Scheduled Provider: Location:INF Appointment Type:INF/OSP Labwork Appointment Date:02/09/2025 09:30:00 AM Scheduled Provider:FRANCES MCKEON Location:[facility] Appointment Type:HEM ONC OV Follow Up w/FLEXO OPERATOR Active Treat Appointment Date:02/09/2025 10:00:00 AM Scheduled Provider: Location:INF Appointment Type:INF Chemo: Infusion 240 min (4 hours) Appointment Date:02/11/2025 08:45:00 AM Scheduled Provider: Location:INF Appointment Type:INF/OSP Labwork Appointment Date:02/11/2025 09:00:00 AM Scheduled Provider: Location:INF Appointment Type:INF Chemo: Infusion Pump Discontinue 15 Appointment Date:02/23/2025 08:45:00 AM Scheduled Provider: Location:INF Appointment Type:INF/OSP Labwork Appointment Date:02/23/2025 09:00:00 AM Scheduled Provider: Location:INF Appointment Type:INF Chemo: Infusion 240 min (4 hours) Appointment Date:02/25/2025 08:45:00 AM Scheduled Provider: Location:INF Appointment Type:INF/OSP Labwork Appointment Date:02/25/2025 09:00:00 AM Scheduled Provider: Location:INF Appointment Type:INF Chemo: Infusion Pump Discontinue 15 Appointment Date:03/09/2025 08:45:00 AM Scheduled Provider: Location:INF Appointment Type:INF/OSP Labwork Appointment Date:03/09/2025 09:30:00 AM Scheduled Provider:FRANCES MCKEON Location:[facility] Appointment Type:HEM ONC OV Follow Up w/FLEXO OPERATOR Active Treat Appointment Date:03/09/2025 10:00:00 AM Scheduled Provider: Location:INF Appointment Type:INF Chemo: Infusion 240 min (4 hours) Appointment Date:03/11/2025 08:45:00 AM Scheduled Provider: Location:INF Appointment Type:INF/OSP Labwork Appointment Date:03/11/2025 09:00:00 AM Scheduled Provider: Location:INF Appointment Type:INF Chemo: Infusion Pump Discontinue 15 Appointment Date:04/01/2025 08:30:00 AM Scheduled Provider: Location:[facility] Appointment Type:CT Abd/Pelvis w/ IV Contrast Only Appointment Date:04/01/2025 09:30:00 AM Scheduled Provider: Location:[facility] Appointment Type:CT Chest w/ Contrast Appointment Date:04/06/2025 09:30:00 AM Scheduled Provider:ROSEANN LUNDBERG MD Location:[facility] Appointment Type:[facility]M ONC OV Follow Up w/ Active Treatme Future Scheduled Tests Laboratory* Carcinoembryonic Antigen 04/06/25 * Complete Blood Count 01/26/25 * Complete Blood Count 02/09/25 * Complete Blood Count 02/23/25 * Complete Blood Count 03/09/25 * Complete Metabolic Panel 01/26/25 * Complete Metabolic Panel 02/09/25 * Complete Metabolic Panel 02/23/25 * Complete Metabolic Panel 03/09/25 * [facility] [place] Spec[place] 07/[place]/24 Radiology* CT Thorax w/ Contrast 06/17/24 * CT Thorax w/ Contrast 04/01/25 * CT Abd/Pelvis w/ IV Contrast Only 04/01/25 * XR Hip 3-4 Views Bilateral 08/13/24 * CT Abdomen and Pelvis w/ contrast 06/17/24 * US Renal 04/13/24 [facility] Evaluation + Plan note Future Appointments Appointment Date:01/28/2025 08:45:00 AM Scheduled Provider: Location:INF Appointment Type:INF/OSP Labwork Appointment Date:01/28/2025 09:00:00 AM Scheduled Provider: Location:INF Appointment Type:INF Chemo: Infusion Pump Discontinue 15 Appointment Date:02/02/2025 10:00:00 AM Scheduled Provider:ARLENE RODRIGEZ MD Location:[facility] Appointment Type:GS OV Check Up Appointment Date:02/09/2025 08:45:00 AM Scheduled Provider: Location:INF Appointment Type:INF/OSP Labwork Appointment Date:02/09/2025 09:30:00 AM Scheduled Provider:FRANCES MCKEON Location:[facility] Appointment Type:HEM ONC OV Follow Up w/FLEXO OPERATOR Active Treat Appointment Date:02/09/2025 10:00:00 AM Scheduled Provider: Location:INF Appointment Type:INF Chemo: Infusion 240 min (4 hours) Appointment Date:02/11/2025 08:45:00 AM Scheduled Provider: Location:INF Appointment Type:INF/OSP Labwork Appointment Date:02/11/2025 09:00:00 AM Scheduled Provider: Location:INF Appointment Type:INF Chemo: Infusion Pump Discontinue 15 Appointment Date:02/23/2025 08:45:00 AM Scheduled Provider: Location:INF Appointment Type:INF/OSP Labwork Appointment Date:02/23/2025 09:00:00 AM Scheduled Provider: Location:INF Appointment Type:INF Chemo: Infusion 240 min (4 hours) Appointment Date:02/25/2025 08:45:00 AM Scheduled Provider: Location:INF Appointment Type:INF/OSP Labwork Appointment Date:02/25/2025 09:00:00 AM Scheduled Provider: Location:INF Appointment Type:INF Chemo: Infusion Pump Discontinue 15 Appointment Date:03/09/2025 08:45:00 AM Scheduled Provider: Location:INF Appointment Type:INF/OSP Labwork Appointment Date:03/09/2025 09:30:00 AM Scheduled Provider:FRANCES MCKEON Location:[facility] Appointment Type:HEM ONC OV Follow Up w/FLEXO OPERATOR Active Treat Appointment Date:03/09/2025 10:00:00 AM Scheduled Provider: Location:INF Appointment Type:INF Chemo: Infusion 240 min (4 hours) Appointment Date:03/11/2025 08:45:00 AM Scheduled Provider: Location:INF Appointment Type:INF/OSP Labwork Appointment Date:03/11/2025 09:00:00 AM Scheduled Provider: Location:INF Appointment Type:INF Chemo: Infusion Pump Discontinue 15 Appointment Date:04/01/2025 08:30:00 AM Scheduled Provider: Location:[facility] Appointment Type:CT Abd/Pelvis w/ IV Contrast Only Appointment Date:04/01/2025 09:30:00 AM Scheduled Provider: Location:[facility] Appointment Type:CT Chest w/ Contrast Appointment Date:04/06/2025 09:30:00 AM Scheduled Provider:ROSEANN LUNDBERG MD Location:[facility] Appointment Type:HEM ONC OV Follow Up w/ Active Treatme Future Scheduled Tests Laboratory* Carcinoembryonic Antigen 04/06/25 * Complete Blood Count 02/09/25 * Complete Blood Count 02/23/25 * Complete Blood Count 03/09/25 * Complete Metabolic Panel 02/09/25 * Complete Metabolic Panel 02/23/25 * Complete Metabolic Panel 03/09/25 * [facility] Lab Send Out (Non-Blood Specimens) 07/30/24 Radiology* CT Thorax w/ Contrast 06/17/24 * CT Thorax w/ Contrast 04/01/25 * CT Abd/Pelvis w/ IV Contrast Only 04/01/25 * XR Hip 3-4 Views Bilateral 08/13/24 * CT Abdomen and Pelvis w/ contrast 06/17/24 * US Renal 04/13/24 [facility] Evaluation + Plan note Future Appointments Appointment Date:02/02/2025 10:00:00 AM Scheduled Provider:ARLENE RODRIGEZ MD Location:[facility] Appointment Type:GS OV Check Up Appointment Date:02/09/2025 08:45:00 AM Scheduled Provider: Location:INF Appointment Type:INF/OSP Labwork Appointment Date:02/09/2025 09:30:00 AM Scheduled Provider:FRANCES MCKEON APRN-SVP [employer] Location:[facility] Appointment Type:HEM ONC OV Follow Up w/FLEXO OPERATOR Active Treat Appointment Date:02/09/2025 10:00:00 AM Scheduled Provider: Location:INF Appointment Type:INF Chemo: Infusion 240 min (4 hours) Appointment Date:02/11/2025 08:45:00 AM Scheduled Provider: Location:INF Appointment Type:INF/OSP Labwork Appointment Date:02/11/2025 09:00:00 AM Scheduled Provider: Location:INF Appointment Type:INF Chemo: Infusion Pump Discontinue 15 Appointment Date:02/23/2025 08:45:00 AM Scheduled Provider: Location:INF Appointment Type:INF/OSP Labwork Appointment Date:02/23/2025 09:00:00 AM Scheduled Provider: Location:INF Appointment Type:INF Chemo: Infusion 240 min (4 hours) Appointment Date:02/25/2025 08:45:00 AM Scheduled Provider: Location:INF Appointment Type:INF/OSP Labwork Appointment Date:02/25/2025 09:00:00 AM Scheduled Provider: Location:INF Appointment Type:INF Chemo: Infusion Pump Discontinue 15 Appointment Date:03/09/2025 08:45:00 AM Scheduled Provider: Location:INF Appointment Type:INF/OSP Labwork Appointment Date:03/09/2025 09:30:00 AM Scheduled Provider:FRANCES MCKEON Location:[facility] Appointment Type:HEM ONC OV Follow Up w/FLEXO OPERATOR Active Treat Appointment Date:03/09/2025 10:00:00 AM Scheduled Provider: Location:INF Appointment Type:INF Chemo: Infusion 240 min (4 hours) Appointment Date:03/11/2025 08:45:00 AM Scheduled Provider: Location:INF Appointment Type:INF/OSP Labwork Appointment Date:03/11/2025 09:00:00 AM Scheduled Provider: Location:INF Appointment Type:INF Chemo: Infusion Pump Discontinue 15 Appointment Date:04/01/2025 08:30:00 AM Scheduled Provider: Location:[facility] Appointment Type:CT Abd/Pelvis w/ IV Contrast Only Appointment Date:04/01/2025 09:30:00 AM Scheduled Provider: Location:[facility] Appointment Type:CT Chest w/ Contrast Appointment Date:04/06/2025 09:30:00 AM Scheduled Provider:ROSEANN LUNDBERG MD Location:[facility] Appointment Type:HEM ONC OV Follow Up w/ Active Treatme Future Scheduled Tests Laboratory* Carcinoembryonic Antigen 04/06/25 * Complete Blood Count 02/09/25 * Complete Blood Count 02/23/25 * Complete Blood Count 03/09/25 * Complete Metabolic Panel 02/09/25 * Complete Metabolic Panel 02/23/25 * Complete Metabolic Panel 03/09/25 * [facility] [place] Specim[place] 07/30/24 Radiology* CT Thorax w/ Contrast 06/17/24 * CT Thorax w/ Contrast 04/01/25 * CT Abd/Pelvis w/ IV Contrast Only 04/01/25 * XR Hip 3-4 Views Bilateral 08/13/24 * CT Abdomen and Pelvis w/ contrast 06/17/24 * US Renal 04/13/24 [facility] Evaluation + Plan note Future Appointments Appointment Date:02/09/2025 08:45:00 AM Scheduled Provider: Location:INF Appointment Type:INF/OSP Labwork Appointment Date:02/09/2025 09:30:00 AM Scheduled Provider:FRANCES MCKEON Location:[facility] Appointment Type:HEM ONC OV Follow Up w/PATRIZIA Active Treatm Appointment Date:02/09/2025 10:00:00 AM Scheduled Provider: Location:INF Appointment Type:INF Chemo: Infusion 240 min (4 hours) Appointment Date:02/11/2025 08:45:00 AM Scheduled Provider: Location:INF Appointment Type:INF/OSP Labwork Appointment Date:02/11/2025 09:00:00 AM Scheduled Provider: Location:INF Appointment Type:INF Chemo: Infusion Pump Discontinue 15 Appointment Date:02/23/2025 08:45:00 AM Scheduled Provider: Location:INF Appointment Type:INF/OSP Labwork Appointment Date:02/23/2025 09:00:00 AM Scheduled Provider: Location:INF Appointment Type:INF Chemo: Infusion 240 min (4 hours) Appointment Date:02/25/2025 08:45:00 AM Scheduled Provider: Location:INF Appointment Type:INF/OSP Labwork Appointment Date:02/25/2025 09:00:00 AM Scheduled Provider: Location:INF Appointment Type:INF Chemo: Infusion Pump Discontinue 15 Appointment Date:03/09/2025 08:45:00 AM Scheduled Provider: Location:INF Appointment Type:INF/OSP Labwork Appointment Date:03/09/2025 09:30:00 AM Scheduled Provider:FRANCES MCKEON Location:[facility] Appointment Type:HEM ONC OV Follow Up w/PATRIZIA Active Treatm Appointment Date:03/09/2025 10:00:00 AM Scheduled Provider: Location:INF Appointment Type:INF Chemo: Infusion 240 min (4 hours) Appointment Date:03/11/2025 08:45:00 AM Scheduled Provider: Location:INF Appointment Type:INF/OSP Labwork Appointment Date:03/11/2025 09:00:00 AM Scheduled Provider: Location:INF Appointment Type:INF Chemo: Infusion Pump Discontinue 15 Appointment Date:04/01/2025 08:30:00 AM Scheduled Provider: Location:[facility] Appointment Type:CT Abd/Pelvis w/ IV Contrast Only Appointment Date:04/01/2025 09:30:00 AM Scheduled Provider: Location:[facility] Appointment Type:CT Chest w/ Contrast Appointment Date:04/06/2025 09:30:00 AM Scheduled Provider:ROSEANN LUNDBERG MD Location:[facility] Appointment Type:HEM ONC OV Follow Up w/MD Active Treatme Future Scheduled Tests Laboratory* Carcinoembryonic Antigen 04/06/25 * Complete Blood Count 02/09/25 * Complete Blood Count 02/23/25 * Complete Blood Count 03/09/25 * Complete Metabolic Panel 02/09/25 * Complete Metabolic Panel 02/23/25 * Complete Metabolic Panel 03/09/25 * [facility] 07/30/24 Radiology* CT Thorax w/ Contrast 06/17/24 * CT Thorax w/ Contrast 04/01/25 * CT Abd/Pelvis w/ IV Contrast Only 04/01/25 * XR Hip 3-4 Views Bilateral 08/13/24 * CT Abdomen and Pelvis w/ contrast 06/17/24 * US Renal 04/13/24 [facility] Evaluation + Plan note Future Appointments Appointment Date:02/11/2025 08:45:00 AM Scheduled Provider: Location:INF Appointment Type:INF/OSP Labwork Appointment Date:02/11/2025 09:00:00 AM Scheduled Provider: Location:INF Appointment Type:INF Chemo: Infusion Pump Discontinue 15 Appointment Date:02/23/2025 08:45:00 AM Scheduled Provider: Location:INF Appointment Type:INF/OSP Labwork Appointment Date:02/23/2025 09:00:00 AM Scheduled Provider: Location:INF Appointment Type:INF Chemo: Infusion 240 min (4 hours) Appointment Date:02/25/2025 08:45:00 AM Scheduled Provider: Location:INF Appointment Type:INF/OSP Labwork Appointment Date:02/25/2025 09:00:00 AM Scheduled Provider: Location:INF Appointment Type:INF Chemo: Infusion Pump Discontinue 15 Appointment Date:03/09/2025 08:45:00 AM Scheduled Provider: Location:INF Appointment Type:INF/OSP Labwork Appointment Date:03/09/2025 09:30:00 AM Scheduled Provider:FRANCES MCKEON Location:[facility] Appointment Type:[facility] OV Follow Up w/PATRIZIA Active Treatm Appointment Date:03/09/2025 10:00:00 AM Scheduled Provider: Location:INF Appointment Type:INF Chemo: Infusion 240 min (4 hours) Appointment Date:03/11/2025 08:45:00 AM Scheduled Provider: Location:INF Appointment Type:INF/OSP Labwork Appointment Date:03/11/2025 09:00:00 AM Scheduled Provider: Location:INF Appointment Type:INF Chemo: Infusion Pump Discontinue 15 Appointment Date:04/01/2025 08:30:00 AM Scheduled Provider: Location:[facility] Appointment Type:CT Abd/Pelvis w/ IV Contrast Only Appointment Date:04/01/2025 08:45:00 AM Scheduled Provider: Location:[facility] Appointment Type:CT Chest w/ Contrast Appointment Date:04/06/2025 09:30:00 AM Scheduled Provider:ROSEANN LUNDBERG MD Location:[facility] Appointment Type:[facility] OV Follow Up w/MD Active Treatme Future Scheduled Tests Laboratory* Carcinoembryonic Antigen 04/06/25 * Complete Blood Count 02/23/25 * Complete Blood Count 03/09/25 * Complete Metabolic Panel 02/23/25 * Complete Metabolic Panel 03/09/25 * [facility] Specim[place] 07/30/24 Radiology* CT Thorax w/ Contrast 06/17/24 * CT Thorax w/ Contrast 04/01/25 * CT Abd/Pelvis w/ IV Contrast Only 04/01/25 * XR Hip 3-4 Views Bilateral 08/13/24 * CT Abdomen and Pelvis w/ contrast 06/17/24 * US Renal 04/13/24 [facility] Evaluation + Plan note Future Appointments Appointment Date:02/23/2025 08:45:00 AM Scheduled Provider: Location:INF Appointment Type:INF/OSP Labwork Appointment Date:02/23/2025 09:00:00 AM Scheduled Provider: Location:INF Appointment Type:INF Chemo: Infusion 240 min (4 hours) Appointment Date:02/25/2025 08:45:00 AM Scheduled Provider: Location:INF Appointment Type:INF/OSP Labwork Appointment Date:02/25/2025 09:00:00 AM Scheduled Provider: Location:INF Appointment Type:INF Chemo: Infusion Pump Discontinue 15 Appointment Date:03/09/2025 08:45:00 AM Scheduled Provider: Location:INF Appointment Type:INF/OSP Labwork Appointment Date:03/09/2025 09:30:00 AM Scheduled Provider:FRANCES MCKEON Location:[facility] Appointment Type:[facility] OV Follow Up w/PATRIZIA Active Treatm Appointment Date:03/09/2025 10:00:00 AM Scheduled Provider: Location:INF Appointment Type:INF Chemo: Infusion 240 min (4 hours) Appointment Date:03/11/2025 08:45:00 AM Scheduled Provider: Location:INF Appointment Type:INF/OSP Labwork Appointment Date:03/11/2025 09:00:00 AM Scheduled Provider: Location:INF Appointment Type:INF Chemo: Infusion Pump Discontinue 15 Appointment Date:04/01/2025 08:30:00 AM Scheduled Provider: Location:[facility] Appointment Type:CT Abd/Pelvis w/ IV Contrast Only Appointment Date:04/01/2025 08:45:00 AM Scheduled Provider: Location:[facility] Appointment Type:CT Chest w/ Contrast Appointment Date:04/06/2025 09:30:00 AM Scheduled Provider:ROSEANN LUNDBERG MD Location:[facility] Appointment Type:[facility] ON[facility] OV Follow Up w/MD Active Treatme Future Scheduled Tests Laboratory* Carcinoembryonic Antigen 04/06/25 * Complete Blood Count 02/23/25 * Complete Blood Count 03/09/25 * Complete Metabolic Panel 02/23/25 * Complete Metabolic Panel 03/09/25 * [facility] [place] 07/30/24 Radiology* CT Thorax w/ Contrast 06/17/24 * CT Thorax w/ Contrast 04/01/25 * CT Abd/Pelvis w/ IV Contrast Only 04/01/25 * XR Hip 3-4 Views Bilateral 08/13/24 * CT Abdomen and Pelvis w/ contrast 06/17/24 * US Renal 04/13/24 [facility] Evaluation + Plan note Future Appointments Appointment Date:02/25/2025 08:45:00 AM Scheduled Provider: Location:INF Appointment Type:INF/OSP Labwork Appointment Date:02/25/2025 09:00:00 AM Scheduled Provider: Location:INF Appointment Type:INF Chemo: Infusion Pump Discontinue 15 Appointment Date:03/09/2025 08:45:00 AM Scheduled Provider: Location:INF Appointment Type:INF/OSP Labwork Appointment Date:03/09/2025 09:30:00 AM Scheduled Provider:FRANCES MCKEON Location:[facility] Appointment Type:[facility] OV Follow Up w/PATRIZIA Active Treatm Appointment Date:03/09/2025 10:00:00 AM Scheduled Provider: Location:INF Appointment Type:INF Chemo: Infusion 240 min (4 hours) Appointment Date:03/11/2025 08:45:00 AM Scheduled Provider: Location:INF Appointment Type:INF/OSP Labwork Appointment Date:03/11/2025 09:00:00 AM Scheduled Provider: Location:INF Appointment Type:INF Chemo: Infusion Pump Discontinue 15 Appointment Date:04/01/2025 08:30:00 AM Scheduled Provider: Location:[facility] Appointment Type:CT Abd/Pelvis w/ IV Contrast Only Appointment Date:04/01/2025 08:45:00 AM Scheduled Provider: Location:[facility] Appointment Type:CT Chest w/ Contrast Appointment Date:04/06/2025 09:30:00 AM Scheduled Provider:ROSEANN LUNDBERG MD Location:[facility] Appointment Type:[facility]M ONC OV Follow Up w/ Active Treatme Future Scheduled Tests Laboratory* Carcinoembryonic Antigen 04/06/25 * Complete Blood Count 03/09/25 * Complete Metabolic Panel 03/09/25 * [facility] Radiology* CT Thorax w/ Contrast 06/17/24 * CT Thorax w/ Contrast 04/01/25 * CT Abd/Pelvis w/ IV Contrast Only 04/01/25 * XR Hip 3-4 Views Bilateral 08/13/24 * CT Abdomen and Pelvis w/ contrast 06/17/24 * US Renal 04/13/24 [facility] Evaluation + Plan note Future Appointments Appointment Date:03/09/2025 08:45:00 AM Scheduled Provider: Location:INF Appointment Type:INF/OSP Labwork Appointment Date:03/09/2025 09:30:00 AM Scheduled Provider:FRANCES MCKEON Location:[facility] Appointment Type:[facility]M ONC OV Follow Up w/PATRIZIA Active Treatm Appointment Date:03/09/2025 10:00:00 AM Scheduled Provider: Location:INF Appointment Type:INF Chemo: Infusion 240 min (4 hours) Appointment Date:03/11/2025 08:45:00 AM Scheduled Provider: Location:INF Appointment Type:INF/OSP Labwork Appointment Date:03/11/2025 09:00:00 AM Scheduled Provider: Location:INF Appointment Type:INF Chemo: Infusion Pump Discontinue 15 Appointment Date:04/01/2025 08:30:00 AM Scheduled Provider: Location:[facility] Appointment Type:CT Abd/Pelvis w/ IV Contrast Only Appointment Date:04/01/2025 08:45:00 AM Scheduled Provider: Location:[facility] Appointment Type:CT Chest w/ Contrast Appointment Date:04/06/2025 09:30:00 AM Scheduled Provider:ROSEANN LUNDBERG MD Location:[facility] Appointment Type:[facility] ONC OV Follow Up w/MD Active Treatme Future Scheduled Tests Laboratory* Carcinoembryonic Antigen 04/06/25 * Complete Blood Count 03/09/25 * Complete Metabolic Panel 03/09/25 * [facility] [place] 07/30/24 Radiology* CT Thorax w/ Contrast 06/17/24 * CT Thorax w/ Contrast 04/01/25 * CT Abd/Pelvis w/ IV Contrast Only 04/01/25 * XR Hip 3-4 Views Bilateral 08/13/24 * CT Abdomen and Pelvis w/ contrast 06/17/24 * US Renal 04/13/24 [facility] Evaluation + Plan note Future Appointments Appointment Date:03/11/2025 11:30:00 AM Scheduled Provider: Location:INF Appointment Type:INF/OSP Labwork Appointment Date:03/11/2025 11:45:00 AM Scheduled Provider: Location:INF Appointment Type:INF Chemo: Infusion Pump Discontinue 15 Appointment Date:04/01/2025 08:30:00 AM Scheduled Provider: Location:[facility] Appointment Type:CT Abd/Pelvis w/ IV Contrast Only Appointment Date:04/01/2025 08:45:00 AM Scheduled Provider: Location:[facility] Appointment Type:CT Chest w/ Contrast Appointment Date:04/06/2025 09:30:00 AM Scheduled Provider:ROSEANN LUNDBERG MD Location:[facility] Appointment Type:[facility]M ONC OV Follow Up w/ Active Treatme Future Scheduled Tests Laboratory* Carcinoembryonic Antigen 04/06/25 * Carcinoembryonic Antigen 04/06/25 * [facility] Lab Send Out (Non-Blood Specimens) 07/30/24 Radiology* CT Thorax w/ Contrast 06/17/24 * CT Thorax w/ Contrast 04/01/25 * CT Abd/Pelvis w/ IV Contrast Only 04/01/25 * XR Hip 3-4 Views Bilateral 08/13/24 * CT Abdomen and Pelvis w/ contrast 06/17/24 * US Renal 04/13/24 [facility] evaluation + Plan note Future Appointments Appointment Date:04/01/2025 08:30:00 AM Scheduled Provider: Location:[facility] Appointment Type:CT Abd/Pelvis w/ IV Contrast Only Appointment Date:04/01/2025 08:45:00 AM Scheduled Provider: Location:[facility] Appointment Type:CT Chest w/ Contrast Appointment Date:04/06/2025 09:30:00 AM Scheduled Provider:ROSEANN LUNDBERG MD Location:[facility] Appointment Type:[facility]M ONC OV Follow Up w/ Active Treatme Future Scheduled Tests Laboratory* Carcinoembryonic Antigen 04/06/25 * Carcinoembryonic Antigen 04/06/25 * [facility] Lab Send Out (Non-Blood Specimens) 07/30/24 Radiology* CT Thorax w/ Contrast 06/17/24 * CT Thorax w/ Contrast 04/01/25 * CT Abd/Pelvis w/ IV Contrast Only 04/01/25 * XR Hip 3-4 Views Bilateral 08/13/24 * CT Abdomen and Pelvis w/ contrast 06/17/24 * US Renal 04/13/24 [facility] evaluation + Plan note Future Appointments Appointment Date:03/25/2025 12:00:00 PM Scheduled Provider: Location:INF Appointment Type:INF/OSP Labwork Appointment Date:03/25/2025 12:15:00 PM Scheduled Provider: Location:INF Appointment Type:INF Chemo: Infusion Pump Discontinue 15 Appointment Date:04/01/2025 08:30:00 AM Scheduled Provider: Location:[facility] Appointment Type:CT Abd/Pelvis w/ IV Contrast Only Appointment Date:04/01/2025 08:45:00 AM Scheduled Provider: Location:[facility] Appointment Type:CT Chest w/ Contrast Appointment Date:04/06/2025 08:45:00 AM Scheduled Provider: Location:INF Appointment Type:INF/OSP Labwork Appointment Date:04/06/2025 09:30:00 AM Scheduled Provider:ORSEANN LUNDBERG MD Location:[facility] Appointment Type:HEM ONC OV Follow Up w/ Active Treatme Appointment Date:04/06/2025 10:00:00 AM Scheduled Provider: Location:INF Appointment Type:INF Chemo: Infusion 240 min (4 hours) Appointment Date:04/08/2025 12:00:00 PM Scheduled Provider: Location:INF Appointment Type:INF/OSP Labwork Appointment Date:04/08/2025 12:15:00 PM Scheduled Provider: Location:INF Appointment Type:INF Chemo: Infusion Pump Discontinue 15 Future Scheduled Tests Laboratory* Carcinoembryonic Antigen 04/06/25 * Carcinoembryonic Antigen 04/06/25 * [facility] [place] 07/30/24 Radiology* CT Thorax w/ Contrast 06/17/24 * CT Thorax w/ Contrast 04/01/25 * CT Abd/Pelvis w/ IV Contrast Only 04/01/25 * XR Hip 3-4 Views Bilateral 08/13/24 * CT Abdomen and Pelvis w/ contrast 06/17/24 * US Renal 04/13/24 [facility] Evaluation + Plan note Future Appointments Appointment Date:04/01/2025 08:30:00 AM Scheduled Provider: Location:X[facility] Appointment Type:CT Abd/Pelvis w/ IV Contrast Only Appointment Date:04/01/2025 08:45:00 AM Scheduled Provider: Location:[facility] Appointment Type:CT Chest w/ Contrast Appointment Date:04/06/2025 08:45:00 AM Scheduled Provider: Location:INF Appointment Type:INF/OSP Labwork Appointment Date:04/06/2025 09:30:00 AM Scheduled Provider:ROSEANN LUNDBERG MD Location:[facility] Appointment Type:HEM ONC OV Follow Up w/ Active Treatme Appointment Date:04/06/2025 10:00:00 AM Scheduled Provider: Location:INF Appointment Type:INF Chemo: Infusion 240 min (4 hours) Appointment Date:04/08/2025 12:00:00 PM Scheduled Provider: Location:INF Appointment Type:INF/OSP Labwork Appointment Date:04/08/2025 12:15:00 PM Scheduled Provider: Location:INF Appointment Type:INF Chemo: Infusion Pump Discontinue 15 Future Scheduled Tests Laboratory* Carcinoembryonic Antigen 04/06/25 * Carcinoembryonic Antigen 04/06/25 * [facility] Lab Send Out (Non-Blood Specimens) 07/30/24 Radiology* CT Thorax w/ Contrast 06/17/24 * CT Thorax w/ Contrast 04/01/25 * CT Abd/Pelvis w/ IV Contrast Only 04/01/25 * XR Hip 3-4 Views Bilateral 08/13/24 * CT Abdomen and Pelvis w/ contrast 06/17/24 * US Renal 04/13/24 [facility] Evaluation + Plan note Future Appointments Appointment Date:04/01/2025 08:30:00 AM Scheduled Provider: Location:[facility] Appointment Type:CT Abd/Pelvis w/ IV Contrast Only Appointment Date:04/01/2025 08:45:00 AM Scheduled Provider: Location:[facility] Appointment Type:CT Chest w/ Contrast Appointment Date:04/06/2025 08:45:00 AM Scheduled Provider: Location:INF Appointment Type:INF/OSP Labwork Appointment Date:04/06/2025 09:30:00 AM Scheduled Provider:ROSEANN LUNDBERG MD Location:[facility] Appointment Type:HEM ONC OV Follow Up w/ Active Treatme Appointment Date:04/06/2025 10:00:00 AM Scheduled Provider: Location:INF Appointment Type:INF Chemo: Infusion 240 min (4 hours) Appointment Date:04/08/2025 12:00:00 PM Scheduled Provider: Location:INF Appointment Type:INF/OSP Labwork Appointment Date:04/08/2025 12:15:00 PM Scheduled Provider: Location:INF Appointment Type:INF Chemo: Infusion Pump Discontinue 15 Appointment Date:05/07/2025 08:30:00 AM Scheduled Provider:ARLENE RODRIGEZ MD Location:[facility] Appointment Type:GS OV Post Op Future Scheduled Tests Laboratory* Carcinoembryonic Antigen 04/06/25 * Carcinoembryonic Antigen 04/06/25 * [facility] Lab Send Out (Non-Blood Specimens) 07/30/24 Radiology* CT Thorax w/ Contrast 06/17/24 * CT Thorax w/ Contrast 04/01/25 * CT Abd/Pelvis w/ IV Contrast Only 04/01/25 * XR Hip 3-4 Views Bilateral 08/13/24 * CT Abdomen and Pelvis w/ contrast 06/17/24 * US Renal 04/13/24 [facility] Evaluation + Plan note Future Appointments Appointment Date:04/06/2025 08:45:00 AM Scheduled Provider: Location:INF Appointment Type:INF/OSP Labwork Appointment Date:04/06/2025 09:30:00 AM Scheduled Provider:ROSEANN LUNDBERG MD Location:[facility] Appointment Type:HEM ONC OV Follow Up w/ Active Treatme Appointment Date:04/06/2025 10:00:00 AM Scheduled Provider: Location:INF Appointment Type:INF Chemo: Infusion 240 min (4 hours) Appointment Date:04/08/2025 12:00:00 PM Scheduled Provider: Location:INF Appointment Type:INF/OSP Labwork Appointment Date:04/08/2025 12:15:00 PM Scheduled Provider: Location:INF Appointment Type:INF Chemo: Infusion Pump Discontinue 15 Appointment Date:05/07/2025 08:30:00 AM Scheduled Provider:ARLENE RODRIGEZ MD Location:[facility] Appointment Type:GS OV Post Op Future Scheduled Tests Laboratory* Carcinoembryonic Antigen 04/06/25 * Carcinoembryonic Antigen 04/06/25 * [facility] Lab Send Out (Non-Blood Specimens) 07/30/24 Radiology* CT Thorax w/ Contrast 06/17/24 * XR Hip 3-4 Views Bilateral 08/13/24 * CT Abdomen and Pelvis w/ contrast 06/17/24 * US Renal 04/13/24 [facility] Evaluation + Plan note Future Appointments Appointment Date:05/04/2025 07:45:00 AM Scheduled Provider: Location:INF Appointment Type:INF/OSP Labwork Appointment Date:05/04/2025 08:30:00 AM Scheduled Provider:ROSEANN LUNDBERG MD Location:[facility] Appointment Type:HEM ONC OV Follow Up w/ Active Treatme Appointment Date:05/04/2025 09:00:00 AM Scheduled Provider: Location:INF Appointment Type:INF Chemo: Infusion 240 min (4 hours) Appointment Date:05/06/2025 01:00:00 PM Scheduled Provider: Location:INF Appointment Type:INF/OSP Labwork Appointment Date:05/06/2025 01:15:00 PM Scheduled Provider: Location:INF Appointment Type:INF Chemo: Infusion Pump Discontinue 15 Appointment Date:05/07/2025 08:30:00 AM Scheduled Provider:ARLENE RODRIGEZ MD Location:[facility] Appointment Type:GS OV Post Op Appointment Date:05/18/2025 07:45:00 AM Scheduled Provider: Location:INF Appointment Type:INF/OSP Labwork Appointment Date:05/18/2025 08:30:00 AM Scheduled Provider:SHEA CLAY Location:[facility] Appointment Type:HEM ONC OV Follow Up w/PATRIZIA Active Treatm Appointment Date:05/18/2025 09:00:00 AM Scheduled Provider: Location:INF Appointment Type:INF Chemo: Infusion 240 min (4 hours) Appointment Date:05/20/2025 01:00:00 PM Scheduled Provider: Location:INF Appointment Type:INF/OSP Labwork Appointment Date:05/20/2025 01:15:00 PM Scheduled Provider: Location:INF Appointment Type:INF Chemo: Infusion Pump Discontinue 15 Appointment Date:06/01/2025 07:45:00 AM Scheduled Provider: Location:INF Appointment Type:INF/OSP Labwork Appointment Date:06/01/2025 08:30:00 AM Scheduled Provider:ROSEANN LUNDBERG MD Location:[facility] Appointment Type:HEM ONC OV Follow Up w/ Active Treatme Appointment Date:06/01/2025 09:00:00 AM Scheduled Provider: Location:INF Appointment Type:INF Chemo: Infusion 240 min (4 hours) Appointment Date:06/03/2025 01:00:00 PM Scheduled Provider: Location:INF Appointment Type:INF/OSP Labwork Appointment Date:06/03/2025 01:15:00 PM Scheduled Provider: Location:INF Appointment Type:INF Chemo: Infusion Pump Discontinue 15 Appointment Date:06/15/2025 07:45:00 AM Scheduled Provider: Location:INF Appointment Type:INF/OSP Labwork Appointment Date:06/15/2025 08:00:00 AM Scheduled Provider: Location:INF Appointment Type:INF Chemo: Infusion 240 min (4 hours) Appointment Date:06/17/2025 01:00:00 PM Scheduled Provider: Location:INF Appointment Type:INF/OSP Labwork Appointment Date:06/17/2025 01:15:00 PM Scheduled Provider: Location:INF Appointment Type:INF Chemo: Infusion Pump Discontinue 15 Appointment Date:06/29/2025 07:45:00 AM Scheduled Provider: Location:INF Appointment Type:INF/OSP Labwork Appointment Date:06/29/2025 08:30:00 AM Scheduled Provider:FRANCES MCKEON Location:[facility] Appointment Type:HEM ONC OV Follow Up w/PATRIZIA Active Treatm Appointment Date:06/29/2025 09:00:00 AM Scheduled Provider: Location:INF Appointment Type:INF Chemo: Infusion 240 min (4 hours) Appointment Date:07/01/2025 01:00:00 PM Scheduled Provider: Location:INF Appointment Type:INF/OSP Labwork Appointment Date:07/01/2025 01:15:00 PM Scheduled Provider: Location:INF Appointment Type:INF Chemo: Infusion Pump Discontinue 15 Appointment Date:07/08/2025 10:00:00 AM Scheduled Provider: Location:[facility] Appointment Type:yyCT Abdomen and Pelvis w/ Contrast 3 Appointment Date:07/08/2025 10:00:00 AM Scheduled Provider: Location:[facility] Appointment Type:CT Abd/Pelvis w/ IV Contrast Only Appointment Date:07/08/2025 10:15:00 AM Scheduled Provider: Location:[facility] Appointment Type:yyCT Chest w/ Contrast 3 Appointment Date:07/13/2025 07:45:00 AM Scheduled Provider: Location:INF Appointment Type:INF/OSP Labwork Appointment Date:07/13/2025 08:30:00 AM Scheduled Provider:ROSEANN LUNDBERG MD Location:[facility] Appointment Type:HEM ONC OV Follow Up w/ Active Treatme Appointment Date:07/13/2025 09:00:00 AM Scheduled Provider: Location:INF Appointment Type:INF Chemo: Infusion 240 min (4 hours) Appointment Date:07/15/2025 01:00:00 PM Scheduled Provider: Location:INF Appointment Type:INF/OSP Labwork Appointment Date:07/15/2025 01:15:00 PM Scheduled Provider: Location:INF Appointment Type:INF Chemo: Infusion Pump Discontinue 15 Future Scheduled Tests Laboratory* Carcinoembryonic Antigen 05/04/25 * Carcinoembryonic Antigen 07/13/25 * Carcinoembryonic Antigen 05/18/25 * Carcinoembryonic Antigen 06/01/25 * Carcinoembryonic Antigen 06/15/25 * Carcinoembryonic Antigen 06/29/25 * Complete Blood Count 05/04/25 * Complete Blood Count 07/13/25 * Complete Blood Count 05/18/25 * Complete Blood Count 06/01/25 * Complete Blood Count 06/15/25 * Complete Blood Count 06/29/25 * Complete Metabolic Panel 05/04/25 * Complete Metabolic Panel 07/13/25 * Complete Metabolic Panel 05/18/25 * Complete Metabolic Panel 06/01/25 * Complete Metabolic Panel 06/15/25 * Complete Metabolic Panel 06/29/25 * [facility] [place] Specimens) 07/30/24 Radiology* CT Thorax w/ Contrast 06/17/24 * CT Thorax w/ Contrast 07/08/25 * CT Abd/Pelvis w/ IV Contrast Only 07/08/25 * XR Hip 3-4 Views Bilateral 08/13/24 * CT Abdomen and Pelvis w/ contrast 06/17/24 * US Renal 04/13/24 [facility] Evaluation + Plan note Future Appointments Appointment Date:05/04/2025 07:45:00 AM Scheduled Provider: Location:INF Appointment Type:INF/OSP Labwork Appointment Date:05/04/2025 08:30:00 AM Scheduled Provider:ROSEANN LUNDBERG MD Location:[facility] Appointment Type:HEM ONC OV Follow Up w/ Active Treatme Appointment Date:05/04/2025 09:00:00 AM Scheduled Provider: Location:INF Appointment Type:INF Chemo: Infusion 240 min (4 hours) Appointment Date:05/06/2025 01:00:00 PM Scheduled Provider: Location:INF Appointment Type:INF/OSP Labwork Appointment Date:05/06/2025 01:15:00 PM Scheduled Provider: Location:INF Appointment Type:INF Chemo: Infusion Pump Discontinue 15 Appointment Date:05/11/2025 09:15:00 AM Scheduled Provider:ARLENE RODRIGEZ MD Location:[facility] Appointment Type:GS OV Post Op Appointment Date:05/18/2025 07:45:00 AM Scheduled Provider: Location:INF Appointment Type:INF/OSP Labwork Appointment Date:05/18/2025 08:30:00 AM Scheduled Provider:SHEA CLAY Location:[facility] Appointment Type:HEM ONC OV Follow Up w/PATRIZIA Active Treatm Appointment Date:05/18/2025 09:00:00 AM Scheduled Provider: Location:INF Appointment Type:INF Chemo: Infusion 240 min (4 hours) Appointment Date:05/20/2025 01:00:00 PM Scheduled Provider: Location:INF Appointment Type:INF/OSP Labwork Appointment Date:05/20/2025 01:15:00 PM Scheduled Provider: Location:INF Appointment Type:INF Chemo: Infusion Pump Discontinue 15 Appointment Date:06/01/2025 07:45:00 AM Scheduled Provider: Location:INF Appointment Type:INF/OSP Labwork Appointment Date:06/01/2025 08:30:00 AM Scheduled Provider:ROSEANN LUNDBERG MD Location:[facility] Appointment Type:HEM ONC OV Follow Up w/ Active Treatme Appointment Date:06/01/2025 09:00:00 AM Scheduled Provider: Location:INF Appointment Type:INF Chemo: Infusion 240 min (4 hours) Appointment Date:06/03/2025 01:00:00 PM Scheduled Provider: Location:INF Appointment Type:INF/OSP Labwork Appointment Date:06/03/2025 01:15:00 PM Scheduled Provider: Location:INF Appointment Type:INF Chemo: Infusion Pump Discontinue 15 Appointment Date:06/15/2025 07:45:00 AM Scheduled Provider: Location:INF Appointment Type:INF/OSP Labwork Appointment Date:06/15/2025 08:00:00 AM Scheduled Provider: Location:INF Appointment Type:INF Chemo: Infusion 240 min (4 hours) Appointment Date:06/17/2025 01:00:00 PM Scheduled Provider: Location:INF Appointment Type:INF/OSP Labwork Appointment Date:06/17/2025 01:15:00 PM Scheduled Provider: Location:INF Appointment Type:INF Chemo: Infusion Pump Discontinue 15 Appointment Date:06/29/2025 07:45:00 AM Scheduled Provider: Location:INF Appointment Type:INF/OSP Labwork Appointment Date:06/29/2025 08:30:00 AM Scheduled Provider:FRANCES MCKEON Location:[facility] Appointment Type:HEM ONC OV Follow Up w/PATRIZIA Active Treatm Appointment Date:06/29/2025 09:00:00 AM Scheduled Provider: Location:INF Appointment Type:INF Chemo: Infusion 240 min (4 hours) Appointment Date:07/01/2025 01:00:00 PM Scheduled Provider: Location:INF Appointment Type:INF/OSP Labwork Appointment Date:07/01/2025 01:15:00 PM Scheduled Provider: Location:INF Appointment Type:INF Chemo: Infusion Pump Discontinue 15 Appointment Date:07/08/2025 10:00:00 AM Scheduled Provider: Location:[facility] Appointment Type:yyCT Abdomen and Pelvis w/ Contrast 3 Appointment Date:07/08/2025 10:00:00 AM Scheduled Provider: Location:[facility] Appointment Type:CT Abd/Pelvis w/ IV Contrast Only Appointment Date:07/08/2025 10:15:00 AM Scheduled Provider: Location:[facility] Appointment Type:yyCT Chest w/ Contrast 3 Appointment Date:07/13/2025 07:45:00 AM Scheduled Provider: Location:INF Appointment Type:INF/OSP Labwork Appointment Date:07/13/2025 08:30:00 AM Scheduled Provider:ROSEANN LUNDBERG MD Location:[facility] Appointment Type:[facility] ONC OV Follow Up w/MD Active Treatme Appointment Date:07/13/2025 09:00:00 AM Scheduled Provider: Location:INF Appointment Type:INF Chemo: Infusion 240 min (4 hours) Appointment Date:07/15/2025 01:00:00 PM Scheduled Provider: Location:INF Appointment Type:INF/OSP Labwork Appointment Date:07/15/2025 01:15:00 PM Scheduled Provider: Location:INF Appointment Type:INF Chemo: Infusion Pump Discontinue 15 Diagnostic Tests Pending * Business Quality Assurance Analyst Culture 04/22/25 Future Scheduled Tests Laboratory* Carcinoembryonic Antigen 05/04/25 * Carcinoembryonic Antigen 07/13/25 * Carcinoembryonic Antigen 05/18/25 * Carcinoembryonic Antigen 06/01/25 * Carcinoembryonic Antigen 06/15/25 * Carcinoembryonic Antigen 06/29/25 * Complete Blood Count 05/04/25 * Complete Blood Count 07/13/25 * Complete Blood Count 05/18/25 * Complete Blood Count 06/01/25 * Complete Blood Count 06/15/25 * Complete Blood Count 06/29/25 * Complete Metabolic Panel 05/04/25 * Complete Metabolic Panel 07/13/25 * Complete Metabolic Panel 05/18/25 * Complete Metabolic Panel 06/01/25 * Complete Metabolic Panel 06/15/25 * Complete Metabolic Panel 06/29/25 * [facility] [place] Specimens) 07/30/24 Radiology* CT Thorax w/ Contrast 06/17/24 * CT Thorax w/ Contrast 07/08/25 * CT Abd/Pelvis w/ IV Contrast Only 07/08/25 * XR Hip 3-4 Views Bilateral 08/13/24 * CT Abdomen and Pelvis w/ contrast 06/17/24 [facility] Evaluation + Plan note Future Appointments Appointment Date:05/06/2025 01:00:00 PM Scheduled Provider: Location:INF Appointment Type:INF/OSP Labwork Appointment Date:05/06/2025 01:15:00 PM Scheduled Provider: Location:INF Appointment Type:INF Chemo: Infusion Pump Discontinue 15 Appointment Date:05/11/2025 09:15:00 AM Scheduled Provider:ARLENE RODRIGEZ MD Location:[facility] Appointment Type:GS OV Post Op Appointment Date:05/18/2025 07:45:00 AM Scheduled Provider: Location:INF Appointment Type:INF/OSP Labwork Appointment Date:05/18/2025 08:30:00 AM Scheduled Provider:FRANCES MCKEON APRN-SVP RESEARCH AND STRATEGIC ANALYSIS Location:[facility] Appointment Type:HEM ONC OV Follow Up w/PATRIZIA Active Treatm Appointment Date:05/18/2025 09:00:00 AM Scheduled Provider: Location:INF Appointment Type:INF Chemo: Infusion 240 min (4 hours) Appointment Date:05/20/2025 01:00:00 PM Scheduled Provider: Location:INF Appointment Type:INF/OSP Labwork Appointment Date:05/20/2025 01:15:00 PM Scheduled Provider: Location:INF Appointment Type:INF Chemo: Infusion Pump Discontinue 15 Appointment Date:05/26/2025 09:00:00 AM Scheduled Provider: Location:X[facility] Appointment Type:CT Abd/Pelvis w/ IV Contrast Only Appointment Date:05/26/2025 09:15:00 AM Scheduled Provider: Location:[facility] Appointment Type:CT Chest w/ Contrast Appointment Date:06/01/2025 07:45:00 AM Scheduled Provider: Location:INF Appointment Type:INF/OSP Labwork Appointment Date:06/01/2025 08:30:00 AM Scheduled Provider:ROSEANN LUNDBERG MD Location:[facility] Appointment Type:HEM ONC OV Follow Up w/MD Active Treatme Appointment Date:06/01/2025 09:00:00 AM Scheduled Provider: Location:INF Appointment Type:INF Chemo: Infusion 240 min (4 hours) Appointment Date:06/03/2025 01:00:00 PM Scheduled Provider: Location:INF Appointment Type:INF/OSP Labwork Appointment Date:06/03/2025 01:15:00 PM Scheduled Provider: Location:INF Appointment Type:INF Chemo: Infusion Pump Discontinue 15 Appointment Date:06/15/2025 07:45:00 AM Scheduled Provider: Location:INF Appointment Type:INF/OSP Labwork Appointment Date:06/15/2025 08:00:00 AM Scheduled Provider: Location:INF Appointment Type:INF Chemo: Infusion 240 min (4 hours) Appointment Date:06/17/2025 01:00:00 PM Scheduled Provider: Location:INF Appointment Type:INF/OSP Labwork Appointment Date:06/17/2025 01:15:00 PM Scheduled Provider: Location:INF Appointment Type:INF Chemo: Infusion Pump Discontinue 15 Appointment Date:06/29/2025 07:45:00 AM Scheduled Provider: Location:INF Appointment Type:INF/OSP Labwork Appointment Date:06/29/2025 08:30:00 AM Scheduled Provider:FRANCES MCKEON Location:[facility] Appointment Type:HEM ONC OV Follow Up w/PATRIZIA Active Treatm Appointment Date:06/29/2025 09:00:00 AM Scheduled Provider: Location:INF Appointment Type:INF Chemo: Infusion 240 min (4 hours) Appointment Date:07/01/2025 01:00:00 PM Scheduled Provider: Location:INF Appointment Type:INF/OSP Labwork Appointment Date:07/01/2025 01:15:00 PM Scheduled Provider: Location:INF Appointment Type:INF Chemo: Infusion Pump Discontinue 15 Appointment Date:07/08/2025 10:00:00 AM Scheduled Provider: Location:X[facility] Appointment Type:yyCT Abdomen and Pelvis w/ Contrast 3 Appointment Date:07/08/2025 10:00:00 AM Scheduled Provider: Location:XRAY Appointment Type:CT Abd/Pelvis w/ IV Contrast Only Appointment Date:07/08/2025 10:15:00 AM Scheduled Provider: Location:XRAY Appointment Type:yyCT Chest w/ Contrast 3 Appointment Date:07/13/2025 07:45:00 AM Scheduled Provider: Location:INF Appointment Type:INF/OSP Labwork Appointment Date:07/13/2025 08:30:00 AM Scheduled Provider:ROSEANN LUNDBERG MD Location:[facility] Appointment Type:HEM ONC OV Follow Up w/MD Active Treatme Appointment Date:07/13/2025 09:00:00 AM Scheduled Provider: Location:INF Appointment Type:INF Chemo: Infusion 240 min (4 hours) Appointment Date:07/15/2025 01:00:00 PM Scheduled Provider: Location:INF Appointment Type:INF/OSP Labwork Appointment Date:07/15/2025 01:15:00 PM Scheduled Provider: Location:INF Appointment Type:INF Chemo: Infusion Pump Discontinue 15 Future Scheduled Tests Laboratory* Carcinoembryonic Antigen 07/13/25 * Carcinoembryonic Antigen 05/18/25 * Carcinoembryonic Antigen 06/01/25 * Carcinoembryonic Antigen 06/15/25 * Carcinoembryonic Antigen 06/29/25 * Carcinoembryonic Antigen 05/18/25 * Carcinoembryonic Antigen 06/01/25 * Complete Blood Count 07/13/25 * Complete Blood Count 05/18/25 * Complete Blood Count 06/01/25 * Complete Blood Count 06/15/25 * Complete Blood Count 06/29/25 * Complete Blood Count 05/18/25 * Complete Blood Count 06/01/25 * Complete Metabolic Panel 07/13/25 * Complete Metabolic Panel 05/18/25 * Complete Metabolic Panel 06/01/25 * Complete Metabolic Panel 06/15/25 * Complete Metabolic Panel 06/29/25 * Complete Metabolic Panel 05/18/25 * Complete Metabolic Panel 06/01/25 * [facility] [place] Specimens) [place]/30/24 Radiology* CT Thorax w/ Contrast 06/17/24 * CT Thorax w/ Contrast 07/08/25 * CT Thorax w/ Contrast 05/26/25 * CT Abd/Pelvis w/ IV Contrast Only 07/08/25 * CT Abd/Pelvis w/ IV Contrast Only 05/26/25 * XR Hip 3-4 Views Bilateral 08/13/24 * CT Abdomen and Pelvis w/ contrast 06/17/24 [facility] Evaluation + Plan note Future Appointments Appointment Date:05/11/2025 09:15:00 AM Scheduled Provider:ARLENE RODRIGEZ MD Location:[facility] Appointment Type:GS OV Post Op Appointment Date:05/18/2025 07:45:00 AM Scheduled Provider: Location:INF Appointment Type:INF/OSP Labwork Appointment Date:05/18/2025 08:30:00 AM Scheduled Provider:FRANCES MCKEON Location:[facility] Appointment Type:HEM ONC OV Follow Up w/PATRIZIA Active Treatm Appointment Date:05/18/2025 09:00:00 AM Scheduled Provider: Location:INF Appointment Type:INF Chemo: Infusion 240 min (4 hours) Appointment Date:05/20/2025 01:00:00 PM Scheduled Provider: Location:INF Appointment Type:INF/OSP Labwork Appointment Date:05/20/2025 01:15:00 PM Scheduled Provider: Location:INF Appointment Type:INF Chemo: Infusion Pump Discontinue 15 Appointment Date:05/26/2025 09:00:00 AM Scheduled Provider: Location:X[facility] Appointment Type:CT Abd/Pelvis w/ IV Contrast Only Appointment Date:05/26/2025 09:15:00 AM Scheduled Provider: Location:X[facility] Appointment Type:CT Chest w/ Contrast Appointment Date:06/01/2025 07:45:00 AM Scheduled Provider: Location:INF Appointment Type:INF/OSP Labwork Appointment Date:06/01/2025 08:30:00 AM Scheduled Provider:ROSEANN LUNDBERG MD Location:[facility] Appointment Type:HEM ONC OV Follow Up w/MD Active Treatme Appointment Date:06/01/2025 09:00:00 AM Scheduled Provider: Location:INF Appointment Type:INF Chemo: Infusion 240 min (4 hours) Appointment Date:06/03/2025 01:00:00 PM Scheduled Provider: Location:INF Appointment Type:INF/OSP Labwork Appointment Date:06/03/2025 01:15:00 PM Scheduled Provider: Location:INF Appointment Type:INF Chemo: Infusion Pump Discontinue 15 Appointment Date:06/15/2025 07:45:00 AM Scheduled Provider: Location:INF Appointment Type:INF/OSP Labwork Appointment Date:06/15/2025 08:00:00 AM Scheduled Provider: Location:INF Appointment Type:INF Chemo: Infusion 240 min (4 hours) Appointment Date:06/17/2025 01:00:00 PM Scheduled Provider: Location:INF Appointment Type:INF/OSP Labwork Appointment Date:06/17/2025 01:15:00 PM Scheduled Provider: Location:INF Appointment Type:INF Chemo: Infusion Pump Discontinue 15 Appointment Date:06/29/2025 07:45:00 AM Scheduled Provider: Location:INF Appointment Type:INF/OSP Labwork Appointment Date:06/29/2025 08:30:00 AM Scheduled Provider:FRANCES MCKEON Location:[facility] Appointment Type:HEM ONC OV Follow Up w/PATRIZIA Active Treatm Appointment Date:06/29/2025 09:00:00 AM Scheduled Provider: Location:INF Appointment Type:INF Chemo: Infusion 240 min (4 hours) Appointment Date:07/01/2025 01:00:00 PM Scheduled Provider: Location:INF Appointment Type:INF/OSP Labwork Appointment Date:07/01/2025 01:15:00 PM Scheduled Provider: Location:INF Appointment Type:INF Chemo: Infusion Pump Discontinue 15 Appointment Date:07/08/2025 10:00:00 AM Scheduled Provider: Location:X[facility] Appointment Type:yyCT Abdomen and Pelvis w/ Contrast 3 Appointment Date:07/08/2025 10:00:00 AM Scheduled Provider: Location:X[facility] Appointment Type:CT Abd/Pelvis w/ IV Contrast Only Appointment Date:07/08/2025 10:15:00 AM Scheduled Provider: Location:X[facility] Appointment Type:yyCT Chest w/ Contrast 3 Appointment Date:07/13/2025 07:45:00 AM Scheduled Provider: Location:INF Appointment Type:INF/OSP Labwork Appointment Date:07/13/2025 08:30:00 AM Scheduled Provider:ROSEANN LUNDBERG MD Location:[facility] Appointment Type:HEM ONC OV Follow Up w/ Active Treatme Appointment Date:07/13/2025 09:00:00 AM Scheduled Provider: Location:INF Appointment Type:INF Chemo: Infusion 240 min (4 hours) Appointment Date:07/15/2025 01:00:00 PM Scheduled Provider: Location:INF Appointment Type:INF/OSP Labwork Appointment Date:07/15/2025 01:15:00 PM Scheduled Provider: Location:INF Appointment Type:INF Chemo: Infusion Pump Discontinue 15 Future Scheduled Tests Laboratory* Carcinoembryonic Antigen 07/13/25 * Carcinoembryonic Antigen 05/18/25 * Carcinoembryonic Antigen 06/01/25 * Carcinoembryonic Antigen 06/15/25 * Carcinoembryonic Antigen 06/29/25 * Carcinoembryonic Antigen 05/18/25 * Carcinoembryonic Antigen 06/01/25 * Complete Blood Count 07/13/25 * Complete Blood Count 05/18/25 * Complete Blood Count 06/01/25 * Complete Blood Count 06/15/25 * Complete Blood Count 06/29/25 * Complete Blood Count 05/18/25 * Complete Blood Count 06/01/25 * Complete Metabolic Panel 07/13/25 * Complete Metabolic Panel 05/18/25 * Complete Metabolic Panel 06/01/25 * Complete Metabolic Panel 06/15/25 * Complete Metabolic Panel 06/29/25 * Complete Metabolic Panel 05/18/25 * Complete Metabolic Panel 06/01/25 * [facility] [place] Specimens) 07/30/24 Radiology* CT Thorax w/ Contrast 06/17/24 * CT Thorax w/ Contrast 07/08/25 * CT Thorax w/ Contrast 05/26/25 * CT Abd/Pelvis w/ IV Contrast Only 07/08/25 * CT Abd/Pelvis w/ IV Contrast Only 05/26/25 * XR Hip 3-4 Views Bilateral 08/13/24 * CT Abdomen and Pelvis w/ contrast 06/17/24 [facility] Evaluation + Plan note Future Appointments Appointment Date:05/18/2025 07:45:00 AM Scheduled Provider: Location:INF Appointment Type:INF/OSP Labwork Appointment Date:05/18/2025 08:30:00 AM Scheduled Provider:FRANCES MCKEON Location:[facility] Appointment Type:HEM ONC OV Follow Up w/PATRIZIA Active Treatm Appointment Date:05/18/2025 09:00:00 AM Scheduled Provider: Location:INF Appointment Type:INF Chemo: Infusion 240 min (4 hours) Appointment Date:05/20/2025 01:00:00 PM Scheduled Provider: Location:INF Appointment Type:INF/OSP Labwork Appointment Date:05/20/2025 01:15:00 PM Scheduled Provider: Location:INF Appointment Type:INF Chemo: Infusion Pump Discontinue 15 Appointment Date:05/26/2025 09:00:00 AM Scheduled Provider: Location:[facility] Appointment Type:CT Abd/Pelvis w/ IV Contrast Only Appointment Date:05/26/2025 09:15:00 AM Scheduled Provider: Location:XRAY Appointment Type:CT Chest w/ Contrast Appointment Date:06/01/2025 07:45:00 AM Scheduled Provider: Location:INF Appointment Type:INF/OSP Labwork Appointment Date:06/01/2025 08:30:00 AM Scheduled Provider:ROSEANN LUNDBERG MD Location:[facility] Appointment Type:HEM ONC OV Follow Up w/MD Active Treatme Appointment Date:06/01/2025 09:00:00 AM Scheduled Provider: Location:INF Appointment Type:INF Chemo: Infusion 240 min (4 hours) Appointment Date:06/03/2025 01:00:00 PM Scheduled Provider: Location:INF Appointment Type:INF/OSP Labwork Appointment Date:06/03/2025 01:15:00 PM Scheduled Provider: Location:INF Appointment Type:INF Chemo: Infusion Pump Discontinue 15 Appointment Date:06/15/2025 07:45:00 AM Scheduled Provider: Location:INF Appointment Type:INF/OSP Labwork Appointment Date:06/15/2025 08:00:00 AM Scheduled Provider: Location:INF Appointment Type:INF Chemo: Infusion 240 min (4 hours) Appointment Date:06/17/2025 01:00:00 PM Scheduled Provider: Location:INF Appointment Type:INF/OSP Labwork Appointment Date:06/17/2025 01:15:00 PM Scheduled Provider: Location:INF Appointment Type:INF Chemo: Infusion Pump Discontinue 15 Appointment Date:06/29/2025 07:45:00 AM Scheduled Provider: Location:INF Appointment Type:INF/OSP Labwork Appointment Date:06/29/2025 08:30:00 AM Scheduled Provider:FRANCES MCKEON Location:[facility] Appointment Type:HEM ONC OV Follow Up w/PATRIZIA Active Treatm Appointment Date:06/29/2025 09:00:00 AM Scheduled Provider: Location:INF Appointment Type:INF Chemo: Infusion 240 min (4 hours) Appointment Date:07/01/2025 01:00:00 PM Scheduled Provider: Location:INF Appointment Type:INF/OSP Labwork Appointment Date:07/01/2025 01:15:00 PM Scheduled Provider: Location:INF Appointment Type:INF Chemo: Infusion Pump Discontinue 15 Appointment Date:07/08/2025 10:00:00 AM Scheduled Provider: Location:[facility] Appointment Type:yyCT Abdomen and Pelvis w/ Contrast 3 Appointment Date:07/08/2025 10:00:00 AM Scheduled Provider: Location:[facility] Appointment Type:CT Abd/Pelvis w/ IV Contrast Only Appointment Date:07/08/2025 10:15:00 AM Scheduled Provider: Location:[facility] Appointment Type:yyCT Chest w/ Contrast 3 Appointment Date:07/13/2025 07:45:00 AM Scheduled Provider: Location:INF Appointment Type:INF/OSP Labwork Appointment Date:07/13/2025 08:30:00 AM Scheduled Provider:ROSEANN LUNDBERG MD Location:[facility] Appointment Type:HEM ONC OV Follow Up w/MD Active Treatme Appointment Date:07/13/2025 09:00:00 AM Scheduled Provider: Location:INF Appointment Type:INF Chemo: Infusion 240 min (4 hours) Appointment Date:07/15/2025 01:00:00 PM Scheduled Provider: Location:INF Appointment Type:INF/OSP Labwork Appointment Date:07/15/2025 01:15:00 PM Scheduled Provider: Location:INF Appointment Type:INF Chemo: Infusion Pump Discontinue 15 Future Scheduled Tests Laboratory* Carcinoembryonic Antigen 07/13/25 * Carcinoembryonic Antigen 05/18/25 * Carcinoembryonic Antigen 06/01/25 * Carcinoembryonic Antigen 06/15/25 * Carcinoembryonic Antigen 06/29/25 * Carcinoembryonic Antigen 05/18/25 * Carcinoembryonic Antigen 06/01/25 * Complete Blood Count 07/13/25 * Complete Blood Count 05/18/25 * Complete Blood Count 06/01/25 * Complete Blood Count 06/15/25 * Complete Blood Count 06/29/25 * Complete Blood Count 05/18/25 * Complete Blood Count 06/01/25 * Complete Metabolic Panel 07/13/25 * Complete Metabolic Panel 05/18/25 * Complete Metabolic Panel 06/01/25 * Complete Metabolic Panel 06/15/25 * Complete Metabolic Panel 06/29/25 * Complete Metabolic Panel 05/18/25 * Complete Metabolic Panel 06/01/25 * [facility] [place]-Blood Specimens) 07/30/24 Radiology* CT Thorax w/ Contrast 06/17/24 * CT Thorax w/ Contrast 07/08/25 * CT Thorax w/ Contrast 05/26/25 * CT Abd/Pelvis w/ IV Contrast Only 07/08/25 * CT Abd/Pelvis w/ IV Contrast Only 05/26/25 * XR Hip 3-4 Views Bilateral 08/13/24 * CT Abdomen and Pelvis w/ contrast 06/17/24 [facility] Evaluation note* Diagnosis Colon cancer metastasized to liver (Multi) documented in this encounter [facility] Work Phone: Evaluation note* Diagnosis 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 documented in this encounter [facility] Work Phone: Evaluation note* Diagnosis Malignant neoplasm of sigmoid colon (Multi) Malignant neoplasm of sigmoid colon documented in this encounter [facility] Work Phone: Hospital course Narrative No data available for this section [facility] Hospital Discharge instructions No data available for this section [facility] Progress note No data available for this section [facility] Reason for visit Narrative* Imaging (Routine) - Authorized Specialty Diagnoses / Procedures Referred By Contac t Referred To Contact Radiology Diagnoses Colon cancer metastasized to liver (Multi) Procedures MR liver [place] [id number] [address] [facility] [place] [address] Phone: tel: fax: Referral ID Status Reason Start Date Expiration Date Visits Requested Visits Authorized [id number] Authorized Perform Procedure 07/16/2024 07/16/2025 1 1 [facility] Work Phone: Summary Purpose Family History No Family History Records Found Advance Directives No Advanced Directives Records FoundNo Advanced Directives Records FoundNo Advanced Directives Records FoundNo Advanced Directives Records FoundNo Advanced Directives Records Found Additional Source Comments Patient Care team informatio n (unrecognized section and content) Care Team Personnel Name: Ricki Silver Nurse Position: Bed Management Member Role: Other Name: Roxanna Weathers Position: Quality Review Member Role: Lap Hand Tool Name: JAMES WILCOX MD Member Role: Primary Care Physician Address: Address: [address] [place] [address] [address] Name: Liz Bass Position: Quality Review Member Role: Lap Hand Tool Care Team Personnel Name: Ricki Silver Nurse Position: Bed Management Member Role: Other Name: Roxanna Weathers Position: Quality Review Member Role: Lap Hand Tool Name: JAMES WILCOX MD Member Role: Primary Care Physician Address: Address: [address] [place] [address] [address] Name: Liz Bass Position: Quality Review Member Role: Lap Hand Tool Care Team Personnel Name: Ricki Silvre Rounding Nurse Position: Bed Management Member Role: Other Name: Roxanna Weathers Position: Quality Review Member Role: Lap Hand Tool Name: JAMES WILCOX MD Member Role: Primary Care Physician Address: Address: [address] [place] [address] [address] Name: Liz Bass Position: Quality Review Member Role: Lap Hand Tool Care Team Related Persons Name: LORNA PEGUERO Address: [address] Care Team Personnel Name: Ricki Silver Rounding Nurse Position: Bed Management Member Role: Other Name: Roxanna Weathers Position: Quality Review Member Role: Lap Hand Tool Name: JAMES WILCOX MD Member Role: Primary Care Physician Address: Address: [address] [place] [address] [address] Name: Liz Bass Position: Quality Review Member Role: Lap Hand Tool Care Team Related Persons Name: LORNA PEGUERO Address: [address] Care Team Personnel Name: Ricki Silver Roundleslye Nurse Position: Bed Management Member Role: Other Name: Roxanna Weathers Position: Quality Review Member Role: Lap Hand Tool Name: JAMES WILCOX MD Member Role: Primary Care Physician Address: Address: [address] [place] [address] [address] Name: Liz Bass Position: Quality Review Member Role: Lap Hand Tool Care Team Related Persons Name: LORNA PEGUERO Address: [address] Care Team Personnel Name: Ricki Silver Rounding Nurse Position: Bed Management Member Role: Other Name: ABDULKADIR ROSALES PA-C Member Role: Primary Care Physician Address: Address: [address] [place] [address] Name: Roxanna Weathers Position: Quality Review Member Role: Lap Hand Tool Name: Liz Bass Position: Quality Review Member Role: Lap Hand Tool Care Team Related Persons Name: LORNA PEGUERO Address: Home [address] [place] [address] [address] Care Team Personnel Name: Ricki Silver Nurse Position: Bed Management Member Role: Other Name: ABDULKADIR ROSALES PA-C Member Role: Primary Care Physician Address: Address: [address] [place] [address] Name: Roxanna Weathers Position: Quality Review Member Role: Lap Hand Tool Name: Liz Bass Position: Quality Review Member Role: Lap Hand Tool Care Team Related Persons Name: LORNA PEGUERO Address: Home [address] [place] [address] [address] [place] [address] Care Team Personnel Name: Ricki Silver Nurse Position: Bed Management Member Role: Other Name: ABDULKADIR ROSALES PA-C Member Role: Primary Care Physician Address: Address: [address] [place] [address] Name: Roxanna Weathers Position: Quality Review Member Role: Lap Hand Tool Name: Liz Bass Position: Quality Review Member Role: Lap Hand Tool Care Team Related Persons Name: LORNA PEGUERO Address: [address] [place] [address] Care Team Personnel Name: Ricki Silver Nurse Position: Bed Management Member Role: Other Name: Roxanna Weathers Position: Quality Review Member Role: Lap Hand Tool Name: JAMES WILCOX MD Member Role: Primary Care Physician Address: Address: [address] [place] [address] [address] Care Team Personnel Name: Ricki Silver Nurse Position: Bed Management Member Role: Other Name: ABDULKADIR ROSALES PA-C Member Role: Primary Care Physician Address: [address] [place] [address] Telecom: Name: Roxanna Weathers Position: Quality Review Member Role: Lap Hand Tool Name: Liz Bass Position: Quality Review Member Role: Lap Hand Tool Care Team Related Persons Name: LORNA PEGUERO Care Team Personnel Name: Ricki Silver Nurse Position: Bed Management Member Role: Other Name: ABDULKADIR ROSALES PA-C Member Role: Primary Care Physician Address: [address] Telecom: Name: Roxanna Weathers Position: Quality Review Member Role: Lap Hand Tool Name: Liz Bass Position: Quality Review Member Role: Lap Hand Tool Care Team Related Persons Name: LORNA PEGUERO Care Team Personnel Name: Ricki Silver Rounding Nurse Position: Bed Management Member Role: Other Name: ABDULKADIR ROSALES PA-C Member Role: Primary Care Physician Address: [address] Telecom: Name: Roxanna Weathers Position: Quality Review Member Role: Lap Hand Tool Name: Liz Bass Position: Quality Review Member Role: Lap Hand Tool Care Team Related Persons Name: LORNA PEGUERO Care Team Personnel Name: Ricki Silver Rounding Nurse Position: Bed Management Member Role: Other Name: ABDULKADIR ROSALES PA-C Member Role: Primary Care Physician Address: [address] [place] [address] Telecom: Name: Roxanna Weathers Position: Quality Review Member Role: Lap Hand Tool Name: Liz Bass Position: Quality Review Member Role: Lap Hand Tool Care Team Related Persons Name: LORNA PEGUERO Care Team Personnel Name: Ricki Silver Rounding Nurse Position: Bed Management Member Role: Other Name: ABDULKADIR ROSALES PA-C Member Role: Primary Care Physician Address: [address] Telecom: Name: Roxanna Weathers Position: Quality Review Member Role: Lap Hand Tool Name: Liz aBss Position: Quality Review Member Role: Lap Hand Tool Care Team Related Persons Name: LORNA PEGUERO Care Team Personnel Name: Silver, Ricki Rounding Nurse Position: Bed Management Member Role: Other Name: ABDULKADIR ROSALES PA-C Member Role: Primary Care Physician Address: [address] Telecom: Name: Roxanna Weathers Position: Quality Review Member Role: Lap Hand Tool Name: Liz Bass Position: Quality Review Member Role: Lap Hand Tool Care Team Related Persons Name: LORNA PEGUERO Care Team Personnel Name: Ricki Silver Roundleslye Nurse Position: Bed Management Member Role: Other Name: ABDULKADIR ROSALES PA-C Member Role: Primary Care Physician Address: [address] [place] [address] [address] Telecom: Name: Roxanna eWathers Position: Quality Review Member Role: Lap Hand Tool Name: Liz Bass Position: Quality Review Member Role: Lap Hand Tool Care Team Related Persons Name: LORNA PEGUERO Care Team Personnel Name: Ricki Silver Roundleslye Nurse Position: Bed Management Member Role: Other Name: ABDULAKDIR RSOALES PA-C Member Role: Primary Care Physician Address: [address] [place] [address] Telecom: Name: Roxanna Weathers Position: Quality Review Member Role: Lap Hand Tool Name: Liz Bass Position: Quality Review Member Role: Lap Hand Tool Care Team Related Persons Name: LORNA PEGUERO Care Team Personnel Name: Ricki Silver Roundleslye Nurse Position: Bed Management Member Role: Other Name: ABDULKADIR ROSALES PA-C Member Role: Primary Care Physician Address: [address] [place] [address] [address] Telecom: Name: Roxanna Weathers Position: Quality Review Member Role: Lap Hand Tool Name: Liz Bass Position: Quality Review Member Role: Lap Hand Tool Care Team Related Persons Name: LORNA PEGUERO Care Team Personnel Name: Ricki Silver Rounding Nurse Position: Bed Management Member Role: Other Name: ABDULKADIR ROSALES PA-C Member Role: Primary Care Physician Address: [address] [place] [address] [address] Telecom: Name: Roxanna Weathers Position: Quality Review Member Role: Lap Hand Tool Name: Liz Bass Position: Quality Review Member Role: Lap Hand Tool Care Team Related Persons Name: LORNA PEGUERO Care Team Personnel Name: Ricki Silver Rounding Nurse Position: Bed Management Member Role: Other Name: ABDULKADIR ROSALES PA-C Member Role: Primary Care Physician Address: [address] Telecom: Name: Roxanna Weathers Position: Quality Review Member Role: Lap Hand Tool Name: Liz Bass Position: Quality Review Member Role: Lap Hand Tool Care Team Related Persons Name: LORNA PEGUERO Care Team Personnel Name: Ricki Silver Rounding Nurse Position: Bed Management Member Role: Other Name: ABDULKADIR ROSALES PA-C Member Role: Primary Care Physician Address: [address] [place] [address] [address] Telecom: Name: Roxanna Weathers Position: Quality Review Member Role: Lap Hand Tool Name: ARLENE RODRIGEZ MD Position: P4 Physician - General Surgery Member Role: Surgeon Address: [address] [place] [address] Telecom: Name: Liz Bass Position: Quality Review Member Role: Lap Hand Tool Care Team Related Persons Name: LORNA PEGUERO Care Team Personnel Name: Ricki Silver Nurse Position: Bed Management Member Role: Other Name: ABDULKADIR ROSALES PA-C Member Role: Primary Care Physician Address: [address] [place] [address] [address] Telecom: Name: Roxanna Weathers Position: Quality Review Member Role: Lap Hand Tool Name: ARLENE RODRIGEZ MD Position: P4 Physician - General Surgery Member Role: Surgeon Address: [address] [place] [address] Telecom: Name: Liz Bass Position: Quality Review Member Role: Lap Hand Tool Care Team Related Persons Name: LORNA PEGUERO Care Team Personnel Name: Ricki Silver Roundleslye Nurse Position: Bed Management Member Role: Other Name: ABDULKADIR ROSALES PA-C Member Role: Primary Care Physician Address: [address] [place] [id number] Telecom: Name: Roxanna Weathers Position: Quality Review Member Role: Lap Hand Tool Name: ARLENE RODRIGEZ MD Position: P4 Physician - General Surgery Member Role: Surgeon Address: [address] [place] [address] Telecom: Name: Liz Bass Position: Quality Review Member Role: Lap Hand Tool Care Team Related Persons Name: LORNA PEGUERO Care Team Personnel Name: Ricki Silver Rounding Nurse Position: Bed Management Member Role: Other Name: ABDULKADIR ROSALES PA-C Member Role: Primary Care Physician Address: [address] Telecom: Name: Roxanna Weathers Position: Quality Review Member Role: Lap Hand Tool Name: ARLENE RODRIGEZ MD Position: P4 Physician - General Surgery Member Role: Surgeon Address: [address] [place] [address] Telecom: Name: Liz Bass Position: Quality Review Member Role: Lap Hand Tool Care Team Related Persons Name: LORNA PEGUERO Care Team Personnel Name: Ricki Silver Rounding Nurse Position: Bed Management Member Role: Other Name: ABDULKADIR ROSALES PA-C Member Role: Primary Care Physician Address: [address] Telecom: Name: Roxanna Weathers Position: Quality Review Member Role: Lap Hand Tool Name: ARLENE RODRIGEZ MD Position: P4 Physician - General Surgery Member Role: Surgeon Address: [address] [place] [address] Telecom: Name: Liz Bass Position: Quality Review Member Role: Lap Hand Tool Care Team Related Persons Name: LORNA PEGUERO Care Team Personnel Name: Ricki Silver Rounding Nurse Position: Bed Management Member Role: Other Name: ABDULKADIR ROSALES PA-C Member Role: Primary Care Physician Address: [address] Telecom: Name: Roxanna Weathers Position: Quality Review Member Role: Lap Hand Tool Name: ARLENE RODRIGEZ MD Position: P4 Physician - General Surgery Member Role: Surgeon Address: [address] [place] [address] Telecom: Name: Liz Bass Position: Quality Review Member Role: Lap Hand Tool Care Team Related Persons Name: LORNA PEGUERO Care Team Personnel Name: Ricki Silver Nurse Position: Bed Management Member Role: Other Name: ABDULKADIR ROSALES PA-C Member Role: Primary Care Physician Address: [address] [place] [address] [address] Telecom: Name: Roxanna Weathers Position: Quality Review Member Role: Lap Hand Tool Name: ARLENE RODRIGEZ MD Position: P4 Physician - General Surgery Member Role: Surgeon Address: [address] [place] [address] Telecom: Name: Liz Bass Position: Quality Review Member Role: Lap Hand Tool Care Team Related Persons Name: LORNA PEGUREO Care Team Personnel Name: Ricki Silver Nurse Position: Bed Management Member Role: Other Name: ABDULKADIR ROSALES PA-C Member Role: Primary Care Physician Address: [address] [place] [address] [address] Telecom: Name: Roxanna Weathers Position: Quality Review Member Role: Lap Hand Tool Name: ARLENE RODRIGEZ MD Position: P4 Physician - General Surgery Member Role: Surgeon Address: [address] [place] [address] Telecom: Name: Liz Bass Position: Quality Review Member Role: Lap Hand Tool Care Team Related Persons Name: LORNA PEGUERO Care Team Personnel Name: Ricki Silver Nurse Position: Bed Management Member Role: Other Name: ABDULKADIR ROSALES PA-C Member Role: Primary Care Physician Address: [address] Telecom: Name: Roxanna Weathers Position: Quality Review Member Role: Lap Hand Tool Name: ARLENE RODRIGEZ MD Position: P4 Physician - General Surgery Member Role: Surgeon Address: [address] [place] [address] Telecom: Name: Liz Bass Position: Quality Review Member Role: Lap Hand Tool Care Team Related Persons Name: LORNA PEGUERO Care Team Personnel Name: Ricki Silver Nurse Position: Bed Management Member Role: Other Name: ABDULKADIR ROSALES PA-C Member Role: Primary Care Physician Address: [address] [place] [address] [address] Telecom: Name: Roxanna Weathers Position: Quality Review Member Role: Lap Hand Tool Name: ARLENE RODRIGEZ MD Position: P4 Physician - General Surgery Member Role: Surgeon Address: [address] [place] [address] Telecom: Name: Liz Bass Position: Quality Review Member Role: Lap Hand Tool Care Team Related Persons Name: LORNA PEGUERO Care Team Personnel Name: Ricki Silver Nurse Position: Bed Management Member Role: Other Name: ABDULKADIR ROSALES PA-C Member Role: Primary Care Physician Address: [address] [place] [address] [address] Telecom: Name: Roxanna Weathers Position: Quality Review Member Role: Lap Hand Tool Name: ARLENE RODRIGEZ MD Position: P4 Physician - General Surgery Member Role: Surgeon Address: [address] [place] [address] Telecom: Name: Liz Bass Position: Quality Review Member Role: Lap Hand Tool Care Team Related Persons Name: LORNA PEGUERO Care Team Personnel Name: Ricki Silver Roundleslye Nurse Position: Bed Management Member Role: Other Name: ABDULKADIR ROSALES PA-C Member Role: Primary Care Physician Address: [address] [place] [id number] Telecom: Name: Roxanna Weathers Position: Quality Review Member Role: Lap Hand Tool Name: ARLENE RODRIGEZ MD Position: P4 Physician - General Surgery Member Role: Surgeon Address: [address] [place] [address] Telecom: Name: Liz Bass Position: Quality Review Member Role: Lap Hand Tool Care Team Related Persons Name: LORNA PEGUERO Care Team Personnel Name: Ricki Silver Roundleslye Nurse Position: Bed Management Member Role: Other Name: ABDULKADIR ROSALES PA-C Member Role: Primary Care Physician Address: [address] [place] [address] [address] [place] [id number] Telecom: Name: Roxanna Weathers Position: Quality Review Member Role: Lap Hand Tool Name: ARLENE RODRIGEZ MD Position: P4 Physician - General Surgery Member Role: Surgeon Address: [address] [place] [address] [place] Telecom: Name: Liz Bass Position: Quality Review Member Role: Lap Hand Tool Care Team Related Persons Name: LORNA PEGUERO Care Team Personnel Name: Ricki Silver Nurse Position: Bed Management Member Role: Other Name: ABDULKADIR ROSALES PA-C Member Role: Primary Care Physician Address: [address] [place], [place] [address] Telecom: Name: Roxanna Weathers Position: Quality Review Member Role: Lap Hand Tool Name: ARLENE RODRIGEZ MD Position: P4 Physician - General Surgery Member Role: Surgeon Address: [address] [place] [address] [place] Telecom: Name: Liz Bass Position: Quality Review Member Role: Lap Hand Tool Care Team Related Persons Name: LORNA PEGUERO Care Team Personnel Name: Ricki Silver Roundleslye Nurse Position: Bed Management Member Role: Other Name: ABDULKADIR ROSALES PA-C Member Role: Primary Care Physician Address: [address] [place], [place] [address] Telecom: Name: Roxanna Weathers Position: Quality Review Member Role: Lap Hand Tool Name: ARLENE RODRIGEZ MD Position: P4 Physician - General Surgery Member Role: Surgeon Address: [address] [place], [place] [address] Telecom: Name: Liz Bass Position: Quality Review Member Role: Lap Hand Tool Care Team Related Persons Name: JUDELORNA JOHN Care Team Personnel Name: Ricki Silver Roundleslye Nurse Position: Bed Management Member Role: Other Name: ABDULKADIR ROSALES PA-C Member Role: Primary Care Physician Address: [address] [place] [address]- [place] Telecom: Name: Roxanna Weathers Position: Quality Review Member Role: Lap Hand Tool Name: ARLENE RODRIGEZ MD Position: P4 Physician - General Surgery Member Role: Surgeon Address: [address] [place], [place] [id number] Telecom: Name: Liz Bass Position: Quality Review Member Role: Lap Hand Tool Care Team Related Persons Name: LORNA PEGUERO Care Team Personnel Name: Ricki Silver Nurse Position: Bed Management Member Role: Other Name: ABDULKADIR ROSALES PA-C Member Role: Primary Care Physician Address: [address] [place], [place] [address] Telecom: Name: Roxanna Weathers Position: Quality Review Member Role: Lap Hand Tool Name: ARLENE RODRIGEZ MD Position: P4 Physician - General Surgery Member Role: Surgeon Address: [address] [place], [place] [id number]- [place] Telecom: Name: Liz Bass Position: Quality Review Member Role: Lap Hand Tool Care Team Related Persons Name: LORNA PEGUERO Care Team Personnel Name: Ricki Silver Nurse Position: Bed Management Member Role: Other Name: ABDULKADIR ROSALES PA-C Member Role: Primary Care Physician Address: [address] Telecom: Name: Roxanna Weathers Position: Quality Review Member Role: Lap Hand Tool Name: ARLENE RODRIGEZ MD Position: P4 Physician - General Surgery Member Role: Surgeon Address: [address] [place] [address] Telecom: Name: Liz Bass Position: Quality Review Member Role: Lap Hand Tool Care Team Related Persons Name: LORNA PEGUERO Care Team Personnel Name: Ricki Silver Nurse Position: Bed Management Member Role: Other Name: ABDULKADIR ROSALES PA-C Member Role: Primary Care Physician Address: [address] Telecom: Name: Roxanna Weathers Position: Quality Review Member Role: Lap Hand Tool Name: ARLENE RODRIGEZ MD Position: P4 Physician - General Surgery Member Role: Surgeon Address: [address] [place] [address] Telecom: Name: Liz Bass Position: Quality Review Member Role: Lap Hand Tool Care Team Related Persons Name: LORNA PEGUERO Care Team Personnel Name: Ricki Silver Roundleslye Nurse Position: Bed Management Member Role: Other Name: ABDULKADIR ROSALES PA-C Member Role: Primary Care Physician Address: [address] Telecom: Name: Roxanna Weathers Position: Quality Review Member Role: Lap Hand Tool Name: ARLENE RODRIGEZ MD Position: P4 Physician - General Surgery Member Role: Surgeon Address: [address] [place] [address] Telecom: Name: Liz Bass Position: Quality Review Member Role: Lap Hand Tool Care Team Related Persons Name: LORNA PEGUERO Care Team Personnel Name: Ricki Silver Roundleslye Nurse Position: Bed Management Member Role: Other Name: ABDULKADIR ROSALES PA-C Member Role: Primary Care Physician Address: [address] Telecom: Name: Roxanna Weathers Position: Quality Review Member Role: Lap Hand Tool Name: ARLENE RODRIGEZ MD Position: P4 Physician - General Surgery Member Role: Surgeon Address: [address] [place] [address] Telecom: Name: Liz Bass Position: Quality Review Member Role: Lap Hand Tool Care Team Related Persons Name: LORNA PEGUERO Care Team Personnel Name: Ricki Silver Nurse Position: Bed Management Member Role: Other Name: ABDULKADIR ROSALES PA-C Member Role: Primary Care Physician Address: [address] Telecom: Name: Roxanna Weathers Position: Quality Review Member Role: Lap Hand Tool Name: ARLENE RODRIGEZ MD Position: P4 Physician - General Surgery Member Role: Surgeon Address: [address] [place] [address] Telecom: Name: Liz Bass Position: Quality Review Member Role: Lap Hand Tool Care Team Related Persons Name: LORNA PEGUERO Care Team Personnel Name: Ricki Silver Roundleslye Nurse Position: Bed Management Member Role: Other Name: ABDULKADIR ROSALES PA-C Member Role: Primary Care Physician Address: [address] [place], [place] [address] Telecom: Name: Roxanna Weathers Position: Quality Review Member Role: Lap Hand Tool Name: ARLENE RODRIGEZ MD Position: P4 Physician - General Surgery Member Role: Surgeon Address: [address] [place] [address] Telecom: Name: Liz Bass Position: Quality Review Member Role: Lap Hand Tool Care Team Related Persons Name: LORNA PEGUERO Care Team Personnel Name: Ricki Silver Rounding Nurse Position: Bed Management Member Role: Other Name: ABDULKADIR ROSALES PA-C Member Role: Primary Care Physician Address: [address] Telecom: Name: Roxanna Weathers Position: Quality Review Member Role: Lap Hand Tool Name: ARLENE RODRIGEZ MD Position: P4 Physician - General Surgery Member Role: Surgeon Address: [address] [place] [address] Telecom: Name: Liz Bass Position: Quality Review Member Role: Lap Hand Tool Care Team Related Persons Name: LORNA PEGUERO Care Team Personnel Name: Ricki Silver Nurse Position: Bed Management Member Role: Other Name: ABDULKADIR ROSALES PA-C Member Role: Primary Care Physician Address: [address] [place] [address] [address] Telecom: Name: Roxanna Weathers Position: Quality Review Member Role: Lap Hand Tool Name: ARLENE RODRIGEZ MD Position: P4 Physician - General Surgery Member Role: Surgeon Address: [address] [place] [address] Telecom: Name: Liz Bass Position: Quality Review Member Role: Lap Hand Tool Care Team Related Persons Name: LORNA PEGUERO Care Team Personnel Name: Ricki Silver Roundleslye Nurse Position: Bed Management Member Role: Other Name: ABDULKADIR ROSALES PA-C Member Role: Primary Care Physician Address: [address] [place] [id number] Telecom: Name: Roxanna Weathers Position: Quality Review Member Role: Lap Hand Tool Name: ARLENE RODRIGEZ MD Position: P4 Physician - General Surgery Member Role: Surgeon Address: [address] [place] [address] Telecom: Name: Liz Bass Position: Quality Review Member Role: Lap Hand Tool Care Team Related Persons Name: LORNA PEGUERO Care Team Personnel Name: Ricki Silver Nurse Position: Bed Management Member Role: Other Name: ABDULKADIR ROSALES PA-C Member Role: Primary Care Physician Address: [address] [place] [address] [address] Telecom: Name: Roxanna Weathers Position: Quality Review Member Role: Lap Hand Tool Name: ARLENE RODRIGEZ MD Position: P4 Physician - General Surgery Member Role: Surgeon Address: [address] [place] [address] Telecom: Name: Liz Bass Position: Quality Review Member Role: Lap Hand Tool Care Team Related Persons Name: LORNA PEGUERO Care Team Personnel Name: Ricki Silver Roundleslye Nurse Position: Bed Management Member Role: Other Name: ABDULKADIR ROSALES PA-C Member Role: Primary Care Physician Address: [address] [place] [address] [address] Telecom: Name: Roxanna Weathers Position: Quality Review Member Role: Lap Hand Tool Name: ARLENE RODRIGEZ MD Position: P4 Physician - General Surgery Member Role: Surgeon Address: [address] [place] [address] Telecom: Name: Liz Bass Position: Quality Review Member Role: Lap Hand Tool Care Team Related Persons Name: LORNA PEGUERO Care Team Personnel Name: Ricki Silver Roundleslye Nurse Position: Bed Management Member Role: Other Name: ABDULKADIR ROSALES PA-C Member Role: Primary Care Physician Address: [address] Telecom: Name: Roxanna Weathers Position: Quality Review Member Role: Lap Hand Tool Name: ARLENE RODRIGEZ MD Position: P4 Physician - General Surgery Member Role: Surgeon Address: [address] [place] [address] Telecom: Name: Liz Bass Position: Quality Review Member Role: Lap Hand Tool Care Team Related Persons Name: LORNA PEGUERO Care Team Personnel Name: Ricki Silver Nurse Position: Bed Management Member Role: Other Name: ABDULKADIR ROSALES PA-C Member Role: Primary Care Physician Address: [address] [place] [address] [address] Telecom: Name: Roxanna Weathers Position: Quality Review Member Role: Lap Hand Tool Name: ARLENE RODRIGEZ MD Position: P4 Physician - General Surgery Member Role: Surgeon Address: [address] [place] [address] Telecom: Name: Liz Bass Position: Quality Review Member Role: Lap Hand Tool Care Team Related Persons Name: LORNA PEGUERO Care Team Personnel Name: Ricki Silver Nurse Position: Bed Management Member Role: Other Name: ABDULKADIR ROSALES PA-C Member Role: Primary Care Physician Address: [address] [place] [address] [address] Telecom: Name: Roxanna Weathers Position: Quality Review Member Role: Lap Hand Tool Name: ARLENE RODRIGEZ MD Position: P4 Physician - General Surgery Member Role: Surgeon Address: [address] [place] [address] Telecom: Name: Liz Bass Position: Quality Review Member Role: Lap Hand Tool Care Team Related Persons Name: LORNA PEGUERO Care Team Personnel Name: Ricki Silver Roundleslye Nurse Position: Bed Management Member Role: Other Name: ABDULKADIR ROSALES PA-C Member Role: Primary Care Physician Address: [address] Telecom: Name: Roxanna Weathers Position: Quality Review Member Role: Lap Hand Tool Name: ARLENE RODRIGEZ MD Position: P4 Physician - General Surgery Member Role: Surgeon Address: [address] [place] [address] Telecom: Name: Liz Bass Position: Quality Review Member Role: Lap Hand Tool Care Team Related Persons Name: LORNA PEGUERO Care Team Personnel Name: Ricki Silver Roundleslye Nurse Position: Bed Management Member Role: Other Name: ABDULKADIR ROSALES PA-C Member Role: Primary Care Physician Address: [address] [place] [address] [address] Telecom: Name: Roxanna Weathers Position: Quality Review Member Role: Lap Hand Tool Name: ARLENE RODRIGEZ MD Position: P4 Physician - General Surgery Member Role: Surgeon Address: [address] [place] [address] Telecom: Name: Liz Bass Position: Quality Review Member Role: Lap Hand Tool Care Team Related Persons Name: LORNA PEGUERO Care Team Personnel Name: Ricki Silver Roundles[place]e Nurse Position: Bed Management Member Role: Other Name: ABDULKADIR ROSALES PA-C Member Role: Primary Care Physician Address: [address] [place] [address] [address] Telecom: Name: Roxanna Weathers Position: Quality Review Member Role: Lap Hand Tool Name: ARLENE RODRIGEZ MD Position: P4 Physician - General Surgery Member Role: Surgeon Address: [address] [place] [address] Telecom: Name: Liz Bass Position: Quality Review Member Role: Lap Hand Tool Care Team Related Persons Name: LORNA PEGUERO Care Team Personnel Name: Ricki Silver Roundleslye Nurse Position: Bed Management Member Role: Other Name: ABDULKADIR ROSALES PA-C Member Role: Primary Care Physician Address: [address] [place], [facility] Telecom: Name: Roxanna Weathers Position: Quality Review Member Role: Lap Hand Tool Name: ARLENE RODRIGEZ MD Position: P4 Physician - General Surgery Member Role: Surgeon Address: [address] [place] [address] Telecom: Name: Liz Bass Position: Quality Review Member Role: Lap Hand Tool Care Team Related Persons Name: LORNA PEGUERO Care Team Personnel Name: Silver, Ricki Rounding Nurse Position: Bed Management Member Role: Other Name: ABDULKADIR ROSALES PA-C Member Role: Primary Care Physician Address: [address] [place] [id number] Telecom: Name: Roxanna Weathers Position: Quality Review Member Role: Lap Hand Tool Name: ARLENE RODRIGEZ MD Position: P4 Physician - General Surgery Member Role: Surgeon Address: [address] [place] [address] Telecom: Name: Liz Bass Position: Quality Review Member Role: Lap Hand Tool Care Team Related Persons Name: LORNA PEGUERO Care Team Personnel Name: Ricki Silver Rounding Nurse Position: Bed Management Member Role: Other Name: ABDULKADIR ROSALES PA-C Member Role: Primary Care Physician Address: [address] [place], [facility] Telecom: Name: Roxanna Weathers Position: Quality Review Member Role: Lap Hand Tool Name: ARLENE RODRIGEZ MD Position: P4 Physician - General Surgery Member Role: Surgeon Address: [address] [place] [address] Telecom: Name: Liz Bass Position: Quality Review Member Role: Lap Hand Tool Care Team Related Persons Name: LORNA PEGUERO Care Team Personnel Name: Silver, Ricki Rounding Nurse Position: Bed Management Member Role: Other Name: ABDULKADIR ROSALES PA-C Member Role: Primary Care Physician Address: [address] Telecom: Name: Roxanna Weathers Position: Quality Review Member Role: Lap Hand Tool Name: ARLENE RODRIGEZ MD Position: P4 Physician - General Surgery Member Role: Surgeon Address: [address] [place] [address] Telecom: Name: Liz Bass Position: Quality Review Member Role: Lap Hand Tool Care Team Related Persons Name: LORNA PEGUERO Care Team Personnel Name: Ricki Silver Nurse Position: Bed Management Member Role: Other Name: ABDULKADIR ROSALES PA-C Member Role: Primary Care Physician Address: [address] [place] [address] [address] Telecom: Name: Roxanna Weathers Position: Quality Review Member Role: Lap Hand Tool Name: ARLENE RODRIGEZ MD Position: P4 Physician - General Surgery Member Role: Surgeon Address: [address] [place] [address] Telecom: Name: Liz Bass Position: Quality Review Member Role: Lap Hand Tool Care Team Related Persons Name: LORNA PEGUERO Care Team Personnel Name: Ricki Silver Nurse Position: Bed Management Member Role: Other Name: ABDULKADIR ROSALES PA-C Member Role: Primary Care Physician Address: [address] [place] [address] [address] Telecom: Name: Roxanna Weathers Position: Quality Review Member Role: Lap Hand Tool Name: ARLENE RODRIGEZ MD Position: P4 Physician - General Surgery Member Role: Surgeon Address: [address] [place] [address] Telecom: Name: Liz Bass Position: Quality Review Member Role: Lap Hand Tool Care Team Related Persons Name: LORNA PEGUERO Care Team Personnel Name: Ricki Silver Nurse Position: Bed Management Member Role: Other Name: ABDULKADIR ROSALES PA-C Member Role: Primary Care Physician Address: [address] [place] [address] [address] Telecom: Name: Roxanna Weathers Position: Quality Review Member Role: Lap Hand Tool Name: ARLENE RODRIGEZ MD Position: P4 Physician - General Surgery Member Role: Surgeon Address: [address] [place] [address] Telecom: Name: Liz Bass Position: Quality Review Member Role: Lap Hand Tool Care Team Related Persons Name: LORNA PEGUERO Care Team Personnel Name: Ricki Silver Nurse Position: Bed Management Member Role: Other Name: ABDULKADIR ROSALES PA-C Member Role: Primary Care Physician Address: [address] [place] [address] [address] Telecom: Name: Roxanna Weathers Position: Quality Review Member Role: Lap Hand Tool Name: ARLENE RODRIGEZ MD Position: P4 Physician - General Surgery Member Role: Surgeon Address: [address] [place] [address] Telecom: Name: Liz Bass Position: Quality Review Member Role: Lap Hand Tool Care Team Related Persons Name: LORNA PEGUERO Care Team Personnel Name: ABDULKADIR ROSALES PA-C Member Role: Primary Care Physician Address: [address] [place] [address] Telecom: Name: Roxanna Weathers Position: Quality Review Member Role: Lap Hand Tool Name: ARLENE RODRIGEZ MD Position: P4 Physician - General Surgery Member Role: Surgeon Address: [address] [place] [address] Telecom: Name: Liz Bass Position: Quality Review Member Role: Lap Hand Tool Care Team Related Persons Name: LORNA PEGUERO Care Team Personnel Name: ABDULKADIR ROSALES PA-C Member Role: Primary Care Physician Address: [address] [place], [facility] Telecom: Name: Roxanna Weathers Position: Quality Review Member Role: Lap Hand Tool Name: ARLENE RODRIGEZ MD Position: P4 Physician - General Surgery Member Role: Surgeon Address: [address] [place] [address] Telecom: Name: Liz Bass Position: Quality Review Member Role: Lap Hand Tool Care Team Related Persons Name: SUDHIR LORNA Care Team Personnel Name: ABDULKADIR ROSALES PA-C Member Role: Primary Care Physician Address: [address] [place] [id number] Telecom: Name: Roxanna Weathers Position: Quality Review Member Role: Lap Hand Tool Name: ARLENE RODRIGEZ MD Position: P4 Physician - General Surgery Member Role: Surgeon Address: [address] [place] [address] Telecom: Name: Liz Bass Position: Quality Review Member Role: Lap Hand Tool Care Team Related Persons Name: LORNA PEGUERO INFORMATION SOURCE (unrecogn ized section and content) DATE CREATED AUTHOR 06/11/2024 WARREN Jean-Baptiste DATE CREATED AUTHOR AUTHOR'S ORGANIZ ATION 08/15/2024 [facility] DATE CREATED AUTHOR AUTHOR'S ORGANIZ ATION 08/20/2024 [facility] DATE CREATED AUTHOR AUTHOR'S ORGANIZ ATION 05/06/2025 [facility] DATE CREATED AUTHOR AUTHOR'S ORGANIZ ATION 05/08/2025 [facility] Reason for Visit (unrecogniz ed section and content) Reason Comments New Patient Visit FOR RECORDS PERTAINING TO PATIENTS WHO ARE OR HAVE BEEN ENROLLED IN A CHEMICAL DEPENDENCY/SUBSTANCEABUSE PROGRAM, SOME INFORMATION MAY BE OMITTED. This clinical summary was aggregated from multiple sources. Caution should be exercised in using it in the provision of clinical care. This summary normalizes information from multiple sources, and as a consequence, information in this document may materially change the coding, format and clinical context of patient data. In addition, data may be omitted in some cases. CLINICAL DECISIONS SHOULD BE BASED ON THE PRIMARY CLINICAL RECORDS. [facility] [facility]. provides no warranty or guarantee of the accuracy or completeness of information in this document.
[2025-06-06 11:58] LABS: Mucous, Urine 0 SEEN /hpf (<or=2+); Red Blood Cells-Urine 0 SEEN /hpf (0-5)
[2025-06-06 12:00] LABS: Color, Urine Yellow (Yellow); Glucose, Dipstick Normal (Normal); Ketone-Dipstick Negative (Negative); Leukocyte Esterase-Dipstick 100 /ul (Negative); Nitrite-Dipstick Negative (Negative); Occult Blood-Urine 10 /ul (Negative); Protein-Dipstick 30 mg/dl (Negative); Specific Gravity, Urine 1.010 (1.002-1.030); Urine Bilirubin Dipstick Negative (Negative)
[2025-06-06 12:05] LABS: Squamous Epithelial Cells - UA 5-10 SEEN /hpf (5-10)
[2025-06-06] MEDS: Piperacil/Tazobactam 4.5 GM in 0.9% Normal Saline (100mL MB+) 100 ML IV (12:42)
[2025-06-06] MEDS: 0.9% Normal Saline (1000mL) 1,000 ML 999 ML IV ×2 (13:11→14:40)
--- NOTE | 2025-06-06 13:41 | PCM.HP.STD ---
HPI - General General Date of Admission: 06/06/25 Date of Service: 06/06/25 Chief Complaint: Fever HPI Narrative LUCILA HSIEH, is a 44 F who presented to the emergency department at [facility] on 06/06/2025 for fever. Patient reported this started on the day of presentation and was sudden onset but been persistent. She has had some associated nausea and vomiting. Her second round of chemotherapy for metastatic adenocarcinoma of the colon was yesterday. She had a dose of Neulasta. She called on-call oncology and she was told to come the emergency department for further evaluation. She reported she checked her blood sugar at home was in the 80s so she tried to eat some candy but she vomited that back up. She complained of feeling that her heart was racing but denied chest pain or shortness of breath. She has had no cough or upper respiratory symptoms. Patient does have previous history of intra-abdominal abscesses. Those resolved and sepsis type picture for her. She states that she had significant abdominal pain associated with those so she is not concerned about that at this point in time. We did discuss telling us right away if she develops any abdominal pain as we would have a low threshold to perform a CT of her abdomen pelvis with contrast to rule out intra-abdominal abscess. Due to the abscess that she had a diverting loop ileostomy. She still has her colon. She states she is feeling better since receiving IV fluids. She indicates her blood pressure usually runs on the low side but was unable to tell me exactly what the numbers were at baseline for her. We were able to review her labs from recent blood draw. Her iron studies are somewhat suggestive of iron deficiency and her baseline hemoglobin looks around between 8 and 9. Patient had a Tmax at home of 102.7. Vital signs on presentation showed temperature of 101.2 with a Tmax emergency department 102.1. Heart rate was 134, respiratory was 18, blood pressure was 99/66 with a sangita of 94/52, and oxygen saturation was 98% on room air. CBC shows a marked leukocytosis (her baseline white count runs a little bit high but was 13.7 on her last), anemia that appears to be consistent with her baseline level at 8.7 and a normal platelet count. Coags are unremarkable. Chemistry panel is unremarkable. Lactic acid was 3.1. Alk phos was 187. Lipase was normal. UA is not consistent with infection. Chest x-ray shows nodular opacities bilaterally concerning for metastatic disease. No infiltrate was noted. She was started on IV antibiotics after blood cultures were obtained and placed on sepsis replacement fluid protocol. [facility], [facility] Medical History (Updated 06/06/25 @ 15:[address] Alicia Mahan DO) Microcytic anemia Seasonal allergies Anxiety and depression Obesity GERD (gastroesophageal reflux disease) Colostomy in place Colon cancer Home Medications ?Medication ?Instructions ?Recorded ?Last Taken ?Type loratadine 10 mg tablet (Claritin) 10 mg PO DAILY 06/06/25 06/05/25 History olanzapine 5 mg tablet 5 mg PO QHS 06/06/25 06/05/25 History omeprazole 20 mg tablet,delayed 20 mg PO DAILY 06/06/25 06/05/25 History release ondansetron HCl 8 mg tablet 8 mg PO Q8H PRN PRN nausea/vomiting 06/06/25 Unknown History potassium chloride 10 mEq 10 meq PO BID 06/06/25 06/05/25 History tablet,extended release prochlorperazine maleate 5 mg 5 mg PO Q8H PRN nausea and vomiting 06/06/25 06/05/25 History tablet Allergy/AdvReac Type Severity Reaction Status Date / Time ciprofloxacin (From Cipro) AdvReac HTN Verified 06/06/25 09:27 Family History no significant family his no significant family history Surgical History (Updated 06/06/25 @ 15:[address] Alicia Mahan DO) Hx of colostomy Social History (Updated 06/06/25 @ 15:[address] Alicia Mahan DO) household members: spouse housing: house Smoking Status: Never smoker alcohol intake: never substance use type: does not use ROS Constitutional Constitutional: Reports fever(s) and malaise; Denies anorexia, change in weight, chills, fatigue, night sweats, weakness or other Eyes Eyes: Denies blurry vision, change in eye color, change in vision, discharge from eye(s), double vision, erythema, eye pain, loss of vision or other ENT HEENT: Denies abnormal hearing, dysphagia, ear pain, epistaxis, headache(s), hearing loss, nasal congestion, nasal discharge, post nasal drip, sinus pressure, sore throat or other Cardiovascular Cardiovascular: Denies chest pain, claudication, dyspnea on exertion, edema, lightheadedness, orthopnea, palpitations, paroxysmal nocturnal dyspnea, rapid heart rate, syncope or other Respiratory/Chest Respiratory/Chest: Denies cough, dyspnea, excessive phlegm production, hemoptysis, productive cough, shortness of breath at rest, shortness of breath with exertion, wheezing or other Gastrointestinal Gastrointestinal: Reports nausea and vomiting; Denies abdominal pain, coffee ground emesis, constipation, diarrhea, dyspepsia, hematemesis, hematochezia, loose stools, melena or other Genitourinary Genitourinary: Denies burning urination, difficulty urinating, dysuria, hematuria, nocturia, urinary frequency, urinary hesitancy, urinary incontinence, urinary urgency or other Musculoskeletal Musculoskeletal: Denies arthralgias, back pain, joint pain, joint stiffness, joint swelling, myalgias, neck pain or other Neurologic Neurologic: Denies abnormal gait, abnormal speech, confusion, disequilibrium, dizziness, focal weakness, headache(s), numbness, paresthesias, seizure-like activity, seizures, syncope, tingling, tremor(s) or other Psychiatric Psychiatric: Denies anxiety, depression, homicidal ideation, suicidal ideation or other Endocrine Endocrinology: Denies change in body appearance, cold intolerance, excessive sweating, heat intolerance, polydipsia, polyuria or other Hematologic/Lymphatic Hematologic/Lymphatic: Reports anemia; Denies easy bleeding, easy bruising, lymphadenopathy or other Allergic/Immunologic Allergic/Immunologic: Reports rhinitis; Denies hives, eczemia, asthma or other Vital Signs Vital Signs Vital Signs: 06/06/25 09:24 06/06/25 09:59 06/06/25 10:35 Temperature 101.2 F H 102.1 F H Temperature Source Oral Oral Pulse Rate 134 H 106 H Respiratory Rate 18 18 Respiratory Effort Normal Respiratory Pattern Normal Blood Pressure 99/66 94/52 L Blood Pressure Mean 77 66 Pulse Ox 98 98 Oxygen Delivery Method Room Air Room Air 06/06/25 12:00 06/06/25 12:25 06/06/25 12:53 Temperature 100 F H 99.7 F H Temperature Source Oral Pulse Rate 96 98 96 Respiratory Rate 22 H 18 16 Respiratory Effort Respiratory Pattern Blood Pressure 105/56 L 95/59 L 96/51 L Blood Pressure Mean 72 71 66 Pulse Ox 99 96 97 Oxygen Delivery Method Room Air Room Air Weight Weight: 100.896 kg Body Mass Index (BMI) 39.4 Physical Exam Const alert, oriented x3, no apparent distress and well nourished; Negative for average body habitus or healthy appearing Constitutional Narrative: Middle-aged, white female, obese, family at bedside, currently feels comfortable, does not look toxic at this time General Appearance: cooperative HEENT normocephalic, head/scalp atraumatic, hearing grossly normal bilaterally and moist oral mucous membranes HEENT Narrative: No thrush Eyes conjunctivae normal Eyes Narrative: No scleral icterus Neck supple Neck Narrative: Trachea midline Resp normal respiratory effort, no retractions, no use of accessory muscles and clear to auscultation bilaterally Auscultation: Negative for crackles, rhonchi or wheezes Cardio regular rate, regular rhythm, S1 normal heart sound, S2 normal heart sound, no murmurs, no rub, no gallops and no clicks GI normal to inspection, nondistended, normoactive bowel sounds, soft to palpation and non-tender GI Narrative: Ostomy with good output, ostomy is pink Extremity no clubbing, cyanosis or edema Extremity Narrative: Pedal pulses are 2+ Skin Skin Narrative: No significant skin lesions, port right upper chest without any signs of infection Neuro moves all extremities and no focal motor deficits Speech: speech normal Psych affect normal Psych Narrative: Very pleasant, eye contact is good, interacts appropriately Results Lab / Micro Data 06/06/25 10:12 06/06/25 10:12 Labs: Laboratory Results - last 24 hr 06/06/25 10:12: WBC 27.7 H, RBC 4.04 L, Hgb 8.7 L, Hct 30.8 L, MCV 76.2 L, MCH 21.5 L, MCHC 28.2 L, RDW Std Deviation 53.8 H, RDW Coeff of Car 20.4 H, Plt Count 338, MPV 10.4, Neut % (Auto) Not Reportable, Absolute Neuts (auto) 27.7 H, Absolute Lymphs (auto) 0.00 L, Total Counted 100, Neutrophils % (Manual) 99 H, Band Neutrophils % 1, Platelet Estimate ADEQUATE, RBC Morphology N CYTIC, Hypochromasia 1+, PT 14.3, INR 1.1, APTT 22.0 L, Sodium 136, Potassium 3.3, Chloride 99, Carbon Dioxide 23.2, Anion Gap 13, BUN 12, Creatinine 0.68 L, Estim Creat Clear Calc 119.66, Est GFR (MDRD) Non-Af 110, BUN/Creatinine Ratio 17.3, Glucose 127 H, Lactic Acid 3.1 H*, Calcium 8.5, Total Bilirubin 0.59, AST 27, ALT 17, Alkaline Phosphatase 187 H, Total Protein 7.0, Albumin 3.8, Globulin 3.2, Albumin/Globulin Ratio 1.2, Lipase 14 06/06/25 11:55: Urine Color Yellow, Urine Clarity Sl. Cloudy, Urine pH 6.5, Ur Specific [place] 1.010, Urine Protein 30 H, Urine Glucose (UA) Normal, Urine Ketones Negative, Urine Occult Blood 10 H, Urine Nitrite Negative, Urine Bilirubin Negative, Urine Urobilinogen Normal, Ur Leukocyte Esterase 100 H, Urine RBC 0 SEEN, Urine WBC 0-5 SEEN, Ur Squamous Epith Cells 5-10 SEEN, Urine Bacteria 0 SEEN, Urine Mucus 0 SEEN Micro: Microbiology 06/06/25 10:12 Mucosa - Nose SARS-CoV-2, Influenza & RSV (PCR) - Final Imaging Radiology Impression Chest X-Ray 06/06/25 09:54 IMPRESSION: Nodular opacities bilaterally, raising concern for metastatic disease. A follow-up CT is recommended to further evaluate. Reading Location: [facility] Assessment & Plan Assessment/Plan (1) Sepsis: (2) Lactic acidosis: (3) Hypotension: (4) Leukocytosis: (5) Microcytic anemia: PLAN: Plan Sepsis secondary to unknown source and immunocompromise host - Patient is immunocompromised host on chemotherapy for metastatic colon cancer - On presentation had hypotension with lactic acidosis, fever and leukocytosis however leukocytosis may be related to Neulasta -May be able to rule out sepsis as clinically she does not look super toxic however she is immunocompromised which is concerning - Patient does have a Mediport in place - Blood cultures and urine cultures obtained, sputum culture ordered if able to produce - Check MRSA PCR - Started on broad-spectrum antibiotics with cefepime and vancomycin - Treated with sepsis protocol and received 30 cc/kg body weight for fluid resuscitation due to hypotension and lactic acidosis - Patient with history of intra-abdominal abscess but states she was in severe pain at that time--> I do not feel we need to scan her at this time but low threshold if anything changes clinically - Consult ICU Lactic acid/hypotension - Secondary to the above - Treatment as above - Patient does state her blood pressures run on the lower side but unable to give me any numbers. Blood pressures are trending up with IV fluids Nausea and vomiting - Suspect related to chemotherapy - Continue continue home antiemetics to include olanzapine which she takes only for nausea related to chemo - As needed IV antiemetics here to include Compazine and Zofran - IV fluids as noted above - Regular diet as tolerated Leukocytosis - Received Neulasta post chemo so elevation may be related to this - Cultures and antibiotics as above - Repeat CBC in a.m. Metastatic colon adenocarcinoma -Patient has had no surgical resection for this and options are being investigated - Does have loop ileostomy related to intra-abdominal abscess - Undergoing chemo and completed around 2 - Follows with Dr. Lombardi--> discussed case - Outpatient follow-up after discharge Microcytic anemia - baseline hemoglobin is unknown - Reviewed her data on her phone from outside hospital exact her baseline hemoglobin runs between 8 and 9 - Iron studies were suggestive of iron deficiency - Will start p.o. iron supplementation just once daily to avoid constipation may uptitrate if needed GERD - Continue home PPI Seasonal allergies - Continue home loratadine Obesity - BMI is 39.7 - Recommend weight loss - Complicates treatment, prognosis, outcomes DVT prophylaxis - Lovenox 40 SQ twice daily CODE STATUS - Full code verified on admission Sepsis Attestation Sepsis Alert: Yes Sepsis Attestation: Agree w/Sepsis Date exam was performed: 06/06/25 Time exam was performed: 13:41 Possible Source of Sepsis: Unknown (Potentially med port) Sepsis Organ Dysfunction Criteria Present: SBP < 90 mmHg or MAP < 65 mmHg and Lactic Acid > 2 mmol/L Supportive Findings: Patient is an immunocompromised host Fluid Resuscitation Fluid resuscitation indicated?: Yes Fluid Resuscitation ordered: 30 ml/kg fluid bolus ordered Amount of fluid ordered: 3,030 Sepsis Note Date exam was performed: 06/06/25 Time exam was performed: 15:47 Sepsis Attestation: Sepsis re-evaluation was performed Response to fluids: Fluid responsive hypotension (Blood pressures are trending up) Charges/Coding Visit Charges Inpatient E&M: 89085 Init Hosp L2
--- OUTSIDE RECORDS SUMMARY | 2025-06-06 13:58 | XMS RPT_ITS | CCD ---
Author Organization [facility] CliniSysd Care Team Providers Care Neon Installer Name Role Phone Connie FERMIN, Abdulkadir E [...] Unavailable JAMES WILCOX Consulting Unavailable O'HERNADEZ, KAREN CONTRACTING ENGINEER Primary Care Unavailable O'HERNADEZ, KAREN CONTRACTING ENGINEER Admitting Unavailable O'HERNADEZ, KAREN CONTRACTING ENGINEER Attending Unavailable PROVIDER, UNKNOWN Consulting Unavailable PROVIDER, UNKNOWN Consulting Unavailable PROVIDER, UNKNOWN Consulting Unavailable VACCARIELLO, JAMES Consulting Unavailable O'HERNADEZ, KAREN CONTRACTING ENGINEER Attending Unavailable O'HERNADEZ, KAREN CONTRACTING ENGINEER Primary Care Unavailable O'HERNADEZ, KAREN CONTRACTING ENGINEER Admitting Unavailable PROVIDER, UNKNOWN Consulting Unavailable PROVIDER, UNKNOWN Consulting Unavailable PROVIDER, UNKNOWN Consulting Unavailable VACCARIELLO, JAMES Referring Unavailable VACCARIELLO, JAMES Consulting Unavailable O'HERNADEZ, KAREN CONTRACTING ENGINEER Primary Care Unavailable O'HERNADEZ, KAREN CONTRACTING ENGINEER Admitting Unavailable O'HERNADEZ, KAREN CONTRACTING ENGINEER Attending Unavailable PROVIDER, UNKNOWN Consulting Unavailable PROVIDER, UNKNOWN Consulting Unavailable PROVIDER, UNKNOWN Consulting Unavailable ABDULKADIR ROSALES Consulting Unavailable KB GALAN CNP Admitting Unavailable KB GLAAN CNP Attending Unavailable ANGELIA KBJUACNARLOS MENG Primary Care Unavailable PROVIDER, UNKNOWN Consulting [...] Primary Care Unavailab CASIE Hernandez Attending Unavailable CONINE TAMIKA-C, LUKE Primary Care Unavailab ZACH Brush [...] CONNIE PA-C, LUKE Primary Care Unavailab josie LUNDBEGR MD, DR NASCIMENTO Attending Unavailab le CONNIE [...] LUNDBERG MD, DR NASCIMENTO Attending Unavailab josie ARROYOWASHCLOTH FOLDER, FRANCES Roque Attending Unavai lable CONNIE PA-C, [...] LUNDBERG MD, DR NASCIMENTO Attending Unavailab josie ARROYOWASHCLOTH FOLDER, FRANCES Roque Attending Unavai labjosie CONNIE PA-C, LUKE Primary Care Unavailab jsoie LUNDBERG MD, DR NASCIMENTO Attending Unavailab le [...] CONNIE PA-C, LUKE Primary Care Unavailab josie LNUDBERG MD, DR NASCIMENTO Attending Unavailab le CONNIE [...] Primary Care Unavailab josie LUNDBERG MD, DR ANSCIMENTO Attending Unavailab le CONNIE PA-C, LUKE Primary [...] CONNIE PA-C, LUKE Primary Care Unavailab josie PEDERSEN, FRANCES Roque Attending Unavajak ALMENDAREZSTETLER PA-C, LUKE Primary Care Unavailab josie ARGUELLO MD, HELEN Consulting Unavailable ARLENE RODRIGEZ MD Attending Unavailab josie IRIZARRY MD, IRMA Roque Consulting Unavailable CONNIE PA-C, LUKE Primary Care Unavailab josie IRIZARRY MD, IRMA Roque Consulting Unavailable RODRIGEZ MD, ARLENE Valdez Attending [facility] josie ROSALES PA-C, [facility] Daisy EDWARD, DR STRONG Attending Unavailable PATRICIA EDWARD, VANESSA Admitting Unavailable SHRUTHI CAMPBELL, IRMA Hyde Consulting Unavailable WEST FOOTE Consulting Unavailable SANDY SEGURA MD, DR SANTOS CAZARES Consulting Unavailgerardo LUNDBERG MD, DR NASCIMENTO [facility] COULTER DO, LYRIC Consulting Unavailgege PEÑA MD, LELE Consulting [facility] CONNIE FERMIN, [facility] David EDWARD, DR NASCIMENTO Attending [facility] josie ROSALES PA-C, [facility] nAgelica EDWARD, ARLENE Valdez Attending [facility] David EDWARD, DR NASCIMENTO Attending [facility] josie ROSALES PA-C, [facility] David EDWARD, DR NASCIMENTO Attending [facility] CONNIE FERMIN, [facility] josie Allergies Allergy Classification Reported Allergen(s) Allergy Type Date of Onset Reaction(s) Facility (20 sources) Ciprofloxacin; Translations: [ciprofloxacin] Drug Allergy 04-30-2025 Insomnia, Nausea, High Blood Pressure, Tachycardia [facility] Medications Current Medications Medication Drug Class(es) Dates Sig (Normalized) Sig (Original) acetaminophen 325 mg / HYDROcodone bitartrate 5 mg oral tablet (2 sources) Opioid Agonist Start: 07-23-2024 End: 07-30-2024 take 1 tablet by mouth every six hours as needed for pain [place] 325- 5 mg oral tablet Dose = 1 tab(s), Oral, q6h, PRN for pain, X 7 day(s), # 24 tab(s), 0 Refill(s), Pharmacy: [facility], After care, 160, cm, 07/23/24 [...] 0 Refill(s), 04/06/24 12:11:00 PM EDT, Pharmacy: [facility], 160, cm, 03/09/24 3:39:00 EDT, Height, 113, kg, 03/09/24 3:39:00 EDT, Dosing Weight Start Date: 03/16/24 Stop Date: 04/06/24 Status: Ordered ciprofloxacin 500 mg oral tablet (1 source) Quinolone Antimicrobial Start: 08-31-2024 End: 09-07-2024 Cipro 500 mg oral tablet Dose : 500 mg = 1 tab(s), Oral, q12h, X 7 day(s), # 14 tab(s), 0 Refill(s), 09/07/24 9:41:00 AM EDT, Pharmacy: [facility], 160, cm, 08/19/24 17:35:00 EST, Height, [...] 0 Refill(s), 09/07/24 9:42:00 AM EDT, Pharmacy: [facility], 160, cm, 08/19/24 17:35:00 EST, [...] 0 Refill(s), 04/06/24 12:11:00 PM EDT, Pharmacy: [facility], 160, cm, 03/09/24 3:39:00 EDT, Height, 113, kg, 03/09/24 3:39:00 EDT, Dosing Weight Start Date: 03/16/24 Stop Date: 04/06/24 Status: Ordered OLANZapine 5 mg oral tablet (9 sources) Atypical Antipsychotic Start: 03-16-2025 ZyPREXA 5 mg oral tablet Dose : 5 mg = 1 tab(s), Oral, Daily, take at bedtime, # 30 tab(s), 1 Refill(s), Pharmacy: [facility] 160, cm, 03/11/25 12:01:00 EDT, Height, kg, [...] Nausea/Vomiting, # 30 tab(s), 1 Refill(s), Pharmacy: [facility], Adenocarcinoma of sigmoid colon, 160, [...] food, # 30 tab(s), 0 Refill(s), Pharmacy: [facility] Adenocarcinoma of sigmoid colon, 160, cm, [...] Nausea/Vomiting, # 90 tab(s), 0 Refill(s), Pharmacy: [facility] 160, cm, 03/11/25 12:01:00 EDT, Height, kg, 03/09/25 10:30:00 EDT, Dosing Weight Start Date: 03/16/25 Status: Ordered Medication Dispense Status: Completed Quantity: 90.0 Unit: tab(s) Total Allowed Fills: 1 Fills Dispensed: 0 Start: 03-09-2025 prochlorperazi ne 5 mg oral tablet Dose : 5 mg = 1 tab(s), Oral, TID, okay to alternate zofran and prochlorperazine., # 30 tab(s), 0 Refill(s), Pharmacy: [facility], 160, cm, 03/09/25 9:29:00 EDT, Height, kg, 03/09/25 9:04:00 EDT, Dosing Weight Start Date: 03/09/25 Status: Ordered Medication Dispense Status: Completed Quantity: 30.0 Unit: tab(s) Total Allowed Fills: 1 Fills Dispensed: 0 Start: 12-07-2024 prochlorperazi ne 5 mg oral tablet Dose : 5 mg = 1 tab(s), Oral, TID, okay to alternate zofran and prochlorperazine., # 30 tab(s), 0 Refill(s), Pharmacy: [facility] 160, cm, 12/03/24 12:12:00 EDT, Height, kg, [...] from hospital stay - [facility] of Hospital[place] [facility] . Date of Admission: 03.09.24. Date of [...] Basophil, Absolute 0.0 10 3/mcL Normal 0.0-0.3 [facility] Comment on above: Performed By: #### C MP, ANEU, CEA, CBC, ADIFF, GFR ####[address] [address] Basophils/100 WBC (Bld) 0.5 % Normal 0.0-2.5 [facility] Comment on above: Performed By: #### C MP, ANEU, CEA, CBC, ADIFF, GFR ####[address] [address] Eosinophil, Absolute 0.1 10 3/mcL Normal 0.0-0.7 [facility] Comment on above: Performed By: #### C MP, ANEU, CEA, CBC, ADIFF, GFR ####[address] [address] Eosinophils/100 WBC (Bld) 2.4 % Normal 0.0-6.0 [facility] Comment on above: Performed By: #### C MP, ANEU, CEA, CBC, ADIFF, GFR ####[address] [address] Lymphocyte, Absolute 1.4 10 3/mcL Normal 0.9-4.3 [facility] Comment on above: Performed By: #### C MP, ANEU, CEA, CBC, ADIFF, GFR ####[address] [address] Lymphocytes/100 WBC (Bld) 26.7 % Normal 20.0-40.0 [facility] Comment on above: Performed By: #### C MP, ANEU, CEA, CBC, ADIFF, GFR ####[address] [address] Monocyte, Absolute 0.4 10 3/mcL Normal 0.1-1.4 [facility] Comment on above: Performed By: #### C MP, ANEU, CEA, CBC, ADIFF, GFR ####[address] [address] Monocytes/100 WBC (Bld) 6.6 % Normal 2.0-13.0 [facility] Comment on above: Performed By: #### C MP, ANEU, CEA, CBC, ADIFF, GFR ####[address] [address] Neutrophils/100 WBC (Bld) 63.8 % Normal 50.0-75.0 [facility] Comment on above: Performed By: #### C MP, ANEU, CEA, CBC, ADIFF, GFR ####[place] [address] .GFRon 05-04-2025 Estimated Glomerular Filtration Rate 120 ml/min/1.73sqm Normal [facility] Comment on above: Result Comment: Stag [...] C MP, ANEU, CEA, CBC, ADIFF, GFR ####[address] [address] .NEUABSon 05-04-2025 Neutrophil, Absolute 3.4 10 3/mcL Normal 2.3-8.1 [facility] Comment on above: Performed By: #### C MP, ANEU, CEA, CBC, ADIFF, GFR ####[place] [address] CBCon 05-04-2025 Erythrocyte distribution width (RBC) [Ratio] 20.0 % High 11.5-15.5 [facility] Comment on above: Performed By: #### C MP, ANEU, CEA, CBC, ADIFF, GFR ####[place] [address] Hematocrit (Bld) [Volume fraction] 30.9 % Low 34.0-46.0 [facility] Comment on above: Performed By: #### C MP, ANEU, CEA, CBC, ADIFF, GFR ####[place] [address] Hgb 9.3 G/dL Low 12.0-16.0 [facility] Comment on above: Performed By: #### C MP, ANEU, CEA, CBC, ADIFF, GFR ####[place] [address] MCH (RBC) [Entitic mass] 22.0 pg Low 27.0-33.0 [facility] Comment on above: Performed By: #### C MP, ANEU, CEA, CBC, ADIFF, GFR ####[place] [address] MCHC 30.0 G/dL Low 32.0-36.0 [facility] Comment on above: Performed By: #### C MP, ANEU, CEA, CBC, ADIFF, GFR ####[place] [address] MCV (RBC) [Entitic vol] 73.2 fL Low 80.0-99.0 [facility] Comment on above: Performed By: #### C MP, ANEU, CEA, CBC, ADIFF, GFR ####[place] [address] Platelet 249 10 3/mcL Normal 150-450 [facility] Comment on above: Performed By: #### C MP, ANEU, CEA, CBC, ADIFF, GFR ####[place] [address] Platelet mean volume (Bld) [Entitic vol] 8.4 fL Normal 6.6-10.5 [facility] Comment on above: Performed By: #### C MP, ANEU, CEA, CBC, ADIFF, GFR ####[place] [address] RBC 4.22 10 6/mcL Normal 4.10-5.30 [facility] Comment on above: Performed By: #### C MP, ANEU, CEA, CBC, ADIFF, GFR ####[place] [address] WBC 5.3 10 3/mcL Normal 4.5-10.8 [facility] Comment on above: Performed By: #### C MP, ANEU, CEA, CBC, ADIFF, GFR ####[place] [address] CEAon 05-04-2025 CEA 238.2 ng/mL High 0.0-3.0 [facility] Comment on above: Result Comment: CEA Reference Range for SMOKERS: 0.0 - 5.0 ng/mL.Testing performed on the FiberLight IM analyzer usingdirect chemiluminesent technology. Patient resultsdetermined by assays using different manufacturers for methods may not be comparable. Performed By: #### C MP, ANEU, CEA, CBC, ADIFF, GFR ####[place] [address] CMPon 05-04-2025 Albumin Level 3.7 G/dL Normal 3.2-4.8 [facility] Comment on above: Performed By: #### C MP, ANEU, CEA, CBC, ADIFF, GFR ####[place] [address] Albumin/Globulin [Mass ratio] 1.0 {ratio} Normal 0.9-1.6 [facility] Comment on above: Performed By: #### C MP, ANEU, CEA, CBC, ADIFF, GFR ####[place] [address] ALP [Catalytic activity/Vol] 86 U/L Normal 38-126 [facility] Comment on above: Performed By: #### C MP, ANEU, CEA, CBC, ADIFF, GFR ####[address] [address] ALT [Catalytic activity/Vol] 17 U/L Normal 10-49 [facility] Comment on above: Performed By: #### C MP, ANEU, CEA, CBC, ADIFF, GFR ####[address] [address] AST [Catalytic activity/Vol] 21 U/L Normal 8-34 [facility] Comment on above: Performed By: #### C MP, ANEU, CEA, CBC, ADIFF, GFR ####[address] [address] Bili Total 1.00 mg/dL Normal 0.20-1.20 [facility] Comment on above: Result Comment: Use of this assay is not recommended for patients undergoing treatment with eltrombopag due to the potential for falsely elevated results. Performed By: #### C MP, ANEU, CEA, CBC, ADIFF, GFR ####[place] [address] BUN/Creatinine Ratio 23.4 ratio High 10.0-22.0 [facility] Comment on above: Performed By: #### C MP, ANEU, CEA, CBC, ADIFF, GFR ####[address] [address] Calcium [Mass/Vol] 9.5 mg/dL Normal 8.7-10.4 [facility] Comment on above: Performed By: #### C MP, ANEU, CEA, CBC, ADIFF, GFR ####[address] [address] Chloride [Moles/Vol] 106 mmol/L Normal 98-110 [facility] Comment on above: Performed By: #### C MP, ANEU, CEA, CBC, ADIFF, GFR ####[address] [address] CO2 [Moles/Vol] 27 mmol/L Normal 22-32 [facility] Comment on above: Performed By: #### C MP, ANEU, CEA, CBC, ADIFF, GFR ####[place] [address] Creatinine [Mass/Vol] 0.47 mg/dL Low 0.50-1.20 [facility] Comment on above: Result Comment: Test ing performed on Actionsoft analyzer using enzymatic creatinine methodology. Performed By: #### C MP, ANEU, CEA, CBC, ADIFF, GFR ####[place] [address] Electrolyte Balance 8.0 mEq/L Normal 4.0-15.0 [facility] Comment on above: Performed By: #### C MP, ANEU, CEA, CBC, ADIFF, GFR ####[place] [address] Globulin 3.7 G/dL Normal 2.5-4.2 [facility] Comment on above: Performed By: #### C MP, ANEU, CEA, CBC, ADIFF, GFR ####[place] [address] Glucose [Mass/Vol] 103 mg/dL Normal 70-110 [facility] Comment on above: Performed By: #### C MP, ANEU, CEA, CBC, ADIFF, GFR ####[place] [address] Potassium [Moles/Vol] 3.8 mmol/L Normal 3.5-5.0 [facility] Comment on above: Performed By: #### C MP, ANEU, CEA, CBC, ADIFF, GFR ####[place] [address] Sodium [Moles/Vol] 141 mmol/L Normal 136-145 [facility] Comment on above: Performed By: #### C MP, ANEU, CEA, CBC, ADIFF, GFR ####[place] [address] Total Protein 7.4 G/dL Normal 5.7-8.2 [facility] Comment on above: Performed By: #### C MP, ANEU, CEA, CBC, ADIFF, GFR ####[place] [address] Urea nitrogen [Mass/Vol] 11.0 mg/dL Normal 8.0-22.0 [facility] Comment on above: Performed By: #### C MP, ANEU, CEA, CBC, ADIFF, GFR ####[facility] [place] [address] LABORATORYOrdered By: SYSTEM SYSTEM on 05-04-2025 Albumin [...] - 5.0 ng/mL. Testing performed on the STYLIGHT analyzer using direct chemiluminesent technology. Patient results [...] above: Interpretive Data: T esting performed on FiberLight CH analyzer using enzymatic creatinine methodology. Electrolyte [...] Visit (SP) Office (HEMAWS) -------- CLARISSE PEGUEROArtem ([id number]) 1980 F Date Time Provider Department 04/30/25 [...] in March 2024. She was admitted to [facility] where CT demonstrated a large abscess with extension into the rectouterine pouch. There was evidently concern for obstructive uropathy as well. She was treated with IV antibiotics and CT guided drainage of the abscess. Rectal bleeding continued and bowel movements were noted to be irregular. A CT scan of the abdomen pelvis on 04/27/2024 done at [facility] demonstrated a 2-1/2 cm hypodense focus in [...] FOLFOX 08/05/2024. She had been seen at [facility] for second opinion. An MRI performed with [...] extraction 04/13/2025. Port replaced 04/22/2025. 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 No past medical history on [...] No dy (more content not included)... Normal [facility] CNPNon 04-30-2025 CNPN Telephone (HEMAWS) -------- CLARISSE PEGUERO ([id number]) 1980 F Date Time Provider Department 04/30/25 BONIFACIO LOMBARDI During your visit today, we recorded the following information about you: Xin Aguilera LPN 04/30/2025 2:42 PM Signed [facility]. Report of pathology of liver biopsy 07/2024. Report of NGS panel on liver biopsy specimen. CT images done 04/01 @ [facility] over read Allergies As of Date: 04/30/2025 [...] Status:Closed by XIN AGUILERA on 05/05/25 Normal [facility] CMEDon 04-28-2025 CMED [facility] MAIN LABORATORYOrdered By: Bruno Castle on 04-22-2025 Beta HCG ( test) Ql (U) Negative (04/22/25 5:42 AM) [facility] Work Phone: XR FLUORO VENOUS ACCESS OLAF CEon 04-22-2025 XR FLUORO VENOUS ACCESS DEVICE Normal [facility] .GFRon 04-06-2025 Estimated Glomerular Filtration Rate 117 ml/min/1.73sqm [facility] Comment on above: Result Comment: Stag [...] FR, ANEU, CBC, CMP, CEA, MORPH, DIFF ####[address] [address] .Manual Diffon 04-06-2025 Bands 1.0 % Normal 0.0-5.0 [facility] Comment on above: Performed By: #### G FR, ANEU, CBC, CMP, CEA, MORPH, DIFF ####[address] [address] Basophil %, Manual 0.0 % Normal 0.0-2.5 [facility] Comment on above: Performed By: #### G FR, ANEU, CBC, CMP, CEA, MORPH, DIFF ####[address] [address] Basophil, Abs Manual 0.0 10 3/mcL Normal 0.0-0.3 [facility] Comment on above: Performed By: #### G FR, ANEU, CBC, CMP, CEA, MORPH, DIFF ####[address] [address] Eosinophil %, Manual 1.0 % Normal 0.0-6.0 [facility] Comment on above: Performed By: #### G FR, ANEU, CBC, CMP, CEA, MORPH, DIFF ####[address] [address] Eosinophil, Abs Manual 0.1 10 3/mcL Normal 0.0-0.7 [facility] Comment on above: Performed By: #### G FR, ANEU, CBC, CMP, CEA, MORPH, DIFF ####[address] [address] Lymphocyte %, Manual 10.0 % Low 20.0-40.0 [facility] Comment on above: Performed By: #### G FR, ANEU, CBC, CMP, CEA, MORPH, DIFF ####[address] [address] Lymphocyte, Abs Manual 1.0 10 3/mcL Normal 0.9-4.3 [facility] Comment on above: Performed By: #### G FR, ANEU, CBC, CMP, CEA, MORPH, DIFF ####[address] [address] Monocyte %, Manual 2.0 % Normal 2.0-13.0 [facility] Comment on above: Performed By: #### G FR, ANEU, CBC, CMP, CEA, MORPH, DIFF ####[address] [address] Monocyte, Abs Manual 0.2 10 3/mcL Normal 0.1-1.4 [facility] Comment on above: Performed By: #### G FR, ANEU, CBC, CMP, CEA, MORPH, DIFF ####[address] [address] Neutrophil %, Manual 86.0 % High 50.0-75.0 [facility] Comment on above: Performed By: #### G FR, ANEU, CBC, CMP, CEA, MORPH, DIFF ####[place] [address] Neutrophil, Abs Manual 8.9 10 3/mcL High 2.3-8.1 [facility] Comment on above: Performed By: #### G FR, ANEU, CBC, CMP, CEA, MORPH, DIFF ####[place] [address] Nucleated RBC 0.0 /100 WBC Normal [facility] Comment on above: Performed By: #### G FR, ANEU, CBC, CMP, CEA, MORPH, DIFF ####[place] [address] .Morphon 04-06-2025 Anisocytosis Ql (Bld) 2+ Normal [facility] Comment on above: Performed By: #### G FR, ANEU, CBC, CMP, CEA, MORPH, DIFF ####[place] [address] Hypochrom 1+ Normal [facility] Comment on above: Performed By: #### G FR, ANEU, CBC, CMP, CEA, MORPH, DIFF ####[place] [address] Microcytosis 1+ Normal [facility] Comment on above: Performed By: #### G FR, ANEU, CBC, CMP, CEA, MORPH, DIFF ####[place] [address] Ovalocytes 1+ Normal [facility] Comment on above: Performed By: #### G FR, ANEU, CBC, CMP, CEA, MORPH, DIFF ####[place] [address] Platelet Estimate Normal [facility] Comment on above: Performed By: #### G FR, ANEU, CBC, CMP, CEA, MORPH, DIFF ####[place] [address] Poik 1+ [facility] Comment on above: Performed By: #### G FR, ANEU, CBC, CMP, CEA, MORPH, DIFF ####[place] [id number] Polychrom 1+ Normal [facility] Comment on above: Performed By: #### G FR, ANEU, CBC, CMP, CEA, MORPH, DIFF ####[place] [address] Toxic Gran 1+ Normal [facility] Comment on above: Performed By: #### G FR, ANEU, CBC, CMP, CEA, MORPH, DIFF ####[place] [address] .NEUABSon 04-06-2025 Neutrophil, Absolute 8.4 10 3/mcL High 2.3-8.1 [facility] Comment on above: Performed By: #### G FR, ANEU, CBC, CMP, CEA, MORPH, DIFF ####[place] [address] CBCon 04-06-2025 Erythrocyte distribution width (RBC) [Ratio] 22.7 % High 11.5-15.5 [facility] Comment on above: Performed By: #### G FR, ANEU, CBC, CMP, CEA, MORPH, DIFF ####[place] [address] Hematocrit (Bld) [Volume fraction] 31.3 % Low 34.0-46.0 [facility] Comment on above: Performed By: #### G FR, ANEU, CBC, CMP, CEA, MORPH, DIFF ####[place] [address] Hgb 9.5 G/dL Low 12.0-16.0 [facility] Comment on above: Performed By: #### G FR, ANEU, CBC, CMP, CEA, MORPH, DIFF ####[place] [address] MCH (RBC) [Entitic mass] 23.3 pg Low 27.0-33.0 [facility] Comment on above: Performed By: #### G FR, ANEU, CBC, CMP, CEA, MORPH, DIFF ####[place] [address] MCHC 30.4 G/dL Low 32.0-36.0 [facility] Comment on above: Performed By: #### G FR, ANEU, CBC, CMP, CEA, MORPH, DIFF ####[place] [address] MCV (RBC) [Entitic vol] 76.5 fL Low 80.0-99.0 [facility] Comment on above: Performed By: #### G FR, ANEU, CBC, CMP, CEA, MORPH, DIFF ####[place] [address] Platelet 342 10 3/mcL Normal 150-450 [facility] Comment on above: Performed By: #### G FR, ANEU, CBC, CMP, CEA, MORPH, DIFF ####[place] [address] Platelet mean volume (Bld) [Entitic vol] 8.9 fL Normal 6.6-10.5 [facility] Comment on above: Performed By: #### G FR, ANEU, CBC, CMP, CEA, MORPH, DIFF ####[place] [address] RBC 4.09 10 6/mcL Low 4.10-5.30 [facility] Comment on above: Performed By: #### G FR, ANEU, CBC, CMP, CEA, MORPH, DIFF ####[place] [address] WBC 10.2 10 3/mcL Normal 4.5-10.8 [facility] Comment on above: Performed By: #### G FR, ANEU, CBC, CMP, CEA, MORPH, DIFF ####[place] [address] CEAon 04-06-2025 CEA 55.0 ng/mL High 0.0-3.0 [facility] Comment on above: Result Comment: CEA Reference Range for SMOKERS: 0.0 - 5.0 ng/mL.Testing performed on the FiberLight IM analyzer usingdirect chemiluminesent technology. Patient resultsdetermined by assays using different manufacturers for methods may not be comparable. Performed By: #### G FR, ANEU, CBC, CMP, CEA, MORPH, DIFF ####[place] [address] CMPon 04-06-2025 Albumin Level 3.9 G/dL Normal 3.2-4.8 [facility] Comment on above: Performed By: #### G FR, ANEU, CBC, CMP, CEA, MORPH, DIFF ####[address] [address] Albumin/Globulin [Mass ratio] 1.0 {ratio} Normal 0.9-1.6 [facility] Comment on above: Performed By: #### G FR, ANEU, CBC, CMP, CEA, MORPH, DIFF ####[address] [address] ALP [Catalytic activity/Vol] 154 U/L High 38-126 [facility] Comment on above: Performed By: #### G FR, ANEU, CBC, CMP, CEA, MORPH, DIFF ####[place] [address] ALT [Catalytic activity/Vol] 20 U/L Normal 10-49 [facility] Comment on above: Performed By: #### G FR, ANEU, CBC, CMP, CEA, MORPH, DIFF ####[place] [id number] AST [Catalytic activity/Vol] 17 U/L Normal 8-34 [facility] Comment on above: Performed By: #### G FR, ANEU, CBC, CMP, CEA, MORPH, DIFF ####[place] [address] Bili Total 0.50 mg/dL Normal 0.20-1.20 [facility] Comment on above: Result Comment: Use of this assay is not recommended for patients undergoing treatment with eltrombopag due to the potential for falsely elevated results. Performed By: #### G FR, ANEU, CBC, CMP, CEA, MORPH, DIFF ####[place] [address] BUN/Creatinine Ratio 18.9 ratio Normal 10.0-22.0 [facility] Comment on above: Performed By: #### G FR, ANEU, CBC, CMP, CEA, MORPH, DIFF ####[address] [address] Calcium [Mass/Vol] 10.0 mg/dL Normal 8.7-10.4 [facility] Comment on above: Performed By: #### G FR, ANEU, CBC, CMP, CEA, MORPH, DIFF ####[address] [address] Chloride [Moles/Vol] 106 mmol/L Normal 98-110 [facility] Comment on above: Performed By: #### G FR, ANEU, CBC, CMP, CEA, MORPH, DIFF ####[address] [address] CO2 [Moles/Vol] 27 mmol/L Normal 22-32 [facility] Comment on above: Performed By: #### G FR, ANEU, CBC, CMP, CEA, MORPH, DIFF ####[address] [address] Creatinine [Mass/Vol] 0.53 mg/dL Normal 0.50-1.20 [facility] Comment on above: Result Comment: Test ing performed on [employer] analyzer using enzymatic creatinine methodology. Performed By: #### G FR, ANEU, CBC, CMP, CEA, MORPH, DIFF ####[address] [address] Electrolyte Balance 9.0 mEq/L Normal 4.0-15.0 [facility] Comment on above: Performed By: #### G FR, ANEU, CBC, CMP, CEA, MORPH, DIFF ####[address] [address] Globulin 3.8 G/dL Normal 2.5-4.2 [facility] Comment on above: Performed By: #### G FR, ANEU, CBC, CMP, CEA, MORPH, DIFF ####[address] [address] Glucose [Mass/Vol] 97 mg/dL Normal 70-110 [facility] Comment on above: Performed By: #### G FR, ANEU, CBC, CMP, CEA, MORPH, DIFF ####[address] [address] Potassium [Moles/Vol] 3.8 mmol/L Normal 3.5-5.0 [facility] Comment on above: Performed By: #### G FR, ANEU, CBC, CMP, CEA, MORPH, DIFF ####[place] [address] [place] [address] Sodium [Moles/Vol] 142 mmol/L Normal 136-145 [facility] Comment on above: Performed By: #### G FR, ANEU, CBC, CMP, CEA, MORPH, DIFF ####[place] [address] Total Protein 7.7 G/dL Normal 5.7-8.2 [facility] Comment on above: Performed By: #### G FR, ANEU, CBC, CMP, CEA, MORPH, DIFF ####[place] [address] Urea nitrogen [Mass/Vol] 10.0 mg/dL Normal 8.0-22.0 [facility] Comment on above: Performed By: #### G FR, ANEU, CBC, CMP, CEA, MORPH, DIFF ####[place] [address] LABORATORYOrdered By: SYSTEM SYSTEM on 04-06-2025 Albumin [...] - 5.0 ng/mL. Testing performed on the [employer] IM analyzer using direct chemiluminesent technology. Patient results determined by assays using different manufacturers for methods may not be comparable. Chloride [Moles/Vol] 106 mmol/L Normal 98 - 11 0 mEq/L ADM SS CO2 [Moles/Vol] 27 mmol/L Normal 22 - 32 mEq/L ADM SS Creatinine [Mass/Vol] 0.53 mg/dL Normal 0.50 - 1.20 mg/dL ADM SS Comment on above: Interpretive Data: T esting performed on [employer] CH analyzer using enzymatic creatinine methodology. Electrolyte [...] CT ABD/PELVIS W/ IV CONTRAST ONLY Normal [facility] CT THORAX W/ CONTRASTon CT THORAX W/ CONTRAST Normal [facility] .Auto Diffon 03-23-2025 Basophil, Absolute 0.0 10 3/mcL Normal 0.0-0.3 [facility] Comment on above: Performed By: #### G FR, ANEU, CMP, ADIFF, CBC ####[address] [address] Basophils/100 WBC (Bld) 0.2 % Normal 0.0-2.5 [facility] Comment on above: Performed By: #### G FR, ANEU, CMP, ADIFF, CBC ####[address] [address] Eosinophil, Absolute 0.1 10 3/mcL Normal 0.0-0.7 [facility] Comment on above: Performed By: #### G FR, ANEU, CMP, ADIFF, CBC ####[address] [address] Eosinophils/100 WBC (Bld) 0.5 % Normal 0.0-6.0 [facility] Comment on above: Performed By: #### G FR, ANEU, CMP, ADIFF, CBC ####[address] [address] Lymphocyte, Absolute 1.6 10 3/mcL Normal 0.9-4.3 [facility] Comment on above: Performed By: #### G FR, ANEU, CMP, ADIFF, CBC ####[address] [address] Lymphocytes/100 WBC (Bld) 12.2 % Low 20.0-40.0 [facility] Comment on above: Performed By: #### G FR, ANEU, CMP, ADIFF, CBC ####[address] [address] Monocyte, Absolute 0.7 10 3/mcL Normal 0.1-1.4 [facility] Comment on above: Performed By: #### G FR, ANEU, CMP, ADIFF, CBC ####[address] [address] Monocytes/100 WBC (Bld) 5.7 % Normal 2.0-13.0 [facility] Comment on above: Performed By: #### G FR, ANEU, CMP, ADIFF, CBC ####[address] [address] Neutrophils/100 WBC (Bld) 81.4 % High 50.0-75.0 [facility] Comment on above: Performed By: #### G FR, ANEU, CMP, ADIFF, CBC ####[place] [address] .GFRon 03-23-2025 Estimated Glomerular Filtration Rate 117 ml/min/1.73sqm Normal [facility] Comment on above: Result Comment: Stag [...] FR, ANEU, CMP, ADIFF, CBC ####[place] [address] .NEUABSon 03-23-2025 Neutrophil, Absolute 10.4 10 3/mcL High 2.3-8.1 [facility] Comment on above: Performed By: #### G FR, ANEU, CMP, ADIFF, CBC ####[place] [address] CBCon 03-23-2025 Erythrocyte distribution width (RBC) [Ratio] 22.9 % High 11.5-15.5 [facility] Comment on above: Performed By: #### G FR, ANEU, CMP, ADIFF, CBC ####[place] [address] Hematocrit (Bld) [Volume fraction] 29.6 % Low 34.0-46.0 [facility] Comment on above: Performed By: #### G FR, ANEU, CMP, ADIFF, CBC ####[place] [address] Hgb 9.0 G/dL Low 12.0-16.0 [facility] Comment on above: Performed By: #### G FR, ANEU, CMP, ADIFF, CBC ####[place] [address] MCH (RBC) [Entitic mass] 23.1 pg Low 27.0-33.0 [facility] Comment on above: Performed By: #### G FR, ANEU, CMP, ADIFF, CBC ####[place] [address] MCHC 30.5 G/dL Low 32.0-36.0 [facility] Comment on above: Performed By: #### G FR, ANEU, CMP, ADIFF, CBC ####[place] [address] MCV (RBC) [Entitic vol] 75.8 fL Low 80.0-99.0 [facility] Comment on above: Performed By: #### G FR, ANEU, CMP, ADIFF, CBC ####[place] [address] Platelet 262 10 3/mcL Normal 150-450 [facility] Comment on above: Performed By: #### G FR, ANEU, CMP, ADIFF, CBC ####[place] [address] Platelet mean volume (Bld) [Entitic vol] 8.7 fL Normal 6.6-10.5 [facility] Comment on above: Performed By: #### G FR, ANEU, CMP, ADIFF, CBC ####[place] [address] RBC 3.90 10 6/mcL Low 4.10-5.30 [facility] Comment on above: Performed By: #### G FR, ANEU, CMP, ADIFF, CBC ####[place] [address] WBC 12.8 10 3/mcL High 4.5-10.8 [facility] Comment on above: Performed By: #### G FR, ANEU, CMP, ADIFF, CBC ####[place] [address] CMPon 03-23-2025 Albumin Level 3.8 G/dL Normal 3.2-4.8 [facility] Comment on above: Performed By: #### G FR, ANEU, CMP, ADIFF, CBC ####[address] [address] Albumin/Globulin [Mass ratio] 1.1 {ratio} Normal 0.9-1.6 [facility] Comment on above: Performed By: #### G FR, ANEU, CMP, ADIFF, CBC ####[address] [address] ALP [Catalytic activity/Vol] 143 U/L High 38-126 [facility] Comment on above: Performed By: #### G FR, ANEU, CMP, ADIFF, CBC ####[place] [address] ALT [Catalytic activity/Vol] 16 U/L Normal 10-49 [facility] Comment on above: Performed By: #### G FR, ANEU, CMP, ADIFF, CBC ####[place] [address] AST [Catalytic activity/Vol] 17 U/L Normal 8-34 [facility] Comment on above: Performed By: #### G FR, ANEU, CMP, ADIFF, CBC ####[place] [address] Bili Total 0.70 mg/dL Normal 0.20-1.20 [facility] Comment on above: Result Comment: Use of this assay is not recommended for patients undergoing treatment with eltrombopag due to the potential for falsely elevated results. Performed By: #### G FR, ANEU, CMP, ADIFF, CBC ####[place] [address] BUN/Creatinine Ratio 18.9 ratio Normal 10.0-22.0 [facility] Comment on above: Performed By: #### G FR, ANEU, CMP, ADIFF, CBC ####[address] [address] Calcium [Mass/Vol] 9.5 mg/dL Normal 8.7-10.4 [facility] Comment on above: Performed By: #### G FR, ANEU, CMP, ADIFF, CBC ####[place] [address] Chloride [Moles/Vol] 107 mmol/L Normal 98-110 [facility] Comment on above: Performed By: #### G FR, ANEU, CMP, ADIFF, CBC ####[place] [address] CO2 [Moles/Vol] 27 mmol/L Normal 22-32 [facility] Comment on above: Performed By: #### G FR, ANEU, CMP, ADIFF, CBC ####[place] [address] Creatinine [Mass/Vol] 0.53 mg/dL Normal 0.50-1.20 [facility] Comment on above: Result Comment: Test ing performed on [employer] analyzer using enzymatic creatinine methodology. Performed By: #### G FR, ANEU, CMP, ADIFF, CBC ####[place] [address] Electrolyte Balance 9.0 mEq/L Normal 4.0-15.0 [facility] Comment on above: Performed By: #### G FR, ANEU, CMP, ADIFF, CBC ####[place] [address] Globulin 3.4 G/dL Normal 2.5-4.2 [facility] Comment on above: Performed By: #### G FR, ANEU, CMP, ADIFF, CBC ####[place] [address] Glucose [Mass/Vol] 99 mg/dL Normal 70-110 [facility] Comment on above: Performed By: #### G FR, ANEU, CMP, ADIFF, CBC ####[place] [address] Potassium [Moles/Vol] 3.3 mmol/L Low 3.5-5.0 [facility] Comment on above: Performed By: #### G FR, ANEU, CMP, ADIFF, CBC ####[place] [address] Sodium [Moles/Vol] 143 mmol/L Normal 136-145 [facility] Comment on above: Performed By: #### G FR, ANEU, CMP, ADIFF, CBC ####[place] [id number] [place] [address] Total Protein 7.2 G/dL Normal 5.7-8.2 [facility] Comment on above: Performed By: #### G FR, ANEU, CMP, ADIFF, CBC ####[place] [address] [place] [address] Urea nitrogen [Mass/Vol] 10.0 mg/dL Normal 8.0-22.0 [facility] Comment on above: Performed By: #### G FR, ANEU, CMP, ADIFF, CBC ####[address] [address] LABORATORYOrdered By: SYSTEM SYSTEM on 03-23-2025 Albumin [...] above: Interpretive Data: T esting performed on [employer] analyzer using enzymatic creatinine methodology. Electrolyte Balance [...] Estimated Glomerular Filtration Rate 115 ml/min/1.73sqm Normal [facility] Comment on above: Result Comment: Stag [...] MORPH, ANEU, GFR, DIFF, CMP ####[place] [address] .Manual Diffon 03-09-2025 Basophil %, Manual 0.0 % Normal 0.0-2.5 [facility] Comment on above: Performed By: #### C BC, MORPH, ANEU, GFR, DIFF, CMP ####[place] [address] Basophil, Abs Manual 0.0 10 3/mcL Normal 0.0-0.3 [facility] Comment on above: Performed By: #### C BC, MORPH, ANEU, GFR, DIFF, CMP ####[place] [address] Eosinophil %, Manual 1.0 % Normal 0.0-6.0 [facility] Comment on above: Performed By: #### C BC, MORPH, ANEU, GFR, DIFF, CMP ####[place] [address] Eosinophil, Abs Manual 0.1 10 3/mcL Normal 0.0-0.7 [facility] Comment on above: Performed By: #### C BC, MORPH, ANEU, GFR, DIFF, CMP ####[place] [address] Lymphocyte %, Manual 17.0 % Low 20.0-40.0 [facility] Comment on above: Performed By: #### C BC, MORPH, ANEU, GFR, DIFF, CMP ####[place] [address] Lymphocyte, Abs Manual 1.1 10 3/mcL Normal 0.9-4.3 [facility] Comment on above: Performed By: #### C BC, MORPH, ANEU, GFR, DIFF, CMP ####[place] [address] Monocyte %, Manual 1.0 % Low 2.0-13.0 [facility] Comment on above: Performed By: #### C BC, MORPH, ANEU, GFR, DIFF, CMP ####[place] [address] Monocyte, Abs Manual 0.1 10 3/mcL Normal 0.1-1.4 [facility] Comment on above: Performed By: #### C BC, MORPH, ANEU, GFR, DIFF, CMP ####[place] [address] Neutrophil %, Manual 81.0 % High 50.0-75.0 [facility] Comment on above: Performed By: #### C BC, MORPH, ANEU, GFR, DIFF, CMP ####[place] [address] Neutrophil, Abs Manual 5.3 10 3/mcL Normal 2.3-8.1 [facility] Comment on above: Performed By: #### C BC, MORPH, ANEU, GFR, DIFF, CMP ####[place] [address] Nucleated RBC 1.0 /100 WBC Normal [facility] Comment on above: Performed By: #### C BC, MORPH, ANEU, GFR, DIFF, CMP ####[place] [address] .Morphon 03-09-2025 Anisocytosis Ql (Bld) 1+ Normal [facility] Comment on above: Performed By: #### C BC, MORPH, ANEU, GFR, DIFF, CMP ####[place] [address] Hypochrom 1+ Normal [facility] Comment on above: Performed By: #### C BC, MORPH, ANEU, GFR, DIFF, CMP ####[place] [address] Large Platelets Few Normal [facility] Comment on above: Performed By: #### C BC, MORPH, ANEU, GFR, DIFF, CMP ####[place] [address] Microcytosis 1+ Normal [facility] Comment on above: Performed By: #### C BC, MORPH, ANEU, GFR, DIFF, CMP ####[place] [address] Ovalocytes 1+ Normal [facility] Comment on above: Performed By: #### C BC, MORPH, ANEU, GFR, DIFF, CMP ####[place] [address] Platelet Estimate Normal [facility] MAIN Comment on above: Performed By: #### C BC, MORPH, ANEU, GFR, DIFF, CMP ####[place] [address] Poik 1+ [facility] MAIN Comment on above: Performed By: #### C BC, MORPH, ANEU, GFR, DIFF, CMP ####[place] [address] Polychrom 1+ [facility] MAIN Comment on above: Performed By: #### C BC, MORPH, ANEU, GFR, DIFF, CMP ####[place] [address] Stomatocytes 1+ [facility] MAIN Comment on above: Performed By: #### C BC, MORPH, ANEU, GFR, DIFF, CMP ####[place] [address] Tear Cell 1+ [facility] MAIN Comment on above: Performed By: #### C BC, MORPH, ANEU, GFR, DIFF, CMP ####[place] [address] Toxic Gran 1+ [facility] MAIN Comment on above: Performed By: #### C BC, MORPH, ANEU, GFR, DIFF, CMP ####[place] [address] .NEUABSon 03-09-2025 Neutrophil, Absolute 4.8 10 3/mcL Normal 2.3-8.1 [facility] Comment on above: Performed By: #### C BC, MORPH, ANEU, GFR, DIFF, CMP ####[place] [address] CBCon 03-09-2025 Erythrocyte distribution width (RBC) [Ratio] 22.6 % High 11.5-15.5 [facility] Comment on above: Performed By: #### C BC, MORPH, ANEU, GFR, DIFF, CMP ####[place] [address] Hematocrit (Bld) [Volume fraction] 30.8 % Low 34.0-46.0 [facility] Comment on above: Performed By: #### C BC, MORPH, ANEU, GFR, DIFF, CMP ####[place] [address] Hgb 9.4 G/dL Low 12.0-16.0 [facility] Comment on above: Performed By: #### C BC, MORPH, ANEU, GFR, DIFF, CMP ####[place] [address] MCH (RBC) [Entitic mass] 23.3 pg Low 27.0-33.0 [facility] Comment on above: Performed By: #### C BC, MORPH, ANEU, GFR, DIFF, CMP ####[place] [address] MCHC 30.4 G/dL Low 32.0-36.0 [facility] Comment on above: Performed By: #### C BC, MORPH, ANEU, GFR, DIFF, CMP ####[place] [address] MCV (RBC) [Entitic vol] 76.6 fL Low 80.0-99.0 [facility] MA[facility] Comment on above: Performed By: #### C BC, MORPH, ANEU, GFR, DIFF, CMP ####[place] [address] Platelet 298 10 3/mcL Normal 150-450 [facility] Comment on above: Performed By: #### C BC, MORPH, ANEU, GFR, DIFF, CMP ####[place] [address] Platelet mean volume (Bld) [Entitic vol] 8.4 fL Normal 6.6-10.5 [facility] Comment on above: Performed By: #### C BC, MORPH, ANEU, GFR, DIFF, CMP ####[place] [address] RBC 4.03 10 6/mcL Low 4.10-5.30 [facility] Comment on above: Performed By: #### C BC, MORPH, ANEU, GFR, DIFF, CMP ####[place] [address] WBC 6.6 10 3/mcL Normal 4.5-10.8 [facility] Comment on above: Performed By: #### C BC, MORPH, ANEU, GFR, DIFF, CMP ####[place] [address] CMPon 03-09-2025 Albumin Level 3.7 G/dL Normal 3.2-4.8 [facility] Comment on above: Performed By: #### C BC, MORPH, ANEU, GFR, DIFF, CMP ####[place] [address] Albumin/Globulin [Mass ratio] 1.1 {ratio} Normal 0.9-1.6 [facility] Comment on above: Performed By: #### C BC, MORPH, ANEU, GFR, DIFF, CMP ####[place] [address] ALP [Catalytic activity/Vol] 117 U/L Normal 38-126 [facility] Comment on above: Performed By: #### C BC, MORPH, ANEU, GFR, DIFF, CMP ####[place] [address] ALT [Catalytic activity/Vol] 19 U/L Normal 10-49 [facility] Comment on above: Performed By: #### C BC, MORPH, ANEU, GFR, DIFF, CMP ####[place] [address] AST [Catalytic activity/Vol] 18 U/L Normal 8-34 [facility] Comment on above: Performed By: #### C BC, MORPH, ANEU, GFR, DIFF, CMP ####[place] [address] Bili Total 0.60 mg/dL Normal 0.20-1.20 [facility] Comment on above: Result Comment: Use of this assay is not recommended for patients undergoing treatment with eltrombopag due to the potential for falsely elevated results. Performed By: #### C BC, MORPH, ANEU, GFR, DIFF, CMP ####[place] [address] BUN/Creatinine Ratio 16.1 ratio Normal 10.0-22.0 [facility] Comment on above: Performed By: #### C BC, MORPH, ANEU, GFR, DIFF, CMP ####[place] [address] Calcium [Mass/Vol] 9.7 mg/dL Normal 8.7-10.4 [facility] Comment on above: Performed By: #### C BC, MORPH, ANEU, GFR, DIFF, CMP ####[place] [address] Chloride [Moles/Vol] 107 mmol/L Normal 98-110 [facility] Comment on above: Performed By: #### C BC, MORPH, ANEU, GFR, DIFF, CMP ####[place] [address] CO2 [Moles/Vol] 26 mmol/L Normal 22-32 [facility] Comment on above: Performed By: #### C BC, MORPH, ANEU, GFR, DIFF, CMP ####[place] [address] Creatinine [Mass/Vol] 0.56 mg/dL Normal 0.50-1.20 [facility] Comment on above: Result Comment: Test ing performed on [employer] analyzer using enzymatic creatinine methodology. Performed By: #### C BC, MORPH, ANEU, GFR, DIFF, CMP ####[place] [address] Electrolyte Balance 7.0 mEq/L Normal 4.0-15.0 [facility] Comment on above: Performed By: #### C BC, MORPH, ANEU, GFR, DIFF, CMP ####[place] [address] Globulin 3.3 G/dL Normal 2.5-4.2 [facility] Comment on above: Performed By: #### C BC, MORPH, ANEU, GFR, DIFF, CMP ####[address] [address] Glucose [Mass/Vol] 108 mg/dL Normal 70-110 [facility] Comment on above: Performed By: #### C BC, MORPH, ANEU, GFR, DIFF, CMP ####[address] [address] Potassium [Moles/Vol] 3.7 mmol/L Normal 3.5-5.0 [facility] Comment on above: Performed By: #### C BC, MORPH, ANEU, GFR, DIFF, CMP ####[address] [address] Sodium [Moles/Vol] 140 mmol/L Normal 136-145 [facility] Comment on above: Performed By: #### C BC, MORPH, ANEU, GFR, DIFF, CMP ####[address] [address] Total Protein 7.0 G/dL Normal 5.7-8.2 [facility] Comment on above: Performed By: #### C BC, MORPH, ANEU, GFR, DIFF, CMP ####[address] [address] Urea nitrogen [Mass/Vol] 9.0 mg/dL Normal 8.0-22.0 [facility] Comment on above: Performed By: #### C BC, MORPH, ANEU, GFR, DIFF, CMP ####[address] [address] LABORATORYOrdered By: SYSTEM SYSTEM on 03-09-2025 Albumin [...] above: Interpretive Data: T esting performed on [employer] analyzer using enzymatic creatinine methodology. Dacrocytes LM [...] Basophil, Absolute 0.0 10 3/mcL Normal 0.0-0.3 [facility] Comment on above: Performed By: #### A DIFF, CMP, ANEU, CBC, GFR ####[address] [address] Basophils/100 WBC (Bld) 0.3 % Normal 0.0-2.5 [facility] MA[facility] Comment on above: Performed By: #### A DIFF, CMP, ANEU, CBC, GFR ####[address] [address] Eosinophil, Absolute 0.1 10 3/mcL Normal 0.0-0.7 [facility] Comment on above: Performed By: #### A DIFF, CMP, ANEU, CBC, GFR ####[address] [address] Eosinophils/100 WBC (Bld) 0.5 % Normal 0.0-6.0 [facility] Comment on above: Performed By: #### A DIFF, CMP, ANEU, CBC, GFR ####[address] [address] Lymphocyte, Absolute 1.2 10 3/mcL Normal 0.9-4.3 [facility] Comment on above: Performed By: #### A DIFF, CMP, ANEU, CBC, GFR ####[address] [address] Lymphocytes/100 WBC (Bld) 10.5 % Low 20.0-40.0 [facility] Comment on above: Performed By: #### A DIFF, CMP, ANEU, CBC, GFR ####[address] [address] Monocyte, Absolute 0.6 10 3/mcL Normal 0.1-1.4 [facility] Comment on above: Performed By: #### A DIFF, CMP, ANEU, CBC, GFR ####[address] [address] Monocytes/100 WBC (Bld) 5.4 % Normal 2.0-13.0 [facility] Comment on above: Performed By: #### A DIFF, CMP, ANEU, CBC, GFR ####[address] [address] Neutrophils/100 WBC (Bld) 83.3 % High 50.0-75.0 [facility] Comment on above: Performed By: #### A DIFF, CMP, ANEU, CBC, GFR ####[place] [address] .GFRon 02-23-2025 Estimated Glomerular Filtration Rate 117 ml/min/1.73sqm Normal [facility] Comment on above: Result Comment: Stag [...] DIFF, CMP, ANEU, CBC, GFR ####[place] [address] .NEUABSon 02-23-2025 Neutrophil, Absolute 9.5 10 3/mcL High 2.3-8.1 [facility] Comment on above: Performed By: #### A DIFF, CMP, ANEU, CBC, GFR ####[place] [id number] CBCon 02-23-2025 Erythrocyte distribution width (RBC) [Ratio] 23.0 % High 11.5-15.5 [facility] Comment on above: Performed By: #### A DIFF, CMP, ANEU, CBC, GFR ####[place] [address] Hematocrit (Bld) [Volume fraction] 31.6 % Low 34.0-46.0 [facility] Comment on above: Performed By: #### A DIFF, CMP, ANEU, CBC, GFR ####[place] [address] Hgb 9.7 G/dL Low 12.0-16.0 [facility] Comment on above: Performed By: #### A DIFF, CMP, ANEU, CBC, GFR ####[place] [address] MCH (RBC) [Entitic mass] 23.7 pg Low 27.0-33.0 [facility] Comment on above: Performed By: #### A DIFF, CMP, ANEU, CBC, GFR ####[place] [address] MCHC 30.5 G/dL Low 32.0-36.0 [facility] Comment on above: Performed By: #### A DIFF, CMP, ANEU, CBC, GFR ####[place] [address] MCV (RBC) [Entitic vol] 77.6 fL Low 80.0-99.0 [facility] Comment on above: Performed By: #### A DIFF, CMP, ANEU, CBC, GFR ####[place] [address] Platelet 281 10 3/mcL Normal 150-450 [facility] Comment on above: Performed By: #### A DIFF, CMP, ANEU, CBC, GFR ####[place] [address] Platelet mean volume (Bld) [Entitic vol] 8.8 fL Normal 6.6-10.5 [facility] Comment on above: Performed By: #### A DIFF, CMP, ANEU, CBC, GFR ####[place] [address] RBC 4.07 10 6/mcL Low 4.10-5.30 [facility] Comment on above: Performed By: #### A DIFF, CMP, ANEU, CBC, GFR ####[place] [address] WBC 11.4 10 3/mcL High 4.5-10.8 [facility] MAIN Comment on above: Performed By: #### A DIFF, CMP, ANEU, CBC, GFR ####[place] [address] CMPon 02-23-2025 Albumin Level 3.9 G/dL Normal 3.2-4.8 [facility] MAIN Comment on above: Performed By: #### A DIFF, CMP, ANEU, CBC, GFR ####[address] [address] Albumin/Globulin [Mass ratio] 1.2 {ratio} Normal 0.9-1.6 [facility] MAIN Comment on above: Performed By: #### A DIFF, CMP, ANEU, CBC, GFR ####[address] [address] ALP [Catalytic activity/Vol] 146 U/L High 38-126 [facility] MAIN Comment on above: Performed By: #### A DIFF, CMP, ANEU, CBC, GFR ####[address] [address] ALT [Catalytic activity/Vol] 13 U/L Normal 10-49 [facility] MAIN Comment on above: Performed By: #### A DIFF, CMP, ANEU, CBC, GFR ####[address] [address] AST [Catalytic activity/Vol] 16 U/L Normal 8-34 [facility] MAIN Comment on above: Performed By: #### A DIFF, CMP, ANEU, CBC, GFR ####[address] [address] Bili Total 0.50 mg/dL Normal 0.20-1.20 [facility] MAIN Comment on above: Result Comment: Use of this assay is not recommended for patients undergoing treatment with eltrombopag due to the potential for falsely elevated results. Performed By: #### A DIFF, CMP, ANEU, CBC, GFR ####[address] [address] BUN/Creatinine Ratio 15.4 ratio Normal 10.0-22.0 [facility] MAIN Comment on above: Performed By: #### A DIFF, CMP, ANEU, CBC, GFR ####[address] [address] Calcium [Mass/Vol] 9.3 mg/dL Normal 8.7-10.4 [facility] MAIN Comment on above: Performed By: #### A DIFF, CMP, ANEU, CBC, GFR ####[place] [id number] Chloride [Moles/Vol] 109 mmol/L Normal 98-110 [facility] MAIN Comment on above: Performed By: #### A DIFF, CMP, ANEU, CBC, GFR ####[address] [address] CO2 [Moles/Vol] 25 mmol/L Normal 22-32 [facility] MAIN Comment on above: Performed By: #### A DIFF, CMP, ANEU, CBC, GFR ####[place] [address] Creatinine [Mass/Vol] 0.52 mg/dL Normal 0.50-1.20 [facility] MAIN Comment on above: Result Comment: Test ing performed on Actionsoft analyzer using enzymatic creatinine methodology. Performed By: #### A DIFF, CMP, ANEU, CBC, GFR ####[place] [address] Electrolyte Balance 8.0 mEq/L Normal 4.0-15.0 [facility] MAIN Comment on above: Performed By: #### A DIFF, CMP, ANEU, CBC, GFR ####[place] [id number] Globulin 3.2 G/dL Normal 2.5-4.2 [facility] MAIN Comment on above: Performed By: #### A DIFF, CMP, ANEU, CBC, GFR ####[place] [id number] Glucose [Mass/Vol] 127 mg/dL High 70-110 [facility] MAIN Comment on above: Performed By: #### A DIFF, CMP, ANEU, CBC, GFR ####[place] [id number] Potassium [Moles/Vol] 3.7 mmol/L Normal 3.5-5.0 [facility] MAIN Comment on above: Performed By: #### A DIFF, CMP, ANEU, CBC, GFR ####[place] [phone] Sodium [Moles/Vol] 142 mmol/L Normal 136-145 [facility] MAIN Comment on above: Performed By: #### A DIFF, CMP, ANEU, CBC, GFR ####[id number] [place] [address] Total Protein 7.1 G/dL Normal 5.7-8.2 [facility] MAIN Comment on above: Performed By: #### A DIFF, CMP, ANEU, CBC, GFR ####[facility] [place] [address] Urea nitrogen [Mass/Vol] 8.0 mg/dL Normal 8.0-22.0 [facility] MAIN Comment on above: Performed By: #### A DIFF, CMP, ANEU, CBC, GFR ####[place] [id number] [place] [address] LABORATORYOrdered By: SYSTEM SYSTEM on 02-23-2025 Albumin [...] above: Interpretive Data: T esting performed on Action[employer] analyzer using enzymatic creatinine methodology. Electrolyte Balance [...] Estimated Glomerular Filtration Rate 118 ml/min/1.73sqm Normal [facility] MAIN Comment on above: Result Comment: Stag [...] CBC, MORPH, GFR, DIFF, ANEU ####[place] [address] .Manual Diffon 02-09-2025 Bands 5.0 % Normal 0.0-5.0 [facility] MAIN Comment on above: Performed By: #### C MP, CBC, MORPH, GFR, DIFF, ANEU ####[place] [address] Basophil %, Manual 0.0 % Normal 0.0-2.5 [facility] MAIN Comment on above: Performed By: #### C MP, CBC, MORPH, GFR, DIFF, ANEU ####[place] [address] Basophil, Abs Manual 0.0 10 3/mcL Normal 0.0-0.3 [facility] MAIN Comment on above: Performed By: #### C MP, CBC, MORPH, GFR, DIFF, ANEU ####[place] [address] Eosinophil %, Manual 0.0 % Normal 0.0-6.0 [facility] MAIN Comment on above: Performed By: #### C MP, CBC, MORPH, GFR, DIFF, ANEU ####[place] [address] Eosinophil, Abs Manual 0.0 10 3/mcL Normal 0.0-0.7 [facility] MAIN Comment on above: Performed By: #### C MP, CBC, MORPH, GFR, DIFF, ANEU ####[place] [address] Lymphocyte %, Manual 15.0 % Low 20.0-40.0 [facility] MAIN Comment on above: Performed By: #### C MP, CBC, MORPH, GFR, DIFF, ANEU ####[place] [address] [place], [place] [address] Lymphocyte, Abs Manual 1.6 10 3/mcL Normal 0.9-4.3 [facility] MAIN Comment on above: Performed By: #### C MP, CBC, MORPH, GFR, DIFF, ANEU ####[place] [address] Monocyte %, Manual 5.0 % Normal 2.0-13.0 [facility] MAIN Comment on above: Performed By: #### C MP, CBC, MORPH, GFR, DIFF, ANEU ####[place] [address] Monocyte, Abs Manual 0.5 10 3/mcL Normal 0.1-1.4 [facility] MAIN Comment on above: Performed By: #### C MP, CBC, MORPH, GFR, DIFF, ANEU ####[place] [address] Myelocyte 1.0 % Normal [facility] MAIN Comment on above: Performed By: #### C MP, CBC, MORPH, GFR, DIFF, ANEU ####[place] [address] Neutrophil %, Manual 74.0 % Normal 50.0-75.0 [facility] MAIN Comment on above: Performed By: #### C MP, CBC, MORPH, GFR, DIFF, ANEU ####[place] [address] Neutrophil, Abs Manual 8.2 10 3/mcL High 2.3-8.1 [facility] MAIN Comment on above: Performed By: #### C MP, CBC, MORPH, GFR, DIFF, ANEU ####[place] [address] Nucleated RBC 0.0 /100 WBC Normal [facility] MAIN Comment on above: Performed By: #### C MP, CBC, MORPH, GFR, DIFF, ANEU ####[place] [address] .Morphon 02-09-2025 Hypochrom 1+ Normal [facility] MAIN Comment on above: Performed By: #### C MP, CBC, MORPH, GFR, DIFF, ANEU ####[place] [address] Microcytosis 1+ Normal [facility] MAIN Comment on above: Performed By: #### C MP, CBC, MORPH, GFR, DIFF, ANEU ####[place] [address] Ovalocytes 1+ Normal [facility] MAIN Comment on above: Performed By: #### C MP, CBC, MORPH, GFR, DIFF, ANEU ####[place] [address] Platelet Estimate Normal [facility] MAIN Comment on above: Performed By: #### C MP, CBC, MORPH, GFR, DIFF, ANEU ####[place] [address] Poik 1+ Normal [facility] MAIN Comment on above: Performed By: #### C MP, CBC, MORPH, GFR, DIFF, ANEU ####[place] [address] Tear Cell 1+ [facility] MAIN Comment on above: Performed By: #### C MP, CBC, MORPH, GFR, DIFF, ANEU ####[place] [address] Toxic Gran 1+ [facility] MAIN Comment on above: Performed By: #### C MP, CBC, MORPH, GFR, DIFF, ANEU ####[place] [address] .NEUABSon 02-09-2025 Neutrophil, Absolute 8.2 10 3/mcL High 2.3-8.1 [facility] MAIN Comment on above: Performed By: #### C MP, CBC, MORPH, GFR, DIFF, ANEU ####[place] [address] CBCon 02-09-2025 Erythrocyte distribution width (RBC) [Ratio] 23.2 % High 11.5-15.5 [facility] MAIN Comment on above: Performed By: #### C MP, CBC, MORPH, GFR, DIFF, ANEU ####[place] [address] Hematocrit (Bld) [Volume fraction] 31.4 % Low 34.0-46.0 [facility] MAIN Comment on above: Performed By: #### C MP, CBC, MORPH, GFR, DIFF, ANEU ####[place] [address] Hgb 9.6 G/dL Low 12.0-16.0 [facility] MAIN Comment on above: Performed By: #### C MP, CBC, MORPH, GFR, DIFF, ANEU ####[place] [address] MCH (RBC) [Entitic mass] 23.8 pg Low 27.0-33.0 [facility] MAIN Comment on above: Performed By: #### C MP, CBC, MORPH, GFR, DIFF, ANEU ####[place] [address] MCHC 30.4 G/dL Low 32.0-36.0 [facility] MAIN Comment on above: Performed By: #### C MP, CBC, MORPH, GFR, DIFF, ANEU ####[place] [address] MCV (RBC) [Entitic vol] 78.2 fL Low 80.0-99.0 [facility] MAIN Comment on above: Performed By: #### C MP, CBC, MORPH, GFR, DIFF, ANEU ####[place] [address] Platelet 306 10 3/mcL Normal 150-450 [facility] MAIN Comment on above: Performed By: #### C MP, CBC, MORPH, GFR, DIFF, ANEU ####[place] [address] Platelet mean volume (Bld) [Entitic vol] 8.7 fL Normal 6.6-10.5 [facility] MAIN Comment on above: Performed By: #### C MP, CBC, MORPH, GFR, DIFF, ANEU ####[place] [address] RBC 4.02 10 6/mcL Low 4.10-5.30 [facility] MAIN Comment on above: Performed By: #### C MP, CBC, MORPH, GFR, DIFF, ANEU ####[place] [address] WBC 10.4 10 3/mcL Normal 4.5-10.8 [facility] MAIN Comment on above: Performed By: #### C MP, CBC, MORPH, GFR, DIFF, ANEU ####[place] [address] CMPon 02-09-2025 Albumin Level 3.8 G/dL Normal 3.2-4.8 [facility] MAIN Comment on above: Performed By: #### C MP, CBC, MORPH, GFR, DIFF, ANEU ####[place] [address] Albumin/Globulin [Mass ratio] 1.1 {ratio} Normal 0.9-1.6 [facility] MAIN Comment on above: Performed By: #### C MP, CBC, MORPH, GFR, DIFF, ANEU ####[place] [address] ALP [Catalytic activity/Vol] 134 U/L High 38-126 [facility] MAIN Comment on above: Performed By: #### C MP, CBC, MORPH, GFR, DIFF, ANEU ####[place] [address] ALT [Catalytic activity/Vol] 15 U/L Normal 10-49 [facility] MAIN Comment on above: Performed By: #### C MP, CBC, MORPH, GFR, DIFF, ANEU ####[place] [address] AST [Catalytic activity/Vol] 14 U/L Normal 8-34 [facility] MAIN Comment on above: Performed By: #### C MP, CBC, MORPH, GFR, DIFF, ANEU ####[place] [address] Bili Total 0.60 mg/dL Normal 0.20-1.20 [facility] MAIN Comment on above: Result Comment: Use of this assay is not recommended for patients undergoing treatment with eltrombopag due to the potential for falsely elevated results. Performed By: #### C MP, CBC, MORPH, GFR, DIFF, ANEU ####[place] [address] BUN/Creatinine Ratio 11.8 ratio Normal 10.0-22.0 [facility] MAIN Comment on above: Performed By: #### C MP, CBC, MORPH, GFR, DIFF, ANEU ####[address] [address] Calcium [Mass/Vol] 9.1 mg/dL Normal 8.7-10.4 [facility] MAIN Comment on above: Performed By: #### C MP, CBC, MORPH, GFR, DIFF, ANEU ####[address] [address] Chloride [Moles/Vol] 106 mmol/L Normal 98-110 [facility] MAIN Comment on above: Performed By: #### C MP, CBC, MORPH, GFR, DIFF, ANEU ####[address] [address] CO2 [Moles/Vol] 26 mmol/L Normal 22-32 [facility] MAIN Comment on above: Performed By: #### C MP, CBC, MORPH, GFR, DIFF, ANEU ####[place] [address] Creatinine [Mass/Vol] 0.51 mg/dL Normal 0.50-1.20 [facility] MAIN Comment on above: Result Comment: Test ing performed on [employer] analyzer using enzymatic creatinine methodology. Performed By: #### C MP, CBC, MORPH, GFR, DIFF, ANEU ####[place] [address] Electrolyte Balance 10.0 mEq/L Normal 4.0-15.0 [facility] MAIN Comment on above: Performed By: #### C MP, CBC, MORPH, GFR, DIFF, ANEU ####[address] [address] Globulin 3.4 G/dL Normal 2.5-4.2 [facility] MAIN Comment on above: Performed By: #### C MP, CBC, MORPH, GFR, DIFF, ANEU ####[place] [id number] Glucose [Mass/Vol] 97 mg/dL Normal 70-110 [facility] MAIN Comment on above: Performed By: #### C MP, CBC, MORPH, GFR, DIFF, ANEU ####[place] [address] Potassium [Moles/Vol] 3.8 mmol/L Normal 3.5-5.0 [facility] MAIN Comment on above: Performed By: #### C MP, CBC, MORPH, GFR, DIFF, ANEU ####[address] [address] Sodium [Moles/Vol] 142 mmol/L Normal 136-145 [facility] MAIN Comment on above: Performed By: #### C MP, CBC, MORPH, GFR, DIFF, ANEU ####[address] [address] Total Protein 7.2 G/dL Normal 5.7-8.2 [facility] MAIN Comment on above: Performed By: #### C MP, CBC, MORPH, GFR, DIFF, ANEU ####[address] [address] Urea nitrogen [Mass/Vol] 6.0 mg/dL Low 8.0-22.0 [facility] MAIN Comment on above: Performed By: #### C MP, CBC, MORPH, GFR, DIFF, ANEU ####[place] [address] LABORATORYOrdered By: SYSTEM SYSTEM on 02-09-2025 Albumin [...] above: Interpretive Data: T esting performed on [employer] analyzer using enzymatic creatinine methodology. Dacrocytes LM [...] Estimated Glomerular Filtration Rate 117 ml/min/1.73sqm Normal [facility] MAIN Comment on above: Result Comment: Stag [...] DIFF, GFR, CMP, ANEU, MORPH ####[place] [address] .Manual Diffon 01-26-2025 Bands 1.0 % Normal 0.0-5.0 [facility] MAIN Comment on above: Performed By: #### C BC, DIFF, GFR, CMP, ANEU, MORPH ####[place] [address] Basophil %, Manual 1.0 % Normal 0.0-2.5 [facility] MAIN Comment on above: Performed By: #### C BC, DIFF, GFR, CMP, ANEU, MORPH ####[place] [id number] Basophil, Abs Manual 0.1 10 3/mcL Normal 0.0-0.3 [facility] MAIN Comment on above: Performed By: #### C BC, DIFF, GFR, CMP, ANEU, MORPH ####[place] [address] Eosinophil %, Manual 0.0 % Normal 0.0-6.0 [facility] MAIN Comment on above: Performed By: #### C BC, DIFF, GFR, CMP, ANEU, MORPH ####[place] [id number] Eosinophil, Abs Manual 0.0 10 3/mcL Normal 0.0-0.7 [facility] MAIN Comment on above: Performed By: #### C BC, DIFF, GFR, CMP, ANEU, MORPH ####[place] [address] Lymphocyte %, Manual 11.0 % Low 20.0-40.0 [facility] MAIN Comment on above: Performed By: #### C BC, DIFF, GFR, CMP, ANEU, MORPH ####[place] [address] Lymphocyte, Abs Manual 1.4 10 3/mcL Normal 0.9-4.3 [facility] MAIN Comment on above: Performed By: #### C BC, DIFF, GFR, CMP, ANEU, MORPH ####[place] [address] Monocyte %, Manual 6.0 % Normal 2.0-13.0 [facility] MAIN Comment on above: Performed By: #### C BC, DIFF, GFR, CMP, ANEU, MORPH ####[place] [address] Monocyte, Abs Manual 0.8 10 3/mcL Normal 0.1-1.4 [facility] MAIN Comment on above: Performed By: #### C BC, DIFF, GFR, CMP, ANEU, MORPH ####[place] [address] Neutrophil %, Manual 81.0 % High 50.0-75.0 [facility] MAIN Comment on above: Performed By: #### C BC, DIFF, GFR, CMP, ANEU, MORPH ####[place] [address] Neutrophil, Abs Manual 10.2 10 3/mcL High 2.3-8.1 [facility] MAIN Comment on above: Performed By: #### C BC, DIFF, GFR, CMP, ANEU, MORPH ####[place] [address] Nucleated RBC 1.0 /100 WBC Normal [facility] MAIN Comment on above: Performed By: #### C BC, DIFF, GFR, CMP, ANEU, MORPH ####[place] [address] .Morphon 01-26-2025 Anisocytosis Ql (Bld) 2+ Normal [facility] MAIN Comment on above: Performed By: #### C BC, DIFF, GFR, CMP, ANEU, MORPH ####[place] [address] Microcytosis 1+ Normal [facility] MAIN Comment on above: Performed By: #### C BC, DIFF, GFR, CMP, ANEU, MORPH ####[place] [address] Ovalocytes 1+ Normal [facility] MAIN Comment on above: Performed By: #### C BC, DIFF, GFR, CMP, ANEU, MORPH ####[place] [address] Platelet Estimate Normal [facility] MAIN Comment on above: Performed By: #### C BC, DIFF, GFR, CMP, ANEU, MORPH ####[place] [address] Poik 1+ Normal [facility] MAIN Comment on above: Performed By: #### C BC, DIFF, GFR, CMP, ANEU, MORPH ####[place] [address] Toxic Gran 1+ Normal [facility] MAIN Comment on above: Performed By: #### C BC, DIFF, GFR, CMP, ANEU, MORPH ####[place] [address] .NEUABSon 01-26-2025 Neutrophil, Absolute 10.1 10 3/mcL High 2.3-8.1 [facility] MAIN Comment on above: Performed By: #### C BC, DIFF, GFR, CMP, ANEU, MORPH ####[place] [address] CBCon 01-26-2025 Erythrocyte distribution width (RBC) [Ratio] 23.3 % High 11.5-15.5 [facility] MAIN Comment on above: Performed By: #### C BC, DIFF, GFR, CMP, ANEU, MORPH ####[place] [address] Hematocrit (Bld) [Volume fraction] 31.5 % Low 34.0-46.0 [facility] MAIN Comment on above: Performed By: #### C BC, DIFF, GFR, CMP, ANEU, MORPH ####[place] [address] Hgb 9.6 G/dL Low 12.0-16.0 [facility] MAIN Comment on above: Performed By: #### C BC, DIFF, GFR, CMP, ANEU, MORPH ####[place] [address] MCH (RBC) [Entitic mass] 23.7 pg Low 27.0-33.0 [facility] MAIN Comment on above: Performed By: #### C BC, DIFF, GFR, CMP, ANEU, MORPH ####[place] [address] MCHC 30.4 G/dL Low 32.0-36.0 [facility] MAIN Comment on above: Performed By: #### C BC, DIFF, GFR, CMP, ANEU, MORPH ####[place] [address] MCV (RBC) [Entitic vol] 77.7 fL Low 80.0-99.0 [facility] MAIN Comment on above: Performed By: #### C BC, DIFF, GFR, CMP, ANEU, MORPH ####[place] [address] Platelet 266 10 3/mcL Normal 150-450 [facility] MAIN Comment on above: Performed By: #### C BC, DIFF, GFR, CMP, ANEU, MORPH ####[place] [address] Platelet mean volume (Bld) [Entitic vol] 8.7 fL Normal 6.6-10.5 [facility] MAIN Comment on above: Performed By: #### C BC, DIFF, GFR, CMP, ANEU, MORPH ####[place] [address] RBC 4.05 10 6/mcL Low 4.10-5.30 [facility] MAIN Comment on above: Performed By: #### C BC, DIFF, GFR, CMP, ANEU, MORPH ####[place] [address] WBC 12.5 10 3/mcL High 4.5-10.8 [facility] MAIN Comment on above: Performed By: #### C BC, DIFF, GFR, CMP, ANEU, MORPH ####[place] [address] CMPon 01-26-2025 Albumin Level 4.0 G/dL Normal 3.2-4.8 [facility] MAIN Comment on above: Performed By: #### C BC, DIFF, GFR, CMP, ANEU, MORPH ####[place] [address] Albumin/Globulin [Mass ratio] 1.3 {ratio} Normal 0.9-1.6 [facility] MAIN Comment on above: Performed By: #### C BC, DIFF, GFR, CMP, ANEU, MORPH ####[place] [address] ALP [Catalytic activity/Vol] 149 U/L High 38-126 [facility] MAIN Comment on above: Performed By: #### C BC, DIFF, GFR, CMP, ANEU, MORPH ####[address] [address] ALT [Catalytic activity/Vol] 14 U/L Normal 10-49 [facility] MAIN Comment on above: Performed By: #### C BC, DIFF, GFR, CMP, ANEU, MORPH ####[address] [address] AST [Catalytic activity/Vol] 18 U/L Normal 8-34 [facility] MAIN Comment on above: Performed By: #### C BC, DIFF, GFR, CMP, ANEU, MORPH ####[place] [id number] Bili Total 0.70 mg/dL Normal 0.20-1.20 [facility] MAIN Comment on above: Result Comment: Use of this assay is not recommended for patients undergoing treatment with eltrombopag due to the potential for falsely elevated results. Performed By: #### C BC, DIFF, GFR, CMP, ANEU, MORPH ####[place] [address] BUN/Creatinine Ratio 21.2 ratio Normal 10.0-22.0 [facility] MAIN Comment on above: Performed By: #### C BC, DIFF, GFR, CMP, ANEU, MORPH ####[place] [address] Calcium [Mass/Vol] 9.2 mg/dL Normal 8.7-10.4 [facility] MAIN Comment on above: Performed By: #### C BC, DIFF, GFR, CMP, ANEU, MORPH ####[place] [id number] Chloride [Moles/Vol] 109 mmol/L Normal 98-110 [facility] MAIN Comment on above: Performed By: #### C BC, DIFF, GFR, CMP, ANEU, MORPH ####[place] [id number] CO2 [Moles/Vol] 25 mmol/L Normal 22-32 [facility] MAIN Comment on above: Performed By: #### C BC, DIFF, GFR, CMP, ANEU, MORPH ####[place] [address] [place], [place] [address] Creatinine [Mass/Vol] 0.52 mg/dL Normal 0.50-1.20 [facility] MAIN Comment on above: Result Comment: Test ing performed on [employer] analyzer using enzymatic creatinine methodology. Performed By: #### C BC, DIFF, GFR, CMP, ANEU, MORPH ####[address] [address] Electrolyte Balance 5.0 mEq/L Normal 4.0-15.0 [facility] MAIN Comment on above: Performed By: #### C BC, DIFF, GFR, CMP, ANEU, MORPH ####[address] [address] Globulin 3.1 G/dL Normal 2.5-4.2 [facility] MAIN Comment on above: Performed By: #### C BC, DIFF, GFR, CMP, ANEU, MORPH ####[address] [address] Glucose [Mass/Vol] 111 mg/dL High 70-110 [facility] MAIN Comment on above: Performed By: #### C BC, DIFF, GFR, CMP, ANEU, MORPH ####[address] [address] Potassium [Moles/Vol] 3.6 mmol/L Normal 3.5-5.0 [facility] MAIN Comment on above: Performed By: #### C BC, DIFF, GFR, CMP, ANEU, MORPH ####[address] [address] Sodium [Moles/Vol] 139 mmol/L Normal 136-145 [facility] MAIN Comment on above: Performed By: #### C BC, DIFF, GFR, CMP, ANEU, MORPH ####[address] [address] Total Protein 7.1 G/dL Normal 5.7-8.2 [facility] MAIN Comment on above: Performed By: #### C BC, DIFF, GFR, CMP, ANEU, MORPH ####[address] [address] Urea nitrogen [Mass/Vol] 11.0 mg/dL Normal 8.0-22.0 [facility] MAIN Comment on above: Performed By: #### C BC, DIFF, GFR, CMP, ANEU, MORPH ####[place] [address] LABORATORYOrdered By: SYSTEM SYSTEM on 01-26-2025 Albumin [...] above: Interpretive Data: T esting performed on [employer] analyzer using enzymatic creatinine methodology. Electrolyte Balance [...] Estimated Glomerular Filtration Rate 116 ml/min/1.73sqm Normal [facility] Comment on above: Result Comment: Stag [...] CBC, CMP, MORPH, ANEU, CEA ####[place] [id number] .Manual Diffon 01-12-2025 Bands 3.0 % Normal 0.0-5.0 [facility] Comment on above: Performed By: #### G FR, DIFF, CBC, CMP, MORPH, ANEU, CEA ####[place] [address] Basophil %, Manual 0.0 % Normal 0.0-2.5 [facility] Comment on above: Performed By: #### G FR, DIFF, CBC, CMP, MORPH, ANEU, CEA ####[place] [address] Basophil, Abs Manual 0.0 10 3/mcL Normal 0.0-0.3 [facility] Comment on above: Performed By: #### G FR, DIFF, CBC, CMP, MORPH, ANEU, CEA ####[place] [address] Eosinophil %, Manual 0.0 % Normal 0.0-6.0 [facility] Comment on above: Performed By: #### G FR, DIFF, CBC, CMP, MORPH, ANEU, CEA ####[place] [address] [place], [place] [address] Eosinophil, Abs Manual 0.0 10 3/mcL Normal 0.0-0.7 [facility] Comment on above: Performed By: #### G FR, DIFF, CBC, CMP, MORPH, ANEU, CEA ####[address] [address] Lymphocyte %, Manual 16.0 % Low 20.0-40.0 [facility] Comment on above: Performed By: #### G FR, DIFF, CBC, CMP, MORPH, ANEU, CEA ####[address] [address] Lymphocyte, Abs Manual 2.0 10 3/mcL Normal 0.9-4.3 [facility] Comment on above: Performed By: #### G FR, DIFF, CBC, CMP, MORPH, ANEU, CEA ####[place] [address] Metamyelocyte 1.0 % Normal [facility] Comment on above: Performed By: #### G FR, DIFF, CBC, CMP, MORPH, ANEU, CEA ####[place] [address] Monocyte %, Manual 2.0 % Normal 2.0-13.0 [facility] Comment on above: Performed By: #### G FR, DIFF, CBC, CMP, MORPH, ANEU, CEA ####[address] [address] Monocyte, Abs Manual 0.2 10 3/mcL Normal 0.1-1.4 [facility] MAIN Comment on above: Performed By: #### G FR, DIFF, CBC, CMP, MORPH, ANEU, CEA ####[address] [address] Neutrophil %, Manual 78.0 % High 50.0-75.0 [facility] MAIN Comment on above: Performed By: #### G FR, DIFF, CBC, CMP, MORPH, ANEU, CEA ####[address] [address] Neutrophil, Abs Manual 10.1 10 3/mcL High 2.3-8.1 [facility] MAIN Comment on above: Performed By: #### G FR, DIFF, CBC, CMP, MORPH, ANEU, CEA ####[place] [address] Nucleated RBC 2.0 /100 WBC Normal [facility] MAIN Comment on above: Performed By: #### G FR, DIFF, CBC, CMP, MORPH, ANEU, CEA ####[place] [address] .Morphon 01-12-2025 Anisocytosis Ql (Bld) 2+ Normal [facility] MAIN Comment on above: Performed By: #### G FR, DIFF, CBC, CMP, MORPH, ANEU, CEA ####[place] [address] Hypochrom 1+ Normal [facility] MAIN Comment on above: Performed By: #### G FR, DIFF, CBC, CMP, MORPH, ANEU, CEA ####[place] [address] Microcytosis 1+ Normal [facility] MAIN Comment on above: Performed By: #### G FR, DIFF, CBC, CMP, MORPH, ANEU, CEA ####[place] [address] Ovalocytes 1+ [facility] MAIN Comment on above: Performed By: #### G FR, DIFF, CBC, CMP, MORPH, ANEU, CEA ####[place] [address] Platelet Estimate Normal [facility] MAIN Comment on above: Performed By: #### G FR, DIFF, CBC, CMP, MORPH, ANEU, CEA ####[place] [address] Poik 1+ [facility] MAIN Comment on above: Performed By: #### G FR, DIFF, CBC, CMP, MORPH, ANEU, CEA ####[place] [address] Polychrom 1+ [facility] MAIN Comment on above: Performed By: #### G FR, DIFF, CBC, CMP, MORPH, ANEU, CEA ####[place] [address] Tear Cell 1+ Normal [facility] MAIN Comment on above: Performed By: #### G FR, DIFF, CBC, CMP, MORPH, ANEU, CEA ####[place] [id number] .NEUABSon 01-12-2025 Neutrophil, Absolute 10.0 10 3/mcL High 2.3-8.1 [facility] MAIN Comment on above: Performed By: #### G FR, DIFF, CBC, CMP, MORPH, ANEU, CEA ####[place] [address] CBCon 01-12-2025 Erythrocyte distribution width (RBC) [Ratio] 23.0 % High 11.5-15.5 [facility] MAIN Comment on above: Performed By: #### G FR, DIFF, CBC, CMP, MORPH, ANEU, CEA ####[place] [address] Hematocrit (Bld) [Volume fraction] 30.3 % Low 34.0-46.0 [facility] MAIN Comment on above: Performed By: #### G FR, DIFF, CBC, CMP, MORPH, ANEU, CEA ####[place] [address] Hgb 9.1 G/dL Low 12.0-16.0 [facility] MAIN Comment on above: Performed By: #### G FR, DIFF, CBC, CMP, MORPH, ANEU, CEA ####[place] [address] MCH (RBC) [Entitic mass] 23.1 pg Low 27.0-33.0 [facility] MAIN Comment on above: Performed By: #### G FR, DIFF, CBC, CMP, MORPH, ANEU, CEA ####[place] [address] MCHC 30.2 G/dL Low 32.0-36.0 [facility] MAIN Comment on above: Performed By: #### G FR, DIFF, CBC, CMP, MORPH, ANEU, CEA ####[place] [address] MCV (RBC) [Entitic vol] 76.4 fL Low 80.0-99.0 [facility] MAIN Comment on above: Performed By: #### G FR, DIFF, CBC, CMP, MORPH, ANEU, CEA ####[place] [id number] [place] [address] Platelet 262 10 3/mcL Normal 150-450 [facility] MAIN Comment on above: Performed By: #### G FR, DIFF, CBC, CMP, MORPH, ANEU, CEA ####[address] [address] Platelet mean volume (Bld) [Entitic vol] 8.7 fL Normal 6.6-10.5 [facility] MAIN Comment on above: Performed By: #### G FR, DIFF, CBC, CMP, MORPH, ANEU, CEA ####[place] [address] RBC 3.96 10 6/mcL Low 4.10-5.30 [facility] MAIN Comment on above: Performed By: #### G FR, DIFF, CBC, CMP, MORPH, ANEU, CEA ####[place] [id number] WBC 12.4 10 3/mcL High 4.5-10.8 [facility] MAIN Comment on above: Performed By: #### G FR, DIFF, CBC, CMP, MORPH, ANEU, CEA ####[place] [address] CEAon 01-12-2025 CEA 21.0 ng/mL High 0.0-3.0 [facility] MAIN Comment on above: Result Comment: CEA Reference Range for SMOKERS: 0.0 - 5.0 ng/mL.Testing performed on the STYLIGHT analyzer usingdirect chemiluminesent technology. Patient resultsdetermined by assays using different manufacturers for methods may not be comparable. Performed By: #### G FR, DIFF, CBC, CMP, MORPH, ANEU, CEA ####[address] [address] CMPon 01-12-2025 Albumin Level 3.7 G/dL Normal 3.2-4.8 [facility] MAIN Comment on above: Performed By: #### G FR, DIFF, CBC, CMP, MORPH, ANEU, CEA ####[place] [address] Albumin/Globulin [Mass ratio] 1.2 {ratio} Normal 0.9-1.6 [facility] MAIN Comment on above: Performed By: #### G FR, DIFF, CBC, CMP, MORPH, ANEU, CEA ####[place] [address] ALP [Catalytic activity/Vol] 135 U/L High 38-126 [facility] MAIN Comment on above: Performed By: #### G FR, DIFF, CBC, CMP, MORPH, ANEU, CEA ####[place] [address] ALT [Catalytic activity/Vol] 16 U/L Normal 10-49 [facility] MAIN Comment on above: Performed By: #### G FR, DIFF, CBC, CMP, MORPH, ANEU, CEA ####[place] [address] AST/SGOT <8 Low 8-34 [facility] MAIN Comment on above: Performed By: #### G FR, DIFF, CBC, CMP, MORPH, ANEU, CEA ####[place] [address] Bili Total 0.60 mg/dL Normal 0.20-1.20 [facility] MAIN Comment on above: Result Comment: Use of this assay is not recommended for patients undergoing treatment with eltrombopag due to the potential for falsely elevated results. Performed By: #### G FR, DIFF, CBC, CMP, MORPH, ANEU, CEA ####[place] [address] BUN/Creatinine Ratio 20.4 ratio Normal 10.0-22.0 [facility] MAIN Comment on above: Performed By: #### G FR, DIFF, CBC, CMP, MORPH, ANEU, CEA ####[place] [address] Calcium [Mass/Vol] 8.5 mg/dL Low 8.7-10.4 [facility] MAIN Comment on above: Performed By: #### G FR, DIFF, CBC, CMP, MORPH, ANEU, CEA ####[place] [address] Chloride [Moles/Vol] 106 mmol/L Normal 98-110 [facility] MAIN Comment on above: Performed By: #### G FR, DIFF, CBC, CMP, MORPH, ANEU, CEA ####[place] [address] CO2 [Moles/Vol] 26 mmol/L Normal 22-32 [facility] MAIN Comment on above: Performed By: #### G FR, DIFF, CBC, CMP, MORPH, ANEU, CEA ####[place] [address] Creatinine [Mass/Vol] 0.54 mg/dL Normal 0.50-1.20 [facility] MAIN Comment on above: Result Comment: Test ing performed on Actionsoft analyzer using enzymatic creatinine methodology. Performed By: #### G FR, DIFF, CBC, CMP, MORPH, ANEU, CEA ####[place] [address] Electrolyte Balance 11.0 mEq/L Normal 4.0-15.0 [facility] MAIN Comment on above: Performed By: #### G FR, DIFF, CBC, CMP, MORPH, ANEU, CEA ####[place] [address] Globulin 3.1 G/dL Normal 2.5-4.2 [facility] MAIN Comment on above: Performed By: #### G FR, DIFF, CBC, CMP, MORPH, ANEU, CEA ####[place] [address] Glucose [Mass/Vol] 100 mg/dL Normal 70-110 [facility] MAIN Comment on above: Performed By: #### G FR, DIFF, CBC, CMP, MORPH, ANEU, CEA ####[place] [address] Potassium [Moles/Vol] 3.7 mmol/L Normal 3.5-5.0 [facility] MAIN Comment on above: Performed By: #### G FR, DIFF, CBC, CMP, MORPH, ANEU, CEA ####[place] [address] Sodium [Moles/Vol] 143 mmol/L Normal 136-145 [facility] MAIN Comment on above: Performed By: #### G FR, DIFF, CBC, CMP, MORPH, ANEU, CEA ####[facility] [place] [address] Total Protein 6.8 G/dL Normal 5.7-8.2 [facility] MAIN Comment on above: Performed By: #### G FR, DIFF, CBC, CMP, MORPH, ANEU, CEA ####[facility] [place] [address] Urea nitrogen [Mass/Vol] 11.0 mg/dL Normal 8.0-22.0 [facility] MAIN Comment on above: Performed By: #### G FR, DIFF, CBC, CMP, MORPH, ANEU, CEA ####[facility] [place] [address] LABORATORYOrdered By: Farrah Espinosa on 01-12-2025 Albumin [...] above: Interpretive Data: T esting performed on Actionsoft analyzer using enzymatic creatinine methodology. Electrolyte Balance [...] 10.8 10^3/mcL AH Workflow SS LABORATORYOrdered By: Emeli Cerna on 01-12-2025 Carcinoembryonic Ag [Mass/Vol] 21.0 ng/mL High 0.0 - 3.0 ng/mL Chemistry S Comment on above: Interpretive Data: C EA Reference Range for SMOKERS: 0.0 - 5.0 ng/mL. Testing performed on the FiberLight IM analyzer using direct chemiluminesent technology. Patient results determined by assays using different manufacturers for methods may not be comparable. IR PORT CHECK W/GUIDEon 12-29 IR PORT CHECK W/GUIDE Normal [facility] MAIN LABORATORYOrdered By: Tammy Thompson on 01-08-2025 Beta HCG ( test) Ql (U) Negative (01/08/25 8:35 AM) [facility] Work Phone: CT ABDOMEN/PELVIS W/CONTRAST on 01-07-2025 CT ABDOMEN/PELVIS W/CONTRAST Normal [facility] MAIN CT THORAX W/ CONTRASTon 12-29 CT THORAX W/ CONTRAST Normal [facility] MAIN .GFRon 12-29-2024 Estimated Glomerular Filtration Rate 120 ml/min/1.73sqm Normal [facility] MAIN Comment on above: Result Comment: Stag [...] GFR, CBC, DIFF, ANEU, CMP ####[place] [id number] .Manual Diffon 12-29-2024 Bands 4.0 % Normal 0.0-5.0 [facility] MAIN Comment on above: Performed By: #### M ORPH, GFR, CBC, DIFF, ANEU, CMP ####[place] [address] Basophil %, Manual 0.0 % Normal 0.0-2.5 [facility] MAIN Comment on above: Performed By: #### M ORPH, GFR, CBC, DIFF, ANEU, CMP ####[place] [address] Basophil, Abs Manual 0.0 10 3/mcL Normal 0.0-0.3 [facility] MAIN Comment on above: Performed By: #### M ORPH, GFR, CBC, DIFF, ANEU, CMP ####[place] [address] Eosinophil %, Manual 0.0 % Normal 0.0-6.0 [facility] MAIN Comment on above: Performed By: #### M ORPH, GFR, CBC, DIFF, ANEU, CMP ####[place] [address] Eosinophil, Abs Manual 0.0 10 3/mcL Normal 0.0-0.7 [facility] MAIN Comment on above: Performed By: #### M ORPH, GFR, CBC, DIFF, ANEU, CMP ####[address] [address] Lymphocyte %, Manual 13.0 % Low 20.0-40.0 [facility] MAIN Comment on above: Performed By: #### M ORPH, GFR, CBC, DIFF, ANEU, CMP ####[address] [address] Lymphocyte, Abs Manual 1.1 10 3/mcL Normal 0.9-4.3 [facility] MAIN Comment on above: Performed By: #### M ORPH, GFR, CBC, DIFF, ANEU, CMP ####[address] [address] Monocyte %, Manual 1.0 % Low 2.0-13.0 [facility] MAIN Comment on above: Performed By: #### M ORPH, GFR, CBC, DIFF, ANEU, CMP ####[place] [id number] Monocyte, Abs Manual 0.1 10 3/mcL Normal 0.1-1.4 [facility] MAIN Comment on above: Performed By: #### M ORPH, GFR, CBC, DIFF, ANEU, CMP ####[place] [id number] Neutrophil %, Manual 82.0 % High 50.0-75.0 [facility] MAIN Comment on above: Performed By: #### M ORPH, GFR, CBC, DIFF, ANEU, CMP ####[address] [address] Neutrophil, Abs Manual 6.8 10 3/mcL Normal 2.3-8.1 [facility] MAIN Comment on above: Performed By: #### M ORPH, GFR, CBC, DIFF, ANEU, CMP ####[address] [address] Nucleated RBC 0.0 /100 WBC Normal [facility] MAIN Comment on above: Performed By: #### M ORPH, GFR, CBC, DIFF, ANEU, CMP ####[address] [address] .Morphon 12-29-2024 Platelet Estimate Normal Normal [facility] MAIN Comment on above: Performed By: #### M ORPH, GFR, CBC, DIFF, ANEU, CMP ####[place] [address] Anisocytosis Ql (Bld) 2+ Normal [facility] MAIN Comment on above: Performed By: #### M ORPH, GFR, CBC, DIFF, ANEU, CMP ####[place] [address] Microcytosis 1+ Normal [facility] MAIN Comment on above: Performed By: #### M ORPH, GFR, CBC, DIFF, ANEU, CMP ####[place] [address] Ovalocytes 1+ Normal [facility] MAIN Comment on above: Performed By: #### M ORPH, GFR, CBC, DIFF, ANEU, CMP ####[place] [address] Poik 1+ Normal [facility] MAIN Comment on above: Performed By: #### M ORPH, GFR, CBC, DIFF, ANEU, CMP ####[place] [address] Polychrom 1+ Normal [facility] MAIN Comment on above: Performed By: #### M ORPH, GFR, CBC, DIFF, ANEU, CMP ####[place] [address] .NEUABSon 12-29-2024 Neutrophil, Absolute 5.9 10 3/mcL Normal 2.3-8.1 [facility] MAIN Comment on above: Performed By: #### M ORPH, GFR, CBC, DIFF, ANEU, CMP ####[place] [address] CBCon 12-29-2024 Erythrocyte distribution width (RBC) [Ratio] 22.8 % High 11.5-15.5 [facility] MAIN Comment on above: Performed By: #### M ORPH, GFR, CBC, DIFF, ANEU, CMP ####[place] [address] Hematocrit (Bld) [Volume fraction] 30.4 % Low 34.0-46.0 [facility] MAIN Comment on above: Performed By: #### M ORPH, GFR, CBC, DIFF, ANEU, CMP ####[place] [address] Hgb 9.5 G/dL Low 12.0-16.0 [facility] MAIN Comment on above: Performed By: #### M ORPH, GFR, CBC, DIFF, ANEU, CMP ####[place] [address] MCH (RBC) [Entitic mass] 24.2 pg Low 27.0-33.0 [facility] MAIN Comment on above: Performed By: #### M ORPH, GFR, CBC, DIFF, ANEU, CMP ####[place] [address] MCHC 31.3 G/dL Low 32.0-36.0 [facility] MAIN Comment on above: Performed By: #### M ORPH, GFR, CBC, DIFF, ANEU, CMP ####[place] [address] MCV (RBC) [Entitic vol] 77.2 fL Low 80.0-99.0 [facility] MAIN Comment on above: Performed By: #### M ORPH, GFR, CBC, DIFF, ANEU, CMP ####[place] [address] Platelet 340 10 3/mcL Normal 150-450 [facility] MAIN Comment on above: Performed By: #### M ORPH, GFR, CBC, DIFF, ANEU, CMP ####[place] [address] Platelet mean volume (Bld) [Entitic vol] 8.7 fL Normal 6.6-10.5 [facility] MAIN Comment on above: Performed By: #### M ORPH, GFR, CBC, DIFF, ANEU, CMP ####[place] [address] RBC 3.93 10 6/mcL Low 4.10-5.30 [facility] MAIN Comment on above: Performed By: #### M ORPH, GFR, CBC, DIFF, ANEU, CMP ####[place] [address] WBC 8.1 10 3/mcL Normal 4.5-10.8 [facility] MAIN Comment on above: Performed By: #### M ORPH, GFR, CBC, DIFF, ANEU, CMP ####[place] [address] CMPon 12-29-2024 Albumin Level 3.8 G/dL Normal 3.2-4.8 [facility] MAIN Comment on above: Performed By: #### M ORPH, GFR, CBC, DIFF, ANEU, CMP ####[place] [address] Albumin/Globulin [Mass ratio] 1.1 {ratio} Normal 0.9-1.6 [facility] MAIN Comment on above: Performed By: #### M ORPH, GFR, CBC, DIFF, ANEU, CMP ####[place] [address] ALP [Catalytic activity/Vol] 134 U/L High 38-126 [facility] MAIN Comment on above: Performed By: #### M ORPH, GFR, CBC, DIFF, ANEU, CMP ####[place] [address] ALT [Catalytic activity/Vol] 18 U/L Normal 10-49 [facility] MAIN Comment on above: Performed By: #### M ORPH, GFR, CBC, DIFF, ANEU, CMP ####[place] [address] AST [Catalytic activity/Vol] 19 U/L Normal 8-34 [facility] MAIN Comment on above: Performed By: #### M ORPH, GFR, CBC, DIFF, ANEU, CMP ####[place] [address] Bili Total 0.50 mg/dL Normal 0.20-1.20 [facility] MAIN Comment on above: Result Comment: Use of this assay is not recommended for patients undergoing treatment with eltrombopag due to the potential for falsely elevated results. Performed By: #### M ORPH, GFR, CBC, DIFF, ANEU, CMP ####[place] [address] BUN/Creatinine Ratio 18.8 ratio Normal 10.0-22.0 [facility] MAIN Comment on above: Performed By: #### M ORPH, GFR, CBC, DIFF, ANEU, CMP ####[address] [address] Calcium [Mass/Vol] 9.6 mg/dL Normal 8.7-10.4 [facility] MAIN Comment on above: Performed By: #### M ORPH, GFR, CBC, DIFF, ANEU, CMP ####[place] [id number] Chloride [Moles/Vol] 107 mmol/L Normal 98-110 [facility] MAIN Comment on above: Performed By: #### M ORPH, GFR, CBC, DIFF, ANEU, CMP ####[place] [id number] CO2 [Moles/Vol] 24 mmol/L Normal 22-32 [facility] MAIN Comment on above: Performed By: #### M ORPH, GFR, CBC, DIFF, ANEU, CMP ####[place] [address] Creatinine [Mass/Vol] 0.48 mg/dL Low 0.50-1.20 [facility] MAIN Comment on above: Result Comment: Test ing performed on Actionsoft analyzer using enzymatic creatinine methodology. Performed By: #### M ORPH, GFR, CBC, DIFF, ANEU, CMP ####[place] [address] Electrolyte Balance 11.0 mEq/L Normal 4.0-15.0 [facility] MAIN Comment on above: Performed By: #### M ORPH, GFR, CBC, DIFF, ANEU, CMP ####[address] [address] Globulin 3.4 G/dL Normal 2.5-4.2 [facility] MAIN Comment on above: Performed By: #### M ORPH, GFR, CBC, DIFF, ANEU, CMP ####[place] [id number] Glucose [Mass/Vol] 98 mg/dL Normal 70-110 [facility] MAIN Comment on above: Performed By: #### M ORPH, GFR, CBC, DIFF, ANEU, CMP ####[place] [address] [place] [address] Potassium [Moles/Vol] 3.6 mmol/L Normal 3.5-5.0 [facility] MAIN Comment on above: Performed By: #### M ORPH, GFR, CBC, DIFF, ANEU, CMP ####[address] [address] Sodium [Moles/Vol] 142 mmol/L Normal 136-145 [facility] MAIN Comment on above: Performed By: #### M ORPH, GFR, CBC, DIFF, ANEU, CMP ####[address] [address] Total Protein 7.2 G/dL Normal 5.7-8.2 [facility] MA[facility] Comment on above: Performed By: #### M ORPH, GFR, CBC, DIFF, ANEU, CMP ####[address] [address] Urea nitrogen [Mass/Vol] 9.0 mg/dL Normal 8.0-22.0 [facility] MAIN Comment on above: Performed By: #### M ORPH, GFR, CBC, DIFF, ANEU, CMP ####[place] [address] LABORATORYOrdered By: SYSTEM SYSTEM on 12-29-2024 Albumin [...] above: Interpretive Data: T esting performed on Actionsoft analyzer using enzymatic creatinine methodology. Electrolyte Balance [...] Estimated Glomerular Filtration Rate 119 ml/min/1.73sqm Normal [facility] MA[facility] Comment on above: Result Comment: Stag [...] IFF, ANEU, CMP, MORPH, CBC, GFR, CEA ####[place] [id number] [place] [address] .Manual Diffon 12-15-2024 Bands 5.0 % Normal 0.0-5.0 [facility] Comment on above: Performed By: #### D IFF, ANEU, CMP, MORPH, CBC, GFR, CEA ####[place] [address] Basophil %, Manual 0.0 % Normal 0.0-2.5 [facility] Comment on above: Performed By: #### D IFF, ANEU, CMP, MORPH, CBC, GFR, CEA ####[place] [id number] Basophil, Abs Manual 0.0 10 3/mcL Normal 0.0-0.3 [facility] Comment on above: Performed By: #### D IFF, ANEU, CMP, MORPH, CBC, GFR, CEA ####[place] [address] Eosinophil %, Manual 2.0 % Normal 0.0-6.0 [facility] Comment on above: Performed By: #### D IFF, ANEU, CMP, MORPH, CBC, GFR, CEA ####[place] [address] Eosinophil, Abs Manual 0.2 10 3/mcL Normal 0.0-0.7 [facility] Comment on above: Performed By: #### D IFF, ANEU, CMP, MORPH, CBC, GFR, CEA ####[place] [address] Lymphocyte %, Manual 15.0 % Low 20.0-40.0 [facility] Comment on above: Performed By: #### D IFF, ANEU, CMP, MORPH, CBC, GFR, CEA ####[place] [address] Lymphocyte, Abs Manual 1.4 10 3/mcL Normal 0.9-4.3 [facility] Comment on above: Performed By: #### D IFF, ANEU, CMP, MORPH, CBC, GFR, CEA ####[place] [address] Metamyelocyte 2.0 % Normal [facility] Comment on above: Performed By: #### D IFF, ANEU, CMP, MORPH, CBC, GFR, CEA ####[place] [address] Monocyte %, Manual 6.0 % Normal 2.0-13.0 [facility] Comment on above: Performed By: #### D IFF, ANEU, CMP, MORPH, CBC, GFR, CEA ####[place] [address] Monocyte, Abs Manual 0.5 10 3/mcL Normal 0.1-1.4 [facility] Comment on above: Performed By: #### D IFF, ANEU, CMP, MORPH, CBC, GFR, CEA ####[place] [address] Neutrophil %, Manual 70.0 % Normal 50.0-75.0 [facility] Comment on above: Performed By: #### D IFF, ANEU, CMP, MORPH, CBC, GFR, CEA ####[place] [address] Neutrophil, Abs Manual 6.9 10 3/mcL Normal 2.3-8.1 [facility] Comment on above: Performed By: #### D IFF, ANEU, CMP, MORPH, CBC, GFR, CEA ####[place] [address] Nucleated RBC 0.0 /100 WBC Normal [facility] Comment on above: Performed By: #### D IFF, ANEU, CMP, MORPH, CBC, GFR, CEA ####[place] [address] .Morphon 12-15-2024 Anisocytosis Ql (Bld) 2+ Normal [facility] Comment on above: Performed By: #### D IFF, ANEU, CMP, MORPH, CBC, GFR, CEA ####[place] [address] Microcytosis 1+ Normal [facility] Comment on above: Performed By: #### D IFF, ANEU, CMP, MORPH, CBC, GFR, CEA ####[place] [address] Ovalocytes 1+ Normal [facility] Comment on above: Performed By: #### D IFF, ANEU, CMP, MORPH, CBC, GFR, CEA ####[place] [address] Platelet Estimate Normal Normal [facility] Comment on above: Performed By: #### D IFF, ANEU, CMP, MORPH, CBC, GFR, CEA ####[place] [address] Poik 1+ Normal [facility] Comment on above: Performed By: #### D IFF, ANEU, CMP, MORPH, CBC, GFR, CEA ####[place] [address] Polychrom 1+ Normal [facility] Comment on above: Performed By: #### D IFF, ANEU, CMP, MORPH, CBC, GFR, CEA ####[place] [address] .NEUABSon 12-15-2024 Neutrophil, Absolute 6.8 10 3/mcL Normal 2.3-8.1 [facility] Comment on above: Performed By: #### D IFF, ANEU, CMP, MORPH, CBC, GFR, CEA ####[place] [address] CBCon 12-15-2024 Erythrocyte distribution width (RBC) [Ratio] 22.2 % High 11.5-15.5 [facility] Comment on above: Performed By: #### D IFF, ANEU, CMP, MORPH, CBC, GFR, CEA ####[place] [address] Hematocrit (Bld) [Volume fraction] 29.9 % Low 34.0-46.0 [facility] Comment on above: Performed By: #### D IFF, ANEU, CMP, MORPH, CBC, GFR, CEA ####[place] [address] Hgb 9.1 G/dL Low 12.0-16.0 [facility] Comment on above: Performed By: #### D IFF, ANEU, CMP, MORPH, CBC, GFR, CEA ####[place] [address] MCH (RBC) [Entitic mass] 23.5 pg Low 27.0-33.0 [facility] Comment on above: Performed By: #### D IFF, ANEU, CMP, MORPH, CBC, GFR, CEA ####[place] [address] MCHC 30.5 G/dL Low 32.0-36.0 [facility] Comment on above: Performed By: #### D IFF, ANEU, CMP, MORPH, CBC, GFR, CEA ####[place] [address] MCV (RBC) [Entitic vol] 77.0 fL Low 80.0-99.0 [facility] Comment on above: Performed By: #### D IFF, ANEU, CMP, MORPH, CBC, GFR, CEA ####[place] [address] Platelet 240 10 3/mcL Normal 150-450 [facility] Comment on above: Performed By: #### D IFF, ANEU, CMP, MORPH, CBC, GFR, CEA ####[place] [address] Platelet mean volume (Bld) [Entitic vol] 8.9 fL Normal 6.6-10.5 [facility] Comment on above: Performed By: #### D IFF, ANEU, CMP, MORPH, CBC, GFR, CEA ####[place] [address] RBC 3.89 10 6/mcL Low 4.10-5.30 [facility] Comment on above: Performed By: #### D IFF, ANEU, CMP, MORPH, CBC, GFR, CEA ####[place] [address] WBC 9.2 10 3/mcL Normal 4.5-10.8 [facility] [facility] Comment on above: Performed By: #### D IFF, ANEU, CMP, MORPH, CBC, GFR, CEA ####[place] [address] CEAon 12-15-2024 CEA 40.6 ng/mL High 0.0-3.0 [facility] MAIN Comment on above: Result Comment: CEA Reference Range for SMOKERS: 0.0 - 5.0 ng/mL.Testing performed on the FiberLight IM analyzer usingdirect chemiluminesent technology. Patient resultsdetermined by assays using different manufacturers for methods may not be comparable. Performed By: #### D IFF, ANEU, CMP, MORPH, CBC, GFR, CEA ####[place] [id number] CMPon 12-15-2024 Albumin Level 3.5 G/dL Normal 3.2-4.8 [facility] MAIN Comment on above: Performed By: #### D IFF, ANEU, CMP, MORPH, CBC, GFR, CEA ####[place] [address] Albumin/Globulin [Mass ratio] 1.1 {ratio} Normal 0.9-1.6 [facility] MAIN Comment on above: Performed By: #### D IFF, ANEU, CMP, MORPH, CBC, GFR, CEA ####[place] [address] ALP [Catalytic activity/Vol] 129 U/L High 38-126 [facility] MAIN Comment on above: Performed By: #### D IFF, ANEU, CMP, MORPH, CBC, GFR, CEA ####[place] [address] ALT [Catalytic activity/Vol] 16 U/L Normal 10-49 [facility] MAIN Comment on above: Performed By: #### D IFF, ANEU, CMP, MORPH, CBC, GFR, CEA ####[place] [address] AST [Catalytic activity/Vol] 20 U/L Normal 8-34 [facility] MAIN Comment on above: Performed By: #### D IFF, ANEU, CMP, MORPH, CBC, GFR, CEA ####[place] [address] Bili Total 0.40 mg/dL Normal 0.20-1.20 [facility] MAIN Comment on above: Result Comment: Use of this assay is not recommended for patients undergoing treatment with eltrombopag due to the potential for falsely elevated results. Performed By: #### D IFF, ANEU, CMP, MORPH, CBC, GFR, CEA ####[place] [id number] BUN/Creatinine Ratio 22.0 ratio Normal 10.0-22.0 [facility] MAIN Comment on above: Performed By: #### D IFF, ANEU, CMP, MORPH, CBC, GFR, CEA ####[address] [address] Calcium [Mass/Vol] 9.0 mg/dL Normal 8.7-10.4 [facility] MAIN Comment on above: Performed By: #### D IFF, ANEU, CMP, MORPH, CBC, GFR, CEA ####[place] [id number] Chloride [Moles/Vol] 106 mmol/L Normal 98-110 [facility] MAIN Comment on above: Performed By: #### D IFF, ANEU, CMP, MORPH, CBC, GFR, CEA ####[place] [id number] CO2 [Moles/Vol] 28 mmol/L Normal 22-32 [facility] MAIN Comment on above: Performed By: #### D IFF, ANEU, CMP, MORPH, CBC, GFR, CEA ####[place] [address] Creatinine [Mass/Vol] 0.50 mg/dL Normal 0.50-1.20 [facility] MAIN Comment on above: Result Comment: Test ing performed on Actionsoft analyzer using enzymatic creatinine methodology. Performed By: #### D IFF, ANEU, CMP, MORPH, CBC, GFR, CEA ####[place] [address] Electrolyte Balance 9.0 mEq/L Normal 4.0-15.0 [facility] MAIN Comment on above: Performed By: #### D IFF, ANEU, CMP, MORPH, CBC, GFR, CEA ####[place] [address] Globulin 3.3 G/dL Normal 2.5-4.2 [facility] MAIN Comment on above: Performed By: #### D IFF, ANEU, CMP, MORPH, CBC, GFR, CEA ####[address] [address] Glucose [Mass/Vol] 89 mg/dL Normal 70-110 [facility] MAIN Comment on above: Performed By: #### D IFF, ANEU, CMP, MORPH, CBC, GFR, CEA ####[address] [address] Potassium [Moles/Vol] 3.7 mmol/L Normal 3.5-5.0 [facility] MAIN Comment on above: Performed By: #### D IFF, ANEU, CMP, MORPH, CBC, GFR, CEA ####[address] [address] Sodium [Moles/Vol] 143 mmol/L Normal 136-145 [facility] MAIN Comment on above: Performed By: #### D IFF, ANEU, CMP, MORPH, CBC, GFR, CEA ####[place] [address] Total Protein 6.8 G/dL Normal 5.7-8.2 [facility] MAIN Comment on above: Performed By: #### D IFF, ANEU, CMP, MORPH, CBC, GFR, CEA ####[place] [address] Urea nitrogen [Mass/Vol] 11.0 mg/dL Normal 8.0-22.0 [facility] MAIN Comment on above: Performed By: #### D IFF, ANEU, CMP, MORPH, CBC, GFR, CEA ####[address] [address] LABORATORYOrdered By: SYSTEM SYSTEM on 12-15-2024 Albumin [...] - 5.0 ng/mL. Testing performed on the FiberLight IM analyzer using direct chemiluminesent technology. Patient results determined by assays using different manufacturers for methods may not be comparable. Chloride [Moles/Vol] 106 mmol/L Normal 98 - 11 0 mEq/L ADM SS CO2 [Moles/Vol] 28 mmol/L Normal 22 - 32 mEq/L ADM SS Creatinine [Mass/Vol] 0.50 mg/dL Normal 0.50 - 1.20 mg/dL ADM SS Comment on above: Interpretive Data: T esting performed on FiberLight CH analyzer using enzymatic creatinine methodology. Electrolyte [...] Basophil, Absolute 0.0 10 3/mcL Normal 0.0-0.3 [facility] MAIN Comment on above: Performed By: #### A KRISTI, CBC, CMP, GFR, ADIFF ####[address] [place] [address] Basophils/100 WBC (Bld) 0.3 % Normal 0.0-2.5 [facility] MAIN Comment on above: Performed By: #### A KRISTI, CBC, CMP, GFR, ADIFF ####[address] [address] Eosinophil, Absolute 0.0 10 3/mcL Normal 0.0-0.7 [facility] MAIN Comment on above: Performed By: #### A KRISTI, CBC, CMP, GFR, ADIFF ####[address] [address] Eosinophils/100 WBC (Bld) 0.6 % Normal 0.0-6.0 [facility] MAIN Comment on above: Performed By: #### A KRISTI, CBC, CMP, GFR, ADIFF ####[address] [address] Lymphocyte, Absolute 1.5 10 3/mcL Normal 0.9-4.3 [facility] MAIN Comment on above: Performed By: #### A KRISTI, CBC, CMP, GFR, ADIFF ####[address] [address] Lymphocytes/100 WBC (Bld) 25.8 % Normal 20.0-40.0 [facility] MAIN Comment on above: Performed By: #### A KRISTI, CBC, CMP, GFR, ADIFF ####[address] [address] Monocyte, Absolute 0.4 10 3/mcL Normal 0.1-1.4 [facility] MAIN Comment on above: Performed By: #### A KRISTI, CBC, CMP, GFR, ADIFF ####[address] [address] Monocytes/100 WBC (Bld) 7.6 % Normal 2.0-13.0 [facility] MAIN Comment on above: Performed By: #### A KRISTI, CBC, CMP, GFR, ADIFF ####[address] [address] Neutrophils/100 WBC (Bld) 65.7 % Normal 50.0-75.0 [facility] MAIN Comment on above: Performed By: #### A KRISTI, CBC, CMP, GFR, ADIFF ####[place] [address] .GFRon 12-01-2024 GFR/1.73 sq M.predicted among non-blacks MDRD (S/P/Bld) [Vol rate/Area] mL/min/{1.73_m2} Normal [facility] MAIN Comment on above: Result Comment: Stag [...] KRISTI, CBC, CMP, GFR, ADIFF ####[place] [address] .NEUABSon 12-01-2024 Neutrophil, Absolute 3.8 10 3/mcL Normal 2.3-8.1 [facility] MAIN Comment on above: Performed By: #### A KRISTI, CBC, CMP, GFR, ADIFF ####[place] [address] CBCon 12-01-2024 Erythrocyte distribution width (RBC) [Ratio] 21.9 % High 11.5-15.5 [facility] MAIN Comment on above: Performed By: #### A KIRSTI, CBC, CMP, GFR, ADIFF ####[place] [address] Hematocrit (Bld) [Volume fraction] 29.3 % Low 34.0-46.0 [facility] MAIN Comment on above: Performed By: #### A KRISTI, CBC, CMP, GFR, ADIFF ####[place] [address] Hgb 9.0 G/dL Low 12.0-16.0 [facility] MAIN Comment on above: Performed By: #### A KRISTI, CBC, CMP, GFR, ADIFF ####[place] [address] MCH (RBC) [Entitic mass] 23.4 pg Low 27.0-33.0 [facility] MAIN Comment on above: Performed By: #### A KRISTI, CBC, CMP, GFR, ADIFF ####[place] [address] MCHC 30.7 G/dL Low 32.0-36.0 [facility] MAIN Comment on above: Performed By: #### A KRISTI, CBC, CMP, GFR, ADIFF ####[place] [address] MCV (RBC) [Entitic vol] 76.3 fL Low 80.0-99.0 [facility] MAIN Comment on above: Performed By: #### A KRISTI, CBC, CMP, GFR, ADIFF ####[place] [address] Platelet 301 10 3/mcL Normal 150-450 [facility] MAIN Comment on above: Performed By: #### A KRISTI, CBC, CMP, GFR, ADIFF ####[place] [address] Platelet mean volume (Bld) [Entitic vol] 8.4 fL Normal 6.6-10.5 [facility] MAIN Comment on above: Performed By: #### A KRISTI, CBC, CMP, GFR, ADIFF ####[place] [address] RBC 3.84 10 6/mcL Low 4.10-5.30 [facility] MAIN Comment on above: Performed By: #### A KRISTI, CBC, CMP, GFR, ADIFF ####[place] [address] WBC 5.7 10 3/mcL Normal 4.5-10.8 [facility] MAIN Comment on above: Performed By: #### A KRISTI, CBC, CMP, GFR, ADIFF ####[place] [address] CMPon 12-01-2024 Albumin Level 3.7 G/dL Normal 3.2-4.8 [facility] MAIN Comment on above: Performed By: #### A KRISTI, CBC, CMP, GFR, ADIFF ####[place] [id number] Albumin/Globulin [Mass ratio] 1.1 {ratio} Normal 0.9-1.6 [facility] MAIN Comment on above: Performed By: #### A KRISTI, CBC, CMP, GFR, ADIFF ####[place] [id number] ALP [Catalytic activity/Vol] 127 U/L High 38-126 [facility] MAIN Comment on above: Performed By: #### A KRISTI, CBC, CMP, GFR, ADIFF ####[place] [id number] ALT [Catalytic activity/Vol] 17 U/L Normal 10-49 [facility] MAIN Comment on above: Performed By: #### A KRISTI, CBC, CMP, GFR, ADIFF ####[place] [id number] AST [Catalytic activity/Vol] 19 U/L Normal 8-34 [facility] MAIN Comment on above: Performed By: #### A KRISTI, CBC, CMP, GFR, ADIFF ####[place] [id number] Bili Total 0.50 mg/dL Normal 0.20-1.20 [facility] MAIN Comment on above: Result Comment: Use of this assay is not recommended for patients undergoing treatment with eltrombopag due to the potential for falsely elevated results. Performed By: #### A KRISTI, CBC, CMP, GFR, ADIFF ####[place] [id number] BUN/Creatinine Ratio 15.6 ratio Normal 10.0-22.0 [facility] MAIN Comment on above: Performed By: #### A KRISTI, CBC, CMP, GFR, ADIFF ####[address] [address] Calcium [Mass/Vol] 8.9 mg/dL Normal 8.7-10.4 [facility] MAIN Comment on above: Performed By: #### A KRISTI, CBC, CMP, GFR, ADIFF ####[address] [address] Chloride [Moles/Vol] 107 mmol/L Normal 98-110 [facility] MAIN Comment on above: Performed By: #### A KRISTI, CBC, CMP, GFR, ADIFF ####[address] [address] CO2 [Moles/Vol] 26 mmol/L Normal 22-32 [facility] MAIN Comment on above: Performed By: #### A KRISTI, CBC, CMP, GFR, ADIFF ####[address] [address] Creatinine [Mass/Vol] 0.45 mg/dL Low 0.50-1.20 [facility] MAIN Comment on above: Result Comment: Test ing performed on Actionsoft analyzer using enzymatic creatinine methodology. Performed By: #### A KRISTI, CBC, CMP, GFR, ADIFF ####[address] [address] Electrolyte Balance 9.0 mEq/L Normal 4.0-15.0 [facility] MAIN Comment on above: Performed By: #### A KRISTI, CBC, CMP, GFR, ADIFF ####[address] [address] Globulin 3.4 G/dL Normal 2.5-4.2 [facility] MAIN Comment on above: Performed By: #### A KRISTI, CBC, CMP, GFR, ADIFF ####[address] [address] Glucose [Mass/Vol] 100 mg/dL Normal 70-110 [facility] MAIN Comment on above: Performed By: #### A KRISTI, CBC, CMP, GFR, ADIFF ####[address] [address] Potassium [Moles/Vol] 3.6 mmol/L Normal 3.5-5.0 [facility] MAIN Comment on above: Performed By: #### A KRISTI, CBC, CMP, GFR, ADIFF ####[address] [address] Sodium [Moles/Vol] 142 mmol/L Normal 136-145 [facility] MAIN Comment on above: Performed By: #### A KRISTI, CBC, CMP, GFR, ADIFF ####[place] [id number] [place] [address] Total Protein 7.1 G/dL Normal 5.7-8.2 [facility] MAIN Comment on above: Performed By: #### A KRISTI, CBC, CMP, GFR, ADIFF ####[facility] [place] [address] Urea nitrogen [Mass/Vol] 7.0 mg/dL Low 8.0-22.0 [facility] MAIN Comment on above: Performed By: #### A KRISTI, CBC, CMP, GFR, ADIFF ####[place] [id number] [place] [address] LABORATORYOrdered By: SYSTEM SYSTEM on 12-01-2024 Albumin [...] above: Interpretive Data: T esting performed on Actionsoft analyzer using enzymatic creatinine methodology. Electrolyte Balance [...] Estimated Glomerular Filtration Rate 120 ml/min/1.73sqm Normal [facility] MAIN Comment on above: Result Comment: Stag [...] DIFF, GFR, CBC, CMP, MORPH ####[place] [address] .Manual Diffon 11-17-2024 Bands 3.0 % Normal 0.0-5.0 [facility] MAIN Comment on above: Performed By: #### A KRISTI, DIFF, GFR, CBC, CMP, MORPH ####[place] [address] Basophil %, Manual 0.0 % Normal 0.0-2.5 [facility] MAIN Comment on above: Performed By: #### A KRISTI, DIFF, GFR, CBC, CMP, MORPH ####[place] [address] Basophil, Abs Manual 0.0 10 3/mcL Normal 0.0-0.3 [facility] MAIN Comment on above: Performed By: #### A KRISTI, DIFF, GFR, CBC, CMP, MORPH ####[place] [address] Blast 1.0 % Normal [facility] MAIN Comment on above: Performed By: #### A KRISTI, DIFF, GFR, CBC, CMP, MORPH ####[place] [address] Eosinophil %, Manual 1.0 % Normal 0.0-6.0 [facility] MAIN Comment on above: Performed By: #### A KRISTI, DIFF, GFR, CBC, CMP, MORPH ####[place] [address] Eosinophil, Abs Manual 0.1 10 3/mcL Normal 0.0-0.7 [facility] MAIN Comment on above: Performed By: #### A KRISTI, DIFF, GFR, CBC, CMP, MORPH ####[address] [address] Lymphocyte %, Manual 11.0 % Low 20.0-40.0 [facility] MAIN Comment on above: Performed By: #### A KRISTI, DIFF, GFR, CBC, CMP, MORPH ####[address] [address] Lymphocyte, Abs Manual 1.6 10 3/mcL Normal 0.9-4.3 [facility] MAIN Comment on above: Performed By: #### A KRISTI, DIFF, GFR, CBC, CMP, MORPH ####[address] [address] Metamyelocyte 1.0 % Normal [facility] MAIN Comment on above: Performed By: #### A KRISTI, DIFF, GFR, CBC, CMP, MORPH ####[address] [address] Monocyte %, Manual 2.0 % Normal 2.0-13.0 [facility] MAIN Comment on above: Performed By: #### A KRISTI, DIFF, GFR, CBC, CMP, MORPH ####[address] [address] Monocyte, Abs Manual 0.3 10 3/mcL Normal 0.1-1.4 [facility] MAIN Comment on above: Performed By: #### A KRISTI, DIFF, GFR, CBC, CMP, MORPH ####[address] [address] Neutrophil %, Manual 81.0 % High 50.0-75.0 [facility] MAIN Comment on above: Performed By: #### A KRISTI, DIFF, GFR, CBC, CMP, MORPH ####[address] [address] Neutrophil, Abs Manual 11.7 10 3/mcL High 2.3-8.1 [facility] MAIN Comment on above: Performed By: #### A KRISTI, DIFF, GFR, CBC, CMP, MORPH ####[address] [address] Nucleated RBC 0.0 /100 WBC Normal [facility] MAIN Comment on above: Performed By: #### A KRISTI, DIFF, GFR, CBC, CMP, MORPH ####[place] [address] .Morphon 11-17-2024 Anisocytosis Ql (Bld) 2+ Normal [facility] MAIN Comment on above: Performed By: #### A KRISTI, DIFF, GFR, CBC, CMP, MORPH ####[place] [address] Hypochrom 1+ [facility] MAIN Comment on above: Performed By: #### A KRISTI, DIFF, GFR, CBC, CMP, MORPH ####[place] [address] Microcytosis 2+ Normal [facility] MAIN Comment on above: Performed By: #### A KRISTI, DIFF, GFR, CBC, CMP, MORPH ####[place] [address] Platelet Estimate Normal [facility] MAIN Comment on above: Performed By: #### A KRISTI, DIFF, GFR, CBC, CMP, MORPH ####[place] [address] Poik 1+ [facility] MAIN Comment on above: Performed By: #### A KRISTI, DIFF, GFR, CBC, CMP, MORPH ####[place] [address] Polychrom 1+ [facility] MAIN Comment on above: Performed By: #### A KRISTI, DIFF, GFR, CBC, CMP, MORPH ####[place] [address] Stomatocytes 1+ [facility] MAIN Comment on above: Performed By: #### A KRISTI, DIFF, GFR, CBC, CMP, MORPH ####[place] [address] Toxic Gran 1+ [facility] MAIN Comment on above: Performed By: #### A KRISTI, DIFF, GFR, CBC, CMP, MORPH ####[place] [address] .NEUABSon 11-17-2024 Neutrophil, Absolute 11.3 10 3/mcL High 2.3-8.1 [facility] MAIN Comment on above: Performed By: #### A KRISTI, DIFF, GFR, CBC, CMP, MORPH ####[place] [address] CBCon 11-17-2024 Erythrocyte distribution width (RBC) [Ratio] 22.1 % High 11.5-15.5 [facility] MAIN Comment on above: Performed By: #### A KRISTI, DIFF, GFR, CBC, CMP, MORPH ####[place] [address] Hematocrit (Bld) [Volume fraction] 29.7 % Low 34.0-46.0 [facility] MAIN Comment on above: Performed By: #### A KRISTI, DIFF, GFR, CBC, CMP, MORPH ####[place] [address] Hgb 9.0 G/dL Low 12.0-16.0 [facility] MAIN Comment on above: Performed By: #### A KRISTI, DIFF, GFR, CBC, CMP, MORPH ####[place] [address] MCH (RBC) [Entitic mass] 22.5 pg Low 27.0-33.0 [facility] MAIN Comment on above: Performed By: #### A KRISTI, DIFF, GFR, CBC, CMP, MORPH ####[place] [address] MCHC 30.3 G/dL Low 32.0-36.0 [facility] MAIN Comment on above: Performed By: #### A KRISTI, DIFF, GFR, CBC, CMP, MORPH ####[place] [address] MCV (RBC) [Entitic vol] 74.5 fL Low 80.0-99.0 [facility] MAIN Comment on above: Performed By: #### A KRISTI, DIFF, GFR, CBC, CMP, MORPH ####[place] [address] Platelet 166 10 3/mcL Normal 150-450 [facility] MAIN Comment on above: Performed By: #### A KRISTI, DIFF, GFR, CBC, CMP, MORPH ####[place] [address] Platelet mean volume (Bld) [Entitic vol] 9.3 fL Normal 6.6-10.5 [facility] MAIN Comment on above: Performed By: #### A KRISTI, DIFF, GFR, CBC, CMP, MORPH ####[place] [address] RBC 3.99 10 6/mcL Low 4.10-5.30 [facility] MAIN Comment on above: Performed By: #### A KRISTI, DIFF, GFR, CBC, CMP, MORPH ####[place] [address] WBC 14.0 10 3/mcL High 4.5-10.8 [facility] MAIN Comment on above: Performed By: #### A KRISTI, DIFF, GFR, CBC, CMP, MORPH ####[place] [address] CMPon 11-17-2024 Albumin Level 3.6 G/dL Normal 3.2-4.8 [facility] MAIN Comment on above: Performed By: #### A KRISTI, DIFF, GFR, CBC, CMP, MORPH ####[place] [address] Albumin/Globulin [Mass ratio] 1.1 {ratio} Normal 0.9-1.6 [facility] MAIN Comment on above: Performed By: #### A KRISTI, DIFF, GFR, CBC, CMP, MORPH ####[place] [address] ALP [Catalytic activity/Vol] 150 U/L High 38-126 [facility] MAIN Comment on above: Performed By: #### A KRISTI, DIFF, GFR, CBC, CMP, MORPH ####[place] [address] ALT [Catalytic activity/Vol] 26 U/L Normal 10-49 [facility] MAIN Comment on above: Performed By: #### A KRISTI, DIFF, GFR, CBC, CMP, MORPH ####[place] [address] AST [Catalytic activity/Vol] 30 U/L Normal 8-34 [facility] MAIN Comment on above: Performed By: #### A KRISTI, DIFF, GFR, CBC, CMP, MORPH ####[place] [address] Bili Total 0.60 mg/dL Normal 0.20-1.20 [facility] MAIN Comment on above: Result Comment: Use of this assay is not recommended for patients undergoing treatment with eltrombopag due to the potential for falsely elevated results. Performed By: #### A KRISTI, DIFF, GFR, CBC, CMP, MORPH ####[place] [address] BUN/Creatinine Ratio 12.8 ratio Normal 10.0-22.0 [facility] MAIN Comment on above: Performed By: #### A KRISTI, DIFF, GFR, CBC, CMP, MORPH ####[place] [address] Calcium [Mass/Vol] 9.7 mg/dL Normal 8.7-10.4 [facility] MAIN Comment on above: Performed By: #### A KRISTI, DIFF, GFR, CBC, CMP, MORPH ####[place] [address] Chloride [Moles/Vol] 106 mmol/L Normal 98-110 [facility] MAIN Comment on above: Performed By: #### A KRISTI, DIFF, GFR, CBC, CMP, MORPH ####[place] [address] CO2 [Moles/Vol] 28 mmol/L Normal 22-32 [facility] MAIN Comment on above: Performed By: #### A KRISTI, DIFF, GFR, CBC, CMP, MORPH ####[place] [address] Creatinine [Mass/Vol] 0.47 mg/dL Low 0.50-1.20 [facility] MAIN Comment on above: Result Comment: Test ing performed on Actionsoft analyzer using enzymatic creatinine methodology. Performed By: #### A KRISTI, DIFF, GFR, CBC, CMP, MORPH ####[place] [address] Electrolyte Balance 9.0 mEq/L Normal 4.0-15.0 [facility] MAIN Comment on above: Performed By: #### A KRISTI, DIFF, GFR, CBC, CMP, MORPH ####[place] [id number] Globulin 3.4 G/dL Normal 2.5-4.2 [facility] MAIN Comment on above: Performed By: #### A KRISTI, DIFF, GFR, CBC, CMP, MORPH ####[address] [address] Glucose [Mass/Vol] 94 mg/dL Normal 70-110 [facility] MAIN Comment on above: Performed By: #### A KRISTI, DIFF, GFR, CBC, CMP, MORPH ####[address] [address] Potassium [Moles/Vol] 3.6 mmol/L Normal 3.5-5.0 [facility] MAIN Comment on above: Performed By: #### A KRISTI, DIFF, GFR, CBC, CMP, MORPH ####[place] [address] Sodium [Moles/Vol] 143 mmol/L Normal 136-145 [facility] MAIN Comment on above: Performed By: #### A KRISTI, DIFF, GFR, CBC, CMP, MORPH ####[place] [address] Total Protein 7.0 G/dL Normal 5.7-8.2 [facility] MAIN Comment on above: Performed By: #### A KRISTI, DIFF, GFR, CBC, CMP, MORPH ####[address] [address] Urea nitrogen [Mass/Vol] 6.0 mg/dL Low 8.0-22.0 [facility] MAIN Comment on above: Performed By: #### A KRISTI, DIFF, GFR, CBC, CMP, MORPH ####[address] [address] LABORATORYOrdered By: SYSTEM SYSTEM on 11-17-2024 Albumin [...] above: Interpretive Data: T esting performed on [employer] analyzer using enzymatic creatinine methodology. Electrolyte Balance [...] non-blacks MDRD (S/P/Bld) [Vol rate/Area] mL/min/{1.73_m2} Normal [facility] Comment on above: Result Comment: Stag [...] MORPH, DIFF, GFR, CBC, ANEU ####[place] [id number] .Manual Diffon 11-03-2024 Basophil %, Manual 1.0 % Normal 0.0-2.5 [facility] Comment on above: Performed By: #### C MP, MORPH, DIFF, GFR, CBC, ANEU ####[place] [address] Basophil, Abs Manual 0.1 10 3/mcL Normal 0.0-0.3 [facility] Comment on above: Performed By: #### C MP, MORPH, DIFF, GFR, CBC, ANEU ####[place] [address] Eosinophil %, Manual 0.0 % Normal 0.0-6.0 [facility] Comment on above: Performed By: #### C MP, MORPH, DIFF, GFR, CBC, ANEU ####[place] [address] Eosinophil, Abs Manual 0.0 10 3/mcL Normal 0.0-0.7 [facility] Comment on above: Performed By: #### C MP, MORPH, DIFF, GFR, CBC, ANEU ####[place] [address] Lymphocyte %, Manual 12.0 % Low 20.0-40.0 [facility] Comment on above: Performed By: #### C MP, MORPH, DIFF, GFR, CBC, ANEU ####[address] [address] Lymphocyte, Abs Manual 1.0 10 3/mcL Normal 0.9-4.3 [facility] Comment on above: Performed By: #### C MP, MORPH, DIFF, GFR, CBC, ANEU ####[place] [id number] Monocyte %, Manual 5.0 % Normal 2.0-13.0 [facility] Comment on above: Performed By: #### C MP, MORPH, DIFF, GFR, CBC, ANEU ####[address] [address] Monocyte, Abs Manual 0.4 10 3/mcL Normal 0.1-1.4 [facility] Comment on above: Performed By: #### C MP, MORPH, DIFF, GFR, CBC, ANEU ####[place] [id number] Neutrophil %, Manual 82.0 % High 50.0-75.0 [facility] Comment on above: Performed By: #### C MP, MORPH, DIFF, GFR, CBC, ANEU ####[place] [id number] Neutrophil, Abs Manual 7.1 10 3/mcL Normal 2.3-8.1 [facility] Comment on above: Performed By: #### C MP, MORPH, DIFF, GFR, CBC, ANEU ####[place] [address] Nucleated RBC 0.0 /100 WBC Normal [facility] Comment on above: Performed By: #### C MP, MORPH, DIFF, GFR, CBC, ANEU ####[place] [address] .Morphon 11-03-2024 Anisocytosis Ql (Bld) 2+ Normal [facility] Comment on above: Performed By: #### C MP, MORPH, DIFF, GFR, CBC, ANEU ####[place] [id number] Platelet Estimate Normal Normal [facility] Comment on above: Performed By: #### C MP, MORPH, DIFF, GFR, CBC, ANEU ####[place] [address] .NEUABSon 11-03-2024 Neutrophil, Absolute 6.3 10 3/mcL Normal 2.3-8.1 [facility] Comment on above: Performed By: #### C MP, MORPH, DIFF, GFR, CBC, ANEU ####[place] [address] CBCon 11-03-2024 Erythrocyte distribution width (RBC) [Ratio] 23.2 % High 11.5-15.5 [facility] Comment on above: Performed By: #### C MP, MORPH, DIFF, GFR, CBC, ANEU ####[place] [address] Hematocrit (Bld) [Volume fraction] 30.2 % Low 34.0-46.0 [facility] Comment on above: Performed By: #### C MP, MORPH, DIFF, GFR, CBC, ANEU ####[place] [address] Hgb 9.3 G/dL Low 12.0-16.0 [facility] Comment on above: Performed By: #### C MP, MORPH, DIFF, GFR, CBC, ANEU ####[place] [address] MCH (RBC) [Entitic mass] 22.7 pg Low 27.0-33.0 [facility] Comment on above: Performed By: #### C MP, MORPH, DIFF, GFR, CBC, ANEU ####[place] [address] MCHC 30.8 G/dL Low 32.0-36.0 [facility] Comment on above: Performed By: #### C MP, MORPH, DIFF, GFR, CBC, ANEU ####[place] [address] MCV (RBC) [Entitic vol] 73.7 fL Low 80.0-99.0 [facility] Comment on above: Performed By: #### C MP, MORPH, DIFF, GFR, CBC, ANEU ####[place] [address] Platelet 182 10 3/mcL Normal 150-450 [facility] Comment on above: Performed By: #### C MP, MORPH, DIFF, GFR, CBC, ANEU ####[place] [address] Platelet mean volume (Bld) [Entitic vol] 9.2 fL Normal 6.6-10.5 [facility] Comment on above: Performed By: #### C MP, MORPH, DIFF, GFR, CBC, ANEU ####[place] [address] RBC 4.10 10 6/mcL Normal 4.10-5.30 [facility] Comment on above: Performed By: #### C MP, MORPH, DIFF, GFR, CBC, ANEU ####[place] [address] WBC 8.6 10 3/mcL Normal 4.5-10.8 [facility] Comment on above: Performed By: #### C MP, MORPH, DIFF, GFR, CBC, ANEU ####[place] [address] CEAon 11-03-2024 CEA 239.8 ng/mL High 0.0-3.0 [facility] Comment on above: Result Comment: CEA Reference Range for SMOKERS: 0.0 - 5.0 ng/mL.Testing performed on the FiberLight IM analyzer usingdirect chemiluminesent technology. Patient resultsdetermined by assays using different manufacturers for methods may not be comparable. Performed By: #### C EA ####[place] [address] CMPon 11-03-2024 Albumin Level 3.5 G/dL Normal 3.2-4.8 [facility] Comment on above: Performed By: #### C MP, MORPH, DIFF, GFR, CBC, ANEU ####[place] [address] Albumin/Globulin [Mass ratio] 1.0 {ratio} Normal 0.9-1.6 [facility] Comment on above: Performed By: #### C MP, MORPH, DIFF, GFR, CBC, ANEU ####[place] [address] ALP [Catalytic activity/Vol] 127 U/L High 38-126 [facility] Comment on above: Performed By: #### C MP, MORPH, DIFF, GFR, CBC, ANEU ####[address] [address] ALT [Catalytic activity/Vol] 40 U/L Normal 10-49 [facility] Comment on above: Performed By: #### C MP, MORPH, DIFF, GFR, CBC, ANEU ####[place] [address] AST [Catalytic activity/Vol] 33 U/L Normal 8-34 [facility] Comment on above: Performed By: #### C MP, MORPH, DIFF, GFR, CBC, ANEU ####[place] [address] Bili Total 0.50 mg/dL Normal 0.20-1.20 [facility] Comment on above: Result Comment: Use of this assay is not recommended for patients undergoing treatment with eltrombopag due to the potential for falsely elevated results. Performed By: #### C MP, MORPH, DIFF, GFR, CBC, ANEU ####[place] [address] BUN/Creatinine Ratio 17.4 ratio Normal 10.0-22.0 [facility] Comment on above: Performed By: #### C MP, MORPH, DIFF, GFR, CBC, ANEU ####[place] [address] Calcium [Mass/Vol] 9.0 mg/dL Normal 8.7-10.4 [facility] Comment on above: Performed By: #### C MP, MORPH, DIFF, GFR, CBC, ANEU ####[place] [address] Chloride [Moles/Vol] 107 mmol/L Normal 98-110 [facility] Comment on above: Performed By: #### C MP, MORPH, DIFF, GFR, CBC, ANEU ####[place] [address] CO2 [Moles/Vol] 23 mmol/L Normal 22-32 [facility] Comment on above: Performed By: #### C MP, MORPH, DIFF, GFR, CBC, ANEU ####[place] [address] Creatinine [Mass/Vol] 0.46 mg/dL Low 0.50-1.20 [facility] Comment on above: Result Comment: Test ing performed on Actionsoft analyzer using enzymatic creatinine methodology. Performed By: #### C MP, MORPH, DIFF, GFR, CBC, ANEU ####[place] [address] Electrolyte Balance 12.0 mEq/L Normal 4.0-15.0 [facility] Comment on above: Performed By: #### C MP, MORPH, DIFF, GFR, CBC, ANEU ####[place] [address] Globulin 3.5 G/dL Normal 2.5-4.2 [facility] Comment on above: Performed By: #### C MP, MORPH, DIFF, GFR, CBC, ANEU ####[place] [address] Glucose [Mass/Vol] 100 mg/dL Normal 70-110 [facility] Comment on above: Performed By: #### C MP, MORPH, DIFF, GFR, CBC, ANEU ####[place] [address] Potassium [Moles/Vol] 3.8 mmol/L Normal 3.5-5.0 [facility] Comment on above: Performed By: #### C MP, MORPH, DIFF, GFR, CBC, ANEU ####[place] [address] Sodium [Moles/Vol] 142 mmol/L Normal 136-145 [facility] Comment on above: Performed By: #### C MP, MORPH, DIFF, GFR, CBC, ANEU ####[place] [address] Total Protein 7.0 G/dL Normal 5.7-8.2 [facility] Comment on above: Performed By: #### C MP, MORPH, DIFF, GFR, CBC, ANEU ####[facility] [place] [address] Urea nitrogen [Mass/Vol] 8.0 mg/dL Normal 8.0-22.0 [facility] Comment on above: Performed By: #### C MP, MORPH, DIFF, GFR, CBC, ANEU ####[facility] [place] [address] LABORATORYOrdered By: SYSTEM SYSTEM on 11-03-2024 Albumin [...] - 5.0 ng/mL. Testing performed on the FiberLight IM analyzer using direct chemiluminesent technology. Patient [...] above: Interpretive Data: T esting performed on Actionsoft analyzer using enzymatic creatinine methodology. Electrolyte Balance [...] W/ CONTRASTon CT THORAX W/ CONTRAST Normal [facility] MA[facility] CT ABDOMEN/PELVIS W/CONTRAST on 10-29-2024 CT ABDOMEN/PELVIS W/CONTRAST Normal [facility] .Auto Diffon 10-20-2024 Basophil, Absolute 0.1 10 3/mcL Normal 0.0-0.3 [facility] Comment on above: Performed By: #### C BC, ANEU, CMP, GFR, ADIFF ####[address] [address] Basophils/100 WBC (Bld) 0.9 % Normal 0.0-2.5 [facility] MA[facility] Comment on above: Performed By: #### C BC, ANEU, CMP, GFR, ADIFF ####[address] [address] Eosinophil, Absolute 0.1 10 3/mcL Normal 0.0-0.7 [facility] Comment on above: Performed By: #### C BC, ANEU, CMP, GFR, ADIFF ####[address] [address] Eosinophils/100 WBC (Bld) 0.5 % Normal 0.0-6.0 [facility] Comment on above: Performed By: #### C BC, ANEU, CMP, GFR, ADIFF ####[address] [address] Lymphocyte, Absolute 2.3 10 3/mcL Normal 0.9-4.3 [facility] Comment on above: Performed By: #### C BC, ANEU, CMP, GFR, ADIFF ####[address] [address] Lymphocytes/100 WBC (Bld) 19.5 % Low 20.0-40.0 [facility] Comment on above: Performed By: #### C BC, ANEU, CMP, GFR, ADIFF ####[address] [address] Monocyte, Absolute 0.7 10 3/mcL Normal 0.1-1.4 [facility] Comment on above: Performed By: #### C BC, ANEU, CMP, GFR, ADIFF ####[place] [id number] [place] [address] Monocytes/100 WBC (Bld) 5.7 % Normal 2.0-13.0 [facility] Comment on above: Performed By: #### C BC, ANEU, CMP, GFR, ADIFF ####[address] [address] Neutrophils/100 WBC (Bld) 73.4 % Normal 50.0-75.0 [facility] Comment on above: Performed By: #### C BC, ANEU, CMP, GFR, ADIFF ####[address] [address] .GFRon 10-20-2024 Estimated Glomerular Filtration Rate 120 ml/min/1.73sqm Normal [facility] Comment on above: Result Comment: Stag [...] #### C BC, ANEU, CMP, GFR, ADIFF ####[address] [address] .NEUABSon 10-20-2024 Neutrophil, Absolute 8.5 10 3/mcL High 2.3-8.1 [facility] Comment on above: Performed By: #### C BC, ANEU, CMP, GFR, ADIFF ####[address] [address] CBCon 10-20-2024 Erythrocyte distribution width (RBC) [Ratio] 22.9 % High 11.5-15.5 [facility] Comment on above: Performed By: #### C BC, ANEU, CMP, GFR, ADIFF ####[place] [address] Hematocrit (Bld) [Volume fraction] 30.3 % Low 34.0-46.0 [facility] Comment on above: Performed By: #### C BC, ANEU, CMP, GFR, ADIFF ####[place] [address] Hgb 9.2 G/dL Low 12.0-16.0 [facility] Comment on above: Performed By: #### C BC, ANEU, CMP, GFR, ADIFF ####[place] [address] MCH (RBC) [Entitic mass] 22.5 pg Low 27.0-33.0 [facility] Comment on above: Performed By: #### C BC, ANEU, CMP, GFR, ADIFF ####[place] [address] MCHC 30.5 G/dL Low 32.0-36.0 [facility] Comment on above: Performed By: #### C BC, ANEU, CMP, GFR, ADIFF ####[place] [address] MCV (RBC) [Entitic vol] 73.9 fL Low 80.0-99.0 [facility] Comment on above: Performed By: #### C BC, ANEU, CMP, GFR, ADIFF ####[place] [address] Platelet 231 10 3/mcL Normal 150-450 [facility] Comment on above: Performed By: #### C BC, ANEU, CMP, GFR, ADIFF ####[place] [address] Platelet mean volume (Bld) [Entitic vol] 9.5 fL Normal 6.6-10.5 [facility] Comment on above: Performed By: #### C BC, ANEU, CMP, GFR, ADIFF ####[place] [address] RBC 4.10 10 6/mcL Normal 4.10-5.30 [facility] Comment on above: Performed By: #### C BC, ANEU, CMP, GFR, ADIFF ####[address] [address] WBC 11.6 10 3/mcL High 4.5-10.8 [facility] Comment on above: Performed By: #### C BC, ANEU, CMP, GFR, ADIFF ####[place] [address] CEAon 10-20-2024 CEA 431.9 ng/mL High 0.0-3.0 [facility] Comment on above: Result Comment: CEA Reference Range for SMOKERS: 0.0 - 5.0 ng/mL.Testing performed on the STYLIGHT analyzer usingdirect chemiluminesent technology. Patient resultsdetermined by assays using different manufacturers for methods may not be comparable. Performed By: #### C EA ####[place] [address] CMPon 10-20-2024 Albumin Level 3.4 G/dL Normal 3.2-4.8 [facility] Comment on above: Performed By: #### C BC, ANEU, CMP, GFR, ADIFF ####[place] [address] Albumin/Globulin [Mass ratio] 1.0 {ratio} Normal 0.9-1.6 [facility] Comment on above: Performed By: #### C BC, ANEU, CMP, GFR, ADIFF ####[place] [address] ALP [Catalytic activity/Vol] 139 U/L High 38-126 [facility] Comment on above: Performed By: #### C BC, ANEU, CMP, GFR, ADIFF ####[address] [address] ALT [Catalytic activity/Vol] 23 U/L Normal 10-49 [facility] Comment on above: Performed By: #### C BC, ANEU, CMP, GFR, ADIFF ####[address] [address] AST [Catalytic activity/Vol] 30 U/L Normal 8-34 [facility] Comment on above: Performed By: #### C BC, ANEU, CMP, GFR, ADIFF ####[place] [address] Bili Total 0.40 mg/dL Normal 0.20-1.20 [facility] Comment on above: Result Comment: Use of this assay is not recommended for patients undergoing treatment with eltrombopag due to the potential for falsely elevated results. Performed By: #### C BC, ANEU, CMP, GFR, ADIFF ####[place] [address] BUN/Creatinine Ratio 14.9 ratio Normal 10.0-22.0 [facility] Comment on above: Performed By: #### C BC, ANEU, CMP, GFR, ADIFF ####[place] [address] Calcium [Mass/Vol] 9.3 mg/dL Normal 8.7-10.4 [facility] Comment on above: Performed By: #### C BC, ANEU, CMP, GFR, ADIFF ####[place] [address] Chloride [Moles/Vol] 109 mmol/L Normal 98-110 [facility] Comment on above: Performed By: #### C BC, ANEU, CMP, GFR, ADIFF ####[place] [address] CO2 [Moles/Vol] 27 mmol/L Normal 22-32 [facility] Comment on above: Performed By: #### C BC, ANEU, CMP, GFR, ADIFF ####[place] [address] Creatinine [Mass/Vol] 0.47 mg/dL Low 0.50-1.20 [facility] Comment on above: Result Comment: Test ing performed on Actionsoft analyzer using enzymatic creatinine methodology. Performed By: #### C BC, ANEU, CMP, GFR, ADIFF ####[place] [address] Electrolyte Balance 5.0 mEq/L Normal 4.0-15.0 [facility] Comment on above: Performed By: #### C BC, ANEU, CMP, GFR, ADIFF ####[place] [id number] [place] [address] Globulin 3.4 G/dL Normal 1.5-3.8 [facility] Comment on above: Performed By: #### C BC, ANEU, CMP, GFR, ADIFF ####[place] [id number] [place] [address] Glucose [Mass/Vol] 96 mg/dL Normal 70-110 [facility] Comment on above: Performed By: #### C BC, ANEU, CMP, GFR, ADIFF ####[place] [id number] [place] [address] Potassium [Moles/Vol] 3.9 mmol/L Normal 3.5-5.0 [facility] Comment on above: Performed By: #### C BC, ANEU, CMP, GFR, ADIFF ####[address] [address] Sodium [Moles/Vol] 141 mmol/L Normal 136-145 [facility] Comment on above: Performed By: #### C BC, ANEU, CMP, GFR, ADIFF ####[address] [address] Total Protein 6.8 G/dL Normal 5.7-8.2 [facility] Comment on above: Performed By: #### C BC, ANEU, CMP, GFR, ADIFF ####[address] [address] Urea nitrogen [Mass/Vol] 7.0 mg/dL Low 8.0-22.0 [facility] Comment on above: Performed By: #### C BC, ANEU, CMP, GFR, ADIFF ####[address] [address] LABORATORYOrdered By: SYSTEM SYSTEM on 10-20-2024 Carcinoembryonic Ag [Mass/Vol] 431.9 ng/mL High 0.0 - 3.0 ng/mL ADM SS Comment on above: Interpretive Data: C EA Reference Range for SMOKERS: 0.0 - 5.0 ng/mL. Testing performed on the STYLIGHT analyzer using direct chemiluminesent technology. Patient results [...] above: Interpretive Data: T esting performed on Actionsoft analyzer using enzymatic creatinine methodology. Electrolyte Balance [...] Basophil, Absolute 0.0 10 3/mcL Normal 0.0-0.3 [facility] Comment on above: Performed By: #### A DIFF, CMP, ANEU, GFR, CBC ####[address] [address] Basophils/100 WBC (Bld) 0.2 % Normal 0.0-2.5 [facility] Comment on above: Performed By: #### A DIFF, CMP, ANEU, GFR, CBC ####[address] [address] Eosinophil, Absolute 0.0 10 3/mcL Normal 0.0-0.7 [facility] Comment on above: Performed By: #### A DIFF, CMP, ANEU, GFR, CBC ####[address] [address] Eosinophils/100 WBC (Bld) 0.4 % Normal 0.0-6.0 [facility] Comment on above: Performed By: #### A DIFF, CMP, ANEU, GFR, CBC ####[address] [address] Lymphocyte, Absolute 1.9 10 3/mcL Normal 0.9-4.3 [facility] Comment on above: Performed By: #### A DIFF, CMP, ANEU, GFR, CBC ####[address] [address] Lymphocytes/100 WBC (Bld) 20.0 % Normal 20.0-40.0 [facility] Comment on above: Performed By: #### A DIFF, CMP, ANEU, GFR, CBC ####[address] [address] Monocyte, Absolute 0.4 10 3/mcL Normal 0.1-1.4 [facility] Comment on above: Performed By: #### A DIFF, CMP, ANEU, GFR, CBC ####[address] [address] Monocytes/100 WBC (Bld) 4.6 % Normal 2.0-13.0 [facility] Comment on above: Performed By: #### A DIFF, CMP, ANEU, GFR, CBC ####[address] [address] Neutrophils/100 WBC (Bld) 74.8 % Normal 50.0-75.0 [facility] Comment on above: Performed By: #### A DIFF, CMP, ANEU, GFR, CBC ####[address] [address] .GFRon 10-06-2024 Estimated Glomerular Filtration Rate 116 ml/min/1.73sqm Normal [facility] Comment on above: Result Comment: Stag [...] DIFF, CMP, ANEU, GFR, CBC ####[place] [address] .NEUABSon 10-06-2024 Neutrophil, Absolute 7.2 10 3/mcL Normal 2.3-8.1 [facility] Comment on above: Performed By: #### A DIFF, CMP, ANEU, GFR, CBC ####[place] [address] CBCon 10-06-2024 Erythrocyte distribution width (RBC) [Ratio] 22.5 % High 11.5-15.5 [facility] Comment on above: Performed By: #### A DIFF, CMP, ANEU, GFR, CBC ####[place] [address] Hematocrit (Bld) [Volume fraction] 30.6 % Low 34.0-46.0 [facility] Comment on above: Performed By: #### A DIFF, CMP, ANEU, GFR, CBC ####[place] [address] Hgb 9.2 G/dL Low 12.0-16.0 [facility] Comment on above: Performed By: #### A DIFF, CMP, ANEU, GFR, CBC ####[place] [address] MCH (RBC) [Entitic mass] 22.2 pg Low 27.0-33.0 [facility] Comment on above: Performed By: #### A DIFF, CMP, ANEU, GFR, CBC ####[place] [address] MCHC 30.1 G/dL Low 32.0-36.0 [facility] Comment on above: Performed By: #### A DIFF, CMP, ANEU, GFR, CBC ####[place] [address] MCV (RBC) [Entitic vol] 73.6 fL Low 80.0-99.0 [facility] Comment on above: Performed By: #### A DIFF, CMP, ANEU, GFR, CBC ####[place] [address] Platelet 244 10 3/mcL Normal 150-450 [facility] Comment on above: Performed By: #### A DIFF, CMP, ANEU, GFR, CBC ####[place] [address] Platelet mean volume (Bld) [Entitic vol] 9.2 fL Normal 6.6-10.5 [facility] Comment on above: Performed By: #### A DIFF, CMP, ANEU, GFR, CBC ####[place] [address] RBC 4.15 10 6/mcL Normal 4.10-5.30 [facility] Comment on above: Performed By: #### A DIFF, CMP, ANEU, GFR, CBC ####[place] [address] WBC 9.6 10 3/mcL Normal 4.5-10.8 [facility] Comment on above: Performed By: #### A DIFF, CMP, ANEU, GFR, CBC ####[place] [address] CMPon 10-06-2024 Albumin Level 3.3 G/dL Normal 3.2-4.8 [facility] Comment on above: Performed By: #### A DIFF, CMP, ANEU, GFR, CBC ####[place] [address] Albumin/Globulin [Mass ratio] 0.8 {ratio} Low 0.9-1.6 [facility] Comment on above: Performed By: #### A DIFF, CMP, ANEU, GFR, CBC ####[place] [address] ALP [Catalytic activity/Vol] 262 U/L High 38-126 [facility] Comment on above: Performed By: #### A DIFF, CMP, ANEU, GFR, CBC ####[place] [address] ALT [Catalytic activity/Vol] 113 U/L High 10-49 [facility] Comment on above: Performed By: #### A DIFF, CMP, ANEU, GFR, CBC ####[place] [address] AST [Catalytic activity/Vol] 44 U/L High 8-34 [facility] Comment on above: Performed By: #### A DIFF, CMP, ANEU, GFR, CBC ####[address] [address] Bili Total 0.50 mg/dL Normal 0.20-1.20 [facility] Comment on above: Result Comment: Use of this assay is not recommended for patients undergoing treatment with eltrombopag due to the potential for falsely elevated results. Performed By: #### A DIFF, CMP, ANEU, GFR, CBC ####[address] [address] BUN/Creatinine Ratio 11.1 ratio Normal 10.0-22.0 [facility] Comment on above: Performed By: #### A DIFF, CMP, ANEU, GFR, CBC ####[address] [address] Calcium [Mass/Vol] 9.5 mg/dL Normal 8.7-10.4 [facility] Comment on above: Performed By: #### A DIFF, CMP, ANEU, GFR, CBC ####[address] [address] Chloride [Moles/Vol] 104 mmol/L Normal 98-110 [facility] Comment on above: Performed By: #### A DIFF, CMP, ANEU, GFR, CBC ####[address] [address] CO2 [Moles/Vol] 30 mmol/L Normal 22-32 [facility] Comment on above: Performed By: #### A DIFF, CMP, ANEU, GFR, CBC ####[address] [address] Creatinine [Mass/Vol] 0.54 mg/dL Normal 0.50-1.20 [facility] Comment on above: Result Comment: Test ing performed on Actionsoft analyzer using enzymatic creatinine methodology. Performed By: #### A DIFF, CMP, ANEU, GFR, CBC ####[address] [address] Electrolyte Balance 7.0 mEq/L Normal 4.0-15.0 [facility] Comment on above: Performed By: #### A DIFF, CMP, ANEU, GFR, CBC ####[address] [address] Globulin 3.9 G/dL High 1.5-3.8 [facility] Comment on above: Performed By: #### A DIFF, CMP, ANEU, GFR, CBC ####[address] [address] Glucose [Mass/Vol] 82 mg/dL Normal 70-110 [facility] Comment on above: Performed By: #### A DIFF, CMP, ANEU, GFR, CBC ####[address] [address] Potassium [Moles/Vol] 3.5 mmol/L Normal 3.5-5.0 [facility] Comment on above: Performed By: #### A DIFF, CMP, ANEU, GFR, CBC ####[address] [address] Sodium [Moles/Vol] 141 mmol/L Normal 136-145 [facility] Comment on above: Performed By: #### A DIFF, CMP, ANEU, GFR, CBC ####[address] [address] Total Protein 7.2 G/dL Normal 5.7-8.2 [facility] Comment on above: Performed By: #### A DIFF, CMP, ANEU, GFR, CBC ####[address] [address] Urea nitrogen [Mass/Vol] 6.0 mg/dL Low 8.0-22.0 [facility] Comment on above: Performed By: #### A DIFF, CMP, ANEU, GFR, CBC ####[address] [address] LABORATORYOrdered By: SYSTEM SYSTEM on 10-06-2024 Albumin [...] above: Interpretive Data: T esting performed on Actionsoft analyzer using enzymatic creatinine methodology. Electrolyte Balance [...] IR DRAINAGE CATH INJECTION FOR EVAL Normal [facility] .Auto Diffon 10-01-2024 Basophil, Absolute 0.0 10 3/mcL Normal 0.0-0.3 [facility] Comment on above: Performed By: #### A KRISTI, CBC, ADIFF ####[address] [address] Basophils/100 WBC (Bld) 0.3 % Normal 0.0-2.5 [facility] Comment on above: Performed By: #### A KRISTI, CBC, ADIFF ####[address] [address] Eosinophil, Absolute 0.0 10 3/mcL Normal 0.0-0.7 [facility] Comment on above: Performed By: #### A KRISTI, CBC, ADIFF ####[address] [address] Eosinophils/100 WBC (Bld) 0.2 % Normal 0.0-6.0 [facility] Comment on above: Performed By: #### A KRISTI, CBC, ADIFF ####[address] [address] Lymphocyte, Absolute 1.1 10 3/mcL Normal 0.9-4.3 [facility] Comment on above: Performed By: #### A KRISTI, CBC, ADIFF ####[address] [address] Lymphocytes/100 WBC (Bld) 8.3 % Low 20.0-40.0 [facility] Comment on above: Performed By: #### A KRISTI, CBC, ADIFF ####[place] [address] Monocyte, Absolute 0.9 10 3/mcL Normal 0.1-1.4 [facility] Comment on above: Performed By: #### A KRISTI, CBC, ADIFF ####[address] [address] Monocytes/100 WBC (Bld) 6.7 % Normal 2.0-13.0 [facility] Comment on above: Performed By: #### A KRISTI, CBC, ADIFF ####[place] [address] Neutrophils/100 WBC (Bld) 84.5 % High 50.0-75.0 [facility] MAIN Comment on above: Performed By: #### A KRISTI, CBC, ADIFF ####[place] [address] .NEUABSon 10-01-2024 Neutrophil, Absolute 11.3 10 3/mcL High 2.3-8.1 [facility] MAIN Comment on above: Performed By: #### A KRISTI, CBC, ADIFF ####[place] [address] CBCon 10-01-2024 Erythrocyte distribution width (RBC) [Ratio] 23.2 % High 11.5-15.5 [facility] MAIN Comment on above: Performed By: #### A KRISTI, CBC, ADIFF ####[place] [address] Hematocrit (Bld) [Volume fraction] 31.7 % Low 34.0-46.0 [facility] MAIN Comment on above: Performed By: #### A KRISTI, CBC, ADIFF ####[place] [address] Hgb 9.8 G/dL Low 12.0-16.0 [facility] MAIN Comment on above: Performed By: #### A KRISTI, CBC, ADIFF ####[place] [address] MCH (RBC) [Entitic mass] 22.7 pg Low 27.0-33.0 [facility] MAIN Comment on above: Performed By: #### A KRISTI, CBC, ADIFF ####[place] [address] MCHC 30.9 G/dL Low 32.0-36.0 [facility] MAIN Comment on above: Performed By: #### A KRISTI, CBC, ADIFF ####[place] [address] MCV (RBC) [Entitic vol] 73.3 fL Low 80.0-99.0 [facility] MAIN Comment on above: Performed By: #### A KRISTI, CBC, ADIFF ####[place] [address] Platelet 302 10 3/mcL Normal 150-450 [facility] MAIN Comment on above: Performed By: #### A KRISTI, CBC, ADIFF ####[place] [address] Platelet mean volume (Bld) [Entitic vol] 8.4 fL Normal 6.6-10.5 [facility] MAIN Comment on above: Performed By: #### A KRISTI, CBC, ADIFF ####[place] [address] RBC 4.32 10 6/mcL Normal 4.10-5.30 [facility] MAIN Comment on above: Performed By: #### A KRISTI, CBC, ADIFF ####[place] [address] WBC 13.4 10 3/mcL High 4.5-10.8 [facility] MAIN Comment on above: Performed By: #### A KRISTI, CBC, ADIFF ####[place] [address] LABORATORYOrdered By: SYSTEM SYSTEM on 10-01-2024 Basophils [...] A DIFF, CEA, CMP, GFR, CBC, ANEU ####[address] [address] Eosinophil, Absolute 0.1 10 3/mcL Normal 0.0-0.7 [facility] MAIN Comment on above: Performed By: #### A DIFF, CEA, CMP, GFR, CBC, ANEU ####[address] [address] Lymphocyte, Absolute 1.1 10 3/mcL Normal 0.9-4.3 [facility] MAIN Comment on above: Performed By: #### A DIFF, CEA, CMP, GFR, CBC, ANEU ####[address] [address] Monocyte, Absolute 0.3 10 3/mcL Normal 0.1-1.4 [facility] MAIN Comment on above: Performed By: #### A DIFF, CEA, CMP, GFR, CBC, ANEU ####[address] [address] .Auto DiffOrdered By: SYSTEM SYSTEM on 09-22-2024 Basophils/100 WBC (Bld) 0.5 % Normal 0.0-2.5 A H Workflow SS Comment on above: Performed By: #### A DIFF, CEA, CMP, GFR, CBC, ANEU ####[address] [address] Eosinophils/100 WBC (Bld) 2.0 % Normal 0.0-6.0 [facility] Workflow SS Comment on above: Performed By: #### A DIFF, CEA, CMP, GFR, CBC, ANEU ####[address] [address] Lymphocytes/100 WBC (Bld) 25.8 % Normal 20.0-40.0 [facility] Workflow SS Comment on above: Performed By: #### A DIFF, CEA, CMP, GFR, CBC, ANEU ####[address] [address] Monocytes/100 WBC (Bld) 7.8 % Normal 2.0-13.0 A H Workflow SS Comment on above: Performed By: #### A DIFF, CEA, CMP, GFR, CBC, ANEU ####[place] [address] Neutrophils/100 WBC (Bld) 63.9 % Normal 50.0-75.0 Workflow SS Comment on above: Performed By: #### A DIFF, CEA, CMP, GFR, CBC, ANEU ####[place] [address] .GFRon 09-22-2024 GFR/1.73 sq M.predicted among non-blacks MDRD (S/P/Bld) [Vol rate/Area] mL/min/{1.73_m2} Normal [facility] MAIN Comment on above: Result Comment: Stag [...] CEA, CMP, GFR, CBC, ANEU ####[place] [address] .NEUABSon 09-22-2024 Neutrophil, Absolute 2.8 10 3/mcL Normal 2.3-8.1 [facility] MAIN Comment on above: Performed By: #### A DIFF, CEA, CMP, GFR, CBC, ANEU ####[place] [address] CBCOrdered By: SYSTEM SYSTEM on 09-22-2024 Erythrocyte distribution width (RBC) [Ratio] 23.0 % High 11.5-15.5 Workflow SS Comment on above: Performed By: #### A DIFF, CEA, CMP, GFR, CBC, ANEU ####[place] [address] Hematocrit (Bld) [Volume fraction] 26.7 % Low 34.0-46.0 AH Workflow SS Comment on above: Performed By: #### A DIFF, CEA, CMP, GFR, CBC, ANEU ####[place] [address] MCH (RBC) [Entitic mass] 22.8 pg Low 27.0-33.0 AH Workflow SS Comment on above: Performed By: #### A DIFF, CEA, CMP, GFR, CBC, ANEU ####[place] [address] MCHC 31.0 G/dL Low 32.0-36.0 AH Workflow SS Comment on above: Performed By: #### A DIFF, CEA, CMP, GFR, CBC, ANEU ####[place] [address] MCV (RBC) [Entitic vol] 73.4 fL Low 80.0-99.0 A H Workflow SS Comment on above: Performed By: #### A DIFF, CEA, CMP, GFR, CBC, ANEU ####[place] [address] Platelet mean volume (Bld) [Entitic vol] 8.0 fL Normal 6.6-10.5 AH Workflow SS Comment on above: Performed By: #### A DIFF, CEA, CMP, GFR, CBC, ANEU ####[place] [address] CBCon 09-22-2024 Hgb 8.3 G/dL Low 12.0-16.0 [facility] MAIN Comment on above: Performed By: #### A DIFF, CEA, CMP, GFR, CBC, ANEU ####[place] [address] Platelet 326 10 3/mcL Normal 150-450 [facility] MAIN Comment on above: Performed By: #### A DIFF, CEA, CMP, GFR, CBC, ANEU ####[place] [address] RBC 3.64 10 6/mcL Low 4.10-5.30 [facility] MAIN Comment on above: Performed By: #### A DIFF, CEA, CMP, GFR, CBC, ANEU ####[place] [address] WBC 4.3 10 3/mcL Low 4.5-10.8 [facility] MAIN Comment on above: Performed By: #### A DIFF, CEA, CMP, GFR, CBC, ANEU ####[place] [address] CEAon 09-22-2024 CEA 417.9 ng/mL High 0.0-3.0 [facility] MAIN Comment on above: Result Comment: CEA Reference Range for SMOKERS: 0.0 - 5.0 ng/mL.Testing performed on the STYLIGHT analyzer usingdirect chemiluminesent technology. Patient resultsdetermined by assays using different manufacturers for methods may not be comparable. Performed By: #### A DIFF, CEA, CMP, GFR, CBC, ANEU ####[place] [address] CMPon 09-22-2024 Albumin Level 2.9 G/dL Low 3.2-4.8 [facility] MAIN Comment on above: Performed By: #### A DIFF, CEA, CMP, GFR, CBC, ANEU ####[place] [address] ALT [Catalytic activity/Vol] 12 U/L Normal 10-49 [facility] MAIN Comment on above: Performed By: #### A DIFF, CEA, CMP, GFR, CBC, ANEU ####[place] [address] Bili Total 0.50 mg/dL Normal 0.20-1.20 [facility] MAIN Comment on above: Result Comment: Use of this assay is not recommended for patients undergoing treatment with eltrombopag due to the potential for falsely elevated results. Performed By: #### A DIFF, CEA, CMP, GFR, CBC, ANEU ####[place] [address] BUN/Creatinine Ratio 22.7 ratio High 10.0-22.0 [facility] MAIN Comment on above: Performed By: #### A DIFF, CEA, CMP, GFR, CBC, ANEU ####[place] [address] Total Protein 7.1 G/dL Normal 5.7-8.2 [facility] MAIN Comment on above: Performed By: #### A DIFF, CEA, CMP, GFR, CBC, ANEU ####[address] [address] CMPOrdered By: SYSTEM SYSTEM on 09-22-2024 Albumin/Globulin [Mass ratio] 0.7 {ratio} Low 0.9-1.6 AH ADM SS Comment on above: Performed By: #### A DIFF, CEA, CMP, GFR, CBC, ANEU ####[address] [address] ALP [Catalytic activity/Vol] 78 U/L Normal 38-126 AH ADM SS Comment on above: Performed By: #### A DIFF, CEA, CMP, GFR, CBC, ANEU ####[place] [address] AST [Catalytic activity/Vol] 16 U/L Normal 8-34 AH ADM SS Comment on above: Performed By: #### A DIFF, CEA, CMP, GFR, CBC, ANEU ####[place] [address] Calcium [Mass/Vol] 8.6 mg/dL Low 8.7-10.4 AH ADM SS Comment on above: Performed By: #### A DIFF, CEA, CMP, GFR, CBC, ANEU ####[address] [address] Chloride [Moles/Vol] 105 mmol/L Normal 98-110 AH A DM SS Comment on above: Performed By: #### A DIFF, CEA, CMP, GFR, CBC, ANEU ####[address] [address] CO2 [Moles/Vol] 29 mmol/L Normal 22-32 AH ADM SS Comment on above: Performed By: #### A DIFF, CEA, CMP, GFR, CBC, ANEU ####[place] [id number] Creatinine [Mass/Vol] 0.44 mg/dL Low 0.50-1.20 AH ADM SS Comment on above: Interpretive Data: T esting performed on [employer] CH analyzer using enzymatic creatinine methodology. Result Comment: Test ing performed on [employer] CH analyzer using enzymatic creatinine methodology. Performed By: #### A DIFF, CEA, CMP, GFR, CBC, ANEU ####[address] [address] Electrolyte Balance 5.0 mEq/L Normal 4.0-15.0 AH AD M SS Comment on above: Performed By: #### A DIFF, CEA, CMP, GFR, CBC, ANEU ####[address] [address] Globulin 4.2 G/dL High 1.5-3.8 AH ADM SS Comment on above: Performed By: #### A DIFF, CEA, CMP, GFR, CBC, ANEU ####[address] [address] Glucose [Mass/Vol] 100 mg/dL Normal 70-110 AH ADM SS Comment on above: Performed By: #### A DIFF, CEA, CMP, GFR, CBC, ANEU ####[place] [address] Potassium [Moles/Vol] 3.8 mmol/L Normal 3.5-5.0 AH ADM SS Comment on above: Performed By: #### A DIFF, CEA, CMP, GFR, CBC, ANEU ####[address] [address] Sodium [Moles/Vol] 139 mmol/L Normal 136-145 AH ADM SS Comment on above: Performed By: #### A DIFF, CEA, CMP, GFR, CBC, ANEU ####[address] [address] Urea nitrogen [Mass/Vol] 10.0 mg/dL Normal 8.0-22.0 AH ADM SS Comment on above: Performed By: #### A DIFF, CEA, CMP, GFR, CBC, ANEU ####[address] [address] LABORATORYOrdered By: SYSTEM SYSTEM on 09-22-2024 Albumin [...] - 5.0 ng/mL. Testing performed on the FiberLight IM analyzer using direct chemiluminesent technology. Patient [...] CT ABD/PELVIS W/ IV CONTRAST ONLY Normal [facility] IR DRAINAGE CATH INJECTION F OR EVALon 09-16-2024 IR DRAINAGE CATH INJECTION FOR EVAL Normal [facility] MAIN CT ABD/PELVIS W/ IV CONTRAST ONLYon 09-07-2024 CT ABD/PELVIS W/ IV CONTRAST ONLY Normal [facility] IR DRAINAGE CATH INJECTION F OR EVALon 09-04-2024 IR DRAINAGE CATH INJECTION FOR EVAL Normal [facility] .Auto Diffon 08-31-2024 Basophil, Absolute 0.0 10 3/mcL Normal 0.0-0.3 [facility] MAIN Comment on above: Performed By: #### A KRISTI, ADIFF, GFR, CBC, BMP ####[address] [address] Basophils/100 WBC (Bld) 0.2 % Normal 0.0-2.5 [facility] MAIN Comment on above: Performed By: #### A KRISTI, ADIFF, GFR, CBC, BMP ####[address] [address] Eosinophil, Absolute 0.0 10 3/mcL Normal 0.0-0.7 [facility] MAIN Comment on above: Performed By: #### A KRISTI, ADIFF, GFR, CBC, BMP ####[address] [address] Eosinophils/100 WBC (Bld) 0.1 % Normal 0.0-6.0 [facility] MAIN Comment on above: Performed By: #### A KRISTI, ADIFF, GFR, CBC, BMP ####[address] [address] Lymphocyte, Absolute 1.5 10 3/mcL Normal 0.9-4.3 [facility] MAIN Comment on above: Performed By: #### A KRISTI, ADIFF, GFR, CBC, BMP ####[address] [address] Lymphocytes/100 WBC (Bld) 13.4 % Low 20.0-40.0 [facility] MAIN Comment on above: Performed By: #### A KRISTI, ADIFF, GFR, CBC, BMP ####[address] [address] Monocyte, Absolute 0.7 10 3/mcL Normal 0.1-1.4 [facility] MAIN Comment on above: Performed By: #### A KRISTI, ADIFF, GFR, CBC, BMP ####[address] [address] Monocytes/100 WBC (Bld) 6.3 % Normal 2.0-13.0 [facility] MAIN Comment on above: Performed By: #### A KRISTI, ADIFF, GFR, CBC, BMP ####[address] [address] Neutrophils/100 WBC (Bld) 80.0 % High 50.0-75.0 [facility] MAIN Comment on above: Performed By: #### A KRISTI, ADIFF, GFR, CBC, BMP ####[address] [address] .GFRon 08-31-2024 GFR/1.73 sq M.predicted among non-blacks MDRD (S/P/Bld) [Vol rate/Area] mL/min/{1.73_m2} Normal [facility] MAIN Comment on above: Result Comment: Stag [...] #### A KRISTI, ADIFF, GFR, CBC, BMP ####[address] [address] .NEUABSon 08-31-2024 Neutrophil, Absolute 8.7 10 3/mcL High 2.3-8.1 [facility] MAIN Comment on above: Performed By: #### A KRISTI, ADIFF, GFR, CBC, BMP ####[place] [address] BMPon 08-31-2024 BUN/Creatinine Ratio 20.5 ratio Normal 10.0-22.0 [facility] MAIN Comment on above: Performed By: #### A KRISTI, ADIFF, GFR, CBC, BMP ####[place] [address] Calcium [Mass/Vol] 8.8 mg/dL Normal 8.7-10.4 [facility] MAIN Comment on above: Performed By: #### A KRISTI, ADIFF, GFR, CBC, BMP ####[place] [address] Chloride [Moles/Vol] 106 mmol/L Normal 98-110 [facility] MAIN Comment on above: Performed By: #### A KRISTI, ADIFF, GFR, CBC, BMP ####[place] [address] CO2 [Moles/Vol] 27 mmol/L Normal 22-32 [facility] MAIN Comment on above: Performed By: #### A KRISTI, ADIFF, GFR, CBC, BMP ####[place] [address] Creatinine [Mass/Vol] 0.44 mg/dL Low 0.50-1.20 [facility] MAIN Comment on above: Result Comment: Test ing performed on [employer] analyzer using enzymatic creatinine methodology. Performed By: #### A KRISTI, ADIFF, GFR, CBC, BMP ####[place] [address] Electrolyte Balance 6.0 mEq/L Normal 4.0-15.0 [facility] MAIN Comment on above: Performed By: #### A KRISTI, ADIFF, GFR, CBC, BMP ####[place] [address] Glucose [Mass/Vol] 99 mg/dL Normal 70-110 [facility] MAIN Comment on above: Performed By: #### A KRISTI, ADIFF, GFR, CBC, BMP ####[place] [address] Potassium [Moles/Vol] 3.5 mmol/L Normal 3.5-5.0 [facility] MAIN Comment on above: Performed By: #### A KRISTI, ADIFF, GFR, CBC, BMP ####[place] [address] Sodium [Moles/Vol] 139 mmol/L Normal 136-145 [facility] MAIN Comment on above: Performed By: #### A KRISTI, ADIFF, GFR, CBC, BMP ####[place] [address] Urea nitrogen [Mass/Vol] 9.0 mg/dL Normal 8.0-22.0 [facility] MAIN Comment on above: Performed By: #### A KRISTI, ADIFF, GFR, CBC, BMP ####[place] [address] CBCon 08-31-2024 Erythrocyte distribution width (RBC) [Ratio] 18.0 % High 11.5-15.5 [facility] MAIN Comment on above: Performed By: #### A KRISTI, ADIFF, GFR, CBC, BMP ####[place] [address] Hematocrit (Bld) [Volume fraction] 23.8 % Low 34.0-46.0 [facility] MAIN Comment on above: Performed By: #### A KRISTI, ADIFF, GFR, CBC, BMP ####[place] [address] Hgb 7.3 G/dL Low 12.0-16.0 [facility] MAIN Comment on above: Performed By: #### A KRISTI, ADIFF, GFR, CBC, BMP ####[address] [address] MCH (RBC) [Entitic mass] 21.2 pg Low 27.0-33.0 [facility] MAIN Comment on above: Performed By: #### A KRISTI, ADIFF, GFR, CBC, BMP ####[place] [address] MCHC 30.7 G/dL Low 32.0-36.0 [facility] MAIN Comment on above: Performed By: #### A KRISTI, ADIFF, GFR, CBC, BMP ####[place] [address] MCV (RBC) [Entitic vol] 69.1 fL Low 80.0-99.0 [facility] MAIN Comment on above: Performed By: #### A KRISTI, ADIFF, GFR, CBC, BMP ####[place] [address] Platelet 550 10 3/mcL High 150-450 [facility] MAIN Comment on above: Performed By: #### A KRISTI, ADIFF, GFR, CBC, BMP ####[place] [address] Platelet mean volume (Bld) [Entitic vol] 8.5 fL Normal 6.6-10.5 [facility] MAIN Comment on above: Performed By: #### A KRISTI, ADIFF, GFR, CBC, BMP ####[place] [address] RBC 3.44 10 6/mcL Low 4.10-5.30 [facility] MAIN Comment on above: Performed By: #### A KRISTI, ADIFF, GFR, CBC, BMP ####[place] [address] WBC 10.9 10 3/mcL High 4.5-10.8 [facility] MAIN Comment on above: Performed By: #### A KRISTI, ADIFF, GFR, CBC, BMP ####[place] [address] CBFon 08-31-2024 CBF Normal [facility] MAIN LABORATORYOrdered By: SYSTEM SYSTEM on 08-31-2024 [...] above: Interpretive Data: T esting performed on [employer] analyzer using enzymatic creatinine methodology. Electrolyte Balance [...] Basophil, Absolute 0.0 10 3/mcL Normal 0.0-0.3 [facility] MAIN Comment on above: Performed By: #### A DIFF, BMP, ANEU, CBC, GFR ####[address] [address] Basophils/100 WBC (Bld) 0.3 % Normal 0.0-2.5 [facility] MAIN Comment on above: Performed By: #### A DIFF, BMP, ANEU, CBC, GFR ####[address] [address] Eosinophil, Absolute 0.0 10 3/mcL Normal 0.0-0.7 [facility] MAIN Comment on above: Performed By: #### A DIFF, BMP, ANEU, CBC, GFR ####[address] [address] Eosinophils/100 WBC (Bld) 0.0 % Normal 0.0-6.0 [facility] MAIN Comment on above: Performed By: #### A DIFF, BMP, ANEU, CBC, GFR ####[address] [address] Lymphocyte, Absolute 2.2 10 3/mcL Normal 0.9-4.3 [facility] MAIN Comment on above: Performed By: #### A DIFF, BMP, ANEU, CBC, GFR ####[address] [address] Lymphocytes/100 WBC (Bld) 16.9 % Low 20.0-40.0 [facility] MAIN Comment on above: Performed By: #### A DIFF, BMP, ANEU, CBC, GFR ####[address] [address] Monocyte, Absolute 0.6 10 3/mcL Normal 0.1-1.4 [facility] MAIN Comment on above: Performed By: #### A DIFF, BMP, ANEU, CBC, GFR ####[address] [address] Monocytes/100 WBC (Bld) 4.8 % Normal 2.0-13.0 [facility] MAIN Comment on above: Performed By: #### A DIFF, BMP, ANEU, CBC, GFR ####[address] [address] Neutrophils/100 WBC (Bld) 78.0 % High 50.0-75.0 [facility] MAIN Comment on above: Performed By: #### A DIFF, BMP, ANEU, CBC, GFR ####[address] [address] .GFRon 08-30-2024 Estimated Glomerular Filtration Rate 116 ml/min/1.73sqm Normal [facility] MAIN Comment on above: Result Comment: Stag [...] #### A DIFF, BMP, ANEU, CBC, GFR ####[address] [address] .NEUABSon 08-30-2024 Neutrophil, Absolute 9.9 10 3/mcL High 2.3-8.1 [facility] MAIN Comment on above: Performed By: #### A DIFF, BMP, ANEU, CBC, GFR ####[address] [address] BMPon 08-30-2024 BUN/Creatinine Ratio 24.1 ratio High 10.0-22.0 [facility] MAIN Comment on above: Performed By: #### A DIFF, BMP, ANEU, CBC, GFR ####[address] [address] Calcium [Mass/Vol] 8.7 mg/dL Normal 8.7-10.4 [facility] MAIN Comment on above: Performed By: #### A DIFF, BMP, ANEU, CBC, GFR ####[address] [address] Chloride [Moles/Vol] 105 mmol/L Normal 98-110 [facility] MAIN Comment on above: Performed By: #### A DIFF, BMP, ANEU, CBC, GFR ####[place] [address] CO2 [Moles/Vol] 26 mmol/L Normal 22-32 [facility] MAIN Comment on above: Performed By: #### A DIFF, BMP, ANEU, CBC, GFR ####[place] [address] Creatinine [Mass/Vol] 0.54 mg/dL Normal 0.50-1.20 [facility] MAIN Comment on above: Result Comment: Test ing performed on [employer] analyzer using enzymatic creatinine methodology. Performed By: #### A DIFF, BMP, ANEU, CBC, GFR ####[place] [address] Electrolyte Balance 8.0 mEq/L Normal 4.0-15.0 [facility] MAIN Comment on above: Performed By: #### A DIFF, BMP, ANEU, CBC, GFR ####[place] [address] Glucose [Mass/Vol] 137 mg/dL High 70-110 [facility] MAIN Comment on above: Performed By: #### A DIFF, BMP, ANEU, CBC, GFR ####[place] [address] Potassium [Moles/Vol] 3.0 mmol/L Low 3.5-5.0 [facility] MAIN Comment on above: Performed By: #### A DIFF, BMP, ANEU, CBC, GFR ####[place] [address] Sodium [Moles/Vol] 139 mmol/L Normal 136-145 [facility] MA[facility] Comment on above: Performed By: #### A DIFF, BMP, ANEU, CBC, GFR ####[place] [address] Urea nitrogen [Mass/Vol] 13.0 mg/dL Normal 8.0-22.0 [facility] MA[facility] Comment on above: Performed By: #### A DIFF, BMP, ANEU, CBC, GFR ####[place] [address] CBCon 08-30-2024 Erythrocyte distribution width (RBC) [Ratio] 17.7 % High 11.5-15.5 [facility] MA[facility] Comment on above: Performed By: #### A DIFF, BMP, ANEU, CBC, GFR ####[place] [address] Hematocrit (Bld) [Volume fraction] 24.5 % Low 34.0-46.0 [facility] MA[facility] Comment on above: Performed By: #### A DIFF, BMP, ANEU, CBC, GFR ####[place] [address] Hgb 8.0 G/dL Low 12.0-16.0 [facility] MA[facility] Comment on above: Performed By: #### A DIFF, BMP, ANEU, CBC, GFR ####[place] [address] MCH (RBC) [Entitic mass] 22.6 pg Low 27.0-33.0 [facility] MA[facility] Comment on above: Performed By: #### A DIFF, BMP, ANEU, CBC, GFR ####[place] [address] MCHC 32.6 G/dL Normal 32.0-36.0 [facility] MA[facility] Comment on above: Performed By: #### A DIFF, BMP, ANEU, CBC, GFR ####[place] [address] MCV (RBC) [Entitic vol] 69.4 fL Low 80.0-99.0 [facility] MAIN Comment on above: Performed By: #### A DIFF, BMP, ANEU, CBC, GFR ####[place] [address] Platelet 529 10 3/mcL High 150-450 [facility] MAIN Comment on above: Performed By: #### A DIFF, BMP, ANEU, CBC, GFR ####[place] [address] Platelet mean volume (Bld) [Entitic vol] 8.4 fL Normal 6.6-10.5 [facility] MA[facility] Comment on above: Performed By: #### A DIFF, BMP, ANEU, CBC, GFR ####[id number] [place] [address] RBC 3.54 10 6/mcL Low 4.10-5.30 [facility] MA[facility] Comment on above: Performed By: #### A DIFF, BMP, ANEU, CBC, GFR ####[facility] [place] [address] WBC 12.7 10 3/mcL High 4.5-10.8 [facility] MAIN Comment on above: Performed By: #### A DIFF, BMP, ANEU, CBC, GFR ####[place] [address] [place] [address] LABORATORYOrdered By: SYSTEM SYSTEM on 08-30-2024 Basophils [...] above: Interpretive Data: T esting performed on [employer] CH analyzer using enzymatic creatinine methodology. Electrolyte [...] Basophil, Absolute 0.0 10 3/mcL Normal 0.0-0.3 [facility] MA[facility] Comment on above: Performed By: #### B MP, PHOS, GFR, ANEU, ADIFF, CBC, MG ####[address] [address] Basophils/100 WBC (Bld) 0.1 % Normal 0.0-2.5 [facility] Comment on above: Performed By: #### B MP, PHOS, GFR, ANEU, ADIFF, CBC, MG ####[address] [address] Eosinophil, Absolute 0.0 10 3/mcL Normal 0.0-0.7 [facility] Comment on above: Performed By: #### B MP, PHOS, GFR, ANEU, ADIFF, CBC, MG ####[address] [address] Eosinophils/100 WBC (Bld) 0.0 % Normal 0.0-6.0 [facility] Comment on above: Performed By: #### B MP, PHOS, GFR, ANEU, ADIFF, CBC, MG ####[address] [address] Lymphocyte, Absolute 0.9 10 3/mcL Normal 0.9-4.3 [facility] Comment on above: Performed By: #### B MP, PHOS, GFR, ANEU, ADIFF, CBC, MG ####[address] [address] Lymphocytes/100 WBC (Bld) 8.0 % Low 20.0-40.0 [facility] Comment on above: Performed By: #### B MP, PHOS, GFR, ANEU, ADIFF, CBC, MG ####[place] [id number] [place] [address] Monocyte, Absolute 0.3 10 3/mcL Normal 0.1-1.4 [facility] Comment on above: Performed By: #### B MP, PHOS, GFR, ANEU, ADIFF, CBC, MG ####[place] [id number] [place] [address] Monocytes/100 WBC (Bld) 2.7 % Normal 2.0-13.0 [facility] Comment on above: Performed By: #### B MP, PHOS, GFR, ANEU, ADIFF, CBC, MG ####[place] [address] [place] [address] Neutrophils/100 WBC (Bld) 89.2 % High 50.0-75.0 [facility] Comment on above: Performed By: #### B MP, PHOS, GFR, ANEU, ADIFF, CBC, MG ####[address] [address] .GFRon 08-29-2024 GFR/1.73 sq M.predicted among non-blacks MDRD (S/P/Bld) [Vol rate/Area] mL/min/{1.73_m2} Normal [facility] Comment on above: Result Comment: Stag [...] MP, PHOS, GFR, ANEU, ADIFF, CBC, MG ####[address] [address] .NEUABSon 08-29-2024 Neutrophil, Absolute 10.4 10 3/mcL High 2.3-8.1 [facility] Comment on above: Performed By: #### B MP, PHOS, GFR, ANEU, ADIFF, CBC, MG ####[place] [id number] BMPon 08-29-2024 BUN/Creatinine Ratio 21.4 ratio Normal 10.0-22.0 [facility] Comment on above: Performed By: #### B MP, PHOS, GFR, ANEU, ADIFF, CBC, MG ####[place] [address] Calcium [Mass/Vol] 9.1 mg/dL Normal 8.7-10.4 [facility] Comment on above: Performed By: #### B MP, PHOS, GFR, ANEU, ADIFF, CBC, MG ####[place] [address] Chloride [Moles/Vol] 103 mmol/L Normal 98-110 [facility] Comment on above: Performed By: #### B MP, PHOS, GFR, ANEU, ADIFF, CBC, MG ####[place] [address] CO2 [Moles/Vol] 30 mmol/L Normal 22-32 [facility] Comment on above: Performed By: #### B MP, PHOS, GFR, ANEU, ADIFF, CBC, MG ####[place] [address] Creatinine [Mass/Vol] 0.42 mg/dL Low 0.50-1.20 [facility] Comment on above: Result Comment: Test ing performed on Actionsoft analyzer using enzymatic creatinine methodology. Performed By: #### B MP, PHOS, GFR, ANEU, ADIFF, CBC, MG ####[place] [address] Electrolyte Balance 6.0 mEq/L Normal 4.0-15.0 [facility] Comment on above: Performed By: #### B MP, PHOS, GFR, ANEU, ADIFF, CBC, MG ####[place] [address] Glucose [Mass/Vol] 142 mg/dL High 70-110 [facility] Comment on above: Performed By: #### B MP, PHOS, GFR, ANEU, ADIFF, CBC, MG ####[place] [address] Potassium [Moles/Vol] 3.5 mmol/L Normal 3.5-5.0 [facility] Comment on above: Performed By: #### B MP, PHOS, GFR, ANEU, ADIFF, CBC, MG ####[place] [address] Sodium [Moles/Vol] 139 mmol/L Normal 136-145 [facility] Comment on above: Performed By: #### B MP, PHOS, GFR, ANEU, ADIFF, CBC, MG ####[place] [address] Urea nitrogen [Mass/Vol] 9.0 mg/dL Normal 8.0-22.0 [facility] Comment on above: Performed By: #### B MP, PHOS, GFR, ANEU, ADIFF, CBC, MG ####[place] [address] CBCon 08-29-2024 Erythrocyte distribution width (RBC) [Ratio] 17.8 % High 11.5-15.5 [facility] Comment on above: Performed By: #### B MP, PHOS, GFR, ANEU, ADIFF, CBC, MG ####[place] [address] Hematocrit (Bld) [Volume fraction] 23.6 % Low 34.0-46.0 [facility] Comment on above: Performed By: #### B MP, PHOS, GFR, ANEU, ADIFF, CBC, MG ####[place] [address] Hgb 7.2 G/dL Low 12.0-16.0 [facility] Comment on above: Performed By: #### B MP, PHOS, GFR, ANEU, ADIFF, CBC, MG ####[place] [address] MCH (RBC) [Entitic mass] 21.4 pg Low 27.0-33.0 [facility] Comment on above: Performed By: #### B MP, PHOS, GFR, ANEU, ADIFF, CBC, MG ####[place] [address] MCHC 30.3 G/dL Low 32.0-36.0 [facility] Comment on above: Performed By: #### B MP, PHOS, GFR, ANEU, ADIFF, CBC, MG ####[place] [address] MCV (RBC) [Entitic vol] 70.6 fL Low 80.0-99.0 [facility] Comment on above: Performed By: #### B MP, PHOS, GFR, ANEU, ADIFF, CBC, MG ####[place] [address] Platelet 399 10 3/mcL Normal 150-450 [facility] Comment on above: Performed By: #### B MP, PHOS, GFR, ANEU, ADIFF, CBC, MG ####[place] [address] Platelet mean volume (Bld) [Entitic vol] 8.4 fL Normal 6.6-10.5 [facility] Comment on above: Performed By: #### B MP, PHOS, GFR, ANEU, ADIFF, CBC, MG ####[place] [address] RBC 3.34 10 6/mcL Low 4.10-5.30 [facility] Comment on above: Performed By: #### B MP, PHOS, GFR, ANEU, ADIFF, CBC, MG ####[place] [address] WBC 11.7 10 3/mcL High 4.5-10.8 [facility] Comment on above: Performed By: #### B MP, PHOS, GFR, ANEU, ADIFF, CBC, MG ####[facility] [place], [place] [id number] CBLon 08-29-2024 CBL Normal [facility] IR ASPIRATION/DRAINAGEon IR ASPIRATION/DRAINAGE Normal [facility] MAIN LABORATORYOrdered By: SYSTEM SYSTEM on 08-29-2024 [...] above: Interpretive Data: T esting performed on Actionsoft analyzer using enzymatic creatinine methodology. Electrolyte Balance [...] 08-29-2024 Magnesium [Mass/Vol] 2.0 mg/dL Normal 1.6-2.4 [facility] Comment on above: Performed By: #### B MP, PHOS, GFR, ANEU, ADIFF, CBC, MG ####[place] [address] PHOSon 08-29-2024 Phosphate [Mass/Vol] 4.4 mg/dL Normal 2.4-5.1 [facility] Comment on above: Result Comment: No te - New Reference Range in effect 20 Performed By: #### B MP, PHOS, GFR, ANEU, ADIFF, CBC, MG ####[place] [address] .Auto Diffon 08-28-2024 Basophil, Absolute 0.0 10 3/mcL Normal 0.0-0.3 [facility] Comment on above: Performed By: #### B MP, ADIFF, MORPH, CBC, GFR, PHOS, MG, ANEU ####[place] [address] Basophils/100 WBC (Bld) 0.2 % Normal 0.0-2.5 [facility] Comment on above: Performed By: #### B MP, ADIFF, MORPH, CBC, GFR, PHOS, MG, ANEU ####[place] [address] Eosinophil, Absolute 0.0 10 3/mcL Normal 0.0-0.7 [facility] Comment on above: Performed By: #### B MP, ADIFF, MORPH, CBC, GFR, PHOS, MG, ANEU ####[address] [address] Eosinophils/100 WBC (Bld) 0.0 % Normal 0.0-6.0 [facility] Comment on above: Performed By: #### B MP, ADIFF, MORPH, CBC, GFR, PHOS, MG, ANEU ####[address] [address] Lymphocyte, Absolute 1.4 10 3/mcL Normal 0.9-4.3 [facility] Comment on above: Performed By: #### B MP, ADIFF, MORPH, CBC, GFR, PHOS, MG, ANEU ####[address] [address] Lymphocytes/100 WBC (Bld) 10.6 % Low 20.0-40.0 [facility] Comment on above: Performed By: #### B MP, ADIFF, MORPH, CBC, GFR, PHOS, MG, ANEU ####[address] [address] Monocyte, Absolute 0.7 10 3/mcL Normal 0.1-1.4 [facility] Comment on above: Performed By: #### B MP, ADIFF, MORPH, CBC, GFR, PHOS, MG, ANEU ####[address] [address] Monocytes/100 WBC (Bld) 4.9 % Normal 2.0-13.0 [facility] Comment on above: Performed By: #### B MP, ADIFF, MORPH, CBC, GFR, PHOS, MG, ANEU ####[address] [address] Neutrophils/100 WBC (Bld) 84.3 % High 50.0-75.0 [facility] Comment on above: Performed By: #### B MP, ADIFF, MORPH, CBC, GFR, PHOS, MG, ANEU ####[address] [address] .GFRon 08-28-2024 GFR/1.73 sq M.predicted among non-blacks MDRD (S/P/Bld) [Vol rate/Area] mL/min/{1.73_m2} Normal [facility] Comment on above: Result Comment: Stag [...] CBC, GFR, PHOS, MG, ANEU ####[place] [address] .Morphon 08-28-2024 Microcytosis 2+ Normal [facility] Comment on above: Performed By: #### B MP, ADIFF, MORPH, CBC, GFR, PHOS, MG, ANEU ####[place] [address] Platelet Estimate Slt Increased Normal [facility] Comment on above: Performed By: #### B MP, ADIFF, MORPH, CBC, GFR, PHOS, MG, ANEU ####[address] [address] .NEUABSon 08-28-2024 Neutrophil, Absolute 11.1 10 3/mcL High 2.3-8.1 [facility] Comment on above: Performed By: #### B MP, ADIFF, MORPH, CBC, GFR, PHOS, MG, ANEU ####[place] [address] ABO/Rh (Gel)on 08-28-2024 ABO/Rh Interp Positive Invalid Interpretation Code [facility] Comment on above: Order Comment: Order ed by Discern Performed By: #### A SANDY, ABSGEL ####[place] [address] ABS (Gel)on 08-28-2024 ABSC Interp (Gel) Negative Normal [facility] Comment on above: Order Comment: Order ed by Discern Performed By: #### A KESHAV DELGADO ####[address] [address] BMPon 08-28-2024 BUN/Creatinine Ratio Unable to Calculate Normal 10.0-2 2.0 [facility] Comment on above: Result Comment: Unab le to calculate this test result accurately. Results used to calculate this test are outside the reportable range. Performed By: #### B MP, ADIFF, MORPH, CBC, GFR, PHOS, MG, ANEU ####[address] [address] Urea nitrogen [Mass/Vol] mg/dL Low 8.0-22.0 [facility] Comment on above: Performed By: #### B MP, ADIFF, MORPH, CBC, GFR, PHOS, MG, ANEU ####[address] [address] Calcium [Mass/Vol] 8.9 mg/dL Normal 8.7-10.4 [facility] Comment on above: Performed By: #### B MP, ADIFF, MORPH, CBC, GFR, PHOS, MG, ANEU ####[address] [address] Chloride [Moles/Vol] 103 mmol/L Normal 98-110 [facility] Comment on above: Performed By: #### B MP, ADIFF, MORPH, CBC, GFR, PHOS, MG, ANEU ####[address] [address] CO2 [Moles/Vol] 28 mmol/L Normal 22-32 [facility] Comment on above: Performed By: #### B MP, ADIFF, MORPH, CBC, GFR, PHOS, MG, ANEU ####[address] [address] Creatinine [Mass/Vol] 0.45 mg/dL Low 0.50-1.20 [facility] Comment on above: Result Comment: Test ing performed on Actionsoft analyzer using enzymatic creatinine methodology. Performed By: #### B MP, ADIFF, MORPH, CBC, GFR, PHOS, MG, ANEU ####[place] [address] Electrolyte Balance 7.0 mEq/L Normal 4.0-15.0 [facility] Comment on above: Performed By: #### B MP, ADIFF, MORPH, CBC, GFR, PHOS, MG, ANEU ####[place] [address] Glucose [Mass/Vol] 110 mg/dL Normal 70-110 [facility] Comment on above: Performed By: #### B MP, ADIFF, MORPH, CBC, GFR, PHOS, MG, ANEU ####[place] [address] Potassium [Moles/Vol] 3.2 mmol/L Low 3.5-5.0 [facility] Comment on above: Performed By: #### B MP, ADIFF, MORPH, CBC, GFR, PHOS, MG, ANEU ####[place] [address] Sodium [Moles/Vol] 138 mmol/L Normal 136-145 [facility] Comment on above: Performed By: #### B MP, ADIFF, MORPH, CBC, GFR, PHOS, MG, ANEU ####[place] [address] CBCon 08-28-2024 Erythrocyte distribution width (RBC) [Ratio] 17.2 % High 11.5-15.5 [facility] Comment on above: Performed By: #### B MP, ADIFF, MORPH, CBC, GFR, PHOS, MG, ANEU ####[place] [address] Hematocrit (Bld) [Volume fraction] 25.0 % Low 34.0-46.0 [facility] Comment on above: Performed By: #### B MP, ADIFF, MORPH, CBC, GFR, PHOS, MG, ANEU ####[place] [address] Hgb 8.0 G/dL Low 12.0-16.0 [facility] Comment on above: Performed By: #### B MP, ADIFF, MORPH, CBC, GFR, PHOS, MG, ANEU ####[place] [address] MCH (RBC) [Entitic mass] 21.9 pg Low 27.0-33.0 [facility] Comment on above: Performed By: #### B MP, ADIFF, MORPH, CBC, GFR, PHOS, MG, ANEU ####[place] [address] MCHC 31.8 G/dL Low 32.0-36.0 [facility] Comment on above: Performed By: #### B MP, ADIFF, MORPH, CBC, GFR, PHOS, MG, ANEU ####[place] [address] MCV (RBC) [Entitic vol] 68.9 fL Low 80.0-99.0 [facility] Comment on above: Performed By: #### B MP, ADIFF, MORPH, CBC, GFR, PHOS, MG, ANEU ####[place] [address] Platelet 451 10 3/mcL High 150-450 [facility] Comment on above: Performed By: #### B MP, ADIFF, MORPH, CBC, GFR, PHOS, MG, ANEU ####[place] [address] Platelet mean volume (Bld) [Entitic vol] 8.6 fL Normal 6.6-10.5 [facility] Comment on above: Performed By: #### B MP, ADIFF, MORPH, CBC, GFR, PHOS, MG, ANEU ####[place] [address] RBC 3.62 10 6/mcL Low 4.10-5.30 [facility] Comment on above: Performed By: #### B MP, ADIFF, MORPH, CBC, GFR, PHOS, MG, ANEU ####[place] [address] WBC 13.2 10 3/mcL High 4.5-10.8 [facility] Comment on above: Performed By: #### B MP, ADIFF, MORPH, CBC, GFR, PHOS, MG, ANEU ####[place] [address] CVFLURVon 08-28-2024 FLU A PCR Negative Normal Negative [facility] MA[facility] Comment on above: Order Comment: recei pelon E-swab, called for recollect. 08/28/2024 16:56:55 EST mkm Result Comment: [place] [id number] Performed By: #### C VFLURV ####[place] [address] FLU B PCR Negative Normal Negative [facility] Comment on above: Order Comment: recei pelon E-swab, called for recollect. 08/28/2024 16:56:55 EST mkm [place]: [place] [id number] Performed By: #### C VFLURV ####[place] [address] RSV PCR Negative Normal Negative [facility] Comment on above: Order Comment: recei pelon E-swab, called for recollect. 08/28/2024 16:56:55 EST mkm [place]: [place] [id number] Performed By: #### C VFLURV ####[place] [address] SARS-CoV-2 (COVID-19) RNA EUGENE+probe Ql (Unsp spec) Negative Normal Negative [facility] MA[facility] Comment on above: Order Comment: recei pelon E-swab, called for recollect. 08/28/2024 16:56:55 EST mkm Result Comment: Note s [id number] test has been authorized by FDA under [...] inaccurate positive results. Performed By: #### C [facility] ####[place] [address] LABORATORYOrdered By: Joey Frank on 08-28-2024 FLUAV RNA EUGENE+probe Ql (Resp) Negative 24 (08/28/24 5:48 PM) Normal Negative [facility] Auto Viro/Sero SS Comment on above: [place]: [place] [id number] FLUBV RNA EUGENE+probe Ql (Resp) Negative 26 (08/28/24 5:48 PM) Normal Negative [facility] Auto Viro/Sero SS Comment on above: [place]: [place] [id number] RSV PCR Negative 28 (08/28/24 5:48 PM) Normal Negative [facility] Auto Viro/Sero SS Comment on above: Result Comment: [place] [id number] SARS-CoV-2 (COVID-19) RNA EUGENE+probe Ql (Resp) Negative [...] inaccurate positive results. Result [place]: [place] [id number] LABORATORYOrdered By: Farrah Grace on 08-28-2024 Beta HCG ( test) Ql (U) Negative (08/28/24 1:12 PM) [facility] Work Phone: LABORATORYOrdered By: Cullen Wilson on [...] 08-28-2024 Magnesium [Mass/Vol] 1.7 mg/dL Normal 1.6-2.4 [facility] Comment on above: Performed By: #### B MP, ADIFF, MORPH, CBC, GFR, PHOS, MG, ANEU ####[address] [address] PHOSon 08-28-2024 Phosphate [Mass/Vol] 4.0 mg/dL Normal 2.4-5.1 [facility] Comment on above: Result Comment: No te - New Reference Range in effect 20 Performed By: #### B MP, ADIFF, MORPH, CBC, GFR, PHOS, MG, ANEU ####[address] [address] RBC (Product)on 08-28-2024 RBC Product Ready RBC Ready for Pickup Normal [facility] Comment on above: Performed By: #### R BCP ####[address] [address] [place] ANESTHESIA BLOCKon 2024 [place] ANESTHESIA BLOCK ORIGINAL Images acquired, not reported on this accession number. Normal [facility] .Auto Diffon 08-27-2024 Basophil, Absolute 0.0 10 3/mcL Normal 0.0-0.3 [facility] Comment on above: Performed By: #### C BC, BMP, ANEU, GFR, ADIFF, PHOS, MG ####[address] [address] Basophils/100 WBC (Bld) 0.3 % Normal 0.0-2.5 [facility] Comment on above: Performed By: #### C BC, BMP, ANEU, GFR, ADIFF, PHOS, MG ####[address] [address] Eosinophil, Absolute 0.0 10 3/mcL Normal 0.0-0.7 [facility] Comment on above: Performed By: #### C BC, BMP, ANEU, GFR, ADIFF, PHOS, MG ####[address] [address] Eosinophils/100 WBC (Bld) 0.1 % Normal 0.0-6.0 [facility] Comment on above: Performed By: #### C BC, BMP, ANEU, GFR, ADIFF, PHOS, MG ####[address] [address] Lymphocyte, Absolute 1.5 10 3/mcL Normal 0.9-4.3 [facility] Comment on above: Performed By: #### C BC, BMP, ANEU, GFR, ADIFF, PHOS, MG ####[address] [address] Lymphocytes/100 WBC (Bld) 22.7 % Normal 20.0-40.0 [facility] Comment on above: Performed By: #### C BC, BMP, ANEU, GFR, ADIFF, PHOS, MG ####[facility] [place] [address] Monocyte, Absolute 0.5 10 3/mcL Normal 0.1-1.4 [facility] Comment on above: Performed By: #### C BC, BMP, ANEU, GFR, ADIFF, PHOS, MG ####[place] [id number] [place] [address] Monocytes/100 WBC (Bld) 6.8 % Normal 2.0-13.0 [facility] Comment on above: Performed By: #### C BC, BMP, ANEU, GFR, ADIFF, PHOS, MG ####[place] [address] [place] [address] Neutrophils/100 WBC (Bld) 70.1 % Normal 50.0-75.0 [facility] Comment on above: Performed By: #### C BC, BMP, ANEU, GFR, ADIFF, PHOS, MG ####[address] [address] .GFRon 08-27-2024 GFR/1.73 sq M.predicted among non-blacks MDRD (S/P/Bld) [Vol rate/Area] mL/min/{1.73_m2} Normal [facility] Comment on above: Result Comment: Stag [...] BC, BMP, ANEU, GFR, ADIFF, PHOS, MG ####[place] [address] [place] [address] .NEUABSon 08-27-2024 Neutrophil, Absolute 4.6 10 3/mcL Normal 2.3-8.1 [facility] Comment on above: Performed By: #### C BC, BMP, ANEU, GFR, ADIFF, PHOS, MG ####[address] [address] BMPon 08-27-2024 BUN/Creatinine Ratio Unable to Calculate Normal 10.0-2 2.0 [facility] Comment on above: Result Comment: Unab le to calculate this test result accurately. Results used to calculate this test are outside the reportable range. Performed By: #### C BC, BMP, ANEU, GFR, ADIFF, PHOS, MG ####[address] [address] Urea nitrogen [Mass/Vol] mg/dL Low 8.0-22.0 [facility] Comment on above: Performed By: #### C BC, BMP, ANEU, GFR, ADIFF, PHOS, MG ####[address] [address] Calcium [Mass/Vol] 8.2 mg/dL Low 8.7-10.4 [facility] Comment on above: Performed By: #### C BC, BMP, ANEU, GFR, ADIFF, PHOS, MG ####[address] [address] Chloride [Moles/Vol] 105 mmol/L Normal 98-110 [facility] Comment on above: Performed By: #### C BC, BMP, ANEU, GFR, ADIFF, PHOS, MG ####[address] [address] CO2 [Moles/Vol] 29 mmol/L Normal 22-32 [facility] Comment on above: Performed By: #### C BC, BMP, ANEU, GFR, ADIFF, PHOS, MG ####[address] [address] Creatinine [Mass/Vol] 0.44 mg/dL Low 0.50-1.20 [facility] Comment on above: Result Comment: Test ing performed on Actionsoft analyzer using enzymatic creatinine methodology. Performed By: #### C BC, BMP, ANEU, GFR, ADIFF, PHOS, MG ####[place] [address] Electrolyte Balance 5.0 mEq/L Normal 4.0-15.0 [facility] Comment on above: Performed By: #### C BC, BMP, ANEU, GFR, ADIFF, PHOS, MG ####[place] [address] Glucose [Mass/Vol] 124 mg/dL High 70-110 [facility] Comment on above: Performed By: #### C BC, BMP, ANEU, GFR, ADIFF, PHOS, MG ####[place] [id number] Potassium [Moles/Vol] 3.4 mmol/L Low 3.5-5.0 [facility] Comment on above: Performed By: #### C BC, BMP, ANEU, GFR, ADIFF, PHOS, MG ####[place] [address] Sodium [Moles/Vol] 139 mmol/L Normal 136-145 [facility] Comment on above: Performed By: #### C BC, BMP, ANEU, GFR, ADIFF, PHOS, MG ####[place] [address] CBCon 08-27-2024 Erythrocyte distribution width (RBC) [Ratio] 17.5 % High 11.5-15.5 [facility] Comment on above: Performed By: #### C BC, BMP, ANEU, GFR, ADIFF, PHOS, MG ####[place] [address] Hematocrit (Bld) [Volume fraction] 23.4 % Low 34.0-46.0 [facility] Comment on above: Performed By: #### C BC, BMP, ANEU, GFR, ADIFF, PHOS, MG ####[place] [address] Hgb 7.2 G/dL Low 12.0-16.0 [facility] Comment on above: Performed By: #### C BC, BMP, ANEU, GFR, ADIFF, PHOS, MG ####[place] [address] MCH (RBC) [Entitic mass] 21.6 pg Low 27.0-33.0 [facility] Comment on above: Performed By: #### C BC, BMP, ANEU, GFR, ADIFF, PHOS, MG ####[place] [address] MCHC 30.7 G/dL Low 32.0-36.0 [facility] Comment on above: Performed By: #### C BC, BMP, ANEU, GFR, ADIFF, PHOS, MG ####[place] [address] MCV (RBC) [Entitic vol] 70.3 fL Low 80.0-99.0 [facility] Comment on above: Performed By: #### C BC, BMP, ANEU, GFR, ADIFF, PHOS, MG ####[place] [address] Platelet 328 10 3/mcL Normal 150-450 [facility] Comment on above: Performed By: #### C BC, BMP, ANEU, GFR, ADIFF, PHOS, MG ####[place] [address] Platelet mean volume (Bld) [Entitic vol] 8.4 fL Normal 6.6-10.5 [facility] Comment on above: Performed By: #### C BC, BMP, ANEU, GFR, ADIFF, PHOS, MG ####[place] [address] RBC 3.33 10 6/mcL Low 4.10-5.30 [facility] Comment on above: Performed By: #### C BC, BMP, ANEU, GFR, ADIFF, PHOS, MG ####[place] [address] WBC 6.6 10 3/mcL Normal 4.5-10.8 [facility] Comment on above: Performed By: #### C BC, BMP, ANEU, GFR, ADIFF, PHOS, MG ####[place] [address] LABORATORYOrdered By: SYSTEM SYSTEM on 08-27-2024 Magnesium [Mass/Vol] 1.8 mg/dL Normal 1.6 - 2 .4 mg/dL AH ADM SS Phosphate [Mass/Vol] 2.8 mg/dL Normal 2.4 - 5 .1 mg/dL ADM SS Comment on above: Interpretive Data: * *Note - New Reference Range in effect 20 MGon 08-27-2024 Magnesium [Mass/Vol] 1.8 mg/dL Normal 1.6-2.4 [facility] Comment on above: Performed By: #### C BC, BMP, ANEU, GFR, ADIFF, PHOS, MG ####[place] [address] PHOSon 08-27-2024 Phosphate [Mass/Vol] 2.8 mg/dL Normal 2.4-5.1 [facility] Comment on above: Result Comment: No te - New Reference Range in effect 20 Performed By: #### C BC, BMP, ANEU, GFR, ADIFF, PHOS, MG ####[place] [address] .Auto Diffon 08-26-2024 Basophil, Absolute 0.0 10 3/mcL Normal 0.0-0.3 [facility] Comment on above: Performed By: #### G FR, ADIFF, PHOS, PRO, CBC, BMP, MG, ANEU ####[place] [address] Basophils/100 WBC (Bld) 0.1 % Normal 0.0-2.5 [facility] Comment on above: Performed By: #### G FR, ADIFF, PHOS, PRO, CBC, BMP, MG, ANEU ####[place] [address] Eosinophil, Absolute 0.0 10 3/mcL Normal 0.0-0.7 [facility] Comment on above: Performed By: #### G FR, ADIFF, PHOS, PRO, CBC, BMP, MG, ANEU ####[place] [address] Eosinophils/100 WBC (Bld) 0.1 % Normal 0.0-6.0 [facility] Comment on above: Performed By: #### G FR, ADIFF, PHOS, PRO, CBC, BMP, MG, ANEU ####[address] [address] Lymphocyte, Absolute 1.9 10 3/mcL Normal 0.9-4.3 [facility] Comment on above: Performed By: #### G FR, ADIFF, PHOS, PRO, CBC, BMP, MG, ANEU ####[address] [address] Lymphocytes/100 WBC (Bld) 15.0 % Low 20.0-40.0 [facility] Comment on above: Performed By: #### G FR, ADIFF, PHOS, PRO, CBC, BMP, MG, ANEU ####[address] [address] Monocyte, Absolute 0.8 10 3/mcL Normal 0.1-1.4 [facility] Comment on above: Performed By: #### G FR, ADIFF, PHOS, PRO, CBC, BMP, MG, ANEU ####[address] [address] Monocytes/100 WBC (Bld) 6.2 % Normal 2.0-13.0 [facility] Comment on above: Performed By: #### G FR, ADIFF, PHOS, PRO, CBC, BMP, MG, ANEU ####[address] [address] Neutrophils/100 WBC (Bld) 78.6 % High 50.0-75.0 [facility] Comment on above: Performed By: #### G FR, ADIFF, PHOS, PRO, CBC, BMP, MG, ANEU ####[address] [address] .GFRon 08-26-2024 Estimated Glomerular Filtration Rate 119 ml/min/1.73sqm Normal [facility] Comment on above: Result Comment: Stag [...] ADIFF, PHOS, PRO, CBC, BMP, MG, ANEU ####[address] [address] .NEUABSon 08-26-2024 Neutrophil, Absolute 9.9 10 3/mcL High 2.3-8.1 [facility] Comment on above: Performed By: #### G FR, ADIFF, PHOS, PRO, CBC, BMP, MG, ANEU ####[address] [address] BMPon 08-26-2024 BUN/Creatinine Ratio Unable to Calculate Normal 10.0-2 2.0 [facility] Comment on above: Result Comment: Unab le to calculate this test result accurately. Results used to calculate this test are outside the reportable range. Performed By: #### G FR, ADIFF, PHOS, PRO, CBC, BMP, MG, ANEU ####[address] [address] Urea nitrogen [Mass/Vol] mg/dL Low 8.0-22.0 [facility] Comment on above: Performed By: #### G FR, ADIFF, PHOS, PRO, CBC, BMP, MG, ANEU ####[address] [address] Calcium [Mass/Vol] 8.5 mg/dL Low 8.7-10.4 [facility] Comment on above: Performed By: #### G FR, ADIFF, PHOS, PRO, CBC, BMP, MG, ANEU ####[address] [address] Chloride [Moles/Vol] 101 mmol/L Normal 98-110 [facility] Comment on above: Performed By: #### G FR, ADIFF, PHOS, PRO, CBC, BMP, MG, ANEU ####[place] [address] CO2 [Moles/Vol] 26 mmol/L Normal 22-32 [facility] Comment on above: Performed By: #### G FR, ADIFF, PHOS, PRO, CBC, BMP, MG, ANEU ####[place] [address] Creatinine [Mass/Vol] 0.49 mg/dL Low 0.50-1.20 [facility] Comment on above: Result Comment: Test ing performed on Actionsoft analyzer using enzymatic creatinine methodology. Performed By: #### G FR, ADIFF, PHOS, PRO, CBC, BMP, MG, ANEU ####[place] [address] Electrolyte Balance 12.0 mEq/L Normal 4.0-15.0 [facility] Comment on above: Performed By: #### G FR, ADIFF, PHOS, PRO, CBC, BMP, MG, ANEU ####[place] [address] Glucose [Mass/Vol] 109 mg/dL Normal 70-110 [facility] Comment on above: Performed By: #### G FR, ADIFF, PHOS, PRO, CBC, BMP, MG, ANEU ####[place] [address] Potassium [Moles/Vol] 3.2 mmol/L Low 3.5-5.0 [facility] Comment on above: Performed By: #### G FR, ADIFF, PHOS, PRO, CBC, BMP, MG, ANEU ####[place] [address] Sodium [Moles/Vol] 139 mmol/L Normal 136-145 [facility] Comment on above: Performed By: #### G FR, ADIFF, PHOS, PRO, CBC, BMP, MG, ANEU ####[place] [address] CBCon 08-26-2024 Erythrocyte distribution width (RBC) [Ratio] 17.5 % High 11.5-15.5 [facility] Comment on above: Performed By: #### G FR, ADIFF, PHOS, PRO, CBC, BMP, MG, ANEU ####[place] [address] Hematocrit (Bld) [Volume fraction] 25.5 % Low 34.0-46.0 [facility] Comment on above: Performed By: #### G FR, ADIFF, PHOS, PRO, CBC, BMP, MG, ANEU ####[place] [address] Hgb 7.9 G/dL Low 12.0-16.0 [facility] Comment on above: Performed By: #### G FR, ADIFF, PHOS, PRO, CBC, BMP, MG, ANEU ####[place] [address] MCH (RBC) [Entitic mass] 21.6 pg Low 27.0-33.0 [facility] Comment on above: Performed By: #### G FR, ADIFF, PHOS, PRO, CBC, BMP, MG, ANEU ####[place] [address] MCHC 30.8 G/dL Low 32.0-36.0 [facility] Comment on above: Performed By: #### G FR, ADIFF, PHOS, PRO, CBC, BMP, MG, ANEU ####[place] [address] MCV (RBC) [Entitic vol] 70.2 fL Low 80.0-99.0 [facility] Comment on above: Performed By: #### G FR, ADIFF, PHOS, PRO, CBC, BMP, MG, ANEU ####[place] [address] Platelet 422 10 3/mcL Normal 150-450 [facility] Comment on above: Performed By: #### G FR, ADIFF, PHOS, PRO, CBC, BMP, MG, ANEU ####[place] [address] Platelet mean volume (Bld) [Entitic vol] 8.4 fL Normal 6.6-10.5 [facility] Comment on above: Performed By: #### G FR, ADIFF, PHOS, PRO, CBC, BMP, MG, ANEU ####[place] [id number] [place] [address] RBC 3.64 10 6/mcL Low 4.10-5.30 [facility] Comment on above: Performed By: #### G FR, ADIFF, PHOS, PRO, CBC, BMP, MG, ANEU ####[place] [id number] [place] [address] WBC 12.6 10 3/mcL High 4.5-10.8 [facility] Comment on above: Performed By: #### G FR, ADIFF, PHOS, PRO, CBC, BMP, MG, ANEU ####[place] [address] CEFAZOLIN:SUSC:PT:ISOLATE:OR DQN:MICon 08-26-2024 ceFAZolin MARIA DEL ROSARIO [Susc] Light Escherichia c lou Light Escherichia coli #2 Light Actinomyces turicensis Sensitivity testing is not recommended for one of the following reasons: 1. Established susceptibility patterns are available or 2. Interpretative criteria are not available. No anaerobes isolated at 5 days. [facility] Work Phone: LABORATORYOrdered By: SYSTEM SYSTEM on [...] Comment on above: Interpretive Data: Pam pardo [employer] (CHEST, 1992, 102:[id number]) recommended therapeutic range for oral anticoagulant therapy is: LOW RISK: Prophylaxis of venous thrombosis INR: 2.0-3.0 Treatment of pulmonary embolism 2.0-3.0 Prevention of systemic embolism 2.0-3.0 HIGH RISK: Mechanical prosthetic valves 2.5-3.5 MGon 08-26-2024 Magnesium [Mass/Vol] 2.0 mg/dL Normal 1.6-2.4 [facility] Comment on above: Performed By: #### G FR, ADIFF, PHOS, PRO, CBC, BMP, MG, ANEU ####[place] [address] PHOSon 08-26-2024 Phosphate [Mass/Vol] 3.5 mg/dL Normal 2.4-5.1 [facility] Comment on above: Result Comment: No te - New Reference Range in effect 20 Performed By: #### G FR, ADIFF, PHOS, PRO, CBC, BMP, MG, ANEU ####[place] [address] PROon 08-26-2024 INR Coag (PPP) [Relative time] 1.4 {INR} Normal [facility] Comment on above: Result Comment: [employer] (CHEST, 1992, [id number])recommended therapeutic range for oral anticoagulant therapy is:LOW RISK: Prophylaxis of venous thrombosis INR: 2.0-3.0 Treatment of pulmonary embolism 2.0-3.0 Prevention of systemic embolism 2.0-3.0HIGH RISK: Mechanical prosthetic valves 2.5-3.5 Performed By: #### G FR, ADIFF, PHOS, PRO, CBC, BMP, MG, ANEU ####[place] [address] PT Coag (PPP) [Time] 15.8 s High 9.0-14.4 [facility] Comment on above: Result Comment: Effe ctive 01/13/08, Protime results may be affected by some antibiotics (i.e. Ciprofloxacin, Azithromycin, Bactrim) which may potentiate the action of oral anticoagulants, with further increases in Protime/INR. Performed By: #### G FR, ADIFF, PHOS, PRO, CBC, BMP, MG, ANEU ####[place] [address] ceFAZolin MARIA DEL ROSARIO [Susc]on 08-26 Escherichia coli Escherichia coli [facility] Work Phone: GS Sedimented 4+ Polymorphonuclear cells 1+ Gram Positive Cocci Rare Gram Positive Rods Rare Gram Negative Rods [facility] Work Phone: .Auto Diffon 08-25-2024 Basophil, Absolute 0.0 10 3/mcL Normal 0.0-0.3 [facility] Comment on above: Performed By: #### P HOS, BMP, ADIFF, MG, ABSGEL, CBC, GFR, ABOGEL, ANEU ####[address] [address] Basophils/100 WBC (Bld) 0.1 % Normal 0.0-2.5 [facility] MA[facility] Comment on above: Performed By: #### P HOS, BMP, ADIFF, MG, ABSGEL, CBC, GFR, ABOGEL, ANEU ####[address] [address] Eosinophil, Absolute 0.0 10 3/mcL Normal 0.0-0.7 [facility] Comment on above: Performed By: #### P HOS, BMP, ADIFF, MG, ABSGEL, CBC, GFR, ABOGEL, ANEU ####[address] [address] Eosinophils/100 WBC (Bld) 0.1 % Normal 0.0-6.0 [facility] Comment on above: Performed By: #### P HOS, BMP, ADIFF, MG, ABSGEL, CBC, GFR, ABOGEL, ANEU ####[address] [address] Lymphocyte, Absolute 1.3 10 3/mcL Normal 0.9-4.3 [facility] Comment on above: Performed By: #### P HOS, BMP, ADIFF, MG, ABSGEL, CBC, GFR, ABOGEL, ANEU ####[address] [address] Lymphocytes/100 WBC (Bld) 10.4 % Low 20.0-40.0 [facility] Comment on above: Performed By: #### P HOS, BMP, ADIFF, MG, ABSGEL, CBC, GFR, ABOGEL, ANEU ####[address] [address] Monocyte, Absolute 0.8 10 3/mcL Normal 0.1-1.4 [facility] Comment on above: Performed By: #### P HOS, BMP, ADIFF, MG, ABSGEL, CBC, GFR, ABOGEL, ANEU ####[address] [address] Monocytes/100 WBC (Bld) 6.0 % Normal 2.0-13.0 [facility] Comment on above: Performed By: #### P HOS, BMP, ADIFF, MG, ABSGEL, CBC, GFR, ABOGEL, ANEU ####[place] [address] Neutrophils/100 WBC (Bld) 83.4 % High 50.0-75.0 [facility] Comment on above: Performed By: #### P HOS, BMP, ADIFF, MG, ABSGEL, CBC, GFR, ABOGEL, ANEU ####[place] [address] .GFRon 08-25-2024 GFR/1.73 sq M.predicted among non-blacks MDRD (S/P/Bld) [Vol rate/Area] mL/min/{1.73_m2} Normal [facility] Comment on above: Result Comment: Stag [...] ABSGEL, CBC, GFR, ABOGEL, ANEU ####[place] [address] .NEUABSon 08-25-2024 Neutrophil, Absolute 10.8 10 3/mcL High 2.3-8.1 [facility] Comment on above: Performed By: #### P HOS, BMP, ADIFF, MG, ABSGEL, CBC, GFR, ABOGEL, ANEU ####[address] [address] ABO/Rh (Gel)on 08-25-2024 ABO/Rh Interp Positive Invalid Interpretation Code [facility] Comment on above: Performed By: #### P HOS, BMP, ADIFF, MG, ABSGEL, CBC, GFR, ABOGEL, ANEU ####[address] [address] ABS (Gel)on 08-25-2024 ABSC Interp (Gel) Negative Normal [facility] Comment on above: Performed By: #### P HOS, BMP, ADIFF, MG, ABSGEL, CBC, GFR, ABOGEL, ANEU ####[address] [address] BMPon 08-25-2024 BUN/Creatinine Ratio Unable to Calculate Normal 10.0-2 2.0 [facility] Comment on above: Result Comment: Unab le to calculate this test result accurately. Results used to calculate this test are outside the reportable range. Performed By: #### P HOS, BMP, ADIFF, MG, ABSGEL, CBC, GFR, ABOGEL, ANEU ####[address] [address] Urea nitrogen [Mass/Vol] mg/dL Low 8.0-22.0 [facility] Comment on above: Performed By: #### P HOS, BMP, ADIFF, MG, ABSGEL, CBC, GFR, ABOGEL, ANEU ####[address] [address] Calcium [Mass/Vol] 8.5 mg/dL Low 8.7-10.4 [facility] Comment on above: Performed By: #### P HOS, BMP, ADIFF, MG, ABSGEL, CBC, GFR, ABOGEL, ANEU ####[address] [address] Chloride [Moles/Vol] 102 mmol/L Normal 98-110 [facility] Comment on above: Performed By: #### P HOS, BMP, ADIFF, MG, ABSGEL, CBC, GFR, ABOGEL, ANEU ####[address] [address] CO2 [Moles/Vol] 26 mmol/L Normal 22-32 [facility] Comment on above: Performed By: #### P HOS, BMP, ADIFF, MG, ABSGEL, CBC, GFR, ABOGEL, ANEU ####[place] [address] Creatinine [Mass/Vol] 0.45 mg/dL Low 0.50-1.20 [facility] Comment on above: Result Comment: Test ing performed on Actionsoft analyzer using enzymatic creatinine methodology. Performed By: #### P HOS, BMP, ADIFF, MG, ABSGEL, CBC, GFR, ABOGEL, ANEU ####[place] [address] Electrolyte Balance 9.0 mEq/L Normal 4.0-15.0 [facility] Comment on above: Performed By: #### P HOS, BMP, ADIFF, MG, ABSGEL, CBC, GFR, ABOGEL, ANEU ####[place] [id number] Glucose [Mass/Vol] 96 mg/dL Normal 70-110 [facility] Comment on above: Performed By: #### P HOS, BMP, ADIFF, MG, ABSGEL, CBC, GFR, ABOGEL, ANEU ####[address] [address] Potassium [Moles/Vol] 3.6 mmol/L Normal 3.5-5.0 [facility] Comment on above: Performed By: #### P HOS, BMP, ADIFF, MG, ABSGEL, CBC, GFR, ABOGEL, ANEU ####[address] [address] Sodium [Moles/Vol] 137 mmol/L Normal 136-145 [facility] Comment on above: Performed By: #### P HOS, BMP, ADIFF, MG, ABSGEL, CBC, GFR, ABOGEL, ANEU ####[address] [address] CBCon 08-25-2024 Erythrocyte distribution width (RBC) [Ratio] 17.6 % High 11.5-15.5 [facility] Comment on above: Performed By: #### P HOS, BMP, ADIFF, MG, ABSGEL, CBC, GFR, ABOGEL, ANEU ####[place] [address] Hematocrit (Bld) [Volume fraction] 26.5 % Low 34.0-46.0 [facility] Comment on above: Performed By: #### P HOS, BMP, ADIFF, MG, ABSGEL, CBC, GFR, ABOGEL, ANEU ####[place] [address] Hgb 8.2 G/dL Low 12.0-16.0 [facility] Comment on above: Performed By: #### P HOS, BMP, ADIFF, MG, ABSGEL, CBC, GFR, ABOGEL, ANEU ####[place] [address] MCH (RBC) [Entitic mass] 21.7 pg Low 27.0-33.0 [facility] Comment on above: Performed By: #### P HOS, BMP, ADIFF, MG, ABSGEL, CBC, GFR, ABOGEL, ANEU ####[place] [address] MCHC 30.8 G/dL Low 32.0-36.0 [facility] Comment on above: Performed By: #### P HOS, BMP, ADIFF, MG, ABSGEL, CBC, GFR, ABOGEL, ANEU ####[place] [address] MCV (RBC) [Entitic vol] 70.3 fL Low 80.0-99.0 [facility] MAIN Comment on above: Performed By: #### P HOS, BMP, ADIFF, MG, ABSGEL, CBC, GFR, ABOGEL, ANEU ####[place] [address] Platelet 408 10 3/mcL Normal 150-450 [facility] MA[facility] Comment on above: Performed By: #### P HOS, BMP, ADIFF, MG, ABSGEL, CBC, GFR, ABOGEL, ANEU ####[place] [address] Platelet mean volume (Bld) [Entitic vol] 8.9 fL Normal 6.6-10.5 [facility] Comment on above: Performed By: #### P HOS, BMP, ADIFF, MG, ABSGEL, CBC, GFR, ABOGEL, ANEU ####[place] [address] RBC 3.77 10 6/mcL Low 4.10-5.30 [facility] Comment on above: Performed By: #### P HOS, BMP, ADIFF, MG, ABSGEL, CBC, GFR, ABOGEL, ANEU ####[place] [address] WBC 12.9 10 3/mcL High 4.5-10.8 [facility] Comment on above: Performed By: #### P HOS, BMP, ADIFF, MG, ABSGEL, CBC, GFR, ABOGEL, ANEU ####[place] [address] LABORATORYOrdered By: Bruno Garcia on 08-25-2024 ABO and Rh group Nom (Bld) Blood group O Rh(D) positive Invalid Interpretation Code AH BB Auto SS Blood group antibody screen Ql Negative ABSC (08/25/24 5:42 AM) Normal BB Auto SS MGon 08-25-2024 Magnesium [Mass/Vol] 1.5 mg/dL Low 1.6-2.4 [facility] Comment on above: Performed By: #### P HOS, BMP, ADIFF, MG, ABSGEL, CBC, GFR, ABOGEL, ANEU ####[place] [address] PHOSon 08-25-2024 Phosphate [Mass/Vol] 3.3 mg/dL Normal 2.4-5.1 [facility] Comment on above: Result Comment: No te - New Reference Range in effect 20 Performed By: #### P HOS, BMP, ADIFF, MG, ABSGEL, CBC, GFR, ABOGEL, ANEU ####[address] [address] .Auto Diffon 08-24-2024 Basophil, Absolute 0.0 10 3/mcL Normal 0.0-0.3 [facility] Comment on above: Performed By: #### G FR, CBC, CK, PHOS, ADIFF, ANEU, BMP, MG ####[address] [address] Basophils/100 WBC (Bld) 0.1 % Normal 0.0-2.5 [facility] MAIN Comment on above: Performed By: #### G FR, CBC, CK, PHOS, ADIFF, ANEU, BMP, MG ####[place] [address] Eosinophil, Absolute 0.0 10 3/mcL Normal 0.0-0.7 [facility] Comment on above: Performed By: #### G FR, CBC, CK, PHOS, ADIFF, ANEU, BMP, MG ####[address] [address] Eosinophils/100 WBC (Bld) 0.4 % Normal 0.0-6.0 [facility] Comment on above: Performed By: #### G FR, CBC, CK, PHOS, ADIFF, ANEU, BMP, MG ####[address] [address] Lymphocyte, Absolute 1.1 10 3/mcL Normal 0.9-4.3 [facility] Comment on above: Performed By: #### G FR, CBC, CK, PHOS, ADIFF, ANEU, BMP, MG ####[address] [address] Lymphocytes/100 WBC (Bld) 8.6 % Low 20.0-40.0 [facility] Comment on above: Performed By: #### G FR, CBC, CK, PHOS, ADIFF, ANEU, BMP, MG ####[address] [address] Monocyte, Absolute 0.8 10 3/mcL Normal 0.1-1.4 [facility] Comment on above: Performed By: #### G FR, CBC, CK, PHOS, ADIFF, ANEU, BMP, MG ####[address] [address] Monocytes/100 WBC (Bld) 6.6 % Normal 2.0-13.0 [facility] Comment on above: Performed By: #### G FR, CBC, CK, PHOS, ADIFF, ANEU, BMP, MG ####[address] [address] Neutrophils/100 WBC (Bld) 84.3 % High 50.0-75.0 [facility] Comment on above: Performed By: #### G FR, CBC, CK, PHOS, ADIFF, ANEU, BMP, MG ####[place] [id number] .GFRon 08-24-2024 Estimated Glomerular Filtration Rate 117 ml/min/1.73sqm Normal [facility] Comment on above: Result Comment: Stag [...] CBC, CK, PHOS, ADIFF, ANEU, BMP, MG ####[address] [address] .NEUABSon 08-24-2024 Neutrophil, Absolute 10.6 10 3/mcL High 2.3-8.1 [facility] Comment on above: Performed By: #### G FR, CBC, CK, PHOS, ADIFF, ANEU, BMP, MG ####[place] [id number] BMPon 08-24-2024 BUN/Creatinine Ratio Unable to Calculate Normal 10.0-2 2.0 [facility] Comment on above: Result Comment: Unab le to calculate this test result accurately. Results used to calculate this test are outside the reportable range. Performed By: #### G FR, CBC, CK, PHOS, ADIFF, ANEU, BMP, MG ####[address] [address] Urea nitrogen [Mass/Vol] mg/dL Low 8.0-22.0 [facility] Comment on above: Performed By: #### G FR, CBC, CK, PHOS, ADIFF, ANEU, BMP, MG ####[address] [address] Calcium [Mass/Vol] 8.2 mg/dL Low 8.7-10.4 [facility] Comment on above: Performed By: #### G FR, CBC, CK, PHOS, ADIFF, ANEU, BMP, MG ####[place] [id number] Chloride [Moles/Vol] 101 mmol/L Normal 98-110 [facility] Comment on above: Performed By: #### G FR, CBC, CK, PHOS, ADIFF, ANEU, BMP, MG ####[address] [address] CO2 [Moles/Vol] 29 mmol/L Normal 22-32 [facility] Comment on above: Performed By: #### G FR, CBC, CK, PHOS, ADIFF, ANEU, BMP, MG ####[address] [address] Creatinine [Mass/Vol] 0.52 mg/dL Normal 0.50-1.20 [facility] Comment on above: Result Comment: Test ing performed on Actionsoft analyzer using enzymatic creatinine methodology. Performed By: #### G FR, CBC, CK, PHOS, ADIFF, ANEU, BMP, MG ####[address] [address] Electrolyte Balance 6.0 mEq/L Normal 4.0-15.0 [facility] Comment on above: Performed By: #### G FR, CBC, CK, PHOS, ADIFF, ANEU, BMP, MG ####[place] [address] Glucose [Mass/Vol] 151 mg/dL High 70-110 [facility] Comment on above: Performed By: #### G FR, CBC, CK, PHOS, ADIFF, ANEU, BMP, MG ####[place] [address] Potassium [Moles/Vol] 3.1 mmol/L Low 3.5-5.0 [facility] Comment on above: Performed By: #### G FR, CBC, CK, PHOS, ADIFF, ANEU, BMP, MG ####[place] [address] Sodium [Moles/Vol] 136 mmol/L Normal 136-145 [facility] Comment on above: Performed By: #### G FR, CBC, CK, PHOS, ADIFF, ANEU, BMP, MG ####[place] [address] CBCon 08-24-2024 Erythrocyte distribution width (RBC) [Ratio] 17.5 % High 11.5-15.5 [facility] Comment on above: Performed By: #### G FR, CBC, CK, PHOS, ADIFF, ANEU, BMP, MG ####[place] [address] Hematocrit (Bld) [Volume fraction] 25.3 % Low 34.0-46.0 [facility] Comment on above: Performed By: #### G FR, CBC, CK, PHOS, ADIFF, ANEU, BMP, MG ####[place] [address] Hgb 7.7 G/dL Low 12.0-16.0 [facility] Comment on above: Performed By: #### G FR, CBC, CK, PHOS, ADIFF, ANEU, BMP, MG ####[place] [address] MCH (RBC) [Entitic mass] 21.3 pg Low 27.0-33.0 [facility] Comment on above: Performed By: #### G FR, CBC, CK, PHOS, ADIFF, ANEU, BMP, MG ####[place] [address] MCHC 30.4 G/dL Low 32.0-36.0 [facility] Comment on above: Performed By: #### G FR, CBC, CK, PHOS, ADIFF, ANEU, BMP, MG ####[place] [address] MCV (RBC) [Entitic vol] 70.2 fL Low 80.0-99.0 [facility] Comment on above: Performed By: #### G FR, CBC, CK, PHOS, ADIFF, ANEU, BMP, MG ####[place] [address] Platelet 457 10 3/mcL High 150-450 [facility] Comment on above: Performed By: #### G FR, CBC, CK, PHOS, ADIFF, ANEU, BMP, MG ####[place] [address] Platelet mean volume (Bld) [Entitic vol] 8.5 fL Normal 6.6-10.5 [facility] Comment on above: Performed By: #### G FR, CBC, CK, PHOS, ADIFF, ANEU, BMP, MG ####[place] [address] RBC 3.61 10 6/mcL Low 4.10-5.30 [facility] Comment on above: Performed By: #### G FR, CBC, CK, PHOS, ADIFF, ANEU, BMP, MG ####[place] [address] WBC 12.6 10 3/mcL High 4.5-10.8 [facility] Comment on above: Performed By: #### G FR, CBC, CK, PHOS, ADIFF, ANEU, BMP, MG ####[place] [address] CBLon 08-24-2024 CBL Normal [facility] CKon 08-24-2024 CK [Catalytic activity/Vol] 47 U/L Normal 7-185 [facility] Comment on above: Performed By: #### G FR, CBC, CK, PHOS, ADIFF, ANEU, BMP, MG ####[place] [id number] [place] [address] LABORATORYOrdered By: SYSTEM SYSTEM on 08-24-2024 CK [Catalytic activity/Vol] 47 U/L Normal 7 - 185 U/L AH ADM SS MGon 08-24-2024 Magnesium [Mass/Vol] 1.6 mg/dL Normal 1.6-2.4 [facility] Comment on above: Performed By: #### G FR, CBC, CK, PHOS, ADIFF, ANEU, BMP, MG ####[place] [id number] [place] [address] No Panel Informationon 08-24 Microscopic examination of blood, culture Blood Culture: No Growth at 5 days. [facility] Work Phone: PHOSon 08-24-2024 Phosphate [Mass/Vol] 2.7 mg/dL Normal 2.4-5.1 [facility] Comment on above: Result Comment: No te - New Reference Range in effect 20 Performed By: #### G FR, CBC, CK, PHOS, ADIFF, ANEU, BMP, MG ####[place] [address] .GFRon 08-23-2024 Estimated Glomerular Filtration Rate 119 ml/min/1.73sqm Normal [facility] Comment on above: Result Comment: Stag [...] By: #### B MP, PHOS, GFR, MG ####[address] [address] BMPon 08-23-2024 BUN/Creatinine Ratio Unable to Calculate Normal 10.0-2 2.0 [facility] Comment on above: Result Comment: Unab le to calculate this test result accurately. Results used to calculate this test are outside the reportable range. Performed By: #### B MP, PHOS, GFR, MG ####[place] [address] Urea nitrogen [Mass/Vol] mg/dL Low 8.0-22.0 [facility] Comment on above: Performed By: #### B MP, PHOS, GFR, MG ####[place] [address] Calcium [Mass/Vol] 8.2 mg/dL Low 8.7-10.4 [facility] Comment on above: Performed By: #### B MP, PHOS, GFR, MG ####[place] [address] Chloride [Moles/Vol] 99 mmol/L Normal 98-110 [facility] Comment on above: Performed By: #### B MP, PHOS, GFR, MG ####[place] [address] CO2 [Moles/Vol] 31 mmol/L Normal 22-32 [facility] Comment on above: Performed By: #### B MP, PHOS, GFR, MG ####[place] [address] Creatinine [Mass/Vol] 0.49 mg/dL Low 0.50-1.20 [facility] Comment on above: Result Comment: Test ing performed on [employer] analyzer using enzymatic creatinine methodology. Performed By: #### B MP, PHOS, GFR, MG ####[place] [address] Electrolyte Balance 6.0 mEq/L Normal 4.0-15.0 [facility] Comment on above: Performed By: #### B MP, PHOS, GFR, MG ####[address] [address] Glucose [Mass/Vol] 121 mg/dL High 70-110 [facility] Comment on above: Performed By: #### B MP, PHOS, GFR, MG ####[place] [id number] [place] [id number] Potassium [Moles/Vol] 3.0 mmol/L Low 3.5-5.0 [facility] Comment on above: Performed By: #### B MP, PHOS, GFR, MG ####[address] [address] Sodium [Moles/Vol] 136 mmol/L Normal 136-145 [facility] Comment on above: Performed By: #### B MP, PHOS, GFR, MG ####[address] [address] MGon 08-23-2024 Magnesium [Mass/Vol] 1.6 mg/dL Normal 1.6-2.4 [facility] Comment on above: Performed By: #### B MP, PHOS, GFR, MG ####[address] [address] PHOSon 08-23-2024 Phosphate [Mass/Vol] 2.7 mg/dL Normal 2.4-5.1 [facility] Comment on above: Result Comment: No te - New Reference Range in effect 20 Performed By: #### B MP, PHOS, GFR, MG ####[address] [address] .GFRon 08-22-2024 Estimated Glomerular Filtration Rate 117 ml/min/1.73sqm Normal [facility] – [facility] MAIN Comment on above: Result Comment: Stag [...] By: #### M G, BMP, GFR, PHOS ####[address] [address] BMPon 08-22-2024 BUN/Creatinine Ratio Unable to Calculate Normal 10.0-2 2.0 [facility] MAIN Comment on above: Result Comment: Unab le to calculate this test result accurately. Results used to calculate this test are outside the reportable range. Performed By: #### M G, BMP, GFR, PHOS ####[address] [address] Urea nitrogen [Mass/Vol] mg/dL Low 8.0-22.0 [facility] MA[facility] Comment on above: Performed By: #### Gene G, BMP, GFR, PHOS ####[address] [address] Calcium [Mass/Vol] 8.5 mg/dL Low 8.7-10.4 [facility] MAIN Comment on above: Performed By: #### Gene Watkins, BMP, GFR, PHOS ####[place] [id number] Chloride [Moles/Vol] 101 mmol/L Normal 98-110 [facility] MAIN Comment on above: Performed By: #### M G, BMP, GFR, PHOS ####[address] [address] CO2 [Moles/Vol] 32 mmol/L Normal 22-32 [facility] MAIN Comment on above: Performed By: #### M G, BMP, GFR, PHOS ####[address] [address] Creatinine [Mass/Vol] 0.52 mg/dL Normal 0.50-1.20 [facility] MAIN Comment on above: Result Comment: Test ing performed on Actionsoft analyzer using enzymatic creatinine methodology. Performed By: #### M G, BMP, GFR, PHOS ####[place] [id number] Electrolyte Balance 7.0 mEq/L Normal 4.0-15.0 [facility] MAIN Comment on above: Performed By: #### KRUPA Scott, GFR, PHOS ####[place] [address] Glucose [Mass/Vol] 103 mg/dL Normal 70-110 [facility] MAIN Comment on above: Performed By: #### Gene Watkins, KRUPA, GFR, PHOS ####[place] [address] Potassium [Moles/Vol] 3.4 mmol/L Low 3.5-5.0 [facility] MAIN Comment on above: Performed By: #### KRUPA Scott, GFR, PHOS ####[place] [address] Sodium [Moles/Vol] 140 mmol/L Normal 136-145 [facility] MAIN Comment on above: Performed By: #### Gene Watkins, KRUPA, GFR, PHOS ####[place] [address] CT ABDOMEN/PELVIS W/CONTRAST on 08-22-2024 CT ABDOMEN/PELVIS W/CONTRAST Normal [facility] MAIN LABORATORYOrdered By: Leo rao on 08-22-2024 LDose Vancomycin:(trough) See eMAR (08/22/24 10:26 PM) Normal Chemistry S LABORATORYOrdered By: SYSTEM SYSTEM on 08-22-2024 Vancomycin trough [Mass/Vol] 4.8 ug/mL Low 5.0 - 20.0 mcg/mL ADM SS MGon 08-22-2024 Magnesium [Mass/Vol] 1.8 mg/dL Normal 1.6-2.4 [facility] MAIN Comment on above: Performed By: #### KRUPA Scott, GFR, PHOS ####[place] [address] PHOSon 08-22-2024 Phosphate [Mass/Vol] 3.5 mg/dL Normal 2.4-5.1 [facility] MAIN Comment on above: Result Comment: No te - New Reference Range in effect 20 Performed By: #### M G, BMP, GFR, PHOS ####[place] [address] VANCTon 08-22-2024 LDose Vancomycin:(trough) See eMAR Normal [facility] MAIN Comment on above: Performed By: #### V ANCT ####[place] [address] Vancomycin Tr 4.8 mcg/mL Low 5.0-20.0 [facility] MAIN Comment on above: Performed By: #### V ANCT ####[place] [address] .GFRon 08-21-2024 Estimated Glomerular Filtration Rate 120 ml/min/1.73sqm Normal [facility] MAIN Comment on above: Result Comment: Stag [...] BMP, DIFF, MG, CBC, PHOS ####[place] [address] .Manual Diffon 08-21-2024 Basophil %, Manual 1.0 % Normal 0.0-2.5 [facility] MAIN Comment on above: Performed By: #### M ORPH, GFR, BMP, DIFF, MG, CBC, PHOS ####[place] [address] Basophil, Abs Manual 0.1 10 3/mcL Normal 0.0-0.3 [facility] MAIN Comment on above: Performed By: #### M ORPH, GFR, BMP, DIFF, MG, CBC, PHOS ####[place] [address] Eosinophil %, Manual 1.0 % Normal 0.0-6.0 [facility] MAIN Comment on above: Performed By: #### M ORPH, GFR, BMP, DIFF, MG, CBC, PHOS ####[address] [address] Eosinophil, Abs Manual 0.1 10 3/mcL Normal 0.0-0.7 [facility] MAIN Comment on above: Performed By: #### M ORPH, GFR, BMP, DIFF, MG, CBC, PHOS ####[place] [address] Lymphocyte %, Manual 15.0 % Low 20.0-40.0 [facility] MAIN Comment on above: Performed By: #### M ORPH, GFR, BMP, DIFF, MG, CBC, PHOS ####[address] [address] Lymphocyte, Abs Manual 1.6 10 3/mcL Normal 0.9-4.3 [facility] MAIN Comment on above: Performed By: #### M ORPH, GFR, BMP, DIFF, MG, CBC, PHOS ####[address] [address] Monocyte %, Manual 7.0 % Normal 2.0-13.0 [facility] MAIN Comment on above: Performed By: #### M ORPH, GFR, BMP, DIFF, MG, CBC, PHOS ####[address] [address] Monocyte, Abs Manual 0.7 10 3/mcL Normal 0.1-1.4 [facility] MAIN Comment on above: Performed By: #### M ORPH, GFR, BMP, DIFF, MG, CBC, PHOS ####[address] [address] Myelocyte 1.0 % Normal [facility] MAIN Comment on above: Performed By: #### M ORPH, GFR, BMP, DIFF, MG, CBC, PHOS ####[address] [address] Neutrophil %, Manual 75.0 % Normal 50.0-75.0 [facility] MAIN Comment on above: Performed By: #### M ORPH, GFR, BMP, DIFF, MG, CBC, PHOS ####[place] [address] Neutrophil, Abs Manual 8.0 10 3/mcL Normal 2.3-8.1 [facility] MAIN Comment on above: Performed By: #### M ORPH, GFR, BMP, DIFF, MG, CBC, PHOS ####[place] [address] Nucleated RBC 0.0 /100 WBC [facility] MAIN Comment on above: Performed By: #### M ORPH, GFR, BMP, DIFF, MG, CBC, PHOS ####[place] [address] .Morphon 08-21-2024 Platelet Clumps Few [facility] MAIN Comment on above: Performed By: #### M ORPH, GFR, BMP, DIFF, MG, CBC, PHOS ####[place] [address] Platelet Estimate Normal [facility] MAIN Comment on above: Performed By: #### M ORPH, GFR, BMP, DIFF, MG, CBC, PHOS ####[place] [address] Anisocytosis Ql (Bld) 1+ [facility] MAIN Comment on above: Performed By: #### M ORPH, GFR, BMP, DIFF, MG, CBC, PHOS ####[place] [address] Microcytosis 2+ [facility] MAIN Comment on above: Performed By: #### M ORPH, GFR, BMP, DIFF, MG, CBC, PHOS ####[place] [address] Ovalocytes 1+ [facility] MAIN Comment on above: Performed By: #### M ORPH, GFR, BMP, DIFF, MG, CBC, PHOS ####[place] [address] Poik 1+ [facility] MAIN Comment on above: Performed By: #### M ORPH, GFR, BMP, DIFF, MG, CBC, PHOS ####[address] [address] Toxic Gran 1+ Normal [facility] MAIN Comment on above: Performed By: #### M ORPH, GFR, BMP, DIFF, MG, CBC, PHOS ####[address] [address] Vacuolated Neutrophils 1+ Normal [facility] MAIN Comment on above: Performed By: #### M ORPH, GFR, BMP, DIFF, MG, CBC, PHOS ####[address] [address] BMPon 08-21-2024 BUN/Creatinine Ratio Unable to Calculate Normal 10.0-2 2.0 [facility] MAIN Comment on above: Result Comment: Unab le to calculate this test result accurately. Results used to calculate this test are outside the reportable range. Performed By: #### M ORPH, GFR, BMP, DIFF, MG, CBC, PHOS ####[place] [id number] Urea nitrogen [Mass/Vol] mg/dL Low 8.0-22.0 [facility] MAIN Comment on above: Performed By: #### M ORPH, GFR, BMP, DIFF, MG, CBC, PHOS ####[address] [address] Calcium [Mass/Vol] 8.4 mg/dL Low 8.7-10.4 [facility] MAIN Comment on above: Performed By: #### M ORPH, GFR, BMP, DIFF, MG, CBC, PHOS ####[address] [address] Chloride [Moles/Vol] 102 mmol/L Normal 98-110 [facility] MAIN Comment on above: Performed By: #### M ORPH, GFR, BMP, DIFF, MG, CBC, PHOS ####[address] [address] CO2 [Moles/Vol] 32 mmol/L Normal 22-32 [facility] MAIN Comment on above: Performed By: #### M ORPH, GFR, BMP, DIFF, MG, CBC, PHOS ####[place] [address] Creatinine [Mass/Vol] 0.47 mg/dL Low 0.50-1.20 [facility] MAIN Comment on above: Result Comment: Test ing performed on Action[employer] analyzer using enzymatic creatinine methodology. Performed By: #### M ORPH, GFR, BMP, DIFF, MG, CBC, PHOS ####[place] [address] Electrolyte Balance 6.0 mEq/L Normal 4.0-15.0 [facility] MAIN Comment on above: Performed By: #### M ORPH, GFR, BMP, DIFF, MG, CBC, PHOS ####[place] [address] Glucose [Mass/Vol] 106 mg/dL Normal 70-110 [facility] MAIN Comment on above: Performed By: #### M ORPH, GFR, BMP, DIFF, MG, CBC, PHOS ####[place] [address] Potassium [Moles/Vol] 3.3 mmol/L Low 3.5-5.0 [facility] MAIN Comment on above: Performed By: #### M ORPH, GFR, BMP, DIFF, MG, CBC, PHOS ####[place] [address] Sodium [Moles/Vol] 140 mmol/L Normal 136-145 [facility] MAIN Comment on above: Performed By: #### M ORPH, GFR, BMP, DIFF, MG, CBC, PHOS ####[place] [address] CBCon 08-21-2024 WBC 10.6 10 3/mcL Normal 4.5-10.8 [facility] MAIN Comment on above: Performed By: #### M ORPH, GFR, BMP, DIFF, MG, CBC, PHOS ####[place] [address] Platelet 417 10 3/mcL Normal 150-450 [facility] MAIN Comment on above: Performed By: #### M ORPH, GFR, BMP, DIFF, MG, CBC, PHOS ####[address] [address] Platelet mean volume (Bld) [Entitic vol] 8.6 fL Normal 6.6-10.5 [facility] MAIN Comment on above: Performed By: #### M ORPH, GFR, BMP, DIFF, MG, CBC, PHOS ####[place] [address] Erythrocyte distribution width (RBC) [Ratio] 17.3 % High 11.5-15.5 [facility] MAIN Comment on above: Performed By: #### M ORPH, GFR, BMP, DIFF, MG, CBC, PHOS ####[place] [address] Hematocrit (Bld) [Volume fraction] 25.3 % Low 34.0-46.0 [facility] MAIN Comment on above: Performed By: #### M ORPH, GFR, BMP, DIFF, MG, CBC, PHOS ####[place] [address] Hgb 7.9 G/dL Low 12.0-16.0 [facility] MAIN Comment on above: Performed By: #### M ORPH, GFR, BMP, DIFF, MG, CBC, PHOS ####[place] [address] MCH (RBC) [Entitic mass] 22.1 pg Low 27.0-33.0 [facility] MAIN Comment on above: Performed By: #### M ORPH, GFR, BMP, DIFF, MG, CBC, PHOS ####[place] [address] MCHC 31.1 G/dL Low 32.0-36.0 [facility] MAIN Comment on above: Performed By: #### M ORPH, GFR, BMP, DIFF, MG, CBC, PHOS ####[place] [address] MCV (RBC) [Entitic vol] 71.1 fL Low 80.0-99.0 [facility] MAIN Comment on above: Performed By: #### M ORPH, GFR, BMP, DIFF, MG, CBC, PHOS ####[place] [address] RBC 3.56 10 6/mcL Low 4.10-5.30 [facility] MAIN Comment on above: Performed By: #### M ORPH, GFR, BMP, DIFF, MG, CBC, PHOS ####[id number] [place] [id number] LABORATORYOrdered By: SYSTEM SYSTEM on 08-21-2024 Anisocytosis [...] 08-21-2024 Magnesium [Mass/Vol] 1.8 mg/dL Normal 1.6-2.4 [facility] MAIN Comment on above: Performed By: #### M ORPH, GFR, BMP, DIFF, MG, CBC, PHOS ####[place] [address] PHOSon 08-21-2024 Phosphate [Mass/Vol] 2.9 mg/dL Normal 2.4-5.1 [facility] MAIN Comment on above: Result Comment: No te - New Reference Range in effect 20 Performed By: #### M ORPH, GFR, BMP, DIFF, MG, CBC, PHOS ####[address] [address] .Auto Diffon 08-20-2024 Basophil, Absolute 0.0 10 3/mcL Normal 0.0-0.3 [facility] MAIN Comment on above: Performed By: #### C BC, MG, BMP, ANEU, PHOS, ADIFF, GFR ####[place] [address] Basophils/100 WBC (Bld) 0.3 % Normal 0.0-2.5 [facility] MAIN Comment on above: Performed By: #### C BC, MG, BMP, ANEU, PHOS, ADIFF, GFR ####[address] [address] Eosinophil, Absolute 0.0 10 3/mcL Normal 0.0-0.7 [facility] MAIN Comment on above: Performed By: #### C BC, MG, BMP, ANEU, PHOS, ADIFF, GFR ####[address] [address] Eosinophils/100 WBC (Bld) 0.2 % Normal 0.0-6.0 [facility] MAIN Comment on above: Performed By: #### C BC, MG, BMP, ANEU, PHOS, ADIFF, GFR ####[address] [address] Lymphocyte, Absolute 1.2 10 3/mcL Normal 0.9-4.3 [facility] MAIN Comment on above: Performed By: #### C BC, MG, BMP, ANEU, PHOS, ADIFF, GFR ####[address] [address] Lymphocytes/100 WBC (Bld) 17.6 % Low 20.0-40.0 [facility] MAIN Comment on above: Performed By: #### C BC, MG, BMP, ANEU, PHOS, ADIFF, GFR ####[address] [address] Monocyte, Absolute 1.2 10 3/mcL Normal 0.1-1.4 [facility] MAIN Comment on above: Performed By: #### C BC, MG, BMP, ANEU, PHOS, ADIFF, GFR ####[address] [address] Monocytes/100 WBC (Bld) 17.8 % High 2.0-13.0 [facility] MAIN Comment on above: Performed By: #### C BC, MG, BMP, ANEU, PHOS, ADIFF, GFR ####[address] [address] Neutrophils/100 WBC (Bld) 64.1 % Normal 50.0-75.0 [facility] MAIN Comment on above: Performed By: #### C BC, MG, BMP, ANEU, PHOS, ADIFF, GFR ####[address] [address] .GFRon 08-20-2024 GFR/1.73 sq M.predicted among non-blacks MDRD (S/P/Bld) [Vol rate/Area] mL/min/{1.73_m2} Normal [facility] MAIN Comment on above: Result Comment: Stag [...] BC, MG, BMP, ANEU, PHOS, ADIFF, GFR ####[address] [address] .NEUABSon 08-20-2024 Neutrophil, Absolute 4.4 10 3/mcL Normal 2.3-8.1 [facility] MAIN Comment on above: Performed By: #### C BC, MG, BMP, ANEU, PHOS, ADIFF, GFR ####[address] [address] BMPon 08-20-2024 BUN/Creatinine Ratio 13.3 ratio Normal 10.0-22.0 [facility] MAIN Comment on above: Performed By: #### C BC, MG, BMP, ANEU, PHOS, ADIFF, GFR ####[address] [address] Calcium [Mass/Vol] 8.1 mg/dL Low 8.7-10.4 [facility] MAIN Comment on above: Performed By: #### C BC, MG, BMP, ANEU, PHOS, ADIFF, GFR ####[address] [address] Chloride [Moles/Vol] 103 mmol/L Normal 98-110 [facility] MAIN Comment on above: Performed By: #### C BC, MG, BMP, ANEU, PHOS, ADIFF, GFR ####[address] [address] CO2 [Moles/Vol] 27 mmol/L Normal 22-32 [facility] MAIN Comment on above: Performed By: #### C BC, MG, BMP, ANEU, PHOS, ADIFF, GFR ####[place] [address] Creatinine [Mass/Vol] 0.45 mg/dL Low 0.50-1.20 [facility] MAIN Comment on above: Result Comment: Test ing performed on Actionsoft analyzer using enzymatic creatinine methodology. Performed By: #### C BC, MG, BMP, ANEU, PHOS, ADIFF, GFR ####[place] [address] Electrolyte Balance 7.0 mEq/L Normal 4.0-15.0 [facility] MAIN Comment on above: Performed By: #### C BC, MG, BMP, ANEU, PHOS, ADIFF, GFR ####[place] [address] Glucose [Mass/Vol] 88 mg/dL Normal 70-110 [facility] MAIN Comment on above: Performed By: #### C BC, MG, BMP, ANEU, PHOS, ADIFF, GFR ####[place] [address] Potassium [Moles/Vol] 3.3 mmol/L Low 3.5-5.0 [facility] MAIN Comment on above: Performed By: #### C BC, MG, BMP, ANEU, PHOS, ADIFF, GFR ####[place] [address] Sodium [Moles/Vol] 137 mmol/L Normal 136-145 [facility] MAIN Comment on above: Performed By: #### C BC, MG, BMP, ANEU, PHOS, ADIFF, GFR ####[place] [address] Urea nitrogen [Mass/Vol] 6.0 mg/dL Low 8.0-22.0 [facility] MAIN Comment on above: Performed By: #### C BC, MG, BMP, ANEU, PHOS, ADIFF, GFR ####[place] [address] CBCon 02-20-2025 Erythrocyte distribution width (RBC) [Ratio] 16.7 % High 11.5-15.5 [facility] MAIN Comment on above: Order Comment: recol lect cbc- clotted Performed By: #### C BC, MG, BMP, ANEU, PHOS, ADIFF, GFR ####[address] [address] Hematocrit (Bld) [Volume fraction] 25.0 % Low 34.0-46.0 [facility] MAIN Comment on above: Order Comment: recol lect cbc- clotted Performed By: #### C BC, MG, BMP, ANEU, PHOS, ADIFF, GFR ####[address] [address] Hgb 7.8 G/dL Low 12.0-16.0 [facility] MAIN Comment on above: Order Comment: recol lect cbc- clotted Performed By: #### C BC, MG, BMP, ANEU, PHOS, ADIFF, GFR ####[address] [address] MCH (RBC) [Entitic mass] 22.1 pg Low 27.0-33.0 [facility] MAIN Comment on above: Order Comment: recol lect cbc- clotted Performed By: #### C BC, MG, BMP, ANEU, PHOS, ADIFF, GFR ####[place] [address] MCHC 31.3 G/dL Low 32.0-36.0 [facility] MAIN Comment on above: Order Comment: recol lect cbc- clotted Performed By: #### C BC, MG, BMP, ANEU, PHOS, ADIFF, GFR ####[address] [address] MCV (RBC) [Entitic vol] 70.8 fL Low 80.0-99.0 [facility] MAIN Comment on above: Order Comment: recol lect cbc- clotted Performed By: #### C BC, MG, BMP, ANEU, PHOS, ADIFF, GFR ####[address] [address] Platelet 438 10 3/mcL Normal 150-450 [facility] MAIN Comment on above: Order Comment: recol lect cbc- clotted Performed By: #### C BC, MG, BMP, ANEU, PHOS, ADIFF, GFR ####[place] [address] Platelet mean volume (Bld) [Entitic vol] 8.5 fL Normal 6.6-10.5 [facility] MAIN Comment on above: Order Comment: recol lect cbc- clotted Performed By: #### C BC, MG, BMP, ANEU, PHOS, ADIFF, GFR ####[place] [address] RBC 3.53 10 6/mcL Low 4.10-5.30 [facility] MAIN Comment on above: Order Comment: recol lect cbc- clotted Performed By: #### C BC, MG, BMP, ANEU, PHOS, ADIFF, GFR ####[place] [address] WBC 6.9 10 3/mcL Normal 4.5-10.8 [facility] MAIN Comment on above: Order Comment: recol lect cbc- clotted Performed By: #### C BC, MG, BMP, ANEU, PHOS, ADIFF, GFR ####[place] [address] LABORATORYOrdered By: Sandy Zee on 08-20-2024 LDose Vancomycin:(trough) See eMAR (08/20/24 9:38 PM) Normal [facility] Chemistry S LABORATORYOrdered By: SYSTEM SYSTEM on 08-20-2024 Vancomycin trough [Mass/Vol] 5.9 ug/mL Normal 5.0 - 20.0 mcg/mL AH ADM SS MGon 08-20-2024 Magnesium [Mass/Vol] 1.8 mg/dL Normal 1.6-2.4 [facility] MAIN Comment on above: Performed By: #### C BC, MG, BMP, ANEU, PHOS, ADIFF, GFR ####[place] [address] PHOSon 08-20-2024 Phosphate [Mass/Vol] 2.4 mg/dL Normal 2.4-5.1 [facility] MAIN Comment on above: Result Comment: No te - New Reference Range in effect 20 Performed By: #### C BC, MG, BMP, ANEU, PHOS, ADIFF, GFR ####[place] [address] VANCTon 08-20-2024 LDose Vancomycin:(trough) See eMAR Normal [facility] MAIN Comment on above: Performed By: #### V ANCT ####[place] [address] Vancomycin Tr 5.9 mcg/mL Normal 5.0-20.0 [facility] MAIN Comment on above: Performed By: #### V ANCT ####[place] [address] .GFRon 08-19-2024 Estimated Glomerular Filtration Rate 115 ml/min/1.73sqm Normal [facility] MAIN Comment on above: Result Comment: Stag [...] MDW, MORPH, GFR, LIP, CBC ####[place] [address] .MDWon 08-19-2024 Monocyte Distribution Width 22.84 High 0.00-20.00 [facility] MAIN Comment on above: Result Comment: The predictive value of MDW for identifying sepsis in patients with hematological abnormalities has not been established Performed By: #### D IFF, CMP, LAC, MDW, MORPH, GFR, LIP, CBC ####[place] [address] .Manual Diffon 08-19-2024 Basophil %, Manual 1.0 % Normal 0.0-2.5 [facility] MAIN Comment on above: Performed By: #### D IFF, CMP, LAC, MDW, MORPH, GFR, LIP, CBC ####[address] [address] Basophil, Abs Manual 0.0 10 3/mcL Normal 0.0-0.3 [facility] MAIN Comment on above: Performed By: #### D IFF, CMP, LAC, MDW, MORPH, GFR, LIP, CBC ####[address] [address] Eosinophil %, Manual 0.0 % Normal 0.0-6.0 [facility] MAIN Comment on above: Performed By: #### D IFF, CMP, LAC, MDW, MORPH, GFR, LIP, CBC ####[address] [address] Eosinophil, Abs Manual 0.0 10 3/mcL Normal 0.0-0.7 [facility] MAIN Comment on above: Performed By: #### D IFF, CMP, LAC, MDW, MORPH, GFR, LIP, CBC ####[address] [address] Lymphocyte %, Manual 18.0 % Low 20.0-40.0 [facility] MAIN Comment on above: Performed By: #### D IFF, CMP, LAC, MDW, MORPH, GFR, LIP, CBC ####[address] [address] Lymphocyte, Abs Manual 0.6 10 3/mcL Low 0.9-4.3 [facility] MAIN Comment on above: Performed By: #### D IFF, CMP, LAC, MDW, MORPH, GFR, LIP, CBC ####[place] [id number] Monocyte %, Manual 28.0 % High 2.0-13.0 [facility] MAIN Comment on above: Performed By: #### D IFF, CMP, LAC, MDW, MORPH, GFR, LIP, CBC ####[place] [id number] Monocyte, Abs Manual 0.9 10 3/mcL Normal 0.1-1.4 [facility] MAIN Comment on above: Performed By: #### D IFF, CMP, LAC, MDW, MORPH, GFR, LIP, CBC ####[place] [address] Neutrophil %, Manual 53.0 % Normal 50.0-75.0 [facility] MAIN Comment on above: Performed By: #### D IFF, CMP, LAC, MDW, MORPH, GFR, LIP, CBC ####[place] [address] Neutrophil, Abs Manual 1.7 10 3/mcL Low 2.3-8.1 [facility] MAIN Comment on above: Performed By: #### D IFF, CMP, LAC, MDW, MORPH, GFR, LIP, CBC ####[place] [address] Nucleated RBC 0.0 /100 WBC Normal [facility] MAIN Comment on above: Performed By: #### D IFF, CMP, LAC, MDW, MORPH, GFR, LIP, CBC ####[place] [address] .Morphon 08-19-2024 Platelet Estimate Slt Increased Normal [facility] MAIN Comment on above: Performed By: #### D IFF, CMP, LAC, MDW, MORPH, GFR, LIP, CBC ####[place] [address] Anisocytosis Ql (Bld) 1+ Normal [facility] MAIN Comment on above: Performed By: #### D IFF, CMP, LAC, MDW, MORPH, GFR, LIP, CBC ####[place] [address] Hypochrom 1+ Normal [facility] MA[facility] Comment on above: Performed By: #### D IFF, CMP, LAC, MDW, MORPH, GFR, LIP, CBC ####[place] [address] Macrocytosis 2+ Normal [facility] MA[facility] Comment on above: Performed By: #### D IFF, CMP, LAC, MDW, MORPH, GFR, LIP, CBC ####[address] [address] Ovalocytes 1+ Normal [facility] MA[facility] Comment on above: Performed By: #### D IFF, CMP, LAC, MDW, MORPH, GFR, LIP, CBC ####[place] [address] Poik 1+ Normal [facility] MAIN Comment on above: Performed By: #### D IFF, CMP, LAC, MDW, MORPH, GFR, LIP, CBC ####[place] [address] APTTon 08-19-2024 aPTT Coag (Bld) [Time] 21.8 s Low 25.0-35.0 [facility] Comment on above: Result Comment: For Heparin anticoagulation therapy, the recommendedtherapeutic range is: 54-77 seconds (APTT Correlationwith Anti-Xa therapeutic range of 0.3-0.7 units/ml).PLEASE REFERENCE THE PHARMACY PROTOCOL FOR DOSING. Performed By: #### A PTT, LAC ####[place] [address] CBCon 08-19-2024 Erythrocyte distribution width (RBC) [Ratio] 16.7 % High 11.5-15.5 [facility] Comment on above: Order Comment: clott ed, recollect Performed By: #### D IFF, CMP, LAC, MDW, MORPH, GFR, LIP, CBC ####[place] [address] Hematocrit (Bld) [Volume fraction] 27.7 % Low 34.0-46.0 [facility] Comment on above: Order Comment: clott ed, recollect Performed By: #### D IFF, CMP, LAC, MDW, MORPH, GFR, LIP, CBC ####[place] [address] Hgb 8.7 G/dL Low 12.0-16.0 [facility] Comment on above: Order Comment: clott ed, recollect Performed By: #### D IFF, CMP, LAC, MDW, MORPH, GFR, LIP, CBC ####[place] [address] MCH (RBC) [Entitic mass] 22.1 pg Low 27.0-33.0 [facility] Comment on above: Order Comment: clott ed, recollect Performed By: #### D IFF, CMP, LAC, MDW, MORPH, GFR, LIP, CBC ####[place] [address] MCHC 31.2 G/dL Low 32.0-36.0 [facility] Comment on above: Order Comment: clott ed, recollect Performed By: #### D IFF, CMP, LAC, MDW, MORPH, GFR, LIP, CBC ####[place] [address] MCV (RBC) [Entitic vol] 70.9 fL Low 80.0-99.0 [facility] Comment on above: Order Comment: clott ed, recollect Performed By: #### D IFF, CMP, LAC, MDW, MORPH, GFR, LIP, CBC ####[place] [address] Platelet 451 10 3/mcL High 150-450 [facility] [facility] Comment on above: Order Comment: clott ed, recollect Performed By: #### D IFF, CMP, LAC, MDW, MORPH, GFR, LIP, CBC ####[place] [address] Platelet mean volume (Bld) [Entitic vol] 7.9 fL Normal 6.6-10.5 [facility] MAIN Comment on above: Order Comment: clott ed, recollect Performed By: #### D IFF, CMP, LAC, MDW, MORPH, GFR, LIP, CBC ####[place] [address] RBC 3.92 10 6/mcL Low 4.10-5.30 [facility] MAIN Comment on above: Order Comment: clott ed, recollect Performed By: #### D IFF, CMP, LAC, MDW, MORPH, GFR, LIP, CBC ####[place] [address] WBC 3.2 10 3/mcL Low 4.5-10.8 [facility] MAIN Comment on above: Order Comment: clott ed, recollect Performed By: #### D IFF, CMP, LAC, MDW, MORPH, GFR, LIP, CBC ####[address] [address] CMPon 08-19-2024 Albumin Level 3.0 G/dL Low 3.2-4.8 [facility] MAIN Comment on above: Performed By: #### D IFF, CMP, LAC, MDW, MORPH, GFR, LIP, CBC ####[place] [address] Albumin/Globulin [Mass ratio] 0.7 {ratio} Low 0.9-1.6 [facility] MAIN Comment on above: Performed By: #### D IFF, CMP, LAC, MDW, MORPH, GFR, LIP, CBC ####[address] [address] ALP [Catalytic activity/Vol] 108 U/L Normal 38-126 [facility] MAIN Comment on above: Performed By: #### D IFF, CMP, LAC, MDW, MORPH, GFR, LIP, CBC ####[address] [address] ALT [Catalytic activity/Vol] 20 U/L Normal 10-49 [facility] MAIN Comment on above: Performed By: #### D IFF, CMP, LAC, MDW, MORPH, GFR, LIP, CBC ####[address] [address] AST [Catalytic activity/Vol] 24 U/L Normal 8-34 [facility] MAIN Comment on above: Performed By: #### D IFF, CMP, LAC, MDW, MORPH, GFR, LIP, CBC ####[address] [address] Bili Total 1.00 mg/dL Normal 0.20-1.20 [facility] MAIN Comment on above: Result Comment: Use of this assay is not recommended for patients undergoing treatment with eltrombopag due to the potential for falsely elevated results. Performed By: #### D IFF, CMP, LAC, MDW, MORPH, GFR, LIP, CBC ####[address] [address] BUN/Creatinine Ratio 14.0 ratio Normal 10.0-22.0 [facility] MAIN Comment on above: Performed By: #### D IFF, CMP, LAC, MDW, MORPH, GFR, LIP, CBC ####[address] [address] Calcium [Mass/Vol] 8.9 mg/dL Normal 8.7-10.4 [facility] MAIN Comment on above: Performed By: #### D IFF, CMP, LAC, MDW, MORPH, GFR, LIP, CBC ####[address] [address] Chloride [Moles/Vol] 99 mmol/L Normal 98-110 [facility] MAIN Comment on above: Performed By: #### D IFF, CMP, LAC, MDW, MORPH, GFR, LIP, CBC ####[address] [address] CO2 [Moles/Vol] 25 mmol/L Normal 22-32 [facility] MAIN Comment on above: Performed By: #### D IFF, CMP, LAC, MDW, MORPH, GFR, LIP, CBC ####[place] [id number] Creatinine [Mass/Vol] 0.57 mg/dL Normal 0.50-1.20 [facility] MAIN Comment on above: Result Comment: Test ing performed on [employer] analyzer using enzymatic creatinine methodology. Performed By: #### D IFF, CMP, LAC, MDW, MORPH, GFR, LIP, CBC ####[address] [address] Electrolyte Balance 12.0 mEq/L Normal 4.0-15.0 [facility] MAIN Comment on above: Performed By: #### D IFF, CMP, LAC, MDW, MORPH, GFR, LIP, CBC ####[address] [address] Globulin 4.6 G/dL High 1.5-3.8 [facility] MA[facility] Comment on above: Performed By: #### D IFF, CMP, LAC, MDW, MORPH, GFR, LIP, CBC ####[place] [address] Glucose [Mass/Vol] 131 mg/dL High 70-110 [facility] MAIN Comment on above: Performed By: #### D IFF, CMP, LAC, MDW, MORPH, GFR, LIP, CBC ####[place] [address] Potassium [Moles/Vol] 3.3 mmol/L Low 3.5-5.0 [facility] MAIN Comment on above: Performed By: #### D IFF, CMP, LAC, MDW, MORPH, GFR, LIP, CBC ####[place] [address] Sodium [Moles/Vol] 136 mmol/L Normal 136-145 [facility] MAIN Comment on above: Performed By: #### D IFF, CMP, LAC, MDW, MORPH, GFR, LIP, CBC ####[place] [address] Total Protein 7.6 G/dL Normal 5.7-8.2 [facility] MAIN Comment on above: Performed By: #### D IFF, CMP, LAC, MDW, MORPH, GFR, LIP, CBC ####[place] [address] Urea nitrogen [Mass/Vol] 8.0 mg/dL Normal 8.0-22.0 [facility] MA[facility] Comment on above: Performed By: #### D IFF, CMP, LAC, MDW, MORPH, GFR, LIP, CBC ####[place] [address] CT ABD/PELVIS W/ IV CONTRAST ONLYon 08-19-2024 CT ABD/PELVIS W/ IV CONTRAST ONLY Normal [facility] MAIN CVFLURVon 08-19-2024 FLU A PCR Negative Normal Negative [facility] MAIN Comment on above: Result Comment: [place] [id number] Performed By: #### C VFLURV ####[place] [address] FLU B PCR Negative Normal Negative [facility] MAIN Comment on above: Result [place]: [place] [id number] Performed By: #### C VFLURV ####[place] [address] RSV PCR Negative Normal Negative [facility] MAIN Comment on above: Result [place]: [place] [id number] Performed By: #### C VFLURV ####[place] [address] SARS-CoV-2 (COVID-19) RNA EUGENE+probe Ql (Unsp spec) Negative Normal Negative [facility] MAIN Comment on above: Result Comment: Note s [id number] test has been authorized by FDA under [...] Performed By: #### C VFLURV ####[place] [address] LABORATORYOrdered By: SYSTEM SYSTEM on 08-19-2024 aPTT [...] Comment on above: [place]: [place] [id number] MRSA PCR Int MRSA DNA not detecte [...] Comment on above: Interpretive Data: T he [employer] (CHEST, 1991, 102:312S-25S) [...] Comment on above: Result Comment: [place] [id number] FLUBV RNA EUGENE+probe Ql (Resp) Negative 27 (08/19/24 5:01 AM) Normal Negative AH Auto Viro/Sero SS Comment on above: Result Comment: [place] [id number] RSV PCR Negative 29 (08/19/24 5:01 AM) Normal Negative AH Auto Viro/Sero SS Comment on above: Result Comment: [place] [id number] SARS-CoV-2 (COVID-19) RNA EUGENE+probe Ql (Resp) Negative [...] inaccurate positive results. [place]: [place] [id number] LABORATORYOrdered By: Carin Cordon on 08-19-2024 Appearance [...] Lactic Acid Lvl 1.5 mmol/L Normal 0.5-2.2 [facility] MAIN Comment on above: Performed By: #### A PTT, LAC ####[place] [address] Lactic Acid Lvl 1.4 mmol/L Normal 0.5-2.2 [facility] MAIN Comment on above: Performed By: #### D IFF, CMP, LAC, MDW, MORPH, GFR, LIP, CBC ####[place] [address] LIPon 08-19-2024 Lipase Level 27 U/L Normal 12-53 [facility] MAIN Comment on above: Result Comment: No te - New Reference Range in effect 20 Performed By: #### D IFF, CMP, LAC, MDW, MORPH, GFR, LIP, CBC ####[place] [address] MRSAPCRon 08-19-2024 MRSA (PCR) Not detected Normal Not Detected [facility] MAIN Comment on above: [place]: [place] [id number] Performed By: #### M RSAPCR ####[place] [address] MRSA PCR Int Normal [facility] MAIN Comment on above: Result Comment: MRSA [...] Performed By: #### M RSAPCR ####[place] [address] No Panel Informationon 08-19 Microscopic examination of blood, culture Blood Culture: No Growth at 5 days. [facility] Work Phone: Microscopic examination of blood, culture Blood Culture: No Growth at 5 days. [facility] Work Phone: PROon 08-19-2024 INR Coag (PPP) [Relative time] 1.7 {INR} Normal [facility] MAIN Comment on above: Result Comment: The [employer] (CHEST, 1992, 102:312S-25S)recommended therapeutic range for oral anticoagulant therapy is:LOW RISK: Prophylaxis of venous thrombosis INR: 2.0-3.0 Treatment of pulmonary embolism 2.0-3.0 Prevention of systemic embolism 2.0-3.0HIGH RISK: Mechanical prosthetic valves 2.5-3.5 PT Coag (PPP) [Time] 19.4 s High 9.0-14.4 [facility] MAIN Comment on above: Result Comment: [place] ctive 01/13/08, Protime results may be affected by some antibiotics (i.e. Ciprofloxacin, Azithromycin, Bactrim) which may potentiate the action of oral anticoagulants, with further increases in Protime/INR. UAon 08-19-2024 Color (U) Yellow Normal [facility] MAIN Comment on above: Performed By: #### U A ####[place] [address] Glucose (U) [Mass/Vol] Negative Normal Negative [facility] MAIN Comment on above: Performed By: #### U A ####[place] [address] Ketones Ql (U) Negative Normal Neg-Trace [facility] MAIN Comment on above: Performed By: #### U A ####[place] [address] UA Appear Clear Normal Clear [facility] MAIN Comment on above: Performed By: #### U A ####[place] [address] UA Blood Trace Normal Neg-Trace [facility] MAIN Comment on above: Performed By: #### U A ####[place] [address] UA Leuk Est Trace Normal Negative [facility] MAIN Comment on above: Performed By: #### U A ####[place] [address] UA Nitrite Negative Normal Negative [facility] MAIN Comment on above: Performed By: #### U A ####[place] [address] UA pH 7.5 Normal 5.0 - 8.0 [facility] MAIN Comment on above: Performed By: #### U A ####[place] [address] UA Protein Trace Normal Negative [facility] MAIN Comment on above: Performed By: #### U A ####[place] [address] UA Spec Grav 1.015 Normal 1.006-1.02 9 [facility] MAIN Comment on above: Performed By: #### U A ####[place] [address] UA Specimen Type Void Normal [facility] MAIN Comment on above: Performed By: #### U A ####[place] [address] UA Urobilinogen 1.0 E.U./dL Normal 0.2-1.0 [facility] MAIN Comment on above: Performed By: #### U A ####[place] [address] Urobilinogen (U) [Mass/Vol] Negative Normal Neg-Trace [facility] MAIN Comment on above: Performed By: #### U A ####[place] [address] .Auto Diffon 08-18-2024 Basophil, Absolute 0.0 10 3/mcL Normal 0.0-0.3 [facility] MAIN Comment on above: Performed By: #### F ES, ANEU, ADIFF, GFR, FOL, B12, CMP, MORPH, CBC, FERR ####[place] [address] Eosinophil, Absolute 0.0 10 3/mcL Normal 0.0-0.7 [facility] MAIN Comment on above: Performed By: #### F ES, ANEU, ADIFF, GFR, FOL, B12, CMP, MORPH, CBC, FERR ####[place] [address] Lymphocyte, Absolute 0.9 10 3/mcL Normal 0.9-4.3 [facility] MAIN Comment on above: Performed By: #### F ES, ANEU, ADIFF, GFR, FOL, B12, CMP, MORPH, CBC, FERR ####[place] [address] Monocyte, Absolute 0.5 10 3/mcL Normal 0.1-1.4 [facility] MA[facility] Comment on above: Performed By: #### F ES, ANEU, ADIFF, GFR, FOL, B12, CMP, MORPH, CBC, FERR ####[address] [address] .Auto DiffOrdered By: SYSTEM SYSTEM on 08-18-2024 Basophils/100 WBC (Bld) 0.6 % Normal 0.0-2.5 A H Workflow SS Comment on above: Performed By: #### F ES, ANEU, ADIFF, GFR, FOL, B12, CMP, MORPH, CBC, FERR ####[address] [address] Eosinophils/100 WBC (Bld) 2.0 % Normal 0.0-6.0 [facility] Workflow SS Comment on above: Performed By: #### F ES, ANEU, ADIFF, GFR, FOL, B12, CMP, MORPH, CBC, FERR ####[address] [address] Lymphocytes/100 WBC (Bld) 41.2 % High 20.0-40.0 [facility] Workflow SS Comment on above: Performed By: #### F ES, ANEU, ADIFF, GFR, FOL, B12, CMP, MORPH, CBC, FERR ####[address] [address] Monocytes/100 WBC (Bld) 22.7 % High 2.0-13.0 A H Workflow SS Comment on above: Performed By: #### F ES, ANEU, ADIFF, GFR, FOL, B12, CMP, MORPH, CBC, FERR ####[address] [address] Neutrophils/100 WBC (Bld) 33.5 % Low 50.0-75.0 [facility] Workflow SS Comment on above: Performed By: #### F ES, ANEU, ADIFF, GFR, FOL, B12, CMP, MORPH, CBC, FERR ####[address] [address] .GFROrdered By: SYSTEM Movero TechnologyE M on 08-18-2024 Estimated Glomerular Filtration Rate [...] B12, CMP, MORPH, CBC, FERR ####[place] [address] .Morphon 08-18-2024 Anisocytosis Ql (Bld) 1+ Normal [facility] MAIN Comment on above: Performed By: #### F ES, ANEU, ADIFF, GFR, FOL, B12, CMP, MORPH, CBC, FERR ####[place] [address] Microcytosis 2+ Normal [facility] MAIN Comment on above: Performed By: #### F ES, ANEU, ADIFF, GFR, FOL, B12, CMP, MORPH, CBC, FERR ####[place] [address] Platelet Estimate Normal [facility] MAIN Comment on above: Performed By: #### F ES, ANEU, ADIFF, GFR, FOL, B12, CMP, MORPH, CBC, FERR ####[place] [address] .NEUABSon 08-18-2024 Neutrophil, Absolute 0.7 10 3/mcL Low 2.3-8.1 [facility] MAIN Comment on above: Performed By: #### F ES, ANEU, ADIFF, GFR, FOL, B12, CMP, MORPH, CBC, FERR ####[place] [address] [id number] By: SYSTEM SYSTEM on 08-18-2024 Cobalamin (Vitamin B12) [Mass/Vol] 1316 pg/mL High 211-911 AH ADM SS Comment on above: Performed By: #### F ES, ANEU, ADIFF, GFR, FOL, B12, CMP, MORPH, CBC, FERR ####[place] [address] CBCOrdered By: SYSTEM SYSTEM on 08-18-2024 Erythrocyte distribution width (RBC) [Ratio] 16.8 % High 11.5-15.5 AH Workflow SS Comment on above: Performed By: #### F ES, ANEU, ADIFF, GFR, FOL, B12, CMP, MORPH, CBC, FERR ####[place] [address] Hematocrit (Bld) [Volume fraction] 29.6 % Low 34.0-46.0 AH Workflow SS Comment on above: Performed By: #### F ES, ANEU, ADIFF, GFR, FOL, B12, CMP, MORPH, CBC, FERR ####[place] [address] MCH (RBC) [Entitic mass] 22.3 pg Low 27.0-33.0 AH Workflow SS Comment on above: Performed By: #### F ES, ANEU, ADIFF, GFR, FOL, B12, CMP, MORPH, CBC, FERR ####[place] [address] MCHC 30.5 G/dL Low 32.0-36.0 AH Workflow SS Comment on above: Performed By: #### F ES, ANEU, ADIFF, GFR, FOL, B12, CMP, MORPH, CBC, FERR ####[place] [address] MCV (RBC) [Entitic vol] 72.9 fL Low 80.0-99.0 A H Workflow SS Comment on above: Performed By: #### F ES, ANEU, ADIFF, GFR, FOL, B12, CMP, MORPH, CBC, FERR ####[place] [address] Platelet mean volume (Bld) [Entitic vol] 8.4 fL Normal 6.6-10.5 [facility] SS Comment on above: Performed By: #### F ES, ANEU, ADIFF, GFR, FOL, B12, CMP, MORPH, CBC, FERR ####[place] [address] CBCon 08-18-2024 Hgb 9.0 G/dL Low 12.0-16.0 [facility] MAIN Comment on above: Performed By: #### F ES, ANEU, ADIFF, GFR, FOL, B12, CMP, MORPH, CBC, FERR ####[place] [address] Platelet 404 10 3/mcL Normal 150-450 [facility] MAIN Comment on above: Performed By: #### F ES, ANEU, ADIFF, GFR, FOL, B12, CMP, MORPH, CBC, FERR ####[place] [address] RBC 4.06 10 6/mcL Low 4.10-5.30 [facility] MAIN Comment on above: Performed By: #### F ES, ANEU, ADIFF, GFR, FOL, B12, CMP, MORPH, CBC, FERR ####[place] [address] WBC 2.1 10 3/mcL Low 4.5-10.8 [facility] MAIN Comment on above: Performed By: #### F ES, ANEU, ADIFF, GFR, FOL, B12, CMP, MORPH, CBC, FERR ####[place] [address] CMPon 08-18-2024 BUN/Creatinine Ratio Unable to Calculate Normal 10.0-2 2.0 [facility] MAIN Comment on above: Result Comment: Unab le to calculate this test result accurately. Results used to calculate this test are outside the reportable range. Performed By: #### F ES, ANEU, ADIFF, GFR, FOL, B12, CMP, MORPH, CBC, FERR ####[place] [address] Urea nitrogen [Mass/Vol] mg/dL Low 8.0-22.0 [facility] MAIN Comment on above: Performed By: #### F ES, ANEU, ADIFF, GFR, FOL, B12, CMP, MORPH, CBC, FERR ####[place] [address] Albumin Level 2.9 G/dL Low 3.2-4.8 [facility] MAIN Comment on above: Performed By: #### F ES, ANEU, ADIFF, GFR, FOL, B12, CMP, MORPH, CBC, FERR ####[place] [address] ALT [Catalytic activity/Vol] 20 U/L Normal 10-49 [facility] MAIN Comment on above: Performed By: #### F ES, ANEU, ADIFF, GFR, FOL, B12, CMP, MORPH, CBC, FERR ####[place] [address] Bili Total 0.70 mg/dL Normal 0.20-1.20 [facility] MAIN Comment on above: Result Comment: Use of this assay is not recommended for patients undergoing treatment with eltrombopag due to the potential for falsely elevated results. Performed By: #### F ES, ANEU, ADIFF, GFR, FOL, B12, CMP, MORPH, CBC, FERR ####[place] [address] Total Protein 7.3 G/dL Normal 5.7-8.2 [facility] MA[facility] Comment on above: Performed By: #### F ES, ANEU, ADIFF, GFR, FOL, B12, CMP, MORPH, CBC, FERR ####[place] [address] CMPOrdered By: SYSTEM SYSTEM on 08-18-2024 Albumin/Globulin [Mass ratio] 0.7 {ratio} Low 0.9-1.6 [facility] Comment on above: Performed By: #### F ES, ANEU, ADIFF, GFR, FOL, B12, CMP, MORPH, CBC, FERR ####[id number] [place], [place] [address] ALP [Catalytic activity/Vol] 107 U/L Normal 38-126 AH ADM SS Comment on above: Performed By: #### F ES, ANEU, ADIFF, GFR, FOL, B12, CMP, MORPH, CBC, FERR ####[place] [address] AST [Catalytic activity/Vol] 19 U/L Normal 8-34 AH ADM SS Comment on above: Performed By: #### F ES, ANEU, ADIFF, GFR, FOL, B12, CMP, MORPH, CBC, FERR ####[place] [address] Calcium [Mass/Vol] 9.1 mg/dL Normal 8.7-10.4 ADM SS Comment on above: Performed By: #### F ES, ANEU, ADIFF, GFR, FOL, B12, CMP, MORPH, CBC, FERR ####[place] [address] Chloride [Moles/Vol] 102 mmol/L Normal 98-110 AH A DM SS Comment on above: Performed By: #### F ES, ANEU, ADIFF, GFR, FOL, B12, CMP, MORPH, CBC, FERR ####[place] [address] CO2 [Moles/Vol] 30 mmol/L Normal 22-32 AH ADM SS Comment on above: Performed By: #### F ES, ANEU, ADIFF, GFR, FOL, B12, CMP, MORPH, CBC, FERR ####[place] [address] Creatinine [Mass/Vol] 0.54 mg/dL Normal 0.50-1.20 AH ADM SS Comment on above: Interpretive Data: T esting performed on [employer] CH analyzer using enzymatic creatinine methodology. Result Comment: Test ing performed on [employer] CH analyzer using enzymatic creatinine methodology. Performed By: #### F ES, ANEU, ADIFF, GFR, FOL, B12, CMP, MORPH, CBC, FERR ####[place] [address] Electrolyte Balance 5.0 mEq/L Normal 4.0-15.0 AH AD M SS Comment on above: Performed By: #### F ES, ANEU, ADIFF, GFR, FOL, B12, CMP, MORPH, CBC, FERR ####[place] [address] Globulin 4.4 G/dL High 1.5-3.8 AH ADM SS Comment on above: Performed By: #### F ES, ANEU, ADIFF, GFR, FOL, B12, CMP, MORPH, CBC, FERR ####[place] [address] Glucose [Mass/Vol] 129 mg/dL High 70-110 AH ADM SS Comment on above: Performed By: #### F ES, ANEU, ADIFF, GFR, FOL, B12, CMP, MORPH, CBC, FERR ####[place] [address] Potassium [Moles/Vol] 3.5 mmol/L Normal 3.5-5.0 AH ADM SS Comment on above: Performed By: #### F ES, ANEU, ADIFF, GFR, FOL, B12, CMP, MORPH, CBC, FERR ####[place] [address] Sodium [Moles/Vol] 137 mmol/L Normal 136-145 AH ADM SS Comment on above: Performed By: #### F ES, ANEU, ADIFF, GFR, FOL, B12, CMP, MORPH, CBC, FERR ####[place] [address] FERROrdered By: SYSTEM SYSTE M on 08-18-2024 Ferritin [Mass/Vol] 25.9 ng/mL Normal 8.0-252.0 AH AD M SS Comment on above: Performed By: #### F ES, ANEU, ADIFF, GFR, FOL, B12, CMP, MORPH, CBC, FERR ####[place] [address] FESOrdered By: SYSTEM SYSTEM on 08-18-2024 Iron [Mass/Vol] 6 ug/dL Low 50-170 AH ADM SS Comment on above: Performed By: #### F ES, ANEU, ADIFF, GFR, FOL, B12, CMP, MORPH, CBC, FERR ####[place] [address] FESon 08-18-2024 Iron Sat 2 % Normal [facility]IN Comment on above: Performed By: #### F ES, ANEU, ADIFF, GFR, FOL, B12, CMP, MORPH, CBC, FERR ####[place] [address] TIBC 277 mcg/dL Normal 250-500 [facility] Comment on above: Performed By: #### F ES, ANEU, ADIFF, GFR, FOL, B12, CMP, MORPH, CBC, FERR ####[place] [address] FOLon 08-18-2024 Folate 33.20 ng/mL High 5.38-24.00 [facility] Comment on above: Performed By: #### F ES, ANEU, ADIFF, GFR, FOL, B12, CMP, MORPH, CBC, FERR ####[place] [address] LABORATORYOrdered By: SYSTEM SYSTEM on 08-18-2024 Albumin [...] # 0.01 x10EE3/UL Normal 0.00 - 0.10 [facility] Comment on above: Performed By: #### 2 [id number] #### [facility],[address] [place] [address] Basophils/100 WBC (Bld) 0.2 % Normal 0.0 - 2.0 [facility] Comment on above: Performed By: #### 2 37128 #### [facility],[address] [place] [address] CBC + DIFF Normal [facility] Comment on above: Result Comment: CBC- COMPLETE BLOOD COUNT Performed By: #### 2 [id number] #### [facility],[address] [place] [address] EO 1.0 % Normal 0.0 - 7.0 [facility] Comment on above: Performed By: #### 2 74620 #### [facility],[address] [place] [address] EO # 0.07 x10EE3/UL Normal 0.00 - 0.50 [facility] Comment on above: Performed By: #### 2 60930 #### [facility],[address] [place], [place] [id number] Eosinophils/100 WBC (Bld) 1.2 % Normal 0.0 - 7.0 [facility] Comment on above: Performed By: #### 2 52644 #### [facility],[address] [place], [place] [id number] Erythrocyte distribution width (RBC) [Ratio] 16.0 % High 12.0 - 15.6 [facility] Comment on above: Performed By: #### 2 70241 #### [facility],[address] [place] [address] Hematocrit (Bld) [Volume fraction] 27.0 % Low 34.0 - 46.0 [facility] Comment on above: Performed By: #### 2 61704 #### [facility],[address] [place] [address] Hemoglobin (Bld) [Mass/Vol] 8.3 g/dL Low 12.0 - 16.0 [facility] Comment on above: Performed By: #### 2 78606 #### [facility],[address] [place] [address] Lymph # 1.12 x10EE3/UL Normal 0.80 - 2.80 [facility] Comment on above: Performed By: #### 2 77149 #### [facility],[address] [place] [address] Lymphocytes/100 WBC (Bld) 20.2 % Normal 20.0 - 45.0 [facility] Comment on above: Performed By: #### 2 83354 #### [facility],[address] [place] [address] Lymphocytes/100 WBC (Bld) 23 % Normal 20 - 45 [facility] Comment on above: Performed By: #### 2 33595 #### [facility],[address] [place] [address] MANUAL DIFF SEE BELOW Normal [facility] Comment on above: Performed By: #### 2 92068 #### [facility],[address] [place] [address] MCH (RBC) [Entitic mass] 22 pg Low 27 - 33 [facility] Comment on above: Performed By: #### 2 88517 #### [facility],[address] [place] [address] MCHC 31 X10 3 Low 32 - 36 [facility] Comment on above: Performed By: #### 2 91329 #### [facility],[address] [place], [place] [phone] MCV (RBC) [Entitic vol] 72 fL Low 80 - 99 [facility] Comment on above: Performed By: #### 2 14146 #### [facility],[address] [place] [address] [place] # 0.33 x10EE3/UL Normal 0.20 - 1.00 [facility] Comment on above: Performed By: #### 2 88592 #### [facility],[address] [place] [address] MONOS 2 % Normal 0 - 10 [facility] Comment on above: Performed By: #### 2 [id number] #### [facility],[address] [place] [id number] MONOS % 6.0 % Normal 0.0 - 10.0 [facility] Comment on above: Performed By: #### 2 [id number] #### [facility],[address] [place] [id number] Morphology Alessandro (Bld) [Interp] REVIEWED Normal [facility] Comment on above: Performed By: #### 2 [id number] #### [facility],[address] [place] [address] Neut # 4.00 x10EE3/UL Normal 1.50 - 7.10 [facility] Comment on above: Performed By: #### 2 [id number] #### [facility],[address] [place] [id number] Neutrophils/100 WBC (Bld) 72.4 % Normal 46.0 - 76.0 [facility] Comment on above: Performed By: #### 2 [id number] #### [facility],[address] [place] [address] PLATELET 367 x10EE3/UL Normal 150 - 450 [facility] Comment on above: Performed By: #### 2 [id number] #### [facility],[address] [place] [address] [id number] Platelet mean volume (Bld) [Entitic vol] 8.4 fL Normal 6.6 - 10.5 [facility] Comment on above: Result Comment: AUTO MATED DIFFERENTIAL Performed By: #### 2 [id number] #### [facility],[address] [place] [address] [id number] RBC 3.73 x 10EE6/UL Low 4.10 - 5.30 [facility] Comment on above: Performed By: #### 2 [id number] #### [facility],[address] [place] [address] SEGS 74 % Normal 46 - 76 [facility] Comment on above: Performed By: #### 2 [id number] #### [facility],[address] [place] [address] 27750 WBC 5.5 x 10EE3/UL Normal 4.5 - 10.8 [facility] Comment on above: Performed By: #### 2 [id number] #### [facility],[address] [place] [address] 65261 HIP BILAT 2+ VIEWS W/AP PELV Gianna 08-13-2024 HIP BILAT 2+ VIEWS W/AP PELVIS [place] [id number] Patient: CLARISSE PEGUERO Phone#: : [phone] Age: 44 Gender: F Pt. Type: Out Account: [id number] Location: [facility] Ordering: KB GALAN Exam Date: 08/13/2024/15:42 Family Phys: Charge Code: 744159 Physician: Bandera Order #: [id number] Dose#: PROCEDURE: X-RAY HIP BILAT MIN 2 VIEWS W/AP PELVIS COMPARISON: None. INDICATIONS: Bilateral hip pain. FINDINGS: BONES: Normal. No significant arthropathy or acute abnormality. SOFT TISSUES: Negative. No visible soft tissue swelling. EFFUSION: None visible. OTHER: Negative. CONCLUSION: No acute disease. Dictated by: Inés Hurt MD on 08/13/2024 at 17:19 Approved by: Inés Hurt MD on 08/13/2024 at 17:20 Normal [facility] MR LIVER WITH EOVIST CONTRAS Ton [...] bile duct (Multi) COMPARISON: None. ACCESSION NUMBER(S): [id number] ORDERING CLINICIAN: JUSTICE PEREA TECHNIQUE: MRI LIVER; [...] fatty infi (more content not included)... Normal [facility] LABORATORYOrdered By: Isabella Ghotra on 07-23-2024 Beta HCG ( test) Ql (U) Negative (07/23/24 12:02 PM) [facility] Work Phone: XR FLUORO VENOUS ACCESS OLAF CEon 07-23-2024 XR FLUORO VENOUS ACCESS DEVICE Normal [facility] .Auto Diffon 2024 Basophil, Absolute 0.0 10 3/mcL Normal 0.0-0.3 [facility] Comment on above: Performed By: #### H EPAC, ADIFF, CBC, GFR, ANEU, CMP, CEA ####[address] [address] Basophils/100 WBC (Bld) 0.5 % Normal 0.0-2.5 [facility] MAIN Comment on above: Performed By: #### H EPAC, ADIFF, CBC, GFR, ANEU, CMP, CEA ####[address] [address] Eosinophil, Absolute 0.0 10 3/mcL Normal 0.0-0.7 [facility] Comment on above: Performed By: #### H EPAC, ADIFF, CBC, GFR, ANEU, CMP, CEA ####[address] [address] Eosinophils/100 WBC (Bld) 0.3 % Normal 0.0-6.0 [facility] Comment on above: Performed By: #### H EPAC, ADIFF, CBC, GFR, ANEU, CMP, CEA ####[address] [address] Lymphocyte, Absolute 1.0 10 3/mcL Normal 0.9-4.3 [facility] Comment on above: Performed By: #### H EPAC, ADIFF, CBC, GFR, ANEU, CMP, CEA ####[address] [address] Lymphocytes/100 WBC (Bld) 22.1 % Normal 20.0-40.0 [facility] Comment on above: Performed By: #### H EPAC, ADIFF, CBC, GFR, ANEU, CMP, CEA ####[address] [address] Monocyte, Absolute 0.4 10 3/mcL Normal 0.1-1.4 [facility] Comment on above: Performed By: #### H EPAC, ADIFF, CBC, GFR, ANEU, CMP, CEA ####[address] [address] Monocytes/100 WBC (Bld) 9.5 % Normal 2.0-13.0 [facility] Comment on above: Performed By: #### H EPAC, ADIFF, CBC, GFR, ANEU, CMP, CEA ####[place] [address] [place] [address] Neutrophils/100 WBC (Bld) 67.6 % Normal 50.0-75.0 [facility] Comment on above: Performed By: #### H EPAC, ADIFF, CBC, GFR, ANEU, CMP, CEA ####[address] [address] .GFRon 2024 GFR >60 Normal [facility] MA[facility] Comment on above: Result Comment: GFR [...] EPAC, ADIFF, CBC, GFR, ANEU, CMP, CEA ####[address] [address] GFR Non- >60 [facility] MAIN Comment on above: Result Comment: GFR [...] CBC, GFR, ANEU, CMP, CEA ####[place] [address] .NEUABSon 2024 Neutrophil, Absolute 3.1 10 3/mcL Normal 2.3-8.1 [facility] Comment on above: Performed By: #### H EPAC, ADIFF, CBC, GFR, ANEU, CMP, CEA ####[place] [address] CBCon 2024 Erythrocyte distribution width (RBC) [Ratio] 15.2 % Normal 11.5-15.5 [facility] Comment on above: Performed By: #### H EPAC, ADIFF, CBC, GFR, ANEU, CMP, CEA ####[place] [address] Hematocrit (Bld) [Volume fraction] 34.1 % Normal 34.0-46.0 [facility] Comment on above: Performed By: #### H EPAC, ADIFF, CBC, GFR, ANEU, CMP, CEA ####[place] [address] Hgb 10.7 G/dL Low 12.0-16.0 [facility] Comment on above: Performed By: #### H EPAC, ADIFF, CBC, GFR, ANEU, CMP, CEA ####[place] [address] MCH (RBC) [Entitic mass] 23.6 pg Low 27.0-33.0 [facility] Comment on above: Performed By: #### H EPAC, ADIFF, CBC, GFR, ANEU, CMP, CEA ####[place] [address] MCHC 31.3 G/dL Low 32.0-36.0 [facility] Comment on above: Performed By: #### H EPAC, ADIFF, CBC, GFR, ANEU, CMP, CEA ####[place] [address] MCV (RBC) [Entitic vol] 75.6 fL Low 80.0-99.0 [facility] Comment on above: Performed By: #### H EPAC, ADIFF, CBC, GFR, ANEU, CMP, CEA ####[place] [address] Platelet 319 10 3/mcL Normal 150-450 [facility] MA[facility] Comment on above: Performed By: #### H EPAC, ADIFF, CBC, GFR, ANEU, CMP, CEA ####[place] [address] Platelet mean volume (Bld) [Entitic vol] 9.0 fL Normal 6.6-10.5 [facility] Comment on above: Performed By: #### H EPAC, ADIFF, CBC, GFR, ANEU, CMP, CEA ####[place] [address] RBC 4.51 10 6/mcL Normal 4.10-5.30 [facility] Comment on above: Performed By: #### H EPAC, ADIFF, CBC, GFR, ANEU, CMP, CEA ####[place] [address] WBC 4.6 10 3/mcL Normal 4.5-10.8 [facility] Comment on above: Performed By: #### H EPAC, ADIFF, CBC, GFR, ANEU, CMP, CEA ####[place] [address] CEAon 2024 CEA 285.4 ng/mL High 0.0-3.0 [facility] Comment on above: Result Comment: CEA Reference Range for SMOKERS: 0.0 - 5.0 ng/mL.Testing performed on the STYLIGHT analyzer usingdirect chemiluminesent technology. Patient resultsdetermined by assays using different manufacturers for methods may not be comparable. Performed By: #### H EPAC, ADIFF, CBC, GFR, ANEU, CMP, CEA ####[place] [address] CMPon 2024 Albumin Level 3.5 G/dL Normal 3.2-4.8 [facility] Comment on above: Performed By: #### H EPAC, ADIFF, CBC, GFR, ANEU, CMP, CEA ####[place] [address] Albumin/Globulin [Mass ratio] 0.8 {ratio} Low 0.9-1.6 [facility] Comment on above: Performed By: #### H EPAC, ADIFF, CBC, GFR, ANEU, CMP, CEA ####[place] [address] ALP [Catalytic activity/Vol] 97 U/L Normal 38-126 [facility] Comment on above: Performed By: #### H EPAC, ADIFF, CBC, GFR, ANEU, CMP, CEA ####[place] [address] ALT [Catalytic activity/Vol] 19 U/L Normal 10-49 [facility] Comment on above: Performed By: #### H EPAC, ADIFF, CBC, GFR, ANEU, CMP, CEA ####[place] [address] AST [Catalytic activity/Vol] 22 U/L Normal 8-34 [facility] Comment on above: Performed By: #### H EPAC, ADIFF, CBC, GFR, ANEU, CMP, CEA ####[place] [address] Bili Total 1.10 mg/dL Normal 0.20-1.20 [facility] Comment on above: Result Comment: Use of this assay is not recommended for patients undergoing treatment with eltrombopag due to the potential for falsely elevated results. Performed By: #### H EPAC, ADIFF, CBC, GFR, ANEU, CMP, CEA ####[place] [address] BUN/Creatinine Ratio 14.1 ratio Normal 10.0-22.0 [facility] Comment on above: Performed By: #### H EPAC, ADIFF, CBC, GFR, ANEU, CMP, CEA ####[place] [address] Calcium [Mass/Vol] 9.4 mg/dL Normal 8.7-10.4 [facility] Comment on above: Performed By: #### H EPAC, ADIFF, CBC, GFR, ANEU, CMP, CEA ####[place] [id number] Chloride [Moles/Vol] 104 mmol/L Normal 98-110 [facility] Comment on above: Performed By: #### H EPAC, ADIFF, CBC, GFR, ANEU, CMP, CEA ####[address] [address] CO2 [Moles/Vol] 29 mmol/L Normal 22-32 [facility] Comment on above: Performed By: #### H EPAC, ADIFF, CBC, GFR, ANEU, CMP, CEA ####[place] [id number] Creatinine [Mass/Vol] 0.64 mg/dL Normal 0.50-1.20 [facility] Comment on above: Result Comment: Test ing performed on Actionsoft analyzer using enzymatic creatinine methodology. Performed By: #### H EPAC, ADIFF, CBC, GFR, ANEU, CMP, CEA ####[place] [address] Electrolyte Balance 6.0 mEq/L Normal 4.0-15.0 [facility] Comment on above: Performed By: #### H EPAC, ADIFF, CBC, GFR, ANEU, CMP, CEA ####[place] [address] Globulin 4.5 G/dL High 1.5-3.8 [facility] Comment on above: Performed By: #### H EPAC, ADIFF, CBC, GFR, ANEU, CMP, CEA ####[place] [id number] Glucose [Mass/Vol] 107 mg/dL Normal 70-110 [facility] Comment on above: Performed By: #### H EPAC, ADIFF, CBC, GFR, ANEU, CMP, CEA ####[place] [id number] Potassium [Moles/Vol] 3.5 mmol/L Normal 3.5-5.0 [facility] Comment on above: Performed By: #### H EPAC, ADIFF, CBC, GFR, ANEU, CMP, CEA ####[place] [address] Sodium [Moles/Vol] 139 mmol/L Normal 136-145 [facility] Comment on above: Performed By: #### H EPAC, ADIFF, CBC, GFR, ANEU, CMP, CEA ####[place] [address] Total Protein 8.0 G/dL Normal 5.7-8.2 [facility] Comment on above: Performed By: #### H EPAC, ADIFF, CBC, GFR, ANEU, CMP, CEA ####[place] [address] Urea nitrogen [Mass/Vol] 9.0 mg/dL Normal 8.0-22.0 [facility] Comment on above: Performed By: #### H EPAC, ADIFF, CBC, GFR, ANEU, CMP, CEA ####[place] [address] HEPACon 2024 Hep A IgM Ab Non-Reactive Normal [facility] Comment on above: Performed By: #### H EPAC, ADIFF, CBC, GFR, ANEU, CMP, CEA ####[place] [address] Hep A IgM Ab Int Normal [facility] MA[facility] Comment on above: Result Comment: No s erological evidence of a current Hepatitis A infection.See Interp Performed By: #### H EPAC, ADIFF, CBC, GFR, ANEU, CMP, CEA ####[place] [address] Hep B Core IgM Ab Non-Reactive Normal Non-Reacti [facility] MAIN Comment on above: Performed By: #### H EPAC, ADIFF, CBC, GFR, ANEU, CMP, CEA ####[place] [address] Hep B Core IgM Ab Int Normal [facility] MAIN Comment on above: Result Comment: Samp les with a value < 0.80 Index are considered nonreactive (negative) for IgM antibodies to hepatitis B core antigen.See Interp Performed By: #### H EPAC, ADIFF, CBC, GFR, ANEU, CMP, CEA ####[facility] [place] [address] Hep B Surf Ag Non-Reactive Normal Non-Reacti [facility] MAIN Comment on above: Performed By: #### H EPAC, ADIFF, CBC, GFR, ANEU, CMP, CEA ####[facility] [place] [address] Hep C Ab Non-Reactive Normal Non-Reacti [facility] MAIN Comment on above: Performed By: #### H EPAC, ADIFF, CBC, GFR, ANEU, CMP, CEA ####[facility] [place] [address] Hep C Ab Int [facility] MAIN Comment on above: Result Comment: Nonr [...] EPAC, ADIFF, CBC, GFR, ANEU, CMP, CEA ####[facility] [place] [address] LABORATORYOrdered By: SYSTEM SYSTEM on 2024 Albumin [...] - 5.0 ng/mL. Testing performed on the FiberLight IM analyzer using direct chemiluminesent technology. Patient results determined by assays using different manufacturers for methods may not be comparable. Chloride [Moles/Vol] 104 mmol/L Normal 98 - 11 0 mEq/L ADM SS CO2 [Moles/Vol] 29 mmol/L Normal 22 - 32 mEq/L ADM SS Creatinine [Mass/Vol] 0.64 mg/dL Normal 0.50 - 1.20 mg/dL ADM SS Comment on above: Interpretive Data: T esting performed on FiberLight CH analyzer using enzymatic creatinine methodology. Electrolyte [...] larry 07-17-2024 Final Surgical Pathology Report Normal [facility] IR BIOPSY LIVERon 07-17-2024 IR BIOPSY LIVER Normal [facility] .Auto Diffon 07-16-2024 Basophil, Absolute 0.0 10 3/mcL Normal 0.0-0.3 [facility] Comment on above: Performed By: #### C BC, GFR, ADIFF, PRO, CRE, ANEU ####[address] [address] Basophils/100 WBC (Bld) 0.4 % Normal 0.0-2.5 [facility] MAIN Comment on above: Performed By: #### C BC, GFR, ADIFF, PRO, CRE, ANEU ####[address] [address] Eosinophil, Absolute 0.1 10 3/mcL Normal 0.0-0.7 [facility] MAIN Comment on above: Performed By: #### C BC, GFR, ADIFF, PRO, CRE, ANEU ####[address] [address] Eosinophils/100 WBC (Bld) 1.6 % Normal 0.0-6.0 [facility] Comment on above: Performed By: #### C BC, GFR, ADIFF, PRO, CRE, ANEU ####[address] [address] Lymphocyte, Absolute 1.5 10 3/mcL Normal 0.9-4.3 [facility]IN Comment on above: Performed By: #### C BC, GFR, ADIFF, PRO, CRE, ANEU ####[address] [address] Lymphocytes/100 WBC (Bld) 30.2 % Normal 20.0-40.0 [facility] Comment on above: Performed By: #### C BC, GFR, ADIFF, PRO, CRE, ANEU ####[place] [address] [place] [address] Monocyte, Absolute 0.3 10 3/mcL Normal 0.1-1.4 [facility] MA[facility] Comment on above: Performed By: #### C BC, GFR, ADIFF, PRO, CRE, ANEU ####[address] [address] Monocytes/100 WBC (Bld) 5.9 % Normal 2.0-13.0 [facility] MA[facility] Comment on above: Performed By: #### C BC, GFR, ADIFF, PRO, CRE, ANEU ####[address] [address] Neutrophils/100 WBC (Bld) 61.9 % Normal 50.0-75.0 [facility] MA[facility] Comment on above: Performed By: #### C BC, GFR, ADIFF, PRO, CRE, ANEU ####[place] [id number] .GFRon 07-16-2024 GFR >60 Normal [facility] MAIN Comment on above: Result Comment: GFR [...] C BC, GFR, ADIFF, PRO, CRE, ANEU ####[address] [address] GFR Non- >60 Normal [facility] MAIN Comment on above: Result Comment: GFR [...] GFR, ADIFF, PRO, CRE, ANEU ####[place] [address] .NEUABSon 07-16-2024 Neutrophil, Absolute 3.0 10 3/mcL Normal 2.3-8.1 [facility] MAIN Comment on above: Performed By: #### C BC, GFR, ADIFF, PRO, CRE, ANEU ####[place] [address] CBCon 07-16-2024 Erythrocyte distribution width (RBC) [Ratio] 15.5 % Normal 11.5-15.5 [facility] MAIN Comment on above: Performed By: #### C BC, GFR, ADIFF, PRO, CRE, ANEU ####[place] [address] Hematocrit (Bld) [Volume fraction] 31.8 % Low 34.0-46.0 [facility] MAIN Comment on above: Performed By: #### C BC, GFR, ADIFF, PRO, CRE, ANEU ####[place] [address] Hgb 10.1 G/dL Low 12.0-16.0 [facility] MAIN Comment on above: Performed By: #### C BC, GFR, ADIFF, PRO, CRE, ANEU ####[place] [address] MCH (RBC) [Entitic mass] 24.4 pg Low 27.0-33.0 [facility] MAIN Comment on above: Performed By: #### C BC, GFR, ADIFF, PRO, CRE, ANEU ####[place] [address] MCHC 31.8 G/dL Low 32.0-36.0 [facility] MAIN Comment on above: Performed By: #### C BC, GFR, ADIFF, PRO, CRE, ANEU ####[place] [address] MCV (RBC) [Entitic vol] 76.7 fL Low 80.0-99.0 [facility] MAIN Comment on above: Performed By: #### C BC, GFR, ADIFF, PRO, CRE, ANEU ####[place] [address] Platelet 329 10 3/mcL Normal 150-450 [facility] MAIN Comment on above: Performed By: #### C BC, GFR, ADIFF, PRO, CRE, ANEU ####[place] [address] Platelet mean volume (Bld) [Entitic vol] 8.6 fL Normal 6.6-10.5 [facility] MAIN Comment on above: Performed By: #### C BC, GFR, ADIFF, PRO, CRE, ANEU ####[place] [address] RBC 4.14 10 6/mcL Normal 4.10-5.30 [facility] MA[facility] Comment on above: Performed By: #### C BC, GFR, ADIFF, PRO, CRE, ANEU ####[place] [address] WBC 4.9 10 3/mcL Normal 4.5-10.8 [facility] MA[facility] Comment on above: Performed By: #### C BC, GFR, ADIFF, PRO, CRE, ANEU ####[place] [address] CREon 07-16-2024 Creatinine [Mass/Vol] 0.51 mg/dL Normal 0.50-1.20 [facility] MAIN Comment on above: Result Comment: Test ing performed on Actionsoft analyzer using enzymatic creatinine methodology. Performed By: #### C BC, GFR, ADIFF, PRO, CRE, ANEU ####[place] [address] LABORATORYOrdered By: Hamlet Cantu on 07-16-2024 Beta HCG ( test) Ql (U) Negative (07/16/24 8:35 AM) [facility] Work Phone: LABORATORYOrdered By: SYSTEM SYSTEM on 07-16-2024 Basophils (Bld) [#/Vol] 0.0 103/mcL Normal 0.0 - 0.3 10^3/mcL AH Workflow SS Basophils/100 WBC (Bld) 0.4 % Normal 0.0 - 2.5 % AH Workflow SS Creatinine [Mass/Vol] 0.51 mg/dL Normal 0.50 - 1.20 mg/dL AH ADM SS Comment on above: Interpretive Data: T esting performed on Actionsoft analyzer using enzymatic creatinine methodology. Eosinophils (Bld) [#/Vol] 0.1 103/mcL Normal 0.0 - 0.7 10^3/mcL AH Workflow SS Eosinophils/100 WBC (Bld) 1.6 % Normal 0.0 - 6.0 % AH Workflow SS Erythrocyte distribution width (RBC) [Ratio] 15.5 % Normal 11.5 - 15.5 % AH Workflow SS GFR/1.73 sq M.predicted among blacks MDRD (S/P/Bld) [Vol rate/Area] ml/min/1.73sqm Invalid Interpretation Code Sharypic Chemistry S Comment on above: Interpretive Data: [...] (S/P/Bld) [Vol rate/Area] ml/min/1.73sqm Invalid Interpretation Code Sharypic Chemistry S Comment on above: Interpretive Data: [...] International Ratio 1.1 ratio Invalid Interpretation Code HemAKub Comment on above: Interpretive Data: T char [employer] (CHEST, 1991, 102:312S-25S) [...] Coag (PPP) [Relative time] 1.1 {INR} Normal [facility] MAIN Comment on above: Result Comment: The [employer] (CHEST, 1991, 102:312S-25S)recommended therapeutic range for oral anticoagulant therapy is:LOW RISK: Prophylaxis of venous thrombosis INR: 2.0-3.0 Treatment of pulmonary embolism 2.0-3.0 Prevention of systemic embolism 2.0-3.0HIGH RISK: Mechanical prosthetic valves 2.5-3.5 Performed By: #### C BC, GFR, ADIFF, PRO, CRE, ANEU ####[place] [address] PT Coag (PPP) [Time] 12.9 s Normal 9.0-14.4 [facility] MAIN Comment on above: Result Comment: Effe ctive 01/13/08, Protime results may be affected by some antibiotics (i.e. Ciprofloxacin, Azithromycin, Bactrim) which may potentiate the action of oral anticoagulants, with further increases in Protime/INR. Performed By: #### C BC, GFR, ADIFF, PRO, CRE, ANEU ####[place] [address] CEAon 06-19-2024 CEA 212.9 ng/mL High 0.0-3.0 [facility] MAIN Comment on above: Result Comment: CEA Reference Range for SMOKERS: 0.0 - 5.0 ng/mL.Testing performed on the FiberLight IM analyzer usingdirect chemiluminesent technology. Patient resultsdetermined by assays using different manufacturers for methods may not be comparable. Performed By: #### C EA ####[facility] [place] [address] Consultation Reporton 2023 Consultation Report Normal [facility] CT CHEST/ABD/PELVIS C+on CT CHEST/ABD/PELVIS C+ [place] [address] Patient: CLARISSE PEGUERO Phone#: : 1980 Age: 43 Gender: F Pt. Type: Out Account: [id number] Location: [facility] Ordering: NOEL EASTMAN Exam Date: 06/10/2024/15:25 Family Phys: ARLENE RODRIGEZ Charge Code: 535129 Physician: Bandera Order #: [id number] Dose#: 56.8 mGy PROCEDURE: CT CHEST/ABD/PELVIS W COMPARISON: [facility], CT, ABDOMEN/PELVIS W CON, 03/08/2024, 21:10. [facility], CT, ABDOMEN/PELVIS W CON, 04/27/2024, 8:28. INDICATIONS: [...] 43 Gender: F Pt. Type: Out Account: [id number] Location: 052 Ordering: NOEL EASTMAN Exam Date: 06/10/2024/15:25 Family Phys: ARLENE RODRIGEZ Charge Code: [id number] Physician: Bandera Order #: [id number] Dose#: 56.8 mGy AORTA/VASCULAR: Normal. No aneurysm [...] Hurt MD on 06/10/2024 at 16:[address] [facility] [address] ABDOMEN/PELVIS Won 2023 CT ABDOMEN/PELVIS W [place] [address] Patient: CLARISSE PEGUERO Phone#: : 1980 Age: 43 Gender: F Pt. Type: Out Account: [id number] Location: [facility] Ordering: ARLENE RODRIGEZ Exam Date: 04/27/2024/8:28 Family Phys: ABDULKADIR ROSALES Charge Code: [id number] Physician: Bandera Order #: [id number] Dose#: 40.6 PROCEDURE: CT ABDOMEN/PELVIS WITH CONTRAST COMPARISON: [facility], CT, ABDOMEN/PELVIS W CON, 03/08/2024, 21:10. INDICATIONS: [...] 43 Gender: F Pt. Type: Out Account: [id number] Location: 052 Ordering: ARLENE RODRIGEZ Exam Date: 04/27/2024/8:28 Family Phys: ABDULKADIR ROSALES Charge Code: [id number] Physician: Bandera Order #: [id number] Dose#: 40.6 LUNG BASES: Normal. No visible [...] Hurt MD on 04/27/2024 at 14:56 Normal [facility] KIDNEY 04-09-2024 [place] [address] Patient: CLARISSE PEGUERO Phone#: : 1980 Age: 43 Gender: F Pt. Type: Out Account: [id number] Location: 052 Ordering: ROSA LOVE Exam Date: 04/09/2024/8:09 Family Phys: Charge Code: 758703 Physician: Bandera Order #: [id number] Dose#: PROCEDURE: KIDNEY ULTRASOUND COMPARISON: None. INDICATIONS: [...] Hurt MD on 04/09/2024 at 13:12 Normal [facility] LABORATORYOrdered By: SYSTEM SYSTEM on 04-02-2024 [...] above: Interpretive Data: T esting performed on Actionsoft analyzer using enzymatic creatinine methodology. Electrolyte Balance [...] (S/P/Bld) [Vol rate/Area] ml/min/1.73sqm Invalid Interpretation Code Sharypic Chemistry S Comment on above: Interpretive Data: [...] (S/P/Bld) [Vol rate/Area] ml/min/1.73sqm Invalid Interpretation Code Sharypic Chemistry S Comment on above: Interpretive Data: [...] Glucose Testing Reason Routine (03/16/24 11:57 AM) [facility] Work Phone: Glucose [Mass/Vol] 87 mg/dL Normal 70 - 110 mg/dL [facility] Work Phone: LABORATORYOrdered By: SYSTEM SYSTEM on [...] above: Interpretive Data: T esting performed on Actionsoft analyzer using enzymatic creatinine methodology. Electrolyte Balance [...] (S/P/Bld) [Vol rate/Area] ml/min/1.73sqm Invalid Interpretation Code Sharypic Chemistry S Comment on above: Interpretive Data: [...] (S/P/Bld) [Vol rate/Area] ml/min/1.73sqm Invalid Interpretation Code Sharypic Chemistry S Comment on above: Interpretive Data: [...] Glucose Testing Reason Routine (03/16/24 8:04 AM) [facility] Work Phone: Glucose [Mass/Vol] 119 mg/dL High 70 - 110 mg/dL [facility] Work Phone: LABORATORYOrdered By: Gabe Acevedo on 03-15-2024 Blood Glucose Testing Reason Routine (03/15/24 10:21 PM) [facility] Work Phone: Glucose [Mass/Vol] 155 mg/dL High 70 - 110 mg/dL [facility] Work Phone: LABORATORYOrdered By: SYSTEM SYSTEM on [...] above: Interpretive Data: T esting performed on Actionsoft analyzer using enzymatic creatinine methodology. Electrolyte Balance [...] (S/P/Bld) [Vol rate/Area] ml/min/1.73sqm Invalid Interpretation Code Sharypic Chemistry S Comment on above: Interpretive Data: [...] above: Interpretive Data: T esting performed on Actionsoft analyzer using enzymatic creatinine methodology. Electrolyte Balance [...] management. Please contact Microbiology with any questions ([phone]). Moderate Streptococcus anginosus Unable to perform sensitivity testing due to the fastidious nature of the organism. [facility] Work Phone: Gentamicin MARIA DEL ROSARIO [Susc]on 03-01 Clostridium sporogenes/Clostridium botulinum group 1 Clostridium sporogenes/Clostridium botulinum group 1 [facility] Work Phone: Escherichia coli Escherichia coli [facility] Work Phone: GS Unsedimented 4+ Polymorphonuclear cells 2+ Mononuclear cells 4+ Gram Positive Cocci 2+ Gram Positive Rods 1+ Gram Negative Rods [facility] Work Phone: Klebsiella oxytoca Raoultella ornithinolytica Klebsiella oxytoca Raoultella ornithinolytica [facility] Work Phone: LABORATORYOrdered By: SYSTEM SYSTEM on [...] Comment on above: Result Comment: Note s 44633 Clostridium difficile PCR Int No tcdB gene [...] - Microbiology an d Antimicrobial susceptibilityOrdered By: [facility] MICROBIOLOGY on 03-10-2024 Bacteria identified Cx Nom (Bld) Culture has been received in lab and is no growth to date. Culture will be held for four weeks. [facility] No Panel Informationon 03-10 Microscopic examination of blood, culture Blood Culture: No Growth at 5 days. [facility] Work Phone: LABORATORYOrdered By: SYSTEM SYSTEM on 03-09-2024 Ferritin [Mass/Vol] 46.5 ng/mL Normal 8.0 - 252.0 ng/mL [facility] Iron [Mass/Vol] 7 ug/dL Low 50 - 170 mcg/dL [facility] Iron binding capacity [Mass/Vol] 250 mcg/dL Normal 250 - 500 mcg/dL [facility] Iron saturation [Mass fraction] 3 % Invalid Interpretation Code [facility] aPTT Coag (Bld) [Time] 30.2 s Normal 25.0 - 35.0 seconds [facility] Comment on above: Interpretive Data: F or Heparin anticoagulation therapy, the recommended therapeutic range is: 54-77 seconds (APTT Correlation with Anti-Xa therapeutic range of 0.3-0.7 units/ml). PLEASE REFERENCE THE PHARMACY PROTOCOL FOR DOSING. aPTT Coag (Bld) [Time] 26.8 s Normal 25.0 - 35.0 seconds [facility] Comment on above: Interpretive Data: F or Heparin anticoagulation therapy, the recommended therapeutic range is: 54-77 seconds (APTT Correlation with Anti-Xa therapeutic range of 0.3-0.7 units/ml). PLEASE REFERENCE THE PHARMACY PROTOCOL FOR DOSING. Lactate [Moles/Vol] 1.5 mmol/L Normal 0.5 - 2. 2 mmol/L [facility] Magnesium [Mass/Vol] 1.9 mg/dL Normal 1.6 - 2 .4 mg/dL [facility] PT Coag (PPP) [Time] 19.9 s High 9.0 - 1 4.4 seconds [facility] Comment on above: Interpretive Data: E ffective 01/13/08, Protime results may be affected by some antibiotics (i.e. Ciprofloxacin, Azithromycin, Bactrim) which may potentiate the action of oral anticoagulants, with further increases in Protime/INR. PT International Ratio 1.7 ratio Invalid Interpretation Code [facility] Comment on above: Interpretive Data: Pam he [employer] (CHEST, 1992, 102:312S-25S) [...] ng/L Male: 0-54 ng/L Testing performed on STYLIGHT analyzer using direct chemiluminescent technology. LABORATORYOrdered By: Daryl Pérez on 03-09-2024 FLUAV RNA EUGENE+probe Ql (Resp) Negative 15 (03/09/24 2:48 PM) Normal Negative [facility] Comment on above: Result Comment: Note s 53431 FLUBV RNA EUGENE+probe Ql (Resp) Negative 16 (03/09/24 2:48 PM) Normal Negative [facility] Comment on above: Result Comment: Note s 14884 RSV PCR Negative 17 (03/09/24 2:48 PM) Normal Negative [facility] Comment on above: Result Comment: Note s 59869 SARS-CoV-2 (COVID-19) RNA EUGENE+probe Ql (Resp) Negative 13, 14 (03/09/24 2:48 PM) Normal Negative [facility] Comment on above: Result Comment: Note s 11410 Interpretive Data: T his test has been [...] - Microbiology an d Antimicrobial susceptibilityOrdered By: [facility] MICROBIOLOGY on 03-09-2024 Bacteria identified Cx Nom (Bld) Culture has been received in lab and is no growth to date. Culture will be held for four weeks. [facility] No Panel Informationon 03-09 Culture Urine No growth at 48 hours. [facility] Work Phone: Microscopic examination of blood, culture Blood Culture: No Growth at 5 days. [facility] Work Phone: TROPONIN I, HIGH SENSITIVITY on 03-09-2024 HS TROPONIN 182.3 pg/mL Critically high 0.0 - 51.4 [facility] Comment on above: Result Comment: { CA LLED TO IGLESIA/ER @ 0006 { READ BACK BY IGLESIA TO TRR Performed By: #### 2 02164 #### [facility],[address] [place] [address] APTTon 03-08-2024 aPTT Coag (Bld) [Time] 22.4 s Low 25.4 - 38.4 [facility] Comment on above: Performed By: #### 2 71735 #### [facility],[address] [place] [address] 90982 CBC + DIFFon 03-08-2024 ANISO 1+ Normal [facility] Comment on above: Performed By: #### 2 34862 #### [facility],[address] [place] [address] 42859 Baso # 0.01 x10EE3/UL Normal 0.00 - 0.10 [facility] Comment on above: Performed By: #### 2 10412 #### [facility],[address] [place] [address] 32469 Basophils/100 WBC (Bld) 0.3 % Normal 0.0 - 2.0 [facility] Comment on above: Performed By: #### 2 99398 #### [facility],[address] [place] [address] 12328 CBC + DIFF Normal [facility] Comment on above: Result Comment: CBC- COMPLETE BLOOD COUNT Performed By: #### 2 53849 #### [facility],[address] [place] [address] 61376 EO # 0.02 x10EE3/UL Normal 0.00 - 0.50 [facility] Comment on above: Performed By: #### 2 75082 #### [facility],[address] [place], [place] [address] Eosinophils/100 WBC (Bld) 0.4 % Normal 0.0 - 7.0 [facility] Comment on above: Performed By: #### 2 98368 #### [facility],[address] [place] [address] Erythrocyte distribution width (RBC) [Ratio] 16.6 % High 12.0 - 15.6 [facility] Comment on above: Performed By: #### 2 07904 #### [place] [address] Hematocrit (Bld) [Volume fraction] 29.9 % Low 34.0 - 46.0 [facility] Comment on above: Performed By: #### 2 02662 #### [facility],[address] [place] [address] Hemoglobin (Bld) [Mass/Vol] 9.4 g/dL Low 12.0 - 16.0 [facility] Comment on above: Performed By: #### 2 13805 #### [place] [address] HYPOCHROM 1+ Normal [facility] Comment on above: Performed By: #### 2 71807 #### [address] [address] Lymph # 0.90 x10EE3/UL Normal 0.80 - 2.80 [facility] Comment on above: Performed By: #### 2 69802 #### [place] [address] Lymphocytes/100 WBC (Bld) 15.6 % Low 20.0 - 45.0 [facility] Comment on above: Performed By: #### 2 86746 #### [facility],[address] [place] [address] 55326 Lymphocytes/100 WBC (Bld) 29 % Normal 20 - 45 [facility] Comment on above: Performed By: #### 2 48469 #### [facility],[address] [place] [address] 86382 MANUAL DIFF SEE BELOW Normal [facility] Comment on above: Performed By: #### 2 56262 #### [facility],[address] [place] [address] 04080 MCH (RBC) [Entitic mass] 22 pg Low 27 - 33 [facility] Comment on above: Performed By: #### 2 12017 #### [facility],[address] [place] [address] MCHC 32 X10 3 Normal 32 - 36 [facility] Comment on above: Performed By: #### 2 28311 #### [facility],[address] [place] [address] 27291 MCV (RBC) [Entitic vol] 70 fL Low 80 - 99 [facility] Comment on above: Performed By: #### 2 77441 #### [facility],[address] [place] [address] 56803 MICROCYTES 2+ Normal [facility] Comment on above: Performed By: #### 2 14909 #### [facility],[address] [place] [address] 17645 [place] # 0.07 x10EE3/UL Low 0.20 - 1.00 [facility] Comment on above: Performed By: #### 2 03306 #### [facility],[address] [place] [address] 12065 MONOS % 1.3 % Normal 0.0 - 10.0 [facility] Comment on above: Performed By: #### 2 66055 #### [facility],[address] [place] [address] 10266 Morphology Alessandro (Bld) [Interp] SEE BELOW Normal [facility] Comment on above: Performed By: #### 2 95434 #### [facility],[address] [place] [address] 76040 Neut # 4.79 x10EE3/UL Normal 1.50 - 7.10 [facility] Comment on above: Performed By: #### 2 58672 #### [facility],[address] [place] [address] 32271 Neutrophils/100 WBC (Bld) 82.6 % High 46.0 - 76.0 [facility] Comment on above: Performed By: #### 2 22090 #### [facility],[address] [place] [address] 77738 PLATELET 424 x10EE3/UL Normal 150 - 450 [facility] Comment on above: Performed By: #### 2 14081 #### [facility],[address] [place] [address] 28874 Platelet mean volume (Bld) [Entitic vol] 9.4 fL Normal 6.6 - 10.5 [facility] Comment on above: Result Comment: AUTO MATED DIFFERENTIAL Performed By: #### 2 21592 #### [facility],[address] [place] [address] 16210 PLT EST NORMAL Normal [facility] Comment on above: Performed By: #### 2 81546 #### [facility],[address] [place] [address] 56091 RBC 4.27 x 10EE6/UL Normal 4.10 - 5.30 [facility] Comment on above: Performed By: #### 2 71938 #### [facility],[address] [place] [address] 81001 SEGS 71 % Normal 46 - 76 [facility] Comment on above: Performed By: #### 2 29901 #### [facility],[address] [place] [address] 42836 WBC 5.8 x 10EE3/UL Normal 4.5 - 10.8 [facility] Comment on above: Performed By: #### 2 94850 #### [facility],[address] [place] [address] 91169 CHEST 1 VIEWon 03-08-2024 CHEST 1 VIEW [place] [address] Patient: CLARISSE PEGUERO Phone#: : 1980 Age: 43 Gender: F Pt. Type: ER Account: [id number] Location: [facility] Ordering: CHRIS GROVE Exam Date: 03/08/2024/18:20 Family Phys: JAMES WETZELCASIE Charge Code: 519331 Physician: Bandera Order #: [id number] Dose#: PROCEDURE: X-RAY CHEST 1 VIEW COMPARISON: [...] Hurt MD on 03/09/2024 at 9:54 Normal [facility] CMP with eGFRon 03-08-2024 AGE 43 years Normal [facility] Comment on above: Performed By: #### 2 66277 #### [facility],[address] [place] [address] 71206 Albumin [Mass/Vol] 2.8 g/dL Low 3.4 - 5.0 [facility] Comment on above: Performed By: #### 2 72165 #### [facility],[address] [place] [address] 01297 Albumin/Globulin [Mass ratio] 0.5 {ratio} Low 0.9 - 1.6 [facility] Comment on above: Performed By: #### 2 18234 #### [facility],[address] [place] [address] 59426 ALK PHOS 161 U/L High 46 - 116 [facility] Comment on above: Performed By: #### 2 86925 #### [facility],[address] [place] [address] 83678 ALT [Catalytic activity/Vol] 18 U/L Normal 16 - 63 [facility] Comment on above: Performed By: #### 2 23155 #### [facility],[address] [place] [address] 73005 Anion gap [Moles/Vol] 16 mmol/L Normal 10 - 20 [facility] Comment on above: Performed By: #### 2 54125 #### [facility],[address] [place] [address] 03084 AST [Catalytic activity/Vol] 20 U/L Normal 13 - 39 [facility] Comment on above: Performed By: #### 2 95080 #### [facility],[address] [place] [address] 45792 B/C RATIO 7 ratio Normal 0 - 30 [facility] Comment on above: Performed By: #### 2 22680 #### [facility],[address] [place] [address] 79610 Bilirubin [Mass/Vol] 1.7 mg/dL High 0.2 - 1.0 [facility] Comment on above: Performed By: #### 2 56526 #### [facility],[address] [place] [address] 00568 Calcium [Mass/Vol] 8.8 mg/dL Normal 8.5 - 10.1 [facility] Comment on above: Performed By: #### 2 35814 #### [facility],[address] [place] [address] 70451 Chloride [Moles/Vol] 98 mmol/L Normal 98 - 107 [facility] Comment on above: Performed By: #### 2 34549 #### [facility],[address] [place], [place] [address] CMP with eGFR Normal [facility] Comment on above: Result Comment: COMP REHENSIVE METABOLIC PANEL Performed By: #### 2 73924 #### [facility],[address] [place] [address] CO2 [Moles/Vol] 23.7 mmol/L Normal 21.0 - 32.0 [facility] Comment on above: Performed By: #### 2 95966 #### [facility],[address] [place] [address] Creatinine [Mass/Vol] 1.02 mg/dL Normal 0.55 - 1.02 [facility] Comment on above: Performed By: #### 2 22698 #### [facility],[address] [place] [address] eGFR 59 ML/MINUTE Low 60 - 999 [facility] Comment on above: Performed By: #### 2 41499 #### [facility],[address] [place] [address] GFR/1.73 sq M.predicted among non-blacks MDRD (S/P/Bld) [Vol rate/Area] mL/min/{1.73_m2} Normal 60 - 999 [facility] Comment on above: Result Comment: ACCO RDING TO THE NATIONAL KIDNEY DISEASE EDUCATION PROGRAM(NKDE), A NORMAL eGFR IS A VALUE GREATER THAN OR EQUAL TO 60 ML/MIN/1.73 SQ METERS. CHRONIC KIDNEY DISEASE: <60mL/MIN/1.73 SQ METERS KIDNEY FAILURE: <15mL/MIN/1.73 SQ METERS THIS TEST SHOULD ONLY BE USED FOR PATIENTS 18 YEARS OF AGE AND OLDER. Performed By: #### 2 71701 #### [facility],[address] [place], [place] [address] Globulin (S) [Mass/Vol] 5.4 g/dL High 1.5 - 3.8 [facility] Comment on above: Performed By: #### 2 74822 #### [facility],[address] [place] [address] 10101 Glucose [Mass/Vol] 97 mg/dL Normal 74 - 106 [facility] Comment on above: Performed By: #### 2 16455 #### [facility],[address] [place] [address] 47973 Potassium [Moles/Vol] 3.1 mmol/L Low 3.5 - 5.1 [facility] Comment on above: Performed By: #### 2 71308 #### [facility],[address] [place] [address] 42532 Protein [Mass/Vol] 8.2 g/dL Normal 6.4 - 8.2 [facility] Comment on above: Performed By: #### 2 06631 #### [facility],[address] [place] [address] 82332 Sodium [Moles/Vol] 135 mmol/L Low 136 - 145 [facility] Comment on above: Performed By: #### 2 88499 #### [facility],[address] [place] [address] 29823 Urea nitrogen [Mass/Vol] 7 mg/dL Normal 7 - 18 [facility] Comment on above: Performed By: #### 2 66990 #### [facility],[address] [place] [address] 15760 CORONAVIRUS (SARS) ANTIGEN T ESTon 03-08-2024 EXTERNAL QC DONE? YES Normal [facility] Comment on above: Performed By: #### 2 77212 #### [facility],[address] [place] [address] 27951 INTERNAL CONTROL PASS Normal [facility] Comment on above: Performed By: #### 2 04355 #### [facility],[address] [place] [address] 52152 SARS ANTIGEN Negative Normal NORMAL: NEGATIVE [facility] Comment on above: Performed By: #### 2 20983 #### [facility],[address] [place] [address] SEND TO ? NO Normal [facility] Comment on above: Result Comment: SARS -CoV-2 THIS TEST IS BEING USED UNDER THE FDA EUA PROCEDURE. THIS ASSAY HAS BEEN VALIDATED AT [facility] FOR USE WITH NASAL AND NASOPHARYNGEAL [...] PUBLIC HEALTH AUTHORITIES. Performed By: #### 2 84608 #### [facility],[address] [place], [place] [address] CT ABDOMEN/PELVIS [facility] 2023 CT ABDOMEN/PELVIS [address] [address] Patient: CLARISSE PEGUERO Phone#: : 1980 Age: 43 Gender: F Pt. Type: ER Account: [id number] Location: [facility] Ordering: ABDIRAHMAN VICENTE Exam Date: 03/08/2024/21:10 Family Phys: JAMES WILCOX Charge Code: [id number] Physician: Bandera Order #: [id number] Dose#: 39.4 PROCEDURE: CT ABDOMEN/PELVIS WITH CONTRAST [...] 43 Gender: F Pt. Type: ER Account: [id number] Location: 052 Ordering: ABDIRAHMAN VICENTE Exam Date: 03/08/2024/21:10 Family Phys: JAMES WILCOX Charge Code: 107115 Physician: Bandera Order #: [id number] Dose#: 39.4 CONCLUSION: 1. Findings consistent with pelvic abscess, likely related to diverticular rupture. 2. Hypodense focus in the right hepatic lobe is too small to characterize with certainty. Dictated by: Inés Hurt MD on 03/09/2024 at 9:11 Approved by: Inés Hurt MD on 03/09/2024 at 9:16 [facility] CULTURE BLOOD [WARREN]on Microscopic examination of blood, culture CULTURE BLOOD [WARREN] _[facility] FOR SCANNED REPORT 03/16/24.1027.DNP.COMPLE TE [facility] Comment on above: Performed By: #### 2 92345 #### [facility],[address] [place] [address] Microscopic examination of blood, culture CULTURE BLOOD [WARREN] _BLOOD CULTURE_ [facility] FOR SCANNED REPORT 03/13/24.1311.DNP.COMPLE TE [facility] Comment on above: Performed By: #### 2 53471 #### [facility],[address] [place], [place] [address] INFLUENZA VIRUS RAPID A/Bon 03-08-2024 INFLUENZA VIRUS [...] TO THREE DAYS. RESULT CRITICAL? NO Normal [facility] Comment on above: Performed By: #### 2 85978 #### [facility],[address] [place] [address] 33472 LACTATEon 03-08-2024 Lactate [Moles/Vol] 1.4 mmol/L Normal 0.4 - 2.0 [facility] Comment on above: Performed By: #### 2 58630 #### [facility],[address] [place] [address] 76426 Lactate [Moles/Vol] 3.6 mmol/L High 0.4 - 2.0 [facility] Comment on above: Result Comment: LACT ATE 3 HR NOTIFIED TO: _COURT/ER_@_1910 03/08/24.TR . . . LACTATE 3 HR NOTIFIED BY: _TRR 03/08/24.TR . . . Performed By: #### 2 57244 #### [facility],[address] [place] [address] 90326 PROTHROMBIN TIME AND INRon 0 03-08-2024 INR Coag (PPP) [Relative time] 1.9 {INR} High 0.8 - 1.2 [facility] Comment on above: Result Comment: T [...] MECHANICAL HEART VALVES Performed By: #### 2 71098 #### [facility],[address] [place] [address] 07104 PROTHROMBIN TIME AND INR Normal [facility] Comment on above: Result Comment: PROT HROMBIN TIME AND INR Performed By: #### 2 73032 #### [facility],[address] [place], [place] [address] PT-COUMADIN 19.3 sec High 9.3 - 14.1 [facility] Comment on above: Performed By: #### 2 64555 #### [facility],[address] [place], [place] [address] TROPONIN I, HIGH SENSITIVITY on 03-08-2024 HS TROPONIN 230.4 pg/mL Critically high 0.0 - 51.4 [facility] Comment on above: Result Comment: { CA LLED TO DAVID/ER @ 2202 { READ BACK BY DAVID TO TRR Performed By: #### 2 00042 #### [facility],[address] [place], [place] [address] HS TROPONIN 32.0 pg/mL Normal 0.0 - 51.4 [facility] Comment on above: Performed By: #### 2 48877 #### [facility],[address] [place] [address] 95141 URINALYSISon 03-08-2024 Amorphous NONE Normal [facility] Comment on above: Performed By: #### 2 12271 #### [facility],[address] [place] [address] 04312 Bacteria 2+ Normal [facility] Comment on above: Performed By: #### 2 99741 #### [facility],[address] [place] [address] 73677 Bilirubin Ql (U) Negative Normal NORMAL: NEGATIVE [facility] Comment on above: Performed By: #### 2 77506 #### [facility],[address] [place] [address] 42014 Casts NONE Normal [facility] Comment on above: Performed By: #### 2 46064 #### [facility],[address] [place], [place] [address] Clarity (U) very cloudy Normal NORMAL: CLEAR [facility] Comment on above: Performed By: #### 2 84218 #### [facility],[address] [place] [address] 34069 Color (U) brown Normal NORMAL: YELLOW [facility] Comment on above: Performed By: #### 2 99022 #### [facility],[address] [place] [address] 43446 Crystals LM Nom (Urine sed) NONE Normal [facility] Comment on above: Performed By: #### 2 03622 #### [facility],[address] [place] [address] 08588 Epi Cells MODERATE Normal [facility] Comment on above: Performed By: #### 2 67914 #### [facility],[address] [place] [address] 23256 Glucose Ql (U) NORM Normal NORMAL: NORMAL [facility] Comment on above: Performed By: #### 2 77087 #### [facility],[address] [place] [address] 09593 Hemoglobin Ql (U) 150 Abnormal NORMAL: NEGATIVE [facility] Comment on above: Performed By: #### 2 42659 #### [facility],[address] [place] [address] 58126 Ketone Negative Normal NORMAL: NEGATIVE [facility] Comment on above: Performed By: #### 2 29801 #### [facility],[address] [place] [address] 52286 Leukocytes 500 Abnormal NORMAL: NEGATIVE [facility] Comment on above: Performed By: #### 2 04355 #### [facility],[address] [place] [address] 88970 Mucous NONE Normal [facility] Comment on above: Performed By: #### 2 15505 #### [facility],[address] [place] [address] 92878 Nitrite Ql (U) Negative Normal NORMAL: NEGATIVE [facility] Comment on above: Performed By: #### 2 28661 #### [facility],[address] [place] [address] pH (U) 6 [pH] Normal NORMAL: 5.0-8.0 [facility] Comment on above: Performed By: #### 2 95913 #### [facility],[address] [place] [address] Protein Ql (U) 100 Abnormal NORMAL: NEGATIVE [facility] Comment on above: Performed By: #### 2 40612 #### [facility],[address] [place] [address] Rbc 5-10 Normal 0-3/hpf [facility] Comment on above: Performed By: #### 2 00448 #### [facility],[address] [place] [address] Sp Cushman 1.010 Normal NORMAL: 1.010-1.03 0 [facility] Comment on above: Performed By: #### 2 34089 #### [facility],[address] [place] [address] Specimen Type Clean catch Normal [facility] Comment on above: Performed By: #### 2 35401 #### [facility],[address] [place] [address] Urinalysis dipstick W Reflex Microscopic panel (U) SEE BELOW Normal [facility] Comment on above: Result Comment: MICR OSCOPIC Performed By: #### 2 57077 #### [facility],[address] [place] [address] Urobilinog 8 Abnormal NORMAL: NORMAL [facility] Comment on above: Performed By: #### 2 43779 #### [facility],[address] [place] [address] Wbc 16-25 Normal 0-5/hpf [facility] Comment on above: Performed By: #### 2 82387 #### [facility],[address] [place] [address] Yeast NONE Normal [facility] Comment on above: Performed By: #### 2 68411 #### [facility],[address] [place] [address] 78094 URINE CULTURE [CCL]on 2023 Bacteria identified Cx Nom (U) URCUL See Results Below See Below CULTURE, URINE MIXED MICROBIOTA 10,000 -<50,000 CFU/ml Mixed microbiota No further workup. Mixed microbiota can be due to???urine???contaminati on with s SOURCE: Urine (Nonspecific) [facility] [address] [place] [address] Raheel Nguyen III, M.D. [id number] Normal [facility] Comment on above: Performed By: #### 2 16866 #### [facility],[address] [place], [place] [address] 3D MAMM UNILAT LT DIAGNOSTIC on 02-27-2024 3D MAMM UNILAT LT DIAGNOSTIC [place] [address] Patient: CLARISSE PEGUERO Phone#: : 1980 Age: 43 Gender: F Pt. Type: Out Account: [id number] Location: Ordering: KAREN RICE Exam Date: 02/27/2024/9:53 Family Phys: Charge Code: 756137 Physician: Bandera Order #: [id number] Dose#: PROCEDURE: LEFT DIAGNOSTIC BREAST TOMOSYNTHESIS MAMMOGRAM WITH CAD COMPARISON: [facility], 3D BILAT SCREEN, 02/19/2024, 14:00. INDICATIONS: Abnormal [...] Beckett MD on 02/27/2024 at 10:53 Normal [facility] 3D MAMM BILAT SCREENon 02-18 3D MAMM BILAT SCREEN [place] [address] Patient: CLARISSE PEGUERO Phone#: : 1980 Age: 43 Gender: F Pt. Type: Out Account: [id number] Location: Ordering: KAREN RICE Exam Date: 02/19/2024/14:00 Family Phys: Charge Code: [id number] Physician: Bandera Order #: [id number] Dose#: This report includes an Addendum and [...] IN THE APPROPRIATE REMINDER SYSTEM. Dictated by: eRma Beckett MD on 02/19/2024 at 18:05 Approved by: Rema Beckett MD on 02/19/2024 at 18:20 ADDENDUM: FINDINGS: RIGHT BREAST: No significant suspicious finding. Continued Report - Page 2 of 2 Patient: CLARISSE PEGUERO Phone#: : 1980 Age: 43 Gender: F Pt. Type: Out Account: [id number] Location: Ordering: KAREN RICE Exam Date: 02/19/2024/14:00 Family Phys: Charge Code: [id number] Physician: Bandera Order #: [id number] Dose#: RECOMMENDATIONS: ADDITIONAL MAMMOGRAPHIC VIEWS REQUIRED: LEFT BREAST --We will call the patient back for additional views and issue an addendum report. Dictated by: Rema Beckett MD on 02/27/2024 at 10:52 Approved by: Rema Beckett MD on 02/27/2024 at 10:52 Normal [facility] THIN PREP ([place]) HPV DNAon 0 02-12-2024 THIN PREP ([place]) HPV DNA Normal [facility] Comment on above: Result Comment: SEE SEPERATE REPORT Performed By: #### [id number] #### [facility],[address] [place] [address] Vital Signs Date Time Vital Sign Value Performing Clinician Faci lity 05-06-2025 11:03-0500 Body temperature 98.24 [degF] DR ROSEANN Dixon [facility] 05-06-2025 11:03-0500 Diastolic Blood Pressure Non-Invasive 70 mm[Hg] DR ROSEANN LUNDBERG MD [facility] 05-06-2025 11:03-0500 Heart rate 84 /min DR ROSEANN Dixon [facility] 05-06-2025 11:03-0500 Systolic Blood Pressure Non-Invasive 108 mm[Hg] DR ROSEANN LUNDBERG MD [facility] 05-06-2025 11:02-0500 Body height [address] ROSEANN Dixon [facility] 05-04-2025 13:04-0500 Diastolic Blood Pressure Non-Invasive 72 mm[Hg] DR ROSEANN LUNDBERG MD [facility] 05-04-2025 13:04-0500 Systolic Blood Pressure Non-Invasive 124 mm[Hg] DR ROSEANN LUNDBERG MD [facility] 05-04-2025 09:36-0500 Body height [address] ROSEANN Dixon [facility] 05-04-2025 09:36-0500 Body weight 101.[address] ROSEANN Dixon [facility] 05-04-2025 09:36-0500 Body weight 39.73 kg/m2 DR ROSEANN Dixon [address] [place] [address] 05-04-2025 09:34-0500 Blood Pressure Cuff Size DR ROSEANN LUNDBERG MD [address] [place] [address] 05-04-2025 09:34-[address] ROSEANN LUNDBERG MD [address] [place] [address] 05-04-2025 09:34-[address] ROSEANN LUNDBERG MD [facility] 05-04-2025 09:34-0500 Body temperature 98.24 [degF] DR ROSEANN Dixon [facility] 05-04-2025 09:34-0500 Diastolic Blood Pressure Non-Invasive 82 mm[Hg] DR ROSEANN LUNDBERG MD [facility] 05-04-2025 09:34-0500 Heart rate 82 /min DR ROSEANN Dixon [facility] 05-04-2025 09:34-0500 Systolic Blood Pressure Non-Invasive 128 mm[Hg] DR ROSEANN LUNDBERG MD [facility] 05-04-2025 07:58-0500 Body weight 101.[address] ROSEANN Dixon [facility] 04-22-2025 09:00-0400 Body temperature 96.26 [degF] ARLENE RODRIGEZ MD [facility] 04-22-2025 09:00-0400 Diastolic Blood Pressure Non-Invasive 64 mm[Hg] ARLENE RODRIGEZ MD [facility] 04-22-2025 09:00-0400 Heart rate 68 /min ARLENE RODRIGEZ MD [facility] 04-22-2025 09:00-0400 Systolic Blood Pressure Non-Invasive 100 mm[Hg] ARLENE RODRIGEZ MD [facility] 04-22-2025 08:42-0400 Body temperature 96.8 [degF] ARLENE RODRIGEZ MD [facility] 04-22-2025 08:42-0400 Diastolic Blood Pressure Non-Invasive 66 mm[Hg] ARLENE RODRIGEZ MD [facility] 04-22-2025 08:42-0400 Heart rate 69 /min ARLENE RODRIGEZ MD [facility] 04-22-2025 08:42-0400 Respiratory rate 16 /min ARLENE RODRIGEZ MD [facility] 04-22-2025 08:42-0400 Systolic Blood Pressure Non-Invasive 112 mm[Hg] ARLENE RODRIGEZ MD [facility] 04-22-2025 08:34-0400 Diastolic Blood Pressure Non-Invasive 61 mm[Hg] ARLENE RODRIGEZ MD [facility] 04-22-2025 08:34-0400 Heart rate 58 /min ARLENE RODRIGEZ MD [facility] 04-22-2025 08:34-0400 Systolic Blood Pressure Non-Invasive 113 mm[Hg] ARLENE RODRIGEZ MD [facility] 04-22-2025 08:20-0400 Body temperature 97.16 [degF] ARLENE RODRIGEZ MD [facility] 04-22-2025 08:20-0400 Heart rate 89 /min ARLENE RODRIGEZ MD [facility] 04-22-2025 08:20-0400 Mean blood pressure 78 mm[Hg] ARLENE RODRIGEZ MD [facility] 04-22-2025 08:15-0400 Respiratory Rate - Anes 0 br/min ARLENE RODRIGEZ MD [facility] 04-22-2025 08:10-0400 Respiratory Rate - Anes 28 br/min ARLENE RODRIGEZ MD [facility] 04-22-2025 08:05-0400 Respiratory Rate - Anes 24 br/min ARLENE RODRIGEZ MD [facility] 04-22-2025 05:49-0400 Body height 160 cm ARLENE RODRIGEZ MD [facility] 04-22-2025 05:49-0400 Body weight 99.8 kg ARLENE RODRIGEZ MD [facility] 04-22-2025 05:36-0400 Heart rate 72 /min ARLENE RODRIGEZ MD [facility] 04-19-2025 11:11-0400 Body height 160 cm ARLENE RODRIGEZ MD [facility] 04-19-2025 11:11-0400 Body weight 39.84 kg/m2 ARLENE RODRIGEZ MD [facility] 04-19-2025 11:11-0400 Body weight 102 kg ARLENE RODRIGEZ MD [facility] 11-05-2024 15:56-0400 Body height [address] ROSEANN Dixon [facility] 11-05-2024 15:42-0400 Body temperature 98.06 [degF] DR ROSEANN Dixon [facility] 11-05-2024 15:42-0400 Diastolic Blood Pressure Non-Invasive 63 mm[Hg] DR ROSEANN LUNDBERG MD [facility] 11-05-2024 15:42-0400 Heart rate 88 /min DR ROSEANN Dixon [facility] 11-05-2024 15:42-0400 Systolic Blood Pressure Non-Invasive 119 mm[Hg] DR ROSEANN LUNDBERG MD [address] [place] [address] 11-03-2024 09:43-0400 Body height [address] ROSEANN Dixon [address] [place] [address] 11-03-2024 09:43-0400 Body weight 98.[address] ROSEANN Dixon [address] [place] [address] 11-03-2024 09:43-0400 Body weight 38.4 kg/m2 DR ROSEANN Dixon [address] [place] [address] 11-03-2024 09:42-0400 Body temperature 98.42 [degF] DR ROSEANN Dixon [facility] 11-03-2024 09:42-0400 Diastolic Blood Pressure Non-Invasive 61 mm[Hg] DR ROSEANN LUNDBERG MD [facility] 11-03-2024 09:42-0400 Heart rate 77 /min DR ROSEANN Dixon [facility] 11-03-2024 09:42-0400 Systolic Blood Pressure Non-Invasive 114 mm[Hg] DR ROSEANN LUNDBERG MD [address] [place] [address] 11-03-2024 08:56-0400 Body weight 98.[address] ROSEANN Dixon [facility] 10-22-2024 12:26-0400 Body height [address] ROSEANN Dixon [facility] 10-22-2024 12:14-0400 Blood Pressure Cuff Size DR ROSEANN LUNDBERG MD [address] [place] [address] 10-22-2024 12:14-[address] ROSEANN LUNDBERG MD [address] [place] [address] 10-22-2024 12:14-[address] ROSEANN LUNDBERG MD [address] [place] [address] 10-22-2024 12:14-0400 Body temperature 98.24 [degF] DR ROSEANN Dixon [address] 10-22-2024 12:14-0400 Diastolic Blood Pressure Non-Invasive 54 mm[Hg] DR ROSEANN LUNDBERG MD [address] [place] [address] 10-22-2024 12:14-0400 Heart rate 71 /min DR ROSEANN Dixon [address] [place] [address] 10-22-2024 12:14-0400 Systolic Blood Pressure Non-Invasive 109 mm[Hg] DR ROSEANN LUNDBERG MD [address] [place] [address] 10-20-2024 13:56-0400 Diastolic Blood Pressure Non-Invasive 58 mm[Hg] DR ROSEANN LUNDBERG MD [address] [place] [address] 10-20-2024 13:56-0400 Heart rate 62 /min DR ROSEANN Dixon [address] [place] [address] 10-20-2024 13:56-0400 Reason For Taking VItal Signs DR ROSEANN LUNDBERG MD [address] [place] [address] 10-20-2024 13:56-0400 Systolic Blood Pressure Non-Invasive 121 mm[Hg] DR ROSEANN LUNDBERG MD [address] [place] [address] 10-20-2024 09:46-0400 Body height [address] ROSEANN Dixon [address] [place] [address] 10-20-2024 09:46-0400 Body weight 98.[address] ROSEANN Dixon [facility] 10-20-2024 09:46-0400 Body weight 38.59 kg/m2 DR ROSEANN Dixon [facility] 10-20-2024 09:44-0400 Blood Pressure Cuff Size DR ROSEANN LUNDBERG MD [address] [place] [address] 10-20-2024 09:44-[address] ROSEANN LUNDBERG MD [address] [place] [address] 10-20-2024 09:44-[address] ROSEANN LUNDBERG MD [address] 10-20-2024 09:44-0400 Body temperature 98.6 [degF] DR ROSEANN Dixon [address] [place] [address] 10-20-2024 09:44-0400 Diastolic Blood Pressure Non-Invasive 57 mm[Hg] DR ROSEANN LUNDBERG MD [address] [place] [address] 10-20-2024 09:44-0400 Heart rate 60 /min DR ROSEANN Dixon [address] [place] [address] 10-20-2024 09:44-0400 Systolic Blood Pressure Non-Invasive 118 mm[Hg] DR ROSEANN LUNDBERG MD [address] [place] [address] 10-20-2024 08:31-0400 Body weight 98.[address] ROSEANN Dixon [address] [place] [address] 10-08-2024 13:48-0400 Body temperature 98.42 [degF] DR ROSEANN Dixon [address] [place] [address] 10-08-2024 13:48-0400 Diastolic Blood Pressure Non-Invasive 56 mm[Hg] DR ROSEANN LUNDBERG MD [address] [place] [address] 10-08-2024 13:48-0400 Heart rate 69 /min DR ROSEANN Dixon [facility] 10-08-2024 13:48-0400 Respiratory rate 18 /min DR ROSEANN Dixon [facility] 10-08-2024 13:48-0400 Systolic Blood Pressure Non-Invasive 101 mm[Hg] DR ROSEANN LUNDBERG MD [address] [place] [address] 10-08-2024 13:47-0400 Body height [address] ROSEANN Dixon [address] [place] [address] 10-06-2024 15:56-0400 Diastolic Blood Pressure Non-Invasive 72 mm[Hg] DR ROSEANN LUNDBERG MD [address] [place] [address] 10-06-2024 15:56-0400 Systolic Blood Pressure Non-Invasive 121 mm[Hg] DR ROSEANN LUNDBERG MD [address] [place] [address] 10-06-2024 10:27-0400 Body height [address] ROSEANN Dixon [address] [place] [address] 10-06-2024 10:27-0400 Body weight 97.[address] ROSEANN Dixon [address] [place] [address] 10-06-2024 10:27-0400 Body weight 37.97 kg/m2 DR ROSEANN Dixon [address] [place] [address] 10-06-2024 10:26-0400 Respiratory rate 18 /min DR ROSEANN Dixon [address] [place] [address] 10-06-2024 10:16-0400 Body temperature 97.88 [degF] DR ROSEANN Dixon [address] [place] [address] 10-06-2024 10:16-0400 Diastolic Blood Pressure Non-Invasive 66 mm[Hg] DR ROSEANN LUNDBERG MD [address] [place] [address] 10-06-2024 10:16-0400 Heart rate 69 /min DR ROSEANN Dixon [facility] 10-06-2024 10:16-0400 Systolic Blood Pressure Non-Invasive 107 mm[Hg] DR ROSEANN LUNDBERG MD [facility] 10-06-2024 09:30-0400 Body weight 97.[address] ROSEANN Dixon [facility] 10-01-2024 12:47-0400 Body temperature 100.22 [degF] DR ROSEANN LUNDBERG MD [facility] 10-01-2024 12:47-0400 Diastolic Blood Pressure Non-Invasive 65 mm[Hg] DR ROSEANN LUNDBERG MD [facility] 10-01-2024 12:47-0400 Heart rate 77 /min DR ROSEANN Dixon [facility] 10-01-2024 12:47-0400 Systolic Blood Pressure Non-Invasive 118 mm[Hg] DR ROSEANN LUNDBERG MD [facility] 09-30-2024 12:13-0400 Blood Pressure Cuff Size CASIE TEQUILA PA-C [facility] 09-30-2024 12:13-0400 Blood Pressure Location CASIE TEQUILA PA-C [facility] 09-30-2024 12:13-0400 Blood Pressure Method CASIE TEQUILA PA-C [facility] 09-30-2024 12:13-0400 Body height 160 cm CASIE TEQUILA PA-C [facility] 09-30-2024 12:13-0400 Body weight 97.7 kg CASIE TEQUILA PA-C [facility] 09-30-2024 12:13-0400 Body weight 38.16 kg/m2 CASIE TEQUILA PA-C [facility] 09-30-2024 12:13-0400 Diastolic Blood Pressure Non-Invasive 61 mm[Hg] CASIE TEQUILA PA-C [facility] 09-30-2024 12:13-0400 Heart rate 93 /min CASIE TEQUILA PA-C [facility] 09-30-2024 12:13-0400 Respiratory rate 18 /min CASIE TEQUILA PA-C [facility] 09-30-2024 12:13-0400 Systolic Blood Pressure Non-Invasive 102 mm[Hg] CASIE TEQUILA PA-C [facility] 09-24-2024 11:43-0400 Body temperature 98.24 [degF] DR ROSEANN Dixon [facility] 09-24-2024 11:43-0400 Diastolic Blood Pressure Non-Invasive 66 mm[Hg] DR ROSEANN LUNDBERG MD [facility] 09-24-2024 11:43-0400 Heart rate 80 /min DR ROSEANN Dixon [facility] 09-24-2024 11:43-0400 Systolic Blood Pressure Non-Invasive 115 mm[Hg] DR ROSEANN LUNDBERG MD [facility] 09-24-2024 11:41-0400 Body height [address] ROSEANN Dixon [facility] 09-22-2024 13:14-0400 Diastolic Blood Pressure Non-Invasive 78 mm[Hg] DR ROSEANN LUNDBERG MD [facility] 09-22-2024 13:14-0400 Heart rate 80 /min DR ROSEANN Dixon [facility] 09-22-2024 13:14-0400 Systolic Blood Pressure Non-Invasive 125 mm[Hg] DR ROSEANN LUNDBERG MD [facility] 09-22-2024 09:22-0400 Body height [address] ROSEANN Dixon [facility] 09-22-2024 09:22-0400 Body weight 98.[address] ROSEANN Dixon [facility] 09-22-2024 09:22-0400 Body weight 38.63 kg/m2 DR ROSEANN Dixon [facility] 09-22-2024 09:21-0400 Body temperature 98.42 [degF] DR ROSEANN Dixon [facility] 09-22-2024 09:21-0400 Diastolic Blood Pressure Non-Invasive 51 mm[Hg] DR ROSEANN LUNDBERG MD [facility] 09-22-2024 09:21-0400 Heart rate 77 /min DR ROSEANN Dixon [facility] 09-22-2024 09:21-0400 Respiratory rate 20 /min DR ROSEANN Dixon [facility] 09-22-2024 09:21-0400 Systolic Blood Pressure Non-Invasive 98 mm[Hg] DR ROSEANN LUNDBERG MD [facility] 09-22-2024 07:46-0400 Body weight 98.[address] ROSEANN Dixon [facility] 09-16-2024 12:40-0400 Body height 160 cm ZACH SCHWARZENTRAUB PA-C [facility] 09-16-2024 12:40-0400 Body temperature 98.42 [degF] ZACH SCHWARZENTRAUB PA-C [facility] 09-16-2024 12:40-0400 Body weight 97 kg ZACH SCHWARZENTRAUB PA-C [facility] 09-16-2024 12:40-0400 Body weight 37.89 kg/m2 ZACH SCHWARZENTRAUB PA-C [facility] 09-16-2024 12:40-0400 Diastolic Blood Pressure Non-Invasive 57 mm[Hg] ZACH SCHWARZENTRAUB PA-C [facility] 09-16-2024 12:40-0400 Heart rate 85 /min ZACH SCHWARZENTRAUB PA-C [facility] 09-16-2024 12:40-0400 Respiratory rate 18 /min BARTLETT SCHWARZENTRAUB PA-C [facility] 09-16-2024 12:40-0400 Systolic Blood Pressure Non-Invasive 124 mm[Hg] ZACH SCHWARZENTRAUB PA-C [facility] 08-31-2024 06:43-0500 Body temperature 97.88 [degF] VANESSA CAMPBELL MD [facility] 08-31-2024 06:43-0500 Diastolic Blood Pressure Non-Invasive 62 mm[Hg] VANESSA CAMPBELL MD [facility] 08-31-2024 06:43-0500 Heart rate 76 /min VANESSA CAMPBELL MD [facility] 08-31-2024 06:43-0500 Respiratory rate 16 /min VANESSA CAMPBELL MD [facility] 08-31-2024 06:43-0500 Systolic Blood Pressure Non-Invasive 112 mm[Hg] VANESSA CAMPBELL MD [facility] 08-30-2024 23:47-0500 Body temperature 98.24 [degF] VANESSA CAMPBELL MD [facility] 08-30-2024 23:47-0500 Diastolic Blood Pressure Non-Invasive 62 mm[Hg] VANESSA CAMPBELL MD [facility] 08-30-2024 23:47-0500 Heart rate 77 /min VANESSA CAMPBELL MD [facility] 08-30-2024 23:47-0500 Reason For Taking VItal Signs VANESSA CAMPBELL MD [facility] 08-30-2024 23:47-0500 Respiratory rate 17 /min VANESSA CAMPBELL MD [facility] 08-30-2024 23:47-0500 Systolic Blood Pressure Non-Invasive 104 mm[Hg] VANESSA CAMPBELL MD [address] [place] [address] 08-30-2024 14:43-0500 Blood Pressure Cuff Size VANESSA CAMPBELL MD [facility] 08-30-2024 14:43-0500 Blood Pressure Location VANESSA CAMPBELL MD [facility] 08-30-2024 14:43-0500 Blood Pressure Method VANESSA CAMPBELL MD [facility] 08-30-2024 14:43-0500 Body temperature 97.52 [degF] VANESSA CAMPBELL MD [facility] 08-30-2024 14:43-0500 Diastolic Blood Pressure Non-Invasive 71 mm[Hg] VANESSA CAMPBELL MD [facility] 08-30-2024 14:43-0500 Heart rate 87 /min VANESSA CAMPBELL MD [facility] 08-30-2024 14:43-0500 Reason For Taking VItal Signs VANESSA CAMPBELL MD [facility] 08-30-2024 14:43-0500 Respiratory rate 18 /min VANESSA CAMPBELL MD [facility] 08-30-2024 14:43-0500 Systolic Blood Pressure Non-Invasive 117 mm[Hg] VANESSA CAMPBELL MD [facility] 08-30-2024 07:45-0500 Blood Pressure Cuff Size VANESSA CAMPBELL MD [facility] 08-30-2024 07:45-0500 Blood Pressure Location VANESSA CAMPBELL MD [facility] 08-30-2024 07:45-0500 Blood Pressure Method VANESSA CAMPBELL MD [address] [place] [address] 08-30-2024 07:45-0500 Heart rate 64 /min VANESSA CAMPBELL MD [facility] 08-30-2024 07:45-0500 Reason For Taking VItal Signs VANESSA CAMPBELL MD [address] [place] [address] 08-29-2024 23:08-0500 Heart rate 67 /min VANESSA CAMPBELL MD [address] 08-29-2024 14:28-0500 Blood Pressure Cuff Size VANESSA CAMPBELL MD [facility] 08-29-2024 14:28-0500 Blood Pressure Location VANESSA CAMPBELL MD [facility] 08-29-2024 14:28-0500 Blood Pressure Method VANESSA CAMPBELL MD [facility] 08-29-2024 07:15-0500 Heart rate 59 /min VANESSA CAMPBELL MD [facility] 08-29-2024 05:06-0500 Heart rate 61 /min VANESSA CAMPBELL MD [facility] 08-28-2024 15:30-0500 Body temperature 98.6 [degF] VANESSA CAMPBELL MD [address] [place] [address] 08-28-2024 14:45-0500 Body temperature 98.96 [degF] VANESSA CAMPBELL MD [facility] 08-28-2024 14:40-0500 Respiratory Rate - Anes 7 br/min VANESSA CAMPBELL MD [address] [place] [address] 08-28-2024 14:35-0500 Respiratory Rate - Anes 8 br/min VANESSA CAMPBELL MD [address] [place] [address] 08-28-2024 14:30-0500 Body temperature 99.91 [degF] VANESSA CAMPBELL MD [address] [place] [address] 08-28-2024 14:30-0500 Respiratory Rate - Anes 16 br/min VANESSA CAMPBELL MD [address] [place] [address] 08-28-2024 14:25-0500 Body temperature 100.09 [degF] VANESSA CAMPBELL MD [address] [place] [address] 08-28-2024 14:20-0500 Body temperature 100.38 [degF] VANESSA CAMPBELL MD [address] [place] [address] 08-28-2024 13:37-0500 Mean blood pressure 65 mm[Hg] VANESSA CAMPBELL MD [address] [place] [address] 08-28-2024 12:55-0500 Mean blood pressure 74 mm[Hg] VANESSA CAMPBELL MD [address] [place] [address] 08-19-2024 17:35-0500 Body height 160 cm VANESSA CAMPBELL MD [address] [place] [address] 08-19-2024 17:35-0500 Body weight 99.8 kg VANESSA CAMPBELL MD [address] [place] [address] 08-19-2024 17:35-0500 Body weight 38.98 kg/m2 VANESSA CAMPBELL MD [address] [place] [address] 08-19-2024 10:15-0500 Mean blood pressure 80 mm[Hg] VANESSA CAMPBELL MD [address] [place] [address] 08-19-2024 04:05-0500 Body weight 99.8 kg VANESSA CAMPBELL MD [address] [place] [address] 08-18-2024 14:46-0500 Body mass index (BMI) [Ratio] 39.86 kg/m2 Paulo Avila MD Work Phone: [facility] 08-18-2024 14:46-0500 Body weight 102.06 kg Paulo Avila MD Work Phone: [facility] 08-18-2024 14:46-0500 Diastolic blood pressure 60 mm[Hg] Paulo Avila MD Work Phone: [facility] 08-18-2024 14:46-0500 Heart rate 127 /min Paulo Avila MD Work Phone: [facility] 08-18-2024 14:46-0500 Systolic blood pressure 99 mm[Hg] Paulo Avila MD Work Phone: [facility] 08-18-2024 08:17-0500 Respiratory rate 18 /min DR ROSEANN Dixon [facility] 08-18-2024 08:15-0500 Body height [address] ROSEANN Dixon [facility] 08-18-2024 08:15-0500 Body weight 100.[address] ROSEANN Dixon [facility] 08-18-2024 08:15-0500 Body weight 39.3 kg/m2 DR ROSEANN Dixon [facility] 08-18-2024 08:10-0500 Body temperature 98.42 [degF] DR ROSEANN Dixon [facility] 08-18-2024 08:10-0500 Diastolic Blood Pressure Non-Invasive 60 mm[Hg] DR ROSEANN LUNDBERG MD [facility] 08-18-2024 08:10-0500 Heart rate 106 /min DR ROSEANN Dixon [facility] 08-18-2024 08:10-0500 Systolic Blood Pressure Non-Invasive 103 mm[Hg] DR ROSEANN LUNDBERG MD [facility] 08-18-2024 07:37-0500 Body weight 100.[address] ROSEANN Dixon [facility] 08-06-2024 12:10-0500 Body height [address] ROSEANN Dixon [facility] 08-06-2024 12:10-0500 Body temperature 98.24 [degF] DR ROSEANN Dixon [facility] 08-06-2024 12:10-0500 Diastolic Blood Pressure Non-Invasive 55 mm[Hg] DR ROSEANN LUNDBERG MD [facility] 08-06-2024 12:10-0500 Heart rate 76 /min DR ROSEANN Dixon [facility] 08-06-2024 12:10-0500 Systolic Blood Pressure Non-Invasive 117 mm[Hg] DR ROSEANN LUNDBERG MD [facility] 08-05-2024 13:05-0500 Body mass index (BMI) [Ratio] 40.74 kg/m2 Justice Perea MD Work Phone: [facility] 08-05-2024 13:05-0500 Body temperature 96.4 [degF] Justice Perea MD Work Phone: [facility] 08-05-2024 13:05-0500 Body weight 104.33 kg Justice Perea MD Work Phone: [facility] 08-05-2024 13:05-0500 Diastolic blood pressure 69 mm[Hg] Justice Perea MD Work Phone: [facility] 08-05-2024 13:05-0500 Heart rate 92 /min Justice Perea MD Work Phone: [facility] 08-05-2024 13:05-0500 Respiratory rate 18 /min Justice Perea MD Work Phone: [facility] 08-05-2024 13:05-0500 SaO2% (BldA) [Mass fraction] 98 % Justice Perea MD Work Phone: [facility] 08-05-2024 13:05-0500 Systolic blood pressure 109 mm[Hg] Justice Perea MD Work Phone: [facility] 08-04-2024 14:05-0500 Diastolic Blood Pressure Non-Invasive 62 mm[Hg] DR ROSEANN LUNDBERG MD [facility] 08-04-2024 14:05-0500 Heart rate 88 /min DR ROSEANN Dixon [facility] 08-04-2024 14:05-0500 Reason For Taking VItal Signs DR ROSEANN LUNDBERG MD [facility] 08-04-2024 14:05-0500 Systolic Blood Pressure Non-Invasive 129 mm[Hg] DR ROSEANN LUNDBERG MD [facility] 08-04-2024 10:28-0500 Body height [address] ROSEANN Dixon [facility] 08-04-2024 10:28-0500 Body weight 104.[address] ROSEANN Dixon [facility] 08-04-2024 10:28-0500 Body weight 40.78 kg/m2 DR ROSEANN Dixon [facility] 08-04-2024 10:26-0500 Reason For Taking VItal Signs DR ROSEANN LUNDBERG MD [facility] 08-04-2024 10:21-0500 Body temperature 98.06 [degF] DR ROSEANN Dixon [facility] 08-04-2024 10:21-0500 Diastolic Blood Pressure Non-Invasive 66 mm[Hg] DR ROSEANN LUNDBERG MD [facility] 08-04-2024 10:21-0500 Heart rate 93 /min DR ROSEANN Dixon [facility] 08-04-2024 10:21-0500 Systolic Blood Pressure Non-Invasive 106 mm[Hg] DR ROSEANN LUNDBERG MD [facility] 08-04-2024 09:14-0500 Body weight 104.[address] ROSEANN Dixon [facility] 07-23-2024 16:00-0500 Body temperature 98.06 [degF] ARLENE RODRIGEZ MD [facility] 07-23-2024 16:00-0500 Diastolic Blood Pressure Non-Invasive 70 mm[Hg] ARLENE RODRIGEZ MD [facility] 07-23-2024 16:00-0500 Heart rate 85 /min ARLENE RODRIGEZ MD [facility] 07-23-2024 16:00-0500 Systolic Blood Pressure Non-Invasive 111 mm[Hg] ARLENE RODRIGEZ MD [facility] 07-23-2024 15:42-0500 Heart rate 77 /min ARLENE RODRIGEZ MD [facility] 07-23-2024 15:41-0500 Heart rate 78 /min ARLENE RODRIGEZ MD [facility] 07-23-2024 15:41-0500 Diastolic Blood Pressure Non-Invasive 74 mm[Hg] ARLENE RODRIGEZ MD [facility] 07-23-2024 15:41-0500 Mean blood pressure 88 mm[Hg] ARLENE RODRIGEZ MD [facility] 07-23-2024 15:41-0500 Systolic Blood Pressure Non-Invasive 136 mm[Hg] ARLENE RODRIGEZ MD [facility] 07-23-2024 15:41-0500 Body temperature 98.42 [degF] ARLENE RODRIGEZ MD [facility] 07-23-2024 15:41-0500 Respiratory rate 16 /min ARLENE RODRIGEZ MD [facility] 07-23-2024 15:25-0500 Heart rate 81 /min ARLENE RODRIGEZ MD [address] [place] [address] 07-23-2024 15:25-0500 Diastolic Blood Pressure Non-Invasive 77 mm[Hg] ARLENE RODRIGEZ MD [address] [place] [address] 07-23-2024 15:25-0500 Mean blood pressure 87 mm[Hg] ARLENE RODRIGEZ MD [facility] 07-23-2024 15:25-0500 Systolic Blood Pressure Non-Invasive 123 mm[Hg] ARLENE RODRIGEZ MD [facility] 07-23-2024 15:10-0500 Mean blood pressure 83 mm[Hg] ARLENE RODRIGEZ MD [facility] 07-23-2024 15:10-0500 Body temperature 98.6 [degF] ARLENE RODRIGEZ MD [facility] 07-23-2024 15:10-0500 Respiratory Rate - Anes 0 br/min ARLENE RODRIGEZ MD [facility] 07-23-2024 15:05-0500 Respiratory Rate - Anes 0 br/min ARLENE RODRIGEZ MD [facility] 07-23-2024 15:00-0500 Body temperature 96.8 [degF] ARLENE RODRIGEZ MD [facility] 07-23-2024 15:00-0500 Respiratory Rate - Anes 24 br/min ARLENE RODRIGEZ MD [facility] 07-23-2024 11:30-0500 Body height 160 cm ARLENE RODRIGEZ MD [facility] 07-23-2024 11:30-0500 Body weight 101 kg ARLENE RODRIGEZ MD [facility] 07-23-2024 11:30-0500 Heart rate 98 /min ARLENE RODRIGEZ MD [facility] 2024 08:21-0500 Blood Pressure Cuff Size ARLENE RODRIGEZ MD [facility] 2024 08:21-0500 Blood Pressure Location ARLENE RODRIGEZ MD [facility] 2024 08:21-0500 Blood Pressure Method ARLENE RODRIGEZ MD [facility] 2024 08:21-0500 Body height 162.6 cm ARLENE RODRIGEZ MD [facility] 2024 08:21-0500 Body temperature 97.88 [degF] ARLENE RODRIGEZ MD [facility] 2024 08:21-0500 Body weight 103.6 kg ARLENE RODRIGEZ MD [facility] 2024 08:21-0500 Body weight 39.18 kg/m2 ARLENE RODRIGEZ MD [facility] 2024 08:21-0500 Diastolic Blood Pressure Non-Invasive 80 mm[Hg] ARLENE RODRIGEZ MD [facility] 2024 08:21-0500 Heart rate 98 /min ARLENE RODRIGEZ MD [facility] 2024 08:21-0500 Systolic Blood Pressure Non-Invasive 102 mm[Hg] ARLENE RODRIGEZ MD [facility] 07-16-2024 11:59-0500 Diastolic Blood Pressure Non-Invasive 83 mm[Hg] ARLENE RODRIGEZ MD [facility] 07-16-2024 11:59-0500 Heart rate 72 /min ARLENE RODRIGEZ MD [facility] 07-16-2024 11:59-0500 Respiratory rate 16 /min ARLENE RODRIGEZ MD [facility] 07-16-2024 11:59-0500 Systolic Blood Pressure Non-Invasive 123 mm[Hg] ARLENE RODRIGEZ MD [facility] 07-16-2024 11:33-0500 Blood Pressure Cuff Size ARLENE RODRIGEZ MD [facility] 07-16-2024 11:33-0500 Blood Pressure Location ARLENE RODRIGEZ MD [facility] 07-16-2024 11:33-0500 Blood Pressure Method ARLENE RODRIGEZ MD [facility] 07-16-2024 11:33-0500 Diastolic Blood Pressure Non-Invasive 83 mm[Hg] ARLENE RODRIGEZ MD [facility] 07-16-2024 11:33-0500 Heart rate 63 /min ARLENE RODRIGEZ MD [facility] 07-16-2024 11:33-0500 Respiratory rate 18 /min ARLENE RODRIGEZ MD [facility] 07-16-2024 11:33-0500 Systolic Blood Pressure Non-Invasive 129 mm[Hg] ARLENE RODRIGEZ MD [facility] 07-16-2024 11:03-0500 Blood Pressure Cuff Size ARLENE RODRIGEZ MD [facility] 07-16-2024 11:03-0500 Blood Pressure Location ARLENE RODRIGEZ MD [facility] 07-16-2024 11:03-0500 Blood Pressure Method ARLENE RODRIGEZ MD [facility] 07-16-2024 11:03-0500 Diastolic Blood Pressure Non-Invasive 75 mm[Hg] ARLENE RODRIGEZ MD [facility] 07-16-2024 11:03-0500 Heart rate 66 /min ARLENE RODRIGEZ MD [facility] 07-16-2024 11:03-0500 Respiratory rate 18 /min ARLENE RODRIGEZ MD [facility] 07-16-2024 11:03-0500 Systolic Blood Pressure Non-Invasive 123 mm[Hg] ARLENE RODRIGEZ MD [facility] 07-16-2024 10:47-0500 Heart rate 69 /min ARLENE RODRIGEZ MD [facility] 07-16-2024 10:34-0500 Heart rate 69 /min ARLENE RODRIGEZ MD [facility] 07-16-2024 10:05-0500 Heart rate 64 /min ARLENE RODRIGEZ MD [facility] 07-16-2024 07:10-0500 Blood Pressure Cuff Size ARLENE RODRIGEZ MD [facility] 07-16-2024 07:10-0500 Blood Pressure Location ARLENE RODRIGEZ MD [facility] 07-16-2024 07:10-0500 Blood Pressure Method ARLENE RODRIGEZ MD [facility] 07-16-2024 07:10-0500 Body temperature 97.52 [degF] ARLENE RODRIGEZ MD [facility] 07-15-2024 11:30-0500 Body height 160 cm ARLENE RODRIGEZ MD [facility] 07-15-2024 11:30-0500 Body weight 106.8 kg ARLENE RODRIGEZ MD [facility] 07-15-2024 11:30-0500 Body weight 41.72 kg/m2 ARLENE RODRIGEZ MD [facility] 04-15-2024 13:27-0400 Blood Pressure Location IRMA SHAH DO [facility] 04-15-2024 13:27-0400 Blood Pressure Method IRMA SHAH DO [facility] 04-15-2024 13:27-0400 Body height 160 cm IRMA SHAH DO [facility] 04-15-2024 13:27-0400 Body temperature 98.06 [degF] IRMA SHAH DO [facility] 04-15-2024 13:27-0400 Body weight 109.1 kg IRMA SHAH DO [facility] 04-15-2024 13:27-0400 Body weight 42.62 kg/m2 IRMA SHAH DO [facility] 04-15-2024 13:27-0400 Diastolic Blood Pressure Non-Invasive 58 mm[Hg] IRMA SHAH DO [facility] 04-15-2024 13:27-0400 Heart rate 78 /min IRMA SHAH DO [facility] 04-15-2024 13:27-0400 Respiratory rate 18 /min IRMA SHAH DO [facility] 04-15-2024 13:27-0400 Systolic Blood Pressure Non-Invasive 117 mm[Hg] IRMA SHAH DO [facility] 04-02-2024 09:59-0400 Blood Pressure Cuff Size DR KENAN JOSE MD [address] [place] [address] 04-02-2024 09:59-[address] KENAN JOSE MD [address] [place] [address] 04-02-2024 09:59-[address] KENAN JOSE MD [address] [place] [address] 04-02-2024 09:59-0400 Body height [address] KENAN JOSE MD [address] [place] [address] 04-02-2024 09:59-0400 Body temperature 98.6 [degF] DR KENAN JOSE MD [address] [place] [address] 04-02-2024 09:59-0400 Body weight 111.[address] KENAN JOSE MD [address] [place] [address] 04-02-2024 09:59-0400 Body weight 43.52 kg/m2 DR KENAN JOSE MD [address] [place] [address] 04-02-2024 09:59-0400 Diastolic Blood Pressure Non-Invasive 59 mm[Hg] DR KENAN JOSE MD [address] [place] [address] 04-02-2024 09:59-0400 Heart rate 79 /min DR KENAN JOSE MD [address] [place] [address] 04-02-2024 09:59-0400 Respiratory rate 18 /min DR KENAN JOSE MD [address] [place] [address] 04-02-2024 09:59-0400 Systolic Blood Pressure Non-Invasive 110 mm[Hg] DR KENAN JOSE MD [address] [place] [address] 03-23-2024 13:03-0400 Body height 160 cm POLINA DONOVAN PA-C [address] [place] [address] 03-23-2024 13:03-0400 Body temperature 98.42 [degF] POLINA SALVADOR PA-C [address] [place] [address] 03-23-2024 13:03-0400 Body weight 111.4 kg POLINA SALVADOR PA-C [facility] 03-23-2024 13:03-0400 Body weight 43.52 kg/m2 POLINA SALVADOR PA-C [facility] 03-23-2024 13:03-0400 Diastolic Blood Pressure Non-Invasive 84 mm[Hg] POLINA SALVADOR PA-C [facility] 03-23-2024 13:03-0400 Heart rate 76 /min POLINA SALVADOR PA-C [facility] 03-23-2024 13:03-0400 Respiratory rate 16 /min POLINA SALVADOR PA-C [facility] 03-23-2024 13:03-0400 Systolic Blood Pressure Non-Invasive 140 mm[Hg] POLINA SALVADOR PA-C [facility] 03-20-2024 13:45-0400 Body height 160.02 cm Geno Casper MA [facility]. 03-20-2024 13:45-0400 Body mass index (BMI) [Ratio] 42.87 kg/m2 Geno Casper MA [facility].; [facility]. 03-20-2024 13:45-0400 Body surface area Derived from formula 2.1 m2 Geno Casper MA [facility].; [facility]. 03-20-2024 13:45-0400 Body weight 109.77 kg Geno Casper MA [facility].; [facility]. 03-20-2024 13:45-0400 Diastolic blood pressure 76 mm[Hg] Geno Casper MA [facility].; [facility]. Comment on above: Patient Position: Sitting; Cuff Location : Left Arm; Cuff Size: Standard 03-20-2024 13:45-0400 Heart rate 109 /min [facility]o [facility]per [facility]. Comment on above: Pattern: Regular 03-20-2024 13:45-0400 Systolic blood pressure 108 mm[Hg] Geno Casper [facility]. Comment on above: Patient Position: Sitting; Cuff Location : Left Arm; Cuff Size: Standard 03-16-2024 11:52-0400 Reason For Taking VItal Signs BONIFACIO BAILEY DO [facility] [address] [place] [address] 03-16-2024 08:26-0400 Reason For Taking VItal Signs BONIFACIO BAILEY DO [facility] [address] 03-16-2024 07:35-0400 Blood Pressure Cuff Size BONIFACIO BAILEY DO [facility] [address] 03-16-2024 07:35-0400 Blood Pressure Location BONIFACIO BAILEY DO [facility] [address] 03-16-2024 07:35-0400 Blood Pressure Method BONIFACIO BAILEY DO [facility] [address] 03-16-2024 07:35-0400 Body temperature 98.06 [degF] BONIFACIO BAILEY DO [facility] [address] 03-16-2024 07:35-0400 Diastolic Blood Pressure Non-Invasive 72 mm[Hg] BONIFACIO BAILEY DO [facility] [address] 03-16-2024 07:35-0400 Heart rate 83 /min BONIFACIO BAILEY DO [facility] [address] 03-16-2024 07:35-0400 Reason For Taking VItal Signs BONIFACIO BALIEY DO [facility] [address] 03-16-2024 07:35-0400 Respiratory rate 18 /min BONIFACIO BAILEY DO [facility] [address] 03-16-2024 07:35-0400 Systolic Blood Pressure Non-Invasive 114 mm[Hg] BONIFACIO BAILEY DO [facility] [address] [place] [address] 03-15-2024 22:21-0400 Body temperature 97.88 [degF] BONIFACIO BAILEY DO [facility] 03-15-2024 22:21-0400 Diastolic Blood Pressure Non-Invasive 59 mm[Hg] BONIFACIO BEBETO CAMPBELL [facility] 03-15-2024 22:21-0400 Heart rate 72 /min BONIFACIO BEBETO CAMPBELL [address] [place] [address] 03-15-2024 22:21-0400 Respiratory rate 18 /min BONIFACIO BEBETO CAMPBELL [address] [place] [address] 03-15-2024 22:21-0400 Systolic Blood Pressure Non-Invasive 97 mm[Hg] BONIFACIO BEBETO CAMPBELL [address] [place] [address] 03-15-2024 15:50-0400 Blood Pressure Cuff Size BONIFACIO BEBETO [address] [place] [address] 03-15-2024 15:50-0400 Blood Pressure Location BONIFACIO BEBETO CAMPBELL [address] [place] [address] 03-15-2024 15:50-0400 Blood Pressure Method BONIFACIO BEBETO CAMPBELL [address] [place] [address] 03-15-2024 15:50-0400 Body temperature 97.88 [degF] BONIFACIO BAILEY DO [address] [place] [address] 03-15-2024 15:50-0400 Diastolic Blood Pressure Non-Invasive 66 mm[Hg] BONIFACIO BEBETO CAMPBELL [address] [place] [address] 03-15-2024 15:50-0400 Heart rate 77 /min BONIFACIO BEBETO CAMPBELL [address] [place] [address] 03-15-2024 15:50-0400 Respiratory rate 18 /min BONIFACIO BEBETO CAMPBELL [address] [place] [address] 03-15-2024 15:50-0400 Systolic Blood Pressure Non-Invasive 97 mm[Hg] BONIFACIO BEBETO CAMPBELL [address] [place] [address] 03-15-2024 06:36-0400 Blood Pressure Cuff Size BONIFACIO BAILEY DO [facility] 03-15-2024 06:36-0400 Blood Pressure Location BONIFACIO BAILEY DO [facility] 03-15-2024 06:36-0400 Blood Pressure Method BONIFACIO BAILEY DO [facility] 03-13-2024 14:46-0400 Heart rate 115 /min BONIFACIO BAILEY DO [facility] 03-13-2024 10:30-0400 Heart rate 84 /min BONIFACIO BAILEY DO [address] [place] [address] 03-13-2024 10:25-0400 Heart rate 78 /min BONIFACIO BAILEY DO [facility] 03-10-2024 17:04-0400 Signs/Symptoms Transfusion Reaction BONIFACIO BAILEY DO [facility] 03-10-2024 16:04-0400 Signs/Symptoms Transfusion Reaction No BONIFACIO ZHANGERMILEY CAMPBELL [facility] 03-10-2024 16:04-0400 Diastolic blood pressure 73 mm[Hg] BONIFACIO BAILEY DO [facility] 03-10-2024 16:04-0400 Systolic blood pressure 119 mm[Hg] BONIFACIO BAILEY DO [facility] 03-10-2024 15:51-0400 Signs/Symptoms Transfusion Reaction BONIFACIO BAILEY DO [facility] 03-10-2024 08:20-0400 Mean blood pressure 83 mm[Hg] BONIFACIO BAILEY DO [facility] 03-09-2024 18:58-0400 Heart rate 88 /min BONIFACIO BAILEY DO [facility] 03-09-2024 14:19-0400 Heart rate 98 /min BONIFACIO BAILEY DO [facility] 03-09-2024 08:06-0400 Heart rate 86 /min BONIFACIO BAILEY DO [facility] 03-09-2024 03:39-0400 Body height 160 cm BONIFACIO BAILEY DO [facility] 03-09-2024 03:39-0400 Body weight 113 kg BONIFACIO BAILEY DO [facility] 03-09-2024 03:39-0400 Body weight 44.14 kg/m2 BONIFACIO BAILEY DO [facility] 01-07-2023 10:41-0400 Body weight 124.29 kg Neal Watts LPN [facility] [employer] [facility]. 01-07-2023 10:41-0400 Diastolic blood pressure 73 mm[Hg] Neal Watts LPN [employer] [facility] Comment on above: Patient Position: Sitting; Cuff Location : Left Arm; Cuff Size: Standard 01-07-2023 10:41-0400 Heart rate 74 /min Neal Watts LPN [employer] [facility] [employer] Comment on above: Pattern: Regular 01-07-2023 10:41-0400 Systolic blood pressure 108 mm[Hg] Neal Watts [employer] [facility] [employer] [facility] Comment on above: Patient Position: Sitting; Cuff Location : Left Arm; Cuff Size: Standard 10-14-2015 15:46-0400 Body height 160.02 cm [email or web address] Work Phone: [employer] 10-14-2015 15:46-0400 Body mass index (BMI) [Ratio] 45.35 kg/m2 [employer] Work Phone: [employer]. 10-14-2015 15:46-0400 Body surface area Derived from formula 2.15 m2 [employer] Work Phone: [facility]; [facility] 10-14-2015 15:46-0400 Body temperature 99.1 [degF] Luke Connie PA- C Work Phone: [facility]; [facility] Comment on above: Method: Tympanic 10-14-2015 15:46-0400 Body weight 116.12 kg Luke Connie PA- C Work Phone: [facility]; [employer] 10-14-2015 15:46-0400 Diastolic blood pressure 65 mm[Hg] Luke Connie PA-C Work Phone: [facility]; [facility] Comment on above: Patient Position: Sitting; Cuff Location : Left Arm; Cuff Size: Large 10-14-2015 15:46-0400 Heart rate 81 /min Luke Connie PA- C Work Phone: [facility]; [employer]. Comment on above: Pattern: Regular 10-14-2015 15:46-0400 Inhaled oxygen concentration 21 % Luke Connie PA-C Work Phone: [facility]; [facility] Comment on above: Room air 10-14-2015 15:46-0400 SaO2% (BldA) [Mass fraction] 96 % Luke Connie PA-C Work Phone: [facility]; [facility] 10-14-2015 15:46-0400 Systolic blood pressure 91 mm[Hg] Luke Connie PA-C Work Phone: [facility]; [facility] Comment on above: Patient Position: Sitting; Cuff Location : Left Arm; Cuff Size: Large Encounters Encounter Date Encounter Type Care Provider Facility Start: 05-11-2025 End: 05-11-2025 Patient encounter procedure ARLENE RODRIGEZ MD [facility] Start: 05-06-2025 End: 05-06-[address] ROSEANN LUNDBERG MD [facility] Start: 05-06-2025 End: 05-06-2025 ambulatory LUKE CONNIE PA-C Facility:A Start: 05-06-[address] ROSEANN LUNDBERG MD F acility:A Start: 05-04-2025 ambulatory LUKE CONNIE PA-C F acility:A Start: 05-04-2025 ambulatory LUKE CONNIE PA-C F acility:A Start: 05-04-2025 End: 05-04-[address] ROSEANN LUNDBERG MD Facility:A Start: 05-04-2025 End: 05-04-[address] ROSEANN LUNDBERG MD [facility] Start: 04-30-2025 End: 04-30-2025 ambulatory BONIFACIO LOMBARDI Facility:[facility] Start: 04-22-2025 End: 04-22-2025 ambulatory LUKE CONNIE PA-C Facility:A Start: 04-22-2025 End: 04-22-2025 SAME DAY STAY ARLENE RODRIGEZ MD [facility] Start: 04-06-2025 ambulatory LUKE CONNIE PA-C F acility:A Start: 04-06-[address] ROSEANN LUNDBERG MD F acility:A Start: 04-06-2025 End: 04-06-2025 ambulatory LUKE CONNIE PA-C Facility:A Start: 04-06-2025 End: 04-06-[address] ROSEANN LUNDBERG MD [facility] Start: 04-01-2025 End: 04-01-[address] ROSEANN LUNDBERG MD Facility:A Start: 04-01-2025 End: 04-01-[address] ROSEANN LUNDBERG MD [facility] Start: 03-31-2025 ambulatory LUKE CONNIE PA-C F acility:A Start: 03-30-2025 End: 03-30-2025 ambulatory LUKE CONNIE PA-C Facility:A Start: 03-30-2025 End: 03-30-2025 Patient encounter procedure ARLENE RODRIGEZ MD [facility] Start: 03-24-2025 End: 03-24-2025 ambulatory LUKE CONNIE PA-C Facility:A Start: 03-24-2025 End: 03-24-[address] ROSEANN LUNDBERG MD [facility] Start: 03-24-2025 ambulatory LUKE CONNIE PA-C F acility:A Start: 03-23-2025 End: 03-23-2025 ambulatory LUKE CONNIE PA-C Facility:A Start: 03-23-2025 End: 03-23-[address] ROSEANN LUNDBERG MD [facility] Start: 03-11-2025 End: 03-11-2025 ambulatory LUKE CONNIE PA-C Facility:A Start: 03-11-2025 End: 03-11-[address] ROSEANN LUNDBERG MD [facility] Start: 03-09-2025 End: 03-09-[address] ROSEANN LUNDBERG MD Facility:A Start: 03-09-2025 End: 03-09-[address] ROSEANN LUNDBERG MD [facility] Start: 02-25-2025 End: 02-25-2025 ambulatory LUKE CONNIE PA-C Facility:A Start: 02-25-2025 End: 02-25-[address] ROSEANN LUNDBERG MD [facility] Start: 02-23-2025 End: 02-23-2025 ambulatory LUKE CONNIE PA-C Facility:A Start: 02-23-2025 End: 02-23-[address] ROSEANN LUNDBERG MD [facility] Start: 02-11-2025 End: 02-11-2025 ambulatory LUKE CONNIE PA-C Facility:A Start: 02-11-2025 End: 02-11-[address] ROSEANN LUNDBERG MD [facility] Start: 02-09-2025 End: 02-09-[address] ROSEANN LUNDBERG MD Facility:A Start: 02-09-2025 End: 02-09-[address] ROSEANN LUNDBERG MD [facility] Start: 02-02-2025 End: 02-02-2025 ambulatory LUKE CONNIE PA-C Facility:A Start: 02-02-2025 End: 02-02-2025 Patient encounter procedure ARLENE RODRIGEZ MD [facility] Start: 01-28-2025 End: 01-28-2025 ambulatory LUKE CONNIE PA-C Facility:A Start: 01-28-2025 End: 01-28-[address] ROSEANN LUNDBERG MD [facility] Start: 01-26-2025 End: 01-26-[address] ROSEANN LUNDBERG MD Facility:A Start: 01-26-2025 End: 01-26-[address] ROSEANN LUNDBERG MD [facility] Start: 01-14-2025 End: 01-14-2025 ambulatory LUKE CONNIE PA-C Facility:A Start: 01-14-2025 End: 01-14-[address] ROSEANN LUNDBERG MD [facility] Start: 01-12-2025 End: 01-12-2025 ambulatory LUKE CONNIE PA-C Facility:A Start: 01-12-2025 End: 01-12-[address] ROSEANN LUNDBERG MD [facility] Start: 01-08-2025 End: 01-08-2025 ambulatory LUKE CONNIE PA-C Facility:A Start: 01-08-2025 End: 01-08-[address] ROSEANN LUNDBERG MD [facility] Start: 01-07-2025 End: 01-07-2025 ambulatory LUKE CONNIE PA-C Facility:A Start: 01-07-2025 End: 01-07-[address] ROSEANN LUNDBERG MD [facility] Start: 01-05-2025 End: 01-05-2025 ambulatory ARLENE RODRIGEZ MD Facility:A Start: 01-05-2025 End: 01-05-2025 Patient encounter procedure ARLENE RODRIGEZ MD [facility] Start: 01-01-2025 End: 01-01-2025 ambulatory LUKE CONNIE PA-C Facility:A Start: 01-01-2025 End: 01-01-[address] ROSEANN LUNDBERG MD [employer] [facility] Start: 12-31-2024 End: 12-31-2024 ambulatory ABDULKADIR ROSALES PA-C Facility:A Start: 12-31-2024 End: 12-31-2024 Patient encounter procedure FRANCES MCKEON UNDERCUTTER 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 FOLDER [employer] [facility] Start: 12-29-2024 End: 12-29-2024 ambulatory FRANCES MCKEON UNDERCUTTER 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 FOLDER Facility:A Start: 12-29-2024 End: 12-29-2024 Patient encounter procedure FRANCES MCKEON UNDERCUTTER 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 FOLDER [employer] [facility] Start: 12-29-2024 End: 12-29-[address] ROSEANN LUNDBERG MD Facility:A Start: 12-17-2024 End: 12-17-2024 ambulatory FRANCES MCKEON UNDERCUTTER 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 FOLDER Facility:A Start: 12-17-2024 End: 12-17-2024 Patient encounter procedure FRANCES MCKEON APRN-WASHCLOTH FOLDER [employer] [facility] Start: 12-15-2024 End: 12-15-2024 ambulatory FRANCES MCKEON UNDERCUTTER 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 FOLDER Facility:A Start: 12-15-2024 End: 12-15-2024 Patient encounter procedure FRANCES MCKEON UNDERCUTTER 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 FOLDER [employer] [facility] Start: 12-03-2024 End: 12-03-[address] ROSEANN LUNDBERG MD Facility:A Start: 12-03-2024 End: 12-03-[address] ROSEANN LUNDBERG MD [employer] [facility] Start: 12-01-2024 End: 12-01-[address] ROSEANN LUNDBERG MD Facility:A Start: 12-01-2024 End: 12-01-[address] ROSEANN LUNDBERG MD [facility] Start: 11-19-2024 End: 11-19-[address] ROSEANN LUNDBERG MD Facility:A Start: 11-17-2024 End: 11-17-[address] ROSEANN LUNDBERG MD Facility:A Start: 11-17-2024 End: 11-17-[address] ROSEANN LUNDBERG MD [facility] Start: 11-10-2024 End: 11-10-2024 ambulatory LUKE CONNIE PA-C Facility:A Start: 11-10-2024 End: 11-10-2024 Patient encounter procedure ARLENE RODRIGEZ MD [facility] Start: 11-05-2024 End: 11-05-2024 ambulatory LUKE CONNIE PA-C Facility:A Start: 11-05-2024 End: 11-05-[address] ROSEANN LUNDBERG MD [facility] Start: 11-03-2024 End: 11-03-2024 ambulatory LUKE CONNIE PA-C Facility:A Start: 11-03-2024 End: 11-03-[address] ROSEANN LUNDBERG MD [facility] Start: 10-28-2024 End: 10-28-2024 ambulatory LUKE CONNIE PA-C Facility:A Start: 10-22-2024 End: 10-22-2024 ambulatory LUKE CONNIE PA-C Facility:A Start: 10-22-2024 End: 10-22-[address] ROSEANN LUNDBERG MD [facility] Start: 10-20-2024 End: 10-20-2024 ambulatory LUKE CONNIE PA-C Facility:A Start: 10-20-2024 End: 10-20-[address] ROSEANN LUNDBERG MD [facility] Start: 10-13-2024 End: 10-13-2024 ambulatory LUKE CONNIE PA-C Facility:A Start: 10-13-2024 End: 10-13-2024 Patient encounter procedure ARLENE RODRIGEZ MD [facility] Start: 10-08-2024 End: 10-08-2024 ambulatory LUKE CONNIE PA-C Facility:A Start: 10-08-2024 End: 10-08-[address] ROSEANN LUNDBERG MD [facility] Start: 10-06-2024 End: 10-06-2024 ambulatory LUKE CONNIE PA-C Facility:A Start: 10-06-2024 End: 10-06-[address] ROSEANN LUNDBERG MD [facility] Start: 10-02-2024 ambulatory LUKE CONNIE PA-C F acility:A Start: 10-01-2024 End: 10-01-2024 ambulatory LUKE CONNIE PA-C Facility:A Start: 10-01-2024 End: 10-01-[address] ROSEANN LUNDBERG MD [facility] Start: 09-30-2024 End: 09-30-2024 ambulatory LUKE CONNIE PA-C Facility:A Start: 09-30-2024 End: 09-30-2024 Patient encounter procedure CASIE WEINER PA-C [facility] Start: 09-24-2024 End: 09-24-2024 ambulatory LUKE CONNIE PA-C Facility:A Start: 09-24-2024 End: 09-24-[address] ROSEANN LUNDBERG MD [facility] Start: 09-22-2024 ambulatory LUKE CONNIE PA-C F acility:A Start: 09-22-2024 End: 09-22-2024 ambulatory LUKE CONNIE PA-C Facility:A Start: 09-22-2024 End: 09-22-[address] ROSEANN LUNDBERG MD [facility] Start: 09-16-2024 End: 09-16-2024 ambulatory LUKE CONNIE PA-C Facility:A Start: 09-16-2024 End: 09-16-2024 Patient encounter procedure ZACH REINOSO PA-C [facility] Start: 09-15-2024 End: 09-15-2024 ambulatory LUKE CONNIE PA-C Facility:A Start: 09-15-2024 End: 09-15-2024 Patient encounter procedure ARLENE RODRIGEZ MD [facility] Start: 09-03-2024 End: 09-03-2024 ambulatory LUKE CONNIE PA-C Facility:A Start: 09-02-2024 End: 09-02-2024 Telephone follow-up Luke Connie PA-C Work Phone: [facility] Start: 09-01-2024 End: 09-30-2024 ambulatory LUKE CONNIE PA-C Facility:[facility] Start: 08-19-2024 End: 08-31-2024 Evaluation and management of inpatient VANESSA CAMPBELL MD [facility] Start: 08-18-2024 End: 08-18-2024 Office outpatient new 60 minutes Paulo Avila MD Work Phone: [facility] Comment on above: Malignant neoplasm o f sigmoid colon (Multi) Start: 08-18-2024 End: 08-18-2024 [facility] Start: 08-18-2024 End: 08-18-2024 ambulatory LUKE CONNIE PA-C Facility:A Start: 08-18-2024 End: 08-18-[address] ROSEANN LUNDBERG MD [facility] Start: 08-13-2024 End: 08-13-2024 ambulatory ABDULKADIR ROSALES [facility] Start: 08-06-2024 End: 08-07-2024 ambulatory LUKE CONNEI PA-C Facility:A Start: 08-06-2024 End: 08-07-[address] ROSEANN LUNDBERG MD [facility] Start: 08-05-2024 End: 08-05-2024 Office outpatient new 45 minutes Justice Perea MD Work Phone: [facility] Comment on above: 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) (Primary Dx) Start: 08-05-2024 End: 08-05-2024 ambulatory JUSTICE PEREA [facility] Start: 08-04-2024 ambulatory LUKE CONNIE PA-C F acility:A Start: 08-04-2024 End: 08-04-2024 ambulatory LUKE CONNIE PA-C Facility:A Start: 08-04-2024 End: 08-04-[address] ROSEANN LUNDBERG MD [employer] Start: 08-01-2024 End: 08-01-2024 Subsequent hospital visit by physician [facility] Comment on above: Colon cancer metasta sized to liver (Multi) Start: 08-01-2024 End: 08-01-2024 ambulatory [facility] Start: 07-23-2024 End: 07-23-2024 ambulatory LUKE CONNIE PA-C Facility:A Start: 07-23-2024 End: 07-23-2024 SAME DAY STAY ARLENE RODRIGEZ MD [employer] [facility] Start: 2024 End: [address] ROSEANN LUNDBERG MD [employer] [facility] Start: 2024 End: 2024 Admission to establishment ARLENE RODRIGEZ MD [employer] [facility] Start: 2024 End: 2024 ambulatory LUKE CONNIE PA-C Facility:A Start: 07-16-2024 End: 07-17-2024 ambulatory LUKE CONNIE PA-C Facility:A Start: 07-16-2024 End: 07-17-2024 Patient encounter procedure ARL[facility] Start: 07-10-2024 ambulatory LUKE CONNIE PA-C F acility:A Start: 07-10-2024 End: 07-10-2024 ambulatory LUKE CONNIE PA-C Facility:A Start: 07-06-2024 End: 07-06-2024 Orders Luke Connie PA-C Work Phone: [facility] Start: 06-19-2024 End: 06-19-2024 ambulatory LUKE CONNIE PA-C Facility:A Start: 06-19-2024 End: 06-19-2024 ambulatory LUKE CONNIE PA-C Facility:A Start: 06-19-2024 End: 06-19-2024 Patient encounter procedure ARLENE RODRIGEZ MD [facility] Start: 06-10-2024 End: 06-10-2024 ambulatory NOELFAUSTO EASTMAN [facility] Start: 06-09-2024 End: 06-09-2024 Historical Summary Luke Connie PA-C Work Phone: [facility] Start: 06-08-2024 ambulatory LUKE CONNIE PA-C F acility:A Start: 06-08-2024 End: 06-12-2024 ambulatory LUKE CONNIE PA-C Facility:A Start: 05-05-2024 End: 05-05-2024 Patient encounter procedure ARLENE RODRIGEZ MD [facility] Start: 04-27-2024 End: 04-27-2024 ambulatory ARLENE RODRIGEZ [facility] Start: 04-15-2024 End: 04-15-2024 Patient encounter procedure IRMA SHAH DO [facility] Start: 04-13-2024 End: 04-13-2024 Patient encounter procedure ROSA LOVE 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 [facility] Start: 04-09-2024 End: 04-09-2024 ambulatory ROSA MENG [facility] Start: 04-06-2024 Review Abdulkadir serra PA-C Work Phone: [employer] [facility] Start: 04-02-2024 End: 04-02-[address] KENNA JOSE MD [facility] Start: 03-27-2024 End: 03-27-2024 Patient encounter procedure ARLENE RODRIGEZ MD [facility] Start: 03-23-2024 End: 03-23-2024 Patient encounter procedure POLINA DONOVAN PA-C [facility] Start: 03-20-2024 End: 03-20-2024 Office outpatient visit 25 minutes Abdulkadir Rosales PA-C Work Phone: [facility] Start: 03-18-2024 End: 03-18-2024 Telephone follow-up Abdulkadir Rosales PA-C Work Phone: [facility] Start: 03-09-2024 End: 03-16-2024 Evaluation and management of inpatient BONIFACIO BAILEY DO [facility] Start: 03-08-2024 End: 03-09-2024 Emergency department patient visit CHRIS GROVE [facility] Start: 02-27-2024 End: 02-27-2024 ambulatory [facility] Start: 02-19-2024 End: 02-19-2024 ambulatory [facility] Start: 02-06-2024 End: 02-06-2024 ambulatory [facility] Start: 02-06-2024 End: 02-06-2024 Encounter for gynecological examination (general) (routine) without abnormal findings KAREN CONTRACTING ENGINE[employer] [facility] Start: 01-07-2023 End: 01-07-2023 Office outpatient visit 15 minutes Luke Connie PA-C Work Phone: [facility] [facility] Start: 10-14-2015 End: 10-17-2015 Office outpatient visit 15 minutes Luke Connie PA-C Work Phone: [employer] [facility] Start: 12-17-2012 End: 12-17-2012 Medication Luke Connie PA-C Work Phone: [facility] [facility] Procedures Date Procedure Procedure Detail Performing Clinician [...] Comment: URIN ALYSIS Performed By: #### [id number] #### [facility],[address] [place] [address] Start: 10-14-2015 End: 10-14-2015 No Known Past Surgical History Abdulkadir Rosales PA-C Work Phone: Biopsy of liver ARLENE LUIS MD Colonoscopy ARLENE Hyde MD Extraction of wisdom tooth ARLENE RODRIGEZ MD H/O: colostomy S/P colostomy FRANCES FISHLE Y UNDERCUTTER 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 FOLDER None (qualifier value) DENTON RODRIGEZ MD Plan of Treatment Date Care Activity Detail Author Start: 2030 Zoster Vaccines (1 o f 2) Zoster Vaccines (1 of 2) [facility] Start: 08-18-2024 End: 08-18-2024 Patient encounter procedure 08/18/2024 3:00 PM EST Office Visit [facility] [address] [facility] [address] [place] [address] [place] [address] [facility] [place] [address] [facility] Start: 08-05-2024 End: 08-05-2024 Patient encounter procedure 08/05/2024 1:20 PM EST Office Visit [facility] [address] [facility] [facility] [address] [place] [address] [place] [address] [address] [place] [address] [facility] Start: 08-03-2024 Varicella vaccination Varicell a Vaccines (1 of 2 - 13+ 2-dose series) [facility] Start: 03-20-2024 Patient encounter procedure Medical; Hospital F/U - hosp f/u [facility] d[facility]c 03/16 [facility] Start: 20-Mar-2024 13:50-04:00 ZANDER Rosales Appointment Request [facility] Start: 03-01-2024 COVID-19 Vaccine ( season) COVID-19 Vaccine ( season) [facility] Start: 03-01-2024 Influenza vaccination Influenza Vacc ine (#1) [facility] Start: 2020 Screening for malignant neoplasm of breast Mammogram [facility] Start: 2002 DTaP/Tdap/Td Vaccine s (1 - Tdap) DTaP/Tdap/Td Vaccines (1 - Tdap) [facility] Start: 2001 Screening for malignant neoplasm of cervix [facility] Start: 1999 Hepatitis A Vaccines (1 of 2 - Risk 2-dose series) Hepatitis A Vaccines (1 of 2 - Risk 2-dose series) [facility] Start: 1999 Hepatitis B Vaccines (1 of 3 - 19+ 3-dose series) Hepatitis B Vaccines (1 of 3 - 19+ 3-dose series) [facility] Start: 1998 Diabetes mellitus screening Diabetes Screening [facility] Start: 1998 Hepatitis C screening [facility] Start: 1980 HIV screening HIV Screening [facility] Start: 1980 Lipid panel Lipid Panel [facility] Start: 1980 Yearly Adult Physical Yearly Adult P hysical [facility] End: 08-01-2024 MR Liver W contrast IV [facility] Service Area Work Phone: Comment on above: Once for 1 Occurrenc es starting 08/01/2024 until 08/01/2024 Immunizations Immunization Date Immunization Notes Care Provider Fiona mcgill 07-06-2024 measles, mumps and rubella virus vaccine Abdulkadir Rosales PA-C Work [facility]: [facility] Comment on above: Site: Left ArmVIS Gi monica: * MMR Vaccine (Measles, Mumps, and Rubella) (02/03/21) 07-06-2024 measles/mumps/rubell a virus vaccine ARLENE RODRIGEZ MD [facility] Payers Date Payer Category Payer Private Health Insurance [id number] 2024 Managed Care (Private) [facility] [id number] 2024 Unknown 2024 Unknown [id number] 1980 Unknown [id number] 2.16.840.1.096547.3.579. 2.627 1980 Unknown [id number] 2.16.840.1.686030.3.579. 2.651 1980 Unknown [id number] 2.16.840.1.163736.3.579. 2.651 1980 Unknown [id number] 2.16.840.1.540161.3.579. 2.651 1980 Unknown [id number] 2.16.840.1.277018.3.579. 2.651 1980 Unknown [id number] 2.16.840.1.796237.3.579. 2.651 1980 Unknown [id number] 2.16.840.1.825296.3.579. 2.651 1980 Unknown [id number] 2.16.840.1.416314.3.579. 2.651 1980 Unknown [id number] 2.16.840.1.748597.3.579. 2.651 1980 Unknown [id number] 2.16.840.1.823954.3.579. 2.1245 1980 Unknown [id number] 2.16.840.1.080663.3.579. 2.124 1980 Unknown [id number] 2.16.840.1.115623.3.579. 2.124 1980 Unknown [id number] 2.16.840.1.440973.3.579. 2.62 1980 Unknown [id number] 2.16.840.1.712262.3.579. 2. 1980 Unknown [id number] 2.16.840.1.301285.3.579. 2. 1980 Unknown [id number] 2.16840.1.627991.3.579. 2. 1980 Unknown [id number] 2.16.840.1.632272.3.579. 2. 1980 Unknown [id number] 2.16840.1.268008.3.579. 2. 1980 Unknown [id number] 2.16.840.1.512887.3.579. 2. 1980 Unknown [id number] 2.16840.1.843409.3.579. 2. 1980 Unknown [id number] 2.16.840.1.011260.3.579. 2. 1980 Unknown [id number] 2.16.840.1.547332.3.579. 2. 1980 Unknown [id number] 2.16.840.1.736856.3.579. 2. 1980 Unknown [id number] 2.16.840.1.841150.3.579. 2. 1980 Unknown [id number] 2.16.840.1.624235.3.579. 2. 1980 Unknown [id number] 2.16.840.1.197699.3.579. 2. 1980 Unknown [id number] 2.16.840.1.763819.3.579. 2. 1980 Unknown [id number] 2.16.840.1.996312.3.579. 2. 1980 Unknown [id number] 2.16.840.1.053979.3.579. 2. 1980 Unknown [id number] 2.16.840.1.248004.3.579. 2. 1980 Unknown [id number] 2.16.840.1.985157.3.579. 2. 1980 Unknown [id number] 2.16.840.1.956250.3.579. 2. 1980 Unknown [id number] 2.16.840.1.705784.3.579. 2. 1980 Unknown [id number] 2.16.840.1.632364.3.579. 2. 1980 Unknown [id number] 2.16.840.1.633948.3.579. 2. 1980 Unknown [id number] 2.16.840.1.469673.3.579. 2. 1980 Unknown [id number] 2.16.840.1.658931.3.579. 2. 1980 Unknown [id number] 2.16.840.1.383195.3.579. 2. 1980 Unknown [id number] 2.16.840.1.190958.3.579. 2. 1980 Unknown [id number] 2.16.840.1.460835.3.579. 2. 1980 Unknown [id number] 2.16.840.1.255903.3.579. 2. 1980 Unknown [id number] 2.16.840.1.554244.3.579. 2. 1980 Unknown [id number] 2.16.840.1.309826.3.579. 2. 1980 Unknown [id number] 2.16.840.1.337771.3.579. 2. 1980 Unknown [id number] 2.16.840.1.732892.3.579. 2. 1980 Unknown [id number] 2.16.840.1.381909.3.579. 2 1980 Unknown [id number] 2.16.840.1.640753.3.579. 2. 1980 Unknown [id number] 2.16.840.1.003849.3.579. 2. 1980 Unknown [id number] 2.16.840.1.544121.3.579. 2 1980 Unknown [id number] 2.16.840.1.617379.3.579. 2. 1980 Unknown [id number] 2.16.840.1.680527.3.579. 2. 1980 Unknown [id number] 2.16.840.1.532327.3.579. 2. 1980 Unknown [id number] 2.16.840.1.147509.3.579. 2. 1980 Unknown [id number] 2.16.840.1.498952.3.579. 2 1980 Unknown [id number] 2.16.840.1.067913.3.579. 2. 1980 Unknown [id number] 2.16.840.1.257120.3.579. 2. 1980 Unknown [id number] 2.16.840.1.024524.3.579. 2. 1980 Unknown [id number] 2.16.840.1.065074.3.579. 2. 1980 Unknown [id number] 2.16.840.1.847466.3.579. 2. 1980 Unknown [id number] 2.16.840.1.724041.3.579. 2. 1980 Unknown [id number] 2.16.840.1.971942.3.579. 2. 1980 Unknown [id number] 2.16840.1.980208.3.579. 2. 1980 Unknown [id number] 2.840.1.789085.3.579. 2. 1980 Unknown [id number] 2.16840.1.465465.3.579. 2. 1980 Unknown [id number] 2.16840.1.432112.3.579. 2. 1980 Unknown [id number] 2.840.1.141024.3.579. 2. 1980 Unknown [id number] 2.840.1.103319.3.579. 2. 1980 Unknown [id number] 2.16.840.1.483660.3.579. 2. 1980 Unknown [id number] 2.16840.1.412715.3.579. 2. 1980 Unknown [id number] 2.16840.1.679672.3.579. 2. 1980 Unknown [id number] 2.16840.1.330895.3.579. 2. 1980 Unknown [id number] 2.16.840.1.548274.3.579. 2. 1980 Unknown [id number] 2.16.840.1.536095.3.579. 2. 1980 Unknown [id number] 2.16.840.1.952313.3.579. 2. 1980 Unknown [id number] 2.16.840.1.066086.3.579. 2. 1980 Unknown [id number] 2.16.840.1.755878.3.579. 2. 1980 Unknown [id number] 2.16.840.1.987766.3.579. 2. 1980 Unknown [id number] 2.16.840.1.300501.3.579. 2. 1980 Unknown [id number] 2.16.840.1.987129.3.579. 2. 1980 Unknown [id number] 2.16.840.1.850051.3.579. 2. 1980 Unknown [id number] 2.16.840.1.846862.3.579. 2. 1980 Unknown [id number] 2.16.840.1.349874.3.579. 2. 1980 Unknown [id number] 2.16.840.1.612491.3.579. 2. 1980 Unknown [id number] 2.16.840.1.001413.3.579. 2. 1980 Unknown [id number] 2.16.840.1.315990.3.579. 2. 1980 Unknown [id number] 2.16.840.1.789769.3.579. 2. 1980 Unknown [id number] 2.16.840.1.955103.3.579. 2.627 1980 Unknown [id number] 2.16.840.1.222660.3.579. 2.627 1980 Unknown [id number] 2.16.840.1.239788.3.579. 2.7 1980 Unknown [id number] 2.16.840.1.012987.3.579. 2.7 1980 Unknown [id number] 2.16.840.1.604117.3.579. 2.7 1980 Unknown [id number] 2.16.840.1.066369.3.579. 2. 1980 Unknown [id number] 2.16.840.1.717112.3.579. 2.7 1980 Unknown [id number] 2.16.840.1.594827.3.579. 2. 1980 Unknown [id number] 2.16.840.1.630962.3.579. 2.7 1980 Unknown [id number] 2.16.840.1.399107.3.579. 2.627 Social History Date Type Detail Facility Tobacco Use: Tobacco Use: ; N ever smoker. [facility]. Female [facility] Start: 03-25-2024 End: 08-05-[address] [facility] Tobacco Nicotine Use: denies. [facility] Tobacco smoking status [facility] Start: 02-07-2024 Sex Female (finding) [facility] Tobacco smoking status [facility] Tobacco smoking consumption unknown [facility] Work Phone: Start: 1980 Sex assigned at Not on file [facility] Work Phone: Start: 08-05-2024 Gender identity Not on file [facility] Work Phone: Start: 07-22-2024 End: 08-18-2024 Exposure to SARS-CoV-2 (event) Not sure [facility] Start: 08-05-2024 Tobacco use and exposure Smokeless tobacco non-user [facility] Work Phone: Start: 08-05-2024 Alcoholic beverage intake Lifetime non-drinker (finding) [facility] Work Phone: Start: 08-05-2024 History of Social function [facility] Work Phone: Start: 04-22-2025 End: 05-06-2025 No, per patient [facility] NEGATED: Highlighted rowStart: NINF History of tobacco use Passive smoker [facility] Work Phone: Medical Equipment Procedure Code Equipment [...] 05-06-2025 Functional Status Awake, Up ad hayley [facility] 05-04-2025 Functional Status ID band on, Call device within reach [facility] 04-22-2025 Functional Status Awake [facility] 04-22-2025 Functional Status ice on [facility] 04-22-2025 Functional Status Maintained [facility] 04-19-2025 Functional Status [facility] 11-05-2024 Functional Status Awake [facility] 11-03-2024 Functional Status [facility] 11-03-2024 Functional Status [facility] 11-03-2024 Functional Status Repositions self [facility] 10-22-2024 Functional Status Sensory Deficits None [facility] 10-20-2024 Functional Status Up ad hayley [facility] 10-20-2024 Functional Status [facility] 10-20-2024 Functional Status [facility] 10-20-2024 Functional Status [facility] 10-08-2024 Functional Status Awake [facility] 10-06-2024 Functional Status ID band on, Call device within reach [facility] 09-30-2024 Functional Status ID band on, Allergy Band on, Bed in low position, Wheels locked, Upper/Half-Length side-rails up [facility] 09-24-2024 Functional Status ID band on, Call device within reach, personal items within reach, Visitor at bedside, Non-Slip footwear [facility] 09-22-2024 Functional Status Safety level maintained [facility] 09-22-2024 Functional Status Awake [facility] 09-22-2024 Functional Status [facility] 09-16-2024 Functional Status ID band on, Allergy Band on [facility] 08-31-2024 Functional Status Done [facility] 08-30-2024 Functional Status [facility] 08-30-2024 Functional Status bilateral knee high patrizia lied/on [facility] 08-30-2024 Functional Status [facility] 08-30-2024 [facility] Status [facility] 08-29-2024 Functional Status [facility] 08-29-2024 Functional Status [facility] 08-29-2024 Functional Status [facility] 08-29-2024 Functional Status [facility] 08-29-2024 Functional Status Supervision [facility] 08-29-2024 Functional Status [facility] 08-28-2024 Functional Status Dinner Percent 50 [facility] 08-28-2024 Functional Status Patient Identified Iden tification band [facility] 08-28-2024 Functional Status NPO Status Maintained A [facility] 08-28-2024 Functional Status [facility] 08-28-2024 Functional Status [facility] 08-27-2024 Functional Status Linen Change Done [facility] 08-27-2024 Functional Status Lunch Percent 50 [facility] 08-27-2024 Functional Status [facility] 08-27-2024 Functional Status [facility] 08-26-2024 Functional Status [facility] 08-26-2024 Functional Status [facility] 08-26-2024 Functional Status [facility] 08-25-2024 Functional Status [facility] 08-24-2024 Functional Status [facility] 08-24-2024 Functional Status [facility] 08-24-2024 Functional Status [facility] 08-23-2024 Functional Status Skin Care Prev entative Intervention(s) heel(s)s elevated [facility] 08-23-2024 Functional Status [facility] 08-23-2024 Functional Status [facility] 08-22-2024 Functional Status [facility] 08-21-2024 Functional Status Ambulation Distance 20 [facility] 08-20-2024 Functional Status [facility] 08-19-2024 Functional Status Sensory Deficits None A [facility] 08-18-2024 Functional Status Up to chair [facility] 08-06-2024 Functional Status Awake [facility] 08-04-2024 Functional Status Up ad hayley [facility] 08-04-2024 Functional Status [facility] 08-04-2024 Functional Status [facility] 07-23-2024 Functional Status Awake [facility] 07-23-2024 Functional Status [facility] 07-23-2024 Functional Status Maintained [facility] 2024 Functional Status Sensory Deficits None A [facility] 07-16-2024 Functional Status ID band on, Visitor at bedside [facility] 07-16-2024 Functional Status [facility] 07-15-2024 Functional Status Sensory Deficits None A [facility] 04-15-2024 Functional Status ID band on, Visitor at bedside, Safety level maintained [facility] 04-02-2024 Functional Status Sensory Deficits None A [facility] 03-23-2024 Functional Status ID band on [facility] 03-16-2024 Functional Status Room check performed [facility] 03-16-2024 Functional Status [facility] 03-16-2024 Functional Status [facility] 03-16-2024 Functional Status [facility] 03-15-2024 Functional Status [facility] 03-15-2024 Functional Status Independent [facility] 03-15-2024 Functional Status [facility] 03-14-2024 [...] [facility] 03-09-2024 Functional Status Multilevel home [facility] 03-09-2024 Functional Status [facility] 03-09-2024 Functional Status [facility] 03-09-2024 Functional Status Sensory Deficits None A [facility] Mental Status Date Assessment Result Facility 05-06-2025 Mental Status Orientation Oriented x 4 [facility] 05-04-2025 Mental Status Orientation Oriented x 4 [facility] 04-22-2025 Mental Status Oriented x 4 [facility] 04-22-2025 Mental Status [facility] 11-05-2024 Mental Status Orientation Oriented x 4 [facility] 11-03-2024 Mental Status Orientation Oriented x 4 [facility] 10-22-2024 Mental Status Orientation Oriented x 4 [facility] 10-20-2024 Mental Status Orientation Oriented x 4 [facility] 10-06-2024 Mental Status Orientation Oriented x 4 [facility] 09-30-2024 Mental Status Orientation Oriented x 4 [facility] 09-24-2024 Mental Status Orientation Oriented x 4 [facility] 09-16-2024 Mental Status Orientation Oriented x 4 [facility] 08-31-2024 Mental Status Oriented x 4 [facility] 08-30-2024 [facility] Status [facility] 08-18-2024 Mental Status Orientation Oriented x 4 [facility] 08-06-2024 Mental Status Orientation Oriented x 4 [facility] 08-04-2024 Mental Status Orientation Oriented x 4 [facility] 07-23-2024 Mental Status [facility]ed x [facility] 07[facility] Status [facility] 07-16-2024 Mental Status Orientation Oriented x 4 [facility] 07-16-2024 [facility] 03-23-[facility]24 Mental Status Orientation Oriented x 4 [facility] 03-16-2024 Mental Status Orientation Oriented x 4 [facility] 03-16-2024 [facility] 03-15-[facility]24 Mental Status [facility] 03-15-2024 Mental Status [facility] Clinical Notes 03-09-2024 to 05-06-2025 Note Date [...] aware that I should contact my doctor. Patient/Pretzel Twister Signature: Date/Time: Relationship to Patient: Witness Name/Signature: Date/Time: [facility] 05-04-2025 Summary of episod e note CLARISSE [...] w/ Contrast 05/05/2025 02:00 PM EST Radiology [id number] Abd/Pelvis w/ IV Contrast Only 05/05/2025 02:30 PM EST Radiology [id number] Confirmed INF/OSP Labwork 05/06/2025 01:00 PM EST Infusion Therapy Confirmed INF Chemo: Infusion Pump Discontinue 15 05/06/2025 01:15 PM EST Infusion Therapy Confirmed GS OV Post Op 05/11/2025 09:15 AM EST ARLENE RODRIGEZ MD [facility] Confirmed INF/OSP Labwork 05/18/2025 07:45 [...] Treatm 06/29/2025 08:30 AM EST FRANCES MCKEON UNDERCUTTER 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 FOLDER [facility] Confirmed INF Chemo: Infusion 240 min (4 hours) 06/29/2025 09:00 AM EST Infusion Therapy Confirmed INF/OSP Labwork 07/01/2025 01:00 PM EST Infusion Therapy Confirmed INF Chemo: Infusion Pump Discontinue 15 07/01/2025 01:15 PM EST Infusion Therapy Confirmed CT Abd/Pelvis w/ IV Contrast Only 07/08/2025 10:00 AM EST Radiology 377 [id number] 2720 Confirmed yyCT Chest w/ Contrast 3 07/08/2025 10:15 AM EST Radiology 976 086 1841 Confirmed INF/OSP Labwork 07/13/2025 07:45 AM EST Infusion Therapy Confirmed HEM ONC OV Follow Up w/ Active Treatme 07/13/2025 08:30 AM EST ROSEANN LUNDBERG MD [facility] Confirmed INF Chemo: Infusion [...] are many vaccine clinic locations within the [facility]. For locations and available times, please visit www.gettheshot.coronavirus.[place] .gov/. It is important to note that some COVID mobile vaccine clinics are held outdoors and may be canceled in rainy or stormy conditions. To learn more about pediatric vaccinations (ages 5-11), we invite you to visit the [facility] webpage. https://www.akronSokos.org/ pages/4812-Sohrs-Ncjchccoraj-Fr kmqvvmak-Lricz-Wuacjnhfm.html To learn more about the COVID-19 vaccine, we invite you to visit the CDC website for a list of frequently asked questions. https://www.cdc.gov/coronavirus /2019-ncov/vaccines/faq.html [facility] Patient Portal Access Instructions: Stay connected with your healthcare team and access your personal medical information anytime with the [facility] Patient Portal.If you would like a full copy of your medical records, please contact the [facility] Medical Records Department, Saturday through Saturday between 8a.m. and 4:30p.m. Please follow the directions below to access the portal: 1.Access the email account you provided upon registration to the hospital.2.Look for an invitation email from [facility].3.Open the email and access the invitation link: Accept Invitation to [facility]4.Fill in the required wetzel to create your account. To access your account, visit [email or web address] or scan the Paragon 28 code above. Click the blue button labeled [...] you will allow to register on the [facility] Patient Portal for access to your information. You can also access the [facility] Patient Portal on the Tactilize. Simply click on Health Records under Health Data and then click on the AfterShip logo. HOW TO SAFELY DISPOSE OF PRESCRIPTION [...] Call your local pharmacy or go to [email or web address].OdinOtvet/[email or web address] to find one close to you.3.Make use of household items: Use cat litter or old coffee grounds to dispose medications if other options are not available. Mix your drugs with these household products, seal them in an airtight container and throw it into the garbage. Call [facility]: [phone] to be sure your drugs can be [...] aware that I should contact my doctor. Patient/Pretzel Twister Signature: Date/Time: Relationship to Patient: Witness Name/Signature: Date/Time: [facility] 04-30-2025 Note HNO ID: [id number] Author: BONIFACIO LOMBARDI, DO Service: ? Author [...] in March 2024. She was admitted to [facility] where CT demonstrated a large abscess with extension into the rectouterine pouch. There was evidently concern for obstructive uropathy as well. She was treated with IV antibiotics and CT guided drainage of the abscess. Rectal bleeding continued and bowel movements were noted to be irregular. A CT scan of the abdomen pelvis on 04/27/2024 done at [facility] demonstrated a 2-1/2 cm hypodense focus in [...] FOLFOX 08/05/2024. She had been seen at [facility] for second opinion. An MRI performed with [...] extraction 04/13/2025. Port replaced 04/22/2025. 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 No past medical history on file. [...] ?C (98.2 ?F), (more content not included)... [facility] 04-22-2025 Hospital Discharg e instructions Patient Education 04/22/2025 09:18:42 [facility] Discharge Instructions Template (03/2018) (CUSTOM) [facility]EN [...] us better serve our patients. Form: 1522 (85625) R: 10/0704/22/2025 09:17:21 Implanted Port Insertion, Care [...] port is placed, you will get a webbing inspector's information card. The card has information about [...] and water are not available, use hand food production supervisor. ?Change your dressing as told by your [...] that it is safe. General instructions Take hoiu-sdo-pnzjzju and prescription medicines only as told by [...] by your health care provider. Keep the webbing inspector's information card with you at all times. [...] 04/07/2014 Document Revised: 01/13/2019 Document Reviewed: 01/13/2019 GreenIQ Patient Education 2020 Push Technology. Follow Up Care 03/30/2025 09:40:04 With:ARLENE RODRIGEZ MD, Surgery Address: [address] [place] [address] [address] [place] [address]- [phone] When: Unknown Comments:Follow-up as scheduled Follow-up as needed [facility] 04-22-2025 Summary of episod e note Discharge Instructions Thank you for allowing [facility] to assist you with your healthcare needs. The following is important discharge information regarding your hospital visit. Your Care Team ABDULKADIR ROSALES PA-C What to do next Scheduled Follow-Up Appointments Appointment Type When With Where Contact Information StatusINF/OSP Labwork 05/04/2025 07:45 AM EST Infusion Therapy Confirmed HEM ONC OV Follow Up w/ Active Treatme 05/04/2025 08:30 AM EST ROSEANN LUNDBERG MD [facility] Confirmed INF Chemo: Infusion 240 min (4 hours) 05/04/2025 09:00 AM EST Infusion Therapy Confirmed INF/OSP Labwork 05/06/2025 01:00 PM EST Infusion Therapy Confirmed INF Chemo: Infusion Pump Discontinue 15 05/06/2025 01:15 PM EST Infusion Therapy Confirmed GS OV Post Op 05/11/2025 09:15 AM EST ARLENE RODRIGEZ MD [facility] Surgery Confirmed INF/OSP Labwork 05/18/2025 07:45 AM EST Infusion Therapy Confirmed HEM ONC OV Follow Up w/PATRIZIA Active Treatm 05/18/2025 08:30 AM EST SHEA CLAY APRN-CRIMINAL INVESTIGATOR [facility] Confirmed INF Chemo: Infusion [...] 06/01/2025 08:30 AM EST ROSEANN LUNDBERG MD [facility] Confirmed INF Chemo: Infusion [...] Treatm 06/29/2025 08:30 AM EST FRANCES MCKEON UNDERCUTTER 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 FOLDER [facility] Confirmed INF Chemo: Infusion 240 min (4 hours) 06/29/2025 09:00 AM EST Infusion Therapy Confirmed INF/OSP Labwork 07/01/2025 01:00 PM EST Infusion Therapy Confirmed INF Chemo: Infusion Pump Discontinue 15 07/01/2025 01:15 PM EST Infusion Therapy Confirmed CT Abd/Pelvis w/ IV Contrast Only 07/08/2025 10:00 AM EST Radiology 338 [id number] 3029 Confirmed yyCT Chest w/ Contrast 3 07/08/2025 10:15 AM EST Radiology 850 004 8736 Confirmed INF/OSP Labwork 07/13/2025 07:45 AM EST Infusion Therapy Confirmed HEM ONC OV Follow Up w/MD Active Treatme 07/13/2025 08:30 AM ROSEANN THOMPSON MD [facility] Confirmed INF Chemo: Infusion 240 min (4 hours) 07/13/2025 09:00 AM EST Infusion Therapy Confirmed INF/OSP Labwork 07/15/2025 01:00 PM EST Infusion Therapy Confirmed INF Chemo: Infusion Pump Discontinue 15 07/15/2025 01:15 PM EST Infusion Therapy Confirmed Follow Up Appointments Follow Up with ARLENE RODRIGEZ MD, Surgery Where:[address] [facility] [address] [place] [address]- [phone] Additional Information: Follow-up as scheduled Follow-up as [...] us better serve our patients. Form: 1522 (89594) R: 10/07 Implanted Port Insertion, Care After [...] port is placed, you will get a webbing inspector's information card. The card has information about [...] and water are not available, use hand food production supervisor. ? Change your dressing as told by [...] that it is safe. General instructions Take itkf-uhs-bcnasyw and prescription medicines only as told by [...] by your health care provider. Keep the webbing inspector's information card with you at all times. [...] Document Reviewed: 01/13/2019 Elsevier Patient Education 2020 [employer] Additional Information VACCINATE! IT SAVES LIVES! Members of the community who have not yet received the COVID-19 vaccine and would like to receive it can visit one of [facility] vaccine clinics. There are many vaccine clinic locations within the [facility]. For locations and available times, please visit https://gettheshot.coronavirus. [place].gov/. It is important to note that some COVID mobile vaccine clinics are held outdoors and may be canceled in rainy or stormy conditions. To learn more about pediatric vaccinations (ages 5-11), we invite you to visit the [facility] webpage. https://www.[facility].org/ pages/9602-Rlrew-Guzotskjqhd-Fr zsgdezkz-Sehay-Gmvyqpeii.html To learn more about the COVID-19 vaccine, we invite you to visit the CDC website for a list of frequently asked questions.https://www.cdc.gov/c oronavirus/2019-ncov/vaccines/f aq.html [facility] Patient Portal Access Instructions: Stay connected with your healthcare team and access your personal medical information anytime with the [facility] Patient Portal. Please follow the directions below to create your [facility] account: 1.Access the email account you provided upon registration to the hospital/physician office.2.Look for an invitation email from [facility].3.Open the email and access the invitation link: Accept Invitation to [facility].4.Fill in the required wetzel to create your account. To access your account, visit [email or web address] or scan the Paragon 28 code above. Click the blue button labeled [...] you will allow to register on the [facility] Patient Portal for access to your information. You can also access the [facility] Patient Portal on the [facility] patrizia. Simply click on Patient Portal and then log into your account. If you would like to receive a full copy of your medical records, please contact the [facility] Medical Records Department by calling [phone], Saturday through Saturday between 8 a.m. and [...] Call your local pharmacy or go to http://ResearchGate.OdinOtvet/6A2Sd8t to find one close to you.3.Make use of household items: Use cat litter or old coffee grounds to dispose medications if other options are not available. Mix your drugs with these household products, seal them in an airtight container and throw it into the garbage. Call [facility]: [phone] to be sure your drugs can be [...] aware that I should contact my doctor. Patient/Pretzel Twister Signature: Date/Time: Relationship to Patient: Witness Name/Signature: Date/Time: [facility] 04-22-2025 Anesthesiology Consult note Patient: CLARISSE PEGUERO [...] HELEN ARGUELLO MD on 04/22/2025 08:50 AM [facility] 04-22-2025 Note Exam Date Time Procedure Performing Provider Status 04/22/25 8:39 AM XR Fluoro Venous Access Device JODI TO MD; Auth (Verified) [id number] ORIGINAL HISTORY: Right-sided port COMPARISON: No FLUOROSCOPY [...] 04/22/2025 8:58:31 AM Ordering Provider: ARLENE [facility]IGEZ [id number] History and physical note Date of Service 04/22/25 History and Physical Update I have examined the patient; reviewed the History and Physical and there are no changes to the History and Physical unless noted below. Digitally Signed by ARLENE RODRIGEZ MD on 04/22/2025 06:56 AM [id number] Anesthesiology Consult note Patient: CLARISSE PEGUERO Age: [...] Medical Port-A-Cath in place / SNOMED CT 4785977567 / Confirmed S/P colostomy / SNOMED CT 752643581 / Confirmed Heartburn / SNOMED CT 86534442 / Confirmed Bilateral hip pain / SNOMED CT 08125564 / Confirmed History of DVT of lower extremity / SNOMED CT 9894626665 / Confirmed Hydronephrosis, right / SNOMED CT 60998964 / Confirmed Chemotherapy induced neutropenia / SNOMED CT 9381431364 / Confirmed, Active Problems (18) Acid reflux [...] history: EXPLORATORY LAPAROTOMY WITH DIVERTING LOOP COLOSTOMY ([id number]) on 08/28/2024 at 44 Years. Comments: 04/19/2025 11:09 EDT - MELA Glaser COLOSTOMY Drain, device ([id number]) on 08/26/2024 at 44 Years. insertion of left chest port using fluoroscopic and ultrasound guidance (133619414) on 07/23/2024 at44 Years. Extraction of wisdom tooth (547966072). Colonoscopy (342602594). Biopsy of liver (834510451). Social History: Social & Psychosocial Habits Alcohol [...] Signs (last 24 hrs) Last Charted Temp Xunzlpbn37.8 DegC (APR 22 05:36) BYG511 mmHg (APR 22 05:36) DBP68 mmHg (APR 22 05:36) Measurements from flowsheet : Measurements 04/22/2025 5:49 EDT Height 160.0 cm Admission Weight 99.8 kg [place] Body Weight 52.38 kg Type of Scale [...] Method Explanation, Printed materials Preferred Spoken Language Surinamese Preferred Written Language Surinamese Family/Caregiver Prefer Spoken Language Surinamese Family/Caregiver Prefer Written Language Surinamese Surgical Site Infection Prevention SSI FAQ provided Infection Prevention Teaching Evaluation Verbalizes/Nonverbally indicates understanding Pre Procedure/Surgery Education Appropriate expectations, Bring glasses, hearing aids, contact lenscase, Date/Time of procedure/surgery, Hospital gown requirement worn to OR, Leave valuables, jewelry, wedding ring at home, Meds to take or hold, NPO, 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 for discharge Procedure/Surgical Teaching Evaluation Verbalizes/Nonverbally indicates understanding Safety Measures Education Fall prevention, Call light use, Ambulation device use, Non-slip footwearuse Safety Teaching Evaluation Verbalizes/Nonverbally indicates understanding 04/22/2025 5:54 EDT Colostomy Left GI Ostomy Activity: Present on admission, System intact GI Ostomy Stoma Description: [facility] GI Ostomy Equipment and Supplies: Pouch, drainable 04/22/2025 5:49 EDT Height 160.0 cm Admission Weight 99.8 kg [place] Body Weight 52.38 kg Type of Scale Used Bed scale Primary Pain Intensity 0 Pain Scale Type 0-10 Pain scale Respirations Unlabored Respiratory Pattern Regular Breath Sounds Auscultated Anterior only All Lobes Breath Sounds Clear Abdomen Description Non-distended Swallowing Disorder None Bowel Sounds All Quadrants Present Skin Description [place], Dry Skin Temperature Warm Neurological Symptoms Patient [...] #2 We May Share PHI Ita Felder [phone] Designated Person #2 Relationship Sibling Additional Designated Person Share PHI Radha Pierce (cousin) [phone] Privacy Restrictions Requested None Status No, per [...] after midnight, No makeup, No jewelry, Responsible Democrat, Two adults to accompany patients 0-12 years of age, Aware of surgery location, 1 bottle CHG wash with instructions given, No ordered medications, Instructed to bring home medications, Clear liquids until arrival SN - Preprocedure Comments Spoke with patient, Verbalizes/Nonverbally indicates understanding Barriers to Learning None evident Teaching Method Demonstration, Explanation, Printed materials, Teach-back, Video/Educational TV Preferred Spoken Language Surinamese Preferred Written Language Surinamese Teaching Evaluation Verbalizes/Nonverbally indicates understanding Safety Brochure [...] after midnight, No makeup, No jewelry, Responsible Democrat, Two adults to accompany patients 0-12 years of age, Aware of surgery location, 1 bottle CHG wash with instructions given, No ordered medications, Instructed to bring home medications, Clear liquids until arrival (Modified) Admission Note-Nursing Patient History PreTest (Modified) . Assessment and Plan [place] Society of Anesthesiologists (ASA) physical status classification: [...] IRMA IRIZARRY MD on 04/22/2025 07:12 AM [id number] Nurse Progress note Patient appeared at infusion [...] still receive a growth factor injection at [place] on Saturday, and RN confirmed that that appointment should be kept as planned. Digitally Signed by MELA Mercado on 03/24/2025 03:39 PM [id number] Summary of episode note CLARISSE PEGUERO :1980 [...] Contrast Only 04/01/2025 08:30 AM EDT Radiology [id number] Chest w/ Contrast 04/01/2025 08:45 AM EDT Radiology 461 107 9256 Confirmed INF/OSP Labwork 04/06/2025 08:45 AM EDT Infusion Therapy Confirmed HEM ONC OV Follow Up w/ Active Treatme 04/06/2025 09:30 AM EDT ROSEANN LUNDBERG MD [facility] Confirmed INF Chemo: Infusion [...] to receive it can visit one of [facility] vaccine clinics. There are many vaccine clinic locations within the [facility]. For locations and available times, please visit www.gettheshot.coronavirus.[place].gov/. It is important to note that some COVID mobile vaccine clinics are held outdoors and may be canceled in rainy or stormy conditions. To learn more about pediatric vaccinations (ages 5-11), we invite you to visit the [facility] webpage. https://www.Simply Zestys.org/pages/8443-Azmgj-Ttuelemibmm-Qzfogxhpxl-Shiji-Jsj stions.htmlTo learn more about the COVID-19 vaccine, we invite you to visit the CDC website for a list of frequently asked questions. https://www.cdc.gov/coronavirus/2019-ncov/vaccines/faq.html [facility] Patient Portal Access Instructions: Stay connected with your healthcare team and access your personal medical information anytime with the [facility] Patient Portal.If you would like a full copy of your medical records, please contact the [facility] Medical Records Department, Saturday through Saturday between 8a.m. and 4:30p.m. Please follow the directions below to access the portal: 1.Access the email account you provided upon registration to the hospital.2.Look for an invitation email from [facility].3.Open the email and access the invitation link: Accept Invitation to [facility]4.Fill in the required wetzel to create your account. To access your account, visit [email or web address] or scan the QR code above. Click the [facility] Access Patient Portal and then log in [...] you will allow to register on the [facility] Patient Portal for access to your information. You can also access the [facility] Patient Portal on the [employer] patrizia. Simply click on Health Records under Health Data and then click on the AfterShip logo. HOW TO SAFELY DISPOSE OF PRESCRIPTION [...] Call your local pharmacy or go to http://ResearchGate.OdinOtvet/8J2Vj8n to find one close to you.3.Make use of household items: Use cat litter or old coffee grounds to dispose medications if other options arenot available. Mix your drugs with these household products, seal them in an airtight container andthrow it into the garbage. Call [facility]: [phone] to be sure your drugs can be [...] that I should contact my d julitoor. Patient/Pretzel Twister Signature: Date/Time: Relationship to Patient: Witness Name/Signature: Date/Time[id number] Summary of episode note CLARISSE PEGUERO :1980 [...] that I should contact my d julitoor. Patient/Pretzel Twister Signature: Date/Time: Relationship to Patient: Witness Name/Signature: Date/Time: [id number] Summary of episode note CLARISSE PEGUERO :1980 [...] Contrast Only 04/01/2025 08:30 AM EDT Radiology [id number] Chest w/ Contrast 04/01/2025 08:45 AM EDT Radiology 612 [id number] 6148 Confirmed HEM ONC OV Follow Up w/ Active Treatme 04/06/2025 09:30 AM EDT ROSEANN LUNDBERG MD [facility] Confirmed Test Results .Estimated [...] to receive it can visit one of [facility] vaccine clinics. There are many vaccine clinic locations within the [facility]. For locations and available times, please visit www.gettheshot.[facility].[place].gov/. It is important to note that some COVID mobile vaccine clinics are held outdoors and may be canceled in rainy or stormy conditions. To learn more about pediatric vaccinations (ages 5-11), we invite you to visit the [facility] webpage. https://www.[facility].org/pages/5611-Lmdka-Hwjhksudlas-Mfjptxhkqp-Fmebi-Fct stions.htmlTo learn more about the COVID-19 vaccine, we invite you to visit the CDC website for a list of frequently asked questions. https://www.cdc.gov/coronavirus/2019-ncov/vaccines/faq.html [facility] Patient Portal Access Instructions: Stay connected with your healthcare team and access your personal medical information anytime with the [facility] Patient Portal.If you would like a full copy of your medical records, please contact the [facility] Medical Records Department, Saturday through Saturday between 8a.m. and 4:30p.m. Please follow the directions below to access the portal: 1.Access the email account you provided upon registration to the [facility].2.Look for an invitation email from [facility].3.Open the email and access the invitation link: Accept Invitation to [facility]4.Fill in the required wetzel to create your account. Sign into [email or web address] with your username and password that you [...] you will allow to register on the [facility] Patient Portal for access to your information. You can also access the [facility] Patient Portal on the Tactilize. Simply click on Health Records under Brandleta and then click on the AfterShip logo. HOW TO SAFELY DISPOSE OF PRESCRIPTION [...] Call your local pharmacy or go to http://ResearchGate.OdinOtvet/2G4Kp2a to find one close to you.3.Make use of household items: Use cat litter or old coffee grounds to dispose medications if other options arenot available. Mix your drugs with these household products, seal them in an airtight container andthrow it into the garbage. Call [facility]: [phone] to be sure your drugs can be [...] that I should contact my david kumar. Patient/Pretzel Twister Signature: Date/Time: Relationship to Patient: Witness Name/Signature: Date/Time: [id number] Summary of episode note CLARISSE PEGUERO :1980 [...] that I should contact my d stacy. Patient/Pretzel Twister Signature: Date/Time: Relationship to Patient: Witness Name/Signature: Date/Time: [id number] Summary of episode note CLARISSE PEGUERO :1980 [...] Treatm 03/09/2025 09:30 AM EDT FRANCES MCKEON UNDERCUTTER 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 FOLDER [facility] Confirmed INF Chemo: Infusion 240 min (4 hours) 03/09/2025 10:00 AM EDT Infusion Therapy Confirmed INF/OSP Labwork 03/11/2025 08:45 AM EDT Infusion Therapy Confirmed INF Chemo: Infusion Pump Discontinue 03/11/2025 09:00 AM EDT Infusion Therapy Confirmed CT Abd/Pelvis w/ IV Contrast Only 04/01/2025 08:30 AM EDT Radiology [id number] Chest w/ Contrast 04/01/2025 08:45 AM EDT Radiology [phone] Confirmed HEM ONC OV Follow Up w/MD Active Treatme 04/06/2025 09:30 AM EDT ROSEANN LUNDBERG MD [facility] Confirmed Medications What How [...] to receive it can visit one of [facility] vaccine clinics. There are many vaccine clinic locations within the [facility]. For locations and available times, please visit www.gettheshot.coronavirus.[place].gov/. It is important to note that some COVID mobile vaccine clinics are held outdoors and may be canceled in rainy or stormy conditions. To learn more about pediatric vaccinations (ages 5-11), we invite you to visit the [facility] webpage. https://www.[facility].org/pages/4707-Ughzb-Weepbpsowue-Vtulppttye-Lgivn-Tiu stions.htmlTo learn more about the COVID-19 vaccine, we invite you to visit the CDC website for a list of frequently asked questions. https://www.cdc.gov/coronavirus/2019-ncov/vaccines/faq.html [facility] Patient Portal Access Instructions: Stay connected with your healthcare team and access your personal medical information anytime with the [facility] Patient Portal.If you would like a full copy of your medical records, please contact the [facility] Medical Records Department, Saturday through Saturday between 8a.m. and 4:30p.m. Please follow the directions below to access the portal: 1.Access the email account you provided upon registration to the [facility].2.Look for an invitation email from [facility].3.Open the email and access the invitation link: Accept [facility]itation to [place].Fill in the required wetzel to create your account. Sign into [email or web address] with your username and password that you [...] you will allow to register on the [facility] Patient Portal for access to your information. You can also access the [facility] Patient Portal on the Tactilize. Simply click on Health Records under ZazengoData and then click on the AfterShip logo. HOW TO SAFELY DISPOSE OF PRESCRIPTION [...] Call your local pharmacy or go to http://bit.OdinOtvet/4N7Ws0s to find one close to you.3.Make use of household items: Use cat litter or old coffee grounds to dispose medications if other options arenot available. Mix your drugs with these household products, seal them in an airtight container andthrow it into the garbage. Call [facility]: [phone] to be sure your drugs can be [...] that I should contact my d octor. Patient/Pretzel Twister Signature: Date/Time: Relationship to Patient: Witness Name/Signature: Date/Time: [id number] Summary of episode note CLARISSE PEGUERO :1980 [...] 03/09/2025 09:30 AM EDT FRANCES MCKEON APRN-YUSRA [facility] Confirmed INF Chemo: Infusion 240 min (4 hours) 03/09/2025 10:00 AM EDT Infusion Therapy Confirmed INF/OSP Labwork 03/11/2025 08:45 AM EDT Infusion Therapy Confirmed INF Chemo: Infusion Pump Discontinue 15 03/11/2025 09:00 AM EDT Infusion Therapy Confirmed CT Abd/Pelvis w/ IV Contrast Only 04/01/2025 08:30 AM EDT Radiology [address] Chest w/ Contrast 04/01/2025 08:45 AM EDT Radiology 095 819 7326 Confirmed HEM ONC OV Follow Up w/ [...] to receive it can visit one of [facility] vaccine clinics. There are many vaccine clinic locations within the [facility]. For locations and available times, please visit www.gettheshot.coronavirus.[place].gov/. It is important to note that some COVID mobile vaccine clinics are held outdoors and may be canceled in rainy or stormy conditions. To learn more about pediatric vaccinations (ages 5-11), we invite you to visit the [facility] webpage. https://www.[facility].org/pages/3694-Tsizt-Qknrzyvzfld-Kzmmlchpse-Lpvpg-Pyr stions.htmlTo learn more about the COVID-19 vaccine, we invite you to visit the CDC website for a list of frequently asked questions. https://www.cdc.gov/coronavirus/2019-ncov/vaccines/faq.html [facility] Patient Portal Access Instructions: Stay connected with your healthcare team and access your personal medical information anytime with the [facility] Patient Portal.If you would like a full copy of your medical records, please contact the [facility] Medical Records Department, Saturday through Saturday between 8a.m. and 4:30p.m. Please follow the directions below to access the portal: 1.Access the email account you provided upon registration to the [facility].2.Look for an invitation email from [facility].3.Open the email and access the invitation link: Accept Invitation to [facility]4.Fill in the required wetzel to create your account. Sign into [email or web address] with your username and password that you [...] you will allow to register on the [facility] Patient Portal for access to your information. You can also access the [facility] Patient Portal on the Tactilize. Simply click on Health Records under MyMedMatch and then click on the AfterShip logo. HOW TO SAFELY DISPOSE OF PRESCRIPTION [...] Call your local pharmacy or go to http://ResearchGate.OdinOtvet/1N2Ky9y to find one close to you.3.Make use of household items: Use cat litter or old coffee grounds to dispose medications if other options arenot available. Mix your drugs with these household products, seal them in an airtight container andthrow it into the garbage. Call [facility]: [phone] to be sure your drugs can be [...] that I should contact my d octor. Patient/Pretzel Twister Signature: Date/Time: Relationship to Patient: Witness Name/Signature: Date/Time: [id number] Summary of episode note SUDHIRCLARISSE :1980 Visit [...] Treatm 03/09/2025 09:30 AM EDT FRANCES MCKEON APRN-WASHCLOTH FOLDER [facility] Confirmed INF Chemo: Infusion 240 min (4 hours) 03/09/2025 10:00 AM EDT Infusion Therapy Confirmed INF/OSP Labwork 03/11/2025 08:45 AM EDT Infusion Therapy Confirmed INF Chemo: Infusion Pump Discontinue 15 03/11/2025 09:00 AM EDT Infusion Therapy Confirmed CT Abd/Pelvis w/ IV Contrast Only 04/01/2025 08:30 AM EDT Radiology [address] Chest w/ Contrast 04/01/2025 09:30 AM EDT Radiology 724 593 0842 Confirmed HEM ONC OV Follow Up w/ [...] to receive it can visit one of [facility] vaccine clinics. There are many vaccine clinic locations within the [facility]. For locations and available times, please visit www.gettheshot.coronavirus.[place].gov/. It is important to note that some COVID mobile vaccine clinics are held outdoors and may be canceled in rainy or stormy conditions. To learn more about pediatric vaccinations (ages 5-11), we invite you to visit the [facility] webpage. https://www.[facility].org/pages/8897-Pbuaa-Kgnhdtnfqnn-Axnhmcwynb-Cuhmd-Ytr stions.htmlTo learn more about the COVID-19 vaccine, we invite you to visit the CDC website for a list of frequently asked questions. https://www.cdc.gov/coronavirus/2019-ncov/vaccines/faq.html [facility] Patient Portal Access Instructions: Stay connected with your healthcare team and access your personal medical information anytime with the [facility] Patient Portal.If you would like a full copy of your medical records, please contact the [facility] Medical Records Department, Saturday through Saturday between 8a.m. and 4:30p.m. Please follow the directions below to access the portal: 1.Access the email account you provided upon registration to the [facility].2.Look for an invitation email from [facility].3.Open the email and access the invitation link: Accept Invitation to [facility]4.Fill in the required wetzel to create your account. Sign into [email or web address] with your username and password that you [...] you will allow to register on the [facility] Patient Portal for access to your information. You can also access the [facility] Patient Portal on the [employer] patrizia. Simply click on Health Records under ZazengoData and then click on the [facility] logo. [...] Call your local pharmacy or go to http://bit.OdinOtvet/1O7Ur6x to find one close to you.3.Make use of household items: Use cat litter or old coffee grounds to dispose medications if other options arenot available. Mix your drugs with these household products, seal them in an airtight container andthrow it into the garbage. Call [facility]: [phone] to be sure your drugs can be [...] that I should contact my d octor. Patient/Pretzel Twister Signature: Date/Time: Relationship to Patient: Witness Name/Signature: Date/Time: [id number] Summary of episode note CLARISSE PEGUERO :1980 [...] that I should contact my d octor. Patient/Pretzel Twister Signature: Date/Time: Relationship to Patient: Witness Name/Signature: Date/Time: [id number] Summary of episode note CLARISSE PEGUERO :1980 [...] 02/02/2025 10:00 AM EDT ARLENE RODRIGEZ MD [place] [facility] Confirmed INF/OSP Labwork 02/09/2025 08:45 AM EDT Infusion Therapy Confirmed HEM ONC OV Follow Up w/UNDERCUTTER OPERATOR Active Treat 02/09/2025 09:30 AM EDT FRANCES MCKEON [facility] Confirmed INF Chemo: Infusion [...] Therapy Confirmed HEM ONC OV Follow Up w/UNDERCUTTER OPERATOR Active Treat 03/09/2025 09:30 AM EDT FRANCES MCKEON [facility] Confirmed INF Chemo: Infusion 240 min (4 hours) 03/09/2025 10:00 AM EDT Infusion Therapy Confirmed INF/OSP Labwork 03/11/2025 08:45 AM EDT Infusion Therapy Confirmed INF Chemo: Infusion Pump Discontinue 15 03/11/2025 09:00 AM EDT Infusion Therapy Confirmed CT Abd/Pelvis w/ IV Contrast Only 04/01/2025 08:30 AM EDT Radiology [address] Chest w/ Contrast 04/01/2025 09:30 AM EDT Radiology 571 378 9070 Confirmed HEM ONC OV Follow Up w/ Active Treatme 04/06/2025 09:30 AM EDT ROSEANN LUNDBERG MD [facility] Confirmed Medications What How [...] to receive it can visit one of [facility] vaccine clinics. There are many vaccine clinic locations within the State. For locations and available times, please visit www.gettheshot.coronavirus.[place].gov/. It is important to note that some COVID mobile vaccine clinics are held outdoors and may be canceled in rainy or stormy conditions. To learn more about pediatric vaccinations (ages 5-11), we invite you to visit the [facility] webpage. https://www.[facility].org/pages/5514-Hpunl-Zfxzocbmark-Cocncmubjd-Qzcri-Mhl stions.htmlTo learn more about the COVID-19 vaccine, we invite you to visit the CDC website for a list of frequently asked questions. https://www.cdc.gov/coronavirus/2019-ncov/vaccines/faq.html [facility] Patient Portal Access Instructions: Stay connected with your healthcare team and access your personal medical information anytime with the [facility] Patient Portal.If you would like a full copy of your medical records, please contact the [facility] Medical Records Department, Saturday through Saturday between 8a.m. and 4:30p.m. Please follow the directions below to access the portal: 1.Access the email account you provided upon registration to the hospital.2.Look for an invitation email from [facility].3.Open the email and access the invitation link: Accept Invitation to [facility]4.Fill in the required wetzel to create your account. Sign into [email or web address] with your username and password that you [...] you will allow to register on the [facility] Patient Portal for access to your information. You can also access the [facility] Patient Portal on the [employer] patrizia. Simply click on Health Records under MyMedMatch and then click on the AfterShip logo. HOW TO SAFELY DISPOSE OF PRESCRIPTION [...] Call your local pharmacy or go to http://ResearchGate.OdinOtvet/8M3Qe2g to find one close to you.3.Make use of household items: Use cat litter or old coffee grounds to dispose medications if other options arenot available. Mix your drugs with these household products, seal them in an airtight container andthrow it into the garbage. Call [facility]: [phone] to be sure your drugs can be [...] that I should contact my d octor. Patient/Pretzel Twister Signature: Date/Time: Relationship to Patient: Witness Name/Signature: Date/Time: [id number] Summary of episode note CLARISSE PEGUERO :1980 [...] that I should contact my d octor. Patient/Pretzel Twister Signature: Date/Time: Relationship to Patient: Witness Name/Signature: Date/Time: [id number] Summary of episode note CLARISSE PEGUERO :1980 [...] 02/02/2025 10:00 AM EDT ARLENE RODRIGEZ MD [place] [facility] Confirmed INF/OSP Labwork 02/09/2025 08:45 AM EDT Infusion Therapy Confirmed HEM ONC OV Follow Up w/UNDERCUTTER OPERATOR Active Treat 02/09/2025 09:30 AM EDT FRANCES MCKEON [facility] Confirmed INF Chemo: Infusion 240 min (4 hours) 02/09/2025 10:00 AM EDT Infusion Therapy Confirmed INF/OSP Labwork 02/23/2025 08:45 AM EDT Infusion Therapy Confirmed INF Chemo: Infusion 240 min (4 hours) 02/23/2025 09:00 AM EDT Infusion Therapy Confirmed INF/OSP Labwork 03/09/2025 08:45 AM EDT Infusion Therapy Confirmed HEM ONC OV Follow Up w/UNDERCUTTER OPERATOR Active Treat 03/09/2025 09:30 AM EDT FRANCES MCKEON [facility] Confirmed INF Chemo: Infusion 240 min (4 hours) 03/09/2025 10:00 AM EDT Infusion Therapy Confirmed CT Abd/Pelvis w/ IV Contrast Only 04/01/2025 08:30 AM EDT Radiology [id number] Chest w/ Contrast 04/01/2025 09:30 AM EDT Radiology 314 298 4227 Confirmed HEM ONC OV Follow Up w/ Active Treatme 04/06/2025 09:30 AM EDT ROSEANN LUNDBERG MD [facility] Confirmed Medications What How [...] to receive it can visit one of [facility] vaccine clinics. There are many vaccine clinic locations within the [facility]. For locations and available times, please visit www.gettheshot.coronavirus.[place].gov/. It is important to note that some COVID mobile vaccine clinics are held outdoors and may be canceled in rainy or stormy conditions. To learn more about pediatric vaccinations (ages 5-11), we invite you to visit the [facility] webpage. https://www.Simply Zestys.org/pages/6575-Tsmxb-Szyvhsusvyn-Qmvehtmjga-Ajmfb-Awy stions.htmlTo learn more about the COVID-19 vaccine, we invite you to visit the CDC website for a list of frequently asked questions. https://www.cdc.gov/coronavirus/2019-ncov/vaccines/faq.html [facility] Patient Portal Access Instructions: Stay connected with your healthcare team and access your personal medical information anytime with the [facility] Patient Portal.If you would like a full copy of your medical records, please contact the [facility] Medical Records Department, Saturday through Saturday between 8a.m. and 4:30p.m. Please follow the directions below to access the portal: 1.Access the email account you provided upon registration to the hospital.2.Look for an invitation email from [facility].3.Open the email and access the invitation link: Accept Invitation to [facility]4.Fill in the required wetzel to create your account. Sign into [email or web address] with your username and password that you [...] you will allow to register on the [facility] Patient Portal for access to your information. You can also access the [facility] Patient Portal on the Tactilize. Simply click on Health Records under HealthData and then click on the AfterShip logo. HOW TO SAFELY DISPOSE OF PRESCRIPTION [...] Call your local pharmacy or go to http://ResearchGate.OdinOtvet/8I3Ew5e to find one close to you.3.Make use of household items: Use cat litter or old coffee grounds to dispose medications if other options arenot available. Mix your drugs with these household products, seal them in an airtight container andthrow it into the garbage. Call [facility]: [phone] to be sure your drugs can be [...] that I should contact my d octor. Patient/Pretzel Twister Signature: Date/Time: Relationship to Patient: Witness Name/Signature: Date/Time: [id number] Evaluation + Plan noteExtracted from: Title:IR Pre-Procedure [...] 01/05/2025 and can be found in the [facility] ([facility]). Deanna Oliver PA-C Interventional Radiology Pager: [phone] IR dept: [phone] Available on 10Six Appointments Appointment Date:01/12/2025 09:15:00 AM Scheduled Provider: [...] w/ contrast 06/17/24 * US Renal 04/13/24 [facility] 07-11-2025 Note* MELA Meier Juan J: SIGN, AUTHOR, PERFORM Event Display: IR Procedure Record Authored Date: [id number] IR Procedure Record Summary Primary Physician: CASIE WEINER PA-C Finalized Date/Time: 01/08/25 09:48:33 Pt. Name: SUDHIRCLARISSE/Sex: 1980 Female Med Rec #: [id number] Physician: Financial #: [id number] Pt. Type: O Room/Bed: / Admit/Disch: 01/08/25 07:42:00 - Institution: Allergies identified in patient's electronic medical record at time of printing on 01/08/25 Entry 1 Substance ciprofloxacin Reaction Type Side Effect Last Modified By: MELA Hamm 09/16/24 12:44:55 Case Attendance- IR Entry 1 Entry 2 Entry 3 Case Attendee CASIE WEINER PA-C, Brandon L Fierstos, Megan R Lead Care Manager Role Performed Primary Surgeon Scrub Technologist Circulating [...] 15 mL Medication CONTRAST ISOVUE 300/30ML 10/CA 910711 Radiology Flouroscopy Fluoroscopy Used? Yes Fluoro Dose [...] R Rad results are properly Tech, MELA eMier labeled and appropriately displayed, Alcohol based prep [...] Radiology - Action Plan Outcomes Met? Yes Neon Installer MELA Meier Completing Procedure Plan Last Modified By: MELA Meier 01/08/25 09:29:29 Case Comments <None> Finalized By: MELA Meier Document Signatures Signed By: MELA Meier 01/08/25 09:48 [facility] 07-11-2025 Hospital Discharge instructions Patient Education 01/08/2025 09:36:32 Radiology- Procedure/Biopsy 04/10/2024 (CUSTOM) [facility] Radiology Procedure/Biopsy Discharge Instructions Interventional Radiology [facility] [address] [place] [address] Today, you had a Port site check [...] 1 to 2 days following the procedure. Hjew-tdi-spvfgch pain medication should be used for pain [...] instruction below: 8:00 am- 5:00 pm call [phone] After 24 hours, contact the physician who [...] with primary care provider Address:Unknown When: Unknown [facility] 07-11-2025 Procedure note IR Brief Post Procedure [...] Cerner. Casie Weiner PA-C Interventional Radiology Pager: [phone] IR dept: x [phone] Available on Connect Messenger Digitally Signed by CASIE WEINER PA-C on 01/08/2025 10:14 AM [id number] Note* Exam Date Time Procedure Performing Provider Status 01/08/25 9:51 AM IR Port Check w/Guide IRMA SHAH DO; Auth (Verified) [id number] ORIGINAL PROCEDURE: 1. Port venogram with fluoroscopy CLINICAL INFORMATION: Port requiring cath zackary multiple doses to aspirate CULINARY INTERNSHIP: Casie Weiner PA-C FLUOROSCOPY: 1.3 minutes AIR [...] using 2 identifiers, confirming site and side. Residential Coordinator radiograph demonstrates port with the tip appearing [...] Sign Date: 01/08/2025 12:33:30 PM Ordering Provider: [facility]07-11-2025 Note IR Procedure Record Summary Primary Physician: CASIE WEINER PA-C Finalized Date/Time: 01/08/25 09:48:33 Pt. Name: CLARISSE PEGUERO /Sex: 1980 Female Med Rec #: [id number] Physician: Financial #: [id number] Pt. Type: O Room/Bed: / Admit/Disch: 01/08/25 07:42:00 - Institution: Allergies identified in patient's electronic medical record at time of printing on 01/08/25 Entry 1 Substance ciprofloxacin Reaction Type Side Effect Last Modified By: MELA Hamm 09/16/24 12:44:55 Case Attendance- IR Entry 1 Entry 2 Entry 3 Case Attendee CASIE WEINER PA-C, Brandon L Fierstos, Megan R Lead Care Manager Role Performed Primary Surgeon Scrub Technologist Circulating [...] 15 mL Medication CONTRAST ISOVUE 300/30ML 10/CA [id number] Radiology Flouroscopy Fluoroscopy Used? Yes Fluoro Dose [...] Radiology - Action Plan Outcomes Met? Yes Neon Installer MELA Meier Completing Procedure Plan Last Modified By: MELA Meier 01/08/25 09:29:29 Case Comments Finalized By: MELA Meier Document Signatures Signed By: MELA Meier 01/08/25 09:48 [place] [address]-11-2025 Summary of episode note Discharge Instructions Thank you for allowing [facility] to assist you with your healthcare needs. The following is importantdischarge information regarding your hospital visit. Your Care Team ABDULKADIR ROSALES PA-C What to do next Scheduled Follow-Up Appointments Appointment Type When With Where Contact Information StatusINF/OSP Labwork 01/12/2025 09:15 AM EDT Infusion Therapy Confirmed HEM ONC OV Follow Up w/ Active Treatme 01/12/2025 10:00 AM ANAMT ROSEANN LUNDBERG MD [facility] Confirmed INF Chemo: Infusion 240 min (4 hours) 01/12/2025 10:30 AM EDT Infusion Therapy Confirmed INF/OSP Labwork 01/14/2025 01:00 PM EDT Infusion Therapy Confirmed INF Chemo: Infusion Pump Discontinue 15 01/14/2025 01:15 PM EDT Infusion Therapy Confirmed GS OV Check Up 02/02/2025 10:00 AM EDT ARLENE RODRIGEZ MD [facility] Confirmed Follow Up Appointments Follow [...] medication providers or retail pharmacies. Education Materials [facility] Radiology Procedure/Biopsy Discharge Instructions Interventional Radiology [facility] [address] [place] [address] Today, you had a Port site check [...] 1 to 2 days following the procedure. Mkxo-iny-avmlfka pain medication should be used for pain [...] instruction below: 8:00 am- 5:00 pm call [phone] After 24 hours, contact the physician who [...] to receive it can visit one of [facility] vaccine clinics. There are many vaccine clinic locations within the [facility]. For locations and available times, please visit https://[email or web address].[place].gov/. It is important to note that some COVID mobile vaccine clinics are held outdoors and may be canceled in rainy or stormy conditions. To learn more about pediatric vaccinations (ages 5-11), we invite you to visit the [facility] webpage. https://www.[facility].org/pages/1008-Zfucb-Kycyhgawfja-Fwmidgaqel-Fkgbv-Rrd stions.htmlTo learn more about the COVID-19 vaccine, we invite you to visit the CDC website for a list of frequently asked questions.https://www.cdc.gov/coronavirus/2019-ncov/vaccines/faq.html [facility] Patient Portal Access Instructions: Stay connected with your healthcare team and access your personal medical information anytime with the [facility] Patient Portal. Please follow the directions below to create your [facility] account: 1.Access the email account you provided upon registration to the hospital/physician office.2.Look for an invitation email from [facility].3.Open the email and access the invitation link: AcceptInvitation to [facility].4.Fill in the required wetzel to create your account. To access your account, visit [email or web address]. Click the blue button labeled Access Patient [...] who you will allowto register on the [facility] Patient Portal for access to your information. You can also access the [facility] Patient Portal on the AfterShip Anywhere patrizia. Simply click on Patient Portal and then log into your account. If you would like to receive a full copy of your medical records, please contact the [facility] Medical Records Department by calling [phone], Saturday through Saturday between 8 a.m. and [...] Call your local pharmacy or go to http://ResearchGate.OdinOtvet/9K1Co1n to find one close to you.3.Make use of household items: Use cat litter or old coffee grounds to dispose medications if other options arenot available. Mix your drugs with these household products, seal them in an airtight container andthrow it into the garbage. Call [facility]: [phone] to be sure your drugs can be [...] that I should contact my d octor. Patient/Pretzel Twister Signature: Date/Time: Relationship to Patient: Witness Name/Signature: Date/Time: [id number] History and physical note IR PREPROCEDURE H&P [...] 01/05/2025 and can be found in the [facility] Electronic [facility] Records ([facility]). Deanna Oliver PA-C Interventional Radiology Pager: [phone] IR dept: x [phone] Available on elmenus Digitally Signed by DEANNA OLIVER PA-C on 01/08/2025 08:32 AM Digitally Signed by IRMA SHAH DO on 01/08/2025 04:06 PM [id number] Note* Exam Date Time Procedure Performing Provider Status 01/07/25 12:[address] Abdomen/Pelvis w/Contrast Gene ORDOÑEZ MD; Auth (Verified) [id number] ORIGINAL EXAMINATION: CT OF THE ABDOMEN AND [...] Date: 01/07/2025 1:23:29 PM Ordering Provider: ROSEANN [facility]07-10-2025 Note* Exam Date Time Procedure Performing Provider Status 01/07/25 10:[address] Thorax w/ Contrast JERARDO DIAZ DO; Auth (Verified) [id number] ORIGINAL EXAMINATION: CT OF THE CHEST WITH [...] 01/07/2025 1:23:05 PM Ordering Provider: ROSEANN LUNDBERG [id number] Summary of episode note CLARISSE PEGUERO :1980 [...] that I should contact my d octor. Patient/Pretzel Twister Signature: Date/Time: Relationship to Patient: Witness Name/Signature: Date/Time: [id number] Summary of episode note CLARISSE PEGUERO :1980 [...] that I should contact my d julitoor. 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 Tests Performed .Estimated Glomerular Filtration Rate .Morphology .Neutro Absolute CBC CMP Manual Differential Your Care Team Attending Physician - FRANCES MCKEON UNDERCUTTER 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 FOLDER Primary Care Physician - ABDULKADIR ROSALES PA-C [...] 01/05/2025 10:00 AM EDT ARLENE RODRIGEZ MD [facility] Confirmed yyCT Abdomen and Pelvis w/ Contrast 3 01/07/2025 11:00 AM EDT Radiology [phone] Confirmed yyCT Chest w/ Contrast 3 01/07/2025 11:15 AM EDT Radiology [phone] Confirmed INF/OSP Labwork 01/12/2025 09:15 AM EDT Infusion Therapy Confirmed HEM ONC OV Follow Up w/ Active Treatme 01/12/2025 10:00 AM EDT ROSEANN LUNDBERG MD [facility] Confirmed INF Chemo: Infusion [...] to receive it can visit one of [facility] vaccine clinics. There are many vaccine clinic locations within the [facility]. For locations and available times, please visit www.gettheshot.coronavirus.[place].gov/. It is important to note that some COVID mobile vaccine clinics are held outdoors and may be canceled in rainy or stormy conditions. To learn more about pediatric vaccinations (ages 5-11), we invite you to visit the [facility] webpage. https://www.[facility].org/pages/2770-Qbtrp-Fqqumnxtvqh-Jsddsorygb-Jwhxk-Tyf stions.htmlTo learn more about the COVID-19 vaccine, we invite you to visit the CDC website for a list of frequently asked questions. https://www.cdc.gov/coronavirus/2019-ncov/vaccines/faq.html [facility] Patient Portal Access Instructions: Stay connected with your healthcare team and access your personal medical information anytime with the [facility] Patient Portal.If you would like a full copy of your medical records, please contact the [facility] Medical Records Department, Saturday through Saturday between 8a.m. and 4:30p.m. Please follow the directions below to access the portal: 1.Access the email account you provided upon registration to the [facility].2.Look for an invitation email from [facility].3.Open the email and access the invitation link: Accept [facility]itation to [facility]4.Fill in the required wetzel to create your account. Sign into [email or web address] with your username and password that you [...] you will allow to register on the [facility] Patient Portal for access to your information. You can also access the [facility] Patient Portal on the SSP [employer] patrizia. Simply click on Health Records under HealthData and then click on the AfterShip logo. HOW TO SAFELY DISPOSE OF PRESCRIPTION [...] Call your local pharmacy or go to http://bit.ly/2W5Xk6o to find one close to you.3.Make use of household items: Use cat litter or old coffee grounds to dispose medications if other options arenot available. Mix your drugs with these household products, seal them in an airtight container andthrow it into the garbage. Call [facility]: [phone] to be sure your drugs can be [...] that I should contact my d octor. Patient/Pretzel Twister Signature: Date/Time: Relationship to Patient: Witness Name/Signature: Date/Time: [id number] Summary of episode note CLARISSE PEGUERO :1980 [...] that I should contact my d julitoor. Patient/Pretzel Twister Signature: Date/Time: Relationship to Patient: Witness Name/Signature: Date/Time: [id number] Summary of episode note CLARISSE PEGUERO :1980 [...] Care Team Attending Physician - FRANCES MCKEON UNDERCUTTER 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 FOLDER Primary Care Physician - ABDULKADIR ROSALES PA-C [...] 01/05/2025 10:00 AM EDT ARLENE RODRIGEZ MD [facility] Confirmed Medications What How Much [...] to receive it can visit one of [facility] vaccine clinics. There are many vaccine clinic locations within the [facility]. For locations and available times, please visit www.gettheshot.coronavirus.[place].gov/. It is important to note that some COVID mobile vaccine clinics are held outdoors and may be canceled in rainy or stormy conditions. To learn more about pediatric vaccinations (ages 5-11), we invite you to visit the [facility] webpage. https://www.[facility].org/pages/8498-Gwpqx-Nsbttudatuk-Whddnvioqn-Uqjfg-Ucf stions.htmlTo learn more about the COVID-19 vaccine, we invite you to visit the CDC website for a list of frequently asked questions. https://www.cdc.gov/coronavirus/2019-ncov/vaccines/faq.html [facility] Patient Portal Access Instructions: Stay connected with your healthcare team and access your personal medical information anytime with the [facility] Patient Portal.If you would like a full copy of your medical records, please contact the [facility] Medical Records Department, Saturday through Saturday between 8a.m. and 4:30p.m. Please follow the directions below to access the portal: 1.Access the email account you provided upon registration to the [facility].2.Look for an invitation email from [facility].3.Open the email and access the invitation link: Accept Invitation to [facility]4.Fill in the required wetzel to create your [...] you will allow to register on the [facility] Patient Portal for access to your information. You can also access the [facility] Patient Portal on the Tactilize. Simply click on Health Records under MyMedMatch and then click on the [facility] logo. [...] Call your local pharmacy or go to http://ResearchGate.OdinOtvet/7P0Hj4q to find one close to you.3.Make use of household items: Use cat litter or old coffee grounds to dispose medications if other options arenot available. Mix your drugs with these household products, seal them in an airtight container andthrow it into the garbage. Call [facility]: [phone] to be sure your drugs can be [...] that I should contact my d octor. Patient/Pretzel Twister Signature: Date/Time: Relationship to Patient: Witness Name/Signature: Date/Time: [id number] Summary of episode note CLARISSE PEGUERO :1980 [...] 12/29/2024 09:00 AM EDT ROSEANN LUNDBERG MD [facility] Confirmed INF Chemo: Infusion 240 min (4 hours) 12/29/2024 09:30 AM EDT Infusion Therapy Confirmed INF/OSP Labwork 12/31/2024 12:30 PM EDT Infusion Therapy Confirmed INF Chemo: Infusion Pump Discontinue 15 12/31/2024 12:45 PM EDT Infusion Therapy Confirmed GS OV Check Up 01/05/2025 10:00 AM EDT ARLENE RODRIGEZ MD [facility] Confirmed Medications What How Much [...] to receive it can visit one of [facility] vaccine clinics. There are many vaccine clinic locations within the [facility]. For locations and available times, please visit www.gettheshot.coronavirus.[place].gov/. It is important to note that some COVID mobile vaccine clinics are held outdoors and may be canceled in rainy or stormy conditions. To learn more about pediatric vaccinations (ages 5-11), we invite you to visit the [facility] webpage. https://www.[facility].org/pages/4379-Mxpha-Yqivyrgutsl-Wajxybgzzt-Eqbgg-Oaw stions.htmlTo learn more about the COVID-19 vaccine, we invite you to visit the CDC website for a list of frequently asked questions. https://www.cdc.gov/coronavirus/2019-ncov/vaccines/faq.html [facility] Patient Portal Access Instructions: Stay connected with your healthcare team and access your personal medical information anytime with the [facility] Patient Portal.If you would like a full copy of your medical records, please contact the [facility] Medical Records Department, Saturday through Saturday between 8a.m. and 4:30p.m. Please follow the directions below to access the portal: 1.Access the email account you provided upon registration to the [facility].2.Look for an invitation email from [facility].3.Open the email and access the invitation link: Accept Invitation to [facility]4.Fill in the required wetzel to create your account. Sign into [email or web address] with your username and password that you [...] you will allow to register on the [facility] Patient Portal for access to your information. You can also access the [facility] Patient Portal on the SSP [employer] patrizia. Simply click on Health Records under HealthData and then click on the AfterShip logo. HOW TO SAFELY DISPOSE OF PRESCRIPTION [...] Call your local pharmacy or go to http://bit.OdinOtvet/4W5Zy5m to find one close to you.3.Make use of household items: Use cat litter or old coffee grounds to dispose medications if other options arenot available. Mix your drugs with these household products, seal them in an airtight container andthrow it into the garbage. Call [facility]: [phone] to be sure your drugs can be [...] that I should contact my d octor. Patient/Pretzel Twister Signature: Date/Time: Relationship to Patient: Witness Name/Signature: Date/Time: [id number] Summary of episode note CLARISSE PEGUERO :1980 [...] 12/29/2024 09:00 AM EDT ROSEANN LUNDBERG MD [facility] Confirmed INF Chemo: Infusion 240 min (4 hours) 12/29/2024 09:30 AM EDT Infusion Therapy Confirmed INF/OSP Labwork 12/31/2024 12:30 PM EDT Infusion Therapy Confirmed INF Chemo: Infusion Pump Discontinue 15 12/31/2024 12:45 PM EDT Infusion Therapy Confirmed GS OV Check Up 01/05/2025 10:00 AM ARLENE HYDE MD [facility] Surgery Confirmed Medications What How Much When [...] to receive it can visit one of [facility] vaccine clinics. There are many vaccine clinic locations within the [facility]. For locations and available times, please visit www.gettheshot.coronavirus.[place].gov/. It is important to note that some COVID mobile vaccine clinics are held outdoors and may be canceled in rainy or stormy conditions. To learn more about pediatric vaccinations (ages 5-11), we invite you to visit the [facility] webpage. https://www.Simply Zestys.org/pages/4392-Acmni-Mpmdkcofgki-Fqnouszwtm-Pmezd-Jgc stions.htmlTo learn more about the COVID-19 vaccine, we invite you to visit the CDC website for a list of frequently asked questions. https://www.cdc.gov/coronavirus/2019-ncov/vaccines/faq.html [facility] Patient Portal Access Instructions: Stay connected with your healthcare team and access your personal medical information anytime with the [facility] Patient Portal.If you would like a full copy of your medical records, please contact the [facility] Medical Records Department, Saturday through Saturday between 8a.m. and 4:30p.m. Please follow the directions below to access the portal: 1.Access the email account you provided upon registration to the hospital.2.Look for an invitation email from [facility].3.Open the email and access the invitation link: Accept Invitation to [facility]4.Fill in the required wetzel to create your account. Sign into [email or web address] with your username and password that you [...] you will allow to register on the [facility] Patient Portal for access to your information. You can also access the [facility] Patient Portal on the Tactilize. Simply click on Health Records under MyMedMatch and then click on the AfterShip logo. HOW TO SAFELY DISPOSE OF PRESCRIPTION [...] Call your local pharmacy or go to http://ResearchGate.OdinOtvet/4D7Ry3c to find one close to you.3.Make use of household items: Use cat litter or old coffee grounds to dispose medications if other options arenot available. Mix your drugs with these household products, seal them in an airtight container andthrow it into the garbage. Call [facility]: [phone] to be sure your drugs can be [...] that I should contact my d julitoor. Patient/Pretzel Twister Signature: Date/Time: Relationship to Patient: Witness Name/Signature: Date/Time: [id number] Summary of episode note CLARISSE PEGUERO :1980 [...] Therapy Confirmed HEM ONC OV Follow Up w/UNDERCUTTER OPERATOR Active Treat 12/01/2024 09:00 AM EDT FRANCES MCKEON APRN-WASHCLOTH FOLDER [facility] Confirmed INF Chemo: Infusion 240 min (4 hours) 12/01/2024 09:30 AM EDT Infusion Therapy Confirmed INF/OSP Labwork 12/03/2024 01:30 PM EDT Infusion Therapy Confirmed INF Chemo: Infusion Pump Discontinue 15 12/03/2024 01:45 PM EDT Infusion Therapy Confirmed GS OV Check Up 01/05/2025 10:00 AM EDT ARLENE RODRIGEZ MD [facility] Confirmed Medications What How Much [...] to receive it can visit one of [facility] vaccine clinics. There are many vaccine clinic locations within the [facility]. For locations and available times, please visit www.gettheshot.coronavirus.[place].gov/. It is important to note that some COVID mobile vaccine clinics are held outdoors and may be canceled in rainy or stormy conditions. To learn more about pediatric vaccinations (ages 5-11), we invite you to visit the [facility] webpage. https://www.Simply Zestys.org/pages/1624-Zzisy-Wqymesgoyuf-Ncreztfsuu-Wqvli-Grt stions.htmlTo learn more about the COVID-19 vaccine, we invite you to visit the CDC website for a list of frequently asked questions. https://www.cdc.gov/coronavirus/2019-ncov/vaccines/faq.html [facility] Patient Portal Access Instructions: Stay connected with your healthcare team and access your personal medical information anytime with the [facility] Patient Portal.If you would like a full copy of your medical records, please contact the [facility] Medical Records Department, Saturday through Saturday between 8a.m. and 4:30p.m. Please follow the directions below to access the portal: 1.Access the email account you provided upon registration to the hospital.2.Look for an invitation email from [facility].3.Open the email and access the invitation link: Accept Invitation to [facility]4.Fill in the required wetzel to create your account. Sign into [email or web address] with your username and password that you [...] you will allow to register on the [facility] Patient Portal for access to your information. You can also access the [facility] Patient Portal on the [employer] patrizia. Simply click on Health Records under MyMedMatch and then click on the AfterShip logo. HOW TO SAFELY DISPOSE OF PRESCRIPTION [...] Call your local pharmacy or go to http://ResearchGate.OdinOtvet/2Z0Qg2a to find one close to you.3.Make use of household items: Use cat litter or old coffee grounds to dispose medications if other options arenot available. Mix your drugs with these household products, seal them in an airtight container andthrow it into the garbage. Call [facility]: [phone] to be sure your drugs can be [...] that I should contact my d julitoor. Patient/Pretzel Twister Signature: Date/Time: Relationship to Patient: Witness Name/Signature: Date/Time: [id number] Summary of episode note CLARISSE PEGUERO :1980 [...] that I should contact my david kumar. Patient/Pretzel Twister Signature: Date/Time: Relationship to Patient: Witness Name/Signature: Date/Time: [id number] Summary of episode note CLARISSE PEGUERO :1980 [...] 11/10/2024 08:15 AM EDT ARLENE RODRIGEZ MD [facility] Confirmed HEM ONC OV Follow Up w/UNDERCUTTER OPERATOR Active Treat 12/01/2024 09:00 AM EDT FRANCES MCKEON APRN-WASHCLOTH FOLDER [facility] Confirmed Medications What How [...] to receive it can visit one of [facility] vaccine clinics. There are many vaccine clinic locations within the [facility]. For locations and available times, please visit www.gettheshot.coronavirus.[place].gov/. It is important to note that some COVID mobile vaccine clinics are held outdoors and may be canceled in rainy or stormy conditions. To learn more about pediatric vaccinations (ages 5-11), we invite you to visit the [facility] webpage. https://www.[facility].org/pages/1307-Zuiey-Qkvglvougmb-Djqtarfpjs-Kujkw-Vol stions.htmlTo learn more about the COVID-19 vaccine, we invite you to visit the CDC website for a list of frequently asked questions. https://www.cdc.gov/coronavirus/2019-ncov/vaccines/faq.html [facility] Patient Portal Access Instructions: Stay connected with your healthcare team and access your personal medical information anytime with the [facility] Patient Portal.If you would like a full copy of your medical records, please contact the [facility] Medical Records Department, Saturday through Saturday between 8a.m. and 4:30p.m. Please follow the directions below to access the portal: 1.Access the email account you provided upon registration to the [facility].2.Look for an invitation email from [facility].3.Open the email and access the invitation link: Accept Invitation to [facility]4.Fill in the required wetzel to create your account. Sign into [email or web address] with your username and password that you [...] you will allow to register on the [facility] Patient Portal for access to your information. You can also access the [facility] Patient Portal on the Tactilize. Simply click on Health Records under ZazengoData and then click on the AfterShip logo. HOW TO SAFELY DISPOSE OF PRESCRIPTION [...] Call your local pharmacy or go to http://bit.OdinOtvet/4U4Ki3k to find one close to you.3.Make use of household items: Use cat litter or old coffee grounds to dispose medications if other options arenot available. Mix your drugs with these household products, seal them in an airtight container andthrow it into the garbage. Call [facility]: [phone] to be sure your drugs can be [...] that I should contact my d octor. Patient/Pretzel Twister Signature: Date/Time: Relationship to Patient: Witness Name/Signature: Date/Time: [id number] Summary of episode note CLARISSE PEGUERO :1980 [...] that I should contact my d octor. Patient/Pretzel Twister Signature: Date/Time: Relationship to Patient: Witness Name/Signature: Date/Time: [id number] Summary of episode note CLARISSE PEGUERO :1980 [...] 11/03/2024 09:30 AM EDT ROSEANN LUNDBERG MD [facility] Confirmed INF Chemo: Infusion 240 min (4 hours) 11/03/2024 10:00 AM EDT Infusion Therapy Confirmed INF/OSP Labwork 11/05/2024 01:00 PM EDT Infusion Therapy Confirmed INF Chemo: Infusion Pump Discontinue 11/05/2024 01:15 PM EDT Infusion Therapy Confirmed GS OV Post Op 11/10/2024 08:15 AM EDT ARLENE RODRIGEZ MD [facility] Confirmed Test Results .Auto Differential [...] to receive it can visit one of [facility] vaccine clinics. There are many vaccine clinic locations within the [facility]. For locations and available times, please visit www.gettheshot.coronavirus.[place].gov/. It is important to note that some COVID mobile vaccine clinics are held outdoors and may be canceled in rainy or stormy conditions. To learn more about pediatric vaccinations (ages 5-11), we invite you to visit the [facility] webpage. https://www.[facility].org/pages/1486-Qrmcc-Dbeiphrewpg-Coglatabht-Wbaax-Das stions.htmlTo learn more about the COVID-19 vaccine, we invite you to visit the CDC website for a list of frequently asked questions. https://www.cdc.gov/coronavirus/2019-ncov/vaccines/faq.html [facility] Patient Portal Access Instructions: Stay connected with your healthcare team and access your personal medical information anytime with the [facility] Patient Portal.If you would like a full copy of your medical records, please contact the [facility] Medical Records Department, Saturday through Saturday between 8a.m. and 4:30p.m. Please follow the directions below to access the portal: 1.Access the email account you provided upon registration to the [facility].2.Look for an invitation email from [facility].3.Open the email and access the invitation link: Accept Invitation to [facility]4.Fill in the required wetzel to create your account. Sign into [email or web address] with your username and password that you [...] you will allow to register on the [facility] Patient Portal for access to your information. You can also access the [facility] Patient Portal on the Tactilize. Simply click on Health Records under MyMedMatch and then click on the AfterShip logo. HOW TO SAFELY DISPOSE OF PRESCRIPTION [...] Call your local pharmacy or go to http://ResearchGate.OdinOtvet/5R7Zu6z to find one close to you.3.Make use of household items: Use cat litter or old coffee grounds to dispose medications if other options arenot available. Mix your drugs with these household products, seal them in an airtight container andthrow it into the garbage. Call [facility]: [phone] to be sure your drugs can be [...] that I should contact my d octor. Patient/Pretzel Twister Signature: Date/Time: Relationship to Patient: Witness Name/Signature: Date/Time: [id number] Summary of episode note CLARISSE PEGUERO :1980 [...] Op 10/13/2024 08:15 AM ARLENE HYDE MD [facility] Confirmed INF/OSP Labwork 10/20/2024 08:15 [...] to receive it can visit one of [facility] vaccine clinics. There are many vaccine clinic locations within the [facility]. For locations and available times, please visit www.gettheshot.coronavirus.[place].gov/. It is important to note that some COVID mobile vaccine clinics are held outdoors and may be canceled in rainy or stormy conditions. To learn more about pediatric vaccinations (ages 5-11), we invite you to visit the [facility] webpage. https://www.[facility].org/pages/8174-Estnn-Hkuvviqqbzb-Jtwnipznmg-Avwjq-Oxs stions.htmlTo learn more about the COVID-19 vaccine, we invite you to visit the CDC website for a list of frequently asked questions. https://www.cdc.gov/coronavirus/2019-ncov/vaccines/faq.html [facility] Patient Portal Access Instructions: Stay connected with your healthcare team and access your personal medical information anytime with the [facility] Patient Portal.If you would like a full copy of your medical records, please contact the [facility] Medical Records Department, Saturday through Saturday between 8a.m. and 4:30p.m. Please follow the directions below to access the portal: 1.Access the email account you provided upon registration to the [facility].2.Look for an invitation email from [facility].3.Open the email and access the invitation link: Accept Invitation to [facility]4.Fill in the required wetzel to create your account. Sign into [email or web address] with your username and password that you [...] you will allow to register on the [facility] Patient Portal for access to your information. You can also access the [facility] Patient Portal on the Tactilize. Simply click on Health Records under Brandleta and then click on the [facility] logo. [...] Call your local pharmacy or go to http://ResearchGate.OdinOtvet/5T2Da4u to find one close to you.3.Make use of household items: Use cat litter or old coffee grounds to dispose medications if other options arenot available. Mix your drugs with these household products, seal them in an airtight container andthrow it into the garbage. Call [facility]: [phone] to be sure your drugs can be [...] that I should contact my d octor. Patient/Pretzel Twister Signature: Date/Time: Relationship to Patient: Witness Name/Signature: Date/Time: [id number] Summary of episode note CLARISSE PEGUERO :1980 [...] 10/13/2024 08:15 AM EDT ARLENE RODRIGEZ MD [facility] Confirmed INF/OSP Labwork 10/20/2024 08:15 AM EDT Infusion Therapy Confirmed HEM ONC OV Follow Up w/ Active Treatme 10/20/2024 09:00 AM EDT ORSEANN LUNDBERG MD [facility] Confirmed INF Chemo: Infusion [...] to receive it can visit one of [facility] vaccine clinics. There are many vaccine clinic locations within the [facility]. For locations and available times, please visit www.gettheshot.coronavirus.[place].gov/. It is important to note that some COVID mobile vaccine clinics are held outdoors and may be canceled in rainy or stormy conditions. To learn more about pediatric vaccinations (ages 5-11), we invite you to visit the [facility] webpage. https://www.[facility].org/pages/9496-Qbarm-Ohuwwrogztw-Czggrbapat-Ueekf-Abv stions.htmlTo learn more about the COVID-19 vaccine, we invite you to visit the CDC website for a list of frequently asked questions. https://www.cdc.gov/coronavirus/2019-ncov/vaccines/faq.html [facility] Patient Portal Access Instructions: Stay connected with your healthcare team and access your personal medical information anytime with the [facility] Patient Portal.If you would like a full copy of your medical records, please contact the [facility] Medical Records Department, Saturday through Saturday between 8a.m. and 4:30p.m. Please follow the directions below to access the portal: 1.Access the email account you provided upon registration to the [facility].2.Look for an invitation email from [facility].3.Open the email and access the invitation link: Accept Invitation to [facility]4.Fill in the required wetzel to create your account. Sign into [email or web address] with your username and password that you [...] you will allow to register on the [facility] Patient Portal for access to your information. You can also access the [facility] Patient Portal on the Tactilize. Simply click on Health Records under MyMedMatch and then click on the AfterShip logo. HOW TO SAFELY DISPOSE OF PRESCRIPTION [...] Call your local pharmacy or go to http://ResearchGate.OdinOtvet/8T1Al0i to find one close to you.3.Make use of household items: Use cat litter or old coffee grounds to dispose medications if other options arenot available. Mix your drugs with these household products, seal them in an airtight container andthrow it into the garbage. Call [facility]: [phone] to be sure your drugs can be [...] that I should contact my d octor. Patient/Pretzel Twister Signature: Date/Time: Relationship to Patient: Witness Name/Signature: Date/Time: [id number] Note* Rosa Guadarrama RN: SIGN, AUTHOR, PERFORM Event Display: IR Procedure Record Authored Date: [id number] IR Procedure Record Summary Primary Physician: Finalized Date/Time: 09/30/24 13:34:46 Pt. Name: CLARISSE PEGUERO Jude /Sex: 1980 Female Med Rec #: [id number] Physician: Financial #: [id number] Pt. Type: O Room/Bed: / Admit/Disch: 09/30/24 12:05:00 - Institution: Allergies identified in patient's electronic medical record at time of printing on 09/30/24 Entry 1 Substance ciprofloxacin Reaction Type Side Effect Last Modified By: MELA Hamm 09/16/24 12:44:55 Case Attendance- IR Entry 1 Entry 2 Entry 3 Case Attendee Rosa Guadarrama Brandon L Ritchey, Logan RN Role Performed Procedure Nurse Scrub Technologist Eeg Technologist 1 Details Time In 09/30/24 13:07:00 09/30/24 [...] Radiology - Action Plan Outcomes Met? Yes Neon Installer Rosa Guadarrama power lineman Plan Last Modified By: Rosa Guadarrama RN 09/30/24 13:24:11 Case Comments <None> Finalized By: Rosa Guadarrama RN Document Signatures Signed By: Rosa Guadarrama RN 09/30/24 13:34 [facility] 04-02-2025 Hospital Discharge instructions Patient Education 09/30/2024 13:09:39 Radiology- IR Drain Discharge Instructions (06/27/2023)(CUSTOM) [facility] IR Drain Discharge Instructions Interventional Radiology [facility] Imaging Services [address] [place] [address] Description These descriptions may or may not [...] be compressed to resume suction. PAIN CONTROL: Toni-qdm-fiydauh pain medication should be used for pain or discomfort. Please check with the physician who ordered this procedure for you for their specific recommendations. If your pain is not relieved or becomes more severe, notify the physician who sent you for this procedure. MEDICATION: Please resume on . Contact Interventional Radiology ([phone]) If there is an abrupt reduction in [...] first 48 hours of removal please contact [phone] with any questions or concerns. Contact if continued drainage from site after removal. Follow Up Care 09/17/2024 07:10:53 With:ABDULKADIR ROSALES PA-C Address: [address] [place] [address] [place] [address] [phone] When: Unknown [facility] 04-02-2025 Procedure note Brief IR Post Procedure Note - Outpatient Pre Procedure Dx: Pelvic Abscess Post Procedure Dx: Same Procedure: 1. IR Drainage Catheter Evaluation Modeling Director: Rebeca Piano Case Maker: Car Anesthesia: None. EBL: Minimal Complications:None Status: Stable Findings: 1. The 16Fr drainage catheter was injected and no identifiable fluid collection or fistula was identified. The catheter was removed successfully. The site was dressed in the usual fashion. Plan: 1. D/c home. Full report to follow. Orders in [facility]. Edilma Yoon MD V/IR Resident, PGY-5 [facility] Dept (21/01): [phone] RAC-2threads [phone] [employer]ru-2threads Digitally Signed by EDILMA YOON MD on 09/30/2024 02:27 PM Digitally Signed by KENAN JOSE MD on 09/30/2024 06:17 PM [id number] Evaluation + Plan noteExtracted from: Title:IR Pre-procedure [...] 09/22/2024 and can be found in the [facility] Electronic Medical Records ([facility]). Casie Weiner PA-C Interventional Radiology Pager: [phone] IR dept: [phone] Available on 10Six Appointments Appointment Date:10/06/2024 09:15:00 AM Scheduled Provider: [...] w/ contrast 06/17/24 * US Renal 04/13/24 [facility] 04-02-2025 Note IR Procedure Record Summary Primary Physician: Finalized Date/Time: 09/30/24 13:34:46 Pt. Name: CLARISSE PEGUERO Jude ReaB./Sex: 1980 Female Med Rec #: [id number] Physician: Financial #: [id number] Pt. Type: O Room/Bed: / Admit/Disch: 09/30/24 12:05:00 - Institution: Allergies identified in patient's electronic medical record at time of printing on 09/30/24 Entry 1 Substance ciprofloxacin Reaction Type Side Effect Last Modified By: MELA Hamm 09/16/24 12:44:55 Case Attendance- IR Entry 1 Entry 2 Entry 3 Case Attendee Rosa Guadarrama Brandon L Ritchey, Logan RN Role Performed Procedure Nurse Scrub Technologist Eeg Technologist 1 Details Time In 09/30/24 13:07:00 09/30/24 [...] Radiology - Action Plan Outcomes Met? Yes Neon Installer Rosa Guadarrama power lineman Plan Last Modified By: Rosa Guadarrama RN 09/30/24 13:24:11 Case Comments Finalized By: Rosa Guadarrama RN Document Signatures Signed By: Rosa Guadarrama RN 09/30/24 13:34 [id number] Summary of episode note Discharge Instructions Thank you for allowing [facility] to assist you with your healthcare needs. The following is importantdischarge information regarding your hospital visit. Your Care Team ABDULKADIR ROSALES PA-C What to do next Scheduled Follow-Up Appointments Appointment Type When With Where Contact Information StatusINF/OSP Labwork 10/06/2024 09:15 AM EDT Infusion Therapy Confirmed HEM ONC OV Follow Up w/UNDERCUTTER OPERATOR Active Treat 10/06/2024 10:00 AM EDT SHEA CLAY APRN-CRIMINAL INVESTIGATOR [facility] Confirmed INF Chemo: Infusion [...] 10/13/2024 08:15 AM EDT ARLENE RODRIGEZ MD [facility] Confirmed INF/OSP Labwork 10/20/2024 08:15 AM EDT Infusion Therapy Confirmed HEM ONC OV Follow Up w/ Active Treatme 10/20/2024 09:00 AM EDT ROSEANN LUNDBERG MD [facility] Confirmed INF Chemo: Infusion [...] Appointments Follow Up with ABDULKADIR ROSALES PA-C Where:[address] [place] [address] [place] [address] [phone] The Following Activity and Diet Have Been [...] medication providers or retail pharmacies. Education Materials [facility] Drain Discharge Instructions Interventional Radiology [facility] Imaging Services [address] [place] [address] Description These descriptions may or may not [...] be compressed to resume suction. PAIN CONTROL: Kqcm-zgk-tmvytte pain medication should be used for pain or discomfort. Please check with the physician who ordered this procedure for you for their specific recommendations. If your pain is not relieved or becomes more severe, notify the physician who sent you for this procedure. MEDICATION: Please resume on . Contact Interventional Radiology ([phone]) If there is an abrupt reduction in [...] first 48 hours of removal please contact [phone] with any questions or concerns. Contact if continued drainage from site after removal. Additional Information VACCINATE! IT SAVES LIVES! Members of the community who have not yet received the COVID-19 vaccine and would like to receive it can visit one of [facility] vaccine clinics. There are many vaccine clinic locations within the [facility]. For locations and available times, please visit https://gettheshot.[email or web address].[place].gov/. It is important to note that some COVID mobile vaccine clinics are held outdoors and may be canceled in rainy or stormy conditions. To learn more about pediatric vaccinations (ages 5-11), we invite you to visit the [facility] webpage. https://www.[facility].org/pages/9157-Knsjy-Mqqgnipqezy-Xyuwhsawch-Cbgrk-Muq stions.htmlTo learn more about the COVID-19 vaccine, we invite you to visit the CDC website for a list of frequently asked questions.https://www.cdc.gov/coronavirus/2019-ncov/vaccines/faq.html [facility] Patient Portal Access Instructions: Stay connected with your healthcare team and access your personal medical information anytime with the [facility] Patient Portal. Please follow the directions below to create your [facility] account: 1.Access the email account you provided upon registration to the hospital/physician office.2.Look for an invitation email from [facility].3.Open the email and access the invitation link: AcceptInvitation to [facility].4.Fill in the required wetzel to create your account. To access your account, visit [email or web address]. Click the blue button labeled Access Patient Portal and then log in with the username and password that you created in the steps above. You will be able to view your test results, lab results, a summary of your visits, upcoming appointments and more. There is also a convenient messaging option where you can send secure messages to your p Projjixvider. In addition, you will have the ability to download any documents or summaries to your computer and/or send the information securely to a physician. Remember that your healthcare information is confidential, so carefully consider who you will allowto register on the [facility] Patient Portal for access to your information. You can also access the [facility] Patient Portal on the DanceTrippinwhere patrizia. Simply click on Patient Portal and then log into your account. If you would like to receive a full copy of your medical records, please contact the [facility] Medical Records Department by calling [phone], Saturday through Saturday between 8 a.m. and [...] Call your local pharmacy or go to http://ResearchGate.OdinOtvet/8C5Ux7r to find one close to you.3.Make use of household items: Use cat litter or old coffee grounds to dispose medications if other options arenot available. Mix your drugs with these household products, seal them in an airtight container andthrow it into the garbage. Call [facility]: [phone] to be sure your drugs can be [...] that I should contact my d octor. Patient/Pretzel Twister Signature: Date/Time: Relationship to Patient: Witness Name/Signature: Date/Time: [id number] History and physical note IR PREPROCEDURE H&P [...] 09/22/2024 and can be found in the [facility] Electronic [facility] Records ([facility]). Casie Weiner PA-C Interventional Radiology Pager: [phone] IR dept: [phone] Available on elmenus Digitally Signed by CASIE WEINER PA-C on 09/30/2024 12:37 PM Digitally Signed by KENAN JOSE MD on 09/30/2024 06:18 PM [id number] Summary of episode note CLARISSE PEGUERO :1980 [...] Treat 10/06/2024 10:00 AM EDT SHEA CLAY APRN-CRIMINAL INVESTIGATOR [facility] Confirmed INF Chemo: Infusion [...] 10/13/2024 08:15 AM EDT ARLENE RODRIGEZ MD [facility] Confirmed INF/OSP Labwork 10/20/2024 08:15 AM EDT Infusion Therapy Confirmed HEM ONC OV Follow Up w/ Active Treatme 10/20/2024 09:00 AM EDT ROSEANN LUNDBERG MD [facility] Confirmed INF Chemo: Infusion [...] to receive it can visit one of [facility] vaccine clinics. There are many vaccine clinic locations within the [facility]. For locations and available times, please visit www.gettheshot.coronavirus.[place].[facility]/. It is important to note that some COVID mobile vaccine clinics are held outdoors and may be canceled in rainy or stormy conditions. To learn more about pediatric vaccinations (ages 5-11), we invite you to visit the [facility] webpage. https://www.Simply Zestys.org/pages/1475-Figbo-Rpimpbeyjqx-Dycasmqxny-Ddoej-Rvn stions.htmlTo learn more about the COVID-19 vaccine, we invite you to visit the CDC website for a list of frequently asked questions. https://www.cdc.gov/coronavirus/2019-ncov/vaccines/faq.html [facility] Patient Portal Access Instructions: Stay connected with your healthcare team and access your personal medical information anytime with the [facility] Patient Portal.If you would like a full copy of your medical records, please contact the [facility] Medical Records Department, Saturday through Saturday between 8a.m. and 4:30p.m. Please follow the directions below to access the portal: 1.Access the email account you provided upon registration to the hospital.2.Look for an invitation email from [facility].3.Open the email and access the invitation link: Accept Invitation to [facility]4.Fill in the required wetzel to create your account. Sign into [email or web address] with your username and password that you [...] you will allow to register on the [facility] Patient Portal for access to your information. You can also access the [facility] Patient Portal on the [employer] patrizia. Simply click on Health Records under MyMedMatch and then click on the AfterShip logo. HOW TO SAFELY DISPOSE OF PRESCRIPTION [...] Call your local pharmacy or go to http://ResearchGate.OdinOtvet/2P8Sq8r to find one close to you.3.Make use of household items: Use cat litter or old coffee grounds to dispose medications if other options arenot available. Mix your drugs with these household products, seal them in an airtight container andthrow it into the garbage. Call [facility]: [phone] to be sure your drugs can be [...] that I should contact my d octor. Patient/Pretzel Twister Signature: Date/Time: Relationship to Patient: Witness Name/Signature: Date/Time[id number] Summary of episode note CLARISSE PEGUERO :1980 [...] IR Confirmed HEM ONC OV Follow Up w/UNDERCUTTER OPERATOR Active Treat 10/06/2024 10:00 AM EDT SHEA CLAY APRN-CRIMINAL INVESTIGATOR [facility] Confirmed GS OV Post Op 10/13/2024 08:15 AM EDT ARLENE RODRIGEZ MD [facility] Confirmed HEM ONC OV Follow Up w/ Active Treatme 10/20/2024 09:00 AM EDT ROSEANN LUNDBERG MD [facility] Confirmed Medications What How [...] to receive it can visit one of [facility] vaccine clinics. There are many vaccine clinic locations within the [facility]. For locations and available times, please visit www.gettheshot.coronavirus.[place].gov/. It is important to note that some COVID mobile vaccine clinics are held outdoors and may be canceled in rainy or stormy conditions. To learn more about pediatric vaccinations (ages 5-11), we invite you to visit the [facility] webpage. https://www.[facility].org/pages/3706-Fremk-Gqdwfvzdxtg-Eiecosuvtg-Ravgo-Mhc stions.htmlTo learn more about the COVID-19 vaccine, we invite you to visit the CDC website for a list of frequently asked questions. https://www.cdc.gov/coronavirus/2019-ncov/vaccines/faq.html [facility] Patient Portal Access Instructions: Stay connected with your healthcare team and access your personal medical information anytime with the [facility] Patient Portal.If you would like a full copy of your medical records, please contact the [facility] Medical Records Department, Saturday through Saturday between 8a.m. and 4:30p.m. Please follow the directions below to access the portal: 1.Access the email account you provided upon registration to the hospital.2.Look for an invitation email from [facility].3.Open the email and access the invitation link: Accept Invitation to [facility]4.Fill in the required wetzel to create your account. Sign into [email or web address] with your username and password that you [...] you will allow to register on the [facility] Patient Portal for access to your information. You can also access the [facility] Patient Portal on the Tactilize. Simply click on Health Records under MyMedMatch and then click on the AfterShip logo. HOW TO SAFELY DISPOSE OF PRESCRIPTION [...] Call your local pharmacy or go to http://ResearchGate.OdinOtvet/3R9Ck6s to find one close to you.3.Make use of household items: Use cat litter or old coffee grounds to dispose medications if other options arenot available. Mix your drugs with these household products, seal them in an airtight container andthrow it into the garbage. Call [facility]: [phone] to be sure your drugs can be [...] that I should contact my d octor. Patient/Pretzel Twister Signature: Date/Time: Relationship to Patient: Witness Name/Signature: Date/Time: [id number] Note* MELA Meier Juan J: SIGN, AUTHOR, PERFORM Event Display: IR Procedure Record Authored Date: [id number] IR Procedure Record Summary Primary Physician: IRMA SHAH DO Finalized Date/Time: 09/16/24 14:39:03 Pt. Name: CLARISSE PEGUERO./Sex: 1980 Female Med Rec #: [id number] Physician: Financial #: [id number] Pt. Type: O Room/Bed: / Admit/Disch: 09/16/24 11:51:00 - Institution: Allergies identified in patient's electronic medical record at time of printing on 09/16/24 Entry 1 Substance ciprofloxacin Reaction Type Side Effect Last Modified By: MELA Hamm 09/16/24 12:44:55 Case Attendance- IR Entry 1 Entry 2 Entry 3 Case Attendee IRMA SHAH, Lead Care Manager Aliza Arias Lead Care Manager Role Performed Primary Surgeon Scrub Technologist Circulating [...] 10 mL Medication CONTRAST ISOVUE 300/30ML 10/CA 945871 Radiology Flouroscopy Fluoroscopy Used? Yes Fluoro Dose [...] Radiology - Action Plan Outcomes Met? Yes Neon Installer MELA Meier Completing Procedure Plan Last Modified By: MELA Meier 09/16/24 14:10:28 Case Comments <None> Finalized By: MELA Meier Document Signatures Signed By: MELA Meier 09/16/24 14:39 [facility] 03-19-2025 Hospital Discharge instructions Patient Education 09/16/2024 14:19:12 Radiology- Procedure/Biopsy 04/10/2024 (CUSTOM) [facility] Radiology Procedure/Biopsy Discharge Instructions Interventional Radiology [facility] Services [address] [place] [address] Today, you had a drain evaluation . [...] 1 to 2 days following the procedure. Mjmw-arl-sfvkjfm pain medication should be used for pain [...] instruction below: 8:00 am- 5:00 pm call [phone] After 24 hours, contact the physician who [...] with primary care provider Address:Unknown When: Unknown [facility] 03-19-2025 Note* Exam Date Time Procedure Performing Provider Status 09/16/24 2:44 PM IR Drainage Cath Inj ection For IRMA Gaviria DO; Auth (Verified) [id number] ORIGINAL PROCEDURE: SPECIAL PROCEDURES. Injection/evaluation of previously [...] the procedure including risks, benefits, and alternatives. [place] protocol was observed. Sterile gowns, masks, hats [...] Sign Date: 09/16/2024 4:50:09 PM Ordering Provider: [facility]03[facility]19[facility]2025 Note IR Procedure Record Summary Primary Physician: IRMA SHAH DO Finalized Date/Time: 09/16/24 14:39:03 Pt. Name: CLARISSE PEGUERO/Sex: 1980 Female Med Rec #: [id number] Physician: Financial #: [id number] Pt. Type: O Room/Bed: / Admit/Disch: 09/16/24 [...] 10 mL Medication CONTRAST ISOVUE 300/30ML 10/CA 718953 Radiology Flouroscopy Fluoroscopy Used? Yes Fluoro Dose [...] Area Hip Side Posterior, Right By Alfa Lead Care Manager Manju Prep Agents Chloraprep Hair Removal Method [...] Radiology - Action Plan Outcomes Met? Yes Neon Installer MELA Meier Completing Procedure Plan Last Modified By: MELA Meier 09/16/24 14:10:28 Case Comments Finalized By: MELA Meier Document Signatures Signed By: MELA Meier 09/16/24 14:39 [id number] Procedure note Date of Service INTERVENTIONAL RADIOLOGY POST PROCEDURE NOTE Pre-Procedure Diagnosis: [pelvic abscess with previously placed external drain catheter ] Post Procedure Diagnosis: Same. Modeling Director: Dr. Irma Shah DO Procedure: [abscessogram ] [...] IRMA SHAH DO on 09/16/2024 02:37 PM [id number] Summary of episode note Discharge Instructions Thank you for allowing [facility] to assist you with your healthcare needs. The following is importantdischarge information regarding your hospital visit. Your Care Team ABDULKADIR ROSALES PA-C What to do next Scheduled Follow-Up Appointments Appointment Type When With Where Contact Information StatusINF/OSP Labwork 09/22/2024 07:45 AM EDT Infusion Therapy Confirmed HEM ONC OV Follow Up w/ Active Treatme 09/22/2024 08:30 AM EDT ROSEANN LUNDBERG MD [facility] Confirmed INF Chemo: Infusion 240 min (4 hours) 09/22/2024 09:00 AM EDT Infusion Therapy Confirmed INF/OSP Labwork 09/24/2024 01:15 PM EDT Infusion Therapy Confirmed INF Chemo: Infusion Pump Discontinue 15 09/24/2024 01:30 PM EDT Infusion Therapy Confirmed GS OV Post Op 10/13/2024 08:15 AM EDT ARLENE RODRIGEZ MD [facility] Confirmed Follow Up Appointments Follow [...] medication providers or retail pharmacies. Education Materials [facility] Radiology Procedure/Biopsy Discharge Instructions Interventional Radiology [facility] Services [address] [place] [address] Today, you had a drain evaluation . [...] 1 to 2 days following the procedure. Duvi-ers-iultxyr pain medication should be used for pain [...] instruction below: 8:00 am- 5:00 pm call [phone] After 24 hours, contact the physician who [...] to receive it can visit one of [facility] vaccine clinics. There are many vaccine clinic locations within the [facility]. For locations and available times, please visit https://[email or web address].[place].gov/. It is important to note that some COVID mobile vaccine clinics are held outdoors and may be canceled in rainy or stormy conditions. To learn more about pediatric vaccinations (ages 5-11), we invite you to visit the [facility] webpage. https://www.[facility].org/pages/7182-Zchjo-Hstlobuwmfr-Bhuitasljw-Dqjbe-Btr stions.htmlTo learn more about the COVID-19 vaccine, we invite you to visit the CDC website for a list of frequently asked questions.https://www.cdc.gov/coronavirus/2019-ncov/vaccines/faq.html [facility] Patient Portal Access Instructions: Stay connected with your healthcare team and access your personal medical information anytime with the [facility] Patient Portal. Please follow the directions below to create your [facility] account: 1.Access the email account you provided upon registration to the hospital/physician office.2.Look for an invitation email from [facility].3.Open the email and access the invitation link: AcceptInvitation to [facility].4.Fill in the required wetzel to create your account. To access your account, visit [email or web address]. Click the blue button labeled Access Patient [...] who you will allowto register on the [facility] Patient Portal for access to your information. You can also access the [facility] Patient Portal on the DanceTrippinwhere patrizia. Simply click on Patient Portal and then log into your account. If you would like to receive a full copy of your medical records, please contact the [facility] Medical Records Department by calling [phone], Saturday through Saturday between 8 a.m. and [...] Call your local pharmacy or go to http://ResearchGate.OdinOtvet/5Q7Pb4p to find one close to you.3.Make use of household items: Use cat litter or old coffee grounds to dispose medications if other options arenot available. Mix your drugs with these household products, seal them in an airtight container andthrow it into the garbage. Call [facility]: [phone] to be sure your drugs can be [...] that I should contact my d octor. Patient/Pretzel Twister Signature: Date/Time: Relationship to Patient: Witness Name/Signature: Date/Time: [id number] Evaluation + Plan noteExtracted from: Title:IR Pre-Procedure [...] 09/15/2024 and can be found in the [facility] Records (Cerner). Polina Donovan PA-C Interventional Radiology Pager: [phone] IR dept: [phone] Available on 10Six Appointments Appointment Date:09/22/2024 07:45:00 AM Scheduled Provider: [...] w/ contrast 03/27/24 * US Renal 04/13/24 [facility] 03-19-2025 History and physical note IR PREPROCEDURE [...] 09/15/2024 and can be found in the [facility] ([facility]). Polina Donovan PA-C Interventional Radiology Pager: [phone] IR dept: [phone] Available on elmenus Digitally Signed by POLINA DONOVAN PA-C on 09/16/2024 01:04 PM Digitally Signed by JODI TREVINO MD on 09/16/2024 01:49 PM [id number] Note* Exam Date Time Procedure Performing Provider Status 09/16/24 12:[address] Abd/Pelvis w/ IV Contrast Only IRMA ORDOÑEZ MD; Auth (Verified) [id number] ORIGINAL EXAMINATION: CT OF THE ABDOMEN AND [...] Sign Date: 09/16/2024 1:39:28 PM Ordering Provider: [facility]03-03-2025 Hospital Discharge instructions Patient Education 08/31/2024 [...] the toilet. 4.Remove the clip or the tnui-yrc-slzh fastener from the tail end of the bag. 5.Unroll the tail, then empty the stool into the toilet. 6.Clean the tail with toilet paper or a moist towelette. 7.Reroll the tail, and close it with the clip or the tnvn-jsr-uzhc fastener. 8.Wash your hands again. How to [...] may use the cool setting on a social sciences chair to do this. 5.Use a tracing pattern [...] with your hands, or blow with a social sciences chair for 5 10 seconds. 9.Remove the paper [...] wet, you can dry it with a social sciences chair on the cool setting. To prevent odor, [...] 06/19/2004 Document Revised: 10/07/2019 Document Reviewed: 12/11/2017 GreenIQ Patient Education 2020 Push Technology. 08/31/2024 10:43:14 8- Agustin Mott Drain (03/2018)(CUSTOM) [...] Document Reviewed: 06/18/2014 ExitCare Patient Information 2015 Epom. This information is not intended to replace advicegiven to you by your health care provider. Make sure you discuss any questions you have with your health care provider. Follow Up Care 08/19/2024 03:53:03 With:KENAN JOSE MD, [facility] Address: [address] [place] [address] [place] [address] [phone] When:1-2 days Comments:As needed, call [phone] with questions regarding your abscess drainage catheter.Plan for a follow up in 1-[address] scan and drainage catheter evaluation at [facility] Interventional [facility]iology With:ARLENE RODRIGEZ MD, Surgery Address: [address] [facility] [address] [facility] [place] [address]- [phone] When:1-2 days Comments:Please call the office upon discharge for an appointment in 2 weeks. With:[facility] Address: When: Unknown Comments:This is your home healthcare provider. Please call if you have questions related to home healthcare. With:ABDULKADIR ROSALES PA-C Address: [address] [place] [address] [place] [address]- [phone] When:1-2 days Comments:Please call the office to schedule a hospital follow up appointment. [facility] 03-03-2025 Discharge summary Discharge Diagnosis 1. Multiloculated [...] Up with KENAN JOSE MD, [facility] When:Within 1-2 days Where:[address] [place] [address] [place] [address]- [phone] Additional Information: As needed, call [phone] with questions regarding your abscess drainage catheter. Plan for a follow up in 1-[address] scan and drainage catheter evaluation at [facility] Follow Up with ARLENE RODRIGEZ MD, Surgery When:Within 1-2 days Where:[address] [facility] [address] [facility] [place] [address]- [phone] Additional Information: Please call the office upon discharge for an appointment in 2 weeks. Follow Up with [facility] Additional Information: This is your home healthcare provider. Please call if you have questions related to home healthcare. Follow Up with ABDULKADIR ROSALES PA-C When:Within 1-2 days Where:[address] [place] [address]- [phone] Additional Information: Please call the office to [...] JASMIN MATA MD on 08/31/2024 11:57 AM [id number] [facility] Hospital Progress note Date of Service [...] 15 mg 1 mL, IV Push, q6hr [facility] communication order 1 EA, Miscellaneous, [...] by TYRONE CHAVES on 08/31/2024 10:20 AM [id number] Note Discharge Instructions Thank you for allowing [facility] to assist you with your healthcare needs. [...] Up with KENAN JOSE MD, [facility] When:Within 1-2 days Where:[address] [place] [address] [place] [address]- [phone] Additional Information: As needed, call [phone] with questions regarding your abscess drainage catheter. Plan for a follow up in 1-[address] scan and drainage catheter evaluation at [facility] Follow Up with ARLENE RODRIGEZ MD, Surgery When:Within 1-2 days Where:[address] [facility] [address] [facility] [place] [address]- [phone] Additional Information: Please call the office upon discharge for an appointment in 2 weeks. Follow Up with [facility] Additional Information: This is your home healthcare provider. Please call if you have questions related to home healthcare. Follow Up with ABDULKADIR ROSALES PA-C When:Within 1-2 days Where:[address] [place] [address]- [phone] Additional Information: Please call the office to [...] 12 hours Duration: 7 Days Pickup at [facility] New metroNIDAZOLE (metroNIDAZOLE 500 mg oral tablet) 1 tab(s) by mouth Every 8 hours Duration: 7 Days Pickup at [facility] Unchanged omeprazole (omeprazole 20 mg oral delayed release capsule) 1 cap by mouth Once a day Unchanged ondansetron (Zofran 8 mg oral tablet) 1 tab(s) by mouth Every 8 hours as needed for Nausea/Vomiting Adenocarcinoma of sigmoid colon Pharmacy Information [facility]: [address] [place] [address] [phone] Please take this list to your next [...] What is ciprofloxacin? Ciprofloxacin is a fluoroquinolone (lnxm-n-PGRP-o-lone) antibiotic, it is used to treat different [...] may report side effects to FDA at 9-358-LNA-4742. What other drugs will affect ciprofloxacin? Some [...] drugs may affect ciprofloxacin, including prescription and flwj-buv-natzeao medicines, vitamins, and herbal products. Not all [...] to ensure that the information provided by [employer]our. ('Multum') is accurate, up-to-date, and complete, but no guarantee is made to that effect. Drug information contained herein may be time sensitive. BinOptics information has been compiled for use by healthcare practitioners and consumers in the [place] and therefore BinOptics does not warrant that uses outside of the [place] are appropriate, unless specifically indicated otherwise. AngioChems drug information does not endorse drugs, diagnose patients or recommend therapy. AngioChems drug information isan informational resource designed to [...] effective or appropriate for any given patient. [employer] does not assume any responsibility for any aspect of healthcare administered with the aid of information BinOpt[employer] provides. The information contained herein is not intended to cover all possible uses, directions, precautions, warnings, drug interactions, allergic reactions, or adverse effects. If you have questions about the drugs you are taking, check with your doctor, nurse or pharmacist. Copyright 9536-1011 vArmour. Version: 23.01. Revision Date: 01/13/2020. metronidazole (oral/injection) (me vargasyenny CALOS ortizeynny) FIRST Metronidazole, Flagyl What is the most [...] (more likely to occur while taking metronidazole firearms sales associate): numbness, tingling, or burning pain in your [...] may report side effects to FDA at 1-209-EXC-4282. What other drugs will affect metronidazole? Sometimes [...] drugs may affect metronidazole. This includes prescriptionand ugnd-rci-nnmxtul medicines, vitamins, and herbal products. Not all [...] to ensure that the information provided by [employer]our. ('Multum') is accurate, up-to-date, and complete, but no guarantee is made to that effect. Drug information contained herein may be time sensitive. BinOptics information has been compiled for use by healthcare practitioners and consumers in the [place] and therefore [employer] does not warrant that uses outside of the [place] are appropriate, unless specifically indicated otherwise. [employer] drug information does not endorse drugs, diagnose patients or recommend therapy. Ang[employer]Chems drug information isan informational resource designed to [...] effective or appropriate for any given patient. [employer] does not assume any responsibility for any aspect of healthcare administered with the aid of information [employer]Opt[employer] provides. The information contained herein is not intended to cover all possible uses, directions, precautions, warnings, drug interactions, allergic reactions, or adverse effects. If you have questions about the drugs you are taking, check with your doctor, nurse or pharmacist. Copyright 7438-3960 [employer]Armour. Version: 18.. Revision Date: 02/14/2023. Education Materials [...] toilet. 4. Remove the clip or the taxl-yua-dwna fastener from the tail end of the bag. 5. Unroll the tail, then empty the stool into the toilet. 6. Clean the tail with toilet paper or a moist towelette. 7. Reroll the tail, and close it with the clip or the duoi-yca-efqu fastener. 8. Wash your hands again. How [...] may use the cool setting on a social sciences chair to do this. 5. Use a tracing [...] with your hands, or blow with a social sciences chair for 5 10 seconds. 9. Remove the [...] wet, you can dry it with a social sciences chair on the cool setting. To prevent odor, [...] Document Reviewed: 12/11/2017 Elsevier Patient Education 2020 GreenIQ Inc. Agustin Mott Drain Patient Education After [...] Document Reviewed: 06/18/2014 ExitCare Patient Information 2015 Epom. This information is not intended to replace [...] are many vaccine clinic locations within the [facility]. For locations and available times, please visit https://gettheshot.coronavirus.[place].gov/. It is important to note that some COVID mobile vaccine clinics are held outdoors and may be canceled in rainy or stormy conditions. To learn more about pediatric vaccinations (ages 5-11), we invite you to visit the [facility] webpage. https://www.akronSokos.org/pages/8682-Bxoua-Fkzstppxvgs-Edsnjcgasb-Orftt-Yds stions.htmlTo learn more about the COVID-19 vaccine, we invite you to visit the CDC website for a list of frequently asked questions.https://www.cdc.gov/coronavirus/2019-ncov/vaccines/faq.html [facility] Patient Portal Access Instructions: Stay connected with your healthcare team and access your personal medical information anytime with the [facility] Patient Portal. Please follow the directions below to create your [facility] account: 1.Access the email account you provided upon registration to the hospital/physician office.2.Look for an invitation email from [facility].3.Open the email and access the invitation link: AcceptInvitation to [facility].4.Fill in the required wetzel to create your account. To access your account, visit [email or web address]. Click the blue button labeled Access Patient Portal and then log in with the username and password that you created in the steps above. You will be able to view your test results, lab results, a summary of your visits, upcoming appointments and more. There is also a convenient messaging option where you can send secure messages to your p Projjixvider. In addition, you will have the ability to download any documents or summaries to your computer and/or send the information securely to a physician. Remember that your healthcare information is confidential, so carefully consider who you will allowto register on the [facility] Patient Portal for access to your information. You can also access the [facility] Patient Portal on the AfterShip Anywhere patrizia. Simply click on Patient Portal and then log into your account. If you would like to receive a full copy of your medical records, please contact the [facility] Medical Records Department by calling [phone], Saturday through Saturday between 8 a.m. and [...] Call your local pharmacy or go to http://ResearchGate.OdinOtvet/6G1Go3f to find one close to you.3.Make use of household items: Use cat litter or old coffee grounds to dispose medications if other options arenot available. Mix your drugs with these household products, seal them in an airtight container andthrow it into the garbage. Call [facility]: [phone] to be sure your drugs can be [...] that I should contact my d octor. Patient/Pretzel Twister Signature: Date/Time: Relationship to Patient: Witness Name/Signature: Date/Time: [facility]bvmbqvf75[facility]68[facility]5334 Note Patient's Ostomy appliance leaking. She could [...] by MELA Jacobson on 08/31/2024 10:20 AM [facility]ullAfwarjyq37-61-3293 Surgery Hospital Progress note Date of Service [...] 15 mg 1 mL, IV Push, q6hr [facility] communication order 1 EA, Miscellaneous, [...] by TYRONE CHAVES on 08/31/2024 10:20 AM [facility]Cpgjmjum13-22-5900 Interventional radiology Progress note Interventional Radiology Progress [...] of 35mL on 08/30/2024. Physical Exam Vitals: Mjjulrrmkko57.6 (06:43) Systolic Blood Nbnbxeiu134 (06:43) Diastolic Blood Qmexxvxf13 (06:43) Pulse76 (06:43) YtG992 (06:43) Respiratory RateNo result General: Alert, nontoxic, [...] placed Deanna Oliver PA-C Interventional Radiology Pager: [phone] IR dept: x [phone] Available on elmenus Digitally Signed by DEANNA OLIVER PA-C on 08/31/2024 08:34 AM Digitally Signed by KENAN JOSE MD on 08/31/2024 02:18 PM [facility]ullDizilkll52-09-8601 Note Skin team received consult for creation [...] 3/4in. Patient provided consent to participate in [facility] Program. See Ostomy IVIEW for assessmentand education. Ostomy care orders provided for bedside nursing. Skin team will continue to follow to provide lessons while inpatient. Patient verbalized understanding and verbalized that she has already watched 3 on-demand ostomy videos since admit. Digitally Signed by MELA Elena September on 08/30/2024 04:59 PM [facility]ullIlpsnqyr79-31-4409 Note* Exam Date Time Procedure Performing Provider Status 08/30/24 3:22 PM VL Venous US/Doppler Both Legs(for DVT) CHARI MEDRANO MD; Auth (Verified) [facility]ullOljcelwv06-02-6943 Note Subjective: Patient seen for multiloculated pelvic [...] Rate67(AUG 29 23:08)67(AUG 29 23:08)67(AUG 29 23:08) VPJ252(AUG 30 14:43)100(AUG 30 07:45)124(AUG 29 23:08) DBP71(AUG [...] 24 hours Anticipated DC Disposition Home c [facility] Labs: Basic Metabolic Profile Glucose Level: 137 [...] 15 mg 1 mL, IV Push, q6hr [facility] communication order 1 EA, Miscellaneous, [...] JASMIN MATA MD on 08/30/2024 03:20 PM [place] [id number] Surgery Hospital Progress note Date of Service [...] ARLENE RODRIGEZ MD on 08/30/2024 09:32 AM [facility]ullIrlkmmfs66-92-5876 Oncology Progress note Date of Service 08/29/24 [...] on antimicrobial therapy at discharge. Time Spent 39378 Digitally Signed by ROSEANN LUNDBERG MD on 08/29/2024 02:53 PM [facility]ullFcacuepp65-04-2096 Note Subjective: Patient seen for multiloculated pelvic [...] RateL 59(AUG 29:15)L 59(AUG 29:)107(AUG 28 13:50) UQE109(AUG 29:)95(AUG 28 13:50)122(AUG 28 15:30) DBP68(AUG 29:)52(AUG [...] Discharge 24 hours Anticipated DC Disposition Home [facility] Labs: Basic Metabolic Profile Glucose Level: [...] JASMIN MATA MD on 08/29/2024 01:53 PM [facility]ullViqwzqqx58-76-6310 Surgery Hospital Progress note Date of Service [...] (one day only), Blood, Once, Preferred Lab: [facility], Stop date 08/29/24 5:01:00 EST Complete Blood Count(CBC), 08/29/24 5:01:00 EST, Next AM Draw (one day only), Blood, Once, Preferred Lab: [facility], Stop date 08/29/24 5:01:00 EST Consult to Skin Team Nurse, 08/28/24 14:45:00 EST, New Ostomy Discontinue Order, 08/29/24 6:00:00 EST, Once, Discontinue banks catheter POD #1, 08/29/24 6:00:00 EST Incentive Spirometer, 08/28/24 14:45:00 EST, [id number], After extubation. IV Catheter Insertion/Care(Peripheral IV Insertion/Care), [...] ARLENE RODRIGEZ MD on 08/29/2024 09:15 AM [facility]ullHtdwudil52-58-0034 Infectious disease Progress note Date of Service [...] by MARISA MARTIN on 08/29/2024 01:33 PM [facility]ullZhfwrbcc97-39-5446 Anesthesiology Consult note Patient: CLARISSE PEGUERO Age: [...] LYRIC COULTER DO on 08/28/2024 04:25 PM [facility]ullLqhzwvyr59-71-5329 Note* Exam Date Time Procedure Performing Provider Status 08/28/24 3:49 PM US Anesthesia Block Auth (Verified) [id number] ORIGINAL Images acquired, not reported on this accession number. [facility]ullUavsirck37-56-2534 Procedure note Patient: CLARISSE PEGUERO Age: 44 years Sex: Female : 1980 Associated Diagnoses: None Author: LYRIC COULTER DO Visit Information Location: [facility]. Reason: Postoperative Pain Management, Surgeon Request. Timing: Preoperative. Start Time (1324) Stop Time (1334) Time Out Performed: Refer to [place] Time Out Form, Patient was confirmed by [...] LYRIC COULTER DO on 08/28/2024 01:35 PM [facility]ullVfhavadc18-31-5888 Note Subjective: Patient seen for multiloculated pelvic abscesses patient was examined and evaluated today, patient denies chest pain, no shortness of breath, no cough, no fever or chills, abdominal pain has improved, patient is n.p.o. for planned surgery today fordiverting colostomy. Family were at the bedside. Vitals Signs(Last 24 hrs)__Last Charted Minimum Maximum Temp37.2(AUG 28 10:26)37(AUG 27 15:55)H 38.6(AUG 27 22:57) DLH403(AUG 28 12:55)107(AUG 28 12:55)118(AUG 27 15:55) DBPL [...] 48 hours Anticipated DC Disposition Home c [facility] Labs: Basic Metabolic Profile Glucose Level: 110 [...] JASMIN MATA MD on 08/28/2024 01:16 PM [facility]ullLoxrulrh57-10-6793 Anesthesiology Consult note Patient: CLARISSE PEGUERO Age: [...] flush (drains): 10 mL, IR Drain, q8h [place] 325- 5 mg oral tablet: 2 tab(s), [...] Problem list: Medical Heartburn / SNOMED CT 12092155 / Confirmed Bilateral hip pain / SNOMED CT 44423089 / Confirmed History of DVT of lower extremity / SNOMED CT 4988230029 / Confirmed Hydronephrosis, right / SNOMED CT 40336082 / Confirmed, Active Problems (11) Acid reflux [...] Deep vein thrombosis Father Procedure history: MRI ([id number]) on 08/01/2024 at 44 Years. Comments: 08/04/2024 9:43 ELLEN - Audie Medina LPN of liver insertion of left chest port using fluoroscopic and ultrasound guidance ([id number]) on 07/23/2024 at44 Years. Extraction of wisdom tooth ([id number]). Colonoscopy (286801047). Biopsy of liver (157544358). Social History: Social & Psychosocial Habits Alcohol [...] Charted Temp Oral37.2 DegC (AUG 28 10:26) WJR973 mmHg (AUG 28 12:55) DBPL 58 mmHg [...] Tube Activity: Assessed Surgical Drain, Tube Care: [place] collapsed Surgical Drain Site Condition: No complications [...] evident Teaching Method Explanation Preferred Spoken Language Surinamese Preferred Written Language Surinamese Pain Medication Education Pain scale, Name, Purpose, [...] Tube Activity: Assessed Surgical Drain, Tube Care: [place] collapsed Surgical Drain Site Condition: No complications [...] bed 08/27/2024 19:50 EST Nail Bed Color [place] Capillary Refill < 2 seconds Dorsalis Pedis [...] Temperature All Extremities Warm Mucous Membrane Color [place] Mucous Membrane Description Moist Neurological Language Able [...] Regular 08/27/2024 15:43 EST Preferred Spoken Language Surinamese 08/27/2024 15:42 EST Preferred Spoken Language Surinamese 08/27/2024 15:40 EST Preferred Spoken Language Surinamese 08/27/2024 15:00 EST Agustin-Pantera # 1 Buttock [...] Tube Activity: Assessed Surgical Drain, Tube Care: [place] collapsed Surgical Drain Site Condition: No complications [...] 0.9% 50 mL mL 08/27/2024 12:08 EST Beam Worker Note GI Navigator Tracking note 08/27/2024 11:52 [...] Tube Activity: Assessed Surgical Drain, Tube Care: [place] collapsed Surgical Drain Site Condition: No complications [...] Pain Scale Type PAINAD Nail Bed Color [place] Capillary Refill < 2 seconds Heart Rhythm [...] Temperature All Extremities Warm Mucous Membrane Color [place] Mucous Membrane Description Moist Sensory Perception Momo [...] evident Teaching Method Explanation Preferred Spoken Language Surinamese Preferred Written Language Surinamese Disease Process General Education Signs/Symptoms to report [...] Tube Activity: Assessed Surgical Drain, Tube Care: [place] collapsed Surgical Drain Site Condition: No complications [...] 10 mL mL . Assessment and Plan [place] Society of Anesthesiologists (ASA) physical status classification: [...] LYRIC COULTER DO on 08/28/2024 01:06 PM [facility]ullMpsldqvi47-56-3157 Infectious disease Progress note Date of Service [...] syringe 40 mg 0.4 mL, Subcutaneous, qDay [facility] communication order 1 EA, Miscellaneous, [...] by MARISA MARTIN on 08/28/2024 03:20 PM [facility]ullStirisyt26-64-8610 Oncology Progress note Date of Service 08/27/24 [...] completion of antimicrobial therapy . Time Spent 26646 Digitally Signed by ROSEANN LUNDBERG MD on 08/27/2024 06:22 PM [facility]ullZmelufcb01-10-5693 Infectious disease Progress note Date of Service [...] by MARISA MARTIN on 08/27/2024 02:46 PM [facility]ullUguhfpsj94-49-9021 Interventional radiology Progress note Interventional Radiology Progress [...] drain was in place. Physical Exam Vitals: Ijreosvtmrl22 (07:27) Systolic Blood Pbnbknzl799 (07:27) Diastolic Blood Dcvefzck89 (07:27) Pulse68 (07:27) JaZ038 (07:27) Respiratory RateNo result General: Alert, nontoxic, [...] catheter Polina Donovan PA-C Interventional Radiology Pager: [phone] IR dept: x [phone] Available on elmenus Digitally Signed by POLINA DONOVAN PA-C on 08/27/2024 09:27 AM Digitally Signed by KENAN JOSE MD on 08/27/2024 11:59 AM [facility]ullZtfyswlg94-64-3016 Note* Exam Date Time Procedure Performing Provider Status 08/26/24 3:51 PM IR Aspiration/Drainage KENAN JOSE MD ; Auth (Verified) [id number] ORIGINAL HISTORY: ORDERING SYSTEM PROVIDED HISTORY: Reason for Exam: multiple pelvic abscesses TECHNIQUE: Dose modulation, iterative reconstruction, and/or weight based adjustment of the mA/kV was utilized to reduce the radiation dose to as low as reasonably achievable. PROCEDURE: 1. CT guided percutaneous drainage catheter placement, right lower pelvis CULINARY INTERNSHIP: Dr. Jose Resident: Dr. Yoon MATERIALS: 18 [...] Sign Date: 08/29/2024 7:16:07 PM Ordering Provider: [facility]02-26-2025 Procedure note Brief IR Post Procedure Note - Inpatient/Obs Pre Procedure Dx: Pelvic Abscess Post Procedure Dx: Same Procedure: 1. CT Guided Drainage Catheter Placement Modeling Director: Rebeca Resident: Car Anesthesia: Local, moderate sedation [...] Cerner. Edilma Yoon MD V/IR Resident, PGY-5 [place] IR Dept (21/01): [phone] [facility] [id number] [facility] Digitally Signed by EDILMA YOON MD on 08/26/2024 03:15 PM Digitally Signed by KENAN JOSE MD on 08/26/2024 05:51 PM [facility]ullKthbpisz90-34-7357 Note IR Procedure Record Summary Primary Physician: KENAN JOSE MD Finalized Date/Time: 08/26/24 15:10:48 Pt. Name: SUDHIRCLARISSE /Sex: 1980 Female Med Rec #: [id number] Physician: VANESSA CAMPBELL MD Financial #: [id number] Pt. Type: I Room/Bed: [facility] Admit/Disch: 08/19/24 03:51:18 - Institution: Allergies identified in patient's electronic medical record at time of printing on 08/26/24 Entry 1 Substance NKA Reaction Type Allergy Last Modified By: Gisselle Hector RN 03/09/24 04:11:39 Case Attendance- IR Entry 1 Entry 2 Entry 3 Case Attendee KENAN JOSE MD, RN Jennifer M Myers, Jessica DAVID Role Performed Primary Surgeon Procedure Nurse Equipment Cleaner And Tester Details Time In 08/26/24 14:05:00 08/26/24 14:05:00 [...] Radiology - Action Plan Outcomes Met? Yes Neon Installer MELA Hooks Completing Procedure Plan Last Modified [...] Hooks 08/26/24 15:10 MELA Hooks 08/26/24 15:10 [facility]ullTydxitod79-82-3618 Oncology Progress note Date of Service 08/24/24 Chief Complaint Follow up Subjective Doing better , still having fever , pain improved . Was worried about continuing chemo given complications. Told her that I will reach out to her surgeon Dr. Rodrigez as well as Dr. Clinton William at [facility]. She remains on broad-spectrum antibiotics. Objective Vitals [...] qDay micafungin 100 mg, IV Piggyback, qDay [facility] communication order 1 EA, Miscellaneous, [...] to convey recommendations from surgical oncology at [facility]. Will also reach out to Dr. Rodrigez . Time Spent 99220 Digitally Signed by ROSEANN LUNDBERG MD on 08/25/2024 05:40 PM [facility]ullQiayzlsl83-62-4892 Note* Exam Date Time Procedure Performing Provider Status 08/22/24 11:[address] Abdomen/Pelvis w/Contrast Gene ORDOÑEZ MD; Auth (Verified) [id number] ORIGINAL EXAMINATION: CT OF THE ABDOMEN AND [...] 08/22/2024 12:18:42 PM Ordering Provider: SANTOS DELGADO [facility]02-20-2025 Progress note Date of Service 08/20/2024 [...] awake and alert. No acute distress Skin: [place] warm and dry Lungs/chest: Respirations easy. Lungs [...] by GAYATRI RIVERA on 08/20/2024 09:17 AM [facility]ullLcmycgar20-00-7952 Infectious disease Consult note Date of Service [...] mg= 1 tab(s), Oral, qHS, PRN meropenem [place] 325- 5 mg oral tablet, 2 tab(s), [...] CH BA, MD on 08/20/2024 05:40 PM [facility]ullSuodidcx29-43-9538 Progress note Date of Service 08/20/2024 This [...] awake and alert. No acute distress Skin: [place] warm and dry Lungs/chest: Respirations easy. Lungs [...] Rodrigez, addendum to follow Digitally Signed by AGYATRI RIVERA on 08/20/2024 09:17 AM [facility]ullLhuahdqz23-91-7282 Oncology Consult note Date of Service 08/19/2024 [...] by PLACIDO RUIZ on 08/19/2024 02:56 PM [facility]ullMnjmjgxi46-93-5849 History and physical note Date of Service [...] Blood, q24h, for 10 day(s), Preferred Lab: [facility], Stop date 08/29/24 5:00:00 EST Blood [...] Draw (one day only), Blood, Once, Preferred Lab:[facility], Stop date 08/20/24 5:00:00 EST Communication Order (continuous), 08/19/24 12:17:00 EST, Stat EKG will be obtained in the setting of new, ongoing or worsening chest discomfort/acute coronary syndrome symptoms in all nursing units and/or rhythm change in all monitored units., Constant order Complete Blood Count(CBC), 08/20/24 5:00:00 EST, Next AM Draw (one day only), Blood, Once, Preferred Lab: [facility], Stop date 08/20/24 5:00:00 EST Consult to Physician, 08/19/24 12:41:00 EST, ROSEANN LUNDBERG MD, Routine, NF Consult to Physician, 08/19/24 12:18:00 EST, SANTOS CH BA, MD, Routine, NF Creatinine, 08/20/24 5:00:00 EST, Next AM Draw (one day only), Blood, Once, Preferred Lab: [facility], Stop date 08/20/24 5:00:00 EST Intake and Output, 08/19/24 12:17:00 EST, q8h (2p, 10p, 6a) IV Catheter Insertion/Care(Peripheral IV Insertion/Care), 08/19/24 12:17:00 EST, IV Care: q4h, Rotate when clinically indicated & q7day drsg change Magnesium Level, 08/20/24 5:00:00 EST, Next AM Draw (one day only), Blood, q24h, for 10 day(s), Preferred Lab: [facility], Stop date 08/29/24 5:00:00 EST NPO, 08/19/24 12:17:00 EST, Constant Order, Give PO Meds Phosphorus Level, 08/20/24 5:00:00 EST, Next AM Draw (one day only), Blood, q24h, for 10 day(s), Preferred Lab: [facility], Stop date 08/29/24 5:00:00 EST Prn [...] Assistance Vancomycin Pharmacist Monitoring, 08/20/24 6:00:00 EST, [id number], entered secondary to Vancomycin order Vital Signs, [...] at risk of deterioration Vanessa Campbell MD [facility] Hospitalist Messenger patrizia or Pager [phone] Problem List/Past Medical History Ongoing Bilateral hip [...] VANESSA CAMPBELL MD on 08/19/2024 02:24 PM [id number] Evaluation + Plan noteExtracted from: Title:History and [...] Blood, q24h, for 10 day(s), Preferred Lab: [facility], Stop date 08/29/24 5:00:00 EST Blood [...] (one day only), Blood, Once, Preferred Lab: [facility], Stop date 08/20/24 5:00:00 EST Communication Order (continuous), 08/19/24 12:17:00 EST, Stat EKG will be obtained in the setting of new, ongoing or worsening chest discomfort/acute coronary syndrome symptoms in all nursing units and/or rhythm change in all monitored units., Constant order Complete Blood Count(CBC), 08/20/24 5:00:00 EST, Next AM Draw (one day only), Blood, Once, Preferred Lab: [facility], Stop date 08/20/24 5:00:00 EST Consult to Physician, 08/19/24 12:41:00 EST, ROSEANN LUNDBERG MD, Routine, NF Consult to Physician, 08/19/24 12:18:00 EST, SANTOS CH BA, MD, Routine, NF Creatinine, 08/20/24 5:00:00 EST, Next AM Draw (one day only), Blood, Once, Preferred Lab: [facility], Stop date 08/20/24 5:00:00 EST Intake and Output, 08/19/24 12:17:00 EST, q8h (2p, 10p, 6a) IV Catheter Insertion/Care(Peripheral IV Insertion/Care), 08/19/24 12:17:00 EST, IV Care: q4h, Rotate when clinically indicated & q7day drsg change Magnesium Level, 08/20/24 5:00:00 EST, Next AM Draw (one day only), Blood, q24h, for 10 day(s), Preferred Lab: [facility], Stop date 08/29/24 5:00:00 EST NPO, 08/19/24 12:17:00 EST, Constant Order, Give PO Meds Phosphorus Level, 08/20/24 5:00:00 EST, Next AM Draw (one day only), Blood, q24h, for 10 day(s), Preferred Lab: [facility], Stop date 08/29/24 5:00:00 EST Prn [...] Assistance Vancomycin Pharmacist Monitoring, 08/20/24 6:00:00 EST, [id number], entered secondary to Vancomycin order Vital Signs, [...] at risk of deterioration Vanessa Campbell MD [facility] Hospitalist Messenger patrizia or Pager [phone] Future Scheduled Tests Laboratory* Carcinoembryonic Antigen 09/01/24 * Complete Blood Count 08/25/24 * Complete Blood Count 08/13/24 * Complete Blood Count 09/01/24 * Complete Metabolic Panel 08/25/24 * Complete Metabolic Panel 09/01/24 * [facility] Lab Send Out (Non-Blood Specimens) 07/30/24 Radiology* IR Drainage Cath Injection for Eval 09/07/24 * CT Thorax w/ Contrast 06/17/24 * CT Abd/Pelvis w/ IV Contrast Only 09/07/24 * XR Hip 3-4 Views Bilateral 08/13/24 * CT Abdomen and Pelvis w/ contrast 06/17/24 * CT Abdomen and Pelvis w/ contrast 03/27/24 * US Renal 04/13/24 [facility] 02-19-2025 Oncology Consult note Date of Service [...] by PLACIDO RUIZ on 08/19/2024 02:56 PM [facility]ullXodtotge35-39-9474 Consult note Date of Service 08/19/2024 Reason for Consultation Colon cancer with pelvic abscess History of Present Illness Patient is a 44-year-old female, well-known to surgical service, with history of metastatic colon cancer. Patient recent underwent left sided port placement. She is undergoing neoadjuvant therapy with plans for surgical excision at [facility]. Patient presents the emergency department due to [...] ultimately require repeat imaging and/or transfer to [facility] for definitive management. Will continue to follow [...] ARLENE RODRIGEZ MD on 08/19/2024 11:45 AM [facility]ullEcjvkqma24-14-3524 Note* Exam Date Time Procedure Performing Provider Status 08/19/24 8:37 AM EKG (ED) - CV REGGIE LOVING MD; A [facility] (Verified) ECG Final Report SINUS TACHYCARDIA BORDERLINE LEFT AXIS DEVIATION BORDERLINE T ABNORMALITIES, INFERIOR LEADS Electronic Signature: REGGIE LOVING MD 08/19/2024 08:50:00 [facility]ullEhsplzzb08-30-0508 Note* Exam Date Time Procedure Performing Provider Status 08/19/24 6:[address] Abd/Pelvis w/ IV Contrast Only LAUREANO SALGADO MD; Auth (Verified) [id number] ORIGINAL EXAMINATION: CT OF THE ABDOMEN AND [...] Sign Date: 08/19/2024 7:31:39 AM Ordering Provider: [facility]02-18-2025 History of Present illness Narrative* Paulo Avila [...] all questions were answered. documented in this [facility] Work Phone: [phone]) 399-583402-18-2025 Summary of episode note CLARISSE PEGUERO :1980 [...] Treatment 08/25/2024 08:30 AM ROSEANN THOMPSON MD [place] [facility] Confirmed INF Chemo: Infusion [...] to receive it can visit one of [facility] vaccine clinics. There are many vaccine clinic locations within the [facility]. For locations and available times, please visit www.[email or web address].[email or web address]/. It is important to note that some COVID mobile vaccine clinics are held outdoors and may be canceled in rainy or stormy conditions. To learn more about pediatric vaccinations (ages 5-11), we invite you to visit the [facility] webpage. https://www.Simply Zestys.org/pages/3818-Ytgex-Gkhuntodvwp-Zgdmsdhtxk-Jqpmf-Yzw stions.htmlTo learn more about the COVID-19 vaccine, we invite you to visit the CDC website for a list of frequently asked questions. https://www.cdc.gov/coronavirus/2019-ncov/vaccines/faq.html [place] Patient Portal Access Instructions: Stay connected with your healthcare team and access your personal medical information anytime with the [facility] Patient Portal.If you would like a full copy of your medical records, please contact the [facility] Medical Records Department, Saturday through Saturday between 8a.m. and 4:30p.m. Please follow the directions below to access the portal: 1.Access the email account you provided upon registration to the [facility].2.Look for an invitation email from [facility].3.Open the email and access the invitation link: Accept Invitation to [facility]4.Fill in the required wetzel to create your account. Sign into [email or web address] with your username and password that you [...] you will allow to register on the [facility] Patient Portal for access to your information. You can also access the [facility] Patient Portal on the [employer]. Simply click on Health Records under MyMedMatch and then click on the AfterShip logo. HOW TO SAFELY DISPOSE OF PRESCRIPTION [...] Call your local pharmacy or go to http://ResearchGate.OdinOtvet/6W2Ce3c to find one close to you.3.Make use of household items: Use cat litter or old coffee grounds to dispose medications if other options arenot available. Mix your drugs with these household products, seal them in an airtight container andthrow it into the garbage. Call [facility]: [phone] to be sure your drugs can be [...] that I should contact my david kumar. Patient/Pretzel Twister Signature: Date/Time: Relationship to Patient: Witness Name/Signature: Date/Time: [facility]ullImznezir20-76-4797 Summary of episode note CLARISSE PEGUERO :1980 [...] that I should contact my david kumar. Patient/Pretzel Twister Signature: Date/Time: Relationship to Patient: Witness Name/Signature: Date/Time: [facility]ullEyoodngy10-89-4320 History of Present illness Narrative* Justice Perea [...] care of this patient. Justice Perea MD radiology interventional physician Division of Surgical Oncology [phone] [email or web address] History Of Present Illness Clarisse Peguero is [...] bile duct (Multi) COMPARISON: None. ACCESSION NUMBER(S): [id number] ORDERING CLINICIAN: JUSTICE PEREA TECHNIQUE: MRI LIVER; [...] of dedicated chest imaging. documented in this [facility] Work Phone: 1(972) 850-767502-04-2025 Summary of episode note CLARISSE PEGUERO :1980 [...] 08/07/2024 08:45 AM EST ARLENE RODRIGEZ MD [facility] Surgery Confirmed HEM ONC OV Follow Up w/Active Treatment 09/01/2024 09:45 AM ROSEANN THOMPSON MD [facility] Confirmed Medications What How [...] to receive it can visit one of [facility] vaccine clinics. There are many vaccine clinic locations within the [facility]. For locations and available times, please visit www.gettheshot.coronavirus.[place].gov/. It is important to note that some COVID mobile vaccine clinics are held outdoors and may be canceled in rainy or stormy conditions. To learn more about pediatric vaccinations (ages 5-11), we invite you to visit the [facility] webpage. https://www.Simply Zestys.org/pages/2382-Cutqn-Akjhbbvgttd-Yvhmcproux-Kelsr-Wem stions.htmlTo learn more about the COVID-19 vaccine, we invite you to visit the CDC website for a list of frequently asked questions. https://www.cdc.gov/coronavirus/2019-ncov/vaccines/faq.html [facility] Patient Portal Access Instructions: Stay connected with your healthcare team and access your personal medical information anytime with the [facility] Patient Portal.If you would like a full copy of your medical records, please contact the [facility] Medical Records Department, Saturday through Saturday between 8a.m. and 4:30p.m. Please follow the directions below to access the portal: 1.Access the email account you provided upon registration to the hospital.2.Look for an invitation email from [facility].3.Open the email and access the invitation link: Accept Invitation to [facility]4.Fill in the required wetzel to create your account. Sign into [email or web address] with your username and password that you [...] you will allow to register on the [facility] Patient Portal for access to your information. You can also access the [facility] Patient Portal on the Tact[employer]ize. Simply click on Health Records under MyMedMatch and then click on the AfterShip logo. HOW TO SAFELY DISPOSE OF PRESCRIPTION [...] Call your local pharmacy or go to http://ResearchGate.OdinOtvet/5Q7Nv6y to find one close to you.3.Make use of household items: Use cat litter or old coffee grounds to dispose medications if other options arenot available. Mix your drugs with these household products, seal them in an airtight container andthrow it into the garbage. Call [facility]: [phone] to be sure your drugs can be [...] that I should contact my d octor. Patient/Pretzel Twister Signature: Date/Time: Relationship to Patient: Witness Name/Signature: Date/Time: [id number] Hospital Discharge instructions Patient Education 07/23/2024 16:27:29 [...] well as any vitamins, herbs, eye drops,creams, hphz-kmn-aasctda medicines, and steroids. Any problems you or [...] provider tells you to take them. ?Taking xwdg-seb-hisiyqb medicines, vitamins, herbs, and supplements. Staying hydrated [...] your procedure. You will be given a webbing inspector's information card for the type of port [...] provider, usually every few weeks. Keep your webbing inspector's information card with you at all times. This information is not intended to replace advice given to you by your health care provider. Make sure you discuss any questions you have with your health care provider. Document Released: 04/07/2014 Document Revised: 10/09/2019 Document Reviewed: 01/13/2019 [employer] Patient Education 2020 [employer] Follow Up Care 07/17/2024 09:39:18 With:ARLENE RODRIGEZ MD, Surgery Address: [address] [place] [address] [address] [facility] [place] [address] [phone] When: Unknown Comments:Follow-up as scheduled [facility] 01-23-2025 Anesthesiology Consult note Patient: CLARISSE PEGUERO [...] IRMA IRIZARRY MD on 07/23/2024 06:23 PM [id number] Summary of episode note Discharge Instructions Thank you for allowing [facility] to assist you with your healthcare needs. [...] 08/07/2024 08:45 AM EST ARLENE RODRIGEZ MD [facility] Surgery Confirmed Follow Up Appointments Follow Up with ARLENE RODRIGEZ MD, Surgery Where:[address] [facility] [address] [place] [address]- [phone] Additional Information: Follow-up as scheduled The Following [...] When Why Instructions Last Dose New acetaminophen-hydrocodone (Anchorage 325- 5 mg oral tablet) 1 tab(s) by mouth Every 6 hours as needed for for pain After care Duration: 7 Days Pickup at [facility] New acetaminophen-hydrocodone (Anchorage 325- 5 mg oral tablet) 1 tab(s) by mouth Every 6 hours as needed for for pain After care Duration: 7 Days Pickup at [facility] Unchanged herbal/ nutritional product (Probiotic) 1 tab(s) by mouth Once a day Unchanged omeprazole (omeprazole 20 mg oral delayed release capsule) 1 cap by mouth Once a day Unchanged ondansetron (Zofran 8 mg oral tablet) 1 tab(s) by mouth Every 8 hours as needed for Nausea/Vomiting Adenocarcinoma of sigmoid colon Pharmacy Information [facility]: [address] [place] [address] [phone] Please take this list to your next [...] well as any vitamins, herbs, eye drops,creams, kxgi-oop-lveoykn medicines, and steroids. Any problems you or [...] tells you to take them. ? Taking nxyk-gfn-rjlqkpe medicines, vitamins, herbs, and supplements. Staying hydrated [...] your procedure. You will be given a webbing inspector's information card for the type of port [...] provider, usually every few weeks. Keep your webbing inspector's information card with you at all times. This information is not intended to replace advice given to you by your health care provider. Make sure you discuss any questions you have with your health care provider. Document Released: 04/07/2014 Document Revised: 10/09/2019 Document Reviewed: 01/13/2019 [employer] Patient Education 2020 [employer] Additional Information VACCINATE! IT SAVES LIVES! Members of the community who have not yet received the COVID-19 vaccine and would like to receive it can visit one of [facility] vaccine clinics. There are many vaccine clinic locations within the [facility]. For locations and available times, please visit https://gettheshot.coronavirus.[place].gov/. It is important to note that some COVID mobile vaccine clinics are held outdoors and may be canceled in rainy or stormy conditions. To learn more about pediatric vaccinations (ages 5-11), we invite you to visit the [facility] webpage. https://www.[facility].org/pages/5620-Rzser-Njjwtcrfcvj-Plbwcjdpnc-Dcdqn-Zse stions.htmlTo learn more about the COVID-19 vaccine, we invite you to visit the CDC website for a list of frequently asked questions.https://www.cdc.gov/coronavirus/2019-ncov/vaccines/faq.html [facility] Patient Portal Access Instructions: Stay connected with your healthcare team and access your personal medical information anytime with the [facility] Patient Portal. Please follow the directions below to create your [facility] account: 1.Access the email account you provided upon registration to the hospital/physician office.2.Look for an invitation email from [facility].3.Open the email and access the invitation link: AcceptInvitation to [facility].4.Fill in the required wetzel to create your account. To access your account, visit [email or web address]. Click the blue button labeled Access Patient [...] who you will allowto register on the [facility] for access to your information. You can also access the [facility] on the [facility] Any[facility] patrizia. Simply click on Patient Portal and then log into your account. If you would like to receive a full copy of your medical records, please contact the [facility] Medical Records Department by calling [phone], Saturday through Saturday between 8 a.m. and [...] Call your local pharmacy or go to http://ResearchGate.OdinOtvet/3X9Gp9j to find one close to you.3.Make use of household items: Use cat litter or old coffee grounds to dispose medications if other options arenot available. Mix your drugs with these household products, seal them in an airtight container andthrow it into the garbage. Call [facility]: [phone] to be sure your drugs can be [...] that I should contact my d octor. Patient/Pretzel Twister Signature: Date/Time: Relationship to Patient: Witness Name/Signature: Date/Time: [id number] Note* Exam Date Time Procedure Performing Provider Status 07/23/24 3:20 PM XR Fluoro Venous Access Device ZAK GOMEZ MD; Auth (Verified) [id number] ORIGINAL EXAMINATION: FLUOROGUIDE VEIN DEVICE07/23/2024 3:20 pm [...] 07/23/2024 4:15:24 PM Ordering Provider: ARLENE RODRIGEZ [id number] Anesthesiology Consult note Patient: CLARISSE PEGUERO Age: [...] Day of Tx, Day 1 Prescriptions Prescribed Anchorage 325- 5 mg oral tablet: 1 tab(s), [...] Problem list: Medical Heartburn / SNOMED CT 29247082 / Confirmed History of DVT of lower extremity / SNOMED CT 3628282401 / Confirmed Hydronephrosis, right / SNOMED CT 19834546 / Confirmed, Active Problems (10) Acid reflux Adenocarcinoma of sigmoid colon Anemia BMI 39.0-39.9,adult Diverticulitis Heartburn History of DVT of lower extremity Hydronephrosis, right Personal history of COVID-19 Runny nose Histories Past Medical History: No active or resolved past medical history items have been selected or recorded. Procedure history: Extraction of wisdom tooth (534642090). Colonoscopy (712213462). Biopsy of liver (395154011). Social History: Social & Psychosocial Habits Alcohol [...] Weight Lbs 222.2 lb Weight Method Actual [place] Body Weight 52.38 kg Admission Body Mass [...] records, Reviewed prior records. Assessment and Plan [place] Society of Anesthesiologists (ASA) physical status classification: [...] HELEN ARGUELLO MD on 07/23/2024 01:31 PM [id number] History and physical note Date of Service 07/23/2024 History and Physical Update I have examined the patient; reviewed the History and Physical and there are no changes to the History and Physical unless noted below. Digitally Signed by ARLENE RODRIGEZ MD on 07/23/2024 06:58 AM [id number] Evaluation + Plan noteExtracted from: Title:IR pre [...] paper, which has been scanned into the [facility] PACS/RIS system. _ Future Appointments Appointment Date:07/17/2024 [...] 07/27/24 * Complete Metabolic Panel 07/27/24 * [facility] Send out (Blood Specimens) 07/10/24 Radiology* CT Thorax w/ Contrast 06/17/24 * CT Abdomen and Pelvis w/ contrast 06/17/24 * CT Abdomen and Pelvis w/ contrast 03/27/24 * US Renal 04/13/24 [facility] 01-16-2025 Hospital Discharge instructions Patient Education 07/16/2024 10:59:06 Radiology- US Liver Biospy 04/10/2024 (CUSTOM) [facility] Liver Biopsy Discharge Instructions Ultrasound Department [facility] Imaging Services [address] [address] Today, you had a biopsy of your [...] 1 to 2 days following the procedure. Xitw-vrx-cdjymsq pain medication should be used for pain [...] instruction below: 8:00 am- 5:00 pm call [phone] After 24 hours, contact the physician who [...] until you are awake and alert. Take dgss-dxi-mcpwssy and prescription medicines only as told by [...] 04/07/2014 Document Revised: 05/30/2018 Document Reviewed: 10/06/2016 [employer] Patient Education [employer]. Follow Up Care 07/02/2024 09:52:25 With:ARLENE RODRIGEZ MD, Surgery Address: [address] [place] [address] [address] [place] [address] [phone] When: Unknown Comments:Follow-up as scheduled With:Go to emergency room if symptoms worsen Address:Unknown When: Unknown [facility] 01-16-2025 Note* MELA Hooks: SIGN, AUTHOR, PERFORM Event Display: IR Procedure Record Authored Date: [id number] IR Procedure Record Summary Primary Physician: KENAN JOSE MD Finalized Date/Time: 07/16/24 10:07:09 Pt. Name: SUDHIRCLARISSE D.O.B./Sex: 1980 Female Med Rec #: [id number] Physician: Financial #: [id number] Pt. Type: O Room/Bed: / Admit/Disch: 07/16/24 07:00:24 - Institution: Allergies identified in patient's electronic medical record at time of printing on 07/16/24 Entry 1 Substance NKA Reaction Type Allergy Last Modified By: Gisselle Hector RN 03/09/24 04:11:39 Case Attendance- IR Entry 1 Entry 2 Entry 3 Case Attendee KENAN JOSE MD, [facility] MELA Sims Role Performed Primary Surgeon Equipment Cleaner And Tester Procedure Nurse Details Time In 07/16/24 09:10:00 [...] tolerated gel foam and embo cube used [id number] Last Modified By: MELA Hooks 07/16/24 09:55:28 [...] Car, Administration of Present for Time Out Lead Care Manager Lianna A, Blood, Confirmation MELA Hooks correct side and site marked, Relevant images and results are properly labeled and appropriately displayed, Confirm/obtain preop antibiotic order., Alcohol based prep dry, Double verification of sterility indicators complete Instrument Sterility Team Members KENAN JOSE MD, Car, Verifying Sterility Lead Care Manager Lianna A Procedure IR Biopsy Liver SN [...] Radiology - Action Plan Outcomes Met? Yes Neon Installer MELA Hooks Completing Procedure Plan Last Modified By: MELA Hooks 07/16/24 07:59:09 Transfer Post Procedure- IR Entry 1 RAD - Transport to Recovery Patient Transported IV Via Cart With Post-op Destination Receiving Transported By MELA Hooks, Car [facility] Lianna Bolton Post Procedure Time Out Double Verification Yes Date/Time Verified 07/16/24 10:05:00 of ID band on patient Completed Verfied ID Band on MELA Hooks, by Abraham Yoon Tech Lianna Bolton Last Modified By: MELA Hooks 07/16/24 10:06:56 Case Comments <None> Finalized By: MELA Hooks Document Signatures Signed By: MELA Hooks 07/16/24 10:07 [facility] 01-16-2025 Summary of episode note Discharge Instructions Thank you for allowing [facility] to assist you with your healthcare needs. The following is importantdischarge information regarding your hospital visit. Your Care Team ABDULKADIR ROSALES PA-C What to do next Scheduled Follow-Up Appointments Appointment Type When With Where Contact Information StatusGS OV 07/17/2024 09:00 AM ARLENE BRANNON MD [facility] Surgery Confirmed HEM ONC Lab Only 07/24/2024 12:30 PM [facility] Confirmed INF/OSP Labwork 07/24/2024 12:30 PM EST Infusion Therapy Confirmed HEM ONC Chemo Teaching 07/24/2024 01:00 PM KB FITZGERALD APRN-YUSRA [facility] Confirmed INF/OSP Labwork 08/04/2024 [...] Follow Up with ARLENE RODRIGEZ MD, Surgery Where:[address] [place] [address] [address] [place] [address]- [phone] Additional Information: Follow-up as scheduled Follow Up [...] medication providers or retail pharmacies. Education Materials [facility] Liver Biopsy Discharge Instructions Ultrasound Department [facility] Imaging Services [address] [place] [address] Today, you had a biopsy of your [...] 1 to 2 days following the procedure. Adjt-ows-vfycprv pain medication should be used for pain [...] instruction below: 8:00 am- 5:00 pm call [phone] After 24 hours, contact the physician who [...] until you are awake and alert. Take mlct-tnv-inyeopm and prescription medicines only as told by [...] Document Reviewed: 10/06/2016 Elsevier Patient Education 2020 [employer] Additional Information VACCINATE! IT SAVES LIVES! Members of the community who have not yet received the COVID-19 vaccine and would like to receive it can visit one of [facility] vaccine clinics. There are many vaccine clinic locations within the [facility]. For locations and available times, please visit https://gettheshot.coronavirus.[place].gov/. It is important to note that some COVID mobile vaccine clinics are held outdoors and may be canceled in rainy or stormy conditions. To learn more about pediatric vaccinations (ages 5-11), we invite you to visit the [facility] webpage. https://www.Simply Zestys.org/pages/1397-Hazvu-Uegiexoztsx-Bovnvabjjv-Ktjjo-Kab stions.htmlTo learn more about the COVID-19 vaccine, we invite you to visit the CDC website for a list of frequently asked questions.https://www.cdc.gov/coronavirus/2019-ncov/vaccines/faq.html [facility] Patient Portal Access Instructions: Stay connected with your healthcare team and access your personal medical information anytime with the [facility] Patient Portal. Please follow the directions below to create your [facility] account: 1.Access the email account you provided upon registration to the hospital/physician office.2.Look for an invitation email from [facility].3.Open the email and access the invitation link: AcceptInvitation to [facility].4.Fill in the required wetzel to create your account. To access your account, visit [email or web address]. Click the blue button labeled Access Patient [...] who you will allowto register on the [facility] Patient Portal for access to your information. You can also access the [facility] on the [facility] Anywhere patrizia. Simply click on Patient Portal and then log into your account. If you would like to receive a full copy of your medical records, please contact the [facility] Medical Records Department by calling [phone], Saturday through Saturday between 8 a.m. and [...] Call your local pharmacy or go to [email or web address] [email or web address] to find one close to you.3.Make use of household items: Use cat litter or old coffee grounds to dispose medications if other options arenot available. Mix your drugs with these household products, seal them in an airtight container andthrow it into the garbage. Call [facility]: [phone] to be sure your drugs can be [...] that I should contact my d octor. Patient/Pretzel Twister Signature: Date/Time: Relationship to Patient: Witness Name/Signature: Date/Time: [id number] Note IR Procedure Record Summary Primary Physician: KENAN JOSE MD Finalized Date/Time: 07/16/24 10:07:09 Pt. Name: CLARISSE PEGUERO /Sex: 1980 Female Med Rec #: [id number] Physician: Financial #: [id number] Pt. Type: O Room/Bed: / Admit/Disch: 07/16/24 07:00:24 - Institution: Allergies identified in patient's electronic medical record at time of printing on 07/16/24 Entry 1 Substance NKA Reaction Type Allergy Last Modified By: Gisselle Hector RN 03/09/24 04:11:39 Case Attendance- IR Entry 1 Entry 2 Entry 3 Case Attendee KENAN JOSE MD [facility] MELA Sims Role Performed Primary Surgeon Equipment Cleaner And Tester Procedure Nurse Details Time In 07/16/24 09:10:00 [...] tolerated gel foam and embo cube used [id number] Last Modified By: MELA Hooks 07/16/24 09:55:28 [...] Car, Administration of Present for Time Out Lead Care Manager Lianna A, Blood, Confirmation MELA Hooks correct side and site marked, Relevant images and results are properly labeled and appropriately displayed, Confirm/obtain preop antibiotic order., Alcohol based prep dry, Double verification of sterility indicators complete Instrument Sterility Team Members KENAN JOSE MD, Car, Verifying Sterility Lead Care Manager Lianna A Procedure IR Biopsy Liver SN [...] Radiology - Action Plan Outcomes Met? Yes Neon Installer MELA Hooks Completing Procedure Plan Last Modified [...] Signatures Signed By: MELA Hooks 07/16/24 10:07 [id number] History and physical note IR PREPROCEDURE H&P [...] paper, which has been scanned into the [facility] PACS/RIS system. _ Digitally Signed by JAMI MUÑOZ PA-C on 07/16/2024 07:51 AM Digitally Signed by KENAN JOSE MD on 07/16/2024 11:17 AM [id number] Evaluation + Plan note Future Scheduled Tests Radiology* IR Biopsy Liver 06/19/24 * CT Thorax w/ Contrast 06/17/24 * CT Abdomen and Pelvis w/ contrast 06/17/24 * CT Abdomen and Pelvis w/ contrast 03/27/24 * US Renal 04/13/24 [facility] 10-16-2024 Note* MELA Mahan: SIGN, AUTHOR, PERFORM Event Display: IR Procedure Record Authored Date: [id number] IR Procedure Record Summary Primary Physician: JODI TREVINO MD Finalized Date/Time: 04/15/24 14:37:39 Pt. Name: CLARISSE PEGUERO /Sex: 1980 Female Med Rec #: [id number] Physician: Financial #: [id number] Pt. Type: O Room/Bed: / Admit/Disch: 04/15/24 [...] L Role Performed Primary Surgeon Scrub Technologist Eeg Technologist 1 Details Time In 04/15/24 14:29:00 04/15/24 [...] mL Medication OMNIPAQUE 350 50ML 10/PK Y-540 [facility] 4714-7061-56 Radiology Flouroscopy Fluoroscopy Used? Yes Fluoro Dose [...] and MELA Mahan, results are properly Bollon, Lead Care Manager Kerry A labeled and appropriately displayed, Alcohol [...] Radiology - Action Plan Outcomes Met? Yes Neon Installer MELA Mahan Completing Procedure Plan Last Modified By: MELA Mahan 04/15/24 14:23:28 Case Comments <None> Finalized By: MELA Mahan Document Signatures Signed By: MELA Mahan 04/15/24 14:37 [facility] 10-16-2024 Hospital Discharge instructions Patient Education 04/15/2024 14:35:22 Radiology- Procedure/Biopsy 04/10/2024(CUSTOM) [facility] Radiology Procedure/Biopsy Discharge Instructions Interventional Radiology [facility] Imaging Services [address] [address] Today, you had a . This procedure/biopsy [...] 1 to 2 days following the procedure. Ndgf-jry-zotyuzr pain medication should be used for pain [...] instruction below: 8:00 am- 5:00 pm call [phone] After 24 hours, contact the physician who [...] with primary care provider Address:Unknown When: Unknown [facility] 10-16-2024 Note IR Procedure Record Summary Primary Physician: JODI TREVINO MD Finalized Date/Time: 04/15/24 14:37:39 Pt. Name: CLARISSE PEGUERO/Sex: 1980 Female Med Rec #: [id number] Physician: Financial #: [id number] Pt. Type: O Room/Bed: / Admit/Disch: 04/15/24 [...] L Role Performed Primary Surgeon Scrub Technologist Eeg Technologist 1 Details Time In 04/15/24 14:29:00 04/15/24 [...] 2 mL Medication OMNIPAQUE 350 50ML Y-540 [facility] 3635-3004-55 Radiology Flouroscopy Fluoroscopy Used? Yes Fluoro Dose [...] and MELA Mahan, results are properly Bollon, Lead Care Manager Kerry A labeled and appropriately displayed, Alcohol [...] Radiology - Action Plan Outcomes Met? Yes Neon Installer MELA Mahan Completing Procedure Plan Last Modified By: MELA Mahan 04/15/24 14:23:28 Case Comments Finalized By: MELA Mahan Document Signatures Signed By: MELA Mahan 04/15/24 14:37 [id number] Summary of episode note Discharge Instructions Thank you for allowing [facility] to assist you with your healthcare needs. The following is importantdischarge information regarding your hospital visit. Your Care Team ABDULKADIR ROSALES PA-C What to do next Scheduled Follow-Up Appointments Appointment Type When With Where Contact Information StatusGS OV Check after Test 05/05/2024 08:15 AM ARLENE BRANNON MD [facility] Confirmed Follow Up Appointments Follow [...] medication providers or retail pharmacies. Education Materials [facility]UV[facility]NA Radiology Procedure/Biopsy Discharge Instructions Interventional Radiology [facility] Imaging Services [address] [place] [address] Today, you had a . This procedure/biopsy [...] 1 to 2 days following the procedure. Tmsr-gpc-mhnxbtg pain medication should be used for pain [...] instruction below: 8:00 am- 5:00 pm call [phone] After 24 hours, contact the physician who [...] to receive it can visit one of [facility] vaccine clinics. There are many vaccine clinic locations within the [facility]. For locations and available times, please visit https://[email or web address].[email or web address].gov/. It is important to note that some COVID mobile vaccine clinics are held outdoors and may be canceled in rainy or stormy conditions. To learn more about pediatric vaccinations (ages 5-11), we invite you to visit the [facility] webpage. https://www.[facility].org/pages/7630-Uiffw-Cgrfbgrjxgu-Wlldccszkx-Osbas-Wsm stions.htmlTo learn more about the COVID-19 vaccine, we invite you to visit the CDC website for a list of frequently asked questions.https://www.cdc.gov/coronavirus/2019-ncov/vaccines/faq.html [facility] Patient Portal Access Instructions: Stay connected with your healthcare team and access your personal medical information anytime with the [facility] Patient Portal. Please follow the directions below to create your [facility] account: 1.Access the email account you provided upon registration to the hospital/physician office.2.Look for an invitation email from [facility].3.Open the email and access the invitation link: AcceptInvitation to [facility].4.Fill in the required wetzel to create your account. To access your account, visit [email or web address]. Click the blue button labeled Access Patient [...] who you will allowto register on the [facility] Patient Portal for access to your information. You can also access the [facility] Patient Portal on the [facility] patrizia. Simply click on Patient Portal and then log into your account. If you would like to receive a full copy of your medical records, please contact the [facility] Medical Records Department by calling [phone], Saturday through Saturday between 8 a.m. and [...] Call your local pharmacy or go to http://ResearchGate.OdinOtvet/9L9Sb2d to find one close to you.3.Make use of household items: Use cat litter or old coffee grounds to dispose medications if other options arenot available. Mix your drugs with these household products, seal them in an airtight container andthrow it into the garbage. Call [facility]: [phone] to be sure your drugs can be [...] that I should contact my d octor. Patient/Pretzel Twister Signature: Date/Time: Relationship to Patient: Witness Name/Signature: Date/Time: [id number] Evaluation + Plan noteExtracted from: Title:IR Pre-Procedure [...] 100 in lifetime), denies. Physical Exam Vitals: Ugtrfxbddxx62.7 (13:27) Systolic Blood Nspgumqz126 (13:27) Diastolic Blood Wldbnyix14 (13:27) Pulse78 (13:27) HfK076 (13:27) Respiratory RateNo result General: Alert, cooperative. [...] home. Polina Donovan PA-C Interventional Radiology Pager: [phone] IR dept: x [phone] Available on elmenus Future Appointments Appointment Date:05/05/2024 08:15:00 AM Scheduled Provider:ARLENE RODRIGEZ MD Location:Gen Surg CAN Appointment Type:GS OV Check after Test Future Scheduled Tests Radiology* CT Abdomen and Pelvis w/ contrast 03/27/24 * US Renal 04/13/24 [facility] 10-16-2024 Note Interventional Radiology Focused Preprocedure History/Physical [...] 100 in lifetime), denies. Physical Exam Vitals: Sotgmplvezz29.7 (13:27) Systolic Blood Kjyguvla483 (13:27) Diastolic Blood Fxzaylsa70 (13:27) Pulse78 (13:27) HlS779 (13:27) Respiratory RateNo result General: Alert, cooperative. [...] home. Polina Donovan PA-C Interventional Radiology Pager: [phone] dept: x [phone] Available on elmenus Digitally Signed by POLINA DONOVAN PA-C on 04/15/2024 01:56 PM Digitally Signed by JODI TREVINO MD on 04/15/2024 03:51 PM [id number] Evaluation + Plan noteExtracted from: Title:IR pre [...] paper, which has been scanned into the [facility] PACS/RIS system. _ Future Appointments Appointment Date:04/13/2024 01:20:00 PM Scheduled Provider:ROSA LOVE Location:UROLOGY Appointment Type:URO OV Appointment Date:04/15/2024 02:00:00 PM Scheduled Provider: Location:IR Appointment Type:IR Drainage Cath Injection for Eval Appointment Date:05/05/2024 08:15:00 AM Scheduled Provider:ARLENE RODRIGEZ MD Location:Gen Surg CAN Appointment Type:GS OV Check after Test Future Scheduled Tests Radiology* CT Abdomen and Pelvis w/ contrast 03/27/24 * US Renal 04/13/24 [facility] 10-03-2024 Note* Santa Garcia RN: SIGN, AUTHOR, SIGN, AUTHOR, PERFORM Event Display: IR Procedure Record Authored Date: [id number] IR Procedure Record Summary Primary Physician: IRMA SHAH DO Finalized Date/Time: 04/02/24 11:33:38 Pt. Name: CLARISSE PEGUERO/Sex: 1980 Female Med Rec #: [id number] Physician: Financial #: [id number] Pt. Type: O Room/Bed: / Admit/Disch: 04/02/24 09:51:00 - Institution: Allergies identified in patient's electronic medical record at time of printing on 04/02/24 Entry 1 Substance NKA Reaction Type Allergy Last Modified By: Gisselle Hector RN 03/09/24 04:11:39 Case Attendance- IR Entry 1 Entry 2 Entry 3 Case Attendee IRMA SHAH Lead Care ManagerJames Beltre Role Performed Primary Surgeon Scrub Technologist [...] indicators complete Instrument Sterility Team Members IRMA HSAH DO, Verifying Sterility Abraham Perera Procedure IR [...] Radiology - Action Plan Outcomes Met? Yes Neon Installer Santa Garcia RN Completing Procedure Plan Last Modified By: Santa Garcia RN 04/02/24 10:46:28 Case Comments <None> Finalized By: Santa Garcia RN Document Signatures Signed By: Santa Garcia RN 04/02/24 11:33 Santa Garcia RN 04/02/24 11:33 [facility] 10-03-2024 Hospital Discharge instructions Patient Education 04/02/2024 10:49:55 Radiology- Procedure/Biopsy 10/14/2019 (CUSTOM) [facility] Radiology Procedure/Biopsy Discharge Instructions Interventional Radiology [facility] Imaging Services [address] [place] [address] Today, you had a drain evaluation. This [...] 1 to 2 days following the procedure. Udzw-rrm-eppklxl pain medication should be used for pain [...] instruction below: 8:00 am- 5:00 pm call [phone] After 5:00 pm call [phone] After 24 hours, contact the physician who [...] with primary care provider Address:Unknown When: Unknown [facility] 10-03-2024 Note ORIGINAL PROCEDURE: SPECIAL PROCEDURES 04/02/2024 HISTORY: ORDERING SYSTEM PROVIDED HISTORY: Reason for Exam: Right transgluteal drain for pelvic abscess; mostly resolved with small residual. Possible removal. Pt see's ID in [place] Apr 02 8:15am. TECHNIQUE: Local sterile field [...] the procedure including risks, benefits, and alternatives. [place] protocol was observed. Sterile gowns, masks, hats [...] Sign Date: 04/02/2024 3:56:31 PM Ordering Provider: [facility]10-03-2024 Procedure note Date of Service INTERVENTIONAL RADIOLOGY POST PROCEDURE NOTE Pre-Procedure Diagnosis: [ pelvic diverticular abscess with previously placed drain catheter] Post Procedure Diagnosis: Same. Modeling Director: Dr. Irma Shah DO Procedure: [ catheter [...] IRMA SHAH DO on 04/02/2024 11:41 AM [id number] Note IR Procedure Record Summary Primary Physician: IRMA SHAH DO Finalized Date/Time: 04/02/24 11:33:38 Pt. Name: CLARISSE PEGUERO/Sex: 1980 Female Med Rec #: [id number] Physician: Financial #: [id number] Pt. Type: O Room/Bed: / Admit/Disch: 04/02/24 09:51:00 - Institution: Allergies identified in patient's electronic medical record at time of printing on 04/02/24 Entry 1 Substance NKA Reaction Type Allergy Last Modified By: Gisselle Hector RN 03/09/24 04:11:39 Case Attendance- IR Entry 1 Entry 2 Entry 3 Case Attendee IRMA SHAH DO Bolloelizabeth, Lead Care ManagerJames Beltre Role Performed Primary Surgeon Scrub Technologist [...] Injection for Eval SN Last Modified By: aSnta Garcia RN 04/02/24 11:27:30 Radiology Procedures- IR [...] Radiology - Action Plan Outcomes Met? Yes Neon Installer Santa Garcia RN Completing Procedure Plan Last Modified By: Santa Garcia RN 04/02/24 10:46:28 Case Comments Finalized By: Santa Garcia RN Document Signatures Signed By: Santa Garcia RN 04/02/24 11:33 Santa Garcia RN 04/02/24 11:33 [id number] Summary of episode note Discharge Instructions Thank you for allowing [facility] to assist you with your healthcare needs. The following is importantdischarge information regarding your hospital visit. Your Care Team JAMES WILCOX MD What to do next Scheduled Follow-Up Appointments Appointment Type When With Where Contact Information StatusURO OV 04/13/2024 01:20 PM EDT ROSA LOVE APRN-WASHCLOTH FOLDER [facility] Confirmed GS OV Check after Test 05/05/2024 08:15 AM ARLENE BRANNON MD [facility] Confirmed Follow Up Appointments Follow [...] medication providers or retail pharmacies. Education Materials FLUV[facility]NA Radiology Procedure/Biopsy Discharge Instructions Interventional Radiology [facility] [address] [facility] [address] Today, you had a drain evaluation. This [...] 1 to 2 days following the procedure. Qpuf-bud-rfgpinu pain medication should be used for pain [...] instruction below: 8:00 am- 5:00 pm call [phone] After 5:00 pm call [phone] After 24 hours, contact the physician who [...] to receive it can visit one of [facility] vaccine clinics. There are many vaccine clinic locations within the [facility]. For locations and available times, please visit [email or web address].gov/. It is important to note that some COVID mobile vaccine clinics are held outdoors and may be canceled in rainy or stormy conditions. To learn more about pediatric vaccinations (ages 5-11), we invite you to visit the [facility] webpage. https://www.[facility].org/pages/6608-Fnrmb-Sanhdpghkdz-Ohrfqhnkzz-Oglgr-Lrz stions.htmlTo learn more about the COVID-19 vaccine, we invite you to visit the CDC website for a list of frequently asked questions.https://www.cdc.gov/coronavirus/2019-ncov/vaccines/faq.html [facility] Patient Portal Access Instructions: Stay connected with your healthcare team and access your personal medical information anytime with the [facility] Patient Portal. Please follow the directions below to create your [facility] account: 1.Access the email account you provided upon registration to the hospital/physician office.2.Look for an invitation email from [facility].3.Open the email and access the invitation link: AcceptInvitation to [facility].4.Fill in the required wetzel to create your account. To access your account, visit [email or web address]. Click the blue button labeled Access Patient [...] who you will allowto register on the [facility] Patient Portal for access to your information. You can also access the [facility] Patient Portal on the [facility] patrizia. Simply click on Patient Portal and then log into your account. If you would like to receive a full copy of your medical records, please contact the [facility] Medical Records Department by calling [phone], Saturday through Saturday between 8 a.m. and [...] Call your local pharmacy or go to http://ResearchGate.OdinOtvet/0E8Kr6c to find one close to you.3.Make use of household items: Use cat litter or old coffee grounds to dispose medications if other options arenot available. Mix your drugs with these household products, seal them in an airtight container andthrow it into the garbage. Call [facility]: [phone] to be sure your drugs can be [...] aware that I should contact my doctor. Patient/Pretzel Twister Signature: Date/Time: Relationship to Patient: Witness Name/Signature: Date/Time: [id number] History and physical note IR PREPROCEDURE H&P [...] paper, which has been scanned into the [facility] PACS/RIS system. _ Digitally Signed by JAMI MUÑOZ PA-C on 04/02/2024 10:33 AM Digitally Signed by IRMA SHAH DO on 04/02/2024 01:36 PM [id number] Evaluation + Plan note Future Scheduled Tests Radiology* CT Abdomen and Pelvis w/ contrast 03/27/24 * US Renal 04/13/24 [facility] 09-23-2024 Note* MELA Mahan: SIGN, AUTHOR, PERFORM Event Display: IR Procedure Record Authored Date: [id number] IR Procedure Record Summary Primary Physician: KENAN JOSE MD Finalized Date/Time: 03/23/24 14:50:59 Pt. Name: CLARISSE PEGUERO /Sex: 1980 Female Med Rec #: [id number] Physician: Financial #: [id number] Pt. Type: O Room/Bed: / Admit/Disch: 03/23/24 [...] 3 mL Medication CONTRAST ISOVUE 300/30ML 10/CA 171580 Radiology Flouroscopy Fluoroscopy Used? Yes Fluoro Dose [...] Radiology - Action Plan Outcomes Met? Yes Neon Installer MELA Mahan Completing Procedure Plan Last Modified By: MELA Mahan 03/23/24 14:49:02 Case Comments <None> Finalized By: MELA Mahan Document Signatures Signed By: MELA Mahan 03/23/24 14:50 [facility] 09-23-2024 Hospital Discharge instructions Patient Education 03/23/2024 14:38:14 Radiology- Procedure/Biopsy 10/14/2019 (CUSTOM) [facility] Radiology Procedure/Biopsy Discharge Instructions Interventional Radiology [facility] Imaging Services [address] [place] [address] Today, you had a _Drain cath evaluation. [...] 1 to 2 days following the procedure. Purc-jbu-dvtmgyp pain medication should be used for pain [...] instruction below: 8:00 am- 5:00 pm call [phone] After 5:00 pm call [phone] After 24 hours, contact the physician who [...] with primary care provider Address:Unknown When: Unknown [facility] 09-23-2024 Note IR Procedure Record Summary Primary Physician: KENAN JOSE MD Finalized Date/Time: 03/23/24 14:50:59 Pt. Name: CLARISSE PEGUERO/Sex: 1980 Female Med Rec #: [id number] Physician: Financial #: [id number] Pt. Type: O Room/Bed: / Admit/Disch: 03/23/24 [...] 3 mL Medication CONTRAST ISOVUE 300/30ML 10/CA 053412 Radiology Flouroscopy Fluoroscopy Used? Yes Fluoro Dose [...] Radiology - Action Plan Outcomes Met? Yes Neon Installer MELA Mahan Completing Procedure Plan Last Modified By: MELA Mahan 03/23/24 14:49:02 Case Comments Finalized By: MELA Mahan Document Signatures Signed By: MELA Mahan 03/23/24 14:50 [id number] Summary of episode note Discharge Instructions Thank you for allowing [facility] to assist you with your healthcare needs. The following is importantdischarge information regarding your hospital visit. Your Care Team JAMES WILCOX MD What to do next Scheduled Follow-Up Appointments Appointment Type When With Where Contact Information StatusGS Hospital Follow Up 03/27/2024 10:00 AM ARLENE HYDE MD [facility] Confirmed URO OV 04/16/2024 10:20 AM ROSA ERICKSON UNDERCUTTER 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 FOLDER [facility] Confirmed Follow Up Appointments Follow Up [...] medication providers or retail pharmacies. Education Materials [facility]NA Radiology Procedure/Biopsy Discharge Instructions Interventional Radiology [facility] Imaging Services [address] [place] [address] Today, you had a _Drain cath evaluation. [...] 1 to 2 days following the procedure. Vkib-cpa-usxglra pain medication should be used for pain [...] instruction below: 8:00 am- 5:00 pm call [phone] After 5:00 pm call [phone] After 24 hours, contact the physician who [...] to receive it can visit one of [facility] vaccine clinics. There are many vaccine clinic locations within the [facility]. For locations and available times, please visit https://[email or web address].[place].gov/. It is important to note that some COVID mobile vaccine clinics are held outdoors and may be canceled in rainy or stormy conditions. To learn more about pediatric vaccinations (ages 5-11), we invite you to visit the [facility] webpage. https://www.[facility].org/pages/3720-Jrwjm-Otbexumpabs-Jmayixrlhk-Agdhq-Snw stions.htmlTo learn more about the COVID-19 vaccine, we invite you to visit the CDC website for a list of frequently asked questions.https://www.cdc.gov/coronavirus/2019-ncov/vaccines/faq.html [facility] Patient Portal Access Instructions: Stay connected with your healthcare team and access your personal medical information anytime with the [facility] Patient Portal. Please follow the directions below to create your [facility] account: 1.Access the email account you provided upon registration to the hospital/physician office.2.Look for an invitation email from [facility].3.Open the email and access the invitation link: AcceptInvitation to [facility].4.Fill in the required wetzel to create your account. To access your account, visit [email or web address]. Click the blue button labeled Access Patient [...] who you will allowto register on the [facility] Patient Portal for access to your information. You can also access the [facility] Patient Portal on the [facility] patrizia. Simply click on Patient Portal and then log into your account. If you would like to receive a full copy of your medical records, please contact the [facility] Medical Records Department by calling [phone], Saturday through Saturday between 8 a.m. and [...] Call your local pharmacy or go to http://ResearchGate.OdinOtvet/4L0Nk9j to find one close to you.3.Make use of household items: Use cat litter or old coffee grounds to dispose medications if other options arenot available. Mix your drugs with these household products, seal them in an airtight container andthrow it into the garbage. Call [facility]: [phone] to be sure your drugs can be [...] aware that I should contact my doctor. Patient/Pretzel Twister Signature: Date/Time: Relationship to Patient: Witness Name/Signature: Date/Time: [id number] Evaluation + Plan noteExtracted from: Title:IR pre [...] paper, which has been scanned into the [facility] PACS/RIS system. _ Future Appointments Appointment Date:03/27/2024 10:00:00 AM Scheduled Provider:ARLENE RODRIGEZ MD Location:Gen Surg CAN Appointment Type:[facility] Hospital Follow Up Appointment Date:04/02/2024 11:00:00 AM Scheduled Provider: Location:IR Appointment Type:IR Drainage Cath Injection for Eval Appointment Date:04/13/2024 01:20:00 PM Scheduled Provider:ROSA LOVE APRN-WASHCLOTH FOLDER Location:UROLOGY Appointment Type:URO OV Future Scheduled Tests Radiology* IR Drainage Cath Injection for Eval 04/02/24 * US Renal 04/13/24 [facility] 09-23-2024 History and physical note IR PREPROCEDURE [...] paper, which has been scanned into the [facility] PACS/RIS system. _ Digitally Signed by JAMI MUÑOZ PA-C on 03/23/2024 01:43 PM Digitally Signed by KENAN JOSE MD on 03/23/2024 02:09 PM [id number] Hospital Discharge instructions Patient Education 03/16/2024 12:23:20 [...] placed at your back, or any other kdmq-sb-ezdzi area, ask another person to assist you [...] and water are not available, use hand food production supervisor. 3.Remove the old dressing. Avoid using scissors [...] and water are not available, use hand food production supervisor. 3.Loosen any pins or clips that hold [...] placed at your back, or any other fpbv-xo-otcnz area, ask another person to assist you. Contact your health care provider if you have redness, swelling, or pain around your drain area. This information is not intended to replace advice given to you by your health care provider. Make sure you discuss any questions you have with your health care provider. Document Released: 06/14/2001 Document Revised: 07/22/2019 Document Reviewed: 07/22/2019 [employer] Patient Education 2019 [employer]. 03/16/2024 09:09:41 Sepsis, Diagnosis, Adult Sepsis, Diagnosis, [...] Follow these instructions at home: Medicines Take ttfa-cvh-hiqsmoz and prescription medicines only as told by [...] 03/15/2004 Document Revised: 01/23/2019 Document Reviewed: 01/23/2019 [employer] Patient Education 2020 [employer]. Follow Up Care 03/09/2024 01:06:08 With:ROSA LOVE Address: [address] [place] [address] [address] [facility] [place] [address] [phone] Business (1) When:1-2 days Comments:please keep scheduled apt on 04/16/24 With:SANTOS CH Address: [facility] [address] [place] [address]- [phone] Business (1) When:1-2 days Comments:follow up for 2 weeks With:NOEL EASTMAN Address: [address] [facility] [place] [place] [address]- Business (1) When:1-2 days Comments:please follow up with GI for colonoscopy With:ARLENE RODRIGEZ MD, Surgery Address: [address] [place] [address] [address] [facility] [place] [address] [phone] When:03/27/2024 10:00:00 Comments:follow up within 2-4 weeks With:JAMES WILCOX MD Address: [address] [place] [address]- When:1-2 days Comments:Please call the office to schedule a hospital follow-up appointment With:IRMA SHAH DO, [facility] Address: [address] [place] [address] [place] [address]- [phone] When: Unknown Comments:As needed, call [phone] with questions regarding your abscess drainage catheter.Plan for a follow up in 1-[address] scan and drainage catheter evaluation at [facility]. [facility] 09-16-2024 Note Discharge Instructions Thank you for allowing [facility] to assist you with your healthcare needs. [...] Up 03/27/2024 10:00 AM ARLENE HYDE MD [facility] Confirmed URO OV 04/16/2024 10:20 AM ROSA ERICKSON APRN-WASHCLOTH FOLDER [facility] Confirmed Follow Up Appointments Follow Up with ROSA LOVE When:Within 1-2 days Where:[address] [facility] [address] [facility] [place] [address]- [phone] Business (1) Additional Information: please keep scheduled apt on 04/16/24 Follow Up with SANTOS CH When:Within 1-2 days Where:[facility] [address] [place] [address] [phone] Business (1) Additional Information: follow up for 2 weeks Follow Up with NOEL EASTMAN When:Within 1-2 days Where:[address] [facility] [place] [address]- Business (1) Additional Information: please follow up with GI for colonoscopy Follow Up with JAMES WILCOX MD When:Within 1-2 days Where:[address] [place] [address]- Additional Information: Please call the office to schedule a hospital follow-up appointment Follow Up with IRMA SHAH DO, [facility] Where:[address] [place] [address] [place] [address]- [phone] Additional Information: As needed, call [phone] with questions regarding your abscess drainage catheter. Plan for a follow up in 1-[address] scan and drainage catheter evaluation at [facility]. Follow Up with ARLENE RODRIGEZ MD, Surgery When:03/27/2024 10:00 AM EDT Where:[address] [facility] [address] [facility] [place] [address]- [phone] Additional Information: follow up within 2-4 weeks [...] 12 hours Duration: 21 Days Pickup at [facility] New metroNIDAZOLE (metroNIDAZOLE 500 mg oral tablet) 1 tab(s) by mouth Three (3) times a day Duration: 21 Days Pickup at [facility] Unchanged omeprazole (PriLOSEC OTC) 40 Milligram by mouth Once a day patient buys OTC Pharmacy Information [facility]: [address] [place] [address] [phone] Please take this list to your next [...] placed at your back, or any other tysn-ky-vlyuz area, ask another person to assist you [...] and water are not available, use hand food production supervisor. 3. Remove the old dressing. Avoid using [...] and water are not available, use hand food production supervisor. 3. Loosen any pins or clips that [...] placed at your back, or any other hbqq-wl-woptm area, ask another person to assist you. Contact your health care provider if you have redness, swelling, or pain around your drain area. This information is not intended to replace advice given to you by your health care provider. Make sure you discuss any questions you have with your health care provider. Document Released: 06/14/2001 Document Revised: 07/22/2019 Document Reviewed: 07/22/2019 [employer] Patient Education 2020 [employer] Sepsis, Diagnosis, Adult Sepsis is a [...] Follow these instructions at home: Medicines Take debx-xye-utugnmd and prescription medicines only as told by [...] 03/15/2004 Document Revised: 01/23/2019 Document Reviewed: 01/23/2019 [employer] Patient Education 2020 [employer] Additional Information VACCINATE! IT SAVES LIVES! Members of the community who have not yet received the COVID-19 vaccine and would like to receive it can visit one of [facility] vaccine clinics. There are many vaccine clinic locations within the [facility]. For locations and available times, please visit https://gettheshot.coronavirus.[place].gov/. It is important to note that some COVID mobile vaccine clinics are held outdoors and may be canceled in rainy or stormy conditions. To learn more about pediatric vaccinations (ages 5-11), we invite you to visit the [facility] webpage. https://www.[facility].org/pages/6427-Cgfjr-Ahosxjorrla-Kciiyfdnga-Ilsds-Hgo stions.htmlTo learn more about the COVID-19 vaccine, we invite you to visit the CDC website for a list of frequently asked questions.https://www.cdc.gov/coronavirus/2019-ncov/vaccines/faq.html [facility] Patient Portal Access Instructions: Stay connected with your healthcare team and access your personal medical information anytime with the [facility] Patient Portal. Please follow the directions below to create your [facility] account: 1.Access the email account you provided upon registration to the hospital/physician office.2.Look for an invitation email from [facility].3.Open the email and access the invitation link: AcceptInvitation to [facility].4.Fill in the required wetzel to create your account. To access your account, visit [email or web address]. Click the blue button labeled Access Patient [...] who you will allowto register on the [facility] Patient Portal for access to your information. You can also access [facility] on the [facility] patrizia. Simply click on Patient Portal and then log into your account. If you would like to receive a full copy of your medical records, please contact the [facility] Medical Records Department by calling [phone], Saturday through Saturday between 8 a.m. and [...] Call your local pharmacy or go to http://ResearchGate.OdinOtvet/3S4Uq6f to find one close to you.3.Make use of household items: Use cat litter or old coffee grounds to dispose medications if other options arenot available. Mix your drugs with these household products, seal them in an airtight container andthrow it into the garbage. Call [facility]: [phone] to be sure your drugs can be [...] aware that I should contact my doctor. 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 Patient presented to [facility] for complaints of abdominal pain with loose bowel movements over the past several days. CT of abdomenpelvis performed at [facility] showed evidence of a diverticulitis with possible small perforationand abscess formation. Patient also noted to have elevated troponins peaking at 230. EKG read sinusrhythm without ischemia. Patient transferred to [facility] on 03/09/2024 for further evaluation. Lab work at [facility] showed leukocytosis of 13, hemoglobin was 7, potassium 3.4. Lactic acid was 1.5. Troponin was 80. COVID/flu/RSV negative. C. difficile PCR was negative. Urine culture showed no growth. Patient was started on broad-spectrum antibiotic of Zosyn. General surgery recommended conservative treatment for diverticulitis, her diet was advanced. Cardiology was consulted for elevated troponin, felt this was a type II AK in setting of infection, recommended echocardiogram and [...] IMPRESSION: Successful CT guided placement of 10 Palestinian pelvic abscess drainage catheterplacement. 115 mL frankly [...] with ROSA LOVE When:Within 1-2 days Where:[address] [facility] [address] [facility] [place] [address] [phone] Business (1) Additional Information: please keep scheduled apt on 04/16/24 Follow Up with SANTOS CH When:Within 1-2 days Where:[facility] [address] [place] [address] [phone] Business (1) Additional Information: follow up for 2 weeks Follow Up with NOEL EASTMAN When:Within 1-2 days Where:[address] [facility] [place] [address]- Business (1) Additional Information: please follow up with GI for colonoscopy Follow Up with JAMES WILCOX MD When:Within 1-2 days Where:[address] [place] [address]- Additional Information: Please call the office to schedule a hospital follow-up appointment Follow Up with IRMA SHAH DO, [facility] Where:[address] [place] [address] [place] [address]- [phone] Additional Information: As needed, call [phone] with questions regarding your abscess drainage catheter. Plan for a follow up in 1-[address] scan and drainage catheter evaluation at [facility]. Follow Up with ARLENE RODRIGEZ MD, Surgery When:03/27/2024 10:00 AM EDT Where:[address] [facility] [address] [place] [address]- [phone] Additional Information: follow up within 2-4 weeks [...] CONCHITA PHILLIPS DO on 03/16/2024 01:02 PM [id number] Infectious disease Progress note Subjective Patient was [...] IMPRESSION: Successful CT guided placement of 10 Palestinian pelvic abscess drainage catheterplacement. 115 mL frankly [...] the last several days. Proceeded to the [facility] for further evaluation. In , CTAP performed [...] CH BA, MD on 03/16/2024 03:17 PM [id number] Surgery Hospital Progress note Date of Service [...] questions or concerns. Case discussed with Dr. Rodrgiez, see addendum to follow. Digitally Signed by MADIHA ZAIDI on 03/16/2024 10:22 AM [id number] Surgery Hospital Progress note Date of Service [...] by MADIHA ZAIDI on 03/16/2024 10:22 AM [id number] Interventional radiology Progress note Interventional Radiology Progress Note IR Procedure 10 Fr pelvic abscess drainage catheter insertion - 03/13/2024 Subjective 43-year-old female with history of diverticular abscess post abscess drainage catheter insertion on03/13/2024. Patient presented to [facility] with complaints of abdominal pain, fever and diarrhea. CT of the abdomen and pelvis performed at that time demonstrated diverticulitis with associated pelvic abscess. Patient was transferred to [facility] on 03/09/2024 for further management. Because the [...] ithas been draining well. Physical Exam Vitals: Ufrxynqezla87.7 (07:35) Systolic Blood Izympieq961 (07:35) Diastolic Blood Ykxxrcnk71 (07:35) Pulse83 (07:35) LmT586 (07:35) Respiratory RateNo result General: Alert, nontoxic, [...] IMPRESSION: Successful CT guided placement of 10 Palestinian pelvic abscess drainage catheterplacement. 115 mL frankly [...] home. Polina Donovan PA-C Interventional Radiology Pager: [phone] IR dept: x [phone] Available on elmenus Digitally Signed by POLINA DONOVAN PA-C on 03/16/2024 09:15 AM [id number] Note NEGATIVE FOR MALIGNANCY. Marked acute inflammation present. [facility] 09-16-2024 Note NEGATIVE FOR MALIGNANCY. Marked acute inflammation present. [facility] 09-16-2024 Note NEGATIVE FOR MALIGNANCY. Marked acute inflammation present. [facility] 09-16-2024 Note NEGATIVE FOR MALIGNANCY. Marked acute inflammation present. [facility] 09-16-2024 Note NEGATIVE FOR MALIGNANCY. Marked acute inflammation present. [facility] 09-16-2024 Note NEGATIVE FOR MALIGNANCY. Marked acute inflammation present. [facility] 09-16-2024 Interventional radiology Progress note Interventional Radiology Progress Note IR Procedure 10 Fr pelvic abscess drainage catheter insertion - 03/13/2024 Subjective 43-year-old female with history of diverticular abscess post abscess drainage catheter insertion on03/13/2024. Patient presented to [facility] with complaints of abdominal pain, fever and diarrhea. CT of the abdomen and pelvis performed at that time demonstrated diverticulitis with associated pelvic abscess. Patient was transferred to [facility] on 03/09/2024 for further management. Because the [...] ithas been draining well. Physical Exam Vitals: Gyzawulxups22.7 (07:35) Systolic Blood Uhbgndyi258 (07:35) Diastolic Blood Fnvddyvc15 (07:35) Pulse83 (07:35) SiW795 (07:35) Respiratory RateNo result General: Alert, nontoxic, [...] IMPRESSION: Successful CT guided placement of 10 Palestinian pelvic abscess drainage catheterplacement. 115 mL frankly [...] home. Polina Donovan PA-C Interventional Radiology Pager: [phone] IR dept: [phone] Available on elmenus Digitally Signed by POLINA DONOVAN PA-C on 03/16/2024 09:15 AM [id number] Note Date of Service 03/15/24 Chief Complaint Acute diverticulitis with concern for microperforation and large abscess formation Subjective 43-year-old female with past medical history of DVT and obesity. Patient presented to [facility] for complaints of abdominal pain with loose bowel movements over the past several days. CT of abdomenpelvis performed at [facility] showed evidence of a diverticulitis with possible small perforationand abscess formation. Patient also noted to have elevated troponins peaking at 230. EKG read sinusrhythm without ischemia. Patient transferred to [facility] on 03/09/2024 for further evaluation. Lab work at [facility] showed leukocytosis of 13, hemoglobin was 7, potassium 3.4. Lactic acid was 1.5. Troponin was 80. COVID/flu/RSV negative. C. difficile PCR was negative. Urine culture showed no growth. Patient was started on broad-spectrum antibiotic of Zosyn. General surgery recommended conservative treatment for diverticulitis, her diet was advanced. Cardiology was consulted for elevated troponin, felt this was a type II AK in setting of infection, recommended echocardiogram and [...] IMPRESSION: Successful CT guided placement of 10 Palestinian pelvic abscess drainage catheterplacement. 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 Cardiology recommending outpatient [...] by CLEMENT SHABAZZ on 03/15/2024 12:48 PM [id number] Surgery Hospital Progress note Date of Service 03/15/2024 Chief Complaint Abdominal pain diverticulitis Subjective This is a split shared visit to myself and Dr. Méndze. Patient seen resting supine in bed this [...] Blood, Once, Stop date 03/15/24 7:45:00 EDT, [id number] .Morphology, Next AM Draw (one day only), Blood, Once, Stop date 03/15/24 8:06:00 EDT, [id number] .Neutro Absolute, Next AM Draw (one day only), Blood, Once, Stop date 03/15/24 7:45:00 EDT, [id number] Manual Differential, Next AM Draw (one day only), Blood, Once, Stop date 03/15/24 8:06:00 EDT, [id number] 43-year-old female who was admitted to hospital [...] by MANOLO STERLING on 03/15/2024 10:01 AM [id number] Surgery Hospital Progress note Date of Service [...] Blood, Once, Stop date 03/15/24 7:45:00 EDT, [id number] .Morphology, Next AM Draw (one day only), Blood, Once, Stop date 03/15/24 8:06:00 EDT, [id number] .Neutro Absolute, Next AM Draw (one day only), Blood, Once, Stop date 03/15/24 7:45:00 EDT, [id number] Manual Differential, Next AM Draw (one day only), Blood, Once, Stop date 03/15/24 8:06:00 EDT, [id number] 43-year-old female who was admitted to hospital [...] by MANOLO STERLING on 03/15/2024 10:01 AM [id number] Note Date of Service 03/14/24 Chief Complaint Acute diverticulitis with concern for microperforation and large abscess formation Subjective 43-year-old female with past medical history of DVT and obesity. Patient presented to [facility] for complaints of abdominal pain with loose bowel movements over the past several days. CT of abdomenpelvis performed at [facility] showed evidence of a diverticulitis with possible small perforationand abscess formation. Patient also noted to have elevated troponins peaking at 230. EKG read sinusrhythm without ischemia. Patient transferred to [facility] on 03/09/2024 for further evaluation. Lab work at [facility] showed leukocytosis of 13, hemoglobin was 7, potassium 3.4. Lactic acid was 1.5. Troponin was 80. COVID/flu/RSV negative. C. difficile PCR was negative. Urine culture showed no growth. Patient was started on broad-spectrum antibiotic of Zosyn. General surgery recommended conservative treatment for diverticulitis, her diet was advanced. Cardiology was consulted for elevated troponin, felt this was a type II AK in setting of infection, recommended echocardiogram and [...] IMPRESSION: Successful CT guided placement of 10 Palestinian pelvic abscess drainage catheterplacement. 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 Cardiology recommending outpatient [...] by CLEMENT SHABAZZ on 03/14/2024 02:18 PM [id number] Note Date of Service 03/14/24 Chief Complaint Acute diverticulitis with concern for microperforation and large abscess formation Subjective 43-year-old female with past medical history of DVT and obesity. Patient presented to [facility] for complaints of abdominal pain with loose bowel movements over the past several days. CT of abdomenpelvis performed at [facility] showed evidence of a diverticulitis with possible small perforationand abscess formation. Patient also noted to have elevated troponins peaking at 230. EKG read sinusrhythm without ischemia. Patient transferred to [facility] on 03/09/2024 for further evaluation. Lab work at [facility] showed leukocytosis of 13, hemoglobin was 7, potassium 3.4. Lactic acid was 1.5. Troponin was 80. COVID/flu/RSV negative. C. difficile PCR was negative. Urine culture showed no growth. Patient was started on broad-spectrum antibiotic of Zosyn. General surgery recommended conservative treatment for diverticulitis, her diet was advanced. Cardiology was consulted for elevated troponin, felt this was a type II AK in setting of infection, recommended echocardiogram and [...] IMPRESSION: Successful CT guided placement of 10 Palestinian pelvic abscess drainage catheterplacement. 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 Cardiology recommending outpatient [...] by CLEMENT SHABAZZ on 03/14/2024 02:18 PM [id number] Surgery Hospital Progress note Date of Service [...] by MANOLO STERLING on 03/14/2024 01:32 PM [id number] Surgery Hospital Progress note Date of Service [...] by MANOLO STERLING on 03/14/2024 01:32 PM [id number] Infectious disease Progress note Subjective Patient seen [...] CH BA, MD on 03/14/2024 02:09 PM [id number] Note Date of Service 03/13/24 Chief Complaint Acute diverticulitis with concern for microperforation and large abscess formation Concern for intrahepatic abscess 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 Patient presented to [facility] for complaints of abdominal pain with loose bowel movements over the past several days. CT of abdomenpelvis performed at [facility] showed evidence of a diverticulitis with possible small perforationand abscess formation. Patient also noted to have elevated troponins peaking at 230. EKG read sinusrhythm without ischemia. Patient transferred to [facility] on 03/09/2024 for further evaluation. Lab work at [facility] showed leukocytosis of 13, hemoglobin was 7, potassium 3.4. Lactic acid was 1.5. Troponin was 80. COVID/flu/RSV negative. C. difficile PCR was negative. Urine culture showed no growth. Patient was started on broad-spectrum antibiotic of Zosyn. General surgery recommended conservative treatment for diverticulitis, her diet was advanced. 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 Cardiology recommending outpatient [...] by CLEMENT SHABAZZ on 03/13/2024 01:46 PM [id number] Infectious disease Progress note Date of Service [...] Margot Gonzalez RN on 03/13/2024 09:39 AM [id number] Note ORIGINAL PROCEDURE: CT GUIDED 10 Palestinian pelvic abscess drainage catheter placement MODERATE CONSCIOUS SEDATION 03/13/2024 HISTORY: ORDERING SYSTEM PROVIDED HISTORY: Reason for Exam: Large diverticular abscess 115ml aspirated/ 5ml sent to lab. 1% lidocaine-15ml. sedation time: 26 minutes. needles; 02p79tsjthvme, dialtors; 7,9. amplatz 0.533h61kn. 09Yr12qq. lyla bulb, connecting tube. 2.0silk. SEDATION: Moderate intravenous sedation utilized for procedure which was administered by monitored by interventional radiology nurse. See intervention radiology nursing notes for further discussion. TECHNIQUE: Local sterile field for procedure.. Informed consent was obtained after a detailed explanation of the procedure including risks, benefits, and alternatives. [place] protocol was followed. A suitable skin site was prepped and draped in sterile fashion following CT localization. A 18 gauge needlewas advanced into the pelvic fluid collection via posterior right paramedian approach. Guidewires advanced over which track was dilated and a 10 Palestinian external drainage catheter was placed. 115 mL [...] IMPRESSION: Successful CT guided placement of 10 Palestinian pelvic abscess drainage catheter placement. 115 mL frankly purulent fluid removed. Specimen sent for laboratory evaluation. Complete evacuation of abscess cavity achieved. Agustin-Mott drainage bulb applied. No complication suggested. Interpreted by: Irma Shah DO Preliminary Report By: Irma Shah DO Electronically signed By Irma Shah DO Dictated Date: 03/13/2024 4:23:02 PM Prelim Date: 03/13/2024 4:26:52 PM Sign Date: 03/13/2024 4:26:52 PM Ordering Provider: [facility]09-13-2024 Procedure note Date of Service INTERVENTIONAL RADIOLOGY POST PROCEDURE NOTE Pre-Procedure Diagnosis: [pelvic fluid collection ] Post Procedure Diagnosis: Same. Modeling Director: Dr. Irma Shah DO Procedure: [ ct [...] IRMA SHAH DO on 03/13/2024 10:34 AM [id number] Note IR Procedure Record Summary Primary Physician: IRMA SHAH DO Finalized Date/Time: 03/13/24 10:31:45 Pt. Name: CLARISSE PEGUERO /Sex: 1980 Female Med Rec #: [id number] Physician: BONIFACIO BAILEY DO Financial #: [id number] Pt. Type: I Room/Bed: [facility] Admit/Disch: 03/09/24 03:36:00 - Institution: Allergies identified in patient's electronic medical record at time of printing on 03/13/24 Entry 1 Substance NKA Reaction Type Allergy Last Modified By: Gisselle Hector RN 03/09/24 04:11:39 Case Attendance- IR Entry 1 Entry 2 Entry 3 Case Attendee IRMA SHAH Lead Care ManagerMELA Morales Role Performed Primary Surgeon Scrub Technologist [...] Radiology - Action Plan Outcomes Met? Yes Neon Installer Santa Garcia RN Completing Procedure Plan Last Modified By: Santa Garcia RN 03/13/24 09:43:23 Case Comments Finalized By: Santa Garcia RN Document Signatures Signed By: Santa Garcia RN 03/13/24 10:27 Santa Garcia RN 03/13/24 10:31 [id number] Infectious disease Progress note Date of Service [...] Margot Gonzalez RN on 03/13/2024 09:39 AM [id number] Urology Consult note Date of Service 03/13/2024 [...] HUNTER TAPIA MD on 03/13/2024 10:01 AM [id number] Note* Exam Date Time Procedure Performing Provider Status 03/12/24 3:40 PM Echocardiogram, Adult - CV Auth (Verified) [facility] 09-12-2024 Note ORIGINAL EXAMINATION: CT OF THE [...] Sign Date: 03/12/2024 1:45:34 PM Ordering Provider: [place]09-11-2024 Infectious disease Consult note Date of Service [...] the last several days. Proceeded to the [facility] for further evaluation. In , CTAP performed [...] the last several days. Proceeded to the [facility] for further evaluation. In , CTAP performed [...] CH BA, MD on 03/11/2024 05:39 PM [id number] Note* Exam Date Time Procedure Performing Provider Status 03/11/24 8:04 AM VL Venous US/Doppler Both Legs(for DVT) Auth (Verified) [facility] 09-10-2024 Cardiology Progress note Date of Service [...] NICHOLAS LEMA DO on 03/10/2024 05:33 PM [id number] Cardiology Progress note Date of Service 03/10/34 [...] NICHOLAS LEMA DO on 03/10/2024 05:33 PM [id number] Cardiology Consult note Date of Service 03/09/24 [...] NICHOLAS LEMA DO on 03/09/2024 04:18 PM [id number] Cardiology Consult note Date of Service 03/09/24 [...] NICHOLAS LEMA DO on 03/09/2024 04:18 PM [id number] Evaluation + Plan noteExtracted from: Title:History and [...] Provider:ARLENE RODRIGEZ MD Location:Gen Surg CAN Appointment Type:[facility] Follow Up Appointment Date:04/16/2024 10:20:00 AM Scheduled Provider:ROSA LOVE Location:UROLOGY Appointment Type:URO OV Future Scheduled Tests Radiology* IR Drainage Cath Injection for Eval 03/23/24 * CT Abd/Pelvis w/ IV Contrast Only 03/23/24 * US Renal 04/13/24 [facility] 09-09-2024 Surgery Consult note Date of Service 03/09/2024 Reason for Consultation Diverticulitis Referring Physician Marco A Bailey History of Present Illness This is a split shared visit between myself and Dr. Rodrigez This patient is a 43-year-old female with a past medical history significant for GERD who [facility] from [facility] after she presented there with complaints of nausea, vomiting, and fevers that began on , 03/05/2024. CT scan imaging was obtained showing concern for diverticulitis with microperforation and possible abscess. Her troponin levels were notedto be elevated prompting transfer to [facility]. She was admitted to the stepdown unit [...] female admitted to the stepdown unit of [facility] secondary toconcern for diverticulitis, elevated troponin, and concern for UTI. Her initial workup was completed at [facility]; CT scan imaging of the abdomen and [...] by COLIN EDWARDS on 03/09/2024 09:30 AM [id number] Surgery Consult note Date of Service 03/09/2024 Reason for Consultation Diverticulitis Referring Physician Marco A Bailey History of Present Illness This is a split shared visit between myself and Dr. Rodrigez This patient is a 43-year-old female with a past medical history significant for GERD who [facility] a transfer from [facility] after she presented there with complaints of nausea, vomiting, and fevers that began on , 03/05/2024. CT scan imaging was obtained showing concern for diverticulitis with microperforation and possible abscess. Her troponin levels were notedto be elevated prompting transfer to [facility]. She was admitted to the stepdown unit [...] female admitted to the stepdown unit of [facility] for diverticulitis, elevated troponin, and concern for UTI. Her initial workup was completed at [facility]; CT scan imaging of the abdomen and [...] by COLIN EDWARDS on 03/09/2024 09:30 AM [id number] History and physical note Date of Service [...] BONIFACIO BAILEY DO on 03/09/2024 04:51 AM [facility] Future Appointments Appointment Date:03/27/2024 10:00:00 AM Scheduled Provider:ARLENE RODRIGEZ MD Location:Gen Surg [facility] Appointment Type:[facility] Follow Up Appointment Date:04/02/2024 11:00:00 AM Scheduled Provider: Location:IR Appointment Type:IR Drainage Cath Injection for Eval Appointment Date:04/13/2024 01:20:00 PM Scheduled Provider:ROSA LOVE Location:UROLOGY Appointment Type:URO OV Future Scheduled Tests Radiology* IR Drainage Cath Injection for Eval 04/02/24 * US Renal 04/13/24 [facility] Evaluation + Plan note Future Appointments Appointment [...] w/ contrast 03/27/24 * US Renal 04/13/24 [facility] Evaluation + Plan note Future Appointments Appointment Date:04/13/2024 01:20:00 PM Scheduled Provider:ROSA LOVE Location:UROLOGY Appointment Type:URO OV Appointment Date:04/15/2024 02:00:00 PM Scheduled Provider: Location:IR Appointment Type:IR Drainage Cath Injection for Eval Appointment Date:05/05/2024 08:15:00 AM Scheduled Provider:ARLENE RODRIGEZ MD Location:Gen Surg CAN Appointment Type:GS OV Check after Test Future Scheduled Tests Radiology* CT Abdomen and Pelvis w/ contrast 03/27/24 * US Renal 04/13/24 [facility] evaluation + Plan note Future Appointments Appointment Date:04/15/2024 02:00:00 PM Scheduled Provider: Location:IR Appointment Type:IR Drainage Cath Injection for Eval Appointment Date:05/05/2024 08:15:00 AM Scheduled Provider:ARLENE RODRIGEZ MD Location:Gen Surg CAN Appointment Type:GS OV Check after Test Future Scheduled Tests Radiology* IR Drainage Cath Injection for Eval 04/15/24 * CT Abdomen and Pelvis w/ contrast 03/27/24 * US Renal 04/13/24 [facility] evaluation + Plan note Future Appointments Appointment [...] w/ contrast 03/27/24 * US Renal 04/13/24 [facility] Evaluation + Plan note Future Appointments Appointment [...] w/ contrast 03/27/24 * US Renal 04/13/24 [facility] Evaluation + Plan note Future Appointments Appointment [...] 08/18/24 * Complete Metabolic Panel 09/01/24 * [facility] Send Out (Non-Blood Specimens) 07/30/24 Radiology* CT Thorax w/ Contrast 06/17/24 * CT Abdomen and Pelvis w/ contrast 06/17/24 * CT Abdomen and Pelvis w/ contrast 03/27/24 * US Renal 04/13/24 [facility] Evaluation + Plan note Future Appointments Appointment [...] 08/18/24 * Complete Metabolic Panel 09/01/24 * [facility] Lab Send Out (Non-Blood Specimens) 07/30/24 Radiology* CT Thorax w/ Contrast 06/17/24 * CT Abdomen and Pelvis w/ contrast 06/17/24 * CT Abdomen and Pelvis w/ contrast 03/27/24 * US Renal 04/13/24 [facility] Evaluation + Plan note Future Appointments Appointment [...] 08/18/24 * Complete Metabolic Panel 09/01/24 * [facility] Send Out (Non-Blood Specimens) 07/30/24 Radiology* CT Thorax w/ Contrast 06/17/24 * CT Abdomen and Pelvis w/ contrast 06/17/24 * CT Abdomen and Pelvis w/ contrast 03/27/24 * US Renal 04/13/24 [facility] Evaluation + Plan note Future Appointments Appointment Date:08/25/2024 07:45:00 AM Scheduled Provider: Location:INF Appointment Type:INF/OSP Labwork Appointment Date:08/25/2024 08:30:00 AM Scheduled Provider:ROSEANN LUNDBERG MD Location:HEM [...] 09/01/24 * Complete Metabolic Panel 09/01/24 * [facility] Send Out (Non-Blood Specimens) 07/30/24 Radiology* CT Thorax w/ Contrast 06/17/24 * XR Hip 3-4 Views Bilateral 08/13/24 * CT Abdomen and Pelvis w/ contrast 06/17/24 * CT Abdomen and Pelvis w/ contrast 03/27/24 * US Renal 04/13/24 [facility] Evaluation + Plan note Future Appointments Appointment [...] w/ contrast 03/27/24 * US Renal 04/13/24 [facility] Evaluation + Plan note Future Appointments Appointment [...] Labwork Appointment Date:10/06/2024 10:00:00 AM Scheduled Provider:SHEA CLAYCRIMINAL INVESTIGATOR Location:HEM ONC Appointment Type:HEM ONC OV Follow Up w/UNDERCUTTER OPERATOR Active Treat Appointment Date:10/06/2024 10:30:00 AM [...] 10/20/24 * Complete Metabolic Panel 11/03/24 * [facility] Send Out (Non-Blood Specimens) 07/30/24 Radiology* IR Drainage Cath Injection for Eval 09/30/24 * CT Thorax w/ Contrast 06/17/24 * XR Hip 3-4 Views Bilateral 08/13/24 * CT Abdomen and Pelvis w/ contrast 06/17/24 * CT Abdomen and Pelvis w/ contrast 03/27/24 * US Renal 04/13/24 [facility] Evaluation + Plan note Future Appointments Appointment Date:09/30/2024 01:00:00 PM Scheduled Provider: Location:IR Appointment Type:IR Drainage Cath Injection for Eval Appointment Date:10/06/2024 09:15:00 AM Scheduled Provider: Location:INF Appointment Type:INF/OSP Labwork Appointment Date:10/06/2024 10:00:00 AM Scheduled Provider:SHEA CLAY Location:HEM ONC Appointment Type:HEM ONC OV Follow Up w/UNDERCUTTER OPERATOR Active Treat Appointment Date:10/06/2024 10:30:00 AM [...] w/ contrast 03/27/24 * US Renal 04/13/24 [facility] Evaluation + Plan note Future Appointments Appointment Date:10/06/2024 09:15:00 AM Scheduled Provider: Location:INF Appointment Type:INF/OSP Labwork Appointment Date:10/06/2024 10:00:00 AM Scheduled Provider:SHEA CLAYCRIMINAL INVESTIGATOR Location:HEM ONC Appointment Type:HEM ONC OV Follow [...] min Appointment Date:10/13/2024 08:15:00 AM Scheduled Provider:ARLENE RODRGIEZ MD Location:Gen Surg CAN Appointment Type:GS OV [...] w/ contrast 06/17/24 * US Renal 04/13/24 [facility] Evaluation + Plan note Future Appointments Appointment [...] 10/20/24 * Complete Metabolic Panel 11/03/24 * [facility] Send Out (Non-Blood Specimens) 07/30/24 Radiology* CT Thorax w/ Contrast 06/17/24 * XR Hip 3-4 Views Bilateral 08/13/24 * CT Abdomen and Pelvis w/ contrast 06/17/24 * US Renal 04/13/24 [facility] Evaluation + Plan note Future Appointments Appointment [...] w/ contrast 06/17/24 * US Renal 04/13/24 [facility] Evaluation + Plan note Future Appointments Appointment [...] w/ contrast 06/17/24 * US Renal 04/13/24 [facility] Evaluation + Plan note Future Appointments Appointment [...] w/ contrast 10/28/24 * US Renal 04/13/24 [facility] Evaluation + Plan note Future Appointments Appointment [...] 11/03/24 * Complete Metabolic Panel 11/03/24 * [facility] Send Out (Non-Blood Specimens) 07/30/24 Radiology* CT Thorax w/ Contrast 06/17/24 * CT Thorax w/ Contrast 10/28/24 * XR Hip 3-4 Views Bilateral 08/13/24 * CT Abdomen and Pelvis w/ contrast 06/17/24 * CT Abdomen and Pelvis w/ contrast 10/28/24 * US Renal 04/13/24 [facility] Evaluation + Plan note Future Appointments Appointment Date:11/05/2024 01:00:00 PM Scheduled Provider: Location:INF Appointment Type:INF/OSP Labwork Appointment Date:11/05/2024 01:15:00 PM Scheduled Provider: Location:INF Appointment Type:INF Chemo: Infusion Pump Discontinue 15 Appointment Date:11/10/2024 08:15:00 AM Scheduled Provider:RALENE RODRIGEZ MD Location:Gen Surg CAN Appointment Type:GS [...] ONC Appointment Type:HEM ONC OV Follow Up w/UNDERCUTTER OPERATOR Active Treat Appointment Date:12/01/2024 09:30:00 AM [...] 11/17/24 * Complete Metabolic Panel 12/01/24 * [facility] Send Out (Non-Blood Specimens) 07/30/24 Radiology* CT Thorax w/ Contrast 06/17/24 * XR Hip 3-4 Views Bilateral 08/13/24 * CT Abdomen and Pelvis w/ contrast 06/17/24 * US Renal 04/13/24 [facility] Evaluation + Plan note Future Appointments Appointment [...] ONC Appointment Type:HEM ONC OV Follow Up w/UNDERCUTTER OPERATOR Active Treat Appointment Date:12/01/2024 09:30:00 AM [...] 11/17/24 * Complete Metabolic Panel 12/01/24 * [facility] Send Out (Non-Blood Specimens) 07/30/24 Radiology* CT Thorax w/ Contrast 06/17/24 * XR Hip 3-4 Views Bilateral 08/13/24 * CT Abdomen and Pelvis w/ contrast 06/17/24 * US Renal 04/13/24 [facility] Evaluation + Plan note Future Appointments Appointment [...] ONC Appointment Type:HEM ONC OV Follow Up w/UNDERCUTTER OPERATOR Active Treat Appointment Date:12/01/2024 09:30:00 AM [...] 11/17/24 * Complete Metabolic Panel 12/01/24 * [facility] Send Out (Non-Blood Specimens) 07/30/24 Radiology* CT Thorax w/ Contrast 06/17/24 * XR Hip 3-4 Views Bilateral 08/13/24 * CT Abdomen and Pelvis w/ contrast 06/17/24 * US Renal 04/13/24 [facility] Evaluation + Plan note Future Appointments Appointment Date:11/19/2024 01:30:00 PM Scheduled Provider: Location:INF Appointment Type:INF/OSP Labwork Appointment Date:11/19/2024 01:45:00 PM Scheduled Provider: Location:INF Appointment Type:INF Chemo: Infusion Pump Discontinue 15 Appointment Date:12/01/2024 08:15:00 AM Scheduled Provider: Location:INF Appointment Type:INF/OSP Labwork Appointment Date:12/01/2024 09:00:00 AM Scheduled Provider:FRANCES MCKEON APRN-YUSRA Location:HEM ONC Appointment Type:HEM ONC OV Follow Up w/UNDERCUTTER OPERATOR Active Treat Appointment Date:12/01/2024 09:30:00 AM [...] 12/01/24 * Complete Metabolic Panel 12/01/24 * [facility] Send Out (Non-Blood Specimens) 07/30/24 Radiology* CT Thorax w/ Contrast 06/17/24 * XR Hip 3-4 Views Bilateral 08/13/24 * CT Abdomen and Pelvis w/ contrast 06/17/24 * US Renal 04/13/24 [facility] Evaluation + Plan note Future Appointments Appointment [...] 12/15/24 * Complete Metabolic Panel 12/29/24 * [facility] Send Out (Non-Blood Specimens) 07/30/24 Radiology* CT Thorax w/ Contrast 06/17/24 * XR Hip 3-4 Views Bilateral 08/13/24 * CT Abdomen and Pelvis w/ contrast 06/17/24 * US Renal 04/13/24 [facility] Evaluation + Plan note Future Appointments Appointment [...] 12/15/24 * Complete Metabolic Panel 12/29/24 * [facility] Send Out (Non-Blood Specimens) 07/30/24 Radiology* CT Thorax w/ Contrast 06/17/24 * XR Hip 3-4 Views Bilateral 08/13/24 * CT Abdomen and Pelvis w/ contrast 06/17/24 * US Renal 04/13/24 [facility] Evaluation + Plan note Future Appointments Appointment [...] 12/29/24 * Complete Metabolic Panel 12/29/24 * [facility] Send Out (Non-Blood Specimens) 07/30/24 Radiology* CT Thorax w/ Contrast 06/17/24 * XR Hip 3-4 Views Bilateral 08/13/24 * CT Abdomen and Pelvis w/ contrast 06/17/24 * US Renal 04/13/24 [facility] Evaluation + Plan note Future Appointments Appointment [...] w/ contrast 06/17/24 * US Renal 04/13/24 [facility] Evaluation + Plan note Future Appointments Appointment [...] 01/12/25 * Complete Metabolic Panel 01/12/25 * [facility] Send Out (Non-Blood Specimens) 07/30/24 Radiology* CT Thorax w/ Contrast 06/17/24 * CT Thorax w/ Contrast 01/07/25 * XR Hip 3-4 Views Bilateral 08/13/24 * CT Abdomen and Pelvis w/ contrast 06/17/24 * CT Abdomen and Pelvis w/ contrast 01/07/25 * IR Port Check W/Guide 01/08/25 * US Renal 04/13/24 [facility] Evaluation + Plan note Future Appointments Appointment [...] Check W/Guide 01/08/25 * US Renal 04/13/24 [facility] Evaluation + Plan note Future Appointments Appointment [...] Check W/Guide 01/08/25 * US Renal 04/13/24 [facility] Evaluation + Plan note Future Appointments Appointment [...] Check W/Guide 01/08/25 * US Renal 04/13/24 [facility] Evaluation + Plan note Future Appointments Appointment [...] 01/12/25 * Complete Metabolic Panel 01/12/25 * [facility] Send Out (Non-Blood Specimens) 07/30/24 Radiology* CT Thorax w/ Contrast 06/17/24 * XR Hip 3-4 Views Bilateral 08/13/24 * CT Abdomen and Pelvis w/ contrast 06/17/24 * IR Port Check W/Guide 01/08/25 * US Renal 04/13/24 [facility] Evaluation + Plan note Future Appointments Appointment [...] ONC Appointment Type:HEM ONC OV Follow Up w/UNDERCUTTER OPERATOR Active Treat Appointment Date:02/09/2025 10:00:00 AM [...] ONC Appointment Type:HEM ONC OV Follow Up w/UNDERCUTTER OPERATOR Active Treat Appointment Date:03/09/2025 10:00:00 AM [...] 02/23/25 * Complete Metabolic Panel 03/09/25 * [facility] Lab Send Out (Non-Blood Specimens) 07/30/24 Radiology* CT Thorax w/ Contrast 06/17/24 * CT Thorax w/ Contrast 04/01/25 * CT Abd/Pelvis w/ IV Contrast Only 04/01/25 * XR Hip 3-4 Views Bilateral 08/13/24 * CT Abdomen and Pelvis w/ contrast 06/17/24 * US Renal 04/13/24 [facility] Evaluation + Plan note Future Appointments Appointment [...] ONC Appointment Type:HEM ONC OV Follow Up w/UNDERCUTTER OPERATOR Active Treat Appointment Date:02/09/2025 10:00:00 AM [...] ONC Appointment Type:HEM ONC OV Follow Up w/UNDERCUTTER OPERATOR Active Treat Appointment Date:03/09/2025 10:00:00 AM [...] 02/23/25 * Complete Metabolic Panel 03/09/25 * [facility] Send Out (Non-Blood Specimens) 07/30/24 Radiology* CT Thorax w/ Contrast 06/17/24 * CT Thorax w/ Contrast 04/01/25 * CT Abd/Pelvis w/ IV Contrast Only 04/01/25 * XR Hip 3-4 Views Bilateral 08/13/24 * CT Abdomen and Pelvis w/ contrast 06/17/24 * US Renal 04/13/24 [facility] Evaluation + Plan note Future Appointments Appointment [...] ONC Appointment Type:HEM ONC OV Follow Up w/UNDERCUTTER OPERATOR Active Treat Appointment Date:02/09/2025 10:00:00 AM [...] ONC Appointment Type:HEM ONC OV Follow Up w/UNDERCUTTER OPERATOR Active Treat Appointment Date:03/09/2025 10:00:00 AM [...] w/ contrast 06/17/24 * US Renal 04/13/24 [facility] Evaluation + Plan note Future Appointments Appointment Date:02/02/2025 10:00:00 AM Scheduled Provider:ARLENE RODRIGEZ MD Location:Gen Surg CAN Appointment Type:GS OV Check Up Appointment Date:02/09/2025 08:45:00 AM Scheduled Provider: Location:INF Appointment Type:INF/OSP Labwork Appointment Date:02/09/2025 09:30:00 AM Scheduled Provider:FRANCES MCKEON APRN-WASHCLOTH FOLDER Location:HEM ONC Appointment Type:HEM ONC OV Follow Up w/UNDERCUTTER OPERATOR Active Treat Appointment Date:02/09/2025 10:00:00 AM [...] ONC Appointment Type:HEM ONC OV Follow Up w/UNDERCUTTER OPERATOR Active Treat Appointment Date:03/09/2025 10:00:00 AM [...] 02/23/25 * Complete Metabolic Panel 03/09/25 * [facility] Send Out (Non-Blood Specimens) 07/30/24 Radiology* CT Thorax w/ Contrast 06/17/24 * CT Thorax w/ Contrast 04/01/25 * CT Abd/Pelvis w/ IV Contrast Only 04/01/25 * XR Hip 3-4 Views Bilateral 08/13/24 * CT Abdomen and Pelvis w/ contrast 06/17/24 * US Renal 04/13/24 [facility] Evaluation + Plan note Future Appointments Appointment [...] 02/23/25 * Complete Metabolic Panel 03/09/25 * [facility] Send Out (Non-Blood Specimens) 07/30/24 Radiology* CT Thorax w/ Contrast 06/17/24 * CT Thorax w/ Contrast 04/01/25 * CT Abd/Pelvis w/ IV Contrast Only 04/01/25 * XR Hip 3-4 Views Bilateral 08/13/24 * CT Abdomen and Pelvis w/ contrast 06/17/24 * US Renal 04/13/24 [facility] Evaluation + Plan note Future Appointments Appointment [...] 02/23/25 * Complete Metabolic Panel 03/09/25 * [facility] Send Out (Non-Blood Specimens) 07/30/24 Radiology* CT Thorax w/ Contrast 06/17/24 * CT Thorax w/ Contrast 04/01/25 * CT Abd/Pelvis w/ IV Contrast Only 04/01/25 * XR Hip 3-4 Views Bilateral 08/13/24 * CT Abdomen and Pelvis w/ contrast 06/17/24 * US Renal 04/13/24 [facility] Evaluation + Plan note Future Appointments Appointment [...] 02/23/25 * Complete Metabolic Panel 03/09/25 * [facility] Send Out (Non-Blood Specimens) 07/30/24 Radiology* CT Thorax w/ Contrast 06/17/24 * CT Thorax w/ Contrast 04/01/25 * CT Abd/Pelvis w/ IV Contrast Only 04/01/25 * XR Hip 3-4 Views Bilateral 08/13/24 * CT Abdomen and Pelvis w/ contrast 06/17/24 * US Renal 04/13/24 [facility] Evaluation + Plan note Future Appointments Appointment [...] 03/09/25 * Complete Metabolic Panel 03/09/25 * [facility] Send Out (Non-Blood Specimens) 07/30/24 Radiology* CT Thorax w/ Contrast 06/17/24 * CT Thorax w/ Contrast 04/01/25 * CT Abd/Pelvis w/ IV Contrast Only 04/01/25 * XR Hip 3-4 Views Bilateral 08/13/24 * CT Abdomen and Pelvis w/ contrast 06/17/24 * US Renal 04/13/24 [facility] Evaluation + Plan note Future Appointments Appointment [...] 03/09/25 * Complete Metabolic Panel 03/09/25 * [facility] Send Out (Non-Blood Specimens) 07/30/24 Radiology* CT Thorax w/ Contrast 06/17/24 * CT Thorax w/ Contrast 04/01/25 * CT Abd/Pelvis w/ IV Contrast Only 04/01/25 * XR Hip 3-4 Views Bilateral 08/13/24 * CT Abdomen and Pelvis w/ contrast 06/17/24 * US Renal 04/13/24 [facility] Evaluation + Plan note Future Appointments Appointment [...] w/ contrast 06/17/24 * US Renal 04/13/24 [facility] evaluation + Plan note Future Appointments Appointment [...] w/ contrast 06/17/24 * US Renal 04/13/24 [facility] evaluation + Plan note Future Appointments Appointment [...] Antigen 04/06/25 * Carcinoembryonic Antigen 04/06/25 * [facility] Send Out (Non-Blood Specimens) 07/30/24 Radiology* CT Thorax w/ Contrast 06/17/24 * CT Thorax w/ Contrast 04/01/25 * CT Abd/Pelvis w/ IV Contrast Only 04/01/25 * XR Hip 3-4 Views Bilateral 08/13/24 * CT Abdomen and Pelvis w/ contrast 06/17/24 * US Renal 04/13/24 [facility] Evaluation + Plan note Future Appointments Appointment [...] w/ contrast 06/17/24 * US Renal 04/13/24 [facility] Evaluation + Plan note Future Appointments Appointment [...] w/ contrast 06/17/24 * US Renal 04/13/24 [facility] Evaluation + Plan note Future Appointments Appointment [...] w/ contrast 06/17/24 * US Renal 04/13/24 [facility] Evaluation + Plan note Future Appointments Appointment [...] 06/15/25 * Complete Metabolic Panel 06/29/25 * [facility] Send Out (Non-Blood Specimens) 07/30/24 Radiology* CT Thorax w/ Contrast 06/17/24 * CT Thorax w/ Contrast 07/08/25 * CT Abd/Pelvis w/ IV Contrast Only 07/08/25 * XR Hip 3-4 Views Bilateral 08/13/24 * CT Abdomen and Pelvis w/ contrast 06/17/24 * US Renal 04/13/24 [facility] Evaluation + Plan note Future Appointments Appointment [...] Pump Discontinue 15 Diagnostic Tests Pending * Mainspring Strip Gauger Culture 04/22/25 Future Scheduled Tests Laboratory* Carcinoembryonic [...] 06/15/25 * Complete Metabolic Panel 06/29/25 * [facility] Send Out (Non-Blood Specimens) 07/30/24 Radiology* CT Thorax w/ Contrast 06/17/24 * CT Thorax w/ Contrast 07/08/25 * CT Abd/Pelvis w/ IV Contrast Only 07/08/25 * XR Hip 3-4 Views Bilateral 08/13/24 * CT Abdomen and Pelvis w/ contrast 06/17/24 [facility] Evaluation + Plan note Future Appointments Appointment Date:05/06/2025 01:00:00 PM Scheduled Provider: Location:INF Appointment Type:INF/OSP Labwork Appointment Date:05/06/2025 01:15:00 PM Scheduled Provider: Location:INF Appointment Type:INF Chemo: Infusion Pump Discontinue 15 Appointment Date:05/11/2025 09:15:00 AM Scheduled Provider:ARLENE RODRIGEZ MD Location:Gen Surg [facility] Appointment Type:GS OV Post Op Appointment Date:05/18/2025 07:45:00 AM Scheduled Provider: Location:INF Appointment Type:INF/OSP Labwork Appointment Date:05/18/2025 08:30:00 AM Scheduled Provider:FRANCES MCKEON APRN-WASHCLOTH FOLDER Location:HEM ONC Appointment Type:HEM ONC OV Follow [...] 05/18/25 * Complete Metabolic Panel 06/01/25 * [facility] Send Out (Non-Blood Specimens) 07/30/24 Radiology* CT Thorax w/ Contrast 06/17/24 * CT Thorax w/ Contrast 07/08/25 * CT Thorax w/ Contrast 05/26/25 * CT Abd/Pelvis w/ IV Contrast Only 07/08/25 * CT Abd/Pelvis w/ IV Contrast Only 05/26/25 * XR Hip 3-4 Views Bilateral 08/13/24 * CT Abdomen and Pelvis w/ contrast 06/17/24 [facility] Evaluation + Plan note Future Appointments Appointment [...] 05/18/25 * Complete Metabolic Panel 06/01/25 * [facility] Send Out (Non-Blood Specimens) 07/30/24 Radiology* CT Thorax w/ Contrast 06/17/24 * CT Thorax w/ Contrast 07/08/25 * CT Thorax w/ Contrast 05/26/25 * CT Abd/Pelvis w/ IV Contrast Only 07/08/25 * CT Abd/Pelvis w/ IV Contrast Only 05/26/25 * XR Hip 3-4 Views Bilateral 08/13/24 * CT Abdomen and Pelvis w/ contrast 06/17/24 [facility] Evaluation + Plan note Future Appointments Appointment [...] 05/18/25 * Complete Metabolic Panel 06/01/25 * [facility] Send Out (Non-Blood Specimens) 07/30/24 Radiology* CT Thorax w/ Contrast 06/17/24 * CT Thorax w/ Contrast 07/08/25 * CT Thorax w/ Contrast 05/26/25 * CT Abd/Pelvis w/ IV Contrast Only 07/08/25 * CT Abd/Pelvis w/ IV Contrast Only 05/26/25 * XR Hip 3-4 Views Bilateral 08/13/24 * CT Abdomen and Pelvis w/ contrast 06/17/24 [facility] Evaluation note* Diagnosis Colon cancer metastasized to liver (Multi) documented in this encounter [facility] Work Phone: Evaluation note* Diagnosis 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 documented in this encounter [facility] Work Phone: Evaluation note* Diagnosis Malignant neoplasm of sigmoid colon (Multi) Malignant neoplasm of sigmoid colon documented in this encounter [facility] Work Phone: Hospital course Narrative No data available for this section [facility] Hospital Discharge instructions No data available for this section [facility] Progress note No data available for this section [facility] Reason for visit Narrative* Imaging (Routine) - Authorized Specialty Diagnoses / Procedures Referred By Contac t Referred To Contact Radiology Diagnoses Colon cancer metastasized to liver (Multi) Procedures MR liver [place] [address] [address] [facility] [place] [address] Phone: tel: fax: Referral ID Status Reason Start Date Expiration Date Visits Requested Visits Authorized [id number] Authorized Perform Procedure 07/16/2024 07/16/2025 1 1 [facility] Work Phone: Summary Purpose Family History No [...] Roxanna Weathers Position: Quality Review Member Role: Price Changer Name: JAMES WILCOX MD Member Role: Primary Care Physician Address: Address: [address] [place] [address] [address] Name: Liz Bass Position: Quality Review Member Role: Price Changer Care Team Personnel Name: Ricki Silver Nurse Position: Bed Management Member Role: Other Name: Roxanna Weathers Position: Quality Review Member Role: Price Changer Name: JAMES WILCOX MD Member Role: Primary Care Physician Address: Address: [address] [place] [address] [address] Name: Liz Bass Position: Quality Review Member Role: Price Changer Care Team Personnel Name: Ricki Silver Rounding Nurse Position: Bed Management Member Role: Other Name: Roxanna Weathers Position: Quality Review Member Role: Price Changer Name: JAMES WILCOX MD Member Role: Primary Care Physician Address: Address: [address] [place] [address] [address] Name: Liz Bass Position: Quality Review Member Role: Price Changer Care Team Related Persons Name: LORNA PEGUERO Address: [address] Care Team Personnel Name: Ricki Silver Rounding Nurse Position: Bed Management Member Role: Other Name: Roxanna Weathers Position: Quality Review Member Role: Price Changer Name: JAMES WILCOX MD Member Role: Primary Care Physician Address: Address: [address] [place] [address] [address] Name: Liz Bass Position: Quality Review Member Role: Price Changer Care Team Related Persons Name: LORNA PEGUERO Address: [address] Care Team Personnel Name: Ricki Silver Roundleslye Nurse Position: Bed Management Member Role: Other Name: Roxanna Weathers Position: Quality Review Member Role: Price Changer Name: JAMES WILCOX MD Member Role: Primary Care Physician Address: Address: [address] [place] [address] [address] Name: Liz Bass Position: Quality Review Member Role: Price Changer Care Team Related Persons Name: LORNA PEGUERO Address: [address] Care Team Personnel Name: Ricki Silver Rounding Nurse Position: Bed Management Member Role: Other Name: ABDULKADIR ROSALES PA-C Member Role: Primary Care Physician Address: Address: [address] [place] [address] Name: Roxanna Weathers Position: Quality Review Member Role: Price Changer Name: Liz Bass Position: Quality Review Member Role: Price Changer Care Team Related Persons Name: LORNA PEGUERO Address: Home [address] [place] [address] [address] Care Team Personnel Name: Ricki Silver Nurse Position: Bed Management Member Role: Other Name: ABDULKADIR ROSALES PA-C Member Role: Primary Care Physician Address: Address: [address] [place] [address] Name: Roxanna Weathers Position: Quality Review Member Role: Price Changer Name: Liz Bass Position: Quality Review Member Role: Price Changer Care Team Related Persons Name: LORNA PEGUERO Address: Home [address] [place] [address] [place] [address] Care Team Personnel Name: Ricki Silver Nurse Position: Bed Management Member Role: Other Name: ABDULKADIR ROSALES PA-C Member Role: Primary Care Physician Address: Address: [address] [place] [address] Name: Roxanna Weathers Position: Quality Review Member Role: Price Changer Name: Liz Bass Position: Quality Review Member Role: Price Changer Care Team Related Persons Name: LORNA PEGUERO Address: [address] [place] [address] Care Team Personnel Name: Ricki Silver Nurse Position: Bed Management Member Role: Other Name: Roxanna Weathers Position: Quality Review Member Role: Price Changer Name: JAMES WILCOX MD Member Role: Primary Care Physician Address: Address: [address] [place] [address] [address] Care Team Personnel Name: Ricki Silver Nurse Position: Bed Management Member Role: Other Name: ABDULKADIR ROSALES PA-C Member Role: Primary Care Physician Address: [address] [place] [address] [address] Telecom: Name: Roxanna Weathers Position: Quality Review Member Role: Price Changer Name: Liz Bass Position: Quality Review Member Role: Price Changer Care Team Related Persons Name: LORNA PEGUERO Care Team Personnel Name: Ricki Silver Nurse Position: Bed Management Member Role: Other Name: ABDULKADIR ROSALES PA-C Member Role: Primary Care Physician Address: [address] [facility] [address] Telecom: Name: Roxanna Weathers Position: Quality Review Member Role: Price Changer Name: Liz Bass Position: Quality Review Member Role: Price Changer Care Team Related Persons Name: LORNA PEGUERO Care Team Personnel Name: Ricki Silver Rounding Nurse Position: Bed Management Member Role: Other Name: ABDULKADIR ROSALES PA-C Member Role: Primary Care Physician Address: [address] [facility] [address] Telecom: Name: Roxanna Weathers Position: Quality Review Member Role: Price Changer Name: Liz Bass Position: Quality Review Member Role: Price Changer Care Team Related Persons Name: LORNA PEGUERO Care Team Personnel Name: Ricki Silver Rounding Nurse Position: Bed Management Member Role: Other Name: ABDULKADIR ROSALES PA-C Member Role: Primary Care Physician Address: [address] [place] [address] [address] Telecom: Name: Roxanna Weathers Position: Quality Review Member Role: Price Changer Name: Liz Bass Position: Quality Review Member Role: Price Changer Care Team Related Persons Name: LORNA PEGUERO Care Team Personnel Name: Ricki Silver Rounding Nurse Position: Bed Management Member Role: Other Name: ABDULKADIR ROSALES PA-C Member Role: Primary Care Physician Address: [address] [facility] [address] Telecom: Name: Roxanna Weathers Position: Quality Review Member Role: Price Changer Name: Liz Bass Position: Quality Review Member Role: Price Changer Care Team Related Persons Name: LORNA PEGUERO Care Team Personnel Name: Silver, Ricki Rounding Nurse Position: Bed Management Member Role: Other Name: ABDULKADIR ROSALES PA-C Member Role: Primary Care Physician Address: [address] [facility] [address] Telecom: Name: Roxanna Weathers Position: Quality Review Member Role: Price Changer Name: Liz Bass Position: Quality Review Member Role: Price Changer Care Team Related Persons Name: LORNA PEGUERO Care Team Personnel Name: Ricki Silver Roundleslye Nurse Position: Bed Management Member Role: Other Name: ABDULKADIR ROSALES PA-C Member Role: Primary Care Physician Address: [address] [place] [address] [address] Telecom: Name: Roxanna Weathers Position: Quality Review Member Role: Price Changer Name: Liz Bass Position: Quality Review Member Role: Price Changer Care Team Related Persons Name: LORNA PEGUERO Care Team Personnel Name: Ricki Silver Roundleslye Nurse Position: Bed Management Member Role: Other Name: ABDULKADIR ROSALES PA-C Member Role: Primary Care Physician Address: [address] [place] [address] Telecom: Name: Roxanna Weathers Position: Quality Review Member Role: Price Changer Name: Liz Bass Position: Quality Review Member Role: Price Changer Care Team Related Persons Name: LORNA PEGUERO Care Team Personnel Name: Ricki Silver Roundleslye Nurse Position: Bed Management Member Role: Other Name: ABDULKADIR ROSALES PA-C Member Role: Primary Care Physician Address: [address] [place] [address] [address] Telecom: Name: Roxanna Weathers Position: Quality Review Member Role: Price Changer Name: Liz Bass Position: Quality Review Member Role: Price Changer Care Team Related Persons Name: LORNA PEGUERO Care Team Personnel Name: Ricki Silver Rounding Nurse Position: Bed Management Member Role: Other Name: ABDULKADIR ROSALES PA-C Member Role: Primary Care Physician Address: [address] [place] [address] [address] Telecom: Name: Roxanna Weathers Position: Quality Review Member Role: Price Changer Name: Liz Bass Position: Quality Review Member Role: Price Changer Care Team Related Persons Name: LORNA PEGUERO Care Team Personnel Name: Ricki Silver Rounding Nurse Position: Bed Management Member Role: Other Name: ABDULKADIR ROSALES PA-C Member Role: Primary Care Physician Address: [address] [facility] [address] Telecom: Name: Roxanna Weathers Position: Quality Review Member Role: Price Changer Name: Liz Bass Position: Quality Review Member Role: Price Changer Care Team Related Persons Name: LORNA PEGUERO Care Team Personnel Name: Ricki Silver Rounding Nurse Position: Bed Management Member Role: Other Name: ABDULKADIR ROSALES PA-C Member Role: Primary Care Physician Address: [address] [place] [address] [address] Telecom: Name: Roxanna Weathers Position: Quality Review Member Role: Price Changer Name: ARLENE RODRIGEZ MD Position: P4 Physician - General Surgery Member Role: Surgeon Address: [address] [place] [address] Telecom: Name: Liz Bass Position: Quality Review Member Role: Price Changer Care Team Related Persons Name: LORNA PEGUERO Care Team Personnel Name: Ricki Silver Nurse Position: Bed Management Member Role: Other Name: ABDULKADIR ROSALES PA-C Member Role: Primary Care Physician Address: [address] [place] [address] [address] Telecom: Name: Roxanna Weathers Position: Quality Review Member Role: Price Changer Name: ARLENE RODRIGEZ MD Position: P4 Physician - General Surgery Member Role: Surgeon Address: [address] [place] [address] Telecom: Name: Liz Bass Position: Quality Review Member Role: Price Changer Care Team Related Persons Name: LORNA PEGUERO Care Team Personnel Name: Ricki Silver Roundleslye Nurse Position: Bed Management Member Role: Other Name: ABDULKADIR ROSALES PA-C Member Role: Primary Care Physician Address: [address] [facility] [address] [place] [id number] Telecom: Name: Roxanna Weathers Position: Quality Review Member Role: Price Changer Name: ARLENE RODRIGEZ MD Position: P4 Physician - General Surgery Member Role: Surgeon Address: [address] [place] [address] Telecom: Name: Liz Bass Position: Quality Review Member Role: Price Changer Care Team Related Persons Name: LORNA PEGUERO Care Team Personnel Name: Ricki Silver Rounding Nurse Position: Bed Management Member Role: Other Name: ABDULKADIR ROSALES PA-C Member Role: Primary Care Physician Address: [address] [facility] [address] Telecom: Name: Roxanna Weathers Position: Quality Review Member Role: Price Changer Name: ARLENE RODRIGEZ MD Position: P4 Physician - General Surgery Member Role: Surgeon Address: [address] [place] [address] Telecom: Name: Liz Bass Position: Quality Review Member Role: Price Changer Care Team Related Persons Name: LORNA PEGUERO Care Team Personnel Name: Ricki Silver Rounding Nurse Position: Bed Management Member Role: Other Name: ABDULKADIR ROSALES PA-C Member Role: Primary Care Physician Address: [address] [facility] [address] Telecom: Name: Roxanna Weathers Position: Quality Review Member Role: Price Changer Name: ARLENE RODRIGEZ MD Position: P4 Physician - General Surgery Member Role: Surgeon Address: [address] [place] [address] Telecom: Name: Liz Bass Position: Quality Review Member Role: Price Changer Care Team Related Persons Name: LORNA PEGUERO Care Team Personnel Name: Ricki Silver Rounding Nurse Position: Bed Management Member Role: Other Name: ABDULKADIR ROSALES PA-C Member Role: Primary Care Physician Address: [address] [facility] [address] Telecom: Name: Roxanna Weathers Position: Quality Review Member Role: Price Changer Name: ARLENE RODRIGEZ MD Position: P4 Physician - General Surgery Member Role: Surgeon Address: [address] [place] [address] Telecom: Name: Liz Bass Position: Quality Review Member Role: Price Changer Care Team Related Persons Name: LORNA PEGUERO Care Team Personnel Name: Ricki Silver Nurse Position: Bed Management Member Role: Other Name: ABDULKADIR ROSALES PA-C Member Role: Primary Care Physician Address: [address] [place] [address] [address] Telecom: Name: Roxanna Weathers Position: Quality Review Member Role: Price Changer Name: ARLENE RODRIGEZ MD Position: P4 Physician - General Surgery Member Role: Surgeon Address: [address] [place] [address] Telecom: Name: Liz Bass Position: Quality Review Member Role: Price Changer Care Team Related Persons Name: LORNA PEGUERO Care Team Personnel Name: Ricki Silver Nurse Position: Bed Management Member Role: Other Name: ABDULKADIR ROSALES PA-C Member Role: Primary Care Physician Address: [address] [place] [address] [address] Telecom: Name: Roxanna Weathers Position: Quality Review Member Role: Price Changer Name: ARLENE RODRIGEZ MD Position: P4 Physician - General Surgery Member Role: Surgeon Address: [address] [place] [address] Telecom: Name: Liz Bass Position: Quality Review Member Role: Price Changer Care Team Related Persons Name: LORNA PEGUERO Care Team Personnel Name: Ricki Silver Nurse Position: Bed Management Member Role: Other Name: ABDULKADIR ROSALES PA-C Member Role: Primary Care Physician Address: [address] [facility] [address] Telecom: Name: Roxanna Weathers Position: Quality Review Member Role: Price Changer Name: ARLENE RODRIGEZ MD Position: P4 Physician - General Surgery Member Role: Surgeon Address: [address] [place] [address] Telecom: Name: Liz Bass Position: Quality Review Member Role: Price Changer Care Team Related Persons Name: LORNA PEGUERO Care Team Personnel Name: Ricki Silver Nurse Position: Bed Management Member Role: Other Name: ABDULKADIR ROSALES PA-C Member Role: Primary Care Physician Address: [address] [place] [address] [address] Telecom: Name: Roxanna Weathers Position: Quality Review Member Role: Price Changer Name: ARLENE RODRIGEZ MD Position: P4 Physician - General Surgery Member Role: Surgeon Address: [address] [place] [address] Telecom: Name: Liz Bass Position: Quality Review Member Role: Price Changer Care Team Related Persons Name: LORNA PEGUERO Care Team Personnel Name: Ricki Silver Nurse Position: Bed Management Member Role: Other Name: ABDULKADIR ROSALES PA-C Member Role: Primary Care Physician Address: [address] [place] [address] [address] Telecom: Name: Roxanna Weathers Position: Quality Review Member Role: Price Changer Name: ALRENE RODRIGEZ MD Position: P4 Physician - General Surgery Member Role: Surgeon Address: [address] [place] [address] Telecom: Name: Liz Bass Position: Quality Review Member Role: Price Changer Care Team Related Persons Name: LORNA PEGUERO Care Team Personnel Name: Ricki Silver Roundleslye Nurse Position: Bed Management Member Role: Other Name: ABDULKADIR ROSALES PA-C Member Role: Primary Care Physician Address: [address] [facility] [address] [place] [id number] Telecom: Name: Roxanna Weathers Position: Quality Review Member Role: Price Changer Name: ARLENE RODRIGEZ MD Position: P4 Physician - General Surgery Member Role: Surgeon Address: [address] [place] [address] Telecom: Name: Liz Bass Position: Quality Review Member Role: Price Changer Care Team Related Persons Name: LORNA PEGUERO Care Team Personnel Name: Ricki Silver Roundleslye Nurse Position: Bed Management Member Role: Other Name: ABDULKADIR ROSALES PA-C Member Role: Primary Care Physician Address: [address] [place] [address] [address] [place] [id number] Telecom: Name: Roxanna Weathers Position: Quality Review Member Role: Price Changer Name: ARLENE RODRIGEZ MD Position: P4 Physician - General Surgery Member Role: Surgeon Address: [address] [place] [address] [place] Telecom: Name: Liz Bass Position: Quality Review Member Role: Price Changer Care Team Related Persons Name: LORNA PEGUERO Care Team Personnel Name: Ricki Silver Nurse Position: Bed Management Member Role: Other Name: ABDULKADIR ROSALES PA-C Member Role: Primary Care Physician Address: [address] [facility] [address] [place] [address] Telecom: Name: Roxanna Weathers Position: Quality Review Member Role: Price Changer Name: ARLENE RODRIGEZ MD Position: P4 Physician - General Surgery Member Role: Surgeon Address: [address] [place] [address] [place] Telecom: Name: Liz Bass Position: Quality Review Member Role: Price Changer Care Team Related Persons Name: LORNA PEGUERO Care Team Personnel Name: Ricki Silver Roundleslye Nurse Position: Bed Management Member Role: Other Name: ABDULKADIR ROSALES PA-C Member Role: Primary Care Physician Address: [address] [facility] [address] [place], [place] [address] Telecom: Name: Roxanna Weathers Position: Quality Review Member Role: Price Changer Name: ARLENE RODRIGEZ MD Position: P4 Physician - General Surgery Member Role: Surgeon Address: [address] [place], [place] [id number] Telecom: Name: Liz Bass Position: Quality Review Member Role: Price Changer Care Team Related Persons Name: JUDELORNA JOHN Care Team Personnel Name: Ricki Silver Roundleslye Nurse Position: Bed Management Member Role: Other Name: ABDULKADIR ROSALES PA-C Member Role: Primary Care Physician Address: [address] [facility] [place] [address]- [place] Telecom: Name: Roxanna Weathers Position: Quality Review Member Role: Price Changer Name: ARLENE RODRIGEZ MD Position: P4 Physician - General Surgery Member Role: Surgeon Address: [address] [place], [place] [id number] Telecom: Name: Liz Bass Position: Quality Review Member Role: Price Changer Care Team Related Persons Name: LORNA PEGUERO Care Team Personnel Name: Ricki Silver Nurse Position: Bed Management Member Role: Other Name: ABDULKADIR ROSALES PA-C Member Role: Primary Care Physician Address: [address] [facility] [address] [place], [place] [address] Telecom: Name: Roxanna Weathers Position: Quality Review Member Role: Price Changer Name: ARLENE RODRIGEZ MD Position: P4 Physician - General Surgery Member Role: Surgeon Address: [address] [place], [place] [id number]- [place] Telecom: Name: Liz Bass Position: Quality Review Member Role: Price Changer Care Team Related Persons Name: LORNA PEGUERO Care Team Personnel Name: Ricki Silver Nurse Position: Bed Management Member Role: Other Name: ABDULKADIR ROSALES PA-C Member Role: Primary Care Physician Address: [address] [facility] [address] Telecom: Name: Roxanna Weathers Position: Quality Review Member Role: Price Changer Name: ARLENE RODRIGEZ MD Position: P4 Physician - General Surgery Member Role: Surgeon Address: [address] [place] [address] Telecom: Name: Liz Bass Position: Quality Review Member Role: Price Changer Care Team Related Persons Name: LORNA PEGUERO Care Team Personnel Name: Ricki Silver Nurse Position: Bed Management Member Role: Other Name: ABDULKADIR ROSALES PA-C Member Role: Primary Care Physician Address: [address] [facility] [address] Telecom: Name: Roxanna Weathers Position: Quality Review Member Role: Price Changer Name: ARLENE RODRIGEZ MD Position: P4 Physician - General Surgery Member Role: Surgeon Address: [address] [place] [address] Telecom: Name: Liz Bass Position: Quality Review Member Role: Price Changer Care Team Related Persons Name: LORNA PEGUERO Care Team Personnel Name: Ricki Silver Roundleslye Nurse Position: Bed Management Member Role: Other Name: ABDULKADIR ROSALES PA-C Member Role: Primary Care Physician Address: [address] Telecom: Name: Roxanna Weathers Position: Quality Review Member Role: Price Changer Name: ARLENE RODRIGEZ MD Position: P4 Physician - General Surgery Member Role: Surgeon Address: [address] [place] [address] Telecom: Name: Liz Bass Position: Quality Review Member Role: Price Changer Care Team Related Persons Name: LORNA PEGUERO Care Team Personnel Name: Ricki Silver Roundleslye Nurse Position: Bed Management Member Role: Other Name: ABDULKADIR ROSALES PA-C Member Role: Primary Care Physician Address: [address] Telecom: Name: Roxanna Weathers Position: Quality Review Member Role: Price Changer Name: ARLENE RODRIGEZ MD Position: P4 Physician - General Surgery Member Role: Surgeon Address: [address] [place] [address] Telecom: Name: Liz Bass Position: Quality Review Member Role: Price Changer Care Team Related Persons Name: LORNA PEGUERO Care Team Personnel Name: Ricki Silver Nurse Position: Bed Management Member Role: Other Name: ABDULKADIR ROSALES PA-C Member Role: Primary Care Physician Address: [address] Telecom: Name: Roxanna Weathers Position: Quality Review Member Role: Price Changer Name: ARLENE RODRIGEZ MD Position: P4 Physician - General Surgery Member Role: Surgeon Address: [address] [place] [address] Telecom: Name: Liz Bass Position: Quality Review Member Role: Price Changer Care Team Related Persons Name: LORNA PEGUERO Care Team Personnel Name: Ricki Silver Roundleslye Nurse Position: Bed Management Member Role: Other Name: ABDULKADIR ROSALES PA-C Member Role: Primary Care Physician Address: [address] [place], [place] [address] Telecom: Name: Roxanna Weathers Position: Quality Review Member Role: Price Changer Name: ARLENE RODRIGEZ MD Position: P4 Physician - General Surgery Member Role: Surgeon Address: [address] [place] [address] Telecom: Name: Liz Bass Position: Quality Review Member Role: Price Changer Care Team Related Persons Name: LORNA PEGUERO Care Team Personnel Name: Ricki Silver Rounding Nurse Position: Bed Management Member Role: Other Name: ABDULKADIR ROSALES PA-C Member Role: Primary Care Physician Address: [address] Telecom: Name: Roxanna Weathers Position: Quality Review Member Role: Price Changer Name: ARLENE RODRIGEZ MD Position: P4 Physician - General Surgery Member Role: Surgeon Address: [address] [place] [address] Telecom: Name: Liz Bass Position: Quality Review Member Role: Price Changer Care Team Related Persons Name: LORNA PEGUERO Care Team Personnel Name: Ricki Silver Nurse Position: Bed Management Member Role: Other Name: ABDULKADIR ROSALES PA-C Member Role: Primary Care Physician Address: [address] [place] [address] [address] Telecom: Name: Roxanna Weathers Position: Quality Review Member Role: Price Changer Name: ARLENE RODRIGEZ MD Position: P4 Physician - General Surgery Member Role: Surgeon Address: [address] [place] [address] Telecom: Name: Liz Bass Position: Quality Review Member Role: Price Changer Care Team Related Persons Name: LORNA PEGUERO Care Team Personnel Name: Ricki Silver Roundleslye Nurse Position: Bed Management Member Role: Other Name: ABDULKADIR ROSALES PA-C Member Role: Primary Care Physician Address: [address] [place] [id number] Telecom: Name: Roxanna Weathers Position: Quality Review Member Role: Price Changer Name: ARLENE RODRIGEZ MD Position: P4 Physician - General Surgery Member Role: Surgeon Address: [address] [place] [address] Telecom: Name: Liz Bass Position: Quality Review Member Role: Price Changer Care Team Related Persons Name: LORNA PEGUERO Care Team Personnel Name: Ricki Silver Nurse Position: Bed Management Member Role: Other Name: ABDULKADIR ROSALES PA-C Member Role: Primary Care Physician Address: [address] [place] [address] [address] Telecom: Name: Roxanna Weathers Position: Quality Review Member Role: Price Changer Name: ARLENE RODRIGEZ MD Position: P4 Physician - General Surgery Member Role: Surgeon Address: [address] [place] [address] Telecom: Name: Liz Bass Position: Quality Review Member Role: Price Changer Care Team Related Persons Name: LORNA PEGUERO Care Team Personnel Name: Ricki Silver Roundleslye Nurse Position: Bed Management Member Role: Other Name: ABDULKADIR ROSALES PA-C Member Role: Primary Care Physician Address: [address] [place] [address] [address] Telecom: Name: Roxanna Weathers Position: Quality Review Member Role: Price Changer Name: ARLENE RODRIGEZ MD Position: P4 Physician - General Surgery Member Role: Surgeon Address: [address] [place] [address] Telecom: Name: Liz Bass Position: Quality Review Member Role: Price Changer Care Team Related Persons Name: LORNA PEGUERO Care Team Personnel Name: Ricki Silver Roundleslye Nurse Position: Bed Management Member Role: Other Name: ABDULKADIR ROSALES PA-C Member Role: Primary Care Physician Address: [address] Telecom: Name: Roxanna Weathers Position: Quality Review Member Role: Price Changer Name: ARLENE RODRIGEZ MD Position: P4 Physician - General Surgery Member Role: Surgeon Address: [address] [place] [address] Telecom: Name: Liz Bass Position: Quality Review Member Role: Price Changer Care Team Related Persons Name: LORNA PEGUERO Care Team Personnel Name: Ricki Silver Nurse Position: Bed Management Member Role: Other Name: ABDULKADIR ROSALES PA-C Member Role: Primary Care Physician Address: [address] [place] [address] [address] Telecom: Name: Roxanna Weathers Position: Quality Review Member Role: Price Changer Name: ARLENE RODRIGEZ MD Position: P4 Physician - General Surgery Member Role: Surgeon Address: [address] [place] [address] Telecom: Name: Liz Bass Position: Quality Review Member Role: Price Changer Care Team Related Persons Name: LORNA PEGUERO Care Team Personnel Name: Ricki Silver Nurse Position: Bed Management Member Role: Other Name: ABDULKADIR ROSALES PA-C Member Role: Primary Care Physician Address: [address] [place] [address] [address] Telecom: Name: Roxanna Weathers Position: Quality Review Member Role: Price Changer Name: ARLENE RODRIGEZ MD Position: P4 Physician - General Surgery Member Role: Surgeon Address: [address] [place] [address] Telecom: Name: Liz Bass Position: Quality Review Member Role: Price Changer Care Team Related Persons Name: LORNA PEGUERO Care Team Personnel Name: Ricki Silver Round[place]e Nurse Position: Bed Management Member Role: Other Name: ABDULKADIR ROSALES PA-C Member Role: Primary Care Physician Address: [address] Telecom: Name: Roxanna Weathers Position: Quality Review Member Role: Price Changer Name: ARLENE RODRIGEZ MD Position: P4 Physician - General Surgery Member Role: Surgeon Address: [address] [place] [address] Telecom: Name: Liz Bass Position: Quality Review Member Role: Price Changer Care Team Related Persons Name: LORNA PEGUERO Care Team Personnel Name: Ricki Silver Round[place]e Nurse Position: Bed Management Member Role: Other Name: ABDULKADIR ROSALES PA-C Member Role: Primary Care Physician Address: [address] [place] [address] [address] Telecom: Name: Roxanna Weathers Position: Quality Review Member Role: Price Changer Name: ARLENE RODRIGEZ MD Position: P4 Physician - General Surgery Member Role: Surgeon Address: [address] [place] [address] Telecom: Name: Liz Bass Position: Quality Review Member Role: Price Changer Care Team Related Persons Name: LORNA PEGUERO Care Team Personnel Name: Ricki Silver [place]e Nurse Position: Bed Management Member Role: Other Name: ABDULKADIR ROSALES PA-C Member Role: Primary Care Physician Address: [address] [place] [address] [address] Telecom: Name: Roxanna Weathers Position: Quality Review Member Role: Price Changer Name: ARLENE RODRIGEZ MD Position: P4 Physician - General Surgery Member Role: Surgeon Address: [address] [place] [address] Telecom: Name: Liz Bass Position: Quality Review Member Role: Price Changer Care Team Related Persons Name: LORNA PEGUERO Care Team Personnel Name: Ricki Silver Round[place]e Nurse Position: Bed Management Member Role: Other Name: ABDULKADIR ROSALES PA-C Member Role: Primary Care Physician Address: [address] [place], [facility] Telecom: Name: Roxanna Weathers Position: Quality Review Member Role: Price Changer Name: ARLENE RODRIGEZ MD Position: P4 Physician - General Surgery Member Role: Surgeon Address: [address] [place] [address] Telecom: Name: Liz Bass Position: Quality Review Member Role: Price Changer Care Team Related Persons Name: LORNA PEGUERO Care Team Personnel Name: Silver, Ricki Rounding Nurse Position: Bed Management Member Role: Other Name: ABDULKADIR ROSALES PA-C Member Role: Primary Care Physician Address: [address] [place] [id number] Telecom: Name: Roxanna Weathers Position: Quality Review Member Role: Price Changer Name: ARLENE RODRIGEZ MD Position: P4 Physician - General Surgery Member Role: Surgeon Address: [address] [place] [address] Telecom: Name: Liz Bass Position: Quality Review Member Role: Price Changer Care Team Related Persons Name: LORNA PEGUERO Care Team Personnel Name: Ricki Silver Rounding Nurse Position: Bed Management Member Role: Other Name: ABDULKADIR ROSALES PA-C Member Role: Primary Care Physician Address: [address] [place], [facility] Telecom: Name: Roxanna Weathers Position: Quality Review Member Role: Price Changer Name: ARLENE RODRIGEZ MD Position: P4 Physician - General Surgery Member Role: Surgeon Address: [address] [place] [address] Telecom: Name: Liz Bass Position: Quality Review Member Role: Price Changer Care Team Related Persons Name: LORNA PEGUERO Care Team Personnel Name: Silver, Ricki Rounding Nurse Position: Bed Management Member Role: Other Name: ABDULKADIR ROSALES PA-C Member Role: Primary Care Physician Address: [address] Telecom: Name: Roxanna Weathers Position: Quality Review Member Role: Price Changer Name: ARLENE RODRIGEZ MD Position: P4 Physician - General Surgery Member Role: Surgeon Address: [address] [place] [address] Telecom: Name: Liz Bass Position: Quality Review Member Role: Price Changer Care Team Related Persons Name: LORNA PEGUERO Care Team Personnel Name: Ricki Silver Nurse Position: Bed Management Member Role: Other Name: ABDULKADIR ROSALES PA-C Member Role: Primary Care Physician Address: [address] [place] [address] [address] Telecom: Name: Roxanna Weathers Position: Quality Review Member Role: Price Changer Name: ARLENE RODRIGEZ MD Position: P4 Physician - General Surgery Member Role: Surgeon Address: [address] [place] [address] Telecom: Name: Liz Bass Position: Quality Review Member Role: Price Changer Care Team Related Persons Name: LORNA PEGUERO Care Team Personnel Name: Ricki Silver Nurse Position: Bed Management Member Role: Other Name: ABDULKADIR ROSALES PA-C Member Role: Primary Care Physician Address: [address] [place] [address] [address] Telecom: Name: Roxanna Weathers Position: Quality Review Member Role: Price Changer Name: ARLENE RODRIGEZ MD Position: P4 Physician - General Surgery Member Role: Surgeon Address: [address] [place] [address] Telecom: Name: Liz Bass Position: Quality Review Member Role: Price Changer Care Team Related Persons Name: LORNA PEGUERO Care Team Personnel Name: Ricki Silver Nurse Position: Bed Management Member Role: Other Name: ABDULKADIR ROSALES PA-C Member Role: Primary Care Physician Address: [address] [place] [address] [address] Telecom: Name: Roxanna Weathers Position: Quality Review Member Role: Price Changer Name: ARLENE RODRIGEZ MD Position: P4 Physician - General Surgery Member Role: Surgeon Address: [address] [place] [address] Telecom: Name: Liz Bass Position: Quality Review Member Role: Price Changer Care Team Related Persons Name: LORNA PEGUERO Care Team Personnel Name: Ricki Silver Nurse Position: Bed Management Member Role: Other Name: ABDULKADIR ROSALES PA-C Member Role: Primary Care Physician Address: [address] [place] [address] [address] Telecom: Name: Roxanna Weathers Position: Quality Review Member Role: Price Changer Name: ARLENE RODRIGEZ MD Position: P4 Physician - General Surgery Member Role: Surgeon Address: [address] [place] [address] Telecom: Name: Liz Bass Position: Quality Review Member Role: Price Changer Care Team Related Persons Name: LORNA PEGUERO Care Team Personnel Name: ABDULKADIR ROSALES PA-C Member Role: Primary Care Physician Address: [address] [place] [address] [address] Telecom: Name: Roxanna Weathers Position: Quality Review Member Role: Price Changer Name: ARLENE RODRIGEZ MD Position: P4 Physician - General Surgery Member Role: Surgeon Address: [address] [place] [address] Telecom: Name: Liz Bass Position: Quality Review Member Role: Price Changer Care Team Related Persons Name: LORNA PEGUERO Care Team Personnel Name: ABDULKADIR ROSALES PA-C Member Role: Primary Care Physician Address: [address] [facility] [address] [place], [facility] Telecom: Name: Roxanna Weathers Position: Quality Review Member Role: Price Changer Name: ARLENE RODRIGEZ MD Position: P4 Physician - General Surgery Member Role: Surgeon Address: [address] [place] [address] [place] [address] Telecom: Name: Liz Bass Position: Quality Review Member Role: Price Changer Care Team Related Persons Name: SUDHIR LORNA Care Team Personnel Name: ABDULKADIR ROSALES PA-C Member Role: Primary Care Physician Address: [address] [place] [id number] Telecom: Name: Roxanna Weathers Position: Quality Review Member Role: Price Changer Name: ARLENE RODRIGEZ MD Position: P4 Physician - General Surgery Member Role: Surgeon Address: [address] [place] [address] [place] [address] Telecom: Name: Liz Bass Position: Quality Review Member Role: Price Changer Care Team Related Persons Name: LORNA PEGUERO INFORMATION SOURCE (unrecogn ized section and content) DATE CREATED AUTHOR 06/11/2024 WARREN [facility]-Baptiste DATE CREATED AUTHOR AUTHOR'S ORGANIZ ATION 08/15/2024 [facility] DATE CREATED AUTHOR AUTHOR'S ORGANIZ ATION 08/20/2024 [facility] DATE CREATED AUTHOR AUTHOR'S ORGANIZ ATION 05/06/2025 [facility] DATE CREATED AUTHOR AUTHOR'S ORGANIZ ATION 05/08/2025 [facility] Reason for Visit (unrecogniz ed section [...] BE BASED ON THE PRIMARY CLINICAL RECORDS. [facility] [employer] [facility]. provides no warranty or guarantee of the accuracy or completeness of information in this document.
[2025-06-06] MEDS: Vancomycin HCl 2,000 MG in 0.9% Normal Saline (500mL Bag) 500 ML 250 MG IV (14:02)
[2025-06-06 14:11] LABS: Reflex Lactate? Y
--- NOTE | 2025-06-06 14:40 | PCM.RX.CS ---
Consult Antibiotic Management Pharmacy has been consulted to manage selected antibiotic: Vancomycin Type of Intervention Type of Consult: New start Suspected Infection Suspected Infection: Sepsis Labs Labs: Sodium 136 mmol/L (133-145) 06/06/25 10:12 Potassium 3.3 mmol/L (3.3-5.1) 06/06/25 10:12 Chloride 99 mmol/L (98-108) 06/06/25 10:12 Carbon Dioxide 23.2 mmol/L (21.0-32.0) 06/06/25 10:12 Anion Gap 13 (5-15) 06/06/25 10:12 BUN 12 mg/dL (4-19) 06/06/25 10:12 Creatinine 0.68 mg/dL (0.70-1.20) L 06/06/25 10:12 Est GFR (MDRD) Non-Af 110 (>60) 06/06/25 10:12 BUN/Creatinine Ratio 17.3 RATIO (10-20) 06/06/25 10:12 Glucose 127 mg/dL (70-99) H 06/06/25 10:12 Microbiology Microbiology: Microbiology 06/06/25 10:12 Mucosa - Nose SARS-CoV-2, Influenza & RSV (PCR) - Final Pharmacy Plan for Drug Dosing Pharmacy Plan for Drug Dosing: NEW START IV VANCOMYCIN Consulting Physician: Becca Mahan Indication: Sepsis Goal Trough: 15-20 SrCr: 0.68 mg/dL CrCl: 119 mL/min Comments: loading dose of 2000mg given in ER 06/06 @ 1402 Vancomycin Dose: Will start 1250mg Q8 and get a trough prior to the 4th total dose per policy. Pending Level: 06/07/25 @ 1330 Pharmacy Service will continue to monitor and adjust dosing as required.
--- NOTE | 2025-06-06 16:51 | CON.PCM.CC_ITS ---
HPI Consult Data Date of Consult: 06/06/25 HPI Narrative Reason for Consultation: sepsis HPI Narrative: 44 yo wf with hx of Metastatic Colon Ca, Intra-abd abscess times 2, Morbid Obesity admitted with n/v post chemotx 06/05. Pt noted nausea/vomiting early this am. Denies abd pain. Denies fever. Denies cough/dysuria. In ED normtensive, Lactate elevated. Given sepsis bolus. Dosed with antibxs for unclear source. Given anti-emetics. Feeling better now. [facility] Medical History (Updated 06/06/25 @ 15:[address] Alicia Mahan, DO) Microcytic anemia Seasonal allergies Anxiety and depression Obesity GERD (gastroesophageal reflux disease) Colostomy in place Colon cancer Home Medications ?Medication ?Instructions ?Recorded ?Last Taken ?Type loratadine 10 mg tablet (Claritin) 10 mg PO DAILY 01/2206/05/25 History olanzapine 5 mg tablet 5 mg PO QHS 06/06/25 5 History omeprazole 20 mg tablet,delayed 20 mg PO DAILY 5 06/05/25 History release ondansetron HCl 8 mg tablet 8 mg PO Q8H PRN PRN nausea /vomiting 06/06/25 Unknown History potassium chloride 10 mEq 10 meq PO BID 06/06/2506/05 History tablet,extended release prochlorperazine maleate 5 mg 5 mg PO Q8H PRN nausea a nd vomiting 06/06/25 06/05/25 History tablet Allergy/AdvReac Type Severity Reaction Status Date / Time ciprofloxacin (From Cipro) AdvReac HTN Verified 06/06/25 09:27 Family History no significant family his Surgical History (Updated 06/06/25 @ 15:[address] Alicia Mahan, DO) Hx of colostomy Social History (Updated 06/06/25 @ 15:[address] Alicia Mahan, ) household members: spouse housing: house Smoking Status: Never smoker alcohol intake: never substance use type: does not use ROS Constitutional Constitutional: Reports systems reviewed and no addt'l complaints, except as documented and as per HPI Objective Data Objective Data Vital Signs: Vital Signs Last response 3 Temperature 36.6 C 06/06/25 14:20 Temperature Source Temporal 06/06/25 14:20 Pulse Rate 90 06/06/25 15:00 Respiratory Rate 20 H 06/06/25 15:00 Respiratory Effort Normal 06/06/25 09:59 Respiratory Pattern Normal 06/06/25 09:59 Blood Pressure 103/55 L 06/06/25 15:00 Blood Pressure Mean 71 06/06/25 15:00 Blood Pressure Source Monitor 06/06/25 15:00 Blood Pressure Position Supine 06/06/25 15:00 Blood Pressure Location Left Arm 06/06/25 15:00 Pulse Ox 98 06/06/25 15:00 Oxygen Delivery Method Room Air 06/06/25 15:00 I&O: I&O Last 24 Hours 3 06/05/25 06/06/25 06/06/25 23:59 11:59 23:59 Intake Total 1000 / 3640 2640 / 3640 Balance 1000 / 3640 2640 / 3640 I&O: Total Stay 3 06/06/25 09:24 thru 06/06/25 16:41 Intake Total 3640 Balance 3640 Current Meds Ordered / Administered: Current meds ordered / Administered 3 Generic Name Dose Route Start Last Admin Trade Name Freq PRN Reason Stop Dose Admin Acetaminophen 650 mg 06/06/25 14:11 Acetaminophen 325 Mg Tablet PO Q6H PRN PRN Pain 1-10 Or Fever >100.7 Albuterol Sulfate 2.5 mg 06/06/25 14:11 Albuterol 2.5 Mg/3 Ml Vial.Neb. INHALATION Q2H PRN PRN SOB &/OR WHEEZING Enoxaparin Sodium 40 mg 06/06/25 22:00 Enoxaparin 40 Mg/0.4 Ml Syringe SC BID [facility] Norepinephrine Bitartrate 8 mg 250 mls @ 9.375 mls/hr 06/06/25 14:11 06/06/25 14:38 / Sodium Chloride CONT INF Not Given .[id number] ALISA Protocol 5 MCG/MIN Cefepime HCl 2 gm/ Sodium 100 mls @ 200 mls/hr 06/06/25 22:00 Chloride IV Q8 ALISA Vancomycin IV-PHARMACY TO DOSE 500 mls @ 250 mls/hr 06/06/25 14:11 1 each/ Sodium Chloride IV X1 PRN Rx to Dose Protocol Vancomycin HCl 1,250 mg/ 275 mls @ 167 mls/hr 06/06/25 22:00 Sodium Chloride IV Q8H ALISA Loratadine 10 mg 06/07/25 10:00 Loratadine 10 Mg Tablet PO DAILY [facility] Melatonin 10 mg 06/06/25 14:11 Melatonin 10 Mg Tablet PO QHS PRN PRN INSOMNIA Olanzapine 5 mg 06/06/25 22:00 Olanzapine 5 Mg/Tab Tab.Rapdis PO QHS [facility] Ondansetron HCl 8 mg 06/06/25 14:11 Ondansetron 8 Mg Tablet PO Q8H PRN PRN NAUSEA/VOMITING Ondansetron HCl 4 mg 06/06/25 14:11 Ondansetron 4 Mg/2 Ml Vial IV Q8H PRN PRN NAUSEA/VOMITING Pantoprazole Sodium 20 mg 06/07/25 10:00 Pantoprazole Sodium 20 Mg Tablet PO DAILY [facility] Polysaccharide Iron Complex 150 mg 06/07/25 10:00 Iron Polysaccharide Complex 150 Mg Capsule PO DAILY [facility] Potassium Chloride 10 meq 06/06/25 17:00 Potassium [facility] Prochlorperazine Maleate 5 mg 06/06/25 14:11 Prochlorperazine 5 Mg Tablet PO Q8H PRN nausea and vomiting Senna/Docusate Sodium 2 tablet 06/06/25 14:11 Senna/Docusate Sodium 1 Tablet PO BID PRN PRN Constipation Sodium Chloride 10 - 40 ml 06/06/25 14:45 0.9% Saline Lock 10 Ml Syringe IV UD PRN Port-a-Cath (VAD)/R Port Flush Sodium Chloride 10 - 40 ml 06/06/25 14:45 0.9 % Nacl (Sterile) Posiflush 10 Ml IV UD PRN Port access or dressing change Vancomycin Protocol 1 lab 06/07/25 12:30 Vancomycin Trough/Random Due 06/07/25 14:30 DAILY [facility] Physical Exam Narrative awake, nad, talking in complete sentences pupils:= o/p:dry CV:RRR, no m/r/g Chest: CTA B Abd: soft, nt, +bs(palpated by nursing) Ext: no c/e/c Affect: normal Neuro: 5/5 UE Skin: no rashes Lab / Micro Data 06/06/25 10:12 06/06/25 10:12 Labs: Laboratory Results - last 24 hr 06/06/25 10:12: WBC 27.7 H, RBC 4.04 L, Hgb 8.7 L, Hct 30.8 L, MCV 76.2 L, MCH 21.5 L, MCHC 28.2 L, RDW Std Deviation 53.8 H, RDW Coeff of Car 20.4 H, Plt Count 338, MPV 10.4, Neut % (Auto) Not Reportable, Absolute Neuts (auto) 27.7 H, Absolute Lymphs (auto) 0.00 L, Total Counted 100, Neutrophils % (Manual) 99 H, Band Neutrophils % 1, Platelet Estimate ADEQUATE, RBC Morphology N CYTIC, Hypochromasia 1+, PT 14.3, INR 1.1, APTT 22.0 L, Sodium 136, Potassium 3.3, Chloride 99, Carbon Dioxide 23.2, Anion Gap 13, BUN 12, Creatinine 0.68 L, Estim Creat Clear Calc 119.66, Est GFR (MDRD) Non-Af 110, BUN/Creatinine Ratio 17.3, G lucose 127 H, Lactic Acid 3.1 H*, Calcium 8.5, Total Bilirubin 0.59, AST 27, ALT 17, Alkaline Phosphatase 187 H, Total Protein 7.0, Albumin 3.8, Globulin 3.2, Albumin/Globulin Ratio 1.2, Lipase 14 06/06/25 11:55: Urine Color Yellow, Urine Clarity Sl. Cloudy, Urine pH 6.5, Ur Specific [place] 1.010, Urine Protein 30 H, Urine Glucose (UA) Normal, Urine Ketones Negative, Urine Occult Blood 10 H, Urine Nitrite Negative, Urine Bilirubin Negative, Urine Urobilinogen Normal, Ur Leukocyte Esterase 100 H, Urine RBC 0 SEEN, Urine WBC 0-5 SEEN, Ur Squamous Epith Cells 5-10 SEEN, Urine Bacteria 0 SEEN, Urine Mucus 0 SEEN 06/06/25 14:05: Lactic Acid 1.9 Micro: Microbiology 06/06/25 10:12 Mucosa - Nose SARS-CoV-2, Influenza & RSV (PCR) - Final Imaging Radiology Impression Chest X-Ray 06/06/25 09:54 IMPRESSION: Nodular opacities bilaterally, raising concern for metastatic disease. A follow-up CT is recommended to further evaluate. Reading Location: [facility] Assessment and Plan . Assessment and plan: A/P: 1. Sepsis vs volume depletion: suspect the latter. No clear source. Received sepsis bolus and IVFs. Lactate down trending. 2. Leukocytosis: source not clear. No abd pain. Empiric antibxs. f/u cultures. 3. Volume Depletion: IVFs 4. N/V: anti-emetics. 5. FEN: oral diet 6. PX: Chemical The entirety of this encounter was done via Telemedicine
[2025-06-06] MEDS: Potassium Chloride Oral Tablet 10 MEQ PO (17:49)
[2025-06-06] MEDS: Cefepime HCl 2 GM in 0.9% Normal Saline (100mL MB+) 100 ML IV (20:35)
[2025-06-06] MEDS: Vancomycin HCl 1,250 MG in 0.9% Normal Saline (250mL Bag) 250 ML 167 MG IV (21:23)
[2025-06-06] MEDS: OLANZapine 5 MG/TAB TAB.RAPDIS PO (21:24)
--- NOTE | 2025-06-06 21:34 | NURSING ---
2100- this RN verified w/ patient that last chemotherapy treatment finished administering June 04 despite provider notes stating her last treatment was June 05. Judie Adams notified.
[2025-06-07] VITALS (15 sets, daily range): BP systolic 90–126; BP diastolic 51–77; PULSE 80–104; RESP 15–30; TEMP 36.7–38; O2SAT 92–100; BMI 39.7
[2025-06-07] MEDS: 0.9% Saline Lock 10 ML Syringe IV (04:21)
[2025-06-07 04:34] LABS: Hematocrit 28.5 % (37-47); Hemoglobin 8.0 g/dL (12.0-15.0); Immature Granulocytes Count 0.680 X10^3/uL (0.0-0.0); Mean Corp Hgb Conc 28.1 g/dL (32-36); Mean Corpuscular Volume 76.2 fL (81-99); Mean Platelet Vol. 10.0 fl (6.2-12.0); NRBC Flagged by Analyzer 0 % (0-5); POSITIVE DIFFERENTIAL YES; POSITIVE MORPHOLOGY YES; Platelet Count 260 K/mm3 (150-450); RBC Distribution Width CV 20.5 % (11.6-14.6); RBC Distribution Width SD 53.7 fl (35.1-43.9); Red Blood Count 3.74 M/mm3 (4.2-5.4); White Blood Count 21.6 K/mm3 (4.4-11.0)
[2025-06-07 04:35] LABS: Differential Indicated SCAN CRITERIA MET
[2025-06-07 04:53] LABS: AST(SGOT) 27 U/L (<=31); Alanine Aminotransfer ALT/SGPT 22 U/L (<=34); Albumin, Serum 3.5 g/dL (3.5-5.0); Alkaline Phosphatase 153 U/L (35-104); Anion Gap 9 (5-15); BUN 6 mg/dL (4-19); BUN/Creat Ratio 11.9 RATIO (10-20); Calcium,Total 8.3 mg/dL (7.6-11.0); Carbon Dioxide 22.4 mmol/L (21.0-32.0); Chloride 104 mmol/L (98-108); Estimated Creatinine Clearance 157.18 ml/min (50-250); Globulin 2.9 g/dL (2.2-4.2); Glucose 120 mg/dL (70-99); Magnesium 2.1 mg/dL (1.5-2.2); Potassium 3.2 mmol/L (3.3-5.1)
[2025-06-07] MEDS: Vancomycin HCl 1,250 MG in 0.9% Normal Saline (250mL Bag) 250 ML 167 MG IV (05:11)
[2025-06-07 05:16] LABS: Toxic Granulation 3+
[2025-06-07 05:17] LABS: Differential Comment SCANNED
--- NOTE | 2025-06-07 05:48 | PCM.PN.INT ---
Assessment & Plan Assessment/Plan (1) Sepsis: (2) Hypotension: PLAN: Plan RECOMMENDATIONS: 1. Continue empiric antimicrobials, pending culture results. 2. Electrolyte repletion as needed. 3. Lovenox for DVT prophylaxis. 4. Encourage incentive spirometer use and mobilize patient as tolerated. 5. The patient is medically stable for transfer out of the intensive care unit. 6. Will sign off from a critical care perspective. Please call with any additional questions. IMPRESSIONS: 1. Sepsis The patient presented with questionable sepsis in the setting of an immunocompromised state on chemotherapy for metastatic colon cancer. The exact source of her infection is not entirely clear. She does have a Mediport in place with blood cultures pending. The patient was initiated on antimicrobial therapy. She was treated with sepsis fluids per protocol and remains hemodynamically stable. Recommend continuing supportive care with antimicrobials, pending finalized infectious workup. 2. History of metastatic colon adenocarcinoma/anemia/GERD/seasonal allergies/obesity Complicates care, management, recovery and prognosis. Continue home medications as indicated. This note was generated with [employer] dictation software. It may contain incorrect words, spelling, and punctuation that were not noted in checking the note before signing. Subjective Subjective The patient was seen and examined at the bedside this morning. Events from the last 24 hours have been reviewed. The patient is currently afebrile, hemodynamically stable and maintaining appropriate oxygen saturations on room air. The patient has no specific complaints this morning. White blood cell count has improved to 21,000. Hemoglobin and platelet count are stable. Potassium is low at 3.2 with a normal creatinine. Objective Data Objective Data The patient's most recent lab work, culture data and imaging studies have all been personally reviewed. Respiratory viral panel was negative. Blood and urine cultures are pending. Vital Signs: Vital Signs Temp Pulse Resp BP Pulse Ox O2 Del Method 98.0 F 95 30 H 124/76 H 94 Room Air 06/07/25 00:00 06/07/25 05:00 06/07/25 05:00 06/07/25 05:00 06/07/25 05:00 06/07/25 05:00 Oxygen Delivery Method Room Air Weight: 224 lb 3.362 oz Body Mass Index (BMI) 39.6 Intake & Output: Intake and Output for Last 24 Hours 06/05/25 06/06/25 06/07/25 23:59 23:59 23:59 Intake Total 4015 / 4015 Output Total 1150 / 1450 700 / 700 Balance 2865 / 2565 -700 / -700 Lab / Micro Data Attestation: I reviewed the patient's lab results. 06/07/25 04:27 06/07/25 04:27 Labs: Laboratory Results - last 24 hr 06/06/25 10:12: WBC 27.7 H, RBC 4.04 L, Hgb 8.7 L, Hct 30.8 L, MCV 76.2 L, MCH 21.5 L, MCHC 28.2 L, RDW Std Deviation 53.8 H, RDW Coeff of Car 20.4 H, Plt Count 338, MPV 10.4, Neut % (Auto) Not Reportable, Absolute Neuts (auto) 27.7 H, Absolute Lymphs (auto) 0.00 L, Total Counted 100, Neutrophils % (Manual) 99 H, Band Neutrophils % 1, Platelet Estimate ADEQUATE, RBC Morphology N CYTIC, Hypochromasia 1+, PT 14.3, INR 1.1, APTT 22.0 L, Sodium 136, Potassium 3.3, Chloride 99, Carbon Dioxide 23.2, Anion Gap 13, BUN 12, Creatinine 0.68 L, Estim Creat Clear Calc 119.66, Est GFR (MDRD) Non-Af 110, BUN/Creatinine Ratio 17.3, Glucose 127 H, Lactic Acid 3.1 H*, Calcium 8.5, Total Bilirubin 0.59, AST 27, ALT 17, Alkaline Phosphatase 187 H, Total Protein 7.0, Albumin 3.8, Globulin 3.2, Albumin/Globulin Ratio 1.2, Lipase 14 06/06/25 11:55: Urine Color Yellow, Urine Clarity Sl. Cloudy, Urine pH 6.5, Ur Specific [place] 1.010, Urine Protein 30 H, Urine Glucose (UA) Normal, Urine Ketones Negative, Urine Occult Blood 10 H, Urine Nitrite Negative, Urine Bilirubin Negative, Urine Urobilinogen Normal, Ur Leukocyte Esterase 100 H, Urine RBC 0 SEEN, Urine WBC 0-5 SEEN, Ur Squamous Epith Cells 5-10 SEEN, Urine Bacteria 0 SEEN, Urine Mucus 0 SEEN 06/06/25 14:05: Lactic Acid 1.9 06/06/25 16:00: MRSA (PCR) Negative 06/07/25 04:27: WBC 21.6 H, RBC 3.74 L, Hgb 8.0 L, Hct 28.5 L, MCV 76.2 L, MCH 21.4 L, MCHC 28.1 L, RDW Std Deviation 53.7 H, RDW Coeff of Car 20.5 H, Plt Count 260, MPV 10.0, Immature Gran % (Auto) 3.100 H, Neut % (Auto) 94.2 H, Lymph % (Auto) 2.3 L, [place] % (Auto) 0.2, Eos % (Auto) 0.0, Baso % (Auto) 0.2, Absolute Neuts (auto) 20.4 H, Absolute Lymphs (auto) 0.50 L, Nucleated RBC % 0, Differential Comment SCANNED, Toxic Granulation 3+, Sodium 135, Potassium 3.2 L, Chloride 104, Carbon Dioxide 22.4, Anion Gap 9, BUN 6, Creatinine 0.52 L, Estim Creat Clear Calc 157.18, Est GFR (MDRD) Non-Af 117, BUN/Creatinine Ratio 11.9, Glucose 120 H, Calcium 8.3, Phosphorus 2.2 L, Magnesium 2.1, Total Bilirubin 0.68, AST 27, ALT 22, Alkaline Phosphatase 153 H, Total Protein 6.4, Albumin 3.5, Globulin 2.9, Albumin/Globulin Ratio 1.2 Micro: Microbiology 06/06/25 16:01 Mucosa - Nasopharyngeal Respiratory Panel (PCR) - Final 06/06/25 10:12 Mucosa - Nose SARS-CoV-2, Influenza & RSV (PCR) - Final Radiography Diagnostic Testing: Radiology Impression Chest X-Ray 06/06/25 09:54 IMPRESSION: Nodular opacities bilaterally, raising concern for metastatic disease. A follow-up CT is recommended to further evaluate. Reading Location: [facility] Physical Exam Const alert, oriented x3 and no apparent distress General Appearance: cooperative HEENT normocephalic, head/scalp atraumatic and moist oral mucous membranes Eyes PERRL, EOMs intact bilaterally and conjunctivae normal Neck supple General: trachea midline Chest inspection of chest normal Resp normal respiratory effort Auscultation: Negative for rales, rhonchi or wheezes Cardio regular rate and regular rhythm GI soft to palpation and non-tender Inspection: ostomy present Extremity no clubbing, cyanosis or edema Skin no rashes or lesions noted Neuro CN's II-XII intact bilaterally, moves all extremities and no focal motor deficits Psych cooperative and affect normal Charges/Coding Visit Charges Inpatient E&M: 30114 Subs Hosp L2
[2025-06-07] MEDS: Cefepime HCl 2 GM in 0.9% Normal Saline (100mL MB+) 100 ML IV ×3 (06:57→20:53)
--- NOTE | 2025-06-07 07:59 | PN.HOSP_ITS ---
Reason for Visit Chief Complaint: Fever Subjective Subjective Feeling much better. Thinks she may have contracted an illness from her , then simultaneously had her post-chemo nausea and vomiting. Objective Data Objective Data Vital Signs: Vital Signs Temp Pulse Resp BP Pulse Ox O2 Del Method 38.0 C H 90 20 H 98/51 L 96 Room Air 06/07/25 06:00 06/07/25 07:00 06/07/25 07:00 06/07/25 07:00 06/07/25 07:00 06/07/25 07:00 Oxygen Delivery Method Room Air Weight: 101.8 kg Body Mass Index (BMI) 39.7 Intake & Output: Intake and Output for Last 24 Hours 06/05/25 06/06/25 06/07/25 23:59 23:59 23:59 Intake Total 4015 / 4015 375 / 375 Output Total 1150 / 1450 1000 / 1000 Balance 2865 / 2565 -625 / -625 Lab / Micro Data 06/07/25 04:27 06/07/25 04:27 Labs: Laboratory Results - last 24 hr 06/06/25 10:12: WBC 27.7 H, RBC 4.04 L, Hgb 8.7 L, Hct 30.8 L, MCV 76.2 L, MCH 21.5 L, MCHC 28.2 L, RDW Std Deviation 53.8 H, RDW Coeff of Car 20.4 H, Plt Count 338, MPV 10.4, Neut % (Auto) Not Reportable, Absolute Neuts (auto) 27.7 H, Absolute Lymphs (auto) 0.00 L, Total Counted 100, Neutrophils % (Manual) 99 H, Band Neutrophils % 1, Platelet Estimate ADEQUATE, RBC Morphology N CYTIC, Hypochromasia 1+, PT 14.3, INR 1.1, APTT 22.0 L, Sodium 136, Potassium 3.3, Chloride 99, Carbon Dioxide 23.2, Anion Gap 13, BUN 12, Creatinine 0.68 L, Estim Creat Clear Calc 119.66, Est GFR (MDRD) Non-Af 110, BUN/Creatinine Ratio 17.3, G lucose 127 H, Lactic Acid 3.1 H*, Calcium 8.5, Total Bilirubin 0.59, AST 27, ALT 17, Alkaline Phosphatase 187 H, Total Protein 7.0, Albumin 3.8, Globulin 3.2, Albumin/Globulin Ratio 1.2, Lipase 14 06/06/25 11:55: Urine Color Yellow, Urine Clarity Sl. Cloudy, Urine pH 6.5, Ur Specific [place] 1.010, Urine Protein 30 H, Urine Glucose (UA) Normal, Urine Ketones Negative, Urine Occult Blood 10 H, Urine Nitrite Negative, Urine Bilirubin Negative, Urine Urobilinogen Normal, Ur Leukocyte Esterase 100 H, Urine RBC 0 SEEN, Urine WBC 0-5 SEEN, Ur Squamous Epith Cells 5-10 SEEN, Urine Bacteria 0 SEEN, Urine Mucus 0 SEEN 06/06/25 14:05: Lactic Acid 1.9 06/06/25 16:00: MRSA (PCR) Negative 06/07/25 04:27: WBC 21.6 H, RBC 3.74 L, Hgb 8.0 L, Hct 28.5 L, MCV 76.2 L, MCH 21.4 L, MCHC 28.1 L, RDW Std Deviation 53.7 H, RDW Coeff of Car 20.5 H, Plt Count 260, MPV 10.0, Immature Gran % (Auto) 3.100 H, Neut % (Auto) 94.2 H, Lymph % (Auto) 2.3 L, [place] % (Auto) 0.2, Eos % (Auto) 0.0, Baso % (Auto) 0.2, Absolute Neuts (auto) 20.4 H, Absolute Lymphs (auto) 0.50 L, Nucleated RBC % 0, Differential Comment SCANNED, Toxic Granulation 3+, Sodium 135, Potassium 3.2 L, Chloride 104, Carbon Dioxide 22.4, Anion Gap 9, BUN 6, Creatinine 0.52 L, Estim Creat Clear Calc 157.18, Est GFR (MDRD) Non-Af 117, BUN/Creatinine Ratio 11.9, G lucose 120 H, Calcium 8.3, Phosphorus 2.2 L, Magnesium 2.1, Total Bilirubin 0.68, AST 27, ALT 22, Alkaline Phosphatase 153 H, Total Protein 6.4, Albumin 3.5, Globulin 2.9, Albumin/Globulin Ratio 1.2 Micro: Microbiology 06/06/25 16:01 Mucosa - Nasopharyngeal Respiratory Panel (PCR) - Final 06/06/25 10:12 Mucosa - Nose SARS-CoV-2, Influenza & RSV (PCR) - Final Radiography Diagnostic Testing: Radiology Impression Chest X-Ray 06/06/25 09:54 IMPRESSION: Nodular opacities bilaterally, raising concern for metastatic disease. A follow-up CT is recommended to further evaluate. Reading Location: [facility] Physical Exam Const alert and no apparent distress HEENT head/scalp atraumatic and moist oral mucous membranes Resp normal respiratory effort, no retractions, no use of accessory muscles and clear to auscultation bilaterally Cardio regular rate, regular rhythm, S1 normal heart sound and S2 normal heart sound GI normal to inspection, nondistended, normoactive bowel sounds, soft to palpation, non-tender and non-distended Extremity normal to inspection Assessment & Plan Assessment/Plan (1) Sepsis: (2) Lactic acidosis: (3) Hypotension: PLAN: Plan Sepsis * Patient is immunocompromised host on chemotherapy for metastatic colon cancer * On presentation had hypotension with lactic acidosis, fever and leukocytosis however leukocytosis may be related to Neulasta * Patient does have a Mediport in place * Blood cultures and urine cultures obtained, sputum culture ordered if able to produce. Resp panel negative. MRSA PCR negative * antibiotics with cefepime and vancomycin * Treated with sepsis protocol and received 30 cc/kg body weight for fluid resuscitation due to hypotension and lactic acidosis. No norepi needed. Nausea and vomiting * Improved * Suspect related to chemotherapy * Continue continue home antiemetics to include olanzapine which she takes only for nausea related to chemo * As needed IV antiemetics here to include Compazine and Zofran Metastatic colon adenocarcinoma * Patient has had no surgical resection for this and options are being investigated * Does have loop ileostomy related to intra-abdominal abscess * Undergoing chemo and completed round 2 * Follows with Dr. Lombardi Outpatient follow-up after discharge Chronic conditions: * Microcytic anemia - baseline hemoglobin is unknown - Reviewed her data on her phone from outside hospital exact her baseline hemoglobin runs between 8 and 9- Iron studies were suggestive of iron deficiency- Will start p.o. iron supplementation just once daily to avoid constipation may uptitrate if needed * GERD- Continue home PPI * Seasonal allergies- Continue home loratadine * Obesity class II- BMI is 39.7- Recommend weight loss- Complicates treatment, prognosis, outcomes DVT prophylaxis - Lovenox 40 SQ twice daily CODE STATUS - Full code verified on admission Monitor overnight, follow up cultures. If cultures are negative, then would DC abx. DW family at bedside. Charges/Coding Visit Charges Inpatient E&M: 98636 Subs Hosp L2
--- NOTE | 2025-06-07 10:46 | CASEMGMT ---
MELA DRIVER Assessment Face to Face with patient for initial transition planning/care coordination assessment. MELA DRIVER introduced self and role at [facility], pt voices understanding. Pt is A&Ox4 and is resting comfortably in bed and is calm. Pt's mother and are at the bedside. Care providers, pharmacy, and demographics verified. Admitting dx: Sepsis LACE Strata: 1 PCP: Abdulkadir Patel Specialists: Maria C (Oncology), Mason (Surgeon - Qulin) Preferred Pharmacy: [facility] Insurance: [facility] Prescription Benefit: Yes LNOK: Socrates (), Carmen (mother), Marya (Sister) Living Arrangements: Pt lives with her and 2 children (Ages 19 and 17) in a single story home with one step to enter. Pt states that her parents live next door. ADLs/IADLs: Indep, 6-Click score is 24. Transportation: Self, , daughter, family DME: Ostomy supplies. Pt states that she provides self care and denies concerns or needs HHC/SNF: Reports hx of HHC s/p ostomy placement but cannot remember the name of the agency Pt?s goal: Home Plan: Home with pt's family, no additional needs identified. Pt states that she plans to follow up with Dr Lombardi on 06/14 and that her next chemo treatment is 06/15. Pt states that she feels safe with this plan and denies any further questions or concerns. José Miguel Guillory RN, CM
[2025-06-07] MEDS: Potassium Chloride Oral Tablet 10 MEQ PO ×2 (11:22→16:57)
[2025-06-07] MEDS: OLANZapine 5 MG/TAB TAB.RAPDIS PO (20:54)
[2025-06-08 02:45] VITALS: BP 130/68; PULSE 82; RESP 14; TEMP 36.9; O2SAT 100
[2025-06-08] MEDS: Cefepime HCl 2 GM in 0.9% Normal Saline (100mL MB+) 100 ML IV ×3 (05:00→21:47)
[2025-06-08] MEDS: 0.9% Saline Lock 10 ML Syringe IV (05:01)
[2025-06-08 05:13] LABS: Hematocrit 26.6 % (37-47); Hemoglobin 7.5 g/dL (12.0-15.0); Immature Granulocytes Count 0.150 X10^3/uL (0.0-0.0); Mean Corp Hgb Conc 28.2 g/dL (32-36); Mean Corpuscular Volume 75.8 fL (81-99); Mean Platelet Vol. 10.0 fl (6.2-12.0); NRBC Flagged by Analyzer 0 % (0-5); POSITIVE MORPHOLOGY YES; Platelet Count 205 K/mm3 (150-450); RBC Distribution Width CV 20.3 % (11.6-14.6); RBC Distribution Width SD 53.6 fl (35.1-43.9); Red Blood Count 3.51 M/mm3 (4.2-5.4); White Blood Count 9.9 K/mm3 (4.4-11.0)
[2025-06-08 05:32] LABS: Anion Gap 9 (5-15); BUN 5 mg/dL (4-19); BUN/Creat Ratio 10.6 RATIO (10-20); Calcium,Total 8.4 mg/dL (7.6-11.0); Carbon Dioxide 25.1 mmol/L (21.0-32.0); Chloride 105 mmol/L (98-108); Estimated Creatinine Clearance 163.56 ml/min (50-250); Glucose 103 mg/dL (70-99); Potassium 3.1 mmol/L (3.3-5.1)
[2025-06-08 05:48] LABS: Differential Indicated SCAN CRITERIA MET
[2025-06-08 05:57] LABS: Differential Comment SCANNED
[2025-06-08 05:58] LABS: Anisocytosis 1+
[2025-06-08 06:00] VITALS: BMI 39.5
[2025-06-08 08:08] VITALS: BP 114/71; PULSE 80; RESP 14; TEMP 36.8; O2SAT 98
--- NOTE | 2025-06-08 08:16 | PN.HOSP_ITS ---
Reason for Visit Chief Complaint: Fever Subjective Subjective Feeling better. Objective Data Objective Data Vital Signs: Vital Signs Temp Pulse Resp BP Pulse Ox O2 Del Method 36.8 C 80 14 114/71 98 Room Air 06/08/25 08:08 06/08/25 08:08 06/08/25 08:08 06/08/25 08:08 06/08/25 08:08 06/08/25 08:08 Oxygen Delivery Method Room Air Weight: 101.3 kg Body Mass Index (BMI) 39.5 Intake & Output: Intake and Output for Last 24 Hours 06/06/25 06/07/25 06/08/25 23:59 23:59 23:59 Intake Total 4015 / 4015 1615 / 1615 100 / 100 Output Total 1150 / 1450 2200 / 2200 Balance 2865 / 2565 -585 / -585 100 / 100 Lab / Micro Data 06/08/25 05:05 06/08/25 05:05 Labs: Laboratory Results - last 24 hr 06/08/25 05:05: WBC 9.9, RBC 3.51 L, Hgb 7.5 L, Hct 26.6 L, MCV 75.8 L, MCH 21.4 L, MCHC 28.2 L, RDW Std Deviation 53.6 H, RDW Coeff of Car 20.3 H, Plt Count 205, MPV 10.0, Immature Gran % (Auto) 1.500 H, Neut % (Auto) 85.9 H, Lymph % (Auto) 10.8 L, [place] % (Auto) 1.2, Eos % (Auto) 0.2, Baso % (Auto) 0.4, Absolute Neuts (auto) 8.5 H, Absolute Lymphs (auto) 1.06, Nucleated RBC % 0, Differential Comment SCANNED, Anisocytosis 1+, Sodium 139, Potassium 3.1 L, Chloride 105, Carbon Dioxide 25.1, Anion Gap 9, BUN 5, Creatinine 0.50 L, Estim Creat Clear Calc 163.56, Est GFR (MDRD) Non-Af 118, BUN/Creatinine Ratio 10.6, Glucose 103 H , Calcium 8.4 Micro: Microbiology 06/06/25 10:12 Blood Culture (Wb) - Port Blood Culture - Preliminary Gram negative keisha 06/06/25 16:01 Mucosa - Nasopharyngeal Respiratory Panel (PCR) - Final 06/06/25 10:12 Mucosa - Nose SARS-CoV-2, Influenza & RSV (PCR) - Final Physical Exam Const alert and no apparent distress HEENT head/scalp atraumatic and moist oral mucous membranes Resp normal respiratory effort, no retractions, no use of accessory muscles and clear to auscultation bilaterally Cardio regular rate, regular rhythm, S1 normal heart sound and S2 normal heart sound GI normal to inspection, nondistended, normoactive bowel sounds, soft to palpation, non-tender and non-distended Extremity normal to inspection and full ROM Assessment & Plan Assessment/Plan (1) Sepsis: (2) Lactic acidosis: (3) Hypotension: PLAN: Plan Sepsis * Patient is immunocompromised host on chemotherapy for metastatic colon cancer * On presentation had hypotension with lactic acidosis, fever and leukocytosis however leukocytosis may be related to Neulasta * Patient does have a Mediport in place * Blood cultures and urine cultures obtained, sputum culture ordered if able to produce. Resp panel negative. MRSA PCR negative * antibiotics with cefepime and vancomycin * Treated with sepsis protocol and received 30 cc/kg body weight for fluid resuscitation due to hypotension and lactic acidosis. No norepi needed. Bacteremia * Gram negative keisha in 1, gram positive keisha in another. * on cefepime * repeat BCx * start vancomycin. Nausea and vomiting * Improved * Suspect related to chemotherapy * Continue continue home antiemetics to include olanzapine which she takes only for nausea related to chemo * As needed IV antiemetics here to include Compazine and Zofran Metastatic colon adenocarcinoma * Patient has had no surgical resection for this and options are being investigated * Does have loop ileostomy related to intra-abdominal abscess * Undergoing chemo and completed round 2 * Follows with Dr. Lombardi Outpatient follow-up after discharge Chronic conditions: * Microcytic anemia - baseline hemoglobin is unknown - Reviewed her data on her phone from outside hospital exact her baseline hemoglobin runs between 8 and 9. Iron low. Continue Iron. * GERD- Continue home PPI * Seasonal allergies- Continue home loratadine * Obesity class II- BMI is 39.7- Recommend weight loss- Complicates treatment, prognosis, outcomes DVT prophylaxis - Lovenox 40 SQ twice daily CODE STATUS - Full code verified on admission Charges/Coding Visit Charges Inpatient E&M: 42232 Subs Hosp L2
[2025-06-08] MEDS: Potassium Chloride Oral Tablet 10 MEQ PO ×2 (08:22→16:35)
[2025-06-08] MEDS: Potassium Chloride Oral Tablet 20 MEQ 40 MEQ PO (08:22)
[2025-06-08 10:58] LABS: Iron 14 ug/dL (50-170); Iron Binding Capacity,Total 319 ug/dL (250-450); Iron Binding Capacity,Unsat 305 ug/dL (228-428)
[2025-06-08 11:25] LABS: Ferritin 138 ng/mL (22-378)
[2025-06-08 11:27] LABS: Vitamin B12 3338 pg/mL (180-914)
[2025-06-08 11:28] LABS: FOLATES,SERUM (FOLIC ACID) 32.90 ng/mL (4.60-34.80)
[2025-06-08] MEDS: Vancomycin HCl 2,000 MG in 0.9% Normal Saline (500mL Bag) 500 ML 250 MG IV (14:18)
--- NOTE | 2025-06-08 15:52 | PHA.PHARE_ITS ---
Consult Antibiotic Management Pharmacy has been consulted to manage selected antibiotic: Vancomycin Type of Intervention Type of Consult: New start Suspected Infection Suspected Infection: Sepsis Prior Doses of Antibiotics Prior Doses of Antibiotics Received/Current Regimen: 2000 MG ONCE (PATIENT WAS RESTARTED AFTER RECIEING 2000 MG ONCE AND 1250 Q8H * 3 Labs Labs: Sodium 139 mmol/L (133-145) 06/08/25 05:05 Potassium 3.1 mmol/L (3.3-5.1) L 06/08/25 05:05 Chloride 105 mmol/L (98-108) 06/08/25 05:05 Carbon Dioxide 25.1 mmol/L (21.0-32.0) 06/08/25 05:05 Anion Gap 9 (5-15) 06/08/25 05:05 BUN 5 mg/dL (4-19) 06/08/25 05:05 Creatinine 0.50 mg/dL (0.70-1.20) L 06/08/25 05:05 Est GFR (MDRD) Non-Af 118 (>60) 06/08/25 05:05 BUN/Creatinine Ratio 10.6 RATIO (10-20) 06/08/25 05:05 Glucose 103 mg/dL (70-99) H 06/08/25 05:05 Microbiology Microbiology: Microbiology 06/06/25 10:12 Blood Culture (Wb) - Port Blood Culture - Preliminary Bacteroides fragilis 06/06/25 10:55 Blood Culture (Wb) - Right Hand Blood Culture - Preliminary 06/06/25 11:55 Urine, Clean Catch Urine Culture - Final 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 Last dose of 1250 mg was on 06/07/2025 @ 0511. Will reload due to renal function. Pharmacy Service will continue to monitor and adjust dosing as required. Vancomycin Dose: 2000 mg once @ 1418, 1250 mg starting 06/08/2025 2230 Pending Level: [id number] @ 2200 Follow-Up Labs Follow-Up Labs: Trough: Vancomycin Date/Time Labs Ordered Labs to be done on [date and time ordered]: 06/09/2025 @ 2200
[2025-06-08] MEDS: Vancomycin HCl 1,250 MG in 0.9% Normal Saline (250mL Bag) 250 ML 167 MG IV (22:28)
[2025-06-09 04:00] VITALS: BP 106/51; PULSE 88; RESP 16; TEMP 36.4; O2SAT 96
[2025-06-09 04:07] LABS: Hematocrit 27.3 % (37-47); Hemoglobin 7.6 g/dL (12.0-15.0); Immature Granulocytes Count 0.150 X10^3/uL (0.0-0.0); Mean Corp Hgb Conc 27.8 g/dL (32-36); Mean Corpuscular Volume 75.8 fL (81-99); Mean Platelet Vol. 10.1 fl (6.2-12.0); NRBC Flagged by Analyzer 0 % (0-5); POSITIVE MORPHOLOGY YES; Platelet Count 213 K/mm3 (150-450); RBC Distribution Width CV 20.2 % (11.6-14.6); RBC Distribution Width SD 53.4 fl (35.1-43.9); Red Blood Count 3.60 M/mm3 (4.2-5.4); White Blood Count 7.9 K/mm3 (4.4-11.0)
[2025-06-09 04:10] LABS: Differential Indicated SCAN CRITERIA MET
[2025-06-09 04:28] LABS: Anion Gap 10 (5-15); BUN 6 mg/dL (4-19); BUN/Creat Ratio 13.8 RATIO (10-20); Calcium,Total 8.2 mg/dL (7.6-11.0); Carbon Dioxide 22.8 mmol/L (21.0-32.0); Chloride 106 mmol/L (98-108); Estimated Creatinine Clearance 189.66 ml/min (50-250); Glucose 93 mg/dL (70-99); Potassium 3.3 mmol/L (3.3-5.1)
[2025-06-09 04:35] LABS: Differential Comment SCANNED
[2025-06-09 04:37] LABS: Anisocytosis 1+
[2025-06-09] MEDS: Cefepime HCl 2 GM in 0.9% Normal Saline (100mL MB+) 100 ML IV ×3 (05:38→22:17)
[2025-06-09 05:48] VITALS: BMI 39.4
[2025-06-09] MEDS: Vancomycin HCl 1,250 MG in 0.9% Normal Saline (250mL Bag) 250 ML 167 MG IV (06:29)
--- NOTE | 2025-06-09 07:32 | PCM.PN.HOSP ---
Reason for Visit Chief Complaint: Fever Subjective Subjective Feeling well. No issues overnight. Objective Data Objective Data Vital Signs: Vital Signs Temp Pulse Resp BP Pulse Ox O2 Del Method 36.4 C L 88 16 106/51 L 96 Room Air 06/09/25 04:00 06/09/25 04:00 06/09/25 04:00 06/09/25 04:00 06/09/25 04:00 06/09/25 04:00 Oxygen Delivery Method Room Air Weight: 101 kg Body Mass Index (BMI) 39.4 Intake & Output: Intake and Output for Last 24 Hours 06/07/25 06/08/25 06/09/25 23:59 23:59 23:59 Intake Total 1615 / 1615 1240 / 1240 375 / 375 Output Total 2200 / 2200 Balance -585 / -585 1240 / 1240 375 / 375 Lab / Micro Data 06/09/25 04:00 06/09/25 04:00 Labs: Laboratory Results - last 24 hr 06/08/25 09:45: Iron 14 L, TIBC 319, Iron Saturation 4.4 L, Unsaturated IBC 305, Ferritin 138, Vitamin B12 3338 H, Serum Folate 32.90, TSH 1.810 06/09/25 04:00: WBC 7.9, RBC 3.60 L, Hgb 7.6 L, Hct 27.3 L, MCV 75.8 L, MCH 21.1 L, MCHC 27.8 L, RDW Std Deviation 53.4 H, RDW Coeff of Car 20.2 H, Plt Count 213, MPV 10.1, Immature Gran % (Auto) 1.900 H, Neut % (Auto) 74.3 H, Lymph % (Auto) 20.6, [place] % (Auto) 2.1, Eos % (Auto) 0.5, Baso % (Auto) 0.6, Absolute Neuts (auto) 5.9, Absolute Lymphs (auto) 1.63, Nucleated RBC % 0, Differential Comment SCANNED, Anisocytosis 1+, Sodium 139, Potassium 3.3, Chloride 106, Carbon Dioxide 22.8, Anion Gap 10, BUN 6, Creatinine 0.43 L, Estim Creat Clear Calc 189.66, Est GFR (MDRD) Non-Af 123, BUN/Creatinine Ratio 13.8, Glucose 93, Calcium 8.2 Micro: Microbiology 06/06/25 10:12 Blood Culture (Wb) - Port Blood Culture - Preliminary Bacteroides fragilis 06/06/25 10:55 Blood Culture (Wb) - Right Hand Blood Culture - Preliminary 06/06/25 11:55 Urine, Clean Catch Urine Culture - Final GNR lactose cold roller Mixed Gram Positive Organisms 06/06/25 16:01 Mucosa - Nasopharyngeal Respiratory Panel (PCR) - Final 06/06/25 10:12 Mucosa - Nose SARS-CoV-2, Influenza & RSV (PCR) - Final Physical Exam Const alert and no apparent distress HEENT head/scalp atraumatic and moist oral mucous membranes Resp normal respiratory effort, no retractions, no use of accessory muscles and clear to auscultation bilaterally Cardio regular rate, regular rhythm, S1 normal heart sound and S2 normal heart sound GI normal to inspection, nondistended, normoactive bowel sounds, soft to palpation, non-tender and non-distended Neuro Sensorium / Orientation: awake and alert Assessment & Plan Assessment/Plan (1) Sepsis: (2) Lactic acidosis: (3) Hypotension: PLAN: Plan Sepsis Patient is immunocompromised host on chemotherapy for metastatic colon cancer On presentation had hypotension with lactic acidosis, fever and leukocytosis however leukocytosis may be related to Neulasta Patient does have a Mediport in place Blood cultures and urine cultures obtained, sputum culture ordered if able to produce. Resp panel negative. MRSA PCR negative antibiotics with cefepime and vancomycin Treated with sepsis protocol and received 30 cc/kg body weight for fluid resuscitation due to hypotension and lactic acidosis. No norepi needed. Bacteremia Gram negative keisha (Bacteroides fragilis) in from port, gram positive keisha in hand culture. on cefepime and vanc repeat BCx start vancomycin. will consult ID for further input. Nausea and vomiting Resolved Suspect related to chemotherapy and illness. Continue continue home antiemetics to include olanzapine which she takes only for nausea related to chemo As needed IV antiemetics here to include Compazine and Zofran Metastatic colon adenocarcinoma Patient has had no surgical resection for this and options are being investigated Does have loop ileostomy related to intra-abdominal abscess Undergoing chemo and completed round [address] Lombardi Outpatient follow-up after discharge Chronic conditions: Microcytic anemia - baseline hemoglobin is unknown - Reviewed her data on her phone from outside hospital exact her baseline hemoglobin runs between 8 and 9. Iron low. Continue Iron. GERD- Continue home PPI Seasonal allergies- Continue home loratadine Obesity class II- BMI is 39.7- Recommend weight loss- Complicates treatment, prognosis, outcomes DVT prophylaxis- Lovenox 40 SQ twice daily CODE STATUS- Full code verified on admission Charges/Coding Visit Charges Inpatient E&M: 22801 Subs Hosp L2
[2025-06-09] MEDS: Potassium Chloride Oral Tablet 10 MEQ PO ×2 (08:30→16:24)
[2025-06-09 08:45] VITALS: BP 101/54; PULSE 91; RESP 18; TEMP 37.1; O2SAT 100
[2025-06-09 12:55] LABS: Vancomycin, Trough Level 14.3 ug/mL (5.0-15.0)
[2025-06-09 13:23] VITALS: BP 118/71; PULSE 90; RESP 18; TEMP 36.7; O2SAT 97
[2025-06-09] MEDS: Vancomycin Trough/Random Due 1 LAB MC (13:33)
--- NOTE | 2025-06-09 13:44 | CON.PCM.ID_ITS ---
Assessment & Plan Assessment/Plan (1) Colon cancer: (2) Sepsis: PLAN: One bcx with GPR, one bcx with B frag in anaerobic bottle. Fever and leukocytosis rapidly resolved. Feeling fine. Does have risk for intra-abd, polymicrobial infection but no focal symptoms. Possible these bcxs represent two separate contaminants. Resp pcr panel neg. Cont vanc/cefepime for now. ucx with only small amount mixed kalani. Will follow, thank you HPI Consult Data Date of Consult: 06/09/25 HPI Narrative Reason for Consultation: (+) bcx HPI Narrative: LUCILA HSIEH, is a 44 F with adenocarcinoma of colon, ostomy in place, getting chemo through R chest port. Admitted to [facility] [facility] 08/2024 with intra-abd abscess. Had chemo 06/05, next day developed fever, mild nausea. No other focal symptoms, no issues with port. sick with mild illness recently. No cough, no oral sores, no blood in stool, no abd pain, no rash, no congestion. Came to ED, admitted on vanc and cefepime. Feeling fine today. Full ROS performed and neg except as noted above. [facility] Medical History Microcytic anemia Seasonal allergies Anxiety and depression Obesity GERD (gastroesophageal reflux disease) Colostomy in place Colon cancer Home Medications ?Medication ?Instructions ?Recorded ?Last Taken ?Type loratadine 10 mg tablet (Claritin) 10 mg PO DAILY 01/2206/05/25 History olanzapine 5 mg tablet 5 mg PO QHS 06/06/25 5 History omeprazole 20 mg tablet,delayed 20 mg PO DAILY 5 06/05/25 History release ondansetron HCl 8 mg tablet 8 mg PO Q8H PRN PRN nausea /vomiting 06/06/25 Unknown History potassium chloride 10 mEq 10 meq PO BID 06/06/2506/05 History tablet,extended release prochlorperazine maleate 5 mg 5 mg PO Q8H PRN nausea a nd vomiting 06/06/25 06/05/25 History tablet Allergy/AdvReac Type Severity Reaction Status Date / Time ciprofloxacin (From Cipro) AdvReac HTN Verified 06/06/25 09:27 Family History no significant family his Surgical History (Updated 06/06/25 @ 15:[address] Alicia Mahan, ) Hx of colostomy Social History (Updated 06/06/25 @ 15:[address] Alicia Mahan DO) household members: spouse housing: house Smoking Status: Never smoker alcohol intake: never substance use type: does not use Physical Exam Const alert, oriented x3 and no apparent distress General Appearance: cooperative HEENT normocephalic and head/scalp atraumatic Eyes PERRL and EOMs intact bilaterally Neck supple and No nodes Resp normal air movement and clear to auscultation bilaterally Cardio regular rate, regular rhythm and no murmurs GI soft to palpation, non-tender and non-distended Extremity General Extremity: Negative for edema Skin no rashes or lesions noted Skin Narrative: R chest port no inflammation Neuro CN's II-XII intact bilaterally Lab / Micro Data Attestation: I reviewed the patient's lab results. 06/09/25 04:00 06/09/25 04:00 Labs: Laboratory Results - last 24 hr 06/09/25 04:00: WBC 7.9, RBC 3.60 L, Hgb 7.6 L, Hct 27.3 L, MCV 75.8 L, MCH 21.1 L, MCHC 27.8 L, RDW Std Deviation 53.4 H, RDW Coeff of Car 20.2 H, Plt Count 213, MPV 10.1, Immature Gran % (Auto) 1.900 H, Neut % (Auto) 74.3 H, Lymph % (Auto) 20.6, [place] % (Auto) 2.1, Eos % (Auto) 0.5, Baso % (Auto) 0.6, Absolute Neuts (auto) 5.9, Absolute Lymphs (auto) 1.63, Nucleated RBC % 0, Differential Comment SCANNED, Anisocytosis 1+, Sodium 139, Potassium 3.3, Chloride 106, Carbon Dioxide 22.8, Anion Gap 10, BUN 6, Creatinine 0.43 L, Estim Creat Clear Calc 189.66, Est GFR (MDRD) Non-Af 123, BUN/Creatinine Ratio 13.8, Glucose 93, Calcium 8.2 06/09/25 12:22: Vancomycin Trough 14.3 Micro: Microbiology 06/06/25 10:12 Blood Culture (Wb) - Port Blood Culture - Preliminary Bacteroides fragilis 06/06/25 10:55 Blood Culture (Wb) - Right Hand Blood Culture - Preliminary 06/06/25 11:55 Urine, Clean Catch Urine Culture - Final 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
--- NOTE | 2025-06-09 14:56 | PHA.PHARE_ITS ---
Consult Antibiotic Management Pharmacy has been consulted to manage selected antibiotic: Vancomycin Type of Intervention Type of Consult: Follow-up Suspected Infection Suspected Infection: Sepsis Prior Doses of Antibiotics Prior Doses of Antibiotics Received/Current Regimen: 3 Labs Labs: Sodium 139 mmol/L (133-145) 06/09/25 04:00 Potassium 3.3 mmol/L (3.3-5.1) 06/09/25 04:00 Chloride 106 mmol/L (98-108) 06/09/25 04:00 Carbon Dioxide 22.8 mmol/L (21.0-32.0) 06/09/25 04:00 Anion Gap 10 (5-15) 06/09/25 04:00 BUN 6 mg/dL (4-19) 06/09/25 04:00 Creatinine 0.43 mg/dL (0.70-1.20) L 06/09/25 04:00 Est GFR (MDRD) Non-Af 123 (>60) 06/09/25 04:00 BUN/Creatinine Ratio 13.8 RATIO (10-20) 06/09/25 04:00 Glucose 93 mg/dL (70-99) 06/09/25 04:00 Vancomycin Trough 14.3 ug/mL (5.0-15.0) 06/09/25 12:22 Microbiology Microbiology: Microbiology 06/06/25 10:12 Blood Culture (Wb) - Port Blood Culture - Preliminary Bacteroides fragilis 06/06/25 10:55 Blood Culture (Wb) - Right Hand Blood Culture - Preliminary 06/06/25 11:55 Urine, Clean Catch Urine Culture - Final GNR lactose traffic recorder Mixed Gram Positive Organisms 06/06/25 16:01 Mucosa - Nasopharyngeal Respiratory Panel (PCR) - Final 06/06/25 10:12 Mucosa - Nose SARS-CoV-2, Influenza & RSV (PCR) - Final Dosing Weight Weight used for dosin.3 kg Estimated Creatinine Clearance Estimated Creatinine Clearance: 189.67 Goal Trough Goal Trough: 15-20 mcg/mL Pharmacy Plan for Drug Dosing Pharmacy Plan for Drug Dosing: VANCOMYCIN LEVEL RECEIVED Current Vancomycin Dose: 1250 MG Q8H Number of Doses Received: 3 Vancomycin Level: 14.3 Hours Since Last Dose: 6 Renal Function: crcl 189.67 mk/min, 0.43 mg/dL Vancomycin Plan/Comments: Level was sub-therapeutic, and given that it was drawn early 1.5 HRS , will increase dose to 1500 mg Q8H. Pharmacy Service will continue to monitor and adjust dosing as required. Pending Level: 06/10/2025 @ 1430 Follow-Up Labs Follow-Up Labs: Trough: Vancomycin Date/Time Labs Ordered Labs to be done on [date and time ordered]: 06/10/2025 @1430
[2025-06-09] MEDS: Vancomycin HCl 1,500 MG in 0.9% Normal Saline (500mL Bag) 500 ML 250 MG IV ×2 (15:26→23:13)
[2025-06-09 16:20] VITALS: BP 118/69; PULSE 83; RESP 16; TEMP 36.7; O2SAT 100
[2025-06-09 22:14] VITALS: BP 97/67; PULSE 88; RESP 18; TEMP 36.2; O2SAT 98
[2025-06-09] MEDS: 0.9% Saline Lock 10 ML Syringe IV (22:16)
[2025-06-10 03:43] VITALS: BP 106/71; PULSE 76; RESP 18; TEMP 36; O2SAT 98
[2025-06-10 04:59] VITALS: BMI 38.7
[2025-06-10] MEDS: Cefepime HCl 2 GM in 0.9% Normal Saline (100mL MB+) 100 ML IV ×3 (05:12→21:15)
[2025-06-10 05:20] LABS: Hematocrit 28.3 % (37-47); Hemoglobin 8.0 g/dL (12.0-15.0); Immature Granulocytes Count 0.100 X10^3/uL (0.0-0.0); Mean Corp Hgb Conc 28.3 g/dL (32-36); Mean Corpuscular Volume 75.9 fL (81-99); Mean Platelet Vol. 10.3 fl (6.2-12.0); NRBC Flagged by Analyzer 0 % (0-5); POSITIVE MORPHOLOGY YES; Platelet Count 254 K/mm3 (150-450); RBC Distribution Width CV 20.5 % (11.6-14.6); RBC Distribution Width SD 53.2 fl (35.1-43.9); Red Blood Count 3.73 M/mm3 (4.2-5.4); White Blood Count 8.2 K/mm3 (4.4-11.0)
[2025-06-10 05:22] LABS: Anion Gap 11 (5-15); BUN 6 mg/dL (4-19); BUN/Creat Ratio 14.3 RATIO (10-20); Calcium,Total 8.5 mg/dL (7.6-11.0); Carbon Dioxide 24.2 mmol/L (21.0-32.0); Chloride 104 mmol/L (98-108); Estimated Creatinine Clearance 201.51 ml/min (50-250); Glucose 90 mg/dL (70-99); Potassium 3.3 mmol/L (3.3-5.1)
[2025-06-10 05:49] LABS: Differential Indicated SCAN CRITERIA MET
[2025-06-10 06:09] LABS: Differential Comment SCANNED
[2025-06-10 06:12] LABS: Anisocytosis 1+; Polychromasia RARE
[2025-06-10] MEDS: Vancomycin HCl 1,500 MG in 0.9% Normal Saline (500mL Bag) 500 ML 250 MG IV (06:21)
[2025-06-10] MEDS: Potassium Chloride Oral Tablet 10 MEQ PO ×2 (08:14→17:54)
--- NOTE | 2025-06-10 08:22 | PCM.PN.HOSP ---
Reason for Visit Chief Complaint: Fever Subjective Subjective Patient feeling well. No events overnight. Objective Data Objective Data Vital Signs: Vital Signs Temp Pulse Resp BP Pulse Ox O2 Del Method 36.0 C L 76 18 106/71 98 Room Air 06/10/25 03:43 06/10/25 03:43 06/10/25 03:43 06/10/25 03:43 06/10/25 03:43 06/10/25 08:04 Oxygen Delivery Method Room Air Weight: 99.2 kg Body Mass Index (BMI) 38.7 Intake & Output: Intake and Output for Last 24 Hours 06/08/25 06/09/25 06/10/25 23:59 23:59 23:59 Intake Total 1240 / 1240 1940 / 1940 630 / 630 Balance 1240 / 1240 1940 / 1940 630 / 630 Lab / Micro Data 06/10/25 05:10 06/10/25 04:35 Labs: Laboratory Results - last 24 hr 06/09/25 12:22: Vancomycin Trough 14.3 06/10/25 04:35: WBC Cancelled, Corrected WBC Cancelled, RBC Cancelled, Hgb Cancelled, Hct Cancelled, MCV Cancelled, MCH Cancelled, MCHC Cancelled, RDW Std Deviation Cancelled, RDW Coeff of Car Cancelled, Plt Count Cancelled, MPV Cancelled, Immature Gran % (Auto) Cancelled, Neut % (Auto) Cancelled, Lymph % (Auto) Cancelled, Kerr % (Auto) Cancelled, Eos % (Auto) Cancelled, Baso % (Auto) Cancelled, Absolute Neuts (auto) Cancelled, Absolute Lymphs (auto) Cancelled, Total Counted Cancelled, Neutrophils % (Manual) Cancelled, Band Neutrophils % Cancelled, Lymphocytes % (Manual) Cancelled, Monocytes % (Manual) Cancelled, Eosinophils % (Manual) Cancelled, Basophils % (Manual) Cancelled, Metamyelocytes % Cancelled, Myelocytes % Cancelled, Promyelocytes % Cancelled, Blast Cells % Cancelled, Plasma Cell % (Manual) Cancelled, Other Cells % Cancelled, Nucleated RBC % Cancelled, Nucleated RBCs/100 WBC Cancelled, Differential Comment Cancelled, Diff Path Review Cancelled, Hypersegmented Neuts Cancelled, Atypical Lymphocytes Cancelled, Reactive Lymphocytes Cancelled, Smudge Cells Cancelled, Toxic Granulation Cancelled, Toxic Vacuolation Cancelled, Dohle Bodies Cancelled, Liana Rods Cancelled, Platelet Estimate Cancelled, Plt Morphology Comment Cancelled, RBC Morphology Cancelled 06/10/25 04:35: RBC Morphology Cancelled, Polychromasia Cancelled, Hypochromasia Cancelled, Basophilic Stippling Cancelled, Anisocytosis Cancelled, Microcytosis Cancelled, Macrocytosis Cancelled, Spherocytes Cancelled, Sickle Cells Cancelled, Target Cells Cancelled, Tear Drop Cells Cancelled, Ovalocytes Cancelled, Stomatocytes Cancelled, [place] Bodies Cancelled, Samuel Cells Cancelled, Bite Cells Cancelled, Crenated Cell Cancelled, Acanthocytes (Spur) Cancelled, Rouleaux Cancelled, Schistocytes Cancelled, Sodium 140, Potassium 3.3, Chloride 104, Carbon Dioxide 24.2, Anion Gap 11, BUN 6, Creatinine 0.40 L, Estim Creat Clear Calc 201.51, Est GFR (MDRD) Non-Af 125, BUN/Creatinine Ratio 14.3, Glucose 90, Calcium 8.5 06/10/25 05:10: WBC 8.2, RBC 3.73 L, Hgb 8.0 L, Hct 28.3 L, MCV 75.9 L, MCH 21.4 L, MCHC 28.3 L, RDW Std Deviation 53.2 H, RDW Coeff of Car 20.5 H, Plt Count 254, MPV 10.3, Immature Gran % (Auto) 1.200 H, Neut % (Auto) 73.9 H, Lymph % (Auto) 19.3, Kerr % (Auto) 4.2, Eos % (Auto) 0.7, Baso % (Auto) 0.7, Absolute Neuts (auto) 6.1, Absolute Lymphs (auto) 1.59, Nucleated RBC % 0, Differential Comment SCANNED, Polychromasia RARE, Anisocytosis 1+ Micro: Microbiology 06/06/25 10:55 Blood Culture (Wb) - Right Hand Blood Culture - Preliminary 06/08/25 12:55 Blood Culture (Wb) - Anticubital Right Bacteria Detection (PCR) - Final Staphylococcus epidermidis 06/08/25 12:55 Blood Culture (Wb) - Anticubital Right Blood Culture - Preliminary Gram positive organism 06/06/25 10:12 Blood Culture (Wb) - Port Blood Culture - Preliminary Bacteroides fragilis 06/06/25 11:55 Urine, Clean Catch Urine Culture - Final 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 Afebrile. HEENT head/scalp atraumatic and moist oral mucous membranes Resp normal respiratory effort, no retractions, no use of accessory muscles and clear to auscultation bilaterally Cardio regular rate, regular rhythm, S1 normal heart sound and S2 normal heart sound GI normal to inspection, nondistended, normoactive bowel sounds, soft to palpation, non-tender and non-distended Neuro oriented x3 and moves all extremities Sensorium / Orientation: awake and alert Assessment & Plan Assessment/Plan (1) Sepsis: (2) Lactic acidosis: (3) Hypotension: PLAN: Plan Sepsis Patient is immunocompromised host on chemotherapy for metastatic colon cancer On presentation had hypotension with lactic acidosis, fever and leukocytosis however leukocytosis may be related to Neulasta Patient does have a Mediport in place Blood cultures and urine cultures obtained, sputum culture ordered if able to produce. Resp panel negative. MRSA PCR negative antibiotics with cefepime and vancomycin Treated with sepsis protocol and received 30 cc/kg body weight for fluid resuscitation due to hypotension and lactic acidosis. No norepi needed. Abdominal abscess Patient underwent a CAT scan today that showed circumferential thickening of the rectum likely diverticulitis. Reactive lymphadenopathy and mesorectal fat. Suspected fistulous tract extending from the affected rectosigmoid colon into the right adnexa with numerous air-fluid levels suggestive of tubo-ovarian abscess. Through [employer] I obtained the patient's CAT scan from [facility] on August 19 and at that time patient had multifocal pelvic abscesses. Question fistula communication with the sigmoid colon to the abscess eccentric to the right adnexa. I did have these images pushed to [facility] and requested to review by her surgeon, Dr. Cuevas who did her diverting colostomy as well as her port. The transfer liaison was able to get hold of Dr. Cuevas who did not review the images but stated that the patient had been referred over to [facility] and would recommend any transfer further inquiry be deferred to [facility]. I have since sent a referral over to [facility] where the patient has been established with oncology and have had the images pushed over there by CAT scan and I am waiting further follow-up. Bacteremia Gram negative keisha (Bacteroides fragilis) in from port, gram positive keisha in hand culture. on cefepime and vanc repeat BCx showing S. epi s concern for abdominal etiology given the CAT scan findings as above Nausea and vomiting Resolved Suspect related to chemotherapy and illness. Continue continue home antiemetics to include olanzapine which she takes only for nausea related to chemo As needed IV antiemetics here to include Compazine and Zofran Metastatic colon adenocarcinoma Patient has had no surgical resection for this and options are being investigated Does have loop ileostomy related to intra-abdominal abscess Undergoing chemo and completed round 2 Patient had been seeing Dr. Lombardi but since referred over to [facility]. Chronic conditions: Microcytic anemia - baseline hemoglobin is unknown - Reviewed her data on her phone from outside hospital exact her baseline hemoglobin runs between 8 and 9. Iron low. Continue Iron. GERD- Continue home PPI Seasonal allergies- Continue home loratadine Obesity class II- BMI is 39.7- Recommend weight loss- Complicates treatment, prognosis, outcomes DVT prophylaxis- Lovenox 40 SQ twice daily CODE STATUS- Full code verified on admission Greater than 80 minutes spent on this case in regards to reviewing the images, pulling up image reports through [employer], having images pushed to [place] and then [facility]. Trying to get further information from the surgeon at [place]. Speaking to specialist over at [facility]. Attempting to facilitate transfer to outside hospital. Charges/Coding Visit Charges Inpatient E&M: 94791 Subs Hosp L3 Procedures Hospitalists Procedures: Other Procedure - See Report
[2025-06-10 09:40] VITALS: BP 118/68; PULSE 88; RESP 15; TEMP 36.4; O2SAT 99
--- NOTE | 2025-06-10 10:01 | PCM.PN.ID ---
Physical Exam Narrative Feeling fine, no fever, no abd pain, no cough, no dysuria Const alert and no apparent distress General Appearance: cooperative Resp normal air movement and clear to auscultation bilaterally Cardio regular rate and regular rhythm GI soft to palpation, non-tender and non-distended Skin no rashes or lesions noted ID ID: Route of nutrition/ use of supplements: [] Nutritional Intake: [] IV Site: [] Tomlin Catheter: [] Assessment & Plan Assessment/Plan (1) Colon cancer: (2) Sepsis: PLAN: One bcx with CoNS, one bcx with B frag in anaerobic bottle. Fever and leukocytosis rapidly resolved. Feeling fine. Does have risk for intra-abd, polymicrobial infection but no focal symptoms. Will ct abd/pelvis and narrow abx to cefepime/flagyl. If CT does not show signs of infection, ok for home with 7 days po augmentin 875mg bid. D/w geriatric case manager. Will follow
--- NOTE | 2025-06-10 12:48 | CT_ITS ---
PROCEDURE: ABDOMEN/PELVIS WITH CONTRAST 06/10/2025 REASON FOR EXAM: ANAEROBIC BACTEREMIA, GASTRIC CANCER TECHNIQUE: Procedure Code: [id number] Modality: CT Procedure: ABDOMEN/PELVIS WITH CONTRAST CT of the abdomen and pelvis were performed following the intravenous administration of contrast. Oral contrast was administered. Axial sagittal and coronal reformatted images are submitted for interpretation. CONTRAST: Isovue-300 VOLUME: 100 mL One or more dose reduction techniques were used (e.g., Automated exposure control, adjustment of the mA and/or kV according to patient size, use of iterative reconstruction technique. RADIATION DOSE SUMMARY: Total DLP: 1873 MGycm COMPARISON: None FINDINGS: There is thickening along the greater curvature of the stomach. An enlarged lymph node is seen lateral to the stomach in the left upper quadrant measuring 12 x 12 mm. There is no additional enlarged lymph nodes seen in the mesentery or retroperitoneum. There are multiple liver lesions present. The largest lesion is in the right hepatic lobe measuring 52 x 40 mm. There is a lesion in the left lobe measuring 38 x 36 mm. 5 additional liver lesions are scattered through the liver parenchyma. The portal and hepatic veins are patent. There are several small pulmonary nodules. The largest measures 5.3 mm in the right lower lobe image 5 series 2. Remainder of the examination is significant for splenomegaly (15 cm). The enhanced appearance of the kidneys, gallbladder, pancreas, spleen, adrenal glands and retroperitoneum reveal no abnormality. There is no hydronephrosis stone or renal mass. Ureters are normal. The urinary bladder is decompressed. Uterus and a left dnexa are within normal limits. Circumferential thickening of the sigmoid colon present with fistulous tracts suggested extending to the right adnexa. Within the right adnexa, there is a 4.4 cm complex multiloculated fluid collection adjacent to the right ovary and suspicious for abscess. Few scattered diverticula present in the sigmoid colon. No bowel obstruction noted. Numerous lymph nodes are seen in the mesorectal fat. Large parastomal hernia adjacent to colostomy site. Osseous structures reveal no destructive bone lesion. Multilevel facet disease present. CT/Abdomen/Pelvis WITH Contrast IMPRESSION: Circumferential thickening of the rectum. Given the presence of diverticular d isease diverticulitis is the most likely etiology. Underlying neoplasm can not be excluded. Reactive lymphadenopathy seen in the mesorectal fat. Suspected fistulous tract extending from the affected rectal sigmoid colon into the right adnexa with numerous air-fluid levels present suggestive of tubo-ovarian abscess. Differential considerations would include fistulous tract from previous diverticulitis. Focal thickening along the greater curvature of the stomach likely reflective o f patient's known malignancy. Lymph node adjacent to the greater curvature of the stomach in the left upper quadrant is concernin g for local regional lymphatic spread the with additional metastatic disease to the liver and lung bases. Large anterior abdominal wall hernia containing loops of small and large intest ine at the site of colostomy. Splenomegaly. Reading Location: [id number]
[2025-06-10 15:40] VITALS: BP 111/65; PULSE 74; RESP 15; TEMP 36.4; O2SAT 98
[2025-06-10 21:06] VITALS: BP 123/79; PULSE 95; RESP 18; TEMP 35.9; O2SAT 100
[2025-06-11 04:25] VITALS: BP 109/73; PULSE 80; RESP 18; TEMP 36.4; O2SAT 97
[2025-06-11] MEDS: 0.9% Saline Lock 10 ML Syringe IV (05:12)
[2025-06-11] MEDS: Cefepime HCl 2 GM in 0.9% Normal Saline (100mL MB+) 100 ML IV (05:12)
[2025-06-11 05:13] LABS: Hematocrit 27.2 % (37-47); Hemoglobin 7.7 g/dL (12.0-15.0); Immature Granulocytes Count 0.060 X10^3/uL (0.0-0.0); Mean Corp Hgb Conc 28.3 g/dL (32-36); Mean Corpuscular Volume 75.8 fL (81-99); Mean Platelet Vol. 11.1 fl (6.2-12.0); NRBC Flagged by Analyzer 0 % (0-5); POSITIVE MORPHOLOGY YES; Platelet Count 261 K/mm3 (150-450); RBC Distribution Width CV 20.8 % (11.6-14.6); RBC Distribution Width SD 53.1 fl (35.1-43.9); Red Blood Count 3.59 M/mm3 (4.2-5.4); White Blood Count 7.1 K/mm3 (4.4-11.0)
[2025-06-11 05:15] VITALS: BMI 39.0
[2025-06-11 05:36] LABS: Differential Indicated SCAN CRITERIA MET
[2025-06-11 05:51] LABS: Anion Gap 12 (5-15); BUN 7 mg/dL (4-19); BUN/Creat Ratio 15.4 RATIO (10-20); Calcium,Total 8.9 mg/dL (7.6-11.0); Carbon Dioxide 22.5 mmol/L (21.0-32.0); Chloride 104 mmol/L (98-108); Estimated Creatinine Clearance 188.29 ml/min (50-250); Glucose 113 mg/dL (70-99); Potassium 3.5 mmol/L (3.3-5.1)
[2025-06-11 07:36] LABS: Anisocytosis 1+
--- NOTE | 2025-06-11 07:54 | PCM.PN.HOSP ---
Reason for Visit Chief Complaint: Fever Subjective Subjective Feeling well. No events overnight. Objective Data Objective Data Vital Signs: Vital Signs Temp Pulse Resp BP Pulse Ox O2 Del Method 36.4 C L 80 18 109/73 97 Room Air 06/11/25 04:25 06/11/25 04:25 06/11/25 04:25 06/11/25 04:25 06/11/25 04:25 06/11/25 04:25 Oxygen Delivery Method Room Air Weight: 100 kg Body Mass Index (BMI) 39.0 Intake & Output: Intake and Output for Last 24 Hours 06/09/25 06/10/25 06/11/25 23:59 23:59 23:59 Intake Total 1939 / 2279 100 / 100 Balance 1939 / 2279 100 / 100 Lab / Micro Data 06/11/25 04:41 06/11/25 04:41 Labs: Laboratory Results - last 24 hr 06/11/25 04:41: WBC 7.1, RBC 3.59 L, Hgb 7.7 L, Hct 27.2 L, MCV 75.8 L, MCH 21.4 L, MCHC 28.3 L, RDW Std Deviation 53.1 H, RDW Coeff of Car 20.8 H, Plt Count 261, MPV 11.1, Immature Gran % (Auto) 0.800, Neut % (Auto) 70.3 H, Lymph % (Auto) 21.8, [place] % (Auto) 5.8, Eos % (Auto) 0.7, Baso % (Auto) 0.6, Absolute Neuts (auto) 5.0, Absolute Lymphs (auto) 1.55, Nucleated RBC % 0, Anisocytosis 1+, Sodium 138, Potassium 3.5, Chloride 104, Carbon Dioxide 22.5, Anion Gap 12, BUN 7, Creatinine 0.43 L, Estim Creat Clear Calc 188.29, Est GFR (MDRD) Non-Af 123, BUN/Creatinine Ratio 15.4, Glucose 113 H, Calcium 8.9 Micro: Microbiology 06/06/25 10:55 Blood Culture (Wb) - Right Hand Blood Culture - Preliminary 06/08/25 12:55 Blood Culture (Wb) - Anticubital Right Bacteria Detection (PCR) - Final Staphylococcus epidermidis 06/08/25 12:55 Blood Culture (Wb) - Anticubital Right Blood Culture - Preliminary Gram positive organism 06/06/25 10:12 Blood Culture (Wb) - Port Blood Culture - Preliminary Bacteroides fragilis 06/06/25 11:55 Urine, Clean Catch Urine 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 Given the presence of diverticular disease diverticulitis is the most likely etiology. Underlying neoplasm can not be excluded. Reactive lymphadenopathy seen in the mesorectal fat. Suspected fistulous tract extending from the affected rectal sigmoid colon into the right adnexa with numerous air-fluid levels present suggestive of tubo-ovarian abscess. Differential considerations would include fistulous tract from previous diverticulitis. Focal thickening along the greater curvature of the stomach likely reflective of patient's known malignancy. Lymph node adjacent to the greater curvature of the stomach in the left upper quadrant is concerning for local regional lymphatic spread the with additional metastatic disease to the liver and lung bases. Large anterior abdominal wall hernia containing loops of small and large intestine at the site of colostomy. Splenomegaly. Reading Location: [facility] Physical Exam Const alert and no apparent distress Constitutional Narrative: Up in chair. Nontoxic. HEENT head/scalp atraumatic Assessment & Plan Assessment/Plan (1) Sepsis: (2) Lactic acidosis: (3) Hypotension: PLAN: Plan Sepsis Patient is immunocompromised host on chemotherapy for metastatic colon cancer On presentation had hypotension with lactic acidosis, fever and leukocytosis however leukocytosis may be related to Neulasta Patient does have a Mediport in place Blood cultures and urine cultures obtained, sputum culture ordered if able to produce. Resp panel negative. MRSA PCR negative antibiotics with cefepime and vancomycin Treated with sepsis protocol and received 30 cc/kg body weight for fluid resuscitation due to hypotension and lactic acidosis. No norepi needed. Abdominal abscess Patient underwent a CAT scan today that showed circumferential thickening of the rectum likely diverticulitis. Reactive lymphadenopathy and mesorectal fat. Suspected fistulous tract extending from the affected rectosigmoid colon into the right adnexa with numerous air-fluid levels suggestive of tubo-ovarian abscess. Through [employer] I obtained the patient's CAT scan from [facility] on August 19 and at that time patient had multifocal pelvic abscesses. Question fistula communication with the sigmoid colon to the abscess eccentric to the right adnexa. I did have these images pushed to [facility] and requested to review by her surgeon, Dr. Cuevas who did her diverting colostomy as well as her port. The transfer liaison was able to get hold of Dr. Cuevas who did not review the images but stated that the patient had been referred over to [facility] and would recommend any transfer further inquiry be deferred to [facility]. I discussed with several providers at , finally discussing with Dr. Harding, who is familiar with the patient's case. She said the patient does not require surgery nor transfer. She recommended seeing if IR could place a drain. I discussed with Dr. Hill, he recommends 1 month of Augmentin. Bacteremia Gram negative keisha (Bacteroides fragilis) in from port, gram positive keisha in hand culture. on cefepime and vanc repeat BCx showing S. epi concern for abdominal etiology given the CAT scan findings as above Nausea and vomiting Resolved Suspect related to chemotherapy and illness. Continue continue home antiemetics to include olanzapine which she takes only for nausea related to chemo As needed IV antiemetics here to include Compazine and Zofran Metastatic colon adenocarcinoma Patient has had no surgical resection for this and options are being investigated Does have loop ileostomy related to intra-abdominal abscess Undergoing chemo and completed round 2 Patient had been seeing Dr. Lombardi but since referred over to [facility]. Chronic conditions: Microcytic anemia - baseline hemoglobin is unknown - Reviewed her data on her phone from outside hospital exact her baseline hemoglobin runs between 8 and 9. Iron low. Continue Iron. GERD- Continue home PPI Seasonal allergies- Continue home loratadine Obesity class II- BMI is 39.7- Recommend weight loss- Complicates treatment, prognosis, outcomes DVT prophylaxis- Lovenox 40 SQ twice daily CODE STATUS- Full code verified on admission
[2025-06-11 10:00] VITALS: BP 115/78; PULSE 90; RESP 16; TEMP 36.6; O2SAT 99
[2025-06-11] MEDS: Potassium Chloride Oral Tablet 10 MEQ PO (10:07)
--- NOTE | 2025-06-11 10:47 | DS.PCM_ITS ---
Providers Date of Admission: 06/06/25 Primary Care Physician: TAMIKA Montemayor Consultations 06/06/25 14:11 Consult: Meteorological Aide / Pulmonary Medicine Routine Consulting Provider: Intensivists/Pulmonary Med Reason for Consult: Sepsis in an immunocompromised host EMERGENT Consult: No Notified: Yes Date Notified: 06/06/25 Time Notified: 15:31 Method of Notification: Answering Service Method of Consult:: Telemedicine Comments:: ok to hold consult until am 06/09/25 08:03 Consult: Infectious Disease Routine Consulting Provider: Jesus Hill Reason for Consult: bacteremia EMERGENT Consult: No Notified: Yes Date Notified: 06/09/25 Time Notified: 08:10 Method of Notification: Answering Service Reason For Visit: SEPSIS IN THE SETTING OF IMMUNOSUPRESSION FROM Diagnosis Discharge Diagnosis (1) Sepsis: Status: Acute Code(s): A41.9 - Sepsis, unspecified organism (2) Lactic acidosis: Status: Acute Code(s): E87.20 - Acidosis, unspecified (3) Hypotension: Status: Acute Code(s): I95.9 - Hypotension, unspecified Plan Sepsis * Patient is immunocompromised host on chemotherapy for metastatic colon cancer * On presentation had hypotension with lactic acidosis, fever and leukocytosis however leukocytosis may be related to Neulasta * Patient does have a Mediport in place * Blood cultures and urine cultures obtained, sputum culture ordered if able to produce. Resp panel negative. MRSA PCR negative * antibiotics with cefepime and vancomycin * Treated with sepsis protocol and received 30 cc/kg body weight for fluid resuscitation due to hypotension and lactic acidosis. No norepi needed. Abdominal abscess * Patient underwent a CAT scan today that showed circumferential thickening of the rectum likely diverticulitis. Reactive lymphadenopathy and mesorectal fat. Suspected fistulous tract extending from the affected rectosigmoid colon into the right adnexa with numerous air-fluid levels suggestive of tubo- ovarian abscess. * Through [facility] ([place]) I obtained the patient's CAT scan from [facility] on August 19 and at that time patient had multifocal pelvic abscesses. Question fistula communication with the sigmoid colon to the abscess eccentric to the right adnexa. * I did have these images pushed to [facility] and requested to review by her surgeon, Dr. Cuevas who did her diverting colostomy as well as her port. The transfer liaison was able to get hold of Dr. Cuevas who did not review the images but stated that the patient had been referred over to [facility] and would recommend any transfer further inquiry be deferred to [facility]. * I discussed with several providers at , finally discussing with Dr. Harding, who is familiar with the patient's case. She said the patient does not require surgery nor transfer. She recommended seeing if IR could place a drain. * I discussed with Dr. Hill, he recommends 1 month of Augmentin. Bacteremia * Gram negative keisha (Bacteroides fragilis) in from port, gram positive keisha in hand culture. * on cefepime and vanc * repeat BCx showing S. epi * concern for abdominal etiology given the CAT scan findings as above Nausea and vomiting * Resolved * Suspect related to chemotherapy and illness. * Continue continue home antiemetics to include olanzapine which she takes only for nausea related to chemo * As needed IV antiemetics here to include Compazine and Zofran Metastatic colon adenocarcinoma * Patient has had no surgical resection for this and options are being investigated * Does have loop ileostomy related to intra-abdominal abscess * Undergoing chemo and completed round 2 * Patient had been seeing Dr. Lombardi but since referred over to [facility]. Chronic conditions: * Microcytic anemia - baseline hemoglobin is unknown - Reviewed her data on her phone from outside hospital exact her baseline hemoglobin runs between 8 and 9. Iron low. Continue Iron. * GERD- Continue home PPI * Seasonal allergies- Continue home loratadine * Obesity class II- BMI is 39.7- Recommend weight loss- Complicates treatment, prognosis, outcomes DVT prophylaxis- Lovenox 40 SQ twice daily CODE STATUS- Full code verified on admission Medications at Discharge Home Medications loratadine 10 mg tablet (Claritin) 10 mg PO DAILY 06/06/25 olanzapine 5 mg tablet 5 mg PO QHS 06/06/25 omeprazole 20 mg tablet,delayed release 20 mg PO DAILY 06/06/25 ondansetron HCl 8 mg tablet 8 mg PO Q8H PRN PRN nausea/vomiting 06/06/25 potassium chloride 10 mEq tablet,extended release 10 meq PO BID 06/06/25 prochlorperazine maleate 5 mg tablet 5 mg PO Q8H PRN nausea and vomiting 06/06/25 amoxicillin 875 mg-potassium clavulanate 125 mg tablet 1 tab PO BID #60 tabs 06/11/25 polysaccharide iron complex 150 mg iron capsule (Ferrex) 150 mg PO DAILY #30 caps 06/11/25 Hospital Course Operations None Procedures None Summary of Care Provided Hospital Course: Greater than 40-minutes spent on discharge. This is a 44-year-old female with a history of metastatic colon cancer undergoing chemotherapy. Also has a history of a diverting colostomy due to intra-abdominal and pelvic abscesses and fistulous. Patient presented as sepsis and but improved quickly but cultures were positive and her blood for different organisms. Infectious disease was consulted and patient had the abdomen pelvis CAT scan that showed diverticulitis as well as fistulous tract extending to the right adnexa with suggestive of tubo-ovarian abscess. I was able to get some records from [facility] back in August that showed similar fistula formation at that time but no not that abscess formation at that time. I spoke with [facility] and then [facility]. Dr. Cuevas of [facility] defer to [place] where the patient had been referred to. I spoke with several doctors quality worker tking with Dr. Harding who informed me that the patient is not a surgical candidate and did not require transfer but to review this with interventional radiology. I reviewed this with interventional radiology with Dr. Mendiola who stated that he would not be able to safely access that lesion. I discussed the case with Dr. Hill who recommended month of Augmentin. Explained to the patient that this may not adequately treat these infections as much the changes are chronic and she may be susceptible to further infections in the future. Patient expressed understanding. Patient to be discharged home today. Weight / BMI Weight Weight: 100 kg Body Mass Index (BMI) 39.0 ABG / Lab / Microbiology Data 06/11/25 04:41 06/11/25 04:41 Laboratory: Laboratory Results - last 24 hr 06/11/25 04:41: WBC 7.1, RBC 3.59 L, Hgb 7.7 L, Hct 27.2 L, MCV 75.8 L, MCH 21.4 L, MCHC 28.3 L, RDW Std Deviation 53.1 H, RDW Coeff of Car 20.8 H, Plt Count 261, MPV 11.1, Immature Gran % (Auto) 0.800, Neut % (Auto) 70.3 H, Lymph % (Auto) 21.8, [place] % (Auto) 5.8, Eos % (Auto) 0.7, Baso % (Auto) 0.6, Absolute Neuts (auto) 5.0, Absolute Lymphs (auto) 1.55, Nucleated RBC % 0, Anisocytosis 1+, Sodium 138, Potassium 3.5, Chloride 104, Carbon Dioxide 22.5, Anion Gap 12, BUN 7, Creatinine 0.43 L, Estim Creat Clear Calc 188.29, Est GFR (MDRD) Non-Af 123, BUN/Creatinine Ratio 15.4, Glucose 113 H, Calcium 8.9 Microbiology: Microbiology 06/06/25 10:12 Blood Culture (Wb) - Port Blood Culture - Final No growth in 5 days. 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 Given the presence of diverticular disease diverticulitis is the most likely etiology. Underlying neoplasm can not be excluded. Reactive lymphadenopathy seen in the mesorectal fat. Suspected fistulous tract extending from the affected rectal sigmoid colon into the right adnexa with numerous air-fluid levels present suggestive of tubo-ovarian abscess. Differential considerations would include fistulous tract from previous diverticulitis. Focal thickening along the greater curvature of the stomach likely reflective of patient's known malignancy. Lymph node adjacent to the greater curvature of the stomach in the left upper quadrant is concerning for local regional lymphatic spread the with additional metastatic disease to the liver and lung bases. Large anterior abdominal wall hernia containing loops of small and large intestine at the site of colostomy. Splenomegaly. Reading Location: [id number] D/C Instructions DC O2, CPAP, BIPAP Needs Home O2 Discharge instructions: No Meaningful Use Info Meaningful Use Meaningful Use Diagnoses (Choose all that apply): None applicable Discharge Plan Admission Admit Date/Time: 06/06/25 13:30 Primary Reason for Your Visit: Bacteremia Attending Provider: Malcolm Garcia Primary Care Provider: Abdulkadir Patel Consulting Providers: Alicia Mahan; Jesus Hill Discharge Orders/Prescriptions Prescriptions: New polysaccharide iron complex [Ferrex 150] 150 mg iron Capsule 150 mg PO DAILY Qty: 30 0RF amoxicillin-pot clavulanate 875-125 mg tablet 1 tab PO BID Qty: 60 0RF Continued prochlorperazine maleate 5 mg tablet 5 mg PO Q8H PRN (Reason: nausea and vomiting) Patient Comments: ALTERNATES WITH ZOFRAN ondansetron HCl 8 mg tablet 8 mg PO Q8H PRN PRN (Reason: nausea/vomiting) Patient Comments: ALTERNATES WITH COMPAZINE olanzapine 5 mg tablet 5 mg PO QHS potassium chloride 10 mEq tablet extended release 10 meq PO BID omeprazole 20 mg tablet,delayed release (DR/EC) 20 mg PO DAILY loratadine [Claritin] 10 mg tablet 10 mg PO DAILY Patient Comments: TAKES THE WEEK OF CHEMO Referrals / Follow Up: Bonifacio Lombardi DO [Med Staff - Active Staff, Oncology] - Within 1 Week Abdulkadir Patel PA [Primary Care Provider, Urgent Care] - Within 2 Weeks Disposition Disposition (needs filled in before D/C Order can be placed): Home, Self Care Charges/Coding Visit Charges Inpatient E&M: 60611 Disch Hosp >30min
--- NOTE | 2025-06-11 12:26 | CASEMGMT ---
Patient has order for discharge. RN CM in to discuss needs at discharge. Patient denies needs or help at discharge. Patient had no further questions or concerns.
--- NOTE | 2025-06-11 13:04 | PHA.DC.MR.R ---
Pharmacy [facility] Reconciliation Pharmacy Service has performed discharge medication reconciliation for this patient. The patient's discharge medication list was reviewed for discrepancies and discrepancies were resolved. Medications at Discharge Home Medications loratadine 10 mg tablet (Claritin) 10 mg PO DAILY 06/06/25 olanzapine 5 mg tablet 5 mg PO QHS 06/06/25 omeprazole 20 mg tablet,delayed release 20 mg PO DAILY 06/06/25 ondansetron HCl 8 mg tablet 8 mg PO Q8H PRN PRN nausea/vomiting 06/06/25 potassium chloride 10 mEq tablet,extended release 10 meq PO BID 06/06/25 prochlorperazine maleate 5 mg tablet 5 mg PO Q8H PRN nausea and vomiting 06/06/25 amoxicillin 875 mg-potassium clavulanate 125 mg tablet 1 tab PO BID #60 tabs 06/11/25 polysaccharide iron complex 150 mg iron capsule (Ferrex) 150 mg PO DAILY #30 caps 06/11/25
== END 2025-06-11 12:55 | disposition home or self-care (01) | DRG 872 ==
LOC: ED 13:20 → ICU 13:54 → PCU 06-09 16:02
PROVIDERS: Admitting Provider Internal Medicine; Emergency Provider Emergency Medicine; PCP Physician Assistant
DX: A41.50 Gram-negative sepsis, unspecified (principal); E87.20 Acidosis, unspecified; D84.821 Immunodeficiency due to drugs; N82.4 Other female intestinal-genital tract fistulae; C18.9 Malignant neoplasm of colon, unspecified; K57.32 Diverticulitis of large intestine without perforation or abscess without bleeding; E86.9 Volume depletion, unspecified; D50.9 Iron deficiency anemia, unspecified; E66.812 Obesity, class 2; Z93.3 Colostomy status; K21.9 Gastro-esophageal reflux disease without esophagitis; J30.2 Other seasonal allergic rhinitis; I95.9 Hypotension, unspecified; R11.2 Nausea with vomiting, unspecified; N70.13 Chronic salpingitis and oophoritis; T45.1X5A Adverse effect of antineoplastic and immunosuppressive drugs, initial encounter; Z68.39 Body mass index [BMI] 39.0-39.9, adult; Z93.2 Ileostomy status; Z95.9 Presence of cardiac and vascular implant and graft, unspecified; Z79.899 Other long term (current) drug therapy
CPT/HCPCS: 36415; 36591; 71046; 74177; 80048; 80053; 80202; 81001; 82607; 82728; 82746; 83540; 83550; 83605; 83690; 83735; 84100; 84443; 85025; 85610; 85730; 87040; 87077; 87086; 87088; 87149; 87186; 87631; 87633; 87641; 94668; 97802; 97803; 99285; Q9967; A4216; J2405